=== PATIENT | male | born 1950 | race Caucasian/White ===

== ENCOUNTER 2019-08-14 00:38 | Outpatient (CLI) | payer MEDICARE, SELFPAY | END 2019-08-14 00:39 | disposition home or self-care (01) | LOC: ANHCOVIDDT 00:39 | PROVIDERS: PCP Family Medicine; Visit Provider Internal Medicine Gastroenterology | DX: Z01.818 Encounter for other preprocedural examination (principal); Z11.59 Encounter for screening for other viral diseases | CPT/HCPCS: 87635; C9803; U0003 ==

== ENCOUNTER 2019-08-17 01:37 | Day surgery (SDC) | payer MEDICARE, SELFPAY ==
[2019-08-12 10:39] VITALS: BMI 24.4
[2019-08-17 09:10] VITALS: BP 115/74; PULSE 75; RESP 16; TEMP 36.1; O2SAT 98; BMI 23.2
--- NOTE | 2019-08-17 09:21 | WPDANESEPPF ---
Anes - Initial Pre Proc Eval Procedure: Operation Date: 08/17/19 10:30 Proposed Procedures p Screening Colonoscopy - Valente Christian MD Date/Time: 08/17/19 09:21 Surgeon: Valente Christian MD Pre Op Diagnosis: Neoplasm Screening Patient Data Age: 69 Gender: M Height: 6 ft 1 in Weight: 79.8 kg Last Vital Signs Temp 36.1 C L 08/17/19 09:10 Pulse 75 08/17/19 09:10 Resp 16 08/17/19 09:10 BP 115/74 08/17/19 09:10 Pulse Ox 98 08/17/19 09:10 Allergies Allergy/AdvReac Type Severity Reaction Status Date / Time No Known Allergies Allergy Verified 08/17/19 09:09 Home Medications Medication Instructions Recorded Confirmed Type clopidogrel 75 mg tablet 75 mg PO DAILY 02/19/19 08/12/19 History rosuvastatin 20 mg tablet 20 mg PO DAILY 02/19/19 08/12/19 History levothyroxine 50 mcg tablet 50 mcg PO DAILY #90 tablet 05/28/19 08/12/19 Rx fluticasone propionate 50 2 spray INTRANASAL DAILY #16 ml 06/11/19 08/12/19 Rx mcg/actuation nasal spray,suspension albuterol sulfate 90 mcg/actuation See Rx Instructions INHALATION Q4H 06/15/19 08/12/19 Rx aerosol inhaler #6.7 gm aspirin 81 mg chewable tablet 81 mg PO DAILY 07/28/19 08/12/19 History glucos sul [id number]-C-Mn 1 cap PO DAILY 08/12/19 08/12/19 History [Glucosamine Chondroitin] Patient hx anesthesia problems: none Family hx anesthesia problems: none PMFSH Past Medical History Medical History Atherosclerotic heart disease of [place] coronary artery with other forms of angina pectoris Hypothyroidism Ischemic dilated cardiomyopathy (~2009) Nonrheumatic mitral (valve) insufficiency (~2009) Nonrheumatic tricuspid (valve) insufficiency (~2009) Other and unspecified hyperlipidemia Unspecified diastolic (congestive) heart failure (~2009) Surgical History Surgical History History of cholecystectomy (~03/2011) History of PTCA (~02/2010) 12/29/1997 @ 47 y/o LAD stent x1 11/08/2003 @ 53 y/o LAD stent x2 06/25/2007 @ 57 y/o PCI diagonal 05/21/2006 @ 56 years: PCI to LAD 10/23/2004 @ 54 years PTCA to OM 02/2010 :last stent 09/2016: PCI to LAD Dr. 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 Questions were solicited and answers provided to the satisfaction of the patient/family/POA.
[2019-08-17] MEDS: LACTATED RINGERS 1,000 ML 150 ML IV CONT (09:25)
--- NOTE | 2019-08-17 10:57 | WPDHPUPDATE1 ---
History and Physical Update Update Date/Time: 08/17/19 10:57 History and Physical has been reviewed, including an updated exam of the patient. There are NO changes in the patient's condition. Risks, benefits, and alternatives have been discussed and questions answered. Patient agrees to proceed with procedure.
[2019-08-17 11:21] VITALS: BP 102/67; PULSE 64; RESP 20; O2SAT 98
[2019-08-17 11:31] VITALS: BP 117/65; PULSE 62; RESP 16; O2SAT 98
[2019-08-17 11:39] VITALS: BP 112/68; PULSE 56; RESP 16; O2SAT 100
== END 2019-08-17 11:50 | disposition home or self-care (01) ==
PROVIDERS: PCP Family Medicine; Visit Provider Internal Medicine Gastroenterology
PROC: 0DJD8ZZ Inspection of Lower Intestinal Tract, Via Natural or Artificial Opening Endoscopic (ICD-10-PCS; CPT 45378; principal; 2019-08-17 10:30)
DX: Z12.11 Encounter for screening for malignant neoplasm of colon (principal); R19.5 Other fecal abnormalities; D12.2 Benign neoplasm of ascending colon; D12.4 Benign neoplasm of descending colon; K57.30 Diverticulosis of large intestine without perforation or abscess without bleeding; K64.8 Other hemorrhoids; I25.10 Atherosclerotic heart disease of native coronary artery without angina pectoris; E78.5 Hyperlipidemia, unspecified; I50.30 Unspecified diastolic (congestive) heart failure; I34.0 Nonrheumatic mitral (valve) insufficiency; I36.1 Nonrheumatic tricuspid (valve) insufficiency; I25.5 Ischemic cardiomyopathy; Z79.02 Long term (current) use of antithrombotics/antiplatelets; Z79.82 Long term (current) use of aspirin; Z95.5 Presence of coronary angioplasty implant and graft; Z87.891 Personal history of nicotine dependence
CPT/HCPCS: 45385; 88305; J2704; J7120

== ENCOUNTER 2020-05-16 19:31 | Observation (INO) | payer MEDICARE, SELFPAY ==
[2020-05-16] VITALS (9 sets, daily range): BP systolic 136–159; BP diastolic 79–106; PULSE 81–94; RESP 12–20; TEMP 36.4; O2SAT 95–100
--- NOTE | ~2020-05-16 | NM_ITS ---
EXAMINATION: NM kris stress w perfusion DATE: 05/17/2020 14:31 INDICATION: Coronary artery disease. Elevated troponins. TECHNIQUE: Rest images were obtained following intravenous administration of 7 mCi Tc99m tetrofosmin (Myoview). The patient was infused intravenously with Lexiscan (Regadenoson). Then, 21.2 mCi Tc99m te trofosmin (Myoview) was administered intravenously, and stress images were obtained. Data was reconst ructed into short axis and horizontal and vertical long axis SPECT images. Gated SPECT images were al so obtained. COMPARISON: None. FINDINGS: Moderate severity nonreversible perfusion defect consistent with infarct involving the inferior apica l,, lateral apical, mid anterolateral, inferolateral and inferior and basilar anterolateral inferolat eral and inferior segments. Additional mild nonreversible perfusion defect consistent with infarct in the mid anteroseptal and inferoseptal segments. Small region of mild reversible ischemia at the apex . There is normal left ventricular chamber size and wall motion. Mildly decreased left ventricular ej ection fraction which measures 41%. IMPRESSION: 1. Large nonreversible infarct involving the majority of the circumflex coronary artery vascular dist ribution and smaller amount of the right coronary artery vascular distribution as detailed above. 2. Small region of mild reversible ischemia at the apex. 3. Left ventricular ejection fraction measuring 41%. Reviewed, dictated and finalized at location A. ING OPERATOR IMPRESSION: 1. Large nonreversible infarct involving the majority of the circumflex coronar y artery vascular distribution and smaller amount of the right coronary artery vascular distribution as detailed above. 2. Small region of mild reversible ischemia at the apex. 3. Left ventricular ejection fraction measuring 41%.
--- NOTE | ~2020-05-16 | XR_ITS ---
EXAMINATION: XR chest 2V EXAM DATE: 05/16/2020 20:04 INDICATION: Chest pain in shoulders, weakness, shortness of breath. History of myocardial infarction. TECHNIQUE: Frontal and lateral projections of the chest obtained and reviewed. Comparison is made to prior examination from 04/27/2018. FINDINGS: Left anterior descending coronary artery stent. The lungs are clear. There are no pleural effusions. The cardiomediastinal silhouette is within normal limits. There is no pneumothorax susp ected. There are bony degenerative changes. IMPRESSION: No acute cardiopulmonary findings. Reviewed, dictated and finalized at location A. INSERTER
--- NOTE | 2020-05-16 19:34 | ECG_ITS ---
Measurements Intervals [place] Rate: 94 P: 64 HI: 166 QRS: -84 QRSD: 144 T: 28 QT: 365 QTc: 459 Interpretive Statements SINUS RHYTHM VENTRICULAR PREMATURE COMPLEXES RIGHT BUNDLE BRANCH BLOCK LEFT ANTERIOR FASCICULAR BLOCK CONSIDER INFERIOR INFARCT, AGE INDETERMINATE BASELINE ARTIFACT- V1-V2 ABNORMAL ECG Electronically Signed On 05-17-2020 7:03:06 COMPLAINT INSPECTOR by Hollis Reynoso D.O.
[2020-05-16 19:54] LABS: Basophils Absolute Auto 0.1 K/mm3 (0.0-0.1); Basophils Percent Auto 0.5 % (0.2-1.2); Eosinophils Absolute Auto 0.1 K/mm3 (0-0.3); Eosinophils Percent Auto 0.7 % (0-4.4); Hematocrit 43.8 % (42.0-52.0); Hemoglobin 14.9 g/dL (14.0-18.0); Immature Granulocyte Absolute 0.03 K/mm3 (0.00-0.031); Immature Granulocyte Percent A 0.3 % (0-0.5); Lymphocytes Absolute Auto 1.39 K/mm3 (0.9-3.2); Lymphocytes Percent Auto 14.7 % (18.3-44.2); Mean Corpuscular Volume 97.1 fl (80-100); Monocytes Absolute Auto 1.1 K/mm3 (0.1-0.6); Monocytes Percent Auto 11.8 % (2.6-8.5); Neutrophils Absolute Auto 6.8 K/mm3 (1.3-6.7); Platelet Count Result 179 k/mm3 (150-375); Red Blood Count 4.51 M/mm3 (4.6-6.20); Red Cell Distribution Width 13.2 % (11.5-14.5); White Blood Count 9.4 K/mm3 (4.5-10.0)
--- NOTE | 2020-05-16 20:00 | ED.CHESTPAIN ---
HPI - Chest Pain General Chief Complaint: Chest Pain Stated Complaint: tired, SOB, nausea Time Seen by Provider: 05/16/20 19:59 Source: patient and family Mode of arrival: ambulatory Limitations: no limitations History of Present Illness HPI narrative: 70-year-old male History of coronary artery disease and by his count 14 stents Patient has a new riding snowplow which he used this afternoon to clear his and, generously, several of his neighbors driveways This took him about an hour and 1/2 to 2 hours with a break or two included He did not have to do any walking or shoveling, but reports that turning the machine can be somewhat exertional and that of course he was out in the quite cold weather the whole time After finishing he was in the house and basically felt mildly short of breath, some vague mild tightness or discomfort in the chest, and a sense of overwhelming general fatigue Related Data Home Medications Medication Instructions Recorded Confirmed clopidogrel 75 mg tablet 75 mg PO DAILY 02/19/19 08/12/19 rosuvastatin 20 mg tablet 20 mg PO DAILY 02/19/19 08/12/19 aspirin 81 mg chewable tablet 81 mg PO DAILY 07/28/19 08/12/19 glucos sul [id number]-C-Mn 1 cap PO DAILY 08/12/19 08/12/19 [Glucosamine Chondroitin] Allergies Allergy/AdvReac Type Severity Reaction Status Date / Time No Known Allergies Allergy Verified 08/17/19 09:09 Review of Systems Review of Systems: All systems reviewed & are unremarkable except as noted in HPI and below Constitutional: Constitutional: Denies chills, Reports fatigue, Denies fever(s), Denies headache(s) and Reports weakness Eyes: Eyes: Reports no additional eye complaints and Denies change in vision ENT: Denies headache(s), Denies epistaxis, Denies nasal congestion and Denies sore throat Cardiovascular: Cardiovascular: Reports chest pain, Denies leg edema, Denies palpitations and Denies dyspnea Respiratory: Respiratory: Denies cough, Reports dyspnea and Denies wheezing Gastrointestinal: Gastrointestinal: Denies abdominal pain, Denies diarrhea, Denies nausea and Denies vomiting Genitourinary: Genitourinary: Denies hematuria, Denies dysuria and Denies urinary frequency Musculoskeletal: Musculoskeletal: Denies deformity, Denies arthralgias, Denies joint swelling, Denies muscle weakness and Denies numbness Integumentary/Breasts: Skin/Breast: Denies rash and Denies wounds Neurologic: Denies headache(s), Denies focal weakness, Denies numbness and Reports weakness Psychiatric: Psychiatric: Reports no additional psychiatric complaints Endocrine: Endocrine: Reports fatigue and Denies palpitations Hematologic/Lymphatic: Hematologic/Lymphatic: Denies easy bleeding and Denies easy bruising Allergic/Immunologic: Allergic/Immunologic: Denies wheezing PMFSH Past Medical History Medical History (Updated 05/17/20 @ 00:04 by Kan Cantor MD) Atherosclerotic heart disease of [place] coronary artery with other forms of angina pectoris Hypothyroidism Ischemic dilated cardiomyopathy (~2009) Nonrheumatic mitral (valve) insufficiency (~2009) Nonrheumatic tricuspid (valve) insufficiency (~2009) Other and unspecified hyperlipidemia Unspecified diastolic (congestive) heart failure (~2009) Surgical History Surgical History History of cholecystectomy (~03/2011) History of PTCA (~02/2010) 12/29/1997 @ 47 y/o LAD stent x1 11/08/2003 @ 53 y/o LAD stent x2 06/25/2007 @ 57 y/o PCI diagonal 05/21/2006 @ 56 years: PCI to LAD 10/23/2004 @ 54 years PTCA to OM 02/2010 :last stent 09/2016: PCI to LAD Dr. Santana Presence of coronary angioplasty implant and graft (~2009) Family History Family History Father Heart disease Mother Heart disease Sibling Heart disease Other Family history of coronary artery disease Social History Social History (Reviewed 08/16
[2020-05-16 20:04] LABS: Prothrombin Time 13.5 Seconds (11.1-14.7)
[2020-05-16 20:05] LABS: Partial Thromboplastin Time 27.3 SECONDS (22.3-36.8)
[2020-05-16 20:07] LABS: Anion Gap 7 mmol/L (8-16); Blood Urea Nitrogen 10 mg/dL (9-20); Calcium 9.5 mg/dL (8.4-10.2); Carbon Dioxide 30 mmol/L (22-30); Chloride 104 mmol/L (98-107); Estimated CRCL calculation 93 ml/min; Estimated Glomerular Filt Rate > 60; Glucose 98 mg/dL (75-110); Potassium 3.7 mmol/L (3.4-5.0); Sodium 141 mmol/L (137-145)
[2020-05-16 20:19] LABS: Troponin I 0.027 ng/mL (0.000-0.034)
--- NOTE | 2020-05-16 20:21 | PC.NURSE ---
Took patient 324mg of Aspirin. Per pt I took 8 of them before I came in
[2020-05-16 22:49] LABS: Troponin I 0.048 ng/mL (0.000-0.034)
--- NOTE | 2020-05-16 23:00 | PC.NURSE ---
Assumed care of Pt. report from Mayra RN
[2020-05-16] MEDS: ENOXAPARIN 80 MG/0.8 ML SYRINGE SUB-Q (23:19)
[2020-05-17] VITALS (11 sets, daily range): BP systolic 116–149; BP diastolic 73–95; PULSE 65–107; RESP 16–21; TEMP 35.8–36.6; O2SAT 97–98; BMI 25.6
--- NOTE | 2020-05-17 | ECHO_ITS ---
Patient Info Name: Venkat Aranda Age: 70 years : 1950 Gender: Male Ht: 73 in Wt: 194 lbs BSA: 2.14 m2 HR: 73 bpm BP: 135 / 83 mmHg Heart Rhythm: Sinus Rhythm Technical Quality: Good Exam Date: 05/17/2020 2:51 PM Exam Location: [facility] Pulmonary Patient Status: Outpatient Admit Date: 05/17/2020 Staff Ordering Physician: Marcelo Sen MD Open Tenter Operator: José Luis Huff, YUSUF, RT Attending Provider: Mason Vasquez MD Referring Physician: Francy JOSEPH; Exam Type: CA echo doppler color flow Study Info Indications I25.9 - Chronic ischemic heart disease, unspecified Complete two-dimensional, color flow and Doppler transthoracic echocardiogram is performed. Strain analysis performed. Summary 1. Complete two-dimensional, color flow and Doppler transthoracic echocardiogram is performed. 2. Left ventricular chamber dimension is mildly enlarged. 3. Left ventricular systolic function is mildly reduced, estimated at 40-45%. 4. There is mildly increased left ventricular wall thickness. 5. Global longitudinal strain is abnormal at -15 %. 6. The left ventricular diastolic function is grade I diastolic dysfunction. 7. The mid anteroseptal is akinetic. 8. The apex, inferior wall, mid inferoseptal, basal anteroseptal, and mid inferolateral wall are hypokinetic. 9. Strain analysis performed. 10. There is mild mitral valve regurgitation. Left Ventricle Left ventricular chamber dimension is mildly enlarged. Left ventricular systolic function is mildly reduced, estimated at 40-45%. There is mildly increased left ventricular wall thickness. The left ventricular diastolic function is grade I diastolic dysfunction. Global longitudinal strain is abnormal at -15 %. The mid anteroseptal is akinetic. The apex, inferior wall, mid inferoseptal, basal anteroseptal, and mid inferolateral wall are hypokinetic. All other elliott appear normal. Right Ventricle Right ventricular chamber dimension is normal. Right ventricular systolic function is normal. Left Atria Left atrial chamber dimension is normal. Right Atria Right atrial chamber dimension is normal. Atrial Septum Intact interatrial septum visualized by color flow imaging. Aortic Valve The aortic valve is trileaflet. There is mild aortic valve sclerosis. There is no aortic valve stenosis. There is trace aortic valve regurgitation. Pulmonic Valve The pulmonic valve is normal. There is no pulmonic valve stenosis. There is trace pulmonic regurgitation. Mitral Valve The mitral valve has normal leaflets. There is no mitral valve stenosis. There is mild mitral valve regurgitation. Tricuspid Valve The tricuspid valve leaflets are normal. There is no significant tricuspid valve stenosis. There is trace tricuspid valve regurgitation. Pericardium/Pleural The pericardium appears normal. There is no pericardial effusion. Inferior Vena Cava Dilated inferior vena cava with <50% collapse upon inspiration consistent with elevated right atrial pressure, 10 mmHg. Aorta The aortic root size at the sinus of Valsalva is normal. The prox ascending aorta size is normal. Left Ventricular Outflow Tract Name Value Normal LVOT 2D LVOT Diamet
--- NOTE | 2020-05-17 00:41 | PM.IMHP ---
H&P: HPI History of Present Illness Date/Time: 05/17/20 00:41 Chief Complaint: Generalized weakness++ Narrative: This is a 70 year old Caucsian male with known history of ischemic cardiomyopathy and CAD w/ 14 coronary artery stents placed in the past and presented to the hospital [facility] with a complaint of generalized fatigue, nausea and shoulder discomfort. The patient was riding his slowplow outside yesterday and when he was done he was walking back into the house when he started to feel very nauseated, extremely tired, short of breath, with bilateral shoulder discomfort. He believes his shoulders were hurting from steering the snowplow. He went inside and laid down and felt better when he woke up but still felt very weak. He clearly DENIES any CHEST PAIN and states that he only has had mild shoulder discomfort. He also denies any fever, chills, cough, wheezing, diaphoresis, abdominal pain, dysuria, hematuria, diarrhea, rectal bleeding, or LE swelling. The patient believes that he simply overexerted himself today. The patient was evaluated in the ER tonight and found to have a mildly elevated troponin of 0.048. ER provider has consulted Cardiology who has asked that we admit the patient so they can evaluate him. The patient was anticoagulated with Lovenox per Cardiology tonight. No other complaints at this time. The patient normally gets his cardiology care at [facility]. Review of Systems Review of Systems: All systems reviewed & are unremarkable except as noted in HPI and below PMFSH Past Medical History Medical History Atherosclerotic heart disease of [place] coronary artery with other forms of angina pectoris Hypothyroidism Ischemic dilated cardiomyopathy (~2009) Nonrheumatic mitral (valve) insufficiency (~2009) Nonrheumatic tricuspid (valve) insufficiency (~2009) Other and unspecified hyperlipidemia Unspecified diastolic (congestive) heart failure (~2009) Surgical History Surgical History History of cholecystectomy (~03/2011) History of PTCA (~02/2010) 12/29/1997 @ 47 y/o LAD stent x1 11/08/2003 @ 53 y/o LAD stent x2 06/25/2007 @ 57 y/o PCI diagonal 05/21/2006 @ 56 years: PCI to LAD 10/23/2004 @ 54 years PTCA to OM 02/2010 :last stent 09/2016: PCI to LAD Dr. 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 Gender identity (if verbalized by the patient): Male Spiritual care concerns: No Agree to blood products: Yes Meds Home Medications and Allergies Home Medications Medication Instructions Recorded Confirmed Type clopidogrel 75 mg tablet 75 mg PO DAILY 02/19/19 08/12/19 History rosuvastatin 20 mg tablet 20 mg PO DAILY 02/19/19 08/12/19 History fluticasone propionate 50 2 spray INTRANASAL DAILY #16 ml 06/11/19 08/12/19 Rx mcg/actuation nasal spray,suspension albuterol sulfate 90 mcg/actuation See Rx Instructions INHALATION Q4H 06/15/19 08/12/19 Rx aerosol inhaler #6.7 gm aspirin 81 mg chewable tablet 81 mg PO DAILY 07/28/19 08/12/19 History glucos sul [id number]-[id number]-C-Mn 1 cap PO DAILY 08/12/19 08/12/19 History [Glucosamine Chondroitin] levothyroxine 50 mcg tablet 50 mcg PO DAILY #90 tablet 12/27/19 Rx li
--- NOTE | 2020-05-17 00:52 | ADMGEN ---
This patient, Venkat Aranda, was admitted to IMU Room 231-01. Patient/family oriented to hospital policies and general routines including ID bracelet, bed and alarms, visiting hours, pain management, procedures, bathroom and other care routines, personal items, smoking policy, room service/diet, and visiting hours. Information on how to activate the Rapid Response Team has been discussed. Patient/Family are encouraged to report perceived risks to care and to ask questions if they do not understand what they are told or what they should do.
--- NOTE | 2020-05-17 00:59 | ECG_ITS ---
Measurements Intervals [place] Rate: 81 P: 71 SC: 155 QRS: -43 QRSD: 153 T: 50 QT: 414 QTc: 483 Interpretive Statements SINUS RHYTHM VENTRICULAR PREMATURE COMPLEXES LEFT AXIS DEVIATION RIGHT BUNDLE BRANCH BLOCK ABNORMAL ECG Electronically Signed On 05-17-2020 7:07:03 CAN DRYER by Hollis Reynoso D.O.
[2020-05-17 02:36] LABS: Troponin I 0.036 ng/mL (0.000-0.034)
[2020-05-17] MEDS: CLOPIDOGREL BISULFATE 75 MG TABLET PO (09:16)
[2020-05-17] MEDS: LEVOTHYROXINE SODIUM 50 MCG TABLET PO (09:16)
[2020-05-17] MEDS: ROSUVASTATIN 10 MG TABLET 20 MG PO (09:17)
[2020-05-17] MEDS: ASPIRIN 81 MG CHEWABLE TABLET PO (09:17)
--- NOTE | 2020-05-17 11:21 | PM.CNCAR ---
Assessment and Plan Assessment and plan (1) Ischemic dilated cardiomyopathy: Onset Date: ~2009 Code(s): I25.5 - Ischemic cardiomyopathy; I42.0 - Dilated cardiomyopathy Status: Acute Assessment and Plan: Will order 2D echocardiogram Doppler. Previous echocardiogram showed ejection fraction 35-40%. (2) Nonrheumatic tricuspid (valve) insufficiency: Onset Date: ~2009 Code(s): I36.1 - Nonrheumatic tricuspid (valve) insufficiency Status: Acute (3) Atherosclerotic heart disease of [place] coronary artery with other forms of angina pectoris: Code(s): I25.118 - Atherosclerotic heart disease of [place] coronary artery with other forms of angina pectoris Status: Acute Assessment and Plan: Multiple stents in the past. Most recent PCI in 2018 to the LAD and ramus. Continue dapt, statin. Enoxaparin to be given. Will add metoprolol as detailed below. (4) Elevated troponin: Code(s): R77.8 - Other specified abnormalities of plasma proteins Status: Acute Assessment and Plan: Probably related to a small non ST elevation myocardial infarction but uncertain if this is from a true plaque rupture or a type 2 infarction from significant hypertension that he presented with in the emergency department. Lovenox 1 mg per kg subcu x1. Continue aspirin and clopidogrel. Will add metoprolol 25 mg p.o. b.i.d. and continue statin. I did have a conversation with the patient regarding proceeding with a coronary angiogram to define his anatomy verses a symptom limited non exercise stress test in the form of a Lexiscan myocardial perfusion study. If there is a small defect, will likely proceed with medical management let him go home and follow up with his primary line staker Dr. Santana. If however he has a moderate or large ischemic defect, he will be capped and an angiogram performed here. (5) Nonrheumatic mitral (valve) insufficiency: Onset Date: ~2009 Code(s): I34.0 - Nonrheumatic mitral (valve) insufficiency Status: Acute Assessment and Plan: Echocardiogram is ordered (6) Hyperlipidemia: Qualifiers: Hyperlipidemia type: unspecified Qualified Code(s): E78.5 - Hyperlipidemia, unspecified Code(s): E78.5 - Hyperlipidemia, unspecified Status: Chronic Assessment and Plan: Continue statin History of Present Illness History of Present Illness Consult date/time: 05/17/20 11:21 Requesting physician: Kan Cantor MD Consult reason: chest pain Reason For Visit: cad, cp, elevated troponin Narrative: Date of service 05/17/2020 History: Patient 70-year-old male who has history of ischemic cardiomyopathy and coronary disease. He follows with Dr. Santana at [facility]. He reportedly has 14 stents. Details of this are not known however. He presented to hospital yesterday after having some significant weakness. Patient was outside on personal snow plow and was outside for significant period time. Whenever he parked the snow plow in the barn and walk back to the house he started develop some significant shortness of breath, extreme fatigue and tiredness. By the time he went inside and sat down his shortness of breath improved but he started developed bilateral shoulder pain. He states that the soreness in his shoulders could of been using the snow plow but did not have power steering. Regardless though his soreness symptoms in the shoulders lasted about an hour to an hour and a half and then gradually subsided. Because of some lingering symptoms of feeling tired and weak, he came to the hospital for further evaluation. He was in a normal rhythm with a right bundle-branch block and left anterior fascicular block. Otherwise he had been feeling well and denies any chest pain, other shortness of breath, syncope, presyncope, paroxysmal nocturnal dyspnea, orthopnea, edema palpitations. Last echocardiogram showed ejection fraction 35-40% with s
--- NOTE | 2020-05-17 11:45 | PCOTNOTE ---
Patient evaluated by PT this AM. PT reports that patient is functioning independently and safely. She states that OT evaluation is not recommended as the patient is functioning at his baseline and no skilled therapy is needed during this admission. Called Dr. Rico to inform her of this and she is in agreement with discharging the patient from OT. D/C orders have been entered.
--- NOTE | 2020-05-17 11:54 | EST_ITS ---
Patient Info Name: Venkat Aranda Age: 70 years : 1950 Gender: Male Ht: 73 in Wt: 194 lbs BSA: 2.14 m2 Exam Date: 05/17/2020 1:20 PM Exam Location: [facility] Stress Patient Status: Inpatient Admit Date: 05/17/2020 Staff Ordering Physician: Marcelo Sen MD Attending Provider: Mason Vasquez MD Exercise Technologist: José Luis Huff RDCS, RT Exercise Physician: Marcelo Sen MD Exam Type: CA stress kris w NM Study Info A regadenoson stress test was performed. Summary 1. Please correlate with nuclear medicine images, reported separately. 2. No abnormal ST-T wave changes with lexiscan. Protocol: Lexiscan Stress ECG Details Stage: REST Duration (min): 3 min : 24 sec HR (bpm): 76 SBP (mmHg): 135 DBP (mmHg): 83 Stage: REST Duration (min): 7 min : 53 sec HR (bpm): 82 SBP (mmHg): 135 DBP (mmHg): 83 Stage: STAGE 1 Duration (min): 1 min : 0 sec HR (bpm): 95 SBP (mmHg): 139 DBP (mmHg): 83 Stage: RECOVERY Duration (min): 1 min : 0 sec HR (bpm): 102 SBP (mmHg): 139 DBP (mmHg): 83 Stage: RECOVERY Duration (min): 2 min : 0 sec HR (bpm): 98 SBP (mmHg): 139 DBP (mmHg): 83 Stage: RECOVERY Duration (min): 3 min : 0 sec HR (bpm): 96 SBP (mmHg): 136 DBP (mmHg): 76 Stage: RECOVERY Duration (min): 4 min : 0 sec HR (bpm): 88 SBP (mmHg): 136 DBP (mmHg): 76 Stage: RECOVERY Duration (min): 5 min : 0 sec HR (bpm): 97 SBP (mmHg): 135 DBP (mmHg): 80 Stage: RECOVERY Duration (min): 5 min : 4 sec HR (bpm): 94 SBP (mmHg): 135 DBP (mmHg): 80 Rest HR: 82 bpm Peak HR: 105 bpm Rest Sys BP: 135 mmHg Peak Sys BP: 139 mmHg Max Pred HR: 148 bpm % Max Pred HR: 71 % Target HR: 126 bpm Max RPP: 14,595 bpm*mmHg Target HR Summary: Hemodynamic response to exercise was normal BP Response: Normal blood pressure response Termination Reason: Completed protocol Cardiac Symptoms: None Total Time: 1 min : 0 sec Rest Montalvo BP: 83 mmHg Peak Montalvo BP: 83 mmHg Total Dose: 0.4 mg Resting ECG Normal sinus rhythm. Right bundle branch block. LAFB, PVC. Stress ECG No abnormal ST/T wave changes with exercise. Arrhythmias Frequent PVCs. Report Signatures
[2020-05-17] MEDS: METOPROLOL TARTRATE 25 MG TABLET PO (14:19)
--- NOTE | 2020-05-17 16:45 | PM.DS ---
DS: Admitting Diagnosis Admitting Diagnosis Admitting Diagnosis: (1) Generalized weakness: (2) Elevated troponin: (3) CAD (coronary artery disease): (4) Hypothyroidism: (5) Unspecified diastolic (congestive) heart failure: (6) Hyperlipidemia: DS: Summary Hospital Course Hospital Course: This is a 70 year old male with known history of ischemic cardiomyopathy and CAD w/ 14 coronary artery stents placed in the past and presented to the hospital with a complaint of generalized fatigue, nausea and shoulder discomfort. 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 He went inside and laid down and felt better when he woke up but still felt very weak. He denies any chest pain and states that he only has had mild shoulder discomfort. He also denied any fever, chills, cough, wheezing, diaphoresis, abdominal pain, dysuria, hematuria, diarrhea, rectal bleeding, or LE swelling. The patient believes that he overworked himself. The patient was evaluated in the ER and found to have a mildly elevated troponin of 0.048. ER provider consulted Cardiology . The patient was anticoagulated with Lovenox per Cardiology . The patient normally gets his cardiology care at [facility]. Patient was admitted to telemetry unit for close monitoring, further evaluation and treatment. A Cardiology consult was obtained. Patient underwent Lexiscan stress test Above study was low yielding and patient was discharged home and will follow up in the outpatient setting with his usual Hot Roll Laminator No events took place during this admission Going home patient was started on Metoprolol and Nitroglycerin Time Spent with Patient Time attestation: Total time spent providing and/or coordinating discharge services: Exam Const: General: cooperative, comfortable, well developed, alert and awake Nutritional Appearance: average body habitus Orientation/consciousness: patient oriented x3 HENMT: Head: normocephalic Ears: hearing grossly normal bilaterally General nose exam: Normal external nose present Face and sinus: normal facial exam Eyes: Pupils: Equal, round and reactive pupils present EOM: EOMs intact bilaterally Neck: Neck: no lymphadenopathy and no JVD Lymphatic: no lymphadenopathy noted Resp: Effort & Inspection: normal respiratory effort and able to speak in complete sentences Auscultation: clear to auscultation bilaterally Cardio: Jugular venous distension: no JVD Rate: regular rate Rhythm: regular rhythm GI: GI Palp: Yes Soft to palpation and Yes No hepatosplenomegaly present Skin: Rashes: no rashes Neuro: General: patient oriented x3, no focal motor deficits and CN's II-XI intact bilaterally Cranial nerves: Yes CN's II-XII intact bilaterally Cognition (Neuro): normal cognition Motor exam (neuro): 5/5 motor strength present throughout DS: Data Data Completed and Pending Labs on day of discharge: Labs from last 24 hours 05/17/20 05/16/20 05/16/20 01:41 22:16 19:44 WBC RBC Hgb Hct MCV MCH MCHC RDW Plt Count MPV Immature Gran % (Auto) Neut % (Auto) Lymph % (Auto) [place] % (Auto) Eos % (Auto) Baso % (Auto) Lymph # (Auto) [place] # (Auto) Eos # (Auto) Baso # (Auto) Abs Immat Gran (auto) Absolute Neuts (auto) Absolute Nucleated RBC Nucleated RBC % PT INR APTT Sodium 141 Potassium 3.7 Chloride 104 Carbon Dioxide 30 Anion Gap 7 L BUN 10 Creatinine 0.70 Estim Creat Clear Calc 93 Estimated GFR > 60 Glucose 98 Calcium 9.5 Troponin I 0.036 H* D 0.048 H* D 0.027 05/16/20 05/16/20 19:44 19:44 WBC 9.4 RBC 4.51 L Hgb 14.9 Hct
== END 2020-05-17 17:55 | disposition home or self-care (01) ==
LOC: ANHED 05-17 00:04 → ANHIMU 05-17 09:39
PROVIDERS: Emergency Medicine; Admitting Provider Family Medicine; Emergency Provider Emergency Medicine; PCP Family Medicine; Visit Provider Internal Medicine
DX: R53.1 Weakness (principal); R77.8 Other specified abnormalities of plasma proteins; M25.512 Pain in left shoulder; M25.511 Pain in right shoulder; I50.32 Chronic diastolic (congestive) heart failure; I25.10 Atherosclerotic heart disease of native coronary artery without angina pectoris; I25.5 Ischemic cardiomyopathy; I42.0 Dilated cardiomyopathy; I34.0 Nonrheumatic mitral (valve) insufficiency; I36.1 Nonrheumatic tricuspid (valve) insufficiency; E03.9 Hypothyroidism, unspecified; E78.5 Hyperlipidemia, unspecified; R06.02 Shortness of breath; Z87.891 Personal history of nicotine dependence; Z95.5 Presence of coronary angioplasty implant and graft
CPT/HCPCS: 36415; 71046; 78452; 80048; 84484; 85025; 85610; 85730; 93005; 93017; 93306; 96372; 97161; 99285; A9270; A9502; G0378; J1650; J2785

== ENCOUNTER 2020-06-22 11:34 | Outpatient (CLI) | payer MEDICARE, SELFPAY ==
[2020-06-22 12:19] LABS: Anion Gap 3 mmol/L (8-16); Blood Urea Nitrogen 12 mg/dL (9-20); Calcium 9.1 mg/dL (8.4-10.2); Carbon Dioxide 34 mmol/L (22-30); Chloride 103 mmol/L (98-107); Estimated Glomerular Filt Rate > 60; Glucose 104 mg/dL (75-110); Potassium 3.9 mmol/L (3.4-5.0); Sodium 140 mmol/L (137-145)
== END 2020-06-22 11:35 | disposition home or self-care (01) ==
DX: R60.9 Edema, unspecified (principal)
CPT/HCPCS: 36415; 80048

== ENCOUNTER 2020-11-30 08:38 | Outpatient (CLI) | payer MEDICARE, SELFPAY ==
[2020-11-30 08:57] LABS: Basophils Percent Auto 0.5 % (0.2-1.2); Eosinophils Absolute Auto 0.2 K/mm3 (0-0.3); Eosinophils Percent Auto 1.9 % (0-4.4); Hematocrit 42.3 % (42.0-52.0); Hemoglobin 13.9 g/dL (14.0-18.0); Immature Granulocyte Absolute 0.03 K/mm3 (0.00-0.031); Immature Granulocyte Percent A 0.4 % (0-0.5); Lymphocytes Absolute Auto 1.23 K/mm3 (0.9-3.2); Lymphocytes Percent Auto 15.7 % (18.3-44.2); Mean Corpuscular HGB Conc 32.9 g/dl (32-36); Mean Corpuscular Hemoglobin 32.6 pg (26-34); Mean Corpuscular Volume 99.1 fl (80-100); Mean Platelet Volume 9.2 fl (7.4-10.4); Monocytes Absolute Auto 0.9 K/mm3 (0.1-0.6); Monocytes Percent Auto 11.3 % (2.6-8.5); Neutrophils Absolute Auto 5.5 K/mm3 (1.3-6.7); Neutrophils Percent Auto 70.2 % (45.5-73.1); Platelet Count Result 185 k/mm3 (150-375); Red Blood Count 4.27 M/mm3 (4.6-6.20); Red Cell Distribution Width 13.6 % (11.5-14.5); White Blood Count 7.8 K/mm3 (4.5-10.0)
[2020-11-30 09:07] LABS: Alanine Aminotransferase 18 U/L (4-50); Albumin Level 4.2 g/dL (3.5-5.1); Alkaline Phosphatase 76 U/L (38-126); Anion Gap 6 mmol/L (8-16); Aspartate Amino Transferase 28 U/L (17-59); Bilirubin,Total 0.8 mg/dL (0.2-1.3); Blood Urea Nitrogen 10 mg/dL (9-20); Calcium 9.1 mg/dL (8.4-10.2); Carbon Dioxide 29 mmol/L (22-30); Chloride 105 mmol/L (98-107); Cholesterol 98 mg/dL (0-200); Estimated Glomerular Filt Rate > 60; Glucose 107 mg/dL (65-110); HDL Direct 25 mg/dL; Potassium 4.1 mmol/L (3.4-5.0); Sodium 140 mmol/L (137-145); Triglycerides 142 mg/dL (<150)
[2020-11-30 09:18] LABS: LDL Cholesterol Direct 40 mg/dL
[2020-11-30 09:38] LABS: Prostate Specific Antigen 1.1 ng/mL (< OR = 4.0)
[2020-11-30 10:53] LABS: Vitamin D 25 Hydroxy 58.7 ng/mL
[2020-11-30 12:40] LABS: Free T4 Free Thyroxine Reflex 0.91 ng/dL (0.78-2.19)
[2020-11-30 17:29] LABS: Total Triiodothyronine (T3) 1.47 NG/ML (0.97-1.69)
== END 2020-11-30 08:39 | disposition home or self-care (01) ==
PROVIDERS: PCP Family Medicine; Visit Provider Family Medicine
DX: Z12.5 Encounter for screening for malignant neoplasm of prostate (principal); E03.9 Hypothyroidism, unspecified; I10 Essential (primary) hypertension; E55.9 Vitamin D deficiency, unspecified; Z00.00 Encounter for general adult medical examination without abnormal findings
CPT/HCPCS: 36415; 80053; 80061; 82306; 84153; 84439; 84443; 84480; 85025; G0103

== ENCOUNTER 2021-05-03 23:53 | Emergency (ER) | payer MEDICARE, SELFPAY ==
--- NOTE | ~2021-05-03 | XR_ITS ---
EXAMINATION: XR abdomen obstructive series DATE: 05/04/2021 00:41 INDICATION: Nausea. TECHNIQUE: Upright and supine views of the abdomen on 3 radiographs were obtained. COMPARISON: None. FINDINGS: There are no dilated loops of bowel. There is a moderate volume of stool in the colon. No f ree intraperitoneal gas. Surgical clips in the right upper quadrant are likely from cholecystectomy. IMPRESSION: 1. Normal bowel gas pattern. Reviewed, dictated and finalized at location E. ORATE SALES MANAGER
--- NOTE | ~2021-05-03 | XR_ITS ---
EXAMINATION: XR chest 2V DATE: 05/04/2021 00:41 INDICATION: Generalized chest pain. TECHNIQUE: Frontal and lateral views of the chest were obtained. COMPARISON: 2 views 09/13/2020 FINDINGS: The chest demonstrates clear lungs without pneumonia, pleural effusion, or pneumothorax. Th e heart size is normal. IMPRESSION: 1. No acute cardiopulmonary disease. Reviewed, dictated and finalized at location E. ILE FARMER
[2021-05-03 23:56] VITALS: BP 146/87; PULSE 71; RESP 18; TEMP 36.9; O2SAT 99
--- NOTE | 2021-05-04 00:13 | ECG_ITS ---
Measurements Intervals [place] Rate: 54 P: 49 [place]: 159 QRS: -34 QRSD: 173 T: 22 QT: 465 QTc: 444 Interpretive Statements SINUS BRADYCARDIA LEFT AXIS DEVIATION RIGHT BUNDLE BRANCH BLOCK BASELINE ARTIFACT- I, II, III, AVR, AVL, AVF, V1-V6 ABNORMAL ECG Electronically Signed On 05-04-2021 6:49:29 BAG WASHER by Hollis Reynoso D.O.
--- NOTE | 2021-05-04 00:16 | ED.GENADULT ---
HPI - General Adult General Chief complaint: Nausea/Vomiting/Diarrhea Stated complaint: nausea Time Seen by Provider: 05/04/21 00:04 History of Present Illness HPI narrative: 71-year-old male presented emerge department for evaluation of an uneasy feeling in his stomach . Patient states after being out in the cold this morning he had an uneasy feeling in his stomach. Patient does describe it as nausea as well. Patient denied any associated chest pain or shortness of breath. Patient has not had any emesis. Patient denies any change in bowels. Patient does have a significant cardiac history but denies any chest pain with this. Patient states he did have an uneasy feeling in his chest as well . Related Data Home Medications Medication Instructions Recorded Confirmed clopidogrel 75 mg tablet 75 mg PO DAILY 02/19/19 04/19/21 fluticasone propionate 2 spray INTRANASAL DAILY PRN 05/17/20 04/19/21 furosemide 40 mg tablet 40 mg PO QAM 10/17/20 04/19/21 glucosamine sulf dipot 1 cap PO DAILY 10/17/20 04/19/21 chlr,msm,chond 550 mg-C 30 mg-kailee 1 mg capsule nebivolol 5 mg tablet 5 mg PO DAILY 10/17/20 04/19/21 triamcinolone acetonide 0.1 % 1 applic TOPICAL BID PRN 10/17/20 10/17/20 topical cream rosuvastatin 20 mg tablet 20 mg PO QHS tablet 11/27/20 04/19/21 Allergies Allergy/AdvReac Type Severity Reaction Status Date / Time No Known Allergies Allergy Verified 04/19/21 14:04 Review of Systems Review of Systems: CONSTITUTIONAL: Denies fever, chills, or sweats. EYES: Denies visual changes, redness, or discharge. ENT: Denies rhinorrhea, congestion, sore throat, or otalgia. CARDIOVASCULAR: Denies chest pain, palpitations, or edema. RESPIRATORY: Denies cough or dyspnea. GASTROINTESTINAL: Describes nausea and an uneasy feeling in his stomach, states his stomach has been rolling . GENITOURINARY: Has been having hematuria SKIN: Denies rash or itching. MUSCULOSKELETAL: Denies back pain, joint pain, or myalgia. NEUROLOGIC: Denies headache, numbness, or weakness. PSYCHIATRIC: Denies anxiety or depression. [facility] Past Medical History Medical History Environmental allergies Essential (primary) hypertension History of COVID-19 02/2020 Hypothyroidism Ischemic dilated cardiomyopathy (~2009) Nonrheumatic mitral (valve) insufficiency (~2009) Nonrheumatic tricuspid (valve) insufficiency (~2009) Positive colorectal cancer screening using DNA-based stool test Unspecified diastolic (congestive) heart failure (~2009) Surgical History Surgical History History of cholecystectomy (~03/2011) History of PTCA (~02/2010) 12/29/1997 @ 47 y/o LAD stent x1 11/08/2003 @ 53 y/o LAD stent x2 06/25/2007 @ 57 y/o PCI diagonal 05/21/2006 @ 56 years: PCI to LAD 10/23/2004 @ 54 years PTCA to OM 02/2010 :last stent 09/2016: PCI to LAD Dr. 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 HEAD: normocephalic, atraumatic. EYES: PERRLA/EOMI, conjunctivae clear. NOSE: Normal no drainage NECK: Supple. No adenopathy, no masses. RESPIRATORY:
[2021-05-04] MEDS: ONDANSETRON INJ 4 MG/2 ML VIAL IV PUSH (00:29)
[2021-05-04 00:45] LABS: Alanine Aminotransferase 22 U/L (4-50); Alkaline Phosphatase 62 U/L (38-126); Anion Gap 3 mmol/L (8-16); Aspartate Amino Transferase 29 U/L (17-59); Bilirubin,Total 0.4 mg/dL (0.2-1.3); Blood Urea Nitrogen 10 mg/dL (9-20); Calcium 8.8 mg/dL (8.4-10.2); Carbon Dioxide 27 mmol/L (22-30); Chloride 108 mmol/L (98-107); Estimated CRCL calculation 81 ml/min; Estimated Glomerular Filt Rate > 60; Glucose 121 mg/dL (65-110); Lipase 126 U/L (23-300); Potassium 3.7 mmol/L (3.4-5.0); Sodium 138 mmol/L (137-145)
[2021-05-04 00:51] LABS: Basophils Absolute Auto 0.1 K/mm3 (0.0-0.1); Basophils Percent Auto 0.7 % (0.2-1.2); Eosinophils Absolute Auto 0.2 K/mm3 (0-0.3); Eosinophils Percent Auto 2.8 % (0-4.4); Hematocrit 39.7 % (42.0-52.0); Hemoglobin 13.3 g/dL (14.0-18.0); Immature Granulocyte Absolute 0.03 K/mm3 (0.00-0.031); Immature Granulocyte Percent A 0.4 % (0-0.5); Lymphocytes Absolute Auto 1.33 K/mm3 (0.9-3.2); Lymphocytes Percent Auto 19.9 % (18.3-44.2); Mean Corpuscular HGB Conc 33.5 g/dl (32-36); Mean Corpuscular Hemoglobin 33.4 pg (26-34); Mean Corpuscular Volume 99.7 fl (80-100); Monocytes Absolute Auto 0.9 K/mm3 (0.1-0.6); Monocytes Percent Auto 13.7 % (2.6-8.5); Neutrophils Absolute Auto 4.2 K/mm3 (1.3-6.7); Neutrophils Percent Auto 62.5 % (45.5-73.1); Platelet Count Result 177 k/mm3 (150-375); Red Blood Count 3.98 M/mm3 (4.6-6.20); Red Cell Distribution Width 13.5 % (11.5-14.5); White Blood Count 6.7 K/mm3 (4.5-10.0)
[2021-05-04 00:56] LABS: Troponin I < 0.012 ng/mL (0.000-0.034)
[2021-05-04 01:51] VITALS: BP 144/93; PULSE 57; RESP 12; O2SAT 99
[2021-05-04 03:31] VITALS: BP 131/77; PULSE 62; RESP 14; O2SAT 97
[2021-05-04 03:56] LABS: Troponin I < 0.012 ng/mL (0.000-0.034)
[2021-05-04 04:14] VITALS: BP 116/65; PULSE 59; RESP 18; O2SAT 96
== END 2021-05-04 04:17 | disposition home or self-care (01) ==
PROVIDERS: Emergency Medicine; Emergency Provider Emergency Medicine; PCP Family Medicine
DX: R11.0 Nausea (principal); I25.5 Ischemic cardiomyopathy; I34.0 Nonrheumatic mitral (valve) insufficiency; I36.1 Nonrheumatic tricuspid (valve) insufficiency; I50.9 Heart failure, unspecified; I11.0 Hypertensive heart disease with heart failure; E03.9 Hypothyroidism, unspecified; Z86.16 Personal history of COVID-19; Z95.5 Presence of coronary angioplasty implant and graft; F17.210 Nicotine dependence, cigarettes, uncomplicated; R00.1 Bradycardia, unspecified; I45.10 Unspecified right bundle-branch block
CPT/HCPCS: 36415; 71046; 74019; 80053; 83690; 84484; 85025; 93005; 96374; 99284; J2405

== ENCOUNTER 2021-06-10 04:16 | Emergency (ER) | payer MEDICARE, SELFPAY ==
[2021-06-10] VITALS (19 sets, daily range): BP systolic 99–131; BP diastolic 59–86; PULSE 52–71; RESP 10–25; TEMP 36.7; O2SAT 95–100
--- NOTE | ~2021-06-10 | CT_ITS ---
EXAMINATION: CT abdomen pelvis w con DATE: 06/10/2021 07:04 INDICATION: Nausea. TECHNIQUE: Computed tomography (CT) of the abdomen and pelvis was performed with 100 mL Omnipaque 350 intravenous contrast. Automated exposure control and iterative reconstruction technique were employe d. The dose-length product was 619.08 mGy-cm. COMPARISON: CT pelvis 11/17/2015 FINDINGS: The visualized portions of the lung bases demonstrate mild atelectasis. No pleural effusion . There is left ventricular enlargement of the heart with old infarcts. There are coronary artery marty cifications. No pericardial effusion. There are cysts in the liver measuring up to 2.2 cm. There are changes of cholecystectomy. The spleen, pancreas, adrenal glands, and kidneys are normal. The prostat e is mildly enlarged. There is diverticulosis of the colon without evidence of diverticulitis. There are no dilated loops of bowel. The appendix is normal. There are no pathologically enlarged lymph nod es. There is no free intraperitoneal fluid. There is moderate lower lumbar spondylosis. There are hem angiomas in L4 and L5 vertebral bodies. IMPRESSION: 1. No etiology for the patient's symptoms. Reviewed, dictated and finalized at location A.
--- NOTE | 2021-06-10 04:37 | ECG_ITS ---
Measurements Intervals [place] Rate: 57 P: 65 [place]: 168 QRS: -58 QRSD: 150 T: 27 QT: 461 QTc: 452 Interpretive Statements SINUS BRADYCARDIA RIGHT BUNDLE BRANCH BLOCK [120+ ms QRS DURATION, UPRIGHT V1, 40+ ms S IN I/aVL/V4/V5/V6] LEFT ANTERIOR FASCICULAR BLOCK [QRS AXIS <= -45, QR IN I, RS IN II] COMPARED TO ECG 05/04/2021 00:22:51, NO SIGNIFICANT CHANGE Electronically Signed On 06-10-2021 16:44:29 CDT by Kirsty Anderson M.D.
--- NOTE | 2021-06-10 04:39 | ED.GENADULT ---
HPI - General Adult General Chief complaint: Nausea/Vomiting/Diarrhea <DO Ellen Morin Last Filed: 06/10/21 04:47> Stated complaint: High bp, not feeling good <DO Ellen Morin Last Filed: 06/10/21 04:47> Time Seen by Provider: 06/10/21 04:18 <Kwaku Lazo DO - Last Filed: 06/10/21 04:47> Source: RN notes reviewed <DO Ellen Morin Last Filed: 06/10/21 04:47> History of Present Illness HPI narrative: Patient presents to emergency department from home for weakness and nausea. Patient states symptoms been ongoing for approximately 12 hours he states he feels generally weak and has an uneasy feeling in his stomach like nausea he states at home his blood pressures are high as well with a blood pressure in 160/90 in the problem, the emergency department for further evaluation as he has a history of 15 stents and is followed by cardiology at [facility] he denies any fevers or chills, chest pain, shortness of breath, abdominal pain, vomiting diarrhea or any other symptoms <DO Ellen Morin Last Filed: 06/10/21 04:47> Related Data Home medications: Home Medications Medication Instructions Recorded Confirmed clopidogrel 75 mg tablet 75 mg PO DAILY 02/19/19 05/28/21 fluticasone propionate 2 spray INTRANASAL DAILY PRN 05/17/20 05/28/21 furosemide 40 mg tablet 40 mg PO QAM 10/17/20 05/28/21 nebivolol 5 mg tablet 5 mg PO DAILY 10/17/20 05/28/21 triamcinolone acetonide 0.1 % 1 applic TOPICAL BID PRN 10/17/20 05/28/21 topical cream rosuvastatin 20 mg tablet 20 mg PO QHS tablet 11/27/20 05/28/21 glucosamine sulf dipot 2 cap PO DAILY cap 05/28/21 05/28/21 chlr,msm,chond 550 mg-C 30 mg-kailee 1 mg capsule levothyroxine 50 mcg tablet 50 mcg PO DAILY tablet 05/28/21 05/28/21 <DO Ellen Morin Last Filed: 06/10/21 04:47> Allergies/adverse reactions: Allergies Allergy/AdvReac Type Severity Reaction Status Date / Time No Known Allergies Allergy Verified 05/28/21 09:34 <Kwaku Lazo DO - Last Filed: 06/10/21 04:47> Review of Systems Review of Systems: Gen.: Denies fevers or chills ENT: Denies congestion Respiratory: Denies shortness of breath or cough CV: Denies chest pain or palpitations GI: Denies abdominal pain, vomiting or diarrhea. Reports nausea denies burning, urgency, frequency or hematuria Musculoskeletal: Denies back pain or muscle pain Neuro: Reports weakness Skin: Denies rash Except as documented, all other systems reviewed and negative <Kwaku Lazo DO - Last Filed: 06/10/21 04:47> [facility] Past Medical History Medical History: Medical History Environmental allergies Essential (primary) hypertension Fatty liver History of COVID-19 02/2020, 05/2021 Hypothyroidism Ischemic dilated cardiomyopathy (~2009) Nonrheumatic mitral (valve) insufficiency (~2009) Nonrheumatic tricuspid (valve) insufficiency (~2009) Positive colorectal cancer screening using DNA-based stool test Unspecified diastolic (congestive) heart failure (~2009) <Kwaku Lazo DO - Last Filed: 06/10/21 04:47> Surgical History Surgical History: Surgical History History of cholecystectomy (~03/2011) History of PTCA (~02/2010) 12/29/1997 @ 47 y/o LAD stent x1 11/08/2003 @ 53 y/o LAD stent x2 06/25/2007 @ 57 y/o PCI diagonal 05/21/2006 @ 56 years: PCI to LAD 10/23/2004 @ 54 years PTCA to OM 02/2010 :last stent 09/2016: PCI to LAD Dr. Santana 2018 <Kwaku Lazo DO - Last Filed: 06/10/21 04:47> Family History Family History: Family History Father Heart disease Mother Heart disease Sibling Heart disease Other Family history of coronary artery disease <Kwaku Lazo DO - Last Filed: 06/10/21 04:47> Social History Social History: Soci
[2021-06-10] MEDS: SODIUM CHLORIDE 0.9% IV 1,000 ML 999 ML IV CONT (04:46)
[2021-06-10 04:49] LABS: Basophils Percent Auto 0.4 % (0.2-1.2); Eosinophils Absolute Auto 0.2 K/mm3 (0-0.3); Eosinophils Percent Auto 2.8 % (0-4.4); Hematocrit 41.3 % (42.0-52.0); Hemoglobin 13.4 g/dL (14.0-18.0); Immature Granulocyte Absolute 0.02 K/mm3 (0.00-0.031); Immature Granulocyte Percent A 0.3 % (0-0.5); Lymphocytes Percent Auto 18.7 % (18.3-44.2); Mean Corpuscular HGB Conc 32.4 g/dl (32-36); Mean Corpuscular Hemoglobin 32.7 pg (26-34); Mean Corpuscular Volume 100.7 fl (80-100); Monocytes Absolute Auto 0.9 K/mm3 (0.1-0.6); Neutrophils Absolute Auto 4.9 K/mm3 (1.3-6.7); Neutrophils Percent Auto 65.8 % (45.5-73.1); Platelet Count Result 194 k/mm3 (150-375); White Blood Count 7.5 K/mm3 (4.5-10.0)
[2021-06-10] MEDS: ONDANSETRON INJ 4 MG/2 ML VIAL IV PUSH (04:49)
[2021-06-10 05:06] LABS: Alanine Aminotransferase 23 U/L (4-50); Albumin Level 4.1 g/dL (3.5-5.1); Alkaline Phosphatase 60 U/L (38-126); Anion Gap 5 mmol/L (8-16); Aspartate Amino Transferase 36 U/L (17-59); Bilirubin,Total 0.8 mg/dL (0.2-1.3); Blood Urea Nitrogen 13 mg/dL (9-20); Calcium 8.9 mg/dL (8.4-10.2); Carbon Dioxide 27 mmol/L (22-30); Chloride 106 mmol/L (98-107); Estimated CRCL calculation 79 ml/min; Estimated Glomerular Filt Rate > 60; Glucose 121 mg/dL (65-110); Lipase 133 U/L (23-300); Potassium 4.5 mmol/L (3.4-5.0); Sodium 138 mmol/L (137-145)
[2021-06-10 05:11] LABS: Troponin I < 0.012 ng/mL (0.000-0.034)
[2021-06-10 06:08] LABS: Add Urine Microscopic? YES; Appearance Urine Clear (Clear); Bilirubin Urine Negative (Negative); Color Urine Yellow (Yellow); Glucose Urine UA Negative (Negative); Ketones Urine Negative (Negative); Leukocyte Esterase Ur 1+ LEU/UL (Negative); Mucus Urine Rare /lpf; Nitrate Urine Negative (Negative); Protein Urine Negative (Negative); RBC Urine 0-2 /hpf (0-2); Specific Grav Ur 1.021 (1.001-1.035); Urobilinogen Urine Negative mg/dL (<2.0)
[2021-06-10 06:18] LABS: Blood Urine Negative (Negative)
[2021-06-10 08:10] LABS: Troponin I < 0.012 ng/mL (0.000-0.034)
== END 2021-06-10 09:45 | disposition home or self-care (01) ==
PROVIDERS: Emergency Medicine; Emergency Provider Emergency Medicine; PCP Family Medicine
DX: R11.2 Nausea with vomiting, unspecified (principal); R82.998 Other abnormal findings in urine; I25.5 Ischemic cardiomyopathy; I50.30 Unspecified diastolic (congestive) heart failure; I11.0 Hypertensive heart disease with heart failure; I34.0 Nonrheumatic mitral (valve) insufficiency; I36.1 Nonrheumatic tricuspid (valve) insufficiency; E03.9 Hypothyroidism, unspecified; Z86.16 Personal history of COVID-19; Z95.5 Presence of coronary angioplasty implant and graft; F17.210 Nicotine dependence, cigarettes, uncomplicated; R00.1 Bradycardia, unspecified; I45.2 Bifascicular block
CPT/HCPCS: 36415; 74177; 80053; 81001; 83690; 84484; 85025; 87086; 87804; 93005; 96361; 96365; 96375; 99284; J0696; J2405; J7030; Q9967

== ENCOUNTER 2021-07-11 10:15 | Emergency (ER) | payer MEDICARE, SELFPAY ==
--- NOTE | ~2021-07-11 | XR_ITS ---
EXAMINATION: XR chest 2V DATE: 07/11/2021 11:18 INDICATION: Chest pain and shortness of breath TECHNIQUE: Frontal and lateral views of the chest are obtained COMPARISON: 05/04/2021 FINDINGS: The lungs are free of acute opacities. There is no pleural effusion or pneumothorax. The ca rdiomediastinal silhouette is normal. Coronary artery stents are noted. There is mild thoracic spondy losis. There appears to be mild periosteal reaction at the lateral aspect of the left third rib. IMPRESSION: 1. No acute cardiopulmonary abnormality. 2. Possible periosteal reaction at the lateral aspect of the left third rib. Correlate for history of interval trauma. Reviewed, dictated and finalized at location A. IMPRESSION: 1. No acute cardiopulmonary abnormality. 2. Possible periosteal reaction at the lateral aspect of the left third rib. Co rrelate for history of interval trauma.
--- NOTE | ~2021-07-11 | CT_ITS ---
EXAMINATION: CTA chest PE protocol EXAM DATE: 07/11/2021 12:24 INDICATION: Shortness of breath, elevated d dimer. TECHNIQUE: Spiral CTA of the chest (pulmonary arteries) was performed with 100 cc Omnipaque 350 intr avenous contrast injection. Images were acquired during the pulmonary arterial phase. Coronal maxi mum intensity projection 3D-reconstructions were created by the technologist on dedicated workstation . Axial, coronal and sagittal reformatted images were reviewed. The dose-length product (DLP) for t his examination was 389.28 mGy-cm. The exposure was tailored according to patient size (auto mA exp osure control), and iterative reconstruction (ASIR) was used as additional dose reduction technique. Correlation is made to chest x-ray earlier same date. FINDINGS: There are no pulmonary emboli in the 1st through 3rd order (central and interlobar) pulmon tanisha arteries. Some loss of attenuation in the segmental pulmonary arteries due to respiratory motion , but no intraluminal filling defects suspected. No thoracic aortic dissection. Mild dependent jena undglass opacity, subsegmental atelectasis. There are no pleural or pericardial effusions. Tracheo bronchial tree is patent. There is no mediastinal, hilar or axillary lymphadenopathy. There is no pneumothorax. Mild cardiomegaly. There are likely coronary arterial stent or stents. Correlate wi th prior cardiac history. Liver cysts. Cholecystectomy clips. Small duodenal diverticulum. There is mild thoracic spondylosis without osteoblastic or osteolytic lesions identified. Unremarkable left 3r d rib. IMPRESSION: 1. No pulmonary emboli or acute cardiopulmonary findings. 2. Cardiomegaly. Reviewed, dictated and finalized at location B.
--- NOTE | 2021-07-11 10:20 | ECG_ITS ---
Measurements Intervals [place] Rate: 62 P: 12 CT: 162 QRS: -55 QRSD: 159 T: 24 QT: 429 QTc: 437 Interpretive Statements SINUS RHYTHM LEFT ANTERIOR FASCICULAR BLOCK RIGHT BUNDLE BRANCH BLOCK ABNORMAL ECG Electronically Signed On 07-11-2021 15:54:21 CDT by Marcelo Sen M.D.
[2021-07-11 10:30] VITALS: BP 132/88; PULSE 62; RESP 14; TEMP 36.6; O2SAT 97
[2021-07-11 10:33] VITALS: PULSE 62
[2021-07-11 10:42] LABS: Basophils Percent Auto 0.5 % (0.2-1.2); Eosinophils Absolute Auto 0.1 K/mm3 (0-0.3); Hematocrit 41.9 % (42.0-52.0); Hemoglobin 14.2 g/dL (14.0-18.0); Immature Granulocyte Absolute 0.02 K/mm3 (0.00-0.031); Immature Granulocyte Percent A 0.3 % (0-0.5); Lymphocytes Percent Auto 21.1 % (18.3-44.2); Mean Corpuscular HGB Conc 33.9 g/dl (32-36); Mean Corpuscular Hemoglobin 33.1 pg (26-34); Mean Corpuscular Volume 97.7 fl (80-100); Monocytes Absolute Auto 0.6 K/mm3 (0.1-0.6); Monocytes Percent Auto 10.2 % (2.6-8.5); Neutrophils Absolute Auto 4.1 K/mm3 (1.3-6.7); Neutrophils Percent Auto 65.9 % (45.5-73.1); Platelet Count Result 189 k/mm3 (150-375); Red Blood Count 4.29 M/mm3 (4.6-6.20); Red Cell Distribution Width 13.8 % (11.5-14.5); White Blood Count 6.2 K/mm3 (4.5-10.0)
[2021-07-11 10:54] LABS: Alanine Aminotransferase 23 U/L (4-50); Albumin Level 4.1 g/dL (3.5-5.1); Alkaline Phosphatase 66 U/L (38-126); Anion Gap 6 mmol/L (8-16); Aspartate Amino Transferase 33 U/L (17-59); Bilirubin,Total 0.8 mg/dL (0.2-1.3); Blood Urea Nitrogen 10 mg/dL (9-20); Calcium 8.8 mg/dL (8.4-10.2); Carbon Dioxide 26 mmol/L (22-30); Chloride 106 mmol/L (98-107); Estimated CRCL calculation 94 ml/min; Estimated Glomerular Filt Rate > 60; Glucose 139 mg/dL (65-110); INR 1.1; Lipase 116 U/L (23-300); Potassium 3.8 mmol/L (3.4-5.0); Prothrombin Time 13.3 Seconds (11.1-14.7); Sodium 138 mmol/L (137-145)
[2021-07-11 10:55] LABS: Partial Thromboplastin Time 26.1 SECONDS (22.3-36.8)
--- NOTE | 2021-07-11 11:04 | ED.GENADULT ---
HPI - General Adult General Chief complaint: Chest Pain Stated complaint: making sure i didnt have a heart attack Time Seen by Provider: 07/11/21 10:34 Source: patient, RN notes reviewed and old records reviewed Mode of arrival: ambulatory Limitations: no limitations History of Present Illness HPI narrative: This is a 71 year old male with history of SC, CAD with coronary stents x 15 who presents for evaluation of shortness of breath. PAtient states he was taking a walk with his dog yesterday. He states he became diaphoretic , short of breath and weak. He states he has not had any chest pain. He states went to sleep last night and wanted to wait to see how he felt this morning. He states this morning he still felt weak and short of breath with exertion. He denies cough, fever, chills, abdominal pain, nausea or vomiting. Related Data Home Medications Medication Instructions Recorded Confirmed clopidogrel 75 mg tablet 75 mg PO DAILY 02/19/19 05/28/21 fluticasone propionate 2 spray INTRANASAL DAILY PRN 05/17/20 05/28/21 furosemide 40 mg tablet 40 mg PO QAM 10/17/20 05/28/21 nebivolol 5 mg tablet 5 mg PO DAILY 10/17/20 05/28/21 triamcinolone acetonide 0.1 % 1 applic TOPICAL BID PRN 10/17/20 05/28/21 topical cream rosuvastatin 20 mg tablet 20 mg PO QHS tablet 11/27/20 05/28/21 glucosamine sulf dipot 2 cap PO DAILY cap 05/28/21 05/28/21 chlr,msm,chond 550 mg-C 30 mg-kailee 1 mg capsule levothyroxine 50 mcg tablet 50 mcg PO DAILY tablet 05/28/21 05/28/21 Allergies Allergy/AdvReac Type Severity Reaction Status Date / Time No Known Allergies Allergy Verified 07/11/21 10:33 Review of Systems Review of Systems: All systems reviewed & are unremarkable except as noted in HPI and below PMFSH Past Medical History Medical History Environmental allergies Essential (primary) hypertension Fatty liver History of COVID-19 02/2020, 05/2021 Hypothyroidism Ischemic dilated cardiomyopathy (~2009) Nonrheumatic mitral (valve) insufficiency (~2009) Nonrheumatic tricuspid (valve) insufficiency (~2009) Positive colorectal cancer screening using DNA-based stool test Unspecified diastolic (congestive) heart failure (~2009) Surgical History Surgical History History of cholecystectomy (~03/2011) History of PTCA (~02/2010) 12/29/1997 @ 47 y/o LAD stent x1 11/08/2003 @ 53 y/o LAD stent x2 06/25/2007 @ 57 y/o PCI diagonal 05/21/2006 @ 56 years: PCI to LAD 10/23/2004 @ 54 years PTCA to OM 02/2010 :last stent 09/2016: PCI to LAD Dr. 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 Gender identity (if verbalized by the patient): Male Spiritual care concerns: No Agree to blood products: Yes Exam Const: General: no acute distress and alert Orientation/consciousness: patient oriented x3 Eyes: Pupils: Equal, round and reactive pupils present EOM: EOMs intact bilaterally Chest: Chest palpation & inspection: normal inspection of the chest Resp: Effort & Inspection: normal respiratory effort and no retractions Auscultation: clear to auscultation bilaterally Cardio: Rate: regular rate Rhythm: regular rhythm Heart sounds: no murmurs GI: GI Palp: Yes Soft to palpation, No Tenderness to palpation present (GI
[2021-07-11] MEDS: ASPIRIN 81 MG CHEWABLE TABLET 324 MG PO (11:08)
[2021-07-11 11:09] LABS: Troponin I < 0.012 ng/mL (0.000-0.034)
[2021-07-11 11:40] LABS: D Dimer 1.21 ug/mL (<0.48)
[2021-07-11 12:21] VITALS: BP 88/65; PULSE 62; RESP 12; O2SAT 96
[2021-07-11 13:45] LABS: Troponin I < 0.012 ng/mL (0.000-0.034)
[2021-07-11 14:07] VITALS: BP 128/83; PULSE 58; RESP 18; O2SAT 97
[2021-07-11 14:43] VITALS: BP 114/68; PULSE 75; RESP 16; O2SAT 100
== END 2021-07-11 14:44 | disposition home or self-care (01) ==
PROVIDERS: Emergency Provider General Practice; PCP Family Medicine
DX: R06.00 Dyspnea, unspecified (principal); I25.2 Old myocardial infarction; I25.10 Atherosclerotic heart disease of native coronary artery without angina pectoris; I11.0 Hypertensive heart disease with heart failure; I50.30 Unspecified diastolic (congestive) heart failure; Z86.16 Personal history of COVID-19; E03.9 Hypothyroidism, unspecified; I25.5 Ischemic cardiomyopathy; I34.0 Nonrheumatic mitral (valve) insufficiency; I36.1 Nonrheumatic tricuspid (valve) insufficiency; F17.210 Nicotine dependence, cigarettes, uncomplicated; Z95.5 Presence of coronary angioplasty implant and graft; Z79.02 Long term (current) use of antithrombotics/antiplatelets; I44.4 Left anterior fascicular block; I45.10 Unspecified right bundle-branch block
CPT/HCPCS: 36415; 71046; 71275; 80053; 83690; 84484; 85025; 85380; 85610; 85730; 93005; 99284; A9270; Q9967

== ENCOUNTER 2021-09-14 06:52 | Emergency (ER) | payer MEDICARE, SELFPAY ==
--- NOTE | ~2021-09-14 | XR_ITS ---
XR chest 1V portable 09/14/2021 07:33 Indication: Cough and exhaustion. Procedure: AP portable chest Comparison: Comparison to multiple prior studies sequentially, with oldest reviewed study dated 04/27. Findings: Borderline heart size. There is a coronary artery stent. No focal air space disease, pulmon tanisha edema, pleural effusion or suspected pneumothorax. Impression: 1: No acute cardiopulmonary disease. Reviewed, dictated and finalized at location A. Impression: 1: No acute cardiopulmonary disease.
--- NOTE | ~2021-09-14 | CT_ITS ---
EXAMINATION: CT brain wo con DATE: 09/14/2021 07:42 INDICATION: Altered mental status TECHNIQUE: Computed tomography (CT) of the head was performed without intravenous contrast. Sagittal and coronal reconstructions were performed. The mA was adjusted according to patient size. Iterative reconstruction technique was employed. The dose-length product was 605.33 mGy-cm. COMPARISON: None FINDINGS: No acute intracranial hemorrhage, acute infarction or abnormal extra axial fluid collection. Minimal scattered white matter hypoattenuation consistent with chronic small vessel ischemic disease. Ventric les are normal and symmetric. No mass/mass effect. Mild mucosal thickening in the bilateral ethmoid s inuses. The orbits and mastoid air cells are normal. IMPRESSION: 1. Minimal scattered white matter hypoattenuation consistent with chronic small vessel ischemic disea se. No acute intracranial process. Reviewed, dictated and finalized at location A. IMPRESSION: 1. Minimal scattered white matter hypoattenuation consistent with chronic small vessel ischemic disease. No acute intracranial process.
[2021-09-14 07:01] VITALS: BP 125/89; PULSE 57; RESP 16; TEMP 35.8; O2SAT 100
--- NOTE | 2021-09-14 07:18 | ECG_ITS ---
Measurements Intervals [place] Rate: 57 P: 48 [place]: 164 QRS: -65 QRSD: 170 T: 31 QT: 456 QTc: 446 Interpretive Statements SINUS BRADYCARDIA RIGHT BUNDLE BRANCH BLOCK [120+ ms QRS DURATION, UPRIGHT V1, 40+ ms S IN I/aVL/V4/V5/V6] LEFT ANTERIOR FASCICULAR BLOCK [QRS AXIS <= -45, QR IN I, RS IN II] ABNORMAL ECG COMPARED WITH 07/11/2021 NO SIGNIFICANT DIFFERENCE Electronically Signed On 09-14-2021 14:38:32 CDT by Rocky Fierro M.D.
[2021-09-14 07:26] VITALS: TEMP 37.2
--- NOTE | 2021-09-14 07:29 | ED.GENADULT ---
HPI - General Adult General Chief complaint: Unspecified Stated complaint: Exhaustion Time Seen by Provider: 09/14/21 07:04 Source: RN notes reviewed History of Present Illness HPI narrative: Patient presents emergency department from home for weakness. The patient states that starting yesterday afternoon he felt generally fatigued and weak he states that he just felt like laying down and did not feel like doing anything and states he is able to get up and ambulate but just feels extremely tired he states it was associate with some mild feeling of a tingling in his left arm and chest and he has a previous cardiac history and was concerned about heart attack states he has none of the symptoms at this time but still feels tired he denies any fevers or chills shortness of breath abdominal pain vomiting or diarrhea states he did have some mild nausea with the symptoms. He denies any unilateral numbness or weakness Related Data Home Medications Medication Instructions Recorded Confirmed clopidogrel 75 mg tablet (Plavix) 75 mg PO DAILY 02/19/19 05/28/21 fluticasone propionate 50 2 spray intranasal DAILY PRN Nasal 05/17/20 05/28/21 mcg/actuation nasal Congestion spray,suspension furosemide 40 mg tablet 40 mg PO QAM 10/17/20 05/28/21 nebivolol 5 mg tablet (Bystolic) 5 mg PO DAILY 10/17/20 05/28/21 triamcinolone acetonide 0.1 % 1 applic topical BID PRN 10/17/20 05/28/21 topical cream rosuvastatin 20 mg tablet (Crestor) 20 mg PO QHS 11/27/20 05/28/21 glucosamine sulf dipot 2 cap PO DAILY 05/28/21 05/28/21 chlr,msm,chond 550 mg-C 30 mg-kailee 1 mg capsule (Glucosamine Chondroitin) Allergies Allergy/AdvReac Type Severity Reaction Status Date / Time No Known Allergies Allergy Verified 09/14/21 07:05 Review of Systems Review of Systems: Gen.: Denies fevers or chills Eyes: Denies eye pain or visual change ENT: Denies congestion Respiratory: Denies shortness of breath or cough CV: Denies chest pain or palpitations GI: Denies abdominal pain nausea, emesis or diarrhea Musculoskeletal: Denies back pain or muscle pain Neuro: Denies numbness, reports weakness Skin: Denies rash Except as documented, all other systems reviewed and negative PMFSH Past Medical History Medical History Environmental allergies Essential (primary) hypertension Fatty liver History of COVID-19 02/2020, 05/2021 Hypothyroidism Ischemic dilated cardiomyopathy (~2009) Nonrheumatic mitral (valve) insufficiency (~2009) Nonrheumatic tricuspid (valve) insufficiency (~2009) Positive colorectal cancer screening using DNA-based stool test Unspecified diastolic (congestive) heart failure (~2009) Surgical History Surgical History History of cholecystectomy (~03/2011) History of PTCA (~02/2010) 12/29/1997 @ 47 y/o LAD stent x1 11/08/2003 @ 53 y/o LAD stent x2 06/25/2007 @ 57 y/o PCI diagonal 05/21/2006 @ 56 years: PCI to LAD 10/23/2004 @ 54 years PTCA to OM 02/2010 :last stent 09/2016: PCI to LAD Dr. 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
[2021-09-14 08:44] LABS: Basophils Percent Auto 0.6 % (0.2-1.2); Eosinophils Absolute Auto 0.1 K/mm3 (0-0.3); Eosinophils Percent Auto 2.2 % (0-4.4); Hematocrit 41.7 % (42.0-52.0); Hemoglobin 14.3 g/dL (14.0-18.0); Immature Granulocyte Absolute 0.02 K/mm3 (0.00-0.031); Immature Granulocyte Percent A 0.3 % (0-0.5); Lymphocytes Absolute Auto 1.25 K/mm3 (0.9-3.2); Lymphocytes Percent Auto 19.6 % (18.3-44.2); Mean Corpuscular HGB Conc 34.3 g/dl (32-36); Mean Corpuscular Hemoglobin 32.4 pg (26-34); Mean Corpuscular Volume 94.6 fl (80-100); Mean Platelet Volume 9.5 fl (7.4-10.4); Monocytes Absolute Auto 0.7 K/mm3 (0.1-0.6); Neutrophils Absolute Auto 4.2 K/mm3 (1.3-6.7); Neutrophils Percent Auto 66.3 % (45.5-73.1); Platelet Count Result 183 k/mm3 (150-375); Red Blood Count 4.41 M/mm3 (4.6-6.20); Red Cell Distribution Width 13.6 % (11.5-14.5); White Blood Count 6.4 K/mm3 (4.5-10.0)
[2021-09-14 08:45] LABS: Alanine Aminotransferase 20 U/L (6-50); Albumin Level 4.1 g/dL (3.5-5.1); Alkaline Phosphatase 72 U/L (38-126); Anion Gap 4 mmol/L (8-16); Aspartate Amino Transferase 27 U/L (17-59); Bilirubin,Total 0.7 mg/dL (0.2-1.3); Blood Urea Nitrogen 14 mg/dL (9-20); Calcium 9.3 mg/dL (8.4-10.2); Carbon Dioxide 28 mmol/L (22-30); Chloride 106 mmol/L (98-107); Creatine Kinase 118 U/L (55-170); Estimated CRCL calculation 81 ml/min; Estimated Glomerular Filt Rate > 60; Glucose 102 mg/dL (65-110); Lipase 119 U/L (23-300); Potassium 3.9 mmol/L (3.4-5.0); Sodium 138 mmol/L (137-145)
[2021-09-14 08:47] LABS: INR 1.1; Prothrombin Time 13.4 Seconds (11.1-14.7)
[2021-09-14 08:59] LABS: SARS-CoV-2 RNA PCR Negative
[2021-09-14 09:22] LABS: Troponin I < 0.012 ng/mL (0.000-0.034)
[2021-09-14 09:29] LABS: Add Urine Microscopic? YES; Appearance Urine Clear (Clear); Bilirubin Urine Negative (Negative); Blood Urine Negative (Negative); Color Urine Yellow (Yellow); Glucose Urine UA Negative (Negative); Ketones Urine Negative (Negative); Leukocyte Esterase Ur 2+ LEU/UL (Negative); Nitrate Urine Negative (Negative); Protein Urine Negative (Negative); Urobilinogen Urine 0.2 mg/dL (<2.0)
[2021-09-14 09:34] LABS: Mucus Urine Rare /lpf; Squamous Epithelial Cell Urine Rare /hpf (Few)
[2021-09-14 10:51] LABS: Troponin I 0.012 ng/mL (0.000-0.034)
[2021-09-14 12:23] VITALS: BP 135/72; PULSE 78; RESP 18; O2SAT 99
[2021-09-14 13:14] VITALS: BP 118/63; PULSE 70; RESP 18; O2SAT 100
== END 2021-09-14 13:15 | disposition home or self-care (01) ==
PROVIDERS: Emergency Provider Emergency Medicine; PCP Family Medicine
DX: N39.0 Urinary tract infection, site not specified (principal); R53.1 Weakness; Z20.822 Contact with and (suspected) exposure to COVID-19; I25.5 Ischemic cardiomyopathy; I50.30 Unspecified diastolic (congestive) heart failure; I11.0 Hypertensive heart disease with heart failure; E03.9 Hypothyroidism, unspecified; Z86.16 Personal history of COVID-19; I36.1 Nonrheumatic tricuspid (valve) insufficiency; I34.0 Nonrheumatic mitral (valve) insufficiency; Z95.5 Presence of coronary angioplasty implant and graft; F17.210 Nicotine dependence, cigarettes, uncomplicated; R00.1 Bradycardia, unspecified; I45.2 Bifascicular block
CPT/HCPCS: 36415; 70450; 71045; 80053; 81001; 82550; 83690; 83735; 84484; 85025; 85610; 85730; 93005; 96365; 99284; C9803; J0696; U0003; U0005

== ENCOUNTER 2021-10-02 10:25 | Outpatient (CLI) | payer MEDICARE, SELFPAY ==
[2021-10-02 11:42] LABS: Appearance Urine Clear (Clear); Bilirubin Urine Negative (Negative); Blood Urine Negative (Negative); Color Urine Yellow (Yellow); Glucose Urine UA Negative (Negative); Ketones Urine Negative (Negative); Leukocyte Esterase Ur 1+ LEU/UL (Negative); Nitrate Urine Negative (Negative); Protein Urine Negative (Negative); Urobilinogen Urine 0.2 mg/dL (<2.0)
[2021-10-02 11:46] LABS: RBC Urine 0-2 /hpf (0-2); WBC Urine 0-3 /hpf
[2021-10-02 11:52] LABS: Add Urine Microscopic? YES
== END 2021-10-02 10:26 | disposition home or self-care (01) ==
LOC: ANHLAB 10:26
PROVIDERS: PCP Family Medicine; Visit Provider Family Medicine
DX: N39.0 Urinary tract infection, site not specified (principal)
CPT/HCPCS: 81001

== ENCOUNTER 2021-12-14 08:42 | Outpatient (CLI) | payer MEDICARE, SELFPAY ==
[2021-12-14 09:38] LABS: Cholesterol 91 mg/dL (0-200); HDL Direct 26 mg/dL; Triglycerides 161 mg/dL (<150)
[2021-12-14 09:56] LABS: LDL Cholesterol Direct 38 mg/dL
[2021-12-14 10:14] LABS: Prostate Specific Antigen 1.4 ng/mL (< OR = 4.0)
== END 2021-12-14 08:43 | disposition home or self-care (01) ==
PROVIDERS: PCP Family Medicine; Visit Provider Nurse Practitioner Family
DX: E78.5 Hyperlipidemia, unspecified (principal); Z12.5 Encounter for screening for malignant neoplasm of prostate; E03.9 Hypothyroidism, unspecified; I50.32 Chronic diastolic (congestive) heart failure
CPT/HCPCS: 36415; 80061; 84153; 84443; G0103

== ENCOUNTER → 2022-02-27 11:57 | Outpatient (CLI) | payer MEDICARE, SELFPAY ==
--- NOTE | ~2022-02-27 | XR_ITS ---
XR elbow RT min 3V DATE: 02/27/2022 12:10 INDICATION: Right elbow pain. No injury. TECHNIQUE: 4 views COMPARISON: 11/17/2015 right elbow FINDINGS: No fracture or dislocation or joint effusion. No periosteal reaction or bone destruction. J oint spaces are preserved. IMPRESSION: Negative Reviewed, dictated and finalized at location A. ELING 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 IMPRESSION: Negative
== END ==
PROVIDERS: PCP Family Medicine; Visit Provider Family Medicine
DX: M25.521 Pain in right elbow (principal)
CPT/HCPCS: 73080

== ENCOUNTER 2022-08-31 17:53 | Emergency (ER) | payer MEDICARE, SELFPAY ==
--- NOTE | ~2022-08-31 | XR_ITS ---
Left wrist Technique: PA, oblique, lateral, and ulnar deviation views were obtained. Clinical History: Injury Findings: No acute fracture or dislocation is seen. Osseous alignment is anatomic. Joint spaces are p reserved. Soft tissues are unremarkable. Impression: Unremarkable left wrist radiographs. Reviewed, dictated and finalized at location . Impression: Unremarkable left wrist radiographs.
[2022-08-31 17:56] VITALS: BP 154/94; PULSE 79; RESP 19; TEMP 36.8; O2SAT 95
--- NOTE | 2022-08-31 18:24 | ED.UPPEXIN ---
HPI - Extremity Injury (Upper) General Chief Complaint: Extremity Injury, Upper Stated Complaint: L WRIST INJURY Time Seen by Provider: 08/31/22 17:57 Source: patient Mode of arrival: ambulatory Limitations: no limitations History of Present Illness HPI narrative: 72-year-old male presents several flights of left wrist pain after a fall he sustained about 2 hours prior to arrival. Patient states he was in back of his truck trying to load a lawnmower when he is he never having problems. He now running down the ramp to keep from falling off the back of the truck. By the time he got into the ramp he went forward with left arm outstretched and fell. Patient with pain since. Denies using any Tylenol or icing the area of pain. Denies any numbness or tingling. Pain with certain movement and palpation. No obvious deformity noted. MD complaint: injury to: left Other injuries: none Place: home Severity: moderate Related Data Home Medications Medication Instructions Recorded Confirmed clopidogrel 75 mg tablet (Plavix) 75 mg PO DAILY 02/19/19 05/06/22 furosemide 40 mg tablet 40 mg PO QAM 10/17/20 05/06/22 nebivolol 5 mg tablet (Bystolic) 5 mg PO DAILY 10/17/20 05/06/22 rosuvastatin 20 mg tablet (Crestor) 20 mg PO QHS 11/27/20 05/06/22 Allergies Allergy/AdvReac Type Severity Reaction Status Date / Time No Known Allergies Allergy Verified 03/20/22 11:01 Review of Systems Review of Systems: CONSTITUTIONAL: Denies fever, chills, or sweats. CARDIOVASCULAR: Denies chest pain, palpitations, or edema. RESPIRATORY: Denies cough or dyspnea. SKIN: Denies rash or itching. MUSCULOSKELETAL: Left wrist pain. Denies back pain or myalgia. NEUROLOGIC: Denies headache, numbness, dizziness, or weakness. PSYCHIATRIC: Denies anxiety or depression. [facility] Past Medical History Medical History Bruises easily Environmental allergies Essential (primary) hypertension Fatty liver History of COVID-19 02/2020, 05/2021 History of stress test Hypertension Hypothyroidism Ischemic dilated cardiomyopathy (~2009) Nonrheumatic mitral (valve) insufficiency (~2009) Nonrheumatic tricuspid (valve) insufficiency (~2009) Positive colorectal cancer screening using DNA-based stool test Unspecified diastolic (congestive) heart failure (~2009) Surgical History Surgical History History of cholecystectomy (~03/2011) History of PTCA (~02/2010) 12/29/1997 @ 47 y/o LAD stent x1 11/08/2003 @ 53 y/o LAD stent x2 06/25/2007 @ 57 y/o PCI diagonal 05/21/2006 @ 56 years: PCI to LAD 10/23/2004 @ 54 years PTCA to OM 02/2010 :last stent 09/2016: PCI to LAD Dr. Santana 2018 Family History Family History Father Heart disease Mother Heart disease Sibling Heart disease Other Family history of coronary artery disease Social History Social History Smoking packs per day: 3 Smoking cigarettes per day: 60.0 Years smoked: 30 Smoking pack-years: 90.00 Smoking status: Former smoker Tobacco type: cigarettes Smoking end date: 08/29/77 Alcohol intake: never Substance use: never Lack of Transportation: No Lack of Food: Never True Current Housing: Decline to Answer Concerned About Future Housing: No Difficulty Paying Gas/Electric Bills: No Difficulty Paying for Meds: No Currently Unemployed: No Education: High School Diploma/GED Difficulty w/ Childcare or Family Care: No Living arrangements: with family Additional living arrangements comments: 2nd marriage: fathered 2 sons from first marriage Occupation/Education: retired 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
[2022-08-31] MEDS: ACETAMINOPHEN 500 MG TABLET 1000 MG PO (18:28)
== END 2022-08-31 18:36 | disposition home or self-care (01) ==
PROVIDERS: Emergency Provider Nurse Practitioner Family; PCP Family Medicine
DX: S63.502A Unspecified sprain of left wrist, initial encounter (principal); W10.2XXA Fall (on)(from) incline, initial encounter; E03.9 Hypothyroidism, unspecified; I42.0 Dilated cardiomyopathy; I25.5 Ischemic cardiomyopathy; I08.3 Combined rheumatic disorders of mitral, aortic and tricuspid valves; I11.0 Hypertensive heart disease with heart failure; I50.30 Unspecified diastolic (congestive) heart failure; K76.0 Fatty (change of) liver, not elsewhere classified; Z87.891 Personal history of nicotine dependence
CPT/HCPCS: 73110; 99283; A9270

== ENCOUNTER 2023-02-14 07:42 | Outpatient (CLI) | payer MEDICARE, SELFPAY ==
[2023-02-14 08:45] LABS: Basophils Percent Auto 0.4 % (0.2-1.2); Eosinophils Absolute Auto 0.1 K/mm3 (0-0.3); Eosinophils Percent Auto 1.4 % (0-4.4); Hemoglobin 13.1 g/dL (14.0-18.0); Immature Granulocyte Absolute 0.02 K/mm3 (0.00-0.031); Immature Granulocyte Percent A 0.3 % (0-0.5); Lymphocytes Absolute Auto 1.22 K/mm3 (0.9-3.2); Lymphocytes Percent Auto 15.9 % (18.3-44.2); Mean Corpuscular Hemoglobin 31.4 pg (26-34); Mean Corpuscular Volume 98.3 fl (80-100); Monocytes Absolute Auto 0.9 K/mm3 (0.1-0.6); Monocytes Percent Auto 11.6 % (2.6-8.5); Neutrophils Absolute Auto 5.4 K/mm3 (1.3-6.7); Neutrophils Percent Auto 70.4 % (45.5-73.1); Platelet Count Result 176 k/mm3 (150-375); Red Blood Count 4.17 M/mm3 (4.6-6.20); Red Cell Distribution Width 14.1 % (11.5-14.5); White Blood Count 7.7 K/mm3 (4.5-10.0)
[2023-02-14 09:05] LABS: Alanine Aminotransferase 22 U/L (6-50); Albumin Level 4.1 g/dL (3.5-5.1); Alkaline Phosphatase 59 U/L (38-126); Anion Gap 7 mmol/L (8-16); Aspartate Amino Transferase 26 U/L (17-59); Bilirubin,Total 0.7 mg/dL (0.2-1.3); Blood Urea Nitrogen 15 mg/dL (9-20); Calcium 9.1 mg/dL (8.4-10.2); Carbon Dioxide 30 mmol/L (22-30); Chloride 104 mmol/L (98-107); Cholesterol 96 mg/dL (0-200); Estimated Glomerular Filt Rate > 60; Glucose 100 mg/dL (65-110); HDL Direct 28 mg/dL; Hemoglobin A1C 5.3 % (<5.7); Potassium 4.1 mmol/L (3.4-5.0); Sodium 141 mmol/L (137-145); Triglycerides 119 mg/dL (<150)
[2023-02-14 09:16] LABS: LDL Cholesterol Direct 48 mg/dL
[2023-02-14 09:25] LABS: Prostate Specific Antigen 1.4 ng/mL (< OR = 4.0)
[2023-02-14 10:07] LABS: Vitamin D 25 Hydroxy 54.8 ng/mL
== END 2023-02-14 07:43 | disposition home or self-care (01) ==
PROVIDERS: PCP Family Medicine; Visit Provider Family Medicine
DX: E03.8 Other specified hypothyroidism (principal); I10 Essential (primary) hypertension; R73.9 Hyperglycemia, unspecified; E78.5 Hyperlipidemia, unspecified; Z12.5 Encounter for screening for malignant neoplasm of prostate; E53.8 Deficiency of other specified B group vitamins; E55.9 Vitamin D deficiency, unspecified
CPT/HCPCS: 36415; 80053; 80061; 82306; 82607; 83036; 84153; 84443; 85025; G0103

== ENCOUNTER 2023-04-30 09:15 | Outpatient (CLI) | payer MEDICARE, SELFPAY ==
--- NOTE | ~2023-04-30 | CT_ITS ---
CT of the Abdomen and Pelvis: Indication: Iliac artery aneurysm Technique: 2.5 mm axial scans were obtained through the abdomen and pelvis following intravenous adm inistration of 100 cc of Omnipaque 350. Dose reduction technique was used on this scan by utilizing a utomated exposure control and iterative reconstruction technique. The dose-length product (DLP) was 8 02.19 mGy-cm. COMPARISON: 06/10/2021 Findings: Scans through the lung bases are unremarkable. Small hepatic cysts are present. Cholecystectomy clips are present. The spleen, pancreas, adrenals an d kidneys are within normal limits. No evidence of aortic aneurysm. No lymphadenopathy. No bowel obstruction or bowel wall thickening. There is sigmoid diverticulosis. Images through the pelvis were performed. Urinary bladder unremarkable. Prostate gland is enlarged. N o ascites. 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 Reviewed, dictated and finalized at location M. 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
[2023-04-30 09:31] LABS: Estimated Glomerular Filt Rate > 60
== END 2023-04-30 09:16 ==
LOC: MICIMG 09:16
PROVIDERS: PCP Family Medicine; Visit Provider Family Medicine
DX: I72.3 Aneurysm of iliac artery (principal)
CPT/HCPCS: 74174; Q9967

== ENCOUNTER 2023-08-29 12:51 | Outpatient (NON) | payer MEDICARE, SELFPAY | END 2023-08-29 12:52 | disposition home or self-care (01) | LOC: ANHGOSHLAB 12:52 | PROVIDERS: PCP Family Medicine; Visit Provider Student in an Organized Health Care Education/Training Program | DX: N39.0 Urinary tract infection, site not specified (principal) | CPT/HCPCS: 87086 ==

== ENCOUNTER 2023-10-26 02:39 | Emergency (ER) | payer MEDICARE, SELFPAY ==
--- NOTE | ~2023-10-26 | XR_ITS ---
EXAMINATION: XR chest 1V portable DATE: 10/26/2023 03:20 INDICATION: Shortness of breath. Weakness. TECHNIQUE: A single frontal view of the chest was obtained on 2 radiographs. COMPARISON: Chest single view 09/14/2021, chest CT 07/11/2021 FINDINGS: There is mild atelectasis in left lower lung zone. No pleural effusion or pneumothorax. Car diomegaly is noted. IMPRESSION: 1. Mild atelectasis in left lower lung zone. 2. Cardiomegaly. Reviewed, dictated and finalized at location E.
[2023-10-26 02:46] VITALS: BP 118/71; PULSE 55; RESP 15; TEMP 36.9; O2SAT 99
--- NOTE | 2023-10-26 02:51 | ECG_ITS ---
Test Date: 2023-10-26 03:13:11 Measurements Intervals [place] Rate: 58 P: 55 DC: 188 QRS: -62 QRSD: 157 T: 21 QT: 427 QTc: 420 Interpretive Statements SINUS BRADYCARDIA LEFT AXIS DEVIATION RIGHT BUNDLE BRANCH BLOCK BASELINE ARTIFACT- I, II, AVR, AVL, AVF ABNORMAL ECG No previous ECG available for comparison Electronically Signed On 10-26-2023 07:56:31 CDT by Hollis Reynoso D.O.
[2023-10-26 04:12] VITALS: BP 120/76; PULSE 61; RESP 15; O2SAT 100
[2023-10-26 04:19] LABS: Basophils Percent Auto 0.5 % (0.2-1.2); Eosinophils Absolute Auto 0.1 K/mm3 (0-0.3); Eosinophils Percent Auto 1.8 % (0-4.4); Hematocrit 35.2 % (42.0-52.0); Immature Granulocyte Absolute 0.02 K/mm3 (0.00-0.031); Immature Granulocyte Percent A 0.3 % (0-0.5); Lymphocytes Absolute Auto 1.13 K/mm3 (0.9-3.2); Lymphocytes Percent Auto 18.7 % (18.3-44.2); Mean Corpuscular HGB Conc 34.1 g/dl (32-36); Mean Corpuscular Hemoglobin 32.9 pg (26-34); Mean Corpuscular Volume 96.4 fl (80-100); Mean Platelet Volume 9.1 fl (7.4-10.4); Monocytes Absolute Auto 0.8 K/mm3 (0.1-0.6); Monocytes Percent Auto 13.7 % (2.6-8.5); Neutrophils Absolute Auto 3.9 K/mm3 (1.3-6.7); Platelet Count Result 155 k/mm3 (150-375); Red Blood Count 3.65 M/mm3 (4.6-6.20); Red Cell Distribution Width 14.3 % (11.5-14.5)
--- NOTE | 2023-10-26 04:26 | ED.WEAKNESS ---
HPI - Weakness General Chief complaint: Weakness Stated complaint: fatigue, sob Time Seen by Provider: 10/26/23 04:24 Source: patient Mode of arrival: ambulatory Limitations: no limitations History of Present Illness HPI Narrative: Patient presents with general weakness and fatigue today. This occurred after he was helping his brother move left furniture. He has had bit of a cough but no fever. Denies any pain. He describes an episode he could barely stand or walk due to the weakness but denies any unilateral nature to it no facial droop or slurred speech. He denies any chest pain although he extensive cardiac history stating he has had 3 prior myocardial infarctions with total of 15 stents. 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 Gaitan through [facility] on [address] in [place]. Patient states perhaps his breathing a little heavier at the time. Although he is feeling bit better now he is concerned his heart given his history. Related Data Home Medications Medication Instructions Recorded Confirmed clopidogrel 75 mg tablet (Plavix) 75 mg PO DAILY 02/19/19 08/29/23 furosemide 40 mg tablet 40 mg PO QAM 10/17/20 08/29/23 rosuvastatin 20 mg tablet (Crestor) 20 mg PO QHS 11/27/20 08/29/23 metoprolol succinate 25 mg 25 mg PO DAILY 02/13/23 08/29/23 tablet,extended release 24 hr sacubitril 49 mg-valsartan 51 mg 0.5 tablet PO BID 02/13/23 08/29/23 tablet (Entresto) nitroglycerin 0.4 mg sublingual mg sublingual 08/29/23 08/29/23 tablet Allergies Allergy/AdvReac Type Severity Reaction Status Date / Time No Known Allergies Allergy Verified 08/29/23 12:23 [facility] Past Medical History Medical History Bruises easily Environmental allergies Essential (primary) hypertension Fatty liver History of COVID-19 02/2020, 05/2021 History of myocardial infarction x3 per patient History of stress test Hypertension Hypothyroidism Ischemic dilated cardiomyopathy (~2009) Nonrheumatic mitral (valve) insufficiency (~2009) Nonrheumatic tricuspid (valve) insufficiency (~2009) Positive colorectal cancer screening using DNA-based stool test Unspecified diastolic (congestive) heart failure (~2009) Surgical History Surgical History History of cholecystectomy (~03/2011) History of PTCA (~02/2010) 12/29/1997 @ 47 y/o LAD stent x1 11/08/2003 @ 53 y/o LAD stent x2 06/25/2007 @ 57 y/o PCI diagonal 05/21/2006 @ 56 years: PCI to LAD 10/23/2004 @ 54 years PTCA to OM 02/2010 :last stent 09/2016: PCI to LAD Dr. Santana 2019 Patient states he has a total of 15 stents (?) Family History Family History Father Heart disease Mother Heart disease Sibling Heart disease Other Family history of coronary artery disease Social History Social History Smoking packs per day: 3 Smoking cigarettes per day: 60.0 Years smoked: 30 Smoking pack-years: 90.00 Smoking status: Former smoker Tobacco type: cigarettes Smoking end date: 03/31/77 Alcohol intake: never Substance use: never Lack of Transportation: No Lack of Food: Never True Current Housing: Decline to Answer Concerned About Future Housing: No Difficulty Paying Gas/Electric Bills: No Difficulty Paying for Meds: No Currently Unemployed: No Education: High School Diploma/GED Difficulty w/ Childcare or Family Care: No Living arrangements: with family Additional living arrangements comments: 2nd marriage: fathered 2 sons from first marriage Occupation/Education: retired 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
[2023-10-26 04:35] LABS: Alanine Aminotransferase 20 U/L (6-50); Albumin Level 3.7 g/dL (3.5-5.1); Alkaline Phosphatase 65 U/L (38-126); Anion Gap 8 mmol/L (4-12); Aspartate Amino Transferase 26 U/L (17-59); Bilirubin,Total 0.7 mg/dL (0.2-1.3); Blood Urea Nitrogen 14 mg/dL (9-20); Carbon Dioxide 27 mmol/L (22-30); Chloride 104 mmol/L (98-107); Estimated CRCL calculation 78 ml/min; Estimated Glomerular Filt Rate > 60; Glucose 100 mg/dL (65-110); Potassium 3.4 mmol/L (3.4-5.0); Sodium 139 mmol/L (137-145)
[2023-10-26 05:35] LABS: Appearance Urine Clear (Clear); Bacteria Urine None Seen /hpf; Bilirubin Urine Negative (Negative); Blood Urine Trace (Negative); Color Urine Yellow (Yellow); Glucose Urine UA Negative (Negative); Ketones Urine Negative (Negative); Leukocyte Esterase Ur 1+ LEU/UL (Negative); Nitrate Urine Negative (Negative); Non Pathogenic Casts 0-2; Protein Urine Negative (Negative); Specific Grav Ur 1.011 (1.001-1.035); Squamous Epithelial Cell Urine None Seen /hpf (Few); Urobilinogen Urine 0.2 mg/dL (<2.0); pH Urine 5.5 (5.0-9.0)
[2023-10-26 05:52] LABS: Add Urine Microscopic? YES
[2023-10-26 06:05] LABS: Influenza A QL RT-PCR Negative (Negative); Influenza B QL RT-PCR Negative (Negative); RSV RNA, RT-PCR Negative (Negative); SARS-CoV-2 RNA PCR Negative (Negative)
[2023-10-26 06:19] LABS: Troponin I < 0.012 ng/mL (0.000-0.034)
== END 2023-10-26 06:55 | disposition home or self-care (01) ==
PROVIDERS: Emergency Provider Student in an Organized Health Care Education/Training Program; PCP Family Medicine
DX: I45.10 Unspecified right bundle-branch block (principal); D64.9 Anemia, unspecified; N39.0 Urinary tract infection, site not specified; R53.1 Weakness; Z20.822 Contact with and (suspected) exposure to COVID-19; E03.9 Hypothyroidism, unspecified; I11.0 Hypertensive heart disease with heart failure; I50.9 Heart failure, unspecified; I25.2 Old myocardial infarction
CPT/HCPCS: 36415; 71045; 80053; 81001; 84484; 85025; 87086; 87637; 93005; 99284

== ENCOUNTER 2023-12-12 14:26 | Outpatient (NON) | payer MEDICARE, SELFPAY | END 2023-12-12 14:27 | disposition home or self-care (01) | LOC: ANHGOSHLAB 14:33 | PROVIDERS: PCP Family Medicine; Visit Provider Nurse Practitioner Family | DX: R39.198 Other difficulties with micturition (principal); R31.9 Hematuria, unspecified | CPT/HCPCS: 87077; 87086; 87088; 87186 ==

== ENCOUNTER 2024-04-06 04:35 | Emergency (ER) | payer MEDICARE, SELFPAY ==
--- NOTE | ~2024-04-06 | XR_ITS ---
Portable chest x-ray Comparison: 10/26/2023 Clinical History: Chest pain Findings: Lungs are clear, without focal consolidation or pleural effusion. Cardiomediastinal silho uette is stable. Bones and soft tissues are unremarkable. Impression: Clear lungs. Reviewed, dictated and finalized at location . [facility] Impression: Clear lungs.
[2024-04-06 04:44] VITALS: BP 124/78; PULSE 58; RESP 15; TEMP 36.6; O2SAT 98
--- NOTE | 2024-04-06 04:55 | ECG_ITS ---
Test Date: 2024-04-06 05:01:18 Measurements Intervals [place] Rate: 56 P: 57 DE: 176 QRS: -61 QRSD: 165 T: -29 QT: 448 QTc: 434 Interpretive Statements SINUS BRADYCARDIA WITH OCCASIONAL VENTRICULAR PREMATURE COMPLEXES RIGHT BUNDLE BRANCH BLOCK [120+ ms QRS DURATION, UPRIGHT V1, 40+ ms S IN I/aVL/V4/V5/V6] LEFT ANTERIOR FASCICULAR BLOCK [QRS AXIS <= -45, QR IN I, RS IN II] Compared to ECG 10/26/2023 03:13:11 Ventricular premature complex(es) now present Electronically Signed On 04-07-2024 17:29:49 HOTEL FRONT OFFICE MANAGER by Margaret Trotter M.D.
[2024-04-06 05:10] LABS: Basophils Absolute Auto 0.1 K/mm3 (0.0-0.1); Basophils Percent Auto 0.7 % (0.2-1.2); Eosinophils Absolute Auto 0.4 K/mm3 (0-0.3); Eosinophils Percent Auto 4.6 % (0-4.4); Hematocrit 36.1 % (42.0-52.0); Hemoglobin 12.4 g/dL (14.0-18.0); Immature Granulocyte Absolute 0.03 K/mm3 (0.00-0.031); Immature Granulocyte Percent A 0.4 % (0-0.5); Lymphocytes Absolute Auto 0.85 K/mm3 (0.9-3.2); Lymphocytes Percent Auto 10.2 % (18.3-44.2); Mean Corpuscular HGB Conc 34.3 g/dl (32-36); Mean Corpuscular Hemoglobin 33.4 pg (26-34); Mean Corpuscular Volume 97.3 fl (80-100); Mean Platelet Volume 9.3 fl (7.4-10.4); Monocytes Absolute Auto 0.9 K/mm3 (0.1-0.6); Monocytes Percent Auto 10.9 % (2.6-8.5); Neutrophils Absolute Auto 6.1 K/mm3 (1.3-6.7); Neutrophils Percent Auto 73.2 % (45.5-73.1); Platelet Count Result 181 k/mm3 (150-375); Red Blood Count 3.71 M/mm3 (4.6-6.20); Red Cell Distribution Width 14.6 % (11.5-14.5); White Blood Count 8.3 K/mm3 (4.5-10.0)
--- NOTE | 2024-04-06 05:22 | ED_ITS ---
HPI - General Adult General Chief complaint: Shortness of Breath/Dyspnea <Josse Connell MD - Last Filed: 04/06/24 05:23> Stated complaint: sob <Josse Connell MD - Last Filed: 04/06/24 05:23> Time Seen by Provider: 04/06/24 04:44 <Josse Connell MD - Last Filed: 04/06/24 05:23> History of Present Illness HPI narrative: Patient 74-year-old gentleman who presents emergency department with chief complaint of shortness of breath. The patient reports that he has prior history of cardiac disease reports that he noticed over the last tear to that he is just not getting a good deep breath the patient states that he was concerned as he had shortness of breath but did also have chest pain whenever he required a stent placement in the past the patient states that he has been doing reasonably well with his cardiac disease and reports that he is scheduled to have a urological procedure at another facility in the coming week. The patient denies fever denies productive cough <Josse Connell MD - Last Filed: 04/06/24 05:23> Related Data Home medications: Home Medications ?Medication ?Instructions ?Recorded ?Confirmed ?Last Taken ?Type clopidogrel 75 mg tablet (Plavix) 75 mg PO DAILY 02/19/19 02/27/24 05/16/20 History furosemide 40 mg tablet 40 mg PO QAM 10/17/20 02/27/24 Unknown History rosuvastatin 20 mg tablet (Crestor) 20 mg PO QHS 11/27/20 02/27/24 Unknown History metoprolol succinate 25 mg 25 mg PO DAILY 02/13/23 02/27/24 Unknown History tablet,extended release 24 hr sacubitril 49 mg-valsartan 51 mg 0.5 tablet PO BID 02/13/23 02/27/24 Unknown History tablet (Entresto) nitroglycerin 0.4 mg sublingual 0.4 mg sublingual Q5M PRN 02/27/24 02/27/24 Unknown History tablet tamsulosin 0.4 mg capsule 0.4 mg PO DAILY 02/27/24 02/27/24 Unknown History <Josse Connell MD - Last Filed: 04/06/24 05:23> Allergies/adverse reactions: Allergies Allergy/AdvReac Type Severity Reaction Status Date / Time No Known Allergies Allergy Verified 04/06/24 04:47 <Josse Connell MD - Last Filed: 04/06/24 05:23> Review of Systems 2 Review of Systems: A 10 system review of systems was completed on the patient and is negative except for what is stated in the HPI. Nursing and ancillary documentation was reviewed. 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) History of colon polyps History of myocardial infarction x3 per patient Bruises easily History of stress test Hypertension Fatty liver Environmental allergies Essential (primary) hypertension History of COVID-19 02/2020, 05/2021 Positive colorectal cancer screening using DNA-based stool test (~06/2019) Nonrheumatic mitral (valve) insufficiency (~2009) Nonrheumatic tricuspid (valve) insufficiency (~2009) Unspecified diastolic (congestive) heart failure (~2009) Ischemic dilated cardiomyopathy (~2009) Hypothyroidism <Josse Connell MD - Last Filed: 04/06/24 05:23> Surgical History Surgical History: Surgical History H/O transurethral resection of bladder tumor (TURBT) (~11/2023) History of PTCA (~02/2010) 12/29/1997 @ 47 y/o LAD stent x1 11/08/2003 @ 53 y/o LAD stent x2 06/25/2007 @ 57 y/o PCI diagonal 05/21/2006 @ 56 years: PCI to LAD 10/23/2004 @ 54 years PTCA to OM 02/2010 :last stent 09/2016: PCI to LAD Dr. Santana 2019 Patient states he has a total of 15 stents (?) History of cholecystectomy (~03/2011) <Josse Connell MD - Last Filed: 04/06/24 05:23> Family History Family History: Family History Father Heart disease Mother Heart disease Sibling Heart disease Other Family history of coronary artery disease <Josse Connell MD - Last Filed: 04/06/24 05:23> Social History Social History: Social History Smoking packs per day: 3 Smoking cigarettes per day: 60.0 Years smoked: 30 Smoking pack-years: 90.00 Smoking status: Former smoker Tobacco type: cigarettes Smoking end date: 03/31/77 Alcohol intake: never Substance use: never Lack of Transportation: No Lack of Food: Never True Current Housing: Decline to Answer Concerned About Future Housing: No Difficulty Paying Gas/Electric Bills: No Difficulty Paying for Meds: No Currently Unemployed: No Education: High School Diploma/GED Difficulty w/ Childcare or Family Care: No Living arrangements: with family Additional living arrangements comments: 2nd marriage: fathered 2 sons from first marriage Occupation/Education: retired 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 HEAD: Normocephalic, atraumatic. EYES: PERRLA and EOMI. ENT: Nares clear, no rhinorrhea or epistaxis. Mucous membranes moist. NECK: Supple. CHEST: Clear to auscultation. No respiratory distress. HEART: Regular rate and rhythm. No murmur heard. Normal peripheral pulses. ABDOMEN: Soft, nontender, nondistended, normal active bowel sounds. EXTREMITIES: Normal range of motion. No edema. SKIN: Warm, dry, no rash. NEURO: No focal deficits. Alert and oriented x3. PSYCH: Normal mood and affect. <Josse Connell MD - Last Filed: 04/06/24 05:23> Course Course Emergency Course: Patient signed out to me. I am told he has a history of multiple stents and received care through [facility]. He has an upcoming bladder procedure in [place] and wanted to be assessed prior to this procedure given he was having some shortness of breath. He had denied CP. He was signed out pending 2nd troponin which is normal and the EKG looks similar to the initial. BNP only slightly elevated, x-ray normal, viral swab negative. Patient will be discharged home in stable condition. <Jaci Mcclellan MD - Last Filed: 04/07/24 06:05> Vital Signs Vital signs: Vital Signs Temperature 97.9 F 04/06/24 04:44 Pulse Rate 58 L 04/06/24 04:44 Respiratory Rate 15 04/06/24 04:44 Blood Pressure 124/78 04/06/24 04:44 Pulse Oximetry 98 04/06/24 04:44 Oxygen Delivery Autopap 04/06/24 04:44 Temperature 97.9 F 04/06/24 04:44 Pulse Rate 63 04/06/24 09:30 Respiratory Rate 16 04/06/24 09:30 Blood Pressure 110/63 04/06/24 09:30 Pulse Oximetry 99 04/06/24 09:30 Oxygen Delivery Autopap 04/06/24 04:44 <Josse Connell MD - Last Filed: 04/06/24 05:23> Vital Signs Temperature 97.9 F 04/06/24 04:44 Pulse Rate 58 L 04/06/24 04:44 Respiratory Rate 15 04/06/24 04:44 Blood Pressure 124/78 04/06/24 04:44 Pulse Oximetry 98 04/06/24 04:44 Oxygen Delivery Autopap 04/06/24 04:44 Temperature 97.9 F 04/06/24 04:44 Pulse Rate 63 04/06/24 09:30 Respiratory Rate 16 04/06/24 09:30 Blood Pressure 110/63 04/06/24 09:30 Pulse Oximetry 99 04/06/24 09:30 Oxygen Delivery Autopap 04/06/24 04:44 <Jaci Mcclellan MD - Last Filed: 04/07/24 06:05> Medical Decision Making Vital Signs Vital Signs: Vital Signs Temperature 97.9 F 04/06/24 04:44 Pulse Rate 58 L 04/06/24 04:44 Respiratory Rate 15 04/06/24 04:44 Blood Pressure 124/78 04/06/24 04:44 Pulse Oximetry 98 04/06/24 04:44 Oxygen Delivery Autopap 04/06/24 04:44 Temperature 97.9 F 04/06/24 04:44 Pulse Rate 63 04/06/24 09:30 Respiratory Rate 16 04/06/24 09:30 Blood Pressure 110/63 04/06/24 09:30 Pulse Oximetry 99 04/06/24 09:30 Oxygen Delivery Autopap 04/06/24 04:44 <Josse Connell MD - Last Filed: 04/06/24 05:23> Vital Signs Temperature 97.9 F 04/06/24 04:44 Pulse Rate 58 L 04/06/24 04:44 Respiratory Rate 15 04/06/24 04:44 Blood Pressure 124/78 04/06/24 04:44 Pulse Oximetry 98 04/06/24 04:44 Oxygen Delivery Autopap 04/06/24 04:44 Temperature 97.9 F 04/06/24 04:44 Pulse Rate 63 04/06/24 09:30 Respiratory Rate 16 04/06/24 09:30 Blood Pressure 110/63 04/06/24 09:30 Pulse Oximetry 99 04/06/24 09:30 Oxygen Delivery Autopap 04/06/24 04:44 <Jaci Mcclellan MD - Last Filed: 04/07/24 06:05> Lab Data Result diagrams: 04/06/24 05:01 04/06/24 05:01 <Josse Connell MD - Last Filed: 04/06/24 05:23> Labs: Lab Results 04/06/24 04/06/24 Range/Units 05:01 08:07 WBC 8.3 (4.5-10.0) K/mm3 RBC 3.71 L (4.6-6.20) M/mm3 Hgb 12.4 L (14.0-18.0) g/dL Hct 36.1 L (42.0-52.0) % MCV 97.3 (80-100) fl MCH 33.4 (26-34) pg MCHC 34.3 (32-36) g/dl RDW 14.6 H (11.5-14.5) % Plt Count 181 (150-375) k/mm3 MPV 9.3 (7.4-10.4) fl Immature Gran % (Auto) 0.4 (0-0.5) % Neut % (Auto) 73.2 H (45.5-73.1) % Lymph % (Auto) 10.2 L (18.3-44.2) % [place] % (Auto) 10.9 H (2.6-8.5) % Eos % (Auto) 4.6 H (0-4.4) % Baso % (Auto) 0.7 (0.2-1.2) % Lymph # (Auto) 0.85 L (0.9-3.2) K/mm3 [place] # (Auto) 0.9 H (0.1-0.6) K/mm3 Eos # (Auto) 0.4 H (0-0.3) K/mm3 Baso # (Auto) 0.1 (0.0-0.1) K/mm3 Abs Immat Gran (auto) 0.03 (0.00-0.031) K/mm3 Absolute Neuts (auto) 6.1 (1.3-6.7) K/mm3 Absolute Nucleated RBC 0.000 (0.0-0.012) K/mm3 Nucleated RBC % 0.0 (0.0-0.2) % PT 14.4 (11.1-14.7) Seconds INR 1.1 APTT 27.3 (22.3-36.8) Seconds Sodium 137 (137-145) mmol/L Potassium 3.7 (3.4-5.0) mmol/L Chloride 103 (98-107) mmol/L Carbon Dioxide 30 (22-30) mmol/L Anion Gap 4 (4-12) mmol/L BUN 19 (9-20) mg/dL Creatinine 0.90 (0.7-1.3) mg/dL Estim Creat Clear Calc 69 ml/min Estimated GFR > 60 (59 - ) Glucose 110 (65-110) mg/dL Calcium 8.8 (8.4-10.2) mg/dL Total Bilirubin 0.6 (0.2-1.3) mg/dL AST 19 (17-59) U/L ALT 17 (6-50) U/L Alkaline Phosphatase 70 (38-126) U/L Troponin I < 0.012 < 0.012 (0.000-0.034) ng/mL NT-Pro-B Natriuret Pep 206 H (19.9-100) pg/mL Total Protein 7.0 (6.3-8.2) g/dL Albumin 3.7 (3.5-5.1) g/dL Lipase 97 (23-300) U/L Influenza A (RT-PCR) Negative (Negative) Influenza B (RT-PCR) Negative (Negative) RSV (RT-PCR) Negative (Negative) SARS-CoV-2 RNA (RT-PCR) Negative (Negative) <Josse Connell MD - Last Filed: 04/06/24 05:23> Lab Results 04/06/24 04/06/24 Range/Units 05:01 08:07 WBC 8.3 (4.5-10.0) K/mm3 RBC 3.71 L (4.6-6.20) M/mm3 Hgb 12.4 L (14.0-18.0) g/dL Hct 36.1 L (42.0-52.0) % MCV 97.3 (80-100) fl MCH 33.4 (26-34) pg MCHC 34.3 (32-36) g/dl RDW 14.6 H (11.5-14.5) % Plt Count 181 (150-375) k/mm3 MPV 9.3 (7.4-10.4) fl Immature Gran % (Auto) 0.4 (0-0.5) % Neut % (Auto) 73.2 H (45.5-73.1) % Lymph % (Auto) 10.2 L (18.3-44.2) % [place] % (Auto) 10.9 H (2.6-8.5) % Eos % (Auto) 4.6 H (0-4.4) % Baso % (Auto) 0.7 (0.2-1.2) % Lymph # (Auto) 0.85 L (0.9-3.2) K/mm3 [place] # (Auto) 0.9 H (0.1-0.6) K/mm3 Eos # (Auto) 0.4 H (0-0.3) K/mm3 Baso # (Auto) 0.1 (0.0-0.1) K/mm3 Abs Immat Gran (auto) 0.03 (0.00-0.031) K/mm3 Absolute Neuts (auto) 6.1 (1.3-6.7) K/mm3 Absolute Nucleated RBC 0.000 (0.0-0.012) K/mm3 Nucleated RBC % 0.0 (0.0-0.2) % PT 14.4 (11.1-14.7) Seconds INR 1.1 APTT 27.3 (22.3-36.8) Seconds Sodium 137 (137-145) mmol/L Potassium 3.7 (3.4-5.0) mmol/L Chloride 103 (98-107) mmol/L Carbon Dioxide 30 (22-30) mmol/L Anion Gap 4 (4-12) mmol/L BUN 19 (9-20) mg/dL Creatinine 0.90 (0.7-1.3) mg/dL Estim Creat Clear Calc 69 ml/min Estimated GFR > 60 (59 - ) Glucose 110 (65-110) mg/dL Calcium 8.8 (8.4-10.2) mg/dL Total Bilirubin 0.6 (0.2-1.3) mg/dL AST 19 (17-59) U/L ALT 17 (6-50) U/L Alkaline Phosphatase 70 (38-126) U/L Troponin I < 0.012 < 0.012 (0.000-0.034) ng/mL NT-Pro-B Natriuret Pep 206 H (19.9-100) pg/mL Total Protein 7.0 (6.3-8.2) g/dL Albumin 3.7 (3.5-5.1) g/dL Lipase 97 (23-300) U/L Influenza A (RT-PCR) Negative (Negative) Influenza B (RT-PCR) Negative (Negative) RSV (RT-PCR) Negative (Negative) SARS-CoV-2 RNA (RT-PCR) Negative (Negative) <Jaci Mcclellan MD - Last Filed: 04/07/24 06:05> Discharge Plan Discharge Clinical Impression: Shortness of breath <Josse Connell MD - Last Filed: 04/06/24 05:23> Patient Disposition: Home, Self-Care <Josse Connell MD - Last Filed: 04/06/24 05:23> Condition: Stable <Josse Connell MD - Last Filed: 04/06/24 05:23> Instructions: Antibiotic Form, Shortness of Breath (ED) <Josse Connell MD - Last Filed: 04/06/24 05:23> Additional Instructions: No clearly identifiable cause of your shortness of breath no given your risk factors of stent(s), we did include a cardiac workup that included 2 EKGs and 2 troponins. Follow-up with your primary care physician as well as the rest of your care team. Should be able to proceed with your bladder procedure. Return to the emergency department with any new or worsening symptoms <Josse Connell MD - Last Filed: 04/06/24 05:23> Patient Language: Korean <Josse Connell MD - Last Filed: 04/06/24 05:23> Prescriptions: No Action clopidogrel [Plavix] 75 mg tablet 75 mg PO DAILY rosuvastatin [Crestor] 20 mg tablet 20 mg PO QHS metoprolol succinate 25 mg tablet extended release 24 hr 25 mg PO DAILY Entresto 49-51 mg tablet 0.5 tablet PO BID tamsulosin 0.4 mg capsule 0.4 mg PO DAILY nitroglycerin 0.4 mg tablet, sublingual 0.4 mg sublingual Q5M PRN furosemide 40 mg tablet 40 mg PO QAM levothyroxine 50 mcg tablet 50 mcg PO DAILY Qty: 90 0RF <Josse Connell MD - Last Filed: 04/06/24 05:23> Follow-up/Referrals: Maria Reyes MD [Primary Care Provider] - <Josse Connell MD - Last Filed: 04/06/24 05:23> Stand Alone Forms: Work/School Release IP <Josse Connell MD - Last Filed: 04/06/24 05:23> Time of Disposition: 08:49 <Josse Connell MD - Last Filed: 04/06/24 05:23> 08:49 <Jaci Mcclellan MD - Last Filed: 04/07/24 06:05>
[2024-04-06 05:29] LABS: INR 1.1; Prothrombin Time 14.4 Seconds (11.1-14.7)
[2024-04-06 05:30] LABS: Partial Thromboplastin Time 27.3 Seconds (22.3-36.8)
[2024-04-06 05:45] LABS: Alanine Aminotransferase 17 U/L (6-50); Albumin Level 3.7 g/dL (3.5-5.1); Alkaline Phosphatase 70 U/L (38-126); Anion Gap 4 mmol/L (4-12); Aspartate Amino Transferase 19 U/L (17-59); Bilirubin,Total 0.6 mg/dL (0.2-1.3); Blood Urea Nitrogen 19 mg/dL (9-20); Calcium 8.8 mg/dL (8.4-10.2); Carbon Dioxide 30 mmol/L (22-30); Chloride 103 mmol/L (98-107); Estimated CRCL calculation 69 ml/min; Estimated Glomerular Filt Rate > 60; Glucose 110 mg/dL (65-110); Lipase 97 U/L (23-300); Potassium 3.7 mmol/L (3.4-5.0); Sodium 137 mmol/L (137-145)
[2024-04-06 05:46] LABS: Influenza A QL RT-PCR Negative (Negative); Influenza B QL RT-PCR Negative (Negative); RSV RNA, RT-PCR Negative (Negative); SARS-CoV-2 RNA PCR Negative (Negative)
[2024-04-06 05:50] LABS: NT Pro B Type Natriuretic Pept 206 pg/mL (19.9-100); Troponin I < 0.012 ng/mL (0.000-0.034)
[2024-04-06 06:23] VITALS: BP 114/70; PULSE 56; RESP 15; O2SAT 99
[2024-04-06 07:22] VITALS: BP 105/66; PULSE 56; RESP 13; O2SAT 97
--- NOTE | 2024-04-06 08:16 | ECG_ITS ---
Test Date: 2024-04-06 08:22:34 Measurements Intervals [place] Rate: 56 P: 148 PA: 171 QRS: -30 QRSD: 173 T: 24 QT: 467 QTc: 451 Interpretive Statements SINUS BRADYCARDIA RIGHT BUNDLE BRANCH BLOCK [120+ ms QRS DURATION, UPRIGHT V1, 40+ ms S IN I/aVL/V4/V5/V6] Compared to ECG 04/06/2024 05:01:18 NO SIGNIFICANT CHANGES Electronically Signed On 04-07-2024 17:31:23 [employer] by Margaret Trotter M.D.
[2024-04-06 08:34] LABS: Troponin I < 0.012 ng/mL (0.000-0.034)
[2024-04-06 09:30] VITALS: BP 110/63; PULSE 63; RESP 16; O2SAT 99
--- OUTSIDE RECORDS SUMMARY | 2024-04-12 11:23 | XMS_ITS | Encounter Summary ---
Author Name [facility] [facility] [place] Address [address] [place] [id number] Care Team Providers Care Bottom Painter Name Role Phone ELZA GRIER Primary Care Provider [facility] Insurance Providers: All historical and current Section Date Range: From patient's date of to the date document was created. This section includes the names of all active insurance providers for the patient. Insurance Provider Type of Coverage Plan Name Start of Policy Coverage End of Policy Coverage Group Number Member ID Insurance Provider's Telephone Number Policy Arceo's Name Patient's Relationship to Policy Arceo [place] SUPPLEMEN [place] MEDIC ARE SUPPL EMEMT Jun 29, 2020 [id number] [phone] Lionel RORDIGUEZ PATIENT ANTHE[place] SUPPLEMEN [place] MEDIC ARE SUPPL EM[place]T Jun 29, 2020 [id number] [phone] Lionel RODRIGUEZ PATIENT AN[place] SUPPLEMEN [place] MEDIC ARE SUPPL EMENT Jun 29, 2020 [id number] [phone] Lionel RODRIGUEZ PATIENT AN[place] PREFERRED PROVIDER ORGANIZAT ION (PPO) TEAMS TER + EMPLO YERS Jul 10, 2005 [id number] [phone] Lionel RODRIGUEZ PATIENT [place] SUPPLEMEN [place] MED[employer] ARE SUPPL [place] Jun 29, 2020 [id number] [phone] MICHAEL,J [place] PATIENT [place] PREFERRED PROVIDER ORGANIZAT ION (PPO) TEAMS TER + EMPLO [facility] Sep 28, 2002 [id number] [phone] MICHAEL,J [place] PATIENT MEDICARE (WNR) MEDICARE (M) PART A Jan 29, 2013 PART A [id number] MICHAEL,J [place] PATIENT MEDICARE (WNR) MEDICARE (M) PART B Jan 29, 2013 PART B [id number] [phone] MICHAEL,J [place] PATIENT Selected Encounter This section includes the information on record at [facility] for the Encounter. Date/Time Encounter Type Encounter Description Reason Provider Source Nov 19, 2023 03:01 PM OFFICE O/P EST LOW 20 MIN PRIMARY CARE/MEDICINE ICD-10-CM I25.10 [place] heart disease [place] coronary artery w/o ang pctrs [facility] Encounter Template Text not used by [place] Assessments - Encounter Diagnoses This section includes the primary and secondary diagnoses documented for the Encounter. Date/Time Primary/Secondary Diagnosis Diagnosis Name Provider Source Nov 19, 2023 03:39 PM PRIMARY [place]scl heart disease [place] coronary artery w/o ang pctrs [facility] Nov 19, 2023 03:39 PM SECONDARY Chronic diastolic [facility]congestive) heart [facility] Nov 19, 2023 03:39 PM SECONDARY Essential (primary) hypertension [facility] Nov 19, 2023 03:39 PM SECONDARY Hyperlipidemia, unspecified [facility] Nov 19, 2023 03:39 PM SECONDARY Hypothyroidism, unspecified [facility] Nov 19, 2023 03:39 PM SECONDARY Neoplasm of unspecified behavior of bladder [facility] Lab Results: +/- 30 days of the encounter This section includes the Chemistry and Hematology Lab Results on record with [facility] for the patient. Radiology Reports and Pathology Reports are provided separately, in subsequent sections. Lab Results This section contains the Chemistry/Hematology Results that were resulted 30 days before or 30 daysafter the date of the Encounter. Date/Time Source Result Type Result - Unit Interpretation Reference Range Comment Nov 21, 2023 11:10 AM [facility] LIPID PANEL (STL) Specimen Type: PLASMA Comment: No hemolysis noted. Ordering Provider: ELZA GRIER Report Released Date/Time: Oct 04, 2023 05:25 PM Reporting Lab: [facility] [address] [facility] [phone] Performing Lab: [facility] [address] [facility] [phone] CHOLESTEROL 69 mg/dL 0-200 TRIGLYCERIDE 92 mg/dL 0-150 CALCULATED LDL 26 mg/dL HDL(New) 25 mg/dL L >40 Nov 21, 2023 11:10 AM [facility] COMPREHENSIVE METABOLIC PANEL Specimen Type: PLASMA Comment: No hemolysis noted. Ordering Provider: ELZA GRIER Report Released Date/Time: Oct 04, 2023 05:25 PM Reporting Lab: [facility] [address] [facility] [address] Performing Lab: [facility] [address] [facility] [phone] CREATININE 0.98 mg/dL 0.7-1.3 UREA NITROGEN 13.6 mg/dL 9.0-25.0 GLUCOSE 109 mg/dL H 72-99 SODIUM 140 meq/L 136-145 POTASSIUM 4.0 meq/L 3.5-5 CHLORIDE 107 meq/L 98-107 CARBON DIOXIDE 24 meq/L 22-31 CALCIUM 9.2 mg/dL 8.4-10.4 PROTEIN 7.2 g/dL 6-8.6 ALBUMIN 3.8 g/dL 3.4-5 TOTAL BILIRUBIN 0.9 mg/dL 0.2-1.2 ALKALINE PHOSPHATASE 71 U/L 40-150 AST/SGOT 16 U/L 5-34 ALT/SGPT 12 U/L 8-40 EGFR (CKD-EPI 2020) 80.4 >60 Nov 21, 2023 11:10 AM [facility] HGA1C Specimen Type: BLOOD No comment entered. Ordering Provider: ELZA GRIER Report Released Date/Time: Oct 04, 2023 05:25 PM Reporting Lab: [facility] [address] [place] [phone] Performing Lab: [address] [address] HGA1C 5.6 4.0-6.0 Nov 21, 2023 11:10 AM [facility] VITAMIN D, 25-HYDROXY Specimen Type: SERUM Comment: The listed sex of this patient may not be a typical indication for this test. Therefore, reference ranges or interpretive criteria listed may not be valid. Clinical correlation suggested. Ordering Provider: ELZA GRIER Report Released Date/Time: Oct 04, 2023 05:25 PM Reporting Lab: [address] [phone] Performing Lab: [address] [phone] VITAMIN D, 25-HYDROXY 35.3 ng/mL 30-96 Nov 21, 2023 11:10 AM [facility] CBC Specimen Type: BLOOD No comment entered. Ordering Provider: ELZA GRIER Report Released Date/Time: Oct 04, 2023 05:25 PM Reporting Lab: [address] [phone] Performing Lab: [address] [phone] WBC 7.9 10*3/uL 3.6-11.2 RBC 3.64 10*6/uL L 4.10-5.70 HGB 11.9 g/dL L 13.1-16.8 HCT 35.0 L 38.2-48.4 MCV 96.2 fL 80.0-100.0 MCH 32.7 pg 27.0-34.0 MCHC 34.0 g/dL 33.0-36.0 PLT 189 10*3/uL 150-400 MPV 9.6 fL 7.5-11.2 RDW 14.6 11.8-15.1 LYMPHOCYTES, AUTO % 17 MONOCYTES, AUTO % 11 NEUTROPHILS, AUTO % 69 EOSINOPHILS, AUTO % 2 BASOPHILS, AUTO % 0 LYMPHOCYTES, ABSOLUTE 1.33 10*3/uL 0.77-4.50 MONOCYTES, ABSOLUTE 0.90 10*3/uL H 0.19-0.80 NEUTROPHILS, ABSOLUTE 5.47 10*3/uL 2.10-8.00 EOSINOPHILS, ABSOLUTE 0.12 10*3/uL 0.00-0.60 BASOPHILS, ABSOLUTE 0.03 10*3/uL 0.00-0.20 Nov 21, 2023 11:10 AM [facility] TSH W/ REFLEX FT4 (STL) Specimen Type: PLASMA No comment entered. Ordering Provider: ELZA GRIER Report Released Date/Time: Oct 04, 2023 05:25 PM Reporting Lab: [facility] [address] [place] [phone] Performing Lab: [address] [address] TSH 4.294 u[IU]/mL 0.47-5 Nov 21, 2023 11:10 AM [facility] FREE T4 (STL) Specimen Type: PLASMA No comment entered. Ordering Provider: ELZA GRIER Report Released Date/Time: Oct 04, 2023 05:25 PM Reporting Lab: [facility] [address] [place] [phone] Performing Lab: [address] [address] FREE T4 (STL) 0.90 ng/mL 0.7-1.48 Nov 21, 2023 11:10 AM [facility] PROST. SPECIFIC AG.(PB-STL) Specimen Type: SERUM Comment: The listed sex of this patient may not be a typical indication for this test. Therefore, reference ranges or interpretive criteria listed may not be valid. Clinical correlation suggested. Ordering Provider: ELZA GRIER Report Released Date/Time: Oct 04, 2023 05:25 PM Reporting Lab: [facility] [address] [facility] [phone] Performing Lab: [address] [phone] PROST. SPECIFIC AG.(PB-STL) 4.592 ng/mL HH 0-4 Vital Signs: All taken on the encounter date This section contains inpatient and outpatient Vital Signs collected on the date of the Encounter. Date/Time Temperature Pulse Blood Pressure Respiratory Rate SP02 Pain Height Weight Body Mass Index Source Nov 19, 2023 02:57 PM 98.1 64 128/81 18 96 0 197 26 [facility] Social History: Smoking Status (Most current) and Tobacco Use (All prior to encounter date) This section includes the most current, and the historical, smoking and tobacco- related health factors from the [facility] facility where the Encounter took place. Current Smoking Status This section includes the most current smoking, or tobacco-related health factor, from the [facility] facility where the Encounter took place. Date/Time Current Smoking Status Comment Facil ity Nov 19, 2023 03:00 PM VA-TOBACCO NEVER USED [facility] Encounter Notes: All associated encounter notes This section contains the clinical notes associated to the Encounter. Date/Time Encounter Note(s) Provider Source Nov 19, 2023 03:09 PM PRIMARY CARE NOTE: LOCAL TITLE: PRIMARY CARE PROVIDER ESTABLISHED VISIT [facility] STANDARD TITLE: PRIMARY CARE NOTE DATE OF NOTE: NOV 19, 2023@15:09 ENTRY DATE: NOV 19, 2023@15:10:15 AUTHOR: MARGUERITE PAEZ COSIGNER: URGENCY: STATUS: COMPLETED Visit conducted by synchronous video telehealth; patient verbal consent obtained. Location and emergency point of contact and/or number confirmed [place]'s identity was confirmed with two (2) forms of identification: Full Name, full SSN, or Date of . This visit was conducted today by: _x_ CVT (audio/visual) Connection 's telephone number: Names of other individuals present during this visit: none Patient is a 73 MALE. Chief Complaint: annual f/u HPI: No ER visits or hospitalizations since last visit. presents today to discuss chronic medical problems. Labs not done prior to visit. Reports that he was having some intermittent hematuria- follows with civilian urologist Dr. Martin with [facility], [place]. Needing refills on meds- almost out of levothyroxine. Follows with civilian PCP who does his colonoscopy- not interested in having at [facility] at this time. PAST MEDICAL HISTORY: PROBLEM LIST 1) Coronary atherosclerosis (SNOMED CT 620816715) 2) Hyperlipidemia (SNOMED CT 01690107) 3) Congestive heart failure 4) Benign essential hypertension 5) Prediabetes 6) Hypothyroidism SOCIAL HISTORY: Reviewed and no changes identified. FAMILY HISTORY: Reviewed and no changes identified. Surgical History: Reviewed and no changes identified. OUTSIDE Providers: Allergies: Patient has answered NKA MEDICATIONS: Active Outpatient Medications (including Supplies): Active Outpatient Medications Status 1) ASPIRIN 81MG EC TAB TAKE ONE TABLET BY MOUTH ONCE A ACTIVE DAY FOR CARDIOVASCULAR DISEASE TAKE WITH FOOD 2) CLOPIDOGREL BISULFATE 75MG TAB TAKE ONE TABLET BY ACTIVE MOUTH ONCE A DAY FOR ACUTE CORONARY SYNDROME 3) FUROSEMIDE 40MG TAB TAKE ONE TABLET BY MOUTH EVERY ACTIVE MORNING FOR FLUID RETENTION (EDEMA) 4) LEVOTHYROXINE NA (SYNTHROID) 50MCG TAB TAKE ONE ACTIVE TABLET BY MOUTH EVERY MORNING BEFORE A MEAL FOR HYPOTHYROIDISM TAKE 30 MINUTES BEFORE FOOD. TAKE SEPARATELY FROM ALL OTHER MEDICATIONS. 5) METOPROLOL SUCCINATE 50MG SA TAB TAKE ONE-HALF TABLET ACTIVE BY MOUTH ONCE A DAY FOR HIGH BLOOD PRESSURE SWALLOW WHOLE, DO NOT CRUSH OR CHEW (TABLETS MAY BE CUT IN HALF). 6) ROSUVASTATIN CA 40MG TAB TAKE ONE TABLET BY MOUTH ACTIVE EVERY EVENING FOR HIGH CHOLESTEROL 7) SACUBITRIL 49MG/VALSARTAN 51MG TAB TAKE ONE-HALF ACTIVE TABLET BY MOUTH TWICE A DAY FOR HEART FAILURE Medication reconciliation done. Current medications reviewed and counseled patient regarding each medication, name, dose, route, frequency, and indication. Compared newly ordered medications and medication changes to active medications and non-VA medications, and then reviewed medications with patient and/or caregiver. All discrepancies noted and reconciled. REVIEW OF SYSTEMS: General: No weight change, No fever, No chills, No night sweats, No fatigue. ENT/Mouth: No hearing changes, No ear pain, No nasal congestion, No sinus pain, No hoarseness, No sore throat, No swallowing difficulty. EYES: No eye pain, No swelling, No redness, No vision changes, No discharge. Cardiovascular: No chest pain, No SOB, NO orthopnea, No palpitations, No edema, No claudication. Respiratory: No cough, No sputum, No wheezing, No dyspnea GI: No Nausea, No vomiting, NO diarrhea, NO constipation, No pain, NO heartburn, No jaundice, No hematochezia, No melena. : No dysuria, No urinary frequency, No hematuria, No urgency, No flank pain Musculoskeletal: No arthralgias, No myalgias, NO joint swelling, No joint stiffness, No back pain, No neck pain. Skin: No rash, NO hair changes, NO skin lesions or nodules. Neuro: No weakness, No numbness or paresthesias, NO syncope, NO dizziness, No headache, No seizures. Psych: No anxiety, No depression, No insomnia, No SI/HI. Heme/lymph: No bruising, No bleeding, No lymphadenopathy. Endocrine: No polyuria, No polydipsia, No temperature difference PHYSICAL EXAM: PHYSICAL EXAMINATION: This exam was conducted via Video Connection with the aid of the camera and PACT nurse assistance. Pleasant, cooperative, well-developed, well-nourished, appropriately dressed and groomed ; in no acute distress. EYES: Conjunctiva clear without erythema, sclera anteric. Neck: Appears symmetric with no obvious masses. Respiratory: no audible wheezing, visualized accessory muscle use, hyperventilation or hypoventilation. Abdomen/gastrointestinal: no visualized distension. Musculoskeletal: good muscle tone, adequate ROM. No visualized joint edema or erythema. Extremities: No LE/pedal edema. Psychiatric: Appropriate affect, intact judgement and insight, memory appears intact. Neurologic: nonfocal, alert, oriented, and cooperative with exam. Skin: good color ASSESSMENT & PLAN: 1) Coronary atherosclerosis: appears to be stable with current treatment. 2) Hyperlipidemia: labs ordered to be done today. On statin. 3) Congestive heart failure: appears to be stable with current treatment, no s/s edema/dyspnea. 4) Benign essential hypertension: appears to be stable with current treatment. 5) Hypothyroidism: on levothyroxie- labs today- he is almost out of med- will proceed with refill. 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 Declines colonoscopy- has it done outside [facility] per his civilian PCP. Shared medical decision making occurred during this visit with the . Questions answered and is agreeable with treatment plan. Advised to keep all scheduled medical and follow-up appointments. [place] was advised to seek medical treatment if symptoms do not improve and or worsens. Length of visit: 30 minutes RTC: 1 year or prn Screen for Abd Aortic Aneurysm: The patient declines to undergo ultrasound to screen for possible abdominal aortic aneurysm. Comment: reprots he has this done by his civilian PCP- declines to have done at [facility] Avg Risk Colorectal Cancer Screen: AVERAGE RISK colorectal cancer screening is due based on information available to this clinical reminder Patient has arranged or is choosing to arrange this care independent of and without assistance from this [facility]. Comment: reports he follows with civilian PCP Patient declined screening/surveillance. Comment: follws with civilian PCP /fredy/ [facility] Signed: 11/19/2023 15:41 Receipt Acknowledged By: 12/01/2023 22:33 /fredy/ Elza Grier MD Staff Physician MARGUERITE PAEZ [facility]
--- OUTSIDE RECORDS SUMMARY | 2024-04-12 11:23 | XMS_ITS | Encounter Summary ---
Author Name [facility] [facility] [place] [facility] [place] Address [address] [place] [address] Care Team Providers Care Gunner'S Mate Name Role Phone ELZA GRIER Primary Care Provider Monie hackett Insurance Providers: All historical and current Section [...] MEDIC ARE SUPPL EMEMT Jun 29, 2020 [id number] [phone] Lionel RODRIGUEZ [place] PATIENT ANTHEM BCBS [place] MEDICARE SUPPLEMEN [place] MEDIC ARE SUPPL EMEMT Jun 29, 2020 [id number] [phone] Lionel RODRIGUEZ [place] PATIENT [place] SUPP[place] MEDIC ARE SUPPL EMENT Jun 29, 2020 [id number] [phone] Lionel RODRIGUEZ [place] PATIENT [place] PREFERRED PROVIDER ORGANIZAT ION (PPO) TEAMS TER + EMPLO YERS Jul 10, 2005 [id number] [phone] Lionel RODRIGUEZ [place] PATIENT [place] MEDICARE SUPPLEMEN [place] MEDIC ARE SUPPL EMEMT Jun 29, 2020 [id number] [phone] MICHAEL,J [place] PATIENT [place] PREFERRED PROVIDER ORGANIZAT ION (PPO) TEAMS TER + EMPLO [facility] Sep 28, 2002 [id number] [phone] MICHAEL,J [place] PATIENT MEDICARE (WNR) MEDICARE (M) PART A Jan 29, 2013 PART A [id number] [phone] MICHAEL,J [place] PATIENT MEDICARE (WNR) MEDICARE (M) PART B Jan 29, 2013 PART B [id number] MICHAEL,J [place] PATIENT Selected Encounter This section includes the information on record at [place] for the Encounter. Date/Time Encounter Type Encounter Description Reason Provider Source Nov 21, 2023 08:07 AM Outpatient Encounter EYE TELE SCREENING ICD-10-CM Z13.5 Encounter for screening for eye and ear disorders JUDY GARCAI [facility] Encounter Template Text not used by [facility] Assessments - Encounter Diagnoses This section includes the primary and secondary diagnoses documented for the Encounter. Date/Time Primary/Secondary Diagnosis Diagnosis Name Provider Source Nov 21, 2023 08:07 AM PRIMARY Encounter for screening for eye and ear disorders JUDY GARCIA [facility] Nov 21, 2023 08:07 AM SECONDARY Drusen (degenerative) of macula, right eye JUDY GARCIA [facility] Nov 21, 2023 08:07 AM SECONDARY Other age-related incipient cataract, left eye JUDY GARCIA [facility] Nov 21, 2023 08:07 AM SECONDARY Other age-related incipient cataract, right eye JUDY GARCIA [facility] Nov 21, 2023 08:07 AM SECONDARY Retinal hemorrhage, left eye JUDY GARCIA [facility] Lab Results: +/- 30 days of the [...] Range Comment Nov 21, 2023 11:10 AM [facility] LIPID PANEL (STL) Specimen Type: PLASMA Comment: No hemolysis noted. Ordering Provider: ELZA GRIER Report Released Date/Time: Oct 04, 2023 05:25 PM Reporting Lab: [facility] [address] [place] [phone] Performing Lab: [address] [address] CHOLESTEROL 69 mg/dL 0-200 TRIGLYCERIDE 92 mg/dL 0-150 CALCULATED LDL 26 mg/dL HDL(New) 25 mg/dL L >40 Nov 21, 2023 11:10 AM [facility] COMPREHENSIVE METABOLIC PANEL Specimen Type: PLASMA Comment: No hemolysis noted. Ordering Provider: ELZA GRIER Report Released Date/Time: Oct 04, 2023 05:25 PM Reporting Lab: [address] [address] Performing Lab: [address] [address] CREATININE 0.98 mg/dL 0.7-1.3 UREA NITROGEN 13.6 [...] 80.4 >60 Nov 21, 2023 11:10 AM [facility] HGA1C Specimen Type: BLOOD No comment entered. Ordering Provider: ELZA GRIER Report Released Date/Time: Oct 04, 2023 05:25 PM Reporting Lab: [address] [address] Performing Lab: [facility] [address] [facility] [address] HGA1C 5.6 4.0-6.0 Nov 21, 2023 11:10 AM [facility] VITAMIN D, 25-HYDROXY Specimen Type: SERUM Comment: The listed sex of this patient may not be a typical indication for this test. Therefore, reference ranges or interpretive criteria listed may not be valid. Clinical correlation suggested. Ordering Provider: ELZA GRIER Report Released Date/Time: Oct 04, 2023 05:25 PM Reporting Lab: [facility] [address] [facility] [address] Performing Lab: [facility] [address] [place] [phone] VITAMIN D, 25-HYDROXY 35.3 ng/mL 30-96 Nov 21, 2023 11:10 AM [facility] CBC Specimen Type: BLOOD No comment entered. Ordering Provider: ELZA GRIER Report Released Date/Time: Oct 04, 2023 05:25 PM Reporting Lab: [facility] [address] [facility] [address] Performing Lab: [facility] [address] [place] [phone] WBC 7.9 10*3/uL 3.6-11.2 RBC 3.64 10*6/uL [...] 10*3/uL 0.00-0.20 Nov 21, 2023 11:10 AM [facility] TSH W/ REFLEX FT4 (STL) Specimen Type: PLASMA No comment entered. Ordering Provider: ELZA GRIER Report Released Date/Time: Oct 04, 2023 05:25 PM Reporting Lab: [facility] [address] [place] [phone] Performing Lab: [address] [address] TSH 4.294 u[IU]/mL 0.47-5 Nov 21, 2023 11:10 AM [facility] PROST. SPECIFIC AG.(PB-STL) Specimen Type: SERUM Comment: The listed sex of this patient may not be a typical indication for this test. Therefore, reference ranges or interpretive criteria listed may not be valid. Clinical correlation suggested. Ordering Provider: ELZA GRIER Report Released Date/Time: Oct 04, 2023 05:25 PM Reporting Lab: [facility] [address] [place] [phone] Performing Lab: [address] [address] PROST. SPECIFIC AG.(PB-STL) 4.592 ng/mL HH 0-4 Nov 21, 2023 11:10 AM [facility] FREE T4 (STL) Specimen Type: PLASMA No comment entered. Ordering Provider: ELZA GRIER Report Released Date/Time: Oct 04, 2023 05:25 PM Reporting Lab: [facility] [address] [place] [phone] Performing Lab: [address] [address] FREE T4 (STL) 0.90 ng/mL 0.7-1.48 Social History: Smoking Status (Most current) and [...] took place. Date/Time Current Smoking Status Comment Natalee santy Nov 19, 2023 03:00 PM VA-TOBACCO NEVER USED [facility] Encounter Notes: All associated encounter notes This section contains the clinical notes associated to the Encounter. Date/Time Encounter Note(s) Provider Source Nov 21, 2023 09:28 AM LETTERS: LOCAL TITLE: TELE-EYE RESULTS LETTER STANDARD TITLE: LETTERS DATE OF NOTE: NOV 21, 2023@09:28 ENTRY DATE: NOV 21, 2023@09:28:14 AUTHOR: DAMIÁN JOSHUA COSIGNER: URGENCY: STATUS: COMPLETED NOV 21, 2023 MITCHELL RODRIGUEZ [address] [place] [id number] Dear Mitchell Rodriguez: You are receiving this letter in regard to your recent [facility] EYE SCREENING. The purpose of the screening is to detect specific vision-threatening conditions such as diabetic retinopathy (if you are diabetic), macular degeneration, and glaucoma. Early detection of eye disease can be important to reduce the risk of permanent vision loss. Your information and testing was reviewed by a licensed [facility] eye care provider. The date of review and findings are noted below: Screening Exam Findings 11/21/2023 No macular degeneration apparent No glaucoma apparent *FURTHER ASSESSMENT/MONITORING NEEDED FOR OTHER FINDINGS* Recommendations: 11/21/2023 Return to [facility] in 6 MONTHS *Please note that incidental findings outside the primary focus of this screening may be noted within the detailed report of the visit. This report can be accessed online through [employer] (www.[email or web address].gov) or requested through your VA Medical Records/Release of Information office. If you have been seen by a non-VA eye care provider, please bring your records to your next VA appointment to be scanned into your medical record. If you are a tobacco user, VA provides tobacco cessation services which can reduce the risk of eye disease as well as risks to your overall health. Please discuss with your VA Primary Care team for more information. Thank you for allowing us to serve you. [facility] Healthcare Team Digital retinal imaging has been shown to be an effective method of screening for specific eye conditions, but cannot substitute for a comprehensive eye exam. Comprehensive eye exams are recommended every 1-2 years, or more frequently as determined by the presence of risk factors, early signs or symptoms, or known history of eye disease. DAMIÁN JOSHUA [facility] Nov 21, 2023 08:07 AM OPTOMETRY CONSULT: LOCAL TITLE: DIABETIC TELERETINAL IMAGING CONSULT STANDARD TITLE: OPTOMETRY CONSULT DATE OF NOTE: NOV 21, 2023@08:07 ENTRY DATE: NOV 21, 2023@08:07:59 AUTHOR: JUDY GARCIA COSIGNER: URGENCY: STATUS: COMPLETED TELE-EYE SCREENING READER NOTE: IMAGE QUALITY ASSESSMENT: Image quality adequate TELE-EYE SCREENING ASSESSMENT: Non-Diabetic Patient: Risk Factors: At-Risk for Macular Degeneration RIGHT RETINAL IMAGES: Macula Assessment: Drusen Optic Nerve Head Assessment: No apparent abnormalities Other Assessment: Age-Appropriate Lenticular Changes LEFT RETINAL IMAGES: Macula Assessment: No apparent abnormalities Optic Nerve Head Assessment: No apparent abnormalities Other Assessment: Age-Appropriate Lenticular Changes Intraretinal Hemorrhage(s) 1-[address] EYE SCREENING RESULTS: Macular Degeneration: Normal - No macular degeneration apparent Glaucoma: Normal - No glaucomatous nerve damage apparent Other Findings: ABNORMAL - FURTHER ASSESSMENT/MONITORING NEEDED RECOMMENDATIONS: Refer for [id number]-[id number] [facility] eye exam Refer to: [facility] 6 months: May Referral/appointment reason: Comprehensive eye exam recommended for next eye care visit Other findings Possible trace retinal hemorrhages OS, follow-up with dilated eye exam [place] verifies that a review of past eye clinic records has been completed (if available) and a review for future eye appointments has been completed to help reduce duplication of care. Yes Cumulative time of review and management: 5 minutes or more * Digital retinal imaging has been shown to be an effective method * * of screening for conditions such as diabetic retinopathy, but it * * cannot substitute for a comprehensive sygr-co-lknv eye exam. * * * * Comprehensive eye exams are recommended every 1-2 years, or more * * frequently as determined by the presence of risk factors, early * * signs or symptoms, or known history of ocular disease. * * * * [facility] is a self refer/direct-scheduling service that allows * * you to call to schedule an appointment without a referral being * * required. We recommend calling to schedule your appointment at * * least 90 days in advance of the desired appointment date. * Appendix (abbreviations): AC (Anterior Chamber); AREDS (Age Related Eye Disease Study); ARX (Auto Refraction); BID (Two Times Daily); C:D (Cup-to-Disc); CIC (Care In The Community); AREA PLANT MANAGER (Cyclophotocoagulation); CSME (Clinically Significant Macular Edema); DFE (Dilated Fundus Exam); Dorz/Timol (Dorzolamide/Timolol); DSEK (Descemet's Stripping Endothelial Keratoplasty); FAF (Fundus Autofluorescence); F/U (Follow up); GCC (Ganglion Cell Complex); Gonio (Gonioscopy); H/O (History Of); HTN (Hypertension); HVF (Chan Visual Field); IOL (Intraocular Lens); IOP (Intraocular Pressure); K (Keratometry); LASIK (Laser-Assisted In Situ Keratomileusis); MD (Mean Deviation when used with visual field); dB (decibels); MRx (Manifest Refraction); NeoPolyDex/Erythro (Neomycin Polymyxin B Dexamethasone/Erythromycin ); NFL (Nerve Fiber Layer); NPDR (Nonproliferative Diabetic Retinopathy); OCT (Optical Coherence Tomography); OD (Right Eye); OS (Left Eye); OU (Both Eyes); PDR (Proliferative Diabetic Retinopathy); PFATs (Preservative Free Artificial Tears); RK (Radial Keratotomy); RNFL (Retinal Nerve Fiber Layer); RTC (Return To Clinic); scVA (Visual Acuity Without Correction/Glasses); JOSE ALEJANDRO (Korean Interactive Threshold Algorithm); TID (Three Times Daily); UV (Ultraviolet); VA (Visual Acuity); WRx (Prescription glasses currently worn); WRx VA (Visual Acuity With Prescription Glasses); YAG (Yttrium Aluminum [place]) /fredy/ Judy Garcia, LY Staff Physician, Optometry Signed: 11/21/2023 08:12 Receipt Acknowledged By: 11/21/2023 09:27 /fredy/ DAMIÁN JOSHUA Telehealth Clinical Rod Straightener JUDY GARCIA [facility]
--- OUTSIDE RECORDS SUMMARY | 2024-04-12 11:23 | XMS_ITS ---
Author Name [facility] [place] [facility] [place] Address [address] [place] [id number] Care Team Providers Care Manager Unit Name Role Phone ELZA GRIER Primary Care Provider [facility] Insurance Providers: All historical and current [...] MEDIC ARE SUPPL EMEMT Jun 29, 2020 [id number] [phone] Lionel RODRIGUEZN PATIENT ANTHEM BCBS [place] MED[place] SUPPLEMEN [place] MEDIC ARE SUPPL EMEMT Jun 29, 2020 [id number] [phone] Lionel RODRIGUEZN PATIENT [place] MEDIC ARE SUPPL EMENT Jun 29, 2020 [id number] [phone] iLonel RODRIGUEZ PATIENT [place] PREFERRED PROVIDER ORGANIZAT ION (PPO) TEAMS TER + EMPLO YERS Jul 10, 2005 [id number] [phone] Lionel RODRIGUEZN PATIENT [place] MED[place] SUPPLEMEN [place] MEDIC ARE SUPPL EMEMT Jun 29, 2020 [id number] [phone] MICHAEL,J [place] PAT[place] PREFERRED PROVIDER ORGANIZAT ION (PPO) TEAMS TER + EMPLO YERS Sep 28, 2002 [id number] [phone] MICHAEL,J [place] PATIENT MEDICARE (WNR) MEDICARE (M) PART A Jan 29, 2013 PART A [id number] MICHAEL,J [place] PATIENT MEDICARE (WNR) MEDICARE (M) PART B Jan 29, 2013 PART B [id number] MICHAEL,J OH[place] PATIENT Selected Encounter This section includes the information on record at [place] for the Encounter. Date/Time Encounter Type Encounter Description Reason Provider Source Dec 01, 2023 10:15 PM Outpatient Encounter ADMIN PAT ACTIVTIES (MASNONCT) ELZA GRIER IH Encounter Template Text not used by [place] Lab Results: +/- 30 days of the encounter This section includes the Chemistry and Hematology Lab Results on record with [place] for the patient. Radiology Reports and Pathology Reports are provided separately, in subsequent sections. Lab Results This section contains the Chemistry/Hematology Results that were resulted 30 days before or 30 daysafter the date of the Encounter. Date/Time Source Result Type Result - Unit Interpretation Reference Range Comment Nov 21, 2023 11:10 AM [facility] LIPID PANEL (STL) Specimen Type: PLASMA Comment: No hemolysis noted. Ordering Provider: ELZA GRIER Report Released Date/Time: Oct 04, 2023 05:25 PM Reporting Lab: [facility] [address] [facility] [address] Performing Lab: [facility] [address] [facility] [address] CHOLESTEROL 69 mg/dL 0-200 TRIGLYCERIDE 92 mg/dL 0-150 CALCULATED LDL 26 mg/dL HDL(New) 25 mg/dL L >40 Nov 21, 2023 11:10 AM [facility] COMPREHENSIVE METABOLIC PANEL Specimen Type: PLASMA Comment: No hemolysis noted. Ordering Provider: ELZA GRIER Report Released Date/Time: Oct 04, 2023 05:25 PM Reporting Lab: [facility] [address] [facility] [address] Performing Lab: [address] [address] CREATININE 0.98 mg/dL 0.7-1.3 UREA NITROGEN 13.6 [...] 80.4 >60 Nov 21, 2023 11:10 AM [facility] HGA1C Specimen Type: BLOOD No comment entered. Ordering Provider: ELZA GRIER Report Released Date/Time: Oct 04, 2023 05:25 PM Reporting Lab: [address] [address] Performing Lab: [address] [address] HGA1C 5.6 4.0-6.0 Nov 21, 2023 11:10 AM [facility] VITAMIN D, 25-HYDROXY Specimen Type: SERUM Comment: The listed sex of this patient may not be a typical indication for this test. Therefore, reference ranges or interpretive criteria listed may not be valid. Clinical correlation suggested. Ordering Provider: ELZA GRIER Report Released Date/Time: Oct 04, 2023 05:25 PM Reporting Lab: [facility] [address] [place] [phone] Performing Lab: [address] [address] VITAMIN D, 25-HYDROXY 35.3 ng/mL 30-96 Nov 21, 2023 11:[address] [facility] CBC Specimen Type: BLOOD No comment entered. Ordering Provider: ELZA GRIER Report Released Date/Time: Oct 04, 2023 05:25 PM Reporting Lab: [facility] [address] [facility] [address] Performing Lab: [facility] [address] [facility] [address] WBC 7.9 10*3/uL 3.6-11.2 RBC 3.64 10*6/uL [...] 10*3/uL 0.00-0.20 Nov 21, 2023 11:10 AM [facility] TSH W/ REFLEX FT4 (STL) Specimen Type: PLASMA No comment entered. Ordering Provider: ELZA GRIER Report Released Date/Time: Oct 04, 2023 05:25 PM Reporting Lab: [facility] [address] [facility] [address] Performing Lab: [facility] [address] [place] [phone] TSH 4.294 u[IU]/mL 0.47-5 Nov 21, 2023 11:10 AM [facility] FREE T4 (STL) Specimen Type: PLASMA No comment entered. Ordering Provider: ELZA GRIER Report Released Date/Time: Oct 04, 2023 05:25 PM Reporting Lab: [address] [address] Performing Lab: [place] [address] [facility] [address] FREE T4 (STL) 0.90 ng/mL 0.7-1.48 Nov 21, 2023 11:10 AM [facility] PROST. SPECIFIC AG.(PB-STL) Specimen Type: SERUM Comment: The listed sex of this patient may not be a typical indication for this test. Therefore, reference ranges or interpretive criteria listed may not be valid. Clinical correlation suggested. Ordering Provider: ELZA GRIER Report Released Date/Time: Oct 04, 2023 05:25 PM Reporting Lab: [address] [address] Performing Lab: [address] [address] PROST. SPECIFIC AG.(PB-STL) 4.592 ng/mL HH 0-4 Social History: Smoking Status (Most current) and Tobacco Use (All prior to encounter date) This section includes the most current, and the historical, smoking and tobacco- related health factors from the [place] facility where the Encounter took place. Current Smoking Status This section includes the most current smoking, or tobacco-related health factor, from the [place] facility where the Encounter took place. Date/Time Current Smoking Status Comment Natalee madera Nov 19, 2023 03:00 PM VA-TOBACCO NEVER USED [facility] Encounter Notes: All associated encounter notes This section contains the clinical notes associated to the Encounter. Date/Time Encounter Note(s) Provider Source Dec 01, 2023 10:15 PM PHYSICIAN LETTERS: LOCAL TITLE: TEST RESULT GENERAL LETTER STL STANDARD TITLE: PHYSICIAN LETTERS DATE OF NOTE: DEC 01, 2023@22:15 ENTRY DATE: DEC 01, 2023@22:15:28 AUTHOR: ELZA GRIER EXP COSIGNER: URGENCY: STATUS: COMPLETED [place] [address] [place] [address] DEC 01, 2023 MITCHELL RODRIGUEZ [address] [place], [place] [address] Dear Mitchell Rodriguez, I would like to update you on your recent test results. LIPID PROFILE - High cholesterol and triglycerides (lipids) are risk factors for heart disease. Your cholesterol should fall between 140 and 200, and your triglycerides levels should be less than or equal to 150. HDL is the good cholesterol and should ideally be greater than 40. LDL is the bad cholesterol and optimal levels should be less than 100 (near optimal is between 100 and 129). TRIGLYCERIDE 92 mg/dL 11/21/2023 11:10 CHOLESTEROL 69 mg/dL 11/21/2023 11:10 HDL(New) 25 L mg/dL 11/21/2023 11:10 CALCULATED LDL 26 mg/dL 11/21/2023 11:10 These readings are within normal limits. HEMOGLOBIN A1C - Gives us information about your diabetes (sugar or glucose) control over the past 3 months. Your target is to keep your A1C below 6.5 %. HGA1C 5.6 % 11/21/2023 11:10 These readings are within normal limits. CBC - A complete blood count (CBC) gives important information about the kinds and numbers of cells in the blood, especially red blood cells, white blood cells, and platelets. HGB 11.9 L g/dL 11/21/2023 11:10 HEMATOCRIT 35.0 % L (11/21/23 11:10) PLT 189 10*3/uL 11/21/2023 11:10 WHITE BLOOD COUNT 7.9 10*3/uL (11/21/23 11:10) These results are abnormal. Shows you are anemic as compared to previous CBC results please discuss with your PMD Dr Espinal at [facility] May need colonoscopy and further evaluation CHEM 7 - This is important information about the current status of your kidneys, liver, and electrolyte and acid/base balance as well as of your blood sugar and blood proteins. SODIUM 140 mEq/L 11/21/2023 11:10 POTASSIUM 4.0 mEq/L 11/21/2023 11:10 CHLORIDE 107 mEq/L 11/21/2023 11:10 UREA NITROGEN 13.6 mg/dL 11/21/2023 11:10 CREATININE 0.98 mg/dL 11/21/2023 11:10 CALCIUM 9.2 mg/dL 11/21/2023 11:10 CARBON DIOXIDE 24 mEq/L 11/21/2023 11:10 GLUCOSE 109 H mg/dL 11/21/2023 11:10 EGFR (CKD-EPI 2020) 80.4 11/21/2023 11:10 These readings are within normal limits. LIVER FUNCTION PANEL - These are tests for liver function: PROTEIN 7.2 g/dL 11/21/2023 11:10 ALBUMIN 3.8 g/dL 11/21/2023 11:10 TOTAL BILIRUBIN 0.9 mg/dL 11/21/2023 11:10 ALKALINE PHOSPHATASE 71 U/L 11/21/2023 11:10 AST/SGOT 16 U/L 11/21/2023 11:10 ALT/SGPT 12 U/L 11/21/2023 11:10 These readings are within normal limits. PSA - Prostate-specific antigen is a protein produced by cells of the prostate gland. The PSA test measures the level of PSA in the blood. PSA PROST. SPECIFIC AG.(PB-STL) 4.592 H* ng/mL 11/21/2023 11:10 These results are abnormal. Need repeat PSA and further evaluation and referred to to urology as discussed with PMD Dr Espinal at [facility] We can repeat this PSA here at [place] please let me know TSH - Thyroid-stimulating hormone (also known as TSH or thyrotropin) is a peptide hormone synthesized and secreted by thyrotrope cells in the anterior pituitary gland, which regulates the endocrine function of the thyroid gland. TSH 4.294 uIU/mL 11/21/2023 11:10 These readings are within normal limits. VITAMIN D - Helps promote the proper utilization of calcium and phosphorus, thereby producing proper bone maintenance. VITAMIN D, 25-HYDROXY 35.3 ng/mL 11/21/2023 11:10 These readings are within normal limits. PLAN Please continue your treatment as we discussed during your visit. If you have any questions please call your case consultant. I look forward to seeing you at your next clinic appointment. Thank you for choosing the [facility] for your healthcare. FUTURE APPOINTMENTS: 09/28/2024 11:30 -[facility] PACT B5 PCP Sincerely, Elza Grier MD Staff Physician MITCHELL RODRIGUEZ,ELZA Mark [facility]
--- OUTSIDE RECORDS SUMMARY | 2024-04-12 11:23 | XMS_ITS ---
Author Name [facility] [place] [facility] [place] [facility] [place] Address [address] [place] [id number] Care Team Providers Care Motorcyles Final Inspector Name Role Phone ELZA GRIER Primary Care Provider [facility] e Insurance Providers: All historical and current [...] MEDIC ARE SUPPL EMEMT Jun 29, 2020 [id number] [phone] Lionel RODRIGUEZN PATIENT ANTHE[place] MEDIC[place] SUPPLEMEN [place] MEDIC ARE SUPPL EMEMT Jun 29, 2020 [id number] [phone] Lionel RODRIGUEZN PATIENT [place] SUPPLEMEN [place] MEDIC ARE SUPPL EMENT Jun 29, 2020 [id number] [phone] Lionel RODRIGUEZ PATIENT [place] PREFERRED PROVIDER ORGANIZAT ION (PPO) TEAMS TER + EMPLO YERS Jul 10, 2005 [id number] [phone] Lionel RODRIGUEZN PATIENT [place] MEDIC[place] SUPPLEMEN [place] MEDIC ARE SUPPL EMEMT Jun 29, 2020 [id number] [phone] MICHAEL,J [place] PATIENT [place] PREFERRED PROVIDER ORGANIZAT ION (PPO) TEAMS TER + EMPLO YERS Sep 28, 2002 [id number] [phone] MICHAEL,J [place] PATIENT MEDICARE (WNR) MEDICARE (M) PART A Jan 29, 2013 PART A [id number] [phone] MICHAEL,J [place] PATIENT MEDICARE (WNR) MEDICARE (M) PART B Jan 29, 2013 PART B [id number] MICHAEL,J [place] PATIENT Selected Encounter This section includes the information on record at [place] for the Encounter. Date/Time Encounter Type Encounter Description Reason Pro vider Source Nov 19, 2023 03:00 PM Outpatient Encounter ADMIN PAT ACTIVTIES (MASNONCT) IHE Encounter Template [facility] not used by [facility] Lab Results: +/- 30 days of the encounter This section includes the Chemistry and Hematology Lab Results on record with CT for the patient. Radiology Reports and Pathology Reports are provided separately, in subsequent sections. Lab Results This section contains the Chemistry/Hematology Results that were resulted 30 days before or 30 daysafter the date of the Encounter. Date/Time Source Result Type Result - Unit Interpretation Reference Range Comment Nov 21, 2023 11:10 AM [facility] LIPID PANEL (STL) Specimen Type: PLASMA Comment: No hemolysis noted. Ordering Provider: ELZA GRIER Report Released Date/Time: Oct 04, 2023 05:25 PM Reporting Lab: [facility] [address] [facility] [address] Performing Lab: [facility] [address] [facility] [address] CHOLESTEROL 69 mg/dL 0-200 TRIGLYCERIDE 92 mg/dL 0-150 CALCULATED LDL 26 mg/dL HDL(New) 25 mg/dL L >40 Nov 21, 2023 11:10 AM [facility] COMPREHENSIVE METABOLIC PANEL Specimen Type: PLASMA Comment: No hemolysis noted. Ordering Provider: ELZA GRIER Report Released Date/Time: Oct 04, 2023 05:25 PM Reporting Lab: [facility] [address] [facility] [address] Performing Lab: [facility] [address] [facility] [address] CREATININE 0.98 mg/dL 0.7-1.3 UREA NITROGEN 13.6 [...] 80.4 >60 Nov 21, 2023 11:10 AM [facility] HGA1C Specimen Type: BLOOD No comment entered. Ordering Provider: ELZA GRIER Report Released Date/Time: Oct 04, 2023 05:25 PM Reporting Lab: [facility] [address] [facility] [address] Performing Lab: [facility] [address] [place] [address] HGA1C 5.6 4.0-6.0 Nov 21, 2023 11:10 AM [facility] VITAMIN D, 25-HYDROXY Specimen Type: SERUM Comment: The listed sex of this patient may not be a typical indication for this test. Therefore, reference ranges or interpretive criteria listed may not be valid. Clinical correlation suggested. Ordering Provider: ELZA GRIER Report Released Date/Time: Oct 04, 2023 05:25 PM Reporting Lab: [facility] [address] [facility] [address] Performing Lab: [facility] [address] [place] [phone] VITAMIN D, 25-HYDROXY 35.3 ng/mL 30-96 Nov 21, 2023 11:10 AM [facility] CBC Specimen Type: BLOOD No comment entered. Ordering Provider: ELZA GRIER Report Released Date/Time: Oct 04, 2023 05:25 PM Reporting Lab: [facility] [address] [facility] [address] Performing Lab: [facility] [address] [facility] [address] WBC 7.9 10*3/uL 3.6-11.2 RBC 3.64 10*6/uL [...] 10*3/uL 0.00-0.20 Nov 21, 2023 11:10 AM [facility] TSH W/ REFLEX FT4 (STL) Specimen Type: PLASMA No comment entered. Ordering Provider: ELZA GRIER Report Released Date/Time: Oct 04, 2023 05:25 PM Reporting Lab: [facility] [address] [facility] [address] Performing Lab: [facility] [address] TSH 4.294 u[IU]/mL 0.47-5 Nov 21, 2023 11:10 AM [facility] FREE T4 (STL) Specimen Type: PLASMA No comment entered. Ordering Provider: ELZA GRIER Report Released Date/Time: Oct 04, 2023 05:25 PM Reporting Lab: [facility] [address] [facility] [address] Performing Lab: [facility] [address] [facility] [address] FREE T4 (STL) 0.90 ng/mL 0.7-1.48 Nov 21, 2023 11:10 AM [facility] PROST. SPECIFIC AG.(PB-STL) Specimen Type: SERUM Comment: The listed sex of this patient may not be a typical indication for this test. Therefore, reference ranges or interpretive criteria listed may not be valid. Clinical correlation suggested. Ordering Provider: ELZA GRIER Report Released Date/Time: Oct 04, 2023 05:25 PM Reporting Lab: [facility] [address] [facility] [address] Performing Lab: [facility] [address] [facility] [address] PROST. SPECIFIC AG.(PB-STL) 4.592 ng/mL HH 0-4 Vital Signs: All taken on the encounter date This section contains inpatient and outpatient Vital Signs collected on the date of the Encounter. Date/Time Temperature Pulse Blood Pressure Respiratory Rate SP02 Pain Height Weight Body Mass Index Source Nov 19, 2023 02:57 PM 98.1 64 128/81 18 96 0 197 26 [facility] Social History: Smoking Status (Most current) and Tobacco Use (All prior to encounter date) This section includes the most current, and the historical, smoking and tobacco- related health factors from the [place] facility where the Encounter took place. Current Smoking Status This section includes the most current smoking, or tobacco-related health factor, from the [place] facility where the Encounter took place. Date/Time Current Smoking Status Comment Natalee madera Nov 19, 2023 03:00 PM VA-TOBACCO NEVER USED [facility] Encounter Notes: All associated encounter notes This section contains the clinical notes associated to the Encounter. Date/Time Encounter Note(s) Provider Source Nov 19, 2023 03:01 PM ADMINISTRATIVE NOT E: LOCAL TITLE: SCHEDULING NOTE STL STANDARD TITLE: ADMINISTRATIVE NOTE DATE OF NOTE: NOV 19, 2023@15:01 ENTRY DATE: NOV 19, 2023@15:01:03 AUTHOR: DAMIÁN JOSHUA EXP COSIGNER: URGENCY: STATUS: COMPLETED Additional comments: Spoke with face to face at [facility] schedule tele-retinal imaging today 11/19/23 at 3:30pm per patient request ADDITIONAL RESULTS FROM SCHEDULING ATTEMPTS: Spoke with /Caregiver /fredy/ DAMIÁN JOSHUA Telehealth Clinical Manager Support Signed: 11/19/2023 15:02 DAMIÁN JOSHUA [facility]
--- OUTSIDE RECORDS SUMMARY | 2024-04-12 11:23 | XMS_ITS ---
Author Name [facility] [place] [facility] [place] [facility] [place] Address [address] [place] [address] Care Team Providers Care Rubber Thread Spooler Name Role Phone ELZA GRIER Primary Care Provider [facility] e Insurance Providers: All historical and current [...] MEDIC ARE SUPPL EMEMT Jun 29, 2020 [id number] [phone] Lionel RODRIGUEZ [place] PATIENT ANTHE[place] MED[place] SUPPLEMEN [place] MEDIC ARE SUPPL EMEMT Jun 29, 2020 [id number] [phone] Lionel RODRIGUEZ [place] PATIENT [place] MEDIC ARE SUPPL EMENT Jun 29, 2020 [id number] [phone] Lionel RODRIGUEZN PATIENT [place] PREFERRED PROVIDER ORGANIZAT ION (PPO) TEAMS TER + EMPLO YERS Jul 10, 2005 [id number] [phone] Lionel RODRIGUEZ [place] PATIENT [place] MED[place] SUPPLEMEN [place] MEDIC ARE SUPPL EMEMT Jun 29, 2020 [id number] [phone] MICHAEL,J [place] PATIENT [place] PREFERRED PROVIDER ORGANIZAT ION (PPO) TEAMS TER + EMPLO [facility] Sep 28, 2002 [id number] [phone] MICHAEL,J [place] PATIENT MEDICARE (WNR) MEDICARE (M) PART A Jan 29, 2013 PART A [id number] MICHAEL,J [place] PATIENT MEDICARE (WNR) MEDICARE (M) PART B Jan 29, 2013 PART B [id number] [phone] MICHAEL,J [place] PATIENT Selected Encounter This section includes the [place] for the Encounter. Date/Time Encounter Type Encounter Description Reason Pro vider Source Nov 19, 2023 12:00 AM Outpatient Encounter EVENT (HISTORICAL) IHE Encounter Template Text not used by [place] Lab Results: +/- 30 days of the encounter This section includes the Chemistry and Hematology Lab Results on record with [place] for the patient. Radiology Reports and Pathology Reports are provided separately, in subsequent sections. Lab Results This section contains the Chemistry/Hematology Results that were resulted 30 days before or 30 daysafter the date of the Encounter. Date/Time Source Result Type Result - Unit Interpretation Reference Range Comment Nov 21, 2023 11:10 AM [facility] LIPID PANEL (STL) Specimen Type: PLASMA Comment: No hemolysis noted. Ordering Provider: ELZA GRIER Report Released Date/Time: Oct 04, 2023 05:25 PM Reporting Lab: [facility] [address] [facility] [address] Performing Lab: [facility] [address] [facility] [address] CHOLESTEROL 69 mg/dL 0-200 TRIGLYCERIDE 92 mg/dL 0-150 CALCULATED LDL 26 mg/dL HDL(New) 25 mg/dL L >40 Nov 21, 2023 11:10 AM [facility] COMPREHENSIVE METABOLIC PANEL Specimen Type: PLASMA Comment: No hemolysis noted. Ordering Provider: ELZA GRIER Report Released Date/Time: Oct 04, 2023 05:25 PM Reporting Lab: [facility] [address] [facility] [address] Performing Lab: [facility] [address] [facility] [address] CREATININE 0.98 mg/dL 0.7-1.3 UREA NITROGEN 13.6 [...] 80.4 >60 Nov 21, 2023 11:10 AM [facility] HGA1C Specimen Type: BLOOD No comment entered. Ordering Provider: ELZA GRIER Report Released Date/Time: Oct 04, 2023 05:25 PM Reporting Lab: [facility] [address] [facility] [address] Performing Lab: [facility] [address] [place] [address] HGA1C 5.6 4.0-6.0 Nov 21, 2023 11:10 AM [facility] VITAMIN D, 25-HYDROXY Specimen Type: SERUM Comment: The listed sex of this patient may not be a typical indication for this test. Therefore, reference ranges or interpretive criteria listed may not be valid. Clinical correlation suggested. Ordering Provider: ELZA GRIER Report Released Date/Time: Oct 04, 2023 05:25 PM Reporting Lab: [facility] [address] [facility] [address] Performing Lab: [facility] [address] [place] [phone] VITAMIN D, 25-HYDROXY 35.3 ng/mL 30-96 Nov 21, 2023 11:10 AM [facility] CBC Specimen Type: BLOOD No comment entered. Ordering Provider: ELZA GRIER Report Released Date/Time: Oct 04, 2023 05:25 PM Reporting Lab: [facility] [address] [facility] [address] Performing Lab: [facility] [place] [facility] [address] WBC 7.9 10*3/uL 3.6-11.2 RBC 3.64 10*6/uL [...] 10*3/uL 0.00-0.20 Nov 21, 2023 11:10 AM [facility] TSH W/ REFLEX FT4 (STL) Specimen Type: PLASMA No comment entered. Ordering Provider: ELZA GRIER Report Released Date/Time: Oct 04, 2023 05:25 PM Reporting Lab: [facility] [address] [facility] [address] Performing Lab: [facility] [address] [place] [phone] TSH 4.294 u[IU]/mL 0.47-5 Nov 21, 2023 11:10 AM [facility] PROST. SPECIFIC AG.(PB-STL) Specimen Type: SERUM Comment: The listed sex of this patient may not be a typical indication for this test. Therefore, reference ranges or interpretive criteria listed may not be valid. Clinical correlation suggested. Ordering Provider: ELZA GRIER Report Released Date/Time: Oct 04, 2023 05:25 PM Reporting Lab: [facility] [address] [facility] [address] Performing Lab: [facility] [address] [facility] [address] PROST. SPECIFIC AG.(PB-STL) 4.592 ng/mL HH 0-4 Nov 21, 2023 11:10 AM [facility] FREE T4 (STL) Specimen Type: PLASMA No comment entered. Ordering Provider: ELZA GRIER Report Released Date/Time: Oct 04, 2023 05:25 PM Reporting Lab: [facility] [address] [facility] [address] Performing Lab: [place] [address] [facility] [address] FREE T4 (STL) 0.90 ng/mL 0.7-1.48 Vital Signs: All taken on the encounter date This section contains inpatient and outpatient Vital Signs collected on the date of the Encounter. Date/Time Temperature Pulse Blood Pressure Respiratory Rate SP02 Pain Height Weight Body Mass Index Source Nov 19, 2023 02:57 PM 98.1 64 128/81 18 96 0 197 26 [facility] Social History: Smoking Status (Most current) and Tobacco Use (All prior to encounter date) This section includes the most current, and the historical, smoking and tobacco- related health factors from the [place] facility where the Encounter took place. Current Smoking Status This section includes the most current smoking, or tobacco-related health factor, from the [place] facility where the Encounter took place. Date/Time Current Smoking Status Comment Facil santy Nov 19, 2023 03:00 PM VA-TOBACCO NEVER USED [facility]
--- OUTSIDE RECORDS SUMMARY | 2024-04-12 11:23 | XMS_ITS | Encounter Summary ---
Author Name [facility] [place] [facility] [place] Address [address] [place] [address] Care Team Providers Care Allergy And Immunology Chief Name Role Phone ELZA GRIER Primary Care Provider [facility] e Insurance Providers: All historical and [...] MEDIC ARE SUPPL EMEMT Jun 29, 2020 [id number] [phone] Lionel RODRIGUEZN PATIENT ANTHEM BCBS [place] MEDICARE SUPPLEMEN [place] MEDIC ARE SUPPL EMEMT Jun 29, 2020 [id number] [phone] Lionel RODRIGUEZ OH[place] PATIENT [place] SUPPLEMEN [place] MEDIC ARE SUPPL EMENT Jun 29, 2020 [id number] [phone] Lionel RODRIGUEZ PATIENT [place] PREFERRED PROVIDER ORGANIZAT ION (PPO) TEAMS TER + EMPLO YERS Jul 10, 2005 [id number] [phone] Lionel RODRIGUEZ [place] PATIENT BC[place] MEDICARE SUPPLEMEN [place] MEDIC ARE SUPPL EMEMT Jun 29, 2020 [id number] [phone] MICHAEL,J [place] PATIENT [place] PREFERRED PROVIDER ORGANIZAT ION (PPO) TEAMS TER + EMPLO [facility] Sep 28, 2002 [id number] [phone] MICHAEL,J [place] PATIENT MEDICARE (WNR) MEDICARE (M) PART A Jan 29, 2013 PART A [id number] [phone] MICHAEL,J [place] PATIENT MEDICARE (WNR) MEDICARE (M) PART B Jan 29, 2013 PART B [id number] MICHAEL,J OHN PATIENT Selected Encounter This section includes the information on record at [place] for the Encounter. 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 Date/Time Primary/Secondary Diagnosis Diagnosis Name Provider Source Nov 20, 2023 08:55 AM PRIMARY [place] heart disease of [place] coronary artery w/o ang pctrs [facility] Nov 20, 2023 08:55 AM SECONDARY Chronic diastolic (congestive) heart failure [facility] Nov 20, 2023 08:55 AM SECONDARY Essential (primary) hypertension [facility] Nov 20, 2023 08:55 AM SECONDARY Hyperlipidemia, unspecified [facility] Nov 20, 2023 08:55 AM SECONDARY Hypothyroidism, unspecified [facility] Lab Results: +/- 30 days of the encounter This section includes the Chemistry and Hematology Lab Results on record with [place] for the patient. Radiology Reports and Pathology Reports are provided separately, in subsequent sections. Lab Results This section contains the Chemistry/Hematology Results that were resulted 30 days before or 30 daysafter the date of the Encounter. Date/Time Source Result Type Result - Unit Interpretation Reference Range Comment Nov 21, 2023 11:10 AM [facility] LIPID PANEL (STL) Specimen Type: PLASMA Comment: No hemolysis noted. Ordering Provider: ELZA GRIER Report Released Date/Time: Oct 04, 2023 05:25 PM Reporting Lab: [facility] [address] [facility] [address] Performing Lab: [facility] [address] [place] [phone] CHOLESTEROL 69 mg/dL 0-200 TRIGLYCERIDE 92 mg/dL 0-150 CALCULATED LDL 26 mg/dL HDL(New) 25 mg/dL L >40 Nov 21, 2023 11:10 AM [facility] COMPREHENSIVE METABOLIC PANEL Specimen Type: PLASMA Comment: No hemolysis noted. Ordering Provider: ELZA GRIER Report Released Date/Time: Oct 04, 2023 05:25 PM Reporting Lab: [facility] [address] [place] [phone] Performing Lab: [facility] [address] [place] [phone] CREATININE 0.98 mg/dL 0.7-1.3 UREA NITROGEN 13.6 [...] 80.4 >60 Nov 21, 2023 11:10 AM [facility] HGA1C Specimen Type: BLOOD No comment entered. Ordering Provider: ELZA GRIER Report Released Date/Time: Oct 04, 2023 05:25 PM Reporting Lab: [facility] [address] [place] [phone] Performing Lab: [facility] [address] [facility] [address] HGA1C 5.6 4.0-6.0 Nov 21, 2023 11:10 AM [facility] CBC Specimen Type: BLOOD No comment entered. Ordering Provider: ELZA GRIER Report Released Date/Time: Oct 04, 2023 05:25 PM Reporting Lab: [address] [address] Performing Lab: [address] [address] WBC 7.9 10*3/uL 3.6-11.2 RBC 3.64 10*6/uL [...] 10*3/uL 0.00-0.20 Nov 21, 2023 11:10 AM [facility] VITAMIN D, 25-HYDROXY Specimen Type: SERUM Comment: The listed sex of this patient may not be a typical indication for this test. Therefore, reference ranges or interpretive criteria listed may not be valid. Clinical correlation suggested. Ordering Provider: ELZA GRIER Report Released Date/Time: Oct 04, 2023 05:25 PM Reporting Lab: [address] [address] Performing Lab: [place] [address] [facility] [address] VITAMIN D, 25-HYDROXY 35.3 ng/mL 30-96 Nov 21, 2023 11:10 AM [facility] TSH W/ REFLEX FT4 (STL) Specimen Type: PLASMA No comment entered. Ordering Provider: ELZA GRIER Report Released Date/Time: Oct 04, 2023 05:25 PM Reporting Lab: [address] [address] Performing Lab: [address] [address] TSH 4.294 u[IU]/mL 0.47-5 Nov 21, 2023 11:10 AM [facility] FREE T4 (STL) Specimen Type: PLASMA No comment entered. Ordering Provider: ELZA GRIER Report Released Date/Time: Oct 04, 2023 05:25 PM Reporting Lab: [address] [address] Performing Lab: [address] [address] FREE T4 (STL) 0.90 ng/mL 0.7-1.48 Nov 21, 2023 11:10 AM [facility] PROST. SPECIFIC AG.(PB-STL) Specimen Type: SERUM Comment: The listed sex of this patient may not be a typical indication for this test. Therefore, reference ranges or interpretive criteria listed may not be valid. Clinical correlation suggested. Ordering Provider: ELZA GRIER Report Released Date/Time: Oct 04, 2023 05:25 PM Reporting Lab: [address] [address] Performing Lab: [address] [address] PROST. SPECIFIC AG.(PB-STL) 4.592 ng/mL HH 0-4 Vital Signs: All taken on the encounter date This section contains inpatient and outpatient Vital Signs collected on the date of the Encounter. Date/Time Temperature Pulse Blood Pressure Respiratory Rate SP02 Pain Height Weight Body Mass Index Source Nov 19, 2023 02:57 PM 98.1 64 128/81 18 96 0 197 26 [facility] Social History: Smoking Status (Most current) and Tobacco Use (All prior to encounter date) This section includes the most current, and the historical, smoking and tobacco- related health factors from the [place] facility where the Encounter took place. Current Smoking Status This section includes the most current smoking, or tobacco-related health factor, from the [place] facility where the Encounter took place. Date/Time Current Smoking Status Comment Facil santy Nov 19, 2023 03:00 PM [place]-TOBACCO NEVER USED [facility] Encounter Notes: All associated encounter notes This section contains the clinical notes associated to the Encounter. Date/Time Encounter Note(s) Provider Source Nov 19, 2023 03:09 PM NURSING NOTE: LOCAL TITLE: V15 PACT FACE TO FACE NOTE ST STANDARD TITLE: NURSING NOTE DATE OF NOTE: NOV 19, 2023@15:09 ENTRY DATE: NOV 19, 2023@15:09:49 AUTHOR: LAMONT MENDIOLA COSIGNER: URGENCY: STATUS: COMPLETED Provider Visit: Patient Identifiers : Full Name Date of Reason for visit: Established Follow-Up Mode of Arrival: Ambulatory Allergy Review: Patient has answered NKA Allergy list reviewed and remains current. Recent Vital Signs: Temperature: 98.1 F [36.7 C] (11/19/2023 14:57) Pulse: 64 (11/19/2023 14:57) Respiration: 18 (11/19/2023 14:57) B/P: 128/81 (11/19/2023 14:57) Pain: 0 (11/19/2023 14:57) Wt: 197 lb [89.36 kg] (11/19/2023 14:57) Ht: 73 in [185.4 cm] (06/20/2006 11:18) BMI: 26.0 POX: 96% (11/19/2023 14:57) Blood sugar glucometer reading: n/a PERSONAL HEALTH INVENTORY Notes: No data available for PHI note titles PERSONAL HEALTH INVENTORY - MAP: No data available for PHI MAP What matters most to you in your life right now? --- 's Response: my shar, my lord and savior Would you like to discuss any personal problem, family problem, alcohol use, drug use, or a mental or emotional illness? No Contact provided Primary Care phone number and encouraged to call if any questions or concerns. Review that after hours nurse line [phone] and emergency room are available 21/10 for patient use. Contact verbalized good understanding. Suicide Screen: C-SSRS Screening Harvey-Suicide Severity Rating Scale (C-SSRS Screener) 1. Over the past month, have you wished you were or wished you could go to sleep and not wake up? No 2. Over the past month, have you had any actual thoughts of killing yourself? No 3. Over the past month, have you been thinking about how you might do this? Response not required due to responses to other questions. 4. Over the past month, have you had these thoughts and had some intention of acting on them? Response not required due to responses to other questions. 5. Over the past month, have you started to work out or worked out the details of how to kill yourself? Response not required due to responses to other questions. 6. If yes, at any time in the past month did you intend to carry out this plan? Response not required due to responses to other questions. 7. In your lifetime, have you ever done anything, started to do anything, or prepared to do anything to end your life (for example, collected pills, obtained a gun, gave away valuables, went to the roof but didn't jump)? No 8. If YES, was this within the past 3 months? Response not required due to responses to other questions. Alcohol Use Screen (AUDIT-C): Alcohol Screen: SCREEN FOR ALCOHOL (AUDIT-C) An alcohol screening test (AUDIT-C) was negative (score=0). 1. How often did you have a drink containing alcohol in the past year? Consider a drink to be a 12 ounce can or bottle of regular beer, 8 ounces of malt liquor, a 5 ounce glass of table wine, or a 1.5 ounce shot of liquor (like scotch, gin, or vodka). Never 2. How many drinks containing alcohol did you have on a typical day when you were drinking in the past year? Response not required due to responses to other questions. 3. How often did you have six or more drinks on one occasion in the past year? Response not required due to responses to other questions. Depression Screening: Perform PHQ-2 A PHQ-2 screen was performed. The score was 0 which is a negative screen for depression. Over the past two weeks, how often have you been bothered by the following problems? 1. Little interest or pleasure in doing things Not at all 2. Feeling down, depressed, or hopeless Not at all Tobacco Use Screening: The patient has never used tobacco. /fredy/ LAOMNT MENDIOLA LPN LICENSED PRACTICAL NURSE Signed: 11/19/2023 15:15 LAMONT MENDIOLA [facility]
--- OUTSIDE RECORDS SUMMARY | 2024-04-12 11:23 | XMS_ITS | Encounter Summary ---
Author Name [facility] [place] [facility] [place] Address [address] [place] [address] Care Team Providers Care Blue Line Trimmer Name Role Phone ELZA GRIER Primary Care [...] MEDIC ARE SUPPL EMEMT Jun 29, 2020 [id number] [phone] Lionel RODRIGUEZN PATIENT ANTHEM BC[place] MEDICARE SUPPLEMEN [place] MEDIC ARE SUPPL EMEMT Jun 29, 2020 [id number] [phone] Lionel RODRIGUEZN PATIENT [place] SUPP[place] MEDIC ARE SUPPL EMENT Jun 29, 2020 [id number] [phone] Lionel RODRIGUEZ PATIENT [place] PREFERRED PROVIDER ORGANIZAT ION (PPO) TEAMS TER + EMPLO YERS Jul 10, 2005 [id number] [phone] Lionel RODRIGUEZN PATIENT BC[place] MEDICARE SUPPLEMEN [place] MEDIC ARE SUPPL EMEMT Jun 29, 2020 [id number] [phone] MICHAEL,J [place] PATIENT [place] PREFERRED PROVIDER ORGANIZAT ION (PPO) TEAMS TER + EMPLO [facility] Sep 28, 2002 [id number] [phone] MICHAEL,J [place] PATIENT MEDICARE (WNR) MEDICARE (M) PART A Jan 29, 2013 PART A [id number] MICHAEL,J [place] PATIENT MEDICARE (WNR) MEDICARE (M) PART B Jan 29, 2013 PART B [id number] [phone] MICHAEL,J OHN PATIENT Selected Encounter This section includes the information on record at [place] for the Encounter. Date/Time Encounter Type Encounter Description Reason Provider Source Nov 19, 2023 03:30 PM IMG RTA DETCJ/MNTR DS STAFF EYE TELE SCREENING ICD-10-CM Z13.5 Encounter for screening for eye and ear disorders DAMIÁN JOSHUA [facility] Encounter Template Text not used by [facility] Assessments - Encounter Diagnoses This section includes the primary and secondary diagnoses documented for the Encounter. Date/Time Primary/Secondary Diagnosis Diagnosis Name Provider Source Nov 19, 2023 03:30 PM PRIMARY Encounter for screening for eye and ear disorders DAMIÁN JOSHUA [facility] Lab Results: +/- 30 days of the encounter This section includes the Chemistry and Hematology Lab Results on record with [place] for the patient. Radiology Reports and Pathology Reports are provided separately, in subsequent sections. Lab Results This section contains the Chemistry/Hematology Results that were resulted 30 days before or 30 daysafter the date of the Encounter. Date/Time Source Result Type Result - Unit Interpretation Reference Range Comment Nov 21, 2023 11:10 AM [facility] LIPID PANEL (STL) Specimen Type: PLASMA Comment: No hemolysis noted. Ordering Provider: ELZA GRIER Report Released Date/Time: Oct 04, 2023 05:25 PM Reporting Lab: [facility] [address] [facility] [address] Performing Lab: [facility] [address] [facility] [address] CHOLESTEROL 69 mg/dL 0-200 TRIGLYCERIDE 92 mg/dL 0-150 CALCULATED LDL 26 mg/dL HDL(New) 25 mg/dL L >40 Nov 21, 2023 11:10 AM [facility] COMPREHENSIVE METABOLIC PANEL Specimen Type: PLASMA Comment: No hemolysis noted. Ordering Provider: ELZA GRIER Report Released Date/Time: Oct 04, 2023 05:25 PM Reporting Lab: [facility] [address] [place] [phone] Performing Lab: [facility] [address] [place] [phone] CREATININE 0.98 mg/dL 0.7-1.3 UREA NITROGEN 13.6 [...] 80.4 >60 Nov 21, 2023 11:10 AM [facility] HGA1C Specimen Type: BLOOD No comment entered. Ordering Provider: ELZA GRIER Report Released Date/Time: Oct 04, 2023 05:25 PM Reporting Lab: [facility] [address] [place] [phone] Performing Lab: [facility] [address] [place] [phone] HGA1C 5.6 4.0-6.0 Nov 21, 2023 11:10 AM [facility] VITAMIN D, 25-HYDROXY Specimen Type: SERUM Comment: The listed sex of this patient may not be a typical indication for this test. Therefore, reference ranges or interpretive criteria listed may not be valid. Clinical correlation suggested. Ordering Provider: ELZA GRIER Report Released Date/Time: Oct 04, 2023 05:25 PM Reporting Lab: [facility] [address] [facility] [address] Performing Lab: [facility] [address] [facility] [address] VITAMIN D, 25-HYDROXY 35.3 ng/mL 30-96 Nov 21, 2023 11:10 AM [facility] CBC Specimen Type: BLOOD No comment entered. Ordering Provider: ELZA GRIER Report Released Date/Time: Oct 04, 2023 05:25 PM Reporting Lab: [place] [address] [facility] [address] Performing Lab: [place] [address] [facility] [address] WBC 7.9 10*3/uL 3.6-11.2 RBC 3.64 10*6/uL [...] 10*3/uL 0.00-0.20 Nov 21, 2023 11:10 AM [facility] TSH W/ REFLEX FT4 (STL) Specimen Type: PLASMA No comment entered. Ordering Provider: ELZA GRIER Report Released Date/Time: Oct 04, 2023 05:25 PM Reporting Lab: [place] [address] [facility] [address] Performing Lab: [place] [address] [facility] [address] TSH 4.294 u[IU]/mL 0.47-5 Nov 21, 2023 11:10 AM [facility] FREE T4 (STL) Specimen Type: PLASMA No comment entered. Ordering Provider: ELZA GRIER Report Released Date/Time: Oct 04, 2023 05:25 PM Reporting Lab: [facility] [address] [place] [phone] Performing Lab: [facility] [address] [facility] [address] FREE T4 (STL) 0.90 ng/mL 0.7-1.48 Nov 21, 2023 11:10 AM [facility] PROST. SPECIFIC AG.(PB-STL) Specimen Type: SERUM Comment: The listed sex of this patient may not be a typical indication for this test. Therefore, reference ranges or interpretive criteria listed may not be valid. Clinical correlation suggested. Ordering Provider: ELZA GRIER Report Released Date/Time: Oct 04, 2023 05:25 PM Reporting Lab: [facility] [address] [facility] [address] Performing Lab: [address] [address] PROST. SPECIFIC AG.(PB-STL) 4.592 ng/mL HH 0-4 Social History: Smoking Status (Most current) and Tobacco Use (All prior to encounter date) This section includes the most current, and the historical, smoking and tobacco- related health factors from the [place] facility where the Encounter took place. Current Smoking Status This section includes the most current smoking, or tobacco-related health factor, from the [place] facility where the Encounter took place. Date/Time Current Smoking Status Comment Natalee ity August 02, 2022 09:00 AM [place]-TO[place]AC[place] FORMER USER [facility] Tobacco Use History This section includes a history of the smoking, or tobacco-related health factors, that were collected on or before the date of the Encounter. The data comes from the [place] facility where the Encounter took place. Date/Time Smoking Status/Tobacco Use Comment F acility August 02, 2022 09:00 AM [place]-TO[place] QUIT 15 YRS OR MORE [facility] Encounter Notes: All associated encounter notes This section contains the clinical notes associated to the Encounter. Date/Time Encounter Note(s) Provider Source Nov 19, 2023 03:42 PM OPTOMETRY CONSULT: LOCAL TITLE: TELE-EYE SCREENING CONSULT STANDARD TITLE: OPTOMETRY CONSULT DATE OF NOTE: NOV 19, 2023@15:42 ENTRY DATE: NOV 19, 2023@15:42:49 AUTHOR: DAMIÁN JOSHUA EXP COSIGNER: URGENCY: STATUS: COMPLETED INITIAL Note PATIENT DEMOGRAPHICS: Sex: MALE Date of : Jan Patient race: WHITE Patient ethnicity: NOT OR REASON FOR REQUEST: Tele-Eye Screening for patient at-risk for the following eye condition(s): Patient states that there is no family Hx of Macular Degeneration or Glaucoma. Patient states that there has been no significant eye trauma. Patient states that he is seeing flashes slightly. Patient states he has not had any eye surgeries. 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 Narr. - Coronary atherosclerosis ([facility] [id number]) Smoking Status: Former Patient identity was verified with 2 separate identifiers prior to the beginning of visit: Yes Patient was informed that their information and images will be uploaded securely to the [place] computer system and sent to be remotely interpreted by a licensed [place] eye care provider. Findings/recommendations will be conveyed to the primary care provider who will (either directly or by designee) ensure results are communicated timely and follow up care is coordinated as necessary. Patient verbalized understanding of process and consents to proceed: Yes Last Retinal Evaluation: OPTOMETRY CLINIC LOCATION LIST [place] Date: May Method of retinal evaluation: Chief Warden Exam Comment: [facility] [place], [place] Information obtained by: Patient report Date of Next Eye Appointment: FUTURE EYE APPT No future appointment scheduled: desires eye care through the [facility] LABS[facility]VITALS: [facility] - Lab Tests Selected Collection DT Specimen Test Name Result Units Ref Range 11/28/2022 06:31 BLOOD HGA1C 5.6 % 4.0 - 6.0 08/02/2022 09:50 BLOOD HGA1C 5.7 % 4.0 - 6.0 HgbA1c range: 4-6 Blood Pressure: 128/81 (11/19/2023 14:57) INTRAOCULAR PRESSURE (IOP) SCREENING: IOP measured by office rn during eye screening Date/Time: Oct@03:45 Device Used: Rebound tonometer (iCare) Right Eye: IOP= 15 Left Eye: IOP= 13 PUPIL DILATION: Pupils NOT dilated by office rn for eye screening EDUCATION: Patient received patient education on routine eye care and the following: Diabetic Eye Disease, Glaucoma, Macular Degeneration Patient was informed on how and when results should be received. Patient was instructed on how to contact the appropriate clinical area if results are not received within expected timeframe. Yes /es/ DAMIÁN JOSHUA Telehealth Clinical Junior Net Developer Signed: 11/19/2023 15:52 DAMIÁN JOSHUA [facility]
--- OUTSIDE RECORDS SUMMARY | 2024-04-12 11:23 | XMS_ITS | Continuity of Care Document ---
Author Name [facility] Organization [facility] Care Team Providers Care Grant Specialist Name Role Phone [facility] Unavailable Unavailable Problems Combined list of problems from Department of [facility] and [facility] Affairs facilities. It does not include entries that were removed or entered in error. Problem Status Onset Date Problem Type Date of Resolution Comments Source Benign essential hypertension Active Condition [facility] Congestive heart failure Active Condition [facility] Coronary atherosclerosis (SNOMED CT 648157009) Active Condition Apr 06, 2004 Entered By: DONNY HARRISON Comment: myocardial infarction [facility] Hyperlipidemia (SNOMED CT 53061351) Active Condition [facility] Hypothyroidism Active Condition [facility] Prediabetes Active Condition [facility] Diagnosis: ICD-10-CM Z13.5 Encounter for screening for eye and ear disorders Active Diagnosis [facility] Diagnosis: ICD-10-CM I25.10 Athscl heart disease of [place] coronary artery w/o ang pctrs Active Diagnosis [facility] Diagnosis: ICD-10-CM E03.9 Hypothyroidism, unspecified Active Diagnosis [facility] Medications Combined list of outpatient medications from Department of [facility] and [facility] facilities.Medications provided include 1) outpatient medications from the last 15 months, and 2) patient-reported medications. Medication Details Route Status Patient Instructions Prescription Expires Prescription Number Last Dispense Date Ordering Provider Order Date Order Qty Source ASPIRIN 81MG TAB,EC TAKE ONE TABLET BY MOUTH ONCE A DAY FOR CARDIOVA SCULAR DISEASE TAKE WITH FOOD ORAL ACTIVE 11/19/2024 [id number] 4 ICEMARGUERITE E 2023 120 [facility] ASPIRIN 81MG TAB,EC TAKE ONE TABLET BY MOUTH ONCE A DAY FOR CARDIOVA SCULAR DISEASE TAKE WITH FOOD ORAL DISCONT INUED 02/28/2024 [id number] 4 MARVEL,JOEL YUAN T 2022 120 [facility] CLOPIDOGREL BISULFATE 75MG TAB TAKE ONE TABLET BY MOUTH ONCE A DAY FOR ACUTE CORONARY SYNDROME ORAL ACTIVE 11/19/2024 [id number] 4 MARGUERITE PAEZ 2023 90 [facility] CLOPIDOGREL BISULFATE 75MG TAB TAKE ONE TABLET BY MOUTH ONCE A DAY FOR ACUTE CORONARY SYNDROME ORAL DISCONT INUED 02/28/2024 [id number] 4 MARVEL,JOEL YUAN T 2022 90 [facility] FUROSEMIDE 40MG TAB TAKE ONE TABLET BY MOUTH EVERY MORNING FOR FLUID RETENTIO N (EDEMA) ORAL ACTIVE 11/19/2024 [id number] 4 MARGUERITE PAEZ Julisa 2023 90 [facility] FUROSEMIDE 40MG TAB TAKE ONE TABLET BY MOUTH EVERY MORNING FOR FLUID RETENTIO N (EDEMA) ORAL DISCONT INUED 02/28/2024 [id number] 4 MARVELJOEL YUAN T 2022 90 [facility] LEVOTHYROXI NE NA 50MCG TAB (SYNTHROID) TAKE ONE TABLET BY MOUTH EVERY MORNING BEFORE A MEAL FOR HYPOTHYR OIDISM TAKE 30 MINUTES BEFORE FOOD. TAKE SEPARATE LY FROM ALL OTHER MEDICATI ONS. ORAL ACTIVE 11/19/2024 [id number] 4 MARGUERITE PAEZ Julisa 2023 90 [facility] LEVOTHYROXI NE NA 50MCG TAB (SYNTHROID) TAKE ONE TABLET BY MOUTH EVERY MORNING BEFORE A MEAL FOR HYPOTHYR OIDISM TAKE 30 MINUTES BEFORE FOOD. TAKE SEPARATE LY FROM ALL OTHER MEDICATI ONS. ORAL DISCONT INUED 02/28/2024 [id number] 4 MARVEL,JOEL YUAN T 2022 90 [facility] METOPROLOL SUCCINATE 50MG TAB,SA TAKE ONE-HALF TABLET BY MOUTH ONCE A DAY FOR HIGH BLOOD PRESSURE MALLORYO W WHOLE, DO NOT CRUSH OR CHEW (TABLETS MAY BE CUT IN HALF). ORAL ACTIVE 11/19/2024 [id number] 4 MARGUERITE PAEZ 2023 45 [facility] METOPROLOL SUCCINATE 50MG TAB,SA TAKE ONE-HALF TABLET BY MOUTH ONCE A DAY FOR HIGH BLOOD PRESSURE SWALLO W WHOLE, DO NOT CRUSH OR CHEW (TABLETS MAY BE CUT IN HALF). ORAL DISCONT INUED 02/28/2024 [id number] 4 MARVEL,JOEL YUAN T 2022 45 [facility] ROSUVASTATI N CA 40MG TAB TAKE ONE TABLET BY MOUTH EVERY EVENING FOR HIGH CHOLESTE ROL ORAL ACTIVE 11/19/2024 [id number] 4 MARGUERITE PAEZ 2023 90 [facility] ROSUVASTATI N CA 40MG TAB TAKE ONE TABLET BY MOUTH EVERY EVENING FOR HIGH CHOLESTE ROL ORAL DISCONT INUED 02/28/2024 [id number] 4 MARVEL,JOEL YUAN T 2022 90 [facility] SACUBITRIL 49MG/VALSAR ABBOTT 51MG TAB TAKE ONE-HALF TABLET BY MOUTH TWICE A DAY FOR HEART FAILURE ORAL ACTIVE 11/19/2024 [id number] 4 MARGUERITE APEZ 2023 90 [facility] SACUBITRIL 49MG/VALSAR ABBOTT 51MG TAB TAKE ONE-HALF TABLET BY MOUTH TWICE A DAY FOR HEART FAILURE ORAL DISCONT INUED 02/28/2024 [id number] 4 MARVELJOEL T [address] [place] [address] Immunizations Combined list of available immunizations from the Department of Defense and Veterans Affairs facilities. Immunization Series Date Given Administered By Site Reaction Lot Number CVX Code Drug Typesetter Apprentice Status Comments Source OUTSIDE FLU SHOT (HISTORICAL) 2004 88 complet ed [facility] INFLUENZA (HISTORICAL) [address] [facility] Results Combined list of recent chemistry, hematology and other laboratory results from Department of Defense and Veterans Affairs, ranging from 15 months to all on record, depending upon the facility. Order Name Results Value Reference Range Date Interpretation Specimen Comments Source LIPID PANEL (STL) CHOLESTEROL [MASS/VOLUM E] IN SERUM OR PLASMA 69 mg/dL 0 - 200 11/20 Specimen Type: PLASMA Comment: No hemolysis noted. Ordering Provider: WISAM GRIER Report Released Date/Time: Oct 04, 2023 05:25 PM Reporting Lab: [facility] 5 [facility] [address] Performing Lab: [address] [phone] [facility] LIPID PANEL (STL) TRIGLYCERID E [MASS/VOLUM E] IN SERUM OR PLASMA 92 mg/dL 0 - 150 11/20 Specimen Type: PLASMA Comment: No hemolysis noted. Ordering Provider: WISAM GRIER Report Released Date/Time: Oct 04, 2023 05:25 PM Reporting Lab: [facility] [address] [place] [phone] Performing Lab: [facility] [address] [place] [phone] [facility] LIPID PANEL (STL) CHOLESTEROL IN LDL [MASS/VOLUM E] IN SERUM OR PLASMA BY CALCULATION 26 mg/dL 11/20 Specimen Type: PLASMA Comment: No hemolysis noted. Ordering Provider: WISAM GRIER Report Released Date/Time: Oct 04, 2023 05:25 PM Reporting Lab: [facility] [address] [place] [phone] Performing Lab: [facility] [address] [place] [phone] [facility] LIPID PANEL (STL) CHOLESTEROL IN HDL [MASS/VOLUM E] IN SERUM OR PLASMA 25 mg/dL 40 11/20 L Specimen Type: PLASMA Comment: No hemolysis noted. Ordering Provider: WISAM GRIER Report Released Date/Time: Oct 04, 2023 05:25 PM Reporting Lab: [facility] [address] [facility] [address] Performing Lab: [facility] [address] [facility] [address] [facility] COMPREHEN SIVE METABOLIC PANEL CREATININE [MASS/VOLUM E] IN SERUM OR PLASMA 0.98 mg/dL 0.7 - 1.3 11/20 Specimen Type: PLASMA Comment: No hemolysis noted. Ordering Provider: WISAM GRIER Report Released Date/Time: Oct 04, 2023 05:25 PM Reporting Lab: [facility] [address] [facility] [address] Performing Lab: [facility] [address] [place] [phone] [place] [address] COMPREHEN SIVE METABOLIC PANEL UREA NITROGEN [MASS/VOLUM E] IN SERUM OR PLASMA 13.6 mg/dL 9.0 - 25.0 11/20 Specimen Type: PLASMA Comment: No hemolysis noted. Ordering Provider: WISAM GRIER Report Released Date/Time: Oct 04, 2023 05:25 PM Reporting Lab: [facility] [address] [place] [phone] Performing Lab: [facility] [address] [facility] [address] [facility] COMPREHEN SIVE METABOLIC PANEL GLUCOSE [MASS/VOLUM E] IN SERUM OR PLASMA 109 mg/dL 72 - 99 11/20 H Specimen Type: PLASMA Comment: No hemolysis noted. Ordering Provider: WISAM GRIER Report Released Date/Time: Oct 04, 2023 05:25 PM Reporting Lab: [facility] [address] [place] [phone] Performing Lab: [facility] [address] [place] [phone] [facility] COMPREHEN SIVE METABOLIC PANEL SODIUM [MOLES/VOLU ME] IN SERUM OR PLASMA 140 meq/L 136 - 145 11/20 Specimen Type: PLASMA Comment: No hemolysis noted. Ordering Provider: WISAM GRIER Report Released Date/Time: Oct 04, 2023 05:25 PM Reporting Lab: [facility] [address] [facility] [address] Performing Lab: [facility] [address] [place] [phone] [facility] COMPREHEN SIVE METABOLIC PANEL POTASSIUM [MOLES/VOLU ME] IN SERUM OR PLASMA 4.0 meq/L 3.5 - 5 11/20 Specimen Type: PLASMA Comment: No hemolysis noted. Ordering Provider: WISAM GRIER Report Released Date/Time: Oct 04, 2023 05:25 PM Reporting Lab: [facility] [address] [place] [phone] Performing Lab: [facility] [address] [place] [phone] [place] [address] COMPREHEN SIVE METABOLIC PANEL CHLORIDE [MOLES/VOLU ME] IN SERUM OR PLASMA 107 meq/L 98 - 107 11/20 Specimen Type: PLASMA Comment: No hemolysis noted. Ordering Provider: WISAM GRIER Report Released Date/Time: Oct 04, 2023 05:25 PM Reporting Lab: [facility] [address] [place] [phone] Performing Lab: [facility] [address] [place] [phone] [facility] COMPREHEN SIVE METABOLIC PANEL CARBON DIOXIDE, TOTAL [MOLES/VOLU ME] IN SERUM OR PLASMA 24 meq/L 22 - 31 11/20 Specimen Type: PLASMA Comment: No hemolysis noted. Ordering Provider: WISAM GRIER Report Released Date/Time: Oct 04, 2023 05:25 PM Reporting Lab: [facility] [address] [place] [phone] Performing Lab: [facility] [address] [place] [phone] [facility] COMPREHEN SIVE METABOLIC PANEL CALCIUM [MASS/VOLUM E] IN SERUM OR PLASMA 9.2 mg/dL 8.4 - 10.4 11/20 Specimen Type: PLASMA Comment: No hemolysis noted. Ordering Provider: WISAM GRIER Report Released Date/Time: Oct 04, 2023 05:25 PM Reporting Lab: [facility] [address] [place] [phone] Performing Lab: [facility] [address] [place] [phone] [facility] COMPREHEN SIVE METABOLIC PANEL PROTEIN [MASS/VOLUM E] IN SERUM OR PLASMA 7.2 g/dL 6 - 8.6 11/20 Specimen Type: PLASMA Comment: No hemolysis noted. Ordering Provider: WISAM GRIER Report Released Date/Time: Oct 04, 2023 05:25 PM Reporting Lab: [facility] [address] [place] [phone] Performing Lab: [facility] [address] [place] [phone] [facility] COMPREHEN SIVE METABOLIC PANEL ALBUMIN [MASS/VOLUM E] IN SERUM OR PLASMA 3.8 g/dL 3.4 - 5 11/20 Specimen Type: PLASMA Comment: No hemolysis noted. Ordering Provider: WISAM GRIER Report Released Date/Time: Oct 04, 2023 05:25 PM Reporting Lab: [facility] [address] [place] [phone] Performing Lab: [facility] [address] [place] [phone] [facility] COMPREHEN SIVE METABOLIC PANEL BILIRUBIN.T OTAL [MASS/VOLUM E] IN SERUM OR PLASMA 0.9 mg/dL 0.2 - 1.2 11/20 Specimen Type: PLASMA Comment: No hemolysis noted. Ordering Provider: WISAM GRIER Report Released Date/Time: Oct 04, 2023 05:25 PM Reporting Lab: [facility] [address] [place] [phone] Performing Lab: [facility] [address] [place] [phone] [facility] COMPREHEN SIVE METABOLIC PANEL ALKALINE PHOSPHATASE [ENZYMATIC ACTIVITY/VO LUME] IN SERUM OR PLASMA 71 U/L 40 - 150 11/20 Specimen Type: PLASMA Comment: No hemolysis noted. Ordering Provider: WISAM GRIER Report Released Date/Time: Oct 04, 2023 05:25 PM Reporting Lab: [facility] [address] [place] [phone] Performing Lab: [place] [id number] [place] [address] COMPREHEN SIVE METABOLIC PANEL ASPARTATE AMINOTRANSF ERASE [ENZYMATIC ACTIVITY/VO LUME] IN SERUM OR PLASMA 16 U/L 5 - 34 11/20 Specimen Type: PLASMA Comment: No hemolysis noted. Ordering Provider: WISAM GRIER Report Released Date/Time: Oct 04, 2023 05:25 PM Reporting Lab: [address] [phone] Performing Lab: [address] [phone] [place] [address] COMPREHEN SIVE METABOLIC PANEL ALANINE AMINOTRANSF ERASE [ENZYMATIC ACTIVITY/VO LUME] IN SERUM OR PLASMA 12 U/L 8 - 40 11/20 Specimen Type: PLASMA Comment: No hemolysis noted. Ordering Provider: WISAM GRIER Report Released Date/Time: Oct 04, 2023 05:25 PM Reporting Lab: [address] [phone] Performing Lab: [address] [phone] [place] [address] COMPREHEN SIVE METABOLIC PANEL GLOMERULAR FILTRATION RATE/1.73 SQ M.PREDICTED [VOLUME RATE/AREA] IN SERUM, PLASMA OR BLOOD BY CREATININE- BASED FORMULA (CKD-EPI 2020) 80.4 60 11/20 Specimen Type: PLASMA Comment: No hemolysis noted. Ordering Provider: WISAM GRIER Report Released Date/Time: Oct 04, 2023 05:25 PM Reporting Lab: [address] [phone] Performing Lab: [facility] [address] [place] [phone] [place] [address] HGA1C HEMOGLOBIN A1C/HEMOGLO BIN.TOTAL IN BLOOD 5.6 4.0 - 6.0 11/20 Specimen Type: BLOOD No comment entered. Ordering Provider: WISAM GRIER Report Released Date/Time: Oct 04, 2023 05:25 PM Reporting Lab: [facility] [address] [place], [place] [phone] Performing Lab: [address] VITAMIN D, 25-HYDROX Y 25-HYDROXYV ITAMIN D3 [MASS/VOLUM E] IN SERUM OR PLASMA 35.3 ng/mL 30 - 96 11/20 Specimen Type: SERUM Comment: The listed sex of this patient may not be a typical indication for this test. Therefore, reference ranges or interpretiv e criteria listed may not be valid. Clinical correlation suggested. Ordering Provider: WISAM GRIER Report Released Date/Time: Oct 04, 2023 05:25 PM Reporting Lab: [facility] [address] [place], [place] [phone] Performing Lab: [place] [phone] CBC LEUKOCYTES [#/VOLUME] IN BLOOD BY AUTOMATED COUNT 7.9 10*3/u L 3.6 - 11.2 11/20 Specimen Type: BLOOD No comment entered. Ordering Provider: WISAM GRIER Report Released Date/Time: Oct 04, 2023 05:25 PM Reporting Lab: [facility] [address] [place], [place] [phone] Performing Lab: [place] [phone] CBC ERYTHROCYTE S [#/VOLUME] IN BLOOD BY AUTOMATED COUNT 3.64 10*6/u L 4.10 - 5.70 11/20 L Specimen Type: BLOOD No comment entered. Ordering Provider: WISAM GRIER Report Released Date/Time: Oct 04, 2023 05:25 PM Reporting Lab: [facility] [address] [place] [address] Performing Lab: [facility] [address] [place] [phone] [address] CBC HEMOGLOBIN [MASS/VOLUM E] IN BLOOD 11.9 g/dL 13.1 - 16.8 11/20 L Specimen Type: BLOOD No comment entered. Ordering Provider: WISAM GRIER Report Released Date/Time: Oct 04, 2023 05:25 PM Reporting Lab: [facility] [address] [place] [address] Performing Lab: [address] CBC HEMATOCRIT [VOLUME FRACTION] OF BLOOD 35.0 38.2 - 48.4 11/20 L Specimen Type: BLOOD No comment entered. Ordering Provider: WISAM GRIER Report Released Date/Time: Oct 04, 2023 05:25 PM Reporting Lab: [facility] [address] [place] [address] Performing Lab: [facility] [address] [place], [place] [phone] [address] CBC MCV [ENTITIC VOLUME] BY AUTOMATED COUNT 96.2 fL 80.0 - 100.0 11/20 Specimen Type: BLOOD No comment entered. Ordering Provider: WISAM GRIER Report Released Date/Time: Oct 04, 2023 05:25 PM Reporting Lab: [facility] [address] [place] [address] Performing Lab: [facility] [address] [place] [address] CBC MCH [ENTITIC MASS] BY AUTOMATED COUNT 32.7 pg 27.0 - 34.0 11/20 Specimen Type: BLOOD No comment entered. Ordering Provider: WISAM GRIER Report Released Date/Time: Oct 04, 2023 05:25 PM Reporting Lab: [facility] [address] [place] [phone] Performing Lab: [facility] [address] [place] [phone] [facility] CBC MCHC [MASS/VOLUM E] BY AUTOMATED COUNT 34.0 g/dL 33.0 - 36.0 11/20 Specimen Type: BLOOD No comment entered. Ordering Provider: WISAM GRIER Report Released Date/Time: Oct 04, 2023 05:25 PM Reporting Lab: [facility] [address] [place] [phone] Performing Lab: [facility] [address] [place] [address] [phone] CBC PLATELETS [#/VOLUME] IN BLOOD BY AUTOMATED COUNT 189 10*3/u L 150 - 400 11/20 Specimen Type: BLOOD No comment entered. Ordering Provider: WISAM GRIER Report Released Date/Time: Oct 04, 2023 05:25 PM Reporting Lab: [facility] [address] [place] [phone] Performing Lab: [facility] [address] [place] [phone] [place] [address] CBC PLATELET MEAN VOLUME [ENTITIC VOLUME] IN BLOOD BY AUTOMATED COUNT 9.6 fL 7.5 - 11.2 11/20 Specimen Type: BLOOD No comment entered. Ordering Provider: WISAM GRIER Report Released Date/Time: Oct 04, 2023 05:25 PM Reporting Lab: [facility] [address] [place] [phone] Performing Lab: [facility] [address] [place] [phone] [place] [address] CBC ERYTHROCYTE DISTRIBUTIO N WIDTH [RATIO] BY AUTOMATED COUNT 14.6 11.8 - 15.1 11/20 Specimen Type: BLOOD No comment entered. Ordering Provider: WISAM GRIER Report Released Date/Time: Oct 04, 2023 05:25 PM Reporting Lab: [facility] [address] [facility] [phone] Performing Lab: [facility] [address] [facility] [phone] [facility] CBC LYMPHOCYTES /100 LEUKOCYTES IN BLOOD BY AUTOMATED COUNT 17 11/20 Specimen Type: BLOOD No comment entered. Ordering Provider: WISAM GRIER Report Released Date/Time: Oct 04, 2023 05:25 PM Reporting Lab: [facility] [address] [facility] [phone] Performing Lab: [facility] [address] [place] [phone] [facility] CBC MONOCYTES/1 00 LEUKOCYTES IN BLOOD BY AUTOMATED COUNT 11 11/20 Specimen Type: BLOOD No comment entered. Ordering Provider: WISAM GRIER Report Released Date/Time: Oct 04, 2023 05:25 PM Reporting Lab: [facility] [address] [facility] [phone] Performing Lab: [facility] [address] [facility] [phone] [facility] CBC NEUTROPHILS /100 LEUKOCYTES IN BLOOD BY AUTOMATED COUNT 69 11/20 Specimen Type: BLOOD No comment entered. Ordering Provider: WISAM GRIER Report Released Date/Time: Oct 04, 2023 05:25 PM Reporting Lab: [facility] [address] [facility] [address] Performing Lab: [facility] [address] [facility] [phone] [facility] CBC EOSINOPHILS /100 LEUKOCYTES IN BLOOD BY AUTOMATED COUNT 2 11/20 Specimen Type: BLOOD No comment entered. Ordering Provider: WISAM GRIER Report Released Date/Time: Oct 04, 2023 05:25 PM Reporting Lab: [facility] [address] [facility] [phone] Performing Lab: [facility] [address] [facility] [phone] [facility] CBC BASOPHILS/1 00 LEUKOCYTES IN BLOOD BY AUTOMATED COUNT 0 11/20 Specimen Type: BLOOD No comment entered. Ordering Provider: WISAM GRIER Report Released Date/Time: Oct 04, 2023 05:25 PM Reporting Lab: [facility] [address] [place] [phone] Performing Lab: [address] [phone] [facility] CBC LYMPHOCYTES [#/VOLUME] IN BLOOD BY AUTOMATED COUNT 1.33 10*3/u L 0.77 - 4.50 11/20 Specimen Type: BLOOD No comment entered. Ordering Provider: WISAM GRIER Report Released Date/Time: Oct 04, 2023 05:25 PM Reporting Lab: [address] [phone] Performing Lab: [address] [phone] [facility] CBC MONOCYTES [#/VOLUME] IN BLOOD BY AUTOMATED COUNT 0.90 10*3/u L 0.19 - 0.80 11/20 H Specimen Type: BLOOD No comment entered. Ordering Provider: WISAM GRIER Report Released Date/Time: Oct 04, 2023 05:25 PM Reporting Lab: [address] [phone] Performing Lab: [address] [phone] [facility] CBC NEUTROPHILS [#/VOLUME] IN BLOOD BY AUTOMATED COUNT 5.47 10*3/u L 2.10 - 8.00 11/20 Specimen Type: BLOOD No comment entered. Ordering Provider: WISAM GRIER Report Released Date/Time: Oct 04, 2023 05:25 PM Reporting Lab: [address] [phone] Performing Lab: [address] [phone] [place] [address] CBC EOSINOPHILS [#/VOLUME] IN BLOOD BY AUTOMATED COUNT 0.12 10*3/u L 0.00 - 0.60 11/20 Specimen Type: BLOOD No comment entered. Ordering Provider: WISAM GRIER Report Released Date/Time: Oct 04, 2023 05:25 PM Reporting Lab: [place] [phone] Performing Lab: [place] [id number] [place] [address] CBC BASOPHILS [#/VOLUME] IN BLOOD BY AUTOMATED COUNT 0.03 10*3/u L 0.00 - 0.20 11/20 Specimen Type: BLOOD No comment entered. Ordering Provider: WISAM GRIER Report Released Date/Time: Oct 04, 2023 05:25 PM Reporting Lab: [place] [id number] Performing Lab: [place] [id number] [place] [address] TSH W/ REFLEX FT4 (STL) THYROTROPIN [UNITS/VOLU ME] IN SERUM OR PLASMA 4.294 u[IU]/ mL 0.47 - 5 11/20 Specimen Type: PLASMA No comment entered. Ordering Provider: WISAM GRIER Report Released Date/Time: Oct 04, 2023 05:25 PM Reporting Lab: [address] [id number] Performing Lab: [address] [id number] [place] [address] FREE T4 (STL) THYROXINE (T4) FREE [MASS/VOLUM E] IN SERUM OR PLASMA 0.90 ng/mL 0.7 - 1.48 11/20 Specimen Type: PLASMA No comment entered. Ordering Provider: WISAM GRIER Report Released Date/Time: Oct 04, 2023 05:25 PM Reporting Lab: [address] [id number] Performing Lab: [facility] [address] [place] [id number] [facility] PROST. SPECIFIC AG.(PB-ST L) PROSTATE SPECIFIC AG [MASS/VOLUM E] IN SERUM OR PLASMA 4.592 ng/mL 0 - 4 11/20 Specimen Type: SERUM Comment: The listed sex of this patient may not be a typical indication for this test. Therefore, reference ranges or interpretiv e criteria listed may not be valid. Clinical correlation suggested. Ordering Provider: WISAM GRIER Report Released Date/Time: Oct 04, 2023 05:25 PM Reporting Lab: [address] [address] Performing Lab: [place] [id number] [place] [address] FREE T4 THYROXINE (T4) FREE [MASS/VOLUM E] IN SERUM OR PLASMA 1.34 ng/mL 0.7 - 1.48 11/28 Specimen Type: SERUM No comment entered. Ordering Provider: WISAM GRIER Report Released Date/Time: Nov 19, 2022 04:37 PM Reporting Lab: [address] [address] Performing Lab: [address] [id number] [place] [address] HGA1C HEMOGLOBIN A1C/HEMOGLO BIN.TOTAL IN BLOOD 5.6 4.0 - 6.0 11/28 Specimen Type: BLOOD No comment entered. Ordering Provider: WISAM GRIER Report Released Date/Time: Nov 19, 2022 04:37 PM Reporting Lab: [address] [address] Performing Lab: [address] [address] [facility] Vital Signs Combined list of inpatient and outpatient Vital Signs from Department of Defense and Veterans Affairs, ranging from 12 months to all on record, depending upon the facility. Vital Sign Value Date Comments Source SYSTOLIC BLOOD PRESSURE 128 11/19/2023 14:57:21 [facility] DIASTOLIC BLOOD PRESSURE 81 11/19/2023 14:57:21 [facility] PULSE OXIMETRY 96 11/19/2023 14:57:21 [facility] WEIGHT 197 11/19/2023 14:57:21 [facility] BMI 26kg/m2 11/19/2023 14:57:21 [facility] PAIN 0 11/19/2023 14:57:21 [facility] TEMPERATURE 98.1 11/19/2023 14:57:21 [facility] PULSE 64 11/19/2023 14:57:21 [facility] RESPIRATION 18 11/19/2023 14:57:21 [facility] Encounters Combined list of: 1) Encounters from Department of [facility] Affairs facilities going back up to thelast 18 months. 2) Encounters from the Department of [facility] facilities going back up to 280 months. Location Location Details Encounter Type Encounter Number Reason For Visit Attending Provider ADM Date DC Date Status Disposition Source [facility] Outpatient Encounter [id number] 10/29 [facility] EMERGENCY DEPT VISIT MOD MDM [id number] Diagnos is: ICD-10- CM E03.9 Hypothy roidism , unspeci fied
GENDI,WAHI ED 10/29 [facility] QNHP OL DIG ASSMT&MGMT 11- [id number] Diagnos is: ICD-10- CM E03.9 Hypothy roidism , unspeci fied
LUPIS HWANG LLBowen E 11/18 [facility] Outpatient Encounter [id number] Diagnos is: ICD-10- CM E03.9 Hypothy roidism , unspeci fied
BASIM GRIERD T 11/19 [facility] Outpatient Encounter [id number] 01/23 [facility] Outpatient Encounter [id number] 02/27 [facility] Outpatient Encounter [id number] 09/30 [facility] Outpatient Encounter [id number] 11/18 [facility] TELEHEALTH FACILITY FEE [id number] Diagnos is: ICD-10- CM I25.10 Athscl heart disease of [place] coronar y artery w/o ang pctrs<b r/> ICE,MARGUERITE E 11/18 [facility] Outpatient Encounter [id number] 11/18 [facility] OFFICE O/P EST LOW 20 MIN [id number] Diagnos is: ICD-10- CM I25.10 Athscl heart disease of [place] coronar y artery w/o ang pctrs<b r/> ICE,MARGUERITE E 11/18 [facility] IMG RTA DETCJ/MNTR DS STAFF [id number] Diagnos is: ICD-10- CM Z13.5 Encount er for screeni ng for eye and ear disorde rs
TAHIR JOSHUA 11/18 [facility] Outpatient Encounter [id number] Diagnos is: ICD-10- CM Z13.5 Encount er for screeni ng for eye and ear disorde rs
RAFATCHEYENNECharly VIDAL R 11/20 [facility] Outpatient Encounter [id number] MARVELBASIM JACKSOND T 11/30 [facility] Social History Combined list of available smoking, tobacco, and other social history from Department of Defense and Veterans Affairs facilities. Social History Type Response Date Comment [facility] Tobacco smoking status NHIS NV-TOBACCO NEVER USED 11/19/2023 [facility] History of tobacco use NV-TOBACCO FORMER USER 08/02/2022 [facility] History of tobacco use QUIT TOBACCO >7 YEARS AGO 06/20/2006 [facility] History of tobacco use CURRENT NON-TOBACCO USER-HX OF USE 08/16/2005 [facility] History of tobacco use CURRENT NON-TOBACCO USER-HX OF USE 04/06/2004 [facility] Plan of Care List of future care activities from Department of [facility] facilities. Additional future care activities may be listed in the Assessment and Plan section. Date/Time Care Activity Care Activity Detail Facili ty 09/28/2024 AMBULATORY - MEDICINE AMBULATORY - MEDICI NE [facility] 02/25/2024 Laboratory - Cooker Operator ry Order OCCULT BLOOD FIT X1 SCREEN STOOL FECES SP [facility]
--- OUTSIDE RECORDS SUMMARY | 2024-04-12 11:23 | XMS_ITS | Encounter Summary ---
Author Name [facility] [facility] [place] Address [address] [place] [address] Care Team Providers Care Supervisor [employer] Name Role Phone ELZA GRIER Primary Care Provider [facility] e Insurance Providers: All historical and current [...] MEDIC ARE SUPPL EMEMT Jun 29, 2020 [id number] [phone] Lionel RODRIGUEZN PATIENT ANTHEM [place] MEDICARE SUPPLEMEN [place] MEDIC ARE SUPPL EMEMT Jun 29, 2020 [id number] [phone] Lionel RODRIGUEZ [place] PATIENT AN[place] MED[place] SUPPLEMEN [place] MEDIC ARE SUPPL EMENT Jun 29, 2020 [id number] [phone] Lionel RODRIGUEZ PATIENT [place] PREFERRED PROVIDER ORGANIZAT ION (PPO) TEAMS TER + EMPLO YERS Jul 10, 2005 [id number] [phone] Lionel RODRIGUEZ [place] PATIENT [place] MED[place] SUPPLEMEN [place] MEDIC ARE SUPPL EMEMT Jun 29, 2020 [id number] [phone] MICHAEL,J [place] PATIENT [place] PREFERRED PROVIDER ORGANIZAT ION (PPO) TEAMS TER + EMPLO [facility] Sep 28, 2002 [id number] [phone] MICHAEL,J [place] PATIENT MEDICARE (WNR) MEDICARE (M) PART A Jan 29, 2013 PART A [id number] MICHAEL,J [place] PATIENT MEDICARE (WNR) MEDICARE (M) PART B Jan 29, 2013 PART B [id number] IMCHAEL,J [place] PATIENT Selected Encounter This section includes the information on record at [place] for the Encounter. Date/Time Encounter Type Encounter Description Reason Pro vider Source Oct 01, 2023 02:35 PM Outpatient Encounter PRIMARY CARE/MEDICINE IHE Encounter Template Text not used by [place] Plan of Treatment: Future Appointments (+ 6 months) and Future Tests (+/- 45 days) The Plan of Treatment section includes future care activities for the patient from all [place] treatmentfacilities. This section includes future appointments and future orders which are active, pending or scheduled. Future Appointments This section includes appointments that were scheduled to occur 6 months from the date of the Encounter, up to a maximum of 20 appointments. The data comes from all [place] treatment facilities. Appointment Date/Time Appointment Type Appointme nt Facility Name Nov 19, 2023 03:00 PM AMBULATORY - NONE [facility] Nov 19, 2023 03:01 PM AMBULATORY - NONE . [facility] Nov 19, 2023 03:30 PM [facility]ORY - NONE [facility] Encounter Notes: All associated encounter notes This section contains the clinical notes associated to the Encounter. Date/Time Encounter Note(s) Provider Source Oct 04, 2023 05:15 PM ADDENDUM: LOCAL TITLE: Addendum STANDARD TITLE: ADDENDUM DATE OF NOTE: OCT 04, 2023@17:15:23 ENTRY DATE: OCT 04, 2023@17:15:23 AUTHOR: ELZA GRIER EXP COSIGNER: URGENCY: STATUS: COMPLETED Please have him do 12 hrs fasting blood test done 2 to 3 days prior to his appointment on November 19, 2023 Blood test ordered on the CPRS /fredy/ Elza Grier MD Staff Physician Signed: 10/04/2023 17:24 Receipt Acknowledged By: 10/15/2023 09:05 /fredy/ VICTOR M ARNDT BSN RN REGISTERED NURSE === --- Original Document --- 10/01/23 SCHEDULING NOTE STL: Additional comments: Vet is set up for PCP appt 11/19/23 @ 15:00, would like to double check mailing status for medications. ADDITIONAL RESULTS FROM SCHEDULING ATTEMPTS: Spoke with /Caregiver /fredy/ KAY ALCALA Advance Bait Maker Signed: 10/01/2023 14:38 Receipt Acknowledged By: 10/04/2023 17:24 /sharri Grier MD Staff Physician ELZA GRIER [facility] Oct 01, 2023 02:35 PM ADMINISTRATIVE NOTE: LOCAL TITLE: SCHEDULING NOTE STL STANDARD TITLE: ADMINISTRATIVE NOTE DATE OF NOTE: OCT 01, 2023@14:35 ENTRY DATE: OCT 01, 2023@14:36:30 AUTHOR: KAY ALCALA EXP COSIGNER: URGENCY: STATUS: COMPLETED SCHEDULING NOTE STL Has ADDENDA Additional comments: Vet is set up for PCP appt 11/19/23 @ 15:00, would like to double check mailing status for medications. ADDITIONAL RESULTS FROM SCHEDULING ATTEMPTS: Spoke with /Caregiver /sharri ALCALA Advance Bait Maker Signed: 10/01/2023 14:38 Receipt Acknowledged By: 10/04/2023 17:24 /fredy/ Elza Grier MD Staff Physician 10/04/2023 ADDENDUM STATUS: COMPLETED Please have him do 12 hrs fasting blood test done 2 to 3 days prior to his appointment on November 19, 2023 Blood test ordered on the CPRS /sharri Grier MD Staff Physician Signed: 10/04/2023 17:24 Receipt Acknowledged By: * AWAITING SIGNATURE * VICTOR M ARNDT MARIE LEOLA G [facility]
--- OUTSIDE RECORDS SUMMARY | 2024-04-12 11:24 | XMS_ITS | Continuity of Care Document ---
Author Organization [facility] Address [address] [place] [phone] Care Team Providers Care Semiconductor Packages Tester Name Role Phone Nikky Reyes Primary Care Physician Encounter [facility] Financial Number [id number] Date(s): 04/18/21 - 04/18/[address] [phone] Discharge Disposition: Home or Self Care Attending Physician: Kan Nicholas MD Referring Physician: Kan Nicholas MD Allergies, Adverse Reactions, Alerts No Known Allergies Assessment and Plan Future Appointments Appointment Date:05/04/2021 02:00:00 PM Scheduled Provider: Location:[facility] Cardiology Appointment Type:Echocardiogram Complete Study Appointment Date:07/18/2021 01:40:00 PM Scheduled Provider:Kan Nicholas MD [facility] Type:[facility] EP Established Patient Medications aspirin 81 mg oral enteric coated tablet 81 mg, 1 tablet(s), Oral, daily, Tab EC, 0 Start Date: 10/23/16 Status: Ordered Bystolic 5 mg oral tablet 5 mg, 1 tablet(s), Oral, qhs, 30 tablet(s), Tablet(s), 5, 5, Route to Pharmacy Electronically, [facility]/pharmacy #[id number], [id number], 185.4, cm, 04/18/2021 1151, Height, 88.7, kg, 04/18/2021 1151, Weight Start Date: 04/18/21 Status: Ordered cholecalciferol 2000 IU, Oral, daily, 0 Start Date: 12/28/20 Status: Ordered Chondroitin-Glucosamine 2 capsule(s), Oral, qhs, 0 Start Date: 11/06/18 Status: Ordered clopidogrel 75 mg oral tablet 75 mg, 1 tablet(s), Oral, daily, 30 tablet(s), Tablet(s), 0 Start Date: 05/23/20 Status: Ordered furosemide 40 mg oral tablet 40 mg, 1 tablet(s), Oral, daily, PRN, Tablet(s), 0, swelling Start Date: 05/23/20 Status: Ordered ivermectin 18 mg, Oral, weekly, 0 Start Date: 12/28/20 Status: Ordered levothyroxine 50 mcg (0.05 mg) oral tablet 50 mcg, 1 tablet(s), Oral, daily before breakfast, 30 tablet(s), Tablet(s), 0 Start Date: 05/23/20 Status: Ordered melatonin 5 mg, Oral, qhs, 0 Start Date: 12/28/20 Status: Ordered Multivitamin oral tablet 1 tablet(s), Oral, daily, 30 tablet(s), Tablet(s), 0 Start Date: 12/28/20 Status: Ordered nitroglycerin 0.4 mg sublingual tablet 0.4 mg, 1 tablet(s), Sublingual, as needed, PRN, 1 bottle, 0, chest pain, not to exceed 3 doses/15 min--if pain persists, seek medical attention Start Date: 05/23/20 Status: Ordered Quercetin Quercetin, 550 mg, Oral, daily Start Date: 12/28/20 Status: Ordered rosuvastatin 20 mg oral tablet 20 mg, 1 tablet(s), Oral, qhs, 30 tablet(s), Tablet(s), 0 Start Date: 05/23/20 Status: Ordered Tylenol 325 mg oral tablet 650 mg, 2 tablet(s), Oral, g5atbno, PRN, Tablet(s), 0, pain, mild Start Date: 05/23/20 Status: Ordered Vitamin C 500 mg oral tablet 500 mg, 1 tablet(s), Oral, daily, 30 tablet(s), Tablet(s), 0 Start Date: 12/28/20 Status: Ordered Zinc 30 mg, Oral, daily, 0 Start Date: 12/28/20 Status: Ordered Problem List Condition Effective Dates Status Health Status Inform ant Hematuria(Confirmed) Active Cardiomyopathy, ischemic(Confirmed) 1 Active Chronic systolic heart failure(Confirmed) Active Congestive heart failure (CHF)(Confirmed) Active Coronary artery disease(Confirmed) Active Hypertension(Confirmed) Active Heart attack(Confirmed) Active 1ejection fraction 25% Diagnosis Diagnosis Type Effective Dates Health Status Clinical Service Informant Hypertension 04/18/21 Non-Specified Coronary artery disease 04/18/21 Non-Specified Chronic systolic heart failure 04/18/21 Non-Specified Hematuria 04/18/21 Non-Specified Procedures Procedure Date Related Diagnosis Body Site Status Cardiac catheterization 1 06/25/07 Completed Cardiac catheterization 05/21/06 C ompleted Cardiac catheterization 2 10/23/04 Completed Cardiac catheterization 3 11/08/03 Completed Cardiac catheterization procedure 4 12/29/97 Completed cardiac stints x14 5 Comp leted cholecystectomy 03/2011 Co mpleted 1PCI diagonal, PCI LAD 2PTCA to OM 3PTCA with 2 stents to LAD 4100% LAD, stented 5last stint 03/09 Results Laboratory List Name Date CBC with Differential 04/18/21 Comprehensive Metabolic Profile (CMP) Differential, Automated 04/18/21 Lipid Panel 04/18/21 NT-proBNP (NT-pro BNP) 04/18/21 Most recent to oldest [Reference Range]: 1 Albumin [3.5-5.0 g/dL] 4.2 g/dL (04/18/21 1:15 PM) Alk Phos [38-126 U/L] 57 U/L (04/18/21 1:15 PM) BUN [9-20 mg/dL] 12 mg/dL (04/18/21 1:15 PM) Calcium [8.4-10.2 mg/dL] 9.3 mg/dL (04/18/21 1:15 PM) Chloride [98-107 mmol/L] 104 mmol/L (04/18/21 1:15 PM) Cholesterol [<=199 mg/dL] 93 mg/dL (04/18/21 1:15 PM) CO2 [22-30 mmol/L] 34 mmol/L *H* (04/18/21 1:15 PM) Glucose [74-106 mg/dL] 95 mg/dL (04/18/21 1:15 PM) Direct HDL [>=41 mg/dL] 20 mg/dL *L* (04/18/21 1:15 PM) Potassium [3.5-4.9 mmol/L] 4.4 mmol/L (04/18/21 1:15 PM) Sodium [137-145 mmol/L] 141 mmol/L (04/18/21 1:15 PM) Protein, Total [6.5-8.6 g/dL] 7.3 g/dL (04/18/21 1:15 PM) Triglyceride [<=149 mg/dL] 193 mg/dL *H* (04/18/21 1:15 PM) Baso # [0.0-0.2 K/uL] 0.0 K/uL (04/18/21 1:15 PM) Eos # [0.0-0.7 K/uL] 0.2 K/uL (04/18/21 1:15 PM) Hematocrit [40.0-48.0 %] 41.0 % (04/18/21 1:15 PM) Lymph % 23 % (04/18/21 1:15 PM) Lymph # [0.7-4.5 K/uL] 1.5 K/uL (04/18/21 1:15 PM) MCHC [31.5-35.5 g/dL] 32.9 g/dL (04/18/21 1:15 PM) MCH [27.2-32.6 pg] 32.5 pg (04/18/21 1:15 PM) MCV [82.0-99.0 fL] 98.8 fL (04/18/21 1:15 PM) [place] # [0.1-1.3 K/uL] 0.8 K/uL (04/18/21 1:15 PM) MPV [9.3-12.4 fL] 9.4 fL (04/18/21 1:15 PM) Neutro # [1.9-7.0 K/uL] 4.1 K/uL (04/18/21 1:15 PM) Platelet [140-350 K/uL] 199 K/uL (04/18/21 1:15 PM) RBC [4.50-5.40 M/uL] 4.15 M/uL *L* (04/18/21 1:15 PM) RDW [11.5-14.5 %] 13.4 % (04/18/21 1:15 PM) WBC [4.3-10.0 K/uL] 6.6 K/uL (04/18/21 1:15 PM) Neutro % 62 % (04/18/21 1:15 PM) [place] % 12 % (04/18/21 1:15 PM) Eos % 2 % (04/18/21 1:15 PM) Baso % 1 % (04/18/21 1:15 PM) Nucleated RBCs [0-0 %] 0 % (04/18/21 1:15 PM) AST [17-59 U/L] 28 U/L (04/18/21 1:15 PM) Bilirubin, Total [0.2-1.3 mg/dL] 0.8 mg/ dL (04/18/21 1:15 PM) LDL (Calc) [<=99 mg/dL] 34 mg/dL (04/18/21 1:15 PM) Creatinine [0.7-1.3 mg/dL] 0.8 mg/dL (04/18/21 1:15 PM) Patient Fasting? No (04/18/21 1:15 PM) Hemoglobin [13.6-16.5 g/dL] 13.5 g/dL *L* (04/18/21 1:15 PM) eGFR(4vMDRD) [>=60 mL/min/1.73m2] >60 mL /min/1.73m2 (04/18/21 1:15 PM) eCrCl(C-Gault) 1.1 mL/min/kg (04/18/21 1:15 PM) Immature Gran % [0.0-0.5 %] 0.5 % (04/18/21 1:15 PM) NT-proBNP 156 pg/mL (04/18/21 1:15 PM) Differential Type Automated (04/18/21 1:15 PM) Anion Gap [7-16 mmol/L] 3 mmol/L *L* (04/18/21 1:15 PM) ALT [<=50 U/L] 22 U/L (04/18/21 1:15 PM) Social History Social History Type Response Alcohol Former alcohol user, 28 years old Substance Abuse Never drug user Smoking Status Former smoker;Never; Tobacco Cessation Counseling Requested N/A; Started at age: 13.0; Stopped at age: 28; entered on: 12/28/20 Sex Goals Follows Action Plan Appropri ately, Worse or Warning Symptoms Start Date:05/24/20 End Date: Status:Met Progression:Not Met Prevent Readmission Through Ongoing Care Managem ent Start Date:05/24/20 End Date: Status:Met Progression:Not Met
--- OUTSIDE RECORDS SUMMARY | 2024-04-12 11:24 | XMS_ITS | Continuity of Care Document ---
Author Organization [facility] Address [address] [place] [phone] Care Team Providers Care Handicapped Teacher Name Role Phone Nikky Reyes Primary Care Physician Kan Nicholas [facility] Encounter [facility] Financial Number [id number] Date(s): 10/18/21 - 10/18/[address] [phone] Discharge Disposition: Home or Self Care Attending Physician: Kan Nicholas MD Admitting Physician: Kan Nicholas MD Referring Physician: Kan Nicholas MD Allergies, Adverse Reactions, Alerts No Known Allergies Assessment and Plan Future Appointments Appointment Date:03/05/2022 02:20:00 PM Scheduled Provider:Kan Nicholas MD Location:[facility] Appointment Type:[facility] Established Patient Medications aspirin 81 mg oral enteric coated tablet 81 mg, 1 tablet(s), Oral, daily, Tab EC, 0 Start Date: 10/23/16 Status: Ordered Bystolic 5 mg oral tablet 5 mg, 1 tablet(s), Oral, qhs, 30 tablet(s), Tablet(s), 5, 5, Route to Pharmacy Electronically, [facility]/pharmacy #[id number], [id number], 185.4, cm, 04/18/2021 1151, Height, 88.7, kg, [...] Status: Ordered rosuvastatin 20 mg oral tablet See Instructions, 90 tablet(s), 3, TAKE 1 TABLET BY MOUTH AT BEDTIME, Route to Pharmacy Electronically, [id number], [id number], Instructions Replace Required Details, 185.4, cm, 04/18/2021 1151, Height, 88.7, kg, ... Start Date: 05/17/21 Status: Ordered Tylenol 325 mg oral tablet 650 mg, 2 tablet(s), Oral, [id number], PRN, Tablet(s), 0, pain, mild Start Date: [...] Active Heart attack(Confirmed) Active 1ejection fraction 25% Procedures Procedure Date Related Diagnosis Body Site Status Cardiac catheterization 1 06/25/07 Completed Cardiac catheterization 05/21/06 C ompleted Cardiac catheterization 2 10/23/04 Completed Cardiac catheterization 3 11/08/03 Completed Cardiac catheterization procedure 4 12/29/97 Completed cardiac stints x14 5 Comp leted cholecystectomy 03/2011 Co mpleted 1PCI diagonal, PCI LAD 2PTCA to OM 3PTCA with 2 stents to LAD 4100% LAD, stented 5last stint 03/09 Social History Social History Type Response Alcohol [...] Start Date:05/24/20 End Date: Status:Met Progression:Not Met Care Team Personnel Name: Nikky Reyes M.D. Address: Address: [address] [place] [phone] [place] Name: Kan Nicholas MD Address: Address: [facility] [place] [address] [place]
--- OUTSIDE RECORDS SUMMARY | 2024-04-12 11:24 | XMS_ITS | Continuity of Care Document ---
Author Organization [facility] Address [address] [place] [id number] Care Team Providers Care Insulation Worker Apprentice Name Role Phone Nikky Reyes Primary Care Physician ( [phone] Kan Nicholas [facility] Encounter [facility] Financial Number [id number] Date(s): 04/18/22 - 04/18/[address] [phone] Discharge Disposition: Home or Self Care Attending Physician: Kan Nicholas MD Referring Physician: Kan Nicholas MD Allergies, Adverse Reactions, Alerts No Known Allergies Assessment and Plan Future Appointments Appointment Date:05/30/2022 02:00:00 PM Scheduled Provider:Kan Nicholas MD Location:[facility] Appointment Type:[facility] Established Patient Medications aspirin 81 mg oral enteric coated tablet 81 mg, 1 tablet(s), Oral, daily, Tab EC, 0 Start Date: 10/23/16 Status: Ordered cholecalciferol 2000 IU, Oral, daily, 0 Start Date: 12/28/20 Status: Ordered Chondroitin-Glucosamine 2 capsule(s), Oral, qhs, 0 Start Date: 11/06/18 Status: Ordered clopidogrel 75 mg oral tablet 75 mg, 1 tablet(s), Oral, daily, 90 tablet(s), Tablet(s), 3, 3, Route to Pharmacy Electronically, [facility]/pharmacy #[id number], [id number], 185.4, cm, 08/29/2021 1528, Height, 88.45, kg, 08/29/2021 1528, Weight Start Date: 03/07/22 Stop Date: 12/3/23 Status: Ordered furosemide 40 mg oral tablet 40 mg, 1 tablet(s), Oral, daily, PRN, 90 tablet(s), Tablet(s), 3, 3, swelling, Route to Pharmacy Electronically, [facility]/pharmacy #[id number], [id number], 185.4, cm, 08/29/2021 1528, Height, 88.45, kg, 08/29/2021 1528, Weight Start Date: 03/07/22 Stop Date: 03/02/23 Status: Ordered levothyroxine 50 mcg (0.05 mg) oral tablet 50 mcg, 1 tablet(s), Oral, daily before breakfast, 30 tablet(s), Tablet(s), 0 Start Date: 05/23/20 Status: Ordered Multivitamin oral tablet 1 tablet(s), Oral, daily, 30 tablet(s), Tablet(s), 0 Start Date: 12/28/20 Status: Ordered Nebivolol 5 mg oral tablet See Instructions, 90 tablet(s), 3, 3, TAKE 1 TABLET BY MOUTH ONCE DAILY AT BEDTIME, Route to Pharmacy Electronically, [id number], Instructions Replace RequiredDetails, 185.4, cm, 08/29/2021 1528, Height, 88.45, k... Start Date: 03/07/22 Status: Ordered nitroglycerin 0.4 mg sublingual tablet 0.4 mg, 1 tablet(s), Sublingual, as needed, PRN, 1 bottle, 0, chest pain, not to exceed 3 doses/15 min--if pain persists, seek medical attention Start Date: 05/23/20 Status: Ordered rosuvastatin 20 mg oral tablet See Instructions, 90 tablet(s), 3, 3, TAKE 1 TABLET BY MOUTH AT BEDTIME, Route to Pharmacy Electronically, [facility]/pharmacy #[id number], [id number], Instructions Replace Required Details, 185.4, cm, 08/29/2021 1528, Height, 88.45, kg, 6/... Start Date: 03/07/22 Status: Ordered Vitamin C 500 mg oral tablet 500 mg, 1 tablet(s), Oral, daily, 30 tablet(s), Tablet(s), 0 Start Date: 12/28/20 Status: Ordered Zinc 30 mg, Oral, daily, 0 Start Date: 12/28/20 Status: Ordered Problem List Condition Confirmation Course Effective Dates Status Health St atus Informant Hematuria Confirmed Active Cardiomyopathy, ischemic 1 Confirmed Active Chronic systolic heart failure Confirmed Active Congestive heart failure (CHF) Confirmed Active Coronary artery disease Confirmed Active Hypertension Confirmed Active Heart attack Confirmed Active 1ejection fraction 25% Diagnosis Diagnosis Type Effective Dates Health Status Cl inical Service Informant CHF (congestive heart failure) 04/18/22 Non-Specified CAD (coronary artery disease) 04/18/22 Non-Specified CHF (congestive heart failure) 04/18/22 Non-Specified CAD (coronary artery disease) 04/18/22 Non-Specified Procedures Procedure Date Related Diagnosis Body [...] stint 03/09 Results Laboratory List Name Date Basic Metabolic Profile (BMP) 04/18/22 NT-proBNP 04/18/22 Most recent to oldest [Reference Range]: 1 BUN [9-20 mg/dL] 13 mg/dL (04/18/22 2:02 PM) Calcium [8.4-10.2 mg/dL] 9.5 mg/dL (04/18/22 2:02 PM) Chloride [98-107 mmol/L] 104 mmol/L (04/18/22 2:02 PM) CO2 [22-30 mmol/L] 29 mmol/L (04/18/22 2:02 PM) Glucose [74-106 mg/dL] 119 mg/dL *H* (04/18/22 2:02 PM) Potassium [3.5-4.9 mmol/L] 4.3 mmol/L (04/18/22 2:02 PM) Sodium [137-145 mmol/L] 141 mmol/L (04/18/22 2:02 PM) Creatinine [0.7-1.3 mg/dL] 0.9 mg/dL (04/18/22 2:02 PM) eGFR(4vMDRD) [>=60 mL/min/1.73m2] >60 mL /min/1.73m2 (04/18/22 2:02 PM) eCrCl(C-Gault) 1.0 mL/min/kg (04/18/22 2:02 PM) NT-proBNP 117 pg/mL (04/18/22 2:02 PM) Anion Gap [7-16 mmol/L] 8 mmol/L (04/18/22 2:02 PM) Social History Social History Type Response Alcohol Former alcohol user, 28 years old Substance Abuse Never drug user Smoking Status Former smoker;Never; Tobacco Cessation Counseling Requested N/A; Started at age: 13.0; Stopped at age: 28; entered on: 04/18/22 Sex Goals Follows Action Plan Appropri ately, Worse or Warning Symptoms Start Date:05/24/20 End Date: Status:Met Progression:Not Met Prevent Readmission Through Ongoing Care Managem ent Start Date:05/24/20 End Date: Status:Met Progression:Not Met Note * Carlota Cain Patient Doctor'S Assistant: PERFORM Event Display: Authorization to Treat Authored Date: [id number] * Carlota Cain Patient Doctor'S Assistant: PERFORM Event Display: Authorization to Treat Authored Date: [id number] * Event Display: Patient Provided Clipboard Authored Date: [id number] Ambulatory Comprehensive Intake Ambulatory Comprehensive IntakeOriginating Source: PATIENTOriginating Author: MITCHELL CurtisboardSubmission Date: December 22, 2020 1:51:50 PM -05:00 MITCHELL RODRIGUZE : 1950 Sex: Male MRN(s): [id number], [id number] Ambulatory Comprehensive Intake Question Response Advance Directive Advance Directive Date Location of Advance Directive Type of Advance Directive Patient has Court Appointed Guardian No Location of Court Appointed Guardian Documentation Legal Guardian Medical Power of Learning Manager Name Patient Requests Counseling Regarding Advance Directives History of Falling in Last 3 Months, Including Since Admission No Impaired Judgment/Lack of Safety Awareness No Agitation No Impaired Gait, Shuffle, Wide Base, Unsteady Walk No Ever Experience Dizziness or Vertigo No Ever Wet or Soil Yourself on Way to Bathroom No Medical Devices None Estimator Project Manager Card Other Estimator Project Manager Details Radiology Testing Barriers/Precautions Coronary artery stent or Vascular stent Menstrual Status N/A Previous LMP Date Last Menstrual Period Description Menarche Onset Menarche Frequency Menarche Length Menstrual Comments PAP result HPV Coping Effective Stressors Emotional Support Available Do You Receive Comfort From Spiritual Practices Congregational Preference Zoroastrian Spiritual Practice Comments Weight Change >10lbs Fever Fatigue Yes Difficulty Sleeping No Blood Transfusion No Blood in semen/sperm (men) No Inability to have an erection No Inability to reach climax No Infertility No Painful intercourse Decreased sexual desire No Sexually Transmitted Diseases No ROS Visual Changes (Not Glasses) No Dizziness No Double vision No Sinus problems Frequent persistent nosebleeds No Ear pain No Trouble hearing Yes Ringing in Ears Hoarseness Persistent sore throat Mouth sores No Swollen glands (Frequent) No Breast pain/lumps Pelvic Pain Vaginal discharge Vaginal dryness Frequent sweats/hot flashes Menstrual problems Menopause Problems Baby weighing 9lbs or more Stop breathing during sleep No Shortness of Breath No Coughing up blood No Wheezing No Cough Yes Sore Throat No Gout No Back Pain (Major) No Neck Pain (Major) No Weakness of arm or leg No Joints Swelling/Stiffness No Deformities of Back/Extremities No Chest pain/tightness No Irregular rapid heart beat No Smothering feeling at night No Ankle swelling Yes Numbness or tingling No Severe frequent headaches No Abnormal coordination No Trouble with speech No Forgetfulness/confusion No Black/Bloody stools No Nausea/Vomiting (Frequent) No Frequent heart burn/acid (GERD) No Abdominal pain No Diarrhea (Frequent) No Constipation No Difficulty swallowing No Vomiting blood No Changes in hair/hair loss No Major skin problems No Wounds that will not heal No Persistent rash No Changes in moles No UTI No Urinary Incontinence No Urinary Hesitancy Yes Urinary Urgency Yes Frequent Urination Yes Nocturia Yes Dysuria Hematuria Urinary Retention Feeling blue/discouraged No High anxiety/stress No Loss of friends No Feeling life has no purpose No Feeling others are talking about you No Feeling fear No Hearing voices No Marital or relationship problems No clipping marker awakenings Yes Chief Complaint Pain Present No actual or suspected pain Numeric Rating Pain Scale Primary Pain Location Primary Pain Comments * Event Display: ROI_Correspondence * Event Display: ROI_Correspondence * Event Display: ROI_Correspondence * Event Display: ROI_Correspondence * HPF, Image_Migration: VERIFY, PERFORM Event Display: ROI_Correspondence Authored Date: * HPF, Image_Migration: VERIFY, PERFORM Event Display: ROI_Correspondence Authored Date: Patient Care team information Care Team Personnel Name: Candida Ventura Outpt Care Mgmt Manager Green Position: OP Entrepreneurship Program Director Manager Green Member Role: Entrepreneurship Program Director Name: Kan Nicholas MD Position: Physician - Cardiology Member Role: Specialist Physician Address: Address: [facility] [address] [place] [address] [place] Name: Nikky Reyes M.D. Position: ZZ FAX ONLY - MD NOT ON STAFF Member Role: Primary Care Physician Address: Address: [address] [place] [address] [place] Name: Rosanne Santana M.D. Position[place] [facility] [place] Physician Member Role: Senior Counsel Commercial Address: Address: [address] [place] [address] [place] Name: Arun Obrien Entrepreneurship Program Director Position: OP Entrepreneurship Program Director Manager Green Member Role: Entrepreneurship Program Director Care Team Related Persons Name: GLADIS RODRIGUEZ Address: [address] [phone]
--- OUTSIDE RECORDS SUMMARY | 2024-04-12 11:24 | XMS_ITS | Continuity of Care Document ---
Author Organization [facility] Address [address] [place] [phone] Care Team Providers Care City Manager Name Role Phone AmyDedealexbreann Primary Care Physician Kan Nicholas [facility] Encounter [facility] Financial Number [id number] Date(s): 07/15/22 - 07/15/22 [facility] [address] [phone] Encounter Diagnosis Chronic systolic heart failure(Discharge Diagnosis) - 07/15/22 Coronary artery disease(Discharge Diagnosis) - 07/15/22 Hypertension(Discharge Diagnosis) - 07/15/22 Hyperlipidemia(Discharge Diagnosis) - 07/15/22 Discharge Disposition: Home or Self Care Attending Physician: Kan Nicholas MD Allergies, Adverse Reactions, Alerts No Known Allergies Assessment and Plan Future Appointments Appointment Date:12/03/2022 02:00:00 PM Scheduled Provider:Kan Nicholas MD Location:[facility] App[facility] Type:[facility] EP Established Patient Medications aspirin 81 mg oral enteric coated tablet 81 mg, 1 tablet(s), Oral, as needed, Tab EC, 0 Start Date: 10/23/16 Status: Ordered cholecalciferol 2000 IU, Oral, daily, 0 Start Date: 12/28/20 Status: Ordered Chondroitin-Glucosamine 2 capsule(s), Oral, qhs, 0 Start Date: 11/06/18 Status: Ordered clopidogrel 75 mg oral tablet 75 mg, 1 tablet(s), Oral, daily, 30 tablet(s), Tablet(s), 0 Start Date: 07/01/22 Status: Ordered Entresto 24 mg-26 mg oral tablet 1 tablet(s), Oral, bid, 60 tablet(s), Tablet(s), 5, 5, Route to Pharmacy Electronically, [facility]/pharmacy #[id number], [id number], 185.42, cm, 07/15/2022 1558, Height, 91.17, kg, 07/15/2022 1558, Weight Start Date: 07/15/22 Status: Ordered Lasix 40 mg oral tablet 40 mg, 1 tablet(s), Oral, daily, Tablet(s), 0 Start Date: 07/01/22 Status: Ordered levothyroxine 50 mcg (0.05 mg) oral tablet 50 mcg, 1 tablet(s), Oral, daily before breakfast, 30 tablet(s), Tablet(s), 0 Start Date: 05/23/20 Status: Ordered Metoprolol Succinate ER 25 mg oral tablet, extended release 25 mg, 1 tablet(s), Oral, daily, 30 tablet(s), Tablet CR, 5, 5, [id number] [id number], 185.42, cm, 07/15/2022 1558, Height, 91.17, kg, 07/15/2022 1558, Weight Start Date: 07/15/22 Status: Ordered Multivitamin oral tablet 1 tablet(s), Oral, daily, 30 tablet(s), Tablet(s), 0 Start Date: 12/28/20 Status: Ordered nitroglycerin 0.4 mg sublingual tablet 0.4 mg, 1 tablet(s), Sublingual, as needed, PRN, 1 bottle, 0, chest pain, not to exceed 3 doses/15 min--if pain persists, seek medical attention Start Date: 05/23/20 Status: Ordered rosuvastatin 20 mg oral capsule 20 mg, 1 capsule(s), Oral, qhs, 30 capsule(s), Capsule(s), 0 Start Date: 07/01/22 Status: Ordered Vitamin C 500 mg oral tablet 500 mg, 1 tablet(s), Oral, daily, 30 tablet(s), Tablet(s), 0 Start Date: 12/28/20 Status: Ordered Zinc 30 mg, Oral, daily, 0 Start Date: 12/28/20 Status: Ordered Problem List Condition Confirmation Course Effective Dates Status H ealth Status Informant Hematuria Confirmed Active Cardiomyopathy, ischemic 1 Confirmed Active Chronic systolic heart failure Confirmed Active Congestive heart failure (CHF) Confirmed Active Coronary artery disease Confirmed Active Hyperlipidemia Confirmed Active Hypertension Confirmed Active Heart attack Confirmed Active 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% 21/06/2022 Respiratory Isolation + RHino/Enterovirus Procedures Procedure Date Related Diagnosis Body Site Status Cardiac catheterization 1 06/25/07 Completed Cardiac catheterization 05/21/06 C ompleted Cardiac catheterization 2 10/23/04 Completed Cardiac catheterization 3 11/08/03 Completed Cardiac catheterization procedure 4 12/29/97 Completed cardiac stints x14 5 Comp leted cholecystectomy 03/2011 Co mpleted 1PCI diagonal, PCI LAD 2PTCA to OM 3PTCA with 2 stents to LAD 4100% LAD, stented 5last stint 03/09 Vital Signs Most recent to oldest [Reference Range]: 1 Peripheral Pulse Rate [60-100 bpm] 60 bp m (07/15/22 3:58 PM) Blood Pressure [89-139/60-90 mm Hg] 111/ 69mm Hg (07/15/22 3:58 PM) Height 185.42 cm (07/15/22 3:58 PM) Weight 91.17 kg (07/15/22 3:58 PM) Social History Social History Type Response Alcohol Former alcohol user, 28 years old Substance Abuse Never drug user Smoking Status Former smoker;Never; Tobacco Cessation Counseling Requested N/A; Started at age: 13.0; Stopped at age: 28; entered on: 04/18/22 Sex Hospital Discharge Instructions Patient Education 07/15/2022 15:57:15 CR Heart Healthy Diet (CUSTOM) Heart Healthy Diet Improving diet and lifestyle is an important part of treating heart disease. If you have abnormal blood lipids and /or have had a stroke or heart disease, watching your diet can help keep you healthy. Your dietitian or doctor may provide more specific guidelines for you to follow. Caloric Intake and Physical Activity Balance caloric intake and physical activity to achieve or maintain a healthy body weight. These suggestions can help: ??? Prepare and eat small portions of food. ??? Read labels to understand how many calories you eat each day. ??? Keep a food diary, most people underestimate how much they consume. ??? Exercise 30-60 minutes per day, if possible. ??? Drink water and skip the soda and high calorie fruit juices. Benefit: The proper balance of caloric intake and physical activity may help keep you from becomingoverweight or help you to lose weight. Being overweight is a risk factor for heart disease. Fruits and Vegetables Consume a diet rich in fruits and vegetables. Follow these tips: ??? Enjoy brightly colored fresh fruits and vegetables for the most nutrients (for example: spinach, carrots, peaches and berries tend to be higher in vitamins and minerals then potatoes and corn.) ??? Choose a variety of fruits and vegetables each day. ??? When fresh fruits foods are not available choose frozen or canned vegetables and fruits in water without added sugars, saturated fats or salt. ??? Don???t buy lots of fruit juice. It doesn???t provide the fiber that whole fruit does and can be high in calories. ??? Some cholesterol lowering medications may interact with grapefruit, grapefruit juice, pomegranate and pomegranate juice. Whole-Grain, High Fiber Foods Choose whole-grain, high fiber foods, such as those containing whole wheat, oats, oatmeal, whole rye, whole- grain corn and buckwheat. Choose breads and other foods that list whole- grains as the first item in the ingredient list. Limit the amount of bakery products you purchase, including doughnuts, pies, cakes and cookies. Look instead for fat-free or low-fat and low-sodium varieties of crackers, snack chips, cookies and cakes. Remember, that most store-baked goods are made with egg yolks, saturated fats or trans fats. Read the nutrition facts label! Buy store-baked goods that are made with polyunsaturated or monounsaturated oils, skim or reduced-fat milk, and egg whites, or make your own. Enjoy whole-grain, high fiber foods, such as: ??? Whole-wheat breads ??? Bran cereals ??? Oatmeal ??? [place] ??? Barley ??? [place] ??? Brown rice ??? Wild rice ??? Buckwheat ??? Triticale ??? Bulgar ??? Millet ??? Quinoa ??? Sorghum Benefit: Whole-grains are loaded with nutrients, more filling and help to decrease your risk of heart disease. Meat, Poultry, Fish & Nuts Buy and consume more fish. You should eat one serving of grilled or baked fish (not fried) at leasttwice a week. Select oily fish when possible, such as: ??? [place] ??? Tuna ??? Mackerel ??? Sardines ??? [place] Choose lemon or belkofski juices and spices to prepare fish. Don???t add cream sauces. Choose cuts of red meat and pork labeled ???loin?? and ???round,?? they usually have the least fat. Buy ???Choice?? or ???Select?? grades of beef rather than ???Prime,?? and be sure to trim off the fat before cooking. When buying or eating poultry, choose the leaner, light meat (breasts) rather than fatty dark meat (legs and thighs). Remove the skin before cooking. Select more meat substitutes such as dried beans, peas, lentils or tofu and use them as entrees or in salads or soups. One cup of cooked beans, peas, lentils or tofu can replace a two-ounce serving of meat, poultry or fish. Nuts and seeds can be a good source of protein and polyunsaturated fats but they tend to be high incalories, so eat them in moderation. Oils, Dressings and Shortenings ??? Use fats and oils in limited amounts. ??? When you must use oils, choose the ones lowest in saturated fats, trans fats and cholesterol???including olive oil, canola oil, corn oil, safflower oil, sesame oil soybean oil and sunflower oil. ??? Avoid palm oil, coconut oil and cocoa butter. ??? Buy a nonstick alston and use nonstick vegetable oil spray when cooking ??? Choose reduced-fat, low-fat, light or fat-free salad dressings to use with salads, for dips or as marinades. Milk, Cheese, Butter and Eggs ??? Select fat-free (Skim) or low-fat (1%) milk ??? Avoid milk that has added flavorings, such as chocolate, strawberry or vanilla. They usually have added sugars and calories. ??? Choose fat-free, low-fat or reduced fat cheeses ??? Use egg whites or egg substitutes instead of eggs. (Substitute two egg whites for each egg yolkin recipes that call for eggs) ??? Don???t buy a lot of butter, cream and ice cream. Save those for special occasions and even then, limit how much you eat. These foods have more saturated fat than whole milk. Salt and Sodium Increased amounts of Salt and Sodium in the diet are related to high blood pressure and can have anadverse affect on congestive heart failure. ??? Table salt is 40% Sodium and 1 teaspoon of salt is 2300mg of Sodium ??? Keep the salt shaker off of the table at home ??? Avoid seasoned salt, garlic salt and table salt (may use garlic powder, onion powder, low sodium lemon pepper seasoning) ??? Use reduced sodium versions of food ??? Limit high sodium condiments (soy sauce, ketchup) ??? Avoid bouillon, canned soups, pickles, olives, canned vegetables (use low sodium varieties) Alcohol If you consume alcohol, do so in moderation. Follow this advice if alcohol intake is allowed with you medications and diagnosis: ??? Choose one drink/day for women and two drinks/day for men or less ??? Do not drink if you cannot limit your alcohol intake or if it interacts with a medicine that you are taking. (Check with your physician or pharmacist). CR: Heart Healthy Diet [id number] Rev: 11/10 Goals Follows Action Plan Appropri ately, Worse or Warning Symptoms Start Date:05/24/20 End Date: Status:Met Progression:Not Met Prevent Readmission Through Ongoing Care Managem ent Start Date:05/24/20 End Date: Status:Met Progression:Not Met Note * Naye Barboza Hydraulic Plumber Helper: PERFORM Event Display: Patient Documentation AMB Authored Date: [id number] * Event Display: Patient Provided Clipboard Authored Date: [id number] Ambulatory Comprehensive Intake Ambulatory Comprehensive IntakeOriginating Source: PATIENTOriginating Author: MITCHELL CurtisboardSubmission Date: December 22, 2020 1:51:50 PM -05:00 MITCHELL RODRIGUEZ : 1950 Sex: Male MRN(s): [id number], [id number] Ambulatory Comprehensive Intake Question Response Advance Directive Advance Directive Date Location of Advance Directive Type of Advance Directive Patient has Court Appointed Guardian No Location of Court Appointed Guardian Documentation Legal Guardian Medical Power of Observatory Director Name Patient Requests Counseling Regarding Advance Directives History of Falling in Last 3 Months, Including Since Admission No Impaired Judgment/Lack of Safety Awareness No Agitation No Impaired Gait, Shuffle, Wide Base, Unsteady Walk No Ever Experience Dizziness or Vertigo No Ever Wet or Soil Yourself on Way to Bathroom No Medical Devices None Virtual Reality Specialist Card Other Virtual Reality Specialist Details Radiology Testing Barriers/Precautions Coronary artery stent or Vascular stent Menstrual Status N/A Previous LMP Date Last Menstrual Period Description Menarche Onset Menarche Frequency Menarche Length Menstrual Comments PAP result HPV Coping Effective Stressors Emotional Support Available Do You Receive Comfort From Spiritual Practices Sabianist Preference Judaism Spiritual Practice Comments Weight Change >10lbs Fever [...] voices No Marital or relationship problems No 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 Position: ZZ FAX ONLY - MD NOT ON STAFF Member Role: Primary Care Physician Address: Address: [address] [place] [address] [address] [place] [address]- Name: Rosanne Santana M.D. Position: CPOE PowerNote Physician Member Role: Methods Time Analyst Address: Address: [address] [place] [address] [place] [address] [place] Name: Arun Obrien Healthcare Market Consultant Position: OP Healthcare Market Consultant Roll Builder Member Role: Healthcare Market Consultant Name: Karen Parra FRAUD EXAMINER Position: AMB WELLNESS DIRECTOR/PA Member Role: Nurse Practitioner Address: Address: [address] [place] [address] [address] [place] [address] [place] Name: Kan Nicholas MD Position: Physician - Cardiology Med Service: Chief Operator Reformer City Manager Role: Attending Physician Address: Address: [facility] [address] Care Team Related Persons Name: GLADIS RODRIGUEZ Address: [address] [phone]
--- OUTSIDE RECORDS SUMMARY | 2024-04-12 11:24 | XMS_ITS | Continuity of Care Document ---
Author Organization [facility] Address [address] [place] [phone] Care Team Providers Care Public Information Relations Manager Name Role Phone AmyDedealexbreann Primary Care Physician Kan Nicholas [facility] Encounter [facility] Financial Number [id number] Date(s): 07/01/22 - 07/02/[address] [id number] Encounter Diagnosis Dyspnea(Discharge Diagnosis) - 07/01/22 Fatigue(Discharge Diagnosis) - 07/01/22 History of coronary artery disease(Discharge Diagnosis) - 07/01/22 Discharge Disposition: Home with Physician Follow-up Attending Physician: Mahogany Roman MD Admitting Physician: Kathy Duran Allergies, Adverse Reactions, Alerts No Known Allergies Assessment and Plan Future Appointments Appointment Date:12/03/2022 02:00:00 PM Scheduled Provider:Kan Nicholas MD Location:[facility] Appointment Type:[facility] Established Patient Functional Status 07/02/22 Activity Assistance Independent 07/01/22 Living Situation Home with family car e Medications aspirin 81 mg oral enteric coated [...] Tablet(s), 0 Start Date: 07/01/22 Status: Ordered Lasix 40 mg oral tablet [...] Status: Ordered Nebivolol 5 mg oral tablet 5 mg, 1 tablet(s), Oral, qhs, 100 tablet(s), Tablet(s), 0 Start Date: 07/01/22 Status: Ordered nitroglycerin 0.4 mg sublingual tablet [...] daily, 0 Start Date: 12/28/20 Status: Ordered Mental Status 07/02/22 Orientation_ND Oriented x4 07/02/22 Orientation Oriented x 4 07/02/22 Hearing Impairment None Vision Impairment None Problem List Condition Confirmation Course Effective Dates Status H ealth Status Informant Hematuria Confirmed Active Cardiomyopathy, ischemic 1 Confirmed Active Chronic systolic heart failure Confirmed Active Congestive heart failure (CHF) Confirmed Active Coronary artery disease Confirmed Active Hyperlipidemia Confirmed Active Hypertension Confirmed Active Heart attack Confirmed Active 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% 21/06/2022 Respiratory Isolation + RHino/Enterovirus Diagnosis Diagnosis Type Effective Dates Health Status Clinical Service Informant Encounter for other specified special examinations 07/01/22 Non-Specified Procedures Procedure Date Related Diagnosis Body [...] List Name Date Basic Metabolic Profile (BMP) 07/02/22 CBC with Differential 07/02/22 Differential, Automated 07/02/22 Procalcitonin 07/01/22 Troponin-I 07/01/22 POC Troponin-I (i-STAT) 07/01/22 C-Reactive Protein (CRP) 07/01/22 CBC with Differential 07/01/22 Comprehensive Metabolic Profile (CMP) 07/01/22 Differential, Automated 07/01/22 Hemoglobin A1c 07/01/22 Magnesium Level 07/01/22 NT-proBNP 07/01/22 PT/INR (Protime/INR) 07/01/22 Sedimentation Rate (ESR) 07/01/22 TSH with Reflex 07/01/22 Most recent to oldest [Reference Range]: 1 2 Albumin [3.5-5.0 g/dL] 4.1 g/dL (07/01/22 5:19 AM) Alk Phos [38-126 U/L] 63 U/L (07/01/22 5:19 AM) BUN [9-20 mg/dL] 18 mg/dL (07/02/22 5:23 AM) 13 mg/dL (07/01/22 5:19 AM) Calcium [8.4-10.2 mg/dL] 8.5 mg/dL (07/02/22 5:23 AM) 8.7 mg/dL (07/01/22 5:19 AM) Chloride [98-107 mmol/L] 104 mmol/L (07/02/22 5:23 AM) 104 mmol/L (07/01/22 5:19 AM) CO2 [22-30 mmol/L] 27 mmol/L (07/02/22 5:23 AM) 29 mmol/L (07/01/22 5:19 AM) Glucose [74-106 mg/dL] 121 mg/dL *H* (07/02/22 5:23 AM) 109 mg/dL *H* (07/01/22 5:19 AM) Magnesium [1.6-2.6 mg/dL] 2.1 mg/dL (07/01/22:19 AM) Potassium [3.5-4.9 mmol/L] 3.8 mmol/L (07/02/2223 AM) 3.9 mmol/L (07/01/22:19 AM) Sodium [137-145 mmol/L] 138 mmol/L (07/02/22 AM) 139 mmol/L (07/01/22: AM) Protein, Total [6.5-8.6 g/dL] 7.5 g/dL (07/01/22: AM) Troponin I <0.01 ng/mL (07/01/22 1:48 PM) TSH, Highly Sensitive [0.47-4.68 uIU/mL] 3.70 uIU/mL (07/01/22: AM) CRP (Non-Cardiac) [0.0-0.9 mg/dL] 0.5 mg /dL (07/01/22:19 AM) Baso # [0.0-0.2 K/uL] 0.0 K/uL (07/02/22:23 AM) 0.0 K/uL (07/01/22:19 AM) Eos # [0.0-0.7 K/uL] 0.1 K/uL (07/02/22:23 AM) 0.1 K/uL (07/01/22:19 AM) Hematocrit [40.0-48.0 %] 38.2 % *L* (07/02/22:23 AM) 40.1 % (07/01/22:19 AM) Lymph % 11 % (07/02/22:23 AM) 16 % (07/01/22:19 AM) Lymph # [0.7-4.5 K/uL] 1.0 K/uL (07/02/22:23 AM) 1.3 K/uL (07/01/22:19 AM) MCHC [31.5-35.5 g/dL] 34.0 g/dL (07/02/22: AM) 33.9 g/dL (07/01/22: AM) MCH [27.2-32.6 pg] 32.3 pg (07/02/22 AM) 32.9 pg *H* (07/01/22 AM) MCV [82.0-99.0 fL] 95.0 fL (07/02/22 AM) 96.9 fL (07/01/22 AM) [place] # [0.1-1.3 K/uL] 1.1 K/uL (07/02/22 AM) 0.9 K/uL (07/01/22: AM) MPV [9.3-12.4 fL] 9.1 fL *L* (07/02/22 AM) 8.9 fL *L* (07/01/22 AM) Neutro # [1.9-7.0 K/uL] 6.7 K/uL (07/02/22 AM) 5.9 K/uL (07/01/22: AM) Platelet [140-350 K/uL] 156 K/uL (07/02/22 AM) 178 K/uL (07/01/22: AM) RBC [4.50-5.40 M/uL] 4.02 M/uL *L* (07/02/22 AM) 4.14 M/uL *L* (07/01/22: AM) RDW [11.5-14.5 %] 13.8 % (07/02/22 AM) 14.1 % (07/01/22 AM) Sed Rate [0-20 mm/hr] 28 mm/hr *H* (07/01/22 AM) WBC [4.3-10.0 K/uL] 9.0 K/uL (07/02/22 AM) 8.3 K/uL (07/01/22: AM) INR [0.9-1.1] 1.1 (07/01/22: AM) Protime (PT) [11.9-14.9 sec] 14.4 sec (07/01/22: AM) Neutro % 74 % (07/02/22:23 AM) 71 % (07/01/22:19 AM) [place] % 12 % (07/02/22: AM) 11 % (07/01/22: AM) Eos % 1 % (07/02/22:23 AM) 2 % (07/01/22: AM) Baso % 1 % (07/02/22 AM) 0 % (07/01/22: AM) Nucleated RBCs [0-0 %] 0 % (07/02/22:23 AM) 0 % (07/01/22: AM) AST [14-54 U/L] 32 U/L (07/01/22: AM) Bilirubin, Total [0.2-1.3 mg/dL] 0.8 mg/ dL (07/01/22: AM) Creatinine [0.7-1.3 mg/dL] 0.8 mg/dL (07/02/22: AM) 0.8 mg/dL (07/01/22: AM) Hemoglobin [13.6-16.5 g/dL] 13.0 g/dL *L* (07/02/22 AM) 13.6 g/dL (07/01/22: AM) eGFR(4vMDRD) [>=60 mL/min/1.73m2] >60 mL /min/1.73m2 (07/02/22:23 AM) >60 mL/min/1.73m2 (07/01/22: AM) eCrCl(C-Gault) 1.2 mL/min/kg (07/02/22:23 AM) 1.2 mL/min/kg (07/01/22:19 AM) Immature Gran % [0.0-0.5 %] 0.8 % *H* (07/02/2223 AM) 0.5 % (07/01/22:19 AM) NT-proBNP 265 pg/mL (07/01/22:19 AM) Hemoglobin A1c [4.0-6.0 %] 5.4 % (07/01/22 5:19 AM) Differential Type Automated (07/02/22 5:23 AM) Automated (07/01/22 5:19 AM) Troponin-I (POC-iSTAT) [<=0.08 ng/mL] 0. 00 ng/mL (07/01/22 5:22 AM) Anion Gap [7-16 mmol/L] 7 mmol/L (07/02/22 5:23 AM) 6 mmol/L *L* (07/01/22 5:19 AM) Procalcitonin <0.08 ng/mL (07/01/22 1:48 PM) ALT [<=50 U/L] 26 U/L (07/01/22 5:19 AM) Radiology Reports * Exam Date Time Procedure Performing Provider Status 07/01/22 6:13 AM CHEST SINGLE VIEW Ankush Mae Rad T ech; Auth (Verified) Notes: (CHEST SINGLE VIEW) Reason For Exam: Chest Pain CHEST SINGLE VIEW EXAM: CHEST SINGLE VIEW HISTORY: Chest Pain FINDINGS: Single view chest. Comparison June 09, 2020 Decreased lung volumes with bibasilar atelectasis. No large pleural effusion or pneumothorax. Cardiac size is enlarged but stable. IMPRESSION: Decreased lung volumes with bibasilar atelectasis. . Dictating Physician: Pk Sher M.D. Releasing Physician: Pk Sher M.D. Signature Electronically Authorized Authorized Date/Time: 01-JUL-2022 12:57 pm Vital Signs Most recent to oldest [Reference Range]: 1 2 3 Temperature Temporal Artery [35.8-38 DegC] 36.3 DegC (07/02/22 4:42 PM) 36.5 DegC (07/02/22 3:18 PM) 36.3 DegC (07/02/22 1:50 PM) Peripheral Pulse Rate [60-100 bpm] 67 bpm (07/02/22 4:42 PM) 63 bpm (07/02/22 3:18 PM) 74 bpm (07/02/22 1:50 PM) Respiratory Rate [14-22 br/min] 18 br/min (07/02/22 4:42 PM) 18 br/min (07/02/22 3:18 PM) 18 br/min (07/02/22 1:50 PM) Blood Pressure [89-139/60-90 mm Hg] 118/84mm Hg (07/02/22 4:42 PM) 110/64mm Hg (07/02/22 3:18 PM) 112/68mm Hg (07/02/22 1:50 PM) Oxygen Therapy Room air (07/02/22 4:42 PM) Room air (07/02/22 3:18 PM) Room air (07/02/22 1:50 PM) Oxygen Flow Rate 0 L/min (07/02/22 4:42 PM) 0 L/min (07/02/22 8:15 AM) Height 185 cm (07/01/22 12:30 PM) 185 cm (07/01/22 9:18 AM) 185 cm (07/01/22 2:13 AM) Weight 90.6 kg (07/01/22 9:18 AM) 91.5 kg (07/01/22 2:13 AM) Social History Social History Type Response Alcohol Former alcohol user, 28 years old Substance Abuse Never drug user Smoking Status Former smoker;Never; Tobacco Cessation Counseling Requested N/A; Started at age: 15.0; Stopped at age: 28; entered on: 04/18/22 Sex Hospital Discharge Instructions Patient Education 07/02/2022 16:42:01 Cardiac Cath Radial HCC(CUSTOM) Cardiac Cath (Radial Access) Patient Instructions The medication used to sedate you will remain in your system for the next 24 hours; during this time you may feel drowsy. During the next 24 hours: ??? Have a responsible adult drive you home and supervise you ??? Do not drive a car or operate machinery ??? Do not consume alcohol or sedating substances (unless prescribed by your physician) ??? Do not make important decisions or sign legal documents INSTRUCTIONS ??? Do NOT take Metformin-base medication until: ??? Restart Coumadin on: ??? Do not engage in sports, sexual intercourse, or heavy lifting (more than 10 lbs) with affected arm for 3 days. ??? No lifting, pulling, or repetitive use with affected arm for 3 days ??? Do not use affected arm to push up from a sitting or lying position. ??? Do not allow blood pressure checks on (or blood sample draws from) affected arm for 24 hours. ??? You may return to work : WOUND CARE: You may take a shower the morning following the procedure. Do not immerse affected arm in water for 48 hours, or until the puncture is sealed. Gently clean the site using soap and water. Do not apply any powder or lotion to the site. Keep bandage clean and dry. Change bandage daily until incision is healed. Replace the bandage if it becomes wet. DIET: Unless your physician instructed you otherwise, you may resume your normal diet when you arrive home. A small knot may develop at the site of the insertion of the catheter. If the knot becomes larger, or is painful, contact your physician. If bleeding occurs, apply pressure (with your fingers) above the site for 10 minutes. If you are unable to stop bleeding, call 911. Continue to apply pressure until EMS arrives. Have EMS transport you to the nearest emergency room. CALL YOUR PHYSICIAN IF YOU EXPERIENCE: ??? excessive bleeding (that does not stop following direct pressure) ??? unusual pain or discoloration of arm or fingers ??? increased swelling of arm ??? Decreased sensation in the arm and/or hand ??? Signs of infection: redness; warm to touch; incision is not healing; prolonged drainage from incision; and fever or chills Return to your marketing underwriter in . Cardiac Cath Radial [facility] [id number] Rev. 01/2020 Goals Follows Action Plan Appropri ately, Worse or Warning Symptoms Start Date:05/24/20 End Date: Status:Met Progression:Not Met Prevent Readmission Through Ongoing Care Managem ent Start Date:05/24/20 End Date: Status:Met Progression:Not Met Nurse Progress note * Bonny Soto RN: PERFORM Event Display: Progress Note-Nurse Authored Date: [id number] VSS, no complaints of pain. IV out and tele monitor off. D/c instructions reviewed with pt and pt verbalized understanding of d/c instructions. Pt belongings with him and pt wheeled down via wheelchair to be picked up by . Hospital Summary note * Bonny Soto RN: PERFORM Event Display: Inpatient Patient Summary Authored Date: [id number] [facility] for your health care. Routine checkups and screenings are an important part of staying healthy. [facility] entire network of care is open, safe and ready to provide you with the very best patient-focused care. MITCHELL RODRIGUEZ :1950 Visit Date:07/01/2022 Inpatient Discharge Instructions [facility] would like to thank you for allowing us to assist you with the healthcare needs. The following information includes patient education materials and information regarding your injury/illness. Our entire staff strives to provide a very good experience for our patients and their families. You may receive, by mail, a survey about your experience with us at [facility].PLEASE ENSURE YOU FOLLOW-UP PER THE INSTRUCTIONS BELOW. Location Information ?Psychiatric hospital?[address] ?? Your Care Team Admitting Physician - Kathy Duran Attending Physician - Mahogany Roman MD Consulting Physician - Marylin Schneider MD, Mark A MD Primary Care Physician - Nikky Reyes M.D. Reason for Your Visit Encounter for other specified special examinations, General medical, Weakness or fatigue Your Diagnosis Encounter for other specified special examinations Dyspnea Fatigue General medical History of coronary artery disease Weakness or fatigue Discharge Orders Discharge Instructions ?Activity level post Discharge?Activity Level post Discharge?Advance to a full activity level as tolerated ?Discharge Patient to?Discharge Disposition?Home w/Physician Follow-up ?Follow-up instructions post Discharge?Follow-up Instuctions post Discharge??Follow up with Primary Care Physician in 1 week ?Follow-up instructions post Discharge?Follow-up Instuctions post Discharge??Follow up with Dr. Nicholas in 1-2 weeks ?Follow-up instructions post Discharge?Provider Search?Cristopher, Kan Iniguez ??MD ?Follow-up instructions post Discharge?Special Instructions?callctor's office for appointment ?Special Discharge Instructions?Special Instructions?Have a responsible democrat stay with you for the first 24 hours following your procedure to assist you as needed ?Special Discharge Instructions?Stop Date/Time?07/02/20221251 ?Diet:?Diet post Discharge?No Added Salt ?Diet:?Diet post Discharge?Heart Healthy ?? Instructions From Your Doctor Nursing Discharge Instructions Inpatient/Observation Instructions: After you leave the hospital, you may call the Nursing Unit within 24 hours of your discharge if you have any questions about these instructions. ??If any medical problems occur or your symptoms get worse, call your doctor immediately. Nursing Unit Patient Home Medications Returned: No home medications Activity After Discharge: No strenuous activity Avoid Heavy Lifting: No more than 5 lbs, No more than 10 lbs, No more than a gallon of milk Diet After Discharge: Low Sodium (No Added Salt or 2 gram sodium), Low Fat/Low Cholesterol or HeartHealthy Respiratory Therapy After Discharge: Not applicable Incision/Wound Care After Discharge: Call if temperature is above 101 degrees F or if change inwound/incision/drainage is noted Discharge Medication Planning: Discharge Medication Information provided, Medication Side Effects Information explained and provided, Ability to obtain prescribed medication confirmed No qualifying data available. Tests Pending Procedures History ???Cardiac catheterization (06/25/2007)???Cardiac catheterization (05/21/2006)???Cardiac catheterization (10/23/2004)???Cardiac catheterization (11/08/2003)???Cardiac catheterization procedure (12/29/1997)???cardiac stints x14???cholecystectomy 03/2011 Discharge Vitals Temperature Temporal Artery: 36.3 DegC (07/02/22 16:42:00) Peripheral Pulse Rate: 67 bpm (07/02/22 16:42:00) Heart Rate Monitored: 67 bpm (07/02/22 16:42:00) Respiratory Rate: 18 br/min (07/02/22 16:42:00) Systolic Blood Pressure: 118 mm Hg (07/02/22 16:42:00) Diastolic Blood Pressure: 84 mm Hg (07/02/22 16:42:00) Oxygen Saturation: 100 % (07/02/22 16:42:00) Oxygen Flow Rate: 0 L/min (07/02/22 16:42:00) What to do next Scheduled Follow-Up Appointments Friday 2:00 PM CDT ?? With: Kan Nicholas MD Where: [facility] [address] [place] [address] [place] [address] [phone] You Need to Schedule the Following Appointments Follow Up with??Follow up with Primary Care Provider When??In 1 week 07/09/2022 CDT Why: Call for follow up appointment Follow Up with??Kan Nicholas When??Within 1 to 2 weeks Why: Call for follow up appointment Where: [facility] [address] [place], [place] [id number]- Business (1) ?? [facility] [address] [facility] [address] [facility] [address] [place] [phone] Business (1) The Following Equipment/Services/Treatments Have Been Arranged For You Discharge Referrals?? No qualifying data available. Medications [facility] provided you with a completed list of medications post discharge, share the list of your current medications with your primary care physician; update the information when medications are discontinued, doses are changed, or new medications (including over the counter products) are added; and carry medication information at all times in the event of emergency situations. What How Much When Instructions Side Effects Next Dose Unchanged ascorbic acid (Vitamin C 500 mg oral tablet) 1 tablet(s) By mouth Daily Unchanged aspirin (aspirin 81 mg oral enteric coated tablet) 1 tablet(s) By mouth Daily Unchanged cholecalciferol 2000 IU By mouth Daily Unchanged chondroitin-glucosamine (Chondroitin-Glucosamine) 2 capsule(s) By mouth Every evening at bedtime Unchanged clopidogrel (clopidogrel 75 mg oral tablet) 1 tablet(s) By mouth Daily Unchanged furosemide (Lasix 40 mg oral tablet) 1 tablet(s) By mouth Daily Unchanged levothyroxine (levothyroxine 50 mcg (0.05 mg) oral tablet) 1 tablet(s) By mouth Daily before breakfast Unchanged multivitamin (Multivitamin oral tablet) 1 tablet(s) By mouth Daily Unchanged nebivolol (Nebivolol 5 mg oral tablet) 1 tablet(s) By mouth Every evening at bedtime Unchanged nitroglycerin (nitroglycerin 0.4 mg sublingual tablet) 1 tablet(s) Sublingual As needed as needed for chest pain not to exceed 3 doses/ 15 min--if pain persists, seek medical attention ?? Unchanged rosuvastatin (rosuvastatin 20 mg oral capsule) 1 capsule(s) By mouth Every evening at bedtime Unchanged zinc sulfate (Zinc) 30 Milligram By mouth Daily Immunizations This Visit Allergies NKA Problems Ongoing Cardiomyopathy, ischemic Chest Pain/Angina Chronic systolic heart failure Congestive heart failure (CHF) Coronary artery disease Coronary Artery Disease Dizziness Heart attack Hematuria Hyperlipidemia Hypertension RHINO/ENTEROVIRUS Shortness of Breath PatientStated Hypothyroidism Historical heart attack High Cholesterol Hypertension Pneumonia Stent Insertion Medication Information ?? Education Materials Cardiac Cath (Radial Access) Patient Instructions ? The medication used to sedate you will remain in your system for the next 24 hours; during this time you may feel drowsy. ? During the next 24 hours: ? Have a responsible adult drive you home and supervise you ? Do not drive a car or operate machinery ? Do not consume alcohol or sedating substances (unless prescribed by your physician) ? Do not make important decisions or sign legal documents ? INSTRUCTIONS ? Do NOT take Metformin-base medication until: ? Restart Coumadin on: ? Do not engage in sports, sexual intercourse, or heavy lifting (more than 10 lbs) with affected arm for 3 days. ? No lifting, pulling, or repetitive use with affected arm for 3 days ? Do not use affected arm to push up from a sitting or lying position. ? Do not allow blood pressure checks on (or blood sample draws from) affected arm for 24 hours. ? You may return to work : ? WOUND CARE: You may take a shower the morning following the procedure. Do not immerse affected arm in water for 48 hours, or until the puncture is sealed. Gently clean the site using soap and water. Do not apply any powder or lotion to the site. Keep bandage clean and dry. Change bandage daily until incision is healed. Replace the bandage if it becomes wet. ? DIET: Unless your physician instructed you otherwise, you may resume your normal diet when you arrive home. ? A small knot may develop at the site of the insertion of the catheter. If the knot becomes larger, or is painful, contact your physician. If bleeding occurs, apply pressure (with your fingers) above the site for 10 minutes. If you are unable to stop bleeding, call 911. Continue to apply pressure until EMS arrives. Have EMS transport you to the nearest emergency room. ? CALL YOUR PHYSICIAN IF YOU EXPERIENCE: ? excessive bleeding (that does not stop following direct pressure) ? unusual pain or discoloration of arm or fingers ? increased swelling of arm ? Decreased sensation in the arm and/or hand ? Signs of infection: redness; warm to touch; incision is not healing; prolonged drainage from incision; and fever or chills ? Return to your marketing underwriter in . ? Cardiac Cath Radial [facility] [id number] Rev. 01/2020 Patient Portal Information monica is a secure online tool where you can access your personal health records, test results, visit summaries or request follow up appointments. The portal can be accessed on the hospital website [email or web address]lo[facility] hospital[facility] where you can self-enroll if you did not do so on registration. If you need assistance logging in, please call . For questions regarding medications or other healthconcerns after discharge, please contact your physician???s office. Location:[facility] Registration Date and Time:07/01/2022 02:11 CDT Primary Care Physician: Nikky Reyes M.D., Attending Physician: Mahogany Roman MD, Designated Caregiver: I have received the above patient education materials/instructions and have verbalized understanding. Patient/System Specialist Signature: Date/Time: Designated Caregiver Signature: Date/Time: Unable to contact Designated Caregiver upon discharge. Provider Signature: Date/Time: Final Medication List We have provided this final list of active medications as a courtesy so that you can easily update your home records and provide to your physician(s). These are the only medications that you should be taking. Please review carefully and contact your doctor prior to taking any medications NOT on this list. Unchanged ascorbic acid (Vitamin C 500 mg oral tablet)1 tablet(s) By mouth daily. aspirin (aspirin 81 mg oral enteric coated tablet)1 tablet(s) By mouth daily. [id number] IU By mouth daily. chondroitin-glucosamine (Chondroitin-Glucosamine)2 capsule(s) By mouth every evening at bedtime. clopidogrel (clopidogrel 75 mg oral tablet)1 tablet(s) By mouth daily. furosemide (Lasix 40 mg oral tablet)1 tablet(s) By mouth daily. levothyroxine (levothyroxine 50 mcg (0.05 mg) oral tablet)1 tablet(s) By mouth daily before breakfast. multivitamin (Multivitamin oral tablet)1 tablet(s) By mouth daily. nebivolol (Nebivolol 5 mg oral tablet)1 tablet(s) By mouth every evening at bedtime. nitroglycerin (nitroglycerin 0.4 mg sublingual tablet)1 tablet(s) Sublingual as needed as needed chest pain. not to exceed 3 doses/15 min--if pain persists, seek medical attention. rosuvastatin (rosuvastatin 20 mg oral capsule)1 capsule(s) By mouth every evening at bedtime. zinc sulfate (Zinc)30 Milligram By mouth daily. Note * Bonny Soto RN: PERFORM Event Display: Vital Signs at Discharge - Text Authored Date: [id number] Vital Signs at Discharge Entered On: 07/02/2022 16:43 CDT Performed On: 07/02/2022 16:42 CDT by Bonny Soto RN Vital Signs Temperature Temporal Artery : 36.3 DegC(Converted to: 97.3 DegF) Peripheral Pulse Rate : 67 bpm Heart Rate Monitored : 67 bpm Respiratory Rate : 18 br/min Systolic Blood Pressure : 118 mm Hg Diastolic Blood Pressure : 84 mm Hg Oxygen Therapy : Room air Oxygen Saturation : 100 % Oxygen Flow Rate : 0 L/min Present Pain Score : 0 Bonny Soto RN - 07/02/2022 16:42 CDT * Bonny Soto RN: PERFORM Event Display: Nursing Discharge Instructions - Text Authored Date: [id number] Nursing Discharge Instructions Entered On: 07/02/2022 16:41 CDT Performed On: 07/02/2022 16:39 CDT by Bonny Soto RN Patient Discharge Location Discharge Location IP : Home Discharge Location IP Home : Yes Bonny Soto RN - 07/02/2022 16:39 CDT Home Discharge Instructions Inpatient/Observation Instructions : After you leave the hospital, you may call the Nursing Unit within 24 hours of your discharge if you have any questions about these instructions. If any medical problems occur or your symptoms get worse, call your doctor immediately. Inpatient/Observation Instructions Freetext : After you leave the hospital, you may call the Nursing Unit within 24 hours of your discharge if you have any questions about these instructions. In any medical problems occur or your systems get worse, or you have questions, call your doctor immediately Patient Home Medications Returned : No home medications Nursing Unit Wound Measured at Discharge : N/A Activity After Discharge : No strenuous activity Avoid Heavy Lifting : No more than 5 lbs, No more than 10 lbs, No more than a gallon of milk Diet After Discharge : Low Sodium (No Added Salt or 2 gram sodium), Low Fat/Low Cholesterol or Heart Healthy Respiratory Therapy After Discharge : Not applicable Incision/Wound Care After Discharge : Call if temperature is above 101 degrees F or if change in wound/incision/drainage is noted Discharge Medication Planning : Discharge Medication Information provided, Medication Side Effects Information explained and provided, Ability to obtain prescribed medication confirmed Bonny Soto RN - 07/02/2022 16:39 CDT * Event Display: Cardiac Cath Order * Event Display: Cardiac Cath Order Authored Date: [id number] [facility] CARDIOLOGY SERVICES [address] [place] [address] Cardiac Catheterization Report Patient Name: MITCHELL RODRIGUEZ J : 1950 (72y 5m) Study Date: 07/02/2022 9:39:26 AM Gender: M Tech: Location: [address] [place] [address] Ref.Provider: AZIZA BLANCAS Height(Cm): 185 BSA: 2.16 Weight(Kg): 90.6 Order Provider: AZIZA BLANCAS INDICATIONS: Ischemic Cardiomyopathy I25.5. CLINICAL PRESENTATION: Mr. Rodriguez is a 72-year-old man with a prior history of coronary artery disease status post multiple stents in the past, history of ischemic cardiomyopathy with ejection fraction of approximately 40% and hypertension who presented to the emergency room with fatigue and shortness of breath. Due to this, he was referred for repeat left heart catheterization for further assessment. PROCEDURES: Left Heart Cardiac Cath: Left Heart Catheterization with Coronary Angiography. Access Site: Access Site: right femoral artery. Ancillary Services: Moderate Sedation Supervision Services [id number]. FINDINGS: Dominance: Right dominant coronary artery circulation. Left Main Coronary Artery: The left main coronary artery has an eccentric, 40% distal narrowing which is unchanged from his prior coronary angiogram. Left Anterior Descending Artery: The left anterior descending coronary artery is a large vessel that has multiple stents from the proximal to distal vessel. There is evidence of mild in-stent restenosis within the midportion of the stents. There is mild diffuse disease in the distal vessel. There is a somewhat small, first diagonal vessel that bifurcates. There is evidence of moderate in-stent restenosis within this vessel. This is also unchanged from his prior coronary angiogram. Circumflex Artery: The left circumflex coronary artery is a large vessel that has evidence of a mild, 20-30% ostial narrowing. There is a widely patent stent in the midportion that extends into the first obtuse marginal vessel that bifurcates. There is mild luminal irregularities in the distal obtuse marginal vessel. Right Coronary Artery: There are multiple stents in the right coronary artery. There is a widely patent stent in the proximal portion with evidence of a 40% narrowing in the midportion. There is no additional stent in the midportion of the vessel has mild in-stent restenosis. There are mild luminal irregularities in the distal coronary artery extending into the PLV branch. Left Ventricle: LV Systolic: 110.0 mmHg. LV Diastolic: 6.0 mmHg. LV EDP: 11.0 mmHg. - CONCLUSIONS: 1. Eccentric, 40% distal narrowing of the left main coronary artery which is unchanged from his prior coronary angiogram. 2. Evidence of mild in-stent restenosis of the multiple stents in the LAD. 3. Widely patent stent in the left circumflex coronary artery extending into the first obtuse marginal vessel. 4. 40% stenosis in the midportion of the right coronary artery with widely patent stents. 5. Normal LVEDP. RECOMMENDATIONS: 1. Compared to his prior coronary angiogram performed 2 years ago, his coronary artery disease is essentially unchanged. Due to this, I would like to continue aggressive medical therapy for the treatment and prevention of coronary artery disease. I would like to bring him back as an outpatient in 2 weeks to further adjust his guideline directed medical therapy for congestive heart failure. PROCEDURE STATUS: Urgent. PROCEDURE DETAILS: The patient was informed of the risks, benefits, and complications of the procedure, including but not limited to cardiovascular , cerebrovascular accident, myocardial infarction, contrast induced nephropathy, arterial bleeding, and cardiac arrhythmias. The patient understood and agreed to the procedure. The patient was brought to the Cardiac Catheterization Laboratory in a fasting state. The right groin area was prepped and draped in sterile fashion. Prep The right and left groin areas were prepped and draped in the usual sterile fashion. Local anesthesia was achieved with 1% lidocaine. The right femoral artery was entered by the percutaneous technique and a 6 Faroese sheath was introduced. A 6 Fr JL 4 was advanced over a wire. The guide wire was removed and the catheter was used to selectively inject the left coronary in multiple views. After satisfactory views were obtained the catheter was removed. A 6 Fr JR 4 was advanced over a wire. The guide wire was removed and the catheter was used to selectively inject the right coronary in multiple views. After satisfactory views were obtained the catheter was removed. A 6 Fr JR 4 was inserted over a wire and pressure measurements were acquired. Left ventriculogram was not completed. The sheath was removed and hemostasis was subsequently obtained with a 6 Faroese Angio-Seal device. Patient was transferred to the recovery room in good condition. MODERATE SEDATION ATTESTATION: I supervised the moderate sedation throughout the entire procedure. The patient was independently monitored by an RN, using an automated blood pressure cuff, ECG, pulse oximetry, and capnography please see detailed nursing notes for documentation of vital signs during the procedure. Medications administered are detailed below in the medication section. The total procedure time is also detailed below in the total procedure time section. Sedation start time: 9:49. Sedation end time: 10:17. MEDICATIONS: Medication(1): Oxygen: NC 2 L/min. Medication(2): {Narcotics/Sedation} Fentanyl 25 mcg IV. Medication(3): {Narcotics/Sedation} Versed 2 mg IV. Medication(4): . Medication(5): . Medication(6): . Medication(7): . Medication(8): . Medication(9): . Medication(10): At corresponding time listed below V.O. from Dr. Wright with verification by. Medication(11): Thiokol Operator: Date/Time: . Medication(12): Physician: Date/Time: . FLUORO TIME: Fluoro Time: 1.8 min. CONTRAST USED: Contrast total: 40 cc. SYSTEMIC HEMODYNAMICS: AO Systolic: 111 mmHg. AO Diastolic: 63 mmHg. AO Mean: 85 mmHg. COMPLICATIONS: none. BLOOD LOSS: Blood Loss: 10 mL. Electronically Signed By: Kan Nicholas MD 2022-07-02 17:36:57 CDT CC: CC: * Tess Miller RN, Interlocking And Signal Mechanic: PERFORM Event Display: Isolation Precautions - Text Authored Date: [id number] Isolation Precautions Entered On: 07/02/2022 09:13 CDT Performed On: 07/02/2022 09:12 CDT by Tess Miller RN, Interlocking And Signal Mechanic Isolation Precautions Isolation Precautions Order Detail : Contact, Droplet Is Isolation Related to COVID-19? : No Tess Miller RN, Interlocking And Signal Mechanic - 07/02/2022 09:12 CDT Problem List (As Of: 07/02/2022 09:14 CDT) Problems(Active) Cardiomyopathy, ischemic (ICD-9-CM :414.8 ) Name of Problem: Cardiomyopathy, ischemic ; Recorder: Kwaku Magaña RN; Confirmation: Confirmed ; Classification: Medical ; Code: 414.8 ; Contributor System: PowerChart ; Last Updated: 09/30/2011 05:35 CDT ; Life Cycle Date: 09/30/2011 ; Life Cycle Status: Active ; Vocabulary: ICD-9-CM ; Comments: 09/30/2011 05:35 - Kwaku Magaña RN ejection fraction 25% Chronic systolic heart failure (SNOMED CT :2122084992 ) Name of Problem: Chronic systolic heart failure ; Recorder: Kan Nicholas MD; Confirmation: Confirmed ; Classification: Medical ; Code: 1599040411 ; Contributor System: PowerChart ; Last Updated: 12/28/2020 14:18 CDT ; Life Cycle Date: 12/28/2020 ; Life Cycle Status: Active ; Responsible Provider: Kan Nicholas MD; Vocabulary: SNOMED CT Congestive heart failure (CHF) (SNOMED CT :973339932 ) Name of Problem: Congestive heart failure (CHF) ; Recorder: Cherry Lima RN; Confirmation: Confirmed ; Classification: Medical ; Code: 601688350 ; Contributor System: PowerChart ; Last Updated: 10/23/2016 08:14 CDT ; Life Cycle Date: 09/30/2011 ; Life Cycle Status: Active ; Vocabulary: SNOMED CT Coronary artery disease (SNOMED CT :22411496 ) Name of Problem: Coronary artery disease ; Recorder: Kan Nicholas MD; Confirmation: Confirmed ; Classification: Medical ; Code: 10612690 ; Contributor System: PowerChart ; Last Updated: 114:18 CDT ; Life Cycle Date: 12/28/2020 ; Life Cycle Status: Active ; Responsible Provider: Kan Nicholas MD; Vocabulary: SNOMED CT Heart attack (SNOMED CT :42662414 ) Name of Problem: Heart attack ; Recorder: Kwaku Magaña RN; Confirmation: Confirmed ; Classification: Medical ; Code: 26840636 ; Contributor System: PowerChart ; Last Updated: 11/06/2018 01:42 CDT ;Life Cycle Date: 11/06/2018 ; Life Cycle Status: Active ; Vocabulary: SNOMED CT Hematuria (SNOMED CT :830174646 ) Name of Problem: Hematuria ; Recorder: Kan Nicholas MD; Confirmation: Confirmed ; Classification: Medical ; Code: 576111436 ; Contributor System: PowerChart ; Last Updated: 04/18/2021 12:12 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 ; Life Cycle Date: 04/18/2021 ; Life Cycle Status: Active ; Responsible Provider: Kan Nicholas MD; Voc abulary: SNOMED CT Hyperlipidemia (SNOMED CT :51193200 ) Name of Problem: Hyperlipidemia ; Recorder: Kan Nicholas MD; Confirmation: Confirmed ; Classification: Medical ; Code: 88471327 ; Contributor System: PowerChart ; Last Updated: 06/09/2022 15:44 CDT; Life Cycle Date: 06/09/2022 ; Life Cycle Status: Active ; Responsible Provider: Kan Nicholas MD; Vocabulary: SNOMED CT Hypertension (SNOMED CT :4099347132 ) Name of Problem: Hypertension ; Recorder: Kan Nicholas MD; Confirmation: Confirmed ; Classification: Medical ; Code: 0943046364 ; Contributor System: PowerChart ; Last Updated: 12/28/2020 14:18 CDT; Life Cycle Date: 12/28/2020 ; Life Cycle Status: Active ; Responsible Provider: Kan Nicholas MD; Vocabulary: SNOMED CT Hypothyroidism (SNOMED CT :01815144 ) Name of Problem: Hypothyroidism ; Recorder: Fern Sullivan RN; Confirmation: Confirmed ; Classification: Patient Stated ; Code: 65945414 ; Contributor System: PowerChart ; Last Updated: 12/22/2019 09:16 CDT ; Life Cycle Date: 12/22/2019 ; Life Cycle Status: Active ; Vocabulary: SNOMED CT RHINO/ENTEROVIRUS (SNOMED CT :058014090 ) Name of Problem: RHINO/ENTEROVIRUS ; Recorder: Tess Miller RN, Interlocking And Signal Mechanic;Confirmation: Confirmed ; Classification: Medical ; Code: 207449522 ; Contributor System: PowerChart ; Last Updated: 07/02/2022 09:13 CDT ; Life Cycle Date: 07/02/2022 ; Life Cycle Status: Active ; Vocabulary: SNOMED CT ; Comments: 07/02/2022 09:Tess Moody RN, Interlocking And Signal Mechanic 07/01/2022 Respiratory Isolation + RHino/Enterovirus Diagnoses(Active) Dyspnea Date: 07/01/2022 ; Diagnosis Type: Discharge ; Confirmation: Confirmed ; Clinical Dx: Dyspnea ; Classification: Medical ; Clinical Service: Non-Specified ; Code: ICD-10-CM ; Probability: 0 ; Diagnosis Code: R06.00 Encounter for other specified special examinations Date: 07/01/2022 ; Confirmation: Confirmed ; Clinical Dx: Encounter for other specified special examinations ; Classification: Medical ; Clinical Service: Non-Specified ; Code: ICD-10-CM ; Probability:0 ; Diagnosis Code: Z01.89 Fatigue Date: 07/01/2022 ; Diagnosis Type: Discharge ; Confirmation: Confirmed ; Clinical Dx: Fatigue ; Classification: Medical ; Clinical Service: Non-Specified ; Code: ICD-10-CM ; Probability: 0 ; Diagnosis Code: R53.83 General medical Date: 07/01/2022 ; Diagnosis Type: Reason For Visit ; Confirmation: Confirmed ; Clinical Dx: General medical ; Classification: Medical ; Clinical Service: Emergency medicine ; Code: PNED ; Probability:0 ; Diagnosis Code: [id number] History of coronary artery disease Date: 07/01/2022 ; Diagnosis Type: Discharge ; Confirmation: Confirmed ; Clinical Dx: History of coronary artery disease ; Classification: Medical ; Clinical Service: Non-Specified ; Code: ICD-10-CM ; Probability: 0 ; Diagnosis Code: Z86.79 Weakness or fatigue Date: 07/01/2022 ; Diagnosis Type: Reason For Visit ; Confirmation: Confirmed ; Clinical Dx: Weaknessor fatigue ; Classification: Medical ; Clinical Service: Emergency medicine ; Code: PNED ; Probability: 0 ; Diagnosis Code: [id number] * Kan Nicholas MD: PERFORM, SIGN, VERIFY Event Display: Pre-Procedure H&P Update Authored Date: [id number] Patient: MITCHELL RODRIGUEZ Age: 72 years Sex: Male : 1950 Associated Diagnoses: None Author: Kan Nicholas MD H&P done within 1-30 days of admission The History and Physical was reviewed and the patient was examined No change has occured in the patient's condition since the History and Physical was completed Indication(s)for Procedure: New Onset Angina Chest Pain Symptom Assessment: 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 Heart Failure Acuity Previously Diagnosed [place] Heart Classification CLASS I Stress or Imaging Studies Not Performed Result of Stress Test Not Performed Risk Factors and Co Morbidities Hypertension Dyslipidemia Prior Percutaneous Coronary Intervention ASA Classification ASA class 2 Physical Exam Heart Regular Rate & Rhythm Lungs Clear Airway Patent, No problems anticipated Plan for Sedation/Analgesia Medications Fentanyl IV Versed IV [Electronically Signed on 07/02/2022 10:10 AM CDT] Kna Nicholas MD * Jessica Francisco Photographic Platemaker: PERFORM Event Display: CM Medicare Notices - Text Authored Date: [id number] CM Medicare Notices Entered On: 07/01/2022 16:36 CDT Performed On: 07/01/2022 16:36 CDT by Jessica Francisco Photographic Platemaker YUE RAO TURNER Reviewer : Jessica Francisco Photographic Platemaker JALEN TURNER Delivered : Yes CM TURNER Date/Time : 07/01/2022 15:40 CDT CM TURNER Delivered To : Patient CM YUE Comments : I delivered the TURNER letter to pt's room. Patient understands Observation statusand signed the notification. Copy of the notice given to pt and original filed in pt's chart. Jessica Francisco Photographic Platemaker - 07/01/2022 16:36 CDT * Raven Lynn RN: PERFORM Event Display: Transition Planning Ongoing - Text Authored Date: [id number] Transition Planning Ongoing Assessment Entered On: 07/01/2022 15:36 CDT Performed On: 07/01/2022 15:30 CDT by Raven Lynn RN Discharge Planning Daily Note Discharge Arrangements : Patient Post-Acute Information Patient Name: MITCHELL RODRIGUEZ Gender: Male : [birth year] Age: 72 Years No Post-Acute Placement(s) Listed No Post-Acute Service(s) Listed Anticipated Discharge Needs RTF : DISCHARGE PLAN/NEEDS:No discharge data available. EQUIPMENT/TREATMENT NEEDS:No discharge data available. Raven Lynn RN - 07/01/2022 15:30 CDT CM Ongoing Narrative Note Ongoing Discharge Planning Note : 07/01/22 1530 Raven Lynn RN CM Observation 07/01/22 DX: Fatigue, Dyspnea, Hx: Cardiomyopathy, ischemic, Chronic systolic heart failure, Congestive heart failure (CHF), Coronary artery disease with stenting,Heart attack, Hematuria, Hyperlipidemia, Hypertension and Hypothyroidism Contact: Jazlyn (spouse) [phone] ODILON CM at bedside to introduce self and role. Pt has spouse on facetime. Pt reports he lives in a one-story home with his spouse. States he is independent in his ADLS and manages his own medications. 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 Pt reports he also has plenty of neighbors and friends that can help. Jazlyn reports she is frustrated that pt drove himself to the hospital in the middle of the night without waking her up first. Pt blushed and reports Jazlyn will drive him home when he is discharged. States in the future he will not leave in the middle of the night without telling his spouse first. Hospital Plan: -Pt positive for rhinovirus today -Bibasilar infiltrates on today's chest xray -Sed rate 28 today -Dr Nicholas consulted -Echo today Discharge Plan: -Jazlyn to drive pt home -Independent, no needs -RN CM to support if needs arise Raven Lynn RN - 07/01/2022 15:45 CDT * Cheryl Ambriz RN: PERFORM Event Display: Mandatory Admission Screens - Text Authored Date: [id number] Mandatory Admission Screens Entered On: 07/01/2022 12:31 CDT Performed On: 07/01/2022 12:30 CDT by Cheryl Ambriz RN Measurements/Notification/Integumary Screen Height : 185 cm(Converted to: 6 ft 1 inch(es), 72.83 inch(es)) Physician to be Notified of Admission : No Person to be Notified of Admission : No Cheryl Ambriz RN - 07/01/2022 12:30 CDT Belongings Patient has Belongings : Yes Cheryl Ambriz RN - 07/01/2022 12:30 CDT Nutrition Screen Home Diet : Regular Have you lost weight recently without trying? : No Eating poorly due to decreased appetite? : No MST Score : 0 Nausea/Vomiting/Diarrhea Prior to admission : No Cheryl Ambriz RN - 07/01/2022 12:30 CDT Diabetes Screen Insulin Pump Present : No Ever diagnosed with Diabetes, any type? : No Ever been told you have Pre Diabetes? : No Do you check Blood Glucose at home? : No Cheryl Ambriz RN - 07/01/2022 12:30 CDT * Ivanna Dolan Global Account Manager: PERFORM Event Display: Physician/DIRECTOR OF REGIONAL SALES Communication - Text Authored Date: [id number] Physician/DIRECTOR OF REGIONAL SALES Communication Entered On: 07/01/2022 10:22 CDT Performed On: 07/01/2022 10:22 CDT by Ivanna Dolanr MD/DIRECTOR OF REGIONAL SALES Communication Physician/DIRECTOR OF REGIONAL SALES Search : Kan Nicholas MD Date/Time Physician/DIRECTOR OF REGIONAL SALES Communication : 07/01/2022 10:22 CDT Physician/DIRECTOR OF REGIONAL SALES Communication Type : Called Physician/DIRECTOR OF REGIONAL SALES Communication Details : is aware of the pt Ivanna Dolan Global Account Manager - 07/01/2022 10:22 CDT * Ivanna Dolan Global Account Manager: PERFORM Event Display: Physician/DIRECTOR OF REGIONAL SALES Communication - Text Authored Date: [id number] Physician/DIRECTOR OF REGIONAL SALES Communication Entered On: 07/01/2022 10:07 CDT Performed On: 07/01/2022 10:06 CDT by Ivanna Dolan Global Account Manager MD/DIRECTOR OF REGIONAL SALES Communication Physician/DIRECTOR OF REGIONAL SALES Search : Marylin Schneider MD Date/Time Physician/DIRECTOR OF REGIONAL SALES Communication : 07/01/2022 10:06 CDT Physician/DIRECTOR OF REGIONAL SALES Communication Type : Called Physician/DIRECTOR OF REGIONAL SALES Communication Details : is aware of the pt Ivanna Dolan Global Account Manager - 07/01/2022 10:06 CDT * Cheryl Ambriz RN: PERFORM Event Display: Patient History Adult - Text Authored Date: [id number] Patient History Entered On: 07/01/2022 09:26 CDT Performed On: 07/01/2022 09:21 CDT by Cheryl Ambriz RN Preferred Language Preferred Language of Patient/Caregiver : Kazakh Preferred Mode of Communication : Verbal Cheryl Ambriz RN - 07/01/2022 09:21 CDT General Information Information Given By : Patient Cheryl Ambriz RN - 07/01/2022 09:21 CDT Problem List Adult Past Medical History Reviewed : Yes Cheryl Ambriz RN - 07/01/2022 09:21 CDT (As Of: 07/01/2022 09:26 CDT) Problems(Active) Cardiomyopathy, ischemic (ICD-9-CM :414.8 ) Name of Problem: Cardiomyopathy, ischemic ; Recorder: Kwaku Magaña RN; Confirmation: Confirmed ; Classification: Medical ; Code: 414.8 ; Contributor System: PowerChart ; Last Updated: 09/30/2011 05:35 CDT ; Life Cycle Date: 09/30/2011 ; Life Cycle Status: Active ; Vocabulary: ICD-9-CM ; Comments: 09/30/2011 05:35 - Kwaku Magaña RN ejection fraction 25% Chronic systolic heart failure (SNOMED CT :2041336882 ) Name of Problem: Chronic systolic heart failure ; Recorder: Kan Nicholas MD; Confirmation: Confirmed ; Classification: Medical ; Code: 5331345535 ; Contributor System: PowerChart ; Last Updated: 12/28/2020 14:18 CDT ; Life Cycle Date: 12/28/2020 ; Life Cycle Status: Active ; Responsible Provider:Kan Nicholas MD; Vocabulary: SNOMED CT Congestive heart failure (CHF) (SNOMED CT :897168874 ) Name of Problem: Congestive heart failure (CHF) ; Recorder: Cherry Lima RN; Confirmation: Confirmed ; Classification: Medical ; Code: 148874940 ; Contributor System: PowerChart ; Last Updated: 10/23/2016 08:14 CDT ; Life Cycle Date: 09/30/2011 ; Life Cycle Status: Active ; Vocabulary: SNOMED CT Coronary artery disease (SNOMED CT :52555917 ) Name of Problem: Coronary artery disease ; Recorder: Kan Nicholas MD; Confirmation: Confirmed ; Classification: Medical ; Code: 85894997 ; Contributor System: PowerChart ; Last Updated: 12/28/2020 14:18 CDT ; Life Cycle Date: 12/28/2020 ; Life Cycle Status: Active ; Responsible Provider: Kan Nicholas MD; Vocabulary: SNOMED CT Heart attack (SNOMED CT :26989460 ) Name of Problem: Heart attack ; Recorder: Kwaku Magaña RN; Confirmation: Confirmed ; Classification: Medical ; Code: 82758942 ; Contributor System: PowerChart ; Last Updated: 11/06/2018 01:42 CDT ;Life Cycle Date: 11/06/2018 ; Life Cycle Status: Active ; Vocabulary: SNOMED CT Hematuria (SNOMED CT :860904481 ) Name of Problem: Hematuria ; Recorder: Kan Nicholas MD; Confirmation: Confirmed ; Classification: Medical ; Code: 028219147 ; Contributor System: PowerChart ; Last Updated: 04/18/2021 12:12 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 ; Life Cycle Date: 04/18/2021 ; Life Cycle Status: Active ; Responsible Provider: Kan Nicholas MD; Voc abulary: SNOMED CT Hyperlipidemia (SNOMED CT :26176325 ) Name of Problem: Hyperlipidemia ; Recorder: Kan Nicholas MD; Confirmation: Confirmed ; Classification: Medical ; Code: 04593609 ; Contributor System: PowerChart ; Last Updated: 06/09/2022 15:44 CDT; Life Cycle Date: 06/09/2022 ; Life Cycle Status: Active ; Responsible Provider: Kan Nicholas MD; Vocabulary: SNOMED CT Hypertension (SNOMED CT :7212760517 ) Name of Problem: Hypertension ; Recorder: Kan Nicholas MD; Confirmation: Confirmed ; Classification: Medical ; Code: 1185639586 ; Contributor System: PowerChart ; Last Updated: 12/28/2020 14:18 CDT; Life Cycle Date: 12/28/2020 ; Life Cycle Status: Active ; Responsible Provider: Kan Nicholas MD; Vocabulary: SNOMED CT Hypothyroidism (SNOMED CT :88905749 ) Name of Problem: Hypothyroidism ; Recorder: Fern Sullivan RN; Confirmation: Confirmed ; Classification: Patient Stated ; Code: 27143273 ; Contributor System: PowerChart ; Last Updated: 12/22/2019 09:16 CDT ; Life Cycle Date: 12/22/2019 ; Life Cycle Status: Active ; Vocabulary: SNOMED CT Diagnoses(Active) Dyspnea Date: 07/01/2022 ; Diagnosis Type: Discharge ; Confirmation: Confirmed ; Clinical Dx: Dyspnea ; Classification: Medical ; Clinical Service: Non-Specified ; Code: ICD-10-CM ; Probability: 0 ; Diagnosis Code: R06.00 Fatigue Date: 07/01/2022 ; Diagnosis Type: Discharge ; Confirmation: Confirmed ; Clinical Dx: Fatigue ; Classification: Medical ; Clinical Service: Non-Specified ; Code: ICD-10-CM ; Probability: 0 ; Diagnosis Code: R53.83 General medical Date: 07/01/2022 ; Diagnosis Type: Reason For Visit ; Confirmation: Confirmed ; Clinical Dx: General medical ; Classification: Medical ; Clinical Service: Emergency medicine ; Code: PNED ; Probability:0 ; Diagnosis Code: [id number] History of coronary artery disease Date: 07/01/2022 ; Diagnosis Type: Discharge ; Confirmation: Confirmed ; Clinical Dx: History of coronary artery disease ; Classification: Medical ; Clinical Service: Non-Specified ; Code: ICD-10-CM ; Probability: 0 ; Diagnosis Code: Z86.79 Weakness or fatigue Date: 07/01/2022 ; Diagnosis Type: Reason For Visit ; Confirmation: Confirmed ; Clinical Dx: Weaknessor fatigue ; Classification: Medical ; Clinical Service: Emergency medicine ; Code: PNED ; Probability: 0 ; Diagnosis Code: [id number] Family Health History Family History Reviewed : Yes Cheryl Ambriz RN - 07/01/2022 09:21 CDT Family History (As Of: 07/01/2022 09:26 CDT) Mother: Relation: Mother ; Gender: Female ; Nomenclature: Heart Disease ; Value: Positive Father: Relation: Father ; Gender: Male ; Nomenclature: Heart Disease ; Value: Positive Sister: Relation: Sister ; Gender: Female ; Nomenclature: Heart Disease ; Value: Positive Brother: Relation: Brother ; Gender: Male ; Nomenclature: Heart Disease ; Value: Positive Procedure History Procedure History Reviewed : Yes Cheryl Ambriz RN - 07/01/2022 09:21 CDT - Procedure History (As Of: 07/01/2022 09:26 CDT) Procedure Dt/Tm: 06/25/2007 ; Anesthesia Minutes: 0 ; Procedure Name: Cardiac catheterization ; Procedure Minutes: 0 ; Comments: 07/04/2009 12:34 Dvei Arita RN PCI diagonal, PCI LAD Procedure Dt/Tm: 11/08/2003 ; Anesthesia Minutes: 0 ; Procedure Name: Cardiac catheterization ; Procedure Minutes: 0 ; Comments: 07/04/2009 12:31 Devi Arita RN PTCA with 2 stents to LAD Procedure Dt/Tm: 12/29/1997 ; Anesthesia Minutes: 0 ; Procedure Name: Cardiac catheterization procedure ; Procedure Minutes: 0 ; Comments: 07/04/2009 12:30 Devi Arita RN 100% LAD, stented Procedure Dt/Tm: 10/23/2004 ; Anesthesia Minutes: 0 ; Procedure Name: Cardiac catheterization ; Procedure Minutes: 0 ; Comments: 07/04/2009 12:32 Devi Arita RN PTCA to OM Procedure Dt/Tm: 05/21/2006 ; Anesthesia Minutes: 0 ; Procedure Name: Cardiac catheterization ; Procedure Minutes: 0 Anesthesia Minutes: 0 ; Procedure Name: cholecystectomy 03/2011 ; Procedure Minutes: 0 Anesthesia Minutes: 0 ; Procedure Name: cardiac stints x14 ; Procedure Minutes: 0 ; Comments: 09/30/2011 05:31 CDT - Kwaku Magaña RN last stint 03/09 Allergies Allergies Verified? : Yes Cheryl Ambriz RN - 07/01/2022 09:21 CDT (As Of: 07/01/2022 09:26 CDT) Allergies (Active) NKA Estimated Onset Date: Unspecified ; Created By: Maureen Cullen RN; Reaction Status: Active ; Category: Drug ; Substance: NKA ; Type: Allergy ; Updated By: Maureen Cullen RN; Reviewed Date: 07/01/2022 04:39 CDT Medication List Medications Verified? : No Cheryl Ambriz RN - 07/01/2022 09:21 CDT Medication List (As Of: 07/01/2022 09:26 CDT) Prescription/Discharge Order nebivolol : nebivolol ; Status: Prescribed ; Ordered As Mnemonic: Nebivolol 5 mg oral tablet ; Simple DisplayLine: See Instructions, TAKE 1 TABLET BY MOUTH ONCE DAILY AT BEDTIME, 90 tablet(s), 3 Refill(s) ; Ordering Provider: Kan Nicholas MD; Catalog Code: nebivolol ; Order Dt/Tm: 03/07/2022 13:38 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 rosuvastatin : rosuvastatin ; Status: Prescribed ; Ordered As Mnemonic: rosuvastatin 20 mg oral tablet ; Simple Display Line: See Instructions, TAKE 1 TABLET BY MOUTH AT BEDTIME, 90 tablet(s), 3 Refill(s) ; Ordering Provider: Kan Nicholas MD; Catalog Code: rosuvastatin ; Order Dt/Tm: 03/07/2022 13:40 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 clopidogrel : clopidogrel ; Status: Prescribed ; Ordered As Mnemonic: clopidogrel 75 mg oral tablet ; Simple Display Line: 75 mg, 1 tablet(s), Oral, daily, for 90 day(s), 90 tablet(s), 3 Refill(s) ; Ordering Provider: Kan Nicholas MD; Catalog Code: clopidogrel ; Order Dt/Tm: 03/07/2022 13:39 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 furosemide : furosemide ; Status: Prescribed ; Ordered As Mnemonic: furosemide 40 mg oral tablet ; Simple Display Line: 40 mg, 1 tablet(s), Oral, daily, for 90 day(s), PRN: swelling, 90 tablet(s), 3 Refill(s) ;Ordering Provider: Kan Nicholas MD; Catalog Code: furosemide ; Order Dt/Tm: 03/07/2022 13:39 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 Home Meds aspirin : aspirin ; Status: Documented ; Ordered As Mnemonic: aspirin 81 mg oral enteric coated tablet ; Simple Display Line: 81 mg, 1 tablet(s), Oral, daily, 0 Refill(s) ; Catalog Code: aspirin ; Order Dt/Tm: 10/23/2016 05:56 CDT ascorbic acid : ascorbic acid ; Status: Documented ; Ordered As Mnemonic: Vitamin C 500 mg oral tablet ; Simple Display Line: 500 mg, 1 tablet(s), Oral, daily, 30 tablet(s), 0 Refill(s) ; Catalog Code: ascorbic acid ; Order Dt/Tm: 12/28/2020 14:09 CDT levothyroxine : levothyroxine ; Status: Documented ; Ordered As Mnemonic: levothyroxine 50 mcg (0.05 mg) oral tablet ; Simple Display Line: 50 mcg, 1 tablet(s), Oral, daily before breakfast, 30 tablet(s), 0 Refill(s) ; Catalog Code: levothyroxine ; Order Dt/Tm: 05/23/2020 10:08 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 zinc sulfate : zinc sulfate ; Status: Documented ; Ordered As Mnemonic: Zinc ; Simple Display Line: 30 mg, Oral,daily, 0 Refill(s) ; Catalog Code: zinc sulfate ; Order Dt/Tm: 12/28/2020 14:09 CDT cholecalciferol : cholecalciferol ; Status: Documented ; Ordered As Mnemonic: cholecalciferol ; Simple Display Line: 2000 IU, Oral, daily, 0 Refill(s) ; Catalog Code: cholecalciferol ; Order Dt/Tm: 12/28/2020 14:09 CDT chondroitin-glucosamine : chondroitin-glucosamine ; Status: Documented ; Ordered As Mnemonic: Chondroitin-Glucosamine ; Simple Display Line: 2 capsule(s), Oral, qhs, 0 Refill(s) ; Catalog Code: chondroitin-glucosamine ; Order Dt/Tm: 11/06/2018 02:11 CDT multivitamin : multivitamin ; Status: Documented ; Ordered As Mnemonic: Multivitamin oral tablet ; Simple Display Line: 1 tablet(s), Oral, daily, 30 tablet(s), 0 Refill(s) ; Catalog Code: multivitamin ; Order Dt/Tm: 12/28/2020 14:09 CDT nitroglycerin : nitroglycerin ; Status: Documented ; Ordered As Mnemonic: nitroglycerin 0.4 mg sublingual tablet ; Simple Display Line: 0.4 mg, 1 tablet(s), Sublingual, as needed, not to exceed 3 doses/15 min--if pain persists, seek medical attention, PRN: chest pain, 1 bottle, 0 Refill(s) ; Catalog Code: nitroglycerin ; Order Dt/Tm: 05/23/2020 10:08 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 Anesthesia/Transfusion Anesthesia/Transfusions : No prior transfusion, Prior anesthesia Cheryl Ambriz RN - 07/01/2022 09:21 CDT Functional Dance Studio Manager Card : Unable to obtain Medical Devices : Coronary artery stent or Vascular stent Radiology Testing Barriers/Precautions : None Medical Devices/Radiology Barriers Verified : Yes Living Situation : Home with family care Anticipated Discharge Needs : Home with family care Cheryl Ambriz RN - 07/01/2022 09:21 CDT Social Habits Social History Reviewed : Yes Cheryl Ambriz RN - 07/01/2022 09:21 CDT Social History (As Of: 07/01/2022 09:26 CDT) Tobacco: Former smoker, Smokeless Tobacco use: Never. N/A Cessation Counseling. Started age 15.0 Years. Stopped age 28 Years. (Last Updated: 04/18/2022 13:26 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 by Saima Anne LAPPER) Alcohol: Former alcohol user, 28 years old (Last Updated: 04/18/2022 13:26 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 by Saima Anne LAPPER) Substance Abuse: Never drug user (Last Updated: 04/18/2022 13:26 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 by Saima Anne LAPPER) Cultural/Spiritual Pastoral Care to Visit : No Cheryl Ambriz RN - 07/01/2022 09:21 CDT Psychosocial Domestic Violence Screening : Patient does not have domestic violence concerns Current Danger to Self or Others : No Current treatment for Cancer on 7700 : No Little interest/pleasure in doing things? : No Feeling down, depressed, or hopeless? : No Have you wished you were ? : No Had thoughts of killing yourself? : No Ever attempted to kill yourself? : No Cheryl Ambriz RN - 07/01/2022 09:21 CDT Elopement Risk Assessment Is pt ambulatory or self-mobile in w/c? : Yes Is pt new admit questioning being here? : No Cheryl Ambriz RN - 07/01/2022 09:21 CDT Advance Directive Advanced Directives : Yes Advance Directive Type : Living will Advance Directive Location : Family to bring in copy from home Cheryl Ambriz RN - 07/01/2022 09:21 CDT TB Screen Previous Pneumococcal Vaccine? : Yes Flu Vaccine This Season? : Yes Novel Coronavirus Received Vaccine : No Cheryl Ambriz RN - 07/01/2022 09:21 CDT Novel Coronavirus Assessment Novel Coronavirus Current Fever : No Novel Coronavirus Exposed COVID 14 days : No Cheryl Ambriz RN - 07/01/2022 09:21 CDT * Mai Troy RN: PERFORM Event Display: Health History/Procedures - Text Authored Date: [id number] ED Health History/Procedures Entered On: 07/01/2022 05:28 CDT Performed On: 07/01/2022 05:28 CDT by Mai Troy RN Problem List Adult Past Medical History Reviewed : Yes Mai Troy RN - 07/01/2022 05:28 CDT (As Of: 07/01/2022 05:28 CDT) Problems(Active) Cardiomyopathy, ischemic (ICD-9-CM :414.8 ) Name of Problem: Cardiomyopathy, ischemic ; Recorder: Kwaku Magaña RN; Confirmation: Confirmed ; Classification: Medical ; Code: 414.8 ; Contributor System: PowerChart ; Last Updated: 09/30/2011 05:35 CDT ; Life Cycle Date: 09/30/2011 ; Life Cycle Status: Active ; Vocabulary: ICD-9-CM ; Comments: 09/30/2011 05:35 - Kwaku Magaña RN ejection fraction 25% Chronic systolic heart failure (SNOMED CT :9045687874 ) Name of Problem: Chronic systolic heart failure ; Recorder: Kan Nicholas MD; Confirmation: Confirmed ; Classification: Medical ; Code: [id number] ; Contributor System: PowerChart ; Last Updated: 12/28/2020 14:18 CDT ; Life Cycle Date: 12/28/2020 ; Life Cycle Status: Active ; Responsible Provider: Kan Nicholas MD; Vocabulary: SNOMED CT Congestive heart failure (CHF) (SNOMED CT :283109030 ) Name of Problem: Congestive heart failure (CHF) ; Recorder: Cherry Lima RN; Confirmation: Confirmed ; Classification: Medical ; Code: [id number] ; Contributor System: PowerChart ; Last Updated: 10/23/2016 08:14 CDT ; Life Cycle Date: 09/30/2011 ; Life Cycle Status: Active ; Vocabulary: SNOMED CT Coronary artery disease (SNOMED CT :54374065 ) Name of Problem: Coronary artery disease ; Recorder: Kan Nicholas MD; Confirmation: Confirmed ; Classification: Medical ; Code: 79968592 ; Contributor System: PowerChart ; Last Updated: 12/28/2020 14:18 CDT ; Life Cycle Date: 12/28/2020 ; Life Cycle Status: Active ; Responsible Provider: Kan Nicholas MD; Vocabulary: SNOMED CT Heart attack (SNOMED CT :84008704 ) Name of Problem: Heart attack ; Recorder: Kwaku Magaña RN; Confirmation: Confirmed ; Classification: Medical ; Code: 65139472 ; Contributor System: PowerChart ; Last Updated: 11/06/2018 01:42 CDT ;Life Cycle Date: 11/06/2018 ; Life Cycle Status: Active ; Vocabulary: SNOMED CT Hematuria (SNOMED CT :534775378 ) Name of Problem: Hematuria ; Recorder: Kan Nicholas MD; Confirmation: Confirmed ; Classification: Medical ; Code: 292362539 ; Contributor System: PowerChart ; Last Updated: 04/18/2021 12:12 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 ; Life Cycle Date: 04/18/2021 ; Life Cycle Status: Active ; Responsible Provider: Kan Nicholas MD; Vo cabulary: SNOMED CT Hyperlipidemia (SNOMED CT :25985242 ) Name of Problem: Hyperlipidemia ; Recorder: Kan Nicholas MD; Confirmation: Confirmed ; Classification: Medical ; Code: 33682008 ; Contributor System: PowerChart ; Last Updated: 06/09/2022 15:44 CDT; Life Cycle Date: 06/09/2022 ; Life Cycle Status: Active ; Responsible Provider: Kan Nicholas MD; Vocabulary: SNOMED CT Hypertension (SNOMED CT :2008608101 ) Name of Problem: Hypertension ; Recorder: Kan Nicholas MD; Confirmation: Confirmed ; Classification: Medical ; Code: [id number] ; Contributor System: PowerChart ; Last Updated: 12/28/2020 14:18 CDT ; Life Cycle Date: 12/28/2020 ; Life Cycle Status: Active ; Responsible Provider: Kan Nicholas MD; Vocabulary: SNOMED CT Hypothyroidism (SNOMED CT :92819865 ) Name of Problem: Hypothyroidism ; Recorder: Fern Sullivan RN; Confirmation: Confirmed ; Classification: Patient Stated ; Code: 29572711 ; Contributor System: PowerChart ; Last Updated: 12/22/2019 09:16 CDT ; Life Cycle Date: 12/22/2019 ; Life Cycle Status: Active ; Vocabulary: SNOMED CT Diagnoses(Active) General medical Date: 07/01/2022 ; Diagnosis Type: Reason For Visit ; Confirmation: Confirmed ; Clinical Dx: General medical ; Classification: Medical ; Clinical Service: Emergency medicine ; Code: PNED ; Probability:0 ; Diagnosis Code: [id number] Weakness or fatigue Date: 07/01/2022 ; Diagnosis Type: Reason For Visit ; Confirmation: Confirmed ; Clinical Dx: Weaknessor fatigue ; Classification: Medical ; Clinical Service: Emergency medicine ; Code: PNED ; Probability: 0 ; Diagnosis Code: [id number] Family Health History Family History Reviewed : Yes Mai Troy RN - 07/01/2022 05:28 CDT Family History (As Of: 07/01/2022 05:28 CDT) Mother: Relation: Mother ; Gender: Female ; Nomenclature: Heart Disease ; Value: Positive Father: Relation: Father ; Gender: Male ; Nomenclature: Heart Disease ; Value: Positive Sister: Relation: Sister ; Gender: Female ; Nomenclature: Heart Disease ; Value: Positive Brother: Relation: Brother ; Gender: Male ; Nomenclature: Heart Disease ; Value: Positive Procedure History Procedure History Reviewed : Yes Mai Troy RN - 07/01/2022 05:28 CDT - Procedure History (As Of: 07/01/2022 05:28 CDT) Procedure Dt/Tm: 06/25/2007 ; Anesthesia Minutes: 0 ; Procedure Name: Cardiac catheterization ; Procedure Minutes: 0 ; Comments: 07/04/2009 12:34 Devi Arita RN PCI diagonal, PCI LAD ; Last Reviewed Dt/Tm: 07/01/2022 05:28 CDT Procedure Dt/Tm: 11/08/2003 ; Anesthesia Minutes: 0 ; Procedure Name: Cardiac catheterization ; Procedure Minutes: 0 ; Comments: 07/04/2009 12:31 Devi Arita RN PTCA with 2 stents to LAD ; Last Reviewed Dt/Tm: 07/01/2022 05:28 CDT Procedure Dt/Tm: 12/29/1997 ; Anesthesia Minutes: 0 ; Procedure Name: Cardiac catheterization procedure ; Procedure Minutes: 0 ; Comments: 07/04/2009 12:30 Devi Arita RN 100% LAD, stented ; Last Reviewed Dt/Tm: 07/01/2022 05:28 CDT Procedure Dt/Tm: 10/23/2004 ; Anesthesia Minutes: 0 ; Procedure Name: Cardiac catheterization ; Procedure Minutes: 0 ; Comments: 07/04/2009 12:32 CDT - Devi Mercado RN PTCA to OM ; Last Reviewed Dt/Tm:07/01/2022 05:28 CDT Procedure Dt/Tm: 05/21/2006 ; Anesthesia Minutes: 0 ; Procedure Name: Cardiac catheterization ; Procedure Minutes: 0 ; Last Reviewed Dt/Tm: 07/01/2022 05:28 CDT Anesthesia Minutes: 0 ; Procedure Name: cholecystectomy 03/2011 ; Procedure Minutes: 0 ; Last Reviewed Dt/Tm: 07/01/2022 05:28 CDT Anesthesia Minutes: 0 ; Procedure Name: cardiac stints x14 ; Procedure Minutes: 0 ; Comments: 09/30/2011 05:31 CDT - Kwaku Magaña RN last stint 03/09 ; Last Reviewed Dt/Tm: 07/01/2022 05:28 CDT Social Habits Flu Vaccine This Season? : Unsure Novel Coronavirus Current Fever : No Novel Coronavirus Exposed COVID 14 days : No Novel Coronavirus Received Vaccine : Unsure Mai Troy RN - 07/01/2022 05:28 CDT Social History (As Of: 07/01/2022 05:28 CDT) Tobacco: Former smoker, Smokeless Tobacco use: Never. N/A Cessation Counseling. Started age 15.0 Years. Stopped age 28 Years. (Last Updated: 04/18/2022 13:26 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 by Saima Anne LAPPER) Alcohol: Former alcohol user, 28 years old (Last Updated: 04/18/2022 13:26 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 by Saima Anne LAPPER) Substance Abuse: Never drug user (Last Updated: 04/18/2022 13:26 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 by Saima Anne LAPPER) Exercise: Exercise frequency: Daily. Exercise type: Walking. (Last Updated: 12/28/2020 14:14 CDT by Saima Anne LAPPER) Employment/School: Retired (Last Updated: 12/28/2020 14:14 CDT by Saima Anne LAPPER) Other: Comments: 12/28/2020 14:14 - Saima Anne LAPPER: Patient is and has 2 children. (Last Updated: 12/28/2020 14:14 CDT by Saima Anne LAPPER) Medical Devices Medical Devices : Coronary artery stent or Vascular stent Dance Studio Manager Card : Unable to obtain Radiology Testing Barriers/Precautions : None Mai Troy RN - 07/01/2022 05:28 CDT * Event Display: Authorization to Treat Authored Date: * Event Display: Authorization to Treat Authored Date: * Event Display: Designated Caregiver Text Authored Date: [id number] * Event Display: Patient Provided Clipboard Authored Date: Ambulatory Comprehensive Intake Ambulatory Comprehensive IntakeOriginating Source: PATIENTOriginating Author: MITCHELL CurtisboardSubmission Date: December 22, 2020 1:51:50 PM -05:00 MITCHELL RODRIGUEZ : 1950 Sex: Male MRN(s): [id number], [id number] Ambulatory Comprehensive Intake Question Response Advance Directive Advance Directive Date Location of Advance Directive Type of Advance Directive Patient has Court Appointed Guardian No Location of Court Appointed Guardian Documentation Legal Guardian Medical Power of Computer System Specialist Name Patient Requests Counseling Regarding Advance Directives History of Falling in Last 3 Months, Including Since Admission No Impaired Judgment/Lack of Safety Awareness No Agitation No Impaired Gait, Shuffle, Wide Base, Unsteady Walk No Ever Experience Dizziness or Vertigo No Ever Wet or Soil Yourself on Way to Bathroom No Medical Devices None Dance Studio Manager Card Other Dance Studio Manager Details Radiology Testing Barriers/Precautions Coronary artery stent or Vascular stent Menstrual Status N/A Previous LMP Date Last Menstrual Period Description Menarche Onset Menarche Frequency Menarche Length Menstrual Comments PAP result HPV Coping Effective Stressors Emotional Support Available Do You Receive Comfort From Spiritual Practices Scientology Preference [facility] Comments Weight Change >10lbs Fever [...] voices No Marital or relationship problems No media/instructional designer awakenings Yes Chief Complaint Pain Present No actual or suspected pain Numeric Rating Pain Scale Primary Pain Location Primary Pain Comments * Event Display: ROI_Correspondence * Event Display: ROI_Correspondence * Event Display: ROI_Correspondence * Event Display: ROI_Correspondence * HPF, Image_Migration: VERIFY, PERFORM Event Display: ROI_Correspondence Authored Date: * HPF, Image_Migration: VERIFY, PERFORM Event Display: ROI_Correspondence Authored Date: Progress note * Kan Nicholas MD: PERFORM Event Display: Progress Note-Physician Authored Date: Patient Information Name:MITCHELL RODRIGUEZ Address: [address] [place] [id number] Sex:Male Date of :1950 Location:[facility] Registration Date and Time:07/01/2022 02:11 CDT Primary Care Physician: Nikky Reyes M.D., Attending Physician: Mahogany Roman MD, Subjective No significant events overnight. ??The patient underwent an echocardiogram yesterday which showed an ejection fraction of approximately 40%.?? Plan for left heart catheterization this morning. Objective Vitals & Measurements T:??36.1?C (Temporal Artery)?? TMIN:??35.8?C (Temporal Artery)?? TMAX:??36.1?C (Temporal Artery)?? HR:??65(Monitored)?? RR:??18?? BP:??119/64?? WT:??90.6??kg?? Physical Exam Vital signs reviewed.?? General:??Well nourished and in no acute distress.?? HEENT:??Normocephalic. Sclera anicteric. Moist mucous membranes.?? Neck:??No lymphadenopathy noted. Respiratory:?Lungs are clear to auscultation bilaterally. No rales or wheezes. Cardiac:??Regular rhythm. Normal S1 and S2. No murmurs, rubs or gallops appreciated. No JVD. No LE edema.?? Abdomen:??Soft, nondistended, nontender to palpation. Extremities:??Warm and well perfused Neurologic:??Awake, alert and oriented x4. No focal deficits. Psychiatric:??Appropriate mood and affect. Skin: No new rashes or lesions. ?? Lipid Panel Latest Results Cholesterol: 93 mg/dL (04/18/21) Triglyceride:??193 mg/dL??High (04/18/21) LDL (Calc): 34 mg/dL (04/18/21) Direct HDL:??20 mg/dL??Low (04/18/21) ?? CBC Latest Results WBC: 9 K/uL (07/02/22) Hemoglobin:??13 g/dL??Low (07/02/22) Hematocrit:??38.2 %??Low (07/02/22) MCV: 95 fL (07/02/22) Platelet: 156 K/uL (07/02/22) ?? Basic Metabolic Panel Latest Results Sodium: 138 mmol/L [137 mmol/L - 145 mmol/L] (07/02/22) Potassium: 3.8 mmol/L [3.5 mmol/L - 4.9 mmol/L] (07/02/22) Chloride: 104 mmol/L [98 mmol/L - 107 mmol/L] (07/02/22) CO2: 27 mmol/L [22 mmol/L - 30 mmol/L] (07/02/22) BUN: 18 mg/dL [9 mg/dL - 20 mg/dL] (07/02/22) Creatinine: 0.8 mg/dL [0.7 mg/dL - 1.3 mg/dL] (07/02/22) ?? CMP Latest Results BUN: 18 mg/dL (07/02/22) Chloride: 104 mmol/L (07/02/22) CO2: 27 mmol/L (07/02/22) Creatinine: 0.8 mg/dL (07/02/22) Potassium: 3.8 mmol/L (07/02/22) Sodium: 138 mmol/L (07/02/22) Glucose:??121 mg/dL??High (07/02/22) Protein, Total: 7.5 g/dL (07/01/22) Albumin: 4.1 g/dL (07/01/22) Alk Phos: 63 U/L (07/01/22) AST: 32 U/L (07/01/22) ALT: 26 U/L (07/01/22) Bilirubin, Total: 0.8 mg/dL (07/01/22) ?? Troponin Results Troponin I: <0.01 (07/01/22 13:48:00) ?? PT/INR Latest Results INR: 1.1 (07/01/22 05:19:00) Protime (PT): 14.4 sec (07/01/22 05:19:00) ?? NT ProBNP NT-proBNP: 265 pg/mL (07/01/22) ?? TSH/T4/T3 TSH, Highly Sensitive: 3.7 uIU/mL (07/01/22) ?? I personally reviewed the laboratory data which shows a sodium of 138, potassium 3.8, creatinine 0.8, hemoglobin 13.0, white blood cell count 9.0. Assessment/Plan #Coronary artery disease #Fatigue #Shortness of breath with exertion -The patient has a history of multiple stents and multiple coronary arteries??and his last cardiac cath was performed in May 2020??which showed mild to moderate disease of the left main coronaryartery??as well as mild in- stent restenosis in multiple arteries -He now has??had shortness of breath with exertion as well as fatigue; he denies any chest pain; this all occurred after he picked up a heavy bag and moved it across the room -He has a history of at least 14 stents??and he does note that he has had similar symptoms prior toneeding stents before in the past??and thus, I am planning to proceed with left heart catheterization this morning ?? #Chronic systolic heart failure -His last echocardiogram showed an ejection fraction of approximately 46%; he is currently on Bystolic as well as Lasix -He appears euvolemic on exam today and??his NT proBNP was noted to be normal -He did undergo a repeat echocardiogram which showed an ejection fraction of approximately 40%; I am going to discuss with him about transitioning him to??more guideline directed medical therapy for heart failure??after his cardiac catheterization ?? #HTN -His blood pressure is well controlled today on his current dose of Bystolic and Lasix ?? #HLD -On Crestor 20 mg daily Voice to Text Technology Disclaimer This note may contain text inserted via [employer]on or other voice to text assistive technology and mineral economist, variances may occur. [Electronically Signed on 07/02/2022 07:39 AM CDT] Kan Nicholas MD EKG study * Event Display: EKG Report * Event Display: EKG Regular * Event Display: EKG Regular Authored Date: Vent Rate: 64 bpm RR Interval: 931 msec TN Interval: 172 msec QRS Duration: 135 msec QT Interval: 412 msec QTC Interval: 421 msec P-R-T [place]: 63 - -60 - -5 degrees SINUS RHYTHM RIGHT BUNDLE BRANCH BLOCK [120+ ms QRS DURATION, UPRIGHT V1, 40+ ms S IN I/aVL/V4/V5/V6] INFERIOR MYOCARDIAL INFARCTION , PROBABLY OLD [40+ ms Q WAVE AND/OR ST/T ABNORMALITY IN II/aVF] ABNORMAL ECG Compared to prior on 01-Jul-2022 05:02:50 AM: No Significant Changes Electronically Signed By: Gallo Saleh MD [facility] * Event Display: EKG Report * Event Display: EKG-ED * Event Display: EKG-ED Authored Date: Vent Rate: 56 bpm RR Interval: 1055 msec TN Interval: 165 msec QRS Duration: 157 msec QT Interval: 453 msec QTC Interval: 446 msec P-R-T [place]: 66 - -57 - 0 degrees SINUS BRADYCARDIA WITH OCCASIONAL VENTRICULAR PREMATURE COMPLEXES RIGHT BUNDLE BRANCH BLOCK LEFT ANTERIOR FASCICULAR BLOCK ABNORMAL ECG Compared to prior on 09-Jun-2020 08:53:07 PM: No Significant Changes Electronically Signed By: Gallo Saleh MD [facility] Heart * Event Display: Echocardiogram Report * Event Display: Echocardiogram Complete Study * Event Display: Echocardiogram Complete Study Authored Date: [facility] [address] [place] [id number] Transthoracic Echocardiogram Patient Name: MITCHELL RODRIGUEZ J : 1950 Study Date: 07/01/2022 2:39:35 PM Gender: M Tank Hoop Bender: MZLocation: [id number] Ref.Provider: DORITA CARUSO Height(Cm): 185 BSA: 2.16 Weight(Kg): 91 BP: 101/65Quality: Good Order Provider: DORITA CARUSO PROCEDURES: Echocardiographic Report: Transthoracic echocardiogram with complete 2D, M-Mode, color and Doppler examination. INDICATIONS: Dyspnea R06.0. Measurements: 2D/M Mode Doppler Measurement Value Normal Range Measurement Value Normal Range LVIDd 2D 4.8 [ 3.9 - 5.7 ] cm LVOT Peak Bryn 92.6 [ 80.0 - 150.0 ] cm/s LVIDs 2D 4.4 [ 2.0 - 3.8 ] cm LVOT VTI 17.2 [ 20.0 - 30.0 ] cm IVSd Mid 2D 1.0 [ 0.6 - 1.0 ] cm LVOT Diam 2D 2.4 [ 1.4 - 2.6 ] cm LVPWd 2D 0.9 [ 0.6 - 1.0 ] cm LVOT SVI 36.25 [ 35.00 - 70.00 ] mL/m2 LV Mass 159 g AV Peak Bryn 132.6 cm/s LV Mass Index 74 [ 49 - 115 ] g/m2 AV Peak PG 7.0 mmHg RWT 0.38 AV DV Index (Velocity) 0.70 [ >= 0.50 ] EF Mod BP 40 [ 50 - 74 ] % MV E Peak Bryn 58.4 [ 70.0 - 120.0 ] cm/s FS 2D 8 [ 25 - 47 ] % MV A Peak Bryn 69.2 cm/s LA Volume Index 2D 25 [ 20 - 34 ] cc/m2 MV E/A 0.8 RVDd 2D 3.6 cm MV Decel Time 170.1 [ 180.0 - 240.0 ] msec TAPSE 2.0 [ 1.6 - 2.3 ] cm PV Peak Bryn 104.1 [ 80.0 - 150.0 ] cm/s RA Area 2D 18 [ 8 - 20 ] cm2 PV Peak PG 4.3 mmHg IVC Diameter 2D 1.3 [ 1.1 - 2.1 ] cm Tricuspid S` 11.7 [ 10.0 - 25.0 ] cm/s LVOT Diam 2D 2.4 [ 1.4 - 2.6 ] cm Lateral E` 7 cm/s Sinus V 2D 3.7 cm Medial E` 5 cm/s Asc AoR 2D 3.7 [ 2.0 - 3.7 ] cm Average E` 6.00 cm/s E/E` 9.73 [ <= 14.00 ] Measurement Value Normal Range Measurement Value Normal Range 2D/M Mode Doppler - FINDINGS: Left Ventricle: Normal left ventricular cavity size. Moderately depressed left ventricular systolic function. Left ventricular dysfunction is global, worse in the anteroseptal, inferior and inferolateral segments. The left ventricular ejection fraction is measured by Breen's biplane method at 40 %. Normal left ventricular mass index. Global Longitudinal Strain (GLS) was abnormal at -13.6%. Regional LV bull's-eye suggests strain is worse in almost all basal segments, and particular the mid to basal anterior elliott. Right Ventricle: Normal right ventricular size. Normal right ventricular systolic function. Left Atrium: The left atrium is normal in size. Right Atrium: The right atrium is normal in size. Atrial Septum: Normal atrial septum. Mitral Valve: Normal appearance of the mitral valve leaflets. Mild mitral regurgitation. No mitral stenosis. Aortic Valve: Trileaflet aortic valve. No hemodynamically significant aortic stenosis by Doppler. Trace aortic regurgitation. Tricuspid Valve: Normal appearance of the tricuspid valve. There is trace tricuspid regurgitation. Tricuspid regurgitant jet velocity envelope is inadequate for determination of RVSP. Pulmonic Valve: Normal appearance of the pulmonic valve leaflets on limited views. No pulmonic stenosis. No evidence of pulmonic regurgitation. Pericardium: No significant pericardial effusion. Aorta: Normal ascending aorta size for habitus. Aortic root size is normal for habitus. IVC: Normal inferior vena cava appearance and respiratory collapse. Pulmonary Artery: Pulmonary artery is not well visualized. Rhythm: The rhythm during the study was sinus bradycardia. Prior Comparison: Compared with prior study of 10/18/2021, no major change. CONCLUSIONS: 1. Left ventricular dysfunction is global, worse in the anteroseptal, inferior and inferolateral segments. The left ventricular ejection fraction is measured by Breen's biplane method at 40 %. Global Longitudinal Strain (GLS) was abnormal at -13.6%. Regional LV bull's-eye suggests strain is worse in almost all basal segments, and particular the mid to basal anterior elliott. 2. Normal right ventricular systolic function. 3. No significant valvular abnormalities. Electronically Signed By: Isaias Tinajero III, MD, [facility] 2022-07-01 17:22:01 CDT CC: CC: Consult note * Kan Nicholas MD: PERFORM, MODIFY Event Display: Consultation Authored Date: Patient Information Name:MITCHELL RODRIGUEZ Address: [address] [place], [place] [id number] Sex:Male Date of :1950 Location:[facility] Registration Date and Time:07/01/2022 02:11 CDT Primary Care Physician: Nikky Reyes M.D., Attending Physician: Mahogany Roman MD, Chief Complaint Fatigue Reason for Consultation Fatigue/shortness of breath in the setting of coronary artery disease History of Present Illness Mr. Rodriguez is a 72-year-old male with a history of coronary artery disease status post multiple stents??to the LAD, circumflex, and right coronary artery, also history of ischemic cardiomyopathy previous ejection fraction of 36% now up to 46%,??and hypertension??who recently presented to the emergency room with??fatigue and shortness of breath with exertion. ??The patient notes that he was feeling well and I last saw him at the beginning of May??and at that time, he had no significant complaints.?? He notes that on Friday, he picked up a??50 pound bag and moved to??a short distance.?? Since that time,??the patient has significant fatigue??as well as shortness of breath with exertion.??He notes that before previous stents, he has had??fatigue in the past as well.?? He denies any significant chest pain. Review of Systems A 12 point??review of systems was obtained and negative except as stated in the HPI. Vitals and Measurements Vital Signs Height: 185 cm Height: 185 cm Weight: 90.6 kg Weight: 91.5 kg Weight Source: Actual Body Mass Index: 26.47 kg/m2 Body Mass Index: 26.73 kg/m2 Temperature Temporal Artery:??35.8 DegC??Low Temperature Temporal Artery: 36 DegC Systolic Blood Pressure: 130 mm Hg Systolic Blood Pressure: 111 mm Hg Systolic Blood Pressure: 133 mm Hg Diastolic Blood Pressure: 81 mm Hg Diastolic Blood Pressure: 71 mm Hg Diastolic Blood Pressure:??91 mm Hg??High Peripheral Pulse Rate: 66 bpm Peripheral Pulse Rate: 63 bpm Heart Rate Monitored: 60 bpm Heart Rate Monitored: 67 bpm Heart Rate Monitored:??56 bpm??Low Respiratory Rate: 16 br/min Respiratory Rate: 15 br/min Respiratory Rate: 19 br/min Oxygen Saturation: 98 % Oxygen Saturation: 96 % Oxygen Saturation: 95 % Physical Exam Vital signs reviewed.?? General:??Well nourished and in no acute distress.?? HEENT:??Normocephalic. Sclera anicteric. Moist mucous membranes.?? Neck:??No lymphadenopathy noted. Respiratory:?Lungs are clear to auscultation bilaterally. No rales or wheezes. Cardiac:??Regular rhythm. Normal S1 and S2. No murmurs, rubs or gallops appreciated. No JVD. No LE edema.?? Abdomen:??Soft, nondistended, nontender to palpation. Extremities:??Warm and well perfused Neurologic:??Awake, alert and oriented x4. No focal deficits. Psychiatric:??Appropriate mood and affect. Skin: No new rashes or lesions. ?? Lipid Panel Latest Results Cholesterol: 93 mg/dL (04/18/21) Triglyceride:??193 mg/dL??High (04/18/21) LDL (Calc): 34 mg/dL (04/18/21) Direct HDL:??20 mg/dL??Low (04/18/21) ?? CBC Latest Results WBC: 8.3 K/uL (07/01/22) Hemoglobin: 13.6 g/dL (07/01/22) Hematocrit: 40.1 % (07/01/22) MCV: 96.9 fL (07/01/22) Platelet: 178 K/uL (07/01/22) ?? Basic Metabolic Panel Latest Results Sodium: 139 mmol/L [137 mmol/L - 145 mmol/L] (07/01/22) Potassium: 3.9 mmol/L [3.5 mmol/L - 4.9 mmol/L] (07/01/22) Chloride: 104 mmol/L [98 mmol/L - 107 mmol/L] (07/01/22) CO2: 29 mmol/L [22 mmol/L - 30 mmol/L] (07/01/22) BUN: 13 mg/dL [9 mg/dL - 20 mg/dL] (07/01/22) Creatinine: 0.8 mg/dL [0.7 mg/dL - 1.3 mg/dL] (07/01/22) ?? CMP Latest Results BUN: 13 mg/dL (07/01/22) Chloride: 104 mmol/L (07/01/22) CO2: 29 mmol/L (07/01/22) Creatinine: 0.8 mg/dL (07/01/22) Potassium: 3.9 mmol/L (07/01/22) Sodium: 139 mmol/L (07/01/22) Glucose:??109 mg/dL??High (07/01/22) Protein, Total: 7.5 g/dL (07/01/22) Albumin: 4.1 g/dL (07/01/22) Alk Phos: 63 U/L (07/01/22) AST: 32 U/L (07/01/22) ALT: 26 U/L (07/01/22) Bilirubin, Total: 0.8 mg/dL (07/01/22) ?? PT/INR Latest Results INR: 1.1 (07/01/22 05:19:00) Protime (PT): 14.4 sec (07/01/22 05:19:00) ?? NT ProBNP NT-proBNP: 265 pg/mL (07/01/22) ?? TSH/T4/T3 TSH, Highly Sensitive: 3.7 uIU/mL (07/01/22) ?? I personally reviewed the laboratory data which shows a sodium of 139, potassium 3.9, creatinine0.8, hemoglobin 13.6, white blood cell count 8.3. Assessment/Plan #Coronary artery disease #Fatigue #Shortness of breath with exertion -The patient has a history of multiple stents and multiple coronary arteries??and his last cardiac cath was performed in May 2020??which showed mild to moderate disease of the left main coronaryartery??as well as mild in- stent restenosis in multiple arteries -He now has??had shortness of breath with exertion as well as fatigue; he denies any chest pain; this all occurred after he picked up a heavy bag and moved it across the room -He has a history of at least 14 stents??and he does note that he has had similar symptoms prior toneeding stents before in the past??and thus, I would like to proceed with left heart catheterization??which will be performed tomorrow ?? #Chronic systolic heart failure -His last echocardiogram showed an ejection fraction of approximately 46%; he is currently on Bystolic as well as Lasix -He appears euvolemic on exam today and??his NT proBNP was noted to be normal ?? #HTN -His blood pressure is well controlled today on his current dose of Bystolic and Lasix ?? #HLD -On Crestor 20 mg daily Problem List/Past Medical History Ongoing Cardiomyopathy, ischemic Chest Pain/Angina Chronic systolic heart failure Congestive heart failure (CHF) Coronary artery disease Coronary Artery Disease Dizziness Heart attack Hematuria Hyperlipidemia Hypertension Shortness of Breath PatientStated Hypothyroidism Historical heart attack High Cholesterol Hypertension Pneumonia Stent Insertion Procedure/Surgical History ???Cardiac catheterization (06/25/2007)???Cardiac catheterization (05/21/2006)???Cardiac catheterization (10/23/2004)???Cardiac catheterization (11/08/2003)???Cardiac catheterization procedure (12/29/1997)???cardiac stints x14???cholecystectomy 03/2011 Medications Inpatient aspirin, 81 mg= 1 tablet(s), Oral, daily clopidogrel, 75 mg= 1 tablet(s), Oral, daily Heparin (SubQ Dosing), 5000 unit(s)= 1 mL, SubQ, [id number] Lasix, 40 mg= 1 tablet(s), Oral, daily levothyroxine, 50 mcg= 1 tablet(s), Oral, daily before breakfast melatonin, 3 mg= 1 tablet(s), Oral, qhs, PRN MiraLax oral powder for reconstitution, 1 packet(s), Oral, daily, PRN morphine, 2 mg= 1 mL, IV SLOW Push, [id number], PRN Narcan, 0.2 mg= 0.5 mL, IV SLOW Push, q2min, PRN nebivolol, 5 mg= 1 tablet(s), Oral, qhs nitroglycerin, 0.4 mg= 1 tablet(s), Sublingual, as needed, PRN ondansetron, 4 mg= 2 mL, IV SLOW Push, [id number], PRN Pepcid, 20 mg= 1 tablet(s), Oral, [id number] rosuvastatin, 20 mg= 1 tablet(s), Oral, qhs Tylenol, 650 mg= 2 tablet(s), Oral, [id number], PRN Home aspirin 81 mg oral enteric coated tablet, 81 mg= 1 tablet(s), Oral, daily cholecalciferol, 2000 IU, Oral, daily Chondroitin-Glucosamine, 2 capsule(s), Oral, qhs clopidogrel 75 mg oral tablet, 75 mg= 1 tablet(s), Oral, daily Lasix 40 mg oral tablet, 40 mg= 1 tablet(s), Oral, daily levothyroxine 50 mcg (0.05 mg) oral tablet, 50 mcg= 1 tablet(s), Oral, daily before breakfast Multivitamin oral tablet, 1 tablet(s), Oral, daily Nebivolol 5 mg oral tablet, 5 mg= 1 tablet(s), Oral, qhs nitroglycerin 0.4 mg sublingual tablet, 0.4 mg= 1 tablet(s), Sublingual, as needed, PRN rosuvastatin 20 mg oral capsule, 20 mg= 1 capsule(s), Oral, qhs Vitamin C 500 mg oral tablet, 500 mg= 1 tablet(s), Oral, daily Zinc, 30 mg, Oral, daily Allergies NKA Social History Smoking Status - 10/23/2016 Former smoker Alcohol Former alcohol user, 28 years old, 04/18/2022 Employment/School Retired, 12/28/2020 Exercise Exercise frequency: Daily. Exercise type: Walking., 12/28/2020 Other Substance Abuse Never drug user, 04/18/2022 Tobacco Former smoker, Smokeless Tobacco use: Never. N/A Cessation Counseling. Started age 13.0 Years. Stopped age 28 Years., 04/18/2022 Family History ?Mother ?Positive ?Heart Disease ?Father ?Positive ?Heart Disease ?Sister ?Positive ?Heart Disease ?Brother ?Positive ?Heart Disease ? Medication list reviewed and reconciled with patient Voice to Text Technology Disclaimer This note may contain text inserted via Dragon or other voice to text assistive technology and mineral economist, variances may occur. [Electronically Signed on 07/01/2022 11:54 AM CDT] Kan MD Cristopher History and physical note * Mahogany Roman MD: SIGN, MODIFY Dorita Caruso MD Resident: PERFORM, MODIFY Dorita Caruso MD Resident: MODIFY, SIGN Dorita Caruso MD Resident: SIGN, VERIFY Dorita Caruso MD Resident: VERIFY Event Display: History and Physical Authored Date: [id number] Patient: MITCHELL RODRIGUEZ Age: 72 years Sex: Male : 1950 Associated Diagnoses: None Author: Dorita Caruso MD Resident Basic Information Admit information: Acute care admission on 07/01/2022, Admission Day 1 . Admitting Physician: Mahogany Roman MD. Source of history: Self, Medical record. Present at bedside: Medical personnel. Referral source: Self. History limitation: None. 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 He walks 30 minutesa day. 2 days ago he was picking up her dog food bag weighing 50 pounds and had sudden onset of shortness of breath that lasted 30 minutes. Since then he has been feeling extremely exhausted which isnew for him. He reports that he has to sit down after walking from the garage to the building whichis new for him. He denied any chest pain, palpitations, lightheadedness. He has some mild abdominaldiscomfort versus nausea but no vomiting. He also has a brief nasal discharge and upper respiratorysymptoms on the day when he lifted the bed. No fevers or chills, sick contacts. No recent history of COVID infection. No history of blood clots in the past. He follows for cardiology. On presenting to the ED he is afebrile 36, pulse TN, RR 15, blood pressure 131/76 mmHg with O2 sat 98% on room air. White count 8.3, hemoglobin 13.6, rate 178, electrolytes within range, BUN 13, creatinine 0.8, blood sugar 109. LFTs within range. NT proBNP 265, troponin negative. 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 He was admitted for further management and cardiology was consulted.. Review of Systems Constitutional: Weakness, Fatigue, No fever, No chills, No sweats, No loss of appetite. Eye: No recent visual problem, No visual disturbances. Ear/Nose/Mouth/Throat: Nasal congestion, No decreased hearing, No sore throat. Respiratory: Shortness of breath, No cough. Cardiovascular: No chest pain, No palpitations, No syncope. Gastrointestinal: No nausea, No vomiting, No diarrhea, No constipation, No abdominal pain. Genitourinary: No dysuria. Hematology/Lymphatics: No bruising tendency, No bleeding tendency. Endocrine: No excessive thirst, No polyuria. Immunologic: Negative. Musculoskeletal: No back pain, No joint pain, No decreased range of motion, No trauma. Integumentary: No rash. Neurologic: Alert and oriented X4, No confusion, No headache. Psychiatric: Negative. ROS reviewed as documented in chart Health Status Allergies: Allergies (1) Active Reaction NKA None Documented Current medications: Home Medications: ascorbic acid: 500 mg = 1 tablet(s), Oral, daily aspirin: 81 mg = 1 tablet(s), Oral, daily cholecalciferol: 2000 IU, Oral, daily chondroitin-glucosamine: 2 capsule(s), Oral, qhs clopidogrel: 75 mg = 1 tablet(s), Oral, daily furosemide: 40 mg = 1 tablet(s), Oral, daily levothyroxine: 50 mcg = 1 tablet(s), Oral, daily before breakfast multivitamin: 1 tablet(s), Oral, daily nebivolol: 5 mg = 1 tablet(s), Oral, qhs nitroglycerin: 0.4 mg = 1 tablet(s), Sublingual, as needed, PRN (chest pain), not to exceed 3 doses/15 min--if pain persists, seek medical attention rosuvastatin: 20 mg = 1 capsule(s), Oral, qhs zinc sulfate: 30 mg, Oral, daily Problem list: Active Problems (9) Cardiomyopathy, ischemic Chronic systolic heart failure Congestive heart failure (CHF) Coronary artery disease Heart attack Hematuria Hyperlipidemia Hypertension Hypothyroidism Histories Past Medical History: Resolved Stent Insertion: Onset in 2007 at 58 years. Resolved. Hypertension: Onset in 1998 at 48 years. Resolved. High Cholesterol: Onset in 1998 at 48 years. Resolved. heart attack: Onset in 1997 at 48 years. Resolved. Pneumonia: Onset in 1959 at 10 years. Resolved. Family History: Heart Disease Mother Father Sister Brother Procedure history: Cardiac catheterization ([id number]) on 06/25/2007 at 57 Years. Comments: 07/04/2009 12:34 Devi Arita RN PCI diagonal, PCI LAD Cardiac catheterization ([id number]) on 05/21/2006 at 56 Years. Cardiac catheterization ([id number]) on 10/23/2004 at 54 Years. Comments: 07/04/2009 12:32 Devi Arita RN PTCA to OM Cardiac catheterization ([id number]) on 11/08/2003 at 53 Years. Comments: 07/04/2009 12:31 Devi Arita RN PTCA with 2 stents to LAD Cardiac catheterization procedure ([id number]) on 12/29/1997 at 47 Years. Comments: 07/04/2009 12:30 Devi Arita RN 100% LAD, stented cardiac stints x14. Comments: 09/30/2011 05:31 CDT - Archana Kwaku Flowers RN last stint 03/09 cholecystectomy 03/2011. Social History Social & Psychosocial Habits Alcohol 04/18/2022 Use: Former alcohol user Last Use 28 years old Employment/School 12/28/2020 Status: Retired Exercise 12/28/2020 Times per week: Daily Exercise type: Walking Other Comment: Patient is and has 2 children. - 12/28/2020 14:14 - Saima Anne LAPPER Substance Abuse 04/18/2022 Use: Never drug user Tobacco 04/18/2022 Smoking Tobacco Use: Former smoker Smokeless Tobacco use: Never Tobacco Cessation Counseling Requested N/A Started at age: 15.0 Years Stopped at age: 28 Years . Physical Examination Vitals Temp BP Pulse RR SpO2 FIO2 Date Wt(kg) Wt(lb) 07/01 09:16 35.8 130/81 66 16 98 RA 07/01 90.6 199 07/01 08:00 ---- 111/71 --- 15 96 RA 07/01 91.5 201 07/01 07:45 ---- 133/91 --- 19 95 RA 07/01 07:30 ---- 142/91 --- 14 94 RA 04 07:15 ---- 137/90 --- 14 95 RA 24 Hr Tmax: 36.0 at 07/01 02:13 36 Hr Tmax: 36.0 at 07/01 02:13 Vital Signs are the last 5 in the past 48 hours. Weights display the last 5 within 7 days. Initial Wt: 07/01 91.5 kg 201 lb Measurements from flowsheet : Measurements 07/01/2022 09:18 CDT Height 185 cm Weight 90.6 kg Body Mass Index 26.47 kg/m2 07/01/2022 02:13 CDT Height 185 cm Weight 91.5 kg Weight Source Actual Body Mass Index 26.73 kg/m2 General: Alert and oriented, No acute distress. HENT: Normocephalic, Oral mucosa is moist. Eye: Extraocular movements are intact, Normal conjunctiva. Neck: Supple, No jugular venous distention. Respiratory: Lungs are clear to auscultation, Respirations are non-labored, Breath sounds are equal, Symmetrical chest wall expansion. Cardiovascular: Normal rate, Regular rhythm, No murmur, No edema. Gastrointestinal: Soft, Non-tender, Non-distended, Normal bowel sounds. Integumentary: Warm, Dry, Intact. Neurologic: Alert, Oriented. Cognition and Speech: Oriented, Speech clear and coherent. Psychiatric: Cooperative, Appropriate mood & affect. Review / Management Results review: Labs (Last four charted values) WBC 8.3 (JUL 01) Hgb 13.6 (JUL 01) Hct 40.1 (JUL 01) Plt 178 (JUL 01) Na 139 (JUL 01) K 3.9 (JUL 01) CO2 29 (JUL 01) Cl 104 (JUL 01) Cr 0.8 (JUL 01) BUN 13 (JUL 01) Glucose Random H 109 (JUL 01) Mg 2.1 (JUL 01) Ca 8.7 (JUL 01) INR 1.1 (JUL 01) . Chest x-ray results Include last 36 hours of Radiology interpretations COMPLETED RADIOLOGY IMAGING STUDIES: No Imaging Results in the last 36 hours Radiology results: Include last 36 hours of Radiology interpretations COMPLETED RADIOLOGY IMAGING STUDIES: No Imaging Results in the last 36 hours. Impression and Plan Diagnosis Human metapneumovirus infection Generalized fatigue History of CAD s/p multiple PCI's History of HFrEF No new EKG changes, troponins negative Echocardiogram result pending Supportive therapy for pneumonia metapneumovirus We will check Pro-Sanchez for underlying bacterial pneumonia As patient had similar symptoms during previous stents, cardiology planning a cath in the a.m. On aspirin and Plavix We will continue home dose of Lasix and nebivolol Hypertension On nebivolol Hypothyroidism We will continue levothyroxine Hyperlipidemia Continue rosuvastatin Miscellaneous Diet -Heart healthy,Preoperative midnight in anticipation of cardiac cath Activity -ambulate as tolerated DVT prophylaxis -subcu heparin GI prophylaxis -Pepcid CODE STATUS - LEVEL I Plan of care discussed with supervising attending physician. SeoPult software used for dictation, mineral economist variances may occur.. [Electronically Signed on 07/01/2022 04:46 PM CDT] Dorita Caruso MD Resident * Mahogany Roman MD: PERFORM Event Display: History and Physical Authored Date: Patient was seen and examined independently, discussed management and plan with the resident and agrees with above assessment and plan. Lab as well as chart reviewed. Consultation note reviewed. During my time of examination, patient was laying at bed, looks comfortable without any acute distress. Patient told me that the main reason he came to the hospital is significant fatigue which was not improving. And mostly with exertion. Denied any chest pain or shortness of breath. Patient was tested positive for rhinovirus. Patient was evaluated by cardiology. Significant heart history with more than 10 stent placement. Patient has previously similar symptoms ended up needing a stent. Plan to do cardiac cath next day. Date of service 07/01/2022 [Electronically Signed on 07/02/2022 06:21 AM CDT] Mahogany Roman MD Nurse Emergency department Note * Mai Troy RN: PERFORM Event Display: ED Note-Nursing Authored Date: [id number] ED Patient Rounds Entered On: 07/01/2022 05:44 CDT Performed On: 07/01/2022 05:44 CDT by Mai Troy RN Visual Check Visual Check Performed : Yes Interventions Offered : Patient sleeping Mai Troy RN - 07/01/2022 05:44 CDT * Mai Troy RN: PERFORM Event Display: ED Note-Nursing Authored Date: [id number] ED Document Historical Medications Entered On: 07/01/2022 05:28 CDT Performed On: 07/01/2022 05:28 CDT by Mai Troy RN ED Medication List Medication List (As Of: 07/01/2022 05:28 CDT) Prescription/Discharge Order rosuvastatin : rosuvastatin ; Status: Prescribed ; Ordered As Mnemonic: rosuvastatin 20 mg oral tablet ; Simple Display Line: See Instructions, TAKE 1 TABLET BY MOUTH AT BEDTIME, 90 tablet(s), 3 Refill(s) ; Ordering Provider: Kan Nicholas MD; Catalog Code: rosuvastatin ; Order Dt/Tm: 03/07/2022 13:40 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 clopidogrel : clopidogrel ; Status: Prescribed ; Ordered As Mnemonic: clopidogrel 75 mg oral tablet ; Simple Display Line: 75 mg, 1 tablet(s), Oral, daily, for 90 day(s), 90 tablet(s), 3 Refill(s) ; Ordering Provider: Kan Nicholas MD; Catalog Code: clopidogrel ; Order Dt/Tm: 03/07/2022 13:39 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 furosemide : furosemide ; Status: Prescribed ; Ordered As Mnemonic: furosemide 40 mg oral tablet ; Simple Display Line: 40 mg, 1 tablet(s), Oral, daily, for 90 day(s), PRN: swelling, 90 tablet(s), 3 Refill(s) ;Ordering Provider: Kan Nicholas MD; Catalog Code: furosemide ; Order Dt/Tm: 03/07/2022 13:39 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 nebivolol : nebivolol ; Status: Prescribed ; Ordered As Mnemonic: Nebivolol 5 mg oral tablet ; Simple DisplayLine: See Instructions, TAKE 1 TABLET BY MOUTH ONCE DAILY AT BEDTIME, 90 tablet(s), 3 Refill(s) ; Ordering Provider: Kan Nicholas MD; Catalog Code: nebivolol ; Order Dt/Tm: 03/07/2022 13:38 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 Home Meds ascorbic acid : ascorbic acid ; Status: Documented ; Ordered As Mnemonic: Vitamin C 500 mg oral tablet ; Simple Display Line: 500 mg, 1 tablet(s), Oral, daily, 30 tablet(s), 0 Refill(s) ; Catalog Code: ascorbic acid ; Order Dt/Tm: 12/28/2020 14:09 CDT cholecalciferol : cholecalciferol ; Status: Documented ; Ordered As Mnemonic: cholecalciferol ; Simple Display Line: 2000 IU, Oral, daily, 0 Refill(s) ; Catalog Code: cholecalciferol ; Order Dt/Tm: 12/28/2020 14:09 CDT multivitamin : multivitamin ; Status: Documented ; Ordered As Mnemonic: Multivitamin oral tablet ; Simple Display Line: 1 tablet(s), Oral, daily, 30 tablet(s), 0 Refill(s) ; Catalog Code: multivitamin ; Order Dt/Tm: 12/28/2020 14:09 CDT zinc sulfate : zinc sulfate ; Status: Documented ; Ordered As Mnemonic: Zinc ; Simple Display Line: 30 mg, Oral,daily, 0 Refill(s) ; Catalog Code: zinc sulfate ; Order Dt/Tm: 12/28/2020 14:09 CDT levothyroxine : levothyroxine ; Status: Documented ; Ordered As Mnemonic: levothyroxine 50 mcg (0.05 mg) oral tablet ; Simple Display Line: 50 mcg, 1 tablet(s), Oral, daily before breakfast, 30 tablet(s), 0 Refill(s) ; Catalog Code: levothyroxine ; Order Dt/Tm: 05/23/2020 10:08 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 nitroglycerin : nitroglycerin ; Status: Documented ; Ordered As Mnemonic: nitroglycerin 0.4 mg sublingual tablet ; Simple Display Line: 0.4 mg, 1 tablet(s), Sublingual, as needed, not to exceed 3 doses/15 min--if pain persists, seek medical attention, PRN: chest pain, 1 bottle, 0 Refill(s) ; Catalog Code: nitroglycerin ; Order Dt/Tm: 05/23/2020 10:08 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 chondroitin-glucosamine : chondroitin-glucosamine ; Status: Documented ; Ordered As Mnemonic: Chondroitin-Glucosamine ; Simple Display Line: 2 capsule(s), Oral, qhs, 0 Refill(s) ; Catalog Code: chondroitin-glucosamine ; Order Dt/Tm: 11/06/2018 02:11 CDT aspirin : aspirin ; Status: Documented ; Ordered As Mnemonic: aspirin 81 mg oral enteric coated tablet ; Simple Display Line: 81 mg, 1 tablet(s), Oral, daily, 0 Refill(s) ; Catalog Code: aspirin ; Order Dt/Tm: 10/23/2016 05:56 CDT * Mitchell Alcantara RN: PERFORM Event Display: ED Note-Nursing Authored Date: [id number] ED Triage Entered On: 07/01/2022 02:16 CDT Performed On: 07/01/2022 02:13 CDT by Mitchell Alcantara RN Reason For Visit Chief Complaint Description : present with intermitent agina since friday , r shoulder pain , genralized fatigue , the fatigue is the most concernint opatient his pain is low Reg STK Was Last Known Well Date and Time Witnessed : N/A ED Allergies/Home Meds : Document assessment Workman's Comp : No Temperature Temporal Artery : 36.0 DegC(Converted to: 96.8 DegF) Respiratory Rate : 15 br/min Peripheral Pulse Rate : 63 bpm Systolic Blood Pressure : 131 mm Hg Diastolic Blood Pressure : 76 mm Hg Oxygen Saturation : 98 % Height : 185 cm(Converted to: 6 ft 1 inch(es)) Weight Source : Actual Weight : 91.5 kg(Converted to: 201.723 pound(s)) ED Oxygen Therapy Mode of Arrival : Room air Body Mass Index : 26.73 kg/m2 Mitchell Alcantara RN - 07/01/2022 02:13 CDT DCP GENERIC CODE Tracking Acuity : 3 - Urgent Tracking Group : Emergency Department Mitchell Alcantara RN - 07/01/2022 02:13 CDT ANUJ Calculator : ANUJ Calculator Primary Pain Intensity : 2 Mitchell Alcantara RN - 07/01/2022 02:13 CDT (As Of: 07/01/2022 02:16 CDT) Problems(Active) Cardiomyopathy, ischemic (ICD-9-CM :414.8 ) Name of Problem: Cardiomyopathy, ischemic ; Recorder: Kwaku Magaña RN; Confirmation: Confirmed ; Classification: Medical ; Code: 414.8 ; Contributor System: PowerChart ; Last Updated: 09/30/2011 05:35 CDT ; Life Cycle Date: 09/30/2011 ; Life Cycle Status: Active ; Vocabulary: ICD-9-CM ; Comments: 09/30/2011 05:35 - Kwaku Magaña RN ejection fraction 25% Chronic systolic heart failure (SNOMED CT :6171946474 ) Name of Problem: Chronic systolic heart failure ; Recorder: Kan Nicholas MD; Confirmation: Confirmed ; Classification: Medical ; Code: 2068735186 ; Contributor System: PowerChart ; Last Updated: 12/28/2020 14:18 CDT ; Life Cycle Date: 12/28/2020 ; Life Cycle Status: Active ; Responsible Provider: Kan Nicholas MD; Vocabulary: SNOMED CT Congestive heart failure (CHF) (SNOMED CT :582661410 ) Name of Problem: Congestive heart failure (CHF) ; Recorder: Cherry Lima RN; Confirmation: Confirmed ; Classification: Medical ; Code: 669085971 ; Contributor System: PowerChart ; Last Updated: 10/23/2016 08:14 CDT ; Life Cycle Date: 09/30/2011 ; Life Cycle Status: Active ; Vocabulary: SNOMED CT Coronary artery disease (SNOMED CT :64223994 ) Name of Problem: Coronary artery disease ; Recorder: Kan Nicholas MD; Confirmation: Confirmed ; Classification: Medical ; Code: 28369009 ; Contributor System: PowerChart ; Last Updated: 114:18 CDT ; Life Cycle Date: 12/28/2020 ; Life Cycle Status: Active ; Responsible Provider: Kan Nicholas MD; Vocabulary: SNOMED CT Heart attack (SNOMED CT :31004336 ) Name of Problem: Heart attack ; Recorder: Kwaku Magaña RN; Confirmation: Confirmed ; Classification: Medical ; Code: 72529268 ; Contributor System: PowerChart ; Last Updated: 11/06/2018 01:42 CDT ;Life Cycle Date: 11/06/2018 ; Life Cycle Status: Active ; Vocabulary: SNOMED CT Hematuria (SNOMED CT :043178435 ) Name of Problem: Hematuria ; Recorder: Kan Nicholas MD; Confirmation: Confirmed ; Classification: Medical ; Code: 638444928 ; Contributor System: PowerChart ; Last Updated: 04/18/2021 12:12 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 ; Life Cycle Date: 04/18/2021 ; Life Cycle Status: Active ; Responsible Provider: Kan Nicholas MD; Voc abulary: SNOMED CT Hyperlipidemia (SNOMED CT :77151955 ) Name of Problem: Hyperlipidemia ; Recorder: Kan Nicholas MD; Confirmation: Confirmed ; Classification: Medical ; Code: 68893039 ; Contributor System: PowerChart ; Last Updated: 06/09/2022 15:44 CDT; Life Cycle Date: 06/09/2022 ; Life Cycle Status: Active ; Responsible Provider: Kan Nicholas MD; Vocabulary: SNOMED CT Hypertension (SNOMED CT :7598067298 ) Name of Problem: Hypertension ; Recorder: Kan Nicholas MD; Confirmation: Confirmed ; Classification: Medical ; Code: 4379158601 ; Contributor System: PowerChart ; Last Updated: 12/28/2020 14:18 CDT; Life Cycle Date: 12/28/2020 ; Life Cycle Status: Active ; Responsible Provider: Kan Nicholas MD; Vocabulary: SNOMED CT Hypothyroidism (SNOMED CT :79705129 ) Name of Problem: Hypothyroidism ; Recorder: Fern Sullivan RN; Confirmation: Confirmed ; Classification: Patient Stated ; Code: 99553125 ; Contributor System: Kira [employer] ; Last Updated: 12/22/2019 09:16 CDT ; Life Cycle Date: 12/22/2019 ; Life Cycle Status: Active ; Vocabulary: SNOMED CT Diagnoses(Active) Weakness or fatigue Date: 07/01/2022 ; Diagnosis Type: Reason For Visit ; Confirmation: Confirmed ; Clinical Dx: Weakness or fatigue ; Classification: Medical ; Clinical Service: Emergency medicine ; Code: PNED ; Probability: 0 ; Diagnosis Code: [id number] Allergies (As Of: 07/01/2022 02:16 CDT) Allergies (Active) NKA Estimated Onset Date: Unspecified ; Created By: Maureen Cullen RN; Reaction Status: Active ; Category: Drug ; Substance: NKA ; Type: Allergy ; Updated By: Maureen Cullen RN; Reviewed Date: 07/01/2022 02:13 CDT Medication List (As Of: 07/01/2022 02:16 CDT) Prescription/Discharge Order clopidogrel : clopidogrel ; Status: Prescribed ; Ordered As Mnemonic: clopidogrel 75 mg oral tablet ; Simple Display Line: 75 mg, 1 tablet(s), Oral, daily, for 90 day(s), 90 tablet(s), 3 Refill(s) ; Ordering Provider: Kan Nicholas MD; Catalog Code: clopidogrel ; Order Dt/Tm: 03/07/2022 13:39 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 furosemide : furosemide ; Status: Prescribed ; Ordered As Mnemonic: furosemide 40 mg oral tablet ; Simple Display Line: 40 mg, 1 tablet(s), Oral, daily, for 90 day(s), PRN: swelling, 90 tablet(s), 3 Refill(s) ;Ordering Provider: Kan Nicholas MD; Catalog Code: furosemide ; Order Dt/Tm: 03/07/2022 13:39 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 nebivolol : nebivolol ; Status: Prescribed ; Ordered As Mnemonic: Nebivolol 5 mg oral tablet ; Simple Display Line: See Instructions, TAKE 1 TABLET BY MOUTH ONCE DAILY AT BEDTIME, 90 tablet(s), 3 Refill(s) ; Ordering Provider: Kan Nicholas MD; Catalog Code: nebivolol ; Order Dt/Tm: 03/07/2022 13:38 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 rosuvastatin : rosuvastatin ; Status: Prescribed ; Ordered As Mnemonic: rosuvastatin 20 mg oral tablet ; Simple Display Line: See Instructions, TAKE 1 TABLET BY MOUTH AT BEDTIME, 90 tablet(s), 3 Refill(s) ; Ordering Provider: Kan Nicholas MD; Catalog Code: rosuvastatin ; Order Dt/Tm: 03/07/2022 13:40 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 Home Meds ascorbic acid : ascorbic acid ; Status: Documented ; Ordered As Mnemonic: Vitamin C 500 mg oral tablet ; Simple Display Line: 500 mg, 1 tablet(s), Oral, daily, 30 tablet(s), 0 Refill(s) ; Catalog Code: ascorbic acid ; Order Dt/Tm: 12/28/2020 14:09 CDT aspirin : aspirin ; Status: Documented ; Ordered As Mnemonic: aspirin 81 mg oral enteric coated tablet ; Simple Display Line: 81 mg, 1 tablet(s), Oral, daily, 0 Refill(s) ; Catalog Code: aspirin ; Order Dt/Tm: 10/23/2016 05:56 CDT cholecalciferol : cholecalciferol ; Status: Documented ; Ordered As Mnemonic: cholecalciferol ; Simple Display Line: 2000 IU, Oral, daily, 0 Refill(s) ; Catalog Code: cholecalciferol ; Order Dt/Tm: 12/28/2020 14:09 CDT chondroitin-glucosamine : chondroitin-glucosamine ; Status: Documented ; Ordered As Mnemonic: Chondroitin-Glucosamine ; Simple Display Line: 2 capsule(s), Oral, qhs, 0 Refill(s) ; Catalog Code: chondroitin-glucosamine ; Order Dt/Tm: 11/06/2018 02:11 CDT levothyroxine : levothyroxine ; Status: Documented ; Ordered As Mnemonic: levothyroxine 50 mcg (0.05 mg) oral tablet ; Simple Display Line: 50 mcg, 1 tablet(s), Oral, daily before breakfast, 30 tablet(s), 0 Refill(s) ; Catalog Code: levothyroxine ; Order Dt/Tm: 05/23/2020 10:08 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 multivitamin : multivitamin ; Status: Documented ; Ordered As Mnemonic: Multivitamin oral tablet ; Simple Display Line: 1 tablet(s), Oral, daily, 30 tablet(s), 0 Refill(s) ; Catalog Code: multivitamin ; Order Dt/Tm: 12/28/2020 14:09 CDT nitroglycerin : nitroglycerin ; Status: Documented ; Ordered As Mnemonic: nitroglycerin 0.4 mg sublingual tablet ; Simple Display Line: 0.4 mg, 1 tablet(s), Sublingual, as needed, not to exceed 3 doses/15 min--if pain persists, seek medical attention, PRN: chest pain, 1 bottle, 0 Refill(s) ; Catalog Code: nitroglycerin ; Order Dt/Tm: 05/23/2020 10:08 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 zinc sulfate : zinc sulfate ; Status: Documented ; Ordered As Mnemonic: Zinc ; Simple Display Line: 30 mg, Oral,daily, 0 Refill(s) ; Catalog Code: zinc sulfate ; Order Dt/Tm: 12/28/2020 14:09 CDT General Status : N/A Child/Parent Domestic Concerns : None Chemotherapy Med. Currently Taking : No Little interest/pleasure in doing things? : No Feeling down, depressed, or hopeless? : No Mitchell Alcantara RN - 07/01/2022 02:13 CDT Elopement Risk Assessment Is pt ambulatory or self-mobile in w/c? : Yes Is pt new admit questioning being here? : No Mitchell Alcantara RN - 07/01/2022 02:13 CDT ANUJ ANUJ Level 1 : No ANUJ Level 2 : No ANUJ Level 3 : Many Mitchell Alcantara RN - 07/01/2022 02:13 CDT Severe Sepsis Triage Screening Tool Does the Patient Have Any Three of the Following : None Is the Pt's SBP < 90 or MAP < 65 mmHg? : No Mitchell Alcantara RN - 07/01/2022 02:13 CDT Physician Emergency department Note * Kathy Duran: MODIFY, MODIFY, MODIFY, MODIFY, MODIFY, MODIFY, MODIFY, SIGN, VERIFY, PERFORM, MODIFY, MODIFY, MODIFY, MODIFY, MODIFY Event Display: ED Note-Physician Authored Date: [id number] Patient: MITCHELL RODRIGUEZ Age: 72 years Sex: Male : 1950 Associated Diagnoses: None Author: Kathy Duran Basic Information Vital signs: Vital Signs 07/01/2022 02:13 CDT Temperature Temporal Artery 36.0 DegC Peripheral Pulse Rate 63 bpm Respiratory Rate 15 br/min Systolic Blood Pressure 131 mm Hg Diastolic Blood Pressure 76 mm Hg , Primary Pain Intensity : Primary Pain Intensity 07/01/2022 02:13 CDT Primary Pain Intensity 2 , Measurements 07/01/2022 02:13 CDT Height 185 cm Weight 91.5 kg Weight Source Actual Body Mass Index 26.73 kg/m2 , Oxygen saturation: Basic Oxygen Information 07/01/2022 02:13 CDT Oxygen Saturation 98 % . Time seen: Date & time 07/01/2022 04:39:00. History source: Patient. Additional information:: Chief Complaint from Nursing Triage Note : Chief Complaint Description 07/01/2022 02:13 CDT Chief Complaint Description present with intermitent agina since friday , r shoulder pain , genralized fatigue , the fatigue is the most concernint opatient his pain is low . History of Present Illness The onset was on 06/29/2022. He is a 72-year-old male who picked up a dog food bag weighing about 50 pounds or so and carried into the truck. He started having shortness of breath that lasted about 30 minutes or so and it resolved. He did not have any chest pain but had some right shoulder pain. Since then he has been feeling exhausted, no energy and feels fatigued. The symptom has persisted. He did have some left wrist pain, that lasted about 8-10 hours. He did not have any chest pain, tightness, heaviness or any chest symptoms other than shortness of breath. He was nauseated. No vomiting. Denies any palpitation, lightheadedness, syncope or near syncope. Denies any cold and clammy feeling orsweating. Denies any fever. He did have some cough with scant white phlegm. Denies any headache. Notingling, numbness or weakness involving the face, arms or legs. No hemianesthesia or hemiparesis. No diplopia, dysphagia or dysarthria. He has history of coronary artery disease and has had coronarystents in the past. He does have cardiomyopathy with ejection fraction of 40% in 2020, as noted below. Admitted 05/21/2020. Discharged 05/23/2020. PMH of coronary artery disease with a total of 14 stents placed (last stent was 2 years ago), PAD, HTN, CHF with diastolic disfunction. He went to [facility] where he was found to have a small non-ST elevation myocardial infarction. Thallium stress test was done and was reported to be abnormal, Cardiac cath done on 05/22 and showed Moderately decreased LV contractility, LVEF 40%, LVEDP 16 mmHg, Mid RCA 30%, Distal LM 40%, Patent stents in LAD & LCX, Plaque in RCA, LCX & LAD and IFR across LM: 0.94, not hemodynamically significant. The patient was discharged to be followed up by his marketing underwriter as outpatient and possibly undergo Cardiac Cath. The patient comes in to the hospital due to development of nausea that was similar to the one he presented with his inferior AK. In the ER he was found to be hemodynamically stable with negative troponins and EKG nonsuggestive of any acute ischemia. 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 The decision was to discharge to continue on medical management and FU by his marketing underwriter. Review of Systems Constitutional symptoms: Weakness, fatigue no fever, no sweats. Respiratory symptoms: Shortness of breath, cough, no hemoptysis. Cardiovascular symptoms: no chest pain Gastrointestinal symptoms: Nausea no vomiting, no diarrhea. Neurologic symptoms: no headache no altered level of consciousness, no numbness, no tingling, no weakness. Health Status Allergies: Allergic Reactions (Selected) NKA. Past Medical/ Family/ Social History Medical history Problem List from Nurse's Notes All Problems (Selected) Heart attack / SNOMED CT 01440949 / Confirmed Hypothyroidism / SNOMED CT 82578705 / Confirmed Hypertension / SNOMED CT 6496534697 / Confirmed Hyperlipidemia / SNOMED CT 89394600 / Confirmed Coronary artery disease / SNOMED CT 75502325 / Confirmed Congestive heart failure (CHF) / SNOMED CT 812462466 / Confirmed Chronic systolic heart failure / SNOMED CT 9369879933 / Confirmed Cardiomyopathy, ischemic / ICD-9-CM 414.8 / Confirmed Hematuria / SNOMED CT 301791003 / Confirmed. Surgical history: Procedure History from Nurses Notes Cardiac catheterization ([id number]) on 06/25/2007 at 57 Years. Comments: 07/04/2009 12:34 Devi Arita RN PCI diagonal, PCI LAD Cardiac catheterization ([id number]) on 05/21/2006 at 56 Years. Cardiac catheterization ([id number]) on 10/23/2004 at 54 Years. Comments: 07/04/2009 12:32 Devi Arita RN PTCA to OM Cardiac catheterization ([id number]) on 11/08/2003 at 53 Years. Comments: 07/04/2009 12:31 Devi Arita RN PTCA with 2 stents to LAD Cardiac catheterization procedure ([id number]) on 12/29/1997 at 47 Years. Comments: 07/04/2009 12:30 Devi Arita RN 100% LAD, stented cardiac stints x14. Comments: 09/30/2011 05:31 Kwaku Davis RN last stint 03/09.. Family history: Family History from Nurse's Notes Heart Disease Mother Father Sister Brother . Social history: Social History from Nurses Notes Alcohol Details: Former alcohol user, 28 years old Employment/School Details: Retired Exercise Details: Exercise frequency: Daily. Exercise type: Walking. Other Comment(s): Patient is and has 2 children. Substance Abuse Details: Never drug user Tobacco Details: Former smoker, Smokeless Tobacco use: Never. N/A Cessation Counseling. Started age 15.0 Years. Stopped age 28 Years. . Physical Examination Vital signs: Vital Signs 07/01/2022 02:13 CDT Temperature Temporal Artery 36.0 DegC Peripheral Pulse Rate 63 bpm Respiratory Rate 15 br/min Systolic Blood Pressure 131 mm Hg Diastolic Blood Pressure 76 mm Hg , Oxygen saturation Basic Oxygen Information 07/01/2022 02:13 CDT Oxygen Saturation 98 % . General: Alert. no acute distress. Skin: Warm. dry. Eye: Pupils are equal, round and reactive to light. extraocular movements are intact. Ears, nose, mouth and throat: Oral mucosa moist Neck: Supple. no JVD. Cardiovascular: Regular rate and rhythm. No murmur. Normal peripheral perfusion. Respiratory: Lungs are clear to auscultation. respirations are non-labored. Gastrointestinal: Soft. Nontender. Neurological: Alert and oriented to person, place, time, and situation. No focal neurological deficit observed. Psychiatric: Cooperative Medical Decision Making Rationale Patient presents with developing shortness of breath when he carried heavy bag of dog food on 06/29/2022. The shortness of breath lasted about 30 minutes or so and resolved. No chest pain with that. However, he has been fatigued since then. This has been getting worse and he is concerned about his heart. He has history of coronary artery disease and has required stent placement.I will get an EKG, I will check a chest x-ray. He has history of COVID-19 infection in the past, this will be rechecked. Chest x-ray will be done to rule out pneumonia. Clinically, patient does not look anemic. It is unlikely that he has electrolyte problems as a cause of his symptoms. Electrocardiogram: Time 07/01/2022 05:02:00, rate 56, normal sinus rhythm, Right bundle branch block. Left anterior hemiblock. Premature ventricular contractions. No acute ST-T changes, Preliminary interpretation by me. Results review: Lab results : Lab View 07/01/2022 05:22 CDT Troponin-I (POC-iSTAT) 0.00 ng/mL 07/01/2022 05:19 CDT WBC 8.3 K/uL Hemoglobin 13.6 g/dL Hematocrit 40.1 % Platelet 178 K/uL Immature Gran % 0.5 % Neutro % 71 % INR 1.1 Sodium 139 mmol/L Potassium 3.9 mmol/L Chloride 104 mmol/L CO2 29 mmol/L Anion Gap 6 mmol/L L BUN 13 mg/dL Creatinine 0.8 mg/dL Glucose 109 mg/dL H Calcium 8.7 mg/dL Protein, Total 7.5 g/dL Albumin 4.1 g/dL Alk Phos 63 U/L Bilirubin, Total 0.8 mg/dL AST 32 U/L ALT 26 U/L eGFR(4vMDRD) >60 mL/min/1.73m2 eCrCl(C-Gault) 1.2 mL/min/kg Magnesium 2.1 mg/dL NT-proBNP 265 pg/mL SARS-CoV-2 (COVID-19) RNA Negative . Chest X-Ray: Bilateral basilar infiltrate/bronchovascular crowding, poor inspiration, Preliminary interpretation by me; x-ray will be reviewed by radiologist. Reexamination/ Reevaluation Re-examination/Re-evaluation: Course No chest pain. Essentially unchanged. No shortness of breath. He is laboratory findings were discussed with the patient. Negative troponin. Procedure Critical care services delivered? No Impression and Plan Diagnosis History of coronary artery disease : [id number]-GS Z86.79, Discharge, Medical Fatigue : UVB19-UA R53.83, Discharge, Medical Dyspnea : BIU19-IO R06.00, Discharge, Medical Calls-Consults - 07/01/2022 06:00:00 , Marylin Schneider MD, industrial renderer, hospitalist, Message sent through [employer]. Discharge plan Condition: Stable. Admit: To Observation Telemetry Unit, Holding orders written, Consultation from Dr. Nicholas requested. Notes: I dictate using [employer] software. Fish Culturist variances may occur.. [Electronically Signed on 07/01/2022 06:51 AM CDT] Edwar Duran M.D. XR Chest Single view * Pk Sher M.D.: VERIFY, VERIFY, PERFORM Event Display: Interpretation: Authored Date: [id number] EXAM: CHEST SINGLE VIEW HISTORY: Chest Pain FINDINGS: Single view chest. Comparison June 09, 2020 Decreased lung volumes with bibasilar atelectasis. No large pleural effusion or pneumothorax. Cardiac size is enlarged but stable. IMPRESSION: Decreased lung volumes with bibasilar atelectasis. . Dictating Physician: Pk Sher M.D. Releasing Physician: Pk Sher M.D. Signature Electronically Authorized Authorized Date/Time: 01-JUL-2022 12:57 pm Patient Care team information Care Team Personnel Name: Candida Ventura Julisa Gan [address] Scientist Position: OP Seafood Harvester Rd Scientist Member Role: Seafood Harvester Name: Kan Nicholas MD Position: Physician - Cardiology Member Role: Specialist Physician Address: Address: [facility] [address] [place] [address] Name: Nikky Reyes M.D. Position: KARY FAX ONLY - MD NOT ON STAFF Member Role: Primary Care Physician Address: Address: [address] [place] [id number] [place] Name: Rosanne Santana M.D. Position: CPOE PowerNote Physician Member Role: Carbon Paste Mixer Operator Address: Address: [address] [place] [address] Drive [address] [place] [address] [place] Name: Arun Obrien Seafood Harvester Position: OP Seafood Harvester [address] Scientist Member Role: Seafood Harvester Name: Karen Parra MERCURY PURIFIER Position: AMB DIRECTOR OF REGIONAL SALES/PA Member Role: Nurse Practitioner Address: Address: [address] [place] [address] Dr [address] [place] [address] [place] Name: Smith Moran RN Position: P4 ED Nurse Member Role: ED Nurse Name: Kathy Duran Position: CPOE ED Physician Member Role: Ordering Physician Address: Address: [address] Emergency Room [place], [place] [address]- Care Team Related Persons Name: GLADIS RODRIGUEZ Address: [address], [id number]
--- OUTSIDE RECORDS SUMMARY | 2024-04-12 11:24 | XMS_ITS | Continuity of Care Document ---
Author Organization [facility] Address [address] [place] [id number] Care Team Providers Care Imaging Technician Name Role Phone Amy Kimniki Primary Care Physician Encounter [facility] Financial Number [id number] Date(s): 01/14/24 - 01/14/24 [facility] [address] [id number] Encounter Diagnosis Chronic systolic heart failure(Discharge Diagnosis) - 01/14/24 Coronary artery disease(Discharge Diagnosis) - 01/14/24 Hyperlipidemia(Discharge Diagnosis) - 01/14/24 Hypertension(Discharge Diagnosis) - 01/14/24 Discharge Disposition: Home or Self Care Attending Physician: Kan Nicholas MD Allergies, Adverse Reactions, Alerts No Known Allergies Assessment and Plan Future Appointments Appointment Date:07/22/2024 01:30:00 PM Scheduled Provider:Kan Nicholas MD Location:[facility] App[facility] Type:[facility] EP Established Patient Medications aspirin 81 [...] Oral, daily, 90 tablet(s), Tablet(s), 3, 3, Print Requisition Start Date: 07/23/22 Stop Date: 07/18/23 Status: Ordered Entresto 24 mg-26 mg oral tablet 1 tablet(s), Oral, bid, 180 tablet(s), Tablet(s), 3, 3, Print Requisition Start Date: 07/23/22 Stop Date: 07/18/23 Status: Ordered Lasix 40 mg oral tablet 40 mg, 1 tablet(s), Oral, daily, 90 tablet(s), Tablet(s), 3, 3, Print Requisition Start Date: 07/23/22 Stop Date: 07/18/23 Status: Ordered levothyroxine 50 mcg (0.05 mg) oral tablet 50 mcg, 1 tablet(s), Oral, daily before breakfast, 30 tablet(s), Tablet(s), 0 Start Date: 05/23/20 Status: Ordered Metoprolol Succinate ER 25 mg oral tablet, extended release 12.5 mg, 0.5 tablet(s), Oral, daily, 45 tablet(s), Tablet CR, 3, 3, Route to Pharmacy Electronically, [facility]/pharmacy #[id number], [id number], 185.42, cm, 01/14/24 13:48:00 CDT, Height, 89.81, kg, 01/14/24 13:48:00 CDT, Weight Start Date: 01/14/24 Status: Ordered Multivitamin oral tablet 1 tablet(s), Oral, daily, 30 tablet(s), Tablet(s), 0 Start Date: 12/28/20 Status: Ordered nitroglycerin 0.4 mg sublingual tablet 0.4 mg, 1 tablet(s), Sublingual, as needed, PRN, 25 tablet(s), 0, 0, chest pain, Route to Pharmacy Electronically, [facility]/pharmacy #[id number], [id number], 185.42, cm, 01/14/24 13:48:00 CDT, Height, 89.81, kg, 01/14/24 13:48:00 CDT, Weight Start Date: 01/14/24 Status: Ordered rosuvastatin 20 mg oral capsule 20 mg, 1 capsule(s), Oral, qhs, 90 capsule(s), Capsule(s), 3, 3, Print Requisition Start Date: 07/23/22 Stop Date: 07/18/23 Status: Ordered rosuvastatin 20 mg oral tablet See Instructions, 90 tablet(s), 1, TAKE 1 TABLET BY MOUTH AT BEDTIME, Route to Pharmacy Electronically, [id number], [id number], Instructions Replace Required Details, 185.42, cm, 07/08/23 15:24:00 CDT, Height, 92.99, kg, 07/08/23 15:24:00 CDT, Weight Start Date: 11/20/23 Status: Ordered Vitamin C 500 mg oral [...] Pulse Rate [60-100 bpm] 60 bp m (01/14/24 1:48 PM) Blood Pressure [89-139/60-90 mm Hg] 105/ 66mm Hg (01/14/24 1:48 PM) Height 185.42 cm (01/14/24 1:48 PM) Weight 89.81 kg (01/14/24 1:48 PM) Social History Social History Type Response Alcohol Former alcohol user, 28 years old Employment/School Retired Exercise Exercise frequency: Daily. Exercise type: Walking. Other 1 Substance Abuse Never drug user Smoking Status Former smoker;Never; Tobacco Cessation Counseling Requested N/A; Started at age: 13.0; Stopped at age: 28; entered on: 04/18/22 Sex 1Patient is and has 2 children. Hospital Discharge Instructions Patient Education 01/14/2024 13:48:24 CR Heart Healthy Diet (CUSTOM) Heart Healthy [...] breads ??? Bran cereals ??? Oatmeal ??? [place] ??? Barley ??? [place] ??? Brown rice ??? Wild rice ??? [...] oily fish when possible, such as: ??? [place] ??? Tuna ??? Mackerel ??? Sardines ??? [place] Choose lemon or port graham juices and spices to prepare fish. Don???t [...] End Date: Status:Met Progression:Not Met Note * Sumi Fischer LINE CONTROLLER: PERFORM Event Display: Patient Documentation AMB Authored Date: [id number] * Event Display: Patient Provided Clipboard Authored Date: [id number] Ambulatory Comprehensive Intake Ambulatory Comprehensive IntakeOriginating Source: PATIENTOriginating Author: MITCHELL BROWNlipboardSubmission Date: December 22, 2020 1:51:50 PM -05:00 MITCHELL RODRIGUEZ : 1950 Sex: Male MRN(s): [id number], [id number] Ambulatory Comprehensive Intake Question Response Advance Directive Advance Directive Date Location of Advance Directive Type of Advance Directive Patient has Court Appointed Guardian No Location of Court Appointed Guardian Documentation Legal Guardian Medical Power of Configuration Management Administrator Name Patient Requests Counseling Regarding Advance Directives History of Falling in Last 3 Months, Including Since Admission No Impaired Judgment/Lack of Safety Awareness No Agitation No Impaired Gait, Shuffle, Wide Base, Unsteady Walk No Ever Experience Dizziness or Vertigo No Ever Wet or Soil Yourself on Way to Bathroom No Medical Devices None Military Analyst Card Other Military Analyst Details Radiology Testing Barriers/Precautions Coronary artery stent or Vascular stent Menstrual Status N/A Previous LMP Date Last Menstrual Period Description Menarche Onset Menarche Frequency Menarche Length Menstrual Comments PAP result HPV Coping Effective Stressors Emotional Support Available Do You Receive Comfort From Spiritual Practices Episcopal Preference Alevism Spiritual Practice Comments Weight Change >10lbs Fever [...] voices No Marital or relationship problems No 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 Yes Chief Complaint Pain Present No actual or suspected pain Numeric Rating Pain Scale Primary Pain Location Primary Pain Comments * Event Display: ROI_Correspondence * Event Display: ROI_Correspondence * Event Display: ROI_Correspondence Cardiology Outpatient Note * Kan Nicholas MD: PERFORM, MODIFY Event Display: Cardiology Office/Clinic Note Authored Date: Patient Information Name:MITCHELL RODRIGUEZ Address: [address] [place] [id number] Sex:Male Date of :1950 Location:[facility] Registration Date and Time:01/14/2024 13:36 CDT Primary Care Physician: Nikky Reyes M.D., Attending Physician: Kan Nicholas MD, Chief Complaint Follow-up for CAD History of Present Illness Mr. Rodriguez is a pleasant??73-year-old male with a history of coronary artery disease status post multiple stents??to the LAD, circumflex, and right coronary artery, also history of ischemic cardiomyopathy previous ejection fraction of 36% now up to 46%,??and hypertension??who is presenting for follow-up today. ??I saw him in the hospital in June 2022.?During that time, he had??noticed some increase in fatigue as well as shortness of breath with exertion. Due to this, I repeated his left heart catheterization??which showed??a distal, 40% left main narrowing as well as mild in-stent restenosis but no severe??obstructive coronary artery disease.?? He also underwent a repeat echocardiogramwhich showed ejection fraction of approximately 40%. ??Due to his low ejection fraction, I did switch his medications around and switched him to metoprolol XL as well as started him on Entresto.?Ryley saw him in June 2023.? He is presenting for follow-up today. 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 He underwent??procedure??to remove the tumor and is planning to start chemotherapy soon. He has since??restarted his Plavix.??His blood pressures have??been well controlled??on12.5 mg metoprolol. He has had labs done??with??his primary care physician.?? Review of Systems A 12 point??review of systems was obtained and negative except as stated in the HPI.? Vitals and Measurements Vital Signs Height: 185.42 cm Height Inches Conversion: 73 Weight: 89.81 kg Weight in Pounds (kg conversion): 197.6 Body Surface Area: 2.1507 m2 Body Mass Index: 26.12 kg/m2 Systolic Blood Pressure: 105 mm Hg Diastolic Blood Pressure: 66 mm Hg Peripheral Pulse Rate: 60 bpm Oxygen Saturation: 98 % Physical Exam Vital signs reviewed.?? General:??Well [...] and affect. Skin: No new rashes or lesions.? CBC Latest Results WBC: 7.6 K/uL (02/26/23) Hemoglobin: 13.9 g/dL (02/26/23) Hematocrit: 41 % (02/26/23) MCV: 94.9 fL (02/26/23) Platelet: 190 K/uL (02/26/23) ?? Basic Metabolic Panel Latest Results BUN: 14 mg/dL [9 mg/dL - 20 mg/dL] (02/26/23) Calcium: 8.9 mg/dL [8.4 mg/dL - 10.2 mg/dL] (02/26/23) Chloride:??94 mmol/L??Low [98 mmol/L - 107 mmol/L] (02/26/23) CO2: 28 mmol/L [22 mmol/L - 30 mmol/L] (02/26/23) Creatinine: 0.89 mg/dL [0.7 mg/dL - 1.3 mg/dL] (02/26/23) Glucose: 96 mg/dL [74 mg/dL - 106 mg/dL] (02/26/23) Potassium: 4.1 mmol/L [3.5 mmol/L - 4.9 mmol/L] (02/26/23) Sodium: 139 mmol/L [137 mmol/L - 145 mmol/L] (02/26/23) ?? CMP Latest Results BUN: 14 mg/dL (02/26/23) Calcium: 8.9 mg/dL (02/26/23) Chloride:??94 mmol/L??Low (02/26/23) CO2: 28 mmol/L (02/26/23) Creatinine: 0.89 mg/dL (02/26/23) Potassium: 4.1 mmol/L (02/26/23) Sodium: 139 mmol/L (02/26/23) Glucose: 96 mg/dL (02/26/23) Protein, Total: 7.7 g/dL (02/26/23) Albumin: 4.1 g/dL (02/26/23) Alk Phos: 67 U/L (02/26/23) AST: 31 U/L (02/26/23) ALT: 25 U/L (02/26/23) Bilirubin, Total: 0.7 mg/dL (02/26/23) ?? Troponin Results Troponin I: <0.01 (02/26/23 17:46:00) ?? NT ProBNP NT-proBNP: 132 pg/mL (12/03/22) ?? TSH/T4/T3 TSH, Highly Sensitive:??6.67 uIU/mL??High (10/07/22) Free T4: 1 ng/dL (10/07/22) ?? Assessment/Plan 1.??Chronic systolic heart failure ??- The patient was hospitalized in??June of 2022??and underwent a repeat echocardiogram which showed an ejection fraction of approximately 40% -Due to this, I did??change his medications around and I started him on low-dose Entresto as well as metoprolol XL -His??symptoms are improved??and he underwent a repeat echocardiogram in February 2023 which shows an ejection fraction of 50% -Continue current medication regimen [1] 2.??Coronary artery disease - He has multiple stents??in multiple coronary arteries; his last left heart catheterization in 2020 showed mild to moderate disease of the left main coronary artery, IFR negative at 0.94 - He had mild in-stent restenosis of multiple stents - Repeat left heart catheterization??in June of??2022??unchanged from his prior one - Continue aspirin, Plavix, and Crestor [2]? [2] 3.??Hyperlipidemia - Continue Crestor 20 mg daily; he will have repeat labs done with his PCP?? 4.??Hypertension -??His blood pressure is well-controlled on Entresto,??metoprolol, and Lasix? Problem List/Past Medical History Ongoing Cardiomyopathy, ischemic Chest Pain/Angina Chronic systolic heart failure Congestive heart failure (CHF) Coronary artery disease Coronary Artery Disease Dizziness Heart attack Hematuria Hyperlipidemia Hypertension RHINO/ENTEROVIRUS Shortness of Breath Historical heart attack High Cholesterol Hypertension Pneumonia Stent Insertion Procedure/Surgical History ???Cardiac catheterization (06/25/2007)???Cardiac catheterization (05/21/2006)???Cardiac catheterization (10/23/2004)???Cardiac catheterization (11/08/2003)???Cardiac catheterization procedure (12/29/1997)???cardiac stints x14???cholecystectomy 03/2011 Medications aspirin 81 mg oral enteric coated tablet, 81 mg= 1 tablet(s), Oral, as needed cholecalciferol, 2000 IU, Oral, daily Chondroitin-Glucosamine, 2 capsule(s), Oral, qhs clopidogrel 75 mg oral tablet, 75 mg= 1 tablet(s), Oral, daily, 3 refills Entresto 24 mg-26 mg oral tablet, 1 tablet(s), Oral, bid, 3 refills Lasix 40 mg oral tablet, 40 mg= 1 tablet(s), Oral, daily, 3 refills levothyroxine 50 mcg (0.05 mg) oral tablet, 50 mcg= 1 tablet(s), Oral, daily before breakfast Metoprolol Succinate ER 25 mg oral tablet, extended release, 12.5 mg= 0.5 tablet(s), Oral, daily, 3refills Multivitamin oral tablet, 1 tablet(s), Oral, daily nitroglycerin 0.4 mg sublingual tablet, 0.4 mg= 1 tablet(s), Sublingual, as needed, PRN rosuvastatin 20 mg oral capsule, 20 mg= 1 capsule(s), Oral, qhs, 3 refills rosuvastatin 20 mg oral tablet, See Instructions Vitamin C 500 mg oral tablet, 500 [...] ?Heart Disease ?Brother ?Positive ?Heart Disease ? Voice to Text Technology Disclaimer This note may contain text inserted via Dragon or other voice to text assistive technology and softball winder, variances may occur. [1]??Cardiology Office Note; Kan Nicholas MD 07/08/2023 20:52 CDT [2]??Cardiology Office Note; Kan Nicholas MD 07/08/2023 20:52 CDT Patient Care team information Care Team Personnel Name: Candida Ventura Care Mgmt Outside Installer Apprentice Position: OP Cmo & President Outside Installer Apprentice Member Role: Cmo & President Name: Kan Nicholas MD Position: Physician - Cardiology Member Role: Specialist Physician Address: Address: [facility] [address] [place] [address] [place] Name: Nikky Reyes M.D. Position: ZZ FAX ONLY - MD NOT ON STAFF Member Role: Primary Care Physician Address: Address: [address] [place] [address] [address] [place] [address]- Name: Rosanne Santana M.D. Position: LOURDES PowerNote Physician Member Role: Draughtsman Address: Address: [address] [place] [address] [address] Name: Karen Parra CNP Position: AMB CONTRACT ASSOCIATE MANAGER/PA Member Role: Nurse Practitioner Address: Address: [address] [place] [address] [address] [place] [address] [place] Name: Kan Nicholas MD Position: Physician - Cardiology Med Service: Heel Compressor Imaging Technician Role: Attending Physician Address: Address: [facility] [address] Care Team Related Persons Name: GLADIS RODRIGUEZ Address: home [address] [place] [address], [phone]
--- OUTSIDE RECORDS SUMMARY | 2024-04-12 11:31 | XMS_ITS | Encounter Summary ---
Author Organization [facility] Address [address] [place] [address]. [place], [place] [id number] [place] [id number] Care Team Providers Care Customs Compliance Manager Name Role Phone Nikky Reyes MD Primary Care Provider Encounter Details Date Type Department Care Team (Late st Contact Info) Description 04/02/2024 2:45 PM NUCLEAR MEDICINE SUPERVISOR - 04/02/2024 11:59 PM [facility] Hospital Encounter [facility] [place] [address] Adelso Quiñones MD [address] [facility] [address] [place] [address] Discharge Disposition: Home or Self Care (Routine Discharge) Social History Tobacco Use Types Packs/Day Years Used Date Smoking Tobacco: Former Cigarettes 2 15 S tarted: 1967 Smokeless Tobacco: Never Alcohol Use Standard Drinks/Week Comments Not Currently 0 (1 standard drink = 0.6 oz pur e alcohol) sober 43 years Sex and Gender Information Value Date Recorded Sex Assigned at Not on file Legal Sex Male 1:18 PM NUCLEAR MEDICINE SUPERVISOR Gender Identity Not on file Sexual Orientation Not on file documented as of this encounter Medications at Time of Discharge aspirin 81 MG chewable tablet Chew 1 tablet (81 mg total) by mouth daily. clopidogrel (PLAVIX) 75 MG tablet Take 1 tablet (75 mg total) by mouth daily. furosemide (LASIX) 40 MG tablet Take 1 tablet (40 mg total) by mouth daily. Glucosamine 500 MG Cap Take by mouth daily. HYDROcodone-aceta minophen (NORCO) 5-325 MG tabletIndications :Acute Pain < 3 Day Supply Take 1 tablet by mouth every 6 (six) hours as needed. Indications: Acute Pain < 3 Day Supply 12 tablet 12/05/2023 hyoscyamine (LEVSIN/SL) 0.[address] 1 tablet (0.125 mg total) under the tongue every 4 (four) hours as needed for Cramping (ureteral stent discomfort). 30 tablet 1 12/05/2023 levothyroxine (SYNTHROID) 50 MCG tablet Take 1 tablet (50 mcg total) by mouth every morning. metoprolol succinate ER (TOPROL-XL) 25 MG 24 hr tablet Take 1 tablet (25 mg total) by mouth nightly. Multiple Vitamins-Minerals (MULTIVITAMIN ADULTS 50+ OR) Take by mouth daily. rosuvastatin (CRESTOR) 20 MG tablet Take 1 tablet (20 mg total) by mouth nightly at bedtime. sacubitril-valsar lozada (ENTRESTO) 49-51 MG tablet Take 0.5 tablets by mouth 2 (two) times daily. tamsulosin (FLOMAX) 0.4 MG Cap Take 1 capsule (0.4 mg total) by mouth nightly at bedtime. 30 capsule 1 12/05/2023 vitamin C (ASCORBIC ACID) 1000 MG tablet Take 1 tablet (1,000 mg total) by mouth daily. VITAMIN D, ERGOCALCIFEROL, OR Take by mouth daily. documented as of this encounter Plan of Treatment Not on file documented as of this encounter Procedures Procedure Name Priority Date/Time Associated Diagnosis Comments URINE BACTERIA CULTURE Routine 04/02/2024 2:46 PM NUCLEAR MEDICINE SUPERVISOR Bladder cancer ([facility]) Hydronephrosis with ureteral stricture documented in this encounter Results * (ABNORMAL) URINE BACTERIA CULTURE (04/02/2024 2:46 PM NUCLEAR MEDICINE SUPERVISOR) SPEC DESCRIPTION URINE CLEAN CATCH 04/02/2024 2:47 PM NUCLEAR MEDICINE SUPERVISOR [facility] SPECIAL REQUESTS NO SPECIAL REQUEST 04/02/2024 2:47 PM NUCLEAR MEDICINE SUPERVISOR [facility] CULTURE RESULT >100,000 COL/ML STAPH. SPECIES NOT STAPH. AUREUS (A) 04/04/2024 8:02 AM NUCLEAR MEDICINE SUPERVISOR [facility] URINE SPECIMEN OBTAINED BY CLEAN CATCH PROCEDURE / Unknown 04/02/2024 2:46 PM NUCLEAR MEDICINE SUPERVISOR 04/02/2024 3:46 PM NUCLEAR MEDICINE SUPERVISOR Narrative Organism Antibiotic Method Susceptibility Staph. species not staph. aureus NITROFURANTOIN NIRMALA (V ITEK) <=16: Sensitive Staph. species not staph. aureus LEVOFLOXACIN NIRMALA (VIT EK) 4: Resistant Staph. species not staph. aureus OXACILLIN NIRMALA (VIT EK) >=4: Resistant Staph. species not staph. aureus TRIMETH-SULFAMETH. VT C (VITEK) 20: Sensitive Staph. species not staph. aureus TETRACYCLINE NIRMALA (VIT EK) >=16: Resistant Staph. species not staph. aureus VANCOMYCIN NIRMALA (VIT EK) 2: Sensitive Adelso Quiñones MD MICROBIOLOGY - GENERAL ORDERABL ES Final Result [facility] [address] [place] [address], documented in this encounter Visit Diagnoses Diagnosis Bladder cancer (CMS/HCC HHS/HCC) Malignant neoplasm of bladder, part unspecified Hydronephrosis with ureteral stricture documented in this encounter Care Teams Customs Compliance Manager Relationship Specialty Start Date End Date Nikky Reyes MD [address] [place] [address] PCP - General FAMILY PRACTICE 05/04/21 documented as of this encounter
--- OUTSIDE RECORDS SUMMARY | 2024-04-12 11:31 | XMS_ITS | Encounter Summary ---
Author Organization [facility] Address [address] [place] [address]. [place], [place] [id number] [place] [id number] Care Team Providers Care Senior Solutions Engineer Name Role Phone Nikky Reyes MD Primary Care Provider Encounter Details Date Type Department Care Team (Latest Contact Info) Description 12/05/2023 Travel Social History Tobacco Use Types Packs/Day Years Used Date Smoking Tobacco: Former Cigarettes 2 15 S tarted: 1967 Smokeless Tobacco: Never Alcohol Use Standard Drinks/Week Comments Not Currently 0 (1 standard drink = 0.6 oz pur e alcohol) sober 43 years Sex and Gender Information Value Date Recorded Sex Assigned at Not on file Legal Sex Male 1:18 PM ARC C[employer]TER [employer] Gender Identity Not on file Sexual Orientation Not on file documented as of this encounter Plan of Treatment Not on file documented as of this encounter Visit Diagnoses Not on filedocumented in this encounter Care Teams Senior Solutions Engineer Relationship Specialty Start Date End Date Nikky Reyes MD [address] [place] [address] PCP - General FAMILY PRACTICE 05/04/21 documented as of this encounter
--- OUTSIDE RECORDS SUMMARY | 2024-04-12 11:31 | XMS_ITS | Encounter Summary ---
Author Organization [facility] Address [address] [place] [address]. [place], [place] [address] [place] [address] Care Team Providers Care Corporate Development Officer Name Role Phone Nikky Reyes MD Primary Care Provider Reason for Referral * Imaging (Routine) - Closed Specialty Diagnoses / Procedures Referred By Contac t Referred To Contact RADIOLOGY Diagnoses Gross hematuria Procedures CT ABD+PEL WWO CON Mian Rasmussen MD [address] [place] [address] Phone: tel: fax: Referral ID Status Reason Start Date Expiration Date Visits Re quested Visits Authorized [id number] Closed 04/24/2021 05/25/2022 1 1 TESTER Reason for Visit * Imaging (Routine) - Closed Specialty Diagnoses / Procedures Referred By Contac t Referred To Contact RADIOLOGY Diagnoses Gross hematuria Procedures CT ABD+PEL WWO CON Mian Rasmussen MD [address] [place] [address] Phone: tel: fax: Referral ID Status Reason Start Date Expiration Date Visits Re quested Visits Authorized [id number] Closed 04/24/2021 05/25/2022 1 1 Encounter Details Date Type Department Care Team (Latest Contact Info) Description 05/04/2021 9:55 AM CAR TESTER - 05/04/2021 11:59 PM CAR TESTER Hospital [place] [address] [place] [address] Mian Rasmussen MD [address] [place] [address] Discharge Disposition: Home or Self Care (Routine Discharge) Social History Tobacco Use Types Packs/Day Years Used Date Smoking Tobacco: Never Assessed Sex and Gender Information Value Date Recorded Sex Assigned at Not on file Legal Sex Male 1:18 PM CAR TESTER Gender Identity Not on file Sexual Orientation Not on file COVID-19 Exposure Response Date Recorded In the last 10 days, have yo u been in contact with someone who was confirmed or suspected to have Coronavirus/COVID-19? No / Unsure 05/04/2021 9:48 AM CAR TESTER documented as of this encounter Plan of Treatment Not on file documented as of this encounter Procedures Procedure Name Priority Date/Time Associated Diagnosis Comments CT ABD+PEL WWO CON Routine 05/04/2021 10 :42 AM CAR TESTER Gross hematuria CREATININE WHOLE BLOOD Routine 05/04/2021 10:15 AM CAR TESTER Gross hematuria documented in this encounter Results * CT ABD+PEL WWO CON (05/04/2021 10:42 AM CAR TESTER) Anatomical Region Laterality Modality Abdomen Computed Tomogra phy 05/04/2021 1:07 PM CAR TESTER Impressions 05/04/2021 1:31 PM CAR TESTER IMPRESSION: 1. ??Exam is positive for low volume urinary bladder with mild diffuse mucosal thickening with minor adjacent fatty infiltration. May be due to inflammatory cystitis. Interstitial cystitis is another consideration..No distinct intraluminal lesion. Follow-up with cystoscopy may be of benefit. 2. ??No renal calculi or urinary bladder calculi. No hydronephrosis. No renal mass. Renal cortical volume is within normal limits. No perinephric fatty infiltration. 3. ??Cholecystectomy. Normal appendix. Mildly enlarged prostate gland with calcifications. 4. 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 Narrowing of the lumen of 50% due to posterior plaque. Small dissection along the distal aspect of this aneurysm. On image [id number] of 172.. Vascular surgery consultation may BE of benefit.. 5. ??Fatty liver with right lobe liver cysts. Probable 1 cm benign hemangioma within the right lobe on image 47. And probable partial fill-in of hemangioma within the inferior right lobe on image 65 measuring 1.1 cm. Borderline spleen size without mass. Other visceral structures are within normal limits.. . 6. ??Atherosclerotic normal-sized aorta. No pathologic lymphadenopathy. No free fluid or free air. Numerous sigmoid diverticuli without diverticulitis. Mild to moderate stool in colon without obstruction. 7. ??Lung bases with minimal scar. No infiltrate. Advanced coronary artery calcifications versus stents.. Mild degenerative change in lumbar spine. Ordered By: MIAN RASMUSSEN Interpreted By: Dakotah Carranza, 05/04/2021 1:07 PM Narrative 05/04/2021 1:31 PM CAR TESTER IMAGING STUDIES: CT ABD+PEL WWO CON ?DATE: 05/04/2021 9:56 AM CLINICAL HISTORY: Intermittent hematuria for [address] ROUT[address] OF THE ABDOMEN AND PELVIS WITH AND WITHOUT CONTRAST. IV ADMINISTRATION OF 80 CC OF ISOVUE 370. COMPARISON: None. Radiation dose reduction technique was utilized. Procedure Note Blayne Carranza MD - 05/04/2021 IMAGING STUDIES: CT ABD+PEL WWO CONDATE: 05/04/2021 9:56 AM CLINICAL HISTORY: Intermittent hematuria for 3 months[address] ROUT[address] OF THE ABDOMEN AND PELVIS WITH AND WITHOUT CONTRAST. IVADMINISTRATION OF 80 CC OF ISOVUE 370. COMPARISON: None. Radiation dosereduction technique was utilized. IMPRESSION: 1. Exam is positive for low volume urinary bladder with mild diffusemucosal thickening with minor adjacent fatty infiltration. May be due toinflammatory cystitis. Interstitial cystitis is another consideration..Nodistinct intraluminal lesion. Follow-up with cystoscopy may be ofbenefit. 2. No renal calculi or urinary bladder calculi. No hydronephrosis. Norenal mass. Renal cortical volume is within normal limits. No perinephricfatty infiltration. 3. Cholecystectomy. Normal appendix. Mildly enlarged prostate gland withcalcifications. 4. There is a right common iliac artery aneurysm measuring 2 x 2centimeters. Narrowing of the lumen of 50% due to posterior plaque. Smalldissection along the distal aspect of this aneurysm. On image [id number] of172.. Vascular surgery consultation may BE of benefit.. 5. Fatty liver with right lobe liver cysts. Probable 1 cm benignhemangioma within the right lobe on image 47. And probable partial fill-inof hemangioma within the inferior right lobe on image 65 measuring 1.1 cm.Borderline spleen size without mass. Other visceral structures are withinnormal limits.. . 6. Atherosclerotic normal-sized aorta. No pathologic lymphadenopathy. Nofree fluid or free air. Numerous sigmoid diverticuli withoutdiverticulitis. Mild to moderate stool in colon without obstruction. 7. Lung bases with minimal scar. No infiltrate. Advanced coronary arterycalcifications versus stents.. Mild degenerative change in lumbar spine. Ordered By: MIAN RASMUSSEN Interpreted By: Dakotah Carranza, 05/04/2021 1:07 PM Mian Rasmussen MD CT Final Result * CREATININE WHOLE BLOOD (Radiology only) (05/04/2021 10:15 AM CAR TESTER) CREATININE WHOLE BLOOD 0.9 0.6 - 1.2 MG/DL 05/04/2021 3:41 PM CAR TESTER [facility] 05/04/2021 10:1 5 AM CAR TESTER us Mian Rasmussen MD LABORATORY Final Result [facility] [address] [place] [address], [place] [phone] documented in this encounter Visit Diagnoses Diagnosis Gross hematuria documented in this encounter Administered Medications Inactive Administered Medications - up to 3 most recent administrations Medication Order MAR Action Action Date Dose Rate Site iopamidol (ISOVUE-370) 76 % injection 80 mL 80 mL, Intravenous, IMG once as needed, Contrast, 1 dose, Starting on Fri05/04/21 at 1042, Until Fri05/04/21 at 1017 Given 05/04/2021 10:17 AM CAR TESTER 80 mLs Righ t Arm documented in this encounter Care Teams Corporate Development Officer Relationship Specialty Start Date End Date Nikky Reyes MD [address] [place] [address] PCP - General FAMILY PRACTICE 05/04/21 documented as of this encounter
--- OUTSIDE RECORDS SUMMARY | 2024-04-12 11:31 | XMS_ITS | Encounter Summary ---
Author Organization [facility] Address [address] [place] [address]. [place], [place] [id number] [place] [address] Care Team Providers Care Spiral Winder Name Role Phone Nikky Reyes MD Primary Care Provider Encounter Details Date Type Department Care Team (Latest Contact Info) Description 04/02/2024 Travel Social History Tobacco Use Types Packs/Day Years Used Date Smoking Tobacco: Former Cigarettes 2 15 S tarted: 1965 Smokeless Tobacco: Never Alcohol Use Standard Drinks/Week Comments Not Currently 0 (1 standard drink = 0.6 oz pur e alcohol) sober 45 years Sex and Gender Information Value Date Recorded Sex Assigned at Not on file Legal Sex Male 1:18 PM ENVIRONMENTAL ANALYST Gender Identity Not on file Sexual Orientation Not on file documented as of this encounter Plan of Treatment Not on file documented as of this encounter Visit Diagnoses Not on filedocumented in this encounter Care Teams Spiral Winder Relationship Specialty Start Date End Date Nikky Reyes MD [address] [place] [address] PCP - General FAMILY PRACTICE 05/04/21 documented as of this encounter
--- OUTSIDE RECORDS SUMMARY | 2024-04-12 11:31 | XMS_ITS | Encounter Summary ---
Author Organization [facility] Address [address] [place] [address]. [place] [address] [place] [address] Care Team Providers Care Architect Intern Name Role Phone Nikky Reyes MD Primary Care Provider Reason for Visit * Auth/Cert (Routine) Specialty Diagnoses / Procedures Referred By Contac t Referred To Contact Diagnoses GROSS HEMATURIA, 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, D49.4 Procedures CYSTOSCOPY, TRANSURETHRAL RESECTION BLADDER TUMOR, BILATERAL RETROGRADE PYELOGRAM, LEBRON CATHETER PLACEMENT, INTRAVESICAL INSTILLATION OF GEMCITABINE POSSIBLE URETEROSCOPY, POSSIBLE URETERAL STENT PLACEMENT Kwaku Martin MD [address] [facility] [address] [facility] [place] [address] Phone: tel: fax: Referral ID Status Reason Start Date Expiration Date Visits Re quested Visits Authorized [id number] 1 1 Encounter Details Date Type Department Care Team (Late st Contact Info) Description 12/05/2023 9:13 AM CDT Anesthesia Event [place] [address] Moises Ewing MD [address] [place] [address] Wandy Pinon FNP [address] [place] [address] Anesthesia Record Procedure Summary Procedure Name Responsible Anesthesiologist Anesthesia Start Time Anesthesia Stop Time CYSTOSCOPY, TRANSURETHRAL RESECTION BLADDER TUMOR, RIGHT RETROGRADE PYELOGRAM, RIGHT URETERAL STENT PLACEMENT, LEBRON CATHETER PLACEMENT, INTRAVESICAL INSTILLATION OF GEMCITABINE (Right: Bladder) Moises Ewing MD 12/05/23 0913 12/05/23 1045 Events Date Time Event Comment 12/05/2023 0823 0823 AN Anesthesia Prepped 0855 AN REFRIGERATOR ASSEMBLER Prepped 0913 An Start Patient ID and consent checked and patient reassessed. JONATHON Vázquez introduced to the patient and the patient verbally consents for the SRNA to participate in all appropriate aspects of perioperative care under the direct supervision of the REFRIGERATOR ASSEMBLER. REFRIGERATOR ASSEMBLER remains present for continuous supervision of the SRNA and maintains responsibility for documentation. 0914 An Start Data 0916 Preoxygenation 0918 An Induction The patient was reevaluated immediately before moderate or deep sedation use and before anesthesia induction. 0923 An Intubation 0924 Anesthesia Ready 1042 An Extubation 1043 an stop data 1045 Post Anesthetic Care Handoff I completed my handoff to the receiving nurse during which we: 1. Identified the patient 2. Identified the responsible provider 3. Reviewed the pertinent medical history 4. Discussed the surgical course 5. Reviewed intra-op anesthesia management and issues during anesthesia 6. Set expectations for post-procedure period 7. Allowed opportunity for questions and acknowledgement of understanding. 1045 An Stop Meds Name Total lidocaine (PF) (XYLOCAINE) 2% injection 100 mg propofol (DIPRIVAN) 200 mg/20 mL injecti on 180 mg rocuronium (ZEMURON) 50 mg/5 mL injectio n 50 mg fentaNYL (SUBLIMAZE) 100 mcg/2 mL inject ion 75 mcg ceFAZolin (ANCEF) 2 g in NS 100 mL IVPB 2 g dexamethasone (DECADRON) 4 mg/mL injecti on 4 mg glycopyrrolate (ROBINUL) 0.2 mg/mL injec tion 0.2 mg phenylephrine (JEFF-SYNEPHRINE) injection 50 mcg ondansetron (ZOFRAN) injection 4 mg sugammadex (BRIDION) 200 mg/2 mL injecti on 200 mg lactated ringers infusion 600 mL * Agents Name O2 N2O Air Inspired Sevoflurane Sevoflurane * Blood No blood administrations on file. Lines, Drains, and Airways Type Details Placement Removal Peripheral IV Placement Date: 09/21; Placement Time: 0750; Placed Outside of This Facility?: No; Size: 20 G; Orientation: Right; Location: Forearm; Site Prep: Chlorhexidine; Local Anesthetic: None; Inserted By: Kierra DONALD; Insertion attempts: 1; Ultrasound-guided Placement?: No; Patient Tolerance: Tolerated well; Removal Date: 12/05/23; Removal Time: 1215; Removal Reason: Patient Discharged 12/05/23 0750 by Uzma Jensen RN 12/05/23 1215 by Shirley Aly RN ETT Placement Date: 09/21; Placement Time: 922; Placed Outside of This Facility?:No; Mask Ventilate: Prior to intubation, Easy; Size (mm) : 8; Endotracheal: Oral, Stylet used; Blade Type: MAC 4; Placement Method: Direct Laryngoscopy (blade type in comment); View Grade: 1; Viewable Anatomy: Epiglottis, Arytenoid, Vocal cords; Insertion Attempts: 1; Placement Verified By: Capnography, Auscultation, Chest Rise; Placed By: JONATHON; Extubation Assessment: Tolerated well, Patient spontaneously breathing, Atraumatic; Removal Date: 12/05/23; Removal Time: 1042; Removal Person: Other (Comment) (JONATHON); Removal Reason: End of Case 12/05/23922 by Byron Mathews CRNA 12/05/23 1042 by Byron Mathews CRNA Lebron Catheter 12/05/23; 1012; No; Urologic Surgical intervention - Bladder, Prostate, SERVER ASSISTANT procedures; 1; Lebron care post catheter insertion, Hand hygiene performed, Site cleansed with sterile antiseptic, Anchoring device applied, Drainage bag secured below level of bladder, Sterile gloves, drape and lubricant used, Catheter inserted using aseptic technique, Closed system maintained; Stat lock; Latex, Coude; 20 Fr.; Per Order 12/05/23 1012 by Shirley Angeles RN 12/05/23 1145 by Shirley Aly RN documented in this encounter Social History Tobacco Use Types Packs/Day Years Used Date Smoking Tobacco: Former Cigarettes 2 15 S tarted: 1965 Smokeless Tobacco: Never Alcohol Use Standard Drinks/Week Comments Not Currently 0 (1 standard drink = 0.6 oz pur e alcohol) sober 45 years Sex and Gender Information Value Date Recorded Sex Assigned at Not on file Legal Sex Male 1:18 PM MATHEMATICIAN RESEARCH Gender Identity Not on file Sexual Orientation Not on file documented as of this encounter Progress Notes * Moises Ewing MD - 12/05/2023 11:26 AM CDT Addendum created 12/05/23 1126 by Moises Ewing MD Attestation recorded in Intraprocedure, Intraprocedure Attestations filed documented in this encounter OR Notes * Anesthesia Postprocedure Evaluation - Moises Ewing MD - 12/05/2023 11:22 AM CDT Anesthesia Post-op Note Venkat Aranda Procedure(s): CYSTOSCOPY, TRANSURETHRAL RESECTION BLADDER TUMOR, RIGHT RETROGRADE PYELOGRAM, RIGHT URETERAL STENT PLACEMENT, LEBRON CATHETER PLACEMENT, INTRAVESICAL INSTILLATION OF GEMCITABINE (Right: Bladder) Anesthesia type: general Vitals: 12/05/23 1115 BP: 114/74 Vitals: 12/05/23 1115 Pulse: (!) 56 Vitals: 12/05/23 1115 Resp: 18 Vitals: 12/05/23 1115 Temp: 36.2 ??C Vitals: 12/05/23 1115 SpO2: 94% Patient Location: PACU Level of Consciousness: awake Pain Management: adequate analgesia Airway Patency: patent Respiratory Status: acceptable Cardiovascular Status: acceptable Post-Op Nausea: none Postoperative Hydration: euvolemic No notable events documented. * Anesthesia Preprocedure Evaluation - Moises Ewing MD - 12/05/2023 8:22 AM CDT Anesthesia ROS/MED History Reviewed: Patient summary , ECG, Family history anesthesia, Anesthesia history , Medications , Labs Pre-Anesthetic State: alert, awake and responds appropriately no history of anesthetic complications Pulmonary (-) COPD, sleep apnea, asthma Cardiovascular (+) hypertension, past KS, CAD, (Stent), hyperlipidemia Neuro/Psych (-) no seizures, no CVA Substance Use (-) smoker, vaping user GI/Hepatic/Renal (-) GERD, PUD, liver disease, renal disease Endo/Other (+) blood dyscrasia, (Anticoagulation) (-) diabetes, normal weight range GENERAL COMMENTS Review of patient's allergies indicates: Patient has no known allergies. Last Fluid Intake Date: 12/05/23 Last Fluid Intake Time: 745 Last Solid Intake Date: 12/04/23 Last Solid Intake Time: 1999 Past Medical History: No date: Bladder tumor No date: Cancer ([facility]) No date: CHF (congestive heart failure) ([facility]) Comment: high 40s EF per pt No date: Coronary artery disease No date: Depression Comment: in past No date: Heart attack ([facility]) Comment: x3- last around 2020 per pt- 2 were widowmakers No date: Hypercholesteremia No date: Hypertension No date: Hypothyroidism, unspecified Past Surgical History: No date: LAPAROSCOPIC CHOLECYSTECTOMY No date: SCREENING COLONOSCOPY No date: TRANSCATH STENT INIT VESSEL,PERCUT Comment: total of 15- last stents 2021 per pt NPO Status: Last Fluid Intake Date: 12/05/23 Last Fluid Intake Time: 745 Last Solid Intake Date: 12/04/23 Last Solid Intake Time: 1999 Physical Evaluation Airway Mallampati: II Dental (missing), (crowns) Pulmonary Breath sounds clear to auscultation Cardiovascular Rhythm: regular Rate: normal (-) murmur STOP-Bang Assessment: Do you snore loudly?: 0 Do you often feel tired or fatigued after your sleep?: 0 Has anyone ever observed you stop breathing in your sleep?: 0 Do you have or are you being treated for high blood pressure?: 1 Recent BMI (Calculated): 25.5 Is BMI greater than 35 kg/m2?: 0=No Age older than 50 years old?: 1=Yes Is your neck circumference greater than 17 inches (Male) or 16 inches (Female)?: 0 Gender - Male: 1=Yes STOP-Bang Total Score: 3 Anesthesia Plan ASA 3 Intravenous Induction Anesthesia type: general Plan for Airway: ETT Plan for Post-op Pain Plan: as per surgeon and oral pain medication GETA Informed Consent Anesthetic plan and risks discussed with patient of whom consent was obtained. . documented in this encounter Plan of Treatment Not on file documented as of this encounter Visit Diagnoses Not on filedocumented in this encounter Administered Medications Inactive Administered Medications - up to 3 most recent administrations Medication Order MAR Action Action Date Dose Rate Site ceFAZolin (ANCEF) 2 g in NS 100 mL IVPB 2 g, Intravenous, at 400 mL/hr, inbound call center representative to O.R., 1 dose, First dose on Fri12/05/23 at 0730, Pre-OpIndications:Gross hematuria,Bladder tumor Given 12/05/2023 9:25 AM CDT 2 g dexamethasone (DECADRON) injection Intravenous, PRN, Starting on Fri12/05/23 at 0933, Until Fri12/05/23 at 1050, Anesthesia Intra-Op Given 12/05/2023 9:33 AM CDT 4 mg fentaNYL (SUBLIMAZE) injection Intravenous, PRN, Starting on Fri12/05/23 at 0918, Until Fri12/05/23 at 1050, Anesthesia Intra-Op Given 12/05/2023 10:17 AM CDT 25 mcg Given 12/05/2023 9:18 AM CDT 50 mcg glycopyrrolate (ROBINUL) injection Intravenous, PRN, Starting on Fri12/05/23 at 0934, Until Fri12/05/23 at 1050, Anesthesia Intra-Op Given 12/05/2023 9:34 AM CDT 0.2 mg lactated ringers infusion at 10 mL/hr, Intravenous, Continuous, Starting on Fri12/05/23 at 0730, Until Fri12/05/23 at 1446, Infuse at TKO rate, Pre-Op Rate/Dose Change 12/05/2023 10:47 AM CDT 100 mL/hr Rate/Dose Change 12/05/2023 10:33 AM CDT 500 mL /hr New Bag 12/05/2023 7:50 AM CDT 50 mL/hr lidocaine (PF) (XYLOCAINE) 2 % injection Intravenous, PRN, Starting on Fri12/05/23 at 0918, Until Fri12/05/23 at 1050, Anesthesia Intra-Op Given 12/05/2023 9:18 AM CDT 100 mg ondansetron (ZOFRAN) injection Intravenous, PRN, Starting on Fri12/05/23 at 1029, Until Fri12/05/23 at 1050, Anesthesia Intra-Op Given 12/05/2023 10:29 AM CDT 4 mg phenylephrine (JEFF-SYNEPHRINE) injection Intravenous, PRN, Starting on Fri12/05/23 at 1009, Until Fri12/05/23 at 1050, Anesthesia Intra-Op Given 12/05/2023 10:09 AM CDT 50 mcg propofol (DIPRIVAN) IV bolus Intravenous, PRN, Starting on Fri12/05/23 at 0918, Until Fri12/05/23 at 1050, Anesthesia Intra-Op Given 12/05/2023 10:16 AM CDT 30 mg Given 12/05/2023 9:18 AM CDT 150 mg rocuronium (ZEMURON) injection Intravenous, PRN, Starting on Fri12/05/23 at 0918, Until Fri12/05/23 at 1050, Anesthesia Intra-Op Given 12/05/2023 9:18 AM CDT 50 mg sugammadex (BRIDION) injection Intravenous, PRN, Starting on Fri12/05/23 at 1034, Until Fri12/05/23 at 1050, Anesthesia Intra-Op Given 12/05/2023 10:34 AM CDT 200 mg documented in this encounter Care Teams Architect Intern Relationship Specialty Start Date End Date Nikky Reyes MD [address] [place] [address] PCP - General FAMILY PRACTICE 05/04/21 documented as of this encounter
--- OUTSIDE RECORDS SUMMARY | 2024-04-12 11:31 | XMS_ITS | Clinical Summary ---
Author Organization [facility] Address [address] [place] [address]. [place], [place] [id number] [place] [phone] Care Team Providers Care Carpenter Supervisor Name Role Phone Nikky Reyes MD Primary Care Provider Allergies No known active allergies Medications levothyroxine (SYNTHROID) 50 MCG tablet Take 1 tablet (50 mcg total) by mouth every morning. Active Glucosamine 500 MG Cap Take by mouth daily. Active furosemide (LASIX) 40 MG tablet Take 1 tablet (40 mg total) by mouth daily. Active clopidogrel (PLAVIX) 75 MG tablet Take 1 tablet (75 mg total) by mouth daily. Active metoprolol succinate ER (TOPROL-XL) 25 MG 24 hr tablet Take 1 tablet (25 mg total) by mouth nightly. Active rosuvastatin (CRESTOR) 20 MG tablet Take 1 tablet (20 mg total) by mouth nightly at bedtime. Active sacubitril-vals kumar (ENTRESTO) 49-51 MG tablet Take 0.5 tablets by mouth 2 (two) times daily. Active aspirin 81 MG chewable tablet Chew 1 tablet (81 mg total) by mouth daily. Active Multiple Vitamins-Minera ls (MULTIVITAMIN ADULTS 50+ OR) Take by mouth daily. Active vitamin C (ASCORBIC ACID) 1000 MG tablet Take 1 tablet (1,000 mg total) by mouth daily. Active VITAMIN D, ERGOCALCIFEROL, OR Take by mouth daily. Active tamsulosin (FLOMAX) 0.4 MG Cap Take 1 capsule (0.4 mg total) by mouth nightly at bedtime. 30 capsule 1 12/05/2023 Active hyoscyamine (LEVSIN/SL) 0.[address] 1 tablet (0.125 mg total) under the tongue every 4 (four) hours as needed for Cramping (ureteral stent discomfort). 30 tablet 1 12/05/2023 Active HYDROcodone-rusty taminophen (NORCO) 5-325 MG tabletIndicatio ns:Acute Pain < 3 Day Supply Take 1 tablet by mouth every 6 (six) hours as needed. Indications: Acute Pain < 3 Day Supply 12 tablet 12/05/2023 Active Active Problems Problem Noted Date Diagnosed Date Aneurysm of right common iliac artery 02/11/2023 Atherosclerosis of coronary artery 02/11/2023 Gross hematuria 02/11/2023 Essential (primary) hypertension 02/11/2023 Hyperlipidemia 02/11/2023 Hypothyroidism 02/11/2023 Ischemic dilated cardiomyopathy ([facility] ) 02/11/2023 Nausea 02/11/2023 Nonrheumatic mitral (valve) insufficiency 2022 Nonrheumatic tricuspid (valve) insufficiency Unspecified diastolic (conge stive) heart failure ([facility]) 02/11/2023 Encounters Date Type Department Care Team Description 04/10/2024 1:02 PM AIRPORT RAMP SUPERVISOR - 04/10/2024 2:36 PM [facility] Emergency [facility] [place] [address] Yoko Arzola NP Fever Discharge Disposition: Home or Self Care (Routine Discharge) 04/10/2024 Travel 04/08/2024 11:17 AM [facility] Anesthesia Event [facility] [place] [address] Vickie Clarke MD Jackson, Samantha Rae, FNP 04/08/2024 11:16 AM AIRPORT RAMP SUPERVISOR - 04/08/2024 12:44 PM [facility] Surgery [facility] [place] [address] Adelso Mansfield MD CYSTOSCOPY 04/08/2024 8:59 AM AIRPORT RAMP SUPERVISOR - 04/08/2024 1:50 PM AIRPORT RAMP SUPERVISOR Hospital Encounter [facility] [address] Adelso Mansfield MD Discharge Disposition: Home or Self Care (Routine Discharge) 04/08/2024 Travel 04/02/2024 2:45 PM AIRPORT RAMP SUPERVISOR - 04/02/2024 11:59 PM AIRPORT RAMP SUPERVISOR Hospital Encounter [facility] [address] Adelso Mansfield MD Discharge Disposition: Home or Self Care (Routine Discharge) 04/02/2024 Travel 04/01/2024 [facility] [place] [address] Adelso Mansfield MD from Last 3 Months Immunizations Name Administration Dates Next Due Influenza (Generic) 01/15/2013,02/03/2012 Influenza Adult (Generic) 03/09/2019,02/03/2018, 01/28/2017,02/28/2015 Tdap (Generic) 11/23/2015 Family History Medical History Relation Comments Cancer Other Heart Disease Other Cancer Sister Relation Status Comments Other Sister Social History Tobacco Use Types Packs/Day Years Used Date Smoking Tobacco: Former Cigarettes 2 15 S tarted: 1965 Smokeless Tobacco: Never Alcohol Use Standard Drinks/Week Comments Not Currently 0 (1 standard drink = 0.6 oz pur e alcohol) sober 43 years Sex and Gender Information Value Date Recorded Sex Assigned at Not on file Legal Sex Male 1:18 PM AIRPORT RAMP SUPERVISOR Gender Identity Not on file Sexual Orientation Not on file Last Filed Vital Signs Vital Sign Reading Time Taken Comments Blood Pressure 103/70 04/10/2024 12:28 PM AIRPORT RAMP SUPERVISOR Pulse 90 04/10/2024 12:28 PM AIRPORT RAMP SUPERVISOR Temperature 37.5 ??C (99.5 ??F) 04/10/2024 12:[address] Respiratory Rate 16 04/10/2024 12:28 PM AIRPORT RAMP SUPERVISOR Oxygen Saturation 100% 04/10/2024 12:28 PM AIRPORT RAMP SUPERVISOR Inhaled Oxygen Concentration - - Weight 87.1 kg (192 lb) 04/10/2024 12:28 PM AIRPORT RAMP SUPERVISOR Height 185.4 cm (6' 1 ) 04/10/2024 12:28 PM AIRPORT RAMP SUPERVISOR Body Mass Index 25.33 04/10/2024 12:28 PM AIRPORT RAMP SUPERVISOR Plan of Treatment Health Maintenance Due Date Last Done Comments ASCVD LDL 1950 Pneumococcal Vaccine: 65+ Years (1 of 2 - PCV) 02/01/1954 Hepatitis C 02/01/1966 Zoster Vaccines (1 of 2) 02/01/1998 Annual Medicare Wellness Visit 02/01/2013 RSV Immunization or 60+ Years (1 - 1-dose 75+ series) 02/01/2023 COVID-19 Vaccine (1 - season) 2023 Influenza Adult (#1) 2023 03/09/2019, 02/03/2018, 01/28/2017, Additional history exists DTaP, Tdap and Td Vaccines (2 - Td or Tdap) 11/22/2025 11/23/2015 Meningococcal Vaccine Aged Out No galileo yudi eligible based on patient's age to complete this topic RSV Immunizations Under 20 Months Aged Out No longer eligible based on patient's age to complete this topic Medical Devices Explanted Type Area [employer] Commerce Developer Device Identifier Shelf Expiration Date Model / Serial / Lot Stent Ureteral [place] Sci Contour Vl 6fr X 22-30cm - [id number] Implanted:Qty: 1 on 12/05/2023 by Kwaku Martin MD at [facility] Explanted:Qty: 1 on 04/08/2024 by Adelso Mansfield MD at [facility] Stent Right: Ureter [employer] RAJ 07/17/2026 [id number] / / [id number] Procedures Procedure Name Priority Date/Time Associated Diagnosis Comments ECG 12-LEAD STAT 04/10/2024 1:17 PM AIRPORT RAMP SUPERVISOR INFLUENZA A & B STAT 04/10/2024 1:13 PM AIRPORT RAMP SUPERVISOR CORONAVIRUS (COVID 19) STAT 04/10/2024 1:13 PM AIRPORT RAMP SUPERVISOR PROCALCITONIN (PCT) STAT 04/10/2024 1 :09 PM AIRPORT RAMP SUPERVISOR TROPONIN, QUANT STAT 04/10/2024 1:09 PM AIRPORT RAMP SUPERVISOR COMPREHENSIVE METABOLIC PANEL STAT 04/10/2024 1:09 PM AIRPORT RAMP SUPERVISOR CBC W/DIFF AUTOMATED STAT 04/10/2024 1:09 PM AIRPORT RAMP SUPERVISOR XR CHEST PA+LAT STAT 04/10/2024 12:57 PM AIRPORT RAMP SUPERVISOR SURG XR RETROGRD UROGRAPHY Routine 04/08/2024 12:02 PM AIRPORT RAMP SUPERVISOR CYSTOSCOPY STENT INSERTION/REMOVAL/CH LENORA 04/08/2024 11:16 AM AIRPORT RAMP SUPERVISOR BLADDER CANCER, HYDRONEPHROSIS WITH URETERAL STRICTURE N99.89, C67.9, N13.1 Case Notes SCHED BY FAX 03/19/2024 [facility] PHONE ASSESS CYSTOURETHROSCOPY,BI OPSY 04/08/2024 11:16 AM AIRPORT RAMP SUPERVISOR BLADDER CANCER, HYDRONEPHROSIS WITH URETERAL STRICTURE N99.89, C67.9, N13.1 Case Notes SCHED BY FAX 03/19/2024 [facility]CS PHONE ASSESS URINE BACTERIA CULTURE Routine 04/02/2024 2:46 PM AIRPORT RAMP SUPERVISOR Bladder cancer (CMS/HCC HHS/HCC) Hydronephrosis with ureteral stricture from Last 3 Months Results * ECG 12 lead (04/10/2024 1:17 PM AIRPORT RAMP SUPERVISOR) 04/10/2024 1:17 PM AIRPORT RAMP SUPERVISOR Narrative [facility] ([facility]) RAD - 04/10/2024 5:58 PM AIRPORT RAMP SUPERVISOR ?[facility] ? [address] [place] ? Test Date: ?2024-04-10 Pat Name: ? MITCHELL RODRIGUEZ ? Department: ?? 41 ? Room: ? EXAM24 Gender: ? Male ? Compound Filler: ?? : ?1950 ? Requested By: ATTILA DODSON Order Number: [id number] ? Reading MD: ?? Alysa Doreen ? Measurements Intervals ?[place] ? Rate: ? 82 ? P: ?51 SD: ? 145 ?QRS: ?-70 QRSD: ? 149 ?T: ?28 QT: ? 400 ? QTc: ?469 ? Interpretive Statements SINUS RHYTHM WITH OCCASIONAL ECTOPIC PREMATURE COMPLEXES RIGHT BUNDLE BRANCH BLOCK ??[120+ ms QRS DURATION, UPRIGHT V1, 40+ ms S IN I/aVL/V4/V5/V6] LEFT ANTERIOR FASCICULAR BLOCK ??[QRS AXIS <= -45, QR IN I, RS IN II] Compared to ECG 12/06/2023 01:00:38 No significant change ORT RAMP SUPERVISOR Procedure Note Alysa Logan MD - 04/10/[address] Test Date: 2024-04-10 Pat Name: MITCHELL RODRIGUEZ Department: 41 Room: [facility] Gender: Male Compound Filler: : 1950 Requested By: ATTILA DODSON Order Number: [id number] Reading MD: Alysa Logan Measurements Intervals [place] Rate: 82 P: 51 SD: 145 QRS: -70 QRSD: 149 T: 28 QT: 400 QTc: 469 Interpretive Statements SINUS RHYTHM WITH OCCASIONAL ECTOPIC PREMATURE COMPLEXES RIGHT BUNDLE BRANCH BLOCK [120+ ms QRS DURATION, UPRIGHT V1, 40+ ms SIN I/aVL/V4/V5/V6] LEFT ANTERIOR FASCICULAR BLOCK [QRS AXIS <= -45, QR IN I, RS IN II] Compared to ECG 12/06/2023 01:00:38 No significant change ORT RAMP SUPERVISOR us Attila NEWBY ECG ORDERABLES Final Resu lt [facility] ([facility] RAD * CORONAVIRUS (COVID 19) (04/10/2024 1:13 PM AIRPORT RAMP SUPERVISOR) CORONAVIRUS SARS COV 2 RNA NEGATIVE NEGATIVE 04/10/2024 1:35 PM AIRPORT RAMP SUPERVISOR [facility] Comment: NEGATIVE RESULTS DO NOT RULE OUT COVID 19 AND SHOULD NOT BE USED THE SOLE BASIS FOR TREATMENT OR PATIENT MANAGEMENT DECISIONS, INCLUDING INFECTION CONTROL DECISIONS. NEGATIVE RESULTS SHOULD BE CONSIDERED IN THE CONTEXT OF A PATIENT'S RECENT EXPOSURES, HISTORY AND THE PRESENCE OF CLINICAL SIGNS AND SYMPTOMS CONSISTENT WITH COVID 19. THE ID NOW COVID-19 2.0 TEST HAS BEEN AUTHORIZED BY THE FDA UNDER EAU FOR USE BY AUTHORIZED LABORATORIES. PERFORMED BY NUCLEIC ACID AMPLIFICATION FOR MOLECULAR QUALITATIVE DETECTION OF SARS-COV-2. SPECIMEN TYPE NASAL 04/10/2024 1:14 PM AIRPORT RAMP SUPERVISOR [facility] NASAL STRUCTURE / Unknown 04/10/2024 1:13 PM AIRPORT RAMP SUPERVISOR Attila NEWBY MICROBIOLOGY - GENERAL ORD ERABLES Final Result Performing Organization Address [facility] Co de Phone Number [facility] [address] [place] [phone], * (ABNORMAL) INFLUENZA A & B, RAPID (04/10/2024 1:13 PM AIRPORT RAMP SUPERVISOR) SPECIMEN TYPE NASAL 04/10/2024 1:15 PM AIRPORT RAMP SUPERVISOR [facility] INFLUENZA A POSITIVE(A) NEGATIVE 04/10/2024 1:35 PM AIRPORT RAMP SUPERVISOR [facility] INFLUENZA B NEGATIVE NEGATIVE 04/10/2024 1:35 PM AIRPORT RAMP SUPERVISOR [facility] Comment: Interpretation: Positive for Influenza Type A. This test can not distinguish influenza A virus subtypes. For example, this test cannot distinguish influenza infections caused by novel influenza A viruses versus seasonal influenza A viruses. NASAL STRUCTURE / Unknown 04/10/2024 1:13 PM AIRPORT RAMP SUPERVISOR Attila NEWBY MICROBIOLOGY - GENERAL ORD ERABLES Final Result Performing Organization Address [facility] Co de Phone Number [facility] [address] [place] [phone], * PROCALCITONIN (PCT) (04/10/2024 1:09 PM AIRPORT RAMP SUPERVISOR) Procalcitonin 0.07 0.00 - 0.49 NG/ML 04/10/2024 2:10 PM AIRPORT RAMP SUPERVISOR [facility] 04/10/2024 1:09 PM AIRPORT RAMP SUPERVISOR us Attila NEWBY LABORATORY Final Resu lt [facility] [address] [place] [address], * (ABNORMAL) COMPREHENSIVE METABOLIC PANEL (04/10/2024 1:09 PM AIRPORT RAMP SUPERVISOR) Pathologist [facility] GLUCOSE 103(H) 70 - 99 MG/DL 04/10/2024 1:43 PM AIRPORT RAMP SUPERVISOR [facility] BUN 15 7 - 18 MG/DL 04/10/2024 1:43 PM [facility] CREATININE S/P/B 1.31(H) 0.7 - 1.3 MG/DL 04/10/2024 1:43 PM AIRPORT RAMP SUPERVISOR [facility] SODIUM S/P/B 134(L) 136 - 145 MMOL/L 04/10/2024 1:43 PM AIRPORT RAMP SUPERVISOR [facility] POTASSIUM S/P/B 3.8 3.5 - 5.1 MMOL/L 04/10/2024 1:43 PM [facility] CHLORIDE S/P/B 103 97 - 115 MMOL/L 04/10/2024 1:43 PM AIRPORT RAMP SUPERVISOR [facility] CO2 24.7 21 - 32 MMOL/L 04/10/2024 1:43 PM [facility] CALCIUM S/P/B 8.5 8.5 - 10.1 MG/DL 04/10/2024 1:43 PM AIRPORT RAMP SUPERVISOR [facility] BILIRUBIN TOTAL S/P/B 0.5 0.2 - 1.2 MG/DL 04/10/2024 1:43 PM [facility] Comment: THIS ASSAY IS NOT RECOMMENDED FOR PATIENTS UNDERGOING TREATMENT WITH ELTROMBOPAG DUE TO THE POTENTIAL FOR FALSELY ELEVATED RESULTS. TOTAL PROTEIN S/P/B 7.3 6.4 - 8.2 G/DL 04/10/2024 1:43 PM [facility] ALBUMIN S/P/B 3.5 3.4 - 5.0 G/DL 04/10/2024 1:43 PM [facility] AST 18 15 - 37 U/L 04/10/2024 1:43 PM [facility] ALT 23 16 - 60 U/L 04/10/2024 1:43 PM [facility] ALKALINE PHOSPHATASE S/P/B 75 50 - 136 U/L 04/10/2024 1:43 PM [facility] ANION GAP 6.3 2 - 10 MMOL/L 04/10/2024 1:43 PM [facility] BUN CREATININE RATIO 11.5 6 - 26 04/10/2024 1:43 PM [facility] A/G RATIO 0.9(L) 1.0 - 2.0 RATIO 04/10/2024 1:43 PM [facility] GFR ESTIMATE 56(L) >90 ML/MIN/1.7 3 M2 04/10/2024 1:43 PM [facility] Comment: NOTE: eGFR is not calculated for patients <18 years of age or gender unknown. This is an estimated GFR calculation using the new CKD EPI creatinine equation without race and so does not require a correction factor for race. This estimated GFR should not be used for calculating drug doses. 04/10/2024 1:09 PM AIRPORT RAMP SUPERVISOR us Attila NWEBY LABORATORY Final Resu lt [facility] [address] [place] [address], * (ABNORMAL) CBC W/DIFF AUTOMATED (04/10/2024 1:09 PM AIRPORT RAMP SUPERVISOR) [facility] Signature WBC 6.10 4.5 - 11.0 x10'3/uL 04/10/2024 1:23 PM AIRPORT RAMP SUPERVISOR [facility] RBC 3.68(L) 4.70 - 6.10 x10'6/uL 04/10/2024 1:23 PM [facility] HGB 12.1(L) 14.0 - 18.0 G/DL 04/10/2024 1:23 PM [facility] HCT 36.4(L) 43.0 - 54.0 % 04/10/2024 1:23 PM [facility] MCV 98.9(H) 80.0 - 94.0 FL 04/10/2024 1:23 PM [facility] MCH 32.9(H) 27.0 - 31.0 PG 04/10/2024 1:23 PM [facility] MCHC 33.2 32.0 - 36.0 G/DL 04/10/2024 1:23 PM [facility] RDW 15.3(H) 11.5 - 14.5 % 04/10/2024 1:23 PM [facility] PLT 145 130 - 400 x10'3/uL 04/10/2024 1:23 PM [facility] MPV 8.8(L) 9.3 - 12.2 FL 04/10/2024 1:23 PM [facility] DIFFERENTIAL TYPE MANUAL DIFFERENTIAL 04/10/2024 2:12 PM AIRPORT RAMP SUPERVISOR [facility] SEG NEUTROPHILS 74 % 2:12 PM AIRPORT RAMP SUPERVISOR [facility] LYMPHOCYTES 9 % 04/10/2024 2:12 PM AIRPORT RAMP SUPERVISOR [facility] MONOCYTES 15 % 04/10/2024 2:12 PM AIRPORT RAMP SUPERVISOR [facility] BASOPHILS 2 % 04/10/2024 2:12 PM AIRPORT RAMP SUPERVISOR [facility] ABS. NEUTROPHILS 4.51 1.80 - 7.70 x10'3/uL 04/10/2024 2:12 PM AIRPORT RAMP SUPERVISOR [facility] ABS. LYMPHOCYTES 0.55(L) 1.00 - 4.80 x10'3/uL 04/10/2024 2:12 PM AIRPORT RAMP SUPERVISOR [facility] ABS. MONOCYTES 0.92(H) 0.30 - 0.82 x10'3/uL 04/10/2024 2:12 PM AIRPORT RAMP SUPERVISOR [facility] ABS. BASOPHILS 0.12(H) 0.01 - 0.08 x10'3/uL 04/10/2024 2:12 PM AIRPORT RAMP SUPERVISOR [facility] RBC MORPHOLOGY RBC MORPHOLOGY APPEARS NORMAL. SLIDE REVIEWED. 04/10/2024 2:12 PM AIRPORT RAMP SUPERVISOR [facility] PLT EST. ADEQUATE 04/10/2024 2:12 PM [facility] 04/10/2024 1:09 PM AIRPORT RAMP SUPERVISOR us Attila NEWBY LABORATORY Final Resu lt [facility] [address] [place] [address], [place] [phone] * TROPONIN, QUANT (04/10/2024 1:09 PM AIRPORT RAMP SUPERVISOR) TROPONIN I HIGH SENSITIVITY 17 <79 ng/L 04/10/2024 1:43 PM AIRPORT RAMP SUPERVISOR [facility] Comment: HIGH DOSES OF BIOTIN, TROPONIN-SPECIFIC AUTOANTIBODIES, AND ANTIBODY THERAPY CONTAINING HAMA MAY INTERFERE WITH THIS TEST RESULT. CORRELATION TO CLINICAL HISTORY AND PRESENTATION RECOMMENDED. 04/10/2024 1:09 PM AIRPORT RAMP SUPERVISOR us Attila Dodson PA LABORATORY Final Resu lt [facility] [address] [place] [address], [place] [phone] * XR CHEST PA+LAT (04/10/2024 12:57 PM AIRPORT RAMP SUPERVISOR) Anatomical Region Laterality Modality Chest Radiographic Clarissa ging 04/10/2024 12:5 8 PM AIRPORT RAMP SUPERVISOR Impressions 04/10/2024 12:59 PM AIRPORT RAMP SUPERVISOR IMPRESSION: No acute pulmonary findings. Referred By: ?? Interpreted By: Nader Farmer MD, 04/10/2024 12:58 PM Narrative 04/10/2024 12:59 PM AIRPORT RAMP SUPERVISOR [address] [address] Examination: XR CHEST PA+LAT Exam time: 04/10/2024 12:49 PM Indication: Cough and weakness Comparison: Chest 11/28/2023 Findings: Upright PA and lateral views of the chest were obtained. ??The heart size is upper limits of normal/mildly enlarged. ??No vascular congestion. ??No airspace consolidation, pleural effusion, or pneumothorax. Procedure Note Nader Farmer MD - 04/10/[address] [address] Examination: XR CHEST PA+LAT Exam time: 04/10/2024 12:49 PM Indication: Cough and weakness Comparison: Chest 11/28/2023 Findings: Upright PA and lateral views of the chest were obtained. Theheart size is upper limits of normal/mildly enlarged. No vascularcongestion. No airspace consolidation, pleural effusion, orpneumothorax. IMPRESSION: No acute pulmonary findings. Referred By: Interpreted By: Nader Farmer MD, 04/10/2024 12:58 PM us Attila NEWBY [facility] Final Resu lt * SURG XR RETROGRD UROGRAPHY (04/08/2024 12:02 PM AIRPORT RAMP SUPERVISOR) Anatomical Region Laterality Modality Abdomen Radiographic Clarissa ging 04/08/2024 2:41 PM AIRPORT RAMP SUPERVISOR Impressions 04/08/2024 2:41 PM AIRPORT RAMP SUPERVISOR Impression: No radiologic interpretation will be issued. ??The report and documentation of this exam will reside in the patient's permanent medical record and in the attending physician's procedure note. Ordered By: ADELSO MANSFIELD Interpreted By: Marco A Baez MD, 04/08/2024 2:41 PM Narrative 04/08/2024 2:41 PM AIRPORT RAMP SUPERVISOR [place] [address] FLUOROSCOPY CONTROL ONLY Procedure Note Marco A Baez MD - 04/08/2024 [place] [address] FLUOROSCOPY CONTROL ONLY Impression: No radiologic interpretation will be issued. The report and documentationof this exam will reside in the patient's permanent medical record and inthe attending physician's procedure note. Ordered By: ADELSO MANSFIELD Interpreted By: Marco A Baez MD, 04/08/2024 2:41 PM Adelso Mansfield MD IMAGES ONLY Final Result * (ABNORMAL) URINE BACTERIA CULTURE (04/02/2024 2:46 PM AIRPORT RAMP SUPERVISOR) SPEC DESCRIPTION URINE CLEAN CATCH 04/02/2024 2:47 PM AIRPORT RAMP SUPERVISOR [facility] SPECIAL REQUESTS NO SPECIAL REQUEST 04/02/2024 2:47 PM AIRPORT RAMP SUPERVISOR [facility] CULTURE RESULT >100,000 COL/ML STAPH. SPECIES NOT STAPH. AUREUS (A) 04/04/2024 8:02 AM AIRPORT RAMP SUPERVISOR [facility] URINE SPECIMEN OBTAINED BY CLEAN CATCH PROCEDURE / Unknown 04/02/2024 2:46 PM AIRPORT RAMP SUPERVISOR 04/02/2024 3:46 PM AIRPORT RAMP SUPERVISOR Narrative Organism Antibiotic Method Susceptibility Staph. species not staph. aureus NITROFURANTOIN NIRMALA (V ITEK) <=16: Sensitive Staph. species not staph. aureus LEVOFLOXACIN NIRMALA (VIT EK) 4: Resistant Staph. species not staph. aureus OXACILLIN NIRMALA (VIT EK) >=4: Resistant Staph. species not staph. aureus TRIMETH-SULFAMETH. CA C (VITEK) 20: Sensitive Staph. species not staph. aureus TETRACYCLINE NIRMALA (VIT EK) >=16: Resistant Staph. species not staph. aureus VANCOMYCIN NIRMALA (VIT EK) 2: Sensitive Adelso Mansfield MD MICROBIOLOGY - GENERAL ORDERABL ES Final Result [facility] [address] [place] [address], from Last 3 Months Additional Health Concerns Infection Onset Date Last Indicated Influenza - Seasonal 04/10/2024 04/10/2024 Insurance MEDICARE [facility] Care Teams Carpenter Supervisor Relationship Specialty Start Date End Date Nikky Reyes MD [address] [place] [address] PCP - General FAMILY PRACTICE 05/04/21
--- OUTSIDE RECORDS SUMMARY | 2024-04-12 11:31 | XMS_ITS | Encounter Summary ---
Author Organization [facility] Address [address] [place] [address]. 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 HYDROcodone-acet aminophen (NORCO) 5-325 MG tabletIndication s:Acute Pain < 3 Day Supply Take 1 [...] (25 mg total) by mouth nightly. Multiple Vitamins-Mineral s (MULTIVITAMIN ADULTS 50+ OR) Take by mouth daily. rosuvastatin (CRESTOR) 20 MG tablet Take 1 tablet (20 mg total) by mouth nightly at bedtime. sacubitril-valsa rtan (ENTRESTO) 49-51 MG tablet Take 0.5 tablets by mouth 2 (two) times daily. tamsulosin (FLOMAX) 0.4 MG Cap Take 1 capsule (0.4 mg total) by mouth nightly at bedtime. 30 capsule 1 12/05/2023 vitamin C (ASCORBIC ACID) 1000 MG tablet Take 1 tablet (1,000 mg total) by mouth daily. VITAMIN D, ERGOCALCIFEROL, OR Take by mouth daily. polyethylene glycol (GLYCOLAX) packet Take 240 mLs (17 g total) by mouth daily for 7 days. Dissolve powder in 240 mL water 7 each 12/05/2023 12/12/2023 sulfamethoxazole -trimethoprim (BACTRIM DS) 800-160 MG tablet Take 1 tablet by mouth 2 (two) times daily. For uti 11/28/2023 12/05/2023 documented as of this encounter Plan of Treatment Not on file documented as of this encounter Procedures Procedure Name Priority Date/Time Associated Diagnosis Comments HC URINALYSIS AUTO W/O MICRO Routine 11/28/2023 8:45 AM CDT Gross hematuria Bladder tumor URINE BACTERIA CULTURE Routine 11/28/2023 8:45 AM CDT Gross hematuria Bladder tumor BASIC METABOLIC PANEL Routine 11/28/2023 8:43 AM CDT Gross hematuria Bladder tumor CBC W/DIFF AUTOMATED Routine 11/28/2023 8:43 AM CDT Gross hematuria Bladder tumor documented in this encounter Results * (ABNORMAL) URINE BACTERIA CULTURE (11/28/2023 8:45 AM CDT) SPEC DESCRIPTION URINE CLEAN CATCH 11/28/2023 8:53 AM CDT [facility] SPECIAL REQUESTS NO SPECIAL REQUEST 11/28/2023 8:53 AM CDT [facility] CULTURE RESULT >100,000 COL/ML STAPH. SPECIES NOT STAPH. AUREUS (A) 11/30/2023 9:35 AM CDT [facility] URINE SPECIMEN OBTAINED BY CLEAN CATCH PROCEDURE / Unknown 11/28/2023 8:45 AM CDT 11/28/2023 8:56 AM CDT Narrative Organism Antibiotic Method Susceptibility Staph. species not staph. aureus NITROFURANTOIN NIRMALA (V ITEK) <=16: Sensitive Staph. species not staph. aureus LEVOFLOXACIN NIRMALA (VIT EK) 4: Resistant Staph. species not staph. aureus OXACILLIN NIRMALA (VIT EK) >=4: Resistant Staph. species not staph. aureus TRIMETH-SULFAMETH. [place] C (VITEK) 20: Sensitive Staph. species not staph. aureus TETRACYCLINE NIRMALA (VIT EK) >=16: Resistant Staph. species not staph. aureus VANCOMYCIN NIRMALA (VIT EK) 2: Sensitive us Kwaku Martin MD MICROBIOLOGY - GENERAL ORDERABLES Final Result [facility] [address] [place] [address], * (ABNORMAL) URINALYSIS (11/28/2023 8:45 AM CDT) SPECIMEN TYPE URINE CLEAN CATCH 11/28/2023 8:53 AM CDT [facility] COLOR (U) YELLOW 11/28/2023 9:11 AM T [facility] TRANSPARENCY TURBID 11/28/2023 9:11 AM T [facility] SPECIFIC GRAVITY (U) 1.014 1.001 - 1.030 11/28/2023 9:11 AM T [facility] U PH 5.5 5.0 - 9.0 11/28/2023 9:11 AM T [facility] LEUKOCYTES (U) 500(A) NEGATIVE 11/28/2023 9:11 AM T [facility] NITRITES 1+(A) NEGATIVE 11/28/2023 9:11 AM T [facility] PROTEIN RANDOM (U) 70(H) <30 MG/DL 11/28/2023 9:11 AM T [facility] GLUCOSE (U) NORMAL NORMAL MG/DL 11/28/2023 9:11 AM T [facility] KETONES MG/DL (U) NEGATIVE NEGATIVE MG/DL 11/28/2023 9:11 AM T [facility] UROBILINOGEN NORMAL NORMAL MG/DL 11/28/2023 9:11 AM T [facility] BILIRUBIN (U) NEGATIVE NEGATIVE MG/DL 11/28/2023 9:11 AM T [facility] BLOOD (U) 3+(A) NEGATIVE 11/28/2023 9:11 AM T [facility] MUCUS RARE /LPF 11/28/2023 9:11 AM T [facility] WBC/HPF >100(H) <6 /HPF 11/28/2023 9:11 AM T [facility] WBC CLUMPS PRESENT 11/28/2023 9:11 AM CDT [facility] RBC/HPF 21(H) <6 /HPF 11/28/2023 9:11 AM CDT [facility] BACTERIA (U) MODERATE(A) NONE /HPF 11/28/2023 9:11 AM CDT [facility] URINE SPECIMEN OBTAINED BY CLEAN CATCH PROCEDURE / Unknown 11/28/2023 8:45 AM CDT us Kwaku Martin MD URINE ORDERABLES Final Result [facility] [address] [place] [address], * (ABNORMAL) BASIC METABOLIC PANEL (11/28/2023 8:43 AM CDT) GLUCOSE 110(H) 70 - 99 MG/DL 11/28/2023 10:22 AM CDT [facility] BUN 12 7 - 18 MG/DL 11/28/2023 10:22 AM CDT [facility] CREATININE S/P/B 1.19 0.7 - 1.3 MG/DL 11/28/2023 10:22 AM CDT [facility] SODIUM S/P/B 138 136 - 145 MMOL/L 11/28/2023 10:22 AM CDT [facility] POTASSIUM S/P/B 3.5 3.5 - 5.1 MMOL/L 11/28/2023 10:22 AM CDT [facility] CHLORIDE S/P/B 106 97 - 115 MMOL/L 11/28/2023 10:22 AM CDT [facility] CO2 27.4 21 - 32 MMOL/L 11/28/2023 10:22 AM CDT [facility] CALCIUM S/P/B 9.2 8.5 - 10.1 MG/DL 11/28/2023 10:22 AM CDT [facility] ANION GAP 4.6 2 - 10 MMOL/L 11/28/2023 10:22 AM CDT [facility] BUN CREATININE RATIO 10.1 6 - 26 11/28/2023 10:22 AM CDT [facility] GFR ESTIMATE 64(L) >90 ML/MIN/1.7 3 M2 11/28/2023 10:22 AM CDT [facility] Comment: NOTE: eGFR is not calculated for patients <18 years of age or gender unknown. This is an estimated GFR calculation using the new CKD EPI creatinine equation without race and so does not require a correction factor for race. This estimated GFR should not be used for calculating drug doses. 11/28/2023 8:43 AM CDT Kwaku Martin MD LABORATORY Final R esult [facility] [address] [place] [address], * (ABNORMAL) CBC W/DIFF AUTOMATED (11/28/2023 8:43 AM CDT) WBC 7.86 4.5 - 11.0 x10'3/uL 11/28/2023 9:12 AM CDT [facility] RBC 4.08(L) 4.70 - 6.10 x10'6/uL 11/28/2023 9:12 AM CDT [facility] HGB 13.1(L) 14.0 - 18.0 G/DL 11/28/2023 9:12 AM CDT [facility] HCT 39.3(L) 43.0 - 54.0 % 11/28/2023 9:12 AM CDT [facility] MCV 96.3(H) 80.0 - 94.0 FL 11/28/2023 9:12 AM CDT [facility] MCH 32.1(H) 27.0 - 31.0 PG 11/28/2023 9:12 AM CDT [facility] MCHC 33.3 32.0 - 36.0 G/DL 11/28/2023 9:12 AM CDT [facility] RDW 14.4 11.5 - 14.5 % 11/28/2023 9:12 AM CDT [facility] PLT 236 130 - 400 x10'3/uL 11/28/2023 9:12 AM CDT [facility] MPV 9.3 9.3 - 12.2 FL 11/28/2023 9:12 AM CDT [facility] DIFFERENTIAL TYPE AUTOMATED DIFFERENTIAL 11/28/2023 9:12 AM CDT [facility] NEUTROPHILS % 67.3 % 11/28/2023 9:12 AM CDT [facility] LYMPHOCYTES % 17.9 % 11/28/2023 9:12 AM CDT [facility] MONOCYTES % 11.6 % 11/28/2023 9:12 AM CDT [facility] EOSINOPHILS 2.2 % 11/28/2023 9:12 AM CDT [facility] BASOPHILS 0.6 % 11/28/2023 9:12 AM CDT [facility] IMMATURE GRANS % 0.4 % 11/28/19 9:12 AM CDT [facility] ABS. NEUTROPHILS 5.29 1.80 - 7.70 x10'3/uL 11/28/2023 9:12 AM CDT [facility] ABS. LYMPHOCYTES 1.41 1.00 - 4.80 x10'3/uL 11/28/2023 9:12 AM CDT [facility] ABS. MONOCYTES 0.91(H) 0.30 - 0.82 x10'3/uL 11/28/2023 9:12 AM CDT [facility] ABS. EOSINOPHILS 0.17 0.04 - 0.54 x10'3/uL 11/28/2023 9:12 AM CDT [facility] ABS. BASOPHILS 0.05 0.01 - 0.08 x10'3/uL 11/28/2023 9:12 AM CDT [facility] ABS. IMMATURE GRANULOCYTES 0.03 0.00 - 0.49 x10'3/uL 11/28/2023 9:12 AM CDT [facility] 11/28/2023 8:43 AM CDT us Kwaku Martin MD LABORATORY Final R esult [facility] [address] [place] [address], documented in this encounter Visit Diagnoses Diagnosis Gross hematuria Bladder tumor Neoplasm of unspecified nature of bladder documented in this encounter Care Teams Law Researcher Relationship Specialty Start Date End Date Nikky Reyes MD [address] [place] [address] PCP - General FAMILY PRACTICE 05/04/21 documented as of this encounter
--- OUTSIDE RECORDS SUMMARY | 2024-04-12 11:31 | XMS_ITS | Encounter Summary ---
Author Organization [facility] Address [address] [place] [address]. 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 ??There is no acute cardiopulmonary process. Referred By: ?? Interpreted By: Richard Chaparro MD, 11/28/2023 9:57 AM Narrative 11/28/2023 9:58 AM CDT [address] [address] PROCEDURE: ??XR CHEST PA+LAT. ??11/28/2023 8:53 AM. TECHNIQUE: ??2 views (PA and Lateral) of the chest were performed. HISTORY: ??Preop evaluation. COMPARISON: ??None. FINDINGS: ?? Support Devices: ??None. Cardiac Silhouette/Mediastinum/Shirley: ??The cardiac, mediastinal, and hilar contours are within normal limits for age. ??A coronary artery stent is present Lungs/Pleural Spaces: ??The lungs and pleural spaces are clear. Chest Wall/Diaphragm/Upper Abdomen: Multilevel degenerative changes of the thoracic spine ??The remaining thoracic musculoskeletal structures and the upper abdomen are within normal limits for age. Procedure Note Richard Chaparro MD - 11/28/[address] [address] PROCEDURE: XR CHEST PA+LAT. 11/28/2023 8:53 AM. TECHNIQUE: 2 views (PA and Lateral) of the chest were performed. HISTORY: Preop evaluation. COMPARISON: None. FINDINGS: Support Devices: None. Cardiac Silhouette/Mediastinum/Shirley: The cardiac, mediastinal, and hilarcontours are within normal limits for age. A coronary artery stent ispresent Lungs/Pleural Spaces: The lungs and pleural spaces are clear. Chest Wall/Diaphragm/Upper Abdomen: Multilevel degenerative changes of thethoracic spine The remaining thoracic musculoskeletal structures and theupper abdomen are within normal limits for age. IMPRESSION: 1. There is no acute cardiopulmonary process. Referred By: Interpreted By: Richard Chaparro MD, 11/28/2023 9:57 AM us Kwaku Martin MD GENERAL IMAGING Final R esult documented in this encounter Visit Diagnoses Diagnosis Preop examination Preoperative examination, unspecified Bladder tumor Neoplasm of unspecified nature of bladder Gross hematuria documented in this encounter Care Teams Ese Teacher Relationship Specialty Start Date End Date Nikky Reyes MD [address] [place] [address] PCP - General FAMILY PRACTICE 05/04/21 documented as of this encounter
--- OUTSIDE RECORDS SUMMARY | 2024-04-12 11:31 | XMS_ITS | Encounter Summary ---
Author Organization [facility] Address [address] [place] [address]. 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
--- OUTSIDE RECORDS SUMMARY | 2024-04-12 11:31 | XMS_ITS | Encounter Summary ---
Author Organization [facility] Address [address] [place] [address]. [place], [place] [address] [place] [address] Care Team Providers Care Press Clippings Cutter And Paster Name Role Phone Nikky Reyes MD Primary Care Provider Encounter Details Date Type Department Care Team (Late st Contact Info) Description 11/27/2023 Prep for Procedure [facility] [address] [facility] [place], [place] [id number] Kwaku Martin MD 3 [facility] [address] [place], [place] [id number] Social History Tobacco Use Types Packs/Day Years Used Date Smoking Tobacco: Former Cigarettes 2 15 S tarted: 1967 Smokeless Tobacco: Never Alcohol Use Standard Drinks/Week Comments Not Currently 0 (1 standard drink = 0.6 oz pur e alcohol) sober 43 years Sex and Gender Information Value Date Recorded Sex Assigned at Not on file 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 ??There is no acute cardiopulmonary process. Referred By: ?? Interpreted By: Richard Chaparro MD, 11/28/2023 9:57 AM Narrative 11/28/2023 9:58 AM CDT [address] [address] PROCEDURE: ??XR CHEST PA+LAT. ??11/28/2023 8:53 AM. [...] Procedure Note Richard Chaparro MD - 11/28/[address] [address] PROCEDURE: XR CHEST PA+LAT. 11/28/2023 8:53 AM. 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
--- OUTSIDE RECORDS SUMMARY | 2024-04-12 11:31 | XMS_ITS | Encounter Summary ---
Author Organization [facility] Address [address] [place] [address]. 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
--- OUTSIDE RECORDS SUMMARY | 2024-04-12 11:31 | XMS_ITS | Encounter Summary ---
Author Organization [facility] Address [address] [place] [address]. 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
--- OUTSIDE RECORDS SUMMARY | 2024-04-12 11:31 | XMS_ITS | Encounter Summary ---
Author Organization [facility] Address [address] [place] [address]. [place], [place] [id number] [place] [id number] Care Team Providers Care Security Auditor Name Role Phone Nikky Reyes MD Primary Care Provider Reason for Referral * Imaging (Emergency) - New Request Specialty Diagnoses / Procedures Referred By Leatha mejia Referred To Contact RADIOLOGY Procedures CT ABD+PEL WO CON Richard Osborne MD,PHD [address] [place] [address] Phone: tel: fax: Referral ID Status Reason Start Date Expiration Date V isits Requested Visits Authorized [id number] New Request 12/06/2023 12/05/2024 1 1 Reason for Visit * Reason Comments Urinary Retention * Auth/Cert (Routine) Specialty Diagnoses / Procedures Referred By Leatha mejia Referred To Contact Diagnoses GROSS HEMATURIA, 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, 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 Procedures CYSTOSCOPY, TRANSURETHRAL RESECTION BLADDER TUMOR, BILATERAL RETROGRADE PYELOGRAM, LEBRON CATHETER PLACEMENT, INTRAVESICAL INSTILLATION OF GEMCITABINE POSSIBLE URETEROSCOPY, POSSIBLE URETERAL STENT PLACEMENT Kwaku Martin MD 3 [facility] [address] [place] [address] Phone: tel: fax: Referral ID Status Reason Start Date Expiration Date Visits Re quested Visits Authorized [id number] 1 1 Encounter Details Date Type Department Care Team (Late st Contact Info) Description 12/06/2023 12:02 AM CDT - 12/06/2023 3:06 AM CDT Emergency [facility] [place] [address] Richard Osborne MD,PHD [address] [place] [address] [phone] Urinary Retention Discharge Disposition: Home or Self Care (Routine [...] on file 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 Gender Identity Not on file Sexual Orientation Not on file documented as of this encounter Last Filed Vital Signs Vital Sign Reading Time Taken Comments Blood Pressure 104/60 12/06/2023 12:35 AM CDT Pulse 80 12/06/2023 12:35 AM CDT Temperature 36.9 ??C (98.4 ??F) 12/05/2023 11:55 PM C DT Respiratory Rate 16 12/06/2023 12:35 AM CDT Oxygen Saturation 96% 12/06/2023 12:35 AM CDT Inhaled Oxygen Concentration - - Weight 88.5 kg (195 lb) 12/05/2023 11:55 PM CDT Height 185.4 cm (6' 1 ) 12/05/2023 11:55 PM CDT Body Mass Index 25.73 12/05/2023 11:55 PM CDT documented in this encounter Discharge Instructions * Attachments The following attachments cannot be sent through Care Everywhere. * Lebron Catheter, Male (Swedish) documented in this encounter Medications at Time of Discharge [...] 240 mL water 7 each 12/05/2023 12/12/2023 documented as of this encounter ED Notes * Richard Osborne MD,PHD - 12/06/2023 1:06 AM CDT EMERGENCY DEPARTMENT ENCOUNTER Chief Complaint Chief Complaint Patient presents with Urinary Retention History of Present Illness 73-year-old male presenting to the emergency department with a chief complaint of urinary retention. The patient recently had surgery on his bladder and kidnies today. He reports since having the procedure he has been having difficulty urinating. The last time the patient urinated was after surgerywhen his catheter was taken out, but states he has drank seven bottles of water and has been unableto pass anything, and when he attempts his pain worsens. Physical Exam Filed Vitals: 12/05/23 2355 12/06/23 0035 BP: 117/74 104/60 Pulse: 85 80 Resp: 18 16 Temp: 98.4 ??F (36.9 ??C) TempSrc: Temporal SpO2: 96% 96% Weight: 88.5 kg (195 lb) Height: 1.854 m (6' 1 ) CONSTITUTIONAL: Patient is awake, alert, mild distress CARDIOVASCULAR: Regular rate and rhythm RESPIRATORY: No respiratory distress or tachypnea, no wheezing or crackles ABDOMEN: Soft, localizes to the left flank there is no particular tender NEUROLOGIC: GCS 15, CN2-12 grossly intact, moves all extremities EXTREMITIES: Warm, no edema Diagnostic Studies / Procedures ELECTROCARDIOGRAMS: EKG, TIME 0100 Rate 73, normal sinus rhythm, PVC x 1, left axis deviation, intraventricular conduction delay, no ST elevations Interpretation by me: non-specific repolarization abnormality Rhythm strip interpreted by me: Rate 73, normal sinus rhythm, no ectopy LABORATORY STUDIES: Results for orders placed or performed during the hospital encounter of 12/06/23 CBC W/DIFF AUTOMATED Result Value Ref Range WBC 15.44 (H) 4.5 - 11.0 x10'3/uL RBC 4.05 (L) 4.70 - 6.10 x10'6/uL HGB 13.0 (L) 14.0 - 18.0 G/DL HCT 38.8 (L) 43.0 - 54.0 % MCV 95.8 (H) 80.0 - 94.0 FL MCH 32.1 (H) 27.0 - 31.0 PG MCHC 33.5 32.0 - 36.0 G/DL RDW 14.4 11.5 - 14.5 % PLT 232 130 - 400 x10'3/uL MPV 9.5 9.3 - 12.2 FL DIFFERENTIAL TYPE AUTOMATED DIFFERENTIAL NEUTROPHILS % 84.1 % LYMPHOCYTES % 7.6 % MONOCYTES % 7.1 % EOSINOPHILS 0.1 % BASOPHILS 0.3 % IMMATURE GRANS % 0.8 % ABS. NEUTROPHILS 12.98 (H) 1.80 - 7.70 x10'3/uL ABS. LYMPHOCYTES 1.18 1.00 - 4.80 x10'3/uL ABS. MONOCYTES 1.10 (H) 0.30 - 0.82 x10'3/uL ABS. EOSINOPHILS 0.01 (L) 0.04 - 0.54 x10'3/uL ABS. BASOPHILS 0.04 0.01 - 0.08 x10'3/uL ABS. IMMATURE GRANULOCYTES 0.13 0.00 - 0.49 x10'3/uL COMPREHENSIVE METABOLIC PANEL Result Value Ref Range GLUCOSE 152 (H) 70 - 99 MG/DL BUN 21 (H) 7 - 18 MG/DL CREATININE S/P/B 1.64 (H) 0.7 - 1.3 MG/DL SODIUM S/P/B 136 136 - 145 MMOL/L POTASSIUM S/P/B 4.2 3.5 - 5.1 MMOL/L CHLORIDE S/P/B 106 97 - 115 MMOL/L CO2 23.1 21 - 32 MMOL/L CALCIUM S/P/B 9.1 8.5 - 10.1 MG/DL BILIRUBIN TOTAL S/P/B 0.9 0.2 - 1.2 MG/DL TOTAL PROTEIN S/P/B 7.8 6.4 - 8.2 G/DL ALBUMIN S/P/B 3.6 3.4 - 5.0 G/DL AST 15 15 - 37 U/L ALT 19 16 - 60 U/L ALKALINE PHOSPHATASE S/P/B 76 50 - 136 U/L ANION GAP 6.9 2 - 10 MMOL/L BUN CREATININE RATIO 12.8 6 - 26 A/G RATIO 0.9 (L) 1.0 - 2.0 RATIO GFR ESTIMATE 43 (L) >90 ML/MIN/1.73 M2 TROPONIN, QUANT Result Value Ref Range TROPONIN I HIGH SENSITIVITY 11 <79 ng/L URINALYSIS Result Value Ref Range Specimen Type URINE CLEAN CATCH COLOR (U) LIGHT ORANGE TRANSPARENCY EXTREMELY TURBID SPECIFIC GRAVITY (U) 1.012 1.001 - 1.030 U PH 6.0 5.0 - 9.0 LEUKOCYTES (U) 500 (A) NEGATIVE NITRITES NEGATIVE NEGATIVE PROTEIN RANDOM (U) 200 (H) <30 MG/DL GLUCOSE (U) NORMAL NORMAL MG/DL KETONES MG/DL (U) NEGATIVE NEGATIVE MG/DL UROBILINOGEN NORMAL NORMAL MG/DL BILIRUBIN (U) NEGATIVE NEGATIVE MG/DL BLOOD (U) 3+ (A) NEGATIVE MUCUS MANY /LPF WBC/HPF >100 (H) <6 /HPF RBC/HPF >100 (H) <6 /HPF IMAGING STUDIES CT ABD+PEL WO CON Final Result by User, [id number] (12/05 012) [facility] [address] [place], [place] [address] EXAMINATION: CT Abdomen and Pelvis without intravenous contrast, axial images with 2D coronal and sagittal reconstruction. INDICATION: Right flank pain, ureteral stent placed today, unable to urinate. Difficulty urination after tumor removal in the bladder. COMPARISON: CT abdomen and pelvis with and without contrast 05/04/2021. FINDINGS: Mild atelectasis posteriorly in the lung bases. No pleural or pericardial effusions. Heart size is normal. Coronary artery calcifications with questionable left coronary artery stent. Spleen is upper normal in size with the spleen measuring 13 cm in length. Decrease in size of simple cyst in the lateral subcapsular upper right lobe of liver, currently 1.9 x 1.5 cm and previously 2.4 x 2.2 cm and minimal enlargement of a 1.1 cm cyst in the anterior mid right lobe of liver cyst to 07/18/2021; no follow-up imaging is recommended. Few other tiny cysts seen in the right lobe of liver on previous postcontrast exam are not well seen on today's noncontrast study. No suspicious liver lesion. Liver is normal in size. Postcholecystectomy clips with no significant biliary dilatation. Pancreas and bilateral adrenal glands are unremarkable. Left kidney remains unremarkable. Interval placement of double pigtail right ureteral stent since prior exam with proximal limb in the upper pole infundibulum of the right kidney and distal limb in the bladder with no hydronephrosis. Bladder is decompressed by Lebron catheter, significantly limiting evaluation. Foci of gas in the bladder may be iatrogenic from Lebron catheter or from recent tumor will. Limited evaluation for wall thickening of the bladder due to nondistention. Dystrophic calcifications and normal sized prostate. Stranding in the mesenteric fat adjacent to the bladder may be related to postsurgical changes, with cystitis or other inflammatory process is less likely. Trace fluid in the pelvis may be related to postoperative change are maybe inflammatory. Tiny hiatal hernia. Appendix is normal. Colonic diverticulosis without diverticulitis. No significant bowel wall thickening or bowel obstruction. No ascites or adenopathy. Ectasia/borderline or mild aneurysm of the upper abdominal aorta measuring approximately 2.6 x 3 cm with distal tapering. 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 Slight ectasia left common iliac artery measuring 1.4 cm. No acute osseous abnormality. Incidental hemangioma in the L5 vertebral body. Tiny lucencies in L4 vertebral body are too small to definitely characterize but also most likely represent tiny hemangiomas. No acute osseous abnormality. IMPRESSION: 1. There is a right ureteral stent in place without significant right hydronephrosis or significant abnormality involving the right kidney. 2. Bladder is decompressed by Lebron catheter with air in the bladder likely iatrogenic from the Lebron catheter or from recent surgery. Limited evaluation of the bladder wall thickening or other abnormalities given the nondistention and decompression by the catheter. 2. Mesenteric stranding surrounding the bladder with trace fluid in the pelvis may be related to postsurgical edema/inflammation/reactive change, cystitis or other inflammatory processes not excluded. Please correlate clinically. 4. Few waxing and waning cysts in the liver, better seen on prior postcontrast CT exam of 05/04/2021; no follow-up imaging is recommended. 5. Spleen is upper normal in size. 6. Tiny hiatal hernia. Colonic diverticulosis without diverticulitis. 7. 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 Recommend follow-up every 3 years. 8. Coronary artery calcifications with questionable stent in the left anterior descending coronary artery. This CT exam was performed using one or more of the following dose reduction techniques: automated exposure control, adjustment of the mA and/or kV according to patient size, and/or use of iterative reconstruction technique. Referred By: Interpreted By: Judith Mcdaniel MD, 12/06/2023 12:44 AM ED Course / Medical Decision Making Patient presenting with a chief complaint of urinary retention. The patient has multiple chronic illnesses impacting their care and general health, including bladder tumor, cancer, congestive heart failure, coronary heart disease, depression, heart attack, hypercholesteremia, hypertension and hyperthyroidism. I reviewed the patient's labs, which are significant for an JENNIFER with a BUN and creatinine of 21 and1.64, respectively. His CBC is notable for leukocytosis and borderline microcytic anemia. High-sensitivity troponin is not elevated. I reviewed the radiologist's interpretation of the patient's radiologic diagnostics which is significant for pyuria and hematuria I independently reviewed the patient's EKG, my interpretation is above. I additionally interpreted the patient's rhythm strip, as above I reviewed old medical records, including details of the patient's outpatient surgical history within the last 24 hours, which includes a bladder tumor excision and placement of a right ureteral stent I interpreted the patient's pulse oximeter at rest, which is 96% on room air, which is normal and determined that this patient is not hypoxic Medication management: Ondansetron was administered for symptomatic relief of nausea and vomiting The patient's pain significantly improves following Lebron catheterization. There is no blood or clots within the voided urine. I discussed the patient with Dr. Casillas (urology paper production engineer) in consultation. I discussed the results of the patient's CT, labs (including JENNIFER, hematuria, pyuria, leukocytosis). It was assessed by Dr. Casillas that the patient was stable for discharge home in the absence of hematuria. Clinical Impression Urinary retention (Primary) Disposition: Discharge home Patient provided with printed and verbal discharge care instructions and was instructed to return to the emergency department immediately with worsening symptoms or new worrisome symptoms. Patient was instructed to follow-up with his urologist within 1 week for further evaluation and treatment. Diagnoses & treatment discussed with patient Patient expressed understanding and agreed. Richard Osborne MD,PHD 12/06/23 [id number] * Emily Simpson RN - 12/05/2023 11:53 PM CDT Pt ambulated to triage with cc n/v and difficulty urination after tumor removed in bladder renal stents and is unable to urinate. Pt stated his pain worsens when he attempted to urination. documented in this encounter Plan of Treatment Not on file documented as of this encounter Procedures Procedure Name Priority Date/Time Associated Diagnosis Comments ECG 12-LEAD Routine 12/06/2023 1:[address] ABD+PEL WO CON STAT 12/06/2023 12: 44 AM CDT COMPREHENSIVE METABOLIC PANEL STAT 12/06/2023 12:15 AM CDT CBC W/DIFF AUTOMATED STAT 12/06/2023 12:15 AM CDT TROPONIN, QUANT STAT 12/06/2023 12:15 AM CDT HC URINALYSIS AUTO W/O MICRO STAT 12/06/2023 12:00 AM CDT documented in this encounter Results * ECG 12 lead (12/06/2023 1:00 AM CDT) 12/06/2023 1:00 AM CDT Narrative [facility] ([facility] RAD - 12/06/2023 6:09 PM CDT ?[facility] ? [address] [place] ? Test Date: ?2023-12-06 Pat Name: ? MITCHELL RODRIGUEZ ? Department: ?? 41 ? Room: ? Gender: ? Male ? 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 Requested By: OUMAR ERNST Order Number: [id number] ? Reading MD: ?? Marino Arenas ? Measurements Intervals ?Rifle ? Rate: ? 73 ? P: ?39 NV: ? 154 ?QRS: ?-74 QRSD: ? 162 ?T: ?58 QT: ? 420 ? QTc: ?464 ? Interpretive Statements SINUS RHYTHM WITH OCCASIONAL VENTRICULAR PREMATURE COMPLEXES LEFT AXIS DEVIATION ??[QRS AXIS < -30] RIGHT BUNDLE BRANCH BLOCK ??[120+ ms QRS DURATION, UPRIGHT V1, 40+ ms S IN I/aVL/V4/V5/V6] Left Anterior Fascicular Block Compared to ECG 12/05/2023 07:41:17 Ventricular premature complex(es) now present Left-axis deviation now present Sinus bradycardia no longer present Procedure Note Marino Arenas MD - 12/06/[address]23 [facility] [address] Test Date: 2023-12-06 Pat Name: MITCHELL RODRIGUEZ Department: 41 Room: Gender: Male Farm Technician: [id number] : 1950 Requested By: OUMAR ERNST Order Number: [id number] Reading MD: Marino Arenas Measurements Intervals Rifle Rate: 73 P: 39 NV: 154 QRS: -74 QRSD: 162 T: 58 QT: 420 QTc: 464 Interpretive Statements SINUS RHYTHM WITH OCCASIONAL VENTRICULAR PREMATURE COMPLEXES LEFT AXIS DEVIATION [QRS AXIS < -30] RIGHT BUNDLE BRANCH BLOCK [120+ ms QRS DURATION, UPRIGHT V1, 40+ ms SIN I/aVL/V4/V5/V6] Left Anterior Fascicular Block Compared to ECG 12/05/2023 07:41:17 Ventricular premature complex(es) now present Left-axis deviation now present Sinus bradycardia no longer present us Oumar [facility] ECG ORDERABLES Final Resul t [facility] * CT ABD+PEL WO CON (12/06/2023 12:44 AM CDT) Anatomical Region Laterality Modality Abdomen Computed Tomogra phy 12/06/2023 12:4 4 AM CDT Impressions 12/06/2023 1:22 AM CDT IMPRESSION: 1. ??There is a right ureteral stent in place without significant right hydronephrosis or significant abnormality involving the right kidney. 2. ??Bladder is decompressed by Lebron catheter with air in the bladder likely iatrogenic from the Lebron catheter or from recent surgery. ??Limited evaluation of the bladder wall thickening or other abnormalities given the nondistention and decompression by the catheter. 2. ??Mesenteric stranding surrounding the bladder with trace fluid in the pelvis may be related to postsurgical edema/inflammation/reactive change, cystitis or other inflammatory processes not excluded. ??Please correlate clinically. 4. ??Few waxing and waning cysts in the liver, better seen on prior postcontrast CT exam of 05/04/2021; no follow-up imaging is recommended. 5. ??Spleen is upper normal in size. 6. ??Tiny hiatal hernia. ??Colonic diverticulosis without diverticulitis. 7. 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 ??Recommend follow-up every 3 years. 8. ??Coronary artery calcifications with questionable stent in the left anterior descending coronary artery. This CT exam was performed using one or more of the following dose reduction techniques: ??automated exposure control, adjustment of the mA and/or kV according to patient size, and/or use of iterative reconstruction technique. Referred By: ?? Interpreted By: Judith Mcdaniel MD, 12/06/2023 12:44 AM Narrative 12/06/2023 1:22 AM CDT [place] [address] EXAMINATION: CT Abdomen and Pelvis without intravenous contrast, axial images with 2D coronal and sagittal reconstruction. INDICATION: Right flank pain, ureteral stent placed today, unable to urinate. ??Difficulty urination after tumor removal in the bladder. COMPARISON: CT abdomen and pelvis with and without contrast 05/04/2021. FINDINGS: Mild atelectasis posteriorly in the lung bases. ??No pleural or pericardial effusions. Heart size is normal. ??Coronary artery calcifications with questionable left coronary artery stent. ??Spleen is upper normal in size with the spleen measuring 13 cm in length. ??Decrease in size of simple cyst in the lateral subcapsular upper right lobe of liver, currently 1.9 x 1.5 cm and previously 2.4 x 2.2 cm and minimal enlargement of a 1.1 cm cyst in the anterior mid right lobe of liver cyst to 07/18/2021; no follow-up imaging is recommended. ??Few other tiny cysts seen in the right lobe of liver on previous postcontrast exam are not well seen on today's noncontrast study. ??No suspicious liver lesion. ??Liver is normal in size. Postcholecystectomy clips with no significant biliary dilatation. ??Pancreas and bilateral adrenal glands are unremarkable. ??Left kidney remains unremarkable. ??Interval placement of double pigtail right ureteral stent since prior exam with proximal limb in the upper pole infundibulum of the right kidney and distal limb in the bladder with no hydronephrosis. ??Bladder is decompressed by Lebron catheter, significantly limiting evaluation. ??Foci of gas in the bladder may be iatrogenic from Lebron catheter or from recent tumor will. ??Limited evaluation for wall thickening of the bladder due to nondistention. ??Dystrophic calcifications and normal sized prostate. ??Stranding in the mesenteric fat adjacent to the bladder may be related to postsurgical changes, with cystitis or other inflammatory process is less likely. ??Trace fluid in the pelvis may be related to postoperative change are maybe inflammatory. Tiny hiatal hernia. ??Appendix is normal. ??Colonic diverticulosis without diverticulitis. ??No significant bowel wall thickening or bowel obstruction. ??No ascites or adenopathy. 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 ??Slight ectasia left common iliac artery measuring 1.4 cm. ??No acute osseous abnormality. ??Incidental hemangioma in the L5 vertebral body. ??Tiny lucencies in L4 vertebral body are too small to definitely characterize but also most likely represent tiny hemangiomas. ??No acute osseous abnormality. Procedure Note Judith Mcdaniel MD - 12/06/[address] [address] EXAMINATION: CT Abdomen and Pelvis without intravenous contrast, axialimages with 2D coronal and sagittal reconstruction. INDICATION: Right flank pain, ureteral stent placed today, unable tourinate. Difficulty urination after tumor removal in the bladder. COMPARISON: CT abdomen and pelvis with and without contrast 05/04/2021. FINDINGS: Mild atelectasis posteriorly in the lung bases. No pleural orpericardial effusions. Heart size is normal. Coronary arterycalcifications with questionable left coronary artery stent. Spleen isupper normal in size with the spleen measuring 13 cm in length. Decreasein size of simple cyst in the lateral subcapsular upper right lobe ofliver, currently 1.9 x 1.5 cm and previously 2.4 x 2.2 cm and minimalenlargement of a 1.1 cm cyst in the anterior mid right lobe of liver cystto 07/18/2021; no follow-up imaging is recommended. Few other tiny cystsseen in the right lobe of liver on previous postcontrast exam are not wellseen on today's noncontrast study. No suspicious liver lesion. Liver isnormal in size. Postcholecystectomy clips with no significant biliary dilatation.Pancreas and bilateral adrenal glands are unremarkable. Left kidneyremains unremarkable. Interval placement of double pigtail right ureteralstent since prior exam with proximal limb in the upper pole infundibulumof the right kidney and distal limb in the bladder with no hydronephrosis.Bladder is decompressed by Lebron catheter, significantly limitingevaluation. Foci of gas in the bladder may be iatrogenic from Foleycatheter or from recent tumor will. Limited evaluation for wallthickening of the bladder due to nondistention. Dystrophic calcificationsand normal sized prostate. Stranding in the mesenteric fat adjacent tothe bladder may be related to postsurgical changes, with cystitis or otherinflammatory process is less likely. Trace fluid in the pelvis may berelated to postoperative change are maybe inflammatory. Tiny hiatal hernia. Appendix is normal. Colonic diverticulosis withoutdiverticulitis. No significant bowel wall thickening or bowelobstruction. No ascites or adenopathy. Ectasia/borderline or mildaneurysm of the upper abdominal aorta measuring approximately 2.6 x 3 cmwith distal tapering. Mild scattered calcifications in the abdominalaorta and iliac arteries with ectasia/mild aneurysm of right common iliacartery measuring 1.5 cm. Slight ectasia left common iliac arterymeasuring 1.4 cm. No acute osseous abnormality. Incidental hemangioma inthe L5 vertebral body. Tiny lucencies in L4 vertebral body are too smallto definitely characterize but also most likely represent tinyhemangiomas. No acute osseous abnormality. IMPRESSION: 1. There is a right ureteral stent in place without significant righthydronephrosis or significant abnormality involving the right kidney. 2. Bladder is decompressed by Lebron catheter with air in the bladderlikely iatrogenic from the Lebron catheter or from recent surgery. Limitedevaluation of the bladder wall thickening or other abnormalities given thenondistention and decompression by the catheter. 2. Mesenteric stranding surrounding the bladder with trace fluid in thepelvis may be related to postsurgical edema/inflammation/reactive change,cystitis or other inflammatory processes not excluded. Please correlateclinically. 4. Few waxing and waning cysts in the liver, better seen on priorpostcontrast CT exam of 05/04/2021; no follow-up imaging is recommended. 5. Spleen is upper normal in size. 6. Tiny hiatal hernia. Colonic diverticulosis without diverticulitis. 7. 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 Recommend follow-up every 3 years. 8. Coronary artery calcifications with questionable stent in the leftanterior descending coronary artery. This CT exam was performed using one or more of the following dosereduction techniques: automated exposure control, adjustment of the mAand/or kV according to patient size, and/or use of iterativereconstruction technique. Referred By: Interpreted By: Judith Mcdaniel MD, 12/06/2023 12:44 AM us Richard Osborne MD,PHD CT Final Resu lt * TROPONIN, QUANT (12/06/2023 12:15 AM CDT) TROPONIN I HIGH SENSITIVITY 11 <79 ng/L 12/06/2023 12:53 AM CDT [facility] Comment: HIGH DOSES OF BIOTIN, TROPONIN-SPECIFIC AUTOANTIBODIES, AND ANTIBODY THERAPY CONTAINING HAMA MAY INTERFERE WITH THIS TEST RESULT. CORRELATION TO CLINICAL HISTORY AND PRESENTATION RECOMMENDED. 12/06/2023 12:1 5 AM CDT [facility] Final Resul t [facility] [address] [place] [address], * (ABNORMAL) COMPREHENSIVE METABOLIC PANEL (12/06/2023 12:15 AM CDT) Pathologist [facility] [place] GLUCOSE 152(H) 70 - 99 MG/DL 12/06/2023 12:53 AM CDT [facility] BUN 21(H) 7 - 18 MG/DL 12/06/2023 12:53 AM CDT [facility] CREATININE S/P/B 1.64(H) 0.7 - 1.3 MG/DL 12/06/2023 12:53 AM CDT [facility] SODIUM S/P/B 136 136 - 145 MMOL/L 12/06/2023 12:53 AM CDT [facility] POTASSIUM S/P/B 4.2 3.5 - 5.1 MMOL/L 12/06/2023 12:53 AM CDT [facility] CHLORIDE S/P/B 106 97 - 115 MMOL/L 12/06/2023 12:53 AM CDT [facility] CO2 23.1 21 - 32 MMOL/L 12/06/2023 12:53 AM CDT [facility] CALCIUM S/P/B 9.1 8.5 - 10.1 MG/DL 12/06/2023 12:53 AM CDT [facility] BILIRUBIN TOTAL S/P/B 0.9 0.2 - 1.2 MG/DL 12/06/2023 12:53 AM CDT [facility] Comment: THIS ASSAY IS NOT RECOMMENDED FOR PATIENTS UNDERGOING TREATMENT WITH ELTROMBOPAG DUE TO THE POTENTIAL FOR FALSELY ELEVATED RESULTS. TOTAL PROTEIN S/P/B 7.8 6.4 - 8.2 G/DL 12/06/2023 12:53 AM CDT [facility] ALBUMIN S/P/B 3.6 3.4 - 5.0 G/DL 12/06/2023 12:53 AM CDT [facility] AST 15 15 - 37 U/L 12/06/2023 12:53 AM CDT [facility] ALT 19 16 - 60 U/L 12/06/2023 12:53 AM CDT [facility] ALKALINE PHOSPHATASE S/P/B 76 50 - 136 U/L 12/06/2023 12:53 AM CDT [facility] ANION GAP 6.9 2 - 10 MMOL/L 12/06/2023 12:53 AM CDT [facility] BUN CREATININE RATIO 12.8 6 - 26 12/06/2023 12:53 AM T [facility] A/G RATIO 0.9(L) 1.0 - 2.0 RATIO 12/06/2023 12:53 AM T [facility] GFR ESTIMATE 43(L) >90 ML/MIN/1.7 3 M2 12/06/2023 12:53 AM T [facility] Comment: NOTE: eGFR is not calculated for patients <18 years of age or gender unknown. This is an estimated GFR calculation using the new CKD EPI creatinine equation without race and so does not require a correction factor for race. This estimated GFR should not be used for calculating drug doses. 12/06/2023 12:1 5 AM CDT [facility] Final Resul t [facility] [address] [place] [address], [place] [phone] * (ABNORMAL) CBC W/DIFF AUTOMATED (12/06/2023 12:15 AM CDT) [facility] WBC 15.44(H) 4.5 - 11.0 x10'3/uL 12/06/2023 12:54 AM CDT [facility] RBC 4.05(L) 4.70 - 6.10 x10'6/uL 12/06/2023 12:54 AM CDT [facility] HGB 13.0(L) 14.0 - 18.0 G/DL 12/06/2023 12:54 AM CDT [facility] HCT 38.8(L) 43.0 - 54.0 % 12/06/2023 12:54 AM CDT [facility] MCV 95.8(H) 80.0 - 94.0 FL 12/06/2023 12:54 AM CDT [facility] MCH 32.1(H) 27.0 - 31.0 PG 12/06/2023 12:54 AM CDT [facility] MCHC 33.5 32.0 - 36.0 G/DL 12/06/2023 12:54 AM CDT [facility] RDW 14.4 11.5 - 14.5 % 12/06/2023 12:54 AM CDT [facility] PLT 232 130 - 400 x10'3/uL 12/06/2023 12:54 AM CDT [facility] MPV 9.5 9.3 - 12.2 FL 12/06/2023 12:54 AM CDT [facility] DIFFERENTIAL TYPE AUTOMATED DIFFERENTIAL 12/06/2023 12:54 AM CDT [facility] NEUTROPHILS % 84.1 % 12/06/2023 12:54 AM CDT [facility] LYMPHOCYTES % 7.6 % 12/06/2023 12:54 AM CDT [facility] MONOCYTES % 7.1 % 12/06/2023 12:54 AM CDT [facility] EOSINOPHILS 0.1 % 12/06/2023 12:54 AM CDT [facility] BASOPHILS 0.3 % 12/06/2023 12:54 AM CDT [facility] IMMATURE GRANS % 0.8 % 12/06/19 12:54 AM CDT [facility] ABS. NEUTROPHILS 12.98(H) 1.80 - 7.70 x10'3/uL 12/06/2023 12:54 AM CDT [facility] ABS. LYMPHOCYTES 1.18 1.00 - 4.80 x10'3/uL 12/06/2023 12:54 AM CDT [facility] ABS. MONOCYTES 1.10(H) 0.30 - 0.82 x10'3/uL 12/06/2023 12:54 AM CDT [facility] ABS. EOSINOPHILS 0.01(L) 0.04 - 0.54 x10'3/uL 12/06/2023 12:54 AM CDT [facility] ABS. BASOPHILS 0.04 0.01 - 0.08 x10'3/uL 12/06/2023 12:54 AM CDT [facility] ABS. IMMATURE GRANULOCYTES 0.13 0.00 - 0.49 x10'3/uL 12/06/2023 12:54 AM CDT [facility] 12/06/2023 12:1 5 AM CDT [facility] Final Resul t [facility] [address] [place] [address], * (ABNORMAL) URINALYSIS (12/06/2023 12:00 AM CDT) SPECIMEN TYPE URINE CLEAN CATCH 12/06/2023 12:00 AM T [facility] COLOR (U) LIGHT ORANGE 12/06/2023 12:16 AM T [facility] TRANSPARENCY EXTREMELY TURBID 12/06/2023 12:16 AM T [facility] SPECIFIC GRAVITY (U) 1.012 1.001 - 1.030 12/06/2023 12:16 AM T [facility] U PH 6.0 5.0 - 9.0 12/06/2023 12:16 AM T [facility] LEUKOCYTES (U) 500(A) NEGATIVE 12/06/2023 12:16 AM T [facility] NITRITES NEGATIVE NEGATIVE 12/06/2023 12:16 AM T [facility] PROTEIN RANDOM (U) 200(H) <30 MG/DL 12/06/2023 12:16 AM T [facility] GLUCOSE (U) NORMAL NORMAL MG/DL 12/06/2023 12:16 AM T [facility] KETONES MG/DL (U) NEGATIVE NEGATIVE MG/DL 12/06/2023 12:16 AM T [facility] UROBILINOGEN NORMAL NORMAL MG/DL 12/06/2023 12:16 AM T [facility] BILIRUBIN (U) NEGATIVE NEGATIVE MG/DL 12/06/2023 12:16 AM T [facility] BLOOD (U) 3+(A) NEGATIVE 12/06/2023 12:16 AM T [facility] MUCUS MANY /LPF 12/06/2023 12:16 AM T [facility] WBC/HPF >100(H) <6 /HPF 12/06/2023 12:16 AM CDT [facility] RBC/HPF >100(H) <6 /HPF 12/06/2023 12:16 AM CDT [facility] URINE SPECIMEN OBTAINED BY CLEAN CATCH PROCEDURE / Unknown 12/06/2023 us [facility] ORDERABLES Final Resu lt [facility] [address] [place] [address], [place] [phone] documented in this encounter Visit Diagnoses Diagnosis Urinary retention- Primary Retention of urine, unspecified documented in this encounter Administered Medications Inactive Administered Medications - up to 3 most recent administrations Medication Order MAR Action Action Date Dose Rate Site ondansetron (ZOFRAN) injection 4 mg 4 mg, Intravenous, Once, 1 dose, On 12/06/23 at 0015, IV push over 2-5 minutes. Given 12/06/2023 12:33 AM CDT 4 mg documented in this encounter Active and Recently Administered Medications Times are shown in CDT. Scheduled Medication Order 12/04/2023 12/05/2023 12/06/2023 ondansetron (ZOFRAN) injection 4 mg (COMPLETED) 4 mg, Intravenous, Once, 1 dose, On 12/06/23 at 0015, IV push over 2-5 minutes. 0033 (Given - Provid er: Pop Ye RN) documented in this encounter Care Teams Security Auditor Relationship Specialty Start Date End Date Nikky Reyes MD [id number] [place] [address] PCP - General FAMILY PRACTICE 05/04/21 documented as of this encounter
--- OUTSIDE RECORDS SUMMARY | 2024-04-12 11:31 | XMS_ITS | Encounter Summary ---
Author Organization [facility] Address [address] [place] [address]. [place], [place] [id number] [place] [id number] Care Team Providers Care Statement Distribution Clerk Name Role Phone Nikky Reyes MD Primary Care Provider Reason for Visit * Auth/Cert (Routine) Specialty Diagnoses / Procedures Referred By Leatha t Referred To Contact Diagnoses GROSS HEMATURIA, 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, D49.4 Procedures CYSTOSCOPY, TRANSURETHRAL RESECTION BLADDER TUMOR, BILATERAL RETROGRADE PYELOGRAM, LEBRON CATHETER PLACEMENT, INTRAVESICAL INSTILLATION OF GEMCITABINE POSSIBLE URETEROSCOPY, POSSIBLE URETERAL STENT PLACEMENT Pato Cancino MD [address] [facility] [address] [place] [address] Phone: tel: fax: Referral ID Status Reason Start Date Expiration Date Visits Re quested Visits Authorized [id number] 1 1 Encounter Details Date Type Department Care Team (Late st Contact Info) Description 12/05/2023 6:55 AM CDT - 12/05/2023 12:40 PM T Hospital Encounter [facility] [place], [place] [id number] Pato Cancino MD [address] [facility] [address] [place] [address] [id number] Discharge Disposition: Home or Self Care (Routine [...] on file Legal Sex Male 1:18 PM [employer] Gender Identity Not on file Sexual Orientation Not on file documented as of this encounter Last Filed Vital Signs Vital Sign Reading Time Taken Comments Blood Pressure 109/84 12/05/2023 12:25 PM CDT Pulse 65 12/05/2023 12:25 PM CDT Temperature 36.1 ??C (97 ??F) 12/05/2023 12:25 PM CDT Respiratory Rate 16 12/05/2023 12:25 PM CDT Oxygen Saturation 98% 12/05/2023 12:25 PM CDT Inhaled Oxygen Concentration - - Weight 88.5 kg (195 lb 1.7 oz) 12/05/2023 7:30 A M CDT Height 186.7 cm (6' 1.5 ) 12/05/2023 7:30 AM CDT Body Mass Index 25.39 12/05/2023 7:30 AM CDT documented in this encounter Discharge Instructions * Discharge Instructions* Shirley Aly RN - 12/05/2023 11:01 AM CDT UROLOGY DISCHARGE INSTRUCTIONS: Regarding your blood thinner: You may resume your Plavix (Clopidogrel) blood thinner on 12/07/2023 Instructions for your ureteral stent: It is normal to have blood in the urine, urinary frequency and/or urgency, and abdominal/back cramping with a ureteral stent. Take the medications we have have provided you to control these symptoms. Medications: - Tamsulosin - take this medication once a day at bedtime which will help to minimize discomfort from your ureteral stent - Levsin (AKA Hyoscyamine) - take this medication every 4 hours as needed to minimize ureteral stent discomfort - Hydrocodone-Acetaminophen (AKA [place]) - this is a narcotic pain medication which you should take for pain not controlled with Tylenol (AKA Acetaminophen), Ibuprofen (AKA Advil), or the other medications listed above. Do not exceed 4,000 mg of Tylenol in 24 hours from all sources. - MiraLAX - take this medication once daily to prevent constipation, which narcotic medications cancause Activity: Advance as tolerated. No driving, operating heavy machinery, or making important life decisions if taking narcotics. Diet: No restrictions. Work: OK to return to work as you see fit. Pain: Try [id number] Tylenol or Ibuprofen first, if this doesn't help then take the prescriptions we may have provided you. Please note: It is normal to have some blood in your urine. This is expected given the urologic procedure you underwent and will clear up in the upcoming days. Notify us if: Fevers greater than 100.4 Fahrenheit, pain uncontrolled with medications, persistent vomiting, inability to urinate or if you are passing large blood clots in your urine, or if you haveany questions. Follow up: Call the urology clinic at to make/confirm your follow-up in about 2 weeks to review your pathology report and discuss next steps in management. Because you had anesthesia, we suggest these things: -Avoid greasy, fried or spicy foods for today -Take medication with food -Take an over the counter stool softener if needed for constipation while taking pain medication -Have a responsible adult stay with you the rest of today and overnight -No alcohol, driving, making major decision or operating machinery for 24 hours or while taking pain medication If you have chest pain, shortness of breath, calf pain, excessive bleeding or drainage, if you cannot hold down anything to eat or drink, or if you cannot urinate, please call 911 or go to the nearest emergency room. If you have fever, pain not controlled by your medication, signs of infection such as redness or discharge or swelling at the site, or any other questions or concerns, please call your surgeon. * Attachments The following attachments cannot be sent through Care Everywhere. * Transurethral Resection of Bladder Tumor Discharge Instructions (Haitian) * Ureteral Stent Discharge Instructions (Haitian) * General Anesthesia Discharge Instructions (Haitian) documented in this encounter Medications at Time [...] 11/28/2023 12/05/2023 documented as of this encounter H&P Notes * Pato Cancino MD - 12/05/2023 8:21 AM CDT Images from the original note were not included. Attending Provider: Pato Cancino MD PCP: NIKKY REYES MD CC: Bladder tumor Reason for Admission: * No active hospital problems. * HPI: Mitchell Rodriguez is an 73-year-old male with PMHx of CAD/KS on ASA/Plavix, CHF, HTN, HLD, hypothyroidism who was found on recent office cystoscopy to have bladder tumor. He underwent cardiac clearance and was indicated that he should remain on aspirin perioperatively. He was also recently diagnosed with a staph UTI and has been on culture-directed antibiotics. He presents today for endoscopic management of his bladder tumor. Review of Systems: ROS Constitutional: No fevers or chills Eyes: No changes in vision HENT: No hearing loss Cardiovascular: No chest pain or palpitations Respiratory: No shortness of breath, cough, wheezing GI: No abdominal pain, nausea, or vomiting : No dysuria Heme: No easy bruising or bleeding Skin: No rash or itching MSK: No myalgias or joint pain Psych: No hallucinations Neuro: No lateralized numbness or tingling Allergies: No Known Allergies Pertinent Med Hx: Past Medical History: Diagnosis Date Bladder tumor Cancer ([facility]) CHF (congestive heart failure) ([facility]) high 40s EF per pt Coronary artery disease Depression in past Heart attack ([facility]) x3- last around 2020 per pt- 2 were widowmakers Hypercholesteremia Hypertension Hypothyroidism, unspecified Pelvic/ Abd Surg Hx: Past Surgical History: Procedure Laterality Date LAPAROSCOPIC CHOLECYSTECTOMY SCREENING COLONOSCOPY TRANSCATH STENT INIT VESSEL,PERCUT total of 15- last stents 2021 per pt Family Hx: Family History Problem Relation Name Age of Onset Cancer Sister Cancer Other Heart Disease Other Pertinent Social Hx: Social History Tobacco Use Smoking status: Former Average packs/day: 2.0 packs/day for 15.0 years (30.0 ttl pk-yrs) Types: Cigarettes Start date: 1966 Smokeless tobacco: Never Substance Use Topics Alcohol use: Not 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 Current Outpatient Medications on File Prior to Encounter Medication Sig aspirin 81 MG chewable tablet Chew 1 tablet (81 mg total) by mouth daily. clopidogrel (PLAVIX) 75 MG tablet Take 1 tablet (75 mg total) by mouth daily. furosemide (LASIX) 40 MG tablet Take 1 tablet (40 mg total) by mouth daily. Glucosamine 500 MG Cap Take by mouth daily. levothyroxine (SYNTHROID) 50 MCG tablet Take 1 tablet (50 mcg total) by mouth every morning. metoprolol succinate ER (TOPROL-XL) 25 MG 24 hr tablet Take 1 tablet (25 mg total) by mouth nightly. Multiple Vitamins-Minerals (MULTIVITAMIN ADULTS 50+ OR) Take by mouth daily. rosuvastatin (CRESTOR) 20 MG tablet Take 1 tablet (20 mg total) by mouth nightly at bedtime. sacubitril-valsartan (ENTRESTO) 49-51 MG tablet Take 0.5 tablets by mouth 2 (two) times daily. sulfamethoxazole-trimethoprim (BACTRIM DS) 800-160 MG tablet Take 1 tablet by mouth 2 (two) times daily. For uti vitamin C (ASCORBIC ACID) 1000 MG tablet Take 1 tablet (1,000 mg total) by mouth daily. VITAMIN D, ERGOCALCIFEROL, OR Take by mouth daily. Vitals: 12/05/23 0730 BP: 103/56 Pulse: (!) 56 Resp: 18 Temp: 97.3 ??F (36.3 ??C) SpO2: 94% No intake/output data recorded. Physical Exam: Gen: no acute distress, alert and oriented x 3 Head: atraumatic, normocephalic Eyes: extraocular movements intact Neck: no JVD, trachea midline Resp: nonlabored breathing on room air CV: good peripheral perfusion Abdomen: soft, nontender, nondistended Skin: warm/dry Ext: normal ROM, no peripheral edema Psych: appropriate mood/affect Recent Labs Lab 11/28/23 0843 NA 138 K 3.5 CL 106 CO2 27.4 AGAP 4.6 BUN 12 CR 1.19 BUNCREATININ 10.1 GLU 110* CA 9.2 Recent Labs Lab 11/28/23 0843 WBC 7.86 RBC 4.08* HGB 13.1* HCT 39.3* MCV 96.3* MCH 32.1* MCHC 33.3 PLT 236 Assessment: Mitchell Rodriguez is an 73-year-old male with bladder tumor - To OR for cystoscopy, transurethral resection of bladder tumor, bilateral retrograde pyelogram, possible ureteroscopy, possible ureteral stent placement, lebron catheter placement, intravesical instillation of chemotherapy (gemcitabine) - 2 grams IV Ancef adoption services manager to OR - Risks, benefits, alternatives discussed with patient. The patient expressed understanding and agreement to proceed - Plan for discharge home thereafter pending how patient does in recovery PATO CANCINO MD 12/05/2023 ---- Pato Cancino MD [facility] Office and after-hours exchange phone number: [phone] documented in this encounter Nursing Notes * Shirley Aly RN - 12/05/2023 12:40 PM CDT Chemo agent was drained at 1135. Lebron was pulled. Pt was able to urinate on his own. * Shirley Angeles RN - 12/05/2023 9:33 AM CDT Patient's updated on procedure progress at 0933 and 1029. documented in this encounter OR Notes * Op Note - Pato Cancino MD - 12/05/2023 11:09 AM CDT CYSTOSCOPY, TRANSURETHRAL RESECTION BLADDER TUMOR, RIGHT RETROGRADE PYELOGRAM, RIGHT URETERAL STENTPLACEMENT, LEBRON CATHETER PLACEMENT, INTRAVESICAL INSTILLATION OF GEMCITABINE Procedure Note Mitchell Rodriguez 12/05/2023 Surgeon(s): Pato Cancino MD Outdoor Education Teacher: None Pre-Op Diagnosis: GROSS HEMATURIA, 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, D49.4 Post-Op Diagnosis: Bladder tumor (large, >5 cm), right hydronephrosis Procedure(s): Right - CYSTOSCOPY, TRANSURETHRAL RESECTION BLADDER TUMOR, RIGHT RETROGRADE PYELOGRAM, RIGHT URETERAL STENT PLACEMENT, LEBRON CATHETER PLACEMENT, INTRAVESICAL INSTILLATION OF GEMCITABINE - Wound Class: Clean Contaminated Anesthesia: General Findings: Cystourethroscopy revealed lateral lobe hyperplasia of the prostate with an elevated bladder neck. There were diffuse grade 1-2 bladder trabeculations. Patient had a large greater than 5 cm lobulatedbladder tumor involving the majority of the right side of his bladder. The tumor did not have classic papillary appearance. The tumor had high-grade appearance and grossly appeared to be invading into the bladder wall this bladder tumor was overlying the right ureteral orifice and I was unable to visualize the right ureteral orifice because of the mass. His left ureteral orifice was in the orthotopic position and was not involved with tumor. Patient also had a small approximately 1 cm erythematous sessile lesion on the left posterior wall of the bladder. Successful transurethral resection of bladder tumor with both superficial and deep resections of the main tumor sent in separate cassettes. There was detrusor muscle seen following the deep resectionas evidence of obtaining muscle in the. There was a third cassette sent for the smaller erythematous sessile lesion on the left bladder wall. All specimens were sent in formalin for permanent analysis. Right ureteral orifice was able to be identified after deep resection of the right sided large bladder tumor. I was able to cannulate the right ureteral orifice with a sensor wire and a ureteral catheter and a right-sided retrograde pyelogram was performed using a total of 20 mL of a 50-50 mixture of contrast and saline which showed moderate hydroureteronephrosis down to the level of the bladder without filling defect or extravasation. Successful placement of right ureteral stent without strings attached Excellent hemostasis at the conclusion of the case Successful instillation of intravesical gemcitabine at the conclusion of the case Complications: None Estimated Blood Loss: 50 mL Specimens: ID Type Source Tests Collected by Time A : BLADDER TUMOR ON SUPERFICIAL RESECTION TISSUE BLADDER PATHOLOGY Pato Cancino MD 12/05/2023 1013 B : BLADDER TUMOR ON THE DEEPER RESECTION TISSUE BLADDER PATHOLOGY Pato Cancino MD 12/05/2023 1021 C : LEFT POSTERIOR WALL SESSILE LESION TISSUE BLADDER PATHOLOGY Pato Cancino MD 12/05/2023 1023 Implants: Implant Name Type Inv. Item Serial No. Platen Grinder Lot No. LRB No. Used Action STENT URETERAL BOSTON SCI CONTOUR VL 6FR X 22-30CM - [id number] Stent STENT URETERAL [employer]OST[employer] SCI CONTOUR VL 6FR X 22-30CM in3Depth [id number] Right 1 Implanted Procedure Description: After informed consent was obtained, the patient was brought back to the operating theatre and placed in the supine position on the operating table. Pre- operative antibiotics were confirmed to have been administered. Anesthesia was induced. The patient was moved into the dorsal lithotomy position and prepped and draped in the standard sterile fashion for an endoscopic case. All pressure points were padded. Bilateral sequential compression devices were on and noted to be functioning. A formal timeout was performed with Dr. Cancino in attendance to confirm the correct patient, site/laterality, and procedure and all were in agreement to proceed. To begin with, I sequentially dilated the patient's distalmost urethra with Hyman sounds from [address] [place] [address] [place] [address] [place]ian increments. This was performed in order to save accommodate the resectoscope later on in the case. Afterwards, I atraumatically advanced a 22 [address] [place]ian rigid cystoscope tra nsurethrally to the patient's bladder with findings as noted above. Notably, he had a large greaterthan 5 cm lobulated bladder mass involving the majority of the right side of his bladder. I was unable to visualize the right ureteral orifice as the mass was directly overlying this region. His leftureteral orifice was not was uninvolved with tumor. Patient also had a small approximately 1 cm sessile erythematous lesion on the left posterior bladder wall. Otherwise there was no bladder tumor orsuspicious areas noted. I then removed the cystoscope and inserted the resectoscope using the visual obturator. The visual obturator was then removed and the working element was advanced through the resectoscope sheath. I then proceeded with transurethral resection of bladder tumor, taking great care to not perforate the bladder and to take superficial swipes of the tumor down to the tumor base. After this point the bladder tumor fragments were collected and sent off in a cassette labeled bladder tumor, superficial resection. I carefully examined to see if I could identify the right ureteral orifice and there was an area along the trigone that appeared to be a candidate for the orifice. Icarefully and gently advanced the sensor wire through this region and it advanced without difficulty. Under fluoroscopy, I was able to see that the wire coiled in the region of the right kidney. Overtop of the wire then passed a 5 [address] Lucian open-ended catheter up to the level of the right distal ureter and then removed the sensor wire. A retrograde pyelogram was performed with findings as noted above. Notably, he was noted to have moderate right-sided hydroureteronephrosis down to the level of the bladder. I then replaced a sensor wire through the open-ended catheter and using a Seldinger maneuver I remove the open-ended catheter while leaving the sensor wire in place. Over top of the sensor wire I passed a 6 [address] Lucian variable length double-J ureteral stent without strings attached and use a pusher to deployed in place, confirming a good proximal curl in the right kidney under fluoroscopy and a good distal curl in the bladder under direct cystoscopic vision. Next, I performed deep resections to include detrusor muscle to evaluate for muscle invasive disease and this was sent as a separate cassette labeled bladder tumor, deep resection. Afterwards, I resected the sessile erythematous lesion on the left posterior bladder wall and this was sent in a third cassette. I then turned my attention to obtaining hemostasis. Along the edges of the bladder tumor resection as well as overlying the bladder tumor resection bed I used the cautery setting to obtain hemostasis. The bladder was then cycled multiple times in order to ensure hemostasis, which was verified to be excellent. I then left the patient's bladder partially full and remove the resectoscope. I then advanced a 20 [address] Lucian coud?? to a Lebron catheter transurethrally patient's bladder inflated 10 L sterile water in the balloon. Through the catheter I instilled a total of 2 grams of gemcitabine in 100 mL of sterile fluid through the catheter and then placed a catheter plug on the end of the catheter. The time was noted to be 10:33 AM at this time and we will plan to leave the gemcitabine in place for 1 hour to be drainedat 11:33 AM. This essentially concluded the case. At the conclusion of the case all sponge, instrument, and sharp counts were correct times. The patient was then awoken from anesthesia and taken to the recovery room in stable condition. The patient tolerated the procedure well and there were no immediate complications noted. Disposition: Patient will be monitored in the PACU and his catheter will be drained at 11:33 AM. Afterwards, we will ensure patient is able to void spontaneously. The patient may then be discharged home after clearing PACU protocol. He was instructed to resume his Plavix on 12/07/2023. He will follow-up in the urology clinic in about 2 weeks for a post-operative visit and to review of his pathology report and discuss next steps management accordingly. PATO CANCINO MD Date: 12/05/2023 Time: 11:09 AM * OR PreOp - NANI Lima - 11/27/2023 12:04 PM CDT Chart reviewed. Per phone interview, patient denies extreme SOB/CP with 2 FOS but states he would be tired. Denies recent changes in activity tolerance in past 6 months. 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 Cardiac records already requested by RN, will review once received. Patient on Entresto for h/o HTN and CHF. Patient states he's unsure of what BP is. No recent BP readings available in chart to review or recent testing to assess EF. Per Anesthesia recommendations, please have patient hold for surgery and to bring medication with him on DOS. Addendum 12/02- Cardiac records now received and available in Media, results copied Cardiac clearance per Dr. Gordillo. May stop Clopidogrel for 5 days prior to surgery and restart 3 days after the surgery. I would recommend that the patient remain on Aspirin. 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 Mildly depressed LV systolic function. LV dysfunction is global. LVEF 50%. Impaired LV relaxation with normal LA pressure. No hemodynamically significant valvular abnormalities seen on Doppler exam Compared with prior study 07/01/22, LV systolic function has improved Cardiac Cath 07/02/22 Eccentric, 40% distal narrowing of the left main coronary artery which is unchanged from his prior coronary angiogram Evidence of mild in-stent restenosis of the multiple stents in the LAD Widely patent stent in the left Cx coronary artery extending into the first obtuse marginal vessel 40% stenosis in the midportion of the RCA with widely patent stents Normal LVEDP Echo 07/01/22 LV dysfunction is global, worse in the anteroseptal, inferior, and inferolateral segments. LVEF 40%. Normal RV systolic function No significant valvular abnormalities * OR PreOp - Karen Ray RN - 11/27/2023 11:36 AM CDT Can you climb 2 flights of stairs without CP or extreme SOB?yes but I would be tired at the top andhave to slow down the second flight Are you physically able to do the same things today that you could 6 months ago? yes Any recent heart testing? (EKG, stress test, Echo?) echo and EKG this year Do you see a wool batting worker? Who is it? Dr Stafford at [facility]- see clearance- I did request recent testing and last office note- I sent a message to surgeon- cardiology wants hiim to keep taking asa-Dr Cancino ok with that- pt will hold plavix 5 days prior to surgery He will come for labs and chest xray today Instructed to hold entresto dos and to bring it with him- unsure of BP- EF was high 40s per patient Patient didn't know he was getting a lebron cath- I message Dr Cancino- he said it should come out in PACU- patient informed I messaged Dr cancino - informed of ua results 12/02/23- I spoke to patient - Dr Cancino started him on bactrim for uti- aware he should keep taking it as rx documented in this encounter Plan of Treatment Not on file documented as of this encounter Procedures Procedure Name Priority Date/Time Associated Diagnosis Comments SURG XR RETROGRD UROGRAPHY Routine 12/05/2023 11:10 AM CDT PATHOLOGY Routine 12/05/2023 10:13 AM CDT CYSTOSCOPY TRANSURETHRAL RESECTION BLADDER TUMOR 12/05/2023 9:13 AM CDT GROSS HEMATURIA, 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, D49.4 Case Notes SCHED BY FAX 11/27/[address] REQUESTED 90 MINUTES ECG 12-LEAD Routine 12/05/2023 7:41 AM CDT Gross hematuria Bladder tumor documented in this encounter Results * SURG XR RETROGRD UROGRAPHY (12/05/2023 11:10 AM CDT) Anatomical Region Laterality Modality Abdomen Radiographic Clarissa ging 12/05/2023 1:15 PM CDT Impressions 12/05/2023 1:15 PM CDT Impression: No radiologic interpretation will be issued. ??The report and documentation of this exam will reside in the patient's permanent medical record and in the attending physician's procedure note. Ordered By: PATO CANCINO Interpreted By: Marco A Baez MD, 12/05/2023 1:15 PM Narrative 12/05/2023 1:[address] PM [address] [address] FLUOROSCOPY CONTROL ONLY Procedure Note Marco A Baez MD - 12/05/2023 [address] [place] [address] FLUOROSCOPY CONTROL ONLY Impression: No radiologic interpretation will be issued. The report and documentationof this exam will reside in the patient's permanent medical record and inthe attending physician's procedure note. Ordered By: PATO CANCINO Interpreted By: Marco A Baez MD, 12/05/2023 1:15 PM us Pato aCncino MD IMAGES ONLY Final R esult * Pathology (12/05/2023 10:13 AM CDT) PATHOLOGY [facility] ? Department of Laboratory Medicine ?[address] [facility] ?[place] [address] ? , extension [phone] ? Pathology Report ? Surgical Pathology Report Name: MITCHELL RODRIGUEZ ? Specimen #: [id number] Age: 11 1950 (Age: 73) ?Location: [facility] Sex: M ?Procedure Date: 12/05/2023 [facility] #: [id number] ?Date Received: 12/05/2023 Date Reported: 12/08/2023 Provider: PATO CANCINO MD Source: A: Bladder, superficial tumor B: Bladder, deep tumor C: Bladder, left posterior wall sessile tumor Clinical History: Gross hematuria and bladder tumor Gross Description: A. ??Received in formalin labeled with a patient's label and bladder tumor on superficial resection , is a 3.9 x 2.1 x 0.9 cm aggregate of pink-lozada soft tissue fragments. ??Specimen is entirely submitted in cassettes A1-A4. B. ??Received in formalin, labeled with a patient label and as bladder tumor on the deeper resection , is a 1.2 x 0.9 x 0.3 cm aggregate of pink-lozada soft tissue fragments. ??The specimen is entirely submitted in cassette B1. C. ??Received in formalin and labeled the patient's label and left posterior wall sessile lesion , are 4 fragments of pink-lozada soft tissue ranging from 0.2 to 0.5 cm in greatest dimension. ??Specimen is entirely submitted in cassette C1. Gross examination (when applicable), interpretation, and sign out were performed at [facility], [address] [place] [address]. FINAL DIAGNOSIS: A. ??Bladder, superficial tumor, resection: ? -Invasive papillary urothelial carcinoma, see comments. ? -Muscularis propria is present and involved by carcinoma. B. ??Bladder, deep tumor, resection: ? -Invasive papillary urothelial carcinoma, see comments. ? -Muscularis propria is present and involved by carcinoma. C. ??Bladder, left posterior wall sessile tumor, resection: ? -Fragments of granulation tissue and severely cauterized tissue suspicious for invasive urothelial carcinoma, see comments. Diagnosis Comment: Part C morphologic evaluation is limited by cautery artifact but is suspicious for invasive urothelial carcinoma. The case is reviewed by Dr. Salvador Panda with concurrence. Electronically Signed Out ? LUC BURDEN MD [facility] TISSUE URINARY BLADDER STRUCTURE / Unknown 12/05/2023 10:13 AM CDT Pato Cancino MD PATHOLOGY/CYTOLOGY CRISTINA PHAN Final Result [facility] [address] [place] [address], [id number] * ECG 12 lead (12/05/2023 7:41 AM CDT) 12/05/2023 7:41 AM CDT Narrative [facility] [place] ([facility]) RAD - 12/05/2023 4:24 PM CDT ?[facility] ? [address] [place] ? Test Date: ?2023-12-05 Pat Name: ? MITCHELL RODRIGUEZ ? Department: ?? 40 ? Room: ? ODS Gender: ? Male ? Senior Manager Quality Assurance: ?? : ?1950 ? Requested By: PATO CANCINO Order Number: [id number] ? Reading MD: ?? Yazan Montoya ? Measurements Intervals ?[place] ? Rate: ? 52 ? P: ?65 NE: ? 183 ?QRS: ?-51 QRSD: ? 165 ?T: ?1 QT: ? 465 ? QTc: ?433 ? Interpretive Statements SINUS BRADYCARDIA RIGHT BUNDLE BRANCH BLOCK ??[120+ ms QRS DURATION, UPRIGHT V1, 40+ ms S IN I/aVL/V4/V5/V6] LEFT ANTERIOR FASCICULAR BLOCK ??[QRS AXIS <= -45, QR IN I, RS IN II] No previous ECG available for comparison Procedure Note Yazan Montoya MD - 12/05/[address] Test Date: 2023-12-05 Pat Name: MITCHELL RODRIGUEZ Department: 40 Room: ODS Gender: Male Senior Manager Quality Assurance: : 1950 Requested By: PATO CANCINO Order Number: [id number] Reading MD: Yazan Montoya Measurements Intervals [place] Rate: 52 P: 65 NE: 183 QRS: -51 QRSD: 165 T: 1 QT: 465 QTc: 433 Interpretive Statements SINUS BRADYCARDIA RIGHT BUNDLE BRANCH BLOCK [120+ ms QRS DURATION, UPRIGHT V1, 40+ ms SIN I/aVL/V4/V5/V6] LEFT ANTERIOR FASCICULAR BLOCK [QRS AXIS <= -45, QR IN I, RS IN II] No previous ECG available for comparison us Pato Cancino MD ECG ORDERABLES Final R esult [facility] documented in this encounter Visit Diagnoses Diagnosis Gross hematuria- Primary Bladder tumor Neoplasm of unspecified nature of bladder Post-op pain Other acute postoperative pain documented in this encounter Administered Medications Inactive Administered Medications - up to 3 most recent administrations Medication Order MAR Action Action Date Dose Rate Site famotidine (PEPCID) tablet 20 mg 20 mg, Oral, Once, 1 dose, On Fri12/05/23 at 0730, On admission, Pre-Op Given 12/05/2023 7:46 AM CDT 20 mg gemcitabine (GEMZAR) 2 g in sodium chloride 0.9 % 100 mL bladder instillation 2 g (rounded from 2,000 mg), Bladder Instillation, Once, 1 dose, On Fri12/05/23 at 0900, Administer each 1 gram = 50 mL dose per syringe. 2g total BLADDER IRRIGATION USE ONLY Administration by approved chemotherapy RN only. ANTINEOPLASTIC AGENT: wear double chemotherapy approved gloves, protective gown, and eye/face protection if liquid could splash. Initiate hazardous drug (HD) precautions for 48 hours. Administration by approved chemotherapy RN only. Given 12/05/2023 10:33 AM CDT 2 g lactated ringers infusion at 10 mL/hr, Intravenous, Continuous, Starting on Fri12/05/23 at 0730, Until Fri12/05/23 at 1446, Infuse at TKO rate, Pre-Op Rate/Dose Change 12/05/2023 10:47 AM CDT 100 mL/hr Rate/Dose Change 12/05/2023 10:33 AM CDT 500 mL /hr New Bag 12/05/2023 7:50 AM CDT 50 mL/hr documented in this encounter Active and Recently Administered Medications Times are shown in CDT. Scheduled Medication Order 12/03/2023 12/04/2023 12/05/2023 ceFAZolin (ANCEF) 2 g in NS 100 mL IVPB (COMPLETED) 2 g, Intravenous, at 400 mL/hr, lamina searcher to O.R., 1 dose, First dose on Fri12/05/23 at 0730, Pre-Op 0925 (Given - Provid er: Byron Mathews CRNA)0930 (Infusion Stop Time - Provider: Byron Mathews CRNA) famotidine (PEPCID) tablet 20 mg (COMPLETED) 20 mg, Oral, Once, 1 dose, On Fri12/05/23 at 0730, On admission, Pre-Op 0746 (Given - Provid er: Uzma Jensen RN) gemcitabine (GEMZAR) 2 g in sodium chloride 0.9 % 100 mL bladder instillation (COMPLETED) 2 g (rounded from 2,000 mg), Bladder Instillation, Once, 1 dose, On Fri12/05/23 at 0900, Administer each 1 gram = 50 mL dose per syringe. 2g total BLADDER IRRIGATION USE ONLY Administration by approved chemotherapy RN only. ANTINEOPLASTIC AGENT: wear double chemotherapy approved gloves, protective gown, and eye/face protection if liquid could splash. Initiate hazardous drug (HD) precautions for 48 hours. Administration by approved chemotherapy RN only. 0913 (MAR Hold - Pro vider: User Epic - Reason: Unreviewed Transfer Orders)1033 (Given - Provider: Shirley Angeles RN - Comment: Inserted at 1033 at end of surgical procedure.)1038 (MAR Unhold - Provider: Shirley Angeles RN) Continuous Medication Order 12/03/2023 12/04/2023 12/05/2023 lactated ringers infusion at 10 mL/hr, Intravenous, Continuous, Starting on Fri12/05/23 at 0730, Until Fri12/05/23 at 1446, Infuse at TKO rate, Pre-Op 0750 (New Bag - Prov ider: Byron Mathews CRNA)1033 (Rate/Dose Change - Provider: Byron Mathews CRNA)1047 (Rate/Dose Change - Provider: Byron Mathews CRNA)1050 (Anesthesia Volume Adjustment - Provider: Byron Mathews CRNA) PRN Medication Order 12/03/2023 12/04/2023 12/05/2023 iopamidol (ISOVUE-M 300) 61 % 10 mL in sodium chloride 0.9 % 10 mL contrast solution (CANCELED) As needed, Starting on Fri12/05/23 at 1035, Until Fri12/05/23 at 1044, Intra-Op 1035 (Given - Provid er: Pato Cancino MD) documented in this encounter Care Teams Statement Distribution Clerk Relationship Specialty Start Date End Date Nikky Reyes MD [address] [place] [address] PCP - General FAMILY PRACTICE 05/04/21 documented as of this encounter
--- OUTSIDE RECORDS SUMMARY | 2024-04-12 11:31 | XMS_ITS | Encounter Summary ---
Author Organization [facility] Address [address] [place] [address]. [place], [place] [id number] [place] [address] Care Team Providers Care Tractor Trailer Technician Name Role Phone Nikky Reyes MD Primary Care Provider Reason for Visit * Reason Onset Date Comments Appointment Request 02/11/2023 Encounter Details Date Type Department Care Team (Late st Contact Info) Description 02/11/2023 Telephone [facility] [address] [place], [place] [address] Gatito Lopez MD [facility]. 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 Lopez from Dr. Reyes for iliac artery aneurysm. The office only faxed overthe referral and the insurance cards. I did fax the office back requesting the last office note andall vascular testing. I did try to call the office and was unable to reach anyone. SYSTEMS ADMINISTRATOR documented in this encounter Plan of Treatment Not on file documented as of this encounter Visit Diagnoses Not on filedocumented in this encounter Care Teams Tractor Trailer Technician Relationship Specialty Start Date End Date Nikky Reyes MD [address] [place] [address] PCP - General FAMILY PRACTICE 05/04/21 documented as of this encounter
--- OUTSIDE RECORDS SUMMARY | 2024-04-12 11:31 | XMS_ITS | Encounter Summary ---
Author Organization [facility] Address [address] [place] [address]. [place] [address] [place] [address] Care Team Providers Care Continuous Churn Buttermaker Name Role Phone Nikky Reyes MD Primary Care Provider Reason for Visit * Auth/Cert (Routine) Specialty Diagnoses / Procedures Referred By Leatha mejia Referred To Contact Diagnoses GROSS HEMATURIA, 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, D49.4 Procedures CYSTOSCOPY, TRANSURETHRAL RESECTION BLADDER TUMOR, BILATERAL RETROGRADE PYELOGRAM, LEBRON CATHETER PLACEMENT, INTRAVESICAL INSTILLATION OF GEMCITABINE POSSIBLE URETEROSCOPY, POSSIBLE URETERAL STENT PLACEMENT Pato Cancino MD [address] [facility] [address] [place] [address] Phone: tel: fax: Referral ID Status Reason Start Date Expiration Date Visits Re quested Visits Authorized [id number] 1 1 Encounter Details Date Type Department Care Team (Late st Contact Info) Description 12/05/2023 8:57 AM CDT - 12/05/2023 10:57 AM CDT Surgery [facility] [place] [address] Pato Cancino MD [address] [facility] [address] [place] [phone] CYSTOSCOPY, TRANSURETHRAL RESECTION BLADDER TUMOR, RIGHT RETROGRADE PYELOGRAM, RIGHT URETERAL STENT PLACEMENT, LEBRON CATHETER PLACEMENT, INTRAVESICAL INSTILLATION OF GEMCITABINE Surgery Details Date/Time Status Location OR Service Patient Class Case Class Case Type Trauma Case? 12/05/2023 8:57 AM Posted [facility] OR OR 1 Urology Short Stay/Outpati ent Surgery E - Elective No Panel 1 Procedure LRB Anes Op Region Wound Class Comments CYSTOSCOPY, TRANSURETHRAL RESECTION BLADDER TUMOR, RIGHT RETROGRADE PYELOGRAM, RIGHT URETERAL STENT PLACEMENT, LEBRON CATHETER PLACEMENT, INTRAVESICAL INSTILLATION OF GEMCITABINE Right General Bladder Clean Contami nated Surgeon Surgeon Role Service Panel Pato Cancino MD Primary Urology 1 Case Notes SCHED BY FAX 11/27/[address] REQUESTED 90 MINUTES documented in this encounter Social History Tobacco Use Types Packs/Day Years Used Date Smoking Tobacco: Former Cigarettes 2 15 S tarted: 1967 Smokeless Tobacco: Never Alcohol Use Standard Drinks/Week Comments Not Currently 0 (1 standard drink = 0.6 oz pur e alcohol) sober 45 years Sex and Gender Information Value Date Recorded Sex Assigned at Not on file Legal 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 Pain: Try sgzf-pir-dczoada Tylenol or Ibuprofen first, if this doesn't [...] Transurethral Resection of Bladder Tumor Discharge Instructions (Maldivian) * Ureteral Stent Discharge Instructions (Maldivian) * General Anesthesia Discharge Instructions (Maldivian) documented in this encounter Medications at Time [...] is an 73-year-old male with PMHx of CAD/MT on ASA/Plavix, CHF, HTN, HLD, hypothyroidism who [...] Medical History: Diagnosis Date Bladder tumor Cancer (CMS/HCC HHS/HCC) CHF (congestive heart failure) (CMS/HCC HHS/HCC) high 40s EF per pt Coronary artery disease Depression in past Heart attack (CMS/HCC HHS/HCC) x3- last around 2020 per pt- 2 [...] chemotherapy (gemcitabine) - 2 grams IV Ancef hospital personnel director to OR - Risks, benefits, alternatives discussed with patient. The patient expressed understanding and agreement to proceed - Plan for discharge home thereafter pending how patient does in recovery PATO CANCINO MD 12/05/2023 ---- Pato Cancino MD [facility] Office and after-hours exchange phone number: [phone] documented in this encounter Nursing Notes * [...] Mitchell Rodriguez 12/05/2023 Surgeon(s): Pato Cancino MD Psychological Assistant: None Pre-Op Diagnosis: GROSS HEMATURIA, BLADDER TUMOR [...] Implant Name Type Inv. Item Serial No. Dye Tub Operator Lot No. LRB No. Used Action STENT URETERAL BOSTON SCI CONTOUR VL 6FR X 22-30CM - [id number] Stent STENT URETERAL BOSTON SCI CONTOUR VL 6FR X 22-30CM [id number] [id number] Right 1 Implanted Procedure Description: After informed [...] distalmost urethra with Hyman sounds from 20 English to 30 English in 2 English increments. This was performed in order to save accommodate the resectoscope later on in the case. Afterwards, I atraumatically advanced a 22 English rigid cystoscope tra nsurethrally to the patient's [...] of the wire then passed a 5 English open-ended catheter up to the level of [...] the sensor wire I passed a 6 English variable length double-J ureteral stent without strings [...] the resectoscope. I then advanced a 20 English coud?? to a Lebron catheter transurethrally patient's [...] Time: 11:09 AM * OR PreOp - [facility] - 11/27/2023 12:04 PM CDT Chart reviewed. Per phone interview, patient denies extreme SOB/CP with 2 FOS but states he would be tired. Denies recent changes in activity tolerance in past 6 months. Patient sees rig supervisor and states he had testing this year, [...] EKG this year Do you see a rig supervisor? Who is it? Dr Stafford at [facility]- see clearance- I did request recent testing [...] SCHED BY FAX 11/27/2023 [facility]CS PHONE ASSESS REQUESTED 90 MINUTES ECG 12-LEAD Routine 12/05/2023 [...] 1:15 PM Narrative 12/05/2023 1:15 PM CDT [place] [id number] FLUOROSCOPY CONTROL ONLY Procedure Note Marco A Baez MD - 12/05/2023 [place] [address] FLUOROSCOPY CONTROL ONLY Impression: No radiologic interpretation will be issued. The report and documentationof this exam will reside in the patient's permanent medical record and inthe attending physician's procedure note. Ordered By: PATO CANCINO Interpreted By: Marco A Baez MD, 12/05/2023 1:15 PM us Pato Cancino MD IMAGES ONLY Final R esult * Pathology (12/05/2023 10:13 AM CDT) PATHOLOGY [facility] ? Department of Laboratory Medicine ?[address] [facility] ?[place] [address] ? , extension [phone] ? Pathology Report ? Surgical Pathology Report Name: MITCHELL RODRIGUEZ ? Specimen #: [id number] Age: 11 1950 (Age: 73) ?Location: [facility] Sex: M ?Procedure Date: 12/05/2023 Hospital #: [id number] ?Date Received: 12/05/2023 Date Reported: 12/08/2023 Provider: [...] interpretation, and sign out were performed at [facility], [address] [facility], [place] [address]. FINAL DIAGNOSIS: A. ??Bladder, superficial tumor, resection: [...] Electronically Signed Out ? LUC BURDEN MD [facility] TISSUE URINARY BLADDER STRUCTURE / Unknown 12/05/2023 10:13 AM CDT us Pato Cancino MD PATHOLOGY/CYTOLOGY CRISTINA PHAN Final Result [facility] [address] [place] [address], [id number] * ECG 12 lead (12/05/2023 7:41 AM CDT) 12/05/2023 7:41 AM CDT Narrative [facility] [place] ([facility] RAD - 12/05/2023 4:24 PM CDT ?[facility] ? [address] [place] ? Test Date: ?2023-12-05 Pat Name: ? MITCHELL RODRIGUEZ ? Department: ?? 40 ? Room: ? ODS Gender: ? Male ? Sports Nutritionist: ?? : ?1950 ? Requested By: PATO BETEXNARINDER Order Number: [id number] ? Reading MD: ?? Yazan Montoya ? Measurements Intervals ?[place] ? Rate: ? 52 ? P: ?65 AL: ? 183 ?QRS: ?-51 QRSD: ? 165 ?T: ?1 QT: ? 465 ? QTc: ?433 ? Interpretive Statements SINUS BRADYCARDIA RIGHT BUNDLE BRANCH BLOCK ??[120+ ms QRS DURATION, UPRIGHT V1, 40+ ms S IN I/aVL/V4/V5/V6] LEFT ANTERIOR FASCICULAR BLOCK ??[QRS AXIS <= -45, QR IN I, RS IN II] No previous ECG available for comparison Procedure Note Yazan Montoya MD - 12/05/[address] Test Date: 2023-12-05 Pat Name: MITCHELL RODRIGUEZ Department: 40 Room: [facility] Gender: Male Sports Nutritionist: : 1950 Requested By: PATO CANCINO Order Number: [id number] Reading MD: Yazan Montoya Measurements Intervals [place] Rate: 52 P: 65 AL: 183 QRS: -51 QRSD: 165 T: 1 QT: 465 QTc: 433 Interpretive Statements SINUS BRADYCARDIA RIGHT BUNDLE BRANCH BLOCK [120+ ms QRS DURATION, UPRIGHT V1, 40+ ms SIN I/aVL/V4/V5/V6] LEFT ANTERIOR FASCICULAR BLOCK [QRS AXIS <= -45, QR IN I, RS IN II] No previous ECG available for comparison us Pato Cancino MD ECG ORDERABLES Final R esult [facility] documented in this encounter Visit Diagnoses Not on filedocumented [...] Given 12/05/2023 10:33 AM CDT 2 g iopamidol (ISOVUE-M 300) 61 % 10 mL in sodium chloride 0.9 % 10 mL contrast solution As needed, Starting on Fri12/05/23 at 1035, Until Fri12/05/23 at 1044, Intra-Op Given 12/05/2023 10:35 AM CDT 15 mLs Operative Site lactated ringers infusion at 10 mL/hr, Intravenous, [...] (COMPLETED) 2 g, Intravenous, at 400 mL/hr, call center associate to O.R., 1 dose, First dose on Fri12/05/23 at 0730, Pre-Op 0925 (Given - Provid er: Byron Mathews CRNA)0930 (Infusion Stop Time - Provider: Byron Mathews CRNA) famotidine (PEPCID) tablet 20 mg (COMPLETED) 20 mg, Oral, Once, 1 dose, On Fri12/05/23 at 0730, On admission, Pre-Op 0746 (Given - Provid er: Uzma Jensen ODILON) gemcitabine (GEMZAR) 2 g in sodium chloride [...] hours. Administration by approved chemotherapy RN only. 09 (MAY Hold - Pro vider: User Epic - Reason: Unreviewed Transfer Orders)1033 (Given - Provider: Shirley Angeles RN - Comment: Inserted at 1033 at end of surgical procedure.)1038 (MAY Unhold - Provider: Shirley Angeles RN) Continuous [...] MD) documented in this encounter Care Teams Continuous Churn Buttermaker Relationship Specialty Start Date End Date Nikky Reyes MD [address] [place] [address] PCP - General FAMILY PRACTICE 05/04/21 documented as of this encounter
--- OUTSIDE RECORDS SUMMARY | 2024-04-12 11:31 | XMS_ITS | Encounter Summary ---
Author Organization [facility] Address [address] [place] [address]. [place], [place] [address] [place] [address] Care Team Providers Care Primary Care Coordinator Name Role Phone Nikky Reyes MD Primary Care Provider Encounter Details Date Type Department Care Team (Latest Contact Info) Description 05/04/2021 Travel Social History Tobacco Use Types Packs/Day Years Used Date Smoking Tobacco: Never Assessed Sex and Gender Information Value Date Recorded Sex Assigned at Not on file Legal Sex Male 1:18 PM FLAT LOCKER Gender Identity Not on file Sexual Orientation Not on file COVID-19 Exposure Response Date Recorded In the last 10 days, have yo u been in contact with someone who was confirmed or suspected to have Coronavirus/COVID-19? No / Unsure 05/04/2021 9:48 AM FLAT LOCKER documented as of this encounter Plan of Treatment Not on file documented as of this encounter Visit Diagnoses Not on filedocumented in this encounter Care Teams Primary Care Coordinator Relationship Specialty Start Date End Date Nikky Reyes MD [address] [place] [address] PCP - General FAMILY PRACTICE 05/04/21 documented as of this encounter
--- OUTSIDE RECORDS SUMMARY | 2024-04-12 11:31 | XMS_ITS | Encounter Summary ---
Author Organization [facility] Address [address] [place] [address]. [place], [place] [id number] [place] [address] Care Team Providers Care Delivery Representative Name Role Phone Nikky Reyes MD Primary Care Provider Encounter Details Date Type Department Care Team (Late st Contact Info) Description 11/27/2023 Prep for Procedure [facility] [place], [place] [address] Kwaku Martin MD [address] [facility] [address] [place], [place] [address] Social History Tobacco Use Types Packs/Day Years Used Date Smoking Tobacco: Former Cigarettes 2 15 S tarted: 1967 Smokeless Tobacco: Never Alcohol Use Standard Drinks/Week Comments Not Currently 0 (1 standard drink = 0.6 oz pur e alcohol) sober 43 years Sex and Gender Information Value Date Recorded Sex Assigned at Not on file Legal Sex Male 1:18 PM ENROUTE CONTROLLER Gender Identity Not on file Sexual Orientation Not on file documented as of this encounter Plan of Treatment Not on file documented as of this encounter Results * (ABNORMAL) URINE BACTERIA CULTURE (11/28/2023 8:45 AM CDT) SPEC DESCRIPTION URINE CLEAN CATCH 11/28/2023 8:53 AM CDT [facility] SPECIAL REQUESTS NO SPECIAL REQUEST 11/28/2023 8:53 AM CDT [facility] CULTURE RESULT >100,000 COL/ML STAPH. SPECIES NOT STAPH. AUREUS (A) 11/30/2023 9:35 AM CDT [facility] URINE SPECIMEN OBTAINED BY CLEAN CATCH PROCEDURE / Unknown 11/28/2023 8:45 AM CDT 11/28/2023 8:56 AM CDT Narrative Organism Antibiotic Method Susceptibility Staph. species not staph. aureus NITROFURANTOIN NIRMALA (V ITEK) <=16: Sensitive Staph. species not staph. aureus LEVOFLOXACIN NIRMALA (VIT EK) 4: Resistant Staph. species not staph. aureus OXACILLIN NIRMALA (VIT EK) >=4: Resistant Staph. species not staph. aureus TRIMETH-SULFAMETH. ND C (VITEK) 20: Sensitive Staph. species not staph. aureus TETRACYCLINE NIRMALA (VIT EK) >=16: Resistant Staph. species not staph. aureus VANCOMYCIN NIRMALA (VIT EK) 2: Sensitive Kwaku Martin MD MICROBIOLOGY - GENERAL ORDERABLES Final Result [facility] [address] [place] [address], * (ABNORMAL) URINALYSIS (11/28/2023 8:45 AM CDT) SPECIMEN TYPE URINE CLEAN CATCH 11/28/2023 8:53 AM CDT [facility] COLOR (U) YELLOW 11/28/2023 9:11 AM CDT [facility] TRANSPARENCY TURBID 11/28/2023 9:11 AM CDT [facility] SPECIFIC GRAVITY (U) 1.014 1.001 - 1.030 11/28/2023 9:11 AM CDT [facility] U PH 5.5 5.0 - 9.0 11/28/2023 9:11 AM CDT [facility] LEUKOCYTES (U) 500(A) NEGATIVE 11/28/2023 9:11 AM CDT [facility] NITRITES 1+(A) NEGATIVE 11/28/2023 9:11 AM CDT [facility] PROTEIN RANDOM (U) 70(H) <30 MG/DL 11/28/2023 9:11 AM CDT [facility] GLUCOSE (U) NORMAL NORMAL MG/DL 11/28/2023 9:11 AM CDT [facility] KETONES MG/DL (U) NEGATIVE NEGATIVE MG/DL 11/28/2023 9:11 AM CDT [facility] UROBILINOGEN NORMAL NORMAL MG/DL 11/28/2023 9:11 AM CDT [facility] BILIRUBIN (U) NEGATIVE NEGATIVE MG/DL 11/28/2023 9:11 AM CDT [facility] BLOOD (U) 3+(A) NEGATIVE 11/28/2023 9:11 AM CDT [facility] MUCUS RARE /LPF 11/28/2023 9:11 AM CDT [facility] WBC/HPF >100(H) <6 /HPF 11/28/2023 9:11 AM CDT [facility] WBC CLUMPS PRESENT 11/28/2023 9:11 AM CDT [facility] RBC/HPF 21(H) <6 /HPF 11/28/2023 9:11 AM CDT [facility] BACTERIA (U) MODERATE(A) NONE /HPF 11/28/2023 9:11 AM CDT [facility] URINE SPECIMEN OBTAINED BY CLEAN CATCH PROCEDURE / Unknown 11/28/2023 8:45 AM CDT us Kwaku Martin MD URINE ORDERABLES Final Result [facility] [address] [place] [address], [place] [phone] * (ABNORMAL) BASIC METABOLIC PANEL (11/28/2023 8:43 AM CDT) [facility] GLUCOSE 110(H) 70 - 99 MG/DL 11/28/2023 10:22 AM CDT [facility] BUN 12 7 - 18 MG/DL 11/28/2023 10:22 AM CDT [facility] CREATININE S/P/B 1.19 0.7 - 1.3 MG/DL 11/28/2023 10:22 AM CDT [facility] SODIUM S/P/B 138 136 - 145 MMOL/L 11/28/2023 10:22 AM CDT [facility] POTASSIUM S/P/B 3.5 3.5 - 5.1 MMOL/L 11/28/2023 10:22 AM CDT [facility] CHLORIDE S/P/B 106 97 - 115 MMOL/L 11/28/2023 10:22 AM CDT [facility] CO2 27.4 21 - 32 MMOL/L 11/28/2023 10:22 AM CDT [facility] CALCIUM S/P/B 9.2 8.5 - 10.1 MG/DL 11/28/2023 10:22 AM CDT [facility] ANION GAP 4.6 2 - 10 MMOL/L 11/28/2023 10:22 AM CDT [facility] BUN CREATININE RATIO 10.1 6 - 26 11/28/2023 10:22 AM CDT [facility] GFR ESTIMATE 64(L) >90 ML/MIN/1.7 3 M2 11/28/2023 10:22 AM CDT [facility] Comment: NOTE: eGFR is not calculated for patients <18 years of age or gender unknown. This is an estimated GFR calculation using the new CKD EPI creatinine equation without race and so does not require a correction factor for race. This estimated GFR should not be used for calculating drug doses. 11/28/2023 8:43 AM CDT us Kwaku Martin MD LABORATORY Final R esult [facility] [address] [place] [address], * (ABNORMAL) CBC W/DIFF AUTOMATED (11/28/2023 8:43 AM CDT) WBC 7.86 4.5 - 11.0 x10'3/uL 11/28/2023 9:12 AM CDT [facility] RBC 4.08(L) 4.70 - 6.10 x10'6/uL 11/28/2023 9:12 AM CDT [facility] HGB 13.1(L) 14.0 - 18.0 G/DL 11/28/2023 9:12 AM CDT [facility] HCT 39.3(L) 43.0 - 54.0 % 11/28/2023 9:12 AM CDT [facility] MCV 96.3(H) 80.0 - 94.0 FL 11/28/2023 9:12 AM CDT [facility] MCH 32.1(H) 27.0 - 31.0 PG 11/28/2023 9:12 AM CDT [facility] MCHC 33.3 32.0 - 36.0 G/DL 11/28/2023 9:12 AM CDT [facility] RDW 14.4 11.5 - 14.5 % 11/28/2023 9:12 AM CDT [facility] PLT 236 130 - 400 x10'3/uL 11/28/2023 9:12 AM CDT [facility] MPV 9.3 9.3 - 12.2 FL 11/28/2023 9:12 AM CDT [facility] DIFFERENTIAL TYPE AUTOMATED DIFFERENTIAL 11/28/2023 9:12 AM CDT [facility] NEUTROPHILS % 67.3 % 11/28/2023 9:12 AM CDT [facility] LYMPHOCYTES % 17.9 % 11/28/2023 9:12 AM CDT [facility] MONOCYTES % 11.6 % 11/28/2023 9:12 AM CDT [facility] EOSINOPHILS 2.2 % 11/28/2023 9:12 AM CDT [facility] BASOPHILS 0.6 % 11/28/2023 9:12 AM CDT [facility] IMMATURE GRANS % 0.4 % 11/28/19 9:12 AM CDT [facility] ABS. NEUTROPHILS 5.29 1.80 - 7.70 x10'3/uL 11/28/2023 9:12 AM CDT [facility] ABS. LYMPHOCYTES 1.41 1.00 - 4.80 x10'3/uL 11/28/2023 9:12 AM CDT [facility] ABS. MONOCYTES 0.91(H) 0.30 - 0.82 x10'3/uL 11/28/2023 9:12 AM CDT [facility] ABS. EOSINOPHILS 0.17 0.04 - 0.54 x10'3/uL 11/28/2023 9:12 AM CDT [facility] ABS. BASOPHILS 0.05 0.01 - 0.08 x10'3/uL 11/28/2023 9:12 AM CDT [facility] ABS. IMMATURE GRANULOCYTES 0.03 0.00 - 0.49 x10'3/uL 11/28/2023 9:12 AM CDT [facility] 11/28/2023 8:43 AM CDT Kwaku Martin MD LABORATORY Final R esult [facility] [address] [place] [address], documented in this encounter Visit Diagnoses Diagnosis Gross hematuria- Primary Bladder tumor Neoplasm of unspecified nature of bladder documented in this encounter Additional Health Concerns Infection Onset Date Last Indicated Resolved Time COVID-19 Rule Out 04/10/2024 04/10/2024 04/10/2024 1:35 PM ENROUTE CONTROLLER Influenza - Seasonal 04/10/2024 04/10/2024 documented as of this encounter Care Teams Delivery Representative Relationship Specialty Start Date End Date Nikky Reyes MD [address] [place] [address] PCP - General FAMILY PRACTICE 05/04/21 documented as of this encounter
--- OUTSIDE RECORDS SUMMARY | 2024-04-12 11:31 | XMS_ITS | Encounter Summary ---
Author Organization [facility] Address [address] [place] [address]. [place], [place] [address] [place] [address] Care Team Providers Care Fixture Relamper Name Role Phone Nikky Reyes MD Primary Care Provider Encounter Details Date Type Department Care Team (Late st Contact Info) Description 04/01/2024 Prep for Procedure [facility] [place], [place] [address] Adelso Quiñones MD [address] [facility] [address] [place] [address] Social History Tobacco Use Types Packs/Day Years Used Date Smoking Tobacco: Former Cigarettes 2 15 S tarted: 1967 Smokeless Tobacco: Never Alcohol Use Standard Drinks/Week Comments Not Currently 0 (1 standard drink = 0.6 oz pur e alcohol) sober 43 years Sex and Gender Information Value Date Recorded Sex Assigned at Not on file Legal Sex Male 1:18 PM CODING TECHNICIAN Gender Identity Not on file Sexual Orientation Not on file documented as of this encounter Plan of Treatment Not on file documented as of this encounter Results * (ABNORMAL) URINE BACTERIA CULTURE (04/02/2024 2:46 PM CODING TECHNICIAN) SPEC DESCRIPTION URINE CLEAN CATCH 04/02/2024 2:47 PM CODING TECHNICIAN [facility] SPECIAL REQUESTS NO SPECIAL REQUEST 04/02/2024 2:47 PM CODING TECHNICIAN [facility] CULTURE RESULT >100,000 COL/ML STAPH. SPECIES NOT STAPH. AUREUS (A) 04/04/2024 8:02 AM CODING TECHNICIAN [facility] URINE SPECIMEN OBTAINED BY CLEAN CATCH PROCEDURE / Unknown 04/02/2024 2:46 PM CODING TECHNICIAN 04/02/2024 3:46 PM CODING TECHNICIAN Narrative Organism Antibiotic Method Susceptibility Staph. species not staph. aureus NITROFURANTOIN NIRMALA (V ITEK) <=16: Sensitive Staph. species not staph. aureus LEVOFLOXACIN NIRMALA (VIT EK) 4: Resistant Staph. species not staph. aureus OXACILLIN NIRMALA (VIT EK) >=4: Resistant Staph. species not staph. aureus TRIMETH-SULFAMETH. OR C (VITEK) 20: Sensitive Staph. species not staph. aureus TETRACYCLINE NIRMALA (VIT EK) >=16: Resistant Staph. species not staph. aureus VANCOMYCIN NIRMALA (VIT EK) 2: Sensitive Adelso Quiñones MD MICROBIOLOGY - GENERAL ORDERABL ES Final Result [facility] [address] [place] [address], documented in this encounter Visit Diagnoses Diagnosis Bladder cancer (CMS/HCC HHS/HCC)- Primary Malignant neoplasm of bladder, part unspecified Hydronephrosis with ureteral stricture documented in this encounter Additional Health Concerns Infection Onset Date Last Indicated Resolved Time COVID-19 Rule Out 04/10/2024 04/10/2024 04/10/2024 1:35 PM CODING TECHNICIAN Influenza - Seasonal 04/10/2024 04/10/2024 documented as of this encounter Care Teams Fixture Relamper Relationship Specialty Start Date End Date Nikky Reyes MD [address] [place] [address] PCP - General FAMILY PRACTICE 05/04/21 documented as of this encounter
--- OUTSIDE RECORDS SUMMARY | 2024-04-12 11:34 | XMS_ITS | Encounter Summary ---
Author Organization [facility] Address [address] [place] [address] Care Team Providers Care Manager Architectural Name Role Phone Nikky Reyes MD Primary Care Provider Venkat Vivar DO Unavailable [phone] Kwaku Martin MD Unavailable [phone] Richard Hargrove MD Unavailable [phone] Adelso Quiñones MD Unavailable [phone] Encounter Details Date Type Department Care Team (Late st Contact Info) Description 03/01/2024 10:00 AM BULL WHEEL WORKER Lab [facility] at [address] [address] Malignant neoplasm of urinary bladder, unspecified site (HCC) Social History Tobacco Use Types Packs/Day Years Used Date Smoking Tobacco: Never Smokeless Tobacco: Never AUDIT-C Answer Date Recorded Q1: How often do you have a drink containing alcohol? Never 01/06/2024 Q2: How many drinks containi ng alcohol do you have on a typical day when you are drinking? Patient does not drink Q3: How often do you have si x or more drinks on one occasion? Never 01/06/2024 Personal Safety Answer Date Recorded Have you ever been in or are you currently in a harmful physical or emotional relationship or is someone making you feel afraid or unsafe? Denies 02/25/2024 Sex and Gender Information Value Date Recorded Sex Assigned at Not on file Legal Sex Male 2:03 AM BULL WHEEL WORKER Gender Identity Not on file Sexual Orientation Not on file Occupation Industry Job Start Date Job End Date Retired Not on file Not on file Not on file documented as of this encounter Plan of Treatment Not on file documented as of this encounter Procedures Procedure Name Priority Date/Time Associated Diagnosis Comments EGFR Routine 03/01/2024 10:46 AM BULL WHEEL WORKER Malignant neoplasm of urinary bladder, unspecified site (HCC) DIFFERENTIAL AUTO Routine 03/01/2024 10: 46 AM BULL WHEEL WORKER Malignant neoplasm of urinary bladder, unspecified site (HCC) CBC WITH AUTO DIFFERENTIAL Routine 03/01/2024 10:46 AM BULL WHEEL WORKER Malignant neoplasm of urinary bladder, unspecified site (HCC) COMPREHENSIVE METABOLIC PANEL Routine 03/01/2024 10:46 AM BULL WHEEL WORKER Malignant neoplasm of urinary bladder, unspecified site (HCC) documented in this encounter Results * eGFR (03/01/2024 10:46 AM BULL WHEEL WORKER) eGFR >90 >=60 mL/min/1. 73 m2 Comment: Interpretive Data Reference Interval Normal ?>/= 90 mL/min/1.73m2 Mildly decreased* ? 60 - 89 mL/min/1.73m2 Mildly to moderately decreased ?45 - 59 mL/min/1.73m2 Moderately to severely decreased ??30 - 44 mL/min/1.73m2 Severely decreased ?15 - 29 mL/min/1.73m2 Kidney Failure ?< 15 ??mL/min/1.73m2 *Relative to young adult level Estimated glomerular filtration rate is determined by the 2020 CKD-EPI equation recommended by the National Kidney Foundation (A Unifying Approach to GFR Estimation: Recommendations of the NKF-ASK Task Force on Reassessing the Inclusion of Race in Diagnosing Kidney Disease, JASN 2020). The CKD-EPI equation should not be used for patients with unstable renal function and has not been validated in children and those over 70. Current interpretive data was last reviewed 2021. Testing performed by: [address] [address] Blood 03/01/2024 10:4 6 AM BULL WHEEL WORKER 03/01/2024 10:50 AM BULL WHEEL WORKER Venkat Vivar DO LAB BLOOD ORDERABLES Final R esult [facility] [address] [facility] Department of Laboratories [place], [place] [id number] * (ABNORMAL) Differential, auto (03/01/2024 10:46 AM BULL WHEEL WORKER) Neutrophil abs 5.6 1.5 - 6.5 K/cumm Comment:Testing performed by : [address] [address] Imm gran abs 0.1 0.0 - 0.1 K/cumm JAIME Comment:Testing performed by : [address] [address] Lymphocyte abs 0.6(L) 0.8 - 3.3 K/cumm JAIME Comment:Testing performed by : [address] [address] Monocyte abs 1.2(H) 0.2 - 0.8 K/cumm JAIME Comment:Testing performed by : [address] [address] Eosinophil abs 0.1 0.0 - 0.5 K/cumm JAIME Comment:Testing performed by : [address] [address] Basophil abs 0.0 0.0 - 0.1 K/cumm JAIME Comment:Testing performed by : [address] [address] Neutrophil pct 73.8 % JAIME Comment: Interpretive Data Percent cell count reference ranges are not reported, since discordance with absolute values may lead to misinterpretation of CBC data. Current Interpretive Data was last revised on 2017. Testing performed by: [address] [address] Imm gran pct 1.1 % [facility] Comment: Interpretive Data Percent cell count reference ranges are not reported, since discordance with absolute values may lead to misinterpretation of CBC data. Current Interpretive Data was last revised on 2017. Testing performed by: [address] [address] Lymphocyte pct 7.5 % [facility] Comment: Interpretive Data Percent cell count reference ranges are not reported, since discordance with absolute values may lead to misinterpretation of CBC data. Current Interpretive Data was last revised on 2017. Testing performed by: [address] [address] Monocyte pct 16.1 % [facility] Comment: Interpretive Data Percent cell count reference ranges are not reported, since discordance with absolute values may lead to misinterpretation of CBC data. Current Interpretive Data was last revised on 2017. Testing performed by: [address] [address] Eosinophil pct 1.2 % [facility] Comment: Interpretive Data Percent cell count reference ranges are not reported, since discordance with absolute values may lead to misinterpretation of CBC data. Current Interpretive Data was last revised on 2017. Testing performed by: [address] [address] Basophil pct 0.3 % [facility] Comment: Interpretive Data Percent cell count reference ranges are not reported, since discordance with absolute values may lead to misinterpretation of CBC data. Current Interpretive Data was last revised on 2017. Testing performed by: [address] [address] Blood 03/01/2024 10:4 6 AM BULL WHEEL WORKER 03/01/2024 10:50 AM BULL WHEEL WORKER us Venkat Vivar DO LAB BLOOD ORDERABLES Final R esult [facility] [address] [facility] [place] [address] * (ABNORMAL) CBC with auto differential (03/01/2024 10:46 AM BULL WHEEL WORKER) [facility] WBC 7.6 3.8 - 9.9 K/cumm Comment:Testing performed by : [address] [address] Hgb 10.8(L) 13.0 - 17.5 g/dL JAIME Comment:Testing performed by : [address] [address] Hct 31.6(L) 38.9 - 50.3 % JAIME Comment:Testing performed by : [address] [address] Plt 267 150 - 400 K/cumm JAIME Comment:Testing performed by : [address] [address] MPV 8.6(L) 9.1 - 12.3 fL JAIME Comment:Testing performed by : [address] [address] RBC 3.23(L) 4.30 - 5.80 M/cumm JAIME Comment:Testing performed by : [address] [address] MCV 97.8(H) 81.3 - 96.4 fL JAIME Comment:Testing performed by : [address] [address] MCH 33.4(H) 27.1 - 33.3 pg JAIME Comment:Testing performed by : [address] [address] MCHC 34.2 32.3 - 35.7 g/dL JAIME Comment:Testing performed by : [address] [address] RDW CV 16.7(H) 11.1 - 14.9 % JAIME Comment:Testing performed by : [address], [address] RDW SD 54.2(H) 35.7 - 48.1 fL JAIME Comment:Testing performed by : [address] [address] NRBC abs 0.00 0.00 - 0.01 K/cumm JAIME PINEDA Comment:Testing performed by : [address] [address] Blood 03/01/2024 10:4 6 AM BULL WHEEL WORKER 03/01/2024 10:50 AM BULL WHEEL WORKER Venkat Vivar DO LAB BLOOD ORDERABLES Final R esult [facility] [address] [facility] Department [place] [address] * Comprehensive metabolic panel (03/01/2024 10:46 AM BULL WHEEL WORKER) Sodium 138 135 - 145 mmol/L Comment:Testing performed by : [address] [address] Potassium, pl 3.8 3.3 - 4.9 mmol/L JAIME Comment:Testing performed by : [address] [address] Chloride 102 97 - 110 mmol/L JAIME Comment:Testing performed by : [address] [address] CO2 26 22 - 32 mmol/L JAIME Comment:Testing performed by : [address] [address] Anion gap 10 2 - 15 mmol/L JAIME Comment:Testing performed by : [address] [address] BUN 17 6 - 25 mg/dL JAIME Comment:Testing performed by : [address] [address] Creatinine 0.80 0.80 - 1.30 mg/dL JAIME Comment:Testing performed by : [address] [address] Glucose 119 70 - 199 mg/dL JAIME Comment: Interpretive Data Fasting glucose >/= 126 mg/dl is diagnostic for diabetes. ?? Fasting is defined as no caloric intake for at least 8 hours. Fasting glucose between 100 mg/dl to 125 mg/dl is diagnostic of prediabetes. In a patient with classic symptoms of hyperglycemia or hyperglycemic crisis, a random glucose >/= 200 mg/dl is diagnostic for diabetes. In the absence of unequivocal hyperglycemia, results should be confirmed by repeat testing. The classification and Diagnosis of Diabetes Diabetes Care 2021; 46: S19-S40. Current interpretive data was last revised 2022. Testing performed by: [address] [address] Calcium 9.1 8.5 - 10.3 mg/dL JAIME Comment:Testing performed by : [address] [address] Bilirubin, total 0.7 0.1 - 1.2 mg/dL JAIME Comment:Testing performed by : [address] [address] Protein, pl 7.3 6.5 - 8.5 g/dL JAIME Comment:Testing performed by : [address] [address] Albumin 3.9 3.5 - 5.0 g/dL JAIME Comment:Testing performed by : [address] [address] Alk phos 76 40 - 130 Units/L JAIME Comment:Testing performed by : [address] [address] ALT 24 7 - 55 Units/L JAIME Comment:Testing performed by : [address] [address] AST 17 10 - 50 Units/L JAIME Comment:Testing performed by : [address] [address] Blood 03/01/2024 10:4 6 AM BULL WHEEL WORKER 03/01/2024 10:50 AM BULL WHEEL WORKER us Venkat Vivar DO LAB BLOOD ORDERABLES Final R esult [facility] [address] [facility] Department [place] [address] documented in this encounter Visit Diagnoses Diagnosis Malignant neoplasm of urinary bladder, unspecified site (HCC) documented in this encounter Orders Appointment Requests Count Last Ordered Date Fi rst Ordered Date ONCBCN LAB APPOINTMENT 1 03/01/2024 documented in this encounter Care Teams Manager Architectural Relationship Specialty Start Date End Date Nikky Reyes MD [address] [facility] [place] [address] [place], [place] [id number] PCP - General Family Practice 12/15/23 Venkat Vivar DO [address] [facility] [address] [place] [address] Medical Oncologist/Chucking Machine Set Up Operator Tool Hematology and Oncology 12/15/23 Kwaku Martin MD [address] [place] [address] Consulting Physician Urology 12/15/23 Richard Hargrove MD [address] [place] [address] [address] [place], [place] [address] Radiation Oncologist Radiation Oncology 01/08/24 Adelso Qu[place] [address] [address] [place] [address] Surgeon Urology 01/22/24 documented as of this encounter
--- OUTSIDE RECORDS SUMMARY | 2024-04-12 11:34 | XMS_ITS ---
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 Low-Dose Gemcitabine with Concurrent Radiation - Bladder* Plan Start Date: 01/05/2024 Plan Provider:Venkat Vivar DO Linked Problems [facility], unspecified site (HCC) Treatment Medications gemcitabine (GEMZAR)gemcitab ine (GEMZAR) IVPB in 50 mL (using 38 mg/ml gemCITabine) (J9201)gemcitabine IVPB in 50 mL (using 100 mg/ml gemcitabine) (J9196) Past Plans No past plan information found. Radiation Treatments * Plan Last Treated On Elapsed Days Fractions Treated Prescribed Fraction Dose Prescribed Total Dose BLADDER 03/01/2024 28 20 275 cGy 5,500 cGy Reference Point Last Treated On Elapsed Days Session Dose Total Dose BLADDER 03/01/2024 28 0 cGy 5,500 cGy
--- OUTSIDE RECORDS SUMMARY | 2024-04-12 11:34 | XMS_ITS | Clinical Summary ---
Author Organization [facility] [address] Address [address] [place] [address] Care Team Providers Care Unit Nurse Name Role Phone Nikky Reyes MD Primary Care Provider Venkat Vivar DO Unavailable Kwaku Maritn MD Unavailable [phone] Richard Hargrove MD Unavailable [phone] Adelso Quiñones MD Unavailable [phone] Allergies No known active allergies Medications tamsulosin (FLOMAX) 0.4 mg extended release capsule Take 1 capsule (0.4 mg total) by mouth daily 4 Active sacubitriL-louis sartan (ENTRESTO) 49-51 mg tablet Take by mouth 4 Active rosuvastatin (CRESTOR) 20 mg tablet Take 1 tablet (20 mg total) by mouth daily Active levothyroxine (Synthroid) 50 mcg tablet Take 1 tablet (50 mcg total) by mouth 4 Active furosemide (LASIX) 40 mg tablet Take 1 tablet (40 mg total) by mouth 4 Active aspirin 81 mg enteric coated tablet Take 1 tablet (81 mg total) by mouth 4 Active ascorbic acid (VITAMIN C) 1,000 mg tablet Take 1 tablet (1,000 mg total) by mouth daily Active clopidogreL (PLAVIX) 75 mg tablet Take 1 tablet (75 mg total) by mouth daily Active nitroglycerin (NITROSTAT) 0.4 mg SL tablet 1 tablet (0.4 mg total) as needed for chest pain 4 Active metoprolol XL (TOPROL-XL) 25 mg extended release tablet TAKE 1/2 OF A TABLET BY MOUTH EVERY DAY 4 Active metoclopramide (REGLAN) 10 mg tablet TAKE 1 TABLET BY MOUTH THREE TIMES A DAY 90 tablet 5 Active metoclopramide (REGLAN) 10 mg tablet Take 1 tablet (10 mg total) by mouth 3 (three) times a day 90 tablet 4 04/05/19 25 Discontinued Active Problems Problem Noted Date Diagnosed Date Personal history of radiation therapy 04/08/2024 Chronic diastolic congestive heart failure (CMS/ HCC) 01/06/2024 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) 01/06/2024 Malignant neoplasm of urinary bladder 01/05/2024 Cancer Staging:Clinical stage from 12/05/2023:Stage II(cT2, cN0, cM0) - Signed by Chayo Card MD on 01/22/2024 Encounter for person encountering health service s 01/05/2024 Encounters Date Type Department Care Team Description 03/08/2024 Telephone [facility] [address] [place] [phone] Laura Arias RN 03/01/2024 10:45 AM NATIONAL ACCOUNT DIRECTOR Office Visit [facility] [address] [place] [phone] Venkat Vivar DO 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); Malignant neoplasm of urinary bladder, unspecified site (HCC); Anemia due to chemotherapy 03/01/2024 10:00 AM NATIONAL ACCOUNT DIRECTOR Lab [facility] at [address] [phone] Malignant neoplasm of urinary bladder, unspecified site (HCC) 03/01/2024 9:30 AM NATIONAL ACCOUNT DIRECTOR Treatment [facility] Medical Office Building 2 Radiation Oncology [address] [place] [phone] Richard Hargrove MD 03/01/2024 Completion of Therapy [facility] Medical Office Building 2 Radiation Oncology [address] [place] [address] Richard Hargrove MD 03/01/2024 Orders Only RAD ONC TREATMENTS Miscellaneous, Not In File 03/01/2024 OTV [facility] Office Building 2 Radiation Oncology [address] [place] [address] Richard Hargrove MD 03/01/2024 Orders Only RAD ONC TREATMENTS Miscellaneous, Not In File 02/25/2024 9:30 AM NATIONAL ACCOUNT DIRECTOR Treatment [facility] Office Building 2 Radiation Oncology [address] [place] [address] 02/25/2024 12:39 AM NATIONAL ACCOUNT DIRECTOR - 02/25/2024 4:06 AM NATIONAL ACCOUNT DIRECTOR Emergency [facility] Emergency Department [facility] [place] [address] Kwaku Roland Jr., MD Abdominal pain (Primary Dx); Constipation, unspecified constipation type; Colitis Discharge Disposition: Discharge to home or self care 02/25/2024 Orders Only RAD ONC TREATMENTS Miscellaneous, Not In File 02/24/2024 9:30 AM NATIONAL ACCOUNT DIRECTOR Treatment [facility] Medical Office Building 2 Radiation Oncology [address] [place] [address] 02/24/2024 Telephone [facility] Medical Office [facility] 2 Radiation Oncology [address] [place] [address] Ibeth Jo, ODILON 02/24/2024 Orders Only RAD ONC TREATMENTS Miscellaneous, Not In File 02/23/2024 11:00 AM NATIONAL ACCOUNT DIRECTOR Infusion [facility] at [address] [phone] Malignant neoplasm of urinary bladder, unspecified site (HCC) (Primary Dx); Encounter for person encountering health services 02/23/2024 10:15 AM NATIONAL ACCOUNT DIRECTOR Lab [facility] at [address] [address] Encounter for person encountering health services; Malignant neoplasm of urinary bladder, unspecified site (HCC) 02/23/2024 9:30 AM NATIONAL ACCOUNT DIRECTOR Treatment [facility] Medical Office Building 2 Radiation Oncology [address] [place] [address] 02/23/2024 OTV [facility] Office Building 2 Radiation Oncology [address] [place] [address] Richard Hargrove MD 02/23/2024 Orders Only RAD ONC TREATMENTS Miscellaneous, Not In File 02/22/2024 9:30 AM NATIONAL ACCOUNT DIRECTOR Treatment [facility] Office Building 2 Radiation Oncology [address] [place] [address] 02/22/2024 Orders Only [facility] [address] [place] [phone] Venkat Vivar DO 02/22/2024 Orders Only RAD ONC TREATMENTS Miscellaneous, Not In File 02/20/2024 9:30 AM NATIONAL ACCOUNT DIRECTOR Treatment [facility] Medical Office Building 2 Radiation Oncology [address] [place] [address] 02/20/2024 Documentation [facility] Office [facility] 2 Radiation Oncology [address] [place] [address] Ibeth Jo RN 02/20/2024 Orders Only RAD ONC TREATMENTS Miscellaneous, Not In File 02/19/2024 11:45 AM NATIONAL ACCOUNT DIRECTOR Infusion [facility] at [address] [phone] Malignant neoplasm of urinary bladder, unspecified site (HCC) (Primary Dx); Encounter for person encountering health services 02/19/2024 11:00 AM NATIONAL ACCOUNT DIRECTOR [facility] at [address] [address] Encounter for person encountering health services; Malignant neoplasm of urinary bladder, unspecified site (HCC) 02/19/2024 9:45 AM NATIONAL ACCOUNT DIRECTOR Clinical Support [facility] Medical Office Building 2 Radiation Oncology [address] [place] [address] Malignant neoplasm of urinary bladder, unspecified site (HCC) (Primary Dx) 02/19/2024 9:30 AM NATIONAL ACCOUNT DIRECTOR Treatment [facility] Medical Office Building 2 Radiation Oncology [address] [place] [address] 02/19/2024 Orders Only RAD ONC TREATMENTS Miscellaneous, Not In File 02/18/2024 9:30 AM NATIONAL ACCOUNT DIRECTOR Treatment [facility] Medical Office Building 2 Radiation Oncology [address] [place] [address] 02/18/2024 Orders Only [facility] [address] [place] [phone] Venkat Vivar DO 02/18/2024 Orders Only RAD ONC TREATMENTS Miscellaneous, Not In File 02/17/2024 9:30 AM NATIONAL ACCOUNT DIRECTOR Treatment [facility] Office Building 2 Radiation Oncology [address] [place] [address] 02/17/2024 Orders Only RAD ONC TREATMENTS Miscellaneous, Not In File 02/16/2024 11:30 AM NATIONAL ACCOUNT DIRECTOR Treatment [facility] Office [facility] 2 Radiation Oncology [address] [place] [address] 02/16/2024 8:30 AM NATIONAL ACCOUNT DIRECTOR [address] [phone] Malignant neoplasm of urinary bladder, unspecified site (HCC) (Primary Dx); Encounter for person encountering health services 02/16/2024 8:00 AM NATIONAL ACCOUNT DIRECTOR Office Visit [facility] [address] [place] [phone] Venkat Vivar DO Malignant neoplasm of urinary bladder, unspecified site (HCC) (Primary Dx); Encounter for person encountering health services 02/16/2024 7:30 AM NATIONAL ACCOUNT DIRECTOR [address] [address] Encounter for person encountering health services; Malignant neoplasm of urinary bladder, unspecified site (HCC) 02/16/2024 Orders Only RAD ONC TREATMENTS Miscellaneous, Not In File 02/15/2024 Orders Only [facility] [address] [place] [phone] Venkat Vivar, DO 02/13/2024 8:30 AM NATIONAL ACCOUNT DIRECTOR Treatment [facility] Office Building 2 Radiation Oncology [address] [place] [phone] 02/13/2024 OTV [facility] Office Building 2 Radiation Oncology [address] [place] [address] Richard Hargrove MD 02/13/2024 Orders Only RAD ONC TREATMENTS Miscellaneous, Not In File 02/12/2024 2:15 PM NATIONAL ACCOUNT DIRECTOR Infusion [facility] at [address] [phone] Malignant neoplasm of urinary bladder, unspecified site (HCC) (Primary Dx); Encounter for person encountering health services 02/12/2024 1:15 PM NATIONAL ACCOUNT DIRECTOR Lab [facility] at [address] [address] Encounter for person encountering health services; Malignant neoplasm of urinary bladder, unspecified site (HCC) 02/12/2024 12:45 PM NATIONAL ACCOUNT DIRECTOR Treatment [facility] Office [facility] 2 Radiation Oncology [address] [place] [address] 02/12/2024 Orders Only RAD ONC TREATMENTS Miscellaneous, Not In File 02/12/2024 Orders Only [facility] [address] [place] [phone] Venkat Vivar, DO 02/11/2024 8:30 AM NATIONAL ACCOUNT DIRECTOR Treatment [facility] Building 2 Radiation Oncology [address] [place] [address] 02/11/2024 Orders Only RAD ONC TREATMENTS Miscellaneous, Not In File 02/10/2024 8:30 AM NATIONAL ACCOUNT DIRECTOR Treatment [facility] Office Building 2 Radiation Oncology [address] [place] [address] 02/10/2024 Orders Only RAD ONC TREATMENTS Miscellaneous, Not In File 02/09/2024 2:30 PM NATIONAL ACCOUNT DIRECTOR Infusion [facility] at [address] [place] [phone] Malignant neoplasm of urinary bladder, unspecified site (HCC) (Primary Dx); Encounter for person encountering health services 02/09/2024 1:15 PM NATIONAL ACCOUNT DIRECTOR Lab [facility] at [address] [address] Encounter for person encountering health services; Malignant neoplasm of urinary bladder, unspecified site (HCC) 02/09/2024 1:00 PM NATIONAL ACCOUNT DIRECTOR Treatment [facility] Office Building 2 Radiation Oncology [address] [place] [address] 02/09/2024 Orders Only RAD ONC TREATMENTS Miscellaneous, Not In File 02/08/2024 Orders Only [facility] [address] [place] [address] [place] [phone] Venkat Vivar DO 02/06/2024 9:30 AM NATIONAL ACCOUNT DIRECTOR Treatment [facility] Office Building 2 Radiation Oncology [address] [place] [address] 02/06/2024 OTV [facility] Office Building 2 Radiation Oncology [address] [place] [address] Richard Hargrove MD 02/06/2024 Orders Only RAD ONC TREATMENTS Miscellaneous, Not In File 02/05/2024 2:00 PM NATIONAL ACCOUNT DIRECTOR Infusion [facility] at [address] [phone] Malignant neoplasm of urinary bladder, unspecified site (HCC) (Primary Dx); Encounter for person encountering health services 02/05/2024 1:15 PM NATIONAL ACCOUNT DIRECTOR Lab [facility] at [address] [address] Encounter for person encountering health services; Malignant neoplasm of urinary bladder, unspecified site (HCC) 02/05/2024 12:45 PM NATIONAL ACCOUNT DIRECTOR Treatment [facility] Office Building 2 Radiation Oncology [address] [place] [address] 02/05/2024 Orders Only RAD ONC TREATMENTS Miscellaneous, Not In File 02/04/2024 1:45 PM NATIONAL ACCOUNT DIRECTOR Treatment [facility] Office Building 2 Radiation Oncology [address] [place] [address] 02/04/2024 Orders Only [facility] [address] [place] [phone] Venkat Vivar DO Encounter for person encountering health services (Primary Dx); Malignant neoplasm of urinary bladder, unspecified site (HCC) 02/04/2024 Orders Only RAD ONC TREATMENTS Miscellaneous, Not In File 02/03/2024 8:15 AM NATIONAL ACCOUNT DIRECTOR Treatment [facility] 2 Radiation Oncology [address] [place] [address] 02/03/2024 Orders Only RAD ONC TREATMENTS Miscellaneous, Not In File 2024 1:00 PM NATIONAL ACCOUNT DIRECTOR [facility] at [address] [phone] Malignant neoplasm of urinary bladder, unspecified site (HCC) (Primary Dx); Encounter for person encountering health services 2024 12:15 PM NATIONAL ACCOUNT DIRECTOR [facility] at [address] [address] Encounter for person encountering health services; Malignant neoplasm of urinary bladder, unspecified site (HCC) 2024 11:20 AM NATIONAL ACCOUNT DIRECTOR [facility] 2 Radiation Oncology [address] [place] [address] Richard Hargrove MD 2024 11:15 AM NATIONAL ACCOUNT DIRECTOR [facility] 2 Radiation Oncology [address] [place] [address] Richard Hargrove MD 2024 Orders Only RAD ONC TREATMENTS Miscellaneous, Not In File 2024 Orders Only [facility] [address] [place] [address] [address] [place] [phone] Venkat Vivar DO 01/30/2024 7:55 PM CDT Treatment [facility] Office Building 2 Radiation Oncology [address] [place] [address] 01/23/2024 Orders Only [facility] [address] [place] [phone] Venkat Vivar DO Encounter for person encountering health services (Primary Dx); Malignant neoplasm of urinary bladder, unspecified site (HCC) 01/22/2024 1:30 PM CDT Treatment [facility] Office Building 2 Radiation Oncology [address] [place] [address] Richard Hargrove MD 01/22/2024 1:00 PM CDT Consult [facility] Medical Office Building 2 Radiation Oncology [address] [place] [address] Richard Hargrove MD Malignant neoplasm of urinary bladder, unspecified site (HCC) from Last 3 Months Surgical History Surgery Date Site/Laterality Comments CHOLECYSTECTOMY CARDIAC SURGERY CYSTOSCOPY W/ URETERAL STENT PLACEMENT Medical History Medical History Date Comments Cardiomyopathy (HCC) Coronary artery disease Hyperlipidemia Hypothyroidism BPH (benign prostatic hyperplasia) Bladder cancer (HCC) Family History Medical History Relation Name Comments Cancer Brother Heart disease Brother Heart disease Father No Known Problems Maternal Grandfather No Known Problems Maternal Grandmother Heart disease Mother No Known Problems Paternal Grandfather No Known Problems Paternal Grandmother Cancer Sister Heart disease Sister Relation Name Status Comments Brother Father Maternal Grandfather Maternal Grandmother Mother Paternal Grandfather Paternal Grandmother Sister Alive Social History Tobacco Use Types Packs/Day Years Used Date Smoking Tobacco: Never Smokeless Tobacco: Never Tobacco Cessation:Counseling Given: Not Answered AUDIT-C Answer Date Recorded Q1: How often [...] on file Legal Sex Male 2:03 AM NATIONAL ACCOUNT DIRECTOR Gender Identity Not on file Sexual Orientation Not on file Occupation Industry Job Start Date Job End Date Retired Not on file Not on file Not on file Obstetrics History Last Filed Vital Signs Vital Sign Reading Time Taken Comments Blood Pressure 118/75 03/01/2024 11:02 AM NATIONAL ACCOUNT DIRECTOR Pulse 60 03/01/2024 11:02 AM NATIONAL ACCOUNT DIRECTOR Temperature 36.8 ??C (98.2 ??F) 03/01/2024 11:[address] Respiratory Rate 18 03/01/2024 11:02 AM NATIONAL ACCOUNT DIRECTOR Oxygen Saturation 97% 03/01/2024 11:02 AM NATIONAL ACCOUNT DIRECTOR Inhaled Oxygen Concentration - - Weight 87.3 kg (192 lb 6.4 oz) 03/01/2024 11:02 AM NATIONAL ACCOUNT DIRECTOR no shoes Height 185.4 cm (6' 1 ) 02/25/2024 12:13 AM NATIONAL ACCOUNT DIRECTOR Body Mass Index 25.38 02/25/2024 12:13 AM NATIONAL ACCOUNT DIRECTOR Plan of Treatment Health Maintenance Due Date Last Done Comments Depression Screening 1950 Hepatitis C Screening 1950 Hepatitis B Screening 02/01/1966 Zoster Vaccine (1 of 2) 02/01/1967 Well Visit 65+ 02/01/2013 Influenza Vaccine (#1) 2023 0, 03/09/2019, 02/03/2018, Additional history exists Fall Risk Assessment 01/21/2025 01/22/2024 DTaP/Tdap/Td Vaccine (2 - Td or Tdap) 11/22/2025 11/23/2015 Pneumococcal vaccine 65+ Completed 02/13/2023 Procedures Procedure Name Priority Date/Time Associated Diagnosis Comments RAD ONC ARIA COURSE SUMMARY 03/01/2024 4:28 PM NATIONAL ACCOUNT DIRECTOR EGFR Routine 03/01/2024 10:46 AM NATIONAL ACCOUNT DIRECTOR Malignant neoplasm of urinary bladder, unspecified site (HCC) DIFFERENTIAL AUTO Routine 03/01/2024 10: 46 AM NATIONAL ACCOUNT DIRECTOR Malignant neoplasm of urinary bladder, unspecified site (HCC) CBC WITH AUTO DIFFERENTIAL Routine 03/01/2024 10:46 AM NATIONAL ACCOUNT DIRECTOR Malignant neoplasm of urinary bladder, unspecified site (HCC) COMPREHENSIVE METABOLIC PANEL Routine 03/01/2024 10:46 AM NATIONAL ACCOUNT DIRECTOR Malignant neoplasm of urinary bladder, unspecified site (HCC) RAD ONC ARIA SESSION SUMMARY 03/01/2024 9:55 AM NATIONAL ACCOUNT DIRECTOR RAD ONC ARIA SESSION SUMMARY 02/25/2024 9:45 AM NATIONAL ACCOUNT DIRECTOR CT ABDOMEN PELVIS W CONTRAST ED 02/25/2024 1:24 AM NATIONAL ACCOUNT DIRECTOR EGFR STAT 02/25/2024 12:21 AM NATIONAL ACCOUNT DIRECTOR DIFFERENTIAL AUTO STAT 02/25/2024 12: 21 AM NATIONAL ACCOUNT DIRECTOR LIPASE STAT 02/25/2024 12:21 AM NATIONAL ACCOUNT DIRECTOR COMPREHENSIVE METABOLIC PANEL STAT 02/25/2024 12:21 AM NATIONAL ACCOUNT DIRECTOR CBC WITH AUTO DIFFERENTIAL STAT 02/25/2024 12:21 AM NATIONAL ACCOUNT DIRECTOR RAD ONC ARIA SESSION SUMMARY 02/24/2024 9:44 AM NATIONAL ACCOUNT DIRECTOR EGFR Routine 02/23/2024 11:02 AM NATIONAL ACCOUNT DIRECTOR Encounter for person encountering health services Malignant neoplasm of urinary bladder, unspecified site (HCC) DIFFERENTIAL AUTO Routine 02/23/2024 11: 02 AM NATIONAL ACCOUNT DIRECTOR Encounter for person encountering health services Malignant neoplasm of urinary bladder, unspecified site (HCC) COMPREHENSIVE METABOLIC PANEL Routine 02/23/2024 11:02 AM NATIONAL ACCOUNT DIRECTOR Encounter for person encountering health services Malignant neoplasm of urinary bladder, unspecified site (HCC) CBC WITH AUTO DIFFERENTIAL Routine 02/23/2024 11:02 AM NATIONAL ACCOUNT DIRECTOR Encounter for person encountering health services Malignant neoplasm of urinary bladder, unspecified site (HCC) RAD ONC ARIA SESSION SUMMARY 02/23/2024 9:45 AM NATIONAL ACCOUNT DIRECTOR RAD ONC ARIA SESSION SUMMARY 02/22/2024 9:35 AM NATIONAL ACCOUNT DIRECTOR RAD ONC ARIA SESSION SUMMARY 02/20/2024 9:41 AM NATIONAL ACCOUNT DIRECTOR EGFR Routine 02/19/2024 11:23 AM NATIONAL ACCOUNT DIRECTOR Encounter for person encountering health services Malignant neoplasm of urinary bladder, unspecified site (HCC) DIFFERENTIAL AUTO Routine 02/19/2024 11: 23 AM NATIONAL ACCOUNT DIRECTOR Encounter for person encountering health services Malignant neoplasm of urinary bladder, unspecified site (HCC) COMPREHENSIVE METABOLIC PANEL Routine 02/19/2024 11:23 AM NATIONAL ACCOUNT DIRECTOR Encounter for person encountering health services Malignant neoplasm of urinary bladder, unspecified site (HCC) CBC WITH AUTO DIFFERENTIAL Routine 02/19/2024 11:23 AM NATIONAL ACCOUNT DIRECTOR Encounter for person encountering health services Malignant neoplasm of urinary bladder, unspecified site (HCC) RAD ONC ARIA SESSION SUMMARY 02/19/2024 9:52 AM NATIONAL ACCOUNT DIRECTOR RAD ONC ARIA SESSION SUMMARY 02/18/2024 9:43 AM NATIONAL ACCOUNT DIRECTOR RAD ONC ARIA SESSION SUMMARY 02/17/2024 9:40 AM NATIONAL ACCOUNT DIRECTOR RAD ONC ARIA SESSION SUMMARY 02/16/2024 11:16 AM NATIONAL ACCOUNT DIRECTOR EGFR Routine 02/16/2024 7:36 AM NATIONAL ACCOUNT DIRECTOR Encounter for person encountering health services Malignant neoplasm of urinary bladder, unspecified site (HCC) DIFFERENTIAL AUTO Routine 02/16/2024 7:3 6 AM NATIONAL ACCOUNT DIRECTOR Encounter for person encountering health services Malignant neoplasm of urinary bladder, unspecified site (HCC) COMPREHENSIVE METABOLIC PANEL Routine 02/16/2024 7:36 AM NATIONAL ACCOUNT DIRECTOR Encounter for person encountering health services Malignant neoplasm of urinary bladder, unspecified site (HCC) CBC WITH AUTO DIFFERENTIAL Routine 02/16/2024 7:36 AM NATIONAL ACCOUNT DIRECTOR Encounter for person encountering health services Malignant neoplasm of urinary bladder, unspecified site (HCC) RAD ONC ARIA SESSION SUMMARY 02/13/2024 8:43 AM NATIONAL ACCOUNT DIRECTOR EGFR Routine 02/12/2024 1:17 PM NATIONAL ACCOUNT DIRECTOR Encounter for person encountering health services Malignant neoplasm of urinary bladder, unspecified site (HCC) DIFFERENTIAL AUTO Routine 02/12/2024 1:1 7 PM NATIONAL ACCOUNT DIRECTOR Encounter for person encountering health services Malignant neoplasm of urinary bladder, unspecified site (HCC) COMPREHENSIVE METABOLIC PANEL Routine 02/12/2024 1:17 PM NATIONAL ACCOUNT DIRECTOR Encounter for person encountering health services Malignant neoplasm of urinary bladder, unspecified site (HCC) CBC WITH AUTO DIFFERENTIAL Routine 02/12/2024 1:17 PM NATIONAL ACCOUNT DIRECTOR Encounter for person encountering health services Malignant neoplasm of urinary bladder, unspecified site (HCC) RAD ONC ARIA SESSION SUMMARY 02/12/2024 1:05 PM NATIONAL ACCOUNT DIRECTOR RAD ONC ARIA SESSION SUMMARY 02/11/2024 8:47 AM NATIONAL ACCOUNT DIRECTOR RAD ONC ARIA SESSION SUMMARY 02/10/2024 8:44 AM NATIONAL ACCOUNT DIRECTOR EGFR Routine 02/09/2024 1:26 PM NATIONAL ACCOUNT DIRECTOR Encounter for person encountering health services Malignant neoplasm of urinary bladder, unspecified site (HCC) DIFFERENTIAL AUTO Routine 02/09/2024 1:2 6 PM NATIONAL ACCOUNT DIRECTOR Encounter for person encountering health services Malignant neoplasm of urinary bladder, unspecified site (HCC) COMPREHENSIVE METABOLIC PANEL Routine 02/09/2024 1:26 PM NATIONAL ACCOUNT DIRECTOR Encounter for person encountering health services Malignant neoplasm of urinary bladder, unspecified site (HCC) CBC WITH AUTO DIFFERENTIAL Routine 02/09/2024 1:26 PM NATIONAL ACCOUNT DIRECTOR Encounter for person encountering health services Malignant neoplasm of urinary bladder, unspecified site (HCC) RAD ONC ARIA SESSION SUMMARY 02/09/2024 1:16 PM NATIONAL ACCOUNT DIRECTOR RAD ONC ARIA SESSION SUMMARY 02/06/2024 9:41 AM NATIONAL ACCOUNT DIRECTOR EGFR Routine 02/05/2024 1:18 PM NATIONAL ACCOUNT DIRECTOR Encounter for person encountering health services Malignant neoplasm of urinary bladder, unspecified site (HCC) DIFFERENTIAL AUTO Routine 02/05/2024 1:1 8 PM NATIONAL ACCOUNT DIRECTOR Encounter for person encountering health services Malignant neoplasm of urinary bladder, unspecified site (HCC) COMPREHENSIVE METABOLIC PANEL Routine 02/05/2024 1:18 PM NATIONAL ACCOUNT DIRECTOR Encounter for person encountering health services Malignant neoplasm of urinary bladder, unspecified site (HCC) CBC WITH AUTO DIFFERENTIAL Routine 02/05/2024 1:18 PM NATIONAL ACCOUNT DIRECTOR Encounter for person encountering health services Malignant neoplasm of urinary bladder, unspecified site (HCC) RAD ONC ARIA SESSION SUMMARY 02/05/2024 12:55 PM NATIONAL ACCOUNT DIRECTOR RAD ONC ARIA SESSION SUMMARY 02/04/2024 1:54 PM NATIONAL ACCOUNT DIRECTOR RAD ONC ARIA SESSION SUMMARY 02/03/2024 8:21 AM NATIONAL ACCOUNT DIRECTOR EGFR Routine 2024 12:47 PM NATIONAL ACCOUNT DIRECTOR Encounter for person encountering health services Malignant neoplasm of urinary bladder, unspecified site (HCC) DIFFERENTIAL AUTO Routine 2024 12: 47 PM NATIONAL ACCOUNT DIRECTOR Encounter for person encountering health services Malignant neoplasm of urinary bladder, unspecified site (HCC) COMPREHENSIVE METABOLIC PANEL Routine 2024 12:47 PM NATIONAL ACCOUNT DIRECTOR Encounter for person encountering health services Malignant neoplasm of urinary bladder, unspecified site (HCC) CBC WITH AUTO DIFFERENTIAL Routine 2024 12:47 PM NATIONAL ACCOUNT DIRECTOR Encounter for person encountering health services Malignant neoplasm of urinary bladder, unspecified site (HCC) RAD ONC ARIA SESSION SUMMARY 2024 11:28 AM NATIONAL ACCOUNT DIRECTOR from Last 3 Months Results * RAD ONC ARIA COURSE SUMMARY (03/01/2024 4:28 PM NATIONAL ACCOUNT DIRECTOR) Course Name C1_BLADDER_ 2023 ARIA Course Plan Date 01/22/2024 3:44 PM ARIA Elapsed Days 28 ARIA Treatment Start Date 2024 ARIA Treatment Site BLADDER ARIA Dose Given To Date (cGy) 5,500 ARIA Session Dosage Given (cGy) 0 ARIA Plan ID BLADDER ARIA Fractions Treated 20 ARIA Prescribed Dose Per Fraction (cGy) 275 ARIA Prescribed Total Dose (cGy) 5,500 ARIA 03/01/2024 4:28 PM NATIONAL ACCOUNT DIRECTOR us Not In File Miscellaneous RADIATION ONCOLOGY ORD ERABLES Final Result ARIA * eGFR (03/01/2024 10:46 AM NATIONAL ACCOUNT DIRECTOR) eGFR >90 >=60 mL/min/1. 73 m2 Comment: [...] of Race in Diagnosing Kidney Disease, JASN 202). The CKD-EPI equation should not be used for patients with unstable renal function and has not been validated in children and those over 70. Current interpretive data was last reviewed 2021. Testing performed by: [address] [address] Blood 03/01/2024 10:4 6 AM NATIONAL ACCOUNT DIRECTOR 03/01/2024 10:50 AM NATIONAL ACCOUNT DIRECTOR us Venkat Vivar DO LAB BLOOD ORDERABLES Final R esult JAIME [address] [facility] Department [place] [address] * (ABNORMAL) Differential, auto (03/01/2024 10:46 AM NATIONAL ACCOUNT DIRECTOR) Neutrophil abs 5.6 1.5 - 6.5 K/cumm Comment:Testing performed by : [address] [address] Imm gran abs 0.1 0.0 - 0.1 K/cumm JAIME PINEDA Comment:Testing performed by : [address] [address] Lymphocyte abs 0.6(L) 0.8 - 3.3 K/cumm JAIME PINEDA Comment:Testing performed by : [address] [address] Monocyte abs 1.2(H) 0.2 - 0.8 K/cumm JAIME Comment:Testing performed by : [address] [address] Eosinophil abs 0.1 0.0 - 0.5 K/cumm JAIME Comment:Testing performed by : [address] [address] Basophil abs 0.0 0.0 - 0.1 K/cumm [facility] Comment:Testing performed by : [address] [address] Neutrophil pct 73.8 % [facility] Comment: Interpretive Data Percent cell count reference ranges are not reported, since discordance with absolute values may lead to misinterpretation of CBC data. Current Interpretive Data was last revised on 2017. Testing performed by: [address] [address] Imm gran pct 1.1 % [facility] Comment: Interpretive Data Percent cell count reference ranges are not reported, since discordance with absolute values may lead to misinterpretation of CBC data. Current Interpretive Data was last revised on 2017. Testing performed by: [address] [address] Lymphocyte pct 7.5 % [facility] Comment: Interpretive Data Percent cell count reference ranges are not reported, since discordance with absolute values may lead to misinterpretation of CBC data. Current Interpretive Data was last revised on 2017. Testing performed by: [address] [address] Monocyte pct 16.1 % [facility] Comment: Interpretive Data Percent cell count reference ranges are not reported, since discordance with absolute values may lead to misinterpretation of CBC data. Current Interpretive Data was last revised on 2017. Testing performed by: [address] [address] Eosinophil pct 1.2 % [facility] Comment: Interpretive Data Percent cell count reference ranges are not reported, since discordance with absolute values may lead to misinterpretation of CBC data. Current Interpretive Data was last revised on 2017. Testing performed by: [address] [address] Basophil pct 0.3 % [facility] Comment: Interpretive Data Percent cell count reference ranges are not reported, since discordance with absolute values may lead to misinterpretation of CBC data. Current Interpretive Data was last revised on 2017. Testing performed by: [address] [address] Blood 03/01/2024 10:4 6 AM NATIONAL ACCOUNT DIRECTOR 03/01/2024 10:50 AM NATIONAL ACCOUNT DIRECTOR Venkat Vivar DO LAB BLOOD ORDERABLES Final R esult [facility] [facility] Department [place] [address] * (ABNORMAL) CBC with auto differential (03/01/2024 10:46 AM NATIONAL ACCOUNT DIRECTOR) WBC 7.6 3.8 - 9.9 K/cumm Comment:Testing performed by : [address] [address] Hgb 10.8(L) 13.0 - 17.5 g/dL JAIME Comment:Testing performed by : [address] [address] Hct 31.6(L) 38.9 - 50.3 % JAIME Comment:Testing performed by : [address] [address] Plt 267 150 - 400 K/cumm JAIME Comment:Testing performed by : [address] [address] MPV 8.6(L) 9.1 - 12.3 fL JAIME Comment:Testing performed by : [address] [address] RBC 3.23(L) 4.30 - 5.80 M/cumm JAIME Comment:Testing performed by : [address] [address] MCV 97.8(H) 81.3 - 96.4 fL JAIME Comment:Testing performed by : [address] [address] MCH 33.4(H) 27.1 - 33.3 pg JAIME PINEDA Comment:Testing performed by : [address] [address] MCHC 34.2 32.3 - 35.7 g/dL JIAME PINEDA Comment:Testing performed by : [address] [address] RDW CV 16.7(H) 11.1 - 14.9 % JAIME PINEDA Comment:Testing performed by : [address] [address] RDW SD 54.2(H) 35.7 - 48.1 fL JAIME PINEDA Comment:Testing performed by : [address] [address] NRBC abs 0.00 0.00 - 0.01 K/cumm JAIME PINEDA Comment:Testing performed by : [address] [address] Blood 03/01/2024 10:4 6 AM NATIONAL ACCOUNT DIRECTOR 03/01/2024 10:50 AM NATIONAL ACCOUNT DIRECTOR us Venkat Vivar DO LAB BLOOD ORDERABLES Final R esult JAIME [address] [facility] Department of Laboratories [place], [place] [id number] * Comprehensive metabolic panel (03/01/2024 10:46 AM NATIONAL ACCOUNT DIRECTOR) Sodium 138 135 - 145 mmol/L Comment:Testing performed by : [address] [address] Potassium, pl 3.8 3.3 - 4.9 mmol/L JAIME PINEDA Comment:Testing performed by : [address] [address] Chloride 102 97 - 110 mmol/L JAIME PINEDA Comment:Testing performed by : [address] [address] CO2 26 22 - 32 mmol/L JAIME PINEDA Comment:Testing performed by : [address] [address] Anion gap 10 2 - 15 mmol/L JAIME Comment:Testing performed by : [address] [address] BUN 17 6 - 25 mg/dL JAIME Comment:Testing performed by : [address] [address] Creatinine 0.80 0.80 - 1.30 mg/dL JAIME Comment:Testing performed by : [address] [address] Glucose 119 70 - 199 mg/dL [facility] Comment: Interpretive Data Fasting glucose >/= 126 [...] classification and Diagnosis of Diabetes Diabetes Care 202; 46: S19-S40. Current interpretive data was last revised 2022. Testing performed by: [address] [address] Calcium 9.1 8.5 - 10.3 mg/dL [facility] Comment:Testing performed by : [address] [address] Bilirubin, total 0.7 0.1 - 1.2 mg/dL [facility] Comment:Testing performed by : [address] [address] Protein, pl 7.3 6.5 - 8.5 g/dL [facility] Comment:Testing performed by : [address] [address] Albumin 3.9 3.5 - 5.0 g/dL JAIME Comment:Testing performed by : [address] [address] Alk phos 76 40 - 130 Units/L JAIME Comment:Testing performed by : [address] [address] ALT 24 7 - 55 Units/L JAIME Comment:Testing performed by : [facility], [address] [place] [address]., [address] AST 17 10 - 50 Units/L JAIME Comment:Testing performed by : [facility], [address] [place] [address]., [address] Blood 03/01/2024 10:4 6 AM NATIONAL ACCOUNT DIRECTOR 03/01/2024 10:50 AM NATIONAL ACCOUNT DIRECTOR us Venkat Vivar DO LAB BLOOD ORDERABLES Final R esult JAIME [address] [facility] Department [place] [address] * RAD ONC ARIA SESSION SUMMARY (03/01/2024 9:55 AM NATIONAL ACCOUNT DIRECTOR) Course Name C1_BLADDER_ 2023 ARIA Course Plan Date 01/22/2024 3:44 PM ARIA Elapsed Days 28 ARIA Treatment Start Date 2024 ARIA Treatment Site BLADDER ARIA Dose Given To Date (cGy) 5,500 ARIA Session Dosage Given (cGy) 275 ARIA Plan ID BLADDER ARIA Fractions Treated 20 ARIA Prescribed Dose Per Fraction (cGy) 275 ARIA Prescribed Total Dose (cGy) 5,500 ARIA 03/01/2024 9:55 AM NATIONAL ACCOUNT DIRECTOR us Not In File Miscellaneous RADIATION ONCOLOGY ORD ERABLES Final Result ARIGeetha * RAD ONC ARIA SESSION SUMMARY (02/25/2024 9:45 AM NATIONAL ACCOUNT DIRECTOR) Course Name C1_BLADDER_ 2023 ARIA Course Plan Date 01/22/2024 3:44 PM ARIA Elapsed Days 23 ARIA Treatment Start Date 2024 ARIA Treatment Site BLADDER ARIA Dose Given To Date (cGy) 5,225 ARIA Session Dosage Given (cGy) 275 ARIA Plan ID BLADDER ARIA Fractions Treated 19 ARIA Prescribed Dose Per Fraction (cGy) 275 ARIA Prescribed Total Dose (cGy) 5,500 ARIA 02/25/2024 9:45 AM NATIONAL ACCOUNT DIRECTOR us Not In File Miscellaneous RADIATION ONCOLOGY ORD ERABLES Final Result ARIA * CT Abdomen Pelvis W Contrast (02/25/2024 1:24 AM NATIONAL ACCOUNT DIRECTOR) Anatomical Region Laterality Modality Body N/A Computed Tomogra phy 02/25/2024 1:32 AM NATIONAL ACCOUNT DIRECTOR Narrative 02/25/2024 1:44 AM NATIONAL ACCOUNT DIRECTOR EXAM DESCRIPTION: ?? CT ABDOMEN PELVIS W CONTRAST REASON FOR STUDY: ?? Bowel obstruction suspected ?? Pt arrives with c/o constipation x 1 week with worsening abdominal pain and vomiting tonight. Pt reports that his doctor prescribed laxatives and stool softeners without relief. Chemo and radiation for bladder cancer. ? TECHNIQUE: CT scan of the abdomen and pelvis performed with intravenous and ?? without ??oral contrast using helical scanning technique with dynamic intravenous contrast injection. Reconstructed coronal and sagittal MPR images reviewed. All images stored on PACS. Automated exposure control was used as a dose optimization technique for this examination. CONTRAST TYPE/DOSE: ?? 100mL of IOVERSOL 350 MG IODINE/ML INTRAVENOUS SYRINGE ?? injected via ?? intravenous COMPARISON: ?? Right upper quadrant ultrasound of April 08, [address] of the chest and abdomen of April 07, 2010. FINDINGS: LOWER CHEST: ??There is bibasilar atelectasis. ? LIVER: ??There are multiple hypodense lesions which statistically likely represent cysts or hemangiomas, unchanged. ??There is a low-density cyst in the periphery of the right lobe of the liver measuring 1.7 cm, increased in size from previous study. GALLBLADDER: ??Surgically absent. BILE DUCTS: ??No intrahepatic or extrahepatic ductal dilatation. PANCREAS: ??Normal. SPLEEN: ??Normal size. ??No focal lesions. ADRENALS: ??Normal. KIDNEYS/URINARY TRACT: ??The left kidney is normal. ??A right ureteral stent is seen in place. ??The right kidney is otherwise normal. ?The bladder is partially collapsed but mildly thick walled measuring up to 9 mm in its area of greatest thickness. ??There is subtle stranding surrounding the bladder. VASCULATURE: ??There is moderate atherosclerosis of the aorta and its pelvic branches. GI: ??The stomach appears normal. ?? There is a small duodenal diverticulum seen of the 2nd portion of the duodenum. ?? There is no significant small bowel dilation or visible thickening. ?? There is extensive diverticulosis, wall thickening and mild mucosal enhancement seen through out the sigmoid colon. ?? There is prominence of the surrounding vasculature, consistent with hyperemia and minimal adjacent stranding. ??The colon wall measures up to 9 mm in thickness in this region. ??The remainder of the colon is unremarkable. ?The appendix is normal. PERITONEUM/MESENTERY: ??No ascites or free air. ?? There is a tiny fat containing periumbilical hernia. LYMPH NODES: ??There are no enlarged lymph nodes seen by CT size criteria. REPRODUCTIVE: ??The prostate is enlarged, measuring 4.4 x 4.3 cm. ??The seminal vesicles are unremarkable. MUSCULOSKELETAL: ??Mild multilevel degenerative changes are present in the spine. No acute bony abnormalities are seen. OTHER: ??No other abnormality. IMPRESSION: Extensive diverticulosis, wall thickening and mucosal enhancement of the sigmoid colon with surrounding hyperemia and minimal adjacent stranding. This may represent acute diverticulitis or other causes of colitis. ??Recommend follow-up colonoscopy after resolution of acute symptoms to exclude underlying malignancy. Right ureteral stent in place. Mild bladder wall thickening and subtle stranding surrounding the bladder. This may be related to cystitis. ??Recommend correlation with urinalysis. Enlarged prostate. Moderate atherosclerosis. Tiny fat containing periumbilical hernia. Status post cholecystectomy. Small duodenal diverticulum. THIS IS AN ELECTRONICALLY VERIFIED FINAL REPORT 02/25/2024 1:44 AM - Electronically signed by ??Camilla Aguirre M.D. SN: D: ??02/25/2024 1:44 AM T: ??02/25/2024 1:44 AM Report ID: [id number] Reading Location: ??[id number] Procedure Note Camilla Aguirre MD - 02/25/2024 EXAM DESCRIPTION: CT ABDOMEN PELVIS W CONTRAST REASON FOR STUDY: Bowel obstruction suspected Pt arrives with c/o constipation x 1 week with worsening abdominal painand vomiting tonight. Pt reports that his doctor prescribed laxatives andstool softeners without relief. Chemo and radiation for bladder cancer. TECHNIQUE: CT scan of the abdomen and pelvis performed with intravenousand without oral contrast using helical scanning technique with dynamic intravenous contrast injection. Reconstructed coronal and sagittal MPRimages reviewed. All images stored on PACS. Automated exposure control was usedas a dose optimization technique for this examination. CONTRAST TYPE/DOSE: 100mL of IOVERSOL 350 MG IODINE/ML INTRAVENOUSSYRINGE injected via intravenous COMPARISON: Right upper quadrant ultrasound of April 08, [address] ofthe chest and abdomen of April 07, 2010. FINDINGS: LOWER CHEST: There is bibasilar atelectasis. LIVER: There are multiple hypodense lesions which statistically likely represent cysts or hemangiomas, unchanged. There is a low-density cyst inthe periphery of the right lobe of the liver measuring 1.7 cm, increased insize from previous study. GALLBLADDER: Surgically absent. BILE DUCTS: No intrahepatic or extrahepatic ductal dilatation. PANCREAS: Normal. SPLEEN: Normal size. No focal lesions. ADRENALS: Normal. KIDNEYS/URINARY TRACT: The left kidney is normal. A right ureteral stentis seen in place. The right kidney is otherwise normal. The bladder is partially collapsed but mildly thick walled measuring up to 9 mm in itsarea of greatest thickness. There is subtle stranding surrounding the bladder. VASCULATURE: There is moderate atherosclerosis of the aorta and itspelvic branches. GI: The stomach appears normal. There is a small duodenal diverticulumseen of the 2nd portion of the duodenum. There is no significant small bowel dilation or visible thickening. There is extensive diverticulosis, wall thickening and mild mucosal enhancement seen through out the sigmoidcolon. There is prominence of the surrounding vasculature, consistent withhyperemia and minimal adjacent stranding. The colon wall measures up to 9 mm in thickness in this region. The remainder of the colon is unremarkable.The appendix is normal. PERITONEUM/MESENTERY: No ascites or free air. There is a tiny fat containing periumbilical hernia. LYMPH NODES: There are no enlarged lymph nodes seen by CT size criteria. REPRODUCTIVE: The prostate is enlarged, measuring 4.4 x 4.3 cm. Theseminal vesicles are unremarkable. MUSCULOSKELETAL: Mild multilevel degenerative changes are present in the spine. No acute bony abnormalities are seen. OTHER: No other abnormality. IMPRESSION: Extensive diverticulosis, wall thickening and mucosal enhancement of the sigmoid colon with surrounding hyperemia and minimal adjacent stranding.This may represent acute diverticulitis or other causes of colitis. Recommend follow-up colonoscopy after resolution of acute symptoms to excludeunderlying malignancy. Right ureteral stent in place. Mild bladder wall thickening and subtle stranding surrounding thebladder. This may be related to cystitis. Recommend correlation with urinalysis. Enlarged prostate. Moderate atherosclerosis. Tiny fat containing periumbilical hernia. Status post cholecystectomy. Small duodenal diverticulum. THIS IS AN ELECTRONICALLY VERIFIED FINAL REPORT 02/25/2024 1:44 AM - Electronically signed by Camilla Aguirre M.D. SN: Report ID: [id number] Reading Location: [place] [address] Kwaku Roland Jr., MD IMG CT PROCEDURES Final Result * eGFR (02/25/2024 12:21 AM NATIONAL ACCOUNT DIRECTOR) eGFR >90 >=60 mL/min/1. 73 m2 Comment: [...] was last reviewed 2021. Testing performed by: [address] [address] Blood 02/25/2024 12:2 1 AM NATIONAL ACCOUNT DIRECTOR 02/25/2024 12:31 AM NATIONAL ACCOUNT DIRECTOR us Kwaku Roland Jr., MD LAB BLOOD ORDERABLES Fi nal Result [facility] [address] [facility] Department of Laboratories [place], [place] [id number] * (ABNORMAL) Differential, auto (02/25/2024 12:21 AM NATIONAL ACCOUNT DIRECTOR) Neutrophil abs 4.5 1.5 - 6.5 K/cumm Comment:Testing performed by : [address] [address] Imm gran abs 0.0 0.0 - 0.1 K/cumm JAIME Comment:Testing performed by : [address] [address] Lymphocyte abs 0.5(L) 0.8 - 3.3 K/cumm JAIME Comment:Testing performed by : [address] [address] Monocyte abs 0.5 0.2 - 0.8 K/cumm JAIME Comment:Testing performed by : [address] [address] Eosinophil abs 0.1 0.0 - 0.5 K/cumm JAIME Comment:Testing performed by : [address] [address] Basophil abs 0.0 0.0 - 0.1 K/cumm JAIME Comment:Testing performed by : [address] [address] Neutrophil pct 80.8 % JAIME Comment: Interpretive Data Percent cell count reference ranges are not reported, since discordance with absolute values may lead to misinterpretation of CBC data. Current Interpretive Data was last revised on 2017. Testing performed by: [address] [address] Imm gran pct 0.7 % [facility] Comment: Interpretive Data Percent cell count reference ranges are not reported, since discordance with absolute values may lead to misinterpretation of CBC data. Current Interpretive Data was last revised on 2017. Testing performed by: [address] [address] Lymphocyte pct 8.5 % [facility] Comment: Interpretive Data Percent cell count reference ranges are not reported, since discordance with absolute values may lead to misinterpretation of CBC data. Current Interpretive Data was last revised on 2017. Testing performed by: [address] [address] Monocyte pct 8.3 % [facility] Comment: Interpretive Data Percent cell count reference ranges are not reported, since discordance with absolute values may lead to misinterpretation of CBC data. Current Interpretive Data was last revised on 2017. Testing performed by: [address] [address] Eosinophil pct 1.3 % [facility] Comment: Interpretive Data Percent cell count reference ranges are not reported, since discordance with absolute values may lead to misinterpretation of CBC data. Current Interpretive Data was last revised on 2017. Testing performed by: [address] [address] Basophil pct 0.4 % [facility] Comment: Interpretive Data Percent cell count reference ranges are not reported, since discordance with absolute values may lead to misinterpretation of CBC data. Current Interpretive Data was last revised on 2017. Testing performed by: [address] [address] Blood 02/25/2024 12:2 1 AM NATIONAL ACCOUNT DIRECTOR 02/25/2024 12:31 AM NATIONAL ACCOUNT DIRECTOR us Kwaku Roland Jr., MD LAB BLOOD ORDERABLES Fi nal Result JAIME [address] [facility] Department [place] [address] * (ABNORMAL) CBC with auto differential (02/25/2024 12:21 AM NATIONAL ACCOUNT DIRECTOR) [facility] WBC 5.5 3.8 - 9.9 K/cumm Comment:Testing performed by : [address] [address] Hgb 10.8(L) 13.0 - 17.5 g/dL JAIME Comment:Testing performed by : [address], [address] Hct 30.5(L) 38.9 - 50.3 % JAIME Comment:Testing performed by : [address] [address] Plt 164 150 - 400 K/cumm JAIME Comment:Testing performed by : [address] [address] MPV 8.8(L) 9.1 - 12.3 fL JAIME Comment:Testing performed by : [address], [address] RBC 3.15(L) 4.30 - 5.80 M/cumm JAIME Comment:Testing performed by : [address] [address] MCV 96.8(H) 81.3 - 96.4 fL [facility]F Comment:Testing performed by : [address] [address] MCH 34.3(H) 27.1 - 33.3 pg CERYUSUF Comment:Testing performed by : [address], [address] MCHC 35.4 32.3 - 35.7 g/dL CERYUSUF Comment:Testing performed by : [address], [address] RDW CV 15.7(H) 11.1 - 14.9 % JAIME Comment:Testing performed by : [address], [address] RDW SD 50.6(H) 35.7 - 48.1 fL CERYUSUF PINEDA Comment:Testing performed by : [address] [address] NRBC abs 0.00 0.00 - 0.01 K/cumm JAIME PINEDA Comment:Testing performed by : [address] [address] Blood (Blood, Venous) 02/25/2024 12:21 AM NATIONAL ACCOUNT DIRECTOR 02/25/2024 12:31 AM NATIONAL ACCOUNT DIRECTOR Kwaku Roland Jr., MD LAB BLOOD ORDERABLES Fi nal Result Performing Organization Address [facility] Co de Phone Number [address] [address] * Lipase (02/25/2024 12:21 AM NATIONAL ACCOUNT DIRECTOR) [facility] Lipase 27 10 - 99 Units/L Comment:Testing performed by : [address] [address] Blood (Blood, Venous) 02/25/2024 12:21 AM NATIONAL ACCOUNT DIRECTOR 02/25/2024 12:31 AM NATIONAL ACCOUNT DIRECTOR Kwaku Roland Jr., MD LAB BLOOD ORDERABLES Fi nal Result Performing Organization Address [facility] de Phone Number [address] [address] * (ABNORMAL) Comprehensive metabolic panel (02/25/2024 12:21 AM NATIONAL ACCOUNT DIRECTOR) [facility] Sodium 138 135 - 145 mmol/L Comment:Testing performed by : [address] [address] Potassium, pl 3.6 3.3 - 4.9 mmol/L JAIME PINEDA Comment:Testing performed by : [address] [address] Chloride 103 97 - 110 mmol/L JAIME PINEDA Comment:Testing performed by : [address] [address] CO2 23 22 - 32 mmol/L JAIME PINEDA Comment:Testing performed by : [address] [address] Anion gap 12 2 - 15 mmol/L JAIME Comment:Testing performed by : [address] [address] BUN 12 6 - 25 mg/dL JAIME Comment:Testing performed by : [address], [place]., [address] Creatinine 0.70(L) 0.80 - 1.30 mg/dL JAIME Comment:Testing performed by : [address] [address] Glucose 130 70 - 199 mg/dL JAIME Comment: Interpretive [...] classification and Diagnosis of Diabetes Diabetes Care 202; 46: S19-S40. Current interpretive data was last revised 2022. Testing performed by: [address] [address] Calcium 9.2 8.5 - 10.3 mg/dL JAIME Comment:Testing performed by : [address] [address] Bilirubin, total 0.6 0.1 - 1.2 mg/dL JAIME Comment:Testing performed by : [address] [address] Protein, pl 7.3 6.5 - 8.5 g/dL JAIME Comment:Testing performed by : [address] [address] Albumin 3.8 3.5 - 5.0 g/dL JAIME Comment:Testing performed by : [address] [address] Alk phos 77 40 - 130 Units/L JAIME Comment:Testing performed by : [address] [address] ALT 21 7 - 55 Units/L JAIME Comment:Testing performed by : [facility], [address] [place] [address], [address] AST 17 10 - 50 Units/L JAIME Comment:Testing performed by : [facility] [facility], [address] [place] [address]., [address] Blood 02/25/2024 12:2 1 AM NATIONAL ACCOUNT DIRECTOR 02/25/2024 12:31 AM NATIONAL ACCOUNT DIRECTOR Kwaku Roland Jr., MD LAB BLOOD ORDERABLES Fi nal Result [facility] [address] [facility] Department [place] [address] * RAD ONC ARIA SESSION SUMMARY (02/24/2024 9:44 AM NATIONAL ACCOUNT DIRECTOR) Course Name C1_BLADDER_ 2023 ARIA Course Plan Date 01/22/2024 3:44 PM ARIA Elapsed Days 22 ARIA Treatment Start Date 2024 ARIA Treatment Site BLADDER ARIA Dose Given To Date (cGy) 4,950 ARIA Session Dosage Given (cGy) 275 ARIA Plan ID BLADDER ARIA Fractions Treated 18 ARIA Prescribed Dose Per Fraction (cGy) 275 ARIA Prescribed Total Dose (cGy) 5,500 ARIA 02/24/2024 9:44 AM NATIONAL ACCOUNT DIRECTOR Not In File Miscellaneous RADIATION ONCOLOGY ORD ERABLES Final Result ARIA * eGFR (02/23/2024 11:02 AM NATIONAL ACCOUNT DIRECTOR) eGFR 89 >=60 mL/min/1. 73 m2 Comment: Interpretive Data [...] was last reviewed 2021. Testing performed by: [address] [address] Blood 02/23/2024 11:0 2 AM NATIONAL ACCOUNT DIRECTOR 02/23/2024 11:04 AM NATIONAL ACCOUNT DIRECTOR us Venkat Vivar DO LAB BLOOD ORDERABLES Final R esult JAIME [address] [facility] Department [place] [address] * (ABNORMAL) Differential, auto (02/23/2024 11:02 AM NATIONAL ACCOUNT DIRECTOR) Neutrophil abs 3.9 1.5 - 6.5 K/cumm Comment:Testing performed by : [address] [address] Imm gran abs 0.0 0.0 - 0.1 K/cumm JAIME PINEDA Comment:Testing performed by : [address] [address] Lymphocyte abs 0.5(L) 0.8 - 3.3 K/cumm JAIME PINEDA Comment:Testing performed by : [address] [address] Monocyte abs 0.4 0.2 - 0.8 K/cumm JAIME Comment:Testing performed by : [address] 21368 Eosinophil abs 0.1 0.0 - 0.5 K/cumm JAIME Comment:Testing performed by : [address] 89169 Basophil abs 0.0 0.0 - 0.1 K/cumm JAIME Comment:Testing performed by : [address] [address] Neutrophil pct 78.5 % [facility] Comment: Interpretive Data Percent cell count reference ranges are not reported, since discordance with absolute values may lead to misinterpretation of CBC data. Current Interpretive Data was last revised on 2017. Testing performed by: [address] [address] Imm gran pct 0.6 % [facility] Comment: Interpretive Data Percent cell count reference ranges are not reported, since discordance with absolute values may lead to misinterpretation of CBC data. Current Interpretive Data was last revised on 2017. Testing performed by: [address] [address] Lymphocyte pct 10.4 % [facility] Comment: Interpretive Data Percent cell count reference ranges are not reported, since discordance with absolute values may lead to misinterpretation of CBC data. Current Interpretive Data was last revised on 2017. Testing performed by: [address] [address] Monocyte pct 7.5 % [facility] Comment: Interpretive Data Percent cell count reference ranges are not reported, since discordance with absolute values may lead to misinterpretation of CBC data. Current Interpretive Data was last revised on 2017. Testing performed by: [address] [address] Eosinophil pct 2.6 % [facility] Comment: Interpretive Data Percent cell count reference ranges are not reported, since discordance with absolute values may lead to misinterpretation of CBC data. Current Interpretive Data was last revised on 2017. Testing performed by: [address] [address] Basophil pct 0.4 % CERNER Comment: Interpretive Data Percent cell count reference ranges are not reported, since discordance with absolute values may lead to misinterpretation of CBC data. Current Interpretive Data was last revised on 2017. Testing performed by: [address] [address] Blood 02/23/2024 11:0 2 AM NATIONAL ACCOUNT DIRECTOR 02/23/2024 11:04 AM NATIONAL ACCOUNT DIRECTOR Venkat Vivar DO LAB BLOOD ORDERABLES Final R esult [facility] [address] [facility] Department [place] [address] * (ABNORMAL) CBC with auto differential (02/23/2024 11:02 AM NATIONAL ACCOUNT DIRECTOR) WBC 4.9 3.8 - 9.9 K/cumm Comment:Testing performed by : [address] [address] Hgb 10.6(L) 13.0 - 17.5 g/dL JAIME Comment:Testing performed by : [address] [address] Hct 30.6(L) 38.9 - 50.3 % JAIME Comment:Testing performed by : [address] [address]25 Plt 146(L) 150 - 400 K/cumm JAIME Comment:Testing performed by : [address] [address] MPV 8.6(L) 9.1 - 12.3 fL JAIME Comment:Testing performed by : [address] [address]270 RBC 3.18(L) 4.30 - 5.80 M/cumm JAIME Comment:Testing performed by : [address] 24078 MCV 96.2 81.3 - 96.4 fL JAIME Comment:Testing performed by : [address] 837[address] MCH 33.3 27.1 - 33.3 pg JAIME PINEDA Comment:Testing performed by : [address] [address]285 MCHC 34.6 32.3 - 35.7 g/dL JAIME PINEDA Comment:Testing performed by : [address] 16087 RDW CV 15.0(H) 11.1 - 14.9 % JAIME PINEDA Comment:Testing performed by : [address] [address]843 RDW SD 49.3(H) 35.7 - 48.1 fL JAIME PINEDA Comment:Testing performed by : [address] 97185 NRBC abs 0.00 0.00 - 0.01 K/cumm JAIME PINEDA Comment:Testing performed by : [address] [address] Blood 02/23/2024 11:0 2 AM NATIONAL ACCOUNT DIRECTOR 02/23/2024 11:04 AM NATIONAL ACCOUNT DIRECTOR us Venkat Vivar DO LAB BLOOD ORDERABLES Final R esult JAIME PINEDA [facility]8 [facility] Department of Laboratories [place], [place] [id number] * Comprehensive metabolic panel (02/23/2024 11:02 AM NATIONAL ACCOUNT DIRECTOR) Sodium 141 135 - 145 mmol/L Comment:Testing performed by : [address] [address] Potassium, pl 4.1 3.3 - 4.9 mmol/L JAIME PINEDA Comment:Testing performed by : [address] [address] Chloride 104 97 - 110 mmol/L JAIME PINEDA Comment:Testing performed by : [address] [address]228 CO2 27 22 - 32 mmol/L JAIME PINEDA Comment:Testing performed by : [address] [address]16[address] Anion gap 10 2 - 15 mmol/L JAIME Comment:Testing performed by : [address] [address]993 BUN 17 6 - 25 mg/dL JAIME Comment:Testing performed by : [address] [address] Creatinine 0.90 0.80 - 1.30 mg/dL JAIME Comment:Testing performed by : [address] [address] Glucose 115 70 - 199 mg/dL [facility] Comment: Interpretive Data Fasting glucose >/= 126 [...] was last revised 2022. Testing performed by: [address] [address] Calcium 9.0 8.5 - 10.3 mg/dL [facility] Comment:Testing performed by : [address] [address] Bilirubin, total 0.5 0.1 - 1.2 mg/dL [facility] Comment:Testing performed by : [address] [address] Protein, pl 7.1 6.5 - 8.5 g/dL [facility] Comment:Testing performed by : [address] [address] Albumin 3.8 3.5 - 5.0 g/dL [facility] Comment:Testing performed by : [address] [address] Alk phos 75 40 - 130 Units/L JAIME Comment:Testing performed by : [address] [address] ALT 19 7 - 55 Units/L JAIME Comment:Testing performed by : [facility], [address] [place] [address]., [address] AST 17 10 - 50 Units/L JAIME Comment:Testing performed by : [facility], [address] [place] [address]., [address] Blood 02/23/2024 11:0 2 AM NATIONAL ACCOUNT DIRECTOR 02/23/2024 11:04 AM NATIONAL ACCOUNT DIRECTOR us Venkat Vivar DO LAB BLOOD ORDERABLES Final R esult JAIME [address] [facility] Department [place] [address] * RAD ONC ARIA SESSION SUMMARY (02/23/2024 9:45 AM NATIONAL ACCOUNT DIRECTOR) Course Name C1_BLADDER_ 2023 ARIA Course Plan Date 01/22/2024 3:44 PM ARIA Elapsed Days 21 ARIA Treatment Start Date 2024 ARIA Treatment Site BLADDER ARIA Dose Given To Date (cGy) 4,675 ARIA Session Dosage Given (cGy) 275 ARIA Plan ID BLADDER ARIA Fractions Treated 17 ARIA Prescribed Dose Per Fraction (cGy) 275 ARIA Prescribed Total Dose (cGy) 5,500 ARIA 02/23/2024 9:45 AM NATIONAL ACCOUNT DIRECTOR Not In File Miscellaneous RADIATION ONCOLOGY ORD ERABLES Final Result ARIA * RAD ONC ARIA SESSION SUMMARY (02/22/2024 9:35 AM NATIONAL ACCOUNT DIRECTOR) Course Name C1_BLADDER_ 2023 ARIA Course Plan Date 01/22/2024 3:44 PM ARIA Elapsed Days 20 ARIA Treatment Start Date 2024 ARIA Treatment Site BLADDER ARIA Dose Given To Date (cGy) 4,400 ARIA Session Dosage Given (cGy) 275 ARIA Plan ID BLADDER ARIA Fractions Treated 16 ARIA Prescribed Dose Per Fraction (cGy) 275 ARIA Prescribed Total Dose (cGy) 5,500 ARIA 02/22/2024 9:35 AM NATIONAL ACCOUNT DIRECTOR us Not In File Miscellaneous RADIATION ONCOLOGY ORD ERABLES Final Result Performing Organization Address [facility] de Phone Number LADONNA * RAD ONC ARIA SESSION SUMMARY (02/20/2024 9:41 AM NATIONAL ACCOUNT DIRECTOR) Course Name C1_BLADDER_ 2023 ARIA Course Plan Date 01/22/2024 3:44 PM ARIA Elapsed Days 18 ARIA Treatment Start Date 2024 ARIA Treatment Site BLADDER ARIA Dose Given To Date (cGy) 4,125 ARIA Session Dosage Given (cGy) 275 ARIA Plan ID BLADDER ARIA Fractions Treated 15 ARIA Prescribed Dose Per Fraction (cGy) 275 ARIA Prescribed Total Dose (cGy) 5,500 ARIA 02/20/2024 9:41 AM NATIONAL ACCOUNT DIRECTOR us Not In File Miscellaneous RADIATION ONCOLOGY ORD ERABLES Final Result Performing Organization Address [facility] de Phone Number ARIGeetha * eGFR (02/19/2024 11:23 AM NATIONAL ACCOUNT DIRECTOR) eGFR 89 >=60 mL/min/1. 73 m2 Comment: Interpretive Data [...] of Race in Diagnosing Kidney Disease, JASN 202). The CKD-EPI equation should not be used for patients with unstable renal function and has not been validated in children and those over 70. Current interpretive data was last reviewed 2021. Testing performed by: [address] [address] Blood 02/19/2024 11:2 3 AM NATIONAL ACCOUNT DIRECTOR 02/19/2024 11:26 AM NATIONAL ACCOUNT DIRECTOR us Venkat Vivar DO LAB BLOOD ORDERABLES Final R esult JAIME PINEDA [facility] Department [place] [address] * (ABNORMAL) Differential, auto (02/19/2024 11:23 AM NATIONAL ACCOUNT DIRECTOR) Neutrophil abs 3.9 1.5 - 6.5 K/cumm Comment:Testing performed by : [address] [address] Imm gran abs 0.0 0.0 - 0.1 K/cumm JAIME Comment:Testing performed by : [address] [address] Lymphocyte abs 0.6(L) 0.8 - 3.3 K/cumm JAIME Comment:Testing performed by : [address] [address]34 Monocyte abs 0.3 0.2 - 0.8 K/cumm JAIME Comment:Testing performed by : [address] [address] Eosinophil abs 0.2 0.0 - 0.5 K/cumm JAIME Comment:Testing performed by : [address] [address]164 Basophil abs 0.0 0.0 - 0.1 K/cumm JAIME Comment:Testing performed by : [address] [address] Neutrophil pct 78.4 % [facility] Comment: Interpretive Data Percent cell count reference ranges are not reported, since discordance with absolute values may lead to misinterpretation of CBC data. Current Interpretive Data was last revised on 2017. Testing performed by: [address] [address] Imm gran pct 0.4 % [facility] Comment: Interpretive Data Percent cell count reference ranges are not reported, since discordance with absolute values may lead to misinterpretation of CBC data. Current Interpretive Data was last revised on 2017. Testing performed by: [address] [address] Lymphocyte pct 11.4 % [facility] Comment: Interpretive Data Percent cell count reference ranges are not reported, since discordance with absolute values may lead to misinterpretation of CBC data. Current Interpretive Data was last revised on 2017. Testing performed by: [address] [address]213 Monocyte pct 6.2 % [facility] Comment: Interpretive Data Percent cell count reference ranges are not reported, since discordance with absolute values may lead to misinterpretation of CBC data. Current Interpretive Data was last revised on 2017. Testing performed by: [address] [address] Eosinophil pct 3.2 % [facility] Comment: Interpretive Data Percent cell count reference ranges are not reported, since discordance with absolute values may lead to misinterpretation of CBC data. Current Interpretive Data was last revised on 2017. Testing performed by: [address] [address] Basophil pct 0.4 % [facility] Comment: Interpretive Data Percent cell count reference ranges are not reported, since discordance with absolute values may lead to misinterpretation of CBC data. Current Interpretive Data was last revised on 2017. Testing performed by: [address] [address] Blood 02/19/2024 11:2 3 AM NATIONAL ACCOUNT DIRECTOR 02/19/2024 11:26 AM NATIONAL ACCOUNT DIRECTOR Venkat Vivar DO LAB BLOOD ORDERABLES Final R esult [facility] [address] [facility] Department [place] [address] * (ABNORMAL) CBC with auto differential (02/19/2024 11:23 AM NATIONAL ACCOUNT DIRECTOR) [facility] WBC 5.0 3.8 - 9.9 K/cumm Comment:Testing performed by : [address] [address] Hgb 10.8(L) 13.0 - 17.5 g/dL JAIME Comment:Testing performed by : [address] [address]99 Hct 31.2(L) 38.9 - 50.3 % JAIME Comment:Testing performed by : [address] [address]362 Plt 88(L) 150 - 400 K/cumm JAIME Comment:Testing performed by : [address] [address]395 MPV 9.0(L) 9.1 - 12.3 fL JAIME Comment:Testing performed by : [address] [address]955 RBC 3.25(L) 4.30 - 5.80 M/cumm JAIME Comment:Testing performed by : [address] 16375 MCV 96.0 81.3 - 96.4 fL JAIME Comment:Testing performed by : [address] [address]246 MCH 33.2 27.1 - 33.3 pg JAIME Comment:Testing performed by : [address] 25587 MCHC 34.6 32.3 - 35.7 g/dL JAIME Comment:Testing performed by : [address] [address]27[address] RDW CV 14.6 11.1 - 14.9 % JAIME Comment:Testing performed by : [address] [address]191 RDW SD 49.1(H) 35.7 - 48.1 fL JAIME Comment:Testing performed by : [address] 27065 NRBC abs 0.00 0.00 - 0.01 K/cumm JAIME PINEDA Comment:Testing performed by : [address] [address] Blood 02/19/2024 11:2 3 AM NATIONAL ACCOUNT DIRECTOR 02/19/2024 11:26 AM NATIONAL ACCOUNT DIRECTOR us Venkat Vivar DO LAB BLOOD ORDERABLES Final R esult JAIME [address] [facility] Department [place] [address] * Comprehensive metabolic panel (02/19/2024 11:23 AM NATIONAL ACCOUNT DIRECTOR) Sodium 141 135 - 145 mmol/L Comment:Testing performed by : [address] [address] Potassium, pl 3.9 3.3 - 4.9 mmol/L JAIME Comment:Testing performed by : [address] [address]25 Chloride 103 97 - 110 mmol/L JAIME Comment:Testing performed by : [address] [address]114 CO2 28 22 - 32 mmol/L JAIME Comment:Testing performed by : [address] [address] Anion gap 10 2 - 15 mmol/L JAIME Comment:Testing performed by : [address] 10008 BUN 12 6 - 25 mg/dL JAIME Comment:Testing performed by : [address] [address]874 Creatinine 0.90 0.80 - 1.30 mg/dL JAIME Comment:Testing performed by : [address] [address] Glucose 148 70 - 199 mg/dL JAIME Comment: Interpretive [...] classification and Diagnosis of Diabetes Diabetes Care 202; 46: S19-S40. Current interpretive data was last revised 2022. Testing performed by: [address] [address] Calcium 8.8 8.5 - 10.3 mg/dL JAIME Comment:Testing performed by : [address] [address] Bilirubin, total 0.6 0.1 - 1.2 mg/dL JAIME Comment:Testing performed by : [address] [address] Protein, pl 6.9 6.5 - 8.5 g/dL JAIME Comment:Testing performed by : [address] [address]483 Albumin 3.9 3.5 - 5.0 g/dL JAIME Comment:Testing performed by : [address] [address]298 Alk phos 74 40 - 130 Units/L JAIME Comment:Testing performed by : [address] [address]1336 ALT 15 7 - 55 Units/L JAIME Comment:Testing performed by : [address] [address]00 AST 15 10 - 50 Units/L JAIME Comment:Testing performed by : [address] [address] Blood 02/19/2024 11:2 3 AM NATIONAL ACCOUNT DIRECTOR 02/19/2024 11:26 AM NATIONAL ACCOUNT DIRECTOR Venkat Vivar DO LAB BLOOD ORDERABLES Final R esult JAIME [address] [facility] Department [place] [address] * RAD ONC ARIA SESSION SUMMARY (02/19/2024 9:52 AM NATIONAL ACCOUNT DIRECTOR) Course Name C1_BLADDER_ 2023 ARIA Course Plan Date 01/22/2024 3:44 PM ARIA Elapsed Days 17 ARIA Treatment Start Date 2024 ARIA Treatment Site BLADDER ARIA Dose Given To Date (cGy) 3,850 ARIA Session Dosage Given (cGy) 275 ARIA Plan ID BLADDER ARIA Fractions Treated 14 ARIA Prescribed Dose Per Fraction (cGy) 275 ARIA Prescribed Total Dose (cGy) 5,500 ARIA 02/19/2024 9:52 AM NATIONAL ACCOUNT DIRECTOR us Not In File Miscellaneous RADIATION ONCOLOGY ORD ERABLES Final Result Performing Organization Address [facility] Co de Phone Number ARIGeetha * RAD ONC ARIA SESSION SUMMARY (02/18/2024 9:43 AM NATIONAL ACCOUNT DIRECTOR) Course Name C1_BLADDER_ 2023 ARIA Course Plan Date 01/22/2024 3:44 PM ARIA Elapsed Days 16 ARIA Treatment Start Date 2024 ARIA Treatment Site BLADDER ARIA Dose Given To Date (cGy) 3,575 ARIA Session Dosage Given (cGy) 275 ARIA Plan ID BLADDER ARIA Fractions Treated 13 ARIA Prescribed Dose Per Fraction (cGy) 275 ARIA Prescribed Total Dose (cGy) 5,500 ARIA 02/18/2024 9:43 AM NATIONAL ACCOUNT DIRECTOR us Not In File Miscellaneous RADIATION ONCOLOGY ORD ERABLES Final Result ARIA * RAD ONC ARIA SESSION SUMMARY (02/17/2024 9:40 AM NATIONAL ACCOUNT DIRECTOR) Course Name C1_BLADDER_ 2023 ARIA Course Plan Date 01/22/2024 3:44 PM ARIA Elapsed Days 15 ARIA Treatment Start Date 2024 ARIA Treatment Site BLADDER ARIA Dose Given To Date (cGy) 3,300 ARIA Session Dosage Given (cGy) 275 ARIA Plan ID BLADDER ARIA Fractions Treated 12 ARIA Prescribed Dose Per Fraction (cGy) 275 ARIA Prescribed Total Dose (cGy) 5,500 ARIA 02/17/2024 9:40 AM NATIONAL ACCOUNT DIRECTOR us Not In File Miscellaneous RADIATION ONCOLOGY ORD ERABLES Final Result Performing Organization Address [facility] de Phone Number LADONNA * RAD ONC ARIA SESSION SUMMARY (02/16/2024 11:16 AM NATIONAL ACCOUNT DIRECTOR) Course Name C1_BLADDER_ 2023 ARIA Course Plan Date 01/22/2024 3:44 PM ARIA Elapsed Days 14 ARIA Treatment Start Date 2024 ARIA Treatment Site BLADDER ARIA Dose Given To Date (cGy) 3,025 ARIA Session Dosage Given (cGy) 275 ARIA Plan ID BLADDER ARIA Fractions Treated 11 ARIA Prescribed Dose Per Fraction (cGy) 275 ARIA Prescribed Total Dose (cGy) 5,500 ARIA 02/16/2024 11:1 6 AM NATIONAL ACCOUNT DIRECTOR us Not In File Miscellaneous RADIATION ONCOLOGY ORD ERABLES Final Result Performing Organization Address [facility] de Phone Number ARIGeetha * eGFR (02/16/2024 7:36 AM NATIONAL ACCOUNT DIRECTOR) eGFR 78 >=60 mL/min/1. 73 m2 Comment: Interpretive Data [...] was last reviewed 2021. Testing performed by: [address] [address] Blood 02/16/2024 7:36 AM NATIONAL ACCOUNT DIRECTOR 02/16/2024 7:42 AM NATIONAL ACCOUNT DIRECTOR Venkat Vivar DO LAB BLOOD ORDERABLES Final R esult [facility] [address] [facility] Department [place] [address] * Differential, auto (02/16/2024 7:36 AM NATIONAL ACCOUNT DIRECTOR) Neutrophil abs 4.2 1.5 - 6.5 K/cumm Comment:Testing performed by : [address] [address] Imm gran abs 0.0 0.0 - 0.1 K/cumm JAIME Comment:Testing performed by : [address] [address]64 Lymphocyte abs 0.9 0.8 - 3.3 K/cumm JAIME Comment:Testing performed by : [address] 24588 Monocyte abs 0.3 0.2 - 0.8 K/cumm JAIME Comment:Testing performed by : [address] 63583 Eosinophil abs 0.2 0.0 - 0.5 K/cumm JAIME Comment:Testing performed by : [address] [address]1418 Basophil abs 0.0 0.0 - 0.1 K/cumm JAIME Comment:Testing performed by : [address] 89960 Neutrophil pct 75.3 % [facility] Comment: Interpretive Data Percent cell count reference ranges are not reported, since discordance with absolute values may lead to misinterpretation of CBC data. Current Interpretive Data was last revised on 2017. Testing performed by: [address] [address] Imm gran pct 0.4 % [facility] Comment: Interpretive Data Percent cell count reference ranges are not reported, since discordance with absolute values may lead to misinterpretation of CBC data. Current Interpretive Data was last revised on 2017. Testing performed by: [address] [address] Lymphocyte pct 16.0 % [facility] Comment: Interpretive Data Percent cell count reference ranges are not reported, since discordance with absolute values may lead to misinterpretation of CBC data. Current Interpretive Data was last revised on 2017. Testing performed by: [address] [address] Monocyte pct 5.2 % [facility] Comment: Interpretive Data Percent cell count reference ranges are not reported, since discordance with absolute values may lead to misinterpretation of CBC data. Current Interpretive Data was last revised on 2017. Testing performed by: [address] [address] Eosinophil pct 2.7 % [facility] Comment: Interpretive Data Percent cell count reference ranges are not reported, since discordance with absolute values may lead to misinterpretation of CBC data. Current Interpretive Data was last revised on 2017. Testing performed by: [address] [address] Basophil pct 0.4 % [facility] Comment: Interpretive Data Percent cell count reference ranges are not reported, since discordance with absolute values may lead to misinterpretation of CBC data. Current Interpretive Data was last revised on 2017. Testing performed by: [address] [address] Blood 02/16/2024 7:36 AM NATIONAL ACCOUNT DIRECTOR 02/16/2024 7:42 AM NATIONAL ACCOUNT DIRECTOR Venkat Vivar DO LAB BLOOD ORDERABLES Final R esult [facility] [address] [facility] Department [place] [address] * (ABNORMAL) CBC with auto differential (02/16/2024 7:36 AM NATIONAL ACCOUNT DIRECTOR) WBC 5.6 3.8 - 9.9 K/cumm Comment:Testing performed by : [address] [address] Hgb 11.5(L) 13.0 - 17.5 g/dL JAIME Comment:Testing performed by : [address] [address] Hct 33.3(L) 38.9 - 50.3 % JAIME Comment:Testing performed by : [address] [address] Plt 97(L) 150 - 400 K/cumm JAIME Comment:Testing performed by : [address] [address]394 MPV 9.1 9.1 - 12.3 fL JAIME Comment:Testing performed by : [address] [address]79 RBC 3.48(L) 4.30 - 5.80 M/cumm JAIME Comment:Testing performed by : [address] 91503 MCV 95.7 81.3 - 96.4 fL JAIME Comment:Testing performed by : [address] [address]88 MCH 33.0 27.1 - 33.3 pg JAIME Comment:Testing performed by : [address] 89316 MCHC 34.5 32.3 - 35.7 g/dL JAIME Comment:Testing performed by : [address] [address]506 RDW CV 14.3 11.1 - 14.9 % JAIME PINEDA Comment:Testing performed by : [address] [address]25 RDW SD 47.7 35.7 - 48.1 fL JAIME PINEDA Comment:Testing performed by : [address] [address]36 NRBC abs 0.00 0.00 - 0.01 K/cumm JAIME PINEDA Comment:Testing performed by : [address] [address] Blood 02/16/2024 7:36 AM NATIONAL ACCOUNT DIRECTOR 02/16/2024 7:42 AM NATIONAL ACCOUNT DIRECTOR us Venkat Vivar DO LAB BLOOD ORDERABLES Final R esult Performing Organization Address City/State/[facility] Co de Phone Number JAIME [facility] Department [place] [address] * Comprehensive metabolic panel (02/16/2024 7:36 AM NATIONAL ACCOUNT DIRECTOR) Sodium 142 135 - 145 mmol/L Comment:Testing performed by : [address] [address] Potassium, pl 4.2 3.3 - 4.9 mmol/L JAIME PINEDA Comment:Testing performed by : [address] [address] Chloride 105 97 - 110 mmol/L JAIME Comment:Testing performed by : [address] [address] CO2 28 22 - 32 mmol/L JAIME Comment:Testing performed by : [address] [address] Anion gap 9 2 - 15 mmol/L JAIME Comment:Testing performed by : [address] [address] BUN 15 6 - 25 mg/dL JAIME PINEDA Comment:Testing performed by : [address] [address] Creatinine 1.00 0.80 - 1.30 mg/dL JAIME Comment:Testing performed by : [address] [address] Glucose 111 70 - 199 mg/dL JAIME Comment: Interpretive [...] classification and Diagnosis of Diabetes Diabetes Care 202; 46: S19-S40. Current interpretive data was last revised 2022. Testing performed by: [address] [address] Calcium 8.9 8.5 - 10.3 mg/dL JAIME Comment:Testing performed by : [address] [address] Bilirubin, total 0.7 0.1 - 1.2 mg/dL [facility] Comment:Testing performed by : [address] [address] Protein, pl 7.2 6.5 - 8.5 g/dL [facility] Comment:Testing performed by : [address] [address] Albumin 3.9 3.5 - 5.0 g/dL [facility] Comment:Testing performed by : [address] [address] Alk phos 73 40 - 130 Units/L JAIME Comment:Testing performed by : [address] [address] ALT 16 7 - 55 Units/L JAIME Comment:Testing performed by : [address] [address] AST 16 10 - 50 Units/L JAIME Comment:Testing performed by : [address] [address] Blood 02/16/2024 7:36 AM NATIONAL ACCOUNT DIRECTOR 02/16/2024 7:42 AM NATIONAL ACCOUNT DIRECTOR us Venkat Vivar DO LAB BLOOD ORDERABLES Final R esult JAIME 4500 [facility] Department [place] [address] * RAD ONC ARIA SESSION SUMMARY (02/13/2024 8:43 AM NATIONAL ACCOUNT DIRECTOR) Pathologist [facility] [place] Course Name C1_BLADDER_ 2023 ARIA Course Plan Date 01/22/2024 3:44 PM ARIA Elapsed Days 11 ARIA Treatment Start Date 2024 ARIA Treatment Site BLADDER ARIA Dose Given To Date (cGy) 2,750 ARIA Session Dosage Given (cGy) 275 ARIA Plan ID BLADDER ARIA Fractions Treated 10 ARIA Prescribed Dose Per Fraction (cGy) 275 ARIA Prescribed Total Dose (cGy) 5,500 ARIA 02/13/2024 8:43 AM NATIONAL ACCOUNT DIRECTOR us Not In File Miscellaneous RADIATION ONCOLOGY ORD ERABLES Final Result Performing Organization Address [facility] de Phone Number ARIA * eGFR (02/12/2024 1:17 PM NATIONAL ACCOUNT DIRECTOR) Pathologist [facility] [place] eGFR >90 >=60 mL/min/1. 73 m2 Comment: [...] was last reviewed 2021. Testing performed by: [address] [address] Blood 02/12/2024 1:17 PM NATIONAL ACCOUNT DIRECTOR 02/12/2024 1:24 PM NATIONAL ACCOUNT DIRECTOR Venkat Vivar DO LAB BLOOD ORDERABLES Final R esult [place] [id number] [facility] Department [place] [address] * Differential, auto (02/12/2024 1:17 PM NATIONAL ACCOUNT DIRECTOR) Neutrophil abs 3.9 1.5 - 6.5 K/cumm Comment:Testing performed by : [address] [address] Imm gran abs 0.0 0.0 - 0.1 K/cumm JAIME Comment:Testing performed by : [address] [address] Lymphocyte abs 1.1 0.8 - 3.3 K/cumm JAIME Comment:Testing performed by : [address] [address] Monocyte abs 0.3 0.2 - 0.8 K/cumm JAIME Comment:Testing performed by : [address] [address] Eosinophil abs 0.2 0.0 - 0.5 K/cumm JAIME Comment:Testing performed by : [address] [address] Basophil abs 0.0 0.0 - 0.1 K/cumm JAIME Comment:Testing performed by : [address] [address] Neutrophil pct 69.9 % [facility] Comment: Interpretive Data Percent cell count reference ranges are not reported, since discordance with absolute values may lead to misinterpretation of CBC data. Current Interpretive Data was last revised on 2017. Testing performed by: [address] [address] Imm gran pct 0.7 % [facility] Comment: Interpretive Data Percent cell count reference ranges are not reported, since discordance with absolute values may lead to misinterpretation of CBC data. Current Interpretive Data was last revised on 2017. Testing performed by: [address] [address] Lymphocyte pct 20.5 % [facility] Comment: Interpretive Data Percent cell count reference ranges are not reported, since discordance with absolute values may lead to misinterpretation of CBC data. Current Interpretive Data was last revised on 2017. Testing performed by: [address] [address] Monocyte pct 5.8 % [facility] Comment: Interpretive Data Percent cell count reference ranges are not reported, since discordance with absolute values may lead to misinterpretation of CBC data. Current Interpretive Data was last revised on 2017. Testing performed by: [address] [address] Eosinophil pct 2.7 % [facility] Comment: Interpretive Data Percent cell count reference ranges are not reported, since discordance with absolute values may lead to misinterpretation of CBC data. Current Interpretive Data was last revised on 2017. Testing performed by: [address] [address] Basophil pct 0.4 % [facility] Comment: Interpretive Data Percent cell count reference ranges are not reported, since discordance with absolute values may lead to misinterpretation of CBC data. Current Interpretive Data was last revised on 2017. Testing performed by: [address] [address] Blood 02/12/2024 1:17 PM NATIONAL ACCOUNT DIRECTOR 02/12/2024 1:24 PM NATIONAL ACCOUNT DIRECTOR Venkat Vivar DO LAB BLOOD ORDERABLES Final R esult JAIME 1575 [facility] Department [place] [address] * (ABNORMAL) CBC with auto differential (02/12/2024 1:17 PM NATIONAL ACCOUNT DIRECTOR) WBC 5.6 3.8 - 9.9 K/cumm Comment:Testing performed by : [address] [address] Hgb 11.8(L) 13.0 - 17.5 g/dL JAIME Comment:Testing performed by : [address] [address] Hct 34.3(L) 38.9 - 50.3 % JAIME Comment:Testing performed by : [address] [address] Plt 122(L) 150 - 400 K/cumm JAIME Comment:Testing performed by : [address] [address] MPV 8.9(L) 9.1 - 12.3 fL JAIME Comment:Testing performed by : [address] [address] RBC 3.60(L) 4.30 - 5.80 M/cumm JAIME Comment:Testing performed by : [address] [address] MCV 95.3 81.3 - 96.4 fL JAIME Comment:Testing performed by : [address] [address] MCH 32.8 27.1 - 33.3 pg JAIME PINEDA Comment:Testing performed by : [address] [address] MCHC 34.4 32.3 - 35.7 g/dL JAIME Comment:Testing performed by : [address] [address] RDW CV 14.1 11.1 - 14.9 % JAIME PINEDA Comment:Testing performed by : [address] [address] RDW SD 48.1 35.7 - 48.1 fL JAIME PINEDA Comment:Testing performed by : [address] [address] NRBC abs 0.00 0.00 - 0.01 K/cumm JAIME PINEDA Comment:Testing performed by : [address] [address] Blood 02/12/2024 1:17 PM NATIONAL ACCOUNT DIRECTOR 02/12/2024 1:24 PM NATIONAL ACCOUNT DIRECTOR Venkat Vivar DO LAB BLOOD ORDERABLES Final R esult JAIME PINEDA 9515 [facility] Department [place] [address] * Comprehensive metabolic panel (02/12/2024 1:17 PM NATIONAL ACCOUNT DIRECTOR) Sodium 138 135 - 145 mmol/L Comment:Testing performed by : [address] [address] Potassium, pl 4.6 3.3 - 4.9 mmol/L JAIME PINEDA Comment:Testing performed by : [address] [address] Chloride 103 97 - 110 mmol/L JAIME PINEDA Comment:Testing performed by : [address] [address] CO2 28 22 - 32 mmol/L JAIME PINEDA Comment:Testing performed by : [address] [address] Anion gap 7 2 - 15 mmol/L JAIME PINEDA Comment:Testing performed by : [address] [address] BUN 17 6 - 25 mg/dL JAIME PINEDA Comment:Testing performed by : [address] [address] Creatinine 0.80 0.80 - 1.30 mg/dL JAIME PINEDA Comment:Testing performed by : [address] [address] Glucose 98 70 - 199 mg/dL JAIME Comment: Interpretive [...] was last revised 2022. Testing performed by: [address] [address] Calcium 8.9 8.5 - 10.3 mg/dL JAIME Comment:Testing performed by : [address] [address] Bilirubin, total 0.5 0.1 - 1.2 mg/dL [facility] Comment:Testing performed by : [address] [address] Protein, pl 7.0 6.5 - 8.5 g/dL [facility] Comment:Testing performed by : [address] [address] Albumin 3.9 3.5 - 5.0 g/dL [facility] Comment:Testing performed by : [address] [address] Alk phos 69 40 - 130 Units/L [facility] Comment:Testing performed by : [address] [address] ALT 14 7 - 55 Units/L [facility] Comment:Testing performed by : [address] [address] AST 14 10 - 50 Units/L JAIME Comment:Testing performed by : [address] [address] Blood 02/12/2024 1:17 PM NATIONAL ACCOUNT DIRECTOR 02/12/2024 1:24 PM NATIONAL ACCOUNT DIRECTOR us Venkat L. Cb DO LAB BLOOD ORDERABLES Final R esult JAIME 2826 [facility] Department [place] [address] * RAD ONC ARIA SESSION SUMMARY (02/12/2024 1:05 PM NATIONAL ACCOUNT DIRECTOR) Course Name C1_BLADDER_ 2023 ARIA Course Plan Date 01/22/2024 3:44 PM ARIA Elapsed Days 10 ARIA Treatment Start Date 2024 ARIA Treatment Site BLADDER ARIA Dose Given To Date (cGy) 2,475 ARIA Session Dosage Given (cGy) 275 ARIA Plan ID BLADDER ARIA Fractions Treated 9 ARIA Prescribed Dose Per Fraction (cGy) 275 ARIA Prescribed Total Dose (cGy) 5,500 ARIA 02/12/2024 1:05 PM NATIONAL ACCOUNT DIRECTOR us Not In File Miscellaneous RADIATION ONCOLOGY ORD ERABLES Final Result Performing Organization Address City/[facility]/ZIP Co de Phone Number ARIA * RAD ONC ARIA SESSION SUMMARY (02/11/2024 8:47 AM NATIONAL ACCOUNT DIRECTOR) Course Name [id number] ARIA Course Plan Date 01/22/2024 3:44 PM ARIA Elapsed Days 9 ARIA Treatment Start Date 2024 ARIA Treatment Site BLADDER ARIA Dose Given To Date (cGy) 2,200 ARIA Session Dosage Given (cGy) 275 ARIA Plan ID BLADDER ARIA Fractions Treated 8 ARIA Prescribed Dose Per Fraction (cGy) 275 ARIA Prescribed Total Dose (cGy) 5,500 ARIA 02/11/2024 8:47 AM NATIONAL ACCOUNT DIRECTOR us Not In File Miscellaneous RADIATION ONCOLOGY ORD ERABLES Final Result ARIA * RAD ONC ARIA SESSION SUMMARY (02/10/2024 8:44 AM NATIONAL ACCOUNT DIRECTOR) Course Name [id number] ARIA Course Plan Date 01/22/2024 3:44 PM ARIA Elapsed Days 8 ARIA Treatment Start Date 2024 ARIA Treatment Site BLADDER ARIA Dose Given To Date (cGy) 1,925 ARIA Session Dosage Given (cGy) 275 ARIA Plan ID BLADDER ARIA Fractions Treated 7 ARIA Prescribed Dose Per Fraction (cGy) 275 ARIA Prescribed Total Dose (cGy) 5,500 ARIA 02/10/2024 8:44 AM NATIONAL ACCOUNT DIRECTOR us Not In File Miscellaneous RADIATION ONCOLOGY ORD ERABLES Final Result ARIA * eGFR (02/09/2024 1:26 PM NATIONAL ACCOUNT DIRECTOR) eGFR >90 >=60 mL/min/1. 73 m2 Comment: [...] was last reviewed 2021. Testing performed by: [facility], [address] [place] [address], [place]., [address] Blood 02/09/2024 1:26 PM NATIONAL ACCOUNT DIRECTOR 02/09/2024 1:33 PM NATIONAL ACCOUNT DIRECTOR us Venkat Vivar DO LAB BLOOD ORDERABLES Final R esult JAIME PINEDA 9278 [facility] Department [place] [address] * Differential, auto (02/09/2024 1:26 PM NATIONAL ACCOUNT DIRECTOR) Neutrophil abs 3.2 1.5 - 6.5 K/cumm Comment:Testing performed by : [address] [address] Imm gran abs 0.0 0.0 - 0.1 K/cumm JAIME Comment:Testing performed by : [address] [address] Lymphocyte abs 1.1 0.8 - 3.3 K/cumm JAIME Comment:Testing performed by : [address] [address] Monocyte abs 0.3 0.2 - 0.8 K/cumm JAIME Comment:Testing performed by : [address] [address] Eosinophil abs 0.1 0.0 - 0.5 K/cumm JAIME Comment:Testing performed by : [address] [address] Basophil abs 0.0 0.0 - 0.1 K/cumm JAIME Comment:Testing performed by : [address] [address] Neutrophil pct 65.9 % JAIME Comment: Interpretive Data Percent cell count reference ranges are not reported, since discordance with absolute values may lead to misinterpretation of CBC data. Current Interpretive Data was last revised on 2017. Testing performed by: [address] [address] Imm gran pct 0.6 % JAIME Comment: Interpretive Data Percent cell count reference ranges are not reported, since discordance with absolute values may lead to misinterpretation of CBC data. Current Interpretive Data was last revised on 2017. Testing performed by: [address] [address] Lymphocyte pct 23.4 % [facility] Comment: Interpretive Data Percent cell count reference ranges are not reported, since discordance with absolute values may lead to misinterpretation of CBC data. Current Interpretive Data was last revised on 2017. Testing performed by: [address] [address] Monocyte pct 7.0 % [facility] Comment: Interpretive Data Percent cell count reference ranges are not reported, since discordance with absolute values may lead to misinterpretation of CBC data. Current Interpretive Data was last revised on 2017. Testing performed by: [address] [address] Eosinophil pct 2.7 % [facility] Comment: Interpretive Data Percent cell count reference ranges are not reported, since discordance with absolute values may lead to misinterpretation of CBC data. Current Interpretive Data was last revised on 2017. Testing performed by: [address] [address] Basophil pct 0.4 % [facility] Comment: Interpretive Data Percent cell count reference ranges are not reported, since discordance with absolute values may lead to misinterpretation of CBC data. Current Interpretive Data was last revised on 2017. Testing performed by: [address] [address] Blood 02/09/2024 1:2 6 PM NATIONAL ACCOUNT DIRECTOR 02/09/2024 1:33 PM NATIONAL ACCOUNT DIRECTOR us Venkat Vivar DO LAB BLOOD ORDERABLES Final R esult JAIME 7252 [facility] Department [place] [address] * (ABNORMAL) CBC with auto differential (02/09/2024 1:26 PM NATIONAL ACCOUNT DIRECTOR) WBC 4.9 3.8 - 9.9 K/cumm Comment:Testing performed by : [address] [address] Hgb 12.0(L) 13.0 - 17.5 g/dL JAIME Comment:Testing performed by : [address] [address] Hct 34.5(L) 38.9 - 50.3 % JAIME Comment:Testing performed by : [address] [address] Plt 166 150 - 400 K/cumm JAIME Comment:Testing performed by : [address] [address] MPV 8.9(L) 9.1 - 12.3 fL JAIME Comment:Testing performed by : [address] [address] RBC 3.67(L) 4.30 - 5.80 M/cumm JAIME Comment:Testing performed by : [address] [address] MCV 94.0 81.3 - 96.4 fL JAIME Comment:Testing performed by : [address] [address] MCH 32.7 27.1 - 33.3 pg JAIME Comment:Testing performed by : [address] [address] MCHC 34.8 32.3 - 35.7 g/dL JAIME Comment:Testing performed by : [address] [address] RDW CV 13.9 11.1 - 14.9 % JAIME Comment:Testing performed by : [address] [address] RDW SD 47.8 35.7 - 48.[address] [address] Comment:Testing performed by : [address] [address] NRBC abs 0.00 0.00 - 0.01 K/cumm JAIME Comment:Testing performed by : [address] [address] Blood 02/09/2024 1:26 PM NATIONAL ACCOUNT DIRECTOR 02/09/2024 1:33 PM NATIONAL ACCOUNT DIRECTOR us Venkat Vivar DO LAB BLOOD ORDERABLES Final R esult JAIME 1449 [facility] Department [place] [address] * Comprehensive metabolic panel (02/09/2024 1:26 PM NATIONAL ACCOUNT DIRECTOR) Sodium 139 135 - 145 mmol/L Comment:Testing performed by : [address] [address] Potassium, pl 3.8 3.3 - 4.9 mmol/L JAIME Comment:Testing performed by : [address] [address] Chloride 103 97 - 110 mmol/L JAIME Comment:Testing performed by : [address] [address] CO2 28 22 - 32 mmol/L JAIME Comment:Testing performed by : [address] [address] Anion gap 8 2 - 15 mmol/L JAIME Comment:Testing performed by : [address] [address] BUN 14 6 - 25 mg/dL JAIME Comment:Testing performed by : [address] [address] Creatinine 0.80 0.80 - 1.30 mg/dL JAIME Comment:Testing performed by : [address] [address] Glucose 102 70 - 199 mg/dL JAIME Comment: Interpretive [...] classification and Diagnosis of Diabetes Diabetes Care 202; 46: S19-S40. Current interpretive data was last revised 2022. Testing performed by: [address] [address] Calcium 8.9 8.5 - 10.3 mg/dL JAIME Comment:Testing performed by : [address] [address] Bilirubin, total 0.5 0.1 - 1.2 mg/dL JAIME Comment:Testing performed by : [address] [address] Protein, pl 7.2 6.5 - 8.5 g/dL JAIME Comment:Testing performed by : [address] [address] Albumin 4.1 3.5 - 5.0 g/dL JAIME Comment:Testing performed by : [address] [address] Alk phos 70 40 - 130 Units/L JAIME Comment:Testing performed by : [address] [address] ALT 15 7 - 55 Units/L JAIME Comment:Testing performed by : [address] [address] AST 16 10 - 50 Units/L JAIME Comment:Testing performed by : [address] [address] Blood 02/09/2024 1:26 PM NATIONAL ACCOUNT DIRECTOR 02/09/2024 1:33 PM NATIONAL ACCOUNT DIRECTOR Venkat Vivar DO LAB BLOOD ORDERABLES Final R esult JAIME 7699 [facility] Department of Laboratories [place], [place] [id number] * RAD ONC ARIA SESSION SUMMARY (02/09/2024 1:16 PM NATIONAL ACCOUNT DIRECTOR) Course Name C1_BLADDER_ 2023 ARIA Course Plan Date 01/22/2024 3:44 PM ARIA Elapsed Days 7 ARIA Treatment Start Date 2024 ARIA Treatment Site BLADDER ARIA Dose Given To Date (cGy) 1,650 ARIA Session Dosage Given (cGy) 275 ARIA Plan ID BLADDER ARIA Fractions Treated 6 ARIA Prescribed Dose Per Fraction (cGy) 275 ARIA Prescribed Total Dose (cGy) 5,500 ARIA 02/09/2024 1:16 PM NATIONAL ACCOUNT DIRECTOR us Not In File Miscellaneous RADIATION ONCOLOGY ORD ERABLES Final Result Performing Organization Address [facility] de Phone Number LADONNA * RAD ONC ARIA SESSION SUMMARY (02/06/2024 9:41 AM NATIONAL ACCOUNT DIRECTOR) Course Name C1_BLADDER_ 2023 ARIA Course Plan Date 01/22/2024 3:44 PM ARIA Elapsed Days 4 ARIA Treatment Start Date 2024 ARIA Treatment Site BLADDER ARIA Dose Given To Date (cGy) 1,375 ARIA Session Dosage Given (cGy) 275 ARIA Plan ID BLADDER ARIA Fractions Treated 5 ARIA Prescribed Dose Per Fraction (cGy) 275 ARIA Prescribed Total Dose (cGy) 5,500 ARIA 02/06/2024 9:41 AM NATIONAL ACCOUNT DIRECTOR us Not In File Miscellaneous RADIATION ONCOLOGY ORD ERABLES Final Result Performing Organization Address [facility] de Phone Number LADONNA * eGFR (02/05/2024 1:18 PM NATIONAL ACCOUNT DIRECTOR) eGFR >90 >=60 mL/min/1. 73 m2 Comment: [...] was last reviewed 2021. Testing performed by: [address] [address] Blood 02/05/2024 1:18 PM NATIONAL ACCOUNT DIRECTOR 02/05/2024 1:19 PM NATIONAL ACCOUNT DIRECTOR us Venkat Vivar DO LAB BLOOD ORDERABLES Final R esult JAIME 3503 [facility] Department of Laboratories [place], [place] [id number] * Differential, auto (02/05/2024 1:18 PM NATIONAL ACCOUNT DIRECTOR) Neutrophil abs 4.0 1.5 - 6.5 K/cumm Comment:Testing performed by : [address] [address] Imm gran abs 0.0 0.0 - 0.1 K/cumm JAIME Comment:Testing performed by : [address] [address] Lymphocyte abs 1.3 0.8 - 3.3 K/cumm JAIME Comment:Testing performed by : [address] [address] Monocyte abs 0.4 0.2 - 0.8 K/cumm JAIME Comment:Testing performed by : [address] [address] Eosinophil abs 0.2 0.0 - 0.5 K/cumm JAIME Comment:Testing performed by : [address] [address] Basophil abs 0.0 0.0 - 0.1 K/cumm JAIME Comment:Testing performed by : [address] [address] Neutrophil pct 67.1 % JAIME Comment: Interpretive Data Percent cell count reference ranges are not reported, since discordance with absolute values may lead to misinterpretation of CBC data. Current Interpretive Data was last revised on 2017. Testing performed by: [address] [address] Imm gran pct 0.3 % JAIME Comment: Interpretive Data Percent cell count reference ranges are not reported, since discordance with absolute values may lead to misinterpretation of CBC data. Current Interpretive Data was last revised on 2017. Testing performed by: [address] [address] Lymphocyte pct 21.0 % [facility] Comment: Interpretive Data Percent cell count reference ranges are not reported, since discordance with absolute values may lead to misinterpretation of CBC data. Current Interpretive Data was last revised on 2017. Testing performed by: [address] [address] Monocyte pct 6.9 % [facility] Comment: Interpretive Data Percent cell count reference ranges are not reported, since discordance with absolute values may lead to misinterpretation of CBC data. Current Interpretive Data was last revised on 2017. Testing performed by: [address] [address] Eosinophil pct 4.0 % [facility] Comment: Interpretive Data Percent cell count reference ranges are not reported, since discordance with absolute values may lead to misinterpretation of CBC data. Current Interpretive Data was last revised on 2017. Testing performed by: [address] [address] Basophil pct 0.7 % [facility] Comment: Interpretive Data Percent cell count reference ranges are not reported, since discordance with absolute values may lead to misinterpretation of CBC data. Current Interpretive Data was last revised on 2017. Testing performed by: [address] [address] Blood 02/05/2024 1:18 PM NATIONAL ACCOUNT DIRECTOR 02/05/2024 1:19 PM NATIONAL ACCOUNT DIRECTOR us Venkat Vivar DO LAB BLOOD ORDERABLES Final R esult JAIME 3998 [facility] Department [place] [address] * (ABNORMAL) CBC with auto differential (02/05/2024 1:18 PM NATIONAL ACCOUNT DIRECTOR) [facility] WBC 6.0 3.8 - 9.9 K/cumm Comment:Testing performed by : [address] [address] Hgb 11.5(L) 13.0 - 17.5 g/dL JAIME Comment:Testing performed by : [address] [address] Hct 33.3(L) 38.9 - 50.3 % JAIME Comment:Testing performed by : [address] [address] Plt 173 150 - 400 K/cumm JAIME Comment:Testing performed by : [address] [address] MPV 8.9(L) 9.1 - 12.3 fL JAIME Comment:Testing performed by : [address] [address] RBC 3.52(L) 4.30 - 5.80 M/cumm JAIME Comment:Testing performed by : [address] [address] MCV 94.6 81.3 - 96.4 fL JAIME Comment:Testing performed by : [address] [address] MCH 32.7 27.1 - 33.3 pg JAIME PINEDA Comment:Testing performed by : [address] [address] MCHC 34.5 32.3 - 35.7 g/dL JAIME Comment:Testing performed by : [address] [address] RDW CV 14.2 11.1 - 14.9 % JAIME Comment:Testing performed by : [address] [address] RDW SD 48.6(H) 35.7 - 48.1 fL JAIME PINEDA Comment:Testing performed by : [address] [address] NRBC abs 0.00 0.00 - 0.01 K/cumm JAIME Comment:Testing performed by : [address] [address] Blood 02/05/2024 1:18 PM NATIONAL ACCOUNT DIRECTOR 02/05/2024 1:19 PM NATIONAL ACCOUNT DIRECTOR Venkat Vivar DO LAB BLOOD ORDERABLES Final R esult JAIME [facility] Department [place] [address] * Comprehensive metabolic panel (02/05/2024 1:18 PM NATIONAL ACCOUNT DIRECTOR) Sodium 140 135 - 145 mmol/L Comment:Testing performed by : [address] [address] Potassium, pl 4.2 3.3 - 4.9 mmol/L JAIME Comment:Testing performed by : [address] [address] Chloride 105 97 - 110 mmol/L JAIME Comment:Testing performed by : [address] [address] CO2 27 22 - 32 mmol/L JAIME Comment:Testing performed by : [address] [address] Anion gap 8 2 - 15 mmol/L JAIME Comment:Testing performed by : [address] [address] BUN 15 6 - 25 mg/dL JAIME PINEDA Comment:Testing performed by : [address] [address] Creatinine 0.80 0.80 - 1.30 mg/dL JAIME Comment:Testing performed by : [address] [address] Glucose 100 70 - 199 mg/dL JAIME Comment: Interpretive [...] was last revised 2022. Testing performed by: [address] [address] Calcium 8.8 8.5 - 10.3 mg/dL JAIME Comment:Testing performed by : [address] [address] Bilirubin, total 0.4 0.1 - 1.2 mg/dL JAIME Comment:Testing performed by : [address] [address] Protein, pl 6.8 6.5 - 8.5 g/dL JAIME Comment:Testing performed by : [address] [address] Albumin 3.9 3.5 - 5.0 g/dL JAIME Comment:Testing performed by : [address] [address] Alk phos 68 40 - 130 Units/L JAIME Comment:Testing performed by : [address] [address] ALT 15 7 - 55 Units/L JAIME Comment:Testing performed by : [address] [address] AST 15 10 - 50 Units/L JAIME Comment:Testing performed by : [address] [address] Blood 02/05/2024 1:18 PM NATIONAL ACCOUNT DIRECTOR 02/05/2024 1:19 PM NATIONAL ACCOUNT DIRECTOR us Venkat Vivar DO LAB BLOOD ORDERABLES Final R esult JAIME 0109 [facility] Department [place] [address] * RAD ONC ARIA SESSION SUMMARY (02/05/2024 12:55 PM NATIONAL ACCOUNT DIRECTOR) Course Name C1_BLADDER_ 2023 ARIA Course Plan Date 01/22/2024 3:44 PM ARIA Elapsed Days 3 ARIA Treatment Start Date 2024 ARIA Treatment Site BLADDER ARIA Dose Given To Date (cGy) 1,100 ARIA Session Dosage Given (cGy) 275 ARIA Plan ID BLADDER ARIA Fractions Treated 4 ARIA Prescribed Dose Per Fraction (cGy) 275 ARIA Prescribed Total Dose (cGy) 5,500 ARIA 02/05/2024 12:5 5 PM NATIONAL ACCOUNT DIRECTOR us Not In File Miscellaneous RADIATION ONCOLOGY ORD ERABLES Final Result ARIA * RAD ONC ARIA SESSION SUMMARY (02/04/2024 1:54 PM NATIONAL ACCOUNT DIRECTOR) Course Name [id number] ARIA Course Plan Date 01/22/2024 3:44 PM ARIA Elapsed Days 2 ARIA Treatment Start Date 2024 ARIA Treatment Site BLADDER ARIA Dose Given To Date (cGy) 825 ARIA Session Dosage Given (cGy) 275 ARIA Plan ID BLADDER ARIA Fractions Treated 3 ARIA Prescribed Dose Per Fraction (cGy) 275 ARIA Prescribed Total Dose (cGy) 5,500 ARIA 02/04/2024 1:54 PM NATIONAL ACCOUNT DIRECTOR us Not In File Miscellaneous RADIATION ONCOLOGY ORD ERABLES Final Result ARIA * RAD ONC ARIA SESSION SUMMARY (02/03/2024 8:21 AM NATIONAL ACCOUNT DIRECTOR) Course Name [id number] ARIA Course Plan Date 01/22/2024 3:44 PM ARIA Elapsed Days 1 ARIA Treatment Start Date 2024 ARIA Treatment Site BLADDER ARIA Dose Given To Date (cGy) 550 ARIA Session Dosage Given (cGy) 275 ARIA Plan ID BLADDER ARIA Fractions Treated 2 ARIA Prescribed Dose Per Fraction (cGy) 275 ARIA Prescribed Total Dose (cGy) 5,500 ARIA 02/03/2024 8:21 AM NATIONAL ACCOUNT DIRECTOR us Not In File Miscellaneous RADIATION ONCOLOGY ORD ERABLES Final Result ARIGeetha * eGFR (2024 12:47 PM NATIONAL ACCOUNT DIRECTOR) eGFR >90 >=60 mL/min/1. 73 m2 Comment: [...] was last reviewed 2021. Testing performed by: [facility], [address] [place] [address], [place]., [address] Blood 2024 12:4 7 PM NATIONAL ACCOUNT DIRECTOR 2024 12:49 PM NATIONAL ACCOUNT DIRECTOR Venkat Vivar DO LAB BLOOD ORDERABLES Final R esult JAIME 9990 [facility] Department [place] [address] * Differential, auto (2024 12:47 PM NATIONAL ACCOUNT DIRECTOR) Neutrophil abs 4.2 1.5 - 6.5 K/cumm Comment:Testing performed by : [address] [address] Imm gran abs 0.0 0.0 - 0.1 K/cumm JAIME Comment:Testing performed by : [address] [address] Lymphocyte abs 1.5 0.8 - 3.3 K/cumm JAIME Comment:Testing performed by : [address] [address] Monocyte abs 0.8 0.2 - 0.8 K/cumm JAIME Comment:Testing performed by : [address] [address] Eosinophil abs 0.2 0.0 - 0.5 K/cumm JAIME Comment:Testing performed by : [address] [address] Basophil abs 0.0 0.0 - 0.1 K/cumm JAIME Comment:Testing performed by : [address] [address] Neutrophil pct 61.5 % [facility] Comment: Interpretive Data Percent cell count reference ranges are not reported, since discordance with absolute values may lead to misinterpretation of CBC data. Current Interpretive Data was last revised on 2017. Testing performed by: [address] [address] Imm gran pct 0.4 % JAIME Comment: Interpretive Data Percent cell count reference ranges are not reported, since discordance with absolute values may lead to misinterpretation of CBC data. Current Interpretive Data was last revised on 2017. Testing performed by: [address] [address] Lymphocyte pct 22.4 % [facility] Comment: Interpretive Data Percent cell count reference ranges are not reported, since discordance with absolute values may lead to misinterpretation of CBC data. Current Interpretive Data was last revised on 2017. Testing performed by: [address] [address] Monocyte pct 11.9 % [facility] Comment: Interpretive Data Percent cell count reference ranges are not reported, since discordance with absolute values may lead to misinterpretation of CBC data. Current Interpretive Data was last revised on 2017. Testing performed by: [address] [address] Eosinophil pct 3.2 % [facility] Comment: Interpretive Data Percent cell count reference ranges are not reported, since discordance with absolute values may lead to misinterpretation of CBC data. Current Interpretive Data was last revised on 2017. Testing performed by: [address] [address] Basophil pct 0.6 % [facility] Comment: Interpretive Data Percent cell count reference ranges are not reported, since discordance with absolute values may lead to misinterpretation of CBC data. Current Interpretive Data was last revised on 2017. Testing performed by: [address] [address] Blood 2024 12:4 7 PM NATIONAL ACCOUNT DIRECTOR 2024 12:49 PM NATIONAL ACCOUNT DIRECTOR us Venkat Vivar DO LAB BLOOD ORDERABLES Final R esult JAIME PINEDA 0059 [facility] Department [place] [address] * (ABNORMAL) CBC with auto differential (2024 12:47 PM NATIONAL ACCOUNT DIRECTOR) WBC 6.8 3.8 - 9.9 K/cumm Comment:Testing performed by : [address] [address] Hgb 12.6(L) 13.0 - 17.5 g/dL JAIME Comment:Testing performed by : [address] [address] Hct 37.0(L) 38.9 - 50.3 % JAIME Comment:Testing performed by : [address] [address] Plt 185 150 - 400 K/cumm JAIME Comment:Testing performed by : [address] [address] MPV 8.9(L) 9.1 - 12.3 fL JAIME Comment:Testing performed by : [address], [address] RBC 3.89(L) 4.30 - 5.80 M/cumm JAIME Comment:Testing performed by : [address], [address] MCV 95.1 81.3 - 96.4 fL JAIME Comment:Testing performed by : [address] [address] MCH 32.4 27.1 - 33.3 pg JAIME Comment:Testing performed by : [address] [address] MCHC 34.1 32.3 - 35.7 g/dL JAIME Comment:Testing performed by : [address], [address] RDW CV 14.3 11.1 - 14.9 % JAIME Comment:Testing performed by : [address], [address] RDW SD 50.1(H) 35.7 - 48.1 fL JAIME Comment:Testing performed by : [address] [address] NRBC abs 0.00 0.00 - 0.01 K/cumm JAIME Comment:Testing performed by : [address], [address] Blood 2024 12:4 7 PM NATIONAL ACCOUNT DIRECTOR 2024 12:49 PM NATIONAL ACCOUNT DIRECTOR Venkat Vivar DO LAB BLOOD ORDERABLES Final R esult JAIME PINEDA 7663 [facility] Department [place] [address] * Comprehensive metabolic panel (2024 12:47 PM NATIONAL ACCOUNT DIRECTOR) Pathologist [facility] Sodium 142 135 - 145 mmol/L Comment:Testing performed by : [address] [address] Potassium, pl 4.4 3.3 - 4.9 mmol/L JAIME Comment:Testing performed by : [address] [address] Chloride 107 97 - 110 mmol/L JAIME Comment:Testing performed by : [address] [address] CO2 27 22 - 32 mmol/L JAIME Comment:Testing performed by : [address] [address] Anion gap 8 2 - 15 mmol/L JAIME Comment:Testing performed by : [address] [address] BUN 15 6 - 25 mg/dL JAIME Comment:Testing performed by : [address] [address] Creatinine 0.80 0.80 - 1.30 mg/dL JAIME Comment:Testing performed by : [address] [address] Glucose 108 70 - 199 mg/dL JAIME Comment: Interpretive [...] classification and Diagnosis of Diabetes Diabetes Care 202; 46: S19-S40. Current interpretive data was last revised 2022. Testing performed by: [address] [address] Calcium 9.0 8.5 - 10.3 mg/dL JAIME Comment:Testing performed by : [address] [address] Bilirubin, total 0.4 0.1 - 1.2 mg/dL JAIME Comment:Testing performed by : [address] [address] Protein, pl 7.2 6.5 - 8.5 g/dL JAIME Comment:Testing performed by : [address] [address] Albumin 4.1 3.5 - 5.0 g/dL JAIME Comment:Testing performed by : [address] [address] Alk phos 71 40 - 130 Units/L JAIME Comment:Testing performed by : [address] [address] ALT 15 7 - 55 Units/L JAIME Comment:Testing performed by : [address] [address] AST 16 10 - 50 Units/L JAIME Comment:Testing performed by : [address] [address] Blood 2024 12:4 7 PM NATIONAL ACCOUNT DIRECTOR 2024 12:49 PM NATIONAL ACCOUNT DIRECTOR Venkat Vivar DO LAB BLOOD ORDERABLES Final R esult JAIME 3805 [facility] Department [place] [address] * RAD ONC ARIA SESSION SUMMARY (2024 11:28 AM NATIONAL ACCOUNT DIRECTOR) Course Name C1_BLADDER_ 2023 ARIA Course Plan Date 01/22/2024 3:44 PM ARIA Elapsed Days 0 ARIA Treatment Start Date 2024 ARIA Treatment Site BLADDER ARIA Dose Given To Date (cGy) 275 ARIA Session Dosage Given (cGy) 275 ARIA Plan ID BLADDER ARIA Fractions Treated 1 ARIA Prescribed Dose Per Fraction (cGy) 275 ARIA Prescribed Total Dose (cGy) 5,500 ARIA 2024 11:2 8 AM NATIONAL ACCOUNT DIRECTOR us Not In File Miscellaneous RADIATION ONCOLOGY ORD ERABLES Final Result ARIA from Last 3 Months Insurance MEDICARE [facility] MEDICARE [facility] MEDICARE SUPPLEMENT MEDICARE [facility] MEDICARE SUPPLEMENT Care Teams Unit Nurse Relationship Specialty Start Date End Date Nikky Reyes MD [facility] [address] [place] [address] PCP - General Family Practice 12/15/23 Venkat Vivar DO 1418 [facility] MEDICAL ONCOLOGY, [facility] [address] [place] [address] Medical Oncologist/Director Patient Financial Services Hematology and Oncology 12/15/23 Kwaku Maritn MD [address] [place] [address] Consulting Physician Urology 12/15/23 Richard Hargrove MD [address] [address] Radiation Oncologist Radiation Oncology 01/08/24 Adelso Quiñones [place] [address] [address] Surgeon Urology 01/22/24
--- OUTSIDE RECORDS SUMMARY | 2024-04-12 11:34 | XMS_ITS | Encounter Summary ---
Author Organization [facility] Address [address] [place] [address] Phone Care Team Providers Care Zoo Director Name Role Phone Nikky Reyes MD Primary Care Provider Venkat Vivar DO Unavailable [phone] Kwaku Martin MD Unavailable [phone] Richard Hargrove MD Unavailable [phone] Adelso Quiñones MD Unavailable [phone] Encounter Details Date Type Department Care Team (Late st Contact Info) Description 03/08/2024 Telephone [facility] Oncology [facility] [address] [place] [address] Laura Arias, RN Social History Tobacco Use Types Packs/Day Years [...] on file Legal Sex Male 2:03 AM WINDSMITH Gender Identity Not on file Sexual Orientation Not on file Occupation Industry Job Start Date Job End Date Retired Not on file Not on file Not on file documented as of this encounter Ordered Prescriptions Prescription Sig Dispense Quantity Refills Last Filled Start Date End Date metoclopramide (REGLAN) 10 mg tablet Take 1 tablet (10 mg total) by mouth 3 (three) times a day 90 tablet 03/08/2024 04/05/2024 documented in this encounter Miscellaneous Notes * Telephone Encounter - Laura Arias RN - 03/08/2024 11:22 AM WINDSMITH Patient called to report he is still having vomiting when trying to have a BM in the morning. Denies blood in stool or abdominal pain outside of when he is trying to have a BM. No nausea or vomiting at any other time. Is taking the Miralax and Metamucil, has decreased it though. Dr. Vivar notified and order for Reglan 10 mg tid. Spoke with patient and advised of prescription for Reglan and to call if is not having relief in the next few days. Patient vu. SMITH documented in this encounter Plan of Treatment Not on file documented as of this encounter Visit Diagnoses Not on filedocumented in this encounter Care Teams Zoo Director Relationship Specialty Start Date End Date Nikky Reyes MD [facility]7 [facility] [address] [place] [address] PCP - General Family Practice 12/15/23 [place] [address] [place] [address] MEDICAL ONCOLOGY, [address] [address] Medical Oncologist/Ammunition Assembly Ii Laborer Hematology and Oncology 12/15/23 Kwaku Martin MD 1 [place] [address] Consulting Physician Urology 12/15/23 Richard Hargrove MD [facility] [address] Radiation Oncologist Radiation Oncology 01/08/24 Adelso Quiñones [place] [address] [address] Surgeon Urology 01/22/24 documented as of this encounter
--- OUTSIDE RECORDS SUMMARY | 2024-04-12 11:34 | XMS_ITS | Encounter Summary ---
Author Organization [facility] Healthcare Address [address] [place] [address] Care Team Providers Care Mop Handle Assembler Name Role Phone Nikky Reyes MD Primary Care Provider Venkat Vivar DO Unavailable [phone] Kwaku Martin MD Unavailable [phone] Richard Hargrove MD Unavailable [phone] Adelso Quiñones MD Unavailable [phone] Encounter Details Date Type Department Care Team (Late st Contact Info) Description 03/01/2024 Orders Only RAD ONC TREATMENTS Miscellaneous, Not In File Social History Tobacco Use Types Packs/Day Years [...] on file Legal Sex Male 2:03 AM PEANUT VENDOR Gender Identity Not on file Sexual Orientation Not on file Occupation Industry Job Start Date Job End Date Retired Not on file Not on file Not on file documented as of this encounter Plan of Treatment Not on file documented as of this encounter Procedures Procedure Name Priority Date/Time Associated Diagnosis Comments RAD ONC ARIA COURSE SUMMARY 03/01/2024 4:28 PM PEANUT VENDOR documented in this encounter Results * RAD ONC ARIA COURSE SUMMARY (03/01/2024 4:28 PM PEANUT VENDOR) Course Name C1_BLADDER_ 2023 ARIA Course Plan Date 01/22/2024 3:44 PM ARIA Elapsed Days 28 ARIA Treatment Start Date 2024 ARIA Treatment Site BLADDER ARIA Dose Given To Date (cGy) 5,500 ARIA Session Dosage Given (cGy) 0 ARIA Plan ID BLADDER ARIA Fractions Treated 20 ARIA Prescribed Dose Per Fraction (cGy) 275 ARIA Prescribed Total Dose (cGy) 5,500 ARIA 03/01/2024 4:28 PM PEANUT VENDOR us Not In File Miscellaneous RADIATION ONCOLOGY ORD ERABLES Final Result ARIA documented in this encounter Visit Diagnoses Not on filedocumented in this encounter Care Teams Mop Handle Assembler Relationship Specialty Start Date End Date Nikky Reyes MD [address] [place] [address] 2 [place] [address] PCP - General Family Practice 12/15/23 [place] [address] [place] [address] MEDICAL ONCOLOGY, [facility] [address] [place], [place] [id number] Medical Oncologist/Field Services Manager Hematology and Oncology 12/15/23 Kwaku Martin MD 1 [place] [address] Consulting Physician Urology 12/15/23 Richard Hargrove MD [address] [address] Radiation Oncologist Radiation Oncology 01/08/24 Adelso Quiñones [place] [address] [place] [address] Surgeon Urology 01/22/24 documented as of this encounter
--- OUTSIDE RECORDS SUMMARY | 2024-04-12 11:34 | XMS_ITS | Encounter Summary ---
Author Organization [facility] Healthcare Address [address] [place] [address] Care Team Providers Care Summons Server Name Role Phone Nikky Reyes MD Primary Care Provider Venkat Vivar DO Unavailable [phone] Kwaku Martin MD Unavailable [phone] Richard Hargrove MD Unavailable [phone] Adelos Quiñones MD Unavailable [phone] Encounter Details Date Type Department Care Team (Late st Contact Info) Description 03/01/2024 Completion of Therapy [facility] Medical Office Building 2 Radiation Oncology [address] [place], [place] [address] Richard Hargrove MD [address] [place] [address] Social History Tobacco Use Types Packs/Day Years [...] on file Legal Sex Male 2:03 AM EXERCISE PHYSIOLOGY PROFESSOR Gender Identity Not on file Sexual Orientation Not on file Occupation Industry Job Start Date Job End Date Retired Not on file Not on file Not on file documented as of this encounter Progress Notes * Jade Fall PA - 03/01/2024 11:59 PM CST Radiation Oncologist: Richard Hargrove MD Primary Care Physician: Nikky Reyes MD Medical Oncologist: Venkat Vivar DO Surgeon: Adelso Quiñones MD Referring Provider: No ref. provider found Date of Service: 03/01/2024 RADIATION ONCOLOGY COMPLETION OF THERAPY (COT) Identifying Data: Cancer Staging Malignant neoplasm of urinary bladder (HCC) Staging form: Urinary Bladder, AJCC 8th Edition - Clinical stage from 12/05/2023: Stage II (cT2, cN0, cM0) - Signed by Chayo Card MD on 01/22/2024 Treatment Delivered: Start Date: 2024 End Date: 03/01/2024 Radiation Treatments No active radiation treatments to show. Radiation Treatments Historical Plans BLADDER Most recent treatment: Dose planned: 275 cGy (fraction 20 on 03/01/2024) Total: Dose planned: 5,500 cGy Elapsed Days: 28 Reference Points BLADDER Most recent treatment: Dose given: 0 cGy (on 03/01/2024) Total: Dose given: 5,500 cGy Elapsed Days: 28 Concurrent Therapy: Systemic Therapy, medication:Gemcitabine Pain Plan: RAD ONC PAIN PLAN: The patient is not currently having any pain that requires changes in pain management. Tolerance to Treatment: Mr. Aranda tolerated the treatment well. Disposition: Follow up in clinic in 6 weeks. Post treatment skin care instructions given. Patient was instructed to call with any concerns prior to scheduled follow up visit. Richard Hargrove MD supervised the patient???s radiation treatment as summarized. Cosigned by Richard Hargrove MD at 03/03/2024 10:09 AM EXERCISE PHYSIOLOGY PROFESSOR CISE PHYSIOLOGY PROFESSOR CISE PHYSIOLOGY PROFESSOR documented in this encounter Plan of Treatment Not on file documented as of this encounter Visit Diagnoses Not on filedocumented in this encounter Care Teams Summons Server Relationship Specialty Start Date End Date Nikky Reyes MD [facility]7 [facility] [address] [place] [address] PCP - General Family Practice 12/15/23 Venkat Vivar DO 1418 [facility] MEDICAL ONCOLOGY, [facility] [address] [place] [address] Medical Oncologist/Knitter Mechanic Hematology and Oncology 12/15/23 Kwaku Martin MD 1 [place] [address] Consulting Physician Urology 12/15/23 Richard Hargrove MD 1418 [facility] [address] [place] [address] Radiation Oncologist Radiation Oncology 01/08/24 Adelso Quiñones [place] [address] [address] [place] [address] Surgeon Urology 01/22/24 documented as of this encounter
--- OUTSIDE RECORDS SUMMARY | 2024-04-12 11:34 | XMS_ITS | Encounter Summary ---
Author Organization [facility] Healthcare Address [address] [place] [address] Care Team Providers Care Maintenance Service Dispatcher Name Role Phone Nikky Reyes MD Primary Care Provider Venkat Vivar DO Unavailable [phone] Kwaku Martin MD Unavailable [phone] Richard Hargrove MD Unavailable [phone] Adelso Quiñones MD Unavailable [phone] Encounter Details Date Type Department Care [...] on file Legal Sex Male 2:03 AM MARKETING UNDERWRITER Gender Identity Not on file Sexual Orientation Not on file Occupation Industry Job Start Date Job End Date Retired Not on file Not on file Not on file documented as of this encounter Plan of Treatment Not on file documented as of this encounter Procedures Procedure Name Priority Date/Time Associated Diagnosis Comments RAD ONC ARIA SESSION SUMMARY 03/01/2024 9:55 AM MARKETING UNDERWRITER documented in this encounter Results * RAD ONC ARIA SESSION SUMMARY (03/01/2024 9:55 AM MARKETING UNDERWRITER) Course Name C1_BLADDER_ 2023 ARIA Course Plan Date 01/22/2024 3:44 PM ARIA Elapsed Days 28 ARIA Treatment Start Date 2024 ARIA Treatment Site BLADDER ARIA Dose Given To Date (cGy) 5,500 ARIA Session Dosage Given (cGy) 275 ARIA Plan ID BLADDER ARIA Fractions Treated 20 ARIA Prescribed Dose Per Fraction (cGy) 275 ARIA Prescribed Total Dose (cGy) 5,500 ARIA 03/01/2024 9:55 AM MARKETING UNDERWRITER us Not In File Miscellaneous RADIATION ONCOLOGY ORD ERABLES Final Result ARIA documented in this encounter Visit Diagnoses Not on filedocumented in this encounter Care Teams Maintenance Service Dispatcher Relationship Specialty Start Date End Date Nikky Reyes MD [address] [place] [address] 2 [place] [address] PCP - General Family Practice 12/15/23 [place] [address] [place] [address] MEDICAL ONCOLOGY, [facility] [address] [place], [place] [id number] Medical Oncologist/Dust Puller Hematology and Oncology 12/15/23 Kwaku Martin MD 1 [place] [address] Consulting Physician Urology 12/15/23 Richard Hargrove MD [address] [address] Radiation Oncologist Radiation Oncology 01/08/24 Adelso Quiñones [place] [address] [place] [address] Surgeon Urology 01/22/24 documented as of this encounter
--- OUTSIDE RECORDS SUMMARY | 2024-04-12 11:34 | XMS_ITS | Encounter Summary ---
Author Organization [facility] Healthcare Address [address] [place] [address] Care Team Providers Care Ground Crewman Aircraft Support Name Role Phone Nikky Reyes MD Primary Care Provider Venkat Vivar DO Unavailable [phone] Kwaku Martin MD Unavailable [phone] Richard Hargrove MD Unavailable [phone] Adelso Quiñones MD Unavailable [phone] Reason for Visit * Reason Comments OTV Encounter Details Date Type Department Care Team ([facility] Contact Info) Description 03/01/[address] [facility] Medical Office Building 2 Radiation Oncology [address] [place], [place] [id number] Richard Hargrove MD [address] [place], [place] [address] Social History Tobacco Use Types Packs/Day Years [...] on file Legal Sex Male 2:03 AM REPAIR ARMATURE WINDER HELPER Gender Identity Not on file Sexual Orientation Not on file Occupation Industry Job Start Date Job End Date Retired Not on file Not on file Not on file documented as of this encounter Last Filed Vital Signs Vital Sign Reading Time Taken Comments Blood Pressure 116/75 03/01/2024 10:37 AM REPAIR ARMATURE WINDER HELPER Pulse 88 03/01/2024 10:37 AM REPAIR ARMATURE WINDER HELPER Temperature - - Respiratory Rate - - Oxygen Saturation 98% 03/01/2024 10:37 AM REPAIR ARMATURE WINDER HELPER Inhaled Oxygen Concentration - - Weight 88.5 kg (195 lb) 03/01/2024 10:37 AM REPAIR ARMATURE WINDER HELPER Height - - Body Mass Index 25.73 02/25/2024 12:13 AM REPAIR ARMATURE WINDER HELPER documented in this encounter Progress Notes * Richard Hargrove MD - 03/01/2024 10:36 AM CST PATIENT NAME: Venkat Aranda DATE OF : 1950 TREATING PHYSICIAN:Richard Hargrove MD DATE OF SERVICE: 03/01/2024 RADIATION ONCOLOGY ON TREATMENT VISIT NOTE DIAGNOSIS:: Cancer Staging Malignant neoplasm of urinary bladder (HCC) Staging form: Urinary Bladder, AJCC 8th Edition - Clinical stage from 12/05/2023: Stage II (cT2, cN0, cM0) - Signed by Chayo Card MD on 01/22/2024 TREATMENT: Radiation Treatments Active Plans BLADDER Most recent treatment: Dose planned: 275 cGy (fraction 20 on 03/01/2024) Total: Dose planned: 5,500 cGy Elapsed Days: 28 Reference Points BLADDER Most recent treatment: Dose given: 275 cGy (on 03/01/2024) Total: Dose given: 5,500 cGy Elapsed Days: 28 Radiation Treatments No historical radiation treatments to show. SUBJECTIVE: The patient states that he is doing well. Today he reports that he is starting to move his bowels again. More urinary frequency and urgency, not bothersome. Had one episode of blood tinged urine, painless. EXAM: BP 116/75 Pulse 88 Wt 88.5 kg (195 lb) SpO2 98% BMI 25.73 kg/m?? Pain Score and Location 03/01/24 1037 PainSc: 0-No pain No acute distress. No skin changes. Urinary tract effects: 0 - None Gastrointestinal effects: 0 - None Consitutional effects: 0 - None ASSESSMENT: Experiencing anticipated side effects and Treatment completed PLAN: Return for follow-up 6 weeks Will continue to monitor hematuria. RAD ONC PAIN PLAN: The patient is not currently having any pain that requires changes in pain management. IR ARMATURE WINDER HELPER IR ARMATURE WINDER HELPER documented in this encounter Plan of Treatment Not on file documented as of this encounter Visit Diagnoses Not on filedocumented in this encounter Care Teams Ground Crewman Aircraft Support Relationship Specialty Start Date End Date Nikky Reyes MD [address] [facility] [address] [place], [place] [id number] PCP - General Family Practice 12/15/23 Venkat Vivar DO [address] [facility], [facility] [address] [place] [address] Medical Oncologist/Buffing Wheel Former [employer] Hematology and Oncology 12/15/23 Kwaku Martin MD [address] [place] [address] Consulting Physician Urology 12/15/23 Richard Hargrove MD [address] [facility] [address] [place], [place] [address] Radiation Oncologist Radiation Oncology 01/08/24 Adelso Quiñones [place] [address] [place] [address] Surgeon Urology 01/22/24 documented as of this encounter
--- OUTSIDE RECORDS SUMMARY | 2024-04-12 11:34 | XMS_ITS | Referral Summary ---
Author Organization [facility] [place] [facility] [address] Address [address] [place] [address] Care Team Providers Care Judicial Law Clerk Name Role Phone Nikky Reyes MD Primary Care Provider Venkat Vivar DO Unavailable [phone] Kwaku Martin MD Unavailable Richard Hargrove MD Unavailable [phone] Adelso Quiñones MD Unavailable [phone] Encounters Date Type Department Care Team Description 03/08/2024 Telephone [facility] Oncology [address] [place] [address] [address] [place] [phone] Laura Arias, ODILON 03/01/2024 Completion of Therapy [facility] Medical Office Building 2 Radiation Oncology [address] [place] [address] Richard Hargrove MD 03/01/2024 Orders Only RAD ONC TREATMENTS Miscellaneous, Not In File 03/01/2024 OTV [facility] Medical Office Building 2 Radiation Oncology [address] [place] [address] Richard Hargrove MD 03/01/2024 Orders Only RAD ONC TREATMENTS Miscellaneous, Not In File 03/01/2024 10:00 AM CORE STACKER Lab [facility] at [address] [phone] Malignant neoplasm of urinary bladder, unspecified site (HCC) 03/01/2024 10:45 AM CORE STACKER Office Visit [facility] Oncology [address] [place] [phone] Venkat Vivar DO 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); Malignant neoplasm of urinary bladder, unspecified site (HCC); Anemia due to chemotherapy 03/01/2024 9:30 AM CORE STACKER Treatment [facility] Medical Office Building 2 Radiation Oncology [address] [place] [address] Richard Hargrove MD 02/25/2024 Orders Only RAD ONC TREATMENTS Miscellaneous, Not In File 02/25/2024 12:39 AM CORE STACKER - 02/25/2024 4:06 AM [facility] Emergency [facility] Emergency Department [employer] [place] [address] Kwaku Roland Jr., MD Abdominal pain (Primary Dx); Constipation, unspecified constipation type; Colitis Discharge Disposition: Discharge to home or self care 02/25/2024 9:30 AM CORE STACKER [facility] Medical Office Building 2 Radiation Oncology [address] [place] [phone] 02/24/2024 Telephone [facility] Medical Office Building 2 Radiation Oncology [address] [place] [address] Ibeth Jo RN 02/24/2024 Orders Only RAD ONC TREATMENTS Miscellaneous, Not In File 02/24/2024 9:30 AM CORE STACKER [facility] Medical Office Building 2 Radiation Oncology [address] [place] [address] 02/23/2024 OTV [facility] Medical Office Building 2 Radiation Oncology [address] [place] [address] Richard Hargrove MD 02/23/2024 Orders Only RAD ONC TREATMENTS Miscellaneous, Not In File 02/23/2024 11:00 AM CORE STACKER [facility] at [address] [place] [phone] Malignant neoplasm of urinary bladder, unspecified site (HCC) (Primary Dx); Encounter for person encountering health services 02/23/2024 10:15 AM CORE STACKER Lab [facility] at [address] [address] Encounter for person encountering health services; Malignant neoplasm of urinary bladder, unspecified site (HCC) 02/23/2024 9:30 AM CORE STACKER Treatment [facility] Medical Office Building 2 Radiation Oncology [address] [place] [address] 02/22/2024 Orders Only [facility] Oncology [address] [place] [phone] Venkat Vivar DO 02/22/2024 Orders Only RAD ONC TREATMENTS Miscellaneous, Not In File 02/22/2024 9:30 AM CORE STACKER Treatment [facility] Medical Office Building 2 Radiation Oncology [address] [place] [address] 02/20/[address] [facility] Office Building 2 Radiation Oncology [address] [place] [address] Ibeth Jo, ODILON 02/20/2024 Orders Only RAD ONC TREATMENTS Miscellaneous, Not In File 02/20/2024 9:30 AM CORE STACKER Treatment [facility] Office Building 2 Radiation Oncology [address] [place] [address] 02/19/2024 Orders Only RAD ONC TREATMENTS Miscellaneous, Not In File 02/19/2024 11:45 AM CORE STACKER Infusion [facility] [place] at [address] [phone] Malignant neoplasm of urinary bladder, unspecified site (HCC) (Primary Dx); Encounter for person encountering health services 02/19/2024 11:00 AM CORE STACKER Lab [facility] at [address] [address] Encounter for person encountering health services; Malignant neoplasm of urinary bladder, unspecified site (HCC) 02/19/2024 9:45 AM CORE STACKER Clinical Support [facility] Medical Office Building 2 Radiation Oncology [address] [place] [address] Malignant neoplasm of urinary bladder, unspecified site (HCC) (Primary Dx) 02/19/2024 9:30 AM CORE STACKER Treatment [facility] Medical Office Building 2 Radiation Oncology [address] [place] [address] 02/18/2024 Orders Only [facility] Oncology [address] [place] [phone] Venkat Vivar DO 02/18/2024 Orders Only RAD ONC TREATMENTS Miscellaneous, Not In File 02/18/2024 9:30 AM CORE STACKER Treatment [facility] Medical Office Building 2 Radiation Oncology [address] [place] [address] 02/17/2024 Orders Only RAD ONC TREATMENTS Miscellaneous, Not In File 02/17/2024 9:30 AM CORE STACKER Treatment [facility] Medical Office Building 2 Radiation Oncology [address] [place] [address] 02/16/2024 Orders Only RAD ONC TREATMENTS Miscellaneous, Not In File 02/16/2024 7:30 AM CORE STACKER Lab [facility] at [address] [address] Encounter for person encountering health services; Malignant neoplasm of urinary bladder, unspecified site (HCC) 02/16/2024 8:30 AM CORE STACKER Infusion [facility] at [address] [phone] Malignant neoplasm of urinary bladder, unspecified site (HCC) (Primary Dx); Encounter for person encountering health services 02/16/2024 8:00 AM CORE STACKER Office Visit [facility] Oncology [address] [place] [phone] Venkat Vivar DO Malignant neoplasm of urinary bladder, unspecified site (HCC) (Primary Dx); Encounter for person encountering health services 02/16/2024 11:30 AM CORE STACKER Treatment [facility] Medical Office Building 2 Radiation Oncology [address] [place] [address] 02/15/2024 Orders Only [facility] On[facility] [address] [place] [address] [address] [place] [phone] Venkat Vivar, DO 02/13/[address] [facility] Office Building 2 Radiation Oncology [address] [place] [address] Richard Hargrove MD 02/13/2024 Orders Only RAD ONC TREATMENTS Miscellaneous, Not In File 02/13/2024 8:[address] [facility] Office [facility] 2 Radiation Oncology [address] [place] [address] 02/12/2024 Orders Only RAD ONC TREATMENTS Miscellaneous, Not In File 02/12/2024 Orders Only [facility] On[facility] [address] [place] [phone] Venkat Vivar, DO 02/12/2024 2:15 PM CORE STACKER [facility] at [address] [phone] Malignant neoplasm of urinary bladder, unspecified site (HCC) (Primary Dx); Encounter for person encountering health services 02/12/2024 1:15 PM CORE STACKER [facility] at [address] [address] Encounter for person encountering health services; Malignant neoplasm of urinary bladder, unspecified site (HCC) 02/12/2024 12:[address] [facility] Office [facility] 2 Radiation Oncology [address] [place] [address] 02/11/2024 Orders Only RAD ONC TREATMENTS Miscellaneous, Not In File 02/11/2024 8:30 AM CORE STACKER Treatment [facility] Office [facility] 2 Radiation Oncology [address] [place] [address] 02/10/2024 Orders Only RAD ONC TREATMENTS Miscellaneous, Not In File 02/10/2024 8:30 AM CORE STACKER Treatment [facility] Medical Office Building 2 Radiation Oncology [address] [place] [address] 02/09/2024 Orders Only RAD ONC TREATMENTS Miscellaneous, Not In File 02/09/2024 1:00 PM CORE STACKER Treatment [facility] Office Building 2 Radiation Oncology [address] [place] [address] 02/09/2024 2:30 PM CORE STACKER Infusion [facility] at [address] [phone] Malignant neoplasm of urinary bladder, unspecified site (HCC) (Primary Dx); Encounter for person encountering health services 02/09/2024 1:15 PM CORE STACKER Lab [facility] at [address] [address] Encounter for person encountering health services; Malignant neoplasm of urinary bladder, unspecified site (HCC) 02/08/2024 Orders Only [facility] Oncology [address] [place] [address] [place] [phone] Venkat Vivar DO 02/06/2024 OTV [facility] Office Building 2 Radiation Oncology [address] [place] [address] Richard Hargrove MD 02/06/2024 Orders Only RAD ONC TREATMENTS Miscellaneous, Not In File 02/06/2024 9:30 AM CORE STACKER Treatment [facility] Office Building 2 Radiation Oncology [address] [place] [address] 02/05/2024 Orders Only RAD ONC TREATMENTS Miscellaneous, Not In File 02/05/2024 12:45 PM CORE STACKER Treatment [facility] Office Building 2 Radiation Oncology [address] [place] [address] 02/05/2024 2:00 PM CORE STACKER Infusion [facility] at [address] [place] [phone] Malignant neoplasm of urinary bladder, unspecified site (HCC) (Primary Dx); Encounter for person encountering health services 02/05/2024 1:15 PM CORE STACKER [facility] at [address] [address] Encounter for person encountering health services; Malignant neoplasm of urinary bladder, unspecified site (HCC) 02/04/2024 Orders Only [facility] On[facility] [address] [place] [phone] Venkat Vivar DO Encounter for person encountering health services (Primary Dx); Malignant neoplasm of urinary bladder, unspecified site (HCC) 02/04/2024 Orders Only RAD ONC TREATMENTS Miscellaneous, Not In File 02/04/2024 1:45 PM CORE STACKER Treatment [facility] Office Building 2 Radiation Oncology [address] [place] [address] 02/03/2024 Orders Only RAD ONC TREATMENTS Miscellaneous, Not In File 02/03/2024 8:15 AM CORE STACKER Treatment [facility] Office Building 2 Radiation Oncology [address] [place] [address] 2024 Orders Only RAD ONC TREATMENTS Miscellaneous, Not In File 2024 Orders Only [facility] Oncology [address] [place] [phone] Venkat Vivar DO 2024 11:15 AM CORE STACKER Treatment [facility] Office Building 2 Radiation Oncology [address] [place] [address] Richard Hargrove MD 2024 11:20 AM CORE STACKER Treatment [facility] Office Building 2 Radiation Oncology [address] [place] [address] Richard Hargrove MD 2024 1:00 PM CORE STACKER Infusion [facility] at [address] [phone] Malignant neoplasm of urinary bladder, unspecified site (HCC) (Primary Dx); Encounter for person encountering health services 2024 12:15 PM CORE STACKER Lab [facility] at [address] [address] Encounter for person encountering health services; Malignant neoplasm of urinary bladder, unspecified site (HCC) 01/30/2024 7:55 PM CDT Treatment [facility] Medical Office Building 2 Radiation Oncology [address] [place] [address] 01/23/2024 Orders Only [facility] Oncology [address] [place] [address] [address] [place] [phone] Venkat Vivar DO Encounter for person encountering health services (Primary Dx); Malignant neoplasm of urinary bladder, unspecified site (HCC) 01/22/2024 1:30 PM CDT Treatment [facility] Medical Office Building 2 Radiation Oncology [address] [place] [phone] Richard Hargrove MD 01/22/2024 1:00 PM CDT Consult [facility] Medical Office Building 2 Radiation Oncology [address] [place] [address] Richard Hargrove MD Malignant neoplasm of urinary bladder, unspecified site (HCC) from Last 3 Months Allergies No known active allergies Medications tamsulosin [...] for person encountering health service s 01/05/2024 Social History Tobacco Use Types Packs/Day Years [...] on file Legal Sex Male 2:03 AM CORE STACKER Gender Identity Not on file Sexual Orientation Not on file Occupation Industry Job Start Date Job End Date Retired Not on file Not on file Not on file Last Filed Vital Signs Vital Sign Reading Time Taken Comments Blood Pressure 118/75 03/01/2024 11:02 AM CORE STACKER Pulse 60 03/01/2024 11:02 AM CORE STACKER Temperature 36.8 ??C (98.2 ??F) 03/01/2024 11:[address] Respiratory Rate 18 03/01/2024 11:02 AM CORE STACKER Oxygen Saturation 97% 03/01/2024 11:02 AM CORE STACKER Inhaled Oxygen Concentration - - Weight 87.3 kg (192 lb 6.4 oz) 03/01/2024 11:02 AM CORE STACKER no shoes Height 185.4 cm (6' 1 ) 02/25/2024 12:13 AM CORE STACKER Body Mass Index 25.38 02/25/2024 12:13 AM CORE STACKER Plan of Treatment Not on file Procedures Procedure Name Priority Date/Time Associated Diagnosis Comments RAD ONC ARIA COURSE SUMMARY 03/01/2024 4:28 PM CORE STACKER EGFR Routine 03/01/2024 10:46 AM CORE STACKER Malignant neoplasm of urinary bladder, unspecified site (HCC) DIFFERENTIAL AUTO Routine 03/01/2024 10: 46 AM CORE STACKER Malignant neoplasm of urinary bladder, unspecified site (HCC) CBC WITH AUTO DIFFERENTIAL Routine 03/01/2024 10:46 AM CORE STACKER Malignant neoplasm of urinary bladder, unspecified site (HCC) COMPREHENSIVE METABOLIC PANEL Routine 03/01/2024 10:46 AM CORE STACKER Malignant neoplasm of urinary bladder, unspecified site (HCC) RAD ONC ARIA SESSION SUMMARY 03/01/2024 9:55 AM CORE STACKER RAD ONC ARIA SESSION SUMMARY 02/25/2024 9:[address] ABDOMEN PELVIS W CONTRAST ED 02/25/2024 1:24 AM CORE STACKER EGFR STAT 02/25/2024 12:21 AM CORE STACKER DIFFERENTIAL AUTO STAT 02/25/2024 12: 21 AM CORE STACKER LIPASE STAT 02/25/2024 12:21 AM CORE STACKER COMPREHENSIVE METABOLIC PANEL STAT 02/25/2024 12:21 AM CORE STACKER CBC WITH AUTO DIFFERENTIAL STAT 02/25/2024 12:21 AM CORE STACKER RAD ONC ARIA SESSION SUMMARY 02/24/2024 9:44 AM CORE STACKER EGFR Routine 02/23/2024 11:02 AM CORE STACKER Encounter for person encountering health services Malignant neoplasm of urinary bladder, unspecified site (HCC) DIFFERENTIAL AUTO Routine 02/23/2024 11: 02 AM CORE STACKER Encounter for person encountering health services Malignant neoplasm of urinary bladder, unspecified site (HCC) COMPREHENSIVE METABOLIC PANEL Routine 02/23/2024 11:02 AM CORE STACKER Encounter for person encountering health services Malignant neoplasm of urinary bladder, unspecified site (HCC) CBC WITH AUTO DIFFERENTIAL Routine 02/23/2024 11:02 AM CORE STACKER Encounter for person encountering health services Malignant neoplasm of urinary bladder, unspecified site (HCC) RAD ONC ARIA SESSION SUMMARY 02/23/2024 9:45 AM CORE STACKER RAD ONC ARIA SESSION SUMMARY 02/22/2024 9:35 AM CORE STACKER RAD ONC ARIA SESSION SUMMARY 02/20/2024 9:41 AM CORE STACKER EGFR Routine 02/19/2024 11:23 AM CORE STACKER Encounter for person encountering health services Malignant neoplasm of urinary bladder, unspecified site (HCC) DIFFERENTIAL AUTO Routine 02/19/2024 11: 23 AM CORE STACKER Encounter for person encountering health services Malignant neoplasm of urinary bladder, unspecified site (HCC) COMPREHENSIVE METABOLIC PANEL Routine 02/19/2024 11:23 AM CORE STACKER Encounter for person encountering health services Malignant neoplasm of urinary bladder, unspecified site (HCC) CBC WITH AUTO DIFFERENTIAL Routine 02/19/2024 11:23 AM CORE STACKER Encounter for person encountering health services Malignant neoplasm of urinary bladder, unspecified site (HCC) RAD ONC ARIA SESSION SUMMARY 02/19/2024 9:52 AM CORE STACKER RAD ONC ARIA SESSION SUMMARY 02/18/2024 9:43 AM CORE STACKER RAD ONC ARIA SESSION SUMMARY 02/17/2024 9:40 AM CORE STACKER RAD ONC ARIA SESSION SUMMARY 02/16/2024 11:16 AM CORE STACKER EGFR Routine 02/16/2024 7:36 AM CORE STACKER Encounter for person encountering health services Malignant neoplasm of urinary bladder, unspecified site (HCC) DIFFERENTIAL AUTO Routine 02/16/2024 7:3 6 AM CORE STACKER Encounter for person encountering health services Malignant neoplasm of urinary bladder, unspecified site (HCC) COMPREHENSIVE METABOLIC PANEL Routine 02/16/2024 7:36 AM CORE STACKER Encounter for person encountering health services Malignant neoplasm of urinary bladder, unspecified site (HCC) CBC WITH AUTO DIFFERENTIAL Routine 02/16/2024 7:36 AM CORE STACKER Encounter for person encountering health services Malignant neoplasm of urinary bladder, unspecified site (HCC) RAD ONC ARIA SESSION SUMMARY 02/13/2024 8:43 AM CORE STACKER EGFR Routine 02/12/2024 1:17 PM CORE STACKER Encounter for person encountering health services Malignant neoplasm of urinary bladder, unspecified site (HCC) DIFFERENTIAL AUTO Routine 02/12/2024 1:1 7 PM CORE STACKER Encounter for person encountering health services Malignant neoplasm of urinary bladder, unspecified site (HCC) COMPREHENSIVE METABOLIC PANEL Routine 02/12/2024 1:17 PM CORE STACKER Encounter for person encountering health services Malignant neoplasm of urinary bladder, unspecified site (HCC) CBC WITH AUTO DIFFERENTIAL Routine 02/12/2024 1:17 PM CORE STACKER Encounter for person encountering health services Malignant neoplasm of urinary bladder, unspecified site (HCC) RAD ONC ARIA SESSION SUMMARY 02/12/2024 1:05 PM CORE STACKER RAD ONC ARIA SESSION SUMMARY 02/11/2024 8:47 AM CORE STACKER RAD ONC ARIA SESSION SUMMARY 02/10/2024 8:44 AM CORE STACKER EGFR Routine 02/09/2024 1:26 PM CORE STACKER Encounter for person encountering health services Malignant neoplasm of urinary bladder, unspecified site (HCC) DIFFERENTIAL AUTO Routine 02/09/2024 1:2 6 PM CORE STACKER Encounter for person encountering health services Malignant neoplasm of urinary bladder, unspecified site (HCC) COMPREHENSIVE METABOLIC PANEL Routine 02/09/2024 1:26 PM CORE STACKER Encounter for person encountering health services Malignant neoplasm of urinary bladder, unspecified site (HCC) CBC WITH AUTO DIFFERENTIAL Routine 02/09/2024 1:26 PM CORE STACKER Encounter for person encountering health services Malignant neoplasm of urinary bladder, unspecified site (HCC) RAD ONC ARIA SESSION SUMMARY 02/09/2024 1:16 PM CORE STACKER RAD ONC ARIA SESSION SUMMARY 02/06/2024 9:41 AM CORE STACKER EGFR Routine 02/05/2024 1:18 PM CORE STACKER Encounter for person encountering health services Malignant neoplasm of urinary bladder, unspecified site (HCC) DIFFERENTIAL AUTO Routine 02/05/2024 1:1 8 PM CORE STACKER Encounter for person encountering health services Malignant neoplasm of urinary bladder, unspecified site (HCC) COMPREHENSIVE METABOLIC PANEL Routine 02/05/2024 1:18 PM CORE STACKER Encounter for person encountering health services Malignant neoplasm of urinary bladder, unspecified site (HCC) CBC WITH AUTO DIFFERENTIAL Routine 02/05/2024 1:18 PM CORE STACKER Encounter for person encountering health services Malignant neoplasm of urinary bladder, unspecified site (HCC) RAD ONC ARIA SESSION SUMMARY 02/05/2024 12:55 PM CORE STACKER RAD ONC ARIA SESSION SUMMARY 02/04/2024 1:54 PM CORE STACKER RAD ONC ARIA SESSION SUMMARY 02/03/2024 8:21 AM CORE STACKER EGFR Routine 2024 12:47 PM CORE STACKER Encounter for person encountering health services Malignant neoplasm of urinary bladder, unspecified site (HCC) DIFFERENTIAL AUTO Routine 2024 12: 47 PM CORE STACKER Encounter for person encountering health services Malignant neoplasm of urinary bladder, unspecified site (HCC) COMPREHENSIVE METABOLIC PANEL Routine 2024 12:47 PM CORE STACKER Encounter for person encountering health services Malignant neoplasm of urinary bladder, unspecified site (HCC) CBC WITH AUTO DIFFERENTIAL Routine 2024 12:47 PM CORE STACKER Encounter for person encountering health services Malignant neoplasm of urinary bladder, unspecified site (HCC) RAD ONC ARIA SESSION SUMMARY 2024 11:28 AM CORE STACKER from Last 3 Months Results * RAD ONC ARIA COURSE SUMMARY (03/01/2024 4:28 PM CORE STACKER) Course Name [email or web address]_ 2023 ARIA Course Plan Date 01/22/2024 3:44 PM ARIA Elapsed Days 28 ARIA Treatment Start Date 2024 ARIA Treatment Site BLADDER ARIA Dose Given To Date (cGy) 5,500 ARIA Session Dosage Given (cGy) 0 ARIA Plan ID BLADDER ARIA Fractions Treated 20 ARIA Prescribed Dose Per Fraction (cGy) 275 ARIA Prescribed Total Dose (cGy) 5,500 ARIA 03/01/2024 4:28 PM CORE STACKER us Not In File Miscellaneous RADIATION ONCOLOGY ORD ERABLES Final Result ARIGeetha * eGFR (03/01/2024 10:46 AM CORE STACKER) eGFR >90 >=60 mL/min/1. 73 m2 Comment: [...] was last reviewed 2021. Testing performed by: [facility], [address] [place] [address], [place]., [address] Blood 03/01/2024 10:4 6 AM CORE STACKER 03/01/2024 10:50 AM CORE STACKER us Venkat Vivar DO LAB BLOOD ORDERABLES Final R esult JAIME [address] [facility] Department of Laboratories [place], [place] [id number] * (ABNORMAL) Differential, auto (03/01/2024 10:46 AM CORE STACKER) Neutrophil abs 5.6 1.5 - 6.5 K/cumm Comment:Testing performed by : [address] [address] Imm gran abs 0.1 0.0 - 0.1 K/cumm JAIME Comment:Testing performed by : [address] [address] Lymphocyte abs 0.6(L) 0.8 - 3.3 K/cumm JAIME Comment:Testing performed by : [address] [address] Monocyte abs 1.2(H) 0.2 - 0.8 K/cumm JAIME Comment:Testing performed by : [address] [address] Eosinophil abs 0.1 0.0 - 0.5 K/cumm JAIME Comment:Testing performed by : [address] [address] Basophil abs 0.0 0.0 - 0.1 K/cumm JAIME Comment:Testing performed by : [address] [address] Neutrophil pct 73.8 % JAIME Comment: Interpretive Data Percent cell count reference ranges are not reported, since discordance with absolute values may lead to misinterpretation of CBC data. Current Interpretive Data was last revised on 2017. Testing performed by: [address] [address] Imm gran pct 1.1 % JAIME Comment: Interpretive Data Percent cell count reference ranges are not reported, since discordance with absolute values may lead to misinterpretation of CBC data. Current Interpretive Data was last revised on 2017. Testing performed by: [address] [address] Lymphocyte pct 7.5 % JAIME Comment: Interpretive Data Percent cell count reference ranges are not reported, since discordance with absolute values may lead to misinterpretation of CBC data. Current Interpretive Data was last revised on 2017. Testing performed by: [address] [address] Monocyte pct 16.1 % JAIME Comment: Interpretive Data Percent cell count reference ranges are not reported, since discordance with absolute values may lead to misinterpretation of CBC data. Current Interpretive Data was last revised on 2017. Testing performed by: [address] [address] Eosinophil pct 1.2 % JAIME Comment: Interpretive Data Percent cell count reference ranges are not reported, since discordance with absolute values may lead to misinterpretation of CBC data. Current Interpretive Data was last revised on 2017. Testing performed by: [address] [address] Basophil pct 0.3 % JAIME Comment: Interpretive Data Percent cell count reference ranges are not reported, since discordance with absolute values may lead to misinterpretation of CBC data. Current Interpretive Data was last revised on 2017. Testing performed by: [address] [address] Blood 03/01/2024 10:4 6 AM CORE STACKER 03/01/2024 10:50 AM CORE STACKER Venkat Vivar DO LAB BLOOD ORDERABLES Final R esult JAIME [address] [facility] [place] [address] * (ABNORMAL) CBC with auto differential (03/01/2024 10:46 AM CORE STACKER) Pathologist [facility] WBC 7.6 3.8 - 9.9 K/cumm Comment:Testing performed by : [address] [address] Hgb 10.8(L) 13.0 - 17.5 g/dL JAIME Comment:Testing performed by : [address] [address] Hct 31.6(L) 38.9 - 50.3 % JAIME Comment:Testing performed by : [address] [address] Plt 267 150 - 400 K/cumm JAIME Comment:Testing performed by : [address] [address] MPV 8.6(L) 9.1 - 12.3 fL JAIME Comment:Testing performed by : [address], [address] RBC 3.23(L) 4.30 - 5.80 M/cumm JAIME Comment:Testing performed by : [address] [address] MCV 97.8(H) 81.3 - 96.4 fL JAIME Comment:Testing performed by : [address] [address] MCH 33.4(H) 27.1 - 33.3 pg JAIME Comment:Testing performed by : [address] [address] MCHC 34.2 32.3 - 35.7 g/dL JAIME Comment:Testing performed by : [address] [address] RDW CV 16.7(H) 11.1 - 14.9 % JAIME Comment:Testing performed by : [address], [address] RDW SD 54.2(H) 35.7 - 48.1 fL JAIME Comment:Testing performed by : [address], [address] NRBC abs 0.00 0.00 - 0.01 K/cumm JAIME Comment:Testing performed by : [address] [address] Blood 03/01/2024 10:4 6 AM CORE STACKER 03/01/2024 10:50 AM CORE STACKER us Venkat Vivar DO LAB BLOOD ORDERABLES Final R esult JAIME [address] [facility] [place] [address] * Comprehensive metabolic panel (03/01/2024 10:46 AM CORE STACKER) Sodium 138 135 - 145 mmol/L Comment:Testing performed by : [address] [address] Potassium, pl 3.8 3.3 - 4.9 mmol/L JAIME Comment:Testing performed by : [address] [address] Chloride 102 97 - 110 mmol/L JAIME Comment:Testing performed by : [address] [address] CO2 26 22 - 32 mmol/L JAIME Comment:Testing performed by : [address] [address] Anion gap 10 2 - 15 mmol/L JAIME Comment:Testing performed by : [address] [address] BUN 17 6 - 25 mg/dL JAIME Comment:Testing performed by : [address] [address] Creatinine 0.80 0.80 - 1.30 mg/dL JAIME Comment:Testing performed by : [address] [address] Glucose 119 70 - 199 mg/dL JAIME [...] was last revised 2022. Testing performed by: [address] [place] [address] Calcium 9.1 8.5 - 10.3 mg/dL JAIME Comment:Testing performed by : [address] [address] Bilirubin, total 0.7 0.1 - 1.2 mg/dL JAIME Comment:Testing performed by : [address] [address] Protein, pl 7.3 6.5 - 8.5 g/dL JAIME Comment:Testing performed by : [address] [address] Albumin 3.9 3.5 - 5.0 g/dL JAIME Comment:Testing performed by : [address] [address] Alk phos 76 40 - 130 Units/L JAIME Comment:Testing performed by : [address], [address] ALT 24 7 - 55 Units/L JAIME Comment:Testing performed by : [address] [address] AST 17 10 - 50 Units/L JAIME Comment:Testing performed by : [address] [address] Blood 03/01/2024 10:4 6 AM CORE STACKER 03/01/2024 10:50 AM CORE STACKER Venkat Vivar DO LAB BLOOD ORDERABLES Final R esult JAIME [address] [facility] [place] [address] * RAD ONC ARIA SESSION SUMMARY (03/01/2024 9:55 AM CORE STACKER) Course Name C1_BLADDER_ 2023 ARIA Course Plan Date 01/22/2024 3:44 PM ARIA Elapsed Days 28 ARIA Treatment Start Date 2024 ARIA Treatment Site BLADDER ARIA Dose Given To Date (cGy) 5,500 ARIA Session Dosage Given (cGy) 275 ARIA Plan ID BLADDER ARIA Fractions Treated 20 ARIA Prescribed Dose Per Fraction (cGy) 275 ARIA Prescribed Total Dose (cGy) 5,500 ARIA 03/01/2024 9:55 AM CORE STACKER us Not In File Miscellaneous RADIATION ONCOLOGY ORD ERABLES Final Result Performing Organization Address [facility] Co de Phone Number LADONNA * RAD ONC ARIA SESSION SUMMARY (02/25/2024 9:45 AM CORE STACKER) Course Name C1_BLADDER_ 2023 ARIA Course Plan Date 01/22/2024 3:44 PM ARIA Elapsed Days 23 ARIA Treatment Start Date 2024 ARIA Treatment Site BLADDER ARIA Dose Given To Date (cGy) 5,225 ARIA Session Dosage Given (cGy) 275 ARIA Plan ID BLADDER ARIA Fractions Treated 19 ARIA Prescribed Dose Per Fraction (cGy) 275 ARIA Prescribed Total Dose (cGy) 5,500 ARIA 02/25/2024 9:45 AM CORE STACKER us Not In File Miscellaneous RADIATION ONCOLOGY ORD ERABLES Final Result Performing Organization Address [facility] de Phone Number LADONNA * CT Abdomen Pelvis W Contrast (02/25/2024 1:24 AM CORE STACKER) Anatomical Region Laterality Modality Body N/A Computed Tomogra phy 02/25/2024 1:32 AM CORE STACKER Narrative 02/25/2024 1:44 AM CORE STACKER EXAM DESCRIPTION: ?? CT ABDOMEN PELVIS W [...] AM T: ??02/25/2024 1:44 AM Report ID: [id number] Reading Location: ??[id number] Procedure Note Camilla Aguirre MD - 02/25/2024 [...] by Camilla Aguirre M.D. SN: Report ID: [id number] Reading Location: [place] [address] us Kwaku Roland Jr., MD IM CT PROCEDURES Final Result * eGFR (02/25/2024 12:21 AM CORE STACKER) eGFR >90 >=60 mL/min/1. 73 m2 Comment: [...] was last reviewed 2021. Testing performed by: [address] [address] Blood 02/25/2024 12:2 1 AM CORE STACKER 02/25/2024 12:31 AM CORE STACKER us Kwaku Roland Jr., MD LAB BLOOD ORDERABLES nal Result Performing Organization Address City/State/[facility] Co de Phone Number [facility] [address] [facility] Department [place] [address] * (ABNORMAL) Differential, auto (02/25/2024 12:21 AM CORE STACKER) Neutrophil abs 4.5 1.5 - 6.5 K/cumm Comment:Testing performed by : [address] [address] Imm gran abs 0.0 0.0 - 0.1 K/cumm JAIME PINEDA Comment:Testing performed by : [address] [address] Lymphocyte abs 0.5(L) 0.8 - 3.3 K/cumm CERYUSUF Comment:Testing performed by : [address] [address] Monocyte abs 0.5 0.2 - 0.8 K/cumm CERYUSUF Comment:Testing performed by : [address] [address] Eosinophil abs 0.1 0.0 - 0.5 K/cumm [facility] Comment:Testing performed by : [address], [place]., [address] Basophil abs 0.0 0.0 - 0.1 K/cumm JAIME Comment:Testing performed by : [address] [address] Neutrophil pct 80.8 % [facility] Comment: Interpretive Data Percent cell count reference ranges are not reported, since discordance with absolute values may lead to misinterpretation of CBC data. Current Interpretive Data was last revised on 2017. Testing performed by: [address] [address] Imm gran pct 0.7 % [facility] Comment: Interpretive Data Percent cell count reference ranges are not reported, since discordance with absolute values may lead to misinterpretation of CBC data. Current Interpretive Data was last revised on 2017. Testing performed by: [address] [address] Lymphocyte pct 8.5 % [facility] Comment: Interpretive Data Percent cell count reference ranges are not reported, since discordance with absolute values may lead to misinterpretation of CBC data. Current Interpretive Data was last revised on 2017. Testing performed by: [address] [address] Monocyte pct 8.3 % CERNER Comment: Interpretive Data Percent cell count reference ranges are not reported, since discordance with absolute values may lead to misinterpretation of CBC data. Current Interpretive Data was last revised on 2017. Testing performed by: [address] [address] Eosinophil pct 1.3 % CERYUSUF Comment: Interpretive Data Percent cell count reference ranges are not reported, since discordance with absolute values may lead to misinterpretation of CBC data. Current Interpretive Data was last revised on 2017. Testing performed by: [address] [address] Basophil pct 0.4 % JAIME PINEDA Comment: Interpretive Data Percent cell count reference ranges are not reported, since discordance with absolute values may lead to misinterpretation of CBC data. Current Interpretive Data was last revised on 2017. Testing performed by: [address] [address] Blood 02/25/2024 12:2 1 AM CORE STACKER 02/25/2024 12:31 AM CORE STACKER us Kwaku Roland Jr., MD LAB BLOOD ORDERABLES Fi nal Result JAIME [facility] Department [place] [address] * (ABNORMAL) CBC with auto differential (02/25/2024 12:21 AM CORE STACKER) WBC 5.5 3.8 - 9.9 K/cumm Comment:Testing performed by : [address] [address] Hgb 10.8(L) 13.0 - 17.5 g/dL JAIME PINEDA Comment:Testing performed by : [address] [address] Hct 30.5(L) 38.9 - 50.3 % JAIME PINEDA Comment:Testing performed by : [address] [address] Plt 164 150 - 400 K/cumm JAIME PINEDA Comment:Testing performed by : [address] [address] MPV 8.8(L) 9.1 - 12.3 fL JAIME PINEDA Comment:Testing performed by : [address] [address] RBC 3.15(L) 4.30 - 5.80 M/cumm JAIME PINEDA Comment:Testing performed by : [facility], [address] [place] [address]., [address] MCV 96.8(H) 81.3 - 96.4 fL JAIME PINEDA Comment:Testing performed by : [address] [address] MCH 34.3(H) 27.1 - 33.3 pg JAIME PINEDA Comment:Testing performed by : [address] [address] MCHC 35.4 32.3 - 35.7 g/dL JAIME Comment:Testing performed by : [address] [address] RDW CV 15.7(H) 11.1 - 14.9 % JAIME Comment:Testing performed by : [address] [address] RDW SD 50.6(H) 35.7 - 48.1 fL JAIME Comment:Testing performed by : [address] [address] NRBC abs 0.00 0.00 - 0.01 K/cumm JAIME Comment:Testing performed by : [address] [address] Blood (Blood, Venous) 02/25/2024 12:21 AM CORE STACKER 02/25/2024 12:31 AM CORE STACKER Kwaku Roland Jr., MD LAB BLOOD ORDERABLES Fi nal Result JAIME [address] [facility] Department of Laboratories [place], [place] [id number] * Lipase (02/25/2024 12:21 AM CORE STACKER) Lipase 27 10 - 99 Units/L Comment:Testing performed by : [address] [address] Blood (Blood, Venous) 02/25/2024 12:21 AM CORE STACKER 02/25/2024 12:31 AM CORE STACKER us Kwaku Roland Jr., MD LAB BLOOD ORDERABLES Fi nal Result JAIME [address] [facility] Department [place] [address] * (ABNORMAL) Comprehensive metabolic panel (02/25/2024 12:21 AM CORE STACKER) Sodium 138 135 - 145 mmol/L Comment:Testing performed by : [address] [address] Potassium, pl 3.6 3.3 - 4.9 mmol/L JAIME Comment:Testing performed by : [address] [address] Chloride 103 97 - 110 mmol/L JAIME Comment:Testing performed by : [address] [address] CO2 23 22 - 32 mmol/L JAIME Comment:Testing performed by : [address] [address] Anion gap 12 2 - 15 mmol/L JAIME Comment:Testing performed by : [address] [address] BUN 12 6 - 25 mg/dL JAIME Comment:Testing performed by : [address] [address] Creatinine 0.70(L) 0.80 - 1.30 mg/dL JAIME Comment:Testing performed by : [address] [address] Glucose 130 70 - 199 mg/dL JAIME [...] was last revised 2022. Testing performed by: [facility], [address] [place] [address], [address] Calcium 9.2 8.5 - 10.3 mg/dL JAIME Comment:Testing performed by : [address] [address] Bilirubin, total 0.6 0.1 - 1.2 mg/dL JAIME Comment:Testing performed by : [address], [address] Protein, pl 7.3 6.5 - 8.5 g/dL JAIME Comment:Testing performed by : [address] [address] Albumin 3.8 3.5 - 5.0 g/dL JAIME Comment:Testing performed by : [address], [address] Alk phos 77 40 - 130 Units/L JAIME Comment:Testing performed by : [address], [address] ALT 21 7 - 55 Units/L JAIME Comment:Testing performed by : [address] [address] AST 17 10 - 50 Units/L JAIME Comment:Testing performed by : [address] [address] Blood 02/25/2024 12:2 1 AM CORE STACKER 02/25/2024 12:31 AM CORE STACKER us Kwaku Roland Jr., MD LAB BLOOD ORDERABLES nal Result JAIME [address] [facility] Department [place] [address] * RAD ONC ARIA SESSION SUMMARY (02/24/2024 9:44 AM CORE STACKER) Course Name C1_BLADDER_ 2023 ARIA Course Plan Date 01/22/2024 3:44 PM ARIA Elapsed Days 22 ARIA Treatment Start Date 2024 ARIA Treatment Site BLADDER ARIA Dose Given To Date (cGy) 4,950 ARIA Session Dosage Given (cGy) 275 ARIA Plan ID BLADDER ARIA Fractions Treated 18 ARIA Prescribed Dose Per Fraction (cGy) 275 ARIA Prescribed Total Dose (cGy) 5,500 ARIA 02/24/2024 9:44 AM CORE STACKER us Not In File Miscellaneous RADIATION ONCOLOGY ORD ERABLES Final Result ARIGeetha * eGFR (02/23/2024 11:02 AM CORE STACKER) eGFR 89 >=60 mL/min/1. 73 m2 Comment: [...] was last reviewed 2021. Testing performed by: [facility], [address] [place] [address], [place]., [address] Blood 02/23/2024 11:0 2 AM CORE STACKER 02/23/2024 11:04 AM CORE STACKER us Venkat Vivar DO LAB BLOOD ORDERABLES Final R esult JAIME [address] [facility] Department of Laboratories [place], [place] [id number] * (ABNORMAL) Differential, auto (02/23/2024 11:02 AM CORE STACKER) Neutrophil abs 3.9 1.5 - 6.5 K/cumm Comment:Testing performed by : [address] [address] Imm gran abs 0.0 0.0 - 0.1 K/cumm JAIME Comment:Testing performed by : [address] [address] Lymphocyte abs 0.5(L) 0.8 - 3.3 K/cumm JAIME Comment:Testing performed by : [address] [address] Monocyte abs 0.4 0.2 - 0.8 K/cumm JAIME Comment:Testing performed by : [address] [address] Eosinophil abs 0.1 0.0 - 0.5 K/cumm JAIME Comment:Testing performed by : [address] [address] Basophil abs 0.0 0.0 - 0.1 K/cumm JAIME Comment:Testing performed by : [address] [address] Neutrophil pct 78.5 % JAIME Comment: Interpretive Data Percent cell count reference ranges are not reported, since discordance with absolute values may lead to misinterpretation of CBC data. Current Interpretive Data was last revised on 2017. Testing performed by: [address] [address] Imm gran pct 0.6 % JAIME Comment: Interpretive Data Percent cell count reference ranges are not reported, since discordance with absolute values may lead to misinterpretation of CBC data. Current Interpretive Data was last revised on 2017. Testing performed by: [address] [address] Lymphocyte pct 10.4 % JAIME Comment: Interpretive Data Percent cell count reference ranges are not reported, since discordance with absolute values may lead to misinterpretation of CBC data. Current Interpretive Data was last revised on 2017. Testing performed by: [address] [address] Monocyte pct 7.5 % JAIME Comment: Interpretive Data Percent cell count reference ranges are not reported, since discordance with absolute values may lead to misinterpretation of CBC data. Current Interpretive Data was last revised on 2017. Testing performed by: [address] [address] Eosinophil pct 2.6 % JAIME Comment: Interpretive Data Percent cell count reference ranges are not reported, since discordance with absolute values may lead to misinterpretation of CBC data. Current Interpretive Data was last revised on 2017. Testing performed by: [address] [address] Basophil pct 0.4 % JAIME Comment: Interpretive Data Percent cell count reference ranges are not reported, since discordance with absolute values may lead to misinterpretation of CBC data. Current Interpretive Data was last revised on 2017. Testing performed by: [address] [address] Blood 02/23/2024 11:0 2 AM CORE STACKER 02/23/2024 11:04 AM CORE STACKER Venkat Vivar DO LAB BLOOD ORDERABLES Final R esult JAIME [address] [facility] [place] [address] * (ABNORMAL) CBC with auto differential (02/23/2024 11:02 AM CORE STACKER) WBC 4.9 3.8 - 9.9 K/cumm Comment:Testing performed by : [address] [address] Hgb 10.6(L) 13.0 - 17.5 g/dL JAIME Comment:Testing performed by : [address] [address] Hct 30.6(L) 38.9 - 50.3 % JAIME Comment:Testing performed by : [address] [address] Plt 146(L) 150 - 400 K/cumm JAIME Comment:Testing performed by : [address] [address] MPV 8.6(L) 9.1 - 12.3 fL JAIME Comment:Testing performed by : [address], [address] RBC 3.18(L) 4.30 - 5.80 M/cumm JAIME Comment:Testing performed by : [address], [address] MCV 96.2 81.3 - 96.4 fL JAIME Comment:Testing performed by : [address] [address] MCH 33.3 27.1 - 33.3 pg JAIME Comment:Testing performed by : [address] [address] MCHC 34.6 32.3 - 35.7 g/dL JAIME Comment:Testing performed by : [address] [address] RDW CV 15.0(H) 11.1 - 14.9 % JAIME Comment:Testing performed by : [address], [address] RDW SD 49.3(H) 35.7 - 48.1 fL JAIME Comment:Testing performed by : [address] [address] NRBC abs 0.00 0.00 - 0.01 K/cumm JAIME Comment:Testing performed by : [address] [address] Blood 02/23/2024 11:0 2 AM CORE STACKER 02/23/2024 11:04 AM CORE STACKER Venkat Vivar DO LAB BLOOD ORDERABLES Final R esult JAIME [address] [facility] Department [place] [address] * Comprehensive metabolic panel (02/23/2024 11:02 AM CORE STACKER) Sodium 141 135 - 145 mmol/L Comment:Testing performed by : [address] [address] Potassium, pl 4.1 3.3 - 4.9 mmol/L JAIME Comment:Testing performed by : [address] [address] Chloride 104 97 - 110 mmol/L JAIME Comment:Testing performed by : [address] [address] CO2 27 22 - 32 mmol/L JAIME Comment:Testing performed by : [address] [address] Anion gap 10 2 - 15 mmol/L JAIME Comment:Testing performed by : [address] [address] BUN 17 6 - 25 mg/dL JAIME Comment:Testing performed by : [address] [address] Creatinine 0.90 0.80 - 1.30 mg/dL JAIME Comment:Testing performed by : [address] [address] Glucose 115 70 - 199 mg/dL JAIME Comment: Interpretive [...] was last revised 2022. Testing performed by: [address] [address] Calcium 9.0 8.5 - 10.3 mg/dL JAIME Comment:Testing performed by : [address] [address] Bilirubin, total 0.5 0.1 - 1.2 mg/dL JAIME Comment:Testing performed by : [address] [address] Protein, pl 7.1 6.5 - 8.5 g/dL JAIME Comment:Testing performed by : [address], [place]., [address] Albumin 3.8 3.5 - 5.0 g/dL JAIME Comment:Testing performed by : [address] [address] Alk phos 75 40 - 130 Units/L JAIME Comment:Testing performed by : [address] [address] ALT 19 7 - 55 Units/L JAIME Comment:Testing performed by : [address] [address] AST 17 10 - 50 Units/L JAIME Comment:Testing performed by : [address] [address] Blood 02/23/2024 11:0 2 AM CORE STACKER 02/23/2024 11:04 AM CORE STACKER Venkat Vivar DO LAB BLOOD ORDERABLES Final R esult JAIME [address] [facility] [place] [address] * RAD ONC ARIA SESSION SUMMARY (02/23/2024 9:45 AM CORE STACKER) Course Name C1_BLADDER_ 2023 ARIA Course Plan Date 01/22/2024 3:44 PM ARIA Elapsed Days 21 ARIA Treatment Start Date 2024 ARIA Treatment Site BLADDER ARIA Dose Given To Date (cGy) 4,675 ARIA Session Dosage Given (cGy) 275 ARIA Plan ID BLADDER ARIA Fractions Treated 17 ARIA Prescribed Dose Per Fraction (cGy) 275 ARIA Prescribed Total Dose (cGy) 5,500 ARIA 02/23/2024 9:45 AM CORE STACKER us Not In File Miscellaneous RADIATION ONCOLOGY ORD ERABLES Final Result ARIA * RAD ONC ARIA SESSION SUMMARY (02/22/2024 9:35 AM CORE STACKER) Course Name C1_BLADDER_ 2023 ARIA Course Plan Date 01/22/2024 3:44 PM ARIA Elapsed Days 20 ARIA Treatment Start Date 2024 ARIA Treatment Site BLADDER ARIA Dose Given To Date (cGy) 4,400 ARIA Session Dosage Given (cGy) 275 ARIA Plan ID BLADDER ARIA Fractions Treated 16 ARIA Prescribed Dose Per Fraction (cGy) 275 ARIA Prescribed Total Dose (cGy) 5,500 ARIA 02/22/2024 9:35 AM CORE STACKER us Not In File Miscellaneous RADIATION ONCOLOGY ORD ERABLES Final Result Performing Organization Address [facility] Co de Phone Number ARIA * RAD ONC ARIA SESSION SUMMARY (02/20/2024 9:41 AM CORE STACKER) Course Name C1_BLADDER_ 2023 ARIA Course Plan Date 01/22/2024 3:44 PM ARIA Elapsed Days 18 ARIA Treatment Start Date 2024 ARIA Treatment Site BLADDER ARIA Dose Given To Date (cGy) 4,125 ARIA Session Dosage Given (cGy) 275 ARIA Plan ID BLADDER ARIA Fractions Treated 15 ARIA Prescribed Dose Per Fraction (cGy) 275 ARIA Prescribed Total Dose (cGy) 5,500 ARIA 02/20/2024 9:41 AM CORE STACKER us Not In File Miscellaneous RADIATION ONCOLOGY ORD ERABLES Final Result ARIA * eGFR (02/19/2024 11:23 AM CORE STACKER) eGFR 89 >=60 mL/min/1. 73 m2 Comment: [...] was last reviewed 2021. Testing performed by: [facility], [address] [place] [address]., [address] Blood 02/19/2024 11:2 3 AM CORE STACKER 02/19/2024 11:26 AM CORE STACKER us Venkat Vivar DO LAB BLOOD ORDERABLES Final R esult JAIME [address] [facility] Department [place] [address] * (ABNORMAL) Differential, auto (02/19/2024 11:23 AM CORE STACKER) Neutrophil abs 3.9 1.5 - 6.5 K/cumm Comment:Testing performed by : [address] [address] Imm gran abs 0.0 0.0 - 0.1 K/cumm [facility] Comment:Testing performed by : [address] [address] Lymphocyte abs 0.6(L) 0.8 - 3.3 K/cumm BANNERNER Comment:Testing performed by : [address] [address] Monocyte abs 0.3 0.2 - 0.8 K/cumm [facility] Comment:Testing performed by : [address], [place]., [address] Eosinophil abs 0.2 0.0 - 0.5 K/cumm [facility] Comment:Testing performed by : [address] [address] Basophil abs 0.0 0.0 - 0.1 K/cumm [facility] Comment:Testing performed by : [address] [address] Neutrophil pct 78.4 % [facility] Comment: Interpretive Data Percent cell count reference ranges are not reported, since discordance with absolute values may lead to misinterpretation of CBC data. Current Interpretive Data was last revised on 2017. Testing performed by: [address] [address] Imm gran pct 0.4 % [facility] Comment: Interpretive Data Percent cell count reference ranges are not reported, since discordance with absolute values may lead to misinterpretation of CBC data. Current Interpretive Data was last revised on 2017. Testing performed by: [address] [address] Lymphocyte pct 11.4 % CERNER Comment: Interpretive Data Percent cell count reference ranges are not reported, since discordance with absolute values may lead to misinterpretation of CBC data. Current Interpretive Data was last revised on 2017. Testing performed by: [address] [address] Monocyte pct 6.2 % CERNER Comment: Interpretive Data Percent cell count reference ranges are not reported, since discordance with absolute values may lead to misinterpretation of CBC data. Current Interpretive Data was last revised on 2017. Testing performed by: [address] [address] Eosinophil pct 3.2 % JAIME Comment: Interpretive Data Percent cell count reference ranges are not reported, since discordance with absolute values may lead to misinterpretation of CBC data. Current Interpretive Data was last revised on 2017. Testing performed by: [address] [address] Basophil pct 0.4 % JAIME Comment: Interpretive Data Percent cell count reference ranges are not reported, since discordance with absolute values may lead to misinterpretation of CBC data. Current Interpretive Data was last revised on 2017. Testing performed by: [address] [address] Blood 02/19/2024 11:2 3 AM CORE STACKER 02/19/2024 11:26 AM CORE STACKER Venkat Vivar DO LAB BLOOD ORDERABLES Final R esult JAIME [facility] Department of Laboratories [place], [place] [id number] * (ABNORMAL) CBC with auto differential (02/19/2024 11:23 AM CORE STACKER) Pathologist [facility] WBC 5.0 3.8 - 9.9 K/cumm Comment:Testing performed by : [address] [address] Hgb 10.8(L) 13.0 - 17.5 g/dL JAIME PINEDA Comment:Testing performed by : [address] [address] Hct 31.2(L) 38.9 - 50.3 % JAIME PINEDA Comment:Testing performed by : [address] [address] Plt 88(L) 150 - 400 K/cumm JAIME PINEDA Comment:Testing performed by : [address] [address] MPV 9.0(L) 9.1 - 12.3 fL JAIME PINEDA Comment:Testing performed by : [address] [address] RBC 3.25(L) 4.30 - 5.80 M/cumm JAIME PINEDA Comment:Testing performed by : [address] [address] MCV 96.0 81.3 - 96.4 fL JAIME Comment:Testing performed by : [address] [address] MCH 33.2 27.1 - 33.3 pg JAIME Comment:Testing performed by : [address] [address] MCHC 34.6 32.3 - 35.7 g/dL JAIME Comment:Testing performed by : [address] [address] RDW CV 14.6 11.1 - 14.9 % JAIME Comment:Testing performed by : [address], [address] RDW SD 49.1(H) 35.7 - 48.1 fL JAIME Comment:Testing performed by : [address] [address] NRBC abs 0.00 0.00 - 0.01 K/cumm JAIME Comment:Testing performed by : [address] [address] Blood 02/19/2024 11:2 3 AM CORE STACKER 02/19/2024 11:26 AM CORE STACKER us Venkat Vivar DO LAB BLOOD ORDERABLES Final R esult JAIME [address] [facility] [place] [address] * Comprehensive metabolic panel (02/19/2024 11:23 AM CORE STACKER) Pathologist [facility] Sodium 141 135 - 145 mmol/L Comment:Testing performed by : [address] [address] Potassium, pl 3.9 3.3 - 4.9 mmol/L JAIME Comment:Testing performed by : [address], [place]., [address] Chloride 103 97 - 110 mmol/L JAIME Comment:Testing performed by : [address], [place]., [address] CO2 28 22 - 32 mmol/L JAIME Comment:Testing performed by : [address], [place]., [address] Anion gap 10 2 - 15 mmol/L JAIME Comment:Testing performed by : [address], [place]., [address] BUN 12 6 - 25 mg/dL JAIEM Comment:Testing performed by : [address], [place]., [address] Creatinine 0.90 0.80 - 1.30 mg/dL JAIME Comment:Testing performed by : [address], [place]., [address] Glucose 148 70 - 199 mg/dL JAIME [...] was last revised 2022. Testing performed by: [address] [address] Calcium 8.8 8.5 - 10.3 mg/dL JAIME Comment:Testing performed by : [address] [address] Bilirubin, total 0.6 0.1 - 1.2 mg/dL JAIME Comment:Testing performed by : [address], [place]., [address] Protein, pl 6.9 6.5 - 8.5 g/dL JAIME Comment:Testing performed by : [address], [facility], [place]., [address] Albumin 3.9 3.5 - 5.0 g/dL JAIME Comment:Testing performed by : [address] [address] Alk phos 74 40 - 130 Units/L JAIME Comment:Testing performed by : [address] [address] ALT 15 7 - 55 Units/L JAIME Comment:Testing performed by : [address] [address] AST 15 10 - 50 Units/L JAIME Comment:Testing performed by : [address], [address] Blood 02/19/2024 11:2 3 AM CORE STACKER 02/19/2024 11:26 AM CORE STACKER us Venkat Vivar DO LAB BLOOD ORDERABLES Final R esult JAIME [facility] Department of Laboratories [place], [place] [id number] * RAD ONC ARIA SESSION SUMMARY (02/19/2024 9:52 AM CORE STACKER) Course Name [id number] ARIA Course Plan Date 01/22/2024 3:44 PM ARIA Elapsed Days 17 ARIA Treatment Start Date 2024 ARIA Treatment Site BLADDER ARIA Dose Given To Date (cGy) 3,850 ARIA Session Dosage Given (cGy) 275 ARIA Plan ID BLADDER ARIA Fractions Treated 14 ARIA Prescribed Dose Per Fraction (cGy) 275 ARIA Prescribed Total Dose (cGy) 5,500 ARIA 02/19/2024 9:52 AM CORE STACKER us Not In File Miscellaneous RADIATION ONCOLOGY ORD ERABLES Final Result ARIA * RAD ONC ARIA SESSION SUMMARY (02/18/2024 9:43 AM CORE STACKER) Course Name C1_BLADDER_ 2023 ARIA Course Plan Date 01/22/2024 3:44 PM ARIA Elapsed Days 16 ARIA Treatment Start Date 2024 ARIA Treatment Site BLADDER ARIA Dose Given To Date (cGy) 3,575 ARIA Session Dosage Given (cGy) 275 ARIA Plan ID BLADDER ARIA Fractions Treated 13 ARIA Prescribed Dose Per Fraction (cGy) 275 ARIA Prescribed Total Dose (cGy) 5,500 ARIA 02/18/2024 9:43 AM CORE STACKER us Not In File Miscellaneous RADIATION ONCOLOGY ORD ERABLES Final Result ARIA * RAD ONC ARIA SESSION SUMMARY (02/17/2024 9:40 AM CORE STACKER) Course Name C1_BLADDER_ 2023 ARIA Course Plan Date 01/22/2024 3:44 PM ARIA Elapsed Days 15 ARIA Treatment Start Date 2024 ARIA Treatment Site BLADDER ARIA Dose Given To Date (cGy) 3,300 ARIA Session Dosage Given (cGy) 275 ARIA Plan ID BLADDER ARIA Fractions Treated 12 ARIA Prescribed Dose Per Fraction (cGy) 275 ARIA Prescribed Total Dose (cGy) 5,500 ARIA 02/17/2024 9:40 AM CORE STACKER us Not In File Miscellaneous RADIATION ONCOLOGY ORD ERABLES Final Result ARIA * RAD ONC ARIA SESSION SUMMARY (02/16/2024 11:16 AM CORE STACKER) Course Name C1_BLADDER_ 2023 ARIA Course Plan Date 01/22/2024 3:44 PM ARIA Elapsed Days 14 ARIA Treatment Start Date 2024 ARIA Treatment Site BLADDER ARIA Dose Given To Date (cGy) 3,025 ARIA Session Dosage Given (cGy) 275 ARIA Plan ID BLADDER ARIA Fractions Treated 11 ARIA Prescribed Dose Per Fraction (cGy) 275 ARIA Prescribed Total Dose (cGy) 5,500 ARIA 02/16/2024 11:1 6 AM CORE STACKER us Not In File Miscellaneous RADIATION ONCOLOGY ORD ERABLES Final Result [place] * eGFR (02/16/2024 7:36 AM CORE STACKER) eGFR 78 >=60 mL/min/1. 73 m2 Comment: [...] was last reviewed 2021. Testing performed by: [facility], [address] [place] [address], [place]., [address] Blood 02/16/2024 7:36 AM CORE STACKER 02/16/2024 7:42 AM CORE STACKER us Venkat Vivar DO LAB BLOOD ORDERABLES Final R esult JAIME [address] [facility] Department [place] [address] * Differential, auto (02/16/2024 7:36 AM CORE STACKER) Neutrophil abs 4.2 1.5 - 6.5 K/cumm Comment:Testing performed by : [address] [address] Imm gran abs 0.0 0.0 - 0.1 K/cumm [facility] Comment:Testing performed by : [address] [address] Lymphocyte abs 0.9 0.8 - 3.3 K/cumm [facility] Comment:Testing performed by : [address] [address] Monocyte abs 0.3 0.2 - 0.8 K/cumm [facility] Comment:Testing performed by : [address] [address] Eosinophil abs 0.2 0.0 - 0.5 K/cumm [facility] Comment:Testing performed by : [address] [address] Basophil abs 0.0 0.0 - 0.1 K/cumm [facility] Comment:Testing performed by : [address] [address] Neutrophil pct 75.3 % [facility] Comment: Interpretive Data Percent cell count reference ranges are not reported, since discordance with absolute values may lead to misinterpretation of CBC data. Current Interpretive Data was last revised on 2017. Testing performed by: [address] [address] Imm gran pct 0.4 % [facility] Comment: Interpretive Data Percent cell count reference ranges are not reported, since discordance with absolute values may lead to misinterpretation of CBC data. Current Interpretive Data was last revised on 2017. Testing performed by: [address] [address] Lymphocyte pct 16.0 % CERNER Comment: Interpretive Data Percent cell count reference ranges are not reported, since discordance with absolute values may lead to misinterpretation of CBC data. Current Interpretive Data was last revised on 2017. Testing performed by: [address] [address] Monocyte pct 5.2 % JAIME PINEDA Comment: Interpretive Data Percent cell count reference ranges are not reported, since discordance with absolute values may lead to misinterpretation of CBC data. Current Interpretive Data was last revised on 2017. Testing performed by: [address] [address] Eosinophil pct 2.7 % JAIME PINEDA Comment: Interpretive Data Percent cell count reference ranges are not reported, since discordance with absolute values may lead to misinterpretation of CBC data. Current Interpretive Data was last revised on 2017. Testing performed by: [address] [address] Basophil pct 0.4 % JAIME PINEDA Comment: Interpretive Data Percent cell count reference ranges are not reported, since discordance with absolute values may lead to misinterpretation of CBC data. Current Interpretive Data was last revised on 2017. Testing performed by: [address] [address] Blood 02/16/2024 7:36 AM CORE STACKER 02/16/2024 7:42 AM CORE STACKER Venkat Vivar DO LAB BLOOD ORDERABLES Final R esult JAIME [facility] Department [place] [address] * (ABNORMAL) CBC with auto differential (02/16/2024 7:36 AM CORE STACKER) WBC 5.6 3.8 - 9.9 K/cumm Comment:Testing performed by : [address] [address] Hgb 11.5(L) 13.0 - 17.5 g/dL JAIME PINEDA Comment:Testing performed by : [address] [address] Hct 33.3(L) 38.9 - 50.3 % JAIME PINEDA Comment:Testing performed by : [address] [address] Plt 97(L) 150 - 400 K/cumm JAIME Comment:Testing performed by : [address] [address] MPV 9.1 9.1 - 12.3 fL JAIME Comment:Testing performed by : [address] [address] RBC 3.48(L) 4.30 - 5.80 M/cumm JAIME Comment:Testing performed by : [address] [address] MCV 95.7 81.3 - 96.4 fL JAIME Comment:Testing performed by : [address] [address] MCH 33.0 27.1 - 33.3 pg JAIME Comment:Testing performed by : [address] [address] MCHC 34.5 32.3 - 35.7 g/dL JAIME Comment:Testing performed by : [address], [address] RDW CV 14.3 11.1 - 14.9 % JAIME Comment:Testing performed by : [address], [address] RDW SD 47.7 35.7 - 48.1 fL JAIME Comment:Testing performed by : [address] [address] NRBC abs 0.00 0.00 - 0.01 K/cumm JAIME Comment:Testing performed by : [address] [address] Blood 02/16/2024 7:36 AM CORE STACKER 02/16/2024 7:42 AM CORE STACKER Venkat Vivar DO LAB BLOOD ORDERABLES Final R esult GAGANYUSUF [address] [facility] Department of Laboratories [place], [place] [id number] * Comprehensive metabolic panel (02/16/2024 7:36 AM CORE STACKER) Sodium 142 135 - 145 mmol/L Comment:Testing performed by : [facility], [address] [place] [address], [place]., [address] Potassium, pl 4.2 3.3 - 4.9 mmol/L JAIME Comment:Testing performed by : [address], [place]., [address] Chloride 105 97 - 110 mmol/L JAIME Comment:Testing performed by : [address], [place]., [address] CO2 28 22 - 32 mmol/L JAIME Comment:Testing performed by : [address], [place]., [address] Anion gap 9 2 - 15 mmol/L JAIME Comment:Testing performed by : [address], [place]., [address] BUN 15 6 - 25 mg/dL JAIME Comment:Testing performed by : [address], [place]., [address] Creatinine 1.00 0.80 - 1.30 mg/dL JAIME Comment:Testing performed by : [address], [place]., [address] Glucose 111 70 - 199 mg/dL JAIME [...] was last revised 2022. Testing performed by: [address], [place]., [address] Calcium 8.9 8.5 - 10.3 mg/dL JAIME Comment:Testing performed by : [address], [place]., [address] Bilirubin, total 0.7 0.1 - 1.2 mg/dL JAIME Comment:Testing performed by : [address] [address] Protein, pl 7.2 6.5 - 8.5 g/dL JAIME Comment:Testing performed by : [address] [address] Albumin 3.9 3.5 - 5.0 g/dL JAIME Comment:Testing performed by : [address] [address] Alk phos 73 40 - 130 Units/L JAIME Comment:Testing performed by : [address] [address] ALT 16 7 - 55 Units/L AJIME Comment:Testing performed by : [address] [address] AST 16 10 - 50 Units/L JAIME Comment:Testing performed by : [address] [address] Blood 02/16/2024 7:36 AM CORE STACKER 02/16/2024 7:42 AM CORE STACKER us Venkat Vivar DO LAB BLOOD ORDERABLES Final R esult Performing Organization Address City/State/[facility] Co de Phone Number JAIME [address] [facility] [place] [address] * RAD ONC ARIA SESSION SUMMARY (02/13/2024 8:43 AM CORE STACKER) Course Name C1_BLADDER_ 2023 ARIA Course Plan Date 01/22/2024 3:44 PM ARIA Elapsed Days 11 ARIA Treatment Start Date 2024 ARIA Treatment Site BLADDER ARIA Dose Given To Date (cGy) 2,750 ARIA Session Dosage Given (cGy) 275 ARIA Plan ID BLADDER ARIA Fractions Treated 10 ARIA Prescribed Dose Per Fraction (cGy) 275 ARIA Prescribed Total Dose (cGy) 5,500 ARIA 02/13/2024 8:43 AM CORE STACKER us Not In File Miscellaneous RADIATION ONCOLOGY ORD ERABLES Final Result ARIA * eGFR (02/12/2024 1:17 PM CORE STACKER) Pathologist [facility] eGFR >90 >=60 mL/min/1. 73 m2 Comment: [...] was last reviewed 2021. Testing performed by: [facility], [address] [place] [address]., [address] Blood 02/12/2024 1:17 PM CORE STACKER 02/12/2024 1:24 PM CORE STACKER us Venkat Vivar DO LAB BLOOD ORDERABLES Final R esult JAIME [address] [facility] Department [place] [address] * Differential, auto (02/12/2024 1:17 PM CORE STACKER) Pathologist [facility] Neutrophil abs 3.9 1.5 - 6.5 K/cumm Comment:Testing performed by : [facility], [address] [place] [address], [place]., [address] Imm gran abs 0.0 0.0 - 0.1 K/cumm [facility] Comment:Testing performed by : [facility], [address] [place] [address], [place]., [address] Lymphocyte abs 1.1 0.8 - 3.3 K/cumm CERNER Comment:Testing performed by : [address], [place]., [address] Monocyte abs 0.3 0.2 - 0.8 K/cumm [facility] Comment:Testing performed by : [address], [place]., [address] Eosinophil abs 0.2 0.0 - 0.5 K/cumm [facility] Comment:Testing performed by : [address] [address] Basophil abs 0.0 0.0 - 0.1 K/cumm [facility] Comment:Testing performed by : [address] [address] Neutrophil pct 69.9 % [facility] Comment: Interpretive Data Percent cell count reference ranges are not reported, since discordance with absolute values may lead to misinterpretation of CBC data. Current Interpretive Data was last revised on 2017. Testing performed by: [address] [address] Imm gran pct 0.7 % [facility] Comment: Interpretive Data Percent cell count reference ranges are not reported, since discordance with absolute values may lead to misinterpretation of CBC data. Current Interpretive Data was last revised on 2017. Testing performed by: [address] [address] Lymphocyte pct 20.5 % CERNER Comment: Interpretive Data Percent cell count reference ranges are not reported, since discordance with absolute values may lead to misinterpretation of CBC data. Current Interpretive Data was last revised on 2017. Testing performed by: [address] [address] Monocyte pct 5.8 % CERNER Comment: Interpretive Data Percent cell count reference ranges are not reported, since discordance with absolute values may lead to misinterpretation of CBC data. Current Interpretive Data was last revised on 2017. Testing performed by: [address] [address] Eosinophil pct 2.7 % JAIME Comment: Interpretive Data Percent cell count reference ranges are not reported, since discordance with absolute values may lead to misinterpretation of CBC data. Current Interpretive Data was last revised on 2017. Testing performed by: [address] [address] Basophil pct 0.4 % JAIME Comment: Interpretive Data Percent cell count reference ranges are not reported, since discordance with absolute values may lead to misinterpretation of CBC data. Current Interpretive Data was last revised on 2017. Testing performed by: [address] [address] Blood 02/12/2024 1:17 PM CORE STACKER 02/12/2024 1:24 PM CORE STACKER us Venkat Vivar DO LAB BLOOD ORDERABLES Final R esult BANNERYUSUF [address] [facility] Department [place] [address] * (ABNORMAL) CBC with auto differential (02/12/2024 1:17 PM CORE STACKER) WBC 5.6 3.8 - 9.9 K/cumm Comment:Testing performed by : [address] [address] Hgb 11.8(L) 13.0 - 17.5 g/dL JAIME Comment:Testing performed by : [address] [address] Hct 34.3(L) 38.9 - 50.3 % JAIME Comment:Testing performed by : [address] [address] Plt 122(L) 150 - 400 K/cumm JAIME Comment:Testing performed by : [address] [address] MPV 8.9(L) 9.1 - 12.3 fL JAIME Comment:Testing performed by : [address] [address] RBC 3.60(L) 4.30 - 5.80 M/cumm JAIME PINEDA Comment:Testing performed by : [address] [address] MCV 95.3 81.3 - 96.4 fL JAIME Comment:Testing performed by : [address] [address] MCH 32.8 27.1 - 33.3 pg JAIME Comment:Testing performed by : [address] [address] MCHC 34.4 32.3 - 35.7 g/dL JAIME Comment:Testing performed by : [address] [address] RDW CV 14.1 11.1 - 14.9 % JAIME Comment:Testing performed by : [address] [address] RDW SD 48.1 35.7 - 48.1 fL JAIME Comment:Testing performed by : [address] [address] NRBC abs 0.00 0.00 - 0.01 K/cumm JAIME Comment:Testing performed by : [address] [address] Blood 02/12/2024 1:17 PM CORE STACKER 02/12/2024 1:24 PM CORE STACKER us Venkat Vivar DO LAB BLOOD ORDERABLES Final R esult JAIME [address] [facility] Department [place] [address] * Comprehensive metabolic panel (02/12/2024 1:17 PM CORE STACKER) [facility] Signature Sodium 138 135 - 145 mmol/L Comment:Testing performed by : [address] [address] Potassium, pl 4.6 3.3 - 4.9 mmol/L [facility] Comment:Testing performed by : [address], [place]., [address] Chloride 103 97 - 110 mmol/L JAIME Comment:Testing performed by : [address], [place]., [address] CO2 28 22 - 32 mmol/L JAIME Comment:Testing performed by : [address], [place]., [address] Anion gap 7 2 - 15 mmol/L [facility] Comment:Testing performed by : [address], [place]., [address] BUN 17 6 - 25 mg/dL [facility] Comment:Testing performed by : [address], [place]., [address] Creatinine 0.80 0.80 - 1.30 mg/dL [facility] Comment:Testing performed by : [address] [address] Glucose 98 70 - 199 mg/dL [facility] Comment: Interpretive Data Fasting glucose >/= 126 [...] was last revised 2022. Testing performed by: [address] [address] Calcium 8.9 8.5 - 10.3 mg/dL JAIME Comment:Testing performed by : [address] [address] Bilirubin, total 0.5 0.1 - 1.2 mg/dL JAIME Comment:Testing performed by : [address], [place]., [address] Protein, pl 7.0 6.5 - 8.5 g/dL JAIME Comment:Testing performed by : [facility], [address] [place] [address]., [address] Albumin 3.9 3.5 - 5.0 g/dL JAIME Comment:Testing performed by : [address], [address] Alk phos 69 40 - 130 Units/L JAIME Comment:Testing performed by : [address] [address] ALT 14 7 - 55 Units/L JAIME Comment:Testing performed by : [address] [address] AST 14 10 - 50 Units/L JAIME Comment:Testing performed by : [address], [address] Blood 02/12/2024 1:17 PM CORE STACKER 02/12/2024 1:24 PM CORE STACKER us Venkat Vivar DO LAB BLOOD ORDERABLES Final R esult [facility] [address] [facility] [place] [address] * RAD ONC ARIA SESSION SUMMARY (02/12/2024 1:05 PM CORE STACKER) Course Name C1_BLADDER_ 2023 ARIA Course Plan Date 01/22/2024 3:44 PM ARIA Elapsed Days 10 ARIA Treatment Start Date 2024 ARIA Treatment Site BLADDER ARIA Dose Given To Date (cGy) 2,475 ARIA Session Dosage Given (cGy) 275 ARIA Plan ID BLADDER ARIA Fractions Treated 9 ARIA Prescribed Dose Per Fraction (cGy) 275 ARIA Prescribed Total Dose (cGy) 5,500 ARIA 02/12/2024 1:05 PM CORE STACKER us Not In File Miscellaneous RADIATION ONCOLOGY ORD ERABLES Final Result ARIA * RAD ONC ARIA SESSION SUMMARY (02/11/2024 8:47 AM CORE STACKER) Course Name C1_BLADDER_ 2023 ARIA Course Plan Date 01/22/2024 3:44 PM ARIA Elapsed Days 9 ARIA Treatment Start Date 2024 ARIA Treatment Site BLADDER ARIA Dose Given To Date (cGy) 2,200 ARIA Session Dosage Given (cGy) 275 ARIA Plan ID BLADDER ARIA Fractions Treated 8 ARIA Prescribed Dose Per Fraction (cGy) 275 ARIA Prescribed Total Dose (cGy) 5,500 ARIA 02/11/2024 8:47 AM CORE STACKER us Not In File Miscellaneous RADIATION ONCOLOGY ORD ERABLES Final Result Performing Organization Address [facility] de Phone Number LADONNA * RAD ONC ARIA SESSION SUMMARY (02/10/2024 8:44 AM CORE STACKER) Course Name C1_BLADDER_ 2023 ARIA Course Plan Date 01/22/2024 3:44 PM ARIA Elapsed Days 8 ARIA Treatment Start Date 2024 ARIA Treatment Site BLADDER ARIA Dose Given To Date (cGy) 1,925 ARIA Session Dosage Given (cGy) 275 ARIA Plan ID BLADDER ARIA Fractions Treated 7 ARIA Prescribed Dose Per Fraction (cGy) 275 ARIA Prescribed Total Dose (cGy) 5,500 ARIA 02/10/2024 8:44 AM CORE STACKER us Not In File Miscellaneous RADIATION ONCOLOGY ORD ERABLES Final Result Performing Organization Address [facility] de Phone Number ARIA * eGFR (02/09/2024 1:26 PM CORE STACKER) eGFR >90 >=60 mL/min/1. 73 m2 Comment: [...] was last reviewed 2021. Testing performed by: [address] [address] Blood 02/09/2024 1:26 PM CORE STACKER 02/09/2024 1:33 PM CORE STACKER us Venkat Vivar DO LAB BLOOD ORDERABLES Final R esult JAIME PINEDA [address] [facility] [place] [address] * Differential, auto (02/09/2024 1:26 PM CORE STACKER) Neutrophil abs 3.2 1.5 - 6.5 K/cumm Comment:Testing performed by : [address] [address] Imm gran abs 0.0 0.0 - 0.1 K/cumm JAIME Comment:Testing performed by : [address] [address] Lymphocyte abs 1.1 0.8 - 3.3 K/cumm JAIME Comment:Testing performed by : [address] [address] Monocyte abs 0.3 0.2 - 0.8 K/cumm JAIME Comment:Testing performed by : [address] [address] Eosinophil abs 0.1 0.0 - 0.5 K/cumm JAIME Comment:Testing performed by : [address] [address] Basophil abs 0.0 0.0 - 0.1 K/cumm JAIME Comment:Testing performed by : [address] [address] Neutrophil pct 65.9 % BANNERYUSUF Comment: Interpretive Data Percent cell count reference ranges are not reported, since discordance with absolute values may lead to misinterpretation of CBC data. Current Interpretive Data was last revised on 2017. Testing performed by: [address] [address] Imm gran pct 0.6 % BANNERYUSUF Comment: Interpretive Data Percent cell count reference ranges are not reported, since discordance with absolute values may lead to misinterpretation of CBC data. Current Interpretive Data was last revised on 2017. Testing performed by: [address] [address] Lymphocyte pct 23.4 % BANNERYUSUF Comment: Interpretive Data Percent cell count reference ranges are not reported, since discordance with absolute values may lead to misinterpretation of CBC data. Current Interpretive Data was last revised on 2017. Testing performed by: [address] [address] Monocyte pct 7.0 % BANNERYUSUF Comment: Interpretive Data Percent cell count reference ranges are not reported, since discordance with absolute values may lead to misinterpretation of CBC data. Current Interpretive Data was last revised on 2017. Testing performed by: [address] [address] Eosinophil pct 2.7 % JAIME Comment: Interpretive Data Percent cell count reference ranges are not reported, since discordance with absolute values may lead to misinterpretation of CBC data. Current Interpretive Data was last revised on 2017. Testing performed by: [address] [address] Basophil pct 0.4 % JAIME Comment: Interpretive Data Percent cell count reference ranges are not reported, since discordance with absolute values may lead to misinterpretation of CBC data. Current Interpretive Data was last revised on 2017. Testing performed by: [address] [address] Blood 02/09/2024 1:26 PM CORE STACKER 02/09/2024 1:33 PM CORE STACKER Venkat Vivar DO LAB BLOOD ORDERABLES Final R esult BANNERYUSUF [address] [facility] [place] [address] * (ABNORMAL) CBC with auto differential (02/09/2024 1:26 PM CORE STACKER) WBC 4.9 3.8 - 9.9 K/cumm Comment:Testing performed by : [address] [address] Hgb 12.0(L) 13.0 - 17.5 g/dL JAIME Comment:Testing performed by : [address] [address] Hct 34.5(L) 38.9 - 50.3 % JAIME Comment:Testing performed by : [address] [address] Plt 166 150 - 400 K/cumm JAIME Comment:Testing performed by : [address] [address] MPV 8.9(L) 9.1 - 12.3 fL JAIME Comment:Testing performed by : [address] [address] RBC 3.67(L) 4.30 - 5.80 M/cumm JAIME Comment:Testing performed by : [address] [address] MCV 94.0 81.3 - 96.4 fL JAIME Comment:Testing performed by : [address] [address] MCH 32.7 27.1 - 33.3 pg JAIME PINEDA Comment:Testing performed by : [facility] [address] [place] [address]., [address] MCHC 34.8 32.3 - 35.7 g/dL JAIME PINEDA Comment:Testing performed by : [address] [address] RDW CV 13.9 11.1 - 14.9 % JAIME PINEDA Comment:Testing performed by : [address] [address] RDW SD 47.8 35.7 - 48.1 fL JAIME PINEDA Comment:Testing performed by : [address], [place]., [address] NRBC abs 0.00 0.00 - 0.01 K/cumm JAIME PINEDA Comment:Testing performed by : [address] [address] Blood 02/09/2024 1:26 PM CORE STACKER 02/09/2024 1:33 PM CORE STACKER Venkat Vivar DO LAB BLOOD ORDERABLES Final R esult JAIME PINEDA [facility] [place] [address] * Comprehensive metabolic panel (02/09/2024 1:26 PM CORE STACKER) Sodium 139 135 - 145 mmol/L Comment:Testing performed by : [address] [address] Potassium, pl 3.8 3.3 - 4.9 mmol/L JAIME PINEDA Comment:Testing performed by : [address] [address] Chloride 103 97 - 110 mmol/L JAIME PINEDA Comment:Testing performed by : [address] [address] CO2 28 22 - 32 mmol/L JAIME PINEDA Comment:Testing performed by : [address] [address] Anion gap 8 2 - 15 mmol/L JAIME PINEDA Comment:Testing performed by : [address] [address] BUN 14 6 - 25 mg/dL JAIME Comment:Testing performed by : [address] [address] Creatinine 0.80 0.80 - 1.30 mg/dL JAIME Comment:Testing performed by : [address] [address] Glucose 102 70 - 199 mg/dL JAIME [...] was last revised 2022. Testing performed by: [address] [address] Calcium 8.9 8.5 - 10.3 mg/dL JAIME Comment:Testing performed by : [address] [address] Bilirubin, total 0.5 0.1 - 1.2 mg/dL JAIME Comment:Testing performed by : [address] [address] Protein, pl 7.2 6.5 - 8.5 g/dL JAIME Comment:Testing performed by : [address] [address] Albumin 4.1 3.5 - 5.0 g/dL BANNERYUSUF Comment:Testing performed by : [address] [address] Alk phos 70 40 - 130 Units/L JAIME Comment:Testing performed by : [address] [address] ALT 15 7 - 55 Units/L JAIME Comment:Testing performed by : [address] [address] AST 16 10 - 50 Units/L JAIME PINEDA Comment:Testing performed by : [facility], [address] [place] [address], [place]., [address] Blood 02/09/2024 1:26 PM CORE STACKER 02/09/2024 1:33 PM CORE STACKER us Venkat Vivar DO LAB BLOOD ORDERABLES Final R esult JAIME [address] [facility] [place] [address] * RAD ONC ARIA SESSION SUMMARY (02/09/2024 1:16 PM CORE STACKER) Course Name C1_BLADDER_ 2023 ARIA Course Plan Date 01/22/2024 3:44 PM ARIA Elapsed Days 7 ARIA Treatment Start Date 2024 ARIA Treatment Site BLADDER ARIA Dose Given To Date (cGy) 1,650 ARIA Session Dosage Given (cGy) 275 ARIA Plan ID BLADDER ARIA Fractions Treated 6 ARIA Prescribed Dose Per Fraction (cGy) 275 ARIA Prescribed Total Dose (cGy) 5,500 ARIA 02/09/2024 1:16 PM CORE STACKER us Not In File Miscellaneous RADIATION ONCOLOGY ORD ERABLES Final Result Performing Organization Address City/[facility]/ZIP Co de Phone Number ARIA * RAD ONC ARIA SESSION SUMMARY (02/06/2024 9:41 AM CORE STACKER) Course Name C1_BLADDER_ 2023 ARIA Course Plan Date 01/22/2024 3:44 PM ARIA Elapsed Days 4 ARIA Treatment Start Date 2024 ARIA Treatment Site BLADDER ARIA Dose Given To Date (cGy) 1,375 ARIA Session Dosage Given (cGy) 275 ARIA Plan ID BLADDER ARIA Fractions Treated 5 ARIA Prescribed Dose Per Fraction (cGy) 275 ARIA Prescribed Total Dose (cGy) 5,500 ARIA 02/06/2024 9:41 AM CORE STACKER us Not In File Miscellaneous RADIATION ONCOLOGY ORD ERABLES Final Result ARIA * eGFR (02/05/2024 1:18 PM CORE STACKER) [facility] eGFR >90 >=60 mL/min/1. 73 m2 Comment: [...] was last reviewed 2021. Testing performed by: [facility], [address] [place] [address]., [address] Blood 02/05/2024 1:18 PM CORE STACKER 02/05/2024 1:19 PM CORE STACKER us Venkat Vivar DO LAB BLOOD ORDERABLES Final R esult JAIME [address] [facility] Department [place] [address] * Differential, auto (02/05/2024 1:18 PM CORE STACKER) [facility] Neutrophil abs 4.0 1.5 - 6.5 K/cumm Comment:Testing performed by : [address], [place]., [address] Imm gran abs 0.0 0.0 - 0.1 K/cumm [facility] Comment:Testing performed by : [address], [place]., [address] Lymphocyte abs 1.3 0.8 - 3.3 K/cumm [facility] Comment:Testing performed by : [address], [place]., [address] Monocyte abs 0.4 0.2 - 0.8 K/cumm [facility] Comment:Testing performed by : [address] [address] Eosinophil abs 0.2 0.0 - 0.5 K/cumm [facility] Comment:Testing performed by : [address] [address] Basophil abs 0.0 0.0 - 0.1 K/cumm [facility] Comment:Testing performed by : [address] [address] Neutrophil pct 67.1 % [facility] Comment: Interpretive Data Percent cell count reference ranges are not reported, since discordance with absolute values may lead to misinterpretation of CBC data. Current Interpretive Data was last revised on 2017. Testing performed by: [address] [address] Imm gran pct 0.3 % [facility] Comment: Interpretive Data Percent cell count reference ranges are not reported, since discordance with absolute values may lead to misinterpretation of CBC data. Current Interpretive Data was last revised on 2017. Testing performed by: [address] [address] Lymphocyte pct 21.0 % [facility] Comment: Interpretive Data Percent cell count reference ranges are not reported, since discordance with absolute values may lead to misinterpretation of CBC data. Current Interpretive Data was last revised on 2017. Testing performed by: [address] [address] Monocyte pct 6.9 % [facility] Comment: Interpretive Data Percent cell count reference ranges are not reported, since discordance with absolute values may lead to misinterpretation of CBC data. Current Interpretive Data was last revised on 2017. Testing performed by: [address] [address] Eosinophil pct 4.0 % JAIME PINEDA Comment: Interpretive Data Percent cell count reference ranges are not reported, since discordance with absolute values may lead to misinterpretation of CBC data. Current Interpretive Data was last revised on 2017. Testing performed by: [address] [address] Basophil pct 0.7 % JAIME PINEDA Comment: Interpretive Data Percent cell count reference ranges are not reported, since discordance with absolute values may lead to misinterpretation of CBC data. Current Interpretive Data was last revised on 2017. Testing performed by: [address] [address] Blood 02/05/2024 1:18 PM CORE STACKER 02/05/2024 1:19 PM CORE STACKER us Venkat Vivar DO LAB BLOOD ORDERABLES Final R esult JAIME [address] [facility] [place] [address] * (ABNORMAL) CBC with auto differential (02/05/2024 1:18 PM CORE STACKER) WBC 6.0 3.8 - 9.9 K/cumm Comment:Testing performed by : [address] [address] Hgb 11.5(L) 13.0 - 17.5 g/dL JAIME PINEDA Comment:Testing performed by : [address] [address] Hct 33.3(L) 38.9 - 50.3 % JAIME PINEDA Comment:Testing performed by : [address] [address] Plt 173 150 - 400 K/cumm JAIME PINEDA Comment:Testing performed by : [address] [address] MPV 8.9(L) 9.1 - 12.3 fL JAIME Comment:Testing performed by : [address] [address] RBC 3.52(L) 4.30 - 5.80 M/cumm JAIME PINEDA Comment:Testing performed by : [address] [address] MCV 94.6 81.3 - 96.4 fL JAIME Comment:Testing performed by : [address] [address] MCH 32.7 27.1 - 33.3 pg JAIME Comment:Testing performed by : [address] [address] MCHC 34.5 32.3 - 35.7 g/dL JAIME Comment:Testing performed by : [address], [address] RDW CV 14.2 11.1 - 14.9 % JAIME Comment:Testing performed by : [address] [address] RDW SD 48.6(H) 35.7 - 48.1 fL JAIME Comment:Testing performed by : [address] [address] NRBC abs 0.00 0.00 - 0.01 K/cumm JAIME Comment:Testing performed by : [address] [address] Blood 02/05/2024 1:18 PM CORE STACKER 02/05/2024 1:19 PM CORE STACKER us Venkat Vivar DO LAB BLOOD ORDERABLES Final R esult JAIME [address] [facility] Department [place] [address] * Comprehensive metabolic panel (02/05/2024 1:18 PM CORE STACKER) [facility] Signature Sodium 140 135 - 145 mmol/L Comment:Testing performed by : [address], [place]., [address] Potassium, pl 4.2 3.3 - 4.9 mmol/L [facility] Comment:Testing performed by : [address], [place]., [address] Chloride 105 97 - 110 mmol/L [facility] Comment:Testing performed by : [address], [place]., [address] CO2 27 22 - 32 mmol/L [facility] Comment:Testing performed by : [address], [place]., [address] Anion gap 8 2 - 15 mmol/L [facility] Comment:Testing performed by : [address], [place]., [address] BUN 15 6 - 25 mg/dL [facility] Comment:Testing performed by : [address], [place]., [address] Creatinine 0.80 0.80 - 1.30 mg/dL [facility] Comment:Testing performed by : [address], [place]., [address] Glucose 100 70 - 199 mg/dL [facility] Comment: Interpretive Data Fasting glucose >/= 126 [...] was last revised 2022. Testing performed by: [address] [address] Calcium 8.8 8.5 - 10.3 mg/dL JAIME Comment:Testing performed by : [address], [place]., [address] Bilirubin, total 0.4 0.1 - 1.2 mg/dL [facility] Comment:Testing performed by : [address], [place]., [address] Protein, pl 6.8 6.5 - 8.5 g/dL JAIME Comment:Testing performed by : [address] [address] Albumin 3.9 3.5 - 5.0 g/dL JAIME Comment:Testing performed by : [address], [address] Alk phos 68 40 - 130 Units/L JAIME Comment:Testing performed by : [address] [address] ALT 15 7 - 55 Units/L JAIME Comment:Testing performed by : [address], [address] AST 15 10 - 50 Units/L JAIME Comment:Testing performed by : [address] [address] Blood 02/05/2024 1:18 PM CORE STACKER 02/05/2024 1:19 PM CORE STACKER us Venkat Vivar DO LAB BLOOD ORDERABLES Final R esult [place] [address] [facility] Department [place] [address] * RAD ONC ARIA SESSION SUMMARY (02/05/2024 12:55 PM CORE STACKER) Course Name C1_BLADDER_ 2023 ARIA Course Plan Date 01/22/2024 3:44 PM ARIA Elapsed Days 3 ARIA Treatment Start Date 2024 ARIA Treatment Site BLADDER ARIA Dose Given To Date (cGy) 1,100 ARIA Session Dosage Given (cGy) 275 ARIA Plan ID BLADDER ARIA Fractions Treated 4 ARIA Prescribed Dose Per Fraction (cGy) 275 ARIA Prescribed Total Dose (cGy) 5,500 ARIA 02/05/2024 12:5 5 PM CORE STACKER us Not In File Miscellaneous RADIATION ONCOLOGY ORD ERABLES Final Result LADONNA * RAD ONC ARIA SESSION SUMMARY (02/04/2024 1:54 PM CORE STACKER) Course Name C1_BLADDER_ 2023 ARIA Course Plan Date 01/22/2024 3:44 PM ARIA Elapsed Days 2 ARIA Treatment Start Date 2024 ARIA Treatment Site BLADDER ARIA Dose Given To Date (cGy) 825 ARIA Session Dosage Given (cGy) 275 ARIA Plan ID BLADDER ARIA Fractions Treated 3 ARIA Prescribed Dose Per Fraction (cGy) 275 ARIA Prescribed Total Dose (cGy) 5,500 ARIA 02/04/2024 1:54 PM CORE STACKER us Not In File Miscellaneous RADIATION ONCOLOGY ORD ERABLES Final Result Performing Organization Address [facility] de Phone Number ARIA * RAD ONC ARIA SESSION SUMMARY (02/03/2024 8:21 AM CORE STACKER) Course Name C1_BLADDER_ 2023 ARIA Course Plan Date 01/22/2024 3:44 PM ARIA Elapsed Days 1 ARIA Treatment Start Date 2024 ARIA Treatment Site BLADDER ARIA Dose Given To Date (cGy) 550 ARIA Session Dosage Given (cGy) 275 ARIA Plan ID BLADDER ARIA Fractions Treated 2 ARIA Prescribed Dose Per Fraction (cGy) 275 ARIA Prescribed Total Dose (cGy) 5,500 ARIA 02/03/2024 8:21 AM CORE STACKER us Not In File Miscellaneous RADIATION ONCOLOGY ORD ERABLES Final Result Performing Organization Address [facility] Co de Phone Number ARIA * eGFR (2024 12:47 PM CORE STACKER) eGFR >90 >=60 mL/min/1. 73 m2 Comment: [...] was last reviewed 2021. Testing performed by: [address] [address] Blood 2024 12:4 7 PM CORE STACKER 2024 12:49 PM CORE STACKER us Venkat Vivar DO LAB BLOOD ORDERABLES Final R esult JAIME [address] [facility] Department [place] [address] * Differential, auto (2024 12:47 PM CORE STACKER) Neutrophil abs 4.2 1.5 - 6.5 K/cumm Comment:Testing performed by : [address] [address] Imm gran abs 0.0 0.0 - 0.1 K/cumm JAIME Comment:Testing performed by : [address] [address] Lymphocyte abs 1.5 0.8 - 3.3 K/cumm JAIME Comment:Testing performed by : [address] [address] Monocyte abs 0.8 0.2 - 0.8 K/cumm JAIME Comment:Testing performed by : [address] [address] Eosinophil abs 0.2 0.0 - 0.5 K/cumm JAIME Comment:Testing performed by : [address] [address] Basophil abs 0.0 0.0 - 0.1 K/cumm [facility] Comment:Testing performed by : [address] [address] Neutrophil pct 61.5 % [facility] Comment: Interpretive Data Percent cell count reference ranges are not reported, since discordance with absolute values may lead to misinterpretation of CBC data. Current Interpretive Data was last revised on 2017. Testing performed by: [address] [address] Imm gran pct 0.4 % [facility] Comment: Interpretive Data Percent cell count reference ranges are not reported, since discordance with absolute values may lead to misinterpretation of CBC data. Current Interpretive Data was last revised on 2017. Testing performed by: [address] [address] Lymphocyte pct 22.4 % [facility] Comment: Interpretive Data Percent cell count reference ranges are not reported, since discordance with absolute values may lead to misinterpretation of CBC data. Current Interpretive Data was last revised on 2017. Testing performed by: [address] [address] Monocyte pct 11.9 % [facility] Comment: Interpretive Data Percent cell count reference ranges are not reported, since discordance with absolute values may lead to misinterpretation of CBC data. Current Interpretive Data was last revised on 2017. Testing performed by: [address] [address] Eosinophil pct 3.2 % [facility] Comment: Interpretive Data Percent cell count reference ranges are not reported, since discordance with absolute values may lead to misinterpretation of CBC data. Current Interpretive Data was last revised on 2017. Testing performed by: [address] [address] Basophil pct 0.6 % JAIME Comment: Interpretive Data Percent cell count reference ranges are not reported, since discordance with absolute values may lead to misinterpretation of CBC data. Current Interpretive Data was last revised on 2017. Testing performed by: [address] [address] Blood 2024 12:4 7 PM CORE STACKER 2024 12:49 PM CORE STACKER Venkat Vivar DO LAB BLOOD ORDERABLES Final R esult JAIME [address] [facility] [place] [address] * (ABNORMAL) CBC with auto differential (2024 12:47 PM CORE STACKER) WBC 6.8 3.8 - 9.9 K/cumm Comment:Testing performed by : [address] [address] Hgb 12.6(L) 13.0 - 17.5 g/dL JAIME Comment:Testing performed by : [address] [address] Hct 37.0(L) 38.9 - 50.3 % JAIME Comment:Testing performed by : [address] [address] Plt 185 150 - 400 K/cumm JAIME Comment:Testing performed by : [address] [address] MPV 8.9(L) 9.1 - 12.3 fL JAIME Comment:Testing performed by : [address] [address] RBC 3.89(L) 4.30 - 5.80 M/cumm JAIME Comment:Testing performed by : [address] [address] MCV 95.1 81.3 - 96.4 fL JAIME Comment:Testing performed by : [address] [address] MCH 32.4 27.1 - 33.3 pg JAIME PINEDA Comment:Testing performed by : [address] [address] MCHC 34.1 32.3 - 35.7 g/dL JAIME PINEDA Comment:Testing performed by : [address] [address] RDW CV 14.3 11.1 - 14.9 % JAIME PINEDA Comment:Testing performed by : [address] [address] RDW SD 50.1(H) 35.7 - 48.1 fL JAIME PINEDA Comment:Testing performed by : [address] [address] NRBC abs 0.00 0.00 - 0.01 K/cumm JAIME PINEDA Comment:Testing performed by : [address] [address] Blood 2024 12:4 7 PM CORE STACKER 2024 12:49 PM CORE STACKER us Venkat Vivar DO LAB BLOOD ORDERABLES Final R esult JAIME PINEDA [address] [facility] Department of Laboratories [place] [id number] * Comprehensive metabolic panel (2024 12:47 PM CORE STACKER) Sodium 142 135 - 145 mmol/L Comment:Testing performed by : [address] [address] Potassium, pl 4.4 3.3 - 4.9 mmol/L JAIME PINEDA Comment:Testing performed by : [address] [address] Chloride 107 97 - 110 mmol/L JAIME PINEDA Comment:Testing performed by : [address] [address] CO2 27 22 - 32 mmol/L JAIME PINEDA Comment:Testing performed by : [address] [address] Anion gap 8 2 - 15 mmol/L JAIME Comment:Testing performed by : [address] [address] BUN 15 6 - 25 mg/dL JAIME Comment:Testing performed by : [address] [address] Creatinine 0.80 0.80 - 1.30 mg/dL JAIME Comment:Testing performed by : [address] [address] Glucose 108 70 - 199 mg/dL JAIME [...] was last revised 2022. Testing performed by: [address] [address] Calcium 9.0 8.5 - 10.3 mg/dL JAIME Comment:Testing performed by : [address] [address] Bilirubin, total 0.4 0.1 - 1.2 mg/dL JAIME Comment:Testing performed by : [address] [address] Protein, pl 7.2 6.5 - 8.5 g/dL JAIME Comment:Testing performed by : [address] [address] Albumin 4.1 3.5 - 5.0 g/dL JAIME Comment:Testing performed by : [address] [address] Alk phos 71 40 - 130 Units/L JAIME Comment:Testing performed by : [address] [address] ALT 15 7 - 55 Units/L JAIME Comment:Testing performed by : [facility], [address] [place] [address]., [address] AST 16 10 - 50 Units/L JAIME Comment:Testing performed by : [facility], [address] [place] [address]., [address] Blood 2024 12:4 7 PM CORE STACKER 2024 12:49 PM CORE STACKER Venkat Vivar DO LAB BLOOD ORDERABLES Final R esult JAIME [address] [facility] [place] [address] * RAD ONC ARIA SESSION SUMMARY (2024 11:28 AM CORE STACKER) Course Name C1_BLADDER_ 2023 ARIA Course Plan Date 01/22/2024 3:44 PM ARIA Elapsed Days 0 ARIA Treatment Start Date 2024 ARIA Treatment Site BLADDER ARIA Dose Given To Date (cGy) 275 ARIA Session Dosage Given (cGy) 275 ARIA Plan ID BLADDER ARIA Fractions Treated 1 ARIA Prescribed Dose Per Fraction (cGy) 275 ARIA Prescribed Total Dose (cGy) 5,500 ARIA 2024 11:2 8 AM CORE STACKER us Not In File Miscellaneous RADIATION ONCOLOGY ORD ERABLES Final Result Performing Organization Address City/[facility]/ZIP Co de Phone Number ARIGeetha from Last 3 Months Insurance MEDICARE [employer] SENIOR SUPPLEMENT MEDICARE [facility] MEDICARE SUPPLEMENT MEDICARE [facility] MEDICARE SUPPLEMENT Member Subscriber Plan / Payer (Ef fective 2020-Present) Name:Venkat Aranda Relation to Subscriber:Self Name:Venkat Aranda Payer ID:[id number] Group ID:[id number] Type:COMMERCIAL Address: [address] [place] [id number] Care Teams Judicial Law Clerk Relationship Specialty Start Date End Date Nikky Reyes MD [address] [facility] ID [address] [place] [address] PCP - General Family Practice 12/15/23 Venkat Vivar DO [address] [place] [address] MEDICAL ONCOLOGY, [facility] [address] [place] [address] Medical Oncologist/Bus Driver/Monitor Hematology and Oncology 12/15/23 Kwaku Martin MD [address] [place] [address] Consulting Physician Urology 12/15/23 Richard Hargrove MD [address] [place] [address] [address] [place] [address] Radiation Oncologist Radiation Oncology 01/08/24 Adelso Quiñ[place] [address] [address] [facility] [address] [place] [address] Surgeon Urology 01/22/24
--- OUTSIDE RECORDS SUMMARY | 2024-04-12 11:35 | XMS_ITS | Encounter Summary ---
Author Organization [facility] Healthcare Address [address] [place] [address] Care Team Providers Care Second Cook And Baker Name Role Phone Nikky Reyes MD Primary Care Provider Venkat Vivar DO Unavailable [phone] Kwaku Martin MD Unavailable [phone] Richard Hargrove MD Unavailable [phone] Adelso Quiñones MD Unavailable [phone] Encounter Details Date Type Department Care Team (Late st Contact Info) Description 02/19/2024 Orders Only RAD ONC TREATMENTS Miscellaneous, [...] more drinks on one occasion? Never 01/06/2024 Sex and Gender Information Value Date Recorded Sex Assigned at Not on file Legal Sex Male 2:03 AM OUTREACH REPRESENTATIVE Gender Identity Not on file Sexual Orientation Not on file Occupation Industry Job Start Date Job End Date Retired Not on file Not on file Not on file documented as of this encounter Plan of Treatment Not on file documented as of this encounter Procedures Procedure Name Priority Date/Time Associated Diagnosis Comments RAD ONC ARIA SESSION SUMMARY 02/19/2024 9:52 AM OUTREACH REPRESENTATIVE documented in this encounter Results * RAD ONC ARIA SESSION SUMMARY (02/19/2024 9:52 AM OUTREACH REPRESENTATIVE) Course Name C1_BLADDER_ 2023 ARIA Course Plan Date 01/22/2024 3:44 PM ARIA Elapsed Days 17 ARIA Treatment Start Date 2024 ARIA Treatment Site BLADDER ARIA Dose Given To Date (cGy) 3,850 ARIA Session Dosage Given (cGy) 275 ARIA Plan ID BLADDER ARIA Fractions Treated 14 ARIA Prescribed Dose Per Fraction (cGy) 275 ARIA Prescribed Total Dose (cGy) 5,500 ARIA 02/19/2024 9:52 AM OUTREACH REPRESENTATIVE us Not In File Miscellaneous RADIATION ONCOLOGY ORD ERABLES Final Result ARIA documented in this encounter Visit Diagnoses Not on filedocumented in this encounter Care Teams Second Cook And Baker Relationship Specialty Start Date End Date Nikky Reyes MD [facility]7 [facility] [address] [place] [address] PCP - General Family Practice 12/15/23 Venkat Vivar DO [address] [facility] MEDICAL ONCOLOGY, [facility] [address] [place], [place] [id number] Medical Oncologist/Sterile Instrument Technician Hematology and Oncology 12/15/23 Kwaku Martin MD [address] [place] [address] Consulting Physician Urology 12/15/23 Richard Hargrove MD [address] [facility] [address] [place], [place] [id number] Radiation Oncologist Radiation Oncology 01/08/24 Adelso Quiñones [place] [address] [place] [address] Surgeon Urology 01/22/24 documented as of this encounter
--- OUTSIDE RECORDS SUMMARY | 2024-04-12 11:35 | XMS_ITS | Encounter Summary ---
Author Organization [facility] Healthcare Address [address] [place] [address] Care Team Providers Care Coating Supervisor Name Role Phone Nikky eRyes MD Primary Care Provider Venkat Vivar DO Unavailable [phone] Kwaku Martin MD Unavailable [phone] Richard Hargrove MD Unavailable [phone] Adelso Quiñones MD Unavailable [phone] Encounter Details Date Type Department Care Team (Late st Contact Info) Description 02/24/2024 [facility] Medical Office Building 2 Radiation Oncology [address] [place] [address] Ibeth Jo RN Social History Tobacco Use Types Packs/Day [...] on file Legal Sex Male 2:03 AM CHAIR TRIMMER Gender Identity Not on file Sexual Orientation Not on file Occupation Industry Job Start Date Job End Date Retired Not on file Not on file Not on file documented as of this encounter Miscellaneous Notes * Telephone Encounter - Ibeth Jo RN - 02/24/2024 10:58 AM CHAIR TRIMMER Patient complains of constipation x 1 week with no results after using flax seed, prune juice, & Miralax. Dr. Hargrove is out of the office today--recommendations obtained from Dr. Vivar's staff. Spoke with Venkat's regarding Dr. Vivar's recommendations for constipation: -2 Dulcolax tablets, 1 Dulcolax suppository, prunes, and ample amounts of water today + 1 bottle ofmagnesium citrate. He may space out the tablets/suppository and the mag citrate. -If no results by tomorrow, he should proceed to ER. She verbalized understanding to all discussed and said she would let him know. ODILON Becker with Dr. Vivar aware that I spoke with patient's as well. R TRIMMER documented in this encounter Plan of Treatment Not on file documented as of this encounter Visit Diagnoses Not on filedocumented in this encounter Care Teams Coating Supervisor Relationship Specialty Start Date End Date Nikky Reyes MD [facility] [place] [address] [place] [address] PCP - General Family Practice 12/15/23 Venkat Vivar DO [address] [place] [address] MEDICAL ONCOLOGY, [address] [address] Medical Oncologist/Fur Remodeler Hematology and Oncology 12/15/23 Kwaku Martin MD 1 [place] [address] Consulting Physician Urology 12/15/23 Richard Hargrove MD [address] [address] Radiation Oncologist Radiation Oncology 01/08/24 Adelso Quiñ[place] [address] [place] [address] Surgeon Urology 01/22/24 documented as of this encounter
--- OUTSIDE RECORDS SUMMARY | 2024-04-12 11:35 | XMS_ITS | Encounter Summary ---
Author Organization [facility] Healthcare Address [address] [place] [address] Care Team Providers Care Informal Waiter/Waitress Name Role Phone Nikky Reyes MD Primary Care Provider Venkat Vivar DO Unavailable [phone] Kwaku Martin MD Unavailable [phone] Richard Hargrove MD Unavailable [phone] Adelso Quiñones MD Unavailable [phone] Encounter Details Date Type Department Care Team (Late st Contact Info) Description 02/17/2024 9:30 AM KITCHEN RUNNER Treatment [facility] Medical Office Building 2 Radiation Oncology [address] [place] [address] Social History Tobacco Use Types Packs/Day Years [...] on file Legal Sex Male 2:03 AM KITCHEN RUNNER Gender Identity Not on file Sexual Orientation Not on file Occupation Industry Job Start Date Job End Date Retired Not on file Not on file Not on file documented as of this encounter Plan of Treatment Not on file documented as of this encounter Visit Diagnoses Not on filedocumented in this encounter Care Teams Informal Waiter/Waitress Relationship Specialty Start Date End Date Nikky Reyes MD [address] [facility] [address] [place] [address] PCP - General Family Practice 12/15/23 [place] [address] [place] [address] MEDICAL ONCOLOGY, [facility] 180 [place] [address] Medical Oncologist/Greens Picker Hematology and Oncology 12/15/23 Kwaku Martin MD [address] [place] [address] Consulting Physician Urology 12/15/23 [place] [address] [place] [address] 160 [place] [address] Radiation Oncologist Radiation Oncology 01/08/24 Adelso Quiñones [place] [address] [place] [address] Surgeon Urology 01/22/24 documented as of this encounter
--- OUTSIDE RECORDS SUMMARY | 2024-04-12 11:35 | XMS_ITS | Encounter Summary ---
Author Organization [facility] Healthcare Address [address] [place] [address] Care Team Providers Care Occupational Therapy Co Director Name Role Phone Nikky Reyes MD Primary Care Provider Venkat Vivar DO Unavailable [phone] Kwaku Martin MD Unavailable [phone] Richard Hargrove MD Unavailable [phone] Adelso Quiñones MD Unavailable [phone] Encounter Details Date Type Department Care Team (Late st Contact Info) Description 02/20/2024 Documentation [facility] Medical Office Building 2 Radiation Oncology [address] [place] [address] Ibeth Jo RN Social History Tobacco Use [...] on file Legal Sex Male 2:03 AM WASTE DISPOSAL ATTENDANT Gender Identity Not on file Sexual Orientation Not on file Occupation Industry Job Start Date Job End Date Retired Not on file Not on file Not on file documented as of this encounter Nursing Notes * Ibeth Jo RN - 02/20/2024 10:59 AM CST Patient was not in the waiting room when I went to get him for OTV. Left before able to be seen. Dr. Hargrove aware. E DISPOSAL ATTENDANT documented in this encounter Plan of Treatment Not on file documented as of this encounter Visit Diagnoses Not on filedocumented in this encounter Care Teams Occupational Therapy Co Director Relationship Specialty Start Date End Date Nikky Reyes MD [facility] [address] [place] [address] PCP - General Family Practice 12/15/23 Venkat Vivar DO 1418 [facility] MEDICAL ONCOLOGY, [facility] 180 [place] [address] Medical Oncologist/Trust Manager Hematology and Oncology 12/15/23 Kwaku Martin MD 1 [place] [address] Consulting Physician Urology 12/15/23 Richard Hargrove MD [address] [place] [address] [address] [place], [place] [address] Radiation Oncologist Radiation Oncology 01/08/24 Adelso Qu[place]ñones [place] [address] [place] [address] Surgeon Urology 01/22/24 documented as of this encounter
--- OUTSIDE RECORDS SUMMARY | 2024-04-12 11:35 | XMS_ITS | Encounter Summary ---
Author Organization [facility] Healthcare Address [address] [place] [address] Care Team Providers Care Health Records Technology Teacher Name Role Phone Nikky Reyes MD Primary Care Provider Venkat Vivar DO Unavailable [phone] Kwaku Martin MD Unavailable [phone] Richard Hargrove MD Unavailable [phone] Adelso Quiñones MD Unavailable [phone] Encounter Details Date Type Department Care Team (Late st Contact Info) Description 02/23/2024 Orders Only RAD ONC TREATMENTS Miscellaneous, [...] on file Legal Sex Male 2:03 AM RENDERING EQUIPMENT TENDER Gender Identity Not on file Sexual Orientation Not on file Occupation Industry Job Start Date Job End Date Retired Not on file Not on file Not on file documented as of this encounter Plan of Treatment Not on file documented as of this encounter Procedures Procedure Name Priority Date/Time Associated Diagnosis Comments RAD ONC ARIA SESSION SUMMARY 02/23/2024 9:45 AM RENDERING EQUIPMENT TENDER documented in this encounter Results * RAD ONC ARIA SESSION SUMMARY (02/23/2024 9:45 AM RENDERING EQUIPMENT TENDER) Course Name [email or web address]_ 2023 ARIA Course Plan Date 01/22/2024 3:44 PM ARIA Elapsed Days 21 ARIA Treatment Start Date 2024 ARIA Treatment Site BLADDER ARIA Dose Given To Date (cGy) 4,675 ARIA Session Dosage Given (cGy) 275 ARIA Plan ID BLADDER ARIA Fractions Treated 17 ARIA Prescribed Dose Per Fraction (cGy) 275 ARIA Prescribed Total Dose (cGy) 5,500 ARIA 02/23/2024 9:45 AM RENDERING EQUIPMENT TENDER us Not In File Miscellaneous RADIATION ONCOLOGY ORD ERABLES Final Result ARIA documented in this encounter Visit Diagnoses Not on filedocumented in this encounter Care Teams Health Records Technology Teacher Relationship Specialty Start Date End Date Nikky Reyes MD [address] [facility] 2 [place] [address] PCP - General Family Practice 12/15/23 Venkat Vivar DO 1418 [facility] MEDICAL ONCOLOGY, [facility] 180 [place], [place] [address] Medical Oncologist/Mathematics Teacher Hematology and Oncology 12/15/23 Kwaku Martin MD [address] [place] [address] Consulting Physician Urology 12/15/23 Richard Hargrove MD 1418 [facility] 160 [place], [place] [address] Radiation Oncologist Radiation Oncology 01/08/24 Adelso Quiñones [place] [address] [place] [address] Surgeon Urology 01/22/24 documented as of this encounter
--- OUTSIDE RECORDS SUMMARY | 2024-04-12 11:35 | XMS_ITS | Encounter Summary ---
Author Organization [facility] Healthcare Address [address] [place] [address] Care Team Providers Care Studio Control Operator Name Role Phone Nikky Reyes MD Primary Care Provider Venkat Vivar DO Unavailable [phone] Kwaku Martin MD Unavailable [phone] Richard Hargrove MD Unavailable [phone] Adelso Quiñones MD Unavailable [phone] Encounter Details Date Type Department Care Team (Late st Contact Info) Description 02/20/2024 9:30 AM AIRCRAFT ORDNANCE SYSTEMS MECHANIC Treatment [facility] Medical Office Building 2 Radiation Oncology [address] [place] [address] Social History Tobacco Use Types Packs/Day Years [...] on file Legal Sex Male 2:03 AM AIRCRAFT ORDNANCE SYSTEMS MECHANIC Gender Identity Not on file Sexual Orientation Not on file Occupation Industry Job Start Date Job End Date Retired Not on file Not on file Not on file documented as of this encounter Plan of Treatment Not on file documented as of this encounter Visit Diagnoses Not on filedocumented in this encounter Care Teams Studio Control Operator Relationship Specialty Start Date End Date Nikky Reyes MD [address] [facility] [address] [place] [address] PCP - General Family Practice 12/15/23 [place] [address] [place] [address] MEDICAL ONCOLOGY, [facility] 180 [place] [address] Medical Oncologist/Paleontology Teacher Hematology and Oncology 12/15/23 Kwaku Martin MD [address] [place] [address] Consulting Physician Urology 12/15/23 [place] [address] [place] [address] 160 [place] [address] Radiation Oncologist Radiation Oncology 01/08/24 Adelso Quiñones [place] [address] [place] [address] Surgeon Urology 01/22/24 documented as of this encounter
--- OUTSIDE RECORDS SUMMARY | 2024-04-12 11:35 | XMS_ITS | Encounter Summary ---
Author Organization [facility] Healthcare Address [address] [place] [address] Care Team Providers Care Steel Die Printer Name Role Phone Nikky Reyes MD Primary Care Provider Venkat Vivar DO Unavailable [phone] Kwaku Martin MD Unavailable [phone] Richard Hargrove MD Unavailable [phone] Adelso Quiñones MD Unavailable [phone] Encounter Details Date Type Department Care Team (Late st Contact Info) Description 02/17/2024 Orders Only RAD ONC TREATMENTS Miscellaneous, [...] on file Legal Sex Male 2:03 AM DIRECTOR STAFFING Gender Identity Not on file Sexual Orientation Not on file Occupation Industry Job Start Date Job End Date Retired Not on file Not on file Not on file documented as of this encounter Plan of Treatment Not on file documented as of this encounter Procedures Procedure Name Priority Date/Time Associated Diagnosis Comments RAD ONC ARIA SESSION SUMMARY 02/17/2024 9:40 AM DIRECTOR STAFFING documented in this encounter Results * RAD ONC ARIA SESSION SUMMARY (02/17/2024 9:40 AM DIRECTOR STAFFING) Course Name [email or web address]_[email or web address]_ 2023 ARIA Course Plan Date 01/22/2024 3:44 PM ARIA Elapsed Days 15 ARIA Treatment Start Date 2024 ARIA Treatment Site BLADDER ARIA Dose Given To Date (cGy) 3,300 ARIA Session Dosage Given (cGy) 275 ARIA Plan ID BLADDER ARIA Fractions Treated 12 ARIA Prescribed Dose Per Fraction (cGy) 275 ARIA Prescribed Total Dose (cGy) 5,500 ARIA 02/17/2024 9:40 AM DIRECTOR STAFFING us Not In File Miscellaneous RADIATION ONCOLOGY ORD ERABLES Final Result ARIA documented in this encounter Visit Diagnoses Not on filedocumented in this encounter Care Teams Steel Die Printer Relationship Specialty Start Date End Date Nikky Reyes MD [facility]7 [facility] 2 [place] [address] PCP - General Family Practice 12/15/23 Venkat Vivar DO [address] [facility] MEDICAL ONCOLOGY, [facility] 180 [place], [place] [address] Medical Oncologist/Jumpbasting Facing Baster Hematology and Oncology 12/15/23 Kwaku Martin MD [address] [place] [address] Consulting Physician Urology 12/15/23 Richard Hargrove MD 1418 [facility] 160 [place], [place] [address] Radiation Oncologist Radiation Oncology 01/08/24 Adelso Quiñones [place] [address] [place] [address] Surgeon Urology 01/22/24 documented as of this encounter
--- OUTSIDE RECORDS SUMMARY | 2024-04-12 11:35 | XMS_ITS | Encounter Summary ---
Author Organization [facility] Healthcare Address [address] [place] [address] Care Team Providers Care Phlebotomy Manager Name Role Phone Nikky Reyes MD Primary Care Provider Venkat Vivar DO Unavailable [phone] Kwaku Martin MD Unavailable [phone] Richard Hargrove MD Unavailable [phone] Adelso Quiñones MD Unavailable [phone] Encounter Details Date Type Department Care Team (Late st Contact Info) Description 02/25/2024 9:30 AM MACHINE I ENGRAVER Treatment [facility] Medical Office Building 2 Radiation Oncology [address] [place] [address] Social History Tobacco Use Types Packs/Day Years [...] on file Legal Sex Male 2:03 AM MACHINE I ENGRAVER Gender Identity Not on file Sexual Orientation Not on file Occupation Industry Job Start Date Job End Date Retired Not on file Not on file Not on file documented as of this encounter Plan of Treatment Not on file documented as of this encounter Visit Diagnoses Not on filedocumented in this encounter Care Teams Phlebotomy Manager Relationship Specialty Start Date End Date Nikyk Reyes MD 3417 [facility] 2 [place], [place] [phone] PCP - General Family Practice 12/15/23 Venkat Vivar DO 1418 [facility] MEDICAL ONCOLOGY, [facility] 180 [place] [address] Medical Oncologist/Bottling Attendant Hematology and Oncology 12/15/23 Kwaku Martin MD 1 [place] [address] Consulting Physician Urology 12/15/23 Richard Hargrove MD 1418 [facility] 160 [place], [place] [address] Radiation Oncologist Radiation Oncology 01/08/24 Adelso Quiñones [place] [address] [place] [address] Surgeon Urology 01/22/24 documented as of this encounter
--- OUTSIDE RECORDS SUMMARY | 2024-04-12 11:35 | XMS_ITS | Encounter Summary ---
Author Organization [facility] Healthcare Address [address] [place] [address] Care Team Providers Care Chemical Applicator Name Role Phone Nikky Reyes MD Primary Care Provider Venkat Vivar DO Unavailable [phone] Kwaku Martin MD Unavailable [phone] Richard Hargrove MD Unavailable [phone] Adelso Quiñones MD Unavailable [phone] Reason for Visit * Reason Comments OTV Encounter Details Date Type Department Care Team ([facility] Contact Info) Description 02/23/2024 OTV [facility] Medical Office Building 2 Radiation Oncology [address] [place] [address] Richard Hargrove MD [address] [place], [place] [id number] Social History Tobacco Use Types Packs/Day Years [...] on file Legal Sex Male 2:03 AM POWER GENERATION PLANT OPERATOR Gender Identity Not on file Sexual Orientation Not on file Occupation Industry Job Start Date Job End Date Retired Not on file Not on file Not on file documented as of this encounter Last Filed Vital Signs Vital Sign Reading Time Taken Comments Blood Pressure 119/73 02/23/2024 9:51 AM POWER GENERATION PLANT OPERATOR Pulse 90 02/23/2024 9:51 AM POWER GENERATION PLANT OPERATOR Temperature - - Respiratory Rate - - Oxygen Saturation 100% 02/23/2024 9:51 AM POWER GENERATION PLANT OPERATOR Inhaled Oxygen Concentration - - Weight 88.9 kg (196 lb) 02/23/2024 9:51 AM POWER GENERATION PLANT OPERATOR Height - - Body Mass Index 26.26 2024 12:58 PM POWER GENERATION PLANT OPERATOR documented in this encounter Progress Notes * Richard Hargrove MD - 02/23/2024 9:51 AM CST PATIENT NAME: Venkat Aranda DATE OF : 1950 TREATING PHYSICIAN:Richard Hargrove MD DATE OF SERVICE: 02/23/2024 RADIATION ONCOLOGY ON TREATMENT VISIT NOTE DIAGNOSIS:: Cancer Staging Malignant neoplasm of urinary bladder (HCC) Staging form: Urinary Bladder, AJCC 8th Edition - Clinical stage from 12/05/2023: Stage II (cT2, cN0, cM0) - Signed by Chayo Card MD on 01/22/2024 TREATMENT: Radiation Treatments Active Plans BLADDER Most recent treatment: Dose planned: 275 cGy (fraction 17 on 02/23/2024) Total: Dose planned: 5,500 cGy Elapsed Days: 21 Reference Points BLADDER Most recent treatment: Dose given: 275 cGy (on 02/23/2024) Total: Dose given: 4,675 cGy Elapsed Days: 21 Radiation Treatments No historical radiation treatments to show. SUBJECTIVE: The patient states that he is doing well. Today he reports 1 week duration of constipation. Has been using miralax sparingly. EXAM: BP 119/73 Pulse 90 Wt 88.9 kg (196 lb) SpO2 100% BMI 26.26 kg/m?? Pain Score and Location 02/23/24 0951 PainSc: 0-No pain No acute distress. No skin changes. Urinary tract effects: 0 - None Gastrointestinal effects: 0 - None Consitutional effects: 0 - None ASSESSMENT: No side effects PLAN: Continue with treatment Recommended proceeding with miralax daily. RAD ONC PAIN PLAN: The patient is not currently having any pain that requires changes in pain management. R GENERATION PLANT OPERATOR documented in this encounter Plan of Treatment Not on file documented as of this encounter Visit Diagnoses Not on filedocumented in this encounter Care Teams Chemical Applicator Relationship Specialty Start Date End Date Nikky Reyes MD 3417 [facility] ID 2 [place] [address] PCP - General Family Practice 12/15/23 [place] [address] [place] [address] [facility] 180 [place] [address] Medical Oncologist/Bread Molder Hematology and Oncology 12/15/23 Kwaku Martin MD [address] [place] [address] Consulting Physician Urology 12/15/23 Richard Hargrove MD [address] [place] [address] 160 [place] [address] Radiation Oncologist Radiation Oncology 01/08/24 Adelso Qu[place] [address] [address] [facility] 375 [place] [address] Surgeon Urology 01/22/24 documented as of this encounter
--- OUTSIDE RECORDS SUMMARY | 2024-04-12 11:35 | XMS_ITS | Encounter Summary ---
Author Organization [facility] Healthcare Address [address] [place] [address] Care Team Providers Care Oracle Application Consultant Name Role Phone Nikky Reyes MD Primary Care Provider Venkat Vivar DO Unavailable [phone] Kwaku Martin MD Unavailable [phone] Richard Hargrove MD Unavailable [phone] Adelso Quiñones MD Unavailable [phone] Reason for Visit * Episode Based Medications (Routine) - Closed Specialty Diagnoses / Procedures Referred By Leatha t Referred To Contact Diagnoses Encounter for person encountering health services Malignant neoplasm of urinary bladder, unspecified site (HCC) Venkat Vivar, [address] [place] [address] Phone: tel: fax: [address] [address] Phone: tel: fax: Referral ID Status Reason Start Date Expiration Date Visits Re quested Visits Authorized [id number] Closed 01/05/2024 03/09/2024 1 70 Encounter Details Date Type Department Care Team ([facility] st Contact Info) Description 02/23/2024 10:15 AM MAILROOM CLERK Lab [facility] at [address] [address] Encounter for person encountering health services; Malignant [...] on file Legal Sex Male 2:03 AM MAILROOM CLERK Gender Identity Not on file Sexual Orientation Not on file Occupation Industry Job Start Date Job End Date Retired Not on file Not on file Not on file documented as of this encounter Plan of Treatment Not on file documented as of this encounter Procedures Procedure Name Priority Date/Time Associated Diagnosis Comments EGFR Routine 02/23/2024 11:02 AM MAILROOM CLERK Encounter for person encountering health services Malignant neoplasm of urinary bladder, unspecified site (HCC) DIFFERENTIAL AUTO Routine 02/23/2024 11: 02 AM MAILROOM CLERK Encounter for person encountering health services Malignant neoplasm of urinary bladder, unspecified site (HCC) CBC WITH AUTO DIFFERENTIAL Routine 02/23/2024 11:02 AM MAILROOM CLERK Encounter for person encountering health services Malignant neoplasm of urinary bladder, unspecified site (HCC) COMPREHENSIVE METABOLIC PANEL Routine 02/23/2024 11:02 AM MAILROOM CLERK Encounter for person encountering health services Malignant neoplasm of urinary bladder, unspecified site (HCC) documented in this encounter Results * eGFR (02/23/2024 11:02 AM MAILROOM CLERK) eGFR 89 >=60 mL/min/1. 73 m2 Comment: [...] last reviewed 2021. Testing performed by: [address] [id number] Blood 02/23/2024 11:0 2 AM MAILROOM CLERK 02/23/2024 11:04 AM MAILROOM CLERK us Venkat Vivar DO LAB BLOOD ORDERABLES Final R esult JAIME [address] [facility] Department [place] [address] * (ABNORMAL) Differential, auto (02/23/2024 11:02 AM MAILROOM CLERK) Neutrophil abs 3.9 1.5 - 6.5 K/cumm Comment:Testing performed by : [address] [address] Imm gran abs 0.0 0.0 - 0.1 K/cumm JAIME PINEDA Comment:Testing performed by : [address] [address] Lymphocyte abs 0.5(L) 0.8 - 3.3 K/cumm CERNER Comment:Testing performed by : [address] [address] Monocyte abs 0.4 0.2 - 0.8 K/cumm CERNER Comment:Testing performed by : [address] [address] Eosinophil abs 0.1 0.0 - 0.5 K/cumm [facility] Comment:Testing performed by : [address], [place]., [address] Basophil abs 0.0 0.0 - 0.1 K/cumm [facility] Comment:Testing performed by : [address] [address] Neutrophil pct 78.5 % [facility] Comment: Interpretive Data Percent cell count reference ranges are not reported, since discordance with absolute values may lead to misinterpretation of CBC data. Current Interpretive Data was last revised on 2017. Testing performed by: [address] [address] Imm gran pct 0.6 % [facility] Comment: Interpretive Data Percent cell count reference ranges are not reported, since discordance with absolute values may lead to misinterpretation of CBC data. Current Interpretive Data was last revised on 2017. Testing performed by: [address] [address] Lymphocyte pct 10.4 % CERNER Comment: Interpretive Data Percent cell count reference ranges are not reported, since discordance with absolute values may lead to misinterpretation of CBC data. Current Interpretive Data was last revised on 2017. Testing performed by: [address] [address] Monocyte pct 7.5 % CERNER Comment: Interpretive Data Percent cell count reference ranges are not reported, since discordance with absolute values may lead to misinterpretation of CBC data. Current Interpretive Data was last revised on 2017. Testing performed by: [address] [address] Eosinophil pct 2.6 % CERNER Comment: Interpretive Data Percent cell count reference ranges are not reported, since discordance with absolute values may lead to misinterpretation of CBC data. Current Interpretive Data was last revised on 2017. Testing performed by: [address] [address] Basophil pct 0.4 % JAIME Comment: Interpretive Data Percent cell count reference ranges are not reported, since discordance with absolute values may lead to misinterpretation of CBC data. Current Interpretive Data was last revised on 2017. Testing performed by: [address] [address] Blood 02/23/2024 11:0 2 AM MAILROOM CLERK 02/23/2024 11:04 AM MAILROOM CLERK Venkat Vivar DO LAB BLOOD ORDERABLES Final R esult JAIME [facility] Department [place] [address] * Comprehensive metabolic panel (02/23/2024 11:02 AM MAILROOM CLERK) Sodium 141 135 - 145 mmol/L Comment:Testing performed by : [address] [address] Potassium, pl 4.1 3.3 - 4.9 mmol/L JAIME Comment:Testing performed by : [address] [address] Chloride 104 97 - 110 mmol/L JAIME Comment:Testing performed by : [address] [address] CO2 27 22 - 32 mmol/L JAIME Comment:Testing performed by : [address] [address] Anion gap 10 2 - 15 mmol/L JAIME Comment:Testing performed by : [address] [address] BUN 17 6 - 25 mg/dL JAIME Comment:Testing performed by : [address] [address] Creatinine 0.90 0.80 - 1.30 mg/dL JAIME Comment:Testing performed by : [address] [address] Glucose 115 70 - 199 mg/dL JAIME [...] last revised 2022. Testing performed by: [address] [address] Calcium 9.0 8.5 - 10.3 mg/dL JAIME Comment:Testing performed by : [address] [address] Bilirubin, total 0.5 0.1 - 1.2 mg/dL JAIME Comment:Testing performed by : [address] [address] Protein, pl 7.1 6.5 - 8.5 g/dL JAIME Comment:Testing performed by : [address] [address] Albumin 3.8 3.5 - 5.0 g/dL JAIME Comment:Testing performed by : [address] [address] Alk phos 75 40 - 130 Units/L JAIME Comment:Testing performed by : [address] [address] ALT 19 7 - 55 Units/L JAIME Comment:Testing performed by : [address] [address] AST 17 10 - 50 Units/L JAIME Comment:Testing performed by : [address] [address] Blood 02/23/2024 11:0 2 AM MAILROOM CLERK 02/23/2024 11:04 AM MAILROOM CLERK us Venkat Vivar DO LAB BLOOD ORDERABLES Final R esult JAIME [address] [facility] Department [place] [address] * (ABNORMAL) CBC with auto differential (02/23/2024 11:02 AM MAILROOM CLERK) WBC 4.9 3.8 - 9.9 K/cumm Comment:Testing performed by : [address] [address] Hgb 10.6(L) 13.0 - 17.5 g/dL JAIME Comment:Testing performed by : [address] [address] Hct 30.6(L) 38.9 - 50.3 % JAIME Comment:Testing performed by : [address] [address] Plt 146(L) 150 - 400 K/cumm JAIME Comment:Testing performed by : [address] [address] MPV 8.6(L) 9.1 - 12.3 fL JAIME Comment:Testing performed by : [address] [address] RBC 3.18(L) 4.30 - 5.80 M/cumm JAIME Comment:Testing performed by : [address] [address] MCV 96.2 81.3 - 96.4 fL JAIME Comment:Testing performed by : [address] [address] MCH 33.3 27.1 - 33.3 pg JAIME PINEDA Comment:Testing performed by : [address] [address] MCHC 34.6 32.3 - 35.7 g/dL JAIME Comment:Testing performed by : [address] [address] RDW CV 15.0(H) 11.1 - 14.9 % JAIME PINEDA Comment:Testing performed by : [facility], [address] [place] [address]., [address] RDW SD 49.3(H) 35.7 - 48.1 fL JAIME PINEDA Comment:Testing performed by : [facility], [address] [place] [address]., [address] NRBC abs 0.00 0.00 - 0.01 K/cumm JAIME PINEDA Comment:Testing performed by : [facility], [address] [place] [address]., [address] Blood 02/23/2024 11:0 2 AM MAILROOM CLERK 02/23/2024 11:04 AM MAILROOM CLERK Venkat Vivar DO LAB BLOOD ORDERABLES Final R esult JAIME [address] [facility] Department [place] [address] documented in this encounter Visit Diagnoses Diagnosis Encounter for person encountering health services Malignant neoplasm of urinary bladder, unspecified site (HCC) documented in this encounter Orders Appointment Requests Count Last Ordered Date Fi rst Ordered Date ONCBCN LAB APPOINTMENT 1 02/23/2024 documented in this encounter Care Teams Oracle Application Consultant Relationship Specialty Start Date End Date Nkiky Reyes MD [facility] [address] [place] [address] PCP - General Family Practice 12/15/23 Venkat Vivar DO [address] [place] [address] MEDICAL ONCOLOGY, [facility] [address] [place] [address] Medical Oncologist/Chief Business Officer Hematology and Oncology 12/15/23 Kwaku Martin MD [address] [place] [address] Consulting Physician Urology 12/15/23 Richard Hargrove MD [address] [address] Radiation Oncologist Radiation Oncology 01/08/24 Adelso Qu[place] [address] [place] [address] Surgeon Urology 01/22/24 documented as of this encounter
--- OUTSIDE RECORDS SUMMARY | 2024-04-12 11:35 | XMS_ITS | Encounter Summary ---
Author Organization [facility] Address [address] [place] [address] Phone Care Team Providers Care Museum Or Zoo Director Name Role Phone Nikky Reyes MD Primary Care Provider Mitchell Martinez DO Unavailable [phone] Kwaku Martin MD Unavailable [phone] Richard Hargrove MD Unavailable [phone] Adelso Quiñones MD Unavailable [phone] Reason for Visit * Reason Comments Follow-up Encounter Details Date Type Department Care Team ([facility] st Contact Info) Description 03/01/2024 10:45 AM GUEST SERVICES AMBASSADOR Office Visit [facility] Oncology [address] [place] [phone] Mitchell Martinez DO [address] [place] [address] 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 Never 01/06/2024 Q2: How many drinks containi ng alcohol do you have on a typical day when you are drinking? Patient does not drink 4 Q3: How often do you have si [...] on file Legal Sex Male 2:03 AM GUEST SERVICES AMBASSADOR Gender Identity Not on file Sexual Orientation Not on file Occupation Industry Job Start Date Job End Date Retired Not on file Not on file Not on file documented as of this encounter Last Filed Vital Signs Vital Sign Reading Time Taken Comments Blood Pressure 118/75 03/01/2024 11:02 AM GUEST SERVICES AMBASSADOR Pulse 60 03/01/2024 11:02 AM GUEST SERVICES AMBASSADOR Temperature 36.8 ??C (98.2 ??F) 03/01/2024 11:[address] Respiratory Rate 18 03/01/2024 11:02 AM GUEST SERVICES AMBASSADOR Oxygen Saturation 97% 03/01/2024 11:02 AM GUEST SERVICES AMBASSADOR Inhaled Oxygen Concentration - - Weight 87.3 kg (192 lb 6.4 oz) 03/01/2024 11:02 AM GUEST SERVICES AMBASSADOR no shoes Height - - Body Mass Index 25.38 02/25/2024 12:13 AM GUEST SERVICES AMBASSADOR documented in this encounter Ordered Prescriptions Prescription Sig Dispense Quantity Refills Last Filled Start Date End Date ciprofloxacin (CIPRO) 500 mg tablet Take 1 tablet (500 mg total) by mouth 2 (two) times a day for 7 days For colitis 14 tablet 03/01/2024 4 documented in this encounter Progress Notes * Mitchell Martinez, DO - 03/01/2024 10:45 AM CST Patient ID: Mitchell Aranda is a 74 y.o. male. 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 At this point in time, he has completed all planned courses of definitive chemoradiation. He is now on active surveillance. 2. I will give him Cipro 500 mg b.i.d. for 7 days for the diverticulitis in hopes that this will also improve his bowel function. In addition, he will continue with the MiraLax, Metamucil b.i.d. and the dietary fiber. 3. I will see him back here in 8 weeks with repeat blood work. 4. He will follow-up with Dr. Quiñones for repeat surveillance cystoscopy/TURBT and right ureteral stent exchange or removal. 5. Patient will continue with his current supportive measures. My total encounter time on 03/01/2024 was 20 minutes which was spent in the activities documented inthe note. This includes time spent prior to the visit and after the visit in direct care of the patient. This time does not include time spent in any separately reportable services. 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) Cancer Staging Information: Cancer Staging Malignant neoplasm of urinary bladder (HCC) Staging form: Urinary Bladder, AJCC 8th Edition - Clinical stage from 12/05/2023: Stage II (cT2, cN0, cM0) - Signed by Chayo Card MD on 01/22/2024 Diagnoses and all orders for this visit: Malignant neoplasm of ureteric orifice (HCC) (Primary) - Clinic Appointment Request Follow up; MITCHELL MARTINEZ; Clinic Appointment Location: [facility] [place] [address]; Future Malignant neoplasm of urinary bladder, unspecified site (HCC) - Clinic Appointment Request Follow up; MITCHELL MARTINEZ MD; Clinic Appointment Location: [facility] [place] [address] Anemia due to chemotherapy - Clinic Appointment Request Follow up; MITCHELL MARTINEZ; Clinic Appointment Location: [facility] [place] [facility]; Future - Lab Draw Appt Request Arm Draw or Central Line Draw? Arm; Ordering location: IM Onc/Hem/BMT; Treatment location: [facility]; Future - CBC with auto differential; Future - Comprehensive metabolic panel; Future Other orders - ciprofloxacin (CIPRO) 500 mg tablet; Take 1 tablet (500 mg total) by mouth 2 (two) times a day for 7 days For colitis Subjective Interval History: Oncology History Malignant neoplasm of urinary bladder (HCC) 12/05/2023 - Cancer Staged Staging form: Urinary Bladder, AJCC 8th Edition - Clinical stage from 12/05/2023: Stage II (cT2, cN0, cM0) 01/05/2024 Initial Diagnosis Malignant neoplasm of urinary bladder (HCC) Stage II muscle invasive bladder cancer 1. T2 N0 M0 2. 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 Patient presented to his urologist this past summer with gross hematuria. In October, he underwent office based cystoscopy which showed a malignant appearing tumor in the posterior right bladder. He has been having intermittent gross hematuria since spring of this year. He was treated with several rounds of antibiotics prior to the cystoscopy procedure but the antibiotics did not alleviate his symptoms. 2. He also complains of other lower urinary tract symptoms such as urgency, frequency, dysuria and nocturia. He has chronic back pain. Does have some activity intolerance due to his underlying cardiomyopathy. 3. Patient then was referred to Dr. Martin for urology oncology evaluation. On December 04, he performed a Transurethral resection of bladder tumor. This revealed a greater than 5 cm lobulated bladder tumor involving the right side of the bladder with blocking of the right ureteral orifice. There was also an erythematous sessile lesion measuring 1 cm on the left posterior wall. Dr. Martinperformed resection both of these tumors. After that, he did place a ureteral stent of the right ureter. 4. Surgical pathology report showed high-grade papillary carcinoma involving the right posterior bladder wall along with a benign left sessile lesion. Dr. Martin instilled intravesical gemcitabine chemotherapy at the conclusion of the case. Did have excellent hemostasis. 5. Patient has been referred to Medical Oncology I believe at the [facility]. He is seeking a 2nd opinion with us. Does complain of chronic paresthesia with shooting pains intermittentlyof the plantar surfaces of both feet. He was ejection fraction earlier this year was about 40%. It has improved with oral based therapy by his inspector elevators up to 50% based on patient's information. 6. January 04: Initial consultation with myself. I recommended combination of chemoradiation for his bladder cancer. 7. February 01 - March 01, 2024: Combined modality with radiation to the bladder neoplasm in combination with twice weekly gemcitabine 27 mg per m2 IV 8. February 24: ED presentation with abdominal pain with constipation. Patient was instructed to take MiraLax and Metamucil b.i.d. with prunes. This has slowly improved his bowel habits and function. CT scan of the abdomen pelvis with contrast shows no evidence of metastatic disease. Does not show ileus or bowel obstruction. He did have BPH along with diverticulitis and possibly colitis. Right ureteral stent is noted. Interval Notes: I have reviewed: allergies, current medications, past family history, past medical history, past social history, past surgical history, and problem list HPI Review of Systems Constitutional: Positive for fatigue. Negative for appetite change and chills. HENT: Positive for tinnitus. Eyes: Negative. Respiratory: Positive for shortness of breath. Cardiovascular: Negative. Positive for shortness of breath and peripheral swelling. Gastrointestinal: Positive for constipation. Endocrine: Negative. Genitourinary: Positive for dysuria, frequency, hematuria, nocturia and sexual dysfunction. Musculoskeletal: Positive for back pain. Skin: Negative. Neurological: Positive for dizziness. Hematological: Bruises/bleeds easily. Psychiatric/Behavioral: Negative. Pain: Positive for: chronic pain. Objective Physical Exam: Vital Signs for this encounter: BSA: 2.12 meters squared BP 118/75 (BP Location: Left arm) Pulse 60 Temp 36.8 ??C (98.2 ??F) (Oral) Resp 18 Wt 87.3 kg (192 lb 6.4 oz) Comment: no shoes SpO2 97% BMI 25.38 kg/m?? Physical Exam Vitals and nursing note reviewed. Constitutional: General: He is not in acute distress. Appearance: He is well-developed. HENT: Head: Normocephalic and atraumatic. Right Ear: External ear normal. Left Ear: External ear normal. Nose: Nose normal. Mouth/Throat: Pharynx: No oropharyngeal exudate. Eyes: General: No scleral icterus. Conjunctiva/sclera: Conjunctivae normal. Pupils: Pupils are equal, round, and reactive to light. Cardiovascular: Rate and Rhythm: Normal rate and regular rhythm. Heart sounds: Normal heart sounds. No murmur heard. Pulmonary: Effort: Pulmonary effort is normal. No respiratory distress. Breath sounds: Normal breath sounds. Abdominal: General: Bowel sounds are normal. Palpations: Abdomen is soft. Tenderness: There is no abdominal tenderness. Musculoskeletal: General: Normal range of motion. Cervical back: Normal range of motion and neck supple. Skin: General: Skin is warm and dry. Neurological: Mental Status: He is alert and oriented to person, place, and time. Psychiatric: Behavior: Behavior normal. Thought Content: Thought content normal. Judgment: Judgment normal. Performance Status: ECOG 0 Results: Lab Results Component Value Date WBC 7.6 03/01/2024 HGB 10.8 (L) 03/01/2024 HCT 31.6 (L) 03/01/2024 LABPLAT 267 03/01/2024 MCV 97.8 (H) 03/01/2024 NEUTROABS 5.6 03/01/2024 SODIUM 138 03/01/2024 POTASSIUM 3.8 03/01/2024 CHLORIDE 102 03/01/2024 BUNSER 17 03/01/2024 CREATININE 0.80 03/01/2024 GLUCOSE 119 03/01/2024 CALCIUM 9.1 03/01/2024 BILITOT 0.7 03/01/2024 PROT 7.3 03/01/2024 ALBUMIN 3.9 03/01/2024 ALKPHOS 76 03/01/2024 ALT 24 03/01/2024 AST 17 03/01/2024 T SERVICES AMBASSADOR documented in this encounter Plan of Treatment Scheduled Orders Name Type Priority Associated Diagnoses Orde r Schedule CBC with auto differential Lab Routine Anemia due to chemotherapy Expected: 04/19/2024, Expires: 03/01/2025 Comprehensive metabolic panel Lab Routine Anemia due to chemotherapy Expected: 04/19/2024, Expires: 03/01/2025 documented as of this encounter Visit Diagnoses Diagnosis Malignant neoplasm of ureteric orifice (HCC)- Primary Malignant neoplasm of ureteric orifice Malignant neoplasm of urinary bladder, unspecified site (HCC) 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 documented in this encounter Orders Appointment Requests Count Last Ordered Date Fi rst Ordered Date ONCBCN CLINIC APPOINTMENT REQUEST 2 024 ONCBCN LAB APPOINTMENT 1 03/01/2024 documented in this encounter Care Teams Museum Or Zoo Director Relationship Specialty Start Date End Date Nikky Reyes MD [address] [facility] [address] [place] [address] PCP - General Family Practice 12/15/23 Mitchell Martinez DO [address] [facility] [address] [place] [address] Medical Oncologist/Space Control Agent Hematology and Oncology 12/15/23 Kwaku Martin MD [address] [place] [address] Consulting Physician Urology 12/15/23 Richard Hargrove MD 14[address] [facility] [address] [place] [address] Radiation Oncologist Radiation Oncology 01/08/24 Adelso Quiñones [place] [address] [place] [address] Surgeon Urology 01/22/24 documented as of this encounter
--- OUTSIDE RECORDS SUMMARY | 2024-04-12 11:35 | XMS_ITS | Encounter Summary ---
Author Organization [facility] Healthcare Address [address] [place] [address] Care Team Providers Care Acid Cutter Name Role Phone Nikky Reyes MD Primary Care Provider Venkat Vivar DO Unavailable [phone] Kwaku Martin MD Unavailable [phone] Richard Hargrove MD Unavailable [phone] Adelso Quiñones MD Unavailable [phone] Reason for Visit * Reason Comments Chemotherapy * Episode Based Medications (Routine) - Closed Specialty Diagnoses / Procedures Referred By Leatha mejia Referred To Contact Diagnoses Encounter for person encountering health services Malignant neoplasm of urinary bladder, unspecified site (HCC) Venkat Vivar DO [facility] [address] Phone: tel: fax: [address] [address] Phone: tel: fax: Referral ID Status Reason Start Date Expiration Date Visits Re quested Visits Authorized [id number] Closed 01/05/2024 03/09/2024 1 70 Encounter Details Date Type Department Care Team ([facility] st Contact Info) Description 02/19/2024 11:45 AM NEIGHBORHOOD AIDE Infusion [facility] at [address] [place] [address] Malignant neoplasm of urinary bladder, unspecified site (HCC) (Primary Dx); Encounter for person encountering health services Social History Tobacco Use Types Packs/Day Years [...] on file Legal Sex Male 2:03 AM NEIGHBORHOOD AIDE Gender Identity Not on file Sexual Orientation Not on file Occupation Industry Job Start Date Job End Date Retired Not on file Not on file Not on file documented as of this encounter Last Filed Vital Signs Vital Sign Reading Time Taken Comments Blood Pressure 113/68 02/19/2024 11:27 AM NEIGHBORHOOD AIDE Pulse 42 02/19/2024 11:27 AM NEIGHBORHOOD AIDE Temperature 36.6 ??C (97.9 ??F) 02/19/2024 1 1:27 AM NEIGHBORHOOD AIDE Respiratory Rate 16 02/19/2024 11:2 5 AM NEIGHBORHOOD AIDE Oxygen Saturation 98% 02/19/2024 11: 27 AM NEIGHBORHOOD AIDE Inhaled Oxygen Concentration - - Weight 90.2 kg (198 lb 12.8 oz) 024 11:27 AM NEIGHBORHOOD AIDE with shoes Height - - Body Mass Index 26.63 2024 12:58 PM NEIGHBORHOOD AIDE documented in this encounter Nursing Notes * Beulah Chavez, RN - 02/19/2024 11:45 AM CST Oncology Nursing Note [facility] Venkat Aranda is a 74 y.o. male who presents for treatment Day 18 of Low-Dose Gemcitabine Induction. Pre-treatment Nursing Assessment Nursing Assessment LOC: Alert, Awake Constitutional: Fatigue (unchanged) Fatigue: Occassional Any falls since your last visit?: No Orientation: Oriented x4 Behavior: Calm Speech: Clear Language: No aphasia Peripheral Neuropathy: Yes (unchanged) Oral Mucosa Grade: Normal (0) Pt states has potential to be ?: N/A Shortness of Breath?: No Appetite: Good Nausea/Vomiting: Yes (meds help) Abdomen: Nausea Diarrhea: No Constipation: No Last BM Date: 02/19/24 Skin Condition/Temp: Warm, Dry Swelling: No Encounter Vitals BP: 113/68 (02/19/2024 11:27 AM) Pulse: (!) 42 (02/19/2024 11:27 AM) Resp: 16 (02/19/2024 11:25 AM) Temp: 36.6 ??C (97.9 ??F) (02/19/2024 11:27 AM) Temp src: Oral (02/19/2024 11:27 AM) SpO2: 98 % (02/19/2024 11:27 AM) Weight: 90.2 kg (198 lb 12.8 oz) (with shoes) (02/19/2024 11:27 AM) Pain Score: 0 - No pain Treatment Patient: met treatment parameters Pre blood return: Charlene Venkat Aranda tolerated treatment well. Patient was frequently observed and monitored throughout the administration of their treatment. Post blood return: Brisk IV access post infusion: NS; IV discontinued per protocol. Patient Education Treatment Education: Information/teaching given to patient including fall prevention, pain, signs and symptoms of infection, bleeding, adverse reaction, symptom management, process and procedure related to today's visit, when to notify MD, and other: Advised to call with any questions or concerns. Response: Verbalizes understanding Discharge Plan Discharge instructions given to patient. Future appointments given and reviewed with treatment plan. Discharge Mode: Ambulatory Accompanied by: Self Discharged To: Home HBORHOOD AIDE documented in this encounter Plan of Treatment Not on file documented as of this encounter Visit Diagnoses Diagnosis Malignant neoplasm of urinary bladder, unspecified site (HCC)- Primary Encounter for person encountering health services documented in this encounter Administered Medications Inactive Administered Medications - up to 3 most recent administrations Medication Order MAR Action Action Date Dose Rate Site gemcitabine (GEMZAR - J9201) 57 mg in sodium chloride 0.9% 50 mL IVPB 57 mg (rounded from 57.51 mg = 27 mg/m2 ? 2.13 m2 Treatment Plan BSA from Recorded weight), intravenous, at 119 mL/hr, Administer over 30 Minutes, Once, On Suzanne 02/19/24 at 1300, For 1 doseIndications:Encounter for person encountering health services,Malignant neoplasm of urinary bladder, unspecified site (HCC) New Bag 02/19/2024 12:56 PM NEIGHBORHOOD AIDE 57 mg 119 mL/hr granisetron (KYTRIL) injection 1 mg 1 mg, intravenous, Once, On Suzanne 02/19/24 at 1230, For 1 dose, IV administration over 30 secondsIndications:Encounter for person encountering health services,Malignant neoplasm of urinary bladder, unspecified site (HCC) Given 02/19/2024 12:03 PM NEIGHBORHOOD AIDE 1 mg documented in this encounter Orders Nursing Count Last Ordered Date First Orde red Date ONCBCN TREATMENT PARAMETERS 1 1 02/19/2024 Appointment Requests Count Last Ordered Date Fi rst Ordered Date ONCBCN RETURN CHEMO 1.5HRS 1 02/19/2024 documented in this encounter Care Teams Acid Cutter Relationship Specialty Start Date End Date Nikky Reyes MD [address] [place] [address] [address] [place] [address] PCP - General Family Practice 12/15/23 Venkat Vivar DO [address] [place] [address] [facility] [address] [place] [address] Medical Oncologist/Sailor Hematology and Oncology 12/15/23 Kwaku Martin MD [address] [place] [address] Consulting Physician Urology 12/15/23 Richard Hargrove MD [address] [place] [address] [address] [place], [place] [id number] Radiation Oncologist Radiation Oncology 01/08/24 Adelso Quiñ[place] [address] [address] Surgeon Urology 01/22/24 documented as of this encounter
--- OUTSIDE RECORDS SUMMARY | 2024-04-12 11:35 | XMS_ITS | Encounter Summary ---
Author Organization [facility] Healthcare Address [address] [place] [address] Care Team Providers Care Marine Service Operator Name Role Phone Nikky Reyes MD Primary Care Provider Venkat Vivar DO Unavailable [phone] Kwaku Martin MD Unavailable [phone] Richard Hargrove MD Unavailable [phone] Adelso Quiñones MD Unavailable [phone] Reason for Visit * Episode Based Medications (Routine) - Closed Specialty Diagnoses / Procedures Referred By Leatha t Referred To Contact Diagnoses Encounter for person encountering health services Malignant neoplasm of urinary bladder, unspecified site (HCC) Venkat Vivar, [address] [place] [address] Phone: tel: fax: [address] [address] Phone: tel: fax: Referral ID Status Reason Start Date Expiration Date Visits Re quested Visits Authorized [id number] Closed 01/05/2024 03/09/2024 1 70 Encounter Details Date Type Department Care Team ([facility] st Contact Info) Description 02/19/2024 11:00 AM WAGON DRILL OPERATOR Lab [facility] at [address] [address] Encounter for person encountering health services; Malignant [...] on file Legal Sex Male 2:03 AM WAGON DRILL OPERATOR Gender Identity Not on file Sexual Orientation Not on file Occupation Industry Job Start Date Job End Date Retired Not on file Not on file Not on file documented as of this encounter Plan of Treatment Not on file documented as of this encounter Procedures Procedure Name Priority Date/Time Associated Diagnosis Comments EGFR Routine 02/19/2024 11:23 AM WAGON DRILL OPERATOR Encounter for person encountering health services Malignant neoplasm of urinary bladder, unspecified site (HCC) DIFFERENTIAL AUTO Routine 02/19/2024 11: 23 AM WAGON DRILL OPERATOR Encounter for person encountering health services Malignant neoplasm of urinary bladder, unspecified site (HCC) CBC WITH AUTO DIFFERENTIAL Routine 02/19/2024 11:23 AM WAGON DRILL OPERATOR Encounter for person encountering health services Malignant neoplasm of urinary bladder, unspecified site (HCC) COMPREHENSIVE METABOLIC PANEL Routine 02/19/2024 11:23 AM WAGON DRILL OPERATOR Encounter for person encountering health services Malignant neoplasm of urinary bladder, unspecified site (HCC) documented in this encounter Results * eGFR (02/19/2024 11:23 AM WAGON DRILL OPERATOR) eGFR 89 >=60 mL/min/1. 73 m2 Comment: [...] was last reviewed 2021. Testing performed by: [address] [address] Blood 02/19/2024 11:2 3 AM WAGON DRILL OPERATOR 02/19/2024 11:26 AM WAGON DRILL OPERATOR Venkat Vivar DO LAB BLOOD ORDERABLES Final R esult JAIME [address] [facility] Department [place] [address] * (ABNORMAL) Differential, auto (02/19/2024 11:23 AM WAGON DRILL OPERATOR) Neutrophil abs 3.9 1.5 - 6.5 K/cumm Comment:Testing performed by : [address] [address] Imm gran abs 0.0 0.0 - 0.1 K/cumm [facility]IME [facility] Comment:Testing performed by : [address] [address] Lymphocyte abs 0.6(L) 0.8 - 3.3 K/cumm JAIME [facility]EDA Comment:Testing performed by : [address] [place]., [address] Monocyte abs 0.3 0.2 - 0.8 K/cumm [facility] Comment:Testing performed by : [address] [address] Eosinophil abs 0.2 0.0 - 0.5 K/cumm [facility] Comment:Testing performed by : [address] [address] Basophil abs 0.0 0.0 - 0.1 K/cumm [facility] Comment:Testing performed by : [address] [address] Neutrophil pct 78.4 % [facility] Comment: Interpretive Data Percent cell count reference ranges are not reported, since discordance with absolute values may lead to misinterpretation of CBC data. Current Interpretive Data was last revised on 2017. Testing performed by: [address] [address] Imm gran pct 0.4 % [facility] Comment: Interpretive Data Percent cell count reference ranges are not reported, since discordance with absolute values may lead to misinterpretation of CBC data. Current Interpretive Data was last revised on 2017. Testing performed by: [address] [address] Lymphocyte pct 11.4 % [facility] Comment: Interpretive Data Percent cell count reference ranges are not reported, since discordance with absolute values may lead to misinterpretation of CBC data. Current Interpretive Data was last revised on 2017. Testing performed by: [address] [address] Monocyte pct 6.2 % [facility] Comment: Interpretive Data Percent cell count reference ranges are not reported, since discordance with absolute values may lead to misinterpretation of CBC data. Current Interpretive Data was last revised on 2017. Testing performed by: [address] [address] Eosinophil pct 3.2 % [facility] Comment: Interpretive Data Percent cell count reference ranges are not reported, since discordance with absolute values may lead to misinterpretation of CBC data. Current Interpretive Data was last revised on 2017. Testing performed by: [address] [address] Basophil pct 0.4 % [facility] Comment: Interpretive Data Percent cell count reference ranges are not reported, since discordance with absolute values may lead to misinterpretation of CBC data. Current Interpretive Data was last revised on 2017. Testing performed by: [address] [address] Blood 02/19/2024 11:2 3 AM WAGON DRILL OPERATOR 02/19/2024 11:26 AM WAGON DRILL OPERATOR us Venkat Vivar DO LAB BLOOD ORDERABLES Final R esult JAIME [facility] Department [place] [address] * Comprehensive metabolic panel (02/19/2024 11:23 AM WAGON DRILL OPERATOR) Sodium 141 135 - 145 mmol/L Comment:Testing performed by : [address] [address] Potassium, pl 3.9 3.3 - 4.9 mmol/L JAIME Comment:Testing performed by : [address] [address] Chloride 103 97 - 110 mmol/L JAIME Comment:Testing performed by : [address] [address] CO2 28 22 - 32 mmol/L JAIME Comment:Testing performed by : [address] [address] Anion gap 10 2 - 15 mmol/L JAIME Comment:Testing performed by : [address] [address] BUN 12 6 - 25 mg/dL JAIME Comment:Testing performed by : [address] [address] Creatinine 0.90 0.80 - 1.30 mg/dL JAIME Comment:Testing performed by : [address] [address] Glucose 148 70 - 199 mg/dL JAIME [...] was last revised 2022. Testing performed by: [address] [address] Calcium 8.8 8.5 - 10.3 mg/dL JAIME Comment:Testing performed by : [address] [address] Bilirubin, total 0.6 0.1 - 1.2 mg/dL JAIME Comment:Testing performed by : [address] [address] Protein, pl 6.9 6.5 - 8.5 g/dL JAIME Comment:Testing performed by : [address] [address] Albumin 3.9 3.5 - 5.0 g/dL JAIME Comment:Testing performed by : [address] [address] Alk phos 74 40 - 130 Units/L JAIME Comment:Testing performed by : [address] [address] ALT 15 7 - 55 Units/L JAIME Comment:Testing performed by : [address] [address] AST 15 10 - 50 Units/L JAIME Comment:Testing performed by : [address] [address] Blood 02/19/2024 11:2 3 AM WAGON DRILL OPERATOR 02/19/2024 11:26 AM WAGON DRILL OPERATOR Venkat Vivar DO LAB BLOOD ORDERABLES Final R esult [facility] [address] [facility] Department [place] [address] * (ABNORMAL) CBC with auto differential (02/19/2024 11:23 AM WAGON DRILL OPERATOR) [facility] Signature WBC 5.0 3.8 - 9.9 K/cumm Comment:Testing performed by : [address] [address] Hgb 10.8(L) 13.0 - 17.5 g/dL JAIME Comment:Testing performed by : [address] [address] Hct 31.2(L) 38.9 - 50.3 % JAIME Comment:Testing performed by : [address] [address] Plt 88(L) 150 - 400 K/cumm JAIME Comment:Testing performed by : [address] [address] MPV 9.0(L) 9.1 - 12.3 fL JAIME Comment:Testing performed by : [address] [address] RBC 3.25(L) 4.30 - 5.80 M/cumm JAIME Comment:Testing performed by : [address] [address] MCV 96.0 81.3 - 96.4 fL JAIME Comment:Testing performed by : [address] [address] MCH 33.2 27.1 - 33.3 pg JAIME Comment:Testing performed by : [address] [address] MCHC 34.6 32.3 - 35.7 g/dL JAIME Comment:Testing performed by : [address] [address] RDW CV 14.6 11.1 - 14.9 % JAIME Comment:Testing performed by : [address], [address] RDW SD 49.1(H) 35.7 - 48.1 fL [facility] Comment:Testing performed by : [facility], [address] [place] [address]., [address] NRBC abs 0.00 0.00 - 0.01 K/cumm JAMIE [facility]A Comment:Testing performed by : [facility], [address] [place] [address]., [address] Blood 02/19/2024 11:2 3 AM WAGON DRILL OPERATOR 02/19/2024 11:26 AM WAGON DRILL OPERATOR us Venkat Vivar DO LAB BLOOD ORDERABLES Final R esult JAIME [facility] [address] [facility] Department [place] [address] documented in this encounter Visit Diagnoses Diagnosis Encounter for person encountering health services Malignant neoplasm of urinary bladder, unspecified site (HCC) documented in this encounter Orders Appointment Requests Count Last Ordered Date Fi rst Ordered Date ONCBCN LAB APPOINTMENT 1 02/19/2024 documented in this encounter Care Teams Marine Service Operator Relationship Specialty Start Date End Date Nikky Reyes MD [facility] [address] [place], [place] [id number] PCP - General Family Practice 12/15/23 Venkat Vivar DO [address] [place] [address] MEDICAL ONCOLOGY, [facility] [address] [place], [place] [address] Medical Oncologist/Environmental Science Program Director Hematology and Oncology 12/15/23 Kwaku Martin MD [address] [place] [address] Consulting Physician Urology 12/15/23 Richard Hargrove MD [address] [place] [address] [address] [place], [place] [id number] Radiation Oncologist Radiation Oncology 01/08/24 Adelso Quiñones [place] [address] [place] [address] Surgeon Urology 01/22/24 documented as of this encounter
--- OUTSIDE RECORDS SUMMARY | 2024-04-12 11:35 | XMS_ITS | Encounter Summary ---
Author Organization [facility] Healthcare Address [address] [place] [address] Care Team Providers Care Foundation Drill Operator Name Role Phone Nikky Reyes MD Primary Care Provider Venkat Vivar DO Unavailable [phone] Kwaku Martin MD Unavailable [phone] Richard Hargrove MD Unavailable [phone] Adelso Quiñones MD Unavailable [phone] Encounter Details Date Type Department Care Team (Late st Contact Info) Description 02/19/2024 9:30 AM FIELD PRODUCER Treatment [facility] Medical Office Building 2 Radiation Oncology [address] [place] [address] Social History Tobacco Use Types Packs/Day Years [...] on file Legal Sex Male 2:03 AM FIELD PRODUCER Gender Identity Not on file Sexual Orientation Not on file Occupation Industry Job Start Date Job End Date Retired Not on file Not on file Not on file documented as of this encounter Plan of Treatment Not on file documented as of this encounter Visit Diagnoses Not on filedocumented in this encounter Care Teams Foundation Drill Operator Relationship Specialty Start Date End Date Nikky Reyes MD [address] [facility] [address] [place] [address] PCP - General Family Practice 12/15/23 [place] [address] [place] [address] MEDICAL ONCOLOGY, [facility] [address] [place] [address] Medical Oncologist/Skiver [employer] Hematology and Oncology 12/15/23 Kwaku Martin MD [address] [place] [address] Consulting Physician Urology 12/15/23 [place] [address] [place] [address] [address] [place] [address] Radiation Oncologist Radiation Oncology 01/08/24 Adelso Quiñones [place] [address] [place] [address] Surgeon Urology 01/22/24 documented as of this encounter
--- OUTSIDE RECORDS SUMMARY | 2024-04-12 11:35 | XMS_ITS | Encounter Summary ---
Author Organization [facility] Healthcare Address [address] [place] [address] Care Team Providers Care Body Make Up Artist Name Role Phone Nikky Reyes MD Primary Care Provider Venkat Vivar DO Unavailable [phone] Kwaku Martin MD Unavailable [phone] Richard Hargrove MD Unavailable [phone] Adelso Quiñones MD Unavailable [phone] Encounter Details Date Type Department Care Team (Late st Contact Info) Description 03/01/2024 9:30 AM CAR GREASER Treatment [facility] Medical Office Building 2 Radiation Oncology [address] [place], [place] [id number] Richard Hargrove MD [address] [place] [address] Social History Tobacco Use Types Packs/Day Years [...] on file Legal Sex Male 2:03 AM CAR GREASER Gender Identity Not on file Sexual Orientation Not on file Occupation Industry Job Start Date Job End Date Retired Not on file Not on file Not on file documented as of this encounter Plan of Treatment Not on file documented as of this encounter Visit Diagnoses Not on filedocumented in this encounter Care Teams Body Make Up Artist Relationship Specialty Start Date End Date Nikky Reyes MD [address] [facility] [address] [place] [address] PCP - General Family Practice 12/15/23 Venkat Vivar DO [address] [facility] MEDICAL ONCOLOGY, [facility] [address] [place] [address] Medical Oncologist/Director Of Hotel Operations Hematology and Oncology 12/15/23 Kwaku Martin MD [address] [place] [address] Consulting Physician Urology 12/15/23 [place] [address] [place] [address] 160 [place] [address] Radiation Oncologist Radiation Oncology 01/08/24 Adelso Quiñones [place] [address] [address] [place] [address] Surgeon Urology 01/22/24 documented as of this encounter
--- OUTSIDE RECORDS SUMMARY | 2024-04-12 11:35 | XMS_ITS | Encounter Summary ---
Author Organization [facility] Healthcare Address [address] [place] [address] Care Team Providers Care Data Analysis Assistant Name Role Phone Nikky Reyes MD Primary Care Provider Venkat Vivar DO Unavailable [phone] Kwaku Martin MD Unavailable [phone] Richard Hargrove MD Unavailable [phone] Adelso Quiñones MD Unavailable [phone] Reason for Visit * Episode Based Medications (Routine) - Closed Specialty Diagnoses / Procedures Referred By Leatha t Referred To Contact Diagnoses Encounter for person encountering health services Malignant neoplasm of urinary bladder, unspecified site (HCC) Venkat Vivar, [address] [place] [address] Phone: tel: fax: [address] [address] Phone: tel: fax: Referral ID Status Reason Start Date Expiration Date Visits Re quested Visits Authorized [id number] Closed 01/05/2024 03/09/2024 1 70 Encounter Details Date Type Department Care Team ([facility] st Contact Info) Description 02/16/2024 7:30 AM VICE PRESIDENT MEDIA RELATIONS Lab [facility] at [address] [address] Encounter for person encountering health services; Malignant [...] on file Legal Sex Male 2:03 AM VICE PRESIDENT MEDIA RELATIONS Gender Identity Not on file Sexual Orientation Not on file Occupation Industry Job Start Date Job End Date Retired Not on file Not on file Not on file documented as of this encounter Plan of Treatment Not on file documented as of this encounter Procedures Procedure Name Priority Date/Time Associated Diagnosis Comments EGFR Routine 02/16/2024 7:36 AM VICE PRESIDENT MEDIA RELATIONS Encounter for person encountering health services Malignant neoplasm of urinary bladder, unspecified site (HCC) DIFFERENTIAL AUTO Routine 02/16/2024 7:3 6 AM VICE PRESIDENT MEDIA RELATIONS Encounter for person encountering health services Malignant neoplasm of urinary bladder, unspecified site (HCC) CBC WITH AUTO DIFFERENTIAL Routine 02/16/2024 7:36 AM VICE PRESIDENT MEDIA RELATIONS Encounter for person encountering health services Malignant neoplasm of urinary bladder, unspecified site (HCC) COMPREHENSIVE METABOLIC PANEL Routine 02/16/2024 7:36 AM VICE PRESIDENT MEDIA RELATIONS Encounter for person encountering health services Malignant neoplasm of urinary bladder, unspecified site (HCC) documented in this encounter Results * eGFR (02/16/2024 7:36 AM VICE PRESIDENT MEDIA RELATIONS) eGFR 78 >=60 mL/min/1. 73 m2 Comment: [...] was last reviewed 2021. Testing performed by: [address] [address] Blood 02/16/2024 7:36 AM VICE PRESIDENT MEDIA RELATIONS 02/16/2024 7:42 AM VICE PRESIDENT MEDIA RELATIONS us Venkat Vivar DO LAB BLOOD ORDERABLES Final R esult [facility] [address] [facility] [place] [address] * Differential, auto (02/16/2024 7:36 AM VICE PRESIDENT MEDIA RELATIONS) Neutrophil abs 4.2 1.5 - 6.5 K/cumm Comment:Testing performed by : [address] [address] Imm gran abs 0.0 0.0 - 0.1 K/cumm JAIME PINEDA Comment:Testing performed by : [address] [address] Lymphocyte abs 0.9 0.8 - 3.3 K/cumm JAIME Comment:Testing performed by : [address] [address] Monocyte abs 0.3 0.2 - 0.8 K/cumm [facility] Comment:Testing performed by : [address] [address] Eosinophil abs 0.2 0.0 - 0.5 K/cumm [facility] Comment:Testing performed by : [address] [address] Basophil abs 0.0 0.0 - 0.1 K/cumm [facility] Comment:Testing performed by : [address] [address] Neutrophil pct 75.3 % [facility] Comment: Interpretive Data Percent cell count reference ranges are not reported, since discordance with absolute values may lead to misinterpretation of CBC data. Current Interpretive Data was last revised on 2017. Testing performed by: [address] [address] Imm gran pct 0.4 % [facility] Comment: Interpretive Data Percent cell count reference ranges are not reported, since discordance with absolute values may lead to misinterpretation of CBC data. Current Interpretive Data was last revised on 2017. Testing performed by: [address] [address] Lymphocyte pct 16.0 % [facility] Comment: Interpretive Data Percent cell count reference ranges are not reported, since discordance with absolute values may lead to misinterpretation of CBC data. Current Interpretive Data was last revised on 2017. Testing performed by: [address] [address] Monocyte pct 5.2 % [facility] Comment: Interpretive Data Percent cell count reference ranges are not reported, since discordance with absolute values may lead to misinterpretation of CBC data. Current Interpretive Data was last revised on 2017. Testing performed by: [address] [address] Eosinophil pct 2.7 % [facility] Comment: Interpretive Data Percent cell count reference ranges are not reported, since discordance with absolute values may lead to misinterpretation of CBC data. Current Interpretive Data was last revised on 2017. Testing performed by: [address] [address] Basophil pct 0.4 % JAIME Comment: Interpretive Data Percent cell count reference ranges are not reported, since discordance with absolute values may lead to misinterpretation of CBC data. Current Interpretive Data was last revised on 2017. Testing performed by: [address] [address] Blood 02/16/2024 7:36 AM VICE PRESIDENT MEDIA RELATIONS 02/16/2024 7:42 AM VICE PRESIDENT MEDIA RELATIONS us Venkat Vivar DO LAB BLOOD ORDERABLES Final R esult JAIME [address] [facility] Department [place] [address] * Comprehensive metabolic panel (02/16/2024 7:36 AM VICE PRESIDENT MEDIA RELATIONS) Sodium 142 135 - 145 mmol/L Comment:Testing performed by : [address] [address] Potassium, pl 4.2 3.3 - 4.9 mmol/L JAIME Comment:Testing performed by : [address] [address] Chloride 105 97 - 110 mmol/L JAIME Comment:Testing performed by : [address] [address] CO2 28 22 - 32 mmol/L JAIME Comment:Testing performed by : [address] [address] Anion gap 9 2 - 15 mmol/L JAIME Comment:Testing performed by : [address] [address] BUN 15 6 - 25 mg/dL JAIME Comment:Testing performed by : [address] [address] Creatinine 1.00 0.80 - 1.30 mg/dL JAIME Comment:Testing performed by : [address] [address] Glucose 111 70 - 199 mg/dL JAIME [...] was last revised 2022. Testing performed by: [address] [address] Calcium 8.9 8.5 - 10.3 mg/dL JAIME Comment:Testing performed by : [address] [address] Bilirubin, total 0.7 0.1 - 1.2 mg/dL JAIME Comment:Testing performed by : [address] [address] Protein, pl 7.2 6.5 - 8.5 g/dL JAIME Comment:Testing performed by : [address] [address] Albumin 3.9 3.5 - 5.0 g/dL JAIME Comment:Testing performed by : [address] [address] Alk phos 73 40 - 130 Units/L JAIME Comment:Testing performed by : [address] [address] ALT 16 7 - 55 Units/L JAIME Comment:Testing performed by : [address] [address] AST 16 10 - 50 Units/L JAIME Comment:Testing performed by : [address] [address] Blood 02/16/2024 7:36 AM VICE PRESIDENT MEDIA RELATIONS 02/16/2024 7:42 AM VICE PRESIDENT MEDIA RELATIONS us Venkat Vivar DO LAB BLOOD ORDERABLES Final R esult JAIME [address] [facility] Department [place] [address] * (ABNORMAL) CBC with auto differential (02/16/2024 7:36 AM VICE PRESIDENT MEDIA RELATIONS) [facility] Signature WBC 5.6 3.8 - 9.9 K/cumm Comment:Testing performed by : [address] [address] Hgb 11.5(L) 13.0 - 17.5 g/dL JAIME Comment:Testing performed by : [address] [address] Hct 33.3(L) 38.9 - 50.3 % JAIME Comment:Testing performed by : [address] [address] Plt 97(L) 150 - 400 K/cumm JAIME Comment:Testing performed by : [address] [address] MPV 9.1 9.1 - 12.3 fL JAIME Comment:Testing performed by : [address] [address] RBC 3.48(L) 4.30 - 5.80 M/cumm JAIME Comment:Testing performed by : [address] [address] MCV 95.7 81.3 - 96.4 fL JAIME Comment:Testing performed by : [address] [address] MCH 33.0 27.1 - 33.3 pg JAIME Comment:Testing performed by : [address] [address] MCHC 34.5 32.3 - 35.7 g/dL JAIME Comment:Testing performed by : [address], [address] RDW CV 14.3 11.1 - 14.9 % JAIME Comment:Testing performed by : [address] [address] RDW SD 47.7 35.7 - 48.1 fL JAIME Comment:Testing performed by : [facility], [address] [place] [address]., [address] NRBC abs 0.00 0.00 - 0.01 K/cumm JAIME Comment:Testing performed by : [facility], [address] [place] [address]., [address] Blood 02/16/2024 7:36 AM VICE PRESIDENT MEDIA RELATIONS 02/16/2024 7:42 AM VICE PRESIDENT MEDIA RELATIONS Venkat Vivar DO LAB BLOOD ORDERABLES Final R esult JAIME [address] [facility] [place] [address] documented in this encounter Visit Diagnoses Diagnosis Encounter for person encountering health services Malignant neoplasm of urinary bladder, unspecified site (HCC) documented in this encounter Orders Appointment Requests Count Last Ordered Date Fi rst Ordered Date ONCBCN LAB APPOINTMENT 1 02/16/2024 documented in this encounter Care Teams Data Analysis Assistant Relationship Specialty Start Date End Date Nikky Reyes MD [address] [facility] 2 [place] [address] PCP - General Family Practice 12/15/23 Venkat Vivar DO [address] [place] [address] MEDICAL ONCOLOGY, [facility] [address] [place], [place] [address] Medical Oncologist/Florist Designer Hematology and Oncology 12/15/23 Kwaku Martin MD [address] [place] [address] Consulting Physician Urology 12/15/23 Richard Hargrove MD [address] [place] [address] [address] [place], [place] [address] Radiation Oncologist Radiation Oncology 01/08/24 Adelso Quiñones [place] [address] [place] [address] Surgeon Urology 01/22/24 documented as of this encounter
--- OUTSIDE RECORDS SUMMARY | 2024-04-12 11:35 | XMS_ITS | Encounter Summary ---
Author Organization [facility] Address [address] [place] [address] Phone Care Team Providers Care Crown Pouncer Name Role Phone Nikky Reyes MD Primary Care Provider Venkat Vivar DO Unavailable Kwaku Martin MD Unavailable [phone] Richard Hargrove MD Unavailable [phone] Adelso Quiñones MD Unavailable [phone] Encounter Details Date Type Department Care Team (Late st Contact Info) Description 02/22/2024 Orders Only [facility] Oncology [address] [facility] [address] [place] [address] Venkat Vivar DO 14[address] [facility] [address] [place] [address] Social History Tobacco Use Types Packs/Day Years [...] on file Legal Sex Male 2:03 AM MANAGER TRADING Gender Identity Not on file Sexual Orientation Not on file Occupation Industry Job Start Date Job End Date Retired Not on file Not on file Not on file documented as of this encounter Plan of Treatment Not on file documented as of this encounter Visit Diagnoses Not on filedocumented in this encounter Care Teams Crown Pouncer Relationship Specialty Start Date End Date Nikky Reyes MD 3417 [facility] [place] 2 [place], [place] [id number] PCP - General Family Practice 12/15/23 Venkat Vivar DO 1418 [facility] MEDICAL ONCOLOGY, [facility] 180 [place] [address] Medical Oncologist/Customer Service Specialist Hematology and Oncology 12/15/23 Kwaku Martin MD 1 [place] [address] Consulting Physician Urology 12/15/23 Richard Hargrove MD 1418 [facility] 160 [place] [address] Radiation Oncologist Radiation Oncology 01/08/24 Adelso Quiñones [place] [address] [facility] [address] [place] [address] Surgeon Urology 01/22/24 documented as of this encounter
--- OUTSIDE RECORDS SUMMARY | 2024-04-12 11:35 | XMS_ITS | Encounter Summary ---
Author Organization [facility] Healthcare Address [address] [place] [address] Care Team Providers Care Real Estate Administrator Name Role Phone Nikky Reyes MD Primary Care Provider Venkat Vivar DO Unavailable [phone] Kwaku Martin MD Unavailable [phone] Richard Hargrove MD Unavailable [phone] Adelso Quiñones MD Unavailable [phone] Encounter Details Date Type Department Care Team (Late st Contact Info) Description 02/22/2024 9:30 AM FOREST ENGINEER Treatment [facility] Medical Office Building 2 Radiation Oncology [address] [place] [address] Social History Tobacco Use Types Packs/Day Years [...] on file Legal Sex Male 2:03 AM FOREST ENGINEER Gender Identity Not on file Sexual Orientation Not on file Occupation Industry Job Start Date Job End Date Retired Not on file Not on file Not on file documented as of this encounter Plan of Treatment Not on file documented as of this encounter Visit Diagnoses Not on filedocumented in this encounter Care Teams Real Estate Administrator Relationship Specialty Start Date End Date Nikky Reyes MD [address] [facility] [place] [address] [place], [place] [phone] PCP - General Family Practice 12/15/23 Venkat Vivar DO 1418 [facility] MEDICAL ONCOLOGY, [facility] 180 [place] [address] Medical Oncologist/Storage Battery Inspector And Tester Hematology and Oncology 12/15/23 Kwaku Martin MD 1 [place] [address] Consulting Physician Urology 12/15/23 Richard Hargrove MD 1418 [facility] 160 [place], [place] [address] Radiation Oncologist Radiation Oncology 01/08/24 Adelso Quiñones [place] [address] [place] [address] Surgeon Urology 01/22/24 documented as of this encounter
--- OUTSIDE RECORDS SUMMARY | 2024-04-12 11:35 | XMS_ITS | Encounter Summary ---
Author Organization [facility] Healthcare Address [address] [place] [address] Care Team Providers Care Lumpia Wrapper Maker Name Role Phone Nikky Reyes MD Primary Care Provider Venkat Vivar DO Unavailable [phone] Kwaku Martin MD Unavailable [phone] Richard Hargrove MD Unavailable [phone] Adelso Quiñones MD Unavailable [phone] Reason for Visit * Episode Based Medications (Routine) - Closed Specialty Diagnoses / Procedures Referred By Leatha t Referred To Contact Diagnoses Encounter for person encountering health services Malignant neoplasm of urinary bladder, unspecified site (HCC) Venkat Vivar, [address] [place] [address] Phone: tel: fax: [address] [address] Phone: tel: fax: Referral ID Status Reason Start Date Expiration Date Visits Re quested Visits Authorized [id number] Closed 01/05/2024 03/09/2024 1 70 Encounter Details Date Type Department Care Team ([facility] st Contact Info) Description 02/23/2024 11:00 AM ASSESSMENT CLINICIAN Infusion [facility] at [address] [address] Malignant neoplasm of urinary bladder, unspecified [...] on file Legal Sex Male 2:03 AM ASSESSMENT CLINICIAN Gender Identity Not on file Sexual Orientation Not on file Occupation Industry Job Start Date Job End Date Retired Not on file Not on file Not on file documented as of this encounter Last Filed Vital Signs Vital Sign Reading Time Taken Comments Blood Pressure 120/64 02/23/2024 11:11 AM ASSESSMENT CLINICIAN Pulse 78 02/23/2024 11:11 AM ASSESSMENT CLINICIAN Temperature 36.3 ??C (97.3 ??F) 02/23/2024 1 1:11 AM ASSESSMENT CLINICIAN Respiratory Rate 16 02/23/2024 11:1 1 AM ASSESSMENT CLINICIAN Oxygen Saturation 97% 02/23/2024 11: 11 AM ASSESSMENT CLINICIAN Inhaled Oxygen Concentration - - Weight 87.9 kg (193 lb 12.8 oz) 024 11:11 AM ASSESSMENT CLINICIAN Height - - Body Mass Index 25.96 2024 12:58 PM ASSESSMENT CLINICIAN documented in this encounter Nursing Notes * Haley Gayle RN - 02/23/2024 11:00 AM CST Oncology Nursing Note [facility] Venkat Aranda is a 74 y.o. male who presents for treatment cycle 1, day 22 of Gemzar. Pre-treatment Nursing Assessment Nursing Assessment LOC: Alert, Awake Constitutional: Fatigue Fatigue: Occassional Any falls since your last visit?: No Orientation: Oriented x4 Behavior: Calm Language: No aphasia Vision: At baseline Peripheral Neuropathy: Yes (slight) Pt states has potential to be ?: N/A Shortness of Breath?: No Appetite: Good Diarrhea: No Constipation: Yes (taking stool softeners, encouraged miralax use as needed) Last BM Date: 02/22/24 Skin Condition/Temp: Dry, Warm Swelling: No Additional Notes: Encounter Vitals BP: 120/64 (02/23/2024 11:11 AM) Pulse: 78 (02/23/2024 11:11 AM) Resp: 16 (02/23/2024 11:11 AM) Temp: 36.3 ??C (97.3 ??F) (02/23/2024 11:11 AM) Temp src: Oral (02/23/2024 11:11 AM) SpO2: 97 % (02/23/2024 11:11 AM) Weight: 87.9 kg (193 lb 12.8 oz) (02/23/2024 11:11 AM) Pain Score: Zero (02/23/2024 9:51 AM) Treatment Patient: met treatment parameters Pre blood return: Charlene Aranda tolerated treatment well. Patient was frequently observed and monitored throughout the administration of their treatment. Additional Notes: Post blood return: Brisk IV access post infusion: NS Patient Education Treatment Education: Information/teaching given to patient including fall prevention, pain, signs and symptoms of infection, adverse reaction, symptom management, and process and procedure related totoday's visit Response: Verbalizes understanding Discharge Plan Discharge instructions given to patient. Future appointments given and reviewed with treatment plan. Discharge Mode: Ambulatory Accompanied by: Self Discharged To: Home SSMENT CLINICIAN documented in this encounter Plan of Treatment [...] mL/hr, Administer over 30 Minutes, Once, On 02/23/24 at 1230, For 1 doseIndications:Encounter for person encountering health services,Malignant neoplasm of urinary bladder, unspecified site (HCC) New Bag 02/23/2024 11:36 AM ASSESSMENT CLINICIAN 57 mg 119 mL/hr granisetron (KYTRIL) injection 1 mg 1 mg, intravenous, Once, On 02/23/24 at 1200, For 1 dose, IV administration over 30 secondsIndications:Encounter for person encountering health services,Malignant neoplasm of urinary bladder, unspecified site (HCC) Given 02/23/2024 11:25 AM ASSESSMENT CLINICIAN 1 mg documented in this encounter Orders Nursing Count Last Ordered Date First Orde red Date ONCBCN TREATMENT PARAMETERS 1 1 02/23/2024 Appointment Requests Count Last Ordered Date Fi rst Ordered Date ONCBCN RETURN CHEMO 1.5HRS 1 02/23/2024 documented in this encounter Care Teams Lumpia Wrapper Maker Relationship Specialty Start Date End Date Nikky Reyes MD [facility] [address] [place], [place] [id number] PCP - General Family Practice 12/15/23 Venkat Vivar DO 1418 [facility] MEDICAL ONCOLOGY, [facility] 180 [place] [address] Medical Oncologist/Metal Hanging Supervisor Hematology and Oncology 12/15/23 Kwaku Martin MD 1 [place] [address] Consulting Physician Urology 12/15/23 Richard Hargrove MD [address] [facility] 160 [place], [place] [address] Radiation Oncologist Radiation Oncology 01/08/24 Adelso Quiñones [place] [address] [place] [address] Surgeon Urology 01/22/24 documented as of this encounter
--- OUTSIDE RECORDS SUMMARY | 2024-04-12 11:35 | XMS_ITS | Encounter Summary ---
Author Organization [facility] Healthcare Address [address] [place] [address] Care Team Providers Care Grain Unloader Machine Name Role Phone Nikky Reyes MD Primary Care Provider Venkat Vivar DO Unavailable [phone] Kwaku Matrin MD Unavailable [phone] Richard Hargrove MD Unavailable [phone] Adelso Quiñones MD Unavailable [phone] Encounter Details Date Type Department Care Team (Late st Contact Info) Description 02/24/2024 9:30 AM MEDICAL IMAGING DIRECTOR Treatment [facility] Medical Office Building 2 Radiation Oncology [address] [place] [address] Social History Tobacco Use Types Packs/Day Years [...] on file Legal Sex Male 2:03 AM MEDICAL IMAGING DIRECTOR Gender Identity Not on file Sexual Orientation Not on file Occupation Industry Job Start Date Job End Date Retired Not on file Not on file Not on file documented as of this encounter Plan of Treatment Not on file documented as of this encounter Visit Diagnoses Not on filedocumented in this encounter Care Teams Grain Unloader Machine Relationship Specialty Start Date End Date Nikky Reyes MD [address] [facility] [place] [place] [address] [place], [place] [address] PCP - General Family Practice 12/15/23 Venkat Vivar DO 1418 [facility] MEDICAL ONCOLOGY, [facility] 180 [place] [address] Medical Oncologist/Lpn Medical Assistant Hematology and Oncology 12/15/23 Kwaku Martin MD 1 [place] [address] Consulting Physician Urology 12/15/23 Richard Hargrove MD 1418 [facility] 160 [place], [place] [address] Radiation Oncologist Radiation Oncology 01/08/24 Adelso Quiñones [place] [address] [place] [address] Surgeon Urology 01/22/24 documented as of this encounter
--- OUTSIDE RECORDS SUMMARY | 2024-04-12 11:35 | XMS_ITS | Encounter Summary ---
Author Organization [facility] Address [address] [place] [address] Phone Care Team Providers Care Facilities Painter Name Role Phone Nikky Reyes MD Primary Care Provider Venkat Vivar DO Unavailable Kwaku Martin MD Unavailable [phone] Richard Hargrove MD Unavailable [phone] Adelso Quiñones MD Unavailable [phone] Encounter Details Date Type Department Care Team (Late st Contact Info) Description 02/18/2024 Orders Only [facility] Oncology [address] [facility] [address] [place] [phone] Venkat Vivar DO [address] [facility] [address] [place] [address] Social History Tobacco Use Types [...] on file Legal Sex Male 2:03 AM WIRELESS FIELD TECHNICIAN Gender Identity Not on file Sexual Orientation Not on file Occupation Industry Job Start Date Job End Date Retired Not on file Not on file Not on file documented as of this encounter Plan of Treatment Not on file documented as of this encounter Visit Diagnoses Not on filedocumented in this encounter Care Teams Facilities Painter Relationship Specialty Start Date End Date Nikky Reyes MD [address] [facility] [address] [place] [address] PCP - General Family Practice 12/15/23 Venkat Vivar DO [address] [place] [address] [facility] 180 [place] [address] Medical Oncologist/Fermenter Operator Hematology and Oncology 12/15/23 Kwaku Martin MD [address] [place] [address] Consulting Physician Urology 12/15/23 Richard Hargrove MD [address] [place] [address] 160 [place] [address] Radiation Oncologist Radiation Oncology 01/08/24 Adelso Quiñones [place] [address] [address] [place] [address] Surgeon Urology 01/22/24 documented as of this encounter
--- OUTSIDE RECORDS SUMMARY | 2024-04-12 11:35 | XMS_ITS | Encounter Summary ---
Author Organization [facility] Healthcare Address [address] [place] [address] Care Team Providers Care Automobile Mechanic Motor Name Role Phone Nikky Reyes MD Primary Care Provider Venkat Vivar DO Unavailable [phone] Kwaku Martin MD Unavailable [phone] Richard Hargrove MD Unavailable [phone] Adelso Quiñones MD Unavailable [phone] Encounter Details Date Type Department Care Team (Late st Contact Info) Description 02/16/2024 Orders Only RAD ONC TREATMENTS Miscellaneous, [...] on file Legal Sex Male 2:03 AM BEVERAGE HOST Gender Identity Not on file Sexual Orientation Not on file Occupation Industry Job Start Date Job End Date Retired Not on file Not on file Not on file documented as of this encounter Plan of Treatment Not on file documented as of this encounter Procedures Procedure Name Priority Date/Time Associated Diagnosis Comments RAD ONC ARIA SESSION SUMMARY 02/16/2024 11:16 AM BEVERAGE HOST documented in this encounter Results * RAD ONC ARIA SESSION SUMMARY (02/16/2024 11:16 AM BEVERAGE HOST) Course Name [email or web address]_ 2023 ARIA Course Plan Date 01/22/2024 3:44 PM ARIA Elapsed Days 14 ARIA Treatment Start Date 2024 ARIA Treatment Site BLADDER ARIA Dose Given To Date (cGy) 3,025 ARIA Session Dosage Given (cGy) 275 ARIA Plan ID BLADDER ARIA Fractions Treated 11 ARIA Prescribed Dose Per Fraction (cGy) 275 ARIA Prescribed Total Dose (cGy) 5,500 ARIA 02/16/2024 11:1 6 AM BEVERAGE HOST us Not In File Miscellaneous RADIATION ONCOLOGY ORD ERABLES Final Result ARIA documented in this encounter Visit Diagnoses Not on filedocumented in this encounter Care Teams Automobile Mechanic Motor Relationship Specialty Start Date End Date Nikky Reyes MD [address] [facility] 2 [place] [address] PCP - General Family Practice 12/15/23 Venkat Vivar DO 1418 [facility] MEDICAL ONCOLOGY, [facility] 180 [place], [place] [id number] Medical Oncologist/Geothermal Powerplant Mechanic Hematology and Oncology 12/15/23 Kwaku Martin MD [address] [place] [address] Consulting Physician Urology 12/15/23 Richard Hargrove MD 1418 [facility] 160 [place], [place] [phone] Radiation Oncologist Radiation Oncology 01/08/24 Adelso Quiñones [place] [address] [place] [address] Surgeon Urology 01/22/24 documented as of this encounter
--- OUTSIDE RECORDS SUMMARY | 2024-04-12 11:35 | XMS_ITS | Encounter Summary ---
Author Organization [facility] Healthcare Address [address] [place] [address] Care Team Providers Care Radioisotope Technician Name Role Phone Nikky Reyes MD Primary Care Provider Venkat Vivar DO Unavailable [phone] Kwaku Martin MD Unavailable [phone] Richard Hargrove MD Unavailable [phone] Adelso Quiñones MD Unavailable [phone] Encounter Details Date Type Department Care Team (Late st Contact Info) Description 02/25/2024 Orders Only RAD ONC TREATMENTS Miscellaneous, [...] on file Legal Sex Male 2:03 AM TRANSMISSION SYSTEMS OPERATOR Gender Identity Not on file Sexual Orientation Not on file Occupation Industry Job Start Date Job End Date Retired Not on file Not on file Not on file documented as of this encounter Plan of Treatment Not on file documented as of this encounter Procedures Procedure Name Priority Date/Time Associated Diagnosis Comments RAD ONC ARIA SESSION SUMMARY 02/25/2024 9:45 AM TRANSMISSION SYSTEMS OPERATOR documented in this encounter Results * RAD ONC ARIA SESSION SUMMARY (02/25/2024 9:45 AM TRANSMISSION SYSTEMS OPERATOR) Course Name [email or web address]_BLADDER_ 2023 ARIA Course Plan Date 01/22/2024 3:44 PM ARIA Elapsed Days 23 ARIA Treatment Start Date 2024 ARIA Treatment Site BLADDER ARIA Dose Given To Date (cGy) 5,225 ARIA Session Dosage Given (cGy) 275 ARIA Plan ID BLADDER ARIA Fractions Treated 19 ARIA Prescribed Dose Per Fraction (cGy) 275 ARIA Prescribed Total Dose (cGy) 5,500 ARIA 02/25/2024 9:45 AM TRANSMISSION SYSTEMS OPERATOR us Not In File Miscellaneous RADIATION ONCOLOGY ORD ERABLES Final Result ARIA documented in this encounter Visit Diagnoses Not on filedocumented in this encounter Care Teams Radioisotope Technician Relationship Specialty Start Date End Date Nikky Reyes MD [address] [place] [address] 2 [place] [address] PCP - General Family Practice 12/15/23 [place] [address] [place] [address] MEDICAL ONCOLOGY, [facility] 180 [place], [place] [id number] Medical Oncologist/Early Morning Hematology and Oncology 12/15/23 Kwaku Martin MD 1 [place] [address] Consulting Physician Urology 12/15/23 Richard Hargrove MD [address] [address] Radiation Oncologist Radiation Oncology 01/08/24 Adelso Quiñones [place] [address] [place] [address] Surgeon Urology 01/22/24 documented as of this encounter
--- OUTSIDE RECORDS SUMMARY | 2024-04-12 11:35 | XMS_ITS | Encounter Summary ---
Author Organization [facility] Healthcare Address [address] [place] [address] Care Team Providers Care Ramp Flight Attendant Name Role Phone Nikky Reyes MD Primary Care Provider Venkat Vivar DO Unavailable [phone] Kwaku Martin MD Unavailable [phone] Richard Hargrove MD Unavailable [phone] Adelso Quiñones MD Unavailable [phone] Reason for Visit * Reason Comments Chemotherapy * Episode Based Medications (Routine) - Closed Specialty Diagnoses / Procedures Referred By Leatha mejia Referred To Contact Diagnoses Encounter for person encountering health services Malignant neoplasm of urinary bladder, unspecified site (HCC) Venkat Vivar DO [address] [place] [address] Phone: tel: fax: [address] [address] Phone: tel: fax: Referral ID Status Reason Start Date Expiration Date Visits Re quested Visits Authorized [id number] Closed 01/05/2024 03/09/2024 1 70 Encounter Details Date Type Department Care Team ([facility] st Contact Info) Description 02/16/2024 8:30 AM PHARMACY RETAIL SUPPORT SPECIALIST Infusion [facility] at [address] [place] [address] Malignant neoplasm of urinary [...] on file Legal Sex Male 2:03 AM PHARMACY RETAIL SUPPORT SPECIALIST Gender Identity Not on file Sexual Orientation Not on file Occupation Industry Job Start Date Job End Date Retired Not on file Not on file Not on file documented as of this encounter Nursing Notes * Antoinette Ramos RN - 02/16/2024 8:30 AM CST Oncology Nursing Note [facility] Venkat Aranda is a 74 y.o. male who presents for treatment cycle 1, day 15 of Gemcitabine with concurrent radiation. Pre-treatment Nursing Assessment Nursing Assessment LOC: Alert Constitutional: Dizziness, Fatigue (patient reports being dizzy this morning-BP 93/56-per Sandra Nurse coordinator, encourage patient to drink more fluids orally- Patient voiced understanding) Fatigue: Occassional Any falls since your last visit?: No Orientation: Oriented x4 Behavior: Calm Speech: Clear Language: No aphasia Vision: At baseline Peripheral Neuropathy: Yes (feet-unchanged) Oral Mucosa Grade: Normal (0) Shortness of Breath?: No Appetite: Good Nausea/Vomiting: Yes (occasional-oral anti nausea meds at home help control) Diarrhea: No Constipation: No Skin Condition/Temp: Warm, Dry Swelling: No Encounter Vitals BP: 93/56 (RN notified was dizzy this morning) (02/16/2024 8:00 AM) Pulse: 77 (02/16/2024 8:00 AM) Resp: 18 (02/16/2024 8:00 AM) Temp: 36.6 ??C (97.9 ??F) (02/16/2024 8:00 AM) Temp src: Oral (02/16/2024 8:00 AM) SpO2: 97 % (02/16/2024 8:00 AM) Weight: 88.9 kg (196 lb) (no shoes) (02/16/2024 8:00 AM) Pain Score: 0 - No pain Treatment Patient: met treatment parameters Pre blood return: Charlene Venkat Aranda tolerated treatment well. Patient was frequently observed and monitored throughout the administration of their treatment. Post blood return: Brisk IV access post infusion: NS Patient Education Treatment Education: Information/teaching given to patient including increasing fluids at home to help with hydration and prevent dizziness. Instructed patient to monitor dizziness and fatigue and let team know if this worsened. Response: Verbalizes understanding Discharge Plan Discharge instructions given to patient. Future appointments given and reviewed with treatment plan. Discharge Mode: Ambulatory Accompanied by: Self Discharged To: Home MACY RETAIL SUPPORT SPECIALIST documented in this encounter Plan of Treatment [...] mL/hr, Administer over 30 Minutes, Once, On Fri02/16/24 at 1015, For 1 doseIndications:Encounter for person encountering health services,Malignant neoplasm of urinary bladder, unspecified site (HCC) New Bag 02/16/2024 9:56 AM PHARMACY RETAIL SUPPORT SPECIALIST 57 mg 119 mL/hr granisetron (KYTRIL) injection 1 mg 1 mg, intravenous, Once, On Fri02/16/24 at 0945, For 1 dose, IV administration over 30 secondsIndications:Encounter for person encountering health services,Malignant neoplasm of urinary bladder, unspecified site (HCC) Given 02/16/2024 9:12 AM PHARMACY RETAIL SUPPORT SPECIALIST 1 mg documented in this encounter Orders Nursing Count Last Ordered Date First Orde red Date ONCBCN TREATMENT PARAMETERS 1 1 02/16/2024 Appointment Requests Count Last Ordered Date Fi rst Ordered Date ONCBCN RETURN CHEMO 1.5HRS 1 02/16/2024 documented in this encounter Care Teams Ramp Flight Attendant Relationship Specialty Start Date End Date Nikky Reyes MD [facility]7 [facility] [address] [place], [place] [phone] PCP - General Family Practice 12/15/23 Venkat Vivar DO 1418 [facility] MEDICAL ONCOLOGY, [facility] 180 [place] [address] Medical Oncologist/Switch Operators Supervisor Hematology and Oncology 12/15/23 Kwaku Martin MD 1 [place] [address] Consulting Physician Urology 12/15/23 Richard Hargrove MD [facility]8 [facility] 160 [place] [address] Radiation Oncologist Radiation Oncology 01/08/24 Adelso Quiñones [place] [address] [place] [address] Surgeon Urology 01/22/24 documented as of this encounter
--- OUTSIDE RECORDS SUMMARY | 2024-04-12 11:35 | XMS_ITS | Encounter Summary ---
Author Organization [facility] Healthcare Address [address] [place] [address] Care Team Providers Care Human Resources Project Manager Name Role Phone Nikky Reyes MD Primary Care Provider Venkat Vivar DO Unavailable [phone] Kwaku Martin MD Unavailable [phone] Richard Hargrove MD Unavailable [phone] Adelso Quiñones MD Unavailable [phone] Encounter Details Date Type Department Care Team (Late st Contact Info) Description 02/18/2024 Orders Only RAD ONC TREATMENTS Miscellaneous, [...] on file Legal Sex Male 2:03 AM LUMBER SALES SUPERVISOR Gender Identity Not on file Sexual Orientation Not on file Occupation Industry Job Start Date Job End Date Retired Not on file Not on file Not on file documented as of this encounter Plan of Treatment Not on file documented as of this encounter Procedures Procedure Name Priority Date/Time Associated Diagnosis Comments RAD ONC ARIA SESSION SUMMARY 02/18/2024 9:43 AM LUMBER SALES SUPERVISOR documented in this encounter Results * RAD ONC ARIA SESSION SUMMARY (02/18/2024 9:43 AM LUMBER SALES SUPERVISOR) Course Name C1_BLADDER_ 2023 ARIA Course Plan Date 01/22/2024 3:44 PM ARIA Elapsed Days 16 ARIA Treatment Start Date 2024 ARIA Treatment Site BLADDER ARIA Dose Given To Date (cGy) 3,575 ARIA Session Dosage Given (cGy) 275 ARIA Plan ID BLADDER ARIA Fractions Treated 13 ARIA Prescribed Dose Per Fraction (cGy) 275 ARIA Prescribed Total Dose (cGy) 5,500 ARIA 02/18/2024 9:43 AM LUMBER SALES SUPERVISOR us Not In File Miscellaneous RADIATION ONCOLOGY ORD ERABLES Final Result ARIA documented in this encounter Visit Diagnoses Not on filedocumented in this encounter Care Teams Human Resources Project Manager Relationship Specialty Start Date End Date Nikky Reyes MD 3417 [facility] 2 [place] [address] PCP - General Family Practice 12/15/23 Venkat Vivar DO 1418 [facility] MEDICAL ONCOLOGY, [facility] 180 [place], [place] [phone] Medical Oncologist/Shipping Clerk Hematology and Oncology 12/15/23 Kwaku Martin MD [address] [place] [address] Consulting Physician Urology 12/15/23 Richard Hargrove MD 1418 [facility] 160 [place], [place] [id number] Radiation Oncologist Radiation Oncology 01/08/24 Adelso Quiñones [place] [address] [place] [address] Surgeon Urology 01/22/24 documented as of this encounter
--- OUTSIDE RECORDS SUMMARY | 2024-04-12 11:35 | XMS_ITS | Encounter Summary ---
Author Organization [facility] Healthcare Address [address] [place] [address] Care Team Providers Care Supply Specialist Name Role Phone Nikky Reyes MD Primary Care Provider Venkat Vivar DO Unavailable [phone] Kwaku Martin MD Unavailable [phone] Richard Hargrove MD Unavailable [phone] Adelso Quiñones MD Unavailable [phone] Encounter Details Date Type Department Care Team (Late st Contact Info) Description 02/24/2024 Orders Only RAD ONC TREATMENTS Miscellaneous, [...] on file Legal Sex Male 2:03 AM HAND PLATE STACKER Gender Identity Not on file Sexual Orientation Not on file Occupation Industry Job Start Date Job End Date Retired Not on file Not on file Not on file documented as of this encounter Plan of Treatment Not on file documented as of this encounter Procedures Procedure Name Priority Date/Time Associated Diagnosis Comments RAD ONC ARIA SESSION SUMMARY 02/24/2024 9:44 AM HAND PLATE STACKER documented in this encounter Results * RAD ONC ARIA SESSION SUMMARY (02/24/2024 9:44 AM HAND PLATE STACKER) Course Name C1_BLADDER_ 2023 ARIA Course Plan Date 01/22/2024 3:44 PM ARIA Elapsed Days 22 ARIA Treatment Start Date 2024 ARIA Treatment Site BLADDER ARIA Dose Given To Date (cGy) 4,950 ARIA Session Dosage Given (cGy) 275 ARIA Plan ID BLADDER ARIA Fractions Treated 18 ARIA Prescribed Dose Per Fraction (cGy) 275 ARIA Prescribed Total Dose (cGy) 5,500 ARIA 02/24/2024 9:44 AM HAND PLATE STACKER us Not In File Miscellaneous RADIATION ONCOLOGY ORD ERABLES Final Result ARIA documented in this encounter Visit Diagnoses Not on filedocumented in this encounter Care Teams Supply Specialist Relationship Specialty Start Date End Date Nikky Reyes MD [address] [place] [address] 2 [place] [address] PCP - General Family Practice 12/15/23 [place] [address] [place] [address] MEDICAL ONCOLOGY, [facility] 180 [place], [place] [phone] Medical Oncologist/Home Housekeeper Hematology and Oncology 12/15/23 Kwaku Martin MD 1 [place] [address] Consulting Physician Urology 12/15/23 Richard Hargrove MD [address] [address] Radiation Oncologist Radiation Oncology 01/08/24 Adelso Quiñones [place] [address] [place] [address] Surgeon Urology 01/22/24 documented as of this encounter
--- OUTSIDE RECORDS SUMMARY | 2024-04-12 11:35 | XMS_ITS | Encounter Summary ---
Author Organization [facility] Healthcare Address [address] [place] [address] Care Team Providers Care Personal Injury Litigation Paralegal Name Role Phone Nikky Reyes MD Primary Care Provider Venkat Vivar DO Unavailable [phone] Kwaku Martin MD Unavailable [phone] Richard Hargrove MD Unavailable [phone] Adelso Quiñones MD Unavailable [phone] Reason for Visit * Reason Comments Nutrition Counseling Encounter Details Date Type Department Care Team (Latest Contact Info) Description 02/19/2024 9:45 AM SURVEY DATA TECHNICIAN Clinical Support [facility] Medical Office Building 2 Radiation Oncology [address] [place] [address] Malignant neoplasm of urinary bladder, unspecified site (HCC) (Primary Dx) Social History Tobacco Use Types Packs/Day Years [...] on file Legal Sex Male 2:03 AM SURVEY DATA TECHNICIAN Gender Identity Not on file Sexual Orientation Not on file Occupation Industry Job Start Date Job End Date Retired Not on file Not on file Not on file documented as of this encounter Progress Notes * FelipeAdenike, RD - 02/19/2024 9:45 AM CST Oncology Nutrition Initial Assessment 74 y.o. male with (C67.9) Malignant neoplasm of urinary bladder, unspecified site (HCC) (primary encounter diagnosis) Weight: Wt Readings from Last 10 Encounters: 02/19/24 90.2 kg (198 lb 12.8 oz) 02/16/24 88.9 kg (196 lb) 02/13/24 89.8 kg (198 lb) 02/12/24 90.3 kg (199 lb) 02/09/24 89.6 kg (197 lb 9.6 oz) 02/06/24 90.7 kg (200 lb) 02/05/24 90 kg (198 lb 6.4 oz) 02/02/24 88.9 kg (196 lb) 01/22/24 87.5 kg (193 lb) 01/05/24 87.2 kg (192 lb 3.2 oz) Current BMI: 26.63 kg/m?? [place] body weight: 78.6 kg (173 lb 5 oz) Adjusted ideal body weight: 83.2 kg (183 lb 8.1 oz) Estimated daily nutritional needs: Calories: 2255- 2700 (25-30 kcal/kg IBW) Protein: 108-135g (1.2-1.5gm /kg IBW) Fluid: 75-91 Oz Current Outpatient Medications Medication Instructions ascorbic acid (VITAMIN C) 1,000 mg, Daily aspirin 81 mg clopidogreL (PLAVIX) 75 mg, Daily furosemide (LASIX) 40 mg levothyroxine (SYNTHROID) 50 mcg metoprolol XL (TOPROL-XL) 25 mg extended release tablet TAKE 1/2 OF A TABLET BY MOUTH EVERY DAY nitroglycerin (NITROSTAT) 0.4 mg, As needed rosuvastatin (CRESTOR) 20 mg, Daily sacubitriL-valsartan (ENTRESTO) 49-51 mg tablet Take by mouth tamsulosin (FLOMAX) 0.4 mg, Daily Impression: Nutrition Status: The patient is at risk for malnutrition, but does not meet the ASPEN criteria formalnutrition. The patient is under the care of Dr. Vivar and Dr. Hargrove and he will receive Low-Dose Gemcitabine with Concurrent Radiation for management of his Malignant neoplasm of urinary bladder. The patient'scurrent weight is 198#, which is up 5# over the past month. Met with the patient today for an initial nutrition consultation. He reports a good Appetite. Has occasional-Nausea/Vomiting but takes oral anti nausea meds at home to help control. No Diarrhea, but recent Constipation takes dulcolax and had BM today. Encouraged aim to keep weight stable during the course of treatment or lose no more than 2# per week. Intervention: We discussed and the patient was given a copy of the Basic Guide to Good Eating During Cancer Treatment. Encouraged the patient to consume high protein-calorie foods and fluids in small, but frequentmeals daily during the course of treatment. Food suggestions provided in written form. He was givenhis estimated daily nutritional needs in written form. Discouraged supplemental vitamin C intake during cancer treatment. Suggestions for dealing with nausea were provided verbally and in written form. Suggested the use of lorene tea, and lorene pb for nausea in addition to taking antiemetics used preventively and as directed. For constipation suggested and provided the following in written form: Slowly and progressively add high fiber foods into your diet. Work your way up to 25-35 grams of fiber per day as tolerated. Include: Raw fruits and vegetables, Whole grains, Bran cereals, Flaxseed, Oatmeal, Beans and peas, Nuts, and seeds. Drink plenty of liquids. Avoid caffeinated beverages. Prune juice or Aloe juice may be helpful. Tryhot tea or hot water with 2 teaspoons of honey. Take this a half an hour before your usual time forbowel movement on an empty stomach. Increase physical activity. If possible, try to be active 3-5 days a week for at least 30 minutes. Avoid eating large amounts of foods that may cause constipation such as cheese, eggs, and chocolate. If no bowel movement for 3 days, speak with doctor or nurse about using other medications for constipation The patient was informed about and requested a prescription for Ensure Plus. A prescription for 1 case of Ensure Plus per month for three months from the [employer] Program was written and logged and entered into [employer] today and the patient and family were told where to pick this up. The patient was encouraged to contact me during the course of treatment with any nutritional questions or concerns. Adenike Wang, MS, RDN, LINE SERVICE ATTENDANT, LD Oncology Regional Business Manager and Registered Dietitian [facility] in [place], [place] [phone] [email or web address] DATA TECHNICIAN documented in this encounter Plan of Treatment Not on file documented as of this encounter Visit Diagnoses Diagnosis Malignant neoplasm of urinary bladder, unspecified site (HCC)- Primary documented in this encounter Care Teams Personal Injury Litigation Paralegal Relationship Specialty Start Date End Date Nikky Reyes MD 3417 [facility] 2 [place], [place] [phone] PCP - General Family Practice 12/15/23 Venkat Vivar DO 1418 [facility] MEDICAL ONCOLOGY, [facility] 180 [place] [address] Medical Oncologist/Eligibility And Occupancy Interviewer Hematology and Oncology 12/15/23 Kwaku Martin MD 1 [place] [address] Consulting Physician Urology 12/15/23 Richard Hargrove MD 1418 [facility] [address] [place] [address] Radiation Oncologist Radiation Oncology 01/08/24 Adelso Qu[place] [address] [facility] [address] [place] [address] Surgeon Urology 01/22/24 documented as of this encounter
--- OUTSIDE RECORDS SUMMARY | 2024-04-12 11:35 | XMS_ITS | Encounter Summary ---
Author Organization [facility] Healthcare Address [address] [place] [address] Care Team Providers Care Quality Internship Name Role Phone Nikky Reyes MD Primary Care Provider Venkat Vivar DO Unavailable [phone] Kwaku Martin MD Unavailable [phone] Richard Hargrove MD Unavailable [phone] Adelso Quiñones MD Unavailable [phone] Encounter Details Date Type Department Care Team (Late st Contact Info) Description 02/22/2024 Orders Only RAD ONC TREATMENTS Miscellaneous, [...] on file Legal Sex Male 2:03 AM SENIOR QUALITATIVE RESEARCHER Gender Identity Not on file Sexual Orientation Not on file Occupation Industry Job Start Date Job End Date Retired Not on file Not on file Not on file documented as of this encounter Plan of Treatment Not on file documented as of this encounter Procedures Procedure Name Priority Date/Time Associated Diagnosis Comments RAD ONC ARIA SESSION SUMMARY 02/22/2024 9:35 AM SENIOR QUALITATIVE RESEARCHER documented in this encounter Results * RAD ONC ARIA SESSION SUMMARY (02/22/2024 9:35 AM SENIOR QUALITATIVE RESEARCHER) Course Name [email or web address]_ 2023 ARIA Course Plan Date 01/22/2024 3:44 PM ARIA Elapsed Days 20 ARIA Treatment Start Date 2024 ARIA Treatment Site BLADDER ARIA Dose Given To Date (cGy) 4,400 ARIA Session Dosage Given (cGy) 275 ARIA Plan ID BLADDER ARIA Fractions Treated 16 ARIA Prescribed Dose Per Fraction (cGy) 275 ARIA Prescribed Total Dose (cGy) 5,500 ARIA 02/22/2024 9:35 AM SENIOR QUALITATIVE RESEARCHER us Not In File Miscellaneous RADIATION ONCOLOGY ORD ERABLES Final Result ARIA documented in this encounter Visit Diagnoses Not on filedocumented in this encounter Care Teams Quality Internship Relationship Specialty Start Date End Date Nikky Reyes MD [facility] [address] [place] [address] PCP - General Family Practice 12/15/23 Venkat Vivar DO [address] [facility] MEDICAL ONCOLOGY, [facility] [address] [place], [place] [id number] Medical Oncologist/Jewelry Setter Hematology and Oncology 12/15/23 Kwaku Martin MD [address] [place] [address] Consulting Physician Urology 12/15/23 Richard Hargrove MD 1418 [facility] [address] [place], [place] [id number] Radiation Oncologist Radiation Oncology 01/08/24 Adelso Quiñones [place] [address] [place] [id number] Surgeon Urology 01/22/24 documented as of this encounter
--- OUTSIDE RECORDS SUMMARY | 2024-04-12 11:35 | XMS_ITS | Encounter Summary ---
Author Organization [facility] Healthcare Address [address] [place] [address] Care Team Providers Care Turret Lathe Tender Name Role Phone Nikky Reyes MD Primary Care Provider Venkat Vivar DO Unavailable [phone] Kwaku Martin MD Unavailable [phone] Richard Hargrove MD Unavailable [phone] Adelso Quiñones MD Unavailable [phone] Encounter Details Date Type Department Care Team (Late st Contact Info) Description 02/23/2024 9:30 AM SOLID PLASTERER Treatment [facility] Medical Office Building 2 Radiation Oncology [address] [place] [id number] Social History Tobacco Use Types Packs/Day Years [...] on file Legal Sex Male 2:03 AM SOLID PLASTERER Gender Identity Not on file Sexual Orientation Not on file Occupation Industry Job Start Date Job End Date Retired Not on file Not on file Not on file documented as of this encounter Progress Notes * Azalia Valentine - 02/23/2024 9:30 AM CST This lead relay tester provided spiritually supportive care to pt during treatment this day. Pt expressed appreciation. D PLASTERER documented in this encounter Plan of Treatment Not on file documented as of this encounter Visit Diagnoses Not on filedocumented in this encounter Care Teams Turret Lathe Tender Relationship Specialty Start Date End Date Nikky Reyes MD [address] [facility] 2 [place] [address] PCP - General Family Practice 12/15/23 [place] [address] [place] [address] MEDICAL ONCOLOGY, [facility] [address] [place] [address] Medical Oncologist/Rn Er Hematology and Oncology 12/15/23 Kwaku Martin MD [address] [place] [address] Consulting Physician Urology 12/15/23 Richard Hargrove MD [address] [place] [address] [address] [place] [address] Radiation Oncologist Radiation Oncology 01/08/24 Adelso Quiñones [place] [address] [address] Surgeon Urology 01/22/24 documented as of this encounter
--- OUTSIDE RECORDS SUMMARY | 2024-04-12 11:35 | XMS_ITS | Encounter Summary ---
Author Organization [facility] Healthcare Address [address] [place] [address] Care Team Providers Care Rehab Care Assistant Name Role Phone Nikky Reyes MD Primary Care Provider Venkat Vivar DO Unavailable [phone] Kwaku Martin MD Unavailable [phone] Richard Hargrove MD Unavailable [phone] Adelso Quiñones MD Unavailable [phone] Reason for Visit * Reason Comments Constipation Vomiting Encounter Details Date Type Department Care Team ([facility] Contact Info) Description 02/25/2024 12:39 AM [facility] - 02/25/2024 4:06 AM [facility] Emergency Department [address] [place] [address] Kwaku Roland Jr., MD [address]) [place] [address] Abdominal pain (Primary Dx); Constipation, unspecified constipation type; Colitis Discharge Disposition: Discharge to home or self care Social History Tobacco Use Types Packs/Day Years [...] on file Legal Sex Male 2:03 AM RESCUE INSTRUCTOR Gender Identity Not on file Sexual Orientation Not on file Occupation Industry Job Start Date Job End Date Retired Not on file Not on file Not on file documented as of this encounter Last Filed Vital Signs Vital Sign Reading Time Taken Comments Blood Pressure 103/61 02/25/2024 3:40 AM RESCUE INSTRUCTOR Pulse 80 02/25/2024 3:40 AM RESCUE INSTRUCTOR Temperature 36.9 ??C (98.4 ??F) 02/25/2024 3:40 AM CS T Respiratory Rate 16 02/25/2024 3:40 AM RESCUE INSTRUCTOR Oxygen Saturation 96% 02/25/2024 3:40 AM RESCUE INSTRUCTOR Inhaled Oxygen Concentration - - Weight 90.7 kg (199 lb 15.3 oz) 024 12:13 AM RESCUE INSTRUCTOR Height 185.4 cm (6' 1 ) 02/25/2024 12:1 3 AM RESCUE INSTRUCTOR Body Mass Index 26.38 02/25/2024 12:13 AM RESCUE INSTRUCTOR documented in this encounter Discharge Instructions * Discharge Instructions* Kwaku Roland Jr., MD - 02/25/2024 3:56 AM RESCUE INSTRUCTOR Metamucil to heaping tbsp in a glass of water twice a day MiraLax twice daily Magnesium citrate 4-8 oz every 4 hours as needed if constipation develops Return to the emergency department if worsens, develops fever, bleeding, vomiting, or other concerns UE INSTRUCTOR * Attachments The following attachments cannot be sent through Care Everywhere. * External Beam Radiation Therapy (General Information) (Citizen Of [place]) * Constipation (General Information) (Citizen Of [place]) * Bladder Cancer (General Information) (Citizen Of [place]) * Colitis (AfterCare(R) Instructions(ER/ED)) (Citizen Of [place]) documented in this encounter Medications at Time of Discharge ascorbic acid (VITAMIN C) 1,000 mg tablet Take 1 tablet (1,000 mg total) by mouth daily aspirin 81 mg enteric coated tablet Take 1 tablet (81 mg total) by mouth 11/19/2023 clopidogreL (PLAVIX) 75 mg tablet Take 1 tablet (75 mg total) by mouth daily furosemide (LASIX) 40 mg tablet Take 1 tablet (40 mg total) by mouth 11/19/2023 levothyroxine (Synthroid) 50 mcg tablet Take 1 tablet (50 mcg total) by mouth 11/19/2023 metoprolol XL (TOPROL-XL) 25 mg extended release tablet TAKE 1/2 OF A TABLET BY MOUTH EVERY DAY 01/14/2024 nitroglycerin (NITROSTAT) 0.4 mg SL tablet 1 tablet (0.4 mg total) as needed for chest pain 01/14/2024 rosuvastatin (CRESTOR) 20 mg tablet Take 1 tablet (20 mg total) by mouth daily sacubitriL-valsar lozada (ENTRESTO) 49-51 mg tablet Take by mouth 11/19/2023 tamsulosin (FLOMAX) 0.4 mg extended release capsule Take 1 capsule (0.4 mg total) by mouth daily 12/05/2023 documented as of this encounter Discharge Disposition Disposition Code Departure Means Destination Comment s Discharge to home or self care documented in this encounter Progress Notes * Jose Miguel Chavira MD - 02/25/2024 4:06 AM CST Was originally paged to discuss possible admission for patient. However when this physician presented to emergency room to further discuss, he was notified that e.d. plan to discharge patient after further discussion with the patient regarding CT results. Patient was not evaluated by hospitalist team, but patient chart was accessed for reasons above. - Jose Miguel Chavira MD UE INSTRUCTOR documented in this encounter ED Notes * Kwaku Roland Jr., MD - 02/25/2024 12:43 AM CST HPI Chief Complaint Patient presents with Constipation Vomiting 74 yo m w hx as below presents w abd pain, n/v tonight w constipation leading up to it. Last bm was1 week ago.he is undergoing bladder radiation and chemo for blaer ca. No f/c. No dysuria, urgency or frequency. Triage note Pt arrives with c/o constipation x 1 week with worsening abdominal pain and vomiting tonight. Pt reports that his doctor prescribed laxatives and stool softeners without relief. Chemo and radiation for bladder cancer. Patient History: Patient Active Problem List Diagnosis Date Noted Chronic diastolic congestive heart failure (CMS/HCC) (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) 01/06/2024 Malignant neoplasm of urinary bladder ([facility]) 01/05/2024 Encounter for person encountering health services 01/05/2024 Past Medical History: Diagnosis Date Bladder cancer (HCC) BPH (benign prostatic hyperplasia) Cardiomyopathy (HCC) Coronary artery disease Hyperlipidemia Hypothyroidism Past Surgical History: Procedure Laterality Date CARDIAC SURGERY CHOLECYSTECTOMY CYSTOSCOPY W/ URETERAL STENT PLACEMENT Family History Problem Relation Age of Onset Heart disease Mother Heart disease Father Cancer Sister Heart disease Sister Cancer Brother Heart disease Brother No Known Problems Maternal Grandmother No Known Problems Maternal Grandfather No Known Problems Paternal Grandmother No Known Problems Paternal Grandfather Social History Tobacco Use Smoking status: Never Smokeless tobacco: Never Vaping Use Vaping status: Never Used Substance and Sexual Activity Alcohol use: Not on file Drug use: Not Currently Sexual activity: Not Currently Partners: Female Social History Social History Narrative Not on file Review of Systems Review of Systems All other systems reviewed and are negative. Physical Exam ED Triage Vitals Temp Pulse Resp BP SpO2 02/25/243 02/25/243 02/25/243 02/25/243 02/25/2412 36.6 ??C (97.9 ??F) 84 18 152/88 97 % Temp src Heart Rate Source Patient Position BP Location FiO2 (%) 02/25/24 0013 02/25/24 0100 02/25/24 0100 02/25/24 0100 -- Oral Monitor HOB 30 degrees Right arm Height Height Method Weight Weight Method 02/25/243 02/25/24 0013 02/25/243 02/25/2412 1.854 m (6' 1 ) Stated 90.7 kg (199 lb 15.3 oz) Standing scale Physical Exam Vitals and nursing note reviewed. Constitutional: Appearance: Normal appearance. He is well-developed. Comments: Pleasant, well O, good historian HENT: Head: Normocephalic and atraumatic. Nose: Nose normal. Mouth/Throat: Mouth: Mucous membranes are moist. Pharynx: No oropharyngeal exudate. Eyes: General: No scleral icterus. Extraocular Movements: Extraocular movements intact. Conjunctiva/sclera: Conjunctivae normal. Pupils: Pupils are equal, round, and reactive to light. Neck: Vascular: No JVD. Trachea: No tracheal deviation. Cardiovascular: Rate and Rhythm: Normal rate and regular rhythm. Heart sounds: Murmur heard. No gallop. Pulmonary: Effort: Pulmonary effort is normal. Breath sounds: Normal breath sounds. No stridor. No wheezing, rhonchi or rales. Chest: Chest wall: No tenderness. Abdominal: Palpations: Abdomen is soft. There is no mass. Tenderness: There is no abdominal tenderness. There is no guarding or rebound. Musculoskeletal: General: No tenderness. Normal range of motion. Cervical back: Normal range of motion and neck supple. Right lower leg: No edema. Left lower leg: No edema. Skin: General: Skin is warm and dry. Capillary Refill: Capillary refill takes less than 2 seconds. Neurological: General: No focal deficit present. Mental Status: He is alert and oriented to person, place, and time. Cranial Nerves: No cranial nerve deficit. Psychiatric: Mood and Affect: Mood normal. Behavior: Behavior normal. Thought Content: Thought content normal. Differential diagnosis includes but is not limited to gastritis, gastroenteritis, enteritis, colitis, diverticulitis, constipation, obstruction, obstipation, UTI, kidney stone, gallbladder disease. Labs Reviewed CBC WITH AUTO DIFFERENTIAL - Abnormal Result Value WBC 5.5 Hgb 10.8 (*) Hct 30.5 (*) Plt 164 MPV 8.8 (*) RBC 3.15 (*) MCV 96.8 (*) MCH 34.3 (*) MCHC 35.4 RDW CV 15.7 (*) RDW SD 50.6 (*) NRBC abs 0.00 COMPREHENSIVE METABOLIC PANEL - Abnormal Sodium 138 Potassium, pl 3.6 Chloride 103 CO2 23 Anion gap 12 BUN 12 Creatinine 0.70 (*) Glucose 130 Calcium 9.2 Bilirubin, total 0.6 Protein, pl 7.3 Albumin 3.8 Alk phos 77 ALT 21 AST 17 DIFFERENTIAL AUTO - Abnormal Neutrophil abs 4.5 Imm gran abs 0.0 Lymphocyte abs 0.5 (*) Monocyte abs 0.5 Eosinophil abs 0.1 Basophil abs 0.0 Neutrophil pct 80.8 Imm gran pct 0.7 Lymphocyte pct 8.5 Monocyte pct 8.3 Eosinophil pct 1.3 Basophil pct 0.4 LIPASE Lipase 27 EGFR eGFR >90 CT Abdomen Pelvis W Contrast Final Result FINDINGS: LOWER CHEST: There is bibasilar atelectasis. LIVER: There are multiple hypodense lesions which statistically likely represent cysts or hemangiomas, unchanged. There is a low-density cyst in the periphery of the right lobe of the liver measuring 1.7 cm, increased in size from previous study. GALLBLADDER: Surgically absent. BILE DUCTS: No intrahepatic or extrahepatic ductal dilatation. PANCREAS: Normal. SPLEEN: Normal size. No focal lesions. ADRENALS: Normal. KIDNEYS/URINARY TRACT: The left kidney is normal. A right ureteral stent is seen in place. The right kidney is otherwise normal. The bladder is partially collapsed but mildly thick walled measuring up to 9 mm in its area of greatest thickness. There is subtle stranding surrounding the bladder. VASCULATURE: There is moderate atherosclerosis of the aorta and its pelvic branches. GI: The stomach appears normal. There is a small duodenal diverticulum seen of the 2nd portion of the duodenum. There is no significant small bowel dilation or visible thickening. There is extensive diverticulosis, wall thickening and mild mucosal enhancement seen through out the sigmoid colon. There is prominence of the surrounding vasculature, consistent with hyperemia and minimal adjacent stranding. The colon wall measures up to 9 mm in thickness in this region. The remainder of the colon is unremarkable. The appendix is normal. PERITONEUM/MESENTERY: No ascites or free air. There is a tiny fat containing periumbilical hernia. LYMPH NODES: There are no enlarged lymph nodes seen by CT size criteria. REPRODUCTIVE: The prostate is enlarged, measuring 4.4 x 4.3 cm. The seminal vesicles are unremarkable. MUSCULOSKELETAL: Mild multilevel degenerative [...] bladder. This may be related to cystitis. Recommend correlation with urinalysis. Enlarged prostate. Moderate atherosclerosis. Tiny fat containing periumbilical hernia. Status post cholecystectomy. Small duodenal diverticulum. THIS IS AN ELECTRONICALLY VERIFIED FINAL REPORT 02/25/2024 1:44 AM - Electronically signed by Camilla Aguirre M.D. Patient's CMP is unremarkable, but he is mildly anemic with a hemoglobin of 10.8 and hematocrit of 30.5. His white count is 5500, lipase is normal, UA is pending Differential diagnosis, workup, interpretation of labs, images, radiology reports, telemetry monitoring, EKG, initial treatment, diagnosis, development of treatment plan and disposition complexity and risk was high. I discussed the workup, results, and plan with the patient and their family if available and they are in agreement. MDM Medical Decision Making Amount and/or Complexity of Data Reviewed Labs: ordered. Decision-making details documented in ED Course. Radiology: ordered. Decision-making details documented in ED Course. Risk Prescription drug management. 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 Pt reports that his doctor prescribed laxatives and stool softeners without relief. Chemo and radiation for bladder cancer. UE INSTRUCTOR documented in this encounter Plan of Treatment Not on file documented as of this encounter Procedures Procedure Name Priority Date/Time Associated Diagnosis Comments CT ABDOMEN PELVIS W CONTRAST ED 02/25/2024 1:24 AM RESCUE INSTRUCTOR EGFR STAT 02/25/2024 12:21 AM RESCUE INSTRUCTOR DIFFERENTIAL AUTO STAT 02/25/2024 12: 21 AM RESCUE INSTRUCTOR CBC WITH AUTO DIFFERENTIAL STAT 02/25/2024 12:21 AM RESCUE INSTRUCTOR LIPASE STAT 02/25/2024 12:21 AM RESCUE INSTRUCTOR COMPREHENSIVE METABOLIC PANEL STAT 02/25/2024 12:21 AM RESCUE INSTRUCTOR documented in this encounter Results * CT Abdomen Pelvis W Contrast (02/25/2024 1:24 AM RESCUE INSTRUCTOR) Anatomical Region Laterality Modality Body N/A Computed Tomogra phy 02/25/2024 1:32 AM RESCUE INSTRUCTOR Narrative 02/25/2024 1:44 AM RESCUE INSTRUCTOR EXAM DESCRIPTION: ?? CT ABDOMEN PELVIS W [...] AM T: ??02/25/2024 1:44 AM Report ID: [id number] Reading Location: ??[id number] Procedure Note Camilla Aguirre MD - 02/25/2024 [...] by Camilla Aguirre M.D. SN: Report ID: [id number] Reading Location: [place] [address] Kwaku Roland Jr., MD IMG CT PROCEDURES Final Result * eGFR (02/25/2024 12:21 AM RESCUE INSTRUCTOR) eGFR >90 >=60 mL/min/1. 73 m2 Comment: [...] reviewed 2021. Testing performed by: [facility], [address] [place] [address]., [id number] Blood 02/25/2024 12:2 1 AM RESCUE INSTRUCTOR 02/25/2024 12:31 AM RESCUE INSTRUCTOR us Kwaku Roland Jr., MD LAB BLOOD ORDERABLES Fi nal Result JAIME [address] [place] [address] * (ABNORMAL) Differential, auto (02/25/2024 12:21 AM RESCUE INSTRUCTOR) Neutrophil abs 4.5 1.5 - 6.5 K/cumm Comment:Testing performed by : [address] [address] Imm gran abs 0.0 0.0 - 0.1 K/cumm JAIME Comment:Testing performed by : [address] [address] Lymphocyte abs 0.5(L) 0.8 - 3.3 K/cumm JAIME Comment:Testing performed by : [address] [address] Monocyte abs 0.5 0.2 - 0.8 K/cumm JAIME Comment:Testing performed by : [address] [address] Eosinophil abs 0.1 0.0 - 0.5 K/cumm JAIME Comment:Testing performed by : [address] [address] Basophil abs 0.0 0.0 - 0.1 K/cumm JAIME Comment:Testing performed by : [address] [address] Neutrophil pct 80.8 % JAIME Comment: Interpretive Data Percent cell count reference ranges are not reported, since discordance with absolute values may lead to misinterpretation of CBC data. Current Interpretive Data was last revised on 2017. Testing performed by: [address] [address] Imm gran pct 0.7 % [facility] Comment: Interpretive Data Percent cell count reference ranges are not reported, since discordance with absolute values may lead to misinterpretation of CBC data. Current Interpretive Data was last revised on 2017. Testing performed by: [address] [address] Lymphocyte pct 8.5 % [facility] Comment: Interpretive Data Percent cell count reference ranges are not reported, since discordance with absolute values may lead to misinterpretation of CBC data. Current Interpretive Data was last revised on 2017. Testing performed by: [address] [address] Monocyte pct 8.3 % [facility] Comment: Interpretive Data Percent cell count reference ranges are not reported, since discordance with absolute values may lead to misinterpretation of CBC data. Current Interpretive Data was last revised on 2017. Testing performed by: [address] [address] Eosinophil pct 1.3 % [facility] Comment: Interpretive Data Percent cell count reference ranges are not reported, since discordance with absolute values may lead to misinterpretation of CBC data. Current Interpretive Data was last revised on 2017. Testing performed by: [address] [address] Basophil pct 0.4 % [facility] Comment: Interpretive Data Percent cell count reference ranges are not reported, since discordance with absolute values may lead to misinterpretation of CBC data. Current Interpretive Data was last revised on 2017. Testing performed by: [address] [address] Blood 02/25/2024 12:2 1 AM RESCUE INSTRUCTOR 02/25/2024 12:31 AM RESCUE INSTRUCTOR us Kwaku Roland Jr., MD LAB BLOOD ORDERABLES Fi nal Result Performing Organization Address City/[facility] Co de Phone Number [address] [address] * Lipase (02/25/2024 12:21 AM RESCUE INSTRUCTOR) [facility] Lipase 27 10 - 99 Units/L Comment:Testing performed by : [address] [address] Blood (Blood, Venous) 02/25/2024 12:21 AM RESCUE INSTRUCTOR 02/25/2024 12:31 AM RESCUE INSTRUCTOR Kwaku Roland Jr., MD LAB BLOOD ORDERABLES Fi nal Result Performing Organization Address [facility] Co de Phone Number [address] [address] * (ABNORMAL) Comprehensive metabolic panel (02/25/2024 12:21 AM RESCUE INSTRUCTOR) [facility] Sodium 138 135 - 145 mmol/L Comment:Testing performed by : [address] [address] Potassium, pl 3.6 3.3 - 4.9 mmol/L JAIME Comment:Testing performed by : [address] [address] Chloride 103 97 - 110 mmol/L JAIME Comment:Testing performed by : [address] [address] CO2 23 22 - 32 mmol/L JAIME Comment:Testing performed by : [address] [address] Anion gap 12 2 - 15 mmol/L JAIME Comment:Testing performed by : [address] [address] BUN 12 6 - 25 mg/dL JAIME Comment:Testing performed by : [address] [address] Creatinine 0.70(L) 0.80 - 1.30 mg/dL JAIME Comment:Testing performed by : [address] [address] Glucose 130 70 - 199 mg/dL JAIME [...] was last revised 2022. Testing performed by: [address] [address] Calcium 9.2 8.5 - 10.3 mg/dL JAIME Comment:Testing performed by : [address] [address] Bilirubin, total 0.6 0.1 - 1.2 mg/dL JAIME Comment:Testing performed by : [address] [address] Protein, pl 7.3 6.5 - 8.5 g/dL JAIME Comment:Testing performed by : [address] [address] Albumin 3.8 3.5 - 5.0 g/dL JAIME Comment:Testing performed by : [address] [address] Alk phos 77 40 - 130 Units/L JAIME Comment:Testing performed by : [address] [address] ALT 21 7 - 55 Units/L JAIME Comment:Testing performed by : [address] [address] AST 17 10 - 50 Units/L JAIME Comment:Testing performed by : [address] [address] Blood 02/25/2024 12:2 1 AM RESCUE INSTRUCTOR 02/25/2024 12:31 AM RESCUE INSTRUCTOR Kwaku Roland Jr., MD LAB BLOOD ORDERABLES Fi nal Result [facility] [address] [facility] Department [place] [address] * (ABNORMAL) CBC with auto differential (02/25/2024 12:21 AM RESCUE INSTRUCTOR) WBC 5.5 3.8 - 9.9 K/cumm Comment:Testing performed by : [address] [address] Hgb 10.8(L) 13.0 - 17.5 g/dL JAIME Comment:Testing performed by : [address] [address] Hct 30.5(L) 38.9 - 50.3 % JAIME Comment:Testing performed by : [address] [address] Plt 164 150 - 400 K/cumm JAIME Comment:Testing performed by : [address] [address] MPV 8.8(L) 9.1 - 12.3 fL JAIME Comment:Testing performed by : [address] [address] RBC 3.15(L) 4.30 - 5.80 M/cumm JAIME Comment:Testing performed by : [address] [address] MCV 96.8(H) 81.3 - 96.4 fL JAIME Comment:Testing performed by : [address] [address] MCH 34.3(H) 27.1 - 33.3 pg JAIME Comment:Testing performed by : [address] [address] MCHC 35.4 32.3 - 35.7 g/dL JAIME Comment:Testing performed by : [address] [address] RDW CV 15.7(H) 11.1 - 14.9 % JAIME Comment:Testing performed by : [address] [address] RDW SD 50.6(H) 35.7 - 48.1 fL JAIME [place] Comment:Testing performed by : [address] [address] NRBC abs 0.00 0.00 - 0.01 K/cumm JAIME [place] Comment:Testing performed by : [address] [address] Blood (Blood, Venous) 02/25/2024 12:21 AM RESCUE INSTRUCTOR 02/25/2024 12:31 AM RESCUE INSTRUCTOR us Kwaku Roland Jr., MD LAB BLOOD ORDERABLES Fi nal Result JAIME [facility] [address] [facility] Department [place] [address] documented in this encounter Visit Diagnoses Diagnosis Abdominal pain- Primary Abdominal pain, unspecified site Constipation, unspecified constipation type Colitis Other and unspecified noninfectious gastroenteritis and colitis documented in this encounter Administered Medications Inactive Administered Medications - up to 3 most recent administrations Medication Order MAR Action Action Date Dose Rate Site cefTRIAXone (ROCEPHIN) 2,000 mg/20 mL in sterile water (premix) 2,000 mg 2,000 mg, intravenous, at 240 mL/hr, Administer over 5 Minutes, Once, On Fri02/25/24 at 0238, For 1 dose, Indications: Abdominal/Pelvic InfectionIndications:A bdominal/Pelvic Infection Given 02/25/2024 2:47 AM RESCUE INSTRUCTOR 2,000 mg 240 mL/hr ioversoL (OPTIRAY 350) syringe 100 mL 100 mL, intravenous, Once in imaging, contrast, Starting on Fri02/25/24 at 0121, For 1 dose Contrast Given 02/25/2024 1:21 AM RESCUE INSTRUCTOR 100 mL Left Forearm metroNIDAZOLE (FLAGYL) 500 mg/100 mL in sodium chloride (premix) 500 mg 500 mg, intravenous, at 200 mL/hr, Administer over 30 Minutes, Once, On Fri02/25/24 at 0238, For 1 dose, Room temperature only, Indications: Abdominal/Pelvic InfectionIndications:A bdominal/Pelvic Infection New Bag 02/25/2024 2:53 AM RESCUE INSTRUCTOR 500 mg 200 mL/hr documented in this encounter Active and Recently Administered Medications Times are shown in RESCUE INSTRUCTOR. Scheduled Medication Order 02/23/2024 02/24/2024 02/25/2024 cefTRIAXone (ROCEPHIN) 2,000 mg/20 mL in sterile water (premix) 2,000 mg (COMPLETED) 2,000 mg, intravenous, at 240 mL/hr, Administer over 5 Minutes, Once, On Fri02/25/24 at 0238, For 1 dose, Indications: Abdominal/Pelvic Infection 0247 (Given - Provid er: Ayo Robles, ODILON) metroNIDAZOLE (FLAGYL) 500 mg/100 mL in sodium chloride (premix) 500 mg (COMPLETED) 500 mg, intravenous, at 200 mL/hr, Administer over 30 Minutes, Once, On Fri02/25/24 at 0238, For 1 dose, Room temperature only, Indications: Abdominal/Pelvic Infection 0253 (New Bag - Prov ider: Ayo Robles RN - Comment: per pump)[id number] (Stopped - Provider: Ayo Robles RN) PRN Medication Order 02/23/2024 02/24/2024 02/25/2024 ioversoL (OPTIRAY 350) syringe 100 mL (COMPLETED) 100 mL, intravenous, Once in imaging, contrast, Starting on Fri02/25/24 at 0121, For 1 dose 0121 (Contrast Given - Provider: Amadeo Funk, RT) documented in this encounter Orders Medications Ordered That Lalit ht Not Have Been Administered Count Last Ordered Date First Ordered Date mineral oil (FLEET MINERAL O [place]) enema 133 mL 1 02/25/2024 Nursing Count Last Ordered Date First Orde red Date MISCELLANEOUS NURSING CARE ORDER (SPECIFY) 1 02/25/2024 IV Count Last Ordered Date First Orde red Date SALINE LOCK IV 1 02/25/2024 documented in this encounter Care Teams Rehab Care Assistant Relationship Specialty Start Date End Date Nikky Reyes MD [address] [place] [address] PCP - General Family Practice 12/15/23 Venkat Vivar DO [address] [facility], [address] [place] [address] Medical Oncologist/Soldering Machine Tender Hematology and Oncology 12/15/23 Kwaku Martin MD [address] [place] [address] Consulting Physician Urology 12/15/23 Richard Hargrove MD [address] [address] Radiation Oncologist Radiation Oncology 01/08/24 Adelso Quiñ[place] [address] [address] Surgeon Urology 01/22/24 documented as of this encounter
--- OUTSIDE RECORDS SUMMARY | 2024-04-12 11:35 | XMS_ITS | Encounter Summary ---
Author Organization [facility] Healthcare Address [address] [place] [address] Care Team Providers Care Lan Analyst Name Role Phone Nikky Reyes MD Primary Care Provider Venkat Vivar DO Unavailable [phone] Kwaku Martin MD Unavailable [phone] Richard Hargrove MD Unavailable [phone] Adelso Quiñones MD Unavailable [phone] Encounter Details Date Type Department Care Team (Late st Contact Info) Description 02/20/2024 Orders Only RAD ONC TREATMENTS Miscellaneous, [...] file Legal Sex Male 2:03 AM CAR TESTER Gender Identity Not on file Sexual Orientation Not on file Occupation Industry Job Start Date Job End Date Retired Not on file Not on file Not on file documented as of this encounter Plan of Treatment Not on file documented as of this encounter Procedures Procedure Name Priority Date/Time Associated Diagnosis Comments RAD ONC ARIA SESSION SUMMARY 02/20/2024 9:41 AM CAR TESTER documented in this encounter Results * RAD ONC ARIA SESSION SUMMARY (02/20/2024 9:41 AM CAR TESTER) Course Name [email or web address]_[email or web address]_ 2023 ARIA Course Plan Date 01/22/2024 3:44 PM ARIA Elapsed Days 18 ARIA Treatment Start Date 2024 ARIA Treatment Site BLADDER ARIA Dose Given To Date (cGy) 4,125 ARIA Session Dosage Given (cGy) 275 ARIA Plan ID BLADDER ARIA Fractions Treated 15 ARIA Prescribed Dose Per Fraction (cGy) 275 ARIA Prescribed Total Dose (cGy) 5,500 ARIA 02/20/2024 9:41 AM CAR TESTER us Not In File Miscellaneous RADIATION ONCOLOGY ORD ERABLES Final Result ARIA documented in this encounter Visit Diagnoses Not on filedocumented in this encounter Care Teams Lan Analyst Relationship Specialty Start Date End Date Nikky Reyes MD [facility]7 [facility] 2 [place] [address] PCP - General Family Practice 12/15/23 [place] [address] [place] [address] MEDICAL ONCOLOGY, [facility] 180 [place], [place] [phone] Medical Oncologist/Bolt Header Hematology and Oncology 12/15/23 Kwaku Martin MD [address] [place] [address] Consulting Physician Urology 12/15/23 Richard Hargrove MD 1418 [facility] 160 [place], [place] [address] Radiation Oncologist Radiation Oncology 01/08/24 Adelso Quiñones [place] [address] [place] [address] Surgeon Urology 01/22/24 documented as of this encounter
--- OUTSIDE RECORDS SUMMARY | 2024-04-12 11:35 | XMS_ITS | Encounter Summary ---
Author Organization [facility] Healthcare Address [address] [place] [address] Care Team Providers Care Compressor House Operator Name Role Phone Nikky Reyes MD Primary Care Provider Venkat Vivar DO Unavailable [phone] Kwaku Martin MD Unavailable [phone] Richard Hargrove MD Unavailable [phone] Adelso Quiñones MD Unavailable [phone] Encounter Details Date Type Department Care Team (Late st Contact Info) Description 02/18/2024 9:30 AM WORKER'S COMPENSATION CLAIMS EXAMINER Treatment [facility] Medical Office Building 2 Radiation Oncology [address] [place] [address] Social History Tobacco Use Types Packs/Day Years [...] on file Legal Sex Male 2:03 AM WORKER'S COMPENSATION CLAIMS EXAMINER Gender Identity Not on file Sexual Orientation Not on file Occupation Industry Job Start Date Job End Date Retired Not on file Not on file Not on file documented as of this encounter Plan of Treatment Not on file documented as of this encounter Visit Diagnoses Not on filedocumented in this encounter Care Teams Compressor House Operator Relationship Specialty Start Date End Date Nikky Reyes MD [address] [facility] [address] [place] [address] PCP - General Family Practice 12/15/23 [place] [address] [place] [address] MEDICAL ONCOLOGY, [facility] 180 [place] [address] Medical Oncologist/Interviewing Clerk Hematology and Oncology 12/15/23 Kwaku Martin MD [address] [place] [address] Consulting Physician Urology 12/15/23 [place] [address] [place] [address] 160 [place] [address] Radiation Oncologist Radiation Oncology 01/08/24 Adelso Quiñones [place] [address] [address] Surgeon Urology 01/22/24 documented as of this encounter
--- OUTSIDE RECORDS SUMMARY | 2024-04-12 11:36 | XMS_ITS | Encounter Summary ---
Author Organization [facility] Healthcare Address [address] [place] [address] Care Team Providers Care Java Grails Developer Name Role Phone Nikky Reyes MD Primary Care Provider Venkat Vivar DO Unavailable [phone] Kwaku Martin MD Unavailable [phone] Richard Hargrove MD Unavailable [phone] Adelso Quiñones MD Unavailable [phone] Encounter Details Date Type Department Care Team (Late st Contact Info) Description 02/05/2024 Orders Only RAD ONC TREATMENTS Miscellaneous, [...] on file Legal Sex Male 2:03 AM DOLLY OPERATOR Gender Identity Not on file Sexual Orientation Not on file Occupation Industry Job Start Date Job End Date Retired Not on file Not on file Not on file documented as of this encounter Plan of Treatment Not on file documented as of this encounter Procedures Procedure Name Priority Date/Time Associated Diagnosis Comments RAD ONC ARIA SESSION SUMMARY 02/05/2024 12:55 PM DOLLY OPERATOR documented in this encounter Results * RAD ONC ARIA SESSION SUMMARY (02/05/2024 12:55 PM DOLLY OPERATOR) Course Name C1_BLADDER_ 2023 ARIA Course [...] (cGy) 5,500 ARIA 02/05/2024 12:5 5 PM DOLLY OPERATOR us Not In File Miscellaneous RADIATION ONCOLOGY ORD ERABLES Final Result ARIA documented in this encounter Visit Diagnoses Not on filedocumented in this encounter Care Teams Java Grails Developer Relationship Specialty Start Date End Date Nikky Reyes MD 3417 [facility] 2 [place] [address] PCP - General Family Practice 12/15/23 [place] [address] [place] [address] MEDICAL ONCOLOGY, [facility] 180 [place], [place] [phone] Medical Oncologist/Disability Specialist Hematology and Oncology 12/15/23 Kwaku Martin MD [address] [place] [address] Consulting Physician Urology 12/15/23 Richard Hargrove MD 1418 [facility] 160 [place], [place] [phone] Radiation Oncologist Radiation Oncology 01/08/24 Adelso Quiñones [place] [address] [place] [address] Surgeon Urology 01/22/24 documented as of this encounter
--- OUTSIDE RECORDS SUMMARY | 2024-04-12 11:36 | XMS_ITS | Encounter Summary ---
Author Organization [facility] Healthcare Address [address] [place] [address] Care Team Providers Care Curriculum Advisory Teacher Name Role Phone Nikky Reyes MD Primary Care Provider Venkat Vivar DO Unavailable [phone] Kwaku Martin MD Unavailable [phone] Richard Hargrove MD Unavailable [phone] Adelso Quiñones MD Unavailable [phone] Reason for Visit * Reason Comments OTV Encounter Details Date Type Department Care Team ([facility] Contact Info) Description 02/13/2024 OTV [facility] Medical Office Building 2 Radiation Oncology [address] [place] [address] Richard Hargrove MD [address] [place], [place] [address] Social History Tobacco Use Types Packs/Day Years [...] on file Legal Sex Male 2:03 AM HIV PREVENTION SPECIALIST Gender Identity Not on file Sexual Orientation Not on file Occupation Industry Job Start Date Job End Date Retired Not on file Not on file Not on file documented as of this encounter Last Filed Vital Signs Vital Sign Reading Time Taken Comments Blood Pressure 114/77 02/13/2024 8:54 AM HIV PREVENTION SPECIALIST Pulse 70 02/13/2024 8:54 AM HIV PREVENTION SPECIALIST Temperature - - Respiratory Rate - - Oxygen Saturation 99% 02/13/2024 8:54 AM HIV PREVENTION SPECIALIST Inhaled Oxygen Concentration - - Weight 89.8 kg (198 lb) 02/13/2024 8:54 AM HIV PREVENTION SPECIALIST Height - - Body Mass Index 26.53 2024 12:58 PM HIV PREVENTION SPECIALIST documented in this encounter Progress Notes * Richard Hargrove MD - 02/13/2024 8:54 AM CST PATIENT NAME: Venkat Aranda DATE OF : 1950 TREATING PHYSICIAN:Richard Hargrove MD DATE OF SERVICE: 02/13/2024 RADIATION ONCOLOGY ON TREATMENT VISIT NOTE DIAGNOSIS:: Cancer Staging Malignant neoplasm of urinary bladder (HCC) Staging form: Urinary Bladder, AJCC 8th Edition - Clinical stage from 12/05/2023: Stage II (cT2, cN0, cM0) - Signed by Chayo Card MD on 01/22/2024 TREATMENT: Radiation Treatments Active Plans BLADDER Most recent treatment: Dose planned: 275 cGy (fraction 10 on 02/13/2024) Total: Dose planned: 5,500 cGy Elapsed Days: 11 Reference Points BLADDER Most recent treatment: Dose given: 275 cGy (on 02/13/2024) Total: Dose given: 2,750 cGy Elapsed Days: 11 Radiation Treatments No historical radiation treatments to show. SUBJECTIVE: The patient states that he is doing well. Today he has no complaints. EXAM: BP 114/77 Pulse 70 Wt 89.8 kg (198 lb) SpO2 99% BMI 26.53 kg/m?? Pain Score and Location 02/13/24 0854 PainSc: 0-No pain No acute distress. No skin changes. Urinary tract effects: 0 - None Gastrointestinal effects: 0 - None Consitutional effects: 0 - None ASSESSMENT: No side effects PLAN: Continue with treatment RAD ONC PAIN PLAN: The patient is not currently having any pain that requires changes in pain management. PREVENTION SPECIALIST documented in this encounter Plan of Treatment Not on file documented as of this encounter Visit Diagnoses Not on filedocumented in this encounter Care Teams Curriculum Advisory Teacher Relationship Specialty Start Date End Date Nikky Reyes MD 3417 [facility] 2 [place] [address] PCP - General Family Practice 12/15/23 [place] [address] [place] [address] MEDICAL ONCOLOGY, [facility] 180 [place] [address] Medical Oncologist/Geoscience Technician Hematology and Oncology 12/15/23 Kwaku Martin MD [address] [place] [address] Consulting Physician Urology 12/15/23 Richard Hargrove MD [address] [place] [address] 160 [place], [place] [id number] Radiation Oncologist Radiation Oncology 01/08/24 Adelso Qu[place] [address] [address] Surgeon Urology 01/22/24 documented as of this encounter
--- OUTSIDE RECORDS SUMMARY | 2024-04-12 11:36 | XMS_ITS | Encounter Summary ---
Author Organization [facility] Healthcare Address [address] [place] [address] Care Team Providers Care Top Cleaner Name Role Phone Nikky Reyes MD Primary Care Provider Venkat Vivar DO Unavailable [phone] Kwaku Martin MD Unavailable [phone] Richard Hargrove MD Unavailable [phone] Adelso Quiñones MD Unavailable [phone] Encounter Details Date Type Department Care Team (Late st Contact Info) Description 02/11/2024 Orders Only RAD ONC TREATMENTS Miscellaneous, [...] on file Legal Sex Male 2:03 AM POT FIREMAN Gender Identity Not on file Sexual Orientation Not on file Occupation Industry Job Start Date Job End Date Retired Not on file Not on file Not on file documented as of this encounter Plan of Treatment Not on file documented as of this encounter Procedures Procedure Name Priority Date/Time Associated Diagnosis Comments RAD ONC ARIA SESSION SUMMARY 02/11/2024 8:47 AM POT FIREMAN documented in this encounter Results * RAD ONC ARIA SESSION SUMMARY (02/11/2024 8:47 AM POT FIREMAN) Course Name C1_BLADDER_ 2023 ARIA Course Plan Date 01/22/2024 3:44 PM ARIA Elapsed Days 9 ARIA Treatment Start Date 2024 ARIA Treatment Site BLADDER ARIA Dose Given To Date (cGy) 2,200 ARIA Session Dosage Given (cGy) 275 ARIA Plan ID BLADDER ARIA Fractions Treated 8 ARIA Prescribed Dose Per Fraction (cGy) 275 ARIA Prescribed Total Dose (cGy) 5,500 ARIA 02/11/2024 8:47 AM POT FIREMAN us Not In File Miscellaneous RADIATION ONCOLOGY ORD ERABLES Final Result ARIA documented in this encounter Visit Diagnoses Not on filedocumented in this encounter Care Teams Top Cleaner Relationship Specialty Start Date End Date Nikky Reyes MD [facility]7 [facility] 2 [place] [address] PCP - General Family Practice 12/15/23 [place] [address] [place] [address] MEDICAL ONCOLOGY, [facility] 180 [place], [place] [phone] Medical Oncologist/Meteorologist In Charge Hematology and Oncology 12/15/23 Kwaku Martin MD [address] [place] [address] Consulting Physician Urology 12/15/23 Richard Hargrove MD 1418 [facility] 160 [place], [place] [address] Radiation Oncologist Radiation Oncology 01/08/24 Adelso Quiñones [place] [address] [place] [address] Surgeon Urology 01/22/24 documented as of this encounter
--- OUTSIDE RECORDS SUMMARY | 2024-04-12 11:36 | XMS_ITS | Encounter Summary ---
Author Organization [facility] Healthcare Address [address] [place] [address] Care Team Providers Care Home Aid Name Role Phone Nikky Reyes MD Primary Care Provider Venkat Vivar DO Unavailable [phone] Kwaku Martin MD Unavailable [phone] Richard Hargrove MD Unavailable [phone] Adelso Quiñones MD Unavailable [phone] Encounter Details Date Type Department Care Team (Late st Contact Info) Description 2024 11:15 AM MANAGER CONFIGURATION Treatment [facility] Medical Office Building 2 Radiation Oncology [address] [place], [place] [phone] Richard Hargrove MD [address] [place] [address] Social History Tobacco Use Types Packs/Day Years [...] file Legal Sex Male 2:03 AM MANAGER CONFIGURATION Gender Identity Not on file Sexual Orientation Not on file Occupation Industry Job Start Date Job End Date Retired Not on file Not on file Not on file documented as of this encounter Plan of Treatment Not on file documented as of this encounter Visit Diagnoses Not on filedocumented in this encounter Care Teams Home Aid Relationship Specialty Start Date End Date Nikky Reyes MD [facility] [facility] [address] [place], [place] [phone] PCP - General Family Practice 12/15/23 Venkat Vivar DO 1418 [facility] MEDICAL ONCOLOGY, [facility] 180 [place] [address] Medical Oncologist/Claim Processor Hematology and Oncology 12/15/23 Kwaku Martin MD 1 [place] [address] Consulting Physician Urology 12/15/23 Richard Hargrove MD 1418 [facility] 160 [place], [place] [address] Radiation Oncologist Radiation Oncology 01/08/24 Adelso Quiñones [place] [address] [place] [address] Surgeon Urology 01/22/24 documented as of this encounter
--- OUTSIDE RECORDS SUMMARY | 2024-04-12 11:36 | XMS_ITS | Encounter Summary ---
Author Organization [facility] Healthcare Address [address] [place] [address] Care Team Providers Care Dry Box Tender Name Role Phone Nikky Reyes MD Primary Care Provider Venkat Vivar DO Unavailable [phone] Kwaku Martin MD Unavailable [phone] Richard Hargrove MD Unavailable [phone] Adelso Quiñones MD Unavailable [phone] Encounter Details Date Type Department Care Team (Late st Contact Info) Description 02/04/2024 Orders Only RAD ONC TREATMENTS Miscellaneous, [...] file Legal Sex Male 2:03 AM SOLID WASTE LANDFILL TECHNICIAN Gender Identity Not on file Sexual Orientation Not on file Occupation Industry Job Start Date Job End Date Retired Not on file Not on file Not on file documented as of this encounter Plan of Treatment Not on file documented as of this encounter Procedures Procedure Name Priority Date/Time Associated Diagnosis Comments RAD ONC ARIA SESSION SUMMARY 02/04/2024 1:54 PM SOLID WASTE LANDFILL TECHNICIAN documented in this encounter Results * RAD ONC ARIA SESSION SUMMARY (02/04/2024 1:54 PM SOLID WASTE LANDFILL TECHNICIAN) Course Name C1_BLADDER_ 2023 ARIA Course Plan Date 01/22/2024 3:44 PM ARIA Elapsed Days 2 ARIA Treatment Start Date 2024 ARIA Treatment Site BLADDER ARIA Dose Given To Date (cGy) 825 ARIA Session Dosage Given (cGy) 275 ARIA Plan ID BLADDER ARIA Fractions Treated 3 ARIA Prescribed Dose Per Fraction (cGy) 275 ARIA Prescribed Total Dose (cGy) 5,500 ARIA 02/04/2024 1:54 PM SOLID WASTE LANDFILL TECHNICIAN us Not In File Miscellaneous RADIATION ONCOLOGY ORD ERABLES Final Result ARIA documented in this encounter Visit Diagnoses Not on filedocumented in this encounter Care Teams Dry Box Tender Relationship Specialty Start Date End Date Nikky Reyes MD [facility]7 [facility] 2 [place] [address] PCP - General Family Practice 12/15/23 Venkat Vivar DO [address] [place] [address] MEDICAL ONCOLOGY, [facility] 180 [place], [place] [phone] Medical Oncologist/Quality Reviewer Hematology and Oncology 12/15/23 Kwaku Martin MD [address] [place] [address] Consulting Physician Urology 12/15/23 Richard Hargrove MD 1418 [facility] 160 [place], [place] [phone] Radiation Oncologist Radiation Oncology 01/08/24 Adelso Quiñones [place] [address] [place] [address] Surgeon Urology 01/22/24 documented as of this encounter
--- OUTSIDE RECORDS SUMMARY | 2024-04-12 11:36 | XMS_ITS | Encounter Summary ---
Author Organization [facility] Healthcare Address [address] [place] [address] Care Team Providers Care Hand Candy Cutter Name Role Phone Nikky Reyes MD Primary Care Provider Venkat Vivar DO Unavailable [phone] Kwaku Martin MD Unavailable [phone] Richard Hargrove MD Unavailable [phone] Adelso Quiñones MD Unavailable [phone] Encounter Details Date Type Department Care Team (Late st Contact Info) Description 02/10/2024 8:30 AM SALESFORCE SPECIALIST Treatment [facility] Medical Office Building 2 Radiation Oncology [address] [place] [address] Social History Tobacco Use Types Packs/Day Years [...] on file Legal Sex Male 2:03 AM SALESFORCE SPECIALIST Gender Identity Not on file Sexual Orientation Not on file Occupation Industry Job Start Date Job End Date Retired Not on file Not on file Not on file documented as of this encounter Plan of Treatment Not on file documented as of this encounter Visit Diagnoses Not on filedocumented in this encounter Care Teams Hand Candy Cutter Relationship Specialty Start Date End Date Nikky Reyes MD 34[address] [facility] [address] 2 [place] [address] PCP - General Family Practice 12/15/23 [place] [address] [place] [address] MEDICAL ONCOLOGY, [facility] 180 [place] [address] Medical Oncologist/Principal Bioinformatics Specialist Hematology and Oncology 12/15/23 Kwaku Martin MD [address] [place] [address] Consulting Physician Urology 12/15/23 [place] [address] [place] [address] 160 [place] [address] Radiation Oncologist Radiation Oncology 01/08/24 Adelso Quiñones [place] [address] [place] [address] Surgeon Urology 01/22/24 documented as of this encounter
--- OUTSIDE RECORDS SUMMARY | 2024-04-12 11:36 | XMS_ITS | Encounter Summary ---
Author Organization [facility] Healthcare Address [address] [place] [address] Care Team Providers Care Counter Intelligence Technician Name Role Phone Nikky Reyes MD Primary Care Provider Venkat Vivar DO Unavailable [phone] Kwaku Martin MD Unavailable [phone] Richard Hargrove MD Unavailable [phone] Adelso Quiñones MD Unavailable [phone] Encounter Details Date Type Department Care Team (Late st Contact Info) Description 02/09/2024 1:00 PM TELEPHONE ORDER DISPATCHER Treatment [facility] Medical Office Building 2 Radiation Oncology [address] [place] [address] Social History Tobacco Use Types Packs/Day Years [...] on file Legal Sex Male 2:03 AM TELEPHONE ORDER DISPATCHER Gender Identity Not on file Sexual Orientation Not on file Occupation Industry Job Start Date Job End Date Retired Not on file Not on file Not on file documented as of this encounter Plan of Treatment Not on file documented as of this encounter Visit Diagnoses Not on filedocumented in this encounter Care Teams Counter Intelligence Technician Relationship Specialty Start Date End Date Nikky Reyes MD 3417 [facility] [address] [place] [address] PCP - General Family Practice 12/15/23 [place] [address] [place] [address] MEDICAL ONCOLOGY, [facility] [address] [place] [address] Medical Oncologist/Undercollar Baster Hematology and Oncology 12/15/23 Kwaku Martin MD [address] [place] [address] Consulting Physician Urology 12/15/23 [place] [address] [place] [address] 160 [place] [address] Radiation Oncologist Radiation Oncology 01/08/24 Adelso Quiñones [place] [address] [place] [address] Surgeon Urology 01/22/24 documented as of this encounter
--- OUTSIDE RECORDS SUMMARY | 2024-04-12 11:36 | XMS_ITS | Encounter Summary ---
Author Organization [facility] Address [address] [place] [address] Phone Care Team Providers Care Computator Name Role Phone Nikky Reyes MD Primary Care Provider Venkat Vivar DO Unavailable Kwaku Martin MD Unavailable [phone] Richard Hargrove MD Unavailable [phone] Adelso Quiñones MD Unavailable [phone] Encounter Details Date Type Department Care Team (Late st Contact Info) Description 02/12/2024 Orders Only [facility] Oncology 1418 [facility] [address] [place] [phone] Venkat Vivar DO 1418 [facility] [address] [place] [address] Social History Tobacco Use Types [...] on file Legal Sex Male 2:03 AM PERSONNEL ASSOCIATE Gender Identity Not on file Sexual Orientation Not on file Occupation Industry Job Start Date Job End Date Retired Not on file Not on file Not on file documented as of this encounter Plan of Treatment Not on file documented as of this encounter Visit Diagnoses Not on filedocumented in this encounter Care Teams Computator Relationship Specialty Start Date End Date Nikky Reyes MD 3417 [facility] [address] [place] [address] PCP - General Family Practice 12/15/23 Venkat Vivar DO [address] [place] [address] [facility] 180 [place] [address] Medical Oncologist/Manager Hotel Hematology and Oncology 12/15/23 Kwaku Martin MD [address] [place] [address] Consulting Physician Urology 12/15/23 Richard Hargrove MD [address] [place] [address] 160 [place] [address] Radiation Oncologist Radiation Oncology 01/08/24 Adelso Qu[place] [address] [place] [address] Surgeon Urology 01/22/24 documented as of this encounter
--- OUTSIDE RECORDS SUMMARY | 2024-04-12 11:36 | XMS_ITS | Encounter Summary ---
Author Organization [facility] Healthcare Address [address] [place] [address] Care Team Providers Care Pneumatic System Conveyor Operator Name Role Phone Nikky Reyes MD Primary Care Provider Venkat Vivar DO Unavailable [phone] Kwaku Martin MD Unavailable [phone] Richard Hargrove MD Unavailable [phone] Adelso Quiñones MD Unavailable [phone] Encounter Details Date Type Department Care Team (Late st Contact Info) Description 2024 11:20 AM ENCAPSULATOR Treatment [facility] Medical Office Building 2 Radiation Oncology [address] [place], [place] [id number] Richard Hargrove MD [address] [place] [address]609 Social History Tobacco Use Types Packs/Day Years [...] on file Legal Sex Male 2:03 AM ENCAPSULATOR Gender Identity Not on file Sexual Orientation Not on file Occupation Industry Job Start Date Job End Date Retired Not on file Not on file Not on file documented as of this encounter Plan of Treatment Not on file documented as of this encounter Visit Diagnoses Not on filedocumented in this encounter Care Teams Pneumatic System Conveyor Operator Relationship Specialty Start Date End Date Nikky Reyes MD [facility] [address] [place], [place] [id number] PCP - General Family Practice 12/15/23 Venkat Vivar DO 1418 [facility] MEDICAL ONCOLOGY, [facility] 180 [place] [address] Medical Oncologist/[place] Refinisher Hematology and Oncology 12/15/23 Kwaku Martin MD 1 [place] [address] Consulting Physician Urology 12/15/23 Richard Hargrove MD 1418 [facility] 160 [place], [place] [address] Radiation Oncologist Radiation Oncology 01/08/24 Adelso Quiñones [place] [address] [place] [address] Surgeon Urology 01/22/24 documented as of this encounter
--- OUTSIDE RECORDS SUMMARY | 2024-04-12 11:36 | XMS_ITS | Encounter Summary ---
Author Organization [facility] Healthcare Address [address] [place] [address] Care Team Providers Care Cut Out Machine Operator Name Role Phone Nikky Reyes MD Primary Care Provider Venkat Vivar DO Unavailable [phone] Kwaku Martin MD Unavailable [phone] Richard Hargrove MD Unavailable [phone] Adelso Quiñones MD Unavailable [phone] Encounter Details Date Type Department Care Team (Late st Contact Info) Description 02/06/2024 9:30 AM WELT SOLE LAYER Treatment [facility] Medical Office Building 2 Radiation Oncology [address] [place] [address] Social History Tobacco Use Types Packs/Day Years [...] on file Legal Sex Male 2:03 AM WELT SOLE LAYER Gender Identity Not on file Sexual Orientation Not on file Occupation Industry Job Start Date Job End Date Retired Not on file Not on file Not on file documented as of this encounter Plan of Treatment Not on file documented as of this encounter Visit Diagnoses Not on filedocumented in this encounter Care Teams Cut Out Machine Operator Relationship Specialty Start Date End Date Nikky Reyes MD 3417 [facility] [address] [place] [address] PCP - General Family Practice 12/15/23 [place] [address] [place] [address] MEDICAL ONCOLOGY, [facility] 180 [place] [address] Medical Oncologist/Truck Body Builder Hematology and Oncology 12/15/23 Kwaku Martin MD [address] [place] [address] Consulting Physician Urology 12/15/23 [place] [address] [place] [address] 160 [place] [address] Radiation Oncologist Radiation Oncology 01/08/24 Adelso Quiñones [place] [address] [place] [address] Surgeon Urology 01/22/24 documented as of this encounter
--- OUTSIDE RECORDS SUMMARY | 2024-04-12 11:36 | XMS_ITS | Encounter Summary ---
Author Organization [facility] Healthcare Address [address] [place] [address] Care Team Providers Care Ac/Dc Rewinder Name Role Phone Nikky Reyes MD Primary Care Provider Venkat Vivar DO Unavailable [phone] Kwaku Martin MD Unavailable [phone] Richard Hargrove MD Unavailable [phone] Adelso Quiñones MD Unavailable [phone] Encounter Details Date Type Department Care Team (Late st Contact Info) Description 02/12/2024 Orders Only RAD ONC TREATMENTS Miscellaneous, [...] on file Legal Sex Male 2:03 AM ADVERTISING SALES CONSULTANT Gender Identity Not on file Sexual Orientation Not on file Occupation Industry Job Start Date Job End Date Retired Not on file Not on file Not on file documented as of this encounter Plan of Treatment Not on file documented as of this encounter Procedures Procedure Name Priority Date/Time Associated Diagnosis Comments RAD ONC ARIA SESSION SUMMARY 02/12/2024 1:05 PM ADVERTISING SALES CONSULTANT documented in this encounter Results * RAD ONC ARIA SESSION SUMMARY (02/12/2024 1:05 PM ADVERTISING SALES CONSULTANT) Course Name [email or web address]_ 2023 ARIA Course Plan Date 01/22/2024 3:44 PM ARIA Elapsed Days 10 ARIA Treatment Start Date 2024 ARIA Treatment Site BLADDER ARIA Dose Given To Date (cGy) 2,475 ARIA Session Dosage Given (cGy) 275 ARIA Plan ID BLADDER ARIA Fractions Treated 9 ARIA Prescribed Dose Per Fraction (cGy) 275 ARIA Prescribed Total Dose (cGy) 5,500 ARIA 02/12/2024 1:05 PM ADVERTISING SALES CONSULTANT us Not In File Miscellaneous RADIATION ONCOLOGY ORD ERABLES Final Result ARIA documented in this encounter Visit Diagnoses Not on filedocumented in this encounter Care Teams Ac/Dc Rewinder Relationship Specialty Start Date End Date Nikky Reyes MD [facility]7 [facility] 2 [place] [address] PCP - General Family Practice 12/15/23 [place] [address] [place] [address] MEDICAL ONCOLOGY, [facility] 180 [place], [place] [phone] Medical Oncologist/Grocery Sacker Hematology and Oncology 12/15/23 Kwaku Martin MD [address] [place] [address] Consulting Physician Urology 12/15/23 Richard Hargrove MD 1418 [facility] 160 [place], [place] [id number] Radiation Oncologist Radiation Oncology 01/08/24 Adelso Quiñones [place] [address] [place] [address] Surgeon Urology 01/22/24 documented as of this encounter
--- OUTSIDE RECORDS SUMMARY | 2024-04-12 11:36 | XMS_ITS | Encounter Summary ---
Author Organization [facility] Healthcare Address [address] [place] [address] Care Team Providers Care Plug Saw Operator Name Role Phone Nikky Reyes MD Primary Care Provider Venkat Vivar DO Unavailable [phone] Kwaku Martin MD Unavailable [phone] Richard Hargrove MD Unavailable [phone] Adelso Quiñones MD Unavailable [phone] Reason for Visit * Episode Based Medications (Routine) - Closed Specialty Diagnoses / Procedures Referred By Leatha t Referred To Contact Diagnoses Encounter for person encountering health services Malignant neoplasm of urinary bladder, unspecified site (HCC) Venkat Vivar, [address] [place] [address] Phone: tel: fax: [address] [address] Phone: tel: fax: Referral ID Status Reason Start Date Expiration Date Visits Re quested Visits Authorized [id number] Closed 01/05/2024 03/09/2024 1 70 Encounter Details Date Type Department Care Team ([facility] st Contact Info) Description 02/05/2024 1:15 PM ENGRAVER RUBBER Lab [facility] at [address] [address] Encounter for person encountering health services; Malignant [...] on file Legal Sex Male 2:03 AM ENGRAVER RUBBER Gender Identity Not on file Sexual Orientation Not on file Occupation Industry Job Start Date Job End Date Retired Not on file Not on file Not on file documented as of this encounter Plan of Treatment Not on file documented as of this encounter Procedures Procedure Name Priority Date/Time Associated Diagnosis Comments EGFR Routine 02/05/2024 1:18 PM ENGRAVER RUBBER Encounter for person encountering health services Malignant neoplasm of urinary bladder, unspecified site (HCC) DIFFERENTIAL AUTO Routine 02/05/2024 1:1 8 PM ENGRAVER RUBBER Encounter for person encountering health services Malignant neoplasm of urinary bladder, unspecified site (HCC) CBC WITH AUTO DIFFERENTIAL Routine 02/05/2024 1:18 PM ENGRAVER RUBBER Encounter for person encountering health services Malignant neoplasm of urinary bladder, unspecified site (HCC) COMPREHENSIVE METABOLIC PANEL Routine 02/05/2024 1:18 PM ENGRAVER RUBBER Encounter for person encountering health services Malignant neoplasm of urinary bladder, unspecified site (HCC) documented in this encounter Results * eGFR (02/05/2024 1:18 PM ENGRAVER RUBBER) eGFR >90 >=60 mL/min/1. 73 m2 Comment: [...] was last reviewed 2021. Testing performed by: [address] [address] Blood 02/05/2024 1:18 PM ENGRAVER RUBBER 02/05/2024 1:19 PM ENGRAVER RUBBER us Venakt Vivar DO LAB BLOOD ORDERABLES Final R esult [facility] [address] [facility] Department [place] [address] * Differential, auto (02/05/2024 1:18 PM ENGRAVER RUBBER) Neutrophil abs 4.0 1.5 - 6.5 K/cumm Comment:Testing performed by : [address] [address] Imm gran abs 0.0 0.0 - 0.1 K/cumm JAIME PINEDA Comment:Testing performed by : [address] [address] Lymphocyte abs 1.3 0.8 - 3.3 K/cumm JAIME Comment:Testing performed by : [address] [address] Monocyte abs 0.4 0.2 - 0.8 K/cumm [facility] Comment:Testing performed by : [address] [address] Eosinophil abs 0.2 0.0 - 0.5 K/cumm [facility] Comment:Testing performed by : [address] [address] Basophil abs 0.0 0.0 - 0.1 K/cumm [facility] Comment:Testing performed by : [address] [address] Neutrophil pct 67.1 % [facility] Comment: Interpretive Data Percent cell count reference ranges are not reported, since discordance with absolute values may lead to misinterpretation of CBC data. Current Interpretive Data was last revised on 2017. Testing performed by: [address] [address] Imm gran pct 0.3 % [facility] Comment: Interpretive Data Percent cell count reference ranges are not reported, since discordance with absolute values may lead to misinterpretation of CBC data. Current Interpretive Data was last revised on 2017. Testing performed by: [address] [address] Lymphocyte pct 21.0 % [facility] Comment: Interpretive Data Percent cell count reference ranges are not reported, since discordance with absolute values may lead to misinterpretation of CBC data. Current Interpretive Data was last revised on 2017. Testing performed by: [address] [address] Monocyte pct 6.9 % [facility] Comment: Interpretive Data Percent cell count reference ranges are not reported, since discordance with absolute values may lead to misinterpretation of CBC data. Current Interpretive Data was last revised on 2017. Testing performed by: [address] [address] Eosinophil pct 4.0 % [facility] Comment: Interpretive Data Percent cell count reference ranges are not reported, since discordance with absolute values may lead to misinterpretation of CBC data. Current Interpretive Data was last revised on 2017. Testing performed by: [address] [address] Basophil pct 0.7 % JAIME Comment: Interpretive Data Percent cell count reference ranges are not reported, since discordance with absolute values may lead to misinterpretation of CBC data. Current Interpretive Data was last revised on 2017. Testing performed by: [address] [address] Blood 02/05/2024 1:18 PM ENGRAVER RUBBER 02/05/2024 1:19 PM ENGRAVER RUBBER us Venkat Vivar DO LAB BLOOD ORDERABLES Final R esult JAIME [address] [facility] Department [place] [address] * Comprehensive metabolic panel (02/05/2024 1:18 PM ENGRAVER RUBBER) Sodium 140 135 - 145 mmol/L Comment:Testing performed by : [address] [address] Potassium, pl 4.2 3.3 - 4.9 mmol/L JAIME Comment:Testing performed by : [address] [address] Chloride 105 97 - 110 mmol/L JAIME Comment:Testing performed by : [address] [address] CO2 27 22 - 32 mmol/L JAIME Comment:Testing performed by : [address] [address] Anion gap 8 2 - 15 mmol/L JAIME Comment:Testing performed by : [address] [address] BUN 15 6 - 25 mg/dL JAIME Comment:Testing performed by : [address] [address] Creatinine 0.80 0.80 - 1.30 mg/dL JAIME Comment:Testing performed by : [address] [address] Glucose 100 70 - 199 mg/dL JAIME [...] last revised 2022. Testing performed by: [address] [address] Calcium 8.8 8.5 - 10.3 mg/dL JAIME Comment:Testing performed by : [address] [address] Bilirubin, total 0.4 0.1 - 1.2 mg/dL JAIME Comment:Testing performed by : [address] [address] Protein, pl 6.8 6.5 - 8.5 g/dL JAIME Comment:Testing performed by : [address] [address] Albumin 3.9 3.5 - 5.0 g/dL JAIME Comment:Testing performed by : [address] [address] Alk phos 68 40 - 130 Units/L JAIME Comment:Testing performed by : [address] [address] ALT 15 7 - 55 Units/L JAIME Comment:Testing performed by : [address] [address] AST 15 10 - 50 Units/L JAIME Comment:Testing performed by : [address] [address] Blood 02/05/2024 1:18 PM ENGRAVER RUBBER 02/05/2024 1:19 PM ENGRAVER RUBBER us Venkat Vivar DO LAB BLOOD ORDERABLES Final R esult JAIME [address] [facility] Department [place] [address] * (ABNORMAL) CBC with auto differential (02/05/2024 1:18 PM ENGRAVER RUBBER) WBC 6.0 3.8 - 9.9 K/cumm Comment:Testing performed by : [address] [address] Hgb 11.5(L) 13.0 - 17.5 g/dL JAIME Comment:Testing performed by : [address] [address] Hct 33.3(L) 38.9 - 50.3 % JAIME Comment:Testing performed by : [address] [address] Plt 173 150 - 400 K/cumm JAIME Comment:Testing performed by : [address] [address] MPV 8.9(L) 9.1 - 12.3 fL JAIME Comment:Testing performed by : [address] [address] RBC 3.52(L) 4.30 - 5.80 M/cumm JAIME Comment:Testing performed by : [address] [address] MCV 94.6 81.3 - 96.4 fL JAIME Comment:Testing performed by : [address] [address] MCH 32.7 27.1 - 33.3 pg JAIME Comment:Testing performed by : [address] [address] MCHC 34.5 32.3 - 35.7 g/dL JAIME Comment:Testing performed by : [address] [address] RDW CV 14.2 11.1 - 14.9 % JAIME Comment:Testing performed by : [address] [address] RDW SD 48.6(H) 35.7 - 48.1 fL JAIME Comment:Testing performed by : [facility], [address] [place] [address]., [address] NRBC abs 0.00 0.00 - 0.01 K/cumm JAIME Comment:Testing performed by : [facility], [address] [place] [address]., [address] Blood 02/05/2024 1:18 PM ENGRAVER RUBBER 02/05/2024 1:19 PM ENGRAVER RUBBER Venkat Vivar DO LAB BLOOD ORDERABLES Final R esult [facility] [address] [facility] Department [place] [address] documented in this encounter Visit Diagnoses Diagnosis Encounter for person encountering health services Malignant neoplasm of urinary bladder, unspecified site (HCC) documented in this encounter Orders Appointment Requests Count Last Ordered Date Fi rst Ordered Date ONCBCN LAB APPOINTMENT 1 02/05/2024 documented in this encounter Care Teams Plug Saw Operator Relationship Specialty Start Date End Date Nikky Reyes MD 3417 [facility] 2 [place] [address] PCP - General Family Practice 12/15/23 Venkat Vivar DO [address] [place] [address] MEDICAL ONCOLOGY, [facility] 180 [place], [place] [id number] Medical Oncologist/Clinique Counter Manager Hematology and Oncology 12/15/23 Kwaku Martin MD [address] [place] [address] Consulting Physician Urology 12/15/23 Richard Hargrove MD [address] [place] [address] 160 [place], [place] [address] Radiation Oncologist Radiation Oncology 01/08/24 Adelso Quiñones [place] [address] [place] [address] Surgeon Urology 01/22/24 documented as of this encounter
--- OUTSIDE RECORDS SUMMARY | 2024-04-12 11:36 | XMS_ITS | Encounter Summary ---
Author Organization [facility] Healthcare Address [address] [place] [address] Care Team Providers Care Roofer Helper Name Role Phone Nikky Reyes MD Primary Care Provider Venkat Vivar DO Unavailable [phone] Kwaku Martin MD Unavailable [phone] Richard Hargrove MD Unavailable [phone] Adelso Quiñones MD Unavailable [phone] Encounter Details Date Type Department Care Team (Late st Contact Info) Description 02/10/2024 Orders Only RAD ONC TREATMENTS Miscellaneous, [...] on file Legal Sex Male 2:03 AM HANDKERCHIEF FOLDER Gender Identity Not on file Sexual Orientation Not on file Occupation Industry Job Start Date Job End Date Retired Not on file Not on file Not on file documented as of this encounter Plan of Treatment Not on file documented as of this encounter Procedures Procedure Name Priority Date/Time Associated Diagnosis Comments RAD ONC ARIA SESSION SUMMARY 02/10/2024 8:44 AM HANDKERCHIEF FOLDER documented in this encounter Results * RAD ONC ARIA SESSION SUMMARY (02/10/2024 8:44 AM HANDKERCHIEF FOLDER) Course Name [email or web address]_BLADDER_ 2023 ARIA Course Plan Date 01/22/2024 3:44 PM ARIA Elapsed Days 8 ARIA Treatment Start Date 2024 ARIA Treatment Site BLADDER ARIA Dose Given To Date (cGy) 1,925 ARIA Session Dosage Given (cGy) 275 ARIA Plan ID BLADDER ARIA Fractions Treated 7 ARIA Prescribed Dose Per Fraction (cGy) 275 ARIA Prescribed Total Dose (cGy) 5,500 ARIA 02/10/2024 8:44 AM HANDKERCHIEF FOLDER us Not In File Miscellaneous RADIATION ONCOLOGY ORD ERABLES Final Result ARIA documented in this encounter Visit Diagnoses Not on filedocumented in this encounter Care Teams Roofer Helper Relationship Specialty Start Date End Date Nikky Reyes MD 3417 [facility] 2 [place] [address] PCP - General Family Practice 12/15/23 [place] [address] [place] [address] MEDICAL ONCOLOGY, [facility] 180 [place], [place] [address] Medical Oncologist/Global Sales Director Hematology and Oncology 12/15/23 Kwaku Martin MD [address] [place] [address] Consulting Physician Urology 12/15/23 [place] [address] [place] [address] 160 [place], [place] [address] Radiation Oncologist Radiation Oncology 01/08/24 Adelso Quiñones [place] [address] [place] [address] Surgeon Urology 01/22/24 documented as of this encounter
--- OUTSIDE RECORDS SUMMARY | 2024-04-12 11:36 | XMS_ITS | Encounter Summary ---
Author Organization [facility] Address [address] [place] [address] Phone Care Team Providers Care Database Security Expert Name Role Phone Nikky Reyes MD Primary Care Provider Venkat Vivar DO Unavailable Kwaku Martin MD Unavailable [phone] Richard Hargrove MD Unavailable [phone] Adelso Quiñones MD Unavailable [phone] Encounter Details Date Type Department Care Team (Late st Contact Info) Description 02/04/[address] [facility] Oncology 14[address] [facility] [address] [place] [address] Venkat Vivar DO 1418 [facility] [place] 180 [place], [place] [id number] Encounter for person encountering health services (Primary [...] on file Legal Sex Male 2:03 AM GLUE MILL OPERATOR Gender Identity Not on file Sexual Orientation Not on file Occupation Industry Job Start Date Job End Date Retired Not on file Not on file Not on file documented as of this encounter Plan of Treatment Not on file documented as of this encounter Visit Diagnoses Diagnosis Encounter for person encountering health services- Primary Malignant neoplasm of urinary bladder, unspecified site (HCC) documented in this encounter Care Teams Database Security Expert Relationship Specialty Start Date End Date Nikky Reyes MD 3417 [facility] [place] 2 [place], [place] [address] PCP - General Family Practice 12/15/23 Venkat Vivar DO 1418 [facility] MEDICAL ONCOLOGY, [facility] 180 [place] [address] Medical Oncologist/Rn Acute Care Hematology and Oncology 12/15/23 Kwaku Martin MD 1 [place] [address] Consulting Physician Urology 12/15/23 Richard Hargrove MD [address] [facility] 160 [place] [address] Radiation Oncologist Radiation Oncology 01/08/24 Adelso Qu[place] [address] [address] [facility] 375 [place] [address] Surgeon Urology 01/22/24 documented as of this encounter
--- OUTSIDE RECORDS SUMMARY | 2024-04-12 11:36 | XMS_ITS | Encounter Summary ---
Author Organization [facility] Address [address] [place] [address] Phone Care Team Providers Care Drafter Assistant Name Role Phone Nikky Reyes MD Primary Care Provider Venkat Vivar DO Unavailable [phone] Kwaku Martin MD Unavailable [phone] Richard Hargrove MD Unavailable [phone] Adelso Quiñones MD Unavailable [phone] Encounter Details Date Type Department Care Team (Late st Contact Info) Description 02/08/2024 Orders Only [facility] Physicians [facility] Oncology [facility] [address] [place] [address] Venkat Vivar DO [address] [address] Social History Tobacco Use Types Packs/Day [...] on file Legal Sex Male 2:03 AM CONSTRUCTION PLUMBER Gender Identity Not on file Sexual Orientation Not on file Occupation Industry Job Start Date Job End Date Retired Not on file Not on file Not on file documented as of this encounter Plan of Treatment Not on file documented as of this encounter Visit Diagnoses Not on filedocumented in this encounter Care Teams Drafter Assistant Relationship Specialty Start Date End Date Nikky Reyes MD 3417 [facility] [address] [place] [address] PCP - General Family Practice 12/15/23 [place] [address] [place] [address] [facility] 180 [place] [address] Medical Oncologist/It Field Technician Hematology and Oncology 12/15/23 Kwaku Martin MD [address] [place] [address] Consulting Physician Urology 12/15/23 Richard Hargrove MD [address] [place] [address] 160 [place] [address] Radiation Oncologist Radiation Oncology 01/08/24 Adelso Quiñones [place] [address] [address] [place] [address] Surgeon Urology 01/22/24 documented as of this encounter
--- OUTSIDE RECORDS SUMMARY | 2024-04-12 11:36 | XMS_ITS | Encounter Summary ---
Author Organization [facility] Healthcare Address [address] [place] [address] Care Team Providers Care Patternmaker Name Role Phone Nikky Reyes MD Primary Care Provider Venkat Vivar DO Unavailable [phone] Kwaku Martin MD Unavailable [phone] Richard Hargrove MD Unavailable [phone] Adelso Quiñones MD Unavailable [phone] Encounter Details Date Type Department Care Team (Late st Contact Info) Description 02/05/2024 12:45 PM FRUIT PRESERVER Treatment [facility] Medical Office Building 2 Radiation Oncology [address] [place] [address] Social History Tobacco Use Types Packs/Day Years [...] on file Legal Sex Male 2:03 AM FRUIT PRESERVER Gender Identity Not on file Sexual Orientation Not on file Occupation Industry Job Start Date Job End Date Retired Not on file Not on file Not on file documented as of this encounter Plan of Treatment Not on file documented as of this encounter Visit Diagnoses Not on filedocumented in this encounter Care Teams Patternmaker Relationship Specialty Start Date End Date Nikky Reyes MD [address] [facility] [address] [place] [address] PCP - General Family Practice 12/15/23 [place] [address] [place] [address] MEDICAL ONCOLOGY, [facility] [address] [place] [address] Medical Oncologist/Supervisor Cutting Department Hematology and Oncology 12/15/23 Kwaku Martin MD [address] [place] [address] Consulting Physician Urology 12/15/23 [place] [address] [place] [address] 160 [place] [address] Radiation Oncologist Radiation Oncology 01/08/24 Adelso Quiñ[place] [address] [place] [address] Surgeon Urology 01/22/24 documented as of this encounter
--- OUTSIDE RECORDS SUMMARY | 2024-04-12 11:36 | XMS_ITS | Encounter Summary ---
Author Organization [facility] Healthcare Address [address] [place] [address] Care Team Providers Care Finished Goods Planner Name Role Phone Nikky Reyes MD Primary Care Provider Venkat Vivar DO Unavailable [phone] Kwaku Martin MD Unavailable [phone] Richard Hargrove MD Unavailable [phone] Adelso Quiñones MD Unavailable [phone] Encounter Details Date Type Department Care Team (Late st Contact Info) Description 02/06/2024 Orders Only RAD ONC TREATMENTS Miscellaneous, [...] on file Legal Sex Male 2:03 AM BACTERIOLOGY TECHNICIAN Gender Identity Not on file Sexual Orientation Not on file Occupation Industry Job Start Date Job End Date Retired Not on file Not on file Not on file documented as of this encounter Plan of Treatment Not on file documented as of this encounter Procedures Procedure Name Priority Date/Time Associated Diagnosis Comments RAD ONC ARIA SESSION SUMMARY 02/06/2024 9:41 AM BACTERIOLOGY TECHNICIAN documented in this encounter Results * RAD ONC ARIA SESSION SUMMARY (02/06/2024 9:41 AM BACTERIOLOGY TECHNICIAN) Course Name [email or web address]_ 2023 ARIA Course Plan Date 01/22/2024 3:44 PM ARIA Elapsed Days 4 ARIA Treatment Start Date 2024 ARIA Treatment Site BLADDER ARIA Dose Given To Date (cGy) 1,375 ARIA Session Dosage Given (cGy) 275 ARIA Plan ID BLADDER ARIA Fractions Treated 5 ARIA Prescribed Dose Per Fraction (cGy) 275 ARIA Prescribed Total Dose (cGy) 5,500 ARIA 02/06/2024 9:41 AM BACTERIOLOGY TECHNICIAN us Not In File Miscellaneous RADIATION ONCOLOGY ORD ERABLES Final Result ARIA documented in this encounter Visit Diagnoses Not on filedocumented in this encounter Care Teams Finished Goods Planner Relationship Specialty Start Date End Date Nikky Reyes MD [facility]7 [facility] 2 [place] [address] PCP - General Family Practice 12/15/23 [place] [address] [place] [address] MEDICAL ONCOLOGY, [facility] 180 [place], [place] [id number] Medical Oncologist/Logistics Solution Manager Hematology and Oncology 12/15/23 Kwaku Martin MD [address] [place] [address] Consulting Physician Urology 12/15/23 Richard Hargrove MD [address] [facility] 160 [place], [place] [address] Radiation Oncologist Radiation Oncology 01/08/24 Adelso Quiñones [place] [address] [place] [address] Surgeon Urology 01/22/24 documented as of this encounter
--- OUTSIDE RECORDS SUMMARY | 2024-04-12 11:36 | XMS_ITS | Encounter Summary ---
Author Organization [facility] Address [address] [place] [address] Phone Care Team Providers Care Retail Sales Merchandiser Name Role Phone Nikky Reyes MD Primary Care Provider Venkat Vivar DO Unavailable Kwaku Martin MD Unavailable [phone] Richard Hargrove MD Unavailable [phone] Adelso Quiñones MD Unavailable [phone] Encounter Details Date Type Department Care Team (Late st Contact Info) Description 02/15/2024 Orders Only [facility] Oncology [address] [facility] [address] [place] [phone] Venkat Vivar DO [address] [facility] [address] [place] [address] Social History Tobacco Use Types [...] file Legal Sex Male 2:03 AM MEDICAL MANAGER Gender Identity Not on file Sexual Orientation Not on file Occupation Industry Job Start Date Job End Date Retired Not on file Not on file Not on file documented as of this encounter Plan of Treatment Not on file documented as of this encounter Visit Diagnoses Not on filedocumented in this encounter Care Teams Retail Sales Merchandiser Relationship Specialty Start Date End Date Nikky Reyes MD [address] [facility] [address] [place] [address] PCP - General Family Practice 12/15/23 Venkat Vivar DO [address] [place] [address] [facility] 180 [place] [address] Medical Oncologist/Registry Np Hematology and Oncology 12/15/23 Kwaku Martin MD [address] [place] [address] Consulting Physician Urology 12/15/23 Richard Hargrove MD [address] [place] [address] 160 [place] [address] Radiation Oncologist Radiation Oncology 01/08/24 Adelso Quiñones [place] [address] [place] [address] Surgeon Urology 01/22/24 documented as of this encounter
--- OUTSIDE RECORDS SUMMARY | 2024-04-12 11:36 | XMS_ITS | Encounter Summary ---
Author Organization [facility] Healthcare Address [address] [place] [address] Care Team Providers Care Sewer Cleaner Name Role Phone Nikky Reyes MD Primary Care Provider Venkat Vivar DO Unavailable [phone] Kwaku Martin MD Unavailable [phone] Richard Hargrove MD Unavailable [phone] Adelso Quiñones MD Unavailable [phone] Encounter Details Date Type Department Care Team (Late st Contact Info) Description 2024 Orders Only RAD ONC TREATMENTS Miscellaneous, [...] on file Legal Sex Male 2:03 AM PATENT SOLICITOR Gender Identity Not on file Sexual Orientation Not on file Occupation Industry Job Start Date Job End Date Retired Not on file Not on file Not on file documented as of this encounter Plan of Treatment Not on file documented as of this encounter Procedures Procedure Name Priority Date/Time Associated Diagnosis Comments RAD ONC ARIA SESSION SUMMARY 2024 11:28 AM PATENT SOLICITOR documented in this encounter Results * RAD ONC ARIA SESSION SUMMARY (2024 11:28 AM PATENT SOLICITOR) Course Name C1_BLADDER_ 2023 ARIA Course Plan Date 01/22/2024 3:44 PM ARIA Elapsed Days 0 ARIA Treatment Start Date 2024 ARIA Treatment Site BLADDER ARIA Dose Given To Date (cGy) 275 ARIA Session Dosage Given (cGy) 275 ARIA Plan ID BLADDER ARIA Fractions Treated 1 ARIA Prescribed Dose Per Fraction (cGy) 275 ARIA Prescribed Total Dose (cGy) 5,500 ARIA 2024 11:2 8 AM PATENT SOLICITOR us Not In File Miscellaneous RADIATION ONCOLOGY ORD ERABLES Final Result ARIA documented in this encounter Visit Diagnoses Not on filedocumented in this encounter Care Teams Sewer Cleaner Relationship Specialty Start Date End Date Nikky Reyes MD [facility] 2 [place] [address] PCP - General Family Practice 12/15/23 [place] [address] [place] [address] MEDICAL ONCOLOGY, [facility] 180 [place], [place] [id number] Medical Oncologist/Professional Poker Player Hematology and Oncology 12/15/23 Kwaku Martin MD [address] [place] [address] Consulting Physician Urology 12/15/23 Richard Hargrove MD 1418 [facility] 160 [place], [place] [phone] Radiation Oncologist Radiation Oncology 01/08/24 Adelso Quiñones [place] [address] [place] [address] Surgeon Urology 01/22/24 documented as of this encounter
--- OUTSIDE RECORDS SUMMARY | 2024-04-12 11:36 | XMS_ITS | Encounter Summary ---
Author Organization [facility] Healthcare Address [address] [place] [address] Care Team Providers Care Blueprint Assembler Name Role Phone Nikky Reyes MD Primary Care Provider Venkat Vivar DO Unavailable [phone] Kwaku Martin MD Unavailable [phone] Richard Hargrove MD Unavailable [phone] Adelso Quiñones MD Unavailable [phone] Encounter Details Date Type Department Care Team (Late st Contact Info) Description 02/04/2024 1:45 PM MANAGING COGNITIVE ENGINEER Treatment [facility] Medical Office Building 2 Radiation Oncology [address] [place] [address] Social History Tobacco Use Types Packs/Day Years [...] on file Legal Sex Male 2:03 AM MANAGING COGNITIVE ENGINEER Gender Identity Not on file Sexual Orientation Not on file Occupation Industry Job Start Date Job End Date Retired Not on file Not on file Not on file documented as of this encounter Plan of Treatment Not on file documented as of this encounter Visit Diagnoses Not on filedocumented in this encounter Care Teams Blueprint Assembler Relationship Specialty Start Date End Date Nikky Reyes MD [address] [facility] [address] [place] [address] PCP - General Family Practice 12/15/23 [place] [address] [place] [address] MEDICAL ONCOLOGY, [facility] 180 [place] [address] Medical Oncologist/Kennel Supervisor Hematology and Oncology 12/15/23 Kwaku Martin MD [address] [place] [address] Consulting Physician Urology 12/15/23 [place] [address] [place] [address] 160 [place] [address] Radiation Oncologist Radiation Oncology 01/08/24 Adelso Quiñones [place] [address] [place] [address] Surgeon Urology 01/22/24 documented as of this encounter
--- OUTSIDE RECORDS SUMMARY | 2024-04-12 11:36 | XMS_ITS | Encounter Summary ---
Author Organization [facility] Healthcare Address [address] [place] [address] Care Team Providers Care Cellular Equipment Installer Name Role Phone Nikky Reyes MD Primary Care Provider Venkat Vivar DO Unavailable [phone] Kwaku Martin MD Unavailable [phone] Richard Hargrove MD Unavailable [phone] Adelso Quiñones MD Unavailable [phone] Encounter Details Date Type Department Care Team (Late st Contact Info) Description 02/12/2024 12:45 PM INSTRUCTOR TECHNICAL TRAINING Treatment [facility] Medical Office Building 2 Radiation Oncology [address] [place] [address] Social History Tobacco Use Types Packs/Day Years [...] on file Legal Sex Male 2:03 AM INSTRUCTOR TECHNICAL TRAINING Gender Identity Not on file Sexual Orientation Not on file Occupation Industry Job Start Date Job End Date Retired Not on file Not on file Not on file documented as of this encounter Plan of Treatment Not on file documented as of this encounter Visit Diagnoses Not on filedocumented in this encounter Care Teams Cellular Equipment Installer Relationship Specialty Start Date End Date Nikky Reyes MD [address] [facility] [address] [place] [address] PCP - General Family Practice 12/15/23 [place] [address] [place] [address] MEDICAL ONCOLOGY, [facility] 180 [place] [address] Medical Oncologist/Bioprocess Engineer Hematology and Oncology 12/15/23 Kwaku Martin MD [address] [place] [address] Consulting Physician Urology 12/15/23 [place] [address] [place] [address] 160 [place] [address] Radiation Oncologist Radiation Oncology 01/08/24 Adelso Quiñones [place] [address] [place] [address] Surgeon Urology 01/22/24 documented as of this encounter
--- OUTSIDE RECORDS SUMMARY | 2024-04-12 11:36 | XMS_ITS | Encounter Summary ---
Author Organization [facility] Healthcare Address [address] [place] [address] Care Team Providers Care Lathe Spotter Name Role Phone Nikky Reyes MD Primary Care Provider Venkat Vivar DO Unavailable [phone] Kwaku Martin MD Unavailable [phone] Richard Hargrove MD Unavailable [phone] Adelso Quiñones MD Unavailable [phone] Encounter Details Date Type Department Care Team (Late st Contact Info) Description 02/09/2024 Orders Only RAD ONC TREATMENTS Miscellaneous, [...] on file Legal Sex Male 2:03 AM LOOM BLOWER Gender Identity Not on file Sexual Orientation Not on file Occupation Industry Job Start Date Job End Date Retired Not on file Not on file Not on file documented as of this encounter Plan of Treatment Not on file documented as of this encounter Procedures Procedure Name Priority Date/Time Associated Diagnosis Comments RAD ONC ARIA SESSION SUMMARY 02/09/2024 1:16 PM LOOM BLOWER documented in this encounter Results * RAD ONC ARIA SESSION SUMMARY (02/09/2024 1:16 PM LOOM BLOWER) Course Name C1_BLADDER_ 2023 ARIA Course Plan Date 01/22/2024 3:44 PM ARIA Elapsed Days 7 ARIA Treatment Start Date 2024 ARIA Treatment Site BLADDER ARIA Dose Given To Date (cGy) 1,650 ARIA Session Dosage Given (cGy) 275 ARIA Plan ID BLADDER ARIA Fractions Treated 6 ARIA Prescribed Dose Per Fraction (cGy) 275 ARIA Prescribed Total Dose (cGy) 5,500 ARIA 02/09/2024 1:16 PM LOOM BLOWER us Not In File Miscellaneous RADIATION ONCOLOGY ORD ERABLES Final Result ARIA documented in this encounter Visit Diagnoses Not on filedocumented in this encounter Care Teams Lathe Spotter Relationship Specialty Start Date End Date Nikky Reyes MD [facility]7 [facility] 2 [place] [address] PCP - General Family Practice 12/15/23 [place] [address] [place] [address] MEDICAL ONCOLOGY, [facility] 180 [place], [place] [address] Medical Oncologist/Silk Spooler Hematology and Oncology 12/15/23 Kwaku Martin MD [address] [place] [address] Consulting Physician Urology 12/15/23 Richard Hargrove MD 1418 [facility] 160 [place], [place] [address] Radiation Oncologist Radiation Oncology 01/08/24 Adelso Quiñones [place] [address] [place] [address] Surgeon Urology 01/22/24 documented as of this encounter
--- OUTSIDE RECORDS SUMMARY | 2024-04-12 11:36 | XMS_ITS | Encounter Summary ---
Author Organization [facility] Healthcare Address [address] [place] [address] Care Team Providers Care Mortgage Assistant Name Role Phone Nikky Reyes MD Primary Care Provider Venkat Vivar DO Unavailable [phone] Kwaku Martin MD Unavailable [phone] Richard Hargrove MD Unavailable [phone] Adelso Quiñones MD Unavailable [phone] Encounter Details Date Type Department Care Team (Late st Contact Info) Description 02/03/2024 8:15 AM TRANSPORTATION REFRIGERATION TECHNICIAN Treatment [facility] Medical Office Building 2 Radiation Oncology [address] [place] [address] Social History Tobacco Use Types Packs/Day Years [...] on file Legal Sex Male 2:03 AM TRANSPORTATION REFRIGERATION TECHNICIAN Gender Identity Not on file Sexual Orientation Not on file Occupation Industry Job Start Date Job End Date Retired Not on file Not on file Not on file documented as of this encounter Plan of Treatment Not on file documented as of this encounter Visit Diagnoses Not on filedocumented in this encounter Care Teams Mortgage Assistant Relationship Specialty Start Date End Date Nikyk Reyes MD [address] [facility] [address] [place] [address] PCP - General Family Practice 12/15/23 [place] [address] [place] [address] MEDICAL ONCOLOGY, [facility] 180 [place] [address] Medical Oncologist/Meat Sales And Storage Manager Hematology and Oncology 12/15/23 Kwaku Martin MD [address] [place] [address] Consulting Physician Urology 12/15/23 [place] [address] [place] [address] 160 [place] [address] Radiation Oncologist Radiation Oncology 01/08/24 Adelso Quiñones [place] [address] [place] [address] Surgeon Urology 01/22/24 documented as of this encounter
--- OUTSIDE RECORDS SUMMARY | 2024-04-12 11:36 | XMS_ITS | Encounter Summary ---
Author Organization [facility] Healthcare Address [address] [place] [address] Care Team Providers Care Senior Care Specialist Name Role Phone Nikky Reyes MD Primary Care Provider Venkat Vivar DO Unavailable [phone] Kwaku Martin MD Unavailable [phone] Richard Hargrove MD Unavailable [phone] Adelso Quiñones MD Unavailable [phone] Reason for Visit * Reason Comments Chemotherapy * Episode Based Medications (Routine) - Closed Specialty Diagnoses / Procedures Referred By Leatha mejia Referred To Contact Diagnoses Encounter for person encountering health services Malignant neoplasm of urinary bladder, unspecified site (HCC) Venkat Vivar DO [facility] [address] Phone: tel: fax: [address] [address] Phone: tel: fax: Referral ID Status Reason Start Date Expiration Date Visits Re quested Visits Authorized [id number] Closed 01/05/2024 03/09/2024 1 70 Encounter Details Date Type Department Care Team ([facility] st Contact Info) Description 02/05/2024 2:00 PM AUTOMOBILE OR TRUCK RENTAL DISPATCHER Infusion [facility] at [address] [place] [address] Malignant neoplasm of urinary [...] on file Legal Sex Male 2:03 AM AUTOMOBILE OR TRUCK RENTAL DISPATCHER Gender Identity Not on file Sexual Orientation Not on file Occupation Industry Job Start Date Job End Date Retired Not on file Not on file Not on file documented as of this encounter Last Filed Vital Signs Vital Sign Reading Time Taken Comments Blood Pressure 108/67 02/05/2024 1:30 PM AUTOMOBILE OR TRUCK RENTAL DISPATCHER Pulse 67 02/05/2024 1:30 PM AUTOMOBILE OR TRUCK RENTAL DISPATCHER Temperature 36.4 ??C (97.5 ??F) 02/05/2024 1:30 PM CS T Respiratory Rate 16 02/05/2024 1:30 PM AUTOMOBILE OR TRUCK RENTAL DISPATCHER Oxygen Saturation 96% 02/05/2024 1:30 PM AUTOMOBILE OR TRUCK RENTAL DISPATCHER Inhaled Oxygen Concentration - - Weight 90 kg (198 lb 6.4 oz) 02/05/2024 1:30 PM AUTOMOBILE OR TRUCK RENTAL DISPATCHER with shoes Height - - Body Mass Index 26.58 2024 12:58 PM AUTOMOBILE OR TRUCK RENTAL DISPATCHER documented in this encounter Nursing Notes * Haley Gayle, ODILON - 02/05/2024 2:00 PM CST Oncology Nursing Note [facility] Venkat Aranda is a 74 y.o. male who presents for treatment cycle 1, day 4 of Gemzar. Pre-treatment Nursing Assessment Nursing Assessment LOC: Alert, Awake Fatigue: Occassional Any falls since your last visit?: No Orientation: Oriented x4 Behavior: Calm Speech: Clear Language: No aphasia Vision: At baseline Peripheral Neuropathy: No Oral Mucosa Grade: Normal (0) Pt states has potential to be ?: N/A Shortness of Breath?: Yes Respiratory Effort Characteristics: Dyspnea exertion Appetite: Good Nausea/Vomiting: Yes (sometimes nausea off and on) Diarrhea: No Constipation: No Skin Condition/Temp: Warm, Dry Swelling: No Additional Notes: Encounter Vitals BP: 108/67 (02/05/2024 1:30 PM) Pulse: 67 (02/05/2024 1:30 PM) Resp: 16 (02/05/2024 1:30 PM) Temp: 36.4 ??C (97.5 ??F) (02/05/2024 1:30 PM) Temp src: Oral (02/05/2024 1:30 PM) SpO2: 96 % (02/05/2024 1:30 PM) Weight: 90 kg (198 lb 6.4 oz) (with shoes) (02/05/2024 1:30 PM) Treatment Patient: met treatment parameters Pre blood return: Charlene Justinmins tolerated treatment well. Patient was frequently observed [...] Ambulatory Accompanied by: Self Discharged To: Home MOBILE OR TRUCK RENTAL DISPATCHER documented in this encounter Plan of Treatment Not on file documented as of this encounter Visit Diagnoses Diagnosis Malignant neoplasm of urinary bladder, unspecified site (HCC)- Primary Encounter for person encountering health services documented in this encounter Administered Medications Inactive Administered Medications - up to 3 most recent administrations Medication Order MAR Action Action Date Dose Rate Site gemcitabine (GEMZAR) 58 mg in sodium chloride 0.9% 50 mL IVPB 58 mg (rounded from 57.51 mg = 27 mg/m2 ? 2.13 m2 Treatment Plan BSA from Recorded weight), intravenous, at 117 mL/hr, Administer over 30 Minutes, Once, On Suzanne 02/05/24 at 1445, For 1 doseIndications:Encounter for person encountering health services,Malignant neoplasm of urinary bladder, unspecified site (HCC) New Bag 02/05/2024 2:04 PM AUTOMOBILE OR TRUCK RENTAL DISPATCHER 58 mg 117 mL/hr granisetron (KYTRIL) injection 1 mg 1 mg, intravenous, Once, On Suzanne 02/05/24 at 1415, For 1 dose, IV administration over 30 secondsIndications:Encounter for person encountering health services,Malignant neoplasm of urinary bladder, unspecified site (HCC) Given 02/05/2024 1:44 PM AUTOMOBILE OR TRUCK RENTAL DISPATCHER 1 mg documented in this encounter Orders Nursing Count Last Ordered Date First Orde red Date ONCBCN TREATMENT PARAMETERS 1 1 02/05/2024 Appointment Requests Count Last Ordered Date Fi rst Ordered Date ONCBCN RETURN CHEMO 1.5HRS 1 02/05/2024 documented in this encounter Care Teams Senior Care Specialist Relationship Specialty Start Date End Date Nikky Reyes MD [facility] 2 [place] [address] PCP - General Family Practice 12/15/23 Venkat Vivar DO 1418 [facility] MEDICAL ONCOLOGY, [facility] 180 [place] [address] Medical Oncologist/Insurance Investigator Hematology and Oncology 12/15/23 Kwaku Martin MD 1 [place] [address] Consulting Physician Urology 12/15/23 Richard Hargrove MD [facility]8 [facility] 160 [place] [address] Radiation Oncologist Radiation Oncology 01/08/24 [place]so Qu[place] [address] [facility] 375 [place] [address] Surgeon Urology 01/22/24 documented as of this encounter
--- OUTSIDE RECORDS SUMMARY | 2024-04-12 11:36 | XMS_ITS | Encounter Summary ---
Author Organization [facility] Healthcare Address [address] [place] [address] Care Team Providers Care Digital Content Producer Name Role Phone Nikky Reyes MD Primary Care Provider Venkat Vivar DO Unavailable [phone] Kwaku Martin MD Unavailable [phone] Richard Hargrove MD Unavailable [phone] Adelso Quiñones MD Unavailable [phone] Reason for Visit * Episode Based Medications (Routine) - Closed Specialty Diagnoses / Procedures Referred By Leatha t Referred To Contact Diagnoses Encounter for person encountering health services Malignant neoplasm of urinary bladder, unspecified site (HCC) Venkat Vivar, [address] [place] [address] Phone: tel: fax: [address] [address] Phone: tel: fax: Referral ID Status Reason Start Date Expiration Date Visits Re quested Visits Authorized [id number] Closed 01/05/2024 03/09/2024 1 70 Encounter Details Date Type Department Care Team ([facility] st Contact Info) Description 02/12/2024 1:15 PM OIL EXTRACTOR Lab [facility] at [address] [address] Encounter for person encountering health services; Malignant [...] on file Legal Sex Male 2:03 AM OIL EXTRACTOR Gender Identity Not on file Sexual Orientation Not on file Occupation Industry Job Start Date Job End Date Retired Not on file Not on file Not on file documented as of this encounter Plan of Treatment Not on file documented as of this encounter Procedures Procedure Name Priority Date/Time Associated Diagnosis Comments EGFR Routine 02/12/2024 1:17 PM OIL EXTRACTOR Encounter for person encountering health services Malignant neoplasm of urinary bladder, unspecified site (HCC) DIFFERENTIAL AUTO Routine 02/12/2024 1:1 7 PM OIL EXTRACTOR Encounter for person encountering health services Malignant neoplasm of urinary bladder, unspecified site (HCC) CBC WITH AUTO DIFFERENTIAL Routine 02/12/2024 1:17 PM OIL EXTRACTOR Encounter for person encountering health services Malignant neoplasm of urinary bladder, unspecified site (HCC) COMPREHENSIVE METABOLIC PANEL Routine 02/12/2024 1:17 PM OIL EXTRACTOR Encounter for person encountering health services Malignant neoplasm of urinary bladder, unspecified site (HCC) documented in this encounter Results * eGFR (02/12/2024 1:17 PM OIL EXTRACTOR) eGFR >90 >=60 mL/min/1. 73 m2 Comment: [...] was last reviewed 2021. Testing performed by: [address] [address] Blood 02/12/2024 1:17 PM OIL EXTRACTOR 02/12/2024 1:24 PM OIL EXTRACTOR us Venkat Vivar DO LAB BLOOD ORDERABLES Final R esult [facility] [address] [facility] [place] [address] * Differential, auto (02/12/2024 1:17 PM OIL EXTRACTOR) Neutrophil abs 3.9 1.5 - 6.5 K/cumm Comment:Testing performed by : [address] [address] Imm gran abs 0.0 0.0 - 0.1 K/cumm JAIME PINEDA Comment:Testing performed by : [address] [address] Lymphocyte abs 1.1 0.8 - 3.3 K/cumm JAIME Comment:Testing performed by : [address] [address] Monocyte abs 0.3 0.2 - 0.8 K/cumm [facility] Comment:Testing performed by : [address] [address] Eosinophil abs 0.2 0.0 - 0.5 K/cumm [facility] Comment:Testing performed by : [address] [address] Basophil abs 0.0 0.0 - 0.1 K/cumm [facility] Comment:Testing performed by : [address] [address] Neutrophil pct 69.9 % [facility] Comment: Interpretive Data Percent cell count reference ranges are not reported, since discordance with absolute values may lead to misinterpretation of CBC data. Current Interpretive Data was last revised on 2017. Testing performed by: [address] [address] Imm gran pct 0.7 % [facility] Comment: Interpretive Data Percent cell count reference ranges are not reported, since discordance with absolute values may lead to misinterpretation of CBC data. Current Interpretive Data was last revised on 2017. Testing performed by: [address] [address] Lymphocyte pct 20.5 % [facility] Comment: Interpretive Data Percent cell count reference ranges are not reported, since discordance with absolute values may lead to misinterpretation of CBC data. Current Interpretive Data was last revised on 2017. Testing performed by: [address] [address] Monocyte pct 5.8 % [facility] Comment: Interpretive Data Percent cell count reference ranges are not reported, since discordance with absolute values may lead to misinterpretation of CBC data. Current Interpretive Data was last revised on 2017. Testing performed by: [address] [address] Eosinophil pct 2.7 % [facility] Comment: Interpretive Data Percent cell count reference ranges are not reported, since discordance with absolute values may lead to misinterpretation of CBC data. Current Interpretive Data was last revised on 2017. Testing performed by: [address] [address] Basophil pct 0.4 % JAIME Comment: Interpretive Data Percent cell count reference ranges are not reported, since discordance with absolute values may lead to misinterpretation of CBC data. Current Interpretive Data was last revised on 2017. Testing performed by: [address] [address] Blood 02/12/2024 1:17 PM OIL EXTRACTOR 02/12/2024 1:24 PM OIL EXTRACTOR us Venkat Vivar DO LAB BLOOD ORDERABLES Final R esult JAIME [address] [facility] Department [place] [address] * Comprehensive metabolic panel (02/12/2024 1:17 PM OIL EXTRACTOR) Sodium 138 135 - 145 mmol/L Comment:Testing performed by : [address] [address] Potassium, pl 4.6 3.3 - 4.9 mmol/L JAIME Comment:Testing performed by : [address] [address] Chloride 103 97 - 110 mmol/L JAIME Comment:Testing performed by : [address] [address] CO2 28 22 - 32 mmol/L JAIME Comment:Testing performed by : [address] [address] Anion gap 7 2 - 15 mmol/L JAIME Comment:Testing performed by : [address] [address] BUN 17 6 - 25 mg/dL JAIME Comment:Testing performed by : [address] [address] Creatinine 0.80 0.80 - 1.30 mg/dL JAIME Comment:Testing performed by : [address] [address] Glucose 98 70 - 199 mg/dL JAIME [...] was last revised 2022. Testing performed by: [address] [address] Calcium 8.9 8.5 - 10.3 mg/dL JAIME Comment:Testing performed by : [address] [address] Bilirubin, total 0.5 0.1 - 1.2 mg/dL JAIME Comment:Testing performed by : [address] [address] Protein, pl 7.0 6.5 - 8.5 g/dL JAIME Comment:Testing performed by : [address] [address] Albumin 3.9 3.5 - 5.0 g/dL JAIME Comment:Testing performed by : [address] [address] Alk phos 69 40 - 130 Units/L JAIME Comment:Testing performed by : [address] [address] ALT 14 7 - 55 Units/L JAIME Comment:Testing performed by : [address] [address] AST 14 10 - 50 Units/L JAIME Comment:Testing performed by : [address] [address] Blood 02/12/2024 1:17 PM OIL EXTRACTOR 02/12/2024 1:24 PM OIL EXTRACTOR us Venkat Vivar DO LAB BLOOD ORDERABLES Final R esult JAIME [address] [facility] Department [place] [address] * (ABNORMAL) CBC with auto differential (02/12/2024 1:17 PM OIL EXTRACTOR) WBC 5.6 3.8 - 9.9 K/cumm Comment:Testing performed by : [address] [address] Hgb 11.8(L) 13.0 - 17.5 g/dL JAIME Comment:Testing performed by : [address] [address] Hct 34.3(L) 38.9 - 50.3 % JAIME Comment:Testing performed by : [address] [address] Plt 122(L) 150 - 400 K/cumm JAIME Comment:Testing performed by : [address] [address] MPV 8.9(L) 9.1 - 12.3 fL JAIME Comment:Testing performed by : [address] [address] RBC 3.60(L) 4.30 - 5.80 M/cumm JAIME Comment:Testing performed by : [address] [address] MCV 95.3 81.3 - 96.4 fL JAIME Comment:Testing performed by : [address] [address] MCH 32.8 27.1 - 33.3 pg JAIME Comment:Testing performed by : [address] [address] MCHC 34.4 32.3 - 35.7 g/dL JAIME Comment:Testing performed by : [address] [address] RDW CV 14.1 11.1 - 14.9 % JAIME Comment:Testing performed by : [address] [address] RDW SD 48.1 35.7 - 48.1 fL JAIME Comment:Testing performed by : [facility], [address] [place] [address]., [address] NRBC abs 0.00 0.00 - 0.01 K/cumm JAIME Comment:Testing performed by : [facility], [address] [place] [address]., [address] Blood 02/12/2024 1:17 PM OIL EXTRACTOR 02/12/2024 1:24 PM OIL EXTRACTOR Venkat Vivar DO LAB BLOOD ORDERABLES Final R esult [facility] [address] [facility] [place] [address] documented in this encounter Visit Diagnoses Diagnosis Encounter for person encountering health services Malignant neoplasm of urinary bladder, unspecified site (HCC) documented in this encounter Orders Appointment Requests Count Last Ordered Date Fi rst Ordered Date ONCBCN LAB APPOINTMENT 1 02/12/2024 documented in this encounter Care Teams Digital Content Producer Relationship Specialty Start Date End Date Nikky Reyes MD [address] [facility] 2 [place] [address] PCP - General Family Practice 12/15/23 Venkat Vivar DO [address] [place] [address] MEDICAL ONCOLOGY, [facility] [address] [place], [place] [id number] Medical Oncologist/Director Of Workforce Development Hematology and Oncology 12/15/23 Kwaku Martin MD [address] [place] [address] Consulting Physician Urology 12/15/23 Richard Hargrove MD [address] [place] [address] [address] [place], [place] [address] Radiation Oncologist Radiation Oncology 01/08/24 Adelso Quiñones [place] [address] [place] [address] Surgeon Urology 01/22/24 documented as of this encounter
--- OUTSIDE RECORDS SUMMARY | 2024-04-12 11:36 | XMS_ITS | Encounter Summary ---
Author Organization [facility] Healthcare Address [address] [place] [address] Care Team Providers Care Truck Cleaner Name Role Phone Nikky Reyes MD Primary Care Provider Venkat Vivar DO Unavailable [phone] Kwaku Martin MD Unavailable [phone] Richard Hargrove MD Unavailable [phone] Adelso Quiñones MD Unavailable [phone] Encounter Details Date Type Department Care Team (Late st Contact Info) Description 02/11/2024 8:30 AM PLASTICS HEAT WELDER Treatment [facility] Medical Office Building 2 Radiation Oncology [address] [place] [address] Social History Tobacco Use Types Packs/Day Years [...] on file Legal Sex Male 2:03 AM PLASTICS HEAT WELDER Gender Identity Not on file Sexual Orientation Not on file Occupation Industry Job Start Date Job End Date Retired Not on file Not on file Not on file documented as of this encounter Plan of Treatment Not on file documented as of this encounter Visit Diagnoses Not on filedocumented in this encounter Care Teams Truck Cleaner Relationship Specialty Start Date End Date Nikky Reyes MD [address] [facility] [address] [place] [address] [place] [address] PCP - General Family Practice 12/15/23 [place] [address] [place] [address] MEDICAL ONCOLOGY, [facility] [address] [place] [address] Medical Oncologist/Yard Supervisor Hematology and Oncology 12/15/23 Kwaku Martin MD [address] [place] [address] Consulting Physician Urology 12/15/23 [place] [address] [place] [address] [address] [place] [address] Radiation Oncologist Radiation Oncology 01/08/24 Adelso Quiñones [place] [address] [place] [address] Surgeon Urology 01/22/24 documented as of this encounter
--- OUTSIDE RECORDS SUMMARY | 2024-04-12 11:36 | XMS_ITS | Encounter Summary ---
Author Organization [facility] Healthcare Address [address] [place] [address] Care Team Providers Care Liquor Grinding Mill Operator Name Role Phone Nikky Reyes MD Primary Care Provider Venkat Vivar DO Unavailable [phone] Kwaku Martin MD Unavailable [phone] Richard Hargrove MD Unavailable [phone] Adelso Quiñones MD Unavailable [phone] Reason for Visit * Episode Based Medications (Routine) - Closed Specialty Diagnoses / Procedures Referred By Leatha t Referred To Contact Diagnoses Encounter for person encountering health services Malignant neoplasm of urinary bladder, unspecified site (HCC) Venkat Vivar, [address] [place] [address] Phone: tel: fax: [address] [address] Phone: tel: fax: Referral ID Status Reason Start Date Expiration Date Visits Re quested Visits Authorized [id number] Closed 01/05/2024 03/09/2024 1 70 Encounter Details Date Type Department Care Team ([facility] st Contact Info) Description 02/12/2024 2:15 PM CINDER PIT WORKER Infusion [facility] at [address] [address] Malignant neoplasm of urinary bladder, [...] on file Legal Sex Male 2:03 AM CINDER PIT WORKER Gender Identity Not on file Sexual Orientation Not on file Occupation Industry Job Start Date Job End Date Retired Not on file Not on file Not on file documented as of this encounter Last Filed Vital Signs Vital Sign Reading Time Taken Comments Blood Pressure 115/73 02/12/2024 1:52 PM CINDER PIT WORKER Pulse 66 02/12/2024 1:52 PM CINDER PIT WORKER Temperature 36.6 ??C (97.9 ??F) 02/12/2024 1:52 PM CS T Respiratory Rate 16 02/12/2024 1:52 PM CINDER PIT WORKER Oxygen Saturation 97% 02/12/2024 1:52 PM CINDER PIT WORKER Inhaled Oxygen Concentration - - Weight 90.3 kg (199 lb) 02/12/2024 1:52 PM CINDER PIT WORKER w ith shoes Height - - Body Mass Index 26.66 2024 12:58 PM CINDER PIT WORKER documented in this encounter Nursing Notes * Lee Ann Julio, ODILON - 02/12/2024 2:15 PM CST Oncology Nursing Note [facility] Venkat Aranda is a 74 y.o. male who presents for day 11 of gemcitabine. Pre-treatment Nursing Assessment Nursing Assessment LOC: Alert, Awake Constitutional: Fatigue Fatigue: Constant Any falls since your last visit?: No Orientation: Oriented x4 Behavior: Calm Speech: Clear Language: No aphasia Vision: At baseline Peripheral Neuropathy: Yes (left foot tingling) Oral Mucosa Grade: Normal (0) Pt states has potential to be ?: N/A Shortness of Breath?: No Appetite: Good Nausea/Vomiting: No Diarrhea: No Constipation: No Last BM Date: 02/12/24 Skin Condition/Temp: Dry, Warm Swelling: No Additional Notes: Encounter Vitals BP: 115/73 (02/12/2024 1:52 PM) Pulse: 66 (02/12/2024 1:52 PM) Resp: 16 (02/12/2024 1:52 PM) Temp: 36.6 ??C (97.9 ??F) (02/12/2024 1:52 PM) Temp src: Oral (02/12/2024 1:52 PM) SpO2: 97 % (02/12/2024 1:52 PM) Weight: 90.3 kg (199 lb) (with shoes) (02/12/2024 1:52 PM) Pain Score: 0 - No pain Treatment Patient: met treatment parameters Pre blood return: Charlene Flowers Manoj tolerated treatment well. Patient was frequently observed and monitored throughout the administration of their treatment. Additional Notes: Post blood return: Brisk IV access post infusion: NS Patient Education Treatment Education: Information/teaching given to patient including signs and symptoms of infection, bleeding, adverse reaction, and when to notify MD Response: Verbalizes understanding Discharge Plan Discharge instructions given to patient. Future appointments given and reviewed with treatment plan. Discharge Mode: Ambulatory Accompanied by: Self Discharged To: Home ER PIT WORKER documented in this encounter Plan of Treatment [...] Administer over 30 Minutes, Once, On Suzanne 02/12/24 at 1515, For 1 doseIndications:Encounter for person encountering health services,Malignant neoplasm of urinary bladder, unspecified site (HCC) New Bag 02/12/2024 2:31 PM CINDER PIT WORKER 57 mg 119 mL/hr granisetron (KYTRIL) injection 1 mg 1 mg, intravenous, Once, On Suzanne 02/12/24 at 1445, For 1 dose, IV administration over 30 secondsIndications:Encounter for person encountering health services,Malignant neoplasm of urinary bladder, unspecified site (HCC) Given 02/12/2024 2:21 PM CINDER PIT WORKER 1 mg documented in this encounter Orders Nursing Count Last Ordered Date First Orde red Date ONCBCN TREATMENT PARAMETERS 1 1 02/12/2024 Appointment Requests Count Last Ordered Date Fi rst Ordered Date ONCBCN RETURN CHEMO 1.5HRS 1 02/12/2024 documented in this encounter Care Teams Liquor Grinding Mill Operator Relationship Specialty Start Date End Date Nikky Reyes MD [address] [facility] [place] 2 [place] [address] PCP - General Family Practice 12/15/23 Venkat Vivar DO [address] [facility] MEDICAL ONCOLOGY, [facility] [address] [place] [address] Medical Oncologist/Yarn Skeins Examiner Hematology and Oncology 12/15/23 Kwaku Martin MD [address] [place] [address] Consulting Physician Urology 12/15/23 Richard Hargrove MD [address] [place] [address] [address] [place] [address] Radiation Oncologist Radiation Oncology 01/08/24 Adelso Quiñones [place] [address] [facility] [address] [place] [address] Surgeon Urology 01/22/24 documented as of this encounter
--- OUTSIDE RECORDS SUMMARY | 2024-04-12 11:36 | XMS_ITS | Encounter Summary ---
Author Organization [facility] Healthcare Address [address] [place] [address] Care Team Providers Care Director Energy Name Role Phone Nikky Reyes MD Primary Care Provider Venkat Vivar DO Unavailable [phone] Kwaku Martin MD Unavailable [phone] Richard Hargrove MD Unavailable [phone] Adelso Quiñones MD Unavailable [phone] Reason for Visit * Episode Based Medications (Routine) - Closed Specialty Diagnoses / Procedures Referred By Leatha t Referred To Contact Diagnoses Encounter for person encountering health services Malignant neoplasm of urinary bladder, unspecified site (HCC) Venkat Vivar, [address] [place] [address] Phone: tel: fax: [address] [address] Phone: tel: fax: Referral ID Status Reason Start Date Expiration Date Visits Re quested Visits Authorized [id number] Closed 01/05/2024 03/09/2024 1 70 Encounter Details Date Type Department Care Team ([facility] st Contact Info) Description 02/09/2024 1:15 PM SYSTEMS COORDINATOR Lab [facility] at [address] [address] Encounter for person encountering health services; Malignant [...] on file Legal Sex Male 2:03 AM SYSTEMS COORDINATOR Gender Identity Not on file Sexual Orientation Not on file Occupation Industry Job Start Date Job End Date Retired Not on file Not on file Not on file documented as of this encounter Plan of Treatment Not on file documented as of this encounter Procedures Procedure Name Priority Date/Time Associated Diagnosis Comments EGFR Routine 02/09/2024 1:26 PM SYSTEMS COORDINATOR Encounter for person encountering health services Malignant neoplasm of urinary bladder, unspecified site (HCC) DIFFERENTIAL AUTO Routine 02/09/2024 1:2 6 PM SYSTEMS COORDINATOR Encounter for person encountering health services Malignant neoplasm of urinary bladder, unspecified site (HCC) CBC WITH AUTO DIFFERENTIAL Routine 02/09/2024 1:26 PM SYSTEMS COORDINATOR Encounter for person encountering health services Malignant neoplasm of urinary bladder, unspecified site (HCC) COMPREHENSIVE METABOLIC PANEL Routine 02/09/2024 1:26 PM SYSTEMS COORDINATOR Encounter for person encountering health services Malignant neoplasm of urinary bladder, unspecified site (HCC) documented in this encounter Results * eGFR (02/09/2024 1:26 PM SYSTEMS COORDINATOR) eGFR >90 >=60 mL/min/1. 73 m2 Comment: [...] was last reviewed 2021. Testing performed by: [address] [address] Blood 02/09/2024 1:26 PM SYSTEMS COORDINATOR 02/09/2024 1:33 PM SYSTEMS COORDINATOR us Venkat Vivar DO LAB BLOOD ORDERABLES Final R esult [facility] [address] [facility] [place] [address] * Differential, auto (02/09/2024 1:26 PM SYSTEMS COORDINATOR) Neutrophil abs 3.2 1.5 - 6.5 K/cumm Comment:Testing performed by : [address] [address] Imm gran abs 0.0 0.0 - 0.1 K/cumm JAIME PINEDA Comment:Testing performed by : [address] [address] Lymphocyte abs 1.1 0.8 - 3.3 K/cumm JAIME Comment:Testing performed by : [address] [address] Monocyte abs 0.3 0.2 - 0.8 K/cumm [facility] Comment:Testing performed by : [address] [address] Eosinophil abs 0.1 0.0 - 0.5 K/cumm [facility] Comment:Testing performed by : [address] [address] Basophil abs 0.0 0.0 - 0.1 K/cumm [facility] Comment:Testing performed by : [address] [address] Neutrophil pct 65.9 % [facility] Comment: Interpretive Data Percent cell count reference ranges are not reported, since discordance with absolute values may lead to misinterpretation of CBC data. Current Interpretive Data was last revised on 2017. Testing performed by: [address] [address] Imm gran pct 0.6 % [facility] Comment: Interpretive Data Percent cell count reference ranges are not reported, since discordance with absolute values may lead to misinterpretation of CBC data. Current Interpretive Data was last revised on 2017. Testing performed by: [address] [address] Lymphocyte pct 23.4 % [facility] Comment: Interpretive Data Percent cell count reference ranges are not reported, since discordance with absolute values may lead to misinterpretation of CBC data. Current Interpretive Data was last revised on 2017. Testing performed by: [address] [address] Monocyte pct 7.0 % [facility] [place] Comment: Interpretive Data Percent cell count reference ranges are not reported, since discordance with absolute values may lead to misinterpretation of CBC data. Current Interpretive Data was last revised on 2017. Testing performed by: [address] [address] Eosinophil pct 2.7 % [facility] [place] Comment: Interpretive Data Percent cell count reference ranges are not reported, since discordance with absolute values may lead to misinterpretation of CBC data. Current Interpretive Data was last revised on 2017. Testing performed by: [address] [address] Basophil pct 0.4 % JAIME Comment: Interpretive Data Percent cell count reference ranges are not reported, since discordance with absolute values may lead to misinterpretation of CBC data. Current Interpretive Data was last revised on 2017. Testing performed by: [address] [address] Blood 02/09/2024 1:26 PM SYSTEMS COORDINATOR 02/09/2024 1:33 PM SYSTEMS COORDINATOR us Venkat Vivar DO LAB BLOOD ORDERABLES Final R esult JAIME [address] [facility] Department [place] [address] * Comprehensive metabolic panel (02/09/2024 1:26 PM SYSTEMS COORDINATOR) Sodium 139 135 - 145 mmol/L Comment:Testing performed by : [address] [address] Potassium, pl 3.8 3.3 - 4.9 mmol/L JAIME Comment:Testing performed by : [address] [address] Chloride 103 97 - 110 mmol/L JAIME Comment:Testing performed by : [address] [address] CO2 28 22 - 32 mmol/L JAIME Comment:Testing performed by : [address] [address] Anion gap 8 2 - 15 mmol/L JAIME Comment:Testing performed by : [address] [address] BUN 14 6 - 25 mg/dL JAIME Comment:Testing performed by : [address] [address] Creatinine 0.80 0.80 - 1.30 mg/dL JAIME Comment:Testing performed by : [address] [address] Glucose 102 70 - 199 mg/dL JAIME [...] was last revised 2022. Testing performed by: [address] [address] Calcium 8.9 8.5 - 10.3 mg/dL JAIME Comment:Testing performed by : [address] [address] Bilirubin, total 0.5 0.1 - 1.2 mg/dL JAIME Comment:Testing performed by : [address] [address] Protein, pl 7.2 6.5 - 8.5 g/dL JAIME Comment:Testing performed by : [address] [address] Albumin 4.1 3.5 - 5.0 g/dL JAIME Comment:Testing performed by : [address] [address] Alk phos 70 40 - 130 Units/L JAIME Comment:Testing performed by : [address] [address] ALT 15 7 - 55 Units/L JAIME Comment:Testing performed by : [address] [address] AST 16 10 - 50 Units/L JAIME Comment:Testing performed by : [address] [address] Blood 02/09/2024 1:26 PM SYSTEMS COORDINATOR 02/09/2024 1:33 PM SYSTEMS COORDINATOR us Venkat Vivar DO LAB BLOOD ORDERABLES Final R esult JAIME [address] [facility] [place] [address] * (ABNORMAL) CBC with auto differential (02/09/2024 1:26 PM SYSTEMS COORDINATOR) WBC 4.9 3.8 - 9.9 K/cumm Comment:Testing performed by : [address] [address] Hgb 12.0(L) 13.0 - 17.5 g/dL JAIME Comment:Testing performed by : [address] [address] Hct 34.5(L) 38.9 - 50.3 % JAIME Comment:Testing performed by : [address] [address] Plt 166 150 - 400 K/cumm JAIME Comment:Testing performed by : [address] [address] MPV 8.9(L) 9.1 - 12.3 fL JAIME Comment:Testing performed by : [address] [address] RBC 3.67(L) 4.30 - 5.80 M/cumm JAIME Comment:Testing performed by : [address] [address] MCV 94.0 81.3 - 96.4 fL JAIME Comment:Testing performed by : [address] [address] MCH 32.7 27.1 - 33.3 pg JAIME Comment:Testing performed by : [address] [address] MCHC 34.8 32.3 - 35.7 g/dL JAIME Comment:Testing performed by : [address] [address] RDW CV 13.9 11.1 - 14.9 % JAIME Comment:Testing performed by : [address] [address] RDW SD 47.8 35.7 - 48.1 fL JAIME Comment:Testing performed by : [facility], [address] [place] [address]., [address] NRBC abs 0.00 0.00 - 0.01 K/cumm JAIME Comment:Testing performed by : [facility], [address] [place] [address]., [address] Blood 02/09/2024 1:26 PM SYSTEMS COORDINATOR 02/09/2024 1:33 PM SYSTEMS COORDINATOR Venkat Vivar DO LAB BLOOD ORDERABLES Final R esult JAIME [address] [facility] [place] [address] documented in this encounter Visit Diagnoses Diagnosis Encounter for person encountering health services Malignant neoplasm of urinary bladder, unspecified site (HCC) documented in this encounter Orders Appointment Requests Count Last Ordered Date Fi rst Ordered Date ONCBCN LAB APPOINTMENT 1 02/09/2024 documented in this encounter Care Teams Director Energy Relationship Specialty Start Date End Date Nikky Reyes MD 34[address] [facility] 2 [place] [address] PCP - General Family Practice 12/15/23 Venkat Vivar DO [address] [place] [address] MEDICAL ONCOLOGY, [facility] [address] [place], [place] [address] Medical Oncologist/Iron Worker Hematology and Oncology 12/15/23 Kwaku Martin MD [address] [place] [address] Consulting Physician Urology 12/15/23 Richard Hargrove MD [address] [place] [address] [address] [place], [place] [address] Radiation Oncologist Radiation Oncology 01/08/24 Adelso Quiñones [place] [address] [place] [address] Surgeon Urology 01/22/24 documented as of this encounter
--- OUTSIDE RECORDS SUMMARY | 2024-04-12 11:36 | XMS_ITS | Encounter Summary ---
Author Organization [facility] Address [address] [place] [address] Phone Care Team Providers Care Junior Paralegal Name Role Phone Nikky Reyes MD Primary Care Provider Venkat Vivar DO Unavailable Kwaku Martin MD Unavailable [phone] Richard Hargrove MD Unavailable [phone] Adelso Quiñones MD Unavailable [phone] Encounter Details Date Type Department Care Team (Late st Contact Info) Description 2024 Orders Only [facility] Oncology [address] [facility] [address] [place] [address] Venkat Vivar DO 14[address] [facility] [place] [address] [place] [address] Social History Tobacco Use Types [...] on file Legal Sex Male 2:03 AM WRITER PRODUCER Gender Identity Not on file Sexual Orientation Not on file Occupation Industry Job Start Date Job End Date Retired Not on file Not on file Not on file documented as of this encounter Plan of Treatment Not on file documented as of this encounter Visit Diagnoses Not on filedocumented in this encounter Care Teams Junior Paralegal Relationship Specialty Start Date End Date Nikky Reyes MD [address] [facility] [address] [place] [address] PCP - General Family Practice 12/15/23 Venkat Vivar DO [address] [place] [address] [facility] 180 [place] [address] Medical Oncologist/Creative Engagement Director Hematology and Oncology 12/15/23 Kwaku Martin MD [address] [place] [address] Consulting Physician Urology 12/15/23 Richard Hargrove MD [address] [place] [address] 160 [place] [address] Radiation Oncologist Radiation Oncology 01/08/24 Adelso Quiñones [place] [address] [address] [place] [address] Surgeon Urology 01/22/24 documented as of this encounter
--- OUTSIDE RECORDS SUMMARY | 2024-04-12 11:36 | XMS_ITS | Encounter Summary ---
Author Organization [facility] Healthcare Address [address] [place] [address] Care Team Providers Care Composite Bond Technician Name Role Phone Nikky Reyes MD Primary Care Provider Venkat Vivar DO Unavailable [phone] Kwaku Martin MD Unavailable [phone] Richard Hargrove MD Unavailable [phone] Adelso Quiñones MD Unavailable [phone] Encounter Details Date Type Department Care Team (Late st Contact Info) Description 02/03/2024 Orders Only RAD ONC TREATMENTS Miscellaneous, [...] on file Legal Sex Male 2:03 AM LEGAL SECRETARY RECEPTIONIST Gender Identity Not on file Sexual Orientation Not on file Occupation Industry Job Start Date Job End Date Retired Not on file Not on file Not on file documented as of this encounter Plan of Treatment Not on file documented as of this encounter Procedures Procedure Name Priority Date/Time Associated Diagnosis Comments RAD ONC ARIA SESSION SUMMARY 02/03/2024 8:21 AM LEGAL SECRETARY RECEPTIONIST documented in this encounter Results * RAD ONC ARIA SESSION SUMMARY (02/03/2024 8:21 AM LEGAL SECRETARY RECEPTIONIST) Course Name [email or web address]_ 2023 ARIA Course Plan Date 01/22/2024 3:44 PM ARIA Elapsed Days 1 ARIA Treatment Start Date 2024 ARIA Treatment Site BLADDER ARIA Dose Given To Date (cGy) 550 ARIA Session Dosage Given (cGy) 275 ARIA Plan ID BLADDER ARIA Fractions Treated 2 ARIA Prescribed Dose Per Fraction (cGy) 275 ARIA Prescribed Total Dose (cGy) 5,500 ARIA 02/03/2024 8:21 AM LEGAL SECRETARY RECEPTIONIST us Not In File Miscellaneous RADIATION ONCOLOGY ORD ERABLES Final Result ARIA documented in this encounter Visit Diagnoses Not on filedocumented in this encounter Care Teams Composite Bond Technician Relationship Specialty Start Date End Date Nikky Reyes MD [facility] 2 [place] [address] PCP - General Family Practice 12/15/23 [place] [address] [place] [address] MEDICAL ONCOLOGY, [facility] 180 [place], [place] [id number] Medical Oncologist/Mechanical Applications Engineer Hematology and Oncology 12/15/23 Kwaku Martin MD [address] [place] [address] Consulting Physician Urology 12/15/23 Richard Hargrove MD 1418 [facility] 160 [place], [place] [address] Radiation Oncologist Radiation Oncology 01/08/24 Adelso Quiñones [place] [address] [place] [address] Surgeon Urology 01/22/24 documented as of this encounter
--- OUTSIDE RECORDS SUMMARY | 2024-04-12 11:36 | XMS_ITS | Encounter Summary ---
Author Organization [facility] Healthcare Address [address] [place] [address] Care Team Providers Care Manager Inventory Name Role Phone Nikky Reyes MD Primary Care Provider Venkat Vivar DO Unavailable [phone] Kwaku Martin MD Unavailable [phone] Richard Hargrove MD Unavailable [phone] Adelso Quiñones MD Unavailable [phone] Encounter Details Date Type Department Care Team (Late st Contact Info) Description 02/16/2024 11:30 AM PMO BUSINESS ANALYST Treatment [facility] Medical Office Building 2 Radiation Oncology [address] [place] [address] Social History Tobacco Use Types Packs/Day Years [...] on file Legal Sex Male 2:03 AM PMO BUSINESS ANALYST Gender Identity Not on file Sexual Orientation Not on file Occupation Industry Job Start Date Job End Date Retired Not on file Not on file Not on file documented as of this encounter Plan of Treatment Not on file documented as of this encounter Visit Diagnoses Not on filedocumented in this encounter Care Teams Manager Inventory Relationship Specialty Start Date End Date Nikky Reyes MD [address] [facility] [address] [place] [address] PCP - General Family Practice 12/15/23 [place] [address] [place] [address] MEDICAL ONCOLOGY, [facility] 180 [place] [address] Medical Oncologist/Direct Marketing Manager Hematology and Oncology 12/15/23 Kwaku Martin MD [address] [place] [address] Consulting Physician Urology 12/15/23 [place] [address] [place] [address] 160 [place] [address] Radiation Oncologist Radiation Oncology 01/08/24 Adelso Quiñones [place] [address] [place] [address] Surgeon Urology 01/22/24 documented as of this encounter
--- OUTSIDE RECORDS SUMMARY | 2024-04-12 11:36 | XMS_ITS | Encounter Summary ---
Author Organization [facility] Healthcare Address [address] [place] [address] Care Team Providers Care Calculus Teacher Name Role Phone Nikky Reyes MD Primary Care Provider Venkat Vivar DO Unavailable [phone] Kwaku Martin MD Unavailable [phone] Richard Hargrove MD Unavailable [phone] Adelso Quiñones MD Unavailable [phone] Reason for Visit * Reason Comments OTV Encounter Details Date Type Department Care Team ([facility] st Contact Info) Description 02/06/2024 OTV [facility] Medical Office Building 2 Radiation Oncology [address] [place] [address] Richard Hargrove MD [address] [place], [place] [address] Social History Tobacco Use Types Packs/Day Years [...] on file Legal Sex Male 2:03 AM IN PROCESSING INSTRUCTOR Gender Identity Not on file Sexual Orientation Not on file Occupation Industry Job Start Date Job End Date Retired Not on file Not on file Not on file documented as of this encounter Last Filed Vital Signs Vital Sign Reading Time Taken Comments Blood Pressure 101/67 02/06/2024 9:51 AM IN PROCESSING INSTRUCTOR Pulse 66 02/06/2024 9:51 AM IN PROCESSING INSTRUCTOR Temperature - - Respiratory Rate - - Oxygen Saturation 98% 02/06/2024 9:51 AM IN PROCESSING INSTRUCTOR Inhaled Oxygen Concentration - - Weight 90.7 kg (200 lb) 02/06/2024 9:51 AM IN PROCESSING INSTRUCTOR Height - - Body Mass Index 26.8 2024 12:58 PM IN PROCESSING INSTRUCTOR documented in this encounter Progress Notes * Richard Hargrove MD - 02/06/2024 9:51 AM CST PATIENT NAME: Venkat Aranda DATE OF : 1950 TREATING PHYSICIAN:Richard Hargrove MD DATE OF SERVICE: 02/06/2024 RADIATION ONCOLOGY ON TREATMENT VISIT NOTE DIAGNOSIS:: Cancer Staging Malignant neoplasm of urinary bladder (HCC) Staging form: Urinary Bladder, AJCC 8th Edition - Clinical stage from 12/05/2023: Stage II (cT2, cN0, cM0) - Signed by Chayo Card MD on 01/22/2024 TREATMENT: Radiation Treatments Active Plans BLADDER Most recent treatment: Dose planned: 275 cGy (fraction 5 on 02/06/2024) Total: Dose planned: 5,500 cGy Elapsed Days: 4 Reference Points BLADDER Most recent treatment: Dose given: 275 cGy (on 02/06/2024) Total: Dose given: 1,375 cGy Elapsed Days: 4 Radiation Treatments No historical radiation treatments to show. SUBJECTIVE: The patient states that he is doing well. Today he has no complaints. EXAM: BP 101/67 Pulse 66 Wt 90.7 kg (200 lb) SpO2 98% BMI 26.80 kg/m?? Pain Score and Location 02/06/24 0951 PainSc: 0-No pain No acute distress. No skin changes. Urinary tract effects: 0 - None Gastrointestinal effects: 0 - None Consitutional effects: 0 - None ASSESSMENT: No side effects PLAN: Continue with treatment RAD ONC PAIN PLAN: The patient is not currently having any pain that requires changes in pain management. PROCESSING INSTRUCTOR documented in this encounter Plan of Treatment Not on file documented as of this encounter Visit Diagnoses Not on filedocumented in this encounter Care Teams Calculus Teacher Relationship Specialty Start Date End Date Nikky Reyes MD 3417 [facility] 2 [place] [address] PCP - General Family Practice 12/15/23 Venkat Vivar DO 1418 [facility] MEDICAL ONCOLOGY, [facility] 180 [place] [address] Medical Oncologist/Certified Endoscopy Technician Hematology and Oncology 12/15/23 Kwaku Martin MD 1 [place] [address] Consulting Physician Urology 12/15/23 Richard Hargrove MD [address] [place] [address] [address] [place], [place] [id number] Radiation Oncologist Radiation Oncology 01/08/24 Adelso Quiñones [place] [address] [address] Surgeon Urology 01/22/24 documented as of this encounter
--- OUTSIDE RECORDS SUMMARY | 2024-04-12 11:36 | XMS_ITS | Encounter Summary ---
Author Organization [facility] Healthcare Address [address] [place] [address] Care Team Providers Care Main Line Station Engineer Name Role Phone Nikky Reyes MD Primary Care Provider Venkat Vivar DO Unavailable [phone] Kwaku Martin MD Unavailable [phone] Richard Hargrove MD Unavailable [phone] Adelso Quiñones MD Unavailable [phone] Encounter Details Date Type Department Care Team (Late st Contact Info) Description 02/13/2024 Orders Only RAD ONC TREATMENTS Miscellaneous, [...] on file Legal Sex Male 2:03 AM OYSTER GRADER Gender Identity Not on file Sexual Orientation Not on file Occupation Industry Job Start Date Job End Date Retired Not on file Not on file Not on file documented as of this encounter Plan of Treatment Not on file documented as of this encounter Procedures Procedure Name Priority Date/Time Associated Diagnosis Comments RAD ONC ARIA SESSION SUMMARY 02/13/2024 8:43 AM OYSTER GRADER documented in this encounter Results * RAD ONC ARIA SESSION SUMMARY (02/13/2024 8:43 AM OYSTER GRADER) Course Name C1_BLADDER_ 2023 ARIA Course Plan Date 01/22/2024 3:44 PM ARIA Elapsed Days 11 ARIA Treatment Start Date 2024 ARIA Treatment Site BLADDER ARIA Dose Given To Date (cGy) 2,750 ARIA Session Dosage Given (cGy) 275 ARIA Plan ID BLADDER ARIA Fractions Treated 10 ARIA Prescribed Dose Per Fraction (cGy) 275 ARIA Prescribed Total Dose (cGy) 5,500 ARIA 02/13/2024 8:43 AM OYSTER GRADER us Not In File Miscellaneous RADIATION ONCOLOGY ORD ERABLES Final Result ARIA documented in this encounter Visit Diagnoses Not on filedocumented in this encounter Care Teams Main Line Station Engineer Relationship Specialty Start Date End Date Nikky Reyes MD [facility] 2 [place] [address] PCP - General Family Practice 12/15/23 [place] [address] [place] [address] MEDICAL ONCOLOGY, [facility] 180 [place], [place] [id number] Medical Oncologist/Texture Artist Hematology and Oncology 12/15/23 Kwaku Martin MD [address] [place] [address] Consulting Physician Urology 12/15/23 Richard Hargrove MD 1418 [facility] 160 [place], [place] [address] Radiation Oncologist Radiation Oncology 01/08/24 Adelso Quiñones [place] [address] [place] [address] Surgeon Urology 01/22/24 documented as of this encounter
--- OUTSIDE RECORDS SUMMARY | 2024-04-12 11:36 | XMS_ITS | Encounter Summary ---
Author Organization [facility] Healthcare Address [address] [place] [address] Care Team Providers Care Fisher Crab Name Role Phone Nikky Reyes MD Primary Care Provider Venkat Vivar DO Unavailable [phone] Kwaku Martin MD Unavailable [phone] Richard Hargrove MD Unavailable [phone] Adelso Quiñones MD Unavailable [phone] Reason for Visit * Episode Based Medications (Routine) - Closed Specialty Diagnoses / Procedures Referred By Leatha t Referred To Contact Diagnoses Encounter for person encountering health services Malignant neoplasm of urinary bladder, unspecified site (HCC) Venkat Vivar, [address] [place] [address] Phone: tel: fax: [address] [address] Phone: tel: fax: Referral ID Status Reason Start Date Expiration Date Visits Re quested Visits Authorized [id number] Closed 01/05/2024 03/09/2024 1 70 Encounter Details Date Type Department Care Team ([facility] st Contact Info) Description 02/09/2024 2:30 PM MEETING COORDINATOR Infusion [facility] at [address] [address] Malignant neoplasm of urinary bladder, [...] on file Legal Sex Male 2:03 AM MEETING COORDINATOR Gender Identity Not on file Sexual Orientation Not on file Occupation Industry Job Start Date Job End Date Retired Not on file Not on file Not on file documented as of this encounter Last Filed Vital Signs Vital Sign Reading Time Taken Comments Blood Pressure 104/65 02/09/2024 1:45 PM MEETING COORDINATOR Pulse 72 02/09/2024 1:45 PM MEETING COORDINATOR Temperature 36.6 ??C (97.8 ??F) 02/09/2024 1 :45 PM MEETING COORDINATOR Respiratory Rate 16 02/09/2024 1:45 PM MEETING COORDINATOR Oxygen Saturation 97% 02/09/2024 1:4 5 PM MEETING COORDINATOR Inhaled Oxygen Concentration - - Weight 89.6 kg (197 lb 9.6 oz) 02/09/20 24 1:45 PM MEETING COORDINATOR with shoes Height - - Body Mass Index 26.47 2024 12:58 PM MEETING COORDINATOR documented in this encounter Nursing Notes * Lee Ann Julio, ODILON - 02/09/2024 2:30 PM CST Oncology Nursing Note [facility] Venkat Aranda is a 74 y.o. male who presents for treatment cycle , day 8 of gemcitabine. Pre-treatment Nursing Assessment Nursing Assessment LOC: Alert, Awake Constitutional: Fatigue Fatigue: Occassional Any falls since your last visit?: No Orientation: Oriented x4 Behavior: Calm Speech: Clear Language: No aphasia Vision: At baseline Peripheral Neuropathy: No Oral Mucosa Grade: Normal (0) Pt states has potential to be ?: N/A Shortness of Breath?: No Appetite: Good Nausea/Vomiting: Yes Diarrhea: No Constipation: No Last BM Date: 02/09/24 Skin Condition/Temp: Dry, Warm Swelling: No Additional Notes: Encounter Vitals BP: 104/65 (02/09/2024 1:45 PM) Pulse: 72 (02/09/2024 1:45 PM) Resp: 16 (02/09/2024 1:45 PM) Temp: 36.6 ??C (97.8 ??F) (02/09/2024 1:45 PM) Temp src: Oral (02/09/2024 1:45 PM) SpO2: 97 % (02/09/2024 1:45 PM) Weight: 89.6 kg (197 lb 9.6 oz) (with shoes) (02/09/2024 1:45 PM) Pain Score: 0 - No pain [...] Ambulatory Accompanied by: Self Discharged To: Home ING COORDINATOR documented in this encounter Plan of Treatment [...] mL/hr, Administer over 30 Minutes, Once, On 02/09/24 at 1500, For 1 doseIndications:Encounter for person encountering health services,Malignant neoplasm of urinary bladder, unspecified site (HCC) New Bag 02/09/2024 2:27 PM MEETING COORDINATOR 58 mg 117 mL/hr granisetron (KYTRIL) injection 1 mg 1 mg, intravenous, Once, On 02/09/24 at 1430, For 1 dose, IV administration over 30 secondsIndications:Encounter for person encountering health services,Malignant neoplasm of urinary bladder, unspecified site (HCC) Given 02/09/2024 2:03 PM MEETING COORDINATOR 1 mg documented in this encounter Orders Nursing Count Last Ordered Date First Orde red Date ONCBCN TREATMENT PARAMETERS 1 1 02/09/2024 Appointment Requests Count Last Ordered Date Fi rst Ordered Date ONCBCN RETURN CHEMO 1.5HRS 1 02/09/2024 documented in this encounter Care Teams Fisher Crab Relationship Specialty Start Date End Date Nikky Reyes MD [address] [facility] 2 [place] [address] PCP - General Family Practice 12/15/23 [place] [address] [place] [address] MEDICAL ONCOLOGY, [facility] [address] [place] [address] Medical Oncologist/Pulmonology Technician Hematology and Oncology 12/15/23 Kwaku Martin MD 1 [place] [address] Consulting Physician Urology 12/15/23 Richard Hargrove MD [address] [place] [address] [address] [place] [address] Radiation Oncologist Radiation Oncology 01/08/24 Adelso Quiñones [place] [address] [address] [facility] [address] [place] [address] Surgeon Urology 01/22/24 documented as of this encounter
--- OUTSIDE RECORDS SUMMARY | 2024-04-12 11:36 | XMS_ITS | Encounter Summary ---
Author Organization [facility] Address [address] [place] [address] Phone Care Team Providers Care Heat Treat Supervisor Name Role Phone Nikky Reyes MD Primary Care Provider Venkat Vivar DO Unavailable Kwaku Martin MD Unavailable [phone] Richard Hargrove MD Unavailable [phone] Adelso Quiñones MD Unavailable [phone] Reason for Visit * Reason Comments Follow-up Encounter Details Date Type Department Care Team ([facility] st Contact Info) Description 02/16/2024 8:00 AM GLASS INSTALLER Office Visit [facility] Oncology [address] [place] [phone] Venkat Vivar DO [address] [place] [address] [place] [address] Malignant neoplasm of urinary bladder, unspecified site [...] on file Legal Sex Male 2:03 AM GLASS INSTALLER Gender Identity Not on file Sexual Orientation Not on file Occupation Industry Job Start Date Job End Date Retired Not on file Not on file Not on file documented as of this encounter Last Filed Vital Signs Vital Sign Reading Time Taken Comments Blood Pressure 93/56 02/16/2024 8:00 AM GLASS INSTALLER RN notified was dizzy this morning Pulse 77 02/16/2024 8:00 AM GLASS INSTALLER Temperature 36.6 ??C (97.9 ??F) 02/16/2024 8 :00 AM GLASS INSTALLER Respiratory Rate 18 02/16/2024 8:00 AM GLASS INSTALLER Oxygen Saturation 97% 02/16/2024 8:0 0 AM GLASS INSTALLER Inhaled Oxygen Concentration - - Weight 88.9 kg (196 lb) 02/16/2024 8:00 AM GLASS INSTALLER no shoes Height - - Body Mass Index 26.26 2024 12:58 PM GLASS INSTALLER documented in this encounter Plan of Treatment Not on file documented as of this encounter Results * Comprehensive metabolic panel (03/01/2024 10:46 AM GLASS INSTALLER) Sodium 138 135 - 145 mmol/L Comment:Testing performed by : [address] [address] Potassium, pl 3.8 3.3 - 4.9 mmol/L JAIME Comment:Testing performed by : [address] [address] Chloride 102 97 - 110 mmol/L [facility]IME Comment:Testing performed by : [address] [address] CO2 26 22 - 32 mmol/L [facility] Comment:Testing performed by : [address] [address] Anion gap 10 2 - 15 mmol/L [facility] Comment:Testing performed by : [address] [address] BUN 17 6 - 25 mg/dL [facility] Comment:Testing performed by : [address] [place]., [address] Creatinine 0.80 0.80 - 1.30 mg/dL [facility] Comment:Testing performed by : [address] [address] Glucose 119 70 - 199 mg/dL [facility] Comment: Interpretive Data Fasting glucose >/= 126 [...] was last revised 2022. Testing performed by: [address] [address] Calcium 9.1 8.5 - 10.3 mg/dL [facility] Comment:Testing performed by : [address] [address] Bilirubin, total 0.7 0.1 - 1.2 mg/dL [facility] Comment:Testing performed by : [address] [address] Protein, pl 7.3 6.5 - 8.5 g/dL [facility] Comment:Testing performed by : [address] [address] Albumin 3.9 3.5 - 5.0 g/dL [facility] Comment:Testing performed by : [address] [address] Alk phos 76 40 - 130 Units/L [facility] Comment:Testing performed by : [address] [address] ALT 24 7 - 55 Units/L [facility] Comment:Testing performed by : [address] [address] AST 17 10 - 50 Units/L [facility] Comment:Testing performed by : [address] [address] Blood 03/01/2024 10:4 6 AM GLASS INSTALLER 03/01/2024 10:50 AM GLASS INSTALLER Venkat Vivar DO LAB BLOOD ORDERABLES Final R esult JAIME [address] [facility] Department [place] [address] * (ABNORMAL) CBC with auto differential (03/01/2024 10:46 AM GLASS INSTALLER) WBC 7.6 3.8 - 9.9 K/cumm Comment:Testing performed by : [address] [address] Hgb 10.8(L) 13.0 - 17.5 g/dL [facility] Comment:Testing performed by : [address] [address] Hct 31.6(L) 38.9 - 50.3 % [facility] Comment:Testing performed by : [address] [address] Plt 267 150 - 400 K/cumm [facility] Comment:Testing performed by : [address] [address] MPV 8.6(L) 9.1 - 12.3 fL [facility] Comment:Testing performed by : [address] [address] RBC 3.23(L) 4.30 - 5.80 M/cumm [facility] Comment:Testing performed by : [address] [address] MCV 97.8(H) 81.3 - 96.4 fL [facility] Comment:Testing performed by : [address] [address] MCH 33.4(H) 27.1 - 33.3 pg [facility] Comment:Testing performed by : [address] [address] MCHC 34.2 32.3 - 35.7 g/dL [facility] Comment:Testing performed by : [address] [address] RDW CV 16.7(H) 11.1 - 14.9 % [facility] Comment:Testing performed by : [address] [address] RDW SD 54.2(H) 35.7 - 48.1 fL [facility] Comment:Testing performed by : [address] [address] NRBC abs 0.00 0.00 - 0.01 K/cumm [facility] Comment:Testing performed by : [address] [address] Blood 03/01/2024 10:4 6 AM GLASS INSTALLER 03/01/2024 10:50 AM GLASS INSTALLER Venkat Vivar DO LAB BLOOD ORDERABLES Final R esult Performing Organization Address City/State/[facility] Co de Phone Number JAIME [address] [facility] Department of Laboratories [place], [place] [id number] * (ABNORMAL) CBC with auto differential (02/23/2024 11:02 AM GLASS INSTALLER) Pathologist [facility] WBC 4.9 3.8 - 9.9 K/cumm Comment:Testing performed by : [address] [address] Hgb 10.6(L) 13.0 - 17.5 g/dL [facility] Comment:Testing performed by : [address] [address] Hct 30.6(L) 38.9 - 50.3 % [facility] Comment:Testing performed by : [address] [address] Plt 146(L) 150 - 400 K/cumm [facility] Comment:Testing performed by : [address] [address] MPV 8.6(L) 9.1 - 12.3 fL [facility] Comment:Testing performed by : [address] [address] RBC 3.18(L) 4.30 - 5.80 M/cumm [facility] Comment:Testing performed by : [address] [address] MCV 96.2 81.3 - 96.4 fL [facility] Comment:Testing performed by : [address] [address] MCH 33.3 27.1 - 33.3 pg [facility] Comment:Testing performed by : [address] [address] MCHC 34.6 32.3 - 35.7 g/dL [facility] Comment:Testing performed by : [address] [address] RDW CV 15.0(H) 11.1 - 14.9 % [facility]IME Comment:Testing performed by : [address] [address] RDW SD 49.3(H) 35.7 - 48.1 fL [facility] Comment:Testing performed by : [address] [address] NRBC abs 0.00 0.00 - 0.01 K/cumm [facility] Comment:Testing performed by : [address] [address] Blood 02/23/2024 11:0 2 AM GLASS INSTALLER 02/23/2024 11:04 AM GLASS INSTALLER Venkat Vivar DO LAB BLOOD ORDERABLES Final R esult JAIME [address] [facility] Department of Laboratories [place], [place] [id number] * Comprehensive metabolic panel (02/23/2024 11:02 AM GLASS INSTALLER) Sodium 141 135 - 145 mmol/L Comment:Testing performed by : [address] [address] Potassium, pl 4.1 3.3 - 4.9 mmol/L [facility] Comment:Testing performed by : [address] [address] Chloride 104 97 - 110 mmol/L [facility] Comment:Testing performed by : [address] [address] CO2 27 22 - 32 mmol/L [facility] Comment:Testing performed by : [address] [address] Anion gap 10 2 - 15 mmol/L [facility] Comment:Testing performed by : [address], [place]., [address] BUN 17 6 - 25 mg/dL [facility] Comment:Testing performed by : [address], [place]., [address] Creatinine 0.90 0.80 - 1.30 mg/dL [facility] Comment:Testing performed by : [address] [address] Glucose 115 70 - 199 mg/dL JAIME [...] was last revised 2022. Testing performed by: [address] [address] Calcium 9.0 8.5 - 10.3 mg/dL [facility] Comment:Testing performed by : [address] [address] Bilirubin, total 0.5 0.1 - 1.2 mg/dL [facility] Comment:Testing performed by : [address] [address] Protein, pl 7.1 6.5 - 8.5 g/dL [facility] Comment:Testing performed by : [address] [address] Albumin 3.8 3.5 - 5.0 g/dL [facility] Comment:Testing performed by : [address] [address] Alk phos 75 40 - 130 Units/L [facility] Comment:Testing performed by : [address] [address] ALT 19 7 - 55 Units/L [facility] Comment:Testing performed by : [address] [address] AST 17 10 - 50 Units/L [facility] Comment:Testing performed by : [address] [address] Blood 02/23/2024 11:0 2 AM GLASS INSTALLER 02/23/2024 11:04 AM GLASS INSTALLER us Venkat Vivar DO LAB BLOOD ORDERABLES Final R esult JAIME [facility] Department [place] [address] * (ABNORMAL) CBC with auto differential (02/19/2024 11:23 AM GLASS INSTALLER) WBC 5.0 3.8 - 9.9 K/cumm Comment:Testing performed by : [address] [address] Hgb 10.8(L) 13.0 - 17.5 g/dL [facility] Comment:Testing performed by : [address] [address] Hct 31.2(L) 38.9 - 50.3 % [facility] Comment:Testing performed by : [address] [address] Plt 88(L) 150 - 400 K/cumm JAIME [facility] Comment:Testing performed by : [address] [address] MPV 9.0(L) 9.1 - 12.3 fL [facility] Comment:Testing performed by : [address] [address] RBC 3.25(L) 4.30 - 5.80 M/cumm JA[facility] Comment:Testing performed by : [facility], [address] [place] [address]., [address] MCV 96.0 81.3 - 96.4 fL JAIME [facility] Comment:Testing performed by : [address] [address] MCH 33.2 27.1 - 33.3 pg JAIME [facility] Comment:Testing performed by : [address] [address] MCHC 34.6 32.3 - 35.7 g/dL JAIME Comment:Testing performed by : [address] [address] RDW CV 14.6 11.1 - 14.9 % JAIME Comment:Testing performed by : [address] [address] RDW SD 49.1(H) 35.7 - 48.1 fL JAIME Comment:Testing performed by : [address] [address] NRBC abs 0.00 0.00 - 0.01 K/cumm JAIME Comment:Testing performed by : [address] [address] Blood 02/19/2024 11:2 3 AM GLASS INSTALLER 02/19/2024 11:26 AM GLASS INSTALLER Venkat Vivar DO LAB BLOOD ORDERABLES Final R esult JAIME [address] [facility] Department of Laboratories [place], [place] [id number] * Comprehensive metabolic panel (02/19/2024 11:23 AM GLASS INSTALLER) Sodium 141 135 - 145 mmol/L Comment:Testing performed by : [address] [address] Potassium, pl 3.9 3.3 - 4.9 mmol/L [facility] Comment:Testing performed by : [address], [address] Chloride 103 97 - 110 mmol/L [facility] Comment:Testing performed by : [address] [address] CO2 28 22 - 32 mmol/L [facility] Comment:Testing performed by : [address] [address] Anion gap 10 2 - 15 mmol/L [facility] Comment:Testing performed by : [address] [address] BUN 12 6 - 25 mg/dL [facility] Comment:Testing performed by : [address], [place]., [address] Creatinine 0.90 0.80 - 1.30 mg/dL [facility] Comment:Testing performed by : [address] [address] Glucose 148 70 - 199 mg/dL JAIME [...] was last revised 2022. Testing performed by: [address] [address] Calcium 8.8 8.5 - 10.3 mg/dL [facility] Comment:Testing performed by : [address] [address] Bilirubin, total 0.6 0.1 - 1.2 mg/dL [facility] Comment:Testing performed by : [address] [address] Protein, pl 6.9 6.5 - 8.5 g/dL [facility] Comment:Testing performed by : [address] [address] Albumin 3.9 3.5 - 5.0 g/dL [facility] Comment:Testing performed by : [address] [address] Alk phos 74 40 - 130 Units/L [facility] Comment:Testing performed by : [address] [address] ALT 15 7 - 55 Units/L [facility] Comment:Testing performed by : [address] [address] AST 15 10 - 50 Units/L [facility] Comment:Testing performed by : [address] [address] Blood 02/19/2024 11:2 3 AM GLASS INSTALLER 02/19/2024 11:26 AM GLASS INSTALLER Venkat Vivar DO LAB BLOOD ORDERABLES Final R esult JAIME [address] [facility] Department of Laboratories [place], [place] [id number] documented in this encounter Visit Diagnoses Diagnosis Malignant neoplasm of urinary bladder, unspecified site (HCC)- Primary Encounter for person encountering health services documented in this encounter Discontinued Medications Medication Sig Discontinue Reason Start Date End Da te metoprolol XL (TOPROL-XL) 50 mg extended release tablet Take 0.5 tablets (25 mg total) by mouth Alternate therapy 11/19/2023 02/16/2024 documented as of this encounter Historical Medications * This list may reflect changes made after this encounter. metoprolol XL (TOPROL-XL) 25 mg extended release tablet TAKE 1/2 OF A TABLET BY MOUTH EVERY DAY 01/14/2024 nitroglycerin (NITROSTAT) 0.4 mg SL tablet 1 tablet (0.4 mg total) as needed for chest pain 01/14/2024 added in this encounter Orders Appointment Requests Count Last Ordered Date Fi rst Ordered Date ONCBCN CLINIC APPOINTMENT REQUEST 2 024 02/16/2024 ONCBCN LAB APPOINTMENT 3 03/01/202402/18 ONCBCN RETURN CHEMO 1.5HRS 2 02/23/2024 1 04/20/2023 documented in this encounter Care Teams Heat Treat Supervisor Relationship Specialty Start Date End Date Nikky Reyes MD [address] [facility] [place] [address] [place], [place] [id number] PCP - General Family Practice 12/15/23 Venkat Vivar DO [address] [facility] MEDICAL ONCOLOGY, [facility] [address] [place] [address] Medical Oncologist/Mandrel Cleaner Hematology and Oncology 12/15/23 Kwaku Martin MD 1 [place] [address] Consulting Physician Urology 12/15/23 Rihcard Hargrove MD [address] [place] [address] [address] [place] [address] Radiation Oncologist Radiation Oncology 01/08/24 Adelso Quiñones [place] [address] [facility] [address] [place] [address] Surgeon Urology 01/22/24 documented as of this encounter
--- OUTSIDE RECORDS SUMMARY | 2024-04-12 11:36 | XMS_ITS | Encounter Summary ---
Author Organization [facility] Healthcare Address [address] [place] [address] Care Team Providers Care Pediatric Oncology Nurse Name Role Phone Nikky Reyes MD Primary Care Provider Venkat Vivar DO Unavailable [phone] Kwaku Martin MD Unavailable [phone] Richard Hargrove MD Unavailable [phone] Adelso Quiñones MD Unavailable [phone] Encounter Details Date Type Department Care Team (Late st Contact Info) Description 02/13/2024 8:30 AM ADVERTISING DISPATCH CLERKS SUPERVISOR Treatment [facility] Medical Office Building 2 Radiation Oncology [address] [place] [address] Social History Tobacco Use Types Packs/Day Years [...] file Legal Sex Male 2:03 AM ADVERTISING DISPATCH CLERKS SUPERVISOR Gender Identity Not on file Sexual Orientation Not on file Occupation Industry Job Start Date Job End Date Retired Not on file Not on file Not on file documented as of this encounter Plan of Treatment Not on file documented as of this encounter Visit Diagnoses Not on filedocumented in this encounter Care Teams Pediatric Oncology Nurse Relationship Specialty Start Date End Date Nikky Reyes MD [address] [facility] [address] [place] [address] [place] [address] PCP - General Family Practice 12/15/23 [place] [address] [place] [address] MEDICAL ONCOLOGY, [facility] [address] [place] [address] Medical Oncologist/Student Advisor Hematology and Oncology 12/15/23 Kwaku Martin MD [address] [place] [address] Consulting Physician Urology 12/15/23 [place] [address] [place] [address] [address] [place] [address] Radiation Oncologist Radiation Oncology 01/08/24 Adelso Quiñones [place] [address] [place] [address] Surgeon Urology 01/22/24 documented as of this encounter
--- OUTSIDE RECORDS SUMMARY | 2024-04-12 11:37 | XMS_ITS | Encounter Summary ---
Author Organization [facility] Healthcare Address [address] [place] [address] Care Team Providers Care Business Area Director Name Role Phone Nikky Reyes MD Primary Care Provider Venkat Vivar DO Unavailable [phone] Kwaku Martin MD Unavailable [phone] Richard Hargrove MD Unavailable [phone] Adelso Quiñones MD Unavailable [phone] Reason for Visit * Episode Based Medications (Routine) - Closed Specialty Diagnoses / Procedures Referred By Leatha t Referred To Contact Diagnoses Encounter for person encountering health services Malignant neoplasm of urinary bladder, unspecified site (HCC) Venkat Vivar, [address] [place] [id number] Phone: tel: fax: [address] [address] Phone: tel: fax: Referral ID Status Reason Start Date Expiration Date Visits Re quested Visits Authorized [id number] Closed 01/05/2024 03/09/2024 1 70 Encounter Details Date Type Department Care Team ([facility] st Contact Info) Description 2024 1:00 PM CHENILLE 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 Infusion [facility] at [address] [address] Malignant neoplasm of urinary bladder, [...] on file Legal Sex Male 2:03 AM 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 Gender Identity Not on file Sexual Orientation Not on file Occupation Industry Job Start Date Job End Date Retired Not on file Not on file Not on file documented as of this encounter Last Filed Vital Signs Vital Sign Reading Time Taken Comments Blood Pressure 103/68 2024 12:58 PM CHENILLE 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 Pulse 62 2024 12:58 PM CHENILLE 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 Temperature 36.6 ??C (97.9 ??F) 2024 12:[address] Respiratory Rate - - Oxygen Saturation 96% 2024 12:58 PM CHENILLE 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 Inhaled Oxygen Concentration - - Weight 88.9 kg (196 lb) 2024 12:58 PM CHENILLE 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 Height 184 cm (6' 0.44 ) 2024 12:58 PM CHENILLE 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 Body Mass Index 26.26 2024 12:58 PM CHENILLE 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 documented in this encounter Nursing Notes * Beulah Chavez, RN - 2024 1:00 PM CST Oncology Nursing Note [facility] Venkat Aranda is a 74 y.o. male who presents for Day 1 Induction of Gemcitabine. Pre-treatment Nursing Assessment Nursing Assessment LOC: Alert, Awake Constitutional: Fatigue Fatigue: Occassional Any falls since your last visit?: No Orientation: Oriented x4 Behavior: Calm Speech: Clear Language: No aphasia Vision: At baseline Peripheral Neuropathy: No Oral Mucosa Grade: Normal (0) Pt states has potential to be ?: N/A Shortness of Breath?: Yes Respiratory Effort Characteristics: Dyspnea exertion Appetite: Good What diet do you follow at home?: low sodium Nausea/Vomiting: No Diarrhea: No Constipation: No Skin Condition/Temp: Warm, Dry Swelling: No Encounter Vitals BP: 103/68 (2024 12:58 PM) Pulse: 62 (2024 12:58 PM) Temp: 36.6 ??C (97.9 ??F) (2024 12:58 PM) Temp src: Oral (2024 12:58 PM) SpO2: 96 % (2024 12:58 PM) Weight: 88.9 kg (196 lb) (2024 12:58 PM) Height: 184 cm (6' 0.44 ) (2024 12:58 PM) Pain Score: 0 - No pain Treatment Patient: met treatment parameters Pre blood return: Brisk Venkat Aranda tolerated treatment well. Patient was [...] Ambulatory Accompanied by: Self Discharged To: Home ILLE 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 * Beulah Chavez RN - 2024 1:00 PM CST Oncology Education Regimen: Gemcitabine Educated: Who educated?: Patient Barriers to learning: No barriers identified Welcome binder given: Yes Topics addressed: Alopecia, Appointments, Body fluid precautions, Constipation, Contact info/When to call, Diarrhea, Fatigue, Hypersensitivity Reaction, Infection, Low blood counts, Medication management, Monitoring and observation requirements, Mouth care, Nausea and Vomiting, Neuropathy, Oncologytreatment information, Pain management, Support services and resources, and Other Advised to call with any questions or concerns. Learning Methods: Explanation, Handout, Demonstration, and Video Response to Learning: Verbalized understanding Handouts given to patient. ILLE 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 documented in this encounter Plan of [...] mL/hr, Administer over 30 Minutes, Once, On Fri02/02/24 at 1445, For 1 doseIndications:Encounter for person encountering health services,Malignant neoplasm of urinary bladder, unspecified site (HCC) New Bag 2024 1:55 PM CHENILLE 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 58 mg 117 mL/hr granisetron (KYTRIL) injection 1 mg 1 mg, intravenous, Once, On Fri02/02/24 at 1415, For 1 dose, IV administration over 30 secondsIndications:Encounter for person encountering health services,Malignant neoplasm of urinary bladder, unspecified site (HCC) Given 2024 1:40 PM CHENILLE 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 1 mg documented in this encounter Orders Nursing Count Last Ordered Date First Orde red Date ONCBCN TREATMENT PARAMETERS 1 1 2024 Appointment Requests Count Last Ordered Date Fi rst Ordered Date ONCBCN RETURN CHEMO 1.5HRS 1 2024 documented in this encounter Care Teams Business Area Director Relationship Specialty Start Date End Date Nikky Reyes MD [address] [place] [address] PCP - General Family Practice 12/15/23 Venkat Vivar DO [address] [place] [address] MEDICAL ONCOLOGY, [address] [address] Medical Oncologist/Stage Rigger Hematology and Oncology 12/15/23 Kwaku Martin MD [address] [place] [address] Consulting Physician Urology 12/15/23 Richard Hargrove MD [address] [address] Radiation Oncologist Radiation Oncology 01/08/24 Adelso Qu[place] [address] [place] [address] Surgeon Urology 01/22/24 documented as of this encounter
--- OUTSIDE RECORDS SUMMARY | 2024-04-12 11:37 | XMS_ITS | Encounter Summary ---
Author Organization [facility] Address 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 Gender Identity Not on file Sexual Orientation Not on file documented as of this encounter Plan of Treatment Not on file documented as of this encounter Procedures Procedure Name Priority Date/Time Associated Diagnosis Comments CARDIOLOGY DOCUMENT SCAN Routine 05/17/2020 documented in this encounter Results * SCAN - CARDIOLOGY (05/17/2020) Anatomical Region Laterality Modality Other Marcelo Sen MD [facility] Final Result documented in this encounter Visit Diagnoses Not on filedocumented in this encounter Care Teams Microsoft Access Developer Relationship Specialty Start Date End Date No, Physician PCP - General 05/16/20 12/14/23 documented as of this encounter
--- OUTSIDE RECORDS SUMMARY | 2024-04-12 11:37 | XMS_ITS | Encounter Summary ---
Author Organization [facility] Address [address] [place] [address] Care Team Providers Care Regulatory Intern Name Role Phone No, Physician Primary Care Provider Encounter Details Date Type Department Care Team (Late st Contact Info) Description 05/17/2020 Orders Only [facility] Cardiology [address] [place] [address] Marcelo Sen MD [address] [phone] Social History Tobacco Use Types Packs/Day Years Used Date Smoking Tobacco: Never Assessed Sex and Gender Information Value Date Recorded Sex Assigned at Not on file 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
--- OUTSIDE RECORDS SUMMARY | 2024-04-12 11:37 | XMS_ITS | Encounter Summary ---
Author Organization [facility] Healthcare Address [address] [place] [address] Care Team Providers Care Asw/Asuw Tactical Air Controller Name Role Phone Nikky Reyes MD Primary Care Provider Venkat Vivar DO Unavailable [phone] Kwaku Martin MD Unavailable [phone] Richard Hargrove MD Unavailable [phone] Adelso Quiñones MD Unavailable [phone] Encounter Details Date Type Department Care Team (Late st Contact Info) Description 01/30/2024 7:55 PM CDT Treatment [facility] Medical Office Building 2 Radiation Oncology [address] [place] [address] Social History Tobacco Use Types Packs/Day Years [...] on file Legal Sex Male 2:03 AM REIMBURSEMENT REP Gender Identity Not on file Sexual Orientation Not on file Occupation Industry Job Start Date Job End Date Retired Not on file Not on file Not on file documented as of this encounter Plan of Treatment Not on file documented as of this encounter Visit Diagnoses Not on filedocumented in this encounter Care Teams Asw/Asuw Tactical Air Controller Relationship Specialty Start Date End Date Nikky Reyes MD [address] [place] [address] PCP - General Family Practice 12/15/23 [place] [address] [place] [address] MEDICAL ONCOLOGY, [facility] [address] [place] [address] Medical Oncologist/Medical Technologist Hematology Hematology and Oncology 12/15/23 Kwaku Martin MD [address] [place] [address] Consulting Physician Urology 12/15/23 Richard Hargrove MD [address] [place] [address] [address] [place] [address] Radiation Oncologist Radiation Oncology 01/08/24 Adelso Quiñones [place] [address] [place] [address] Surgeon Urology 01/22/24 documented as of this encounter
--- OUTSIDE RECORDS SUMMARY | 2024-04-12 11:37 | XMS_ITS | Encounter Summary ---
Author Organization [facility] Address [address] [place] [address] Phone Care Team Providers Care Bottom Painter Name Role Phone Nikky Reyes MD Primary Care Provider Venkat Vivar DO Unavailable [phone] Kwaku Martin MD Unavailable Encounter Details Date Type Department Care Team (Late st Contact Info) Description 01/05/2024 Orders Only [facility] Oncology [address] Advanced Medicine 7th [place] [address] [place] [address] Venkat Vivar, DO [address] [address] Social History Tobacco Use Types [...] on file Legal 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 Gender Identity Not on file Sexual Orientation Not on file documented as of this encounter Plan of Treatment Not on file documented as of this encounter Visit Diagnoses Not on filedocumented in this encounter Care Teams Bottom Painter Relationship Specialty Start Date End Date Nikky Reyes MD [address] [facility] [address] [place] [address] PCP - General Family Practice 12/15/23 Venkat Vivar DO [address] [place] [address] MEDICAL ONCOLOGY, [facility] [address] [place] [address] Medical Oncologist/Manager Cafe Hematology and Oncology 12/15/23 Kwaku Martin MD [address] [place] [address] Consulting Physician Urology 12/15/23 documented as of this encounter
--- OUTSIDE RECORDS SUMMARY | 2024-04-12 11:37 | XMS_ITS | Encounter Summary ---
Author Organization [facility] Address [address] [place] [address] Care Team Providers Care Fitness And Wellness Manager Name Role Phone No, Physician Primary Care Provider Encounter Details Date Type Department Care Team (Late st Contact Info) Description 05/17/2020 Orders Only [facility] Cardiology [address] [place] [address] Marcelo Sen MD [address] [phone] Social History Tobacco Use Types Packs/Day Years Used Date Smoking Tobacco: Never Assessed Sex and Gender Information Value Date Recorded Sex Assigned at Not on file 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
--- OUTSIDE RECORDS SUMMARY | 2024-04-12 11:37 | XMS_ITS | Encounter Summary ---
Author Organization [facility] Address [address] [place] [address] Phone Care Team Providers Care Management Department Chair Name Role Phone Nikky Reyes MD Primary Care Provider Mitchell Martinez DO Unavailable [phone] Kwaku Martin MD Unavailable [phone] Reason for Referral * Consultation (Routine) - Closed Specialty Diagnoses / Procedures Referred By Conthiral t Referred To Contact Radiation Oncology Diagnoses Malignant neoplasm of urinary bladder, unspecified site (HCC) Mitchell Martinez DO [facility] [place] [address] Phone: tel: fax: Richard Hargrove MD [address] [place] [address] Phone: tel: fax: Referral ID Status Reason Start Date Expiration Date V isits Requested Visits Authorized [id number] Closed Specialty Services Required 01/05/2024 02/05/2024 1 1 Question Answer Is this referral for Breast Health Multi-Disciplinary Clinic? No Does the patient have a diagnosis of a Head and Neck cancer? No Please select the performing region: [facility] [[id number]] Please select the performing department: [facility] 2 RAD ONC [[id number]] To provider: RICHARD HARGROVE [[id number]] # of visits: 1 Comments Refer for chemo/rads for Bladder cancer Reason for Visit * Reason Comments Consult * Consultation (Routine) - Closed Specialty Diagnoses / Procedures Referred By Contac t Referred To Contact Oncology Diagnoses Malignant neoplasm of urinary bladder, unspecified site (HCC) Referral, Self [facility] Oncology [address] [facility] 7th [place] [address] [place] [address] Phone: tel: fax: Referral ID Status Reason Start Date Expiration Date V isits Requested Visits Authorized [id number] Closed Specialty Services Required 12/15/2023 01/13/2025 1 1 Encounter Details Date Type Department Care Team (Late st Contact Info) Description 01/05/2024 3:30 PM CDT Office Visit [facility] Oncology [facility] [address] [id number] Mitchell Martinez DO [address] [facility] [address] [place] [id number] Malignant neoplasm of urinary bladder, unspecified site (HCC) (Primary Dx); Encounter for person encountering health services; Chronic diastolic congestive heart failure (CMS/HCC) (HCC); 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) (HCC) Social History Tobacco Use Types Packs/Day [...] on file Legal Sex 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 Gender Identity Not on file Sexual Orientation Not on file Occupation Industry Job Start Date Job End Date Retired Not on file Not on file Not on file documented as of this encounter Last Filed Vital Signs Vital Sign Reading Time Taken Comments Blood Pressure 100/65 01/05/2024 3:51 PM CDT Pulse 71 01/05/2024 3:51 PM CDT Temperature 36.7 ??C (98.1 ??F) 01/05/2024 3:51 PM CD T Respiratory Rate 18 01/05/2024 3:51 PM CDT Oxygen Saturation 98% 01/05/2024 3:51 PM CDT Inhaled Oxygen Concentration - - Weight 87.2 kg (192 lb 3.2 oz) 01/05/2024 3:51 P M CDT no shoes Height 152.5 cm (5' 0.05 ) 01/05/2024 3:51 PM CD T Body Mass Index 37.47 01/05/2024 3:51 PM CDT documented in this encounter Progress Notes * Mitchell Martinez, DO - 01/05/2024 3:30 PM CDT Patient ID: Mitchell Aranda is a 73 y.o. male. Primary Care Provider: Nikky Reyes MD Assessment/Plan Newly diagnosed muscle invasive bladder cancer 1. T2 N0 MX 2. 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 Due to his ischemic cardiomyopathy condition, he is not a surgical candidate for radical cystectomy. He would have high-risk complications from general anesthesia with regards to his left ventricular systolic function. 2. Therefore, I recommend definitive chemoradiation based on the NRG/RTOG 0712 randomized phase 2 trial. In that trial, patient was T2-T4 muscle invasive bladder cancer were randomly assigned to 5 FU, cisplatin and twice daily radiation versus twice week low-dose gemcitabine plus radiation. This was followed by adjuvant gemcitabine and cisplatin chemotherapy. Three year distant metastases freedom was 78% with the 5 FU cisplatin radiation arm compared to the84% benefit with the gemcitabine radiation arm followed by adjuvant chemotherapy. Post induction complete response rates for high between 78 and 88%. Treatment related toxicity were all noncardiac. There were fewer toxicities with the gemcitabine radiation arm. Therefore, recommend gemcitabine at 27 mg per m2 delivered twice a week during the radiation portion of the therapy. After that has been completed and the patient has recovered, then I would proceed with gemcitabine 1000 mg per m2 on days 1 and 8 and cisplatin 70 mg per m2 on day 8 every 21 days for 2-4 cycles. At that point I can substitute paclitaxel if I feel cisplatin is not going to be tolerated. 3. I would also like to proceed with a PET-CT scan to confirm that he has potentially curable cancer and it was still localized. This will be scheduled in the next week or so. 4. I would refer the patient to Radiation Oncology with Dr. Hargrove or Dr. Yu for the radiation portion of the above treatment. 5. I would tentatively set a date of January 25 to begin both modalities. He has been educated with the treatment side effects by my nurse and myself. 6. Patient is seeking another opinion through Medical Oncology this week at [facility]. I will wait for him to make final decisions about where he will receive his oncology care. 7. Tentatively, I would see him back in early January for toxicity assessment. 8. I would monitor for worsening neuropathy and provide him with nutritional based supplements to minimize and prevent worsening neuropathy. He had also undergo supportive measures including IV and oral antiemetics. None of the above therapies would adversely affect his left ventricular systolic function. I answered all his questions and the 's questions to their satisfaction. They voiced understanding. My total encounter time on 01/05/2024 was 50 minutes which was spent in the activities documented inthe note. This includes time spent prior to the visit and after the visit in direct care of the patient. This time does not include time spent in any separately reportable services. Patient Active Problem List Diagnosis Malignant neoplasm of urinary bladder (HCC) Encounter for person encountering health services Diagnoses and all orders for this visit: Malignant neoplasm of urinary bladder, unspecified site (HCC) (Primary) - Lab Draw Appt Request Arm Draw or Central Line Draw? Arm; Ordering location: IM Onc/Hem/BMT; Treatment location: [facility]; Future - Return Chemo Appt Request - 90 Min First treatment? Yes; Ordering location: IM Onc/Hem/BMT; Treatment location: [facility]; Future - Comprehensive metabolic panel; Future - CBC with auto differential; Future - Lab Draw Appt Request Arm Draw or Central Line Draw? Arm; Ordering location: IM Onc/Hem/BMT; Treatment location: [facility]; Future - Return Chemo Appt Request - 90 Min First treatment? No; Ordering location: IM Onc/Hem/BMT; Treatment location: [facility]; Future - Comprehensive metabolic panel; Future - CBC with auto differential; Future - Lab Draw Appt Request Arm Draw or Central Line Draw? Arm; Ordering location: [facility] IM [facility]c/Hem/BMT; Treatment location: [facility]; Future - Return Chemo Appt Request - 90 Min First treatment? No; Ordering location: IM Onc/Hem/BMT; Treatment location: [facility]; Future - Comprehensive metabolic panel; Future - CBC with auto differential; Future - Lab Draw Appt Request Arm Draw or Central Line Draw? Arm; Ordering location: IM Onc/Hem/BMT; Treatment location: [facility]; Future - Return Chemo Appt Request - 90 Min First treatment? No; Ordering location: IM Onc/Hem/BMT; Treatment location: [facility]; Future - Comprehensive metabolic panel; Future - CBC with auto differential; Future - Lab Draw Appt Request Arm Draw or Central Line Draw? Arm; Ordering location: IM Onc/Hem/BMT; Treatment location: [facility]; Future - Clinic Appointment Request Chemo follow up; MITCHELL MARTINEZ MD; Clinic Appointment Location: [facility] IM ONC [facility]; Future - Return Chemo Appt Request - 90 Min First treatment? No; Ordering location: IM Onc/Hem/BMT; Treatment location: [facility]; Future - Comprehensive metabolic panel; Future - CBC with auto differential; Future - Ambulatory referral to Radiation Oncology; Future Encounter for person encountering health services - Lab Draw Appt Request Arm Draw or Central Line Draw? Arm; Ordering location: IM Onc/Hem/BMT; Treatment location: [facility]; Future - Return Chemo Appt Request - 90 Min First treatment? Yes; Ordering location: IM Onc/Hem/BMT; Treatment location: [facility]; Future - Comprehensive metabolic panel; Future - CBC with auto differential; Future - Lab Draw Appt Request Arm Draw or Central Line Draw? Arm; Ordering location: IM Onc/Hem/BMT; Treatment location: [facility]; Future - Return Chemo Appt Request - 90 Min First treatment? No; Ordering location: [facility] IM Onc/Hem/BMT; Treatment location: [facility]; Future - Comprehensive metabolic panel; Future - CBC with auto differential; Future - Lab Draw Appt Request Arm Draw or Central Line Draw? Arm; Ordering location: IM Onc/Hem/BMT; Treatment location: [facility]; Future - Return Chemo Appt Request - 90 Min First treatment? No; Ordering location: IM Onc/Hem/BMT; Treatment location: [facility]; Future - Comprehensive metabolic panel; Future - CBC with auto differential; Future - Lab Draw Appt Request Arm Draw or Central Line Draw? Arm; Ordering location: IM Onc/Hem/BMT; Treatment location: [facility]; Future - Return Chemo Appt Request - 90 Min First treatment? No; Ordering location: IM Onc/Hem/BMT; Treatment location: [facility]; Future - Comprehensive metabolic panel; Future - CBC with auto differential; Future - Lab Draw Appt Request Arm Draw or Central Line Draw? Arm; Ordering location: IM Onc/Hem/BMT; Treatment location: [facility]; Future - Clinic Appointment Request Chemo follow up; MITCHELL MARTINEZ MD; Clinic Appointment Location: [facility] IM ONC [facility]; Future - Return Chemo Appt Request - 90 Min First treatment? No; Ordering location: IM Onc/Hem/BMT; Treatment location: [facility]; Future - Comprehensive metabolic panel; Future - CBC with auto differential; Future Other orders - Carrier Fluids for Secondary Infusion - 0.9% Sodium Chloride - sodium chloride 0.9% infusion - dextrose 5% infusion - sodium chloride 0.9% flush 10 mL - sodium chloride 0.9% flush 10 mL - heparin 100 unit/mL injection 500 Units - sodium chloride 0.9% flush 10 mL - heparin lock flush (porcine) 10 unit/mL injection 30 Units - heparin 100 unit/mL injection 500 Units Subjective History of Present Illness: Mr. Aranda, 73-year-old male with history of ischemic cardiomyopathy, coronary artery disease and BPH, presents to my office for 2nd opinion regarding his newly diagnosed muscle invasive bladder cancer. Patient presented to his urologist this past summer with gross hematuria. In October, he underwent office based cystoscopy which showed a malignant appearing tumor in the posterior right bladder. He has been having intermittent gross hematuria since spring of this year. He was treated with several rounds of antibiotics prior to the cystoscopy procedure but the antibiotics did not alleviate his symptoms. He also complains of other lower urinary tract symptoms such as urgency, frequency, dysuria and nocturia. He has chronic back pain. Does have some activity intolerance due to his underlying cardiomyopathy. Patient then was referred to Dr. Martin for urology oncology evaluation. On December 04, he performed a Transurethral resection of bladder tumor. This revealed a greater than 5 cm lobulated bladder tumor involving the right side of the bladder with blocking of the right ureteral orifice. There was also an erythematous sessile lesion measuring 1 cm on the left posterior wall. Dr. Martin performed resection both of these tumors. After that, he did place a ureteral stent of the right ureter. Surgical pathology report showed high-grade papillary carcinoma involving the right posterior bladder wall along with a benign left sessile lesion. Dr. Martin instilled intravesical gemcitabine chemotherapy at the conclusion of the case. Did have excellent hemostasis. Patient has been referred to Medical Oncology I believe at the [facility]. He is seeking a 2nd opinion with us. Does complain of chronic paresthesia with shooting pains intermittently ofthe plantar surfaces of both feet. He was ejection fraction earlier this year was about 40%. It hasimproved with oral based therapy by his bin operator up to 50% based on patient's information. Past Medical History: Diagnosis Date BPH (benign prostatic hyperplasia) Cardiomyopathy (HCC) Coronary artery disease Hyperlipidemia Hypothyroidism Past Surgical History: Procedure Laterality Date CARDIAC SURGERY CHOLECYSTECTOMY Family History Problem Relation Age of Onset Heart disease Mother Heart disease Father Heart disease Sister Heart disease Brother No Known Problems Maternal Grandmother No Known Problems Maternal Grandfather No Known Problems Paternal Grandmother No Known Problems Paternal Grandfather Family Status Relation Name Status Mother Father Sister Alive Brother MGM MGF PGM PGF No partnership data on file Social History Tobacco Use Smoking status: Never Smokeless tobacco: Never Substance and Sexual Activity Drug use: Not Currently Sexual activity: Not Currently Partners: Female Alcohol Use: Not At Risk (01/06/2024) AUDIT-C Frequency of Alcohol Consumption: Never Average Number of Drinks: Patient does not drink Frequency of Binge Drinking: Never No Known Allergies Current Outpatient Medications Medication Sig Dispense Refill ascorbic acid (VITAMIN C) 1,000 mg tablet Take 1 tablet (1,000 mg total) by mouth daily aspirin 81 mg enteric coated tablet Take 1 tablet (81 mg total) by mouth clopidogreL (PLAVIX) 75 mg tablet Take 1 tablet (75 mg total) by mouth daily furosemide (LASIX) 40 mg tablet Take 1 tablet (40 mg total) by mouth levothyroxine (Synthroid) 50 mcg tablet Take 1 tablet (50 mcg total) by mouth metoprolol XL (TOPROL-XL) 50 mg extended release tablet Take 0.5 tablets (25 mg total) by mouth rosuvastatin (CRESTOR) 20 mg tablet Take 1 tablet (20 mg total) by mouth daily sacubitriL-valsartan (ENTRESTO) 49-51 mg tablet Take by mouth tamsulosin (FLOMAX) 0.4 mg extended release capsule Take 1 capsule (0.4 mg total) by mouth daily No current facility-administered medications for this visit. I have reviewed: allergies, current medications, past family history, past medical history, past social history, past surgical history, and problem list HPI Review of Systems Constitutional: Positive for fatigue. Negative for appetite change and chills. HENT: Positive for tinnitus. Eyes: Negative. Respiratory: Positive for shortness of breath. Cardiovascular: Negative. Positive for shortness of breath and peripheral swelling. Gastrointestinal: Negative. Endocrine: Negative. Genitourinary: Positive for dysuria, frequency, hematuria, nocturia and sexual dysfunction. Musculoskeletal: Positive for back pain. Skin: Negative. Neurological: Positive for dizziness. Hematological: Bruises/bleeds easily. Psychiatric/Behavioral: Negative. Pain: Positive for: chronic pain. Objective Physical Exam: Vital Signs for this encounter: BSA: 1.92 meters squared BP 100/65 (BP Location: Left arm) Pulse 71 Temp 36.7 ??C (98.1 ??F) (Oral) Resp 18 Ht 152.5cm (5' 0.05 ) Wt 87.2 kg (192 lb 3.2 oz) Comment: no shoes SpO2 98% BMI 37.47 kg/m?? Physical Exam Vitals and nursing note [...] normal. Judgment: Judgment normal. Performance Status: ECOG 1 Results: No results found for: WBC , ADJUSTEDWBC , HGB , HCT , LABPLAT , LDH , CREATININE , AST , CA125 , CEA , AFPTM , CA199 , HCGTM documented in this encounter Nursing Notes * Sandra Malcolm RN - 01/05/2024 3:30 PM CDT [facility] Educated: Who educated?: Patient and Family Barriers to learning: No barriers identified Welcome binder given: Yes Topics addressed: Appointments, Body fluid precautions, Constipation, Contact info/When to call, Diarrhea, Fatigue, Hypersensitivity Reaction, Infection, Low blood counts, Medication management, Monitoring and observation requirements, Mouth care, Nausea and Vomiting, Oncology treatment information, and Support services and resources Learning Methods: Explanation and Handout Response to Learning: Verbalized understanding and Demonstrated understanding * Sandra Malcolm RN - 01/05/2024 3:30 PM CDT SUJIT ONC- [facility] Referral Patient: Mitchell Aranda : 1950 Patient aware of referral? Yes Contact: patient Phone number for contact: Cell Referral Type: Nutrition education for start of chemotherapy Patient needs referral to generator rebuilder: No Case of ensure provided: No documented in this encounter Plan of Treatment Scheduled Referrals Name Type Priority Associated Diagnoses Orde r Schedule Ambulatory referral to Radiation Oncology Outpatient Referral Routine Malignant neoplasm of urinary bladder, unspecified site (HCC) Expected: 01/12/2024 (Approximate), Expires: 01/04/2025 documented as of this encounter Results * (ABNORMAL) CBC with auto differential (02/16/2024 7:36 AM [employer] HE[employer] THERAPIST) WBC 5.6 3.8 - 9.9 K/cumm Comment:Testing performed by : [address] [address] Hgb 11.5(L) 13.0 - 17.5 g/dL JAIME Comment:Testing performed by : [address], [address] Hct 33.3(L) 38.9 - 50.3 % JAIME Comment:Testing performed by : [address] [address] Plt 97(L) 150 - 400 K/cumm JAIME Comment:Testing performed by : [address] [address] MPV 9.1 9.1 - 12.3 fL JAIME Comment:Testing performed by : [address] [address] RBC 3.48(L) 4.30 - 5.80 M/cumm JAIME Comment:Testing performed by : [address] [address] MCV 95.7 81.3 - 96.4 fL JAIME Comment:Testing performed by : [address] [address] MCH 33.0 27.1 - 33.3 pg JAIME Comment:Testing performed by : [address] [address] MCHC 34.5 32.3 - 35.7 g/dL JAIME Comment:Testing performed by : [address] [address] RDW CV 14.3 11.1 - 14.9 % JAIME Comment:Testing performed by : [address] [address] RDW SD 47.7 35.7 - 48.1 fL JAIME PINEDA Comment:Testing performed by : [address] [address] NRBC abs 0.00 0.00 - 0.01 K/cumm JAIME PINEDA Comment:Testing performed by : [address] [address] Blood 02/16/2024 7:36 AM [employer]AL HEALTH THERAPIST 02/16/2024 7:42 AM ORAL HEALTH THERAPIST us Mitchell Martinez DO LAB BLOOD ORDERABLES Final R esult JAIME PINEDA [facility] Department [place] [address] * Comprehensive metabolic panel (02/16/2024 7:36 AM ORAL HEALTH THERAPIST) Sodium 142 135 - 145 mmol/L Comment:Testing performed by : [address] [address] Potassium, pl 4.2 3.3 - 4.9 mmol/L JAIME PINEDA Comment:Testing performed by : [address] [address] Chloride 105 97 - 110 mmol/L JAIME Comment:Testing performed by : [address] [address] CO2 28 22 - 32 mmol/L JAIME Comment:Testing performed by : [address] [address] Anion gap 9 2 - 15 mmol/L JAIME Comment:Testing performed by : [address] [address] BUN 15 6 - 25 mg/dL JAIME Comment:Testing performed by : [address] [address] Creatinine 1.00 0.80 - 1.30 mg/dL JAIME PINEDA Comment:Testing performed by : [address], [address] Glucose 111 70 - 199 mg/dL JAIME PIENDA Comment: Interpretive Data Fasting glucose >/= 126 [...] was last revised 2022. Testing performed by: [address] [address] Calcium 8.9 8.5 - 10.3 mg/dL JAIME Comment:Testing performed by : [address] [address] Bilirubin, total 0.7 0.1 - 1.2 mg/dL JAIME Comment:Testing performed by : [address] [address] Protein, pl 7.2 6.5 - 8.5 g/dL JAIME Comment:Testing performed by : [address] [address] Albumin 3.9 3.5 - 5.0 g/dL JAIME Comment:Testing performed by : [address] [address] Alk phos 73 40 - 130 Units/L JAIME Comment:Testing performed by : [address] [address] ALT 16 7 - 55 Units/L JAIME Comment:Testing performed by : [address] [address] AST 16 10 - 50 Units/L [facility] PHOENIXYUSUF Comment:Testing performed by : [address] [address] Blood 02/16/2024 7:36 AM ORAL HEALTH THERAPIST 02/16/2024 7:42 AM ORAL HEALTH THERAPIST Mitchell Martinez DO LAB BLOOD ORDERABLES Final R esult JAIME [address] [facility] Department [place] [address] * (ABNORMAL) CBC with auto differential (02/12/2024 1:17 PM ORAL HEALTH THERAPIST) [facility] Signature WBC 5.6 3.8 - 9.9 K/cumm Comment:Testing performed by : [address] [address] Hgb 11.8(L) 13.0 - 17.5 g/dL JAIME Comment:Testing performed by : [address] [address] Hct 34.3(L) 38.9 - 50.3 % JAIME Comment:Testing performed by : [address] [address] Plt 122(L) 150 - 400 K/cumm JAIME Comment:Testing performed by : [address] [address] MPV 8.9(L) 9.1 - 12.3 fL JAIME Comment:Testing performed by : [address] [address] RBC 3.60(L) 4.30 - 5.80 M/cumm JAIME Comment:Testing performed by : [address] [address] MCV 95.3 81.3 - 96.4 fL JAIME Comment:Testing performed by : [address] [address] MCH 32.8 27.1 - 33.3 pg JAIME Comment:Testing performed by : [address] [address] MCHC 34.4 32.3 - 35.7 g/dL JAIME Comment:Testing performed by : [address] [address] RDW CV 14.1 11.1 - 14.9 % JAIME Comment:Testing performed by : [address] [address] RDW SD 48.1 35.7 - 48.1 fL JAIME PINEDA Comment:Testing performed by : [address] [address] NRBC abs 0.00 0.00 - 0.01 K/cumm JAIME PINEDA Comment:Testing performed by : [address] [address] Blood 02/12/2024 1:17 PM ORAL HEALTH THERAPIST 02/12/2024 1:24 PM ORAL HEALTH THERAPIST us Mitchell Martinez DO LAB BLOOD ORDERABLES Final R esult JAIME [address] [facility] Department of Laboratories [place], [place] [id number] * Comprehensive metabolic panel (02/12/2024 1:17 PM ORAL HEALTH THERAPIST) Sodium 138 135 - 145 mmol/L Comment:Testing performed by : [address] [address] Potassium, pl 4.6 3.3 - 4.9 mmol/L JAIME Comment:Testing performed by : [address] [address] Chloride 103 97 - 110 mmol/L JAIME Comment:Testing performed by : [address] [address] CO2 28 22 - 32 mmol/L JAIME Comment:Testing performed by : [address] [address] Anion gap 7 2 - 15 mmol/L JAIME Comment:Testing performed by : [address] [address] BUN 17 6 - 25 mg/dL JAIME Comment:Testing performed by : [address] [address] Creatinine 0.80 0.80 - 1.30 mg/dL JAIME Comment:Testing performed by : [address] [address] Glucose 98 70 - 199 mg/dL JAIME [...] was last revised 2022. Testing performed by: [address] [address] Calcium 8.9 8.5 - 10.3 mg/dL JAIME Comment:Testing performed by : [address] [address] Bilirubin, total 0.5 0.1 - 1.2 mg/dL JAIME Comment:Testing performed by : [address] [address] Protein, pl 7.0 6.5 - 8.5 g/dL JAIME Comment:Testing performed by : [address] [address] Albumin 3.9 3.5 - 5.0 g/dL JAIME Comment:Testing performed by : [address] [address] Alk phos 69 40 - 130 Units/L JAIME Comment:Testing performed by : [address] [address] ALT 14 7 - 55 Units/L JAIME Comment:Testing performed by : [address] [address] AST 14 10 - 50 Units/L JAIME Comment:Testing performed by : [address] [address] Blood 02/12/2024 1:17 PM ORAL HEALTH THERAPIST 02/12/2024 1:24 PM ORAL HEALTH THERAPIST us Mitchell Martinez DO LAB BLOOD ORDERABLES Final R esult JAIME [address] [place] [address] * (ABNORMAL) CBC with auto differential (02/09/2024 1:26 PM ORAL HEALTH THERAPIST) [facility] WBC 4.9 3.8 - 9.9 K/cumm Comment:Testing performed by : [address] [address] Hgb 12.0(L) 13.0 - 17.5 g/dL JAIME Comment:Testing performed by : [address] [address] Hct 34.5(L) 38.9 - 50.3 % JAIME Comment:Testing performed by : [address] [address] Plt 166 150 - 400 K/cumm JAIME Comment:Testing performed by : [address] [address] MPV 8.9(L) 9.1 - 12.3 fL JAIME Comment:Testing performed by : [address] [address] RBC 3.67(L) 4.30 - 5.80 M/cumm JAIME Comment:Testing performed by : [address] [address] MCV 94.0 81.3 - 96.4 fL JAIME Comment:Testing performed by : [address] [address] MCH 32.7 27.1 - 33.3 pg JAIME Comment:Testing performed by : [address] [address] MCHC 34.8 32.3 - 35.7 g/dL JAIME Comment:Testing performed by : [address] [address] RDW CV 13.9 11.1 - 14.9 % JAIME Comment:Testing performed by : [address] [address] RDW SD 47.8 35.7 - 48.1 fL JAIME Comment:Testing performed by : [address] [place]., [address] NRBC abs 0.00 0.00 - 0.01 K/cumm JAIME Comment:Testing performed by : [address] [address] Blood 02/09/2024 1:26 PM ORAL HEALTH THERAPIST 02/09/2024 1:33 PM ORAL HEALTH THERAPIST Mitchell Martinez DO LAB BLOOD ORDERABLES Final R esult JAIME [address] [facility] Department [place] [address] * Comprehensive metabolic panel (02/09/2024 1:26 PM ORAL HEALTH THERAPIST) Sodium 139 135 - 145 mmol/L Comment:Testing performed by : [address] [address] Potassium, pl 3.8 3.3 - 4.9 mmol/L JAIME Comment:Testing performed by : [address] [address] Chloride 103 97 - 110 mmol/L JAIME Comment:Testing performed by : [address] [address] CO2 28 22 - 32 mmol/L JAIME Comment:Testing performed by : [address] [address] Anion gap 8 2 - 15 mmol/L JAIME Comment:Testing performed by : [address] [address] BUN 14 6 - 25 mg/dL JAIME Comment:Testing performed by : [address] [address] Creatinine 0.80 0.80 - 1.30 mg/dL JAIME Comment:Testing performed by : [address] [address] Glucose 102 70 - 199 mg/dL JAIME [...] was last revised 2022. Testing performed by: [address] [address] Calcium 8.9 8.5 - 10.3 mg/dL JAIME Comment:Testing performed by : [address] [address] Bilirubin, total 0.5 0.1 - 1.2 mg/dL JAIME Comment:Testing performed by : [address] [address] Protein, pl 7.2 6.5 - 8.5 g/dL JAIME Comment:Testing performed by : [address] [address] Albumin 4.1 3.5 - 5.0 g/dL JAIME Comment:Testing performed by : [address] [address] Alk phos 70 40 - 130 Units/L JAIME Comment:Testing performed by : [address] [address] ALT 15 7 - 55 Units/L JAIME Comment:Testing performed by : [address] [address] AST 16 10 - 50 Units/L JAIME Comment:Testing performed by : [address] [address] Blood 02/09/2024 1:26 PM ORAL HEALTH THERAPIST 02/09/2024 1:33 PM ORAL HEALTH THERAPIST us Mitchell Martinez DO LAB BLOOD ORDERABLES Final R esult JAIME [address] [facility] Department of Laboratories [place], [place] [id number] * (ABNORMAL) CBC with auto differential (02/05/2024 1:18 PM ORAL HEALTH THERAPIST) [facility] WBC 6.0 3.8 - 9.9 K/cumm Comment:Testing performed by : [address] [address] Hgb 11.5(L) 13.0 - 17.5 g/dL JAIME Comment:Testing performed by : [address], [address] Hct 33.3(L) 38.9 - 50.3 % JAIME Comment:Testing performed by : [address], [address] Plt 173 150 - 400 K/cumm JAIME Comment:Testing performed by : [address], [address] MPV 8.9(L) 9.1 - 12.3 fL JAIME Comment:Testing performed by : [address], [address] RBC 3.52(L) 4.30 - 5.80 M/cumm JAIME Comment:Testing performed by : [address], [address] MCV 94.6 81.3 - 96.4 fL JAIME Comment:Testing performed by : [address], [address] MCH 32.7 27.1 - 33.3 pg JAIME Comment:Testing performed by : [address], [address] MCHC 34.5 32.3 - 35.7 g/dL JAIME Comment:Testing performed by : [address], [address] RDW CV 14.2 11.1 - 14.9 % JAIME Comment:Testing performed by : [address], [address] RDW SD 48.6(H) 35.7 - 48.1 fL JAIME Comment:Testing performed by : [address], [address] NRBC abs 0.00 0.00 - 0.01 K/cumm JAIME Comment:Testing performed by : [address] [address] Blood 02/05/2024 1:18 PM ORAL HEALTH THERAPIST 02/05/2024 1:19 PM ORAL HEALTH THERAPIST Mitchell Martinez DO LAB BLOOD ORDERABLES Final R esult JAIME [address] [facility] Department [place] [address] * Comprehensive metabolic panel (02/05/2024 1:18 PM ORAL HEALTH THERAPIST) Sodium 140 135 - 145 mmol/L Comment:Testing performed by : [address] [address] Potassium, pl 4.2 3.3 - 4.9 mmol/L JAIME Comment:Testing performed by : [address] [address] Chloride 105 97 - 110 mmol/L JAIME Comment:Testing performed by : [address] [address] CO2 27 22 - 32 mmol/L JAIME Comment:Testing performed by : [address] [address] Anion gap 8 2 - 15 mmol/L JAIME Comment:Testing performed by : [address] [address] BUN 15 6 - 25 mg/dL JAIME Comment:Testing performed by : [address] [address] Creatinine 0.80 0.80 - 1.30 mg/dL JAIME Comment:Testing performed by : [address] [address] Glucose 100 70 - 199 mg/dL JAIME [...] revised 2022. Testing performed by: [facility], [address] [place] [address]., [address] Calcium 8.8 8.5 - 10.3 mg/dL JAIME Comment:Testing performed by : [address] [address] Bilirubin, total 0.4 0.1 - 1.2 mg/dL JAIME Comment:Testing performed by : [address] [address] Protein, pl 6.8 6.5 - 8.5 g/dL JAIME Comment:Testing performed by : [address] [address] Albumin 3.9 3.5 - 5.0 g/dL JAIME Comment:Testing performed by : [address] [address] Alk phos 68 40 - 130 Units/L JAMIE Comment:Testing performed by : [address] [address] ALT 15 7 - 55 Units/L JAIME Comment:Testing performed by : [address] [address] AST 15 10 - 50 Units/L JAIME Comment:Testing performed by : [address] [address] Blood 02/05/2024 1:18 PM ORAL HEALTH THERAPIST 02/05/2024 1:19 PM ORAL HEALTH THERAPIST Mitchell Martinez DO LAB BLOOD ORDERABLES Final R esult JAIME PINEDA [address] [facility] Department [place] [address] documented in this encounter Visit Diagnoses Diagnosis Malignant neoplasm of urinary bladder, unspecified site (HCC)- Primary Encounter for person encountering health services Chronic diastolic congestive heart failure (CMS/HCC) (HCC) 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 clopidogreL (PLAVIX) 75 mg tablet Take 1 tablet (75 mg total) by mouth daily ascorbic acid (VITAMIN C) 1,000 mg tablet Take 1 tablet (1,000 mg total) by mouth daily aspirin 81 mg enteric coated tablet Take 1 tablet (81 mg total) by mouth 11/19/2023 furosemide (LASIX) 40 mg tablet Take 1 tablet (40 mg total) by mouth 11/19/2023 levothyroxine (Synthroid) 50 mcg tablet Take 1 tablet (50 mcg total) by mouth 11/19/2023 rosuvastatin (CRESTOR) 20 mg tablet Take 1 tablet (20 mg total) by mouth daily sacubitriL-valsar lozada (ENTRESTO) 49-51 mg tablet Take by mouth 11/19/2023 tamsulosin (FLOMAX) 0.4 mg extended release capsule Take 1 capsule (0.4 mg total) by mouth daily 12/05/2023 metoprolol XL (TOPROL-XL) 50 mg extended release tablet Take 0.5 tablets (25 mg total) by mouth 11/19/2023 02/16/2024 added in this encounter Orders Appointment Requests Count Last Ordered Date Fi rst Ordered Date ONCBCN CLINIC APPOINTMENT REQUEST 1 024 ONCBCN LAB APPOINTMENT 4 02/16/202402/04 ONCBCN RETURN CHEMO 1.5HRS 4 02/16/2024 1 04/06/2023 documented in this encounter Care Teams Management Department Chair Relationship Specialty Start Date End Date Nikky Reyes MD [address] [address] [address] [place] [address] PCP - General Family Practice 12/15/23 Mitchell Martinez DO [address] [place] [address] MEDICAL ONCOLOGY, [facility] [address] [place] [address] Medical Oncologist/Light Bulb Tester Hematology and Oncology 12/15/23 Kwaku Martin MD [address] [place] [address] Consulting Physician Urology 12/15/23 documented as of this encounter
--- OUTSIDE RECORDS SUMMARY | 2024-04-12 11:37 | XMS_ITS | Encounter Summary ---
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 Mcr/bc/bs In Network / Out of Network? In Network Yes/No Physician Additional Notes Do you have a primary care physician? Yes Have you been seen by a cancer physician? Yes Have you seen a radiation doctor? No Have you seen a surgeon for your cancer? Yes Are there any other specialists in your care? Yes Yes/No Date(s) Location(s) Biopsy performed? Yes Did you have a CT scan? Yes Did you have a PET scan? No Did you have a (MRI) scan? No Did you receive chemotherapy? No Did you receive radiation? No Since your cancer diagnosis, have you been in the hosptial or had surgery? Yes documented in this encounter Plan of Treatment Not on file documented as of this encounter Visit Diagnoses Not on filedocumented in this encounter Care Teams Lumber Checker Relationship Specialty Start Date End Date Nikky Reyes MD [address] [facility] 2 [place] [address] PCP - General Family Practice 12/15/23 Venkat Vivar DO [address] [place] [address] MEDICAL ONCOLOGY, [address] [address] Medical Oncologist/Manager Epic Hematology and Oncology 12/15/23 Kwaku Martin MD [address] [place] [address] Consulting Physician Urology 12/15/23 documented as of this encounter
--- OUTSIDE RECORDS SUMMARY | 2024-04-12 11:37 | XMS_ITS | Encounter Summary ---
Author Organization [facility] Address [address] [place] [address] Phone Care Team Providers Care Waxer Tender Name Role Phone Nikky Reyes MD Primary Care Provider Mitchell Vivar DO Unavailable Kwaku Martin MD Unavailable [phone] Richard Hargrove MD Unavailable [phone] Encounter Details Date Type Department Care Team (Late st Contact Info) Description 01/09/2024 Orders Only [facility] [address] [place] [address] Mitchell Vivar, DO [address] [facility] [address] [place] [address] Malignant neoplasm of urinary bladder, unspecified [...] on file 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 Gender Identity Not on file Sexual Orientation Not on file Occupation Industry Job Start Date Job End Date Retired Not on file Not on file Not on file documented as of this encounter Plan of Treatment Not on file documented as of this encounter Procedures Procedure Name Priority Date/Time Associated Diagnosis Comments SURGICAL PATHOLOGY Routine 01/09/2024 10 :04 AM CDT Malignant neoplasm of urinary bladder, unspecified site (HCC) documented in this encounter Results * Surgical pathology (01/09/2024 10:04 AM CDT) Tissue (Miscellaneous) 01/09/2024 10:04 AM CDT 01/09/2024 10:04 AM CDT Narrative [facility] - 01/23/2024 2:15 PM CDT EPIC results best viewed via link to PDF [facility] Pathology Consult Service [address], [place] [address] Note to Patients: This report may contain a detailed description of human tissue sent by a health care provider to the laboratory for pathologic evaluation. The content of this report is essential for diagnosis and may provide important critical findings. This information may be unfamiliar to patients to review without a medical professional present. It is advised that the patient review this report in the presence of a health care provider who can answer questions and explain the details. SURGICAL PATHOLOGY REPORT * Consult Report * [facility] is providing an additional review of previously collected tissue. FINAL Patient Name: ??MITCHELL RODRIGUEZ Address: ??[address] [place] [address], ?[place], [place] ??[address] Gender: ??M : ??1950 (Age: 73) Hospital #: ??[id number] Patient Type: ??[facility] Location: ??UNKNOWN Taken: ??01/09/2024 Received: ??01/09/2024 Accessioned: ??01/09/2024 Reported: ??01/23/2024 Physician(s): Dr. Mitchell Vivar, D.O. [facility] Department of Pathology [address] [place] [address] ??[id number] P: [phone] ext [phone] F: [phone] Diagnosis: Consult material received from [place], [place] ([id number]; 12/05/2023) A. ??Bladder, superficial tumor, resection ? - Neuroendocrine carcinoma (see comment) ? - Muscularis propria present and involved by carcinoma B. ??Bladder, deep tumor, resection ? - Neuroendocrine carcinoma (see comment) ? - Muscularis propria present and involved by carcinoma C. ??Bladder, left posterior wall sessile tumor, resection ? - High grade urothelial carcinoma, invasive into lamina propria ? - Muscularis propria absent jxs/01/11/2024 16:53 By this signature, I attest that the above diagnosis is based upon my personal examination of the slides(and/or other material indicated in the diagnosis). Steve Subramanian DO Report Electronically Reviewed and Signed Out By Steve Subramanian DO 01/23/2024 14:15:35 Diagnosis Comment The tumor in parts A and B show a combination of neuroendocrine morphologies, with both small cell and large cell components. A conventional urothelial carcinoma component is not identified, nor is urothelial carcinoma in-situ. Mitotic figures are numerous. Necrosis and apoptotic cells are extensive. The tumor shows predominantly solid to organoid growth patterns with scattered areas of papillary formation. 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 The large cell neuroendocrine component is characterized by cells with moderate to abundant cytoplasm, some of which show small but distinct nucleoli. The proportion of small cell to large cell is difficult to accurately determine as neuroendocrine carcinomas tend to show a continuum of morphologies with considerable overlap. Most of the tumor appears to have features compatible with large cell morphology, roughly two-thirds, with one-third showing features compatible with small cell morphology. Immunostains were performed on received unstained slides from block A3 (controls appropriate). These show diffuse positivity for CAM5.2, synaptophysin, and chromogranin. GATA3 is limited to the overlying urothelium and is negative in the tumor. This immunoprofile supports the diagnosis. Sections from the tumor in part C show a conventional urothelial carcinoma seen as variably sized nests of round cells with eosinophilic cytoplasm invading into the lamina propria. A neuroendocrine component is not identified, however the extent of cautery artifact in some fragments limits full characterization. ?? This case was show in the subspecialty consensus conference with agreement on the final diagnosis. Dr. Mitchell Vivar was provided a report via [employer] on 01/23/24 at 2 pm. Microscopic Description and Comment: Unless gross-only is specified, the final diagnosis for each specimen is based on a microscopic examination of each tissue sample. Richard Mendez M.D. History: The patient is a 73-year-old man with bladder tumors. Materials Received: Received for review are ten slides labeled [id number], accompanied by a corresponding pathology report. The material originates from [place], [place]. Additionally received ten unstained slides labeled [id number] (A3) for additional materials on 01/21/2024. The material originates from [place], [place]. Selected slide(s) may be digitally scanned for our files, and all materials are returned to the referring institution, along with a copy of our final report. Any testing required for diagnostic purposes was performed in the Department of Pathology and Immunology at [facility], [address] [place] [address] CLIA # [id number] The performance characteristics of the testing cited in this report (if any) were determined by the ??[facility] Department of Pathology and Immunology [facility], as part of an ongoing software quality assurance engineer program and in compliance with federally mandated regulations drawn from the Clinical Laboratory Improvement Act of 1988 (CLIA '88). ??Some of these tests rely on the use of analyte specific reagents (ASR) and are subject to specific labeling requirements by the US Food and Drug Administration. ??Such diagnostic tests may only be performed in a facility that is certified by the Department of Health and Human Services as a high complexity laboratory under CLIA '88. ??The FDA has determined that such clearance or approval is not necessary. ??ASRs should not be regarded as investigational or for research. ??ASRs were developed and the performance characteristics determined by the [facility], [facility] Department of Pathology and Immunology. ??It has not been cleared or approved by the U.S. Food and Drug Administration. ??Any test designated as LDT was developed and its performance characteristics determined by [facility]. It has not been cleared or approved by the FDA. This test is used for clinical purposes and should not be regarded as investigational or for research. Report images and/or scanned reports, if included, only viewable in PDF version of report. Mitchell Vivar DO LAB PATHOLOGY ORDERABLES Fin al Result [facility] [address] [place] [address] documented in this encounter Visit Diagnoses Diagnosis Malignant neoplasm of urinary bladder, unspecified site (HCC) documented in this encounter Care Teams Waxer Tender Relationship Specialty Start Date End Date Nikky Reyes MD [address] [facility] [place] [address] [place], [place] [id number] PCP - General Family Practice 12/15/23 Mitchell Vivar DO [address] [facility] MEDICAL ONCOLOGY, [facility] [address] [place], [place] [id number] Medical Oncologist/Product Safety Consultant Hematology and Oncology 12/15/23 Kwaku Martin MD 1 [place] [address] Consulting Physician Urology 12/15/23 Richard Hargrove MD [address] [facility] [address] [place] [address] Radiation Oncologist Radiation Oncology 01/08/24 documented as of this encounter
--- OUTSIDE RECORDS SUMMARY | 2024-04-12 11:37 | XMS_ITS | Encounter Summary ---
Author Organization [facility] Healthcare Address [address] [place] [address] Care Team Providers Care Leaf Conditioner Name Role Phone Nikky Reyes MD Primary Care Provider Venkat Vivar DO Unavailable [phone] Kwaku Martin MD Unavailable [phone] Richard Hargrove MD Unavailable [phone] Adelso Quiñones MD Unavailable [phone] Reason for Visit * Episode Based Medications (Routine) - Closed Specialty Diagnoses / Procedures Referred By Leatha t Referred To Contact Diagnoses Encounter for person encountering health services Malignant neoplasm of urinary bladder, unspecified site (HCC) Venkat Vivar, [address] [place] [address] Phone: tel: fax: [address] [address] Phone: tel: fax: Referral ID Status Reason Start Date Expiration Date Visits Re quested Visits Authorized [id number] Closed 01/05/2024 03/09/2024 1 70 Encounter Details Date Type Department Care Team ([facility] st Contact Info) Description 2024 12:15 PM AUTO CUSTOMIZE PAINTER Lab 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 Gender Identity Not on file Sexual Orientation Not on file Occupation Industry Job Start Date Job End Date Retired Not on file Not on file Not on file documented as of this encounter Plan of Treatment Not on file documented as of this encounter Procedures Procedure Name Priority Date/Time Associated Diagnosis Comments EGFR Routine 2024 12:47 PM AUTO CUSTOMIZE PAINTER Encounter for person encountering health services Malignant neoplasm of urinary bladder, unspecified site (HCC) DIFFERENTIAL AUTO Routine 2024 12: 47 PM AUTO CUSTOMIZE PAINTER Encounter for person encountering health services Malignant neoplasm of urinary bladder, unspecified site (HCC) CBC WITH AUTO DIFFERENTIAL Routine 2024 12:47 PM AUTO CUSTOMIZE PAINTER Encounter for person encountering health services Malignant neoplasm of urinary bladder, unspecified site (HCC) COMPREHENSIVE METABOLIC PANEL Routine 2024 12:47 PM AUTO CUSTOMIZE PAINTER Encounter for person encountering health services Malignant neoplasm of urinary bladder, unspecified site (HCC) documented in this encounter Results * eGFR (2024 12:47 PM AUTO CUSTOMIZE PAINTER) eGFR >90 >=60 mL/min/1. 73 m2 Comment: [...] last reviewed 2021. Testing performed by: [address] [address] Blood 2024 12:4 7 PM AUTO CUSTOMIZE PAINTER 2024 12:49 PM AUTO CUSTOMIZE PAINTER us Venkat Vivar DO LAB BLOOD ORDERABLES Final R esult [facility] [address] [facility] Department [place] [address] * Differential, auto (2024 12:47 PM AUTO CUSTOMIZE PAINTER) Neutrophil abs 4.2 1.5 - 6.5 K/cumm Comment:Testing performed by : [address] [address] Imm gran abs 0.0 0.0 - 0.1 K/cumm JAIME PINEDA Comment:Testing performed by : [address] [address] Lymphocyte abs 1.5 0.8 - 3.3 K/cumm JAIME Comment:Testing performed by : [address] [address] Monocyte abs 0.8 0.2 - 0.8 K/cumm [facility] Comment:Testing performed by : [address] [address] Eosinophil abs 0.2 0.0 - 0.5 K/cumm [facility] Comment:Testing performed by : [address] [address] Basophil abs 0.0 0.0 - 0.1 K/cumm [facility] Comment:Testing performed by : [address] [address] Neutrophil pct 61.5 % [facility] Comment: Interpretive Data Percent cell count reference ranges are not reported, since discordance with absolute values may lead to misinterpretation of CBC data. Current Interpretive Data was last revised on 2017. Testing performed by: [address] [address] Imm gran pct 0.4 % [facility] Comment: Interpretive Data Percent cell count reference ranges are not reported, since discordance with absolute values may lead to misinterpretation of CBC data. Current Interpretive Data was last revised on 2017. Testing performed by: [address] [address] Lymphocyte pct 22.4 % [facility] Comment: Interpretive Data Percent cell count reference ranges are not reported, since discordance with absolute values may lead to misinterpretation of CBC data. Current Interpretive Data was last revised on 2017. Testing performed by: [address] [address] Monocyte pct 11.9 % [facility] Comment: Interpretive Data Percent cell count reference ranges are not reported, since discordance with absolute values may lead to misinterpretation of CBC data. Current Interpretive Data was last revised on 2017. Testing performed by: [address] [address] Eosinophil pct 3.2 % [facility] Comment: Interpretive Data Percent cell count reference ranges are not reported, since discordance with absolute values may lead to misinterpretation of CBC data. Current Interpretive Data was last revised on 2017. Testing performed by: [address] [address] Basophil pct 0.6 % JAIME Comment: Interpretive Data Percent cell count reference ranges are not reported, since discordance with absolute values may lead to misinterpretation of CBC data. Current Interpretive Data was last revised on 2017. Testing performed by: [address] [address] Blood 2024 12:4 7 PM AUTO CUSTOMIZE PAINTER 2024 12:49 PM AUTO CUSTOMIZE PAINTER us Venkat Vivar DO LAB BLOOD ORDERABLES Final R esult JAIME [address] [facility] Department [place] [address] * Comprehensive metabolic panel (2024 12:47 PM AUTO CUSTOMIZE PAINTER) Sodium 142 135 - 145 mmol/L Comment:Testing performed by : [address] [address] Potassium, pl 4.4 3.3 - 4.9 mmol/L JAIME Comment:Testing performed by : [address] [address] Chloride 107 97 - 110 mmol/L JAIME Comment:Testing performed by : [address] [address] CO2 27 22 - 32 mmol/L JAIME Comment:Testing performed by : [address] [address] Anion gap 8 2 - 15 mmol/L JAIME Comment:Testing performed by : [address] [address] BUN 15 6 - 25 mg/dL JAIME Comment:Testing performed by : [address] [address] Creatinine 0.80 0.80 - 1.30 mg/dL JAIME Comment:Testing performed by : [address] [address] Glucose 108 70 - 199 mg/dL JAIME [...] last revised 2022. Testing performed by: [address] [address] Calcium 9.0 8.5 - 10.3 mg/dL JAIME Comment:Testing performed by : [address] [address] Bilirubin, total 0.4 0.1 - 1.2 mg/dL [facility] Comment:Testing performed by : [address] [address] Protein, pl 7.2 6.5 - 8.5 g/dL [facility] Comment:Testing performed by : [address] [address] Albumin 4.1 3.5 - 5.0 g/dL [facility] Comment:Testing performed by : [address] [address] Alk phos 71 40 - 130 Units/L [facility] Comment:Testing performed by : [address] [address] ALT 15 7 - 55 Units/L [facility] Comment:Testing performed by : [address] [address] AST 16 10 - 50 Units/L [facility] Comment:Testing performed by : [address] [address] Blood 2024 12:4 7 PM AUTO CUSTOMIZE PAINTER 2024 12:49 PM AUTO CUSTOMIZE PAINTER us Venkat Vivar DO LAB BLOOD ORDERABLES Final R esult JAIME [address] [facility] Department [place] [address] * (ABNORMAL) CBC with auto differential (2024 12:47 PM AUTO CUSTOMIZE PAINTER) WBC 6.8 3.8 - 9.9 K/cumm Comment:Testing performed by : [address] [address] Hgb 12.6(L) 13.0 - 17.5 g/dL JAIME Comment:Testing performed by : [address] [address] Hct 37.0(L) 38.9 - 50.3 % JAIME Comment:Testing performed by : [address] [address] Plt 185 150 - 400 K/cumm JAIME Comment:Testing performed by : [address] [address] MPV 8.9(L) 9.1 - 12.3 fL JAIME Comment:Testing performed by : [address] [address] RBC 3.89(L) 4.30 - 5.80 M/cumm JAIME Comment:Testing performed by : [address] [address] MCV 95.1 81.3 - 96.4 fL JAIME Comment:Testing performed by : [address] [address] MCH 32.4 27.1 - 33.3 pg JAIME Comment:Testing performed by : [address] [address] MCHC 34.1 32.3 - 35.7 g/dL JAIME Comment:Testing performed by : [address] [address] RDW CV 14.3 11.1 - 14.9 % JAIME Comment:Testing performed by : [address] [address] RDW SD 50.1(H) 35.7 - 48.1 fL JAIME Comment:Testing performed by : [facility], [address] [place] [address]., [address] NRBC abs 0.00 0.00 - 0.01 K/cumm JAIME Comment:Testing performed by : [facility], [address] [place] [address]., [address] Blood 2024 12:4 7 PM AUTO CUSTOMIZE PAINTER 2024 12:49 PM AUTO CUSTOMIZE PAINTER Venkat Vivar DO LAB BLOOD ORDERABLES Final R esult JAIME [address] [facility] Department [place] [address] documented in this encounter Visit Diagnoses Diagnosis Encounter for person encountering health services Malignant neoplasm of urinary bladder, unspecified site (HCC) documented in this encounter Orders Appointment Requests Count Last Ordered Date Fi rst Ordered Date ONCBCN LAB APPOINTMENT 1 2024 documented in this encounter Care Teams Leaf Conditioner Relationship Specialty Start Date End Date Nikky Reyes MD [facility] [address] [place] [address] PCP - General Family Practice 12/15/23 Venkat Vivar DO [address] [place] [address] MEDICAL ONCOLOGY, [facility] [address] [place], [place] [id number] Medical Oncologist/Manager [employer] Hematology and Oncology 12/15/23 Kwaku Martin MD [address] [place] [address] Consulting Physician Urology 12/15/23 Richard Hargrove MD [address] [place] [address] [address] [place], [place] [address] Radiation Oncologist Radiation Oncology 01/08/24 Adelso Quiñones [place] [address] [place] [address] Surgeon Urology 01/22/24 documented as of this encounter
--- OUTSIDE RECORDS SUMMARY | 2024-04-12 11:37 | XMS_ITS | Encounter Summary ---
Author Organization [facility] Address [address] [place] [address] Phone Care Team Providers Care Hat Brusher Machine Name Role Phone Nikky Reyes MD Primary Care Provider Venkat Vivar DO Unavailable [phone] Kwaku Martin MD Unavailable [phone] Richard Hargrove MD Unavailable [phone] Reason for Referral * MRI/CAT/PET Scan (Routine) - Closed Specialty Diagnoses / Procedures Referred By Leatha t Referred To Contact Radiology Procedures CT Abdomen Pelvis W Contrast Leeann Fleming MD [address] [place], [place] [id number] Phone: tel: Referral ID Status Reason Start Date Expiration Date Visits Re quested Visits Authorized [id number] Closed 01/06/2024 02/04/2025 1 1 * Diagnostic Imaging (Routine) - Closed Specialty Diagnoses / Procedures Referred By Leatha t Referred To Contact Radiology Procedures CHEST COMPUTED TOMOGRAPHY (CT) WITH CONTRAST Leeann Fleming MD [address] [place], [place] [id number] Phone: tel: Referral ID Status Reason Start Date Expiration Date Visits Re quested Visits Authorized [id number] Closed 01/06/2024 02/04/2025 1 1 Encounter Details Date Type Department Care Team (Late st Contact Info) Description 01/06/2024 Orders Only [facility] Physicians [facility] Oncology [address] [facility] [address] [place] [address] ProviderLeeann MD [address] [place], [place] [address] Social History Tobacco Use Types Packs/Day Years [...] on file 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 Gender Identity Not on file Sexual Orientation Not on file Occupation Industry Job Start Date Job End Date Retired Not on file Not on file Not on file documented as of this encounter Plan of Treatment Not on file documented as of this encounter Procedures Procedure Name Priority Date/Time Associated Diagnosis Comments CT ABDOMEN PELVIS W CONTRAST Schedule Routine, Read Routine (OP Routine) 12/31/2023 10:32 AM CDT CHEST COMPUTED TOMOGRAPHY (CT) WITH CONTRAST Schedule Routine, Read Routine (OP Routine) 12/31/2023 10:28 AM CDT documented in this encounter Results * CT Abdomen Pelvis W Contrast (12/31/2023 10:32 AM CDT) Anatomical Region Laterality Modality Body N/A Computed Tomogra phy Historical Provider MD DIEHL CT PROCEDURES Final R esult * CHEST COMPUTED TOMOGRAPHY (CT) WITH CONTRAST (12/31/2023 10:28 AM CDT) Anatomical Region Laterality Modality N/A Computed Tomogra phy Historical Provider MD DIEHL CT PROCEDURES Final R esult documented in this encounter Visit Diagnoses Not on filedocumented in this encounter Care Teams Hat Brusher Machine Relationship Specialty Start Date End Date Nikky Reyes MD [address] [facility] [address] [place] [address] PCP - General Family Practice 12/15/23 Venkat Vivar DO [address] [place] [address] MEDICAL ONCOLOGY, [facility] [address] [place] [address] Medical Oncologist/Cutter Wet Machine Hematology and Oncology 12/15/23 Kwaku Martin MD [address] [place] [address] Consulting Physician Urology 12/15/23 Richard Hargrove MD [address] [address] Radiation Oncologist Radiation Oncology 01/08/24 documented as of this encounter
--- OUTSIDE RECORDS SUMMARY | 2024-04-12 11:37 | XMS_ITS | Encounter Summary ---
Author Organization [facility] Healthcare Address [address] [place] [address] Care Team Providers Care Educational Sign Language Interpreter Name Role Phone Nikky Reyes MD Primary Care Provider Venkat Vivar DO Unavailable [phone] Kwaku Martin MD Unavailable [phone] Richard Hargrove MD Unavailable [phone] Encounter Details Date Type Department Care Team (Late st Contact Info) Description 01/09/2024 Telephone [facility] Medical Office Building 2 Radiation Oncology [address] [place] [address] Tana Denny Social History Tobacco Use Types Packs/Day Years [...] on file 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 MY NUMBER WAS GIVEN documented in this encounter Plan of Treatment Not on file documented as of this encounter Visit Diagnoses Not on filedocumented in this encounter Care Teams Educational Sign Language Interpreter Relationship Specialty Start Date End Date Nikky Reyes MD [address] [facility] 2 [place] [address] PCP - General Family Practice 12/15/23 Venkat Vivar DO [address] [facility] MEDICAL ONCOLOGY, [facility] [address] [place] [address] Medical Oncologist/Forensic Photographer Hematology and Oncology 12/15/23 Kwaku Martin MD [address] [place] [address] Consulting Physician Urology 12/15/23 Richard Hargrove MD [address] [place] [address] [address] [place] [address] Radiation Oncologist Radiation Oncology 01/08/24 documented as of this encounter
--- OUTSIDE RECORDS SUMMARY | 2024-04-12 11:37 | XMS_ITS | Encounter Summary ---
Author Organization [facility] Healthcare Address [address] [place] [address] Care Team Providers Care Food Manager Name Role Phone Nikky Reyes MD Primary Care Provider Venkat Vivar DO Unavailable [phone] Kwaku Martin MD Unavailable [phone] Richard Hargrove MD Unavailable [phone] Adelso Quiñones MD Unavailable [phone] Reason for Visit * Radiation Therapy (Routine) - Closed Specialty Diagnoses / Procedures Referred By Conthiral t Referred To Contact Radiation Oncology Diagnoses Malignant neoplasm of urinary bladder, unspecified site (HCC) Richard Hargrove MD [address] [place] [address] Phone: tel: fax: [facility] Medical Office Building 2 Radiation Oncology [address] [place] [address] Phone: tel: fax: Referral ID Status Reason Start Date Expiration Date Visits Re quested Visits Authorized [id number] Closed 01/22/2024 04/23/2024 99 99 Encounter Details Date Type Department Care Team ([facility] st Contact Info) Description 01/22/2024 1:30 PM CDT Treatment [facility] Medical Office Building 2 Radiation Oncology [address] [place] [address] 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 Gender Identity Not on file Sexual Orientation Not on file Occupation Industry Job Start Date Job End Date Retired Not on file Not on file Not on file documented as of this encounter Plan of Treatment Not on file documented as of this encounter Visit Diagnoses Not on filedocumented in this encounter Care Teams Food Manager Relationship Specialty Start Date End Date Nikky Reyes MD [address] [facility] 2 [place] [address] PCP - General Family Practice 12/15/23 Venkat Vivar DO [address] [place] [address] MEDICAL ONCOLOGY, [facility] [address] [place], [place] [address] Medical Oncologist/Coke Burner Hematology and Oncology 12/15/23 Kwaku Martin MD [address] [place] [address] Consulting Physician Urology 12/15/23 Richard Hargrove MD [address] [place] [address] [address] [place] [address] Radiation Oncologist Radiation Oncology 01/08/24 Adelso Quiñones [place] [address] [place] [address] Surgeon Urology 01/22/24 documented as of this encounter
--- OUTSIDE RECORDS SUMMARY | 2024-04-12 11:37 | XMS_ITS | Encounter Summary ---
Author Organization [facility] Address [address] [place] [address] Phone Care Team Providers Care Community Theater Actor Name Role Phone Nikky Reyes MD Primary Care Provider Venkat Vivar DO Unavailable [phone] Kwaku Martin MD Unavailable [phone] Richard Hargrove MD Unavailable [phone] Encounter Details Date Type Department Care Team (Late st Contact Info) Description 01/08/2024 Telephone [facility] Oncology [address] [place] [address] [place] [address] Dora Wheat, ELBERT Social History Tobacco Use Types Packs/Day Years [...] on file 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 * Telephone Encounter - Laura Arias RN - 01/08/2024 4:07 PM CDT Advise patients that chemotherapy will be done twice weekly while he is getting radiation treatments. He will not start the chemotherapy until he starts radiation. His scheduled appointments aretentative and will change if the radiation start date changes. * Telephone Encounter - Dora Wheat CMA - 01/08/2024 3:57 PM CDT Pt called and would like a call back to discuss chemo and radiation. Pt has questions about the scheduling of chemo starting sooner than previously discussed and more frequent. Pt requesting callback at [phone]. documented in this encounter Plan of Treatment Not on file documented as of this encounter Visit Diagnoses Not on filedocumented in this encounter Care Teams Community Theater Actor Relationship Specialty Start Date End Date Nikky Reyes MD [address] [place] [address] [place] 2 [place] [address] PCP - General Family Practice 12/15/23 Venkat Vivar DO [address] [facility] MEDICAL ONCOLOGY, [address] [address] Medical Oncologist/Senior Physical Therapist Hematology and Oncology 12/15/23 Kwaku Martin MD [address] [place] [address] Consulting Physician Urology 12/15/23 Richard Hargrove MD [address] [place] [address] [place] [address] Radiation Oncologist Radiation Oncology 01/08/24 documented as of this encounter
--- OUTSIDE RECORDS SUMMARY | 2024-04-12 11:37 | XMS_ITS | Encounter Summary ---
Author Organization [facility] Address [address] [place] [address] Phone Care Team Providers Care Visual Education Director Name Role Phone Nikky Reyes MD Primary Care Provider Mitchell Vivar DO Unavailable [phone] Kwaku Martin MD Unavailable [phone] Encounter Details Date Type Department Care Team (Late st Contact Info) Description 01/05/2024 Orders Only [facility] Oncology [address] [facility] [address] [place] [address] Mitchell Vivar DO 1418 [facility] [address] [place] [address] Malignant neoplasm of urinary bladder, [...] on file 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 Gender Identity Not on file Sexual Orientation Not on file documented as of this encounter Plan of Treatment Not on file documented as of this encounter Results * Surgical pathology (01/09/2024 10:04 AM CDT) Tissue (Miscellaneous) 01/09/2024 10:04 AM CDT 01/09/2024 10:04 AM CDT Narrative [facility] - 01/23/2024 2:15 PM CDT EPIC results best viewed via link to PDF [facility] Pathology Consult Service [address], [place] [address] Note to Patients: This report [...] PATHOLOGY REPORT * Consult Report * [facility] is providing an additional review of previously collected tissue. FINAL Patient Name: ??MITCHELL RODRIGUEZ Address: ??[address] [facility], ?[place], [place] ??[address] Gender: ??M : ??1950 (Age: 73) Hospital #: ??[id number] Patient Type: ??[facility] Location: ??UNKNOWN Taken: ??01/09/2024 Received: ??01/09/2024 Accessioned: ??01/09/2024 Reported: ??01/23/2024 Physician(s): Benjamin SaldivarO. [facility] Department of Pathology [address] [place] [id number] P: [phone] ext [phone] F: [phone] Diagnosis: Consult material received from [place], [place] ([id number]; 12/05/2023) A. ??Bladder, superficial tumor, resection ? [...] Mitchell Vivar was provided a report via [employer] on 01/23/24 at 2 pm. Microscopic Description and Comment: Unless gross-only is specified, the final diagnosis for each specimen is based on a microscopic examination of each tissue sample. Richard Mendez M.D. History: The patient is a 73-year-old man with bladder tumors. Materials Received: Received for review are ten slides labeled [id number], accompanied by a corresponding pathology report. The material originates from [facility] ? [place], [place]. Additionally received ten unstained slides labeled [id number] ([id number]) for additional materials on 01/21/2024. The material originates from [place], [place]. Selected slide(s) may be digitally scanned for our files, and all materials are returned to the referring institution, along with a copy of our final report. Any testing required for diagnostic purposes was performed in the Department of Pathology and Immunology at [facility], [address] [place] [id number] CLIA # [id number] The performance characteristics of the testing cited in this report (if any) were determined by the ??[facility] Department of Pathology and Immunology [facility], as part of an ongoing quality assurance coordinator program and in compliance with federally mandated [...] determined by the [facility], [facility] Department of Pathology and Immunology. ??It has not been cleared or approved by the U.S. Food and Drug Administration. ??Any test designated as LDT was developed and its performance characteristics determined by [facility]. It has not been cleared or approved by the FDA. This test is used for clinical purposes and should not be regarded as investigational or for research. Report images and/or scanned reports, if included, only viewable in PDF version of report. Mitchell Vivar DO LAB PATHOLOGY ORDERABLES Fin al Result [facility] [address] [place] [address] documented in this encounter Visit Diagnoses Diagnosis Malignant neoplasm of urinary bladder, unspecified site (HCC)- Primary Malignant neoplasm of urinary bladder, unspecified site (HCC) documented in this encounter Care Teams Visual Education Director Relationship Specialty Start Date End Date Nikky Reyes MD [address] [facility] [address] [place] [address] PCP - General Family Practice 12/15/23 Mitchell Vivar DO 1418 [facility] MEDICAL ONCOLOGY, [address] [address] Medical Oncologist/Spinning Lathe Operator Hematology and Oncology 12/15/23 Kwaku Martin MD 1 [place] [address] Consulting Physician Urology 12/15/23 documented as of this encounter
--- OUTSIDE RECORDS SUMMARY | 2024-04-12 11:37 | XMS_ITS | Encounter Summary ---
Author Organization [facility] Address [address] [place] [address] Care Team Providers Care Bender Helper Name Role Phone Nikky Reyes MD Primary Care Provider Venkat Vivar DO Unavailable [phone] Kwaku Martin MD Unavailable [phone] Richard Hargrove MD Unavailable [phone] Adelso Quiñones MD Unavailable [phone] Reason for Visit * Reason Comments Consult * Consultation (Routine) - Closed Specialty Diagnoses / Procedures Referred By Leatha t Referred To Contact Radiation Oncology Diagnoses Malignant neoplasm of urinary bladder, unspecified site (HCC) Venkat Vivar DO [facility] [address] Phone: tel: fax: Richard Hargrove MD [facility] [address] Phone: tel: fax: Referral ID Status Reason Start Date Expiration Date V isits Requested Visits Authorized [id number] Closed Specialty Services Required 01/05/2024 02/05/2024 1 1 Encounter Details Date Type Department Care Team (Late st Contact Info) Description 01/22/2024 1:[address] 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 Gender Identity Not on file Sexual Orientation Not on file Occupation Industry Job Start Date Job End Date Retired Not on file Not on file Not on file documented as of this encounter Last Filed Vital Signs Vital Sign Reading Time Taken Comments Blood Pressure 100/63 01/22/2024 1:13 PM CDT Pulse 60 01/22/2024 1:13 PM CDT Temperature - - Respiratory Rate - - Oxygen Saturation 99% 01/22/2024 1:13 PM CDT Inhaled Oxygen Concentration - - Weight 87.5 kg (193 lb) 01/22/2024 1:13 PM CDT Height - - Body Mass Index 37.63 01/05/2024 3:51 PM CDT documented in this encounter Consult Notes * Richard Hargrove MD - 01/22/2024 1:00 PM CDT Radiation Oncologist: Richard Hargrove MD Primary Care Physician: Nikky Reyes MD Medical Oncologist: Venkat Vivar DO Surgeon: Adelso Quiñones MD Referring Provider: Venkat Vivar DO Date of Service: 01/22/2024 RADIATION ONCOLOGY CONSULT NOTE IDENTIFYING DATA: Cancer Staging Malignant neoplasm of urinary bladder (HCC) Staging form: Urinary Bladder, AJCC 8th Edition - Clinical stage from 12/05/2023: Stage II (cT2, cN0, cM0) - Signed by Chayo Card MD on 01/22/2024 Venkat Aranda presents today for consultative evaluation and definitive treatment recommendations in regard to his diagnosis of bladder cancer HISTORY OF PRESENT ILLNESS: Venkat Aranda is a pleasant 73 y.o. male seen at the request of Venkat Vivar DO for his recently diagnosed bladder cancer. Of note, Mr. Aranda has a history of ischemic cardiomyopathy, tricuspid and mitral valve insufficiency, and CHF. In summer 2023, he presented with hematuria. He underwent 12/05/23 cystoscopy. A lobulated mas measuring greater than 5cm was seen involving the majority of the right bladder, overlying the right ureteral orifice. TURBT was performed. 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 12/31/23 CT chest was negative for metastatic disease. 12/31/23 CT A/P showed no evidence of romi ordistant disease. Mr. Aranda reports mild discomfort with urination, but not overt pain or dysuria. Reports mild urinary hesitation and weaker flow, not bothersome. No recent hematuria. No difficulties with bowel movements. No changes in weight or appetite. No fevers, chills. PAST MEDICAL, SURGICAL, FAMILY, AND SOCIAL HISTORY History Last Reviewed by Salena Jo RN on 01/22/2024 at 1:13 PM Sections Reviewed Tobacco ALLERGIES: Allergies as of 01/22/2024 Reviewed by Salena Jo RN on 01/22/2024 No Known Allergies MEDICATIONS: Review Info User Date and Time SALENA JO RN [[id number]] 01/22/2024 1:13 PM REVIEW OF SYSTEM Except for the symptoms described above, the remainder of the review of systems is negative. Specifically, except as noted, when asked the patient expressed no complaints relative to constitutional (fever, weight loss), eyes, ears, nose, mouth, throat, neurologic, cardiovascular, pulmonary, breast,GI, , skin, musculoskeletal, endocrine, hematologic/lymphatic, or immunologic systems. RADIATION SCREENING QUESTIONS Prior radiation therapy: No Pacemaker: No Other implantable devices: No Connective tissue disease: No PHYSICAL EXAMINATION: BP 100/63 Pulse 60 Wt 87.5 kg (193 lb) SpO2 99% BMI 37.63 kg/m?? Pain Score and Location 01/22/24 1313 PainSc: 0-No pain General: No acute distress. HEENT: Normocephalic, atraumatic. Oropharynx without thrush. Neck: Supple. Lymph: No cervical, supraclavicular adenopathy. Chest: Clear to auscultation. CV: Regular rate and rhythm. Abdomen: Soft, nontender. Extremities: No clubbing cyanosis or edema. MSK: Full range of motion. Neuro: No focal deficits. Skin: No concerning lesions. ECOG 1 DIAGNOSTIC REPORTS REVIEWED: Imaging: I personally reviewed the imaging and agree with reported findings as detailed in the HPI Laboratory/Pathology: I personally reviewed the laboratory and pathology values below: 12/05/23 pathology report Imaging per [facility] ASSESSMENT/PLAN: 73 y.o.male with MIBC is being seen for definitive radiation therapy Mr. Aranda was not deemed a surgical candidate due to cardiac comorbidities, and in any event is not interested in pursuing an invasive approach to treatment of his MIBC. He is a candidate for chemoradiation therapy. We discussed chemoradiation therapy as an alternative option for definitive treatment. Benefits, risks, and side effects of radiation therapy were discussed, including but not limited to skin irritation, fatigue, urinary hesitancy, urgency, frequency, radiation cystitis, proctitis, and erectile dysfunction. We also discussed the risk that even if his cancer were controlled, there could be a risk that his bladder could become nonfunctional. All of his questions and concerns were addressed. He would like to proceed. CT simulation shortly. Treatment to start soon thereafter in coordinationwith Dr. Vivar. RAD ONC PAIN PLAN: The patient is not currently having any pain that requires changes in pain management. My total encounter time on 01/22/2024 was 60 minutes which was spent in the activities documented in the note. This includes time spent prior to the visit and after the visit in direct care of the patient. This time does not include time spent in any separately reportable services. Richard Hargrove MD documented in this encounter Plan of Treatment Not on file documented as of this encounter Visit Diagnoses Diagnosis Malignant neoplasm of urinary bladder, unspecified site (HCC) documented in this encounter Orders Outpatient Referral Count Last Ordered Date Fir st Ordered Date AMB REFERRAL TO RADIATION ONCOLOGY 1 2023 documented in this encounter Care Teams Bender Helper Relationship Specialty Start Date End Date Nikky Reyes MD 34[address] [facility] 2 [place] [address] PCP - General Family Practice 12/15/23 Venkat Vivar DO 1418 [facility] MEDICAL ONCOLOGY, [facility] [address] [place] [address] Medical Oncologist/Laborer/Key Man Hematology and Oncology 12/15/23 Kwaku Martin MD [address] [place] [address] Consulting Physician Urology 12/15/23 Richard Hargrove MD [facility]8 [facility] [address] [place] [address] Radiation Oncologist Radiation Oncology 01/08/24 Adelso Quiñ[place] [address] [place] [address] Surgeon Urology 01/22/24 documented as of this encounter
--- OUTSIDE RECORDS SUMMARY | 2024-04-12 11:37 | XMS_ITS | Encounter Summary ---
Author Organization [facility] Address [address] [place] [address] Phone Care Team Providers Care Diver Pumper Name Role Phone Nikky Reyes MD Primary Care Provider Venkat Vivar DO Unavailable [phone] Kwaku Martin MD Unavailable [phone] Richard Hargrove MD Unavailable [phone] Encounter Details Date Type Department Care Team (Late st Contact Info) Description 01/07/2024 Telephone [facility] Oncology [address] [place] [address] [place] [address] Barbi Dial [facility] Social History Tobacco Use Types Packs/Day Years [...] on file 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 * Telephone Encounter - Laura Arias RN - 01/08/2024 1:15 PM CDT Advise patients that if patient would be seen by RT sooner then 01/21 and going to start RT sooner then 01/25 to call us and we can move up his start of chemotherapy. Patient is to get chemo andradiation concurrently. * Telephone Encounter - Barbi Dial CMA - 01/07/2024 4:33 PM CDT Patient spouse called to inform Dr Vivar of the name of patient urologist which patient saw today, Dr Adelso Quiñones; she states they could not remember the name of the urologist when here for consult on 01/05/2024 She was also questioning when patient would begin chemotherapy treatments, she states was told whenthey were in the office he would start on 01/26/2024, informed her I see that there are orders in chart to be scheduled She states RT was going to discuss starting radiation sooner than scheduled with Dr Vivar Advised her that it is late in the day; will most probably not receive a return call until tomorrow. documented in this encounter Plan of Treatment Not on file documented as of this encounter Visit Diagnoses Not on filedocumented in this encounter Care Teams Diver Pumper Relationship Specialty Start Date End Date Nikky Reyes MD 3417 [facility] 2 [place], [place] [id number] PCP - General Family Practice 12/15/23 Venkat Vivar DO 1418 [facility] MEDICAL ONCOLOGY, [facility] 180 [place] [address] Medical Oncologist/Transmissions Systems Operator Hematology and Oncology 12/15/23 Kwaku Martin MD [address] [place] [address] Consulting Physician Urology 12/15/23 Richard Hargrove MD [address] [address] Radiation Oncologist Radiation Oncology 01/08/24 documented as of this encounter
--- OUTSIDE RECORDS SUMMARY | 2024-04-12 11:37 | XMS_ITS | Encounter Summary ---
Author Organization [facility] Address [address] [place] [address] Phone Care Team Providers Care Warehouseman Name Role Phone Nikky Reyes MD Primary Care Provider Venkat Vivar DO Unavailable [phone] Kwaku Martin MD Unavailable [phone] Richard Hargrove MD Unavailable [phone] Adelso Quiñones MD Unavailable [phone] Encounter Details Date Type Department Care Team (Late st Contact Info) Description 01/23/2024 Orders Only [facility] Oncology 14[address] [facility] [address] [place] [address] Venkat Vivar DO 1418 [facility] [address] [place], [place] [id number] Encounter for person encountering health services (Primary [...] on file 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 Gender Identity Not on file Sexual Orientation Not on file Occupation Industry Job Start Date Job End Date Retired Not on file Not on file Not on file documented as of this encounter Plan of Treatment Not on file documented as of this encounter Results * (ABNORMAL) CBC with auto differential (2024 12:47 PM CLIENT SERVICE SUPERVISOR) WBC 6.8 3.8 - 9.9 K/cumm Comment:Testing performed by : [address] [address] Hgb 12.6(L) 13.0 - 17.5 g/dL JAIME Comment:Testing performed by : [address] [address] Hct 37.0(L) 38.9 - 50.3 % JAIME Comment:Testing performed by : [address] [address] Plt 185 150 - 400 K/cumm JAIME Comment:Testing performed by : [address] [address] MPV 8.9(L) 9.1 - 12.3 fL JAIME Comment:Testing performed by : [address] [address] RBC 3.89(L) 4.30 - 5.80 M/cumm JAIME Comment:Testing performed by : [address] [address] MCV 95.1 81.3 - 96.4 fL JAIME Comment:Testing performed by : [address] [address] MCH 32.4 27.1 - 33.3 pg JAIME Comment:Testing performed by : [address] [address] MCHC 34.1 32.3 - 35.7 g/dL JAIME Comment:Testing performed by : [address] [address] RDW CV 14.3 11.1 - 14.9 % JAIME Comment:Testing performed by : [address] [address] RDW SD 50.1(H) 35.7 - 48.1 fL JAIME PINEDA Comment:Testing performed by : [address] [address] NRBC abs 0.00 0.00 - 0.01 K/cumm JAIME Comment:Testing performed by : [address] [address] Blood 2024 12:4 7 PM CLIENT SERVICE SUPERVISOR 2024 12:49 PM CLIENT SERVICE SUPERVISOR Venkat Vivar DO LAB BLOOD ORDERABLES Final R esult Performing Organization Address City/State/[facility] Co de Phone Number JAIME [facility] Department [place] [address] * Comprehensive metabolic panel (2024 12:47 PM CLIENT SERVICE SUPERVISOR) Sodium 142 135 - 145 mmol/L Comment:Testing performed by : [address] [address] Potassium, pl 4.4 3.3 - 4.9 mmol/L JAIME Comment:Testing performed by : [address] [address] Chloride 107 97 - 110 mmol/L JAIME Comment:Testing performed by : [address] [address] CO2 27 22 - 32 mmol/L JAIME Comment:Testing performed by : [address] [address] Anion gap 8 2 - 15 mmol/L JAIME Comment:Testing performed by : [address] [address] BUN 15 6 - 25 mg/dL JAIME Comment:Testing performed by : [address] [address] Creatinine 0.80 0.80 - 1.30 mg/dL JAIME PINEDA Comment:Testing performed by : [address] [address] Glucose 108 70 - 199 mg/dL JAIME [...] was last revised 2022. Testing performed by: [address] [address] Calcium 9.0 8.5 - 10.3 mg/dL JAIME Comment:Testing performed by : [address] [address] Bilirubin, total 0.4 0.1 - 1.2 mg/dL JAIME Comment:Testing performed by : [address] [address] Protein, pl 7.2 6.5 - 8.5 g/dL JAIME Comment:Testing performed by : [address] [address] Albumin 4.1 3.5 - 5.0 g/dL JAIME Comment:Testing performed by : [address] [address] Alk phos 71 40 - 130 Units/L JAIME Comment:Testing performed by : [address] [address] ALT 15 7 - 55 Units/L JAIME Comment:Testing performed by : [address] [address] AST 16 10 - 50 Units/L JAIME Comment:Testing performed by : [address] [address] Blood 2024 12:4 7 PM CLIENT SERVICE SUPERVISOR 2024 12:49 PM CLIENT SERVICE SUPERVISOR Venkat Vivar DO LAB BLOOD ORDERABLES Final R esult JAIME 11[address] [facility] Department [place] [address] documented in this encounter Visit Diagnoses Diagnosis Encounter for person encountering health services- Primary Malignant neoplasm of urinary bladder, unspecified site (HCC) documented in this encounter Orders Appointment Requests Count Last Ordered Date Fi rst Ordered Date ONCBCN LAB APPOINTMENT 1 2024 ONCBCN RETURN CHEMO 1.5HRS 1 2024 documented in this encounter Care Teams Warehouseman Relationship Specialty Start Date End Date Nikky Reyes MD 3417 [facility] [place] 2 [place] [address] PCP - General Family Practice 12/15/23 [place] [address] [place] [address] MEDICAL ONCOLOGY, [facility] 180 [place] [address] Medical Oncologist/Ediscovery Project Manager Hematology and Oncology 12/15/23 Kwaku Martin MD 1 [place] [address] Consulting Physician Urology 12/15/23 Richard Hargrove MD [address] [place] [address] 160 [place] [address] Radiation Oncologist Radiation Oncology 01/08/24 Adelso Quiñones [place] [address] [facility] [address] [place] [address] Surgeon Urology 01/22/24 documented as of this encounter
--- OUTSIDE RECORDS SUMMARY | 2024-04-12 11:40 | XMS_ITS | Encounter Summary ---
Author Organization [facility] Address [address] [place] [address] Care Team Providers Care Machine Tool Mechanic Name Role Phone Rosanne Santana MD Primary Care Provider [phone] Encounter Details Date Type Department Care Team (Late st Contact Info) Description 11/06/[address] [facility] [address] [place] [address] Hudson Lindsay MD NO ADDRESS ON FILE Social History Tobacco Use Types Packs/Day Years Used Date Smoking Tobacco: Never Assessed Sex and Gender Information Value Date Recorded Sex Assigned at Not on file Gender Identity Not on file Sexual Orientation Not on file documented as of this encounter Plan of Treatment Not on file documented as of this encounter Visit Diagnoses Not on filedocumented in this encounter Care Teams Machine Tool Mechanic Relationship Specialty Start Date End Date Rosanne Santana MD [address] [place] [address] [place] [address] PCP - General 10/24/03 documented as of this encounter
--- OUTSIDE RECORDS SUMMARY | 2024-04-12 11:40 | XMS_ITS | Encounter Summary ---
Author Organization [facility] Address 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 Jono Richards MD [address] [place] [address] Coronary Atherosclerosis of [place] Coronary Artery (Primary Dx) Social History Tobacco Use Types Packs/Day Years Used Date Smoking Tobacco: Never Assessed Sex and Gender Information Value Date Recorded Sex Assigned at Not on file Gender Identity Not on file Sexual Orientation Not on file documented as of this encounter Plan of Treatment Not on file documented as of this encounter Visit Diagnoses Diagnosis Coronary atherosclerosis of [place] coronary artery- Primary documented in this encounter Care Teams Synthetic Cloth Binding Cutter Relationship Specialty Start Date End Date Rosanne Santana MD [address] [facility] [place] [address] PCP - General 10/24/03 documented as of this encounter
--- OUTSIDE RECORDS SUMMARY | 2024-04-12 11:40 | XMS_ITS | Encounter Summary ---
Author Organization [employer] Address [address] [place] [address] Care Team Providers Care Associate Engineer Name Role Phone Rosanne Santana MD Primary Care Provider [phone] Encounter Details Date Type Department Care Team (Late st Contact Info) Description 05/16/[address] [facility] ([facility]) [address] [place] [id number] Spencer Nicholas MD NO ADDRESS ON FILE Social History [...] on filedocumented in this encounter Care Teams Associate Engineer Relationship Specialty Start Date End Date Rosanne Santana MD [address] [place] [address] PCP - General 10/24/03 documented as of this encounter
--- OUTSIDE RECORDS SUMMARY | 2024-04-12 11:40 | XMS_ITS | Encounter Summary ---
Author Organization [employer] Address [address] [place] [address] Care Team Providers Care Plant Engineering Supervisor Name Role Phone Rosanne Santana MD Primary Care Provider [phone] Encounter Details Date Type Department Care Team (Latest Contact Info) Description 11/06/2004 Outpatient Historical [facility] Rosanne Santana MD [address] [facility] [place] [address] PALPITATIONS (Primary Dx) Social History Tobacco Use Types Packs/Day Years Used Date Smoking Tobacco: Never Assessed Sex and Gender Information Value Date Recorded Sex Assigned at Not on file Gender Identity Not on file Sexual Orientation Not on file documented as of this encounter Plan of Treatment Not on file documented as of this encounter Visit Diagnoses Diagnosis Palpitations- Primary documented in this encounter Care Teams Plant Engineering Supervisor Relationship Specialty Start Date End Date Rosanne Santana MD [address] [place] [address] [place] [address] PCP - General 10/24/03 documented as of this encounter
--- OUTSIDE RECORDS SUMMARY | 2024-04-12 11:40 | XMS_ITS | Encounter Summary ---
Author Organization [employer] Address [address] [place] [address] Care Team Providers Care Acetylene Burner Name Role Phone Rosanne Santana MD Primary Care Provider [phone] Encounter Details Date Type Department Care Team (Late st Contact Info) Description 02/13/2006 Outpatient Historical [facility] Support Serv. ([facility]) [address] [place] [address] Venkat Tripp MD [address] [facility] [address] [place] [address] Social History Tobacco Use Types Packs/Day Years Used Date Smoking Tobacco: Never Assessed Sex and Gender Information Value Date Recorded Sex Assigned at Not on file Gender Identity Not on file Sexual Orientation Not on file documented as of this encounter Plan of Treatment Not on file documented as of this encounter Visit Diagnoses Not on filedocumented in this encounter Care Teams Acetylene Burner Relationship Specialty Start Date End Date Rosanne Santana MD [address] [place] [address] [place] [id number] PCP - General 10/24/03 documented as of this encounter
--- OUTSIDE RECORDS SUMMARY | 2024-04-12 11:40 | XMS_ITS | Clinical Summary ---
Author Organization [facility] Address [address] [facility] [place] [address] Phone Care Team Providers Care Professional Bass Fisher Name Role Phone Rosanne Santana MD Primary Care Provider [phone] Social History Tobacco Use Types Packs/Day Years Used Date Smoking Tobacco: Never Assessed Sex and Gender Information Value Date Recorded Sex Assigned at Not on file Gender Identity Not on file Sexual Orientation Not on file Plan of Treatment Health Maintenance Due Date Last Done Comments DTAP/TDAP/TD VACCINES (1 - Tdap) 02/01/1967 ZOSTER VACCINE (1 of 2) 02/01/1998 PNEUMOCOCCAL VACCINE 65+ YEARS (1 of 1 - PCV) 02/02/20 13 RSV VACCINE (60+ or ) (1 - 1-dose 75+ series) 02/01/2023 INFLUENZA VACCINE (#1) 2023 Care Teams Professional Bass Fisher Relationship Specialty Start Date End Date Rosanne Santana MD [address] [place] [address] [place] [address] PCP - General 10/24/03
--- OUTSIDE RECORDS SUMMARY | 2024-04-12 11:40 | XMS_ITS | Encounter Summary ---
Author Organization [employer] Address [address] [place] [address] Care Team Providers Care Medical Records Supervisor Name Role Phone Rosanne Santana MD Primary Care Provider [phone] Encounter Details Date Type Department Care Team (Latest Contact Info) Description 05/16/2006 Outpatient Historical [facility] Rosanne Santana MD [address] [facility] [address] [facility] [place] [place] [address] AMI Inferolateral Wall (Primary Dx) Social History Tobacco Use Types Packs/Day Years Used Date Smoking Tobacco: Never Assessed Sex and Gender Information Value Date Recorded Sex Assigned at Not on file Gender Identity Not on file Sexual Orientation Not on file documented as of this encounter Plan of Treatment Not on file documented as of this encounter Visit Diagnoses Diagnosis Acute myocardial infarction of inferolateral wall, episode of care unspecified- Primary documented in this encounter Care Teams Medical Records Supervisor Relationship Specialty Start Date End Date Rosanne Santana MD [address] [address] [place] [address] PCP - General 10/24/03 documented as of this encounter
--- OUTSIDE RECORDS SUMMARY | 2024-04-12 11:40 | XMS_ITS | Encounter Summary ---
Author Organization [facility] Address [address] [place] [address] Care Team Providers Care Third Rigger Name Role Phone Rosanne Santana MD Primary Care Provider [phone] Encounter Details Date Type Department Care Team (Latest Contact Info) Description 05/21/2006 Outpatient Historical [facility] Rosanne Sanchez MD [address] [place] [address] Coronary Atherosclerosis of [place] Coronary Artery (Primary Dx) Social History Tobacco [...] Procedure Name Priority Date/Time Associated Diagnosis Comments CBC WITH DIFFERENTIAL Routine 05/21/2006 7:05 AM MANAGER OF HUMAN RESOURCES CBC WITH DIFFERENTIAL Routine 05/21/2006 7:05 AM MANAGER OF HUMAN RESOURCES PTT Routine 05/21/2006 7:05 AM MANAGER OF HUMAN RESOURCES PROTIME-INR Routine 05/21/2006 7:05 AM MANAGER OF HUMAN RESOURCES BASIC METABOLIC PANEL Routine 05/21/2006 7:05 AM MANAGER OF HUMAN RESOURCES documented in this encounter Results * CBC WITH DIFFERENTIAL (05/21/2006 7:05 AM MANAGER OF HUMAN RESOURCES) NEUTROPHILS 61 45 - 70 % INTERFAC E SYSTEM LYMPHOCYTES 23 16 - 45 % INTERFAC E SYSTEM MONOCYTES 13 3 - 13 % INTERFACE SYSTEM EOSINOPHILS 3 0 - 7 % INTERFAC E SYSTEM BASOPHILS 0 0 - 2 % INTERFACE SYSTEM NEUTROPHIL ABSOLUTE 3.58 1.90 - 7.00 K/uL INTERFACE SYSTEM LYMPHOCYTE ABSOLUTE 1.35 0.70 - 4.50 K/uL INTERFACE SYSTEM MONOCYTE ABSOLUTE 0.75 0.10 - 1.30 K/uL INTERFACE SYSTEM EOSINOPHIL ABSOLUTE 0.18 0.00 - 0.70 K/uL INTERFACE SYSTEM BASOPHILS ABSOLUTE 0.02 0.00 - 0.20 K/uL INTERFACE SYSTEM 05/21/2006 7:05 AM MANAGER OF HUMAN RESOURCES Rosanne Santana MD HEMATOLOGY ORDERABLE S INTERFACE SYSTEM Refer to clinic/hospital department * CBC WITH DIFFERENTIAL (05/21/2006 7:05 AM MANAGER OF HUMAN RESOURCES) WBC 5.9 4.0 - 9.8 K/uL INTERFACE SYSTEM RBC 4.58 4.50 - 5.40 M/uL INTERFACE SYSTEM HEMOGLOBIN 14.5 13.6 - 16.5 g/dL INTERFACE SYSTEM HEMATOCRIT 42.7 40.0 - 48.0 % INTERFACE SYSTEM MCV 93.2 82.0 - 99.0 fL INTERFACE SYSTEM MCH 31.7 27.2 - 32.6 pg INTERFACE SYSTEM MCHC 34.0 31.5 - 35.5 % INTERFACE SYSTEM RDW 13.2 11.5 - 14.5 % INTERFACE SYSTEM RDW-STDEV 45.6 37.1 - 48.7 fL INTERFACE SYSTEM PLATELETS 175 140 - 350 K/uL INTERFACE SYSTEM MPV 9.8 9.3 - 12.4 fL INTERFACE SYSTEM 05/21/2006 7:05 AM MANAGER OF HUMAN RESOURCES Rosanne Santana MD HEMATOLOGY ORDERABLE S INTERFACE SYSTEM Refer to clinic/hospital department * PTT (05/21/2006 7:05 AM MANAGER OF HUMAN RESOURCES) PTT 28.0 24.4 - 36.4 Seconds INTERFACE SYSTEM Comment: PTT Therapeutic Range: Heparin Level ? PTT (seconds) <0.10 units/mL ? <53 0.10 - 0.30 units/mL ? 53 - 67 0.30 - 0.70 units/mL* ?67 - 95* 0.70 - 1.00 units/mL ?95 - 116 *corresponds to therapeutic range for unfractionated heparin 05/21/2006 7:05 AM MANAGER OF HUMAN RESOURCES Rosanne Santana MD HEMATOLOGY ORDERABLE S Performing Organization Address City/State/[facility] Co de Phone Number INTERFACE SYSTEM Refer to clinic/hospital department * PROTIME-INR (05/21/2006 7:05 AM MANAGER OF HUMAN RESOURCES) PROTIME 14.1 12.7 - 15.1 Seconds INTERFACE SYSTEM INR 1.1 0.9 - 1.1 INTERFACE SYSTEM Comment: INR Therapeutic Range: Adult: 2.0 - 3.0 for pulmonary embolism or prophylaxis against venous thrombosis or systemic embolization. 2.0 - 3.0 for patients with tissue heart valves. 2.5 - 3.5 for patients with mechanical heart valves or post SD. Pediatric ??(12 years and under): 1.5 - 3.0 Although the target range in children is not well established , INR values of 1.5 - 3.0 are recommended for most patients. Higher values have been used in children with prosthetic cardiac valves and hereditary clotting disorders. (<3 days) therapeutic ranges have not been established. 05/21/2006 7:05 AM MANAGER OF HUMAN RESOURCES Rosanne Santana MD HEMATOLOGY ORDERABLE S Performing Organization Address City/State/[facility] Co de Phone Number INTERFACE SYSTEM Refer to clinic/hospital department * (ABNORMAL) BASIC METABOLIC PANEL (05/21/2006 7:05 AM MANAGER OF HUMAN RESOURCES) GLUCOSE 104(H) 65 - 99 mg/dL INTERFACE SYSTEM CREATININE 0.87 0.67 - 1.17 mg/dL INTERFACE SYSTEM CALCIUM 8.9 8.4 - 10.2 mg/dL INTERFACE SYSTEM BUN 16 6 - 20 mg/dL INTERFACE SYSTEM SODIUM 142 135 - 145 mmol/L INTERFACE SYSTEM POTASSIUM 4.3 3.5 - 4.9 mmol/L INTERFACE SYSTEM CHLORIDE 106 96 - 108 mmol/L INTERFACE SYSTEM CO2 32(H) 22 - 30 mmol/L INTERFACE SYSTEM GFR, >60 >=60 mL/min/1. 7 sq meter INTERFACE SYSTEM GFR >60 >=60 mL/min/1. 7 sq meter INTERFACE SYSTEM Comment: Estimated GFR rate interpretative information for both Americans and non- Americans is available on the [facility] Intranet at: [email or web address] Select: Lab Policies and Procedures Select: Reference Ranges - GFR 05/21/2006 7:05 AM MANAGER OF HUMAN RESOURCES Rosanne Santana MD CHEMISTRY ORDERABLES INTERFACE SYSTEM Refer to clinic/hospital department documented in this encounter Visit Diagnoses Diagnosis Coronary atherosclerosis of [place] coronary artery- Primary documented in this encounter Care Teams Third Rigger Relationship Specialty Start Date End Date Rosanne Santana MD [address] [place] [address] PCP - General 10/24/03 documented as of this encounter
--- OUTSIDE RECORDS SUMMARY | 2024-04-12 11:40 | XMS_ITS | Encounter Summary ---
Author Organization [employer] [facility] Address [address] [place] [address] Care Team Providers Care Marketing Communications Assistant Name Role Phone Rosanne Santana MD Primary Care Provider [phone] Encounter Details Date Type Department Care Team (Late st Contact Info) Description 06/25/2007 Inpatient Historical [place] [address] [facility] [address] [place] [address] Jono Scherer MD [address] [facility] [address] [place] [address] Unspecified Chest Pain Social History Tobacco Use Types Packs/Day Years Used Date Smoking Tobacco: Never Assessed Sex and Gender Information Value Date Recorded Sex Assigned at Not on file Gender Identity Not on file Sexual Orientation Not on file documented as of this encounter Plan of Treatment Not on file documented as of this encounter Procedures Procedure Name Priority Date/Time Associated Diagnosis Comments CL CORONARY ANGIOGRAM Routine 07/01/2007 9:15 AM CDT CKMB W/REFLEX CK Timed Study 06/26/2007 4:50 AM CDT TROPONIN (W/REFLEX CKMB/CK) Timed Study 06/26/2007 4:50 AM CDT CBC WITH DIFFERENTIAL Routine 06/26/2007 4:50 AM CDT PHOSPHORUS Routine 06/26/2007 4:50 AM CDT MAGNESIUM LEVEL Routine 06/26/2007 4:50 AM CDT BASIC METABOLIC PANEL Routine 06/26/2007 4:50 AM CDT CKMB W/REFLEX CK Timed Study 06/25/2007 8:18 PM CDT TROPONIN (W/REFLEX CKMB/CK) Timed Study 06/25/2007 8:18 PM CDT BASIC METABOLIC PANEL Stat 06/25/2007 1:44 PM CDT XR CHEST PA OR AP 1 VW Routine 06/25/2007 12:20 PM CDT TROPONIN (W/REFLEX CKMB/CK) Timed Study 06/25/2007 12:00 PM CDT CBC WITH DIFFERENTIAL Timed Study 06/25/2007 12:00 PM CDT PTT Timed Study 06/25/2007 12:00 PM CDT PROTIME-INR Timed Study 06/25/2007 12:00 PM CDT POC ACTIVATED CLOTTING TIME Routine 06/25/2007 10:51 AM CDT documented in this encounter Results * CL CORONARY ANGIOGRAM (07/01/2007 9:15 AM CDT) Narrative INTERFACE SYSTEM - 07/01/2007 9:15 AM CDT [address] [address] [place] [address] [email or web address] Cardiac Catheterization Comprehensive Report Patient: ?Mitchell Rodriguez Study ID: ? [id number] Gender: ? M : ?1950 Age: ?57 years Race: ? 1 Room: Bed: Height: ? 73 in ( 185.4 cm ) Study Date: ? June 25, 2007 Patient status: Inpatient Weight: ? 183.9 lb ( 83.6 kg ) Access. #: ?[id number] POC: Attending MD: ?? Romel Lozada MD: ??Romel Indications and History: INDICATIONS: Unstable angina. Procedure(s) Performed: DIAGNOSTIC PROCEDURES: Left heart catheterization. Left ventriculography. Selective coronary angiography. SUPPORT INTERVENTIONS: Angioplasty. Stent. Stent. Stent Placement. Stent Placement. Study Conclusions: SUMMARY - ??Global left ventricular function was borderline normal. EF estimated by contrast ventriculography was 50 %. - ??Mid LAD: There was a 70 % stenosis : 1st diagonal: There was a 80 % stenosis : Mid circumflex: There was a 50 % stenosis : - ??A successful balloon angioplasty with drug eluting stent was performed on the 80 % lesion in the 1st diagonal. Following intervention there was a 0 % residual stenosis. - ??A successful drug eluting stent was performed on the 70 % lesion in the mid LAD. Following intervention there was an excellent angiographic appearance with a 0 % residual stenosis. COMPLICATIONS: There were no complications. Description of Procedure: BACKGROUND INFORMATION: Contrast ( Optiray, 280 ml ) was administered during the procedure. The patient was given 13.000 mL Angiomax Bolus(IVP) 5mg/ml. The patient was given 1.800 mg/kg/hr Angiomax Drip 250mg/50ml. The patient was given 75.000 mcg FENTANYL (IVP). The patient was given 100.000 mL (IV) IV Solutions. The patient was given 200.000 mcg NTG (IC). The patient was given 3.000 l/min OXYGEN. The patient was given 300.000 mg PLAVIX. The patient was given 5.000 mg VERSED (IVP). NARRATIVE: Hemodynamics: IMPRESSIONS: Hemodynamic assessment demonstrated normal LVEDP. Cardiac structures: VENTRICULOGRAPHY: Global left ventricular function was borderline normal. EF estimated by contrast ventriculography was 50 %. Coronary and graft angiography: The coronary circulation is right dominant. LEFT ANTERIOR DESCENDING AND BRANCHES: Mid LAD: There was a 70 % stenosis : 1st diagonal: There was a 80 % stenosis : LEFT CIRCUMFLEX AND BRANCHES: Mid circumflex: There was a 50 % stenosis : RIGHT CORONARY AND BRANCHES: Mid RCA: Angiography showed minor luminal irregularities. Coronary Interventions: FIRST LESION: First lesion Summary: A successful balloon angioplasty with drug eluting stent was performed on the 80 % lesion in the 1st diagonal. Following intervention there was a 0 % residual stenosis. First lesion intervention detail: Procedures: A 2.5 x 13mm Cypher RX stent. There were no site complications. Second lesion summary: A successful drug eluting stent was performed on the 70 % lesion in the mid LAD. Following intervention there was an excellent angiographic appearance with a 0 % residual stenosis. Second lesion intervention detail: Procedures: A 3.5 x 23mm Cypher RX stent. There were no site complications. Condition1: --- ??Pressure mmHg ? Rate ?dPdt AO ?? 106-S/ 60-D, 79-M ?? 60 BPM LV ?? 102-S/ 2-BD, 13-ED ??80 BPM ??4840 AOp ??106-S/ 58-D, 81-M ?? 64 BPM LVp ??100-S/ 4-BD, 13-ED ??97 BPM ??3720 PBa ??105-S/ 44-D, 76-M ?? 60 BPM UD2 ??104-S/ 60-D, 81-M ?? 65 BPM PBv ??96-S/ -3-BD, 12-ED ??59 BPM ??5100 Prepared and Electronically Authenticated Jono Scherer MD Confirmed July 01, 2007 09:06:43 Procedure Note Provider, Historical - 07/01/2007 [address] [address] [place] [address] [email or web address] Cardiac Catheterization Comprehensive Report Patient: Mitchell Rodriguez Study ID: [id number] Gender: M : 1950 Age: 57 years Race: 1 Room: Bed: Height: 73 in ( 185.4 cm ) Study Date: June 25, 2007 Patient status: Inpatient Weight: 183.9 lb ( 83.6 kg ) Access. #: [id number] POC: Attending MD: Romel Lozada MD: Romel Indications and History: INDICATIONS: Unstable angina. Procedure(s) Performed: DIAGNOSTIC PROCEDURES: Left heart catheterization. Left ventriculography. Selective coronary angiography. SUPPORT INTERVENTIONS: Angioplasty. Stent. Stent. Stent Placement. Stent Placement. Study Conclusions: SUMMARY - Global left ventricular function was borderline normal. EF estimatedby contrast ventriculography was 50 %. - Mid LAD: There was a 70 % stenosis : 1st diagonal: There was a 80 % stenosis : Mid circumflex: There was a 50 % stenosis : - A successful balloon angioplasty with drug eluting stent wasperformed on the 80 % lesion in the 1st diagonal. Following intervention there was a 0 % residual stenosis. - A successful drug eluting stent was performed on the 70 % lesion inthe mid LAD. Following intervention there was an excellent angiographic appearance with a 0 % residual stenosis. COMPLICATIONS: There were no complications. Description of Procedure: BACKGROUND INFORMATION: Contrast ( Optiray, 280 ml ) was administered during the procedure. The patient was given 13.000 mL Angiomax Bolus(IVP) 5mg/ml. The patient was given 1.800 mg/kg/hr Angiomax Drip 250mg/50ml. The patient was given75.000 mcg FENTANYL (IVP). The patient was given 100.000 mL (IV) IV Solutions.The patient was given 200.000 mcg NTG (IC). The patient was given 3.000l/min OXYGEN. The patient was given 300.000 mg PLAVIX. The patient was given 5.000 mg VERSED (IVP). NARRATIVE: Hemodynamics: IMPRESSIONS: Hemodynamic assessment demonstrated normal LVEDP. Cardiac structures: VENTRICULOGRAPHY: Global left ventricular function was borderline normal. EF estimated by contrast ventriculography was 50 %. Coronary and graft angiography: The coronary circulation is right dominant. LEFT ANTERIOR DESCENDING AND BRANCHES: Mid LAD: There was a 70 % stenosis : 1st diagonal: There was a 80 % stenosis : LEFT CIRCUMFLEX AND BRANCHES: Mid circumflex: There was a 50 % stenosis : RIGHT CORONARY AND BRANCHES: Mid RCA: Angiography showed minor luminal irregularities. Coronary Interventions: FIRST LESION: First lesion Summary: A successful balloon angioplasty with drug eluting stent was performed on the 80 % lesion in the 1st diagonal. Following intervention there was a 0 % residual stenosis. First lesion intervention detail: Procedures: A 2.5 x 13mm Cypher RX stent. There were no site complications. Second lesion summary: A successful drug eluting stent was performed onthe 70 % lesion in the mid LAD. Following intervention there was anexcellent angiographic appearance with a 0 % residual stenosis. Second lesion intervention detail: Procedures: A 3.5 x 23mm Cypher RX stent. There were no site complications. Condition1: --- Pressure mmHg Rate dPdt AO 106-S/ 60-D, 79-M 60 BPM LV 102-S/ 2-BD, 13-ED 80 BPM 4840 AOp 106-S/ 58-D, 81-M 64 BPM LVp 100-S/ 4-BD, 13-ED 97 BPM 3720 PBa 105-S/ 44-D, 76-M 60 BPM UD2 104-S/ 60-D, 81-M 65 BPM PBv 96-S/ -3-BD, 12-ED 59 BPM 5100 Prepared and Electronically Authenticated Jono Scherer MD Confirmed July 01, 2007 09:06:43 Jono Scherer MD FLUOROSCOPY ORDERABL ES INTERFACE SYSTEM Refer to clinic/hospital department * CKMB W/REFLEX CK (06/26/2007 4:50 AM CDT) CKMB 3.0 <=6.7 ng/mL [facility] CKMB INTERP Negative [facility] Blood specimen (specimen) 06/26/2007 4:50 AM CDT 06/26/2007 4:59 AM CDT Jono Scherer MD CHEMISTRY ORDERABLES [facility] [address] [place] [address] * (ABNORMAL) CBC WITH DIFFERENTIAL (06/26/2007 4:50 AM CDT) WBC 6.5 4.0 - 9.8 K/uL [facility] MCH 31.8 27.2 - 32.6 pg [facility] MPV 9.9 9.3 - 12.4 fL [facility] HEMATOCRIT 40.2 40.0 - 48.0 % [facility] RDW-STDEV 44.4 37.1 - 48.7 fL [facility] RBC 4.31(L) 4.50 - 5.40 M/uL [facility] MCHC 34.1 31.5 - 35.5 % [facility] MCV 93.3 82.0 - 99.0 fL [facility] PLATELETS 146 140 - 350 K/uL [facility] HEMOGLOBIN 13.7 13.6 - 16.5 g/dL [facility] RDW 13.1 11.5 - 14.5 % [facility] BASOPHILS 0 0 - 2 % [facility] BASOPHILS ABSOLUTE 0.02 0.00 - 0.20 K/uL [facility] MONOCYTES 13 3 - 13 % [facility] MONOCYTE ABSOLUTE 0.83 0.10 - 1.30 K/uL [facility] NEUTROPHILS 66 45 - 70 % [facility] NEUTROPHIL ABSOLUTE 4.29 1.90 - 7.00 K/uL [facility] EOSINOPHILS 3 0 - 7 % [facility] EOSINOPHIL ABSOLUTE 0.16 0.00 - 0.70 K/uL [facility] LYMPHOCYTES 18 16 - 45 % [facility] LYMPHOCYTE ABSOLUTE 1.19 0.70 - 4.50 K/uL [facility] Blood specimen (specimen) 06/26/2007 4:50 AM CDT 06/26/2007 4:59 AM CDT Jono Scherer MD HEMATOLOGY ORDERABLE S Performing Organization Address City/[facility] Co de Phone Number INTERFACE SYSTEM Refer to clinic/hospital department [facility] [address] [place] [address] * (ABNORMAL) PHOSPHORUS (06/26/2007 4:50 AM CDT) PHOSPHORUS 2.2(L) 2.5 - 4.5 mg/dL [facility] Blood specimen (specimen) 06/26/2007 4:50 AM CDT 06/26/2007 4:59 AM CDT Jono Scherer MD CHEMISTRY ORDERABLES Performing Organization Address [facility] Co de Phone Number [facility] [address] [place] [address] * MAGNESIUM LEVEL (06/26/2007 4:50 AM CDT) MAGNESIUM 2.2 1.5 - 2.5 mg/dL [facility] Blood specimen (specimen) 06/26/2007 4:50 AM CDT 06/26/2007 4:59 AM CDT Jono Scherer MD CHEMISTRY ORDERABLES Performing Organization Address [facility] Co de Phone Number [facility] [address] [place] [address] * (ABNORMAL) BASIC METABOLIC PANEL (06/26/2007 4:50 AM CDT) BUN 15 6 - 20 mg/dL [facility] CHLORIDE 103 96 - 108 mmol/L [facility] GLUCOSE 97 65 - 99 mg/dL [facility] SODIUM 135 135 - 145 mmol/L [facility] CALCIUM 8.3(L) 8.4 - 10.2 mg/dL [facility] CO2 26 22 - 30 mmol/L [facility] CREATININE 0.78 0.67 - 1.17 mg/dL [facility] POTASSIUM 3.7 3.5 - 4.9 mmol/L [facility] GFR, >60 >=60 mL/min/1. 7 sq meter [facility] GFR >60 >=60 mL/min/1. 7 sq meter [facility] Comment: Estimated GFR rate interpretative information for both Americans and non- Americans is available on the [facility] Intranet at: [email or web address] Select: Lab Policies and Procedures Select: Reference Ranges - GFR Blood specimen (specimen) 06/26/2007 4:50 AM CDT 06/26/2007 4:59 AM CDT Jono Scherer MD CHEMISTRY ORDERABLES [facility] [address] [place] [address] * (ABNORMAL) TROPONIN (W/REFLEX CKMB/CK) (06/26/2007 4:50 AM CDT) TROPONIN T 0.06(AA) <=0.03 ng/mL [facility] Comment: Persistent abnormal result TROPONIN T INTERP See Below [facility] Comment: Elevated Troponin-T,Consistent with Myocardial Injury Blood specimen (specimen) 06/26/2007 4:50 AM CDT 06/26/2007 4:59 AM CDT Jono Scherer MD CHEMISTRY ORDERABLES Performing Organization Address City/[facility]/ZIP Co de Phone Number [facility] [address] [place] [address] * CKMB W/REFLEX CK (06/25/2007 8:18 PM CDT) CKMB 5.8 <=6.7 ng/mL [facility] CKMB INTERP Negative [facility] Blood specimen (specimen) 06/25/2007 8:18 PM CDT 06/25/2007 8:23 PM CDT Jono Scherer MD CHEMISTRY ORDERABLES Performing Organization Address [facility] Co de Phone Number [facility] [address] [place] [address] * (ABNORMAL) TROPONIN (W/REFLEX CKMB/CK) (06/25/2007 8:18 PM CDT) TROPONIN T 0.05(AA) <=0.03 ng/mL [facility] Comment: Results called to Lynne at 06/25/07 9:43 PM and read back verified. TROPONIN T INTERP See Below [facility] Comment: Elevated Troponin-T,Consistent with Myocardial Injury Blood specimen (specimen) 06/25/2007 8:18 PM CDT 06/25/2007 8:23 PM CDT Jono Scherer MD CHEMISTRY ORDERABLES Performing Organization Address City/[facility]/ZIP Co de Phone Number [facility] [address] [place] [address] * (ABNORMAL) BASIC METABOLIC PANEL (06/25/2007 1:44 PM CDT) GLUCOSE 94 65 - 99 mg/dL [facility] SODIUM 138 135 - 145 mmol/L [facility] CALCIUM 8.1(L) 8.4 - 10.2 mg/dL [facility] CO2 24 22 - 30 mmol/L [facility] CREATININE 0.76 0.67 - 1.17 mg/dL [facility] POTASSIUM 3.8 3.5 - 4.9 mmol/L [facility] BUN 11 6 - 20 mg/dL [facility] CHLORIDE 105 96 - 108 mmol/L [facility] GFR, >60 >=60 mL/min/1. 7 sq meter [facility] GFR >60 >=60 mL/min/1. 7 sq meter [facility] Comment: Estimated GFR rate interpretative information for both Americans and non- Americans is available on the [facility] Intranet at: [email or web address] Select: Lab Policies and Procedures Select: Reference Ranges - GFR Blood specimen (specimen) 06/25/2007 1:44 PM CDT 06/25/2007 1:55 PM CDT Alena Guardado MD CHEMISTRY ORDERABLES [facility] [address] [place] [place], [place] [address] * XR CHEST PA OR AP (06/25/2007 12:20 PM CDT) Anatomical Region Laterality Modality Chest Other 06/25/2007 12:2 0 PM CDT Narrative 06/25/2007 12:50 PM CDT ? [facility] ? [address] ?[place], [place] ??[address] ?Admit Date: 06/25/2007 ?MITCHELL RODRIGUEZ ?Sex: M ?Admit Prov: PAU ZAVALA ? Date: 1950 ?Primary Care Prov: ? CMRN: [id number] ?Room: 32A 3087 1 ? SSN: [id number] ? IMAGING SERVICES ?Ordering Prov: N/A ? Accession Number: [id number] ?Interpretation ? Chest single view ??06/25/2007 ? History: Chest pain ? Findings: The right costophrenic angle is cut off the film. No infiltrate, ? pneumothorax or pleural effusion is seen. The cardiac silhouette appears ? prominent. ? . ? Dictated by: ??NIYAH HULL ?06/25/2007 12:49 ? Electronically signed by: ??NIYAH HULL ?06/25/2007 12:50 Procedure Note Niyah Hull - 06/25/2007 [facility] [address] [place], [place] [address] Admit Date: 06/25/2007 MITCHELL RODRIGUEZ Sex: M Admit Prov: PAU ZAVALA J Date: 1950 Primary Care Prov: CMRN: [id number] Room: [address] [place] [address] SSN: [id number] IMAGING SERVICES Ordering Prov: N/A Interpretation Chest single view 06/25/2007 History: Chest pain Findings: The right costophrenic angle is cut off the film. Noinfiltrate, pneumothorax or pleural effusion is seen. The cardiac silhouetteappears prominent. . Dictated by: NIYAH HULL 06/25/2007 12:49 Electronically signed by: NIYAH HULL 06/25/2007 12:50 Jono Scherer MD DIAGNOSTIC IMAGING O RDERABLES * TROPONIN (W/REFLEX CKMB/CK) (06/25/2007 12:00 PM CDT) TROPONIN T <0.01 <=0.03 ng/mL [facility] TROPONIN T INTERP Negative [facility] Blood specimen (specimen) 06/25/2007 12:00 PM CDT 06/25/2007 12:12 PM CDT Jono Scherer MD CHEMISTRY ORDERABLES Performing Organization Address City/[facility] Co de Phone Number [facility] [address] [place] [address] * (ABNORMAL) PTT (06/25/2007 12:00 PM CDT) PTT 79.1(H) 24.4 - 36.4 Seconds [facility] Comment: PTT Therapeutic Range: Heparin Level ? PTT (seconds) <0.10 units/mL ? <53 0.10 - 0.30 units/mL ? 53 - 67 0.30 - 0.70 units/mL* ?67 - 95* 0.70 - 1.00 units/mL ? 95 - 116 *corresponds to therapeutic range for unfractionated heparin Blood specimen (specimen) 06/25/2007 12:00 PM CDT 06/25/2007 12:12 PM CDT Jono Scherer MD HEMATOLOGY ORDERABLE S Performing Organization Address [facility] Co de Phone Number [facility] [address] [place] [address] * (ABNORMAL) PROTIME-INR (06/25/2007 12:00 PM CDT) PROTIME 22.6(H) 12.7 - 15.1 Seconds [facility] INR 2.0(H) 0.9 - 1.1 [facility] Comment: INR Therapeutic Range: Adult: ?? 2.0 - 3.0 for pulmonary embolism or prophylaxis against venous ?thrombosis or systemic embolization. 2.0 - 3.0 for patients with tissue heart valves. 2.5 - 3.5 for patients with mechanical heart valves or post DE. Pediatric ??(12 years and under): 1.5 - 3.0 Although the target range in children is not well established, ?INR values of 1.5 - 3.0 are recommended for most patients. ?Higher values have been used in children with prosthetic ?cardiac valves and hereditary clotting disorders. (<3 days) therapeutic ranges have not been established. Blood specimen (specimen) 06/25/2007 12:00 PM CDT 06/25/2007 12:12 PM CDT Jono Scherer MD HEMATOLOGY ORDERABLE S [facility] [address] [place] [address] * (ABNORMAL) CBC WITH DIFFERENTIAL (06/25/2007 12:00 PM CDT) MCV 93.4 82.0 - 99.0 fL [facility] PLATELETS 156 140 - 350 K/uL [facility] HEMOGLOBIN 14.0 13.6 - 16.5 g/dL [facility] RDW 13.2 11.5 - 14.5 % [facility] WBC 6.3 4.0 - 9.8 K/uL [facility] MCH 32.0 27.2 - 32.6 pg [facility] MPV 10.0 9.3 - 12.4 fL [facility] HEMATOCRIT 40.8 40.0 - 48.0 % [facility] RDW-STDEV 44.9 37.1 - 48.7 fL [facility] RBC 4.37(L) 4.50 - 5.40 M/uL [facility] MCHC 34.3 31.5 - 35.5 % [facility] BASOPHILS 0 0 - 2 % [facility] BASOPHILS ABSOLUTE 0.01 0.00 - 0.20 K/uL [facility] MONOCYTES 10 3 - 13 % [facility] MONOCYTE ABSOLUTE 0.64 0.10 - 1.30 K/uL [facility] NEUTROPHILS 69 45 - 70 % [facility] NEUTROPHIL ABSOLUTE 4.33 1.90 - 7.00 K/uL [facility] EOSINOPHILS 2 0 - 7 % [facility] EOSINOPHIL ABSOLUTE 0.10 0.00 - 0.70 K/uL [facility] LYMPHOCYTES 19 16 - 45 % [facility] LYMPHOCYTE ABSOLUTE 1.17 0.70 - 4.50 K/uL [facility] Blood specimen (specimen) 06/25/2007 12:00 PM CDT 06/25/2007 12:12 PM CDT Jono Scherer MD HEMATOLOGY ORDERABLE S INTERFACE SYSTEM Refer to clinic/hospital department [facility] [address] [place] [address] * POC ACTIVATED CLOTTING TIME (06/25/2007 10:51 AM CDT) ACT POC 328 Seconds [facility] Comment: Note sheath pull range change effective 09/20/2005. ACT value for sheath pull at [facility] has been established to be < or = to 140. ??(See also Nursing Procedures for sheath pull in related nursing areas) Blood specimen (specimen) 06/25/2007 10:51 AM CDT 06/25/2007 10:51 AM CDT Pau Zavala MD POINT OF CARE TESTIN G Performing Organization Address City/[facility] Co de Phone Number [facility] [address] [place] [address] documented in this encounter Visit Diagnoses Diagnosis Chest pain, unspecified documented in this encounter Care Teams Marketing Communications Assistant Relationship Specialty Start Date End Date Rosanne Santana MD [address] [facility] [place] [address] [address] PCP - General 10/24/03 documented as of this encounter
--- OUTSIDE RECORDS SUMMARY | 2024-04-12 11:40 | XMS_ITS | Encounter Summary ---
Author Organization [facility] Address [address] [place] [address] Care Team Providers Care Clam Picker Name Role Phone Rosanne Santana MD Primary Care Provider [phone] Encounter Details Date Type Department Care Team (Late st Contact Info) Description 02/28/2014 Abstract [facility] - [address] [place] [address] Rosanne Santana MD [address] [place] [address] [address] [place] [address] Social History Tobacco Use Types Packs/Day Years Used Date Smoking Tobacco: Never Assessed Sex and Gender Information Value Date Recorded Sex Assigned at Not on file Gender Identity Not on file Sexual Orientation Not on file documented as of this encounter Plan of Treatment Not on file documented as of this encounter Visit Diagnoses Not on filedocumented in this encounter Care Teams Clam Picker Relationship Specialty Start Date End Date Rosanne Santana MD [address] [place] [address] [address] [place] [address] PCP - General 10/24/03 documented as of this encounter
--- OUTSIDE RECORDS SUMMARY | 2024-04-12 11:40 | XMS_ITS | Encounter Summary ---
Author Organization [facility] Address [address] [place] [address] Care Team Providers Care Road Hogger Operator Name Role Phone Rosanne Santana MD Primary Care Provider [phone] Encounter Details Date Type Department Care Team (Latest Contact Info) Description 09/24/2007 Outpatient Historical [facility] Rosanne Santana MD [address] [facility] [address] [place] [address] Coronary Atherosclerosis of [place] Coronary Artery Social History Tobacco Use Types Packs/Day Years Used Date Smoking Tobacco: Never Assessed Sex and Gender Information Value Date Recorded Sex Assigned at Not on file Gender Identity Not on file Sexual Orientation Not on file documented as of this encounter Plan of Treatment Not on file documented as of this encounter Procedures Procedure Name Priority Date/Time Associated Diagnosis Comments NM MYOCARD PERF IMAG SPECT MULT Timed Study 09/24/2007 7:21 AM CDT documented in this encounter Results * NM MYOCARD PERF IMAG SPECT MULT (09/24/2007 7:21 AM CDT) 09/24/2007 7:21 AM CDT Narrative INTERFACE SYSTEM - 09/24/2007 6:25 PM CDT ? [facility] ? [address] ?[place] ??[address] ?Admit Date: 09/24/2007 ?MICHAEL, VALORIE ?Sex: M ?Admit Prov: ROSANNE SANTANA ? Date: 1950 ?Primary Care Prov: ? CMRN: [id number] ?Room: [facility] ? SSN: [id number] ? IMAGING SERVICES ?Ordering Prov: N/A ? Accession Number: [id number] ?Interpretation ? Date of Procedure: 09/24/2007 ? Procedure Type: 1 Day Exercise Stress Myocardial Perfusion Study ? Clinical Indication: 57-year-old male with coronary artery disease, status ? post PCI of the LAD in 2003 and obtuse marginal in 2004. He now reports ? dyspnea exertion. ? Medications: Plavix simvastatin metoprolol aspirin ? Exercise Stress Procedure: ? The patient exercised for 12 minutes and 5 seconds on a Shadi protocol, ? achieving an estimated workload of 13 METS. The resting heart rate was 64 ? bpm, and increased to 142 bpm at peak exercise, which was 88 % of the ? predicted maximum heart rate. The resting blood pressure was 109 / 88 and ? 131 / 71 at peak exercise, demonstrating a normal response to exercise. ? Exercise was terminated due to shortness of breath. ? ECG: ? NSR. Normal tracing. No ischemic ST segment changes developed during ? treadmill exercise. There were no arrhythmias. ? Nuclear Imaging Protocol: ? Myocardial perfusion imaging was performed at rest approximately 60 minutes ? following the intravenous injection of 10 mCi TC99m tetrofosmin. At peak ? exercise, the patient was injected intravenously with 41 mCi TC99m ? tetrofosmin and exercise was continued for 2 minutes. Gated post-stress ? tomographic imaging was performed approximately 30 minutes later in same ? manner. SPECT reconstruction was performed in the short, vertical long and ? horizontal long axis views in both rest and stress image sets. ? Findings: ? There is a moderate size, moderate intensity perfusion defect in the ? lateral segments on stress imaging. This defect is unchanged on rest ? imaging. Gated SPECT examination reveals a dilated left ventricle. There is ? lateral hypokinesis. LVEF 49 %. ? Impression: ? 1. Abnormal myocardial perfusion study. Moderate size, moderate intensity, ? fixed perfusion defect in the lateral segments suggesting a region of ? myocardial infarction. There is no ischemia. ? 2. Abnormal gated SPECT examination. Dilated left ventricle. Lateral ? hypokinesis. LVEF 49 %. ? 3. No ischemic ST segment changes developed during treadmill exercise. ? 4. Good exercise capacity. ? 5. The technical quality of the study is good. ? 6. Prior study in 2007 reported a partially reversible inferolateral ? defect, LVEF 48 %. ? Recommendations: ? Clinical correlation ? . ? Dictated by: ??MITCHELL WRIGHT ?09/24/2007 18:16 ? Electronically signed by: ??MITCHELL WRIGHT ?09/24/2007 18:25 Procedure Note Mitchell Wright MD - 09/30/2007 [facility] [place] [address] [place], [place] [address] Admit Date: 09/24/2007 MICHAELMITCHELL J Sex: M Admit Prov: ROSANNE SANTANA Date: 1950 Primary Care Prov: CMRN: [id number] Room: [facility] SSN: [address] [place] [address] IMAGING SERVICES Ordering Prov: N/A Interpretation Date of Procedure: 09/24/2007 Procedure Type: 1 Day Exercise Stress Myocardial Perfusion Study Clinical Indication: 57-year-old male with coronary artery disease,status post PCI of the LAD in 2003 and obtuse marginal in 2004. He nowreports dyspnea exertion. Medications: Plavix simvastatin metoprolol aspirin Exercise Stress Procedure: The patient exercised for 12 minutes and 5 seconds on a Bruceprotocol, achieving an estimated workload of 13 METS. The resting heart ratewas 64 bpm, and increased to 142 bpm at peak exercise, which was 88 % ofthe predicted maximum heart rate. The resting blood pressure was 109 / 88and 131 / 71 at peak exercise, demonstrating a normal response toexercise. Exercise was terminated due to shortness of breath. ECG: NSR. Normal tracing. No ischemic ST segment changes developedduring treadmill exercise. There were no arrhythmias. Nuclear Imaging Protocol: Myocardial perfusion imaging was performed at rest approximately 60minutes following the intravenous injection of 10 mCi TC99m tetrofosmin. Atpeak exercise, the patient was injected intravenously with 41 mCi TC99m tetrofosmin and exercise was continued for 2 minutes. Gatedpost-stress tomographic imaging was performed approximately 30 minutes later insame manner. SPECT reconstruction was performed in the short, verticallong and horizontal long axis views in both rest and stress image sets. Findings: There is a moderate size, moderate intensity perfusion defect inthe lateral segments on stress imaging. This defect is unchanged onrest imaging. Gated SPECT examination reveals a dilated left ventricle.There is lateral hypokinesis. LVEF 49 %. Impression: 1. Abnormal myocardial perfusion study. Moderate size, moderateintensity, fixed perfusion defect in the lateral segments suggesting a regionof myocardial infarction. There is no ischemia. 2. Abnormal gated SPECT examination. Dilated left ventricle.Lateral hypokinesis. LVEF 49 %. 3. No ischemic ST segment changes developed during treadmillexercise. 4. Good exercise capacity. 5. The technical quality of the study is good. 6. Prior study in 2006 reported a partially reversibleinferolateral defect, LVEF 48 %. Recommendations: Clinical correlation . Dictated by: MITCHELL WRIGHT 09/24/2007 18:16 Electronically signed by: MITCHELL WRIGHT 09/24/2007 18:25 Rosanne Santana MD ND ORDERABLES INTERFACE SYSTEM Refer to clinic/hospital department documented in this encounter Visit Diagnoses Diagnosis Coronary atherosclerosis of [place] coronary artery documented in this encounter Care Teams Road Hogger Operator Relationship Specialty Start Date End Date Rosanne Santana MD [address] [place] [address] PCP - General 10/24/03 documented as of this encounter
--- OUTSIDE RECORDS SUMMARY | 2024-04-12 11:40 | XMS_ITS | Encounter Summary ---
Author Organization [employer] Address [address] [place] [address] Care Team Providers Care Wine Bottle Inspector Name Role Phone Rosanne Santana MD Primary Care Provider [phone] Encounter Details Date Type Department Care Team (Late st Contact Info) Description 10/23/[address] [facility] [address] [place] [address] Hudson Lindsay MD NO ADDRESS ON FILE [...] on filedocumented in this encounter Care Teams Wine Bottle Inspector Relationship Specialty Start Date End Date Rosanne Santana MD [address] [place] [address] [place] [address] PCP - General 10/24/03 documented as of this encounter
--- OUTSIDE RECORDS SUMMARY | 2024-04-12 11:40 | XMS_ITS | Encounter Summary ---
Author Organization [employer] Address [address] [place] [address] Care Team Providers Care Chief Of Internal Medicine Name Role Phone Rosanne Santana MD Primary Care Provider [phone] Encounter Details Date Type Department Care Team (Late st Contact Info) Description 10/23/[address] [facility] [address] [place] [address] Kingsley Reyna MD [address] [address] [address] [place] [id number] Social History Tobacco Use Types Packs/Day Years Used Date Smoking Tobacco: Never Assessed Sex and Gender Information Value Date Recorded Sex Assigned at Not on file Gender Identity Not on file Sexual Orientation Not on file documented as of this encounter Plan of Treatment Not on file documented as of this encounter Visit Diagnoses Not on filedocumented in this encounter Care Teams Chief Of Internal Medicine Relationship Specialty Start Date End Date Rosanne Santana MD [address] [place] [address] [address] [place] [address] PCP - General 10/24/03 documented as of this encounter
--- OUTSIDE RECORDS SUMMARY | 2024-04-12 11:40 | XMS_ITS | Encounter Summary ---
Author Organization [facility] Address [address] [place] [address] Care Team Providers Care Financial Engineer Name Role Phone Rosanne Santana MD Primary Care Provider [phone] Encounter Details Date Type Department Care Team (Latest Contact Info) Description 06/25/2007 Orders Only HIS CONVERSION Conversion, History Social History Tobacco Use Types Packs/Day Years Used Date Smoking Tobacco: Never Assessed Sex and Gender Information Value Date Recorded Sex Assigned at Not on file Gender Identity Not on file Sexual Orientation Not on file documented as of this encounter Progress Notes * Conversion, History - 09/02/2008 3:[address] [place] [address] cc: MD Rosanne Jacobo MD INDICATIONS Chest pain. HISTORY OF PRESENT ILLNESS Mr. Aranda is a very pleasant 57-year-old man who has a history of coronary artery disease. Dr. Santana has been following him for several years. I have stented his left anterior descending and his circumflex obtuse marginal in the past. He has been followed without any issues for a while now. He carries a history of coronary artery disease, and apparently his last catheterization was last year, approximately in May, when he was found to have widely patent stents. Since then he has been doing well, and then got back to work a couple of weeks ago. However, he states that over the last 3 months he has been feeling very fatigued. He states that yesterday he was doing some work and developed severe shortness of breath and some angina. He states that the chest pain is an anterior chest pressure sensation. He then went to sleep last night, and awoke at 12 o'clock at night with severe chest discomfort, nausea, vomiting, and diaphoresis. He states that he went to the emergency room at [facility], was given sublingual nitroglycerin, and had significant improvement in his symptoms. Currently he is still having some chest discomfort. He does not call it a pain. PAST MEDICAL HISTORY As above including stents in his left anterior descending and his obtuse marginal coronary artery. HOME MEDICATIONS 1. Aspirin 81 mg a day. 2. Plavix 75 mg a day. 3. Lopressor 50 mg b.i.d. 4. Simvastatin 40 mg a day. ALLERGIES NO KNOWN ALLERGIES. SOCIAL HISTORY He denies any alcohol or tobacco abuse. FAMILY HISTORY Noncontributory to the present illness. REVIEW OF SYSTEMS Review of systems is negative for any fevers, chills, cough, hemoptysis, hematemesis, hematochezia, hematuria, dysuria, lower extremity edema, arthralgias, heat or cold intolerance, or unilateral weakness. PHYSICAL EXAMINATION GENERAL: He is a well-developed man in no acute distress. VITAL SIGNS: Blood pressure is 110/70, heart rate is 62. He is afebrile. Satting at 98% on room air. HEENT: Within normal limits from a cardiovascular perspective. NECK: Neck is supple without jugular venous distention. No adenopathy. Carotids 2+, no bruits. LUNGS: The lungs are clear to auscultation and percussion bilateral. HEART: Normal rate, regular rhythm. No murmurs, gallops, or rubs are heard. ABDOMEN: Abdomen is soft, bowel sounds are present. : Grossly normal. EXTREMITIES: Full ROM, nontender. INTEGUMENTARY: No clubbing, cyanosis, or edema. NEUROLOGIC: Alert and oriented x3. PSYCHIATRIC: Appropriate. LABORATORIES His CBC and his BMP are unremarkable. His troponins are negative according to the outside hospital. His EKG shows sinus rhythm. No ST or T-wave abnormalities are seen. ASSESSMENT 1. Chest pain. 2. Coronary artery disease. RECOMMENDATIONS The patient's chest discomfort is very concerning, especially since he had it at rest with diaphoresis, and it woke him from sleep. While he does not have any glaring abnormality on the EKG, we know that he does have significant coronary artery disease. In addition, this pain actually got better with nitroglycerin, so I am even more concerned. I would like to take him directly for heart catheterization this morning. He did receive Lovenox at some point last night, and I believe it was at 2 in the morning, so I think that he will need anticoagulants if he does need a stent placed. Thanks for allowing me to participate in his care. MRR:ISRAEL Dictated by: Jono Scherer MD Jono Scherer MD Result Type: HISTORY AND PHYSICAL Result Date: June 25, 2007 12:05 PM Result Status: UNREVIEWED documented in this encounter Plan of Treatment Not on file documented as of this encounter Visit Diagnoses Not on filedocumented in this encounter Care Teams Financial Engineer Relationship Specialty Start Date End Date Rosanne Santana MD [address] [facility] [place] [address] PCP - General 10/24/03 documented as of this encounter
--- OUTSIDE RECORDS SUMMARY | 2024-04-12 11:40 | XMS_ITS | Encounter Summary ---
Author Organization [employer] Address [address] [place] [address] Care Team Providers Care Metal Fabricator Welder Name Role Phone Rosanne Santana MD Primary Care Provider [phone] Encounter Details Date Type Department Care Team (Latest Contact Info) Description 02/13/2006 Outpatient Historical [facility] Rosanne Santana MD [address] [facility] [address] [place] [address] Cor Athrscl-Uns Vessel (Primary Dx) Social History Tobacco Use Types Packs/Day Years Used Date Smoking Tobacco: Never Assessed Sex and Gender Information Value Date Recorded Sex Assigned at Not on file Gender Identity Not on file Sexual Orientation Not on file documented as of this encounter Plan of Treatment Not on file documented as of this encounter Visit Diagnoses Diagnosis Coronary atherosclerosis of unspecified type of vessel, [place] or graft- Primary documented in this encounter Care Teams Metal Fabricator Welder Relationship Specialty Start Date End Date Rosanne Santana MD [address] [place] [address] PCP - General 10/24/03 documented as of this encounter
--- OUTSIDE RECORDS SUMMARY | 2024-04-12 11:41 | XMS_ITS | Encounter Summary ---
Author Organization [employer] Address [address] [place] [address] Care Team Providers Care Heat And Vent Aircraft Mechanic Name Role Phone Rosanne Santana MD Primary Care Provider [phone] Encounter Details Date Type Department Care Team (Late st Contact Info) Description 01/10/2000 Outpatient Historical [facility] STAlicia Peter MD NO ADDRESS ON FILE Er, Authorized P NO ADDRESS ON FILE Backache, unspecified (Primary Dx) Social History Tobacco Use Types Packs/Day Years Used Date Smoking Tobacco: Never Assessed Sex and Gender Information Value Date Recorded Sex Assigned at Not on file Gender Identity Not on file Sexual Orientation Not on file documented as of this encounter Plan of Treatment Not on file documented as of this encounter Visit Diagnoses Diagnosis Backache, unspecified- Primary documented in this encounter Care Teams Heat And Vent Aircraft Mechanic Relationship Specialty Start Date End Date Rosanne Santana MD [address] [place] [address] [place] [phone] PCP - General 10/24/03 documented as of this encounter
--- OUTSIDE RECORDS SUMMARY | 2024-04-12 11:41 | XMS_ITS | Encounter Summary ---
Author Organization [employer] Address [address] [place] [address] Care Team Providers Care Flying Instructor Name Role Phone Rosanne Santana MD Primary Care Provider [phone] Encounter Details Date Type Department Care Team (Late st Contact Info) Description 12/02/2001 [facility] [address] [place] [phone] Rosanne Santana MD [address] [place] [address] [place] [address] Social History Tobacco Use Types [...] on filedocumented in this encounter Care Teams Flying Instructor Relationship Specialty Start Date End Date Rosanne Santana MD [address] [place] [address] [place] [address] PCP - General 10/24/03 documented as of this encounter
--- OUTSIDE RECORDS SUMMARY | 2024-04-12 11:41 | XMS_ITS | Encounter Summary ---
Author Organization [employer] Address [address] [place] [address] Care Team Providers Care Laboratory Administrative Director Name Role Phone Rosanne Santana MD Primary Care Provider [phone] Encounter Details Date Type Department Care Team (Latest Contact Info) Description 01/17/2003 Outpatient [facility] for [employer] [facility] [address] [place] [address] & [place] [address] Rosanne Santana MD [address] [place] [address] PURE HYPERCHOLESTEROLEM (Primary Dx) Social History Tobacco Use Types Packs/Day Years Used Date Smoking Tobacco: Never Assessed Sex and Gender Information Value Date Recorded Sex Assigned at Not on file Gender Identity Not on file Sexual Orientation Not on file documented as of this encounter Plan of Treatment Not on file documented as of this encounter Visit Diagnoses Diagnosis Pure hypercholesterolemia- Primary documented in this encounter Care Teams Laboratory Administrative Director Relationship Specialty Start Date End Date Rosanne Santana MD [address] [place] [address] PCP - General 10/24/03 documented as of this encounter
--- OUTSIDE RECORDS SUMMARY | 2024-04-12 11:41 | XMS_ITS | Encounter Summary ---
Author Organization [employer] Address [address] [place] [address] Care Team Providers Care Blending Operator Name Role Phone Rosanne Santana MD Primary Care Provider [phone] Encounter Details Date Type Department Care Team (Late st Contact Info) Description 05/03/1998 Outpatient Historical [facility] Eliezer Goddard, [address] [facility] [address] [place] [address] Er, Authorized P NO ADDRESS ON FILE Other specified sites of sprains and strains (Primary Dx) Social History Tobacco Use Types Packs/Day Years Used Date Smoking Tobacco: Never Assessed Sex and Gender Information Value Date Recorded Sex Assigned at Not on file Gender Identity Not on file Sexual Orientation Not on file documented as of this encounter Plan of Treatment Not on file documented as of this encounter Visit Diagnoses Diagnosis Other specified sites of sprains and strains- Primary documented in this encounter Care Teams Blending Operator Relationship Specialty Start Date End Date Rosanne Santana MD [address] [place] [address] [address] [place] [address] PCP - General 10/24/03 documented as of this encounter
--- OUTSIDE RECORDS SUMMARY | 2024-04-12 11:41 | XMS_ITS | Encounter Summary ---
Author Organization [employer] Address [address] [place] [address] Care Team Providers Care Test Consultant Name Role Phone Rosanne Santana MD Primary Care Provider [phone] Encounter Details Date Type Department Care Team (Late st Contact Info) Description 12/02/2001 [facility] [address] [place] [phone] Rosanne Santana MD [address] [place] [address] [place] [address] Social History Tobacco Use Types [...] on filedocumented in this encounter Care Teams Test Consultant Relationship Specialty Start Date End Date Rosanne Santana MD [address] [place] [address] [place] [address] PCP - General 10/24/03 documented as of this encounter
--- OUTSIDE RECORDS SUMMARY | 2024-04-12 11:41 | XMS_ITS | Encounter Summary ---
Author Organization [facility] Address [address] [place] [address] Care Team Providers Care Gauge Machine Operator Name Role Phone Rosanne Santana MD Primary Care Provider [phone] Encounter Details Date Type Department Care Team (Late st Contact Info) Description 01/17/2003 Outpatient [facility] [address] [place] [address] & [place] [address] Social History Tobacco Use Types Packs/Day Years Used Date Smoking Tobacco: Never Assessed Sex and Gender Information Value Date Recorded Sex Assigned at Not on file Gender Identity Not on file Sexual Orientation Not on file documented as of this encounter Plan of Treatment Not on file documented as of this encounter Visit Diagnoses Not on filedocumented in this encounter Care Teams Gauge Machine Operator Relationship Specialty Start Date End Date Rosanne Santana MD [address] [place] [address] [place] [address] PCP - General 10/24/03 documented as of this encounter
--- OUTSIDE RECORDS SUMMARY | 2024-04-12 11:41 | XMS_ITS | Encounter Summary ---
Author Organization [employer] Address [address] [place] [address] Care Team Providers Care Regional Owner Operator Truck Driver Name Role Phone Rosanne Santana MD Primary Care Provider [phone] Encounter Details Date Type Department Care Team (Late st Contact Info) Description 12/02/2001 [facility] [address] [place] [address] Rosanne Santana MD [address] [place] [address] [place] [address] Social History Tobacco Use Types [...] on filedocumented in this encounter Care Teams Regional Owner Operator Truck Driver Relationship Specialty Start Date End Date Rosanne Santana MD [address] [place] [address] [place] [address] PCP - General 10/24/03 documented as of this encounter
--- OUTSIDE RECORDS SUMMARY | 2024-04-12 11:41 | XMS_ITS | Encounter Summary ---
Author Organization [facility] Address [address] [place] [address] Care Team Providers Care Detective Supervisor Name Role Phone Rosanne Santana MD Primary Care Provider [phone] Encounter Details Date Type Department Care Team (Latest Contact Info) Description 12/03/2001 Outpatient Historical [facility] Rosanne Sanchez MD [address] [facility] [address] [place] [address] CORON ATHEROSCL [place] CORON VESSEL (Primary Dx) Social History Tobacco Use Types Packs/Day Years Used Date Smoking Tobacco: Never Assessed Sex and Gender Information Value Date Recorded Sex Assigned at Not on file Gender Identity Not on file Sexual Orientation Not on file documented as of this encounter Plan of Treatment Not on file documented as of this encounter Visit Diagnoses Diagnosis Coronary atherosclerosis of [place] coronary artery- Primary documented in this encounter Care Teams Detective Supervisor Relationship Specialty Start Date End Date Rosanne Santana MD [address] [facility] [address] [place] [address] PCP - General 10/24/03 documented as of this encounter
--- OUTSIDE RECORDS SUMMARY | 2024-04-12 11:41 | XMS_ITS | Encounter Summary ---
Author Organization [employer] (Former[facility] [employer] Address [address] [place] [address] Care Team Providers Care Food Production Associate Name Role Phone Rosanne Santana MD Primary Care Provider [phone] Encounter Details Date Type Department Care Team (Latest Contact Info) Description 11/08/2003 Inpatient Historical HIS CARD OPTOMETRIC ASSISTANT Rosanne Santana MD [address] [place] [address] CORON ATHEROSCL AKHIOK CORON VESSEL (Primary Dx) Social History Tobacco Use Types Packs/Day Years Used Date Smoking Tobacco: Never Assessed Sex and Gender Information Value Date Recorded Sex Assigned at Not on file Gender Identity Not on file Sexual Orientation Not on file documented as of this encounter Plan of Treatment Not on file documented as of this encounter Visit Diagnoses Diagnosis Coronary atherosclerosis of curyung coronary artery- Primary documented in this encounter Care Teams Food Production Associate Relationship Specialty Start Date End Date Rosanne Santana MD [address] [place] [address] PCP - General 10/24/03 documented as of this encounter
--- OUTSIDE RECORDS SUMMARY | 2024-04-12 11:41 | XMS_ITS | Encounter Summary ---
Author Organization [facility] Address [address] [place] [address] Care Team Providers Care Die Baker Name Role Phone Rosanne Santana MD Primary Care Provider [phone] Encounter Details Date Type Department Care Team (Latest Contact Info) Description 01/17/2004 Outpatient [facility] [address] [place] [address] & [place] [address] Rosanne Santana MD [address] [place] [address] PURE HYPERCHOLESTEROLEM (Primary Dx) Social [...] Primary documented in this encounter Care Teams Die Baker Relationship Specialty Start Date End Date Rosanne Santana MD [address] [place] [address] PCP - General 10/24/03 documented as of this encounter
--- OUTSIDE RECORDS SUMMARY | 2024-04-12 11:41 | XMS_ITS | Encounter Summary ---
Author Organization [employer] Address [address] [place] [address] Care Team Providers Care Hand Shaper Name Role Phone Rosanne Santana MD Primary Care Provider [phone] Encounter Details Date Type Department Care Team (Latest Contact Info) Description 12/02/2001 Outpatient Historical HIS CARDIOPULMONARY Rosanne Santana MD [address] [facility] [place] [address] OTHER MALAISE AND FATIGUE (Primary Dx) Social History Tobacco Use Types Packs/Day Years Used Date Smoking Tobacco: Never Assessed Sex and Gender Information Value Date Recorded Sex Assigned at Not on file Gender Identity Not on file Sexual Orientation Not on file documented as of this encounter Plan of Treatment Not on file documented as of this encounter Visit Diagnoses Diagnosis Other malaise and fatigue- Primary documented in this encounter Care Teams Hand Shaper Relationship Specialty Start Date End Date Rosanne Santana MD [address] [facility] [place] [address] PCP - General 10/24/03 documented as of this encounter
--- OUTSIDE RECORDS SUMMARY | 2024-04-12 11:41 | XMS_ITS | Encounter Summary ---
Author Organization [facility] Address [address] [place] [address] Care Team Providers Care Mold Yard Supervisor Name Role Phone Rosanne Santana MD Primary Care Provider [phone] Encounter Details Date Type Department Care Team (Latest Contact Info) Description 10/22/2004 Inpatient Historical HIS PATIENT IN A BED Jono Scherer MD [address] [place] [address] POST WALL FIRST EPISODE CARE (Primary Dx) Social History Tobacco Use Types [...] Associated Diagnosis Comments CBC WITH DIFFERENTIAL Routine 10/25/2004 6:44 AM CDT CBC WITH DIFFERENTIAL Routine 10/25/2004 6:44 AM CDT MAGNESIUM LEVEL Routine 10/25/2004 6:44 AM CDT BASIC METABOLIC PANEL Routine 10/25/2004 6:44 AM CDT CK TOTAL, RELATIVE INDEX Routine 10/24/2004 7:01 AM CDT CKMB W/REFLEX CK Routine 10/24/2004 7:01 AM CDT CBC WITH DIFFERENTIAL Routine 10/24/2004 4:42 AM CDT CBC WITH DIFFERENTIAL Routine 10/24/2004 4:42 AM CDT MAGNESIUM LEVEL Routine 10/24/2004 4:42 AM CDT BASIC METABOLIC PANEL Routine 10/24/2004 4:42 AM CDT CK TOTAL, RELATIVE INDEX Routine 10/23/2004 1:45 PM CDT CKMB W/REFLEX CK Routine 10/23/2004 1:45 PM CDT TROPONIN (W/REFLEX CKMB/CK) Routine 10/23/2004 1:45 PM CDT CBC WITH DIFFERENTIAL Routine 10/23/2004 1:45 PM CDT CBC WITH DIFFERENTIAL Routine 10/23/2004 1:45 PM CDT MAGNESIUM LEVEL Routine 10/23/2004 1:45 PM CDT BASIC METABOLIC PANEL Routine 10/23/2004 1:45 PM CDT CK TOTAL, RELATIVE INDEX Routine 10/23/2004 11:27 AM CDT CKMB W/REFLEX CK Routine 10/23/2004 11:2 7 AM CDT TROPONIN (W/REFLEX CKMB/CK) Routine 10/23/2004 11:27 AM CDT CBC WITH DIFFERENTIAL Routine 10/23/2004 11:27 AM CDT CBC WITH DIFFERENTIAL Routine 10/23/2004 11:27 AM CDT BASIC METABOLIC PANEL Routine 10/23/2004 11:27 AM CDT CK TOTAL, RELATIVE INDEX Routine 10/23/2004 2:44 AM CDT CKMB W/REFLEX CK Routine 10/23/2004 2:44 AM CDT TROPONIN (W/REFLEX CKMB/CK) Routine 10/23/2004 2:44 AM CDT CBC WITH DIFFERENTIAL Routine 10/23/2004 2:44 AM CDT CBC WITH DIFFERENTIAL Routine 10/23/2004 2:44 AM CDT MAGNESIUM LEVEL Routine 10/23/2004 2:44 AM CDT LIPID PANEL Routine 10/23/2004 2:44 AM CDT COMPREHENSIVE METABOLIC PANEL Routine 10/23/2004 2:44 AM CDT documented in this encounter Results * (ABNORMAL) CBC WITH DIFFERENTIAL (10/25/2004 6:44 AM CDT) NEUTROPHILS 60 45 - 70 % INTERFAC E SYSTEM LYMPHOCYTES 22 16 - 45 % INTERFAC E SYSTEM MONOCYTES 15(H) 3 - 13 % INTERFACE SYSTEM EOSINOPHILS 3 0 - 7 % INTERFAC E SYSTEM BASOPHILS 0 0 - 2 % INTERFACE SYSTEM NEUTROPHIL ABSOLUTE 4.60 1.90 - 7.00 K/uL INTERFACE SYSTEM LYMPHOCYTE ABSOLUTE 1.69 0.70 - 4.50 K/uL INTERFACE SYSTEM MONOCYTE ABSOLUTE 1.18 0.10 - 1.30 K/uL INTERFACE SYSTEM EOSINOPHIL ABSOLUTE 0.23 0.00 - 0.70 K/uL INTERFACE SYSTEM BASOPHILS ABSOLUTE 0.02 0.00 - 0.20 K/uL INTERFACE SYSTEM 10/25/2004 6:44 AM CDT Rosanne Santana MD HEMATOLOGY ORDERABLE S INTERFACE SYSTEM Refer to clinic/hospital department * (ABNORMAL) CBC WITH DIFFERENTIAL (10/25/2004 6:44 AM CDT) WBC 7.7 4.0 - 9.8 K/uL INTERFACE SYSTEM RBC 4.29(L) 4.50 - 5.40 M/uL INTERFACE SYSTEM HEMOGLOBIN 13.1(L) 13.6 - 16.5 g/dL INTERFACE SYSTEM HEMATOCRIT 39.6(L) 40.0 - 48.0 % INTERFACE SYSTEM MCV 92.3 82.0 - 99.0 fL INTERFACE SYSTEM MCH 30.5 27.2 - 32.6 pg INTERFACE SYSTEM MCHC 33.1 31.5 - 35.5 % INTERFACE SYSTEM RDW 13.5 11.5 - 14.5 % INTERFACE SYSTEM RDW-STDEV 45.3 37.1 - 48.7 fL INTERFACE SYSTEM PLATELETS 154 140 - 350 K/uL INTERFACE SYSTEM MPV 9.2(L) 9.3 - 12.4 fL INTERFACE SYSTEM 10/25/2004 6:44 AM CDT Rosanne Santana MD HEMATOLOGY ORDERABLE S Performing Organization Address [facility] Phone Number INTERFACE SYSTEM Refer to clinic/hospital department * MAGNESIUM LEVEL (10/25/2004 6:44 AM CDT) MAGNESIUM 1.9 1.5 - 2.5 mg/dL INTERFACE SYSTEM 10/25/2004 6:44 AM CDT Rosanne Santana MD CHEMISTRY ORDERABLES Performing Organization Address [facility] Phone Number INTERFACE SYSTEM Refer to clinic/hospital department * (ABNORMAL) BASIC METABOLIC PANEL (10/25/2004 6:44 AM CDT) GLUCOSE 109 65 - 109 mg/dL INTERFACE SYSTEM CREATININE 0.9 0.5 - 1.3 mg/dL INTERFACE SYSTEM CALCIUM 8.6 8.6 - 10.2 mg/dL INTERFACE SYSTEM BUN 12 6 - 20 mg/dL INTERFACE SYSTEM SODIUM 140 135 - 145 mmol/L INTERFACE SYSTEM POTASSIUM 3.9 3.5 - 4.9 mmol/L INTERFACE SYSTEM CHLORIDE 104 96 - 108 mmol/L INTERFACE SYSTEM CO2 31(H) 22 - 30 mmol/L INTERFACE SYSTEM 10/25/2004 6:44 AM CDT Rosanne Santana MD CHEMISTRY ORDERABLES Performing Organization Address [facility] Phone Number INTERFACE SYSTEM Refer to clinic/hospital department * (ABNORMAL) CK TOTAL, RELATIVE INDEX (10/24/2004 7:01 AM CDT) CARDIAC RELATIVE INDEX 4.1(H) <=4.0 INTERFACE SYSTEM CK 796(H) 10 - 170 U/L INTERFACE SYSTEM 10/24/2004 7:01 AM CDT Kan Atkinson MD CHEMISTRY ORDERABLES Performing Organization Address [facility] Phone Number INTERFACE SYSTEM Refer to clinic/hospital department * (ABNORMAL) CKMB W/REFLEX CK (10/24/2004 7:01 AM CDT) CKMB 33.0(AA) <=6.7 ng/mL INTERFACE SYSTEM Comment:Persistent abnormal result CKMB INTERP See Below INTERFAC E SYSTEM Comment:Elevated CKMB,Consis tent with Myocardial Injury 10/24/2004 7:01 AM CDT Kan Atkinson MD CHEMISTRY ORDERABLES Performing Organization Address [facility] Phone Number INTERFACE SYSTEM Refer to clinic/hospital department * (ABNORMAL) CBC WITH DIFFERENTIAL (10/24/2004 4:42 AM CDT) NEUTROPHILS 71(H) 45 - 70 % INTERFAC E SYSTEM LYMPHOCYTES 14(L) 16 - 45 % INTERFAC E SYSTEM MONOCYTES 13 3 - 13 % INTERFACE SYSTEM EOSINOPHILS 2 0 - 7 % INTERFAC E SYSTEM BASOPHILS 0 0 - 2 % INTERFACE SYSTEM NEUTROPHIL ABSOLUTE 6.16 1.90 - 7.00 K/uL INTERFACE SYSTEM LYMPHOCYTE ABSOLUTE 1.19 0.70 - 4.50 K/uL INTERFACE SYSTEM MONOCYTE ABSOLUTE 1.14 0.10 - 1.30 K/uL INTERFACE SYSTEM EOSINOPHIL ABSOLUTE 0.16 0.00 - 0.70 K/uL INTERFACE SYSTEM BASOPHILS ABSOLUTE 0.01 0.00 - 0.20 K/uL INTERFACE SYSTEM 10/24/2004 4:42 AM CDT Alba Huff HEMATOLOGY ORDERABLE S Performing Organization Address [facility] de Phone Number INTERFACE SYSTEM Refer to clinic/hospital department * (ABNORMAL) CBC WITH DIFFERENTIAL (10/24/2004 4:42 AM CDT) WBC 8.7 4.0 - 9.8 K/uL INTERFACE SYSTEM RBC 4.15(L) 4.50 - 5.40 M/uL INTERFACE SYSTEM HEMOGLOBIN 13.1(L) 13.6 - 16.5 g/dL INTERFACE SYSTEM HEMATOCRIT 37.9(L) 40.0 - 48.0 % INTERFACE SYSTEM MCV 91.3 82.0 - 99.0 fL INTERFACE SYSTEM MCH 31.6 27.2 - 32.6 pg INTERFACE SYSTEM MCHC 34.6 31.5 - 35.5 % INTERFACE SYSTEM RDW 13.8 11.5 - 14.5 % INTERFACE SYSTEM RDW-STDEV 45.7 37.1 - 48.7 fL INTERFACE SYSTEM PLATELETS 136(L) 140 - 350 K/uL INTERFACE SYSTEM MPV 9.4 9.3 - 12.4 fL INTERFACE SYSTEM 10/24/2004 4:42 AM CDT Alba Huff HEMATOLOGY ORDERABLE S Performing Organization Address [facility] Co de Phone Number INTERFACE SYSTEM Refer to clinic/hospital department * MAGNESIUM LEVEL (10/24/2004 4:42 AM CDT) MAGNESIUM 1.9 1.5 - 2.5 mg/dL INTERFACE SYSTEM 10/24/2004 4:42 AM CDT Alba Huff CHEMISTRY ORDERABLES Performing Organization Address [facility] Co de Phone Number INTERFACE SYSTEM Refer to clinic/hospital department * (ABNORMAL) BASIC METABOLIC PANEL (10/24/2004 4:42 AM CDT) GLUCOSE 103 65 - 109 mg/dL INTERFACE SYSTEM CREATININE 0.8 0.5 - 1.3 mg/dL INTERFACE SYSTEM CALCIUM 8.4(L) 8.6 - 10.2 mg/dL INTERFACE SYSTEM BUN 11 6 - 20 mg/dL INTERFACE SYSTEM SODIUM 140 135 - 145 mmol/L INTERFACE SYSTEM POTASSIUM 4.1 3.5 - 4.9 mmol/L INTERFACE SYSTEM CHLORIDE 108 96 - 108 mmol/L INTERFACE SYSTEM CO2 26 22 - 30 mmol/L INTERFACE SYSTEM 10/24/2004 4:42 AM CDT Alba Huff CHEMISTRY ORDERABLES Performing Organization Address [facility] Phone Number INTERFACE SYSTEM Refer to clinic/hospital department * (ABNORMAL) CK TOTAL, RELATIVE INDEX (10/23/2004 1:45 PM CDT) CARDIAC RELATIVE INDEX 8.0(H) <=4.0 INTERFACE SYSTEM CK 1,462(H) 10 - 170 U/L INTERFACE SYSTEM 10/23/2004 1:45 PM CDT [employer] CHEMISTRY ORDERABLES Performing Organization Address [facility] Phone Number INTERFACE SYSTEM Refer to clinic/hospital department * (ABNORMAL) CKMB W/REFLEX CK (10/23/2004 1:45 PM CDT) CKMB 117.0(AA) <=6.7 ng/mL INTERFACE SYSTEM Comment:Persistent abnormal result CKMB INTERP See Below INTERFAC E SYSTEM Comment:Elevated CKMB,Consis tent with Myocardial Injury 10/23/2004 1:45 PM CDT [employer] CHEMISTRY ORDERABLES Performing Organization Address [facility] Phone Number INTERFACE SYSTEM Refer to clinic/hospital department * (ABNORMAL) CBC WITH DIFFERENTIAL (10/23/2004 1:45 PM CDT) NEUTROPHILS 77(H) 45 - 70 % INTERFAC E SYSTEM LYMPHOCYTES 12(L) 16 - 45 % INTERFAC E SYSTEM MONOCYTES 10 3 - 13 % INTERFACE SYSTEM EOSINOPHILS 1 0 - 7 % INTERFAC E SYSTEM BASOPHILS 0 0 - 2 % INTERFACE SYSTEM NEUTROPHIL ABSOLUTE 9.52(H) 1.90 - 7.00 K/uL INTERFACE SYSTEM LYMPHOCYTE ABSOLUTE 1.48 0.70 - 4.50 K/uL INTERFACE SYSTEM MONOCYTE ABSOLUTE 1.20 0.10 - 1.30 K/uL INTERFACE SYSTEM EOSINOPHIL ABSOLUTE 0.08 0.00 - 0.70 K/uL INTERFACE SYSTEM BASOPHILS ABSOLUTE 0.01 0.00 - 0.20 K/uL INTERFACE SYSTEM 10/23/2004 1:45 PM CDT Alba Huff HEMATOLOGY ORDERABLE S Performing Organization Address [facility] Co de Phone Number INTERFACE SYSTEM Refer to clinic/hospital department * (ABNORMAL) CBC WITH DIFFERENTIAL (10/23/2004 1:45 PM CDT) WBC 12.3(H) 4.0 - 9.8 K/uL INTERFACE SYSTEM RBC 4.08(L) 4.50 - 5.40 M/uL INTERFACE SYSTEM HEMOGLOBIN 12.5(L) 13.6 - 16.5 g/dL INTERFACE SYSTEM HEMATOCRIT 37.2(L) 40.0 - 48.0 % INTERFACE SYSTEM MCV 91.2 82.0 - 99.0 fL INTERFACE SYSTEM MCH 30.6 27.2 - 32.6 pg INTERFACE SYSTEM MCHC 33.6 31.5 - 35.5 % INTERFACE SYSTEM RDW 13.7 11.5 - 14.5 % INTERFACE SYSTEM RDW-STDEV 45.1 37.1 - 48.7 fL INTERFACE SYSTEM PLATELETS 167 140 - 350 K/uL INTERFACE SYSTEM MPV 9.2(L) 9.3 - 12.4 fL INTERFACE SYSTEM 10/23/2004 1:45 PM CDT Alba Huff HEMATOLOGY ORDERABLE S Performing Organization Address [facility] Phone Number INTERFACE SYSTEM Refer to clinic/hospital department * (ABNORMAL) BASIC METABOLIC PANEL (10/23/2004 1:45 PM CDT) GLUCOSE 116(H) 65 - 109 mg/dL INTERFACE SYSTEM CREATININE 1.0 0.5 - 1.3 mg/dL INTERFACE SYSTEM CALCIUM 8.2(L) 8.6 - 10.2 mg/dL INTERFACE SYSTEM BUN 12 6 - 20 mg/dL INTERFACE SYSTEM SODIUM 140 135 - 145 mmol/L INTERFACE SYSTEM POTASSIUM 4.2 3.5 - 4.9 mmol/L INTERFACE SYSTEM CHLORIDE 107 96 - 108 mmol/L INTERFACE SYSTEM CO2 28 22 - 30 mmol/L INTERFACE SYSTEM 10/23/2004 1:45 PM CDT Alba Huff CHEMISTRY ORDERABLES Performing Organization Address [facility] Phone Number INTERFACE SYSTEM Refer to clinic/hospital department * MAGNESIUM LEVEL (10/23/2004 1:45 PM CDT) Pathologist [facility] MAGNESIUM 2.2 1.5 - 2.5 mg/dL INTERFACE SYSTEM 10/23/2004 1:45 PM CDT Alba Huff CHEMISTRY ORDERABLES Performing Organization Address [facility] Phone Number INTERFACE SYSTEM Refer to clinic/hospital department * (ABNORMAL) TROPONIN (W/REFLEX CKMB/CK) (10/23/2004 1:45 PM CDT) [facility] TROPONIN T 5.78(AA) <=0.03 ng/mL INTERFACE SYSTEM Comment:Persistent abnormal result TROPONIN T INTERP See Below INTERFACE SYSTEM Comment:Elevated Troponin-T, Consistent with Myocardial Injury 10/23/2004 1:45 PM CDT Alba Huff CHEMISTRY ORDERABLES Performing Organization Address [facility] Phone Number INTERFACE SYSTEM Refer to clinic/hospital department * (ABNORMAL) CBC WITH DIFFERENTIAL (10/23/2004 11:27 AM CDT) [facility] NEUTROPHILS 77(H) 45 - 70 % INTERFAC E SYSTEM LYMPHOCYTES 11(L) 16 - 45 % INTERFAC E SYSTEM MONOCYTES 11 3 - 13 % INTERFACE SYSTEM EOSINOPHILS 1 0 - 7 % INTERFAC E SYSTEM BASOPHILS 0 0 - 2 % INTERFACE SYSTEM NEUTROPHIL ABSOLUTE 6.44 1.90 - 7.00 K/uL INTERFACE SYSTEM LYMPHOCYTE ABSOLUTE 0.92 0.70 - 4.50 K/uL INTERFACE SYSTEM MONOCYTE ABSOLUTE 0.95 0.10 - 1.30 K/uL INTERFACE SYSTEM EOSINOPHIL ABSOLUTE 0.05 0.00 - 0.70 K/uL INTERFACE SYSTEM BASOPHILS ABSOLUTE 0.00 0.00 - 0.20 K/uL INTERFACE SYSTEM 10/23/2004 11:2 7 AM CDT Jono Scherer MD HEMATOLOGY ORDERABLE S Performing Organization Address [facility]/ZIP Co de Phone Number INTERFACE SYSTEM Refer to clinic/hospital department * (ABNORMAL) CBC WITH DIFFERENTIAL (10/23/2004 11:27 AM CDT) WBC 8.4 4.0 - 9.8 K/uL INTERFACE SYSTEM RBC 2.79(L) 4.50 - 5.40 M/uL INTERFACE SYSTEM HEMOGLOBIN 8.7(L) 13.6 - 16.5 g/dL INTERFACE SYSTEM HEMATOCRIT 25.5(L) 40.0 - 48.0 % INTERFACE SYSTEM MCV 91.4 82.0 - 99.0 fL INTERFACE SYSTEM MCH 31.2 27.2 - 32.6 pg INTERFACE SYSTEM MCHC 34.1 31.5 - 35.5 % INTERFACE SYSTEM RDW 13.6 11.5 - 14.5 % INTERFACE SYSTEM RDW-STDEV 45.1 37.1 - 48.7 fL INTERFACE SYSTEM PLATELETS 111(L) 140 - 350 K/uL INTERFACE SYSTEM MPV 8.9(L) 9.3 - 12.4 fL INTERFACE SYSTEM 10/23/2004 11:2 7 AM CDT Jono Scherer MD HEMATOLOGY ORDERABLE S Performing Organization Address [facility] Co de Phone Number INTERFACE SYSTEM Refer to clinic/hospital department * (ABNORMAL) BASIC METABOLIC PANEL (10/23/2004 11:27 AM CDT) GLUCOSE 90 65 - 109 mg/dL INTERFACE SYSTEM CREATININE 0.5 0.5 - 1.3 mg/dL INTERFACE SYSTEM CALCIUM 5.6(AA) 8.6 - 10.2 mg/dL INTERFACE SYSTEM Comment: Results confirmed by 2nd methodology. Results called to Jose Miguel at 10/23/2004 12:43 PM and read back verified. BUN 10 6 - 20 mg/dL INTERFACE SYSTEM SODIUM 142 135 - 145 mmol/L INTERFACE SYSTEM Comment:Electrolytes checked . POTASSIUM 2.9(L) 3.5 - 4.9 mmol/L INTERFACE SYSTEM CHLORIDE 117(H) 96 - 108 mmol/L INTERFACE SYSTEM CO2 20(L) 22 - 30 mmol/L INTERFACE SYSTEM 10/23/2004 11:2 7 AM CDT Jono Scherer MD CHEMISTRY ORDERABLES Performing Organization Address [facility] Phone Number INTERFACE SYSTEM Refer to clinic/hospital department * (ABNORMAL) CK TOTAL, RELATIVE INDEX (10/23/2004 11:27 AM CDT) CARDIAC RELATIVE INDEX 8.5(H) <=4.0 INTERFACE SYSTEM CK 1,062(H) 10 - 170 U/L INTERFACE SYSTEM 10/23/2004 11:2 7 AM CDT Jono Scherer MD CHEMISTRY ORDERABLES Performing Organization Address [facility] Phone Number INTERFACE SYSTEM Refer to clinic/hospital department * (ABNORMAL) CKMB W/REFLEX CK (10/23/2004 11:27 AM CDT) CKMB 90.5(AA) <=6.7 ng/mL INTERFACE SYSTEM Comment:Persistent abnormal result CKMB INTERP See Below INTERFAC E SYSTEM Comment:Elevated CKMB,Consis tent with Myocardial Injury 10/23/2004 11:2 7 AM CDT Jono Scherer MD CHEMISTRY ORDERABLES Performing Organization Address [facility] Phone Number INTERFACE SYSTEM Refer to clinic/hospital department * (ABNORMAL) TROPONIN (W/REFLEX CKMB/CK) (10/23/2004 11:27 AM CDT) TROPONIN T 3.92(AA) <=0.03 ng/mL INTERFACE SYSTEM Comment:Persistent abnormal result TROPONIN T INTERP See Below INTERFACE SYSTEM Comment:Elevated Troponin-T, Consistent with Myocardial Injury 10/23/2004 11:2 7 AM CDT Jono Scherer MD CHEMISTRY ORDERABLES Performing Organization Address [facility] Phone Number INTERFACE SYSTEM Refer to clinic/hospital department * MAGNESIUM LEVEL (10/23/2004 2:44 AM CDT) MAGNESIUM 1.8 1.5 - 2.5 mg/dL INTERFACE SYSTEM 10/23/2004 2:44 AM CDT Jono Scherer MD CHEMISTRY ORDERABLES Performing Organization Address [facility] de Phone Number INTERFACE SYSTEM Refer to clinic/hospital department * (ABNORMAL) CK TOTAL, RELATIVE INDEX (10/23/2004 2:44 AM CDT) Pathologist [facility] CARDIAC RELATIVE INDEX 9.4(H) <=4.0 INTERFACE SYSTEM CK 1,648(H) 10 - 170 U/L INTERFACE SYSTEM 10/23/2004 2:44 AM CDT Jono Scherer MD CHEMISTRY ORDERABLES Performing Organization Address [facility] de Phone Number INTERFACE SYSTEM Refer to clinic/hospital department * (ABNORMAL) CKMB W/REFLEX CK (10/23/2004 2:44 AM CDT) Pathologist [facility] CKMB 155.5(AA) <=6.7 ng/mL INTERFACE SYSTEM Comment:Results called to elina israel at _10/23/2004 3:37 AM and read back verified. CKMB INTERP See Below INTERFAC E SYSTEM Comment:Elevated CKMB,Consis tent with Myocardial Injury. 10/23/2004 2:44 AM CDT Jono Scherer MD CHEMISTRY ORDERABLES Performing Organization Address [facility] de Phone Number INTERFACE SYSTEM Refer to clinic/hospital department * (ABNORMAL) CBC WITH DIFFERENTIAL (10/23/2004 2:44 AM CDT) Pathologist [facility] NEUTROPHILS 87(H) 45 - 70 % INTERFAC E SYSTEM LYMPHOCYTES 7(L) 16 - 45 % INTERFAC E SYSTEM MONOCYTES 6 3 - 13 % INTERFACE SYSTEM EOSINOPHILS 0 0 - 7 % INTERFAC E SYSTEM BASOPHILS 0 0 - 2 % INTERFACE SYSTEM NEUTROPHIL ABSOLUTE 12.09(H) 1.90 - 7.00 K/uL INTERFACE SYSTEM LYMPHOCYTE ABSOLUTE 0.98 0.70 - 4.50 K/uL INTERFACE SYSTEM MONOCYTE ABSOLUTE 0.77 0.10 - 1.30 K/uL INTERFACE SYSTEM EOSINOPHIL ABSOLUTE 0.02 0.00 - 0.70 K/uL INTERFACE SYSTEM BASOPHILS ABSOLUTE 0.01 0.00 - 0.20 K/uL INTERFACE SYSTEM 10/23/2004 2:44 AM CDT Jono Scherer MD HEMATOLOGY ORDERABLE S Performing Organization Address [facility] Phone Number INTERFACE SYSTEM Refer to clinic/hospital department * (ABNORMAL) CBC WITH DIFFERENTIAL (10/23/2004 2:44 AM CDT) WBC 13.9(H) 4.0 - 9.8 K/uL INTERFACE SYSTEM RBC 4.28(L) 4.50 - 5.40 M/uL INTERFACE SYSTEM HEMOGLOBIN 13.7 13.6 - 16.5 g/dL INTERFACE SYSTEM HEMATOCRIT 38.1(L) 40.0 - 48.0 % INTERFACE SYSTEM MCV 89.0 82.0 - 99.0 fL INTERFACE SYSTEM MCH 32.0 27.2 - 32.6 pg INTERFACE SYSTEM MCHC 36.0(H) 31.5 - 35.5 % INTERFACE SYSTEM RDW 13.2 11.5 - 14.5 % INTERFACE SYSTEM RDW-STDEV 42.2 37.1 - 48.7 fL INTERFACE SYSTEM PLATELETS 166 140 - 350 K/uL INTERFACE SYSTEM MPV 9.3 9.3 - 12.4 fL INTERFACE SYSTEM 10/23/2004 2:44 AM CDT Jono Scherer MD HEMATOLOGY ORDERABLE S Performing Organization Address [facility] Phone Number INTERFACE SYSTEM Refer to clinic/hospital department * (ABNORMAL) TROPONIN (W/REFLEX CKMB/CK) (10/23/2004 2:44 AM CDT) TROPONIN T 3.78(AA) <=0.03 ng/mL INTERFACE SYSTEM Comment[facility]23/2004 3:12 AM and read back verified. TROPONIN T INTERP See Below INTERFACE SYSTEM Comment:Elevated Troponin-T, Consistent with Myocardial Injury 10/23/2004 2:44 AM CDT Jono Scherer MD CHEMISTRY ORDERABLES Performing Organization Address [facility] Phone Number INTERFACE SYSTEM Refer to clinic/hospital department * (ABNORMAL) LIPID PANEL (10/23/2004 2:44 AM CDT) CHOLESTEROL 109 100 - 199 mg/dL INTERFACE SYSTEM TRIGLYCERIDE 103 10 - 149 mg/dL INTERFACE SYSTEM HDL 33(L) 40 - 59 mg/dL INTERFACE SYSTEM LDL CALCULATED 55 <=99 mg/dL INTERFACE SYSTEM CHOL/HDL RATIO 3.3 2.0 - 5.0 INTER FACE SYSTEM Comment:See interpretive alejandra a section for risk classifications. LIPID PANEL COMMENT See below INTERFACE SYSTEM Comment: Adult ATP III Classifications: Cholesterol (mg/dL) ? Triglyceride (mg/dL) Desirable ? <200 ? Normal ? <150 ?? Borderline ? 200 - 239 ?? Borderline High ? 150 - 199 High ? >=240 ? High ?200 - 499 ? Very High ? >=500 ?? HDL Cholesterol (mg/dL) ? LDL (mg/dL) Low ??(increased risk) <40 ?Optimal ? <100 ?? High (reduced risk) ??>=60 ?Near or above optimal ??100 - 129 ? Borderline ? 130 - 159 ? High ? 160 - 189 ? Very High ?>=190 LDL calculation is not accurate if Triglycerides are greater than 400 mg /dL Pediatric NCEP Classifications: Cholesterol(<20 years),(mg/dL) ?Triglyceride Desirable ?<170 ?Pediatric classification Borderline ?170 - 199 ?not defined. High >=200 ? HDL (<5 years) ? LDL (mg/dL) No Reference Range Established ?Desirable ?<110 ?Borderline ?110 - 129 ?High ?>=130 10/23/2004 2:44 AM CDT Jono Scherer MD CHEMISTRY ORDERABLES INTERFACE SYSTEM Refer to clinic/hospital department * (ABNORMAL) COMPREHENSIVE METABOLIC PANEL (10/23/2004 2:44 AM CDT) GLUCOSE 122(H) 65 - 109 mg/dL INTERFACE SYSTEM CREATININE 1.1 0.5 - 1.3 mg/dL INTERFACE SYSTEM AST 162(H) 12 - 38 U/L INTERFACE SYSTEM ALKALINE PHOSPHATASE 69 40 - 129 U/L INTERFACE SYSTEM BUN 14 6 - 20 mg/dL INTERFACE SYSTEM BILIRUBIN TOTAL 0.4 0.2 - 1.0 mg/dL INTERFACE SYSTEM ALBUMIN 3.8 3.4 - 4.8 g/dL INTERFACE SYSTEM TOTAL PROTEIN 6.8 6.3 - 8.6 g/dL INTERFACE SYSTEM ALT 48(H) 0 - 41 U/L INTERFACE SYSTEM SODIUM 137 135 - 145 mmol/L INTERFACE SYSTEM POTASSIUM 3.8 3.5 - 4.9 mmol/L INTERFACE SYSTEM CHLORIDE 104 96 - 108 mmol/L INTERFACE SYSTEM CO2 25 22 - 30 mmol/L INTERFACE SYSTEM CALCIUM 8.4(L) 8.6 - 10.2 mg/dL INTERFACE SYSTEM 10/23/2004 2:4 4 AM CDT Jono Scherer MD CHEMISTRY ORDERABLES INTERFACE SYSTEM Refer to clinic/hospital department documented in this encounter Visit Diagnoses Diagnosis Acute myocardial infarction, true posterior wall infarction, initial episode of care- Primary documented in this encounter Care Teams Mold Yard Supervisor Relationship Specialty Start Date End Date Rosanne Santana MD [address] [facility] [place] [id number] PCP - General 10/24/03 documented as of this encounter
--- OUTSIDE RECORDS SUMMARY | 2024-04-12 11:41 | XMS_ITS | Encounter Summary ---
Author Organization [email or web address] Address [address] [place] [address] Care Team Providers Care Grocery Supervisor Name Role Phone Rosanne Santana MD Primary Care Provider [phone] Encounter Details Date Type Department Care Team (Late st Contact Info) Description 03/04/2001 Outpatient Historical [facility] Venkat Uribe MD [address] [place] [address] Er, Authorized P NO ADDRESS ON FILE CHEST PAIN NOS (Primary Dx) Social History Tobacco Use Types Packs/Day Years Used Date Smoking Tobacco: Never Assessed Sex and Gender Information Value Date Recorded Sex Assigned at Not on file Gender Identity Not on file Sexual Orientation Not on file documented as of this encounter Plan of Treatment Not on file documented as of this encounter Visit Diagnoses Diagnosis Chest pain, unspecified- Primary documented in this encounter Care Teams Grocery Supervisor Relationship Specialty Start Date End Date Rosanne Santana MD [address] [place] [address] PCP - General 10/24/03 documented as of this encounter
--- OUTSIDE RECORDS SUMMARY | 2024-04-12 11:41 | XMS_ITS | Encounter Summary ---
Author Organization [employer] Address [address] [place] [address] Care Team Providers Care Business Consultant Name Role Phone Rosanne Santana MD Primary Care Provider [phone] Encounter Details Date Type Department Care Team (Latest Contact Info) Description 10/24/2003 Outpatient [facility] Options [address] [place] [address] & [place] [address] Rosanne Santana MD [address] [place] [address] PURE HYPERCHOLESTEROLEM (Primary Dx) Social [...] Primary documented in this encounter Care Teams Business Consultant Relationship Specialty Start Date End Date Rosanne Santana MD [address] [place] [address] PCP - General 10/24/03 documented as of this encounter
--- OUTSIDE RECORDS SUMMARY | 2024-04-12 11:41 | XMS_ITS | Encounter Summary ---
Author Organization [employer] Address [address] [place] [address] Care Team Providers Care Classifying Machine Operator Name Role Phone Rosanne Santana MD Primary Care Provider [phone] Encounter Details Date Type Department Care Team (Late st Contact Info) Description 11/08/[address] [facility] [address] [place] [phone] Adelso Weathers MD NO ADDRESS ON FILE Social History [...] on filedocumented in this encounter Care Teams Classifying Machine Operator Relationship Specialty Start Date End Date Rosanne Santana MD [address] [place] [address] [place] [address] PCP - General 10/24/03 documented as of this encounter
--- OUTSIDE RECORDS SUMMARY | 2024-04-12 16:58 | XMS_ITS | Continuity of Care Document ---
Author Name [facility] Organization [facility] Care Team Providers Care Property Field Adjuster Name Role Phone [facility] Unavailable Unavailable Problems Combined list of problems from Department of [facility] and [facility] facilities. It does not include entries that were removed or entered in error. Problem Status Onset Date Problem Type Date of Resolution Comments Source Benign essential hypertension Active Condition [facility] Congestive heart failure Active Condition [facility] Coronary atherosclerosis (SNOMED CT 726072111) Active Condition Apr 06, 2004 Entered By: DONNY HARRISON Comment: myocardial infarction [facility] Hyperlipidemia (SNOMED CT 88286604) Active Condition [facility] Hypothyroidism Active Condition [facility] Prediabetes Active Condition [facility] Diagnosis: ICD-10-CM Z13.5 Encounter for screening for eye and ear disorders Active Diagnosis [facility] Diagnosis: ICD-10-CM I25.10 Athscl heart disease of [place] coronary artery w/o ang pctrs Active Diagnosis [facility] Diagnosis: ICD-10-CM E03.9 Hypothyroidism, unspecified Active Diagnosis [facility] Medications Combined list of outpatient medications from [facility] of [facility] and [facility] facilities.Medications provided include 1) outpatient medications from the last 15 months, and 2) patient-reported medications. Medication Details Route Status Patient Instructions Prescription Expires Prescription Number Last Dispense Date Ordering Provider Order Date Order Qty Source ASPIRIN 81MG TAB,EC TAKE ONE TABLET BY MOUTH ONCE A DAY FOR CARDIOVA SCULAR DISEASE TAKE WITH FOOD ORAL ACTIVE 11/19/2024 [id number] 4 ICEMARGUERITE E 2023 120 [facility] ASPIRIN 81MG TAB,EC TAKE ONE TABLET BY MOUTH ONCE A DAY FOR CARDIOVA SCULAR DISEASE TAKE WITH FOOD ORAL DISCONT INUED 02/28/2024 [id number] 4 MARVEL,JOEL YUAN T 2022 120 [facility] CLOPIDOGREL BISULFATE 75MG TAB TAKE ONE TABLET BY MOUTH ONCE A DAY FOR ACUTE CORONARY SYNDROME ORAL ACTIVE 11/19/2024 [id number] 4 MARGUERITE PAEZ 2023 90 [facility] CLOPIDOGREL BISULFATE 75MG TAB TAKE ONE TABLET BY MOUTH ONCE A DAY FOR ACUTE CORONARY SYNDROME ORAL DISCONT INUED 02/28/2024 [id number] 4 MARVEL,JOEL YUAN T 2022 90 [facility] FUROSEMIDE 40MG TAB TAKE ONE TABLET BY MOUTH EVERY MORNING FOR FLUID RETENTIO N (EDEMA) ORAL ACTIVE 11/19/2024 [id number] 4 MARGUERITE PAEZ Julisa 2023 90 [facility] FUROSEMIDE 40MG TAB TAKE ONE TABLET BY MOUTH EVERY MORNING FOR FLUID RETENTIO N (EDEMA) ORAL DISCONT INUED 02/28/2024 [id number] 4 MARVELJOEL YUAN T 2022 90 [facility] LEVOTHYROXI NE NA 50MCG TAB (SYNTHROID) TAKE ONE TABLET BY MOUTH EVERY MORNING BEFORE A MEAL FOR HYPOTHYR OIDISM TAKE 30 MINUTES BEFORE FOOD. TAKE SEPARATE LY FROM ALL OTHER MEDICATI ONS. ORAL ACTIVE 11/19/2024 [id number] 4 MARGUERITE PAEZ Julisa 2023 90 [facility] LEVOTHYROXI NE NA 50MCG TAB (SYNTHROID) TAKE ONE TABLET BY MOUTH EVERY MORNING BEFORE A MEAL FOR HYPOTHYR OIDISM TAKE 30 MINUTES BEFORE FOOD. TAKE SEPARATE LY FROM ALL OTHER MEDICATI ONS. ORAL DISCONT INUED 02/28/2024 [id number] 4 MARVEL,JOEL YUAN T 2022 90 [facility] METOPROLOL SUCCINATE 50MG TAB,SA TAKE ONE-HALF TABLET BY MOUTH ONCE A DAY FOR HIGH BLOOD PRESSURE MALLORYO W WHOLE, DO NOT CRUSH OR CHEW (TABLETS MAY BE CUT IN HALF). ORAL ACTIVE 11/19/2024 [id number] 4 MARGUERITE PAEZ 2023 45 [facility] METOPROLOL SUCCINATE 50MG TAB,SA TAKE ONE-HALF TABLET BY MOUTH ONCE A DAY FOR HIGH BLOOD PRESSURE SWALLO W WHOLE, DO NOT CRUSH OR CHEW (TABLETS MAY BE CUT IN HALF). ORAL DISCONT INUED 02/28/2024 [id number] 4 MARVEL,JOEL YUAN T 2022 45 [facility] ROSUVASTATI N CA 40MG TAB TAKE ONE TABLET BY MOUTH EVERY EVENING FOR HIGH CHOLESTE ROL ORAL ACTIVE 11/19/2024 [id number] 4 MARGUERITE PAEZ 2023 90 [facility] ROSUVASTATI N CA 40MG TAB TAKE ONE TABLET BY MOUTH EVERY EVENING FOR HIGH CHOLESTE ROL ORAL DISCONT INUED 02/28/2024 [id number] 4 MARVEL,JOEL YUAN T 2022 90 [facility] SACUBITRIL 49MG/VALSAR ABBOTT 51MG TAB TAKE ONE-HALF TABLET BY MOUTH TWICE A DAY FOR HEART FAILURE ORAL ACTIVE 11/19/2024 [id number] 4 MARGUERITE PAEZ 2023 90 [facility] SACUBITRIL 49MG/VALSAR ABBOTT 51MG TAB TAKE ONE-HALF TABLET BY MOUTH TWICE A DAY FOR HEART FAILURE ORAL DISCONT INUED 02/28/2024 [id number] 4 MARVELJOEL T [address] [place] [address] Immunizations Combined list of available immunizations from the Department of Defense and Veterans Affairs facilities. 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 Order Name Results Value Reference Range Date Interpretation Specimen Comments Source CBC LEUKOCYTES [#/VOLUME] IN BLOOD BY AUTOMATED COUNT 7.9 10*3/u L 3.6 - 11.2 11/20 Specimen Type: BLOOD No comment entered. Ordering Provider: WISAM GRIER Report Released Date/Time: Oct 04, 2023 05:25 PM Reporting Lab: [facility] [address] [place] [phone] Performing Lab: [address] CBC ERYTHROCYTE S [#/VOLUME] IN BLOOD BY AUTOMATED COUNT 3.64 10*6/u L 4.10 - 5.70 11/20 L Specimen Type: BLOOD No comment entered. Ordering Provider: WISAM GRIER Report Released Date/Time: Oct 04, 2023 05:25 PM Reporting Lab: [facility] [address] [place] [phone] Performing Lab: [facility] [address] [place] [phone] [place] [address] CBC HEMOGLOBIN [MASS/VOLUM E] IN BLOOD 11.9 g/dL 13.1 - 16.8 11/20 L Specimen Type: BLOOD No comment entered. Ordering Provider: WISAM GRIER Report Released Date/Time: Oct 04, 2023 05:25 PM Reporting Lab: [facility] [address] [place] [phone] Performing Lab: [facility] [address] [place] [phone] [place] [address] CBC HEMATOCRIT [VOLUME FRACTION] OF BLOOD 35.0 38.2 - 48.4 11/20 L Specimen Type: BLOOD No comment entered. Ordering Provider: WISAM GRIER Report Released Date/Time: Oct 04, 2023 05:25 PM Reporting Lab: [facility] [phone] Performing Lab: [address] [phone] [facility] CBC MCV [ENTITIC VOLUME] BY AUTOMATED COUNT 96.2 fL 80.0 - 100.0 11/20 Specimen Type: BLOOD No comment entered. Ordering Provider: WISAM GRIER Report Released Date/Time: Oct 04, 2023 05:25 PM Reporting Lab: [address] [phone] Performing Lab: [address] [phone] [place] [address] CBC MCH [ENTITIC MASS] BY AUTOMATED COUNT 32.7 pg 27.0 - 34.0 11/20 Specimen Type: BLOOD No comment entered. Ordering Provider: WISAM GRIER Report Released Date/Time: Oct 04, 2023 05:25 PM Reporting Lab: [address] [phone] Performing Lab: [address] [phone] [place] [address] CBC MCHC [MASS/VOLUM E] BY AUTOMATED COUNT 34.0 g/dL 33.0 - 36.0 11/20 Specimen Type: BLOOD No comment entered. Ordering Provider: WISAM GRIER Report Released Date/Time: Oct 04, 2023 05:25 PM Reporting Lab: [address] [phone] Performing Lab: [address] [phone] [facility] CBC PLATELETS [#/VOLUME] IN BLOOD BY AUTOMATED COUNT 189 10*3/u L 150 - 400 11/20 Specimen Type: BLOOD No comment entered. Ordering Provider: WISAM GRIER Report Released Date/Time: Oct 04, 2023 05:25 PM Reporting Lab: [address] [phone] Performing Lab: [facility] [address] [facility] [phone] [facility] CBC PLATELET MEAN VOLUME [ENTITIC VOLUME] IN BLOOD BY AUTOMATED COUNT 9.6 fL 7.5 - 11.2 11/20 Specimen Type: BLOOD No comment entered. Ordering Provider: WISAM GRIER Report Released Date/Time: Oct 04, 2023 05:25 PM Reporting Lab: [facility] [address] [place] [phone] Performing Lab: [facility] [address] [place] [phone] [facility] CBC ERYTHROCYTE DISTRIBUTIO N WIDTH [RATIO] BY AUTOMATED COUNT 14.6 11.8 - 15.1 11/20 Specimen Type: BLOOD No comment entered. Ordering Provider: WISAM GRIER Report Released Date/Time: Oct 04, 2023 05:25 PM Reporting Lab: [facility] [address] [place] [phone] Performing Lab: [facility] [address] [place] [phone] [facility] CBC LYMPHOCYTES /100 LEUKOCYTES IN BLOOD BY AUTOMATED COUNT 17 11/20 Specimen Type: BLOOD No comment entered. Ordering Provider: WISAM GRIER Report Released Date/Time: Oct 04, 2023 05:25 PM Reporting Lab: [facility] [address] [place] [phone] Performing Lab: [facility] [address] [place] [phone] [facility] CBC MONOCYTES/1 00 LEUKOCYTES IN BLOOD BY AUTOMATED COUNT 11 11/20 Specimen Type: BLOOD No comment entered. Ordering Provider: WISAM GRIER Report Released Date/Time: Oct 04, 2023 05:25 PM Reporting Lab: [facility] [address] [place] [phone] Performing Lab: [facility] [address] [place] [phone] [facility] CBC NEUTROPHILS /100 LEUKOCYTES IN BLOOD BY AUTOMATED COUNT 69 11/20 Specimen Type: BLOOD No comment entered. Ordering Provider: WISAM GRIER Report Released Date/Time: Oct 04, 2023 05:25 PM Reporting Lab: [facility] [address] [place] [phone] Performing Lab: [facility] [address] [place] [phone] [facility] CBC EOSINOPHILS /100 LEUKOCYTES IN BLOOD BY AUTOMATED COUNT 2 11/20 Specimen Type: BLOOD No comment entered. Ordering Provider: WISAM GRIER Report Released Date/Time: Oct 04, 2023 05:25 PM Reporting Lab: [facility] [address] [place] [phone] Performing Lab: [address] [phone] [facility] CBC BASOPHILS/1 00 LEUKOCYTES IN BLOOD BY AUTOMATED COUNT 0 11/20 Specimen Type: BLOOD No comment entered. Ordering Provider: WISAM GRIER Report Released Date/Time: Oct 04, 2023 05:25 PM Reporting Lab: [facility] [address] [place] [phone] Performing Lab: [facility] [address] [place] [phone] [facility] CBC LYMPHOCYTES [#/VOLUME] IN BLOOD BY AUTOMATED COUNT 1.33 10*3/u L 0.77 - 4.50 11/20 Specimen Type: BLOOD No comment entered. Ordering Provider: WISAM GRIER Report Released Date/Time: Oct 04, 2023 05:25 PM Reporting Lab: [facility] [address] [place] [phone] Performing Lab: [facility] [address] [place] [phone] [facility] CBC MONOCYTES [#/VOLUME] IN BLOOD BY AUTOMATED COUNT 0.90 10*3/u L 0.19 - 0.80 11/20 H Specimen Type: BLOOD No comment entered. Ordering Provider: WISAM GRIER Report Released Date/Time: Oct 04, 2023 05:25 PM Reporting Lab: [facility] [address] [place] [phone] Performing Lab: [facility] [address] [place] [phone] [place] [address] CBC NEUTROPHILS [#/VOLUME] IN BLOOD BY AUTOMATED COUNT 5.47 10*3/u L 2.10 - 8.00 11/20 Specimen Type: BLOOD No comment entered. Ordering Provider: WISAM GRIER Report Released Date/Time: Oct 04, 2023 05:25 PM Reporting Lab: [facility] [address] [place] [phone] Performing Lab: [address] [phone] CBC EOSINOPHILS [#/VOLUME] IN BLOOD BY AUTOMATED COUNT 0.12 10*3/u L 0.00 - 0.60 11/20 Specimen Type: BLOOD No comment entered. Ordering Provider: WISAM GRIER Report Released Date/Time: Oct 04, 2023 05:25 PM Reporting Lab: [facility] [address] [place] [phone] Performing Lab: [address] [phone] [place] [address] CBC BASOPHILS [#/VOLUME] IN BLOOD BY AUTOMATED COUNT 0.03 10*3/u L 0.00 - 0.20 11/20 Specimen Type: BLOOD No comment entered. Ordering Provider: WISAM GRIER Report Released Date/Time: Oct 04, 2023 05:25 PM Reporting Lab: [facility] [address] [place] [phone] Performing Lab: [address] [phone] [place] [address] COMPREHEN SIVE METABOLIC PANEL CREATININE [MASS/VOLUM E] IN SERUM OR PLASMA 0.98 mg/dL 0.7 - 1.3 11/20 Specimen Type: PLASMA Comment: No hemolysis noted. Ordering Provider: WISAM GRIER Report Released Date/Time: Oct 04, 2023 05:25 PM Reporting Lab: [facility] [address] [facility] [phone] Performing Lab: [facility] [address] [place] [phone] [facility] COMPREHEN SIVE METABOLIC PANEL UREA NITROGEN [MASS/VOLUM E] IN SERUM OR PLASMA 13.6 mg/dL 9.0 - 25.0 11/20 Specimen Type: PLASMA Comment: No hemolysis noted. Ordering Provider: WISAM GRIER Report Released Date/Time: Oct 04, 2023 05:25 PM Reporting Lab: [address] [phone] Performing Lab: [address] [phone] [facility] COMPREHEN SIVE METABOLIC PANEL GLUCOSE [MASS/VOLUM E] IN SERUM OR PLASMA 109 mg/dL 72 - 99 11/20 H Specimen Type: PLASMA Comment: No hemolysis noted. Ordering Provider: WISAM GRIER Report Released Date/Time: Oct 04, 2023 05:25 PM Reporting Lab: [facility] [address] [place] [phone] Performing Lab: [facility] [address] [place] [phone] [facility] COMPREHEN SIVE METABOLIC PANEL SODIUM [MOLES/VOLU ME] IN SERUM OR PLASMA 140 meq/L 136 - 145 11/20 Specimen Type: PLASMA Comment: No hemolysis noted. Ordering Provider: WISAM GRIER Report Released Date/Time: Oct 04, 2023 05:25 PM Reporting Lab: [facility] [address] [place] [phone] Performing Lab: [facility] [address] [place] [phone] [facility] COMPREHEN SIVE METABOLIC PANEL POTASSIUM [MOLES/VOLU ME] IN SERUM OR PLASMA 4.0 meq/L 3.5 - 5 11/20 Specimen Type: PLASMA Comment: No hemolysis noted. Ordering Provider: WISAM GRIER Report Released Date/Time: Oct 04, 2023 05:25 PM Reporting Lab: [facility] [address] [place] [phone] Performing Lab: [facility] [address] [place] [phone] [facility] COMPREHEN SIVE METABOLIC PANEL CHLORIDE [MOLES/VOLU ME] IN SERUM OR PLASMA 107 meq/L 98 - 107 11/20 Specimen Type: PLASMA Comment: No hemolysis noted. Ordering Provider: WISAM GRIER Report Released Date/Time: Oct 04, 2023 05:25 PM Reporting Lab: [facility] [address] [place] [phone] Performing Lab: [facility] [address] [facility] [phone] [facility] COMPREHEN SIVE METABOLIC PANEL CARBON DIOXIDE, TOTAL [MOLES/VOLU ME] IN SERUM OR PLASMA 24 meq/L 22 - 31 11/20 Specimen Type: PLASMA Comment: No hemolysis noted. Ordering Provider: WISAM GRIER Report Released Date/Time: Oct 04, 2023 05:25 PM Reporting Lab: [facility] [address] [place] [phone] Performing Lab: [facility] [address] [facility] [phone] [facility] COMPREHEN SIVE METABOLIC PANEL CALCIUM [MASS/VOLUM E] IN SERUM OR PLASMA 9.2 mg/dL 8.4 - 10.4 11/20 Specimen Type: PLASMA Comment: No hemolysis noted. Ordering Provider: WISAM GRIER Report Released Date/Time: Oct 04, 2023 05:25 PM Reporting Lab: [facility] [address] [facility] [address] Performing Lab: [facility] [address] [facility] [phone] [facility] COMPREHEN SIVE METABOLIC PANEL PROTEIN [MASS/VOLUM E] IN SERUM OR PLASMA 7.2 g/dL 6 - 8.6 11/20 Specimen Type: PLASMA Comment: No hemolysis noted. Ordering Provider: WISAM GRIER Report Released Date/Time: Oct 04, 2023 05:25 PM Reporting Lab: [facility] [address] [facility] [phone] Performing Lab: [facility] [address] [place] [phone] COMPREHEN SIVE METABOLIC PANEL ALBUMIN [MASS/VOLUM E] IN SERUM OR PLASMA 3.8 g/dL 3.4 - 5 11/20 Specimen Type: PLASMA Comment: No hemolysis noted. Ordering Provider: WISAM GRIER Report Released Date/Time: Oct 04, 2023 05:25 PM Reporting Lab: [facility] [address] [place], [place] [phone] Performing Lab: [facility] [address] [place] [phone] [facility] COMPREHEN SIVE METABOLIC PANEL BILIRUBIN.T OTAL [MASS/VOLUM E] IN SERUM OR PLASMA 0.9 mg/dL 0.2 - 1.2 11/20 Specimen Type: PLASMA Comment: No hemolysis noted. Ordering Provider: WISAM GRIER Report Released Date/Time: Oct 04, 2023 05:25 PM Reporting Lab: [facility] [address] [facility] [phone] Performing Lab: [facility] [address] [place] [phone] [place] [address] COMPREHEN SIVE METABOLIC PANEL ALKALINE PHOSPHATASE [ENZYMATIC ACTIVITY/VO LUME] IN SERUM OR PLASMA 71 U/L 40 - 150 11/20 Specimen Type: PLASMA Comment: No hemolysis noted. Ordering Provider: WISAM GRIER Report Released Date/Time: Oct 04, 2023 05:25 PM Reporting Lab: [facility] [address] [facility] [phone] Performing Lab: [address] [phone] [facility] COMPREHEN SIVE METABOLIC PANEL ASPARTATE AMINOTRANSF ERASE [ENZYMATIC ACTIVITY/VO LUME] IN SERUM OR PLASMA 16 U/L 5 - 34 11/20 Specimen Type: PLASMA Comment: No hemolysis noted. Ordering Provider: WISAM GRIER Report Released Date/Time: Oct 04, 2023 05:25 PM Reporting Lab: [facility] [address] [place] [phone] Performing Lab: [address] [phone] [place] [address] COMPREHEN SIVE METABOLIC PANEL ALANINE AMINOTRANSF ERASE [ENZYMATIC ACTIVITY/VO LUME] IN SERUM OR PLASMA 12 U/L 8 - 40 11/20 Specimen Type: PLASMA Comment: No hemolysis noted. Ordering Provider: WISAM GRIER Report Released Date/Time: Oct 04, 2023 05:25 PM Reporting Lab: [facility] [address] [place] [phone] Performing Lab: [address] [phone] [facility] COMPREHEN SIVE METABOLIC PANEL GLOMERULAR FILTRATION RATE/1.73 SQ M.PREDICTED [VOLUME RATE/AREA] IN SERUM, PLASMA OR BLOOD BY CREATININE- BASED FORMULA (CKD-EPI 2020) 80.4 60 11/20 Specimen Type: PLASMA Comment: No hemolysis noted. Ordering Provider: WISAM GRIER Report Released Date/Time: Oct 04, 2023 05:25 PM Reporting Lab: [facility] [address] [place] [phone] Performing Lab: [facility] [address] [place] [phone] [facility] FREE T4 (STL) THYROXINE (T4) FREE [MASS/VOLUM E] IN SERUM OR PLASMA 0.90 ng/mL 0.7 - 1.48 11/20 Specimen Type: PLASMA No comment entered. Ordering Provider: WISAM GRIER Report Released Date/Time: Oct 04, 2023 05:25 PM Reporting Lab: [facility] [address] [place] [phone] Performing Lab: [facility] [address] [place] [phone] [facility] HGA1C HEMOGLOBIN A1C/HEMOGLO BIN.TOTAL IN BLOOD 5.6 4.0 - 6.0 11/20 Specimen Type: BLOOD No comment entered. Ordering Provider: WISAM GRIER Report Released Date/Time: Oct 04, 2023 05:25 PM Reporting Lab: [facility] [address] [place] [phone] Performing Lab: [facility] [address] [place] [phone] [facility] LIPID PANEL (STL) CHOLESTEROL [MASS/VOLUM E] IN SERUM OR PLASMA 69 mg/dL 0 - 200 11/20 Specimen Type: PLASMA Comment: No hemolysis noted. Ordering Provider: WISAM GRIER Report Released Date/Time: Oct 04, 2023 05:25 PM Reporting Lab: [facility] [address] [place] [phone] Performing Lab: [facility] [address] [place] [phone] [facility] LIPID PANEL (STL) TRIGLYCERID E [MASS/VOLUM E] IN SERUM OR PLASMA 92 mg/dL 0 - 150 11/20 Specimen Type: PLASMA Comment: No hemolysis noted. Ordering Provider: WISAM GRIER Report Released Date/Time: Oct 04, 2023 05:25 PM Reporting Lab: [facility] [address] [place] [phone] Performing Lab: [facility] [address] [place] [phone] [facility] LIPID PANEL (STL) CHOLESTEROL IN LDL [MASS/VOLUM E] IN SERUM OR PLASMA BY CALCULATION 26 mg/dL 11/20 Specimen Type: PLASMA Comment: No hemolysis noted. Ordering Provider: WISAM GRIER Report Released Date/Time: Oct 04, 2023 05:25 PM Reporting Lab: [address] [phone] Performing Lab: [address] [phone] LIPID PANEL (STL) CHOLESTEROL IN HDL [MASS/VOLUM E] IN SERUM OR PLASMA 25 mg/dL 40 11/20 L Specimen Type: PLASMA Comment: No hemolysis noted. Ordering Provider: WISAM GRIER Report Released Date/Time: Oct 04, 2023 05:25 PM Reporting Lab: [address] [phone] Performing Lab: [place] [phone] PROST. SPECIFIC AG.(PB-ST L) PROSTATE SPECIFIC AG [MASS/VOLUM E] IN SERUM OR PLASMA 4.592 ng/mL 0 - 4 11/20 HH Specimen Type: SERUM Comment: The listed sex of this patient may not be a typical indication for this test. Therefore, reference ranges or interpretiv e criteria listed may not be valid. Clinical correlation suggested. Ordering Provider: WISAM GRIER Report Released Date/Time: Oct 04, 2023 05:25 PM Reporting Lab: [address] [phone] Performing Lab: [address] [phone] [place] [address] TSH W/ REFLEX FT4 (STL) THYROTROPIN [UNITS/VOLU ME] IN SERUM OR PLASMA 4.294 u[IU]/ mL 0.47 - 5 11/20 Specimen Type: PLASMA No comment entered. Ordering Provider: WISAM GRIER Report Released Date/Time: Oct 04, 2023 05:25 PM Reporting Lab: [address] [phone] Performing Lab: [facility] [address] [place] [phone] [facility] VITAMIN D, 25-HYDROX Y 25-HYDROXYV ITAMIN D3 [...] Oct 04, 2023 05:25 PM Reporting Lab: [address] [phone] Performing Lab: [phone] [place] [address] FREE T4 THYROXINE (T4) FREE [MASS/VOLUM E] IN SERUM OR PLASMA 1.34 ng/mL 0.7 - 1.48 11/28 Specimen Type: SERUM No comment entered. Ordering Provider: WISAM GRIER Report Released Date/Time: Nov 19, 2022 04:37 PM Reporting Lab: [facility] [address] [place] [phone] Performing Lab: [address] [phone] [facility] HGA1C HEMOGLOBIN A1C/HEMOGLO BIN.TOTAL IN BLOOD 5.6 4.0 - 6.0 11/28 Specimen Type: BLOOD No comment entered. Ordering Provider: WISAM GRIER Report Released Date/Time: Nov 19, 2022 04:37 PM Reporting Lab: [address] [phone] Performing Lab: [address] [address] [facility] Vital Signs Combined list of inpatient and outpatient Vital Signs from [employer] and [employer] Affairs, ranging from 12 months to all on record, depending upon the facility. Vital Sign Value Date Comments Source SYSTOLIC BLOOD PRESSURE 128 11/19/2023 14:57:21 [facility] DIASTOLIC BLOOD PRESSURE 81 11/19/2023 14:57:21 [facility] [facility] PULSE OXIMETRY 96 11/19/2023 14:57:21 [facility] WEIGHT 197 11/19/2023 14:57:21 [facility] BMI 26kg/m2 11/19/2023 14:57:21 [facility] PAIN 0 11/19/2023 14:57:21 [facility] TEMPERATURE 98.1 11/19/2023 14:57:21 [facility] PULSE 64 11/19/2023 14:57:21 [facility] RESPIRATION 18 11/19/2023 14:57:21 [facility] Encounters Combined list of: 1) Encounters from Department of [facility] facilities going back up to thelast 18 months. 2) Encounters from the Department of [facility] facilities going back up to 280 months. Location Location Details Encounter Type Encounter Number Reason For Visit Attending Provider ADM Date DC Date Status Disposition Source [facility] Outpatient Encounter [id number] 10/29 [facility] EMERGENCY DEPT VISIT MOD MDM [id number] Diagnos is: ICD-10- CM E03.9 Hypothy roidism , unspeci fied
GENDI,WAHI ED 10/29 [facility] QNHP OL DIG ASSMT&MGMT 11- [id number] Diagnos is: ICD-10- CM E03.9 Hypothy roidism , unspeci fied
LUPIS HWANG LLBowen E 11/18 [facility] Outpatient Encounter [id number] Diagnos is: ICD-10- CM E03.9 Hypothy roidism , unspeci fied
BASIM GRIERD T 11/19 [facility] Outpatient Encounter [id number] 01/23 [facility] Outpatient Encounter [id number] 02/27 [facility] Outpatient Encounter [id number] 09/30 [facility] Outpatient Encounter [id number] 11/18 [facility] TELEHEALTH FACILITY FEE [id number] Diagnos is: ICD-10- CM I25.10 Athscl heart disease of [place] coronar y artery w/o ang pctrs<b r/> ICE,MARGUERITE E 11/18 [facility] Outpatient Encounter [id number] 11/18 [facility] OFFICE O/P EST LOW 20 MIN [id number] Diagnos is: ICD-10- CM I25.10 Athscl heart disease of [place] coronar y artery w/o ang pctrs<b r/> ICE,MARGUERITE E 11/18 [facility] IMG RTA DETCJ/MNTR DS STAFF [id number] Diagnos is: ICD-10- CM Z13.5 Encount er for screeni ng for eye and ear disorde rs
TAHIR JOSHUA 11/18 [facility] Outpatient Encounter [id number] Diagnos is: ICD-10- CM Z13.5 Encount er for screeni ng for eye and ear disorde rs
RAFATCHEYENNECharly VIDAL R 11/20 [facility] Outpatient Encounter [id number] MARVELBASIM JACKSOND T 11/30 [facility] Social History Combined list of available smoking, tobacco, and other social history from Department of Defense and Veterans Affairs facilities. Social History Type Response Date Comment [facility] e Tobacco smoking status NHIS ND-TOBACCO NEVER USED 11/19/2023 [facility] History of tobacco use ND-TOBACCO FORMER USER 08/02/2022 [facility] History of tobacco use QUIT TOBACCO >7 YEARS AGO 06/20/2006 [facility] History of tobacco use CURRENT NON-TOBACCO USER-HX OF USE 08/16/2005 [facility] History of tobacco use CURRENT NON-TOBACCO USER-HX OF USE 04/06/2004 [facility] Plan of Care List of future care activities from Department of [facility] facilities. Additional future care activities may be listed in the Assessment and Plan section. 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
--- OUTSIDE RECORDS SUMMARY | 2024-04-12 16:59 | XMS_ITS | Clinical Summary ---
Author Organization [facility] Address [address] [place] [address]. [place], [place] [id number] [place] [id number] Care Team Providers Care Fish Hatchery Manager Name Role Phone Nikky Reyes MD [...] Hyperlipidemia 02/11/2023 Hypothyroidism 02/11/2023 Ischemic dilated cardiomyopathy ([facility] ) 02/11/2023 Nausea 02/11/2023 Nonrheumatic mitral (valve) insufficiency 2022 Nonrheumatic tricuspid (valve) insufficiency Unspecified diastolic (conge stive) heart failure ([facility]) 02/11/2023 Encounters Date Type Department Care Team Description 04/10/2024 1:02 PM BLISTER PACKAGING 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 - 04/10/2024 2:36 PM [facility] Emergency [facility] [place] [address] Yoko Arzola NP Fever Discharge Disposition: Home or Self Care (Routine Discharge) 04/10/2024 Travel 04/08/2024 11:17 AM [facility] Anesthesia Event [facility] [place] [address] Vickie Clarke MD Jackson, Samantha Rae, FNP 04/08/2024 11:16 AM BLISTER PACKAGING 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 - 04/08/2024 12:44 PM [facility] Surgery [facility] [place] [address] Adelso Mansfield MD CYSTOSCOPY 04/08/2024 8:59 AM BLISTER PACKAGING 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 - 04/08/2024 1:50 PM BLISTER PACKAGING 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 Hospital Encounter [facility] [address] Adelso Mansfield MD Discharge Disposition: Home or Self Care (Routine Discharge) 04/08/2024 Travel 04/02/2024 2:45 PM BLISTER PACKAGING 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 - 04/02/2024 11:59 PM BLISTER PACKAGING 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 Hospital Encounter [facility] [address] Adelso Mansfield MD Discharge Disposition: Home or Self Care (Routine Discharge) 04/02/2024 Travel 04/01/2024 [facility] [address] Adelso Mansfield MD from Last 3 Months [...] on file Legal Sex Male 1:18 PM BLISTER PACKAGING 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 Gender Identity Not on file Sexual Orientation Not on file Last Filed Vital Signs Vital Sign Reading Time Taken Comments Blood Pressure 103/70 04/10/2024 12:28 PM BLISTER PACKAGING 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 Pulse 90 04/10/2024 12:28 PM BLISTER PACKAGING 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 Temperature 37.5 ??C (99.5 ??F) 04/10/2024 12:[address] Respiratory Rate 16 04/10/2024 12:28 PM BLISTER PACKAGING 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 Oxygen Saturation 100% 04/10/2024 12:28 PM BLISTER PACKAGING 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 Inhaled Oxygen Concentration - - Weight 87.1 kg (192 lb) 04/10/2024 12:28 PM BLISTER PACKAGING 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 Height 185.4 cm (6' 1 ) 04/10/2024 12:28 PM BLISTER PACKAGING 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 Body Mass Index 25.33 04/10/2024 12:28 PM BLISTER PACKAGING 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 Plan of Treatment Health Maintenance Due Date [...] this topic Medical Devices Explanted Type Area Varnish Maker Helper Device Identifier Shelf Expiration Date Model / Serial / Lot Stent Ureteral Flaxton Sci Contour Vl 6fr X 22-30cm - [id number] Implanted:Qty: 1 on 12/05/2023 by Kwaku Martin MD at [facility] Explanted:Qty: 1 on 04/08/2024 by Adelso Mansfield MD at [facility] Stent Right: Ureter Pharmapod RAJ 07/17/2026 [id number] / / [id number] Procedures Procedure Name Priority Date/Time Associated Diagnosis Comments ECG 12-LEAD STAT 04/10/2024 1:17 PM BLISTER PACKAGING 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 INFLUENZA A & B STAT 04/10/2024 1:13 PM BLISTER PACKAGING 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 CORONAVIRUS (COVID 19) STAT 04/10/2024 1:13 PM BLISTER PACKAGING 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 PROCALCITONIN (PCT) STAT 04/10/2024 1 :09 PM BLISTER PACKAGING 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 TROPONIN, QUANT STAT 04/10/2024 1:09 PM BLISTER PACKAGING 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 COMPREHENSIVE METABOLIC PANEL STAT 04/10/2024 1:09 PM BLISTER PACKAGING 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 CBC W/DIFF AUTOMATED STAT 04/10/2024 1:09 PM BLISTER PACKAGING 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 XR CHEST PA+LAT STAT 04/10/2024 12:57 PM BLISTER PACKAGING 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 SURG XR RETROGRD UROGRAPHY Routine 04/08/2024 12:02 PM BLISTER PACKAGING 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 CYSTOSCOPY STENT INSERTION/REMOVAL/CH LENORA 04/08/2024 11:16 AM BLISTER PACKAGING 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 BLADDER CANCER, HYDRONEPHROSIS WITH URETERAL STRICTURE N99.89, C67.9, N13.1 Case Notes SCHED BY FAX 03/19/2024 [facility] PHONE ASSESS CYSTOURETHROSCOPY,BI OPSY 04/08/2024 11:16 AM BLISTER PACKAGING 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 BLADDER CANCER, HYDRONEPHROSIS WITH URETERAL STRICTURE N99.89, C67.9, N13.1 Case Notes SCHED BY FAX 03/19/2024 [facility] PHONE ASSESS URINE BACTERIA CULTURE Routine 04/02/2024 2:46 PM BLISTER PACKAGING 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 Bladder cancer (CMS/HCC HHS/HCC) Hydronephrosis with ureteral stricture from Last 3 Months Results * ECG 12 lead (04/10/2024 1:17 PM BLISTER PACKAGING 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) 04/10/2024 1:17 PM BLISTER PACKAGING 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 Narrative [facility] [place] (LEN) RAD - 04/10/2024 5:58 PM BLISTER PACKAGING 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 ?[facility] ? [address] [place] ? Test Date: ?2024-04-10 Pat Name: ? MITCHELL RODRIGUEZ ? Department: ?? 41 ? Room: ? EXAM24 Gender: ? Male ? Rural Service Engineer: ?? : ?1950 ? Requested By: ATTILA DODSON Order Number: [id number] ? Reading MD: ?? Alysa Doreen ? Measurements Intervals ?[place] ? Rate: ? 82 ? P: ?51 IN: ? 145 ?QRS: ?-70 QRSD: ? 149 ?T: ?28 QT: ? 400 ? QTc: ?469 ? Interpretive Statements SINUS RHYTHM WITH OCCASIONAL ECTOPIC PREMATURE COMPLEXES RIGHT BUNDLE BRANCH BLOCK ??[120+ ms QRS DURATION, UPRIGHT V1, 40+ ms S IN I/aVL/V4/V5/V6] LEFT ANTERIOR FASCICULAR BLOCK ??[QRS AXIS <= -45, QR IN I, RS IN II] Compared to ECG 12/06/2023 01:00:38 No significant change TER PACKAGING 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 Procedure Note Alysa Logan MD - 04/10/[address] Test Date: 2024-04-10 Pat Name: MITCHELL RODRIGUEZ Department: 41 Room: [facility] Gender: Male Rural Service Engineer: : [id number] Requested By: ATTILA DODSON Order Number: [id number] Reading MD: Alysa Logan Measurements Intervals [place] Rate: 82 P: 51 IN: 145 QRS: -70 QRSD: 149 T: 28 QT: 400 QTc: 469 Interpretive Statements SINUS RHYTHM WITH OCCASIONAL ECTOPIC PREMATURE COMPLEXES RIGHT BUNDLE BRANCH BLOCK [120+ ms QRS DURATION, UPRIGHT V1, 40+ ms SIN I/aVL/V4/V5/V6] LEFT ANTERIOR FASCICULAR BLOCK [QRS AXIS <= -45, QR IN I, RS IN II] Compared to ECG 12/06/2023 01:00:38 No significant change TER PACKAGING 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 us Attila NEWBY ECG ORDERABLES Final Resu lt [facility] RAD * CORONAVIRUS (COVID 19) (04/10/2024 1:13 PM BLISTER PACKAGING 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) CORONAVIRUS SARS COV 2 RNA NEGATIVE NEGATIVE 04/10/2024 1:35 PM BLISTER PACKAGING 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 [facility] Comment: NEGATIVE RESULTS DO NOT [...] SARS-COV-2. SPECIMEN TYPE NASAL 04/10/2024 1:14 PM BLISTER PACKAGING 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 [facility] NASAL STRUCTURE / Unknown 04/10/2024 1:13 PM BLISTER PACKAGING 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 Attila NEWBY MICROBIOLOGY - GENERAL ORD ERABLES Final Result Performing Organization Address [facility] Co de Phone Number [facility] [address] [place] [address], * (ABNORMAL) INFLUENZA A & B, RAPID (04/10/2024 1:13 PM BLISTER PACKAGING 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) SPECIMEN TYPE NASAL 04/10/2024 1:15 PM BLISTER PACKAGING 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 [facility] INFLUENZA A POSITIVE(A) NEGATIVE 04/10/2024 1:35 PM BLISTER PACKAGING 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 [facility] INFLUENZA B NEGATIVE NEGATIVE 04/10/2024 1:35 PM BLISTER PACKAGING 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 [facility] Comment: Interpretation: Positive for Influenza Type A. This test can not distinguish influenza A virus subtypes. For example, this test cannot distinguish influenza infections caused by novel influenza A viruses versus seasonal influenza A viruses. NASAL STRUCTURE / Unknown 04/10/2024 1:13 PM BLISTER PACKAGING 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 Attila NEWBY MICROBIOLOGY - GENERAL ORD ERABLES Final Result Performing Organization Address [facility] Co de Phone Number [facility] [address] [place] [address], * PROCALCITONIN (PCT) (04/10/2024 1:09 PM BLISTER PACKAGING 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) Procalcitonin 0.07 0.00 - 0.49 NG/ML 04/10/2024 2:10 PM BLISTER PACKAGING 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 [facility] 04/10/2024 1:09 PM BLISTER PACKAGING 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 us Attila NEWBY LABORATORY Final Resu lt [facility] [address] [place] [address], * (ABNORMAL) COMPREHENSIVE METABOLIC PANEL (04/10/2024 1:09 PM BLISTER PACKAGING 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) Pathologist [facility] GLUCOSE 103(H) 70 - 99 MG/DL 04/10/2024 1:43 PM BLISTER PACKAGING 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 [facility] BUN 15 7 - 18 MG/DL 04/10/2024 1:43 PM [facility] CREATININE S/P/B 1.31(H) 0.7 - 1.3 MG/DL 04/10/2024 1:43 PM BLISTER PACKAGING 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 [facility] SODIUM S/P/B 134(L) 136 - 145 MMOL/L 04/10/2024 1:43 PM BLISTER PACKAGING 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 [facility] POTASSIUM S/P/B 3.8 3.5 - 5.1 MMOL/L 04/10/2024 1:43 PM [facility] CHLORIDE S/P/B 103 97 - 115 MMOL/L 04/10/2024 1:43 PM BLISTER PACKAGING 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 [facility] CO2 24.7 21 - 32 MMOL/L 04/10/2024 1:43 PM [facility] CALCIUM S/P/B 8.5 8.5 - 10.1 MG/DL 04/10/2024 1:43 PM BLISTER PACKAGING 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 [facility] BILIRUBIN TOTAL S/P/B 0.5 0.2 - 1.2 MG/DL 04/10/2024 1:43 PM [facility] Comment: THIS ASSAY IS NOT RECOMMENDED FOR PATIENTS UNDERGOING TREATMENT WITH ELTROMBOPAG DUE TO THE POTENTIAL FOR FALSELY ELEVATED RESULTS. TOTAL PROTEIN S/P/B 7.3 6.4 - 8.2 G/DL 04/10/2024 1:43 PM [facility] ALBUMIN S/P/B 3.5 3.4 - 5.0 G/DL 04/10/2024 1:43 PM [facility] AST 18 15 - 37 U/L 04/10/2024 1:43 PM [facility] ALT 23 16 - 60 U/L 04/10/2024 1:43 PM [facility] ALKALINE PHOSPHATASE S/P/B 75 50 - 136 U/L 04/10/2024 1:43 PM [facility] ANION GAP 6.3 2 - 10 MMOL/L 04/10/2024 1:43 PM [facility] BUN CREATININE RATIO 11.5 6 - 26 04/10/2024 1:43 PM [facility] A/G RATIO 0.9(L) 1.0 - 2.0 RATIO 04/10/2024 1:43 PM [facility] GFR ESTIMATE 56(L) >90 ML/MIN/1.7 3 M2 04/10/2024 1:43 PM [facility] Comment: NOTE: eGFR is not calculated for patients <18 years of age or gender unknown. This is an estimated GFR calculation using the new CKD EPI creatinine equation without race and so does not require a correction factor for race. This estimated GFR should not be used for calculating drug doses. 04/10/2024 1:09 PM BLISTER PACKAGING 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 us Attila NEWBY LABORATORY Final Resu lt [facility] [address] [place] [address], * (ABNORMAL) CBC W/DIFF AUTOMATED (04/10/2024 1:09 PM BLISTER PACKAGING 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) [facility] Signature WBC 6.10 4.5 - 11.0 x10'3/uL 04/10/2024 1:23 PM BLISTER PACKAGING 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 [facility] RBC 3.68(L) 4.70 - 6.10 x10'6/uL 04/10/2024 1:23 PM [facility] HGB 12.1(L) 14.0 - 18.0 G/DL 04/10/2024 1:23 PM [facility] HCT 36.4(L) 43.0 - 54.0 % 04/10/2024 1:23 PM [facility] MCV 98.9(H) 80.0 - 94.0 FL 04/10/2024 1:23 PM [facility] MCH 32.9(H) 27.0 - 31.0 PG 04/10/2024 1:23 PM [facility] MCHC 33.2 32.0 - 36.0 G/DL 04/10/2024 1:23 PM [facility] RDW 15.3(H) 11.5 - 14.5 % 04/10/2024 1:23 PM [facility] PLT 145 130 - 400 x10'3/uL 04/10/2024 1:23 PM [facility] MPV 8.8(L) 9.3 - 12.2 FL 04/10/2024 1:23 PM [facility] DIFFERENTIAL TYPE MANUAL DIFFERENTIAL 04/10/2024 2:12 PM BLISTER PACKAGING 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 [facility] SEG NEUTROPHILS 74 % 2:12 PM BLISTER PACKAGING 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 [facility] LYMPHOCYTES 9 % 04/10/2024 2:12 PM BLISTER PACKAGING 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 [facility] MONOCYTES 15 % 04/10/2024 2:12 PM BLISTER PACKAGING 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 [facility] BASOPHILS 2 % 04/10/2024 2:12 PM BLISTER PACKAGING 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 [facility] ABS. NEUTROPHILS 4.51 1.80 - 7.70 x10'3/uL 04/10/2024 2:12 PM BLISTER PACKAGING 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 [facility] ABS. LYMPHOCYTES 0.55(L) 1.00 - 4.80 x10'3/uL 04/10/2024 2:12 PM BLISTER PACKAGING 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 [facility] ABS. MONOCYTES 0.92(H) 0.30 - 0.82 x10'3/uL 04/10/2024 2:12 PM BLISTER PACKAGING 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 [facility] ABS. BASOPHILS 0.12(H) 0.01 - 0.08 x10'3/uL 04/10/2024 2:12 PM BLISTER PACKAGING 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 [facility] RBC MORPHOLOGY RBC MORPHOLOGY APPEARS NORMAL. SLIDE REVIEWED. 04/10/2024 2:12 PM BLISTER PACKAGING 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 [facility] PLT EST. ADEQUATE 04/10/2024 2:12 PM [facility] 04/10/2024 1:09 PM BLISTER PACKAGING 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 us Attila NEWBY LABORATORY Final Resu lt [facility] [address] [place] [address], [place] [phone] * TROPONIN, QUANT (04/10/2024 1:09 PM BLISTER PACKAGING 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) TROPONIN I HIGH SENSITIVITY 17 <79 ng/L 04/10/2024 1:43 PM BLISTER PACKAGING 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 [facility] Comment: HIGH DOSES OF BIOTIN, TROPONIN-SPECIFIC AUTOANTIBODIES, AND ANTIBODY THERAPY CONTAINING HAMA MAY INTERFERE WITH THIS TEST RESULT. CORRELATION TO CLINICAL HISTORY AND PRESENTATION RECOMMENDED. 04/10/2024 1:09 PM BLISTER PACKAGING 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 us Attila Dodson PA LABORATORY Final Resu lt [facility] [address] [place] [address], [place] [phone] * XR CHEST PA+LAT (04/10/2024 12:57 PM BLISTER PACKAGING 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) Anatomical Region Laterality Modality Chest Radiographic Clarissa ging 04/10/2024 12:5 8 PM BLISTER PACKAGING 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 Impressions 04/10/2024 12:59 PM BLISTER PACKAGING 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 IMPRESSION: No acute pulmonary findings. Referred By: ?? Interpreted By: Nader Farmer MD, 04/10/2024 12:58 PM Narrative 04/10/2024 12:59 PM BLISTER PACKAGING 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 [address] [address] Examination: XR CHEST PA+LAT Exam time: 04/10/2024 12:49 PM Indication: Cough and weakness Comparison: Chest 11/28/2023 Findings: Upright PA and lateral views of the chest were obtained. ??The heart size is upper limits of normal/mildly enlarged. ??No vascular congestion. ??No airspace consolidation, pleural effusion, or pneumothorax. Procedure Note Nader Farmer MD - 04/10/[address] [address] Examination: XR CHEST PA+LAT Exam time: 04/10/2024 [...] SURG XR RETROGRD UROGRAPHY (04/08/2024 12:02 PM BLISTER PACKAGING 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) Anatomical Region Laterality Modality Abdomen Radiographic Clarissa ging 04/08/2024 2:41 PM BLISTER PACKAGING 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 Impressions 04/08/2024 2:41 PM BLISTER PACKAGING 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 Impression: No radiologic interpretation will be issued. ??The report and documentation of this exam will reside in the patient's permanent medical record and in the attending physician's procedure note. Ordered By: ADELSO MANSFIELD Interpreted By: Marco A Baez MD, 04/08/2024 2:41 PM Narrative 04/08/2024 2:41 PM BLISTER PACKAGING 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 [place] [address] FLUOROSCOPY CONTROL ONLY Procedure Note Marco A Baez MD - 04/08/2024 [place] [address] FLUOROSCOPY CONTROL ONLY Impression: No radiologic interpretation will be issued. The report and documentationof this exam will reside in the patient's permanent medical record and inthe attending physician's procedure note. Ordered By: ADELSO MANSFIELD Interpreted By: Marco A Baez MD, 04/08/2024 2:41 PM Adelso Mansfield MD IMAGES ONLY Final Result * (ABNORMAL) URINE BACTERIA CULTURE (04/02/2024 2:46 PM BLISTER PACKAGING 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) SPEC DESCRIPTION URINE CLEAN CATCH 04/02/2024 2:47 PM BLISTER PACKAGING 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 [facility] SPECIAL REQUESTS NO SPECIAL REQUEST 04/02/2024 2:47 PM BLISTER PACKAGING 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 [facility] CULTURE RESULT >100,000 COL/ML STAPH. SPECIES NOT STAPH. AUREUS (A) 04/04/2024 8:02 AM BLISTER PACKAGING 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 [facility] URINE SPECIMEN OBTAINED BY CLEAN CATCH PROCEDURE / Unknown 04/02/2024 2:46 PM BLISTER PACKAGING 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 04/02/2024 3:46 PM BLISTER PACKAGING 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 Narrative Organism Antibiotic Method Susceptibility Staph. species not staph. aureus NITROFURANTOIN NIRMALA (V ITEK) <=16: Sensitive Staph. species not staph. aureus LEVOFLOXACIN NIRMALA (VIT EK) 4: Resistant Staph. species not staph. aureus OXACILLIN NIRMALA (VIT EK) >=4: Resistant Staph. species not staph. aureus TRIMETH-SULFAMETH. RI C (VITEK) 20: Sensitive Staph. species not staph. aureus TETRACYCLINE NIRMALA (VIT EK) >=16: Resistant Staph. species not staph. aureus VANCOMYCIN NIRMALA (VIT EK) 2: Sensitive Adelso Mansfield MD MICROBIOLOGY - GENERAL ORDERABL ES Final Result [facility] [address] [place] [address], from Last 3 Months Additional Health Concerns Infection Onset Date Last Indicated Influenza - Seasonal 04/10/2024 04/10/2024 Insurance MEDICARE [facility] Care Teams Fish Hatchery Manager Relationship Specialty Start Date End Date Nikky Reyes MD [address] [place] [address] PCP - General FAMILY PRACTICE 05/04/21
--- OUTSIDE RECORDS SUMMARY | 2024-04-12 16:59 | XMS_ITS | Encounter Summary ---
Author Organization [facility] Address [address] [place] [address]. [place], [place] [address] [place] [address] Care Team Providers Care Corporate Travel Expert Name Role Phone Nikky Reyes MD Primary Care Provider Reason for Referral * Imaging (Emergency) - New Request Specialty Diagnoses / Procedures Referred By Leatha mejia Referred To Contact RADIOLOGY Procedures CT ABD+PEL WO CON Richard Osborne MD,PHD [address] [place] [address] Phone: tel: fax: Referral ID Status Reason Start Date Expiration Date V isits Requested Visits Authorized [id number] New Request 12/06/2023 12/05/2024 1 1 Reason for Visit * Reason Comments Urinary Retention * Auth/Cert (Routine) Specialty Diagnoses / Procedures Referred By Leatha mejia Referred To Contact Diagnoses GROSS HEMATURIA, 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, D49.4 Procedures CYSTOSCOPY, TRANSURETHRAL RESECTION BLADDER TUMOR, BILATERAL RETROGRADE PYELOGRAM, LEBRON CATHETER PLACEMENT, INTRAVESICAL INSTILLATION OF GEMCITABINE POSSIBLE URETEROSCOPY, POSSIBLE URETERAL STENT PLACEMENT Kwaku Martin MD 3 [facility] [address] [place] [address] Phone: tel: fax: Referral ID Status Reason Start Date Expiration Date Visits Re quested Visits Authorized [id number] 1 1 Encounter Details Date Type Department Care Team (Late st Contact Info) Description 12/06/2023 12:02 AM CDT - 12/06/2023 3:06 AM CDT Emergency [facility] [place] [address] Richard Osborne MD,PHD [address] [place] [address] [id number] Urinary Retention Discharge Disposition: Home or Self [...] on file Legal Sex Male 1:18 PM TAKE OUT WAITRESS Gender Identity Not on file Sexual Orientation [...] through Care Everywhere. * Lebron Catheter, Male (Yakut) documented in this encounter Medications at Time [...] ABD+PEL WO CON Final Result by User, [id number] (12/05 012) [facility] [address] [place], [place] [address] EXAMINATION: CT Abdomen and Pelvis without intravenous [...] discussed the patient with Dr. Casillas (urology mayonnaise mixer) in consultation. I discussed the results of [...] understanding and agreed. Richard Osborne MD,PHD 12/06/23 1860 * Emily Simpson RN - 12/05/2023 11:53 [...] AM CDT) 12/06/2023 1:[address] [facility] - 12/06/2023 6:09 PM CDT ?[facility] ? [address] [place] ? Test Date: ?2023-12-06 Pat Name: ? MITCHELL RODRIGUEZ ? Department: ?? 41 ? Room: ? Gender: ? Male ? Silver Buffer: ?? [id number] : ?1950 ? Requested By: OUMAR ERNST Order Number: [id number] ? Reading MD: ?? Marino Arenas ? Measurements Intervals ?Dorr ? Rate: ? 73 ? P: ?39 [place]: ? 154 ?QRS: ?-74 QRSD: ? 162 [...] Marino Arenas MD - 12/06/2023 [facility] [address] Test Date: 2023-12-06 Pat Name: MITCHELL RODRIGUEZ Department: 41 Room: Gender: Male Silver Buffer: [id number] : 1950 Requested By: OUMAR ERNTS Order Number: [id number] Reading MD: Marino Arenas Measurements Intervals Dorr Rate: 73 P: 39 [place]: 154 QRS: -74 QRSD: 162 T: 58 [...] ECG ORDERABLES Final Resul t [facility] * CT ABD+PEL WO CON (12/06/2023 [...] 12:44 AM Narrative 12/06/2023 1:22 AM CDT [place] [address] EXAMINATION: CT Abdomen and Pelvis without intravenous [...] Procedure Note Judith Mcdaniel MD - 12/06/[address] [address] EXAMINATION: CT Abdomen and Pelvis without intravenous [...] 11 <79 ng/L 12/06/2023 12:53 AM CDT [facility] Comment: HIGH DOSES OF BIOTIN, TROPONIN-SPECIFIC AUTOANTIBODIES, AND ANTIBODY THERAPY CONTAINING HAMA MAY INTERFERE WITH THIS TEST RESULT. CORRELATION TO CLINICAL HISTORY AND PRESENTATION RECOMMENDED. 12/06/2023 12:1 5 AM CDT us [facility] Final Resul t [facility] [address] [place] [address], * (ABNORMAL) COMPREHENSIVE METABOLIC PANEL (12/06/2023 12:15 AM CDT) Pathologist [facility] GLUCOSE 152(H) 70 - 99 MG/DL 12/06/2023 12:53 AM CDT [facility] BUN 21(H) 7 - 18 MG/DL 12/06/2023 12:53 AM CDT [facility] CREATININE S/P/B 1.64(H) 0.7 - 1.3 MG/DL 12/06/2023 12:53 AM CDT [facility] SODIUM S/P/B 136 136 - 145 MMOL/L 12/06/2023 12:53 AM CDT [facility] POTASSIUM S/P/B 4.2 3.5 - 5.1 MMOL/L 12/06/2023 12:53 AM CDT [facility] CHLORIDE S/P/B 106 97 - 115 MMOL/L 12/06/2023 12:53 AM CDT [facility] CO2 23.1 21 - 32 MMOL/L 12/06/2023 12:53 AM CDT [facility] CALCIUM S/P/B 9.1 8.5 - 10.1 MG/DL 12/06/2023 12:53 AM CDT [facility] BILIRUBIN TOTAL S/P/B 0.9 0.2 - 1.2 MG/DL 12/06/2023 12:53 AM CDT [facility] Comment: THIS ASSAY IS NOT RECOMMENDED FOR PATIENTS UNDERGOING TREATMENT WITH ELTROMBOPAG DUE TO THE POTENTIAL FOR FALSELY ELEVATED RESULTS. TOTAL PROTEIN S/P/B 7.8 6.4 - 8.2 G/DL 12/06/2023 12:53 AM CDT [facility] ALBUMIN S/P/B 3.6 3.4 - 5.0 G/DL 12/06/2023 12:53 AM CDT [facility] AST 15 15 - 37 U/L 12/06/2023 12:53 AM CDT [facility] ALT 19 16 - 60 U/L 12/06/2023 12:53 AM CDT [facility] ALKALINE PHOSPHATASE S/P/B 76 50 - 136 U/L 12/06/2023 12:53 AM CDT [facility] ANION GAP 6.9 2 - 10 MMOL/L 12/06/2023 12:53 AM CDT [facility] BUN CREATININE RATIO 12.8 6 - 26 12/06/2023 12:53 AM T [facility] A/G RATIO 0.9(L) 1.0 - 2.0 RATIO 12/06/2023 12:53 AM T [facility] GFR ESTIMATE 43(L) >90 ML/MIN/1.7 3 M2 12/06/2023 12:53 AM T [facility] Comment: NOTE: eGFR is not [...] [facility] Final Resul t [facility] [address] [place] [address], [place] [phone] * (ABNORMAL) CBC W/DIFF AUTOMATED (12/06/2023 12:15 AM CDT) [facility] WBC 15.44(H) 4.5 - 11.0 x10'3/uL 12/06/2023 12:54 AM CDT [facility] RBC 4.05(L) 4.70 - 6.10 x10'6/uL 12/06/2023 12:54 AM CDT [facility] HGB 13.0(L) 14.0 - 18.0 G/DL 12/06/2023 12:54 AM CDT [facility] HCT 38.8(L) 43.0 - 54.0 % 12/06/2023 12:54 AM CDT [facility] MCV 95.8(H) 80.0 - 94.0 FL 12/06/2023 12:54 AM CDT [facility] MCH 32.1(H) 27.0 - 31.0 PG 12/06/2023 12:54 AM CDT [facility] MCHC 33.5 32.0 - 36.0 G/DL 12/06/2023 12:54 AM CDT [facility] RDW 14.4 11.5 - 14.5 % 12/06/2023 12:54 AM CDT [facility] PLT 232 130 - 400 x10'3/uL 12/06/2023 12:54 AM CDT [facility] MPV 9.5 9.3 - 12.2 FL 12/06/2023 12:54 AM CDT [facility] DIFFERENTIAL TYPE AUTOMATED DIFFERENTIAL 12/06/2023 12:54 AM CDT [facility] NEUTROPHILS % 84.1 % 12/06/2023 12:54 AM CDT [facility] LYMPHOCYTES % 7.6 % 12/06/2023 12:54 AM CDT [facility] MONOCYTES % 7.1 % 12/06/2023 12:54 AM CDT [facility] EOSINOPHILS 0.1 % 12/06/2023 12:54 AM CDT [facility] BASOPHILS 0.3 % 12/06/2023 12:54 AM CDT [facility] IMMATURE GRANS % 0.8 % 12/06/19 12:54 AM CDT [facility] ABS. NEUTROPHILS 12.98(H) 1.80 - 7.70 x10'3/uL 12/06/2023 12:54 AM CDT [facility] ABS. LYMPHOCYTES 1.18 1.00 - 4.80 x10'3/uL 12/06/2023 12:54 AM CDT [facility] ABS. MONOCYTES 1.10(H) 0.30 - 0.82 x10'3/uL 12/06/2023 12:54 AM CDT [facility] ABS. EOSINOPHILS 0.01(L) 0.04 - 0.54 x10'3/uL 12/06/2023 12:54 AM CDT [facility] ABS. BASOPHILS 0.04 0.01 - 0.08 x10'3/uL 12/06/2023 12:54 AM CDT [facility] ABS. IMMATURE GRANULOCYTES 0.13 0.00 - 0.49 x10'3/uL 12/06/2023 12:54 AM CDT [facility] 12/06/2023 12:1 5 AM CDT [facility] Final Resul t [facility] [address] [place] [address], * (ABNORMAL) URINALYSIS (12/06/2023 12:00 AM CDT) SPECIMEN TYPE URINE CLEAN CATCH 12/06/2023 12:00 AM T [facility] COLOR (U) LIGHT ORANGE 12/06/2023 12:16 AM T [facility] TRANSPARENCY EXTREMELY TURBID 12/06/2023 12:16 AM T [facility] SPECIFIC GRAVITY (U) 1.012 1.001 - 1.030 12/06/2023 12:16 AM T [facility] U PH 6.0 5.0 - 9.0 12/06/2023 12:16 AM T [facility] LEUKOCYTES (U) 500(A) NEGATIVE 12/06/2023 12:16 AM T [facility] NITRITES NEGATIVE NEGATIVE 12/06/2023 12:16 AM T [facility] PROTEIN RANDOM (U) 200(H) <30 MG/DL 12/06/2023 12:16 AM T [facility] GLUCOSE (U) NORMAL NORMAL MG/DL 12/06/2023 12:16 AM T [facility] KETONES MG/DL (U) NEGATIVE NEGATIVE MG/DL 12/06/2023 12:16 AM T [facility] UROBILINOGEN NORMAL NORMAL MG/DL 12/06/2023 12:16 AM T [facility] BILIRUBIN (U) NEGATIVE NEGATIVE MG/DL 12/06/2023 12:16 AM T [facility] BLOOD (U) 3+(A) NEGATIVE 12/06/2023 12:16 AM T [facility] MUCUS MANY /LPF 12/06/2023 12:16 AM T [facility] WBC/HPF >100(H) <6 /HPF 12/06/2023 12:16 AM CDT [facility] RBC/HPF >100(H) <6 /HPF 12/06/2023 12:16 AM CDT [facility] URINE SPECIMEN OBTAINED BY CLEAN CATCH PROCEDURE / Unknown 12/06/2023 us [facility] URINE ORDERABLES Final Resu lt [facility] [address] [place] [address], [place] [phone] documented in this encounter Visit Diagnoses Diagnosis [...] RN) documented in this encounter Care Teams Corporate Travel Expert Relationship Specialty Start Date End Date Nikky Reyes MD [address] [place] [address] PCP - General FAMILY PRACTICE 05/04/21 documented as of this encounter
--- OUTSIDE RECORDS SUMMARY | 2024-04-12 16:59 | XMS_ITS | Encounter Summary ---
Author Organization [facility] Address [address] [place] [address]. [place], [place] [phone] [place] [address] Care Team Providers Care X Ray Developing Machine Operator Name Role Phone Nikky Reyes MD Primary Care Provider Encounter Details Date Type Department Care Team (Late st Contact Info) Description 11/28/2023 8:40 AM CDT - 11/28/2023 11:59 PM T Hospital Encounter [facility] Diagnostic [place] [address] Kwaku Martin MD 3 [facility] [address] [place] [address] Discharge Disposition: Home or Self Care (Routine [...] on file Legal Sex Male 1:18 PM CVT RN Gender Identity Not on file Sexual Orientation [...] 9:57 AM Narrative 11/28/2023 9:58 AM CDT [address] [address] PROCEDURE: ??XR CHEST PA+LAT. ??11/28/2023 8:53 AM. [...] Procedure Note Richard Chaparro MD - 11/28/[address] [address] PROCEDURE: XR CHEST PA+LAT. 11/28/2023 8:53 AM. [...] hematuria documented in this encounter Care Teams X Ray Developing Machine Operator Relationship Specialty Start Date End Date Nikky Reyes MD [address] [place] [address] PCP - General FAMILY PRACTICE 05/04/21 documented as of this encounter
--- OUTSIDE RECORDS SUMMARY | 2024-04-12 16:59 | XMS_ITS | Encounter Summary ---
Author Organization [facility] Address [address] [place] [address]. [place], [place] [phone] [place] [address] Care Team Providers Care Application Development Liaison Name Role Phone Nikky Reyes MD Primary Care Provider Encounter Details Date Type Department Care Team (Late st Contact Info) Description 04/01/2024 Prep for Procedure [facility] [place], [place] [id number] Adelso Quiñones MD 3 [facility] [address] [place] [address] Social History Tobacco Use Types Packs/Day Years Used Date Smoking Tobacco: Former Cigarettes 2 15 S tarted: 1965 Smokeless Tobacco: Never Alcohol Use Standard Drinks/Week Comments Not Currently 0 (1 standard drink = 0.6 oz pur e alcohol) sober 45 years Sex and Gender Information Value Date Recorded Sex Assigned at Not on file Legal Sex Male 1:18 PM CONDUIT HELPER Gender Identity Not on file Sexual Orientation Not on file documented as of this encounter Plan of Treatment Not on file documented as of this encounter Results * (ABNORMAL) URINE BACTERIA CULTURE (04/02/2024 2:46 PM CONDUIT HELPER) SPEC DESCRIPTION URINE CLEAN CATCH 04/02/2024 2:47 PM CONDUIT HELPER [facility] SPECIAL REQUESTS NO SPECIAL REQUEST 04/02/2024 2:47 PM CONDUIT HELPER [facility] CULTURE RESULT >100,000 COL/ML STAPH. SPECIES NOT STAPH. AUREUS (A) 04/04/2024 8:02 AM CONDUIT HELPER [facility] URINE SPECIMEN OBTAINED BY CLEAN CATCH PROCEDURE / Unknown 04/02/2024 2:46 PM CONDUIT HELPER 04/02/2024 3:46 PM CONDUIT HELPER Narrative Organism Antibiotic Method Susceptibility Staph. species not staph. aureus NITROFURANTOIN NIRMALA (V ITEK) <=16: Sensitive Staph. species not staph. aureus LEVOFLOXACIN NIRMALA (VIT EK) 4: Resistant Staph. species not staph. aureus OXACILLIN NIRMALA (VIT EK) >=4: Resistant Staph. species not staph. aureus TRIMETH-SULFAMETH. SC C (VITEK) 20: Sensitive Staph. species not staph. aureus TETRACYCLINE NIRMALA (VIT EK) >=16: Resistant Staph. species not staph. aureus VANCOMYCIN NIRMALA (VIT EK) 2: Sensitive Adelso Quiñones MD MICROBIOLOGY - GENERAL ORDERABL ES Final Result [facility] [address] [place] [address], documented in this encounter Visit Diagnoses Diagnosis Bladder cancer (CMS/HCC HHS/HCC)- Primary Malignant neoplasm of bladder, part unspecified Hydronephrosis with ureteral stricture documented in this encounter Additional Health Concerns Infection Onset Date Last Indicated Resolved Time COVID-19 Rule Out 04/10/2024 04/10/2024 04/10/2024 1:35 PM CONDUIT HELPER Influenza - Seasonal 04/10/2024 04/10/2024 documented as of this encounter Care Teams Application Development Liaison Relationship Specialty Start Date End Date Nikky Reyes MD [address] [place] [address] PCP - General FAMILY PRACTICE 05/04/21 documented as of this encounter
--- OUTSIDE RECORDS SUMMARY | 2024-04-12 16:59 | XMS_ITS | Encounter Summary ---
Author Organization [facility] Address [address] [place] [address]. 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
--- OUTSIDE RECORDS SUMMARY | 2024-04-12 16:59 | XMS_ITS | Encounter Summary ---
Author Organization [facility] Address [address] [place] [address]. 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
--- OUTSIDE RECORDS SUMMARY | 2024-04-12 16:59 | XMS_ITS | Encounter Summary ---
Author Organization [facility] Address [address] [place] [address]. 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
--- OUTSIDE RECORDS SUMMARY | 2024-04-12 16:59 | XMS_ITS | Encounter Summary ---
Author Organization [facility] Address [address] [place] [address]. [place] [address] [place] [address] Care Team Providers Care Machining Supervisor Name Role Phone Nikky Reyes MD Primary Care Provider Reason for Visit * Auth/Cert (Routine) Specialty Diagnoses / Procedures Referred By Leatha mejia Referred To Contact Diagnoses GROSS HEMATURIA, 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, D49.4 Procedures CYSTOSCOPY, TRANSURETHRAL RESECTION BLADDER TUMOR, BILATERAL RETROGRADE PYELOGRAM, LEBRON CATHETER PLACEMENT, INTRAVESICAL INSTILLATION OF GEMCITABINE POSSIBLE URETEROSCOPY, POSSIBLE URETERAL STENT PLACEMENT Pato Cancino MD [facility] [address] [place] [address] Phone: tel: fax: Referral ID Status Reason Start Date Expiration Date Visits Re quested Visits Authorized [id number] 1 1 Encounter Details Date Type Department Care Team (Late st Contact Info) Description 12/05/2023 8:57 AM CDT - 12/05/2023 10:57 AM CDT Surgery [facility] [place] [address] Pato Cancino MD [facility] [address] [place] [phone] CYSTOSCOPY, TRANSURETHRAL RESECTION BLADDER TUMOR, RIGHT RETROGRADE [...] on file Legal Sex Male 1:18 PM OVERLOCK SLEEVE SETTER Gender Identity Not on file Sexual [...] minimize ureteral stent discomfort - Hydrocodone-Acetaminophen (AKA [place]) - this is a narcotic pain medication [...] work as you see fit. Pain: Try vdta-bgr-lypnmoj Tylenol or Ibuprofen first, if this doesn't [...] Transurethral Resection of Bladder Tumor Discharge Instructions (Cuban) * Ureteral Stent Discharge Instructions (Cuban) * General Anesthesia Discharge Instructions (Cuban) documented in this encounter Medications at Time [...] is an 73-year-old male with PMHx of CAD/[place] on ASA/Plavix, CHF, HTN, HLD, hypothyroidism who [...] chemotherapy (gemcitabine) - 2 grams IV Ancef senior talent management consultant to OR - Risks, benefits, alternatives discussed with patient. The patient expressed understanding and agreement to proceed - Plan for discharge home thereafter pending how patient does in recovery PATO CANCINO MD 12/05/2023 ---- Pato Cancino MD [facility] [place] [facility] Office and after-hours exchange phone number: [phone] documented in this encounter Nursing Notes * [...] Mitchell Rodriguez 12/05/2023 Surgeon(s): Pato Cancino MD Senior Animal Trainer: None Pre-Op Diagnosis: GROSS HEMATURIA, BLADDER TUMOR [...] Implant Name Type Inv. Item Serial No. Sas Developer Analyst Lot No. LRB No. Used Action STENT URETERAL BOSTON SCI CONTOUR VL 6FR X 22-30CM - [id number] Stent STENT URETERAL BOSTON SCI CONTOUR VL 6FR X 22-30CM Travolver [id number] Right 1 Implanted Procedure Description: After informed [...] A formal timeout was performed with Dr. aCncino in attendance to confirm the correct patient, site/laterality, and procedure and all were in agreement to proceed. To begin with, I sequentially dilated the patient's distalmost urethra with Hyman sounds from 20 Belgian to 30 Belgian in 2 Belgian increments. This was performed in order to save accommodate the resectoscope later on in the case. Afterwards, I atraumatically advanced a 22 Belgian rigid cystoscope tra nsurethrally to the patient's [...] of the wire then passed a 5 Belgian open-ended catheter up to the level of [...] the sensor wire I passed a 6 Belgian variable length double-J ureteral stent without strings [...] the resectoscope. I then advanced a 20 Belgian coud?? to a Lebron catheter transurethrally patient's [...] tolerance in past 6 months. Patient sees waiter/waitress room service and states he had testing this year, [...] EKG this year Do you see a waiter/waitress room service? Who is it? Dr Stafford at [facility]- see clearance- I did request recent [...] 1:15 PM Narrative 12/05/2023 1:15 PM CDT [place] [address] FLUOROSCOPY CONTROL ONLY Procedure Note Marco A Baez MD - 12/05/2023 [place] [address] FLUOROSCOPY CONTROL ONLY Impression: No radiologic interpretation will be issued. The report and documentationof this exam will reside in the patient's permanent medical record and inthe attending physician's procedure note. Ordered By: PATO CANCINO Interpreted By: Marco A Baez MD, 12/05/2023 1:15 PM us Pato Cancino MD IMAGES ONLY Final R esult * Pathology (12/05/2023 10:13 AM CDT) PATHOLOGY [facility] ? Department of Laboratory Medicine ?[address] ?[place] [address] ? , extension [phone] ? Pathology Report ? Surgical Pathology Report Name: MITCHELL RODRIGUEZ ? Specimen #: [id number] Age: 11 1950 (Age: 73) ?Location: [facility] Sex: M ?Procedure Date: 12/05/2023 Hospital #: [id number] ?Date Received: 12/05/2023 Date Reported: 12/08/2023 Provider: [...] interpretation, and sign out were performed at [facility], [address] [facility], [place] [address]. FINAL DIAGNOSIS: A. ??Bladder, superficial tumor, resection: [...] Electronically Signed Out ? LUC BURDEN MD [facility] TISSUE URINARY BLADDER STRUCTURE / Unknown 12/05/2023 10:13 AM CDT us Pato Cancino MD PATHOLOGY/CYTOLOGY CRISTINA PHAN Final Result [facility] [address] [place] [address], [id number] * ECG 12 lead (12/05/2023 7:41 AM CDT) 12/05/2023 7:[address] [facility] ([facility] - 12/05/2023 4:24 PM CDT ?[facility] ? [address] [place] ? Test Date: ?2023-12-05 Pat Name: ? MITCHELL RODRIGUEZ ? Department: ?? 40 ? Room: ? ODS Gender: ? Male ? Toggler: ?? : ?1950 ? Requested By: PATO BETEXNARINDER Order Number: [id number] ? Reading MD: ?? Yazan Montoya ? Measurements Intervals ?[place] ? Rate: ? 52 ? P: ?65 MT: ? 183 ?QRS: ?-51 QRSD: ? 165 ?T: ?1 QT: ? 465 ? QTc: ?433 ? Interpretive Statements SINUS BRADYCARDIA RIGHT BUNDLE BRANCH BLOCK ??[120+ ms QRS DURATION, UPRIGHT V1, 40+ ms S IN I/aVL/V4/V5/V6] LEFT ANTERIOR FASCICULAR BLOCK ??[QRS AXIS <= -45, QR IN I, RS IN II] No previous ECG available for comparison Procedure Note Yazan Montoya MD - 12/05/[address] [place] Test Date: 2023-12-05 Pat Name: MITCHELL RODRIGUEZ Department: 40 Room: [facility] Gender: Male Toggler: : 1950 Requested By: PATO CANCINO Order Number: [id number] Reading MD: Yazan Montoya Measurements Intervals [place] Rate: 52 P: 65 MT: 183 QRS: -51 QRSD: 165 T: 1 QT: 465 QTc: 433 Interpretive Statements SINUS BRADYCARDIA RIGHT BUNDLE BRANCH BLOCK [120+ ms QRS DURATION, UPRIGHT V1, 40+ ms SIN I/aVL/V4/V5/V6] LEFT ANTERIOR FASCICULAR BLOCK [QRS AXIS <= -45, QR IN I, RS IN II] No previous ECG available for comparison us Pato Cancino MD ECG ORDERABLES Final R esult [facility] documented in this encounter Visit Diagnoses [...] (COMPLETED) 2 g, Intravenous, at 400 mL/hr, body recall instructor to O.R., 1 dose, First dose on [...] MD) documented in this encounter Care Teams Machining Supervisor Relationship Specialty Start Date End Date Nikky Reyes MD [address] [place] [address] PCP - General FAMILY PRACTICE 05/04/21 documented as of this encounter
--- OUTSIDE RECORDS SUMMARY | 2024-04-12 16:59 | XMS_ITS | Encounter Summary ---
Author Organization [facility] Address [address] [place] [address]. 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
--- OUTSIDE RECORDS SUMMARY | 2024-04-12 16:59 | XMS_ITS | Encounter Summary ---
Author Organization [facility] Address [address] [place] [address]. [place], [place] [address] [place] [address] Care Team Providers Care Paper Slitter Name Role Phone Nikky Reyes MD Primary Care Provider Encounter Details Date Type Department Care Team (Late st Contact Info) Description 04/02/2024 2:45 PM ASSISTANT DEAN OF STUDENTS - 04/02/2024 11:59 PM [facility] Hospital Encounter [facility] [place] [address] Adelso Quiñones MD [address] [facility] [address] [place] [address] Discharge Disposition: Home or Self Care (Routine [...] on file Legal Sex Male 1:18 PM ASSISTANT DEAN OF STUDENTS Gender Identity Not on file Sexual Orientation [...] URINE BACTERIA CULTURE Routine 04/02/2024 2:46 PM ASSISTANT DEAN OF STUDENTS Bladder cancer ([facility]) Hydronephrosis with ureteral stricture documented in this encounter Results * (ABNORMAL) URINE BACTERIA CULTURE (04/02/2024 2:46 PM ASSISTANT DEAN OF STUDENTS) SPEC DESCRIPTION URINE CLEAN CATCH 04/02/2024 2:47 PM ASSISTANT DEAN OF STUDENTS [facility] SPECIAL REQUESTS NO SPECIAL REQUEST 04/02/2024 2:47 PM ASSISTANT DEAN OF STUDENTS [facility] CULTURE RESULT >100,000 COL/ML STAPH. SPECIES NOT STAPH. AUREUS (A) 04/04/2024 8:02 AM ASSISTANT DEAN OF STUDENTS [facility] URINE SPECIMEN OBTAINED BY CLEAN CATCH PROCEDURE / Unknown 04/02/2024 2:46 PM ASSISTANT DEAN OF STUDENTS 04/02/2024 3:46 PM ASSISTANT DEAN OF STUDENTS Narrative Organism Antibiotic Method Susceptibility Staph. species not staph. aureus NITROFURANTOIN NIRMALA (V ITEK) <=16: Sensitive Staph. species not staph. aureus LEVOFLOXACIN NIRMALA (VIT EK) 4: Resistant Staph. species not staph. aureus OXACILLIN NIRMALA (VIT EK) >=4: Resistant Staph. species not staph. aureus TRIMETH-SULFAMETH. DC C (VITEK) 20: Sensitive Staph. species not staph. aureus TETRACYCLINE NIRMALA (VIT EK) >=16: Resistant Staph. species not staph. aureus VANCOMYCIN NIRMALA (VIT EK) 2: Sensitive Adelso Quiñones MD MICROBIOLOGY - GENERAL ORDERABL ES Final Result [facility] [address] [place] [address], documented in this encounter Visit Diagnoses Diagnosis Bladder cancer (CMS/HCC HHS/HCC) Malignant neoplasm of bladder, part unspecified Hydronephrosis with ureteral stricture documented in this encounter Care Teams Paper Slitter Relationship Specialty Start Date End Date Nikky Reyes MD [address] [place] [address] PCP - General FAMILY PRACTICE 05/04/21 documented as of this encounter
--- OUTSIDE RECORDS SUMMARY | 2024-04-12 16:59 | XMS_ITS | Encounter Summary ---
Author Organization [facility] Address [address] [place] [address]. [place] [address] [place] [address] Care Team Providers Care Film Spooler Name Role Phone Nikky Reyes MD Primary Care Provider Reason for Visit * Auth/Cert (Routine) Specialty Diagnoses / Procedures Referred By Contac t Referred To Contact Diagnoses GROSS HEMATURIA, 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, D49.4 Procedures CYSTOSCOPY, TRANSURETHRAL RESECTION BLADDER TUMOR, BILATERAL RETROGRADE PYELOGRAM, LEBRON CATHETER PLACEMENT, INTRAVESICAL INSTILLATION OF GEMCITABINE POSSIBLE URETEROSCOPY, POSSIBLE URETERAL STENT PLACEMENT Kwaku Martin MD [address] [facility] [address] [facility] [place] [address] Phone: tel: fax: Referral ID Status Reason Start Date Expiration Date Visits Re quested Visits Authorized [id number] 1 1 Encounter Details Date Type Department Care Team (Late st Contact Info) Description 12/05/2023 9:13 AM CDT Anesthesia [place] [address] Moises Ewing MD [address] [place] [address] Wandy Pinon FNP [address] [place] [address] Anesthesia Record Procedure Summary Procedure Name Responsible Anesthesiologist Anesthesia Start Time Anesthesia Stop Time CYSTOSCOPY, TRANSURETHRAL RESECTION BLADDER TUMOR, RIGHT RETROGRADE PYELOGRAM, RIGHT URETERAL STENT PLACEMENT, LEBRON CATHETER PLACEMENT, INTRAVESICAL INSTILLATION OF GEMCITABINE (Right: Bladder) Moises Ewing MD 12/05/23 0913 12/05/23 1045 Events Date Time Event Comment 12/05/2023 0823 0823 AN Anesthesia Prepped 0855 AN HEALTH CLAIMS EXAMINER Prepped 0913 An Start Patient ID and consent checked and patient reassessed. JONATHON Vázquez introduced to the patient and the patient verbally consents for the SRNA to participate in all appropriate aspects of perioperative care under the direct supervision of the HEALTH CLAIMS EXAMINER. HEALTH CLAIMS EXAMINER remains present for continuous supervision of the [...] No; Urologic Surgical intervention - Bladder, Prostate, CONTRACTING SUPPORT SPECIALIST procedures; 1; Lebron care post catheter insertion, [...] on file Legal Sex Male 1:18 PM UAT TESTER Gender Identity Not on file Sexual [...] sleep apnea, asthma Cardiovascular (+) hypertension, past OK, CAD, (Stent), hyperlipidemia Neuro/Psych (-) no seizures, [...] No date: Bladder tumor No date: Cancer ([facility]) No date: CHF (congestive heart failure) ([facility]) Comment: high 40s EF per pt No date: Coronary artery disease No date: Depression Comment: in past No date: Heart attack ([facility]) Comment: x3- last around 2020 per pt- [...] IVPB 2 g, Intravenous, at 400 mL/hr, call out clerk to O.R., 1 dose, First dose on [...] mg documented in this encounter Care Teams Film Spooler Relationship Specialty Start Date End Date Nikky Reyes MD [address] [place] [address] PCP - General FAMILY PRACTICE 05/04/21 documented as of this encounter
--- OUTSIDE RECORDS SUMMARY | 2024-04-12 16:59 | XMS_ITS | Encounter Summary ---
Author Organization [facility] Address [address] [place] [address]. [place], [place] [address] [place] [address] Care Team Providers Care Special Education Teacher Name Role Phone Nikky Reyes MD Primary Care Provider Reason for Visit * Auth/Cert (Routine) Specialty Diagnoses / Procedures Referred By Leatha t Referred To Contact Diagnoses GROSS HEMATURIA, 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, D49.4 Procedures CYSTOSCOPY, TRANSURETHRAL RESECTION BLADDER TUMOR, BILATERAL RETROGRADE PYELOGRAM, LEBRON CATHETER PLACEMENT, INTRAVESICAL INSTILLATION OF GEMCITABINE POSSIBLE URETEROSCOPY, POSSIBLE URETERAL STENT PLACEMENT Pato Cancino MD [address] [facility] [address] [place] [address] Phone: tel: fax: Referral ID Status Reason Start Date Expiration Date Visits Re quested Visits Authorized [id number] 1 1 Encounter Details Date Type Department Care Team (Late st Contact Info) Description 12/05/2023 6:55 AM CDT - 12/05/2023 12:40 PM T Hospital Encounter 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 Pain: Try clnl-pzx-ehburor Tylenol or Ibuprofen first, if this doesn't [...] Transurethral Resection of Bladder Tumor Discharge Instructions (Italian) * Ureteral Stent Discharge Instructions (Italian) * General Anesthesia Discharge Instructions (Italian) documented in this encounter Medications at Time [...] is an 73-year-old male with PMHx of CAD/[place] on ASA/Plavix, CHF, HTN, HLD, hypothyroidism who [...] Medical History: Diagnosis Date Bladder tumor Cancer ([facility]) CHF (congestive heart failure) ([facility]) high 40s EF per pt Coronary artery disease Depression in past Heart attack ([facility]) x3- last around 2020 per pt- 2 [...] chemotherapy (gemcitabine) - 2 grams IV Ancef housing liaison to OR - Risks, benefits, alternatives discussed with patient. The patient expressed understanding and agreement to proceed - Plan for discharge home thereafter pending how patient does in recovery PATO CANCINO MD 12/05/2023 ---- Pato Cancino MD [facility] [place] Office and after-hours exchange phone number: [phone] documented in this encounter Nursing Notes * [...] Procedure Note Mitchell Rodriguez 12/05/2023 Surgeon(s): Pato Cancnio MD Tank Shop Supervisor: None Pre-Op Diagnosis: GROSS HEMATURIA, BLADDER TUMOR [...] Implant Name Type Inv. Item Serial No. Brush Operator Lot No. LRB No. Used Action STENT URETERAL BOSTON SCI CONTOUR VL 6FR X 22-30CM - [id number] Stent STENT URETERAL BOSTON SCI CONTOUR VL 6FR X 22-30CM Stampt [id number] Right 1 Implanted Procedure Description: After informed [...] distalmost urethra with Hyman sounds from 20 Senegalese to 30 Senegalese in 2 Senegalese increments. This was performed in order to save accommodate the resectoscope later on in the case. Afterwards, I atraumatically advanced a 22 Senegalese rigid cystoscope tra nsurethrally to the patient's [...] of the wire then passed a 5 Senegalese open-ended catheter up to the level of [...] the sensor wire I passed a 6 Senegalese variable length double-J ureteral stent without strings [...] the resectoscope. I then advanced a 20 Senegalese coud?? to a Lebron catheter transurethrally patient's [...] tolerance in past 6 months. Patient sees radial router operator and states he had testing this year, [...] EKG this year Do you see a radial router operator? Who is it? Dr Stafford at [facility]- see clearance- I did request recent [...] 1:15 PM Narrative 12/05/2023 1:15 PM CDT [address] [address] FLUOROSCOPY CONTROL ONLY Procedure Note Marco A Baez MD - 12/05/2023 [address] [place] [address] FLUOROSCOPY CONTROL ONLY Impression: No radiologic interpretation will be issued. The report and documentationof this exam will reside in the patient's permanent medical record and inthe attending physician's procedure note. Ordered By: PATO CANCINO Interpreted By: Marco A Baez MD, 12/05/2023 1:15 PM us Pato Cancino MD IMAGES ONLY Final R esult * Pathology (12/05/2023 10:13 AM CDT) PATHOLOGY [facility] ? Department of Laboratory Medicine ?[address] [facility] ?[place] [address] ? , extension [phone] ? Pathology Report ? Surgical Pathology Report Name: MITCHELL RODRIGUEZ ? Specimen #: [id number] Age: 11 1950 (Age: 73) ?Location: [facility] Sex: M ?Procedure Date: 12/05/2023 [facility] #: [id number] ?Date Received: 12/05/2023 Date Reported: 12/08/2023 Provider: [...] interpretation, and sign out were performed at [facility], [address] [place] [address]. FINAL DIAGNOSIS: A. ??Bladder, superficial tumor, resection: [...] Electronically Signed Out ? LUC BURDEN MD [facility] TISSUE URINARY BLADDER STRUCTURE / Unknown 12/05/2023 10:13 AM CDT Pato Cancino MD PATHOLOGY/CYTOLOGY CRISTINA PHAN Final Result [facility] [address] [place] [address], [id number] * ECG 12 lead (12/05/2023 7:41 AM CDT) 12/05/2023 7:41 AM CDT Narrative [facility] - 12/05/2023 4:24 PM CDT ?[facility] ? [address] [place] ? Test Date: ?2023-12-05 Pat Name: ? MITCHELL RODRIGUEZ ? Department: ?? 40 ? Room: ? ODS Gender: ? Male ? Floor Mechanic: ?? : ?1950 ? Requested By: PATO CANCINO Order Number: [id number] ? Reading MD: ?? Yazan Montoya ? Measurements Intervals ?[place] ? Rate: ? 52 ? P: ?65 FL: ? 183 ?QRS: ?-51 QRSD: ? 165 ?T: ?1 QT: ? 465 ? QTc: ?433 ? Interpretive Statements SINUS BRADYCARDIA RIGHT BUNDLE BRANCH BLOCK ??[120+ ms QRS DURATION, UPRIGHT V1, 40+ ms S IN I/aVL/V4/V5/V6] LEFT ANTERIOR FASCICULAR BLOCK ??[QRS AXIS <= -45, QR IN I, RS IN II] No previous ECG available for comparison Procedure Note Yazan Montoya MD - 12/05/[address] Test Date: 2023-12-05 Pat Name: MITCHELL RODRIGUEZ Department: 40 Room: ODS Gender: Male Floor Mechanic: : 1950 Requested By: PATO CANCINO Order Number: [id number] Reading MD: Yazan Montoya Measurements Intervals [place] Rate: 52 P: 65 FL: 183 QRS: -51 QRSD: 165 T: 1 QT: 465 QTc: 433 Interpretive Statements SINUS BRADYCARDIA RIGHT BUNDLE BRANCH BLOCK [120+ ms QRS DURATION, UPRIGHT V1, 40+ ms SIN I/aVL/V4/V5/V6] LEFT ANTERIOR FASCICULAR BLOCK [QRS AXIS <= -45, QR IN I, RS IN II] No previous ECG available for comparison us Pato Cancino MD ECG ORDERABLES Final R esult [facility] documented in this encounter Visit Diagnoses [...] (COMPLETED) 2 g, Intravenous, at 400 mL/hr, locomotive engineer electric to O.R., 1 dose, First dose on [...] MD) documented in this encounter Care Teams Special Education Teacher Relationship Specialty Start Date End Date Nikky Reyes MD [address] [place] [address] PCP - General FAMILY PRACTICE 05/04/21 documented as of this encounter
--- OUTSIDE RECORDS SUMMARY | 2024-04-12 17:00 | XMS_ITS | Encounter Summary ---
Author Organization [facility] Address [address] [place] [address]. [place], [place] [address] [place] [address] Care Team Providers Care Wallpaper Scraper Name Role Phone Nikky Reyes MD Primary Care Provider Encounter Details Date Type Department Care Team (Late st Contact Info) Description 11/27/2023 Prep for Procedure [facility] [address] [facility] [place], [place] [id number] Kwaku Martin MD 3 [facility] [address] [place], [place] [phone] Social History Tobacco Use Types Packs/Day Years Used Date Smoking Tobacco: Former Cigarettes 2 15 S tarted: 1965 Smokeless Tobacco: Never Alcohol Use Standard Drinks/Week Comments Not Currently 0 (1 standard drink = 0.6 oz pur e alcohol) sober 45 years Sex and Gender Information Value Date Recorded Sex Assigned at Not on file Legal Sex Male 1:18 PM RN OR LPN Gender Identity Not on file Sexual Orientation [...] 9:57 AM Narrative 11/28/2023 9:58 AM CDT [address] [address] PROCEDURE: ??XR CHEST PA+LAT. ??11/28/2023 8:53 AM. [...] Procedure Note Richard Chaparro MD - 11/28/[address] [address] PROCEDURE: XR CHEST PA+LAT. 11/28/2023 8:53 AM. [...] Rule Out 04/10/2024 04/10/2024 04/10/2024 1:35 PM RN OR LPN Influenza - Seasonal 04/10/2024 04/10/2024 documented as of this encounter Care Teams Wallpaper Scraper Relationship Specialty Start Date End Date Nikky Reyes MD [address] [place] [address] PCP - General FAMILY PRACTICE 05/04/21 documented as of this encounter
--- OUTSIDE RECORDS SUMMARY | 2024-04-12 17:00 | XMS_ITS | Encounter Summary ---
Author Organization [facility] [place] [facility] Address [address] [place] [address]. [place], [place] [address] [place] [address] Care Team Providers Care Polish Compounder Name Role Phone Nikky Reyes MD Primary Care Provider Encounter Details Date Type Department Care Team (Latest Contact Info) Description 05/04/2021 Travel Social History Tobacco Use Types Packs/Day Years Used Date Smoking Tobacco: Never Assessed Sex and Gender Information Value Date Recorded Sex Assigned at Not on file Legal Sex Male 1:18 PM RAG ROOM SUPERVISOR Gender Identity Not on file Sexual Orientation Not on file COVID-19 Exposure Response Date Recorded In the last 10 days, have yo u been in contact with someone who was confirmed or suspected to have Coronavirus/COVID-19? No / Unsure 05/04/2021 9:48 AM RAG ROOM SUPERVISOR documented as of this encounter Plan of Treatment Not on file documented as of this encounter Visit Diagnoses Not on filedocumented in this encounter Care Teams Polish Compounder Relationship Specialty Start Date End Date Nikky Reyes MD [address] [place] [address] PCP - General FAMILY PRACTICE 05/04/21 documented as of this encounter
--- OUTSIDE RECORDS SUMMARY | 2024-04-12 17:00 | XMS_ITS | Encounter Summary ---
Author Organization [facility] Address [address] [place] [address]. [place], [place] [address] [place] [address] Care Team Providers Care Instrument Man Name Role Phone Unavailable Primary Care Provider Unavailabl e Encounter Details Date Type Department Care Team (Late st Contact Info) Description 05/16/2020 Orders Only [facility] [place] [address] Phu Maddox MD Social History Tobacco Use Types Packs/Day Years Used Date Smoking Tobacco: Never Assessed Sex and Gender Information Value Date Recorded Sex Assigned at Not on file Legal Sex Male 1:18 PM IRRIGATION FOREMAN Gender Identity Not on file Sexual Orientation Not on file documented as of this encounter Plan of Treatment Not on file documented as of this encounter Visit Diagnoses Not on filedocumented in this encounter
--- OUTSIDE RECORDS SUMMARY | 2024-04-12 17:00 | XMS_ITS | Encounter Summary ---
Author Organization [facility] Address [address] [place] [address]. 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 SPECIES NOT STAPH. AUREUS (A) 11/30/2023 9:35 AM CDT [facility] URINE SPECIMEN OBTAINED BY CLEAN CATCH PROCEDURE / Unknown 11/28/2023 8:45 AM CDT 11/28/2023 8:56 AM CDT Narrative Organism Antibiotic Method Susceptibility Staph. species not staph. aureus NITROFURANTOIN NIRMALA (V ITEK) <=16: Sensitive Staph. species not staph. aureus LEVOFLOXACIN NIRMALA (VIT EK) 4: Resistant Staph. species not staph. aureus OXACILLIN NIRMALA (VIT EK) >=4: Resistant Staph. species not staph. aureus TRIMETH-SULFAMETH. TN C (VITEK) 20: Sensitive Staph. species not staph. aureus TETRACYCLINE NIRMALA (VIT EK) >=16: Resistant Staph. species not staph. aureus VANCOMYCIN NIRMALA (VIT EK) 2: Sensitive us Kwaku Martin MD MICROBIOLOGY - GENERAL ORDERABLES Final Result [facility] [address] [place] [address], * (ABNORMAL) URINALYSIS (11/28/2023 8:45 AM CDT) SPECIMEN TYPE URINE CLEAN CATCH 11/28/2023 8:53 AM CDT [facility] COLOR (U) YELLOW 11/28/2023 9:11 AM T [facility] TRANSPARENCY TURBID 11/28/2023 9:11 AM T [facility] SPECIFIC GRAVITY (U) 1.014 1.001 - 1.030 11/28/2023 9:11 AM T [facility] U PH 5.5 5.0 - 9.0 11/28/2023 9:11 AM T [facility] LEUKOCYTES (U) 500(A) NEGATIVE 11/28/2023 9:11 AM T [facility] NITRITES 1+(A) NEGATIVE 11/28/2023 9:11 AM T [facility] PROTEIN RANDOM (U) 70(H) <30 MG/DL 11/28/2023 9:11 AM T [facility] GLUCOSE (U) NORMAL NORMAL MG/DL 11/28/2023 9:11 AM T [facility] KETONES MG/DL (U) NEGATIVE NEGATIVE MG/DL 11/28/2023 9:11 AM T [facility] UROBILINOGEN NORMAL NORMAL MG/DL 11/28/2023 9:11 AM T [facility] BILIRUBIN (U) NEGATIVE NEGATIVE MG/DL 11/28/2023 9:11 AM T [facility] BLOOD (U) 3+(A) NEGATIVE 11/28/2023 9:11 AM T [facility] MUCUS RARE /LPF 11/28/2023 9:11 AM T [facility] WBC/HPF >100(H) <6 /HPF 11/28/2023 9:11 AM T [facility] WBC CLUMPS PRESENT 11/28/2023 9:11 AM CDT [facility] RBC/HPF 21(H) <6 /HPF 11/28/2023 9:11 AM CDT [facility] BACTERIA (U) MODERATE(A) NONE /HPF 11/28/2023 9:11 AM CDT [facility] URINE SPECIMEN OBTAINED BY CLEAN CATCH PROCEDURE / Unknown 11/28/2023 8:45 AM CDT us Kwaku Martin MD URINE ORDERABLES Final Result [facility] [address] [place] [address], * (ABNORMAL) BASIC METABOLIC PANEL (11/28/2023 8:43 AM CDT) GLUCOSE 110(H) 70 - 99 MG/DL 11/28/2023 10:22 AM CDT [facility] BUN 12 7 - 18 MG/DL 11/28/2023 10:22 AM CDT [facility] CREATININE S/P/B 1.19 0.7 - 1.3 MG/DL 11/28/2023 10:22 AM CDT [facility] SODIUM S/P/B 138 136 - 145 MMOL/L 11/28/2023 10:22 AM CDT [facility] POTASSIUM S/P/B 3.5 3.5 - 5.1 MMOL/L 11/28/2023 10:22 AM CDT [facility] CHLORIDE S/P/B 106 97 - 115 MMOL/L 11/28/2023 10:22 AM CDT [facility] CO2 27.4 21 - 32 MMOL/L 11/28/2023 10:22 AM CDT [facility] CALCIUM S/P/B 9.2 8.5 - 10.1 MG/DL 11/28/2023 10:22 AM CDT [facility] ANION GAP 4.6 2 - 10 MMOL/L 11/28/2023 10:22 AM CDT [facility] BUN CREATININE RATIO 10.1 6 - 26 11/28/2023 10:22 AM CDT [facility] GFR ESTIMATE 64(L) >90 ML/MIN/1.7 3 M2 11/28/2023 10:22 AM CDT [facility] Comment: NOTE: eGFR is not [...] Kwaku Martin MD LABORATORY Final R esult [facility] [address] [place] [address], * (ABNORMAL) CBC W/DIFF AUTOMATED (11/28/2023 8:43 AM CDT) WBC 7.86 4.5 - 11.0 x10'3/uL 11/28/2023 9:12 AM CDT [facility] RBC 4.08(L) 4.70 - 6.10 x10'6/uL 11/28/2023 9:12 AM CDT [facility] HGB 13.1(L) 14.0 - 18.0 G/DL 11/28/2023 9:12 AM CDT [facility] HCT 39.3(L) 43.0 - 54.0 % 11/28/2023 9:12 AM CDT [facility] MCV 96.3(H) 80.0 - 94.0 FL 11/28/2023 9:12 AM CDT [facility] MCH 32.1(H) 27.0 - 31.0 PG 11/28/2023 9:12 AM CDT [facility] MCHC 33.3 32.0 - 36.0 G/DL 11/28/2023 9:12 AM CDT [facility] RDW 14.4 11.5 - 14.5 % 11/28/2023 9:12 AM CDT [facility] PLT 236 130 - 400 x10'3/uL 11/28/2023 9:12 AM CDT [facility] MPV 9.3 9.3 - 12.2 FL 11/28/2023 9:12 AM CDT [facility] DIFFERENTIAL TYPE AUTOMATED DIFFERENTIAL 11/28/2023 9:12 AM CDT [facility] NEUTROPHILS % 67.3 % 11/28/2023 9:12 AM CDT [facility] LYMPHOCYTES % 17.9 % 11/28/2023 9:12 AM CDT [facility] MONOCYTES % 11.6 % 11/28/2023 9:12 AM CDT [facility] EOSINOPHILS 2.2 % 11/28/2023 9:12 AM CDT [facility] BASOPHILS 0.6 % 11/28/2023 9:12 AM CDT [facility] IMMATURE GRANS % 0.4 % 11/28/19 9:12 AM CDT [facility] ABS. NEUTROPHILS 5.29 1.80 - 7.70 x10'3/uL 11/28/2023 9:12 AM CDT [facility] ABS. LYMPHOCYTES 1.41 1.00 - 4.80 x10'3/uL 11/28/2023 9:12 AM CDT [facility] ABS. MONOCYTES 0.91(H) 0.30 - 0.82 x10'3/uL 11/28/2023 9:12 AM CDT [facility] ABS. EOSINOPHILS 0.17 0.04 - 0.54 x10'3/uL 11/28/2023 9:12 AM CDT [facility] ABS. BASOPHILS 0.05 0.01 - 0.08 x10'3/uL 11/28/2023 9:12 AM CDT [facility] ABS. IMMATURE GRANULOCYTES 0.03 0.00 - 0.49 x10'3/uL 11/28/2023 9:12 AM CDT [facility] 11/28/2023 8:43 AM CDT us Kwaku Martin MD LABORATORY Final R esult [facility] [address] [place] [address], documented in this encounter Visit Diagnoses Diagnosis Gross hematuria Bladder tumor Neoplasm of unspecified nature of bladder documented in this encounter Care Teams Mix Technician Relationship Specialty Start Date End Date Nikky Reyes MD [address] [place] [address] PCP - General FAMILY PRACTICE 05/04/21 documented as of this encounter
--- OUTSIDE RECORDS SUMMARY | 2024-04-12 17:00 | XMS_ITS | Encounter Summary ---
Author Organization [facility] Address [address] [place] [address]. [place], [place] [address] [place] [address] Care Team Providers Care Customer Success Advocate Name Role Phone Nikky Reyes MD Primary Care Provider Reason for Visit * Reason Onset Date Comments Appointment Request 02/11/2023 Encounter Details Date Type Department Care Team (Late st Contact Info) Description 02/11/2023 Telephone [facility] [address] [facility] [address] [place], [place] [address] Gatito Lopez MD Three [facility]. 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 OARCHAEOLOGIST documented in this encounter Plan of Treatment Not on file documented as of this encounter Visit Diagnoses Not on filedocumented in this encounter Care Teams Customer Success Advocate Relationship Specialty Start Date End Date Nikky Reyes MD [address] [place] [address] PCP - General FAMILY PRACTICE 05/04/21 documented as of this encounter
--- OUTSIDE RECORDS SUMMARY | 2024-04-12 17:00 | XMS_ITS | Encounter Summary ---
Author Organization [facility] Address [address] [place] [address]. [place], [place] [address] [place] [address] Care Team Providers Care Electrician Control Equipment Name Role Phone Nikky Reyes MD Primary Care Provider Encounter Details Date Type Department Care Team (Late st Contact Info) Description 11/27/2023 Prep for Procedure [facility] [address] [place], [place] [address] Kwaku Martin MD 3 [facility] [address] [place], [place] [address] Social History Tobacco Use Types Packs/Day Years Used Date Smoking Tobacco: Former Cigarettes 2 15 S tarted: 1967 Smokeless Tobacco: Never Alcohol Use Standard Drinks/Week Comments Not Currently 0 (1 standard drink = 0.6 oz pur e alcohol) sober 45 years Sex and Gender Information Value Date Recorded Sex Assigned at Not on file Legal Sex Male 1:18 PM SYSTEMS AUDITOR Gender Identity Not on file Sexual Orientation Not on file documented as of this encounter Plan of Treatment Not on file documented as of this encounter Results * (ABNORMAL) URINE BACTERIA CULTURE (11/28/2023 8:45 AM CDT) SPEC DESCRIPTION URINE CLEAN CATCH 11/28/2023 8:53 AM CDT [facility] SPECIAL REQUESTS NO SPECIAL REQUEST 11/28/2023 8:53 AM CDT [facility] CULTURE RESULT >100,000 COL/ML STAPH. SPECIES NOT STAPH. AUREUS (A) 11/30/2023 9:35 AM CDT [facility] URINE SPECIMEN OBTAINED BY CLEAN CATCH PROCEDURE / Unknown 11/28/2023 8:45 AM CDT 11/28/2023 8:56 AM CDT Narrative Organism Antibiotic Method Susceptibility Staph. species not staph. aureus NITROFURANTOIN NIRMALA (V ITEK) <=16: Sensitive Staph. species not staph. aureus LEVOFLOXACIN NIRMALA (VIT EK) 4: Resistant Staph. species not staph. aureus OXACILLIN NIRMALA (VIT EK) >=4: Resistant Staph. species not staph. aureus TRIMETH-SULFAMETH. MD C (VITEK) 20: Sensitive Staph. species not staph. aureus TETRACYCLINE NIRMALA (VIT EK) >=16: Resistant Staph. species not staph. aureus VANCOMYCIN NIRMALA (VIT EK) 2: Sensitive Kwaku Martin MD MICROBIOLOGY - GENERAL ORDERABLES Final Result [facility] [address] [place] [address], * (ABNORMAL) URINALYSIS (11/28/2023 8:45 AM CDT) SPECIMEN TYPE URINE CLEAN CATCH 11/28/2023 8:53 AM CDT [facility] COLOR (U) YELLOW 11/28/2023 9:11 AM CDT [facility] TRANSPARENCY TURBID 11/28/2023 9:11 AM CDT [facility] SPECIFIC GRAVITY (U) 1.014 1.001 - 1.030 11/28/2023 9:11 AM CDT [facility] U PH 5.5 5.0 - 9.0 11/28/2023 9:11 AM CDT [facility] LEUKOCYTES (U) 500(A) NEGATIVE 11/28/2023 9:11 AM CDT [facility] NITRITES 1+(A) NEGATIVE 11/28/2023 9:11 AM CDT [facility] PROTEIN RANDOM (U) 70(H) <30 MG/DL 11/28/2023 9:11 AM CDT [facility] GLUCOSE (U) NORMAL NORMAL MG/DL 11/28/2023 9:11 AM CDT [facility] KETONES MG/DL (U) NEGATIVE NEGATIVE MG/DL 11/28/2023 9:11 AM CDT [facility] UROBILINOGEN NORMAL NORMAL MG/DL 11/28/2023 9:11 AM CDT [facility] BILIRUBIN (U) NEGATIVE NEGATIVE MG/DL 11/28/2023 9:11 AM CDT [facility] BLOOD (U) 3+(A) NEGATIVE 11/28/2023 9:11 AM CDT [facility] MUCUS RARE /LPF 11/28/2023 9:11 AM CDT [facility] WBC/HPF >100(H) <6 /HPF 11/28/2023 9:11 AM CDT [facility] WBC CLUMPS PRESENT 11/28/2023 9:11 AM CDT [facility] RBC/HPF 21(H) <6 /HPF 11/28/2023 9:11 AM CDT [facility] BACTERIA (U) MODERATE(A) NONE /HPF 11/28/2023 9:11 AM CDT [facility] URINE SPECIMEN OBTAINED BY CLEAN CATCH PROCEDURE / Unknown 11/28/2023 8:45 AM CDT us Kwaku Martin MD URINE ORDERABLES Final Result [facility] [address] [place] [address], [place] [phone] * (ABNORMAL) BASIC METABOLIC PANEL (11/28/2023 8:43 AM CDT) [facility] GLUCOSE 110(H) 70 - 99 MG/DL 11/28/2023 10:22 AM CDT [facility] BUN 12 7 - 18 MG/DL 11/28/2023 10:22 AM CDT [facility] CREATININE S/P/B 1.19 0.7 - 1.3 MG/DL 11/28/2023 10:22 AM CDT [facility] SODIUM S/P/B 138 136 - 145 MMOL/L 11/28/2023 10:22 AM CDT [facility] POTASSIUM S/P/B 3.5 3.5 - 5.1 MMOL/L 11/28/2023 10:22 AM CDT [facility] CHLORIDE S/P/B 106 97 - 115 MMOL/L 11/28/2023 10:22 AM CDT [facility] CO2 27.4 21 - 32 MMOL/L 11/28/2023 10:22 AM CDT [facility] CALCIUM S/P/B 9.2 8.5 - 10.1 MG/DL 11/28/2023 10:22 AM CDT [facility] ANION GAP 4.6 2 - 10 MMOL/L 11/28/2023 10:22 AM CDT [facility] BUN CREATININE RATIO 10.1 6 - 26 11/28/2023 10:22 AM CDT [facility] GFR ESTIMATE 64(L) >90 ML/MIN/1.7 3 M2 11/28/2023 10:22 AM CDT [facility] Comment: NOTE: eGFR is not [...] Kwaku Martin MD LABORATORY Final R esult [facility] [address] [place] [address], * (ABNORMAL) CBC W/DIFF AUTOMATED (11/28/2023 8:43 AM CDT) WBC 7.86 4.5 - 11.0 x10'3/uL 11/28/2023 9:12 AM CDT [facility] RBC 4.08(L) 4.70 - 6.10 x10'6/uL 11/28/2023 9:12 AM CDT [facility] HGB 13.1(L) 14.0 - 18.0 G/DL 11/28/2023 9:12 AM CDT [facility] HCT 39.3(L) 43.0 - 54.0 % 11/28/2023 9:12 AM CDT [facility] MCV 96.3(H) 80.0 - 94.0 FL 11/28/2023 9:12 AM CDT [facility] MCH 32.1(H) 27.0 - 31.0 PG 11/28/2023 9:12 AM CDT [facility] MCHC 33.3 32.0 - 36.0 G/DL 11/28/2023 9:12 AM CDT [facility] RDW 14.4 11.5 - 14.5 % 11/28/2023 9:12 AM CDT [facility] PLT 236 130 - 400 x10'3/uL 11/28/2023 9:12 AM CDT [facility] MPV 9.3 9.3 - 12.2 FL 11/28/2023 9:12 AM CDT [facility] DIFFERENTIAL TYPE AUTOMATED DIFFERENTIAL 11/28/2023 9:12 AM CDT [facility] NEUTROPHILS % 67.3 % 11/28/2023 9:12 AM CDT [facility] LYMPHOCYTES % 17.9 % 11/28/2023 9:12 AM CDT [facility] MONOCYTES % 11.6 % 11/28/2023 9:12 AM CDT [facility] EOSINOPHILS 2.2 % 11/28/2023 9:12 AM CDT [facility] BASOPHILS 0.6 % 11/28/2023 9:12 AM CDT [facility] IMMATURE GRANS % 0.4 % 11/28/19 9:12 AM CDT [facility] ABS. NEUTROPHILS 5.29 1.80 - 7.70 x10'3/uL 11/28/2023 9:12 AM CDT [facility] ABS. LYMPHOCYTES 1.41 1.00 - 4.80 x10'3/uL 11/28/2023 9:12 AM CDT [facility] ABS. MONOCYTES 0.91(H) 0.30 - 0.82 x10'3/uL 11/28/2023 9:12 AM CDT [facility] ABS. EOSINOPHILS 0.17 0.04 - 0.54 x10'3/uL 11/28/2023 9:12 AM CDT [facility] ABS. BASOPHILS 0.05 0.01 - 0.08 x10'3/uL 11/28/2023 9:12 AM CDT [facility] ABS. 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
--- OUTSIDE RECORDS SUMMARY | 2024-04-12 17:00 | XMS_ITS | Encounter Summary ---
Author Organization [facility] Address [address] [place] [address]. [place], [place] [address] [place] [address] Care Team Providers Care Oracle Soa Architect Name Role Phone Nikky Reyes MD Primary Care Provider Reason for Referral * Imaging (Routine) - Closed Specialty Diagnoses / Procedures Referred By Contac t Referred To Contact RADIOLOGY Diagnoses Gross hematuria Procedures CT ABD+PEL WWO CON Mian Rasmussen MD [address] [place] [address] Phone: tel: fax: Referral ID Status Reason Start Date Expiration Date Visits Re quested Visits Authorized [id number] Closed 04/24/2021 05/25/2022 1 1 ASSEMBLER Reason for Visit * Imaging (Routine) - Closed Specialty Diagnoses / Procedures Referred By Contac t Referred To Contact RADIOLOGY Diagnoses Gross hematuria Procedures CT ABD+PEL WWO CON Mian Rasmussen MD [address] [place] [address] Phone: tel: fax: Referral ID Status Reason Start Date Expiration Date Visits Re quested Visits Authorized [id number] Closed 04/24/2021 05/25/2022 1 1 Encounter Details Date Type Department Care Team (Latest Contact Info) Description 05/04/2021 9:55 AM PAD ASSEMBLER - 05/04/2021 11:59 PM PAD ASSEMBLER [place] [address] [place] [address] Mian Rasmussen MD [address] [place] [address] Discharge Disposition: Home or Self Care (Routine Discharge) Social History Tobacco Use Types Packs/Day Years Used Date Smoking Tobacco: Never Assessed Sex and Gender Information Value Date Recorded Sex Assigned at Not on file Legal Sex Male 1:18 PM PAD ASSEMBLER Gender Identity Not on file Sexual Orientation Not on file COVID-19 Exposure Response Date Recorded In the last 10 days, have yo u been in contact with someone who was confirmed or suspected to have Coronavirus/COVID-19? No / Unsure 05/04/2021 9:48 AM PAD ASSEMBLER documented as of this encounter Plan of Treatment Not on file documented as of this encounter Procedures Procedure Name Priority Date/Time Associated Diagnosis Comments CT ABD+PEL WWO CON Routine 05/04/2021 10 :42 AM PAD ASSEMBLER Gross hematuria CREATININE WHOLE BLOOD Routine 05/04/2021 10:15 AM PAD ASSEMBLER Gross hematuria documented in this encounter Results * CT ABD+PEL WWO CON (05/04/2021 10:42 AM PAD ASSEMBLER) Anatomical Region Laterality Modality Abdomen Computed Tomogra phy 05/04/2021 1:07 PM PAD ASSEMBLER Impressions 05/04/2021 1:31 PM PAD ASSEMBLER IMPRESSION: 1. ??Exam is positive for low [...] 05/04/2021 1:07 PM Narrative 05/04/2021 1:31 PM PAD ASSEMBLER IMAGING STUDIES: CT ABD+PEL WWO CON ?DATE: [...] WHOLE BLOOD (Radiology only) (05/04/2021 10:15 AM PAD ASSEMBLER) CREATININE WHOLE BLOOD 0.9 0.6 - 1.2 MG/DL 05/04/2021 3:41 PM PAD ASSEMBLER [facility] 05/04/2021 10:1 5 AM PAD ASSEMBLER us Mian Rasmussen MD LABORATORY Final Result [facility] [address] [place] [address], [place] [phone] documented in this encounter Visit Diagnoses Diagnosis [...] Fri05/04/21 at 1017 Given 05/04/2021 10:17 AM PAD ASSEMBLER 80 mLs Righ t Arm documented in this encounter Care Teams Oracle Soa Architect Relationship Specialty Start Date End Date Nikky Reyes MD [address] [place] [address] PCP - General FAMILY PRACTICE 05/04/21 documented as of this encounter
--- OUTSIDE RECORDS SUMMARY | 2024-04-12 17:02 | XMS_ITS | Encounter Summary ---
Author Organization [email or web address] Address [address] [place] [address] Care Team Providers Care Stage Hand Name Role Phone Rosanne Santana MD Primary Care Provider [phone] Encounter Details Date Type Department Care Team (Late st Contact Info) Description 10/23/[address] [facility] [facility] [address] [place] [address] Kingsley Reyna MD [address] [address] [address] [place] [id number] Social History Tobacco Use Types Packs/Day Years Used Date Smoking Tobacco: Never Assessed Sex and Gender Information Value Date Recorded Sex Assigned at Not on file Gender Identity Not on file Sexual Orientation Not on file documented as of this encounter Plan of Treatment Not on file documented as of this encounter Visit Diagnoses Not on filedocumented in this encounter Care Teams Stage Hand Relationship Specialty Start Date End Date Rosanne Santana MD [address] [place] [address] [address] [place] [address] PCP - General 10/24/03 documented as of this encounter
--- OUTSIDE RECORDS SUMMARY | 2024-04-12 17:02 | XMS_ITS | Encounter Summary ---
Author Organization [employer] Address [address] [place] [address] Care Team Providers Care Truck Service Manager Name Role Phone Rosanne Santana MD Primary Care Provider [phone] Encounter Details Date Type Department Care Team (Late st Contact Info) Description 12/02/2001 [facility] [address] [place] [id number] Rosanne Santana MD [address] [place] [address] [place] [address] Social History Tobacco Use Types [...] filedocumented in this encounter Care Teams Truck Service Manager Relationship Specialty Start Date End Date Rosanne Santana MD [address] [place] [address] [place] [address] PCP - General 10/24/03 documented as of this encounter
--- OUTSIDE RECORDS SUMMARY | 2024-04-12 17:02 | XMS_ITS | Encounter Summary ---
Author Organization [facility] Address [address] [place] [address] Care Team Providers Care Oxygen Tank Filler Name Role Phone Rosanne Santana MD Primary Care Provider [phone] Encounter Details Date Type Department Care Team [...] Conversion, History - 09/02/2008 3:[address] [place] [address] cc: MD Rosanne Jacobo MD INDICATIONS Chest [...] he went to the emergency room at [facility], was given sublingual nitroglycerin, and had significant [...] on filedocumented in this encounter Care Teams Oxygen Tank Filler Relationship Specialty Start Date End Date Rosanne Santana MD [address] [facility] [place] [address] PCP - General 10/24/03 documented as of this encounter
--- OUTSIDE RECORDS SUMMARY | 2024-04-12 17:02 | XMS_ITS | Encounter Summary ---
Author Organization [employer] Address [address] [place] [address] Care Team Providers Care Shoe Repair Supervisor Name Role Phone Rosanne Santana MD Primary Care Provider [phone] Encounter Details Date Type Department Care Team (Late st Contact Info) Description 05/03/1998 Outpatient Historical [facility] EMERGENCY ROOM [facility] Eliezer Goddard, [address] [facility] [address] [place] [phone] Er, Authorized P NO ADDRESS ON FILE [...] Primary documented in this encounter Care Teams Shoe Repair Supervisor Relationship Specialty Start Date End Date Rosanne Santana MD [address] [place] [address] [address] [place] [address] PCP - General 10/24/03 documented as of this encounter
--- OUTSIDE RECORDS SUMMARY | 2024-04-12 17:02 | XMS_ITS | Encounter Summary ---
Author Organization Address [address] [place] [address] Care Team Providers Care Mechanical Oxidizer Name Role Phone Rosanne Santana MD Primary Care Provider [phone] Encounter Details Date Type Department Care Team (Latest Contact Info) Description 05/21/2006 Outpatient Historical HIS [facility] Rosanne Sanchez MD [address] [facility] [place] [address] Coronary Atherosclerosis of [place] Coronary Artery (Primary Dx) Social History Tobacco [...] CBC WITH DIFFERENTIAL Routine 05/21/2006 7:05 AM SALES AND MARKETING EXECUTIVE CBC WITH DIFFERENTIAL Routine 05/21/2006 7:05 AM SALES AND MARKETING EXECUTIVE PTT Routine 05/21/2006 7:05 AM SALES AND MARKETING EXECUTIVE PROTIME-INR Routine 05/21/2006 7:05 AM SALES AND MARKETING EXECUTIVE BASIC METABOLIC PANEL Routine 05/21/2006 7:05 AM SALES AND MARKETING EXECUTIVE documented in this encounter Results * CBC WITH DIFFERENTIAL (05/21/2006 7:05 AM SALES AND MARKETING EXECUTIVE) NEUTROPHILS 61 45 - 70 % INTERFAC [...] 0.20 K/uL INTERFACE SYSTEM 05/21/2006 7:05 AM SALES AND MARKETING EXECUTIVE Rosanne Santana MD HEMATOLOGY ORDERABLE S INTERFACE SYSTEM Refer to clinic/hospital department * CBC WITH DIFFERENTIAL (05/21/2006 7:05 AM SALES AND MARKETING EXECUTIVE) WBC 5.9 4.0 - 9.8 K/uL INTERFACE [...] 12.4 fL INTERFACE SYSTEM 05/21/2006 7:05 AM SALES AND MARKETING EXECUTIVE Rosanne Santana MD HEMATOLOGY ORDERABLE S INTERFACE SYSTEM Refer to clinic/hospital department * PTT (05/21/2006 7:05 AM SALES AND MARKETING EXECUTIVE) PTT 28.0 24.4 - 36.4 Seconds INTERFACE SYSTEM Comment: PTT Therapeutic Range: Heparin Level ? PTT (seconds) <0.10 units/mL ? <53 0.10 - 0.30 units/mL ? 53 - 67 0.30 - 0.70 units/mL* ?67 - 95* 0.70 - 1.00 units/mL ?95 - 116 *corresponds to therapeutic range for unfractionated heparin 05/21/2006 7:05 AM SALES AND MARKETING EXECUTIVE Rosanne Santana MD HEMATOLOGY ORDERABLE S Performing Organization Address City/State/[facility] Co de Phone Number INTERFACE SYSTEM Refer to clinic/hospital department * PROTIME-INR (05/21/2006 7:05 AM SALES AND MARKETING EXECUTIVE) PROTIME 14.1 12.7 - 15.1 Seconds INTERFACE SYSTEM INR 1.1 0.9 - 1.1 INTERFACE SYSTEM Comment: INR Therapeutic Range: Adult: 2.0 - 3.0 for pulmonary embolism or prophylaxis against venous thrombosis or systemic embolization. 2.0 - 3.0 for patients with tissue heart valves. 2.5 - 3.5 for patients with mechanical heart valves or post [place]. Pediatric ??(12 years and under): 1.5 - 3.0 Although the target range in children is not well established , INR values of 1.5 - 3.0 are recommended for most patients. Higher values have been used in children with prosthetic cardiac valves and hereditary clotting disorders. (<3 days) therapeutic ranges have not been established. 05/21/2006 7:05 AM SALES AND MARKETING EXECUTIVE Rosanne Santana MD HEMATOLOGY ORDERABLE S Performing Organization Address City/State/[facility] Co de Phone Number INTERFACE SYSTEM Refer to clinic/hospital department * (ABNORMAL) BASIC METABOLIC PANEL (05/21/2006 7:05 AM SALES AND MARKETING EXECUTIVE) GLUCOSE 104(H) 65 - 99 mg/dL INTERFACE [...] and non- Americans is available on the [facility] Intranet at: [email or web address] Select: Lab Policies and Procedures Select: Reference Ranges - GFR 05/21/2006 7:05 AM SALES AND MARKETING EXECUTIVE Rosanne Santana MD CHEMISTRY ORDERABLES INTERFACE SYSTEM Refer to clinic/hospital department documented in this encounter Visit Diagnoses Diagnosis Coronary atherosclerosis of [place] coronary artery- Primary documented in this encounter Care Teams Mechanical Oxidizer Relationship Specialty Start Date End Date Rosanne Santana MD [address] [facility] [place] [address] PCP - General 10/24/03 documented as of this encounter
--- OUTSIDE RECORDS SUMMARY | 2024-04-12 17:02 | XMS_ITS | Encounter Summary ---
Author Organization [employer] Address [address] [place] [address] Care Team Providers Care Crystal Attacher Name Role Phone Rosanne Santana MD Primary Care Provider [phone] Encounter Details Date Type Department Care Team (Latest Contact Info) Description 10/24/2003 Outpatient [facility] [employer] [address] [place] [address] & [place] [address] Rosanne Santana MD [address] [facility] [place] [address] PURE HYPERCHOLESTEROLEM (Primary Dx) Social [...] Primary documented in this encounter Care Teams Crystal Attacher Relationship Specialty Start Date End Date Rosanne Santana MD [address] [facility] [place] [address] PCP - General 10/24/03 documented as of this encounter
--- OUTSIDE RECORDS SUMMARY | 2024-04-12 17:02 | XMS_ITS | Encounter Summary ---
Author Organization [employer] Address [address] [place] [address] Care Team Providers Care Bowling Ball Grader And Marker Name Role Phone Rosanne Santana MD Primary Care Provider [phone] Encounter Details Date Type Department Care Team (Late st Contact Info) Description 10/23/[address] [facility] [address] [place] [phone] Hudson Lindsay MD NO ADDRESS ON FILE [...] on filedocumented in this encounter Care Teams Bowling Ball Grader And Marker Relationship Specialty Start Date End Date Rosanne Santana MD [address] [place] [address] [place] [address] PCP - General 10/24/03 documented as of this encounter
--- OUTSIDE RECORDS SUMMARY | 2024-04-12 17:02 | XMS_ITS | Encounter Summary ---
Author Organization [employer] Address [address] [place] [address] Care Team Providers Care Billing And Accounting Staff Assistant Name Role Phone Rosanne Santana MD Primary Care Provider [phone] Encounter Details Date Type Department Care Team (Late st Contact Info) Description 12/02/2001 [facility] [address] [place] [phone] Rosanne Santana MD [address] [place] [address] [place] [address] Social History Tobacco Use Types [...] on filedocumented in this encounter Care Teams Billing And Accounting Staff Assistant Relationship Specialty Start Date End Date Rosanne Santana MD [address] [place] [address] [place] [address] PCP - General 10/24/03 documented as of this encounter
--- OUTSIDE RECORDS SUMMARY | 2024-04-12 17:02 | XMS_ITS | Encounter Summary ---
Author Organization [facility] Address [address] [place] [address] Care Team Providers Care Whipped Topping Supervisor Name Role Phone Rosanne Santana MD Primary Care Provider [phone] Encounter Details Date Type Department Care Team (Late st Contact Info) Description 06/25/2007 Inpatient Historical [place] [address] [facility] [address] [place] [address] Jono Scherer MD [address] [facility] [address] [place] [address] Unspecified Chest Pain Social History [...] INTERFACE SYSTEM - 07/01/2007 9:15 AM CDT [address] [place] [address] [email or web address] Cardiac Catheterization Comprehensive Report Patient: ?Mitchell Rodriguez Study ID: ? [id number] Gender: ? M : ?1950 Age: ?57 years Race: ? 1 Room: Bed: Height: ? 73 in ( 185.4 cm ) Study Date: ? June 25, 2007 Patient status: Inpatient Weight: ? 183.9 lb ( 83.6 kg ) Access. #: ?[id number] POC: Attending MD: ?? Romel Lozada MD: [...] 09:06:43 Procedure Note Provider, Historical - 07/01/2007 [address] [place] [address] [email or web address] Cardiac Catheterization Comprehensive Report Patient: Mitchell Rodriguez Study ID: [id number] Gender: M : 1950 Age: 57 years Race: 1 Room: Bed: Height: 73 in ( 185.4 cm ) Study Date: June 25, 2007 Patient status: Inpatient Weight: 183.9 lb ( 83.6 kg ) Access. #: [id number] POC: Attending MD: Romel Lozada MD: Romel [...] 4:50 AM CDT) CKMB 3.0 <=6.7 ng/mL [facility] CKMB INTERP Negative [facility] Blood specimen (specimen) 06/26/2007 4:50 AM CDT 06/26/2007 4:59 AM CDT Jono Scherer MD CHEMISTRY ORDERABLES [facility] [address] [place] [address] * (ABNORMAL) CBC WITH DIFFERENTIAL (06/26/2007 4:50 AM CDT) WBC 6.5 4.0 - 9.8 K/uL [facility] MCH 31.8 27.2 - 32.6 pg [facility] MPV 9.9 9.3 - 12.4 fL [facility] HEMATOCRIT 40.2 40.0 - 48.0 % [facility] RDW-STDEV 44.4 37.1 - 48.7 fL [facility] RBC 4.31(L) 4.50 - 5.40 M/uL [facility] MCHC 34.1 31.5 - 35.5 % [facility] MCV 93.3 82.0 - 99.0 fL [facility] PLATELETS 146 140 - 350 K/uL [facility] HEMOGLOBIN 13.7 13.6 - 16.5 g/dL [facility] RDW 13.1 11.5 - 14.5 % [facility] BASOPHILS 0 0 - 2 % [facility] BASOPHILS ABSOLUTE 0.02 0.00 - 0.20 K/uL [facility] MONOCYTES 13 3 - 13 % [facility] MONOCYTE ABSOLUTE 0.83 0.10 - 1.30 K/uL [facility] NEUTROPHILS 66 45 - 70 % [facility] NEUTROPHIL ABSOLUTE 4.29 1.90 - 7.00 K/uL [facility] EOSINOPHILS 3 0 - 7 % [facility] EOSINOPHIL ABSOLUTE 0.16 0.00 - 0.70 K/uL [facility] LYMPHOCYTES 18 16 - 45 % [facility] LYMPHOCYTE ABSOLUTE 1.19 0.70 - 4.50 K/uL [facility] Blood specimen (specimen) 06/26/2007 4:50 AM CDT 06/26/2007 4:59 AM CDT Jono Scherer MD HEMATOLOGY ORDERABLE S Performing Organization Address City/[facility] Co de Phone Number INTERFACE SYSTEM Refer to clinic/hospital department [facility] [address] [place] [address] * (ABNORMAL) PHOSPHORUS (06/26/2007 4:50 AM CDT) PHOSPHORUS 2.2(L) 2.5 - 4.5 mg/dL [facility] Blood specimen (specimen) 06/26/2007 4:50 AM CDT 06/26/2007 4:59 AM CDT Jono Scherer MD CHEMISTRY ORDERABLES Performing Organization Address [facility] Co de Phone Number [facility] [address] [place] [address] * MAGNESIUM LEVEL (06/26/2007 4:50 AM CDT) MAGNESIUM 2.2 1.5 - 2.5 mg/dL [facility] Blood specimen (specimen) 06/26/2007 4:50 AM CDT 06/26/2007 4:59 AM CDT Jono Scherer MD CHEMISTRY ORDERABLES Performing Organization Address [facility] Co de Phone Number [facility] [address] [place] [address] * (ABNORMAL) BASIC METABOLIC PANEL (06/26/2007 4:50 AM CDT) BUN 15 6 - 20 mg/dL [facility] CHLORIDE 103 96 - 108 mmol/L [facility] GLUCOSE 97 65 - 99 mg/dL [facility] SODIUM 135 135 - 145 mmol/L [facility] CALCIUM 8.3(L) 8.4 - 10.2 mg/dL [facility] CO2 26 22 - 30 mmol/L [facility] CREATININE 0.78 0.67 - 1.17 mg/dL [facility] POTASSIUM 3.7 3.5 - 4.9 mmol/L [facility] GFR, >60 >=60 mL/min/1. 7 sq meter [facility] GFR >60 >=60 mL/min/1. 7 sq meter [facility] Comment: Estimated GFR rate interpretative information for both Americans and non- Americans is available on the [facility] Intranet at: [email or web address] Select: Lab Policies and Procedures Select: Reference Ranges - GFR Blood specimen (specimen) 06/26/2007 4:50 AM CDT 06/26/2007 4:59 AM CDT Jono Scherer MD CHEMISTRY ORDERABLES [facility] [address] [place] [address] * (ABNORMAL) TROPONIN (W/REFLEX CKMB/CK) (06/26/2007 4:50 AM CDT) TROPONIN T 0.06(AA) <=0.03 ng/mL [facility] Comment: Persistent abnormal result TROPONIN T INTERP See Below [facility] Comment: Elevated Troponin-T,Consistent with Myocardial Injury Blood specimen (specimen) 06/26/2007 4:50 AM CDT 06/26/2007 4:59 AM CDT Jono Scherer MD CHEMISTRY ORDERABLES Performing Organization Address City/[facility]/ZIP Co de Phone Number [facility] [address] [place] [address] * CKMB W/REFLEX CK (06/25/2007 8:18 PM CDT) CKMB 5.8 <=6.7 ng/mL [facility] CKMB INTERP Negative [facility] Blood specimen (specimen) 06/25/2007 8:18 PM CDT 06/25/2007 8:23 PM CDT Jono Scherer MD CHEMISTRY ORDERABLES Performing Organization Address [facility] Co de Phone Number [facility] [address] [place] [address] * (ABNORMAL) TROPONIN (W/REFLEX CKMB/CK) (06/25/2007 8:18 PM CDT) TROPONIN T 0.05(AA) <=0.03 ng/mL [facility] Comment: Results called to Lynne at 06/25/07 9:43 PM and read back verified. TROPONIN T INTERP See Below [facility] Comment: Elevated Troponin-T,Consistent with Myocardial Injury Blood specimen (specimen) 06/25/2007 8:18 PM CDT 06/25/2007 8:23 PM CDT Jono Scherer MD CHEMISTRY ORDERABLES Performing Organization Address City/[facility]/ZIP Co de Phone Number [facility] [address] [place] [address] * (ABNORMAL) BASIC METABOLIC PANEL (06/25/2007 1:44 PM CDT) GLUCOSE 94 65 - 99 mg/dL [facility] SODIUM 138 135 - 145 mmol/L [facility] CALCIUM 8.1(L) 8.4 - 10.2 mg/dL [facility] CO2 24 22 - 30 mmol/L [facility] CREATININE 0.76 0.67 - 1.17 mg/dL [facility] POTASSIUM 3.8 3.5 - 4.9 mmol/L [facility] BUN 11 6 - 20 mg/dL [facility] CHLORIDE 105 96 - 108 mmol/L [facility] GFR, >60 >=60 mL/min/1. 7 sq meter [facility] GFR >60 >=60 mL/min/1. 7 sq meter [facility] Comment: Estimated GFR rate interpretative information for both Americans and non- Americans is available on the [facility] Intranet at: [email or web address] Select: Lab Policies and Procedures Select: Reference Ranges - GFR Blood specimen (specimen) 06/25/2007 1:44 PM CDT 06/25/2007 1:55 PM CDT Alena Guardado MD CHEMISTRY ORDERABLES [facility] [address] [facility] [address] [place], [place] [address] * XR CHEST PA OR AP (06/25/2007 12:20 PM CDT) Anatomical Region Laterality Modality Chest Other 06/25/2007 12:2 0 PM CDT Narrative 06/25/2007 12:50 PM CDT ? [facility] ? [address] ?[place], [place] ??[address] ?Admit Date: 06/25/2007 ?MITCHELL RODRIGUEZ ?Sex: M ?Admit Prov: PAU ZAVALA ? Date: 1950 ?Primary Care Prov: ? CMRN: [id number] ?Room: 32A 3087 1 ? SSN: [id number] ? IMAGING SERVICES ?Ordering Prov: N/A ? Accession Number: [id number] ?Interpretation ? Chest single view ??06/25/2007 ? History: Chest pain ? Findings: The right costophrenic angle is cut off the film. No infiltrate, ? pneumothorax or pleural effusion is seen. The cardiac silhouette appears ? prominent. ? . ? Dictated by: ??NIYAH HULL ?06/25/2007 12:49 ? Electronically signed by: ??NIYAH HULL ?06/25/2007 12:50 Procedure Note Niyah Hull - 06/25/2007 [facility] [address] [place], [place] [address] Admit Date: 06/25/2007 MITCHELL RODRIGUEZ Sex: M Admit Prov: PAU ZAVALA J Date: 1950 Primary Care Prov: CMRN: [id number] Room: [address] [place] [address] SSN: [id number] IMAGING SERVICES Ordering Prov: N/A Interpretation Chest [...] PM CDT) TROPONIN T <0.01 <=0.03 ng/mL [facility] TROPONIN T INTERP Negative [facility] Blood specimen (specimen) 06/25/2007 12:00 PM CDT 06/25/2007 12:12 PM CDT Jono Scherer MD CHEMISTRY ORDERABLES Performing Organization Address City/[facility] Co de Phone Number [facility] [address] [place] [address] * (ABNORMAL) PTT (06/25/2007 12:00 PM CDT) PTT 79.1(H) 24.4 - 36.4 Seconds [facility] Comment: PTT Therapeutic Range: Heparin Level [...] MD HEMATOLOGY ORDERABLE S Performing Organization Address [facility] Co de Phone Number [facility] [address] [place] [address] * (ABNORMAL) PROTIME-INR (06/25/2007 12:00 PM CDT) PROTIME 22.6(H) 12.7 - 15.1 Seconds [facility] INR 2.0(H) 0.9 - 1.1 [facility] Comment: INR Therapeutic Range: Adult: ?? 2.0 - 3.0 for pulmonary embolism or prophylaxis against venous ?thrombosis or systemic embolization. 2.0 - 3.0 for patients with tissue heart valves. 2.5 - 3.5 for patients with mechanical heart valves or post [place]. Pediatric ??(12 years and under): 1.5 - [...] CDT Jono Scherer MD HEMATOLOGY ORDERABLE S [facility] [address] [facility] [place] [address] * (ABNORMAL) CBC WITH DIFFERENTIAL (06/25/2007 12:00 PM CDT) MCV 93.4 82.0 - 99.0 fL [facility] PLATELETS 156 140 - 350 K/uL [facility] HEMOGLOBIN 14.0 13.6 - 16.5 g/dL [facility] RDW 13.2 11.5 - 14.5 % [facility] WBC 6.3 4.0 - 9.8 K/uL [facility] MCH 32.0 27.2 - 32.6 pg [facility] MPV 10.0 9.3 - 12.4 fL [facility] HEMATOCRIT 40.8 40.0 - 48.0 % [facility] RDW-STDEV 44.9 37.1 - 48.7 fL [facility] RBC 4.37(L) 4.50 - 5.40 M/uL [facility] MCHC 34.3 31.5 - 35.5 % [facility] BASOPHILS 0 0 - 2 % [facility] BASOPHILS ABSOLUTE 0.01 0.00 - 0.20 K/uL [facility] MONOCYTES 10 3 - 13 % [facility] MONOCYTE ABSOLUTE 0.64 0.10 - 1.30 K/uL [facility] NEUTROPHILS 69 45 - 70 % [facility] NEUTROPHIL ABSOLUTE 4.33 1.90 - 7.00 K/uL [facility] EOSINOPHILS 2 0 - 7 % [facility] EOSINOPHIL ABSOLUTE 0.10 0.00 - 0.70 K/uL [facility] LYMPHOCYTES 19 16 - 45 % [facility] LYMPHOCYTE ABSOLUTE 1.17 0.70 - 4.50 K/uL [facility] Blood specimen (specimen) 06/25/2007 12:00 PM CDT 06/25/2007 12:12 PM CDT Jono Scherer MD HEMATOLOGY ORDERABLE S INTERFACE SYSTEM Refer to clinic/hospital department [facility] [address] [place] [address] * POC ACTIVATED CLOTTING TIME (06/25/2007 10:51 AM CDT) ACT POC 328 Seconds [facility] Comment: Note sheath pull range change effective 09/20/2005. ACT value for sheath pull at [facility] has been established to be < or = to 140. ??(See also Nursing Procedures for sheath pull in related nursing areas) Blood specimen (specimen) 06/25/2007 10:51 AM CDT 06/25/2007 10:51 AM CDT Pau Zavala MD POINT OF CARE TESTIN G Performing Organization Address City/[facility] Co de Phone Number [facility] [address] [place] [address] documented in this encounter Visit Diagnoses Diagnosis Chest pain, unspecified documented in this encounter Care Teams Whipped Topping Supervisor Relationship Specialty Start Date End Date Rosanne Santana MD [address] [facility] [place] [address] [address] PCP - General 10/24/03 documented as of this encounter
--- OUTSIDE RECORDS SUMMARY | 2024-04-12 17:02 | XMS_ITS | Encounter Summary ---
Author Organization [employer] Address [address] [place] [address] Care Team Providers Care Graphic Art Designer Name Role Phone Rosanne Santana MD Primary Care Provider Encounter Details Date Type Department Care Team (Late st Contact Info) Description 05/16/[address] [facility] [address] [place] [phone] Spencer Nicholas MD NO ADDRESS ON FILE [...] on filedocumented in this encounter Care Teams Graphic Art Designer Relationship Specialty Start Date End Date Rosanne Santana MD [address] [place] [address] PCP - General 10/24/03 documented as of this encounter
--- OUTSIDE RECORDS SUMMARY | 2024-04-12 17:02 | XMS_ITS | Encounter Summary ---
Author Organization [employer] Address [address] [place] [address] Care Team Providers Care Photograph Finisher Name Role Phone Rosanne Santana MD Primary Care Provider [phone] Encounter Details Date Type Department Care Team (Late st Contact Info) Description 02/13/2006 Outpatient Historical [facility] Support Serv. (Adt Cardiology-SJ) [address] [place] [address] Venkat Tripp MD [address] [facility] [address] [place] [address] Social History Tobacco Use Types [...] on filedocumented in this encounter Care Teams Photograph Finisher Relationship Specialty Start Date End Date Rosanne Santana MD [address] [place] [address] [place] [id number] PCP - General 10/24/03 documented as of this encounter
--- OUTSIDE RECORDS SUMMARY | 2024-04-12 17:02 | XMS_ITS | Encounter Summary ---
Author Organization [employer] Address [address] [place] [address] Care Team Providers Care Ion Implant Machine Operator Name Role Phone Rosanne Santana MD Primary Care Provider [phone] Encounter Details Date Type Department Care Team (Latest Contact Info) Description 02/13/2006 Outpatient Historical [facility] Rosanne Santana MD [address] [place] [address] Cor Athrscl-Uns Vessel (Primary Dx) Social [...] Coronary atherosclerosis of unspecified type of vessel, [place] or graft- Primary documented in this encounter Care Teams Ion Implant Machine Operator Relationship Specialty Start Date End Date Rosanne Santana MD [address] [place] [address] PCP - General 10/24/03 documented as of this encounter
--- OUTSIDE RECORDS SUMMARY | 2024-04-12 17:02 | XMS_ITS | Encounter Summary ---
Author Organization [facility] Address [address] [place] [address] Care Team Providers Care Director Of Education Name Role Phone Rosanne Santana MD Primary Care Provider [phone] Encounter Details Date Type Department Care Team (Late st Contact Info) Description 01/17/[address] [facility] [address] [place] [address] & [place] [address] Social History Tobacco Use Types [...] on filedocumented in this encounter Care Teams Director Of Education Relationship Specialty Start Date End Date Rosanne Santana MD [address] [place] [address] [place] [address] PCP - General 10/24/03 documented as of this encounter
--- OUTSIDE RECORDS SUMMARY | 2024-04-12 17:02 | XMS_ITS | Encounter Summary ---
Author Organization [employer] Address [address] [place] [address] Care Team Providers Care Certified Orthotic Fitter Name Role Phone Rosanne Santana MD Primary Care Provider [phone] Encounter Details Date Type Department Care Team [...] Primary documented in this encounter Care Teams Certified Orthotic Fitter Relationship Specialty Start Date End Date Rosanne Santana MD [address] [place] [address] [place] [phone] PCP - General 10/24/03 documented as of this encounter
--- OUTSIDE RECORDS SUMMARY | 2024-04-12 17:02 | XMS_ITS | Encounter Summary ---
Author Organization [employer] Address [address] [place] [address] Care Team Providers Care Preassembler And Inspector Name Role Phone Rosanne Santana MD Primary Care Provider [phone] Encounter Details Date Type Department Care Team (Late st Contact Info) Description 11/06/[address] [facility] ([facility]t [facility]) [address] [place] [address] Hudson Lindsay MD NO ADDRESS ON FILE [...] on filedocumented in this encounter Care Teams Preassembler And Inspector Relationship Specialty Start Date End Date Rosanne Santana MD [address] [place] [address] [place] [address] PCP - General 10/24/03 documented as of this encounter
--- OUTSIDE RECORDS SUMMARY | 2024-04-12 17:02 | XMS_ITS | Encounter Summary ---
Author Organization [facility] Address [address] [place] [address] Care Team Providers Care Computer Network Support Specialist Name Role Phone Rosanne Santana MD Primary Care Provider [phone] Encounter Details Date Type Department Care Team (Latest Contact Info) Description 12/03/2001 Outpatient Historical [facility] Rosanne Sanchez MD [address] [place] [address] CORON ATHEROSCL [place] CORON VESSEL (Primary Dx) Social History Tobacco Use Types Packs/Day Years Used Date Smoking Tobacco: Never Assessed Sex and Gender Information Value Date Recorded Sex Assigned at Not on file Gender Identity Not on file Sexual Orientation Not on file documented as of this encounter Plan of Treatment Not on file documented as of this encounter Visit Diagnoses Diagnosis Coronary atherosclerosis of [place] coronary artery- Primary documented in this encounter Care Teams Computer Network Support Specialist Relationship Specialty Start Date End Date Rosanne Santana MD [address] [place] [address] PCP - General 10/24/03 documented as of this encounter
--- OUTSIDE RECORDS SUMMARY | 2024-04-12 17:02 | XMS_ITS | Encounter Summary ---
Author Organization [employer] Address [address] [place] [address] Care Team Providers Care Raised Printer Name Role Phone Rosanne Santana MD Primary Care Provider [phone] Encounter Details Date Type Department Care Team (Latest Contact Info) Description 05/16/2006 Outpatient Historical [facility] Rosanne Santana MD [address] [place] [address] AMI Inferolateral Wall (Primary Dx) [...] Primary documented in this encounter Care Teams Raised Printer Relationship Specialty Start Date End Date Rosanne Santana MD [address] [place] [address] PCP - General 10/24/03 documented as of this encounter
--- OUTSIDE RECORDS SUMMARY | 2024-04-12 17:02 | XMS_ITS | Encounter Summary ---
Author Organization [employer] Address [address] [place] [address] Care Team Providers Care Production Cook Name Role Phone Rosanne Santana MD Primary Care Provider [phone] Encounter Details Date Type Department Care Team [...] Primary documented in this encounter Care Teams Production Cook Relationship Specialty Start Date End Date Rosanne Santana MD [address] [facility] [place] [address] PCP - General 10/24/03 documented as of this encounter
--- OUTSIDE RECORDS SUMMARY | 2024-04-12 17:02 | XMS_ITS | Encounter Summary ---
Author Organization [facility] Address [address] [place] [address] Care Team Providers Care Learn To Swim Instructor Name Role Phone Rosanne Santana MD Primary Care Provider [phone] Encounter Details Date Type Department Care Team (Late st Contact Info) Description 02/28/2014 Abstract [facility] [address] [place] [address] Rosanne Santana MD [address] [place] [address] Dr [address] [place] [address] Social History Tobacco Use Types [...] on filedocumented in this encounter Care Teams Learn To Swim Instructor Relationship Specialty Start Date End Date Rosanne Santana MD [address] [place] [address] Dr [address] [place] [address] PCP - General 10/24/03 documented as of this encounter
--- OUTSIDE RECORDS SUMMARY | 2024-04-12 17:02 | XMS_ITS | Encounter Summary ---
Author Organization [employer] Address [address] [place] [address] Care Team Providers Care Commanding Officer Garage Name Role Phone Rosanne Santana MD Primary Care Provider [phone] Encounter Details Date Type Department Care Team (Late st Contact Info) Description 03/04/2001 Outpatient Historical [facility] Venkat Uribe MD [address] [place] [address] Er, Authorized P NO ADDRESS ON FILE [...] Primary documented in this encounter Care Teams Commanding Officer Garage Relationship Specialty Start Date End Date Rosanne Santana MD [address] [facility] [address] [place] [address] PCP - General 10/24/03 documented as of this encounter
--- OUTSIDE RECORDS SUMMARY | 2024-04-12 17:02 | XMS_ITS | Encounter Summary ---
Author Organization [employer] Address [address] [place] [address] Care Team Providers Care Fish Farm Manager Name Role Phone Rosanne Santana MD Primary Care Provider [phone] Encounter Details Date Type Department Care Team (Latest Contact Info) Description 01/17/2003 Outpatient [facility] [employer] [facility] [address] [place] [address] & [place] [address] Rosanne Santana MD [address] [place] [address] PURE HYPERCHOLESTEROLEM (Primary Dx) Social [...] Primary documented in this encounter Care Teams Fish Farm Manager Relationship Specialty Start Date End Date Rosanne Santana MD [address] [place] [address] PCP - General 10/24/03 documented as of this encounter
--- OUTSIDE RECORDS SUMMARY | 2024-04-12 17:02 | XMS_ITS | Clinical Summary ---
Author Organization [facility] Address [address] [facility] [place] [address] Phone Care Team Providers Care Osha Inspector Name Role Phone Rosanne Santana MD Primary Care Provider Social History Tobacco Use Types Packs/Day Years [...] 02/01/2023 INFLUENZA VACCINE (#1) 2023 Care Teams Osha Inspector Relationship Specialty Start Date End Date Rosanne Santana MD [address] [place] [address] Dr [place] [address] PCP - General 10/24/03
--- OUTSIDE RECORDS SUMMARY | 2024-04-12 17:02 | XMS_ITS | Encounter Summary ---
Author Organization [email or web address] Address [address] [place] [address] Care Team Providers Care Loss Control Technician Name Role Phone Rosanne Santana MD Primary Care Provider [phone] Encounter Details Date Type Department Care Team (Latest Contact Info) Description 11/06/2004 Outpatient Historical [facility] Rosanne Santana MD [address] [facility] [place] [address] PALPITATIONS (Primary Dx) [...] Primary documented in this encounter Care Teams Loss Control Technician Relationship Specialty Start Date End Date Rosanne Santana MD [address] [place] [address] [place] [address] PCP - General 10/24/03 documented as of this encounter
--- OUTSIDE RECORDS SUMMARY | 2024-04-12 17:02 | XMS_ITS | Encounter Summary ---
Author Organization [employer] Address [address] [place] [address] Care Team Providers Care Cadastral Surveyor Name Role Phone Rosanne Santana MD Primary Care Provider [phone] Encounter Details Date Type Department Care Team (Latest Contact Info) Description 11/08/2003 Inpatient Historical [facility] CARD ELEMENTARY SPECIAL EDUCATION TEACHER Rosanne Santana MD [address] [facility] [place] [address] CORON ATHEROSCL [place] CORON VESSEL (Primary Dx) Social History Tobacco Use Types Packs/Day Years Used Date Smoking Tobacco: Never Assessed Sex and Gender Information Value Date Recorded Sex Assigned at Not on file Gender Identity Not on file Sexual Orientation Not on file documented as of this encounter Plan of Treatment Not on file documented as of this encounter Visit Diagnoses Diagnosis Coronary atherosclerosis of [place] coronary artery- Primary documented in this encounter Care Teams Cadastral Surveyor Relationship Specialty Start Date End Date Rosanne Santana MD [address] [place] [address] PCP - General 10/24/03 documented as of this encounter
--- OUTSIDE RECORDS SUMMARY | 2024-04-12 17:02 | XMS_ITS | Encounter Summary ---
Author Organization [facility] Address [address] [place] [address] Care Team Providers Care Electrician Master Name Role Phone Rosanne Santana MD Primary Care Provider [phone] Encounter Details Date Type Department Care Team (Latest Contact Info) Description 09/24/2007 Outpatient Historical [facility] Rosanne Santana MD [address] [place] [address] Coronary Atherosclerosis of [place] Coronary Artery Social History Tobacco Use Types [...] - 09/24/2007 6:25 PM CDT [facility] ? [address] ?[place] ??[address] ?Admit Date: 09/24/2007 ?MICHAEL, VALORIE ?Sex: M ?Admit Prov: ROSANNE SANTANA ? Date: 1950 ?Primary Care Prov: ? CMRN: [id number] ?Room: [facility] ? SSN: [id number] ? IMAGING SERVICES ?Ordering Prov: N/A ? Accession Number: [id number] ?Interpretation ? Date of Procedure: 09/24/2007 ? [...] Procedure Note Mitchell Wright MD - 09/30/2007 [facility] [address] [place], [place] [address] Admit Date: 09/24/2007 MICHAELMITCHELL J Sex: M Admit Prov: ROSANNE SANTANA Date: 1950 Primary Care Prov: CMRN: [id number] Room: [facility] SSN: [address] [place] [address] IMAGING SERVICES Ordering Prov: N/A Interpretation Date [...] MITCHELL WRIGHT 09/24/2007 18:25 Rosanne Santana MD [place] ORDERABLES INTERFACE SYSTEM Refer to clinic/hospital department documented in this encounter Visit Diagnoses Diagnosis Coronary atherosclerosis of [place] coronary artery documented in this encounter Care Teams Electrician Master Relationship Specialty Start Date End Date Rosanne Santana MD [address] [place] [address] PCP - General 10/24/03 documented as of this encounter
--- OUTSIDE RECORDS SUMMARY | 2024-04-12 17:02 | XMS_ITS | Encounter Summary ---
Author Organization [employer] Address [address] [place] [address] Care Team Providers Care Delivery Table Operator Name Role Phone Rosanne Santana MD Primary Care Provider [phone] Encounter Details Date Type Department Care Team (Latest Contact Info) Description 10/22/2004 Inpatient Historical HIS PATIENT IN A BED Jono Scherer MD [address] [place] [address] POST WALL FIRST EPISODE CARE [...] MD HEMATOLOGY ORDERABLE S Performing Organization Address [facility] Phone Number INTERFACE SYSTEM Refer to clinic/hospital department * MAGNESIUM LEVEL (10/25/2004 6:44 AM CDT) MAGNESIUM 1.9 1.5 - 2.5 mg/dL INTERFACE SYSTEM 10/25/2004 6:44 AM CDT Rosanne Santana MD CHEMISTRY ORDERABLES Performing Organization Address [facility] Phone Number INTERFACE SYSTEM Refer to [...] Santana MD CHEMISTRY ORDERABLES Performing Organization Address [facility] Phone Number INTERFACE SYSTEM Refer to clinic/hospital department * (ABNORMAL) CK TOTAL, RELATIVE INDEX (10/24/2004 7:01 AM CDT) CARDIAC RELATIVE INDEX 4.1(H) <=4.0 INTERFACE SYSTEM CK 796(H) 10 - 170 U/L INTERFACE SYSTEM 10/24/2004 7:01 AM CDT Kan Atkinson MD CHEMISTRY ORDERABLES Performing Organization Address [facility] Phone Number INTERFACE SYSTEM Refer to clinic/hospital department * (ABNORMAL) CKMB W/REFLEX CK (10/24/2004 7:01 AM CDT) CKMB 33.0(AA) <=6.7 ng/mL INTERFACE SYSTEM Comment:Persistent abnormal result CKMB INTERP See Below INTERFAC E SYSTEM Comment:Elevated CKMB,Consis tent with Myocardial Injury 10/24/2004 7:01 AM CDT Kan Atkinson MD CHEMISTRY ORDERABLES Performing Organization Address [facility] Phone Number INTERFACE SYSTEM Refer to [...] Huff HEMATOLOGY ORDERABLE S Performing Organization Address [facility] de Phone Number INTERFACE SYSTEM Refer to [...] Huff HEMATOLOGY ORDERABLE S Performing Organization Address City/[facility] Co de Phone Number INTERFACE SYSTEM Refer to clinic/hospital department * MAGNESIUM LEVEL (10/24/2004 4:42 AM CDT) MAGNESIUM 1.9 1.5 - 2.5 mg/dL INTERFACE SYSTEM 10/24/2004 4:42 AM CDT Alba Huff CHEMISTRY ORDERABLES Performing Organization Address [facility] Co de Phone Number INTERFACE SYSTEM [...] Alba Huff CHEMISTRY ORDERABLES Performing Organization Address [facility] Phone Number INTERFACE SYSTEM Refer to clinic/hospital department * (ABNORMAL) CK TOTAL, RELATIVE INDEX (10/23/2004 1:45 PM CDT) CARDIAC RELATIVE INDEX 8.0(H) <=4.0 INTERFACE SYSTEM CK 1,462(H) 10 - 170 U/L INTERFACE SYSTEM 10/23/2004 1:45 PM CDT [employer] CHEMISTRY ORDERABLES Performing Organization Address [facility] Phone Number INTERFACE SYSTEM Refer to clinic/hospital department * (ABNORMAL) CKMB W/REFLEX CK (10/23/2004 1:45 PM CDT) CKMB 117.0(AA) <=6.7 ng/mL INTERFACE SYSTEM Comment:Persistent abnormal result CKMB INTERP See Below INTERFAC E SYSTEM Comment:Elevated CKMB,Consis tent with Myocardial Injury 10/23/2004 1:45 PM CDT [employer] CHEMISTRY ORDERABLES Performing Organization Address [facility] Phone Number INTERFACE SYSTEM Refer to [...] Huff HEMATOLOGY ORDERABLE S Performing Organization Address City/[facility] Co de Phone Number INTERFACE SYSTEM [...] Huff HEMATOLOGY ORDERABLE S Performing Organization Address [facility] Phone Number INTERFACE SYSTEM Refer to [...] Alba Huff CHEMISTRY ORDERABLES Performing Organization Address [facility] Phone Number INTERFACE SYSTEM Refer to clinic/hospital department * MAGNESIUM LEVEL (10/23/2004 1:45 PM CDT) Pathologist [facility] MAGNESIUM 2.2 1.5 - 2.5 mg/dL INTERFACE SYSTEM 10/23/2004 1:45 PM CDT Alba Huff CHEMISTRY ORDERABLES Performing Organization Address [facility] Phone Number INTERFACE SYSTEM Refer to clinic/hospital department * (ABNORMAL) TROPONIN (W/REFLEX CKMB/CK) (10/23/2004 1:45 PM CDT) [facility] TROPONIN T 5.78(AA) <=0.03 ng/mL INTERFACE SYSTEM Comment:Persistent abnormal result TROPONIN T INTERP See Below INTERFACE SYSTEM Comment:Elevated Troponin-T, Consistent with Myocardial Injury 10/23/2004 1:45 PM CDT Alba Huff CHEMISTRY ORDERABLES Performing Organization Address [facility] Phone Number INTERFACE SYSTEM Refer to clinic/hospital department * (ABNORMAL) CBC WITH DIFFERENTIAL (10/23/2004 11:27 AM CDT) [facility] NEUTROPHILS 77(H) 45 - 70 % INTERFAC [...] MD HEMATOLOGY ORDERABLE S Performing Organization Address [facility]/ZIP Co de Phone Number INTERFACE SYSTEM Refer [...] MD HEMATOLOGY ORDERABLE S Performing Organization Address City/[facility] Co de Phone Number INTERFACE SYSTEM [...] Scherer MD CHEMISTRY ORDERABLES Performing Organization Address City/State/[facility] Phone Number INTERFACE SYSTEM Refer to clinic/hospital department * (ABNORMAL) CK TOTAL, RELATIVE INDEX (10/23/2004 11:27 AM CDT) CARDIAC RELATIVE INDEX 8.5(H) <=4.0 INTERFACE SYSTEM CK 1,062(H) 10 - 170 U/L INTERFACE SYSTEM 10/23/2004 11:2 7 AM CDT Jono Scherer MD CHEMISTRY ORDERABLES Performing Organization Address [facility] Phone Number INTERFACE SYSTEM Refer to clinic/hospital department * (ABNORMAL) CKMB W/REFLEX CK (10/23/2004 11:27 AM CDT) CKMB 90.5(AA) <=6.7 ng/mL INTERFACE SYSTEM Comment:Persistent abnormal result CKMB INTERP See Below INTERFAC E SYSTEM Comment:Elevated CKMB,Consis tent with Myocardial Injury 10/23/2004 11:2 7 AM CDT Jono Scherer MD CHEMISTRY ORDERABLES Performing Organization Address [facility] Phone Number INTERFACE SYSTEM Refer to clinic/hospital department * (ABNORMAL) TROPONIN (W/REFLEX CKMB/CK) (10/23/2004 11:27 AM CDT) TROPONIN T 3.92(AA) <=0.03 ng/mL INTERFACE SYSTEM Comment:Persistent abnormal result TROPONIN T INTERP See Below INTERFACE SYSTEM Comment:Elevated Troponin-T, Consistent with Myocardial Injury 10/23/2004 11:2 7 AM CDT Jono Scherer MD CHEMISTRY ORDERABLES Performing Organization Address [facility] Phone Number INTERFACE SYSTEM Refer to clinic/hospital department * MAGNESIUM LEVEL (10/23/2004 2:44 AM CDT) MAGNESIUM 1.8 1.5 - 2.5 mg/dL INTERFACE SYSTEM 10/23/2004 2:44 AM CDT Jono Scherer MD CHEMISTRY ORDERABLES Performing Organization Address City/[facility] de Phone Number INTERFACE SYSTEM Refer to clinic/hospital department * (ABNORMAL) CK TOTAL, RELATIVE INDEX (10/23/2004 2:44 AM CDT) Pathologist [facility] CARDIAC RELATIVE INDEX 9.4(H) <=4.0 INTERFACE SYSTEM CK 1,648(H) 10 - 170 U/L INTERFACE SYSTEM 10/23/2004 2:44 AM CDT Jono Scherer MD CHEMISTRY ORDERABLES Performing Organization Address [facility] de Phone Number INTERFACE SYSTEM Refer to clinic/hospital department * (ABNORMAL) CKMB W/REFLEX CK (10/23/2004 2:44 AM CDT) Pathologist [facility] CKMB 155.5(AA) <=6.7 ng/mL INTERFACE SYSTEM Comment:Results called to elina israel at _10/23/2004 3:37 AM and read back verified. CKMB INTERP See Below INTERFAC E SYSTEM Comment:Elevated CKMB,Consis tent with Myocardial Injury. 10/23/2004 2:44 AM CDT Jono Scherer MD CHEMISTRY ORDERABLES Performing Organization Address [facility] de Phone Number INTERFACE SYSTEM Refer to clinic/hospital department * (ABNORMAL) CBC WITH DIFFERENTIAL (10/23/2004 2:44 AM CDT) Pathologist [facility] NEUTROPHILS 87(H) 45 - 70 % INTERFAC [...] MD HEMATOLOGY ORDERABLE S Performing Organization Address [facility] Phone Number INTERFACE SYSTEM Refer to [...] MD HEMATOLOGY ORDERABLE S Performing Organization Address [facility] Phone Number INTERFACE SYSTEM Refer to clinic/hospital department * (ABNORMAL) TROPONIN (W/REFLEX CKMB/CK) (10/23/2004 2:44 AM CDT) TROPONIN T 3.78(AA) <=0.03 ng/mL INTERFACE SYSTEM Comment:[facility] at 10/23/2004 3:12 AM and read back verified. TROPONIN T INTERP See Below INTERFACE SYSTEM Comment:Elevated Troponin-T, Consistent with Myocardial Injury 10/23/2004 2:44 AM CDT Jono Scherer MD CHEMISTRY ORDERABLES Performing Organization Address [facility] Phone Number INTERFACE SYSTEM Refer to [...] Primary documented in this encounter Care Teams Delivery Table Operator Relationship Specialty Start Date End Date Rosanne Santana MD [address] [facility] [place] [address] PCP - General 10/24/03 documented as of this encounter
--- OUTSIDE RECORDS SUMMARY | 2024-04-12 17:02 | XMS_ITS | Encounter Summary ---
Author Organization [employer] Address [address] [place] [address] Care Team Providers Care Linseed Oil Boiler Name Role Phone Rosanne Santana MD Primary Care Provider [phone] Encounter Details Date Type Department Care Team (Late st Contact Info) Description 11/08/[address] [facility] [facility] [address] [place] [id number] Adelso Weathers MD NO ADDRESS ON FILE [...] on filedocumented in this encounter Care Teams Linseed Oil Boiler Relationship Specialty Start Date End Date Rosanne Santana MD [address] [place] [address] [place] [address] PCP - General 10/24/03 documented as of this encounter
--- OUTSIDE RECORDS SUMMARY | 2024-04-12 17:02 | XMS_ITS | Encounter Summary ---
Author Organization [employer] Address [address] [place] [address] Care Team Providers Care Engineering Analyst Name Role Phone Rosanne Santana MD Primary Care Provider Encounter Details Date Type Department Care Team (Latest Contact Info) Description 01/17/2004 Outpatient [facility] [place] [facility] [address] [place] [address] & [place] [address] Rosanne Santana MD [address] [place] [address] PURE HYPERCHOLESTEROLEM (Primary Dx) Social [...] Primary documented in this encounter Care Teams Engineering Analyst Relationship Specialty Start Date End Date Rosanne Santana MD [address] [place] [address] PCP - General 10/24/03 documented as of this encounter
--- OUTSIDE RECORDS SUMMARY | 2024-04-12 17:02 | XMS_ITS | Encounter Summary ---
Author Organization [employer] Address [address] [place] [address] Care Team Providers Care Engraver Lettering Name Role Phone Rosanne Santana MD Primary Care Provider [phone] Encounter Details Date Type Department Care Team (Late st Contact Info) Description 12/02/2001 [facility] [address] [place] [phone] Rosanne Santana MD [address] [place] [address] [place] [address] Social History Tobacco Use Types [...] on filedocumented in this encounter Care Teams Engraver Lettering Relationship Specialty Start Date End Date Rosanne Santana MD [address] [place] [address] [place] [address] PCP - General 10/24/03 documented as of this encounter
--- OUTSIDE RECORDS SUMMARY | 2024-04-12 17:03 | XMS_ITS | Encounter Summary ---
Author Organization [facility] Healthcare Address [address] [place] [address] Care Team Providers Care Sales Project Manager Name Role Phone Nikky Reyes MD Primary Care Provider Venkat Vivar DO Unavailable [phone] Kwaku Martin MD Unavailable [phone] Richard Hargrove MD Unavailable [phone] Adelso Quiñones MD Unavailable [phone] Encounter Details Date Type Department Care Team (Late st Contact Info) Description 03/01/2024 Completion of Therapy [facility] Medical Office Building 2 Radiation Oncology [address] [place], [place] [address] Richard Hargrove MD [address] [place] [address] Social History Tobacco Use Types Packs/Day Years [...] on file 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 Gender Identity Not on file Sexual [...] Richard Hargrove MD at 03/03/2024 10:09 AM AIRPORT CONTROL OPERATOR ORT CONTROL OPERATOR ORT CONTROL OPERATOR documented in this encounter Plan of Treatment Not on file documented as of this encounter Visit Diagnoses Not on filedocumented in this encounter Care Teams Sales Project Manager Relationship Specialty Start Date End Date Nikky Reyes MD [facility]7 [facility] [place] 2 [place] [address] PCP - General Family Practice 12/15/23 Venkat Vivar DO 1418 [facility] MEDICAL ONCOLOGY, [facility] 180 [place] [address] Medical Oncologist/Hard Tile Setter Hematology and Oncology 12/15/23 Kwaku Martin MD 1 [place] [address] Consulting Physician Urology 12/15/23 Richard Hargrove MD 1418 [facility] 160 [place] [address] Radiation Oncologist Radiation Oncology 01/08/24 Adelso Quiñ[place] [address] [address] [place] [address] Surgeon Urology 01/22/24 documented as of this encounter
--- OUTSIDE RECORDS SUMMARY | 2024-04-12 17:03 | XMS_ITS ---
Author Organization [facility] [address] Address [address] [place] [address] Care Team Providers Care Pack Master Name Role Phone Nikky Reyes MD Primary Care Provider Venkat Vivar DO Unavailable [phone] Kwaku Martin MD Unavailable [phone] Richard Hargrove MD Unavailable [phone] Adelso Quiñones MD Unavailable [phone] Active Problems Problem Noted Date Diagnosed [...] DO Linked Problems Encounter for person [facility] neoplasm of urinary bladder, unspecified site (HCC) [...]
--- OUTSIDE RECORDS SUMMARY | 2024-04-12 17:03 | XMS_ITS | Encounter Summary ---
Author Organization [facility] Healthcare Address [address] [place] [address] Care Team Providers Care Internal Sales Engineer Name Role Phone Nikky Reyes MD Primary Care Provider Venkat Vivar DO Unavailable [phone] Kwaku Martin MD Unavailable [phone] Richard Hargrove MD Unavailable [phone] Adelso Quiñones MD Unavailable [phone] Reason for Visit * Reason Comments OTV Encounter Details Date Type Department Care Team ([facility] Contact Info) Description 03/01/[address] [facility] Medical Office Building 2 Radiation Oncology [address] [place], [place] [id number] Richard Hargrove MD [address] [place], [place] [address] Social History Tobacco Use Types Packs/Day Years [...] on file Legal Sex Male 2:03 AM VIDEO EDITING INTERNSHIP Gender Identity Not on file Sexual Orientation Not on file Occupation Industry Job Start Date Job End Date Retired Not on file Not on file Not on file documented as of this encounter Last Filed Vital Signs Vital Sign Reading Time Taken Comments Blood Pressure 116/75 03/01/2024 10:37 AM VIDEO EDITING INTERNSHIP Pulse 88 03/01/2024 10:37 AM VIDEO EDITING INTERNSHIP Temperature - - Respiratory Rate - - Oxygen Saturation 98% 03/01/2024 10:37 AM VIDEO EDITING INTERNSHIP Inhaled Oxygen Concentration - - Weight 88.5 kg (195 lb) 03/01/2024 10:37 AM VIDEO EDITING INTERNSHIP Height - - Body Mass Index 25.73 02/25/2024 12:13 AM VIDEO EDITING INTERNSHIP documented in this encounter Progress Notes * [...] pain that requires changes in pain management. O EDITING INTERNSHIP O EDITING INTERNSHIP documented in this encounter Plan of Treatment Not on file documented as of this encounter Visit Diagnoses Not on filedocumented in this encounter Care Teams Internal Sales Engineer Relationship Specialty Start Date End Date Nikky Reyes MD 3417 [facility] 2 [place], [place] [address] PCP - General Family Practice 12/15/23 Venkat Vivar DO 1418 [facility] MEDICAL ONCOLOGY, [facility] 180 [place] [address] Medical Oncologist/Neurological Surgery Teacher Hematology and Oncology 12/15/23 Kwaku Martin MD 1 [place] [address] Consulting Physician Urology 12/15/23 Richard Hargrove MD 1418 [facility] 160 [place], [place] [address] Radiation Oncologist Radiation Oncology 01/08/24 Adelso Quiñones [place] [address] [place] [address] Surgeon Urology 01/22/24 documented as of this encounter
--- OUTSIDE RECORDS SUMMARY | 2024-04-12 17:03 | XMS_ITS | Encounter Summary ---
Author Organization [facility] Healthcare Address [address] [place] [address] Care Team Providers Care Mold Dumper Name Role Phone Nikky Reyes MD Primary Care Provider Venkat Vivar DO Unavailable [phone] Kwaku Martin MD Unavailable [phone] Richard Hargrove MD Unavailable [phone] Adelso Quiñones MD Unavailable [phone] Encounter Details Date Type Department Care [...] on file Legal Sex Male 2:03 AM STATIONARY ENGINEER Gender Identity Not on file Sexual Orientation Not on file Occupation Industry Job Start Date Job End Date Retired Not on file Not on file Not on file documented as of this encounter Plan of Treatment Not on file documented as of this encounter Procedures Procedure Name Priority Date/Time Associated Diagnosis Comments RAD ONC ARIA SESSION SUMMARY 03/01/2024 9:55 AM STATIONARY ENGINEER documented in this encounter Results * RAD ONC ARIA SESSION SUMMARY (03/01/2024 9:55 AM STATIONARY ENGINEER) Course Name [email or web address]_ 2023 ARIA Course Plan Date 01/22/2024 3:44 PM ARIA Elapsed Days 28 ARIA Treatment Start Date 2024 ARIA Treatment Site BLADDER ARIA Dose Given To Date (cGy) 5,500 ARIA Session Dosage Given (cGy) 275 ARIA Plan ID BLADDER ARIA Fractions Treated 20 ARIA Prescribed Dose Per Fraction (cGy) 275 ARIA Prescribed Total Dose (cGy) 5,500 ARIA 03/01/2024 9:55 AM STATIONARY ENGINEER us Not In File Miscellaneous RADIATION ONCOLOGY ORD ERABLES Final Result ARIA documented in this encounter Visit Diagnoses Not on filedocumented in this encounter Care Teams Mold Dumper Relationship Specialty Start Date End Date Nikky Reyes MD [address] [place] [address] 2 [place] [address] PCP - General Family Practice 12/15/23 [place] [address] [place] [address] MEDICAL ONCOLOGY, [facility] 180 [place], [place] [id number] Medical Oncologist/Weatherseal Technician Hematology and Oncology 12/15/23 Kwaku Martin MD 1 [place] [address] Consulting Physician Urology 12/15/23 Richard Hargrove MD [address] [address] Radiation Oncologist Radiation Oncology 01/08/24 Adelso Quiñones [place] [address] [place] [address] Surgeon Urology 01/22/24 documented as of this encounter
--- OUTSIDE RECORDS SUMMARY | 2024-04-12 17:03 | XMS_ITS | Encounter Summary ---
Author Organization [facility] Address [address] [place] [address] Phone Care Team Providers Care Mental Health Program Specialist Name Role Phone Nikky Reyes MD Primary Care Provider Venkat Vivar DO Unavailable [phone] Kwaku Martin MD Unavailable [phone] Richard Hargrove MD Unavailable [phone] Adelso Quiñones MD Unavailable [phone] Encounter Details Date Type Department Care Team (Late st Contact Info) Description 03/08/2024 Telephone [facility] Oncology [facility] [address] [place] [address] Laura Arias, RN Social History [...] on file Legal 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 Patient vu. AL ADVERTISER documented in this encounter Plan of Treatment Not on file documented as of this encounter Visit Diagnoses Not on filedocumented in this encounter Care Teams Mental Health Program Specialist Relationship Specialty Start Date End Date Nikky Reyes MD [facility]7 [facility] [address] [place] [address] PCP - General Family Practice 12/15/23 [place] [address] [place] [address] MEDICAL ONCOLOGY, [address] [address] Medical Oncologist/Color Adviser Hematology and Oncology 12/15/23 Kwaku Martin MD 1 [place] [address] Consulting Physician Urology 12/15/23 Richard Hargrove MD [facility] [address] Radiation Oncologist Radiation Oncology 01/08/24 Adelso Qu[place]ñones [place] [address] [address] Surgeon Urology 01/22/24 documented as of this encounter
--- OUTSIDE RECORDS SUMMARY | 2024-04-12 17:03 | XMS_ITS | Encounter Summary ---
Author Organization [facility] Healthcare Address [address] [place] [address] Care Team Providers Care Fisher Eel Name Role Phone Nikky Reyes MD Primary Care Provider Venkat Vivar DO Unavailable [phone] Kwaku Martin MD Unavailable [phone] Richard Hargrove MD Unavailable [phone] Adelso Quiñones MD Unavailable [phone] Encounter Details Date Type Department Care Team (Late st Contact Info) Description 03/01/2024 10:00 AM COMPOUND FINISHER Lab [facility] at [address] [address] Malignant neoplasm of urinary bladder, [...] on file Legal Sex Male 2:03 AM COMPOUND FINISHER Gender Identity Not on file Sexual Orientation Not on file Occupation Industry Job Start Date Job End Date Retired Not on file Not on file Not on file documented as of this encounter Plan of Treatment Not on file documented as of this encounter Procedures Procedure Name Priority Date/Time Associated Diagnosis Comments EGFR Routine 03/01/2024 10:46 AM COMPOUND FINISHER Malignant neoplasm of urinary bladder, unspecified site (HCC) DIFFERENTIAL AUTO Routine 03/01/2024 10: 46 AM COMPOUND FINISHER Malignant neoplasm of urinary bladder, unspecified site (HCC) CBC WITH AUTO DIFFERENTIAL Routine 03/01/2024 10:46 AM COMPOUND FINISHER Malignant neoplasm of urinary bladder, unspecified site (HCC) COMPREHENSIVE METABOLIC PANEL Routine 03/01/2024 10:46 AM COMPOUND FINISHER Malignant neoplasm of urinary bladder, unspecified site (HCC) documented in this encounter Results * eGFR (03/01/2024 10:46 AM COMPOUND FINISHER) eGFR >90 >=60 mL/min/1. 73 m2 Comment: [...] was last reviewed 2021. Testing performed by: [address] [address] Blood 03/01/2024 10:4 6 AM COMPOUND FINISHER 03/01/2024 10:50 AM COMPOUND FINISHER Venkat Vivar DO LAB BLOOD ORDERABLES Final R esult [facility] 0680 [facility] Department of Laboratories [place], [place] [id number] * (ABNORMAL) Differential, auto (03/01/2024 10:46 AM COMPOUND FINISHER) Neutrophil abs 5.6 1.5 - 6.5 K/cumm Comment:Testing performed by : [address] [address] Imm gran abs 0.1 0.0 - 0.1 K/cumm JAIME Comment:Testing performed by : [address] [address] Lymphocyte abs 0.6(L) 0.8 - 3.3 K/cumm JAIME Comment:Testing performed by : [address] [address] Monocyte abs 1.2(H) 0.2 - 0.8 K/cumm JAIME Comment:Testing performed by : [address] [address] Eosinophil abs 0.1 0.0 - 0.5 K/cumm JAIME Comment:Testing performed by : [address] [address] Basophil abs 0.0 0.0 - 0.1 K/cumm JAIME Comment:Testing performed by : [address] [address] Neutrophil pct 73.8 % JAIME Comment: Interpretive Data Percent cell count reference ranges are not reported, since discordance with absolute values may lead to misinterpretation of CBC data. Current Interpretive Data was last revised on 2017. Testing performed by: [address] [address] Imm gran pct 1.1 % [facility] Comment: Interpretive Data Percent cell count reference ranges are not reported, since discordance with absolute values may lead to misinterpretation of CBC data. Current Interpretive Data was last revised on 2017. Testing performed by: [address] [address] Lymphocyte pct 7.5 % [facility] Comment: Interpretive Data Percent cell count reference ranges are not reported, since discordance with absolute values may lead to misinterpretation of CBC data. Current Interpretive Data was last revised on 2017. Testing performed by: [address] [address] Monocyte pct 16.1 % [facility] Comment: Interpretive Data Percent cell count reference ranges are not reported, since discordance with absolute values may lead to misinterpretation of CBC data. Current Interpretive Data was last revised on 2017. Testing performed by: [address] [address] Eosinophil pct 1.2 % [facility] Comment: Interpretive Data Percent cell count reference ranges are not reported, since discordance with absolute values may lead to misinterpretation of CBC data. Current Interpretive Data was last revised on 2017. Testing performed by: [address] [address] Basophil pct 0.3 % [facility] Comment: Interpretive Data Percent cell count reference ranges are not reported, since discordance with absolute values may lead to misinterpretation of CBC data. Current Interpretive Data was last revised on 2017. Testing performed by: [address] [address] Blood 03/01/2024 10:4 6 AM COMPOUND FINISHER 03/01/2024 10:50 AM COMPOUND FINISHER us Venkat Vivar DO LAB BLOOD ORDERABLES Final R esult JAIME [address] [facility] [place] [address] * (ABNORMAL) CBC with auto differential (03/01/2024 10:46 AM COMPOUND FINISHER) [facility] WBC 7.6 3.8 - 9.9 K/cumm Comment:Testing performed by : [address] [address] Hgb 10.8(L) 13.0 - 17.5 g/dL JAIME Comment:Testing performed by : [address] [address] Hct 31.6(L) 38.9 - 50.3 % JAIME Comment:Testing performed by : [address] [address] Plt 267 150 - 400 K/cumm JAIME Comment:Testing performed by : [address] [address] MPV 8.6(L) 9.1 - 12.3 fL JAIME Comment:Testing performed by : [address] [address] RBC 3.23(L) 4.30 - 5.80 M/cumm JAIME Comment:Testing performed by : [address] [address] MCV 97.8(H) 81.3 - 96.4 fL JAIME Comment:Testing performed by : [address] [address] MCH 33.4(H) 27.1 - 33.3 pg JAIME Comment:Testing performed by : [address] [address] MCHC 34.2 32.3 - 35.7 g/dL JAIME Comment:Testing performed by : [address] [address] RDW CV 16.7(H) 11.1 - 14.9 % JAIME Comment:Testing performed by : [address], [address] RDW SD 54.2(H) 35.7 - 48.1 fL JAIME Comment:Testing performed by : [address] [address] NRBC abs 0.00 0.00 - 0.01 K/cumm JAIME PINEDA Comment:Testing performed by : [address] [address] Blood 03/01/2024 10:4 6 AM COMPOUND FINISHER 03/01/2024 10:50 AM COMPOUND FINISHER Venkat Vivar DO LAB BLOOD ORDERABLES Final R esult [facility] 4500 [facility] Department [place] [address] * Comprehensive metabolic panel (03/01/2024 10:46 AM COMPOUND FINISHER) Sodium 138 135 - 145 mmol/L Comment:Testing performed by : [address] [address] Potassium, pl 3.8 3.3 - 4.9 mmol/L JAIME Comment:Testing performed by : [address] [address] Chloride 102 97 - 110 mmol/L JAIME Comment:Testing performed by : [address] [address] CO2 26 22 - 32 mmol/L JAIME Comment:Testing performed by : [address] [address] Anion gap 10 2 - 15 mmol/L JAIME Comment:Testing performed by : [address] [address] BUN 17 6 - 25 mg/dL JAIME Comment:Testing performed by : [address] [address] Creatinine 0.80 0.80 - 1.30 mg/dL JAIME Comment:Testing performed by : [address] [address] Glucose 119 70 - 199 mg/dL JAIME [...] was last revised 2022. Testing performed by: [address] [address] Calcium 9.1 8.5 - 10.3 mg/dL JAIME Comment:Testing performed by : [address] [address] Bilirubin, total 0.7 0.1 - 1.2 mg/dL JAIME Comment:Testing performed by : [address] [address] Protein, pl 7.3 6.5 - 8.5 g/dL JAIME Comment:Testing performed by : [address] [address] Albumin 3.9 3.5 - 5.0 g/dL JAIME Comment:Testing performed by : [address] [address] Alk phos 76 40 - 130 Units/L JAIME Comment:Testing performed by : [address] [address] ALT 24 7 - 55 Units/L JAIME Comment:Testing performed by : [address] [address] AST 17 10 - 50 Units/L JAIME Comment:Testing performed by : [address] [address] Blood 03/01/2024 10:4 6 AM COMPOUND FINISHER 03/01/2024 10:50 AM COMPOUND FINISHER us Venkat Vivar DO LAB BLOOD ORDERABLES Final R esult [facility] 9216 [facility] Department [place] [address] documented in this encounter Visit Diagnoses Diagnosis Malignant neoplasm of urinary bladder, unspecified site (HCC) documented in this encounter Orders Appointment Requests Count Last Ordered Date Fi rst Ordered Date ONCBCN LAB APPOINTMENT 1 03/01/2024 documented in this encounter Care Teams Fisher Eel Relationship Specialty Start Date End Date Nikky Reyes MD 3417 [facility] [address] 2 [place], [place] [address] PCP - General Family Practice 12/15/23 Venkat Vivar DO 1418 [facility] MEDICAL ONCOLOGY, [facility] 180 [place] [address] Medical Oncologist/Joint Setter Hematology and Oncology 12/15/23 Kwaku Martin MD 1 [place] [address] Consulting Physician Urology 12/15/23 Richard Hargrove MD [address] [place] [address] 160 [place], [place] [address] Radiation Oncologist Radiation Oncology 01/08/24 Adelso Qu[place] [address] [address] [place] [address] Surgeon Urology 01/22/24 documented as of this encounter
--- OUTSIDE RECORDS SUMMARY | 2024-04-12 17:03 | XMS_ITS | Encounter Summary ---
Author Organization [facility] Healthcare Address [address] [place] [address] Care Team Providers Care Mail Technician Name Role Phone Nikky Reyes MD Primary Care Provider Venkat Vivar DO Unavailable [phone] Kwaku Martin MD Unavailable [phone] Richard Hargrove MD Unavailable [phone] Adelso Quiñones MD Unavailable [phone] Encounter Details Date Type Department Care Team (Late st Contact Info) Description 03/01/2024 9:30 AM OFFICE ASSISTANCE Treatment [facility] Medical Office Building 2 Radiation Oncology [address] [place], [place] [id number] Richard Hargrove MD [address] [place] [address] Social History Tobacco Use Types Packs/Day Years [...] on file Legal Sex Male 2:03 AM OFFICE ASSISTANCE Gender Identity Not on file Sexual Orientation Not on file Occupation Industry Job Start Date Job End Date Retired Not on file Not on file Not on file documented as of this encounter Plan of Treatment Not on file documented as of this encounter Visit Diagnoses Not on filedocumented in this encounter Care Teams Mail Technician Relationship Specialty Start Date End Date Nikky Reyes MD [address] [facility] [address] [place] [address] PCP - General Family Practice 12/15/23 Venkat Vivar DO 1418 [facility] MEDICAL ONCOLOGY, [facility] 180 [place] [address] Medical Oncologist/Electrician Apprentice Powerhouse Hematology and Oncology 12/15/23 Kwaku Martin MD 1 [place] [address] Consulting Physician Urology 12/15/23 [place] [address] [place] [address] 160 [place] [address] Radiation Oncologist Radiation Oncology 01/08/24 Adelso Quiñones [place] [address] [address] [place] [address] Surgeon Urology 01/22/24 documented as of this encounter
--- OUTSIDE RECORDS SUMMARY | 2024-04-12 17:03 | XMS_ITS | Encounter Summary ---
Author Organization [facility] Healthcare Address [address] [place] [address] Care Team Providers Care Snack [employer] Cashier Name Role Phone Nikky Reyes MD Primary Care Provider Venkat Vivar DO Unavailable [phone] Kwaku Martin MD Unavailable [phone] Richard Hargrove MD Unavailable [phone] Adelso Quiñones MD Unavailable [phone] Encounter Details Date Type Department Care [...] on file Legal Sex Male 2:03 AM ELECT[employer]ICAL [employer]EMAN Gender Identity Not on file Sexual Orientation Not on file Occupation Industry Job Start Date Job End Date Retired Not on file Not on file Not on file documented as of this encounter Plan of Treatment Not on file documented as of this encounter Procedures Procedure Name Priority Date/Time Associated Diagnosis Comments RAD ONC ARIA SESSION SUMMARY 02/25/2024 9:45 AM ELECTRICAL LINEMAN documented in this encounter Results * RAD ONC ARIA SESSION SUMMARY (02/25/2024 9:45 AM ELECTRICAL LINEMAN) Course Name [email or web address]_ 2023 ARIA Course Plan Date 01/22/2024 3:44 PM ARIA Elapsed Days 23 ARIA Treatment Start Date 2024 ARIA Treatment Site BLADDER ARIA Dose Given To Date (cGy) 5,225 ARIA Session Dosage Given (cGy) 275 ARIA Plan ID BLADDER ARIA Fractions Treated 19 ARIA Prescribed Dose Per Fraction (cGy) 275 ARIA Prescribed Total Dose (cGy) 5,500 ARIA 02/25/2024 9:45 AM ELECTRICAL LINEMAN us Not In File Miscellaneous RADIATION ONCOLOGY ORD ERABLES Final Result ARIA documented in this encounter Visit Diagnoses Not on filedocumented in this encounter Care Teams Snack [employer] Cashier Relationship Specialty Start Date End Date Nikky Reyes MD [address] [place] [address] [address] [place] [address] PCP - General Family Practice 12/15/23 [place] [address] [place] [address] MEDICAL ONCOLOGY, [facility] [address] [place], [place] [id number] Medical Oncologist/Restaurant Service Manager Hematology and Oncology 12/15/23 Kwaku Martin MD [address] [place] [address] Consulting Physician Urology 12/15/23 Richard Hargrove MD [address] [address] Radiation Oncologist Radiation Oncology 01/08/24 Adelso Quiñones [place] [address] [place] [id number] Surgeon Urology 01/22/24 documented as of this encounter
--- OUTSIDE RECORDS SUMMARY | 2024-04-12 17:03 | XMS_ITS | Clinical Summary ---
Author Organization [facility] [address] Address [address] [place] [address] Care Team Providers Care Engineer Rf Deployment Name Role Phone Nikky Reyes MD Primary Care Provider Venkat Vivar DO Unavailable [phone] Kwaku Martin MD Unavailable [phone] Richard Hargrove MD Unavailable [phone] Adelso Quiñones MD Unavailable [phone] Allergies No known active allergies Medications [...] Type Department Care Team Description 03/08/2024 Telephone [facility] Physicians [facility] Oncology [address] [place] [phone] Laura Arias RN 03/01/2024 10:45 AM CAKE KNOCKER Office Visit 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); Malignant neoplasm of urinary bladder, unspecified site (HCC); Anemia due to chemotherapy 03/01/2024 10:00 AM CAKE KNOCKER Lab [facility] at [address] [phone] Malignant neoplasm of urinary bladder, unspecified site (HCC) 03/01/2024 9:30 AM CAKE KNOCKER Treatment [facility] Medical Office Building 2 Radiation Oncology [address] [place] [phone] Richard Hargrove MD 03/01/2024 Completion of Therapy [facility] Medical Office Building 2 Radiation Oncology [address] [place] [address] Richard Hargrove MD 03/01/2024 Orders Only RAD ONC TREATMENTS Miscellaneous, Not In File 03/01/2024 OTV [facility] Medical Office Building 2 Radiation Oncology [address] [place] [address] Richard Hargrove MD 03/01/2024 Orders Only RAD ONC TREATMENTS Miscellaneous, Not In File 02/25/2024 9:30 AM CAKE KNOCKER Treatment [facility] Office Building 2 Radiation Oncology [address] [place] [address] 02/25/2024 12:39 AM CAKE KNOCKER - 02/25/2024 4:06 AM CAKE KNOCKER Emergency [facility] Emergency Department [facility] [place] [address] Kwaku Roland Jr., MD Abdominal pain (Primary Dx); Constipation, unspecified constipation type; Colitis Discharge Disposition: Discharge to home or self care 02/25/2024 Orders Only RAD ONC TREATMENTS Miscellaneous, Not In File 02/24/2024 9:30 AM CAKE KNOCKER Treatment [facility] Medical Office Building 2 Radiation Oncology [address] [place] [address] 02/24/2024 Telephone [facility] Medical Office [facility] 2 Radiation Oncology [address] [place] [address] Ibeth Jo, ODILON 02/24/2024 Orders Only RAD ONC TREATMENTS Miscellaneous, Not In File 02/23/2024 11:00 AM CAKE KNOCKER Infusion [facility] at [address] [phone] Malignant neoplasm of urinary bladder, unspecified site (HCC) (Primary Dx); Encounter for person encountering health services 02/23/2024 10:15 AM CAKE KNOCKER Lab [facility] at [address] [address] Encounter for person encountering health services; Malignant neoplasm of urinary bladder, unspecified site (HCC) 02/23/2024 9:30 AM CAKE KNOCKER Treatment [facility] Medical Office Building 2 Radiation Oncology [address] [place] [address] 02/23/2024 OTV [facility] Medical Office Building 2 Radiation Oncology [address] [place] [address] Richard Hargrove MD 02/23/2024 Orders Only RAD ONC TREATMENTS Miscellaneous, Not In File 02/22/2024 9:30 AM CAKE KNOCKER Treatment [facility] Office Building 2 Radiation Oncology [address] [place] [address] 02/22/2024 Orders Only [facility] [address] [place] [phone] Venkat Vivar DO 02/22/2024 Orders Only RAD ONC TREATMENTS Miscellaneous, Not In File 02/20/2024 9:30 AM CAKE [facility]NOCKER Treatment [facility] Medical Office Building 2 Radiation Oncology [address] [place] [address] 02/20/2024 Documentation [facility] Office [facility] 2 Radiation Oncology [address] [place] [address] Ibeth Jo RN 02/20/2024 Orders Only RAD ONC TREATMENTS Miscellaneous, Not In File 02/19/2024 11:45 AM CAKE KNOCKER Infusion [facility] at [address] [phone] Malignant neoplasm of urinary bladder, unspecified site (HCC) (Primary Dx); Encounter for person encountering health services 02/19/2024 11:00 AM CAKE KNOCKER [facility] Center at [address] [address] Encounter for person encountering health services; Malignant neoplasm of urinary bladder, unspecified site (HCC) 02/19/2024 9:45 AM CAKE KNOCKER Clinical Support [facility] Medical Office Building 2 Radiation Oncology [address] [place] [address] Malignant neoplasm of urinary bladder, unspecified site (HCC) (Primary Dx) 02/19/2024 9:30 AM CAKE KNOCKER Treatment [facility] Medical Office Building 2 Radiation Oncology [address] [place] [address] 02/19/2024 Orders Only RAD ONC TREATMENTS Miscellaneous, Not In File 02/18/2024 9:30 AM CAKE KNOCKER Treatment [facility] Medical Office Building 2 Radiation Oncology [address] [place] [address] 02/18/2024 Orders Only [facility] Physicians [facility] Oncology [address] [place] [phone] Venkat Vivar DO 02/18/2024 Orders Only RAD ONC TREATMENTS Miscellaneous, Not In File 02/17/2024 9:30 AM CAKE KNOCKER Treatment [facility] Medical Office Building 2 Radiation Oncology [address] [place] [address] 02/17/2024 Orders Only RAD ONC TREATMENTS Miscellaneous, Not In File 02/16/2024 11:30 AM CAKE KNOCKER Treatment [facility] Office [facility] 2 Radiation Oncology [address] [place] [address] 02/16/2024 8:30 AM CAKE KNOCKER [address] [phone] Malignant neoplasm of urinary bladder, unspecified site (HCC) (Primary Dx); Encounter for person encountering health services 02/16/2024 8:00 AM CAKE KNOCKER Office Visit [facility] [address] [place] [phone] Venkat Vivar DO Malignant neoplasm of urinary bladder, unspecified site (HCC) (Primary Dx); Encounter for person encountering health services 02/16/2024 7:30 AM CAKE KNOCKER [address] [address] Encounter for person encountering health services; Malignant neoplasm of urinary bladder, unspecified site (HCC) 02/16/2024 Orders Only RAD ONC TREATMENTS Miscellaneous, Not In File 02/15/2024 Orders Only [facility] Physicians [facility] Oncology [address] [place] [phone] Venkat Vivar, DO 02/13/2024 8:30 AM CAKE KNOCKER Treatment [facility] Medical Office Building 2 Radiation Oncology [address] [place] [address] 02/13/2024 OTV [facility] Office Building 2 Radiation Oncology [address] [place] [address] Richard Hargrove MD 02/13/2024 Orders Only RAD ONC TREATMENTS Miscellaneous, Not In File 02/12/2024 2:15 PM CAKE KNOCKER Infusion [facility] at [address] [phone] Malignant neoplasm of urinary bladder, unspecified site (HCC) (Primary Dx); Encounter for person encountering health services 02/12/2024 1:15 PM CAKE KNOCKER Lab [facility] at [address] [address] Encounter for person encountering health services; Malignant neoplasm of urinary bladder, unspecified site (HCC) 02/12/2024 12:45 PM CAKE KNOCKER Treatment [facility] Office [facility] 2 Radiation Oncology [address] [place] [address] 02/12/2024 Orders Only RAD ONC TREATMENTS Miscellaneous, Not In File 02/12/2024 Orders Only [facility] Physicians [facility] Oncology [address] [place] [phone] Venkat Vivar, DO 02/11/2024 8:30 AM CAKE KNOCKER Treatment [facility] Medical Office Building 2 Radiation Oncology [address] [place] [address] 02/11/2024 Orders Only RAD ONC TREATMENTS Miscellaneous, Not In File 02/10/2024 8:30 AM CAKE KNOCKER Treatment [facility] Medical Office Building 2 Radiation Oncology [address] [place] [address] 02/10/2024 Orders Only RAD ONC TREATMENTS Miscellaneous, Not In File 02/09/2024 2:30 PM CAKE KNOCKER Infusion [facility] at [address] [place] [phone] Malignant neoplasm of urinary bladder, unspecified site (HCC) (Primary Dx); Encounter for person encountering health services 02/09/2024 1:15 PM CAKE KNOCKER Lab [facility] at [address] [address] Encounter for person encountering health services; Malignant neoplasm of urinary bladder, unspecified site (HCC) 02/09/2024 1:00 PM CAKE KNOCKER Treatment [facility] Medical Office Building 2 Radiation Oncology [address] [place] [address] 02/09/2024 Orders Only RAD ONC TREATMENTS Miscellaneous, Not In File 02/08/2024 Orders Only [facility] [address] [place] [address] [place] [phone] Venkat Vivar DO 02/06/2024 9:30 AM CAKE KNOCKER Treatment [facility] Medical Office Building 2 Radiation Oncology [address] [place] [address] 02/06/2024 OTV [facility] Medical Office Building 2 Radiation Oncology [address] [place] [address] Richard Hargrove MD 02/06/2024 Orders Only RAD ONC TREATMENTS Miscellaneous, Not In File 02/05/2024 2:00 PM CAKE KNOCKER Infusion [facility] at [address] [phone] Malignant neoplasm of urinary bladder, unspecified site (HCC) (Primary Dx); Encounter for person encountering health services 02/05/2024 1:15 PM CAKE KNOCKER Lab [facility] at [address] [address] Encounter for person encountering health services; Malignant neoplasm of urinary bladder, unspecified site (HCC) 02/05/2024 12:45 PM CAKE KNOCKER Treatment [facility] Medical Office Building 2 Radiation Oncology [address] [place] [address] 02/05/2024 Orders Only RAD ONC TREATMENTS Miscellaneous, Not In File 02/04/2024 1:45 PM CAKE KNOCKER Treatment [facility] Medical Office Building 2 Radiation Oncology [address] [place] [address] 02/04/2024 Orders Only [facility] [address] [place] [phone] Venkat Vivar DO Encounter for person encountering health services (Primary Dx); Malignant neoplasm of urinary bladder, unspecified site (HCC) 02/04/2024 Orders Only RAD ONC TREATMENTS Miscellaneous, Not In File 02/03/2024 8:15 AM CAKE KNOCKER Treatment [facility] Office [facility] 2 Radiation Oncology [address] [place] [address] 02/03/2024 Orders Only RAD ONC TREATMENTS Miscellaneous, Not In File 2024 1:00 PM CAKE KNOCKER [facility] at [address] [phone] Malignant neoplasm of urinary bladder, unspecified site (HCC) (Primary Dx); Encounter for person encountering health services 2024 12:15 PM CAKE KNOCKER [facility] at [address] [address] Encounter for person encountering health services; Malignant neoplasm of urinary bladder, unspecified site (HCC) 2024 11:20 AM CAKE KNOCKER [facility] Office [facility] 2 Radiation Oncology [address] [place] [address] Richard Hargrove MD 2024 11:15 AM CAKE KNOCKER [facility] Office [facility] 2 Radiation Oncology [address] [place] [address] Richard Hargrove MD 2024 Orders Only RAD ONC TREATMENTS Miscellaneous, Not In File 2024 Orders Only [facility] Physicians [facility] Oncology [address] [place] [address] [address] [place] [phone] Venkat Vivar DO 01/30/2024 7:55 PM CDT Treatment [facility] Medical Office Building 2 Radiation Oncology [address] [place] [address] 01/23/2024 Orders Only [facility] Physicians [facility] Oncology [address] [place] [phone] Venkat Vivar DO Encounter for person encountering health services (Primary Dx); Malignant neoplasm of urinary bladder, unspecified site (HCC) 01/22/2024 1:30 PM CDT Treatment [facility] Medical Office Building 2 Radiation Oncology [address] [place] [address] Richard Hargrove MD 01/22/2024 1:00 PM CDT Consult [facility] Medical Office Building 2 Radiation Oncology [address] [place] [address] Richard Hargrove MD Malignant neoplasm of urinary [...] on file Legal Sex Male 2:03 AM CAKE KNOCKER Gender Identity Not on file Sexual Orientation Not on file Occupation Industry Job Start Date Job End Date Retired Not on file Not on file Not on file Obstetrics History Last Filed Vital Signs Vital Sign Reading Time Taken Comments Blood Pressure 118/75 03/01/2024 11:02 AM CAKE KNOCKER Pulse 60 03/01/2024 11:02 AM CAKE KNOCKER Temperature 36.8 ??C (98.2 ??F) 03/01/2024 11:[address] Respiratory Rate 18 03/01/2024 11:02 AM CAKE KNOCKER Oxygen Saturation 97% 03/01/2024 11:02 AM CAKE KNOCKER Inhaled Oxygen Concentration - - Weight 87.3 kg (192 lb 6.4 oz) 03/01/2024 11:02 AM CAKE KNOCKER no shoes Height 185.4 cm (6' 1 ) 02/25/2024 12:13 AM CAKE KNOCKER Body Mass Index 25.38 02/25/2024 12:13 AM CAKE KNOCKER Plan of Treatment Health Maintenance Due Date [...] ONC ARIA COURSE SUMMARY 03/01/2024 4:28 PM CAKE KNOCKER EGFR Routine 03/01/2024 10:46 AM CAKE KNOCKER Malignant neoplasm of urinary bladder, unspecified site (HCC) DIFFERENTIAL AUTO Routine 03/01/2024 10: 46 AM CAKE KNOCKER Malignant neoplasm of urinary bladder, unspecified site (HCC) CBC WITH AUTO DIFFERENTIAL Routine 03/01/2024 10:46 AM CAKE KNOCKER Malignant neoplasm of urinary bladder, unspecified site (HCC) COMPREHENSIVE METABOLIC PANEL Routine 03/01/2024 10:46 AM CAKE KNOCKER Malignant neoplasm of urinary bladder, unspecified site (HCC) RAD ONC ARIA SESSION SUMMARY 03/01/2024 9:55 AM CAKE KNOCKER RAD ONC ARIA SESSION SUMMARY 02/25/2024 9:[address] ABDOMEN PELVIS W CONTRAST ED 02/25/2024 1:24 AM CAKE KNOCKER EGFR STAT 02/25/2024 12:21 AM CAKE K[facility]OCKER DIFFERENTIAL AUTO STAT 02/25/2024 12: 21 AM CAKE [facility]ER LIPASE STAT 02/25/2024 12:21 AM CAKE KNOCKER COMPREHENSIVE METABOLIC PANEL STAT 02/25/2024 12:21 AM CAKE KNOCKER CBC WITH AUTO DIFFERENTIAL STAT 02/25/2024 12:21 AM CAKE KNOCKER RAD ONC ARIA SESSION SUMMARY 02/24/2024 9:44 AM CAKE KNOCKER EGFR Routine 02/23/2024 11:02 AM CAKE KNOCKER Encounter for person encountering health services Malignant neoplasm of urinary bladder, unspecified site (HCC) DIFFERENTIAL AUTO Routine 02/23/2024 11: 02 AM CAKE KNOCKER Encounter for person encountering health services Malignant neoplasm of urinary bladder, unspecified site (HCC) COMPREHENSIVE METABOLIC PANEL Routine 02/23/2024 11:02 AM CAKE KNOCKER Encounter for person encountering health services Malignant neoplasm of urinary bladder, unspecified site (HCC) CBC WITH AUTO DIFFERENTIAL Routine 02/23/2024 11:02 AM CAKE KNOCKER Encounter for person encountering health services Malignant neoplasm of urinary bladder, unspecified site (HCC) RAD ONC ARIA SESSION SUMMARY 02/23/2024 9:45 AM CAKE KNOCKER RAD ONC ARIA SESSION SUMMARY 02/22/2024 9:35 AM CAKE KNOCKER RAD ONC ARIA SESSION SUMMARY 02/20/2024 9:41 AM CAKE KNOCKER EGFR Routine 02/19/2024 11:23 AM CAKE KNOCKER Encounter for person encountering health services Malignant neoplasm of urinary bladder, unspecified site (HCC) DIFFERENTIAL AUTO Routine 02/19/2024 11: 23 AM CAKE KNOCKER Encounter for person encountering health services Malignant neoplasm of urinary bladder, unspecified site (HCC) COMPREHENSIVE METABOLIC PANEL Routine 02/19/2024 11:23 AM CAKE KNOCKER Encounter for person encountering health services Malignant neoplasm of urinary bladder, unspecified site (HCC) CBC WITH AUTO DIFFERENTIAL Routine 02/19/2024 11:23 AM CAKE [facility]NOCKER Encounter for person encountering health services Malignant neoplasm of urinary bladder, unspecified site (HCC) RAD ONC ARIA SESSION SUMMARY 02/19/2024 9:52 AM CAKE KNOCKER RAD ONC ARIA SESSION SUMMARY 02/18/2024 9:43 AM CAKE KNOCKER RAD ONC ARIA SESSION SUMMARY 02/17/2024 9:40 AM CAKE KNOCKER RAD ONC ARIA SESSION SUMMARY 02/16/2024 11:16 AM CAKE K[facility]OCKER EGFR Routine 02/16/2024 7:36 AM CAKE KNOCKER Encounter for person encountering health services Malignant neoplasm of urinary bladder, unspecified site (HCC) DIFFERENTIAL AUTO Routine 02/16/2024 7:3 6 AM CAKE KNOCKER Encounter for person encountering health services Malignant neoplasm of urinary bladder, unspecified site (HCC) COMPREHENSIVE METABOLIC PANEL Routine 02/16/2024 7:36 AM CAKE KNOCKER Encounter for person encountering health services Malignant neoplasm of urinary bladder, unspecified site (HCC) CBC WITH AUTO DIFFERENTIAL Routine 02/16/2024 7:36 AM CAKE [facility]NOCKER Encounter for person encountering health services Malignant neoplasm of urinary bladder, unspecified site (HCC) RAD ONC ARIA SESSION SUMMARY 02/13/2024 8:43 AM CAKE KNOCKER EGFR Routine 02/12/2024 1:17 PM CAKE KNOCKER Encounter for person encountering health services Malignant neoplasm of urinary bladder, unspecified site (HCC) DIFFERENTIAL AUTO Routine 02/12/2024 1:1 7 PM CAKE KNOCKER Encounter for person encountering health services Malignant neoplasm of urinary bladder, unspecified site (HCC) COMPREHENSIVE METABOLIC PANEL Routine 02/12/2024 1:17 PM CAKE KNOCKER Encounter for person encountering health services Malignant neoplasm of urinary bladder, unspecified site (HCC) CBC WITH AUTO DIFFERENTIAL Routine 02/12/2024 1:17 PM CAKE KNOCKER Encounter for person encountering health services Malignant neoplasm of urinary bladder, unspecified site (HCC) RAD ONC ARIA SESSION SUMMARY 02/12/2024 1:05 PM CAKE KNOCKER RAD ONC ARIA SESSION SUMMARY 02/11/2024 8:47 AM CAKE KNOCKER RAD ONC ARIA SESSION SUMMARY 02/10/2024 8:44 AM CAKE KNOCKER EGFR Routine 02/09/2024 1:26 PM CAKE KNOCKER Encounter for person encountering health services Malignant neoplasm of urinary bladder, unspecified site (HCC) DIFFERENTIAL AUTO Routine 02/09/2024 1:2 6 PM CAKE KNOCKER Encounter for person encountering health services Malignant neoplasm of urinary bladder, unspecified site (HCC) COMPREHENSIVE METABOLIC PANEL Routine 02/09/2024 1:26 PM CAKE KNOCKER Encounter for person encountering health services Malignant neoplasm of urinary bladder, unspecified site (HCC) CBC WITH AUTO DIFFERENTIAL Routine 02/09/2024 1:26 PM CAKE KNOCKER Encounter for person encountering health services Malignant neoplasm of urinary bladder, unspecified site (HCC) RAD ONC ARIA SESSION SUMMARY 02/09/2024 1:16 PM CAKE KNOCKER RAD ONC ARIA SESSION SUMMARY 02/06/2024 9:41 AM CAKE KNOCKER EGFR Routine 02/05/2024 1:18 PM CAKE KNOCKER Encounter for person encountering health services Malignant neoplasm of urinary bladder, unspecified site (HCC) DIFFERENTIAL AUTO Routine 02/05/2024 1:1 8 PM CAKE KNOCKER Encounter for person encountering health services Malignant neoplasm of urinary bladder, unspecified site (HCC) COMPREHENSIVE METABOLIC PANEL Routine 02/05/2024 1:18 PM CAKE KNOCKER Encounter for person encountering health services Malignant neoplasm of urinary bladder, unspecified site (HCC) CBC WITH AUTO DIFFERENTIAL Routine 02/05/2024 1:18 PM CAKE KNOCKER Encounter for person encountering health services Malignant neoplasm of urinary bladder, unspecified site (HCC) RAD ONC ARIA SESSION SUMMARY 02/05/2024 12:55 PM CAKE KNOCKER RAD ONC ARIA SESSION SUMMARY 02/04/2024 1:54 PM CAKE KNOCKER RAD ONC ARIA SESSION SUMMARY 02/03/2024 8:21 AM CAKE KNOCKER EGFR Routine 2024 12:47 PM CAKE KNOCKER Encounter for person encountering health services Malignant neoplasm of urinary bladder, unspecified site (HCC) DIFFERENTIAL AUTO Routine 2024 12: 47 PM CAKE KNOCKER Encounter for person encountering health services Malignant neoplasm of urinary bladder, unspecified site (HCC) COMPREHENSIVE METABOLIC PANEL Routine 2024 12:47 PM CAKE KNOCKER Encounter for person encountering health services Malignant neoplasm of urinary bladder, unspecified site (HCC) CBC WITH AUTO DIFFERENTIAL Routine 2024 12:47 PM CAKE KNOCKER Encounter for person encountering health services Malignant neoplasm of urinary bladder, unspecified site (HCC) RAD ONC ARIA SESSION SUMMARY 2024 11:28 AM CAKE KNOCKER from Last 3 Months Results * RAD ONC ARIA COURSE SUMMARY (03/01/2024 4:28 PM CAKE KNOCKER) Course Name [email or web address]_ 2023 ARIA Course Plan Date 01/22/2024 3:44 PM ARIA Elapsed Days 28 ARIA Treatment Start Date 2024 ARIA Treatment Site BLADDER ARIA Dose Given To Date (cGy) 5,500 ARIA Session Dosage Given (cGy) 0 ARIA Plan ID BLADDER ARIA Fractions Treated 20 ARIA Prescribed Dose Per Fraction (cGy) 275 ARIA Prescribed Total Dose (cGy) 5,500 ARIA 03/01/2024 4:28 PM CAKE KNOCKER us Not In File Miscellaneous RADIATION ONCOLOGY ORD ERABLES Final Result ARIA * eGFR (03/01/2024 10:46 AM CAKE KNOCKER) eGFR >90 >=60 mL/min/1. 73 m2 Comment: [...] was last reviewed 2021. Testing performed by: [address] [address] Blood 03/01/2024 10:4 6 AM CAKE KNOCKER 03/01/2024 10:50 AM CAKE KNOCKER us Venkat Vivar DO LAB BLOOD ORDERABLES Final R esult JAIME [address] [facility] Department [place] [address] * (ABNORMAL) Differential, auto (03/01/2024 10:46 AM CAKE KNOCKER) Neutrophil abs 5.6 1.5 - 6.5 K/cumm Comment:Testing performed by : [address] [address] Imm gran abs 0.1 0.0 - 0.1 K/cumm JAIME PINEDA Comment:Testing performed by : [address] [address] Lymphocyte abs 0.6(L) 0.8 - 3.3 K/cumm JAIME PINEDA Comment:Testing performed by : [address] [address] Monocyte abs 1.2(H) 0.2 - 0.8 K/cumm JAIME Comment:Testing performed by : [address] [address] Eosinophil abs 0.1 0.0 - 0.5 K/cumm JAIME Comment:Testing performed by : [address] [address] Basophil abs 0.0 0.0 - 0.1 K/cumm [facility] Comment:Testing performed by : [address] [address] Neutrophil pct 73.8 % [facility] Comment: Interpretive Data Percent cell count reference ranges are not reported, since discordance with absolute values may lead to misinterpretation of CBC data. Current Interpretive Data was last revised on 2017. Testing performed by: [address] [address] Imm gran pct 1.1 % [facility] Comment: Interpretive Data Percent cell count reference ranges are not reported, since discordance with absolute values may lead to misinterpretation of CBC data. Current Interpretive Data was last revised on 2017. Testing performed by: [address] [address] Lymphocyte pct 7.5 % [facility] Comment: Interpretive Data Percent cell count reference ranges are not reported, since discordance with absolute values may lead to misinterpretation of CBC data. Current Interpretive Data was last revised on 2017. Testing performed by: [address] [address] Monocyte pct 16.1 % [facility] Comment: Interpretive Data Percent cell count reference ranges are not reported, since discordance with absolute values may lead to misinterpretation of CBC data. Current Interpretive Data was last revised on 2017. Testing performed by: [address] [address] Eosinophil pct 1.2 % [facility] Comment: Interpretive Data Percent cell count reference ranges are not reported, since discordance with absolute values may lead to misinterpretation of CBC data. Current Interpretive Data was last revised on 2017. Testing performed by: [address] [address] Basophil pct 0.3 % CERNER Comment: Interpretive Data Percent cell count reference ranges are not reported, since discordance with absolute values may lead to misinterpretation of CBC data. Current Interpretive Data was last revised on 2017. Testing performed by: [address] [address] Blood 03/01/2024 10:4 6 AM CAKE KNOCKER 03/01/2024 10:50 AM CAKE KNOCKER Venkat Vivar DO LAB BLOOD ORDERABLES Final R esult [facility] [address] [facility] Department [place] [address] * (ABNORMAL) CBC with auto differential (03/01/2024 10:46 AM CAKE KNOCKER) WBC 7.6 3.8 - 9.9 K/cumm Comment:Testing performed by : [address] [address] Hgb 10.8(L) 13.0 - 17.5 g/dL JAIME Comment:Testing performed by : [address] [address] Hct 31.6(L) 38.9 - 50.3 % JAIME Comment:Testing performed by : [address] [address] Plt 267 150 - 400 K/cumm JAIME Comment:Testing performed by : [address] [address] MPV 8.6(L) 9.1 - 12.3 fL JAIME Comment:Testing performed by : [address] [address] RBC 3.23(L) 4.30 - 5.80 M/cumm JAIME Comment:Testing performed by : [address] [address] MCV 97.8(H) 81.3 - 96.4 fL JAIME Comment:Testing performed by : [address] [address] MCH 33.4(H) 27.1 - 33.3 pg JAIME PINEDA Comment:Testing performed by : [address] [address] MCHC 34.2 32.3 - 35.7 g/dL JAIME PINEDA Comment:Testing performed by : [address] [address] RDW CV 16.7(H) 11.1 - 14.9 % JAIME PINEDA Comment:Testing performed by : [address] [address] RDW SD 54.2(H) 35.7 - 48.1 fL JAIME PINEDA Comment:Testing performed by : [address] [address] NRBC abs 0.00 0.00 - 0.01 K/cumm JAIME PINEDA Comment:Testing performed by : [address] [address] Blood 03/01/2024 10:4 6 AM CAKE KNOCKER 03/01/2024 10:50 AM CAKE KNOCKER us Venkat Vivar DO LAB BLOOD ORDERABLES Final R esult JAIME [address] [facility] Department of Laboratories [place], [place] [id number] * Comprehensive metabolic panel (03/01/2024 10:46 AM CAKE KNOCKER) Sodium 138 135 - 145 mmol/L Comment:Testing performed by : [address] [address] Potassium, pl 3.8 3.3 - 4.9 mmol/L JAIME PINEDA Comment:Testing performed by : [address] [address] Chloride 102 97 - 110 mmol/L JAIME PINEDA Comment:Testing performed by : [address] [address] CO2 26 22 - 32 mmol/L JAIME PINEDA Comment:Testing performed by : [address] [address] Anion gap 10 2 - 15 mmol/L JAIME Comment:Testing performed by : [address] [address] BUN 17 6 - 25 mg/dL JAIME Comment:Testing performed by : [address] [address] Creatinine 0.80 0.80 - 1.30 mg/dL JAIME Comment:Testing performed by : [address] [address] Glucose 119 70 - 199 mg/dL [facility] Comment: Interpretive Data Fasting glucose >/= [...] was last revised 2022. Testing performed by: [address] [address] Calcium 9.1 8.5 - 10.3 mg/dL [facility] Comment:Testing performed by : [address] [address] Bilirubin, total 0.7 0.1 - 1.2 mg/dL [facility] Comment:Testing performed by : [address] [address] Protein, pl 7.3 6.5 - 8.5 g/dL [facility] Comment:Testing performed by : [address] [address] Albumin 3.9 3.5 - 5.0 g/dL JAIME Comment:Testing performed by : [address] [address] Alk phos 76 40 - 130 Units/L JAIME Comment:Testing performed by : [address] [address] ALT 24 7 - 55 Units/L JAIME Comment:Testing performed by : [facility], [address] [place] [address]., [address] AST 17 10 - 50 Units/L JAIME Comment:Testing performed by : [facility], [address] [place] [address]., [address] Blood 03/01/2024 10:4 6 AM CAKE KNOCKER 03/01/2024 10:50 AM CAKE KNOCKER us Venkat Vivar DO LAB BLOOD ORDERABLES Final R esult JAIME [address] [facility] Department [place] [address] * RAD ONC ARIA SESSION SUMMARY (03/01/2024 9:55 AM CAKE KNOCKER) Course Name C1_BLADDER_ 2023 ARIA Course Plan Date 01/22/2024 3:44 PM ARIA Elapsed Days 28 ARIA Treatment Start Date 2024 ARIA Treatment Site BLADDER ARIA Dose Given To Date (cGy) 5,500 ARIA Session Dosage Given (cGy) 275 ARIA Plan ID BLADDER ARIA Fractions Treated 20 ARIA Prescribed Dose Per Fraction (cGy) 275 ARIA Prescribed Total Dose (cGy) 5,500 ARIA 03/01/2024 9:55 AM CAKE KNOCKER us Not In File Miscellaneous RADIATION ONCOLOGY ORD ERABLES Final Result ARIGeetha * RAD ONC ARIA SESSION SUMMARY (02/25/2024 9:45 AM CAKE KNOCKER) Course Name C1_BLADDER_ 2023 ARIA Course Plan Date 01/22/2024 3:44 PM ARIA Elapsed Days 23 ARIA Treatment Start Date 2024 ARIA Treatment Site BLADDER ARIA Dose Given To Date (cGy) 5,225 ARIA Session Dosage Given (cGy) 275 ARIA Plan ID BLADDER ARIA Fractions Treated 19 ARIA Prescribed Dose Per Fraction (cGy) 275 ARIA Prescribed Total Dose (cGy) 5,500 ARIA 02/25/2024 9:45 AM CAKE KNOCKER us Not In File Miscellaneous RADIATION ONCOLOGY ORD ERABLES Final Result ARIA * CT Abdomen Pelvis W Contrast (02/25/2024 1:24 AM CAKE KNOCKER) Anatomical Region Laterality Modality Body N/A Computed Tomogra phy 02/25/2024 1:32 AM CAKE KNOCKER Narrative 02/25/2024 1:44 AM CAKE KNOCKER EXAM DESCRIPTION: ?? CT ABDOMEN PELVIS W [...] AM T: ??02/25/2024 1:44 AM Report ID: [id number] Reading Location: ??[id number] Procedure Note Camilla Aguirre MD - 02/25/2024 [...] by Camilla Aguirre M.D. SN: Report ID: [id number] Reading Location: [place] [address] Kwaku Roland Jr., MD IMG CT PROCEDURES Final Result * eGFR (02/25/2024 12:21 AM CAKE KNOCKER) eGFR >90 >=60 mL/min/1. 73 m2 Comment: [...] was last reviewed 2021. Testing performed by: [address] [address] Blood 02/25/2024 12:2 1 AM CAKE KNOCKER 02/25/2024 12:31 AM CAKE KNOCKER us Kwaku Roland Jr., MD LAB BLOOD ORDERABLES Fi nal Result [facility] [address] [facility] Department of Laboratories [place], [place] [id number] * (ABNORMAL) Differential, auto (02/25/2024 12:21 AM CAKE KNOCKER) Neutrophil abs 4.5 1.5 - 6.5 K/cumm Comment:Testing performed by : [address] [address] Imm gran abs 0.0 0.0 - 0.1 K/cumm JAIME Comment:Testing performed by : [address] [address] Lymphocyte abs 0.5(L) 0.8 - 3.3 K/cumm JAIME Comment:Testing performed by : [address] [address] Monocyte abs 0.5 0.2 - 0.8 K/cumm JAIME Comment:Testing performed by : [address] [address] Eosinophil abs 0.1 0.0 - 0.5 K/cumm JAIME Comment:Testing performed by : [address] [address] Basophil abs 0.0 0.0 - 0.1 K/cumm JAIME Comment:Testing performed by : [address] [address] Neutrophil pct 80.8 % JAIME Comment: Interpretive Data Percent cell count reference ranges are not reported, since discordance with absolute values may lead to misinterpretation of CBC data. Current Interpretive Data was last revised on 2017. Testing performed by: [address] [address] Imm gran pct 0.7 % [facility] Comment: Interpretive Data Percent cell count reference ranges are not reported, since discordance with absolute values may lead to misinterpretation of CBC data. Current Interpretive Data was last revised on 2017. Testing performed by: [address] [address] Lymphocyte pct 8.5 % [facility] Comment: Interpretive Data Percent cell count reference ranges are not reported, since discordance with absolute values may lead to misinterpretation of CBC data. Current Interpretive Data was last revised on 2017. Testing performed by: [address] [address] Monocyte pct 8.3 % [facility] Comment: Interpretive Data Percent cell count reference ranges are not reported, since discordance with absolute values may lead to misinterpretation of CBC data. Current Interpretive Data was last revised on 2017. Testing performed by: [address] [address] Eosinophil pct 1.3 % [facility] Comment: Interpretive Data Percent cell count reference ranges are not reported, since discordance with absolute values may lead to misinterpretation of CBC data. Current Interpretive Data was last revised on 2017. Testing performed by: [address] [address] Basophil pct 0.4 % [facility] Comment: Interpretive Data Percent cell count reference ranges are not reported, since discordance with absolute values may lead to misinterpretation of CBC data. Current Interpretive Data was last revised on 2017. Testing performed by: [address] [address] Blood 02/25/2024 12:2 1 AM CAKE KNOCKER 02/25/2024 12:31 AM CAKE KNOCKER us Kwaku Roland Jr., MD LAB BLOOD ORDERABLES Fi nal Result JAIME [address] [facility] Department [place] [address] * (ABNORMAL) CBC with auto differential (02/25/2024 12:21 AM CAKE KNOCKER) [facility] WBC 5.5 3.8 - 9.9 K/cumm Comment:Testing performed by : [address] [address] Hgb 10.8(L) 13.0 - 17.5 g/dL JAIME Comment:Testing performed by : [address], [address] Hct 30.5(L) 38.9 - 50.3 % JAIME Comment:Testing performed by : [address] [address] Plt 164 150 - 400 K/cumm JAIME Comment:Testing performed by : [address] [address] MPV 8.8(L) 9.1 - 12.3 fL JAIME Comment:Testing performed by : [address], [address] RBC 3.15(L) 4.30 - 5.80 M/cumm JAIME Comment:Testing performed by : [address] [address] MCV 96.8(H) 81.3 - 96.4 fL CERYUSUF Comment:Testing performed by : [address] [address] MCH 34.3(H) 27.1 - 33.3 pg CERYUSUF Comment:Testing performed by : [address], [address] MCHC 35.4 32.3 - 35.7 g/dL [facility]F Comment:Testing performed by : [address], [address] RDW CV 15.7(H) 11.1 - 14.9 % JAIME Comment:Testing performed by : [address], [address] RDW SD 50.6(H) 35.7 - 48.1 fL CERYUSUF PINEDA Comment:Testing performed by : [address] [address] NRBC abs 0.00 0.00 - 0.01 K/cumm JAIME PINEDA Comment:Testing performed by : [address] [address] Blood (Blood, Venous) 02/25/2024 12:21 AM CAKE KNOCKER 02/25/2024 12:31 AM CAKE KNOCKER Kwaku Roland Jr., MD LAB BLOOD ORDERABLES Fi nal Result Performing Organization Address [facility] Co de Phone Number [address] [address] * Lipase (02/25/2024 12:21 AM CAKE KNOCKER) [facility] Lipase 27 10 - 99 Units/L Comment:Testing performed by : [address] [address] Blood (Blood, Venous) 02/25/2024 12:21 AM CAKE KNOCKER 02/25/2024 12:31 AM CAKE KNOCKER Kwaku Roland Jr., MD LAB BLOOD ORDERABLES Fi nal Result Performing Organization Address [facility] de Phone Number [address] [address] * (ABNORMAL) Comprehensive metabolic panel (02/25/2024 12:21 AM CAKE KNOCKER) [facility] Sodium 138 135 - 145 mmol/L Comment:Testing performed by : [address] [address] Potassium, pl 3.6 3.3 - 4.9 mmol/L JAIME PINEDA Comment:Testing performed by : [address] [address] Chloride 103 97 - 110 mmol/L JAMIE PINEDA Comment:Testing performed by : [address] [address] CO2 23 22 - 32 mmol/L JAIME PINEDA Comment:Testing performed by : [address] [address] Anion gap 12 2 - 15 mmol/L JAIME Comment:Testing performed by : [address] [address] BUN 12 6 - 25 mg/dL JAIME Comment:Testing performed by : [address], [place]., [address] Creatinine 0.70(L) 0.80 - 1.30 mg/dL JAIME Comment:Testing performed by : [address] [address] Glucose 130 70 - 199 mg/dL JAIME [...] was last revised 2022. Testing performed by: [address] [address] Calcium 9.2 8.5 - 10.3 mg/dL JAIME Comment:Testing performed by : [address] [address] Bilirubin, total 0.6 0.1 - 1.2 mg/dL JAIME Comment:Testing performed by : [address] [address] Protein, pl 7.3 6.5 - 8.5 g/dL JAIME Comment:Testing performed by : [address] [address] Albumin 3.8 3.5 - 5.0 g/dL JAIME Comment:Testing performed by : [address] [address] Alk phos 77 40 - 130 Units/L JAIME Comment:Testing performed by : [address] [address] ALT 21 7 - 55 Units/L JAIME Comment:Testing performed by : [facility], [address] [place] [address], [address] AST 17 10 - 50 Units/L JAIME Comment:Testing performed by : [facility], [address] [place] [address]., [address] Blood 02/25/2024 12:2 1 AM CAKE KNOCKER 02/25/2024 12:31 AM CAKE KNOCKER Kwaku Roland Jr., MD LAB BLOOD ORDERABLES Fi nal Result [facility] [address] [facility] Department [place] [address] * RAD ONC ARIA SESSION SUMMARY (02/24/2024 9:44 AM CAKE KNOCKER) Course Name C1_BLADDER_ 2023 ARIA Course Plan Date 01/22/2024 3:44 PM ARIA Elapsed Days 22 ARIA Treatment Start Date 2024 ARIA Treatment Site BLADDER ARIA Dose Given To Date (cGy) 4,950 ARIA Session Dosage Given (cGy) 275 ARIA Plan ID BLADDER ARIA Fractions Treated 18 ARIA Prescribed Dose Per Fraction (cGy) 275 ARIA Prescribed Total Dose (cGy) 5,500 ARIA 02/24/2024 9:44 AM CAKE KNOCKER Not In File Miscellaneous RADIATION ONCOLOGY ORD ERABLES Final Result ARIA * eGFR (02/23/2024 11:02 AM CAKE KNOCKER) eGFR 89 >=60 mL/min/1. 73 m2 Comment: [...] was last reviewed 2021. Testing performed by: [address] [address] Blood 02/23/2024 11:0 2 AM CAKE KNOCKER 02/23/2024 11:04 AM CAKE KNOCKER us Venkat Vivar DO LAB BLOOD ORDERABLES Final R esult JAIME [address] [facility] Department [place] [address] * (ABNORMAL) Differential, auto (02/23/2024 11:02 AM CAKE KNOCKER) Neutrophil abs 3.9 1.5 - 6.5 K/cumm Comment:Testing performed by : [address] [address] Imm gran abs 0.0 0.0 - 0.1 K/cumm JAIME PINEDA Comment:Testing performed by : [address] [address] Lymphocyte abs 0.5(L) 0.8 - 3.3 K/cumm JAIME PINEDA Comment:Testing performed by : [address] [address] Monocyte abs 0.4 0.2 - 0.8 K/cumm JAIME Comment:Testing performed by : [address] [address] Eosinophil abs 0.1 0.0 - 0.5 K/cumm JAIME Comment:Testing performed by : [address] [address] Basophil abs 0.0 0.0 - 0.1 K/cumm JAIME Comment:Testing performed by : [address] [address] Neutrophil pct 78.5 % [facility] Comment: Interpretive Data Percent cell count reference ranges are not reported, since discordance with absolute values may lead to misinterpretation of CBC data. Current Interpretive Data was last revised on 2017. Testing performed by: [address] [address] Imm gran pct 0.6 % [facility] Comment: Interpretive Data Percent cell count reference ranges are not reported, since discordance with absolute values may lead to misinterpretation of CBC data. Current Interpretive Data was last revised on 2017. Testing performed by: [address] [address] Lymphocyte pct 10.4 % [facility] Comment: Interpretive Data Percent cell count reference ranges are not reported, since discordance with absolute values may lead to misinterpretation of CBC data. Current Interpretive Data was last revised on 2017. Testing performed by: [address] [address] Monocyte pct 7.5 % [facility] Comment: Interpretive Data Percent cell count reference ranges are not reported, since discordance with absolute values may lead to misinterpretation of CBC data. Current Interpretive Data was last revised on 2017. Testing performed by: [address] [address] Eosinophil pct 2.6 % [facility] Comment: Interpretive Data Percent cell count reference ranges are not reported, since discordance with absolute values may lead to misinterpretation of CBC data. Current Interpretive Data was last revised on 2017. Testing performed by: [address] [address] Basophil pct 0.4 % CERNER Comment: Interpretive Data Percent cell count reference ranges are not reported, since discordance with absolute values may lead to misinterpretation of CBC data. Current Interpretive Data was last revised on 2017. Testing performed by: [address] [address] Blood 02/23/2024 11:0 2 AM CAKE KNOCKER 02/23/2024 11:04 AM CAKE KNOCKER Venkat Vivar DO LAB BLOOD ORDERABLES Final R esult [facility] [address] [facility] Department [place] [address] * (ABNORMAL) CBC with auto differential (02/23/2024 11:02 AM CAKE KNOCKER) WBC 4.9 3.8 - 9.9 K/cumm Comment:Testing performed by : [address] [address] Hgb 10.6(L) 13.0 - 17.5 g/dL JAIME Comment:Testing performed by : [address] [address] Hct 30.6(L) 38.9 - 50.3 % JAIME Comment:Testing performed by : [address] [address] Plt 146(L) 150 - 400 K/cumm JAIME Comment:Testing performed by : [address] [address] MPV 8.6(L) 9.1 - 12.3 fL JAIME Comment:Testing performed by : [address] [address] RBC 3.18(L) 4.30 - 5.80 M/cumm JAIME Comment:Testing performed by : [address] [address] MCV 96.2 81.3 - 96.4 fL JAIME Comment:Testing performed by : [address] [address] MCH 33.3 27.1 - 33.3 pg JAIME PINEDA Comment:Testing performed by : [address] [address] MCHC 34.6 32.3 - 35.7 g/dL JAIME PINEDA Comment:Testing performed by : [address] [address] RDW CV 15.0(H) 11.1 - 14.9 % JAIME PINEDA Comment:Testing performed by : [address] [address] RDW SD 49.3(H) 35.7 - 48.1 fL JAIME PINEDA Comment:Testing performed by : [address] [address] NRBC abs 0.00 0.00 - 0.01 K/cumm JAIME PINEDA Comment:Testing performed by : [address] [address] Blood 02/23/2024 11:0 2 AM CAKE KNOCKER 02/23/2024 11:04 AM CAKE KNOCKER us Venkat Vivar DO LAB BLOOD ORDERABLES Final R esult JAIME PINEDA [facility] Department of Laboratories [place], [place] [id number] * Comprehensive metabolic panel (02/23/2024 11:02 AM CAKE KNOCKER) Sodium 141 135 - 145 mmol/L Comment:Testing performed by : [address] [address] Potassium, pl 4.1 3.3 - 4.9 mmol/L JAIME PINEDA Comment:Testing performed by : [address] [address] Chloride 104 97 - 110 mmol/L JAIME PINEDA Comment:Testing performed by : [address] [address] CO2 27 22 - 32 mmol/L JAIME PINEDA Comment:Testing performed by : [address] [address] Anion gap 10 2 - 15 mmol/L JAIME Comment:Testing performed by : [address] [address] BUN 17 6 - 25 mg/dL JAIME Comment:Testing performed by : [address] [address] Creatinine 0.90 0.80 - 1.30 mg/dL JAIME Comment:Testing performed by : [address] [address] Glucose 115 70 - 199 mg/dL [facility] Comment: Interpretive Data Fasting glucose >/= [...] was last revised 2022. Testing performed by: [address] [address] Calcium 9.0 8.5 - 10.3 mg/dL [facility] Comment:Testing performed by : [address] [address] Bilirubin, total 0.5 0.1 - 1.2 mg/dL [facility] Comment:Testing performed by : [address] [address] Protein, pl 7.1 6.5 - 8.5 g/dL [facility] Comment:Testing performed by : [address] [address] Albumin 3.8 3.5 - 5.0 g/dL [facility] Comment:Testing performed by : [address] [address] Alk phos 75 40 - 130 Units/L JAIME Comment:Testing performed by : [address] [address] ALT 19 7 - 55 Units/L JAIME Comment:Testing performed by : [facility], [address] [place] [address]., [address] AST 17 10 - 50 Units/L JAIME Comment:Testing performed by : [facility], [address] [place] [address]., [address] Blood 02/23/2024 11:0 2 AM CAKE KNOCKER 02/23/2024 11:04 AM CAKE KNOCKER us Venkat Vivar DO LAB BLOOD ORDERABLES Final R esult JAIME [address] [facility] Department [place] [address] * RAD ONC ARIA SESSION SUMMARY (02/23/2024 9:45 AM CAKE KNOCKER) Course Name C1_BLADDER_ 2023 ARIA Course Plan Date 01/22/2024 3:44 PM ARIA Elapsed Days 21 ARIA Treatment Start Date 2024 ARIA Treatment Site BLADDER ARIA Dose Given To Date (cGy) 4,675 ARIA Session Dosage Given (cGy) 275 ARIA Plan ID BLADDER ARIA Fractions Treated 17 ARIA Prescribed Dose Per Fraction (cGy) 275 ARIA Prescribed Total Dose (cGy) 5,500 ARIA 02/23/2024 9:45 AM CAKE KNOCKER Not In File Miscellaneous RADIATION ONCOLOGY ORD ERABLES Final Result ARIA * RAD ONC ARIA SESSION SUMMARY (02/22/2024 9:35 AM CAKE KNOCKER) Course Name C1_BLADDER_ 2023 ARIA Course Plan Date 01/22/2024 3:44 PM ARIA Elapsed Days 20 ARIA Treatment Start Date 2024 ARIA Treatment Site BLADDER ARIA Dose Given To Date (cGy) 4,400 ARIA Session Dosage Given (cGy) 275 ARIA Plan ID BLADDER ARIA Fractions Treated 16 ARIA Prescribed Dose Per Fraction (cGy) 275 ARIA Prescribed Total Dose (cGy) 5,500 ARIA 02/22/2024 9:35 AM CAKE KNOCKER us Not In File Miscellaneous RADIATION ONCOLOGY ORD ERABLES Final Result Performing Organization Address [facility] de Phone Number LADONNA * RAD ONC ARIA SESSION SUMMARY (02/20/2024 9:41 AM CAKE KNOCKER) Course Name C1_BLADDER_ 2023 ARIA Course Plan Date 01/22/2024 3:44 PM ARIA Elapsed Days 18 ARIA Treatment Start Date 2024 ARIA Treatment Site BLADDER ARIA Dose Given To Date (cGy) 4,125 ARIA Session Dosage Given (cGy) 275 ARIA Plan ID BLADDER ARIA Fractions Treated 15 ARIA Prescribed Dose Per Fraction (cGy) 275 ARIA Prescribed Total Dose (cGy) 5,500 ARIA 02/20/2024 9:41 AM CAKE KNOCKER us Not In File Miscellaneous RADIATION ONCOLOGY ORD ERABLES Final Result Performing Organization Address [facility] de Phone Number ARIGeetha * eGFR (02/19/2024 11:23 AM CAKE KNOCKER) eGFR 89 >=60 mL/min/1. 73 m2 Comment: [...] was last reviewed 2021. Testing performed by: [address] [address] Blood 02/19/2024 11:2 3 AM CAKE KNOCKER 02/19/2024 11:26 AM CAKE KNOCKER us Venkat Vivar DO LAB BLOOD ORDERABLES Final R esult JAIME PINEDA [facility] Department [place] [address] * (ABNORMAL) Differential, auto (02/19/2024 11:23 AM CAKE KNOCKER) Neutrophil abs 3.9 1.5 - 6.5 K/cumm Comment:Testing performed by : [address] [address] Imm gran abs 0.0 0.0 - 0.1 K/cumm JAIME Comment:Testing performed by : [address] [address] Lymphocyte abs 0.6(L) 0.8 - 3.3 K/cumm JAIME Comment:Testing performed by : [address] [address] Monocyte abs 0.3 0.2 - 0.8 K/cumm JAIME Comment:Testing performed by : [address] [address] Eosinophil abs 0.2 0.0 - 0.5 K/cumm JAIME Comment:Testing performed by : [address] [address] Basophil abs 0.0 0.0 - 0.1 K/cumm JAIME Comment:Testing performed by : [address] [address] Neutrophil pct 78.4 % [facility] Comment: Interpretive Data Percent cell count reference ranges are not reported, since discordance with absolute values may lead to misinterpretation of CBC data. Current Interpretive Data was last revised on 2017. Testing performed by: [address] [address] Imm gran pct 0.4 % [facility] Comment: Interpretive Data Percent cell count reference ranges are not reported, since discordance with absolute values may lead to misinterpretation of CBC data. Current Interpretive Data was last revised on 2017. Testing performed by: [address] [address] Lymphocyte pct 11.4 % [facility] Comment: Interpretive Data Percent cell count reference ranges are not reported, since discordance with absolute values may lead to misinterpretation of CBC data. Current Interpretive Data was last revised on 2017. Testing performed by: [address] [address] Monocyte pct 6.2 % [facility] Comment: Interpretive Data Percent cell count reference ranges are not reported, since discordance with absolute values may lead to misinterpretation of CBC data. Current Interpretive Data was last revised on 2017. Testing performed by: [address] [address] Eosinophil pct 3.2 % [facility] Comment: Interpretive Data Percent cell count reference ranges are not reported, since discordance with absolute values may lead to misinterpretation of CBC data. Current Interpretive Data was last revised on 2017. Testing performed by: [address] [address] Basophil pct 0.4 % [facility] Comment: Interpretive Data Percent cell count reference ranges are not reported, since discordance with absolute values may lead to misinterpretation of CBC data. Current Interpretive Data was last revised on 2017. Testing performed by: [address] [address] Blood 02/19/2024 11:2 3 AM CAKE KNOCKER 02/19/2024 11:26 AM CAKE KNOCKER Venkat Vivar DO LAB BLOOD ORDERABLES Final R esult [facility] [address] [facility] Department [place] [address] * (ABNORMAL) CBC with auto differential (02/19/2024 11:23 AM CAKE KNOCKER) [facility] WBC 5.0 3.8 - 9.9 K/cumm Comment:Testing performed by : [address] [address] Hgb 10.8(L) 13.0 - 17.5 g/dL JAIME Comment:Testing performed by : [address] [address] Hct 31.2(L) 38.9 - 50.3 % JAIME Comment:Testing performed by : [address] [address] Plt 88(L) 150 - 400 K/cumm JAIME Comment:Testing performed by : [address] [address] MPV 9.0(L) 9.1 - 12.3 fL JAIME Comment:Testing performed by : [address] [address] RBC 3.25(L) 4.30 - 5.80 M/cumm JAIME Comment:Testing performed by : [address] [address] MCV 96.0 81.3 - 96.4 fL JAIME Comment:Testing performed by : [address] [address] MCH 33.2 27.1 - 33.3 pg JAIME Comment:Testing performed by : [address] [address] MCHC 34.6 32.3 - 35.7 g/dL JAIME Comment:Testing performed by : [address] [address] RDW CV 14.6 11.1 - 14.9 % JAIME Comment:Testing performed by : [address] [address] RDW SD 49.1(H) 35.7 - 48.1 fL JAIME Comment:Testing performed by : [address] [address] NRBC abs 0.00 0.00 - 0.01 K/cumm JAIME PINEDA Comment:Testing performed by : [address] [address] Blood 02/19/2024 11:2 3 AM CAKE KNOCKER 02/19/2024 11:26 AM CAKE KNOCKER us Venkat Vivar DO LAB BLOOD ORDERABLES Final R esult [facility] [address] [facility] Department [place] [address] * Comprehensive metabolic panel (02/19/2024 11:23 AM CAKE KNOCKER) Sodium 141 135 - 145 mmol/L Comment:Testing performed by : [address] [address] Potassium, pl 3.9 3.3 - 4.9 mmol/L JAIME Comment:Testing performed by : [address] [address] Chloride 103 97 - 110 mmol/L JAIME Comment:Testing performed by : [address] [address] CO2 28 22 - 32 mmol/L JAIME Comment:Testing performed by : [address] [address] Anion gap 10 2 - 15 mmol/L JAIME Comment:Testing performed by : [address] [address] BUN 12 6 - 25 mg/dL JAIME Comment:Testing performed by : [address] [address] Creatinine 0.90 0.80 - 1.30 mg/dL JAIME Comment:Testing performed by : [address] [address] Glucose 148 70 - 199 mg/dL JAIME [...] was last revised 2022. Testing performed by: [address] [address] Calcium 8.8 8.5 - 10.3 mg/dL JAIME Comment:Testing performed by : [address] [address] Bilirubin, total 0.6 0.1 - 1.2 mg/dL JAIME Comment:Testing performed by : [address] [address] Protein, pl 6.9 6.5 - 8.5 g/dL JAIME Comment:Testing performed by : [address] [address] Albumin 3.9 3.5 - 5.0 g/dL JAIME Comment:Testing performed by : [address] [address] Alk phos 74 40 - 130 Units/L JAIME Comment:Testing performed by : [address] [address] ALT 15 7 - 55 Units/L JAIME Comment:Testing performed by : [address] [address] AST 15 10 - 50 Units/L JAIME Comment:Testing performed by : [address] [address] Blood 02/19/2024 11:2 3 AM CAKE KNOCKER 02/19/2024 11:26 AM CAKE KNOCKER Venkat Vivar DO LAB BLOOD ORDERABLES Final R esult [facility] [address] [facility] Department [place] [address] * RAD ONC ARIA SESSION SUMMARY (02/19/2024 9:52 AM CAKE KNOCKER) Course Name C1_BLADDER_ 2023 ARIA Course Plan Date 01/22/2024 3:44 PM ARIA Elapsed Days 17 ARIA Treatment Start Date 2024 ARIA Treatment Site BLADDER ARIA Dose Given To Date (cGy) 3,850 ARIA Session Dosage Given (cGy) 275 ARIA Plan ID BLADDER ARIA Fractions Treated 14 ARIA Prescribed Dose Per Fraction (cGy) 275 ARIA Prescribed Total Dose (cGy) 5,500 ARIA 02/19/2024 9:52 AM CAKE KNOCKER us Not In File Miscellaneous RADIATION ONCOLOGY ORD ERABLES Final Result Performing Organization Address [facility] Co de Phone Number ARIGeetha * RAD ONC ARIA SESSION SUMMARY (02/18/2024 9:43 AM CAKE KNOCKER) Course Name C1_BLADDER_ 2023 ARIA Course Plan Date 01/22/2024 3:44 PM ARIA Elapsed Days 16 ARIA Treatment Start Date 2024 ARIA Treatment Site BLADDER ARIA Dose Given To Date (cGy) 3,575 ARIA Session Dosage Given (cGy) 275 ARIA Plan ID BLADDER ARIA Fractions Treated 13 ARIA Prescribed Dose Per Fraction (cGy) 275 ARIA Prescribed Total Dose (cGy) 5,500 ARIA 02/18/2024 9:43 AM CAKE KNOCKER us Not In File Miscellaneous RADIATION ONCOLOGY ORD ERABLES Final Result ARIA * RAD ONC ARIA SESSION SUMMARY (02/17/2024 9:40 AM CAKE KNOCKER) Course Name C1_BLADDER_ 2023 ARIA Course Plan Date 01/22/2024 3:44 PM ARIA Elapsed Days 15 ARIA Treatment Start Date 2024 ARIA Treatment Site BLADDER ARIA Dose Given To Date (cGy) 3,300 ARIA Session Dosage Given (cGy) 275 ARIA Plan ID BLADDER ARIA Fractions Treated 12 ARIA Prescribed Dose Per Fraction (cGy) 275 ARIA Prescribed Total Dose (cGy) 5,500 ARIA 02/17/2024 9:40 AM CAKE KNOCKER us Not In File Miscellaneous RADIATION ONCOLOGY ORD ERABLES Final Result Performing Organization Address [facility] de Phone Number LADONNA * RAD ONC ARIA SESSION SUMMARY (02/16/2024 11:16 AM CAKE KNOCKER) Course Name C1_BLADDER_ 2023 ARIA Course Plan Date 01/22/2024 3:44 PM ARIA Elapsed Days 14 ARIA Treatment Start Date 2024 ARIA Treatment Site BLADDER ARIA Dose Given To Date (cGy) 3,025 ARIA Session Dosage Given (cGy) 275 ARIA Plan ID BLADDER ARIA Fractions Treated 11 ARIA Prescribed Dose Per Fraction (cGy) 275 ARIA Prescribed Total Dose (cGy) 5,500 ARIA 02/16/2024 11:1 6 AM CAKE KNOCKER us Not In File Miscellaneous RADIATION ONCOLOGY ORD ERABLES Final Result Performing Organization Address [facility] de Phone Number ARIGeetha * eGFR (02/16/2024 7:36 AM CAKE KNOCKER) eGFR 78 >=60 mL/min/1. 73 m2 Comment: [...] was last reviewed 2021. Testing performed by: [address] [address] Blood 02/16/2024 7:36 AM CAKE KNOCKER 02/16/2024 7:42 AM CAKE KNOCKER Venkat Vivar DO LAB BLOOD ORDERABLES Final R esult [facility] [address] [facility] Department [place] [address] * Differential, auto (02/16/2024 7:36 AM CAKE KNOCKER) Neutrophil abs 4.2 1.5 - 6.5 K/cumm Comment:Testing performed by : [address] [address] Imm gran abs 0.0 0.0 - 0.1 K/cumm JAIME Comment:Testing performed by : [address] [address] Lymphocyte abs 0.9 0.8 - 3.3 K/cumm JAIME Comment:Testing performed by : [address] [address] Monocyte abs 0.3 0.2 - 0.8 K/cumm JAIME Comment:Testing performed by : [address] [address] Eosinophil abs 0.2 0.0 - 0.5 K/cumm JAIME Comment:Testing performed by : [address] [address] Basophil abs 0.0 0.0 - 0.1 K/cumm JAIME Comment:Testing performed by : [address] [address] Neutrophil pct 75.3 % [facility] Comment: Interpretive Data Percent cell count reference ranges are not reported, since discordance with absolute values may lead to misinterpretation of CBC data. Current Interpretive Data was last revised on 2017. Testing performed by: [address] [address] Imm gran pct 0.4 % [facility] Comment: Interpretive Data Percent cell count reference ranges are not reported, since discordance with absolute values may lead to misinterpretation of CBC data. Current Interpretive Data was last revised on 2017. Testing performed by: [address] [address] Lymphocyte pct 16.0 % [facility] Comment: Interpretive Data Percent cell count reference ranges are not reported, since discordance with absolute values may lead to misinterpretation of CBC data. Current Interpretive Data was last revised on 2017. Testing performed by: [address] [address] Monocyte pct 5.2 % [facility] Comment: Interpretive Data Percent cell count reference ranges are not reported, since discordance with absolute values may lead to misinterpretation of CBC data. Current Interpretive Data was last revised on 2017. Testing performed by: [address] [address] Eosinophil pct 2.7 % [facility] Comment: Interpretive Data Percent cell count reference ranges are not reported, since discordance with absolute values may lead to misinterpretation of CBC data. Current Interpretive Data was last revised on 2017. Testing performed by: [address] [address] Basophil pct 0.4 % [facility] Comment: Interpretive Data Percent cell count reference ranges are not reported, since discordance with absolute values may lead to misinterpretation of CBC data. Current Interpretive Data was last revised on 2017. Testing performed by: [address] [address] Blood 02/16/2024 7:36 AM CAKE KNOCKER 02/16/2024 7:42 AM CAKE KNOCKER Venkat Vivar DO LAB BLOOD ORDERABLES Final R esult [facility] [address] [facility] Department [place] [address] * (ABNORMAL) CBC with auto differential (02/16/2024 7:36 AM CAKE KNOCKER) WBC 5.6 3.8 - 9.9 K/cumm Comment:Testing performed by : [address] [address] Hgb 11.5(L) 13.0 - 17.5 g/dL JAIME Comment:Testing performed by : [address] [address] Hct 33.3(L) 38.9 - 50.3 % JAIME Comment:Testing performed by : [address] [address] Plt 97(L) 150 - 400 K/cumm JAIME Comment:Testing performed by : [address] [address] MPV 9.1 9.1 - 12.3 fL JAIME Comment:Testing performed by : [address] [address] RBC 3.48(L) 4.30 - 5.80 M/cumm JAIME Comment:Testing performed by : [address] [address] MCV 95.7 81.3 - 96.4 fL JAIME Comment:Testing performed by : [address] [address] MCH 33.0 27.1 - 33.3 pg JAIME Comment:Testing performed by : [address] [address] MCHC 34.5 32.3 - 35.7 g/dL JAIME Comment:Testing performed by : [address] [address] RDW CV 14.3 11.1 - 14.9 % JAIME PINEDA Comment:Testing performed by : [address] [address] RDW SD 47.7 35.7 - 48.1 fL JAIME PINEDA Comment:Testing performed by : [address] [address] NRBC abs 0.00 0.00 - 0.01 K/cumm JAIME PINEDA Comment:Testing performed by : [address] [address] Blood 02/16/2024 7:36 AM CAKE KNOCKER 02/16/2024 7:42 AM CAKE KNOCKER us Venkat Vivar DO LAB BLOOD ORDERABLES Final R esult Performing Organization Address City/State/[facility] Co de Phone Number JAIME [facility] Department [place] [address] * Comprehensive metabolic panel (02/16/2024 7:36 AM CAKE KNOCKER) Sodium 142 135 - 145 mmol/L Comment:Testing performed by : [address] [address] Potassium, pl 4.2 3.3 - 4.9 mmol/L JAIME PINEDA Comment:Testing performed by : [address] [address] Chloride 105 97 - 110 mmol/L JAIME Comment:Testing performed by : [address] [address] CO2 28 22 - 32 mmol/L JAIME Comment:Testing performed by : [address] [address] Anion gap 9 2 - 15 mmol/L JAIME Comment:Testing performed by : [address] [address] BUN 15 6 - 25 mg/dL JAIME PINEDA Comment:Testing performed by : [address] [address] Creatinine 1.00 0.80 - 1.30 mg/dL JAIME Comment:Testing performed by : [address] [address] Glucose 111 70 - 199 mg/dL JAIME [...] was last revised 2022. Testing performed by: [address] [address] Calcium 8.9 8.5 - 10.3 mg/dL JAIME Comment:Testing performed by : [address] [address] Bilirubin, total 0.7 0.1 - 1.2 mg/dL [facility] Comment:Testing performed by : [address] [address] Protein, pl 7.2 6.5 - 8.5 g/dL [facility] Comment:Testing performed by : [address] [address] Albumin 3.9 3.5 - 5.0 g/dL [facility] Comment:Testing performed by : [address] [address] Alk phos 73 40 - 130 Units/L JAIME Comment:Testing performed by : [address] [address] ALT 16 7 - 55 Units/L JAIME Comment:Testing performed by : [address] [address] AST 16 10 - 50 Units/L JAIME Comment:Testing performed by : [address] [address] Blood 02/16/2024 7:36 AM CAKE KNOCKER 02/16/2024 7:42 AM CAKE KNOCKER us Venkat Vivar DO LAB BLOOD ORDERABLES Final R esult [facility] [address] [facility] Department [place] [address] * RAD ONC ARIA SESSION SUMMARY (02/13/2024 8:43 AM CAKE KNOCKER) Pathologist [facility] Course Name C1_BLADDER_ 2023 ARIA Course Plan Date 01/22/2024 3:44 PM ARIA Elapsed Days 11 ARIA Treatment Start Date 2024 ARIA Treatment Site BLADDER ARIA Dose Given To Date (cGy) 2,750 ARIA Session Dosage Given (cGy) 275 ARIA Plan ID BLADDER ARIA Fractions Treated 10 ARIA Prescribed Dose Per Fraction (cGy) 275 ARIA Prescribed Total Dose (cGy) 5,500 ARIA 02/13/2024 8:43 AM CAKE KNOCKER us Not In File Miscellaneous RADIATION ONCOLOGY ORD ERABLES Final Result Performing Organization Address [facility] de Phone Number ARIA * eGFR (02/12/2024 1:17 PM CAKE KNOCKER) Pathologist [facility] eGFR >90 >=60 mL/min/1. 73 m2 Comment: [...] was last reviewed 2021. Testing performed by: [address] [address] Blood 02/12/2024 1:17 PM CAKE KNOCKER 02/12/2024 1:24 PM CAKE KNOCKER Venkat Vivar DO LAB BLOOD ORDERABLES Final R esult [place] [id number] [facility] Department [place] [address] * Differential, auto (02/12/2024 1:17 PM CAKE KNOCKER) Neutrophil abs 3.9 1.5 - 6.5 K/cumm Comment:Testing performed by : [address] [address] Imm gran abs 0.0 0.0 - 0.1 K/cumm JAIME Comment:Testing performed by : [address] [address] Lymphocyte abs 1.1 0.8 - 3.3 K/cumm JAIME Comment:Testing performed by : [address] [address] Monocyte abs 0.3 0.2 - 0.8 K/cumm JAIME Comment:Testing performed by : [address] [address] Eosinophil abs 0.2 0.0 - 0.5 K/cumm JAIME Comment:Testing performed by : [address] [address] Basophil abs 0.0 0.0 - 0.1 K/cumm JAIME Comment:Testing performed by : [address] [address] Neutrophil pct 69.9 % [facility] Comment: Interpretive Data Percent cell count reference ranges are not reported, since discordance with absolute values may lead to misinterpretation of CBC data. Current Interpretive Data was last revised on 2017. Testing performed by: [address] [address] Imm gran pct 0.7 % [facility] Comment: Interpretive Data Percent cell count reference ranges are not reported, since discordance with absolute values may lead to misinterpretation of CBC data. Current Interpretive Data was last revised on 2017. Testing performed by: [address] [address] Lymphocyte pct 20.5 % [facility] Comment: Interpretive Data Percent cell count reference ranges are not reported, since discordance with absolute values may lead to misinterpretation of CBC data. Current Interpretive Data was last revised on 2017. Testing performed by: [address] [address] Monocyte pct 5.8 % [facility] Comment: Interpretive Data Percent cell count reference ranges are not reported, since discordance with absolute values may lead to misinterpretation of CBC data. Current Interpretive Data was last revised on 2017. Testing performed by: [address] [address] Eosinophil pct 2.7 % [facility] Comment: Interpretive Data Percent cell count reference ranges are not reported, since discordance with absolute values may lead to misinterpretation of CBC data. Current Interpretive Data was last revised on 2017. Testing performed by: [address] [address] Basophil pct 0.4 % [facility] Comment: Interpretive Data Percent cell count reference ranges are not reported, since discordance with absolute values may lead to misinterpretation of CBC data. Current Interpretive Data was last revised on 2017. Testing performed by: [address] [address] Blood 02/12/2024 1:17 PM CAKE KNOCKER 02/12/2024 1:24 PM CAKE KNOCKER Venkat Vivar DO LAB BLOOD ORDERABLES Final R esult [facility] [address] [facility] Department [place] [address] * (ABNORMAL) CBC with auto differential (02/12/2024 1:17 PM CAKE KNOCKER) WBC 5.6 3.8 - 9.9 K/cumm Comment:Testing performed by : [address] [address] Hgb 11.8(L) 13.0 - 17.5 g/dL JAIME Comment:Testing performed by : [address] [address] Hct 34.3(L) 38.9 - 50.3 % JAIME Comment:Testing performed by : [address] [address] Plt 122(L) 150 - 400 K/cumm JAIME Comment:Testing performed by : [address] [address] MPV 8.9(L) 9.1 - 12.3 fL JAIME Comment:Testing performed by : [address] [address] RBC 3.60(L) 4.30 - 5.80 M/cumm JAIME Comment:Testing performed by : [address] [address] MCV 95.3 81.3 - 96.4 fL JAIME Comment:Testing performed by : [address] [address] MCH 32.8 27.1 - 33.3 pg JAIEM PINEDA Comment:Testing performed by : [address] [address] MCHC 34.4 32.3 - 35.7 g/dL JAIME Comment:Testing performed by : [address] [address] RDW CV 14.1 11.1 - 14.9 % JAIME PINEDA Comment:Testing performed by : [address] [address] RDW SD 48.1 35.7 - 48.1 fL JAIME PINEDA Comment:Testing performed by : [address] [address] NRBC abs 0.00 0.00 - 0.01 K/cumm JAIME PINEDA Comment:Testing performed by : [address] [address] Blood 02/12/2024 1:17 PM CAKE KNOCKER 02/12/2024 1:24 PM CAKE KNOCKER Venkat Vivar DO LAB BLOOD ORDERABLES Final R esult [facility] PINEDA [address] [facility] Department [place] [address] * Comprehensive metabolic panel (02/12/2024 1:17 PM CAKE KNOCKER) Sodium 138 135 - 145 mmol/L Comment:Testing performed by : [address] [address] Potassium, pl 4.6 3.3 - 4.9 mmol/L JAIME PINEDA Comment:Testing performed by : [address] [address] Chloride 103 97 - 110 mmol/L JAIME PINEDA Comment:Testing performed by : [address] [address] CO2 28 22 - 32 mmol/L JAIME PINEDA Comment:Testing performed by : [address] [address] Anion gap 7 2 - 15 mmol/L JAIME PINEDA Comment:Testing performed by : [address] [address] BUN 17 6 - 25 mg/dL JAIME PINEDA Comment:Testing performed by : [address] [address] Creatinine 0.80 0.80 - 1.30 mg/dL JAIME PINEDA Comment:Testing performed by : [address] [address] Glucose 98 70 - 199 mg/dL JAIME [...] was last revised 2022. Testing performed by: [address] [address] Calcium 8.9 8.5 - 10.3 mg/dL JAIME Comment:Testing performed by : [address] [address] Bilirubin, total 0.5 0.1 - 1.2 mg/dL [facility] Comment:Testing performed by : [address] [address] Protein, pl 7.0 6.5 - 8.5 g/dL [facility] Comment:Testing performed by : [address] [address] Albumin 3.9 3.5 - 5.0 g/dL [facility] Comment:Testing performed by : [address] [address] Alk phos 69 40 - 130 Units/L [facility] Comment:Testing performed by : [address] [address] ALT 14 7 - 55 Units/L [facility] Comment:Testing performed by : [address] [address] AST 14 10 - 50 Units/L JAIME Comment:Testing performed by : [address] [address] Blood 02/12/2024 1:17 PM CAKE KNOCKER 02/12/2024 1:24 PM CAKE KNOCKER us Venkat L. Cb DO LAB BLOOD ORDERABLES Final R esult [facility] [address] [facility] Department [place] [address] * RAD ONC ARIA SESSION SUMMARY (02/12/2024 1:05 PM CAKE KNOCKER) Course Name C1_BLADDER_ 2023 ARIA Course Plan Date 01/22/2024 3:44 PM ARIA Elapsed Days 10 ARIA Treatment Start Date 2024 ARIA Treatment Site BLADDER ARIA Dose Given To Date (cGy) 2,475 ARIA Session Dosage Given (cGy) 275 ARIA Plan ID BLADDER ARIA Fractions Treated 9 ARIA Prescribed Dose Per Fraction (cGy) 275 ARIA Prescribed Total Dose (cGy) 5,500 ARIA 02/12/2024 1:05 PM CAKE KNOCKER us Not In File Miscellaneous RADIATION ONCOLOGY ORD ERABLES Final Result Performing Organization Address City/[facility]/ZIP Co de Phone Number ARIA * RAD ONC ARIA SESSION SUMMARY (02/11/2024 8:47 AM CAKE KNOCKER) Course Name [id number] ARIA Course Plan Date 01/22/2024 3:44 PM ARIA Elapsed Days 9 ARIA Treatment Start Date 2024 ARIA Treatment Site BLADDER ARIA Dose Given To Date (cGy) 2,200 ARIA Session Dosage Given (cGy) 275 ARIA Plan ID BLADDER ARIA Fractions Treated 8 ARIA Prescribed Dose Per Fraction (cGy) 275 ARIA Prescribed Total Dose (cGy) 5,500 ARIA 02/11/2024 8:47 AM CAKE KNOCKER us Not In File Miscellaneous RADIATION ONCOLOGY ORD ERABLES Final Result ARIA * RAD ONC ARIA SESSION SUMMARY (02/10/2024 8:44 AM CAKE KNOCKER) Course Name [id number] ARIA Course Plan Date 01/22/2024 3:44 PM ARIA Elapsed Days 8 ARIA Treatment Start Date 2024 ARIA Treatment Site BLADDER ARIA Dose Given To Date (cGy) 1,925 ARIA Session Dosage Given (cGy) 275 ARIA Plan ID BLADDER ARIA Fractions Treated 7 ARIA Prescribed Dose Per Fraction (cGy) 275 ARIA Prescribed Total Dose (cGy) 5,500 ARIA 02/10/2024 8:44 AM CAKE KNOCKER us Not In File Miscellaneous RADIATION ONCOLOGY ORD ERABLES Final Result ARIA * eGFR (02/09/2024 1:26 PM CAKE KNOCKER) eGFR >90 >=60 mL/min/1. 73 m2 Comment: [...] reviewed 2021. Testing performed by: [facility], [address] [place] [address], [place]., [address] Blood 02/09/2024 1:26 PM CAKE KNOCKER 02/09/2024 1:33 PM CAKE KNOCKER us Venkat Vivar DO LAB BLOOD ORDERABLES Final R esult JAIME PINEDA [address] [facility] Department [place] [address] * Differential, auto (02/09/2024 1:26 PM CAKE KNOCKER) Neutrophil abs 3.2 1.5 - 6.5 K/cumm Comment:Testing performed by : [address] [address] Imm gran abs 0.0 0.0 - 0.1 K/cumm JAIME Comment:Testing performed by : [address] [address] Lymphocyte abs 1.1 0.8 - 3.3 K/cumm JAIME Comment:Testing performed by : [address] [address] Monocyte abs 0.3 0.2 - 0.8 K/cumm JAIME Comment:Testing performed by : [address] [address] Eosinophil abs 0.1 0.0 - 0.5 K/cumm JAIME Comment:Testing performed by : [address] [address] Basophil abs 0.0 0.0 - 0.1 K/cumm JAIME Comment:Testing performed by : [address] [address] Neutrophil pct 65.9 % [facility] Comment: Interpretive Data Percent cell count reference ranges are not reported, since discordance with absolute values may lead to misinterpretation of CBC data. Current Interpretive Data was last revised on 2017. Testing performed by: [address] [address] Imm gran pct 0.6 % [facility] Comment: Interpretive Data Percent cell count reference ranges are not reported, since discordance with absolute values may lead to misinterpretation of CBC data. Current Interpretive Data was last revised on 2017. Testing performed by: [address] [address] Lymphocyte pct 23.4 % [facility] Comment: Interpretive Data Percent cell count reference ranges are not reported, since discordance with absolute values may lead to misinterpretation of CBC data. Current Interpretive Data was last revised on 2017. Testing performed by: [address] [address] Monocyte pct 7.0 % [facility] Comment: Interpretive Data Percent cell count reference ranges are not reported, since discordance with absolute values may lead to misinterpretation of CBC data. Current Interpretive Data was last revised on 2017. Testing performed by: [address] [address] Eosinophil pct 2.7 % [facility] Comment: Interpretive Data Percent cell count reference ranges are not reported, since discordance with absolute values may lead to misinterpretation of CBC data. Current Interpretive Data was last revised on 2017. Testing performed by: [address] [address] Basophil pct 0.4 % [facility] Comment: Interpretive Data Percent cell count reference ranges are not reported, since discordance with absolute values may lead to misinterpretation of CBC data. Current Interpretive Data was last revised on 2017. Testing performed by: [address] [address] Blood 02/09/2024 1:2 6 PM CAKE KNOCKER 02/09/2024 1:33 PM CAKE KNOCKER us Venkat Vivar DO LAB BLOOD ORDERABLES Final R esult [facility] [address] [facility] Department [place] [address] * (ABNORMAL) CBC with auto differential (02/09/2024 1:26 PM CAKE KNOCKER) WBC 4.9 3.8 - 9.9 K/cumm Comment:Testing performed by : [address] [address] Hgb 12.0(L) 13.0 - 17.5 g/dL JAIME Comment:Testing performed by : [address] [address] Hct 34.5(L) 38.9 - 50.3 % JAIME Comment:Testing performed by : [address] [address] Plt 166 150 - 400 K/cumm JAIME Comment:Testing performed by : [address] [address] MPV 8.9(L) 9.1 - 12.3 fL JAIME Comment:Testing performed by : [address] [address] RBC 3.67(L) 4.30 - 5.80 M/cumm JAIME Comment:Testing performed by : [address] [address] MCV 94.0 81.3 - 96.4 fL JAIME Comment:Testing performed by : [address] [address] MCH 32.7 27.1 - 33.3 pg JAIME Comment:Testing performed by : [address] [address] MCHC 34.8 32.3 - 35.7 g/dL JAIME Comment:Testing performed by : [address] [address] RDW CV 13.9 11.1 - 14.9 % JAIME Comment:Testing performed by : [address] [address] RDW SD 47.8 35.7 - 48.1 fL [facility] Comment:Testing performed by : [address] [address] NRBC abs 0.00 0.00 - 0.01 K/cumm JAIME Comment:Testing performed by : [address] [address] Blood 02/09/2024 1:26 PM CAKE KNOCKER 02/09/2024 1:33 PM CAKE KNOCKER us Venkat Vivar DO LAB BLOOD ORDERABLES Final R esult JAIME 2295 [facility] Department [place] [address] * Comprehensive metabolic panel (02/09/2024 1:26 PM CAKE KNOCKER) Sodium 139 135 - 145 mmol/L Comment:Testing performed by : [address] [address] Potassium, pl 3.8 3.3 - 4.9 mmol/L JAIME Comment:Testing performed by : [address] [address] Chloride 103 97 - 110 mmol/L JAIME Comment:Testing performed by : [address] [address] CO2 28 22 - 32 mmol/L JAIME Comment:Testing performed by : [address] [address] Anion gap 8 2 - 15 mmol/L JAIME Comment:Testing performed by : [address] [address] BUN 14 6 - 25 mg/dL JAIME Comment:Testing performed by : [address] [address] Creatinine 0.80 0.80 - 1.30 mg/dL JAIME Comment:Testing performed by : [address] [address] Glucose 102 70 - 199 mg/dL JAIME [...] was last revised 2022. Testing performed by: [address] [address] Calcium 8.9 8.5 - 10.3 mg/dL JAIME Comment:Testing performed by : [address] [address] Bilirubin, total 0.5 0.1 - 1.2 mg/dL JAIME Comment:Testing performed by : [address] [address] Protein, pl 7.2 6.5 - 8.5 g/dL JAIME Comment:Testing performed by : [address] [address] Albumin 4.1 3.5 - 5.0 g/dL JAIME Comment:Testing performed by : [address] [address] Alk phos 70 40 - 130 Units/L JAIME Comment:Testing performed by : [address] [address] ALT 15 7 - 55 Units/L JAIME Comment:Testing performed by : [address] [address] AST 16 10 - 50 Units/L JAIME Comment:Testing performed by : [address] [address] Blood 02/09/2024 1:26 PM CAKE KNOCKER 02/09/2024 1:33 PM CAKE KNOCKER Venkat Vivar DO LAB BLOOD ORDERABLES Final R esult JAIME 2274 [facility] Department of Laboratories [place], [place] [id number] * RAD ONC ARIA SESSION SUMMARY (02/09/2024 1:16 PM CAKE KNOCKER) Course Name C1_BLADDER_ 2023 ARIA Course Plan Date 01/22/2024 3:44 PM ARIA Elapsed Days 7 ARIA Treatment Start Date 2024 ARIA Treatment Site BLADDER ARIA Dose Given To Date (cGy) 1,650 ARIA Session Dosage Given (cGy) 275 ARIA Plan ID BLADDER ARIA Fractions Treated 6 ARIA Prescribed Dose Per Fraction (cGy) 275 ARIA Prescribed Total Dose (cGy) 5,500 ARIA 02/09/2024 1:16 PM CAKE KNOCKER us Not In File Miscellaneous RADIATION ONCOLOGY ORD ERABLES Final Result Performing Organization Address [facility] de Phone Number LADONNA * RAD ONC ARIA SESSION SUMMARY (02/06/2024 9:41 AM CAKE KNOCKER) Course Name C1_BLADDER_ 2023 ARIA Course Plan Date 01/22/2024 3:44 PM ARIA Elapsed Days 4 ARIA Treatment Start Date 2024 ARIA Treatment Site BLADDER ARIA Dose Given To Date (cGy) 1,375 ARIA Session Dosage Given (cGy) 275 ARIA Plan ID BLADDER ARIA Fractions Treated 5 ARIA Prescribed Dose Per Fraction (cGy) 275 ARIA Prescribed Total Dose (cGy) 5,500 ARIA 02/06/2024 9:41 AM CAKE KNOCKER us Not In File Miscellaneous RADIATION ONCOLOGY ORD ERABLES Final Result Performing Organization Address [facility] de Phone Number LADONNA * eGFR (02/05/2024 1:18 PM CAKE KNOCKER) eGFR >90 >=60 mL/min/1. 73 m2 Comment: [...] was last reviewed 2021. Testing performed by: [address] [address] Blood 02/05/2024 1:18 PM CAKE KNOCKER 02/05/2024 1:19 PM CAKE KNOCKER us Venkat Vivar DO LAB BLOOD ORDERABLES Final R esult JAIME 4924 [facility] Department of Laboratories [place], [place] [id number] * Differential, auto (02/05/2024 1:18 PM CAKE KNOCKER) Neutrophil abs 4.0 1.5 - 6.5 K/cumm Comment:Testing performed by : [address] [address] Imm gran abs 0.0 0.0 - 0.1 K/cumm JAIME Comment:Testing performed by : [address] [address] Lymphocyte abs 1.3 0.8 - 3.3 K/cumm JAIME Comment:Testing performed by : [address] [address] Monocyte abs 0.4 0.2 - 0.8 K/cumm JAIME Comment:Testing performed by : [address] [address] Eosinophil abs 0.2 0.0 - 0.5 K/cumm JAIME Comment:Testing performed by : [address] [address] Basophil abs 0.0 0.0 - 0.1 K/cumm JAIME Comment:Testing performed by : [address] [address] Neutrophil pct 67.1 % JAIME Comment: Interpretive Data Percent cell count reference ranges are not reported, since discordance with absolute values may lead to misinterpretation of CBC data. Current Interpretive Data was last revised on 2017. Testing performed by: [address] [address] Imm gran pct 0.3 % JAIME Comment: Interpretive Data Percent cell count reference ranges are not reported, since discordance with absolute values may lead to misinterpretation of CBC data. Current Interpretive Data was last revised on 2017. Testing performed by: [address] [address] Lymphocyte pct 21.0 % [facility] Comment: Interpretive Data Percent cell count reference ranges are not reported, since discordance with absolute values may lead to misinterpretation of CBC data. Current Interpretive Data was last revised on 2017. Testing performed by: [address] [address] Monocyte pct 6.9 % [facility] Comment: Interpretive Data Percent cell count reference ranges are not reported, since discordance with absolute values may lead to misinterpretation of CBC data. Current Interpretive Data was last revised on 2017. Testing performed by: [address] [address] Eosinophil pct 4.0 % [facility] Comment: Interpretive Data Percent cell count reference ranges are not reported, since discordance with absolute values may lead to misinterpretation of CBC data. Current Interpretive Data was last revised on 2017. Testing performed by: [address] [address] Basophil pct 0.7 % [facility] Comment: Interpretive Data Percent cell count reference ranges are not reported, since discordance with absolute values may lead to misinterpretation of CBC data. Current Interpretive Data was last revised on 2017. Testing performed by: [address] [address] Blood 02/05/2024 1:18 PM CAKE KNOCKER 02/05/2024 1:19 PM CAKE KNOCKER us Venkat Vivar DO LAB BLOOD ORDERABLES Final R esult JAIME 8538 [facility] Department [place] [address] * (ABNORMAL) CBC with auto differential (02/05/2024 1:18 PM CAKE KNOCKER) [facility] WBC 6.0 3.8 - 9.9 K/cumm Comment:Testing performed by : [address] [address] Hgb 11.5(L) 13.0 - 17.5 g/dL JAIME Comment:Testing performed by : [address] [address] Hct 33.3(L) 38.9 - 50.3 % JAIME Comment:Testing performed by : [address] [address] Plt 173 150 - 400 K/cumm JAIME Comment:Testing performed by : [address] [address] MPV 8.9(L) 9.1 - 12.3 fL JAIME Comment:Testing performed by : [address] [address] RBC 3.52(L) 4.30 - 5.80 M/cumm JAIME Comment:Testing performed by : [address] [address] MCV 94.6 81.3 - 96.4 fL JAIME Comment:Testing performed by : [address] [address] MCH 32.7 27.1 - 33.3 pg JAIME PINEDA Comment:Testing performed by : [address] [address] MCHC 34.5 32.3 - 35.7 g/dL JAIME Comment:Testing performed by : [address] [address] RDW CV 14.2 11.1 - 14.9 % JAIME Comment:Testing performed by : [address] [address] RDW SD 48.6(H) 35.7 - 48.1 fL JAIME PINEDA Comment:Testing performed by : [address] [address] NRBC abs 0.00 0.00 - 0.01 K/cumm JAIME Comment:Testing performed by : [address] [address] Blood 02/05/2024 1:18 PM CAKE KNOCKER 02/05/2024 1:19 PM CAKE KNOCKER Venkat Vivar DO LAB BLOOD ORDERABLES Final R esult JAIME [facility] Department [place] [address] * Comprehensive metabolic panel (02/05/2024 1:18 PM CAKE KNOCKER) Sodium 140 135 - 145 mmol/L Comment:Testing performed by : [address] [address] Potassium, pl 4.2 3.3 - 4.9 mmol/L JAIME Comment:Testing performed by : [address] [address] Chloride 105 97 - 110 mmol/L JAIME Comment:Testing performed by : [address] [address] CO2 27 22 - 32 mmol/L JAIME Comment:Testing performed by : [address] [address] Anion gap 8 2 - 15 mmol/L JAIME Comment:Testing performed by : [address] [address] BUN 15 6 - 25 mg/dL JAIME PINEDA Comment:Testing performed by : [address] [address] Creatinine 0.80 0.80 - 1.30 mg/dL JAIME Comment:Testing performed by : [address] [address] Glucose 100 70 - 199 mg/dL JAIME [...] was last revised 2022. Testing performed by: [address] [address] Calcium 8.8 8.5 - 10.3 mg/dL JAIME Comment:Testing performed by : [address] [address] Bilirubin, total 0.4 0.1 - 1.2 mg/dL JAIME Comment:Testing performed by : [address] [address] Protein, pl 6.8 6.5 - 8.5 g/dL JAIME Comment:Testing performed by : [address] [address] Albumin 3.9 3.5 - 5.0 g/dL JAIME Comment:Testing performed by : [address] [address] Alk phos 68 40 - 130 Units/L JAIME Comment:Testing performed by : [address] [address] ALT 15 7 - 55 Units/L JAIME Comment:Testing performed by : [address] [address] AST 15 10 - 50 Units/L JAIME Comment:Testing performed by : [address] [address] Blood 02/05/2024 1:18 PM CAKE KNOCKER 02/05/2024 1:19 PM CAKE KNOCKER us Venkat Vivar DO LAB BLOOD ORDERABLES Final R esult JAIME 5199 [facility] Department [place] [address] * RAD ONC ARIA SESSION SUMMARY (02/05/2024 12:55 PM CAKE KNOCKER) Course Name C1_BLADDER_ 2023 ARIA Course Plan Date 01/22/2024 3:44 PM ARIA Elapsed Days 3 ARIA Treatment Start Date 2024 ARIA Treatment Site BLADDER ARIA Dose Given To Date (cGy) 1,100 ARIA Session Dosage Given (cGy) 275 ARIA Plan ID BLADDER ARIA Fractions Treated 4 ARIA Prescribed Dose Per Fraction (cGy) 275 ARIA Prescribed Total Dose (cGy) 5,500 ARIA 02/05/2024 12:5 5 PM CAKE KNOCKER us Not In File Miscellaneous RADIATION ONCOLOGY ORD ERABLES Final Result ARIA * RAD ONC ARIA SESSION SUMMARY (02/04/2024 1:54 PM CAKE KNOCKER) Course Name [id number] ARIA Course Plan Date 01/22/2024 3:44 PM ARIA Elapsed Days 2 ARIA Treatment Start Date 2024 ARIA Treatment Site BLADDER ARIA Dose Given To Date (cGy) 825 ARIA Session Dosage Given (cGy) 275 ARIA Plan ID BLADDER ARIA Fractions Treated 3 ARIA Prescribed Dose Per Fraction (cGy) 275 ARIA Prescribed Total Dose (cGy) 5,500 ARIA 02/04/2024 1:54 PM CAKE KNOCKER us Not In File Miscellaneous RADIATION ONCOLOGY ORD ERABLES Final Result ARIA * RAD ONC ARIA SESSION SUMMARY (02/03/2024 8:21 AM CAKE KNOCKER) Course Name [id number] ARIA Course Plan Date 01/22/2024 3:44 PM ARIA Elapsed Days 1 ARIA Treatment Start Date 2024 ARIA Treatment Site BLADDER ARIA Dose Given To Date (cGy) 550 ARIA Session Dosage Given (cGy) 275 ARIA Plan ID BLADDER ARIA Fractions Treated 2 ARIA Prescribed Dose Per Fraction (cGy) 275 ARIA Prescribed Total Dose (cGy) 5,500 ARIA 02/03/2024 8:21 AM CAKE KNOCKER us Not In File Miscellaneous RADIATION ONCOLOGY ORD ERABLES Final Result ARIGeetha * eGFR (2024 12:47 PM CAKE KNOCKER) eGFR >90 >=60 mL/min/1. 73 m2 Comment: [...] reviewed 2021. Testing performed by: [facility], [address] [place] [address], [place]., [address] Blood 2024 12:4 7 PM CAKE KNOCKER 2024 12:49 PM CAKE KNOCKER Venkat Vivar DO LAB BLOOD ORDERABLES Final R esult JAIME 8880 [facility] Department [place] [address] * Differential, auto (2024 12:47 PM CAKE KNOCKER) Neutrophil abs 4.2 1.5 - 6.5 K/cumm Comment:Testing performed by : [address] [address] Imm gran abs 0.0 0.0 - 0.1 K/cumm JAIME Comment:Testing performed by : [address] [address] Lymphocyte abs 1.5 0.8 - 3.3 K/cumm JAIME Comment:Testing performed by : [address] [address] Monocyte abs 0.8 0.2 - 0.8 K/cumm JAIME Comment:Testing performed by : [address] [address] Eosinophil abs 0.2 0.0 - 0.5 K/cumm JAIME Comment:Testing performed by : [address] [address] Basophil abs 0.0 0.0 - 0.1 K/cumm JAIME Comment:Testing performed by : [address] [address] Neutrophil pct 61.5 % [facility] Comment: Interpretive Data Percent cell count reference ranges are not reported, since discordance with absolute values may lead to misinterpretation of CBC data. Current Interpretive Data was last revised on 2017. Testing performed by: [address] [address] Imm gran pct 0.4 % JAIME Comment: Interpretive Data Percent cell count reference ranges are not reported, since discordance with absolute values may lead to misinterpretation of CBC data. Current Interpretive Data was last revised on 2017. Testing performed by: [address] [address] Lymphocyte pct 22.4 % [facility] Comment: Interpretive Data Percent cell count reference ranges are not reported, since discordance with absolute values may lead to misinterpretation of CBC data. Current Interpretive Data was last revised on 2017. Testing performed by: [address] [address] Monocyte pct 11.9 % [facility] Comment: Interpretive Data Percent cell count reference ranges are not reported, since discordance with absolute values may lead to misinterpretation of CBC data. Current Interpretive Data was last revised on 2017. Testing performed by: [address] [address] Eosinophil pct 3.2 % [facility] Comment: Interpretive Data Percent cell count reference ranges are not reported, since discordance with absolute values may lead to misinterpretation of CBC data. Current Interpretive Data was last revised on 2017. Testing performed by: [address] [address] Basophil pct 0.6 % [facility] Comment: Interpretive Data Percent cell count reference ranges are not reported, since discordance with absolute values may lead to misinterpretation of CBC data. Current Interpretive Data was last revised on 2017. Testing performed by: [address] [address] Blood 2024 12:4 7 PM CAKE KNOCKER 2024 12:49 PM CAKE KNOCKER us Venkat Vivar DO LAB BLOOD ORDERABLES Final R esult JAIME PINEDA 0033 [facility] Department [place] [address] * (ABNORMAL) CBC with auto differential (2024 12:47 PM CAKE KNOCKER) WBC 6.8 3.8 - 9.9 K/cumm Comment:Testing performed by : [address] [address] Hgb 12.6(L) 13.0 - 17.5 g/dL JAIME Comment:Testing performed by : [address] [address] Hct 37.0(L) 38.9 - 50.3 % JAIME Comment:Testing performed by : [address] [address] Plt 185 150 - 400 K/cumm JAIME Comment:Testing performed by : [address] [address] MPV 8.9(L) 9.1 - 12.3 fL JAIME Comment:Testing performed by : [address], [address] RBC 3.89(L) 4.30 - 5.80 M/cumm JAIME Comment:Testing performed by : [address], [address] MCV 95.1 81.3 - 96.4 fL JAIME Comment:Testing performed by : [address] [address] MCH 32.4 27.1 - 33.3 pg JAIME Comment:Testing performed by : [address] [address] MCHC 34.1 32.3 - 35.7 g/dL JAIME Comment:Testing performed by : [address], [address] RDW CV 14.3 11.1 - 14.9 % JAIME Comment:Testing performed by : [address], [address] RDW SD 50.1(H) 35.7 - 48.1 fL JAIME Comment:Testing performed by : [address] [address] NRBC abs 0.00 0.00 - 0.01 K/cumm JAIME Comment:Testing performed by : [address], [address] Blood 2024 12:4 7 PM CAKE KNOCKER 2024 12:49 PM CAKE KNOCKER Venkat Vivar DO LAB BLOOD ORDERABLES Final R esult JAIME PINEDA 67[address] [facility] Department [place] [address] * Comprehensive metabolic panel (2024 12:47 PM CAKE KNOCKER) Pathologist [facility] Sodium 142 135 - 145 mmol/L Comment:Testing performed by : [address] [address] Potassium, pl 4.4 3.3 - 4.9 mmol/L JAIME Comment:Testing performed by : [address] [address] Chloride 107 97 - 110 mmol/L JAIME Comment:Testing performed by : [address] [address] CO2 27 22 - 32 mmol/L JAIME Comment:Testing performed by : [address] [address] Anion gap 8 2 - 15 mmol/L JAIME Comment:Testing performed by : [address] [address] BUN 15 6 - 25 mg/dL JAIME Comment:Testing performed by : [address] [address] Creatinine 0.80 0.80 - 1.30 mg/dL JAIME Comment:Testing performed by : [address] [address] Glucose 108 70 - 199 mg/dL JAIME [...] was last revised 2022. Testing performed by: [address] [address] Calcium 9.0 8.5 - 10.3 mg/dL JAIME Comment:Testing performed by : [address] [address] Bilirubin, total 0.4 0.1 - 1.2 mg/dL JAIME Comment:Testing performed by : [address] [address] Protein, pl 7.2 6.5 - 8.5 g/dL JAIME Comment:Testing performed by : [address] [address] Albumin 4.1 3.5 - 5.0 g/dL JAIME Comment:Testing performed by : [address] [address] Alk phos 71 40 - 130 Units/L JAIME Comment:Testing performed by : [address] [address] ALT 15 7 - 55 Units/L JAIME Comment:Testing performed by : [address] [address] AST 16 10 - 50 Units/L JAIME Comment:Testing performed by : [address] [address] Blood 2024 12:4 7 PM CAKE KNOCKER 2024 12:49 PM CAKE KNOCKER Venkat Vivar DO LAB BLOOD ORDERABLES Final R esult JAIME 9970 [facility] Department [place] [address] * RAD ONC ARIA SESSION SUMMARY (2024 11:28 AM CAKE KNOCKER) Course Name C1_BLADDER_ 2023 ARIA Course Plan Date 01/22/2024 3:44 PM ARIA Elapsed Days 0 ARIA Treatment Start Date 2024 ARIA Treatment Site BLADDER ARIA Dose Given To Date (cGy) 275 ARIA Session Dosage Given (cGy) 275 ARIA Plan ID BLADDER ARIA Fractions Treated 1 ARIA Prescribed Dose Per Fraction (cGy) 275 ARIA Prescribed Total Dose (cGy) 5,500 ARIA 2024 11:2 8 AM CAKE KNOCKER us Not In File Miscellaneous RADIATION ONCOLOGY ORD ERABLES Final Result ARIA from Last 3 Months Insurance MEDICARE AET[employer] SENIOR [facility] MEDICARE [facility] MEDICARE SUPPLEMENT MEDICARE [facility] MEDICARE SUPPLEMENT Care Teams Engineer Rf Deployment Relationship Specialty Start Date End Date Nikky Reyes MD [facility] [address] [place] [address] PCP - General Family Practice 12/15/23 Venkat Vivar DO 14[address] [facility] MEDICAL [facility], [facility] [address] [place] [address] Medical Oncologist/Senior Architect/Design Manager Hematology and Oncology 12/15/23 Kwaku Martin MD [address] [place] [address] Consulting Physician Urology 12/15/23 Richard Hargrove MD [address] [address] Radiation Oncologist Radiation Oncology 01/08/24 Adelso Qu[place] [address] [address] Surgeon Urology 01/22/24
--- OUTSIDE RECORDS SUMMARY | 2024-04-12 17:03 | XMS_ITS | Referral Summary ---
Author Organization [facility] [address] Address [address] [place] [address] Care Team Providers Care Physician Representative Name Role Phone Nikky Reyes MD Primary Care Provider Venkat Vivar DO Unavailable Kwaku Martin MD Unavailable Richard Hargrove MD Unavailable [phone] Adelso Quiñones MD Unavailable [phone] Encounters Date Type Department Care Team Description 03/08/2024 Telephone [facility] Oncology [address] [place] [address] [address] [place] [phone] Laura Arias, ODILON 03/01/2024 Completion of Therapy [facility] Medical Office Building 2 Radiation Oncology [address] [place] [address] Richard Hargrove MD 03/01/2024 Orders Only RAD ONC TREATMENTS Miscellaneous, Not In File 03/01/2024 OTV [facility] Medical Office Building 2 Radiation Oncology [address] [place] [address] Richard Hargrove MD 03/01/2024 Orders Only RAD ONC TREATMENTS Miscellaneous, Not In File 03/01/2024 10:00 AM SURGICAL ASST Lab [facility] at [address] [phone] Malignant neoplasm of urinary bladder, unspecified site (HCC) 03/01/2024 10:45 AM SURGICAL ASST Office Visit [facility] Physicians [facility] [address] [place] [phone] Venkat Vivar DO 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); Malignant neoplasm of urinary bladder, unspecified site (HCC); Anemia due to chemotherapy 03/01/2024 9:30 AM SURGICAL ASST Treatment [facility] Medical Office Building 2 Radiation Oncology [address] [place] [address] Richard Hargrove MD 02/25/2024 Orders Only RAD ONC TREATMENTS Miscellaneous, Not In File 02/25/2024 12:39 AM SURGICAL ASST - 02/25/2024 4:06 AM [facility] Emergency [facility] Emergency Department [facility] [place] [address] Kwaku Roland Jr., MD Abdominal pain (Primary Dx); Constipation, unspecified constipation type; Colitis Discharge Disposition: Discharge to home or self care 02/25/2024 9:30 AM SURGICAL ASST [facility] Medical Office Building 2 Radiation Oncology [address] [place] [address] 02/24/2024 Telephone [facility] Medical Office Building 2 Radiation Oncology [address] [place] [phone] Ibeth Jo RN 02/24/2024 Orders Only RAD ONC TREATMENTS Miscellaneous, Not In File 02/24/2024 9:30 AM SURGICAL ASST [facility] Medical Office Building 2 Radiation Oncology [address] [place] [address] 02/23/2024 OTV [facility] Medical Office Building 2 Radiation Oncology [address] [place] [address] Richard Hargrove MD 02/23/2024 Orders Only RAD ONC TREATMENTS Miscellaneous, Not In File 02/23/2024 11:00 AM SURGICAL ASST [facility] at [address] [place] [phone] Malignant neoplasm of urinary bladder, unspecified site (HCC) (Primary Dx); Encounter for person encountering health services 02/23/2024 10:15 AM SURGICAL ASST Lab [facility] at [address] [address] Encounter for person encountering health services; Malignant neoplasm of urinary bladder, unspecified site (HCC) 02/23/2024 9:30 AM SURGICAL ASST Treatment [facility] Medical Office Building 2 Radiation Oncology [address] [place] [address] 02/22/2024 Orders Only [facility] Physicians [facility] [address] [place] [phone] Venkat Vivar DO 02/22/2024 Orders Only RAD ONC TREATMENTS Miscellaneous, Not In File 02/22/2024 9:30 AM SURGICAL ASST Treatment [facility] Medical Office Building 2 Radiation Oncology [address] [place] [address] 02/20/2024 Documentation [facility][1] Office Building 2 Radiation Oncology [address] [place] [address] Ibeth Jo, ODILON 02/20/2024 Orders Only RAD ONC TREATMENTS Miscellaneous, Not In File 02/20/2024 9:30 AM SURGICAL ASST Treatment [facility][1] Office Building 2 Radiation Oncology [address] [place] [address] 02/19/2024 Orders Only RAD ONC TREATMENTS Miscellaneous, Not In File 02/19/2024 11:45 AM SURGICAL ASST Infusion [facility] [place] at [address] [phone] Malignant neoplasm of urinary bladder, unspecified site (HCC) (Primary Dx); Encounter for person encountering health services 02/19/2024 11:00 AM SURGICAL ASST Lab [facility] at [address] [address] Encounter for person encountering health services; Malignant neoplasm of urinary bladder, unspecified site (HCC) 02/19/2024 9:45 AM SURGICAL ASST Clinical Support [facility] Medical Office Building 2 Radiation Oncology [address] [place] [address] Malignant neoplasm of urinary bladder, unspecified site (HCC) (Primary Dx) 02/19/2024 9:30 AM SURGICAL ASST Treatment [facility] Medical Office Building 2 Radiation Oncology [address] [place] [address] 02/18/2024 Orders Only [facility]icians [facility] [address] [place] [phone] Venkat Vivar DO 02/18/2024 Orders Only RAD ONC TREATMENTS Miscellaneous, Not In File 02/18/2024 9:30 AM SURGICAL ASST Treatment [facility] Medical Office Building 2 Radiation Oncology [address] [place] [address] 02/17/2024 Orders Only RAD ONC TREATMENTS Miscellaneous, Not In File 02/17/2024 9:30 AM SURGICAL ASST Treatment [facility] Medical Office Building 2 Radiation Oncology [address] [place] [address] 02/16/2024 Orders Only RAD ONC TREATMENTS Miscellaneous, Not In File 02/16/2024 7:30 AM SURGICAL ASST Lab [facility] at [address] [address] Encounter for person encountering health services; Malignant neoplasm of urinary bladder, unspecified site (HCC) 02/16/2024 8:30 AM SURGICAL ASST Infusion [facility] at [address] [phone] Malignant neoplasm of urinary bladder, unspecified site (HCC) (Primary Dx); Encounter for person encountering health services 02/16/2024 8:00 AM SURGICAL ASST Office Visit [facility] Oncology [address] [place] [phone] Venkat Vivar DO Malignant neoplasm of urinary bladder, unspecified site (HCC) (Primary Dx); Encounter for person encountering health services 02/16/2024 11:30 AM SURGICAL ASST Treatment [facility] Medical Office Building 2 Radiation Oncology [address] [place] [address] 02/15/2024 Orders Only [facility] Physicians [facility] [address] [place] [address] [address] [place] [phone] Venkat Vivar, DO 02/13/2024 OTV [facility][1] Office Building 2 Radiation Oncology [address] [place] [address] Richard Hargrove MD 02/13/2024 Orders Only RAD ONC TREATMENTS Miscellaneous, Not In File 02/13/2024 8:30 AM SURGICAL ASST [facility] Office [facility] 2 Radiation Oncology [address] [place] [address] 02/12/2024 Orders Only RAD ONC TREATMENTS Miscellaneous, Not In File 02/12/2024 Orders Only [facility] Physicians [facility] [address] [place] [phone] Venkat Vivar, DO 02/12/2024 2:15 PM SURGICAL ASST [facility] at [address] [phone] Malignant neoplasm of urinary bladder, unspecified site (HCC) (Primary Dx); Encounter for person encountering health services 02/12/2024 1:15 PM SURGICAL ASST [facility] at [address] [address] Encounter for person encountering health services; Malignant neoplasm of urinary bladder, unspecified site (HCC) 02/12/2024 12:45 PM SURGICAL ASST [facility] Office [facility] 2 Radiation Oncology [address] [place] [address] 02/11/2024 Orders Only RAD ONC TREATMENTS Miscellaneous, Not In File 02/11/2024 8:30 AM SURGICAL ASST Treatment [facility][1] Office [facility] 2 Radiation Oncology [address] [place] [address] 02/10/2024 Orders Only RAD ONC TREATMENTS Miscellaneous, Not In File 02/10/2024 8:30 AM SURGICAL ASST Treatment [facility] Medical Office Building 2 Radiation Oncology [address] [place] [address] 02/09/2024 Orders Only RAD ONC TREATMENTS Miscellaneous, Not In File 02/09/2024 1:00 PM SURGICAL ASST Treatment [facility] Medical Office Building 2 Radiation Oncology [address] [place] [address] 02/09/2024 2:30 PM SURGICAL ASST Infusion [facility] at [address] [phone] Malignant neoplasm of urinary bladder, unspecified site (HCC) (Primary Dx); Encounter for person encountering health services 02/09/2024 1:15 PM SURGICAL ASST Lab [facility] at [address] [address] Encounter for person encountering health services; Malignant neoplasm of urinary bladder, unspecified site (HCC) 02/08/2024 Orders Only [facility] Oncology [address] [place] [address] [place] [phone] Venkat Vivar DO 02/06/2024 OTV [facility] Medical Office Building 2 Radiation Oncology [address] [place] [address] Richard Hargrove MD 02/06/2024 Orders Only RAD ONC TREATMENTS Miscellaneous, Not In File 02/06/2024 9:30 AM SURGICAL ASST Treatment [facility] Medical Office Building 2 Radiation Oncology [address] [place] [address] 02/05/2024 Orders Only RAD ONC TREATMENTS Miscellaneous, Not In File 02/05/2024 12:45 PM SURGICAL ASST Treatment [facility] Medical Office Building 2 Radiation Oncology [address] [place] [address] 02/05/2024 2:00 PM SURGICAL ASST Infusion [facility] at [address] [place] [address] Malignant neoplasm of urinary bladder, unspecified site (HCC) (Primary Dx); Encounter for person encountering health services 02/05/2024 1:15 PM SURGICAL ASST [facility] at [address] [address] Encounter for person encountering health services; Malignant neoplasm of urinary bladder, unspecified site (HCC) 02/04/2024 Orders Only [facility] Physicians [facility] [address] [place] [phone] Venkat Vivar DO Encounter for person encountering health services (Primary Dx); Malignant neoplasm of urinary bladder, unspecified site (HCC) 02/04/2024 Orders Only RAD ONC TREATMENTS Miscellaneous, Not In File 02/04/2024 1:45 PM SURGICAL ASST Treatment [facility] Medical Office Building 2 Radiation Oncology [address] [place] [address] 02/03/2024 Orders Only RAD ONC TREATMENTS Miscellaneous, Not In File 02/03/2024 8:15 AM SURGICAL ASST Treatment [facility] Medical Office Building 2 Radiation Oncology [address] [place] [address] 2024 Orders Only RAD ONC TREATMENTS Miscellaneous, Not In File 2024 Orders Only [facility] Oncology [address] [place] [phone] Venkat Vivar DO 2024 11:15 AM SURGICAL ASST Treatment [facility] Medical Office Building 2 Radiation Oncology [address] [place] [address] Richard Hargrove MD 2024 11:20 AM SURGICAL ASST Treatment [facility] Medical Office Building 2 Radiation Oncology [address] [place] [address] 90[address] Richard Hargrove MD 2024 1:00 PM SURGICAL ASST Infusion [facility] at [address] [phone] Malignant neoplasm of urinary bladder, unspecified site (HCC) (Primary Dx); Encounter for person encountering health services 2024 12:15 PM SURGICAL ASST Lab [facility] at [address] [address] Encounter for person encountering health services; Malignant neoplasm of urinary bladder, unspecified site (HCC) 01/30/2024 7:55 PM CDT Treatment [facility] Medical Office Building 2 Radiation Oncology [address] [place] [address] 01/23/2024 Orders Only [facility] Physicians [facility] [address] [place] [address] [address] [place] [phone] Venkat Vivar DO Encounter for person encountering health services (Primary Dx); Malignant neoplasm of urinary bladder, unspecified site (HCC) 01/22/2024 1:30 PM CDT Treatment [facility] Medical Office Building 2 Radiation Oncology [address] [place] [address] Richard Hargrove MD 01/22/2024 1:00 PM CDT Consult [facility] Medical Office Building 2 Radiation Oncology [address] [place] [address] Richard Hargrove MD Malignant neoplasm of urinary [...] on file Legal Sex Male 2:03 AM SURGICAL ASST Gender Identity Not on file Sexual Orientation Not on file Occupation Industry Job Start Date Job End Date Retired Not on file Not on file Not on file Last Filed Vital Signs Vital Sign Reading Time Taken Comments Blood Pressure 118/75 03/01/2024 11:02 AM SURGICAL ASST Pulse 60 03/01/2024 11:02 AM SURGICAL ASST Temperature 36.8 ??C (98.2 ??F) 03/01/2024 11:[address] Respiratory Rate 18 03/01/2024 11:02 AM SURGICAL ASST Oxygen Saturation 97% 03/01/2024 11:02 AM SURGICAL ASST Inhaled Oxygen Concentration - - Weight 87.3 kg (192 lb 6.4 oz) 03/01/2024 11:02 AM SURGICAL ASST no shoes Height 185.4 cm (6' 1 ) 02/25/2024 12:13 AM SURGICAL ASST Body Mass Index 25.38 02/25/2024 12:13 AM SURGICAL ASST Plan of Treatment Not on file Procedures Procedure Name Priority Date/Time Associated Diagnosis Comments RAD ONC ARIA COURSE SUMMARY 03/01/2024 4:28 PM SURGICAL ASST EGFR Routine 03/01/2024 10:46 AM SURGICAL ASST Malignant neoplasm of urinary bladder, unspecified site (HCC) DIFFERENTIAL AUTO Routine 03/01/2024 10: 46 AM SURGICAL ASST Malignant neoplasm of urinary bladder, unspecified site (HCC) CBC WITH AUTO DIFFERENTIAL Routine 03/01/2024 10:46 AM SURGICAL ASST Malignant neoplasm of urinary bladder, unspecified site (HCC) COMPREHENSIVE METABOLIC PANEL Routine 03/01/2024 10:46 AM SURGICAL ASST Malignant neoplasm of urinary bladder, unspecified site (HCC) RAD ONC ARIA SESSION SUMMARY 03/01/2024 9:55 AM SURGICAL ASST RAD ONC ARIA SESSION SUMMARY 02/25/2024 9:[address] ABDOMEN PELVIS W CONTRAST ED 02/25/2024 1:24 AM SURGICAL ASST EGFR STAT 02/25/2024 12:21 AM SURGICAL ASST DIFFERENTIAL AUTO STAT 02/25/2024 12: 21 AM SURGICAL ASST LIPASE STAT 02/25/2024 12:21 AM SURGICAL ASST COMPREHENSIVE METABOLIC PANEL STAT 02/25/2024 12:21 AM SURGICAL ASST CBC WITH AUTO DIFFERENTIAL STAT 02/25/2024 12:21 AM SURGICAL ASST RAD ONC ARIA SESSION SUMMARY 02/24/2024 9:44 AM SURGICAL ASST EGFR Routine 02/23/2024 11:02 AM SURGICAL ASST Encounter for person encountering health services Malignant neoplasm of urinary bladder, unspecified site (HCC) DIFFERENTIAL AUTO Routine 02/23/2024 11: 02 AM SURGICAL ASST Encounter for person encountering health services Malignant neoplasm of urinary bladder, unspecified site (HCC) COMPREHENSIVE METABOLIC PANEL Routine 02/23/2024 11:02 AM SURGICAL ASST Encounter for person encountering health services Malignant neoplasm of urinary bladder, unspecified site (HCC) CBC WITH AUTO DIFFERENTIAL Routine 02/23/2024 11:02 AM SURGICAL ASST Encounter for person encountering health services Malignant neoplasm of urinary bladder, unspecified site (HCC) RAD ONC ARIA SESSION SUMMARY 02/23/2024 9:45 AM SURGICAL ASST RAD ONC ARIA SESSION SUMMARY 02/22/2024 9:35 AM SURGICAL ASST RAD ONC ARIA SESSION SUMMARY 02/20/2024 9:41 AM SURGICAL ASST EGFR Routine 02/19/2024 11:23 AM SURGICAL ASST Encounter for person encountering health services Malignant neoplasm of urinary bladder, unspecified site (HCC) DIFFERENTIAL AUTO Routine 02/19/2024 11: 23 AM SURGICAL ASST Encounter for person encountering health services Malignant neoplasm of urinary bladder, unspecified site (HCC) COMPREHENSIVE METABOLIC PANEL Routine 02/19/2024 11:23 AM SURGICAL ASST Encounter for person encountering health services Malignant neoplasm of urinary bladder, unspecified site (HCC) CBC WITH AUTO DIFFERENTIAL Routine 02/19/2024 11:23 AM SURGICAL ASST Encounter for person encountering health services Malignant neoplasm of urinary bladder, unspecified site (HCC) RAD ONC ARIA SESSION SUMMARY 02/19/2024 9:52 AM SURGICAL ASST RAD ONC ARIA SESSION SUMMARY 02/18/2024 9:43 AM SURGICAL ASST RAD ONC ARIA SESSION SUMMARY 02/17/2024 9:40 AM SURGICAL ASST RAD ONC ARIA SESSION SUMMARY 02/16/2024 11:16 AM SURGICAL ASST EGFR Routine 02/16/2024 7:36 AM SURGICAL ASST Encounter for person encountering health services Malignant neoplasm of urinary bladder, unspecified site (HCC) DIFFERENTIAL AUTO Routine 02/16/2024 7:3 6 AM SURGICAL ASST Encounter for person encountering health services Malignant neoplasm of urinary bladder, unspecified site (HCC) COMPREHENSIVE METABOLIC PANEL Routine 02/16/2024 7:36 AM SURGICAL ASST Encounter for person encountering health services Malignant neoplasm of urinary bladder, unspecified site (HCC) CBC WITH AUTO DIFFERENTIAL Routine 02/16/2024 7:36 AM SURGICAL ASST Encounter for person encountering health services Malignant neoplasm of urinary bladder, unspecified site (HCC) RAD ONC ARIA SESSION SUMMARY 02/13/2024 8:43 AM SURGICAL ASST EGFR Routine 02/12/2024 1:17 PM SURGICAL ASST Encounter for person encountering health services Malignant neoplasm of urinary bladder, unspecified site (HCC) DIFFERENTIAL AUTO Routine 02/12/2024 1:1 7 PM SURGICAL ASST Encounter for person encountering health services Malignant neoplasm of urinary bladder, unspecified site (HCC) COMPREHENSIVE METABOLIC PANEL Routine 02/12/2024 1:17 PM SURGICAL ASST Encounter for person encountering health services Malignant neoplasm of urinary bladder, unspecified site (HCC) CBC WITH AUTO DIFFERENTIAL Routine 02/12/2024 1:17 PM SURGICAL ASST Encounter for person encountering health services Malignant neoplasm of urinary bladder, unspecified site (HCC) RAD ONC ARIA SESSION SUMMARY 02/12/2024 1:05 PM SURGICAL ASST RAD ONC ARIA SESSION SUMMARY 02/11/2024 8:47 AM SURGICAL ASST RAD ONC ARIA SESSION SUMMARY 02/10/2024 8:44 AM SURGICAL ASST EGFR Routine 02/09/2024 1:26 PM SURGICAL ASST Encounter for person encountering health services Malignant neoplasm of urinary bladder, unspecified site (HCC) DIFFERENTIAL AUTO Routine 02/09/2024 1:2 6 PM SURGICAL ASST Encounter for person encountering health services Malignant neoplasm of urinary bladder, unspecified site (HCC) COMPREHENSIVE METABOLIC PANEL Routine 02/09/2024 1:26 PM SURGICAL ASST Encounter for person encountering health services Malignant neoplasm of urinary bladder, unspecified site (HCC) CBC WITH AUTO DIFFERENTIAL Routine 02/09/2024 1:26 PM SURGICAL ASST Encounter for person encountering health services Malignant neoplasm of urinary bladder, unspecified site (HCC) RAD ONC ARIA SESSION SUMMARY 02/09/2024 1:16 PM SURGICAL ASST RAD ONC ARIA SESSION SUMMARY 02/06/2024 9:41 AM SURGICAL ASST EGFR Routine 02/05/2024 1:18 PM SURGICAL ASST Encounter for person encountering health services Malignant neoplasm of urinary bladder, unspecified site (HCC) DIFFERENTIAL AUTO Routine 02/05/2024 1:1 8 PM SURGICAL ASST Encounter for person encountering health services Malignant neoplasm of urinary bladder, unspecified site (HCC) COMPREHENSIVE METABOLIC PANEL Routine 02/05/2024 1:18 PM SURGICAL ASST Encounter for person encountering health services Malignant neoplasm of urinary bladder, unspecified site (HCC) CBC WITH AUTO DIFFERENTIAL Routine 02/05/2024 1:18 PM SURGICAL ASST Encounter for person encountering health services Malignant neoplasm of urinary bladder, unspecified site (HCC) RAD ONC ARIA SESSION SUMMARY 02/05/2024 12:55 PM SURGICAL ASST RAD ONC ARIA SESSION SUMMARY 02/04/2024 1:54 PM SURGICAL ASST RAD ONC ARIA SESSION SUMMARY 02/03/2024 8:21 AM SURGICAL ASST EGFR Routine 2024 12:47 PM SURGICAL ASST Encounter for person encountering health services Malignant neoplasm of urinary bladder, unspecified site (HCC) DIFFERENTIAL AUTO Routine 2024 12: 47 PM SURGICAL ASST Encounter for person encountering health services Malignant neoplasm of urinary bladder, unspecified site (HCC) COMPREHENSIVE METABOLIC PANEL Routine 2024 12:47 PM SURGICAL ASST Encounter for person encountering health services Malignant neoplasm of urinary bladder, unspecified site (HCC) CBC WITH AUTO DIFFERENTIAL Routine 2024 12:47 PM SURGICAL ASST Encounter for person encountering health services Malignant neoplasm of urinary bladder, unspecified site (HCC) RAD ONC ARIA SESSION SUMMARY 2024 11:28 AM SURGICAL ASST from Last 3 Months Results * RAD ONC ARIA COURSE SUMMARY (03/01/2024 4:28 PM SURGICAL ASST) Course Name [email or web address]_ 2023 ARIA Course Plan Date 01/22/2024 3:44 PM ARIA Elapsed Days 28 ARIA Treatment Start Date 2024 ARIA Treatment Site BLADDER ARIA Dose Given To Date (cGy) 5,500 ARIA Session Dosage Given (cGy) 0 ARIA Plan ID BLADDER ARIA Fractions Treated 20 ARIA Prescribed Dose Per Fraction (cGy) 275 ARIA Prescribed Total Dose (cGy) 5,500 ARIA 03/01/2024 4:28 PM SURGICAL ASST us Not In File Miscellaneous RADIATION ONCOLOGY ORD ERABLES Final Result ARIGeetha * eGFR (03/01/2024 10:46 AM SURGICAL ASST) eGFR >90 >=60 mL/min/1. 73 m2 Comment: [...] was last reviewed 2021. Testing performed by: [facility], [address] [place] [address], [place]., [address] Blood 03/01/2024 10:4 6 AM SURGICAL ASST 03/01/2024 10:50 AM SURGICAL ASST us Venkat Vivar DO LAB BLOOD ORDERABLES Final R esult JAIME [address] [facility] Department of Laboratories [place], [place] [id number] * (ABNORMAL) Differential, auto (03/01/2024 10:46 AM SURGICAL ASST) Neutrophil abs 5.6 1.5 - 6.5 K/cumm Comment:Testing performed by : [address] [address] Imm gran abs 0.1 0.0 - 0.1 K/cumm JAIME Comment:Testing performed by : [address] [address] Lymphocyte abs 0.6(L) 0.8 - 3.3 K/cumm JAIME Comment:Testing performed by : [address] [address] Monocyte abs 1.2(H) 0.2 - 0.8 K/cumm JAIME Comment:Testing performed by : [address] [address] Eosinophil abs 0.1 0.0 - 0.5 K/cumm JAIME Comment:Testing performed by : [address] [address] Basophil abs 0.0 0.0 - 0.1 K/cumm JAIME Comment:Testing performed by : [address] [address] Neutrophil pct 73.8 % JAIME Comment: Interpretive Data Percent cell count reference ranges are not reported, since discordance with absolute values may lead to misinterpretation of CBC data. Current Interpretive Data was last revised on 2017. Testing performed by: [address] [address] Imm gran pct 1.1 % JAIME Comment: Interpretive Data Percent cell count reference ranges are not reported, since discordance with absolute values may lead to misinterpretation of CBC data. Current Interpretive Data was last revised on 2017. Testing performed by: [address] [address] Lymphocyte pct 7.5 % JAIME Comment: Interpretive Data Percent cell count reference ranges are not reported, since discordance with absolute values may lead to misinterpretation of CBC data. Current Interpretive Data was last revised on 2017. Testing performed by: [address] [address] Monocyte pct 16.1 % JAIME Comment: Interpretive Data Percent cell count reference ranges are not reported, since discordance with absolute values may lead to misinterpretation of CBC data. Current Interpretive Data was last revised on 2017. Testing performed by: [address] [address] Eosinophil pct 1.2 % JAIME Comment: Interpretive Data Percent cell count reference ranges are not reported, since discordance with absolute values may lead to misinterpretation of CBC data. Current Interpretive Data was last revised on 2017. Testing performed by: [address] [address] Basophil pct 0.3 % JAIME Comment: Interpretive Data Percent cell count reference ranges are not reported, since discordance with absolute values may lead to misinterpretation of CBC data. Current Interpretive Data was last revised on 2017. Testing performed by: [address] [address] Blood 03/01/2024 10:4 6 AM SURGICAL ASST 03/01/2024 10:50 AM SURGICAL ASST Venkat Vivar DO LAB BLOOD ORDERABLES Final R esult JAIME [address] [facility] [place] [address] * (ABNORMAL) CBC with auto differential (03/01/2024 10:46 AM SURGICAL ASST) Pathologist [facility] WBC 7.6 3.8 - 9.9 K/cumm Comment:Testing performed by : [address] [address] Hgb 10.8(L) 13.0 - 17.5 g/dL JAIME Comment:Testing performed by : [address] [address] Hct 31.6(L) 38.9 - 50.3 % JAIME Comment:Testing performed by : [address] [address] Plt 267 150 - 400 K/cumm JAIME Comment:Testing performed by : [address] [address] MPV 8.6(L) 9.1 - 12.3 fL JAIME Comment:Testing performed by : [address], [address] RBC 3.23(L) 4.30 - 5.80 M/cumm JAIME Comment:Testing performed by : [address] [address] MCV 97.8(H) 81.3 - 96.4 fL JAIME Comment:Testing performed by : [address] [address] MCH 33.4(H) 27.1 - 33.3 pg JAIME Comment:Testing performed by : [address] [address] MCHC 34.2 32.3 - 35.7 g/dL JAIME Comment:Testing performed by : [address] [address] RDW CV 16.7(H) 11.1 - 14.9 % JAIME Comment:Testing performed by : [address], [address] RDW SD 54.2(H) 35.7 - 48.1 fL JAIME Comment:Testing performed by : [address], [address] NRBC abs 0.00 0.00 - 0.01 K/cumm JAIME Comment:Testing performed by : [address] [address] Blood 03/01/2024 10:4 6 AM SURGICAL ASST 03/01/2024 10:50 AM SURGICAL ASST us Venkat Vivar DO LAB BLOOD ORDERABLES Final R esult JAIME [address] [facility] [place] [address] * Comprehensive metabolic panel (03/01/2024 10:46 AM SURGICAL ASST) Sodium 138 135 - 145 mmol/L Comment:Testing performed by : [address] [address] Potassium, pl 3.8 3.3 - 4.9 mmol/L JAIME Comment:Testing performed by : [address] [address] Chloride 102 97 - 110 mmol/L JAIME Comment:Testing performed by : [address] [address] CO2 26 22 - 32 mmol/L JAIME Comment:Testing performed by : [address] [address] Anion gap 10 2 - 15 mmol/L JAIME Comment:Testing performed by : [address] [address] BUN 17 6 - 25 mg/dL JAIME Comment:Testing performed by : [address] [address] Creatinine 0.80 0.80 - 1.30 mg/dL JAIME Comment:Testing performed by : [address] [address] Glucose 119 70 - 199 mg/dL JAIME [...] last revised 2022. Testing performed by: [address] [place] [address] Calcium 9.1 8.5 - 10.3 mg/dL JAIME Comment:Testing performed by : [address] [address] Bilirubin, total 0.7 0.1 - 1.2 mg/dL JAIME Comment:Testing performed by : [address] [address] Protein, pl 7.3 6.5 - 8.5 g/dL JAIME Comment:Testing performed by : [address] [address] Albumin 3.9 3.5 - 5.0 g/dL JAIME Comment:Testing performed by : [address] [address] Alk phos 76 40 - 130 Units/L JAIME Comment:Testing performed by : [address], [address] ALT 24 7 - 55 Units/L JAIME Comment:Testing performed by : [address] [address] AST 17 10 - 50 Units/L JAIME Comment:Testing performed by : [address] [address] Blood 03/01/2024 10:4 6 AM SURGICAL ASST 03/01/2024 10:50 AM SURGICAL ASST Venkat Vivar DO LAB BLOOD ORDERABLES Final R esult JAIME [address] [facility] [place] [address] * RAD ONC ARIA SESSION SUMMARY (03/01/2024 9:55 AM SURGICAL ASST) Course Name C1_BLADDER_ 2023 ARIA Course Plan Date 01/22/2024 3:44 PM ARIA Elapsed Days 28 ARIA Treatment Start Date 2024 ARIA Treatment Site BLADDER ARIA Dose Given To Date (cGy) 5,500 ARIA Session Dosage Given (cGy) 275 ARIA Plan ID BLADDER ARIA Fractions Treated 20 ARIA Prescribed Dose Per Fraction (cGy) 275 ARIA Prescribed Total Dose (cGy) 5,500 ARIA 03/01/2024 9:55 AM SURGICAL ASST us Not In File Miscellaneous RADIATION ONCOLOGY ORD ERABLES Final Result Performing Organization Address [facility] Co de Phone Number LADONNA * RAD ONC ARIA SESSION SUMMARY (02/25/2024 9:45 AM SURGICAL ASST) Course Name C1_BLADDER_ 2023 ARIA Course Plan Date 01/22/2024 3:44 PM ARIA Elapsed Days 23 ARIA Treatment Start Date 2024 ARIA Treatment Site BLADDER ARIA Dose Given To Date (cGy) 5,225 ARIA Session Dosage Given (cGy) 275 ARIA Plan ID BLADDER ARIA Fractions Treated 19 ARIA Prescribed Dose Per Fraction (cGy) 275 ARIA Prescribed Total Dose (cGy) 5,500 ARIA 02/25/2024 9:45 AM SURGICAL ASST us Not In File Miscellaneous RADIATION ONCOLOGY ORD ERABLES Final Result Performing Organization Address [facility] de Phone Number LADONNA * CT Abdomen Pelvis W Contrast (02/25/2024 1:24 AM SURGICAL ASST) Anatomical Region Laterality Modality Body N/A Computed Tomogra phy 02/25/2024 1:32 AM SURGICAL ASST Narrative 02/25/2024 1:44 AM SURGICAL ASST EXAM DESCRIPTION: ?? CT ABDOMEN PELVIS W [...] AM T: ??02/25/2024 1:44 AM Report ID: [id number] Reading Location: ??[id number] Procedure Note Camilla Aguirre MD - 02/25/2024 [...] by Camilla Aguirre M.D. SN: Report ID: [id number] Reading Location: [place] [address] us Kwaku Roland Jr., MD IM CT PROCEDURES Final Result * eGFR (02/25/2024 12:21 AM SURGICAL ASST) eGFR >90 >=60 mL/min/1. 73 m2 Comment: [...] was last reviewed 2021. Testing performed by: [address] [address] Blood 02/25/2024 12:2 1 AM SURGICAL ASST 02/25/2024 12:31 AM SURGICAL ASST us Kwaku Roland Jr., MD LAB BLOOD ORDERABLES nal Result Performing Organization Address City/State/[facility] Co de Phone Number [facility] [address] [facility] [place] [address] * (ABNORMAL) Differential, auto (02/25/2024 12:21 AM SURGICAL ASST) Neutrophil abs 4.5 1.5 - 6.5 K/cumm Comment:Testing performed by : [address] [address] Imm gran abs 0.0 0.0 - 0.1 K/cumm JAIME PINEDA Comment:Testing performed by : [address] [address] Lymphocyte abs 0.5(L) 0.8 - 3.3 K/cumm CERYUSUF Comment:Testing performed by : [address] [address] Monocyte abs 0.5 0.2 - 0.8 K/cumm CERYUSUF Comment:Testing performed by : [address] [address] Eosinophil abs 0.1 0.0 - 0.5 K/cumm [facility] Comment:Testing performed by : [address], [place]., [address] Basophil abs 0.0 0.0 - 0.1 K/cumm JAIME Comment:Testing performed by : [address] [address] Neutrophil pct 80.8 % [facility] Comment: Interpretive Data Percent cell count reference ranges are not reported, since discordance with absolute values may lead to misinterpretation of CBC data. Current Interpretive Data was last revised on 2017. Testing performed by: [address] [address] Imm gran pct 0.7 % [facility] Comment: Interpretive Data Percent cell count reference ranges are not reported, since discordance with absolute values may lead to misinterpretation of CBC data. Current Interpretive Data was last revised on 2017. Testing performed by: [address] [address] Lymphocyte pct 8.5 % [facility] Comment: Interpretive Data Percent cell count reference ranges are not reported, since discordance with absolute values may lead to misinterpretation of CBC data. Current Interpretive Data was last revised on 2017. Testing performed by: [address] [address] Monocyte pct 8.3 % CERNER Comment: Interpretive Data Percent cell count reference ranges are not reported, since discordance with absolute values may lead to misinterpretation of CBC data. Current Interpretive Data was last revised on 2017. Testing performed by: [address] [address] Eosinophil pct 1.3 % CERYUSUF Comment: Interpretive Data Percent cell count reference ranges are not reported, since discordance with absolute values may lead to misinterpretation of CBC data. Current Interpretive Data was last revised on 2017. Testing performed by: [address] [address] Basophil pct 0.4 % JAIME PINEDA Comment: Interpretive Data Percent cell count reference ranges are not reported, since discordance with absolute values may lead to misinterpretation of CBC data. Current Interpretive Data was last revised on 2017. Testing performed by: [address] [address] Blood 02/25/2024 12:2 1 AM SURGICAL ASST 02/25/2024 12:31 AM SURGICAL ASST us Kwaku Roland Jr., MD LAB BLOOD ORDERABLES Fi nal Result JAIME [facility] [place] [address] * (ABNORMAL) CBC with auto differential (02/25/2024 12:21 AM SURGICAL ASST) WBC 5.5 3.8 - 9.9 K/cumm Comment:Testing performed by : [address] [address] Hgb 10.8(L) 13.0 - 17.5 g/dL JAIME PINEDA Comment:Testing performed by : [address] [address] Hct 30.5(L) 38.9 - 50.3 % JAIME PINEDA Comment:Testing performed by : [address] [address] Plt 164 150 - 400 K/cumm JAIME PINEDA Comment:Testing performed by : [address] [address] MPV 8.8(L) 9.1 - 12.3 fL JAIME PINEAD Comment:Testing performed by : [address] [address] RBC 3.15(L) 4.30 - 5.80 M/cumm JAIME PINEDA Comment:Testing performed by : [facility], [address] [place] [address]., [address] MCV 96.8(H) 81.3 - 96.4 fL JAIME PINEDA Comment:Testing performed by : [address] [address] MCH 34.3(H) 27.1 - 33.3 pg JAIME PINEDA Comment:Testing performed by : [address] [address] MCHC 35.4 32.3 - 35.7 g/dL JAIME Comment:Testing performed by : [address] [address] RDW CV 15.7(H) 11.1 - 14.9 % JAIME Comment:Testing performed by : [address] [address] RDW SD 50.6(H) 35.7 - 48.1 fL JAIME Comment:Testing performed by : [address] [address] NRBC abs 0.00 0.00 - 0.01 K/cumm JAIME Comment:Testing performed by : [address] [address] Blood (Blood, Venous) 02/25/2024 12:21 AM SURGICAL ASST 02/25/2024 12:31 AM SURGICAL ASST Kwaku Roland Jr., MD LAB BLOOD ORDERABLES Fi nal Result JAIME [address] [facility] Department of Laboratories [place], [place] [id number] * Lipase (02/25/2024 12:21 AM SURGICAL ASST) Lipase 27 10 - 99 Units/L Comment:Testing performed by : [address] [address] Blood (Blood, Venous) 02/25/2024 12:21 AM SURGICAL ASST 02/25/2024 12:31 AM SURGICAL ASST us Kwaku Roland Jr., MD LAB BLOOD ORDERABLES Fi nal Result JAIME [address] [facility] [place] [address] * (ABNORMAL) Comprehensive metabolic panel (02/25/2024 12:21 AM SURGICAL ASST) Sodium 138 135 - 145 mmol/L Comment:Testing performed by : [address] [address] Potassium, pl 3.6 3.3 - 4.9 mmol/L JAIME Comment:Testing performed by : [address] [address] Chloride 103 97 - 110 mmol/L JAIME Comment:Testing performed by : [address] [address] CO2 23 22 - 32 mmol/L JAIME Comment:Testing performed by : [address] [address] Anion gap 12 2 - 15 mmol/L JAIME Comment:Testing performed by : [address] [address] BUN 12 6 - 25 mg/dL JAIME Comment:Testing performed by : [address] [address] Creatinine 0.70(L) 0.80 - 1.30 mg/dL JAIME Comment:Testing performed by : [address] [address] Glucose 130 70 - 199 mg/dL JAIME [...] was last revised 2022. Testing performed by: [facility], [address] [place] [address], [address] Calcium 9.2 8.5 - 10.3 mg/dL JAIME Comment:Testing performed by : [address] [address] Bilirubin, total 0.6 0.1 - 1.2 mg/dL JAIME Comment:Testing performed by : [address], [address] Protein, pl 7.3 6.5 - 8.5 g/dL JAIME Comment:Testing performed by : [address] [address] Albumin 3.8 3.5 - 5.0 g/dL JAIME Comment:Testing performed by : [address], [address] Alk phos 77 40 - 130 Units/L JAIME Comment:Testing performed by : [address], [address] ALT 21 7 - 55 Units/L JAIME Comment:Testing performed by : [address] [address] AST 17 10 - 50 Units/L JAIME Comment:Testing performed by : [address] [address] Blood 02/25/2024 12:2 1 AM SURGICAL ASST 02/25/2024 12:31 AM SURGICAL ASST us Kwaku Roland Jr., MD LAB BLOOD ORDERABLES nal Result JAIME [address] [facility] [place] [address] * RAD ONC ARIA SESSION SUMMARY (02/24/2024 9:44 AM SURGICAL ASST) Course Name C1_BLADDER_ 2023 ARIA Course Plan Date 01/22/2024 3:44 PM ARIA Elapsed Days 22 ARIA Treatment Start Date 2024 ARIA Treatment Site BLADDER ARIA Dose Given To Date (cGy) 4,950 ARIA Session Dosage Given (cGy) 275 ARIA Plan ID BLADDER ARIA Fractions Treated 18 ARIA Prescribed Dose Per Fraction (cGy) 275 ARIA Prescribed Total Dose (cGy) 5,500 ARIA 02/24/2024 9:44 AM SURGICAL ASST us Not In File Miscellaneous RADIATION ONCOLOGY ORD ERABLES Final Result ARIGeetha * eGFR (02/23/2024 11:02 AM SURGICAL ASST) eGFR 89 >=60 mL/min/1. 73 m2 Comment: [...] was last reviewed 2021. Testing performed by: [facility], [address] [place] [address], [place]., [address] Blood 02/23/2024 11:0 2 AM SURGICAL ASST 02/23/2024 11:04 AM SURGICAL ASST us Venkat Vivar DO LAB BLOOD ORDERABLES Final R esult JAIME [address] [facility] Department of Laboratories [place], [place] [id number] * (ABNORMAL) Differential, auto (02/23/2024 11:02 AM SURGICAL ASST) Neutrophil abs 3.9 1.5 - 6.5 K/cumm Comment:Testing performed by : [address] [address] Imm gran abs 0.0 0.0 - 0.1 K/cumm JAIME Comment:Testing performed by : [address] [address] Lymphocyte abs 0.5(L) 0.8 - 3.3 K/cumm JAIME Comment:Testing performed by : [address] [address] Monocyte abs 0.4 0.2 - 0.8 K/cumm JAIME Comment:Testing performed by : [address] [address] Eosinophil abs 0.1 0.0 - 0.5 K/cumm JAIME Comment:Testing performed by : [address] [address] Basophil abs 0.0 0.0 - 0.1 K/cumm JAIME Comment:Testing performed by : [address] [address] Neutrophil pct 78.5 % JAIME Comment: Interpretive Data Percent cell count reference ranges are not reported, since discordance with absolute values may lead to misinterpretation of CBC data. Current Interpretive Data was last revised on 2017. Testing performed by: [address] [address] Imm gran pct 0.6 % JAIME Comment: Interpretive Data Percent cell count reference ranges are not reported, since discordance with absolute values may lead to misinterpretation of CBC data. Current Interpretive Data was last revised on 2017. Testing performed by: [address] [address] Lymphocyte pct 10.4 % JAIME Comment: Interpretive Data Percent cell count reference ranges are not reported, since discordance with absolute values may lead to misinterpretation of CBC data. Current Interpretive Data was last revised on 2017. Testing performed by: [address] [address] Monocyte pct 7.5 % JAIME Comment: Interpretive Data Percent cell count reference ranges are not reported, since discordance with absolute values may lead to misinterpretation of CBC data. Current Interpretive Data was last revised on 2017. Testing performed by: [address] [address] Eosinophil pct 2.6 % JAIME Comment: Interpretive Data Percent cell count reference ranges are not reported, since discordance with absolute values may lead to misinterpretation of CBC data. Current Interpretive Data was last revised on 2017. Testing performed by: [address] [address] Basophil pct 0.4 % JAIME Comment: Interpretive Data Percent cell count reference ranges are not reported, since discordance with absolute values may lead to misinterpretation of CBC data. Current Interpretive Data was last revised on 2017. Testing performed by: [address] [address] Blood 02/23/2024 11:0 2 AM SURGICAL ASST 02/23/2024 11:04 AM SURGICAL ASST Venkat Vivar DO LAB BLOOD ORDERABLES Final R esult JAIME [address] [facility] [place] [address] * (ABNORMAL) CBC with auto differential (02/23/2024 11:02 AM SURGICAL ASST) WBC 4.9 3.8 - 9.9 K/cumm Comment:Testing performed by : [address] [address] Hgb 10.6(L) 13.0 - 17.5 g/dL JAIME Comment:Testing performed by : [address] [address] Hct 30.6(L) 38.9 - 50.3 % JAIME Comment:Testing performed by : [address] [address] Plt 146(L) 150 - 400 K/cumm JAIME Comment:Testing performed by : [address] [address] MPV 8.6(L) 9.1 - 12.3 fL JAIME Comment:Testing performed by : [address], [address] RBC 3.18(L) 4.30 - 5.80 M/cumm JAIME Comment:Testing performed by : [address], [address] MCV 96.2 81.3 - 96.4 fL JAIME Comment:Testing performed by : [address] [address] MCH 33.3 27.1 - 33.3 pg JAIME Comment:Testing performed by : [address] [address] MCHC 34.6 32.3 - 35.7 g/dL JAIME Comment:Testing performed by : [address] [address] RDW CV 15.0(H) 11.1 - 14.9 % JAIME Comment:Testing performed by : [address], [address] RDW SD 49.3(H) 35.7 - 48.1 fL JAIME Comment:Testing performed by : [address] [address] NRBC abs 0.00 0.00 - 0.01 K/cumm JAIME Comment:Testing performed by : [address] [address] Blood 02/23/2024 11:0 2 AM SURGICAL ASST 02/23/2024 11:04 AM SURGICAL ASST Venkat Vivar DO LAB BLOOD ORDERABLES Final R esult JAIME [address] [facility] [place] [address] * Comprehensive metabolic panel (02/23/2024 11:02 AM SURGICAL ASST) Sodium 141 135 - 145 mmol/L Comment:Testing performed by : [address] [address] Potassium, pl 4.1 3.3 - 4.9 mmol/L JAIME Comment:Testing performed by : [address] [address] Chloride 104 97 - 110 mmol/L JAIME Comment:Testing performed by : [address] [address] CO2 27 22 - 32 mmol/L JAIME Comment:Testing performed by : [address] [address] Anion gap 10 2 - 15 mmol/L JAIME Comment:Testing performed by : [address] [address] BUN 17 6 - 25 mg/dL JAIME Comment:Testing performed by : [address] [address] Creatinine 0.90 0.80 - 1.30 mg/dL JAIME Comment:Testing performed by : [address] [address] Glucose 115 70 - 199 mg/dL JAIME [...] was last revised 2022. Testing performed by: [address] [address] Calcium 9.0 8.5 - 10.3 mg/dL JAIME Comment:Testing performed by : [address] [address] Bilirubin, total 0.5 0.1 - 1.2 mg/dL JAIME Comment:Testing performed by : [address] [address] Protein, pl 7.1 6.5 - 8.5 g/dL JAIME Comment:Testing performed by : [address], [place]., [address] Albumin 3.8 3.5 - 5.0 g/dL JAIME Comment:Testing performed by : [address] [address] Alk phos 75 40 - 130 Units/L JAIME Comment:Testing performed by : [address] [address] ALT 19 7 - 55 Units/L JAIME Comment:Testing performed by : [address] [address] AST 17 10 - 50 Units/L JAIME Comment:Testing performed by : [address] [address] Blood 02/23/2024 11:0 2 AM SURGICAL ASST 02/23/2024 11:04 AM SURGICAL ASST Venkat Vivar DO LAB BLOOD ORDERABLES Final R esult JAIME [address] [facility] [place] [address] * RAD ONC ARIA SESSION SUMMARY (02/23/2024 9:45 AM SURGICAL ASST) Course Name C1_BLADDER_ 2023 ARIA Course Plan Date 01/22/2024 3:44 PM ARIA Elapsed Days 21 ARIA Treatment Start Date 2024 ARIA Treatment Site BLADDER ARIA Dose Given To Date (cGy) 4,675 ARIA Session Dosage Given (cGy) 275 ARIA Plan ID BLADDER ARIA Fractions Treated 17 ARIA Prescribed Dose Per Fraction (cGy) 275 ARIA Prescribed Total Dose (cGy) 5,500 ARIA 02/23/2024 9:45 AM SURGICAL ASST us Not In File Miscellaneous RADIATION ONCOLOGY ORD ERABLES Final Result ARIA * RAD ONC ARIA SESSION SUMMARY (02/22/2024 9:35 AM SURGICAL ASST) Course Name C1_BLADDER_ 2023 ARIA Course Plan Date 01/22/2024 3:44 PM ARIA Elapsed Days 20 ARIA Treatment Start Date 2024 ARIA Treatment Site BLADDER ARIA Dose Given To Date (cGy) 4,400 ARIA Session Dosage Given (cGy) 275 ARIA Plan ID BLADDER ARIA Fractions Treated 16 ARIA Prescribed Dose Per Fraction (cGy) 275 ARIA Prescribed Total Dose (cGy) 5,500 ARIA 02/22/2024 9:35 AM SURGICAL ASST us Not In File Miscellaneous RADIATION ONCOLOGY ORD ERABLES Final Result Performing Organization Address [facility] Co de Phone Number ARIA * RAD ONC ARIA SESSION SUMMARY (02/20/2024 9:41 AM SURGICAL ASST) Course Name C1_BLADDER_ 2023 ARIA Course Plan Date 01/22/2024 3:44 PM ARIA Elapsed Days 18 ARIA Treatment Start Date 2024 ARIA Treatment Site BLADDER ARIA Dose Given To Date (cGy) 4,125 ARIA Session Dosage Given (cGy) 275 ARIA Plan ID BLADDER ARIA Fractions Treated 15 ARIA Prescribed Dose Per Fraction (cGy) 275 ARIA Prescribed Total Dose (cGy) 5,500 ARIA 02/20/2024 9:41 AM SURGICAL ASST us Not In File Miscellaneous RADIATION ONCOLOGY ORD ERABLES Final Result ARIA * eGFR (02/19/2024 11:23 AM SURGICAL ASST) eGFR 89 >=60 mL/min/1. 73 m2 Comment: [...] was last reviewed 2021. Testing performed by: [facility], [address] [place] [address]., [address] Blood 02/19/2024 11:2 3 AM SURGICAL ASST 02/19/2024 11:26 AM SURGICAL ASST us Venkat Vivar DO LAB BLOOD ORDERABLES Final R esult JAIME [address] [facility] [place] [address] * (ABNORMAL) Differential, auto (02/19/2024 11:23 AM SURGICAL ASST) Neutrophil abs 3.9 1.5 - 6.5 K/cumm Comment:Testing performed by : [address] [address] Imm gran abs 0.0 0.0 - 0.1 K/cumm [facility] Comment:Testing performed by : [address] [address] Lymphocyte abs 0.6(L) 0.8 - 3.3 K/cumm [facility] Comment:Testing performed by : [address] [address] Monocyte abs 0.3 0.2 - 0.8 K/cumm [facility] Comment:Testing performed by : [address], [place]., [address] Eosinophil abs 0.2 0.0 - 0.5 K/cumm [facility] Comment:Testing performed by : [address] [address] Basophil abs 0.0 0.0 - 0.1 K/cumm [facility] Comment:Testing performed by : [address] [address] Neutrophil pct 78.4 % [facility] Comment: Interpretive Data Percent cell count reference ranges are not reported, since discordance with absolute values may lead to misinterpretation of CBC data. Current Interpretive Data was last revised on 2017. Testing performed by: [address] [address] Imm gran pct 0.4 % [facility] Comment: Interpretive Data Percent cell count reference ranges are not reported, since discordance with absolute values may lead to misinterpretation of CBC data. Current Interpretive Data was last revised on 2017. Testing performed by: [address] [address] Lymphocyte pct 11.4 % CERNER Comment: Interpretive Data Percent cell count reference ranges are not reported, since discordance with absolute values may lead to misinterpretation of CBC data. Current Interpretive Data was last revised on 2017. Testing performed by: [address] [address] Monocyte pct 6.2 % CERNER Comment: Interpretive Data Percent cell count reference ranges are not reported, since discordance with absolute values may lead to misinterpretation of CBC data. Current Interpretive Data was last revised on 2017. Testing performed by: [address] [address] Eosinophil pct 3.2 % JAIME Comment: Interpretive Data Percent cell count reference ranges are not reported, since discordance with absolute values may lead to misinterpretation of CBC data. Current Interpretive Data was last revised on 2017. Testing performed by: [address] [address] Basophil pct 0.4 % JAIME Comment: Interpretive Data Percent cell count reference ranges are not reported, since discordance with absolute values may lead to misinterpretation of CBC data. Current Interpretive Data was last revised on 2017. Testing performed by: [address] [address] Blood 02/19/2024 11:2 3 AM SURGICAL ASST 02/19/2024 11:26 AM SURGICAL ASST Venkat Vivar DO LAB BLOOD ORDERABLES Final R esult JAIME [facility] Department of Laboratories [place], [place] [id number] * (ABNORMAL) CBC with auto differential (02/19/2024 11:23 AM SURGICAL ASST) Pathologist [facility] WBC 5.0 3.8 - 9.9 K/cumm Comment:Testing performed by : [address] [address] Hgb 10.8(L) 13.0 - 17.5 g/dL JAIME PINEDA Comment:Testing performed by : [address] [address] Hct 31.2(L) 38.9 - 50.3 % JAIME PINEDA Comment:Testing performed by : [address] [address] Plt 88(L) 150 - 400 K/cumm JAIME PINEDA Comment:Testing performed by : [address] [address] MPV 9.0(L) 9.1 - 12.3 fL JAIME PINEDA Comment:Testing performed by : [address] [address] RBC 3.25(L) 4.30 - 5.80 M/cumm JAIME PINEDA Comment:Testing performed by : [address] [address] MCV 96.0 81.3 - 96.4 fL JAIME Comment:Testing performed by : [address] [address] MCH 33.2 27.1 - 33.3 pg JAIME Comment:Testing performed by : [address] [address] MCHC 34.6 32.3 - 35.7 g/dL JAIME Comment:Testing performed by : [address] [address] RDW CV 14.6 11.1 - 14.9 % JAIME Comment:Testing performed by : [address], [address] RDW SD 49.1(H) 35.7 - 48.1 fL JAIME Comment:Testing performed by : [address] [address] NRBC abs 0.00 0.00 - 0.01 K/cumm JAIME Comment:Testing performed by : [address] [address] Blood 02/19/2024 11:2 3 AM SURGICAL ASST 02/19/2024 11:26 AM SURGICAL ASST us Venkat Vivar DO LAB BLOOD ORDERABLES Final R esult JAIME [address] [facility] [place] [address] * Comprehensive metabolic panel (02/19/2024 11:23 AM SURGICAL ASST) Pathologist [facility] Sodium 141 135 - 145 mmol/L Comment:Testing performed by : [address] [address] Potassium, pl 3.9 3.3 - 4.9 mmol/L JAIME Comment:Testing performed by : [address], [place]., [address] Chloride 103 97 - 110 mmol/L JAIME Comment:Testing performed by : [address], [place]., [address] CO2 28 22 - 32 mmol/L JAIME Comment:Testing performed by : [address], [place]., [address] Anion gap 10 2 - 15 mmol/L JAIME Comment:Testing performed by : [address], [place]., [address] BUN 12 6 - 25 mg/dL JAIME Comment:Testing performed by : [address], [place]., [address] Creatinine 0.90 0.80 - 1.30 mg/dL JAIME Comment:Testing performed by : [address], [place]., [address] Glucose 148 70 - 199 mg/dL JAIME [...] was last revised 2022. Testing performed by: [address] [address] Calcium 8.8 8.5 - 10.3 mg/dL JAIME Comment:Testing performed by : [address] [address] Bilirubin, total 0.6 0.1 - 1.2 mg/dL JAIME Comment:Testing performed by : [address], [place]., [address] Protein, pl 6.9 6.5 - 8.5 g/dL JAIME Comment:Testing performed by : [address], [facility] [place] [address] Albumin 3.9 3.5 - 5.0 g/dL JAIME Comment:Testing performed by : [address] [address] Alk phos 74 40 - 130 Units/L JAIME Comment:Testing performed by : [address] [address] ALT 15 7 - 55 Units/L JAIME Comment:Testing performed by : [address] [address] AST 15 10 - 50 Units/L JAIME Comment:Testing performed by : [address], [address] Blood 02/19/2024 11:2 3 AM SURGICAL ASST 02/19/2024 11:26 AM SURGICAL ASST us Venkat iVvar DO LAB BLOOD ORDERABLES Final R esult JAIME [facility] Department of Laboratories [place], [place] [id number] * RAD ONC ARIA SESSION SUMMARY (02/19/2024 9:52 AM SURGICAL ASST) Course Name [email or web address] ARIA Course Plan Date 01/22/2024 3:44 PM ARIA Elapsed Days 17 ARIA Treatment Start Date 2024 ARIA Treatment Site BLADDER ARIA Dose Given To Date (cGy) 3,850 ARIA Session Dosage Given (cGy) 275 ARIA Plan ID BLADDER ARIA Fractions Treated 14 ARIA Prescribed Dose Per Fraction (cGy) 275 ARIA Prescribed Total Dose (cGy) 5,500 ARIA 02/19/2024 9:52 AM SURGICAL ASST us Not In File Miscellaneous RADIATION ONCOLOGY ORD ERABLES Final Result ARIA * RAD ONC ARIA SESSION SUMMARY (02/18/2024 9:43 AM SURGICAL ASST) Course Name C1_BLADDER_ 2023 ARIA Course Plan Date 01/22/2024 3:44 PM ARIA Elapsed Days 16 ARIA Treatment Start Date 2024 ARIA Treatment Site BLADDER ARIA Dose Given To Date (cGy) 3,575 ARIA Session Dosage Given (cGy) 275 ARIA Plan ID BLADDER ARIA Fractions Treated 13 ARIA Prescribed Dose Per Fraction (cGy) 275 ARIA Prescribed Total Dose (cGy) 5,500 ARIA 02/18/2024 9:43 AM SURGICAL ASST us Not In File Miscellaneous RADIATION ONCOLOGY ORD ERABLES Final Result ARIA * RAD ONC ARIA SESSION SUMMARY (02/17/2024 9:40 AM SURGICAL ASST) Course Name C1_BLADDER_ 2023 ARIA Course Plan Date 01/22/2024 3:44 PM ARIA Elapsed Days 15 ARIA Treatment Start Date 2024 ARIA Treatment Site BLADDER ARIA Dose Given To Date (cGy) 3,300 ARIA Session Dosage Given (cGy) 275 ARIA Plan ID BLADDER ARIA Fractions Treated 12 ARIA Prescribed Dose Per Fraction (cGy) 275 ARIA Prescribed Total Dose (cGy) 5,500 ARIA 02/17/2024 9:40 AM SURGICAL ASST us Not In File Miscellaneous RADIATION ONCOLOGY ORD ERABLES Final Result ARIA * RAD ONC ARIA SESSION SUMMARY (02/16/2024 11:16 AM SURGICAL ASST) Course Name C1_BLADDER_ 2023 ARIA Course Plan Date 01/22/2024 3:44 PM ARIA Elapsed Days 14 ARIA Treatment Start Date 2024 ARIA Treatment Site BLADDER ARIA Dose Given To Date (cGy) 3,025 ARIA Session Dosage Given (cGy) 275 ARIA Plan ID BLADDER ARIA Fractions Treated 11 ARIA Prescribed Dose Per Fraction (cGy) 275 ARIA Prescribed Total Dose (cGy) 5,500 ARIA 02/16/2024 11:1 6 AM SURGICAL ASST us Not In File Miscellaneous RADIATION ONCOLOGY ORD ERABLES Final Result [place] * eGFR (02/16/2024 7:36 AM SURGICAL ASST) eGFR 78 >=60 mL/min/1. 73 m2 Comment: [...] was last reviewed 2021. Testing performed by: [facility], [address] [place] [address], [place]., [address] Blood 02/16/2024 7:36 AM SURGICAL ASST 02/16/2024 7:42 AM SURGICAL ASST us Venkat Vivar DO LAB BLOOD ORDERABLES Final R esult JAIME [address] [facility] [place] [address] * Differential, auto (02/16/2024 7:36 AM SURGICAL ASST) Neutrophil abs 4.2 1.5 - 6.5 K/cumm Comment:Testing performed by : [address] [address] Imm gran abs 0.0 0.0 - 0.1 K/cumm [facility] Comment:Testing performed by : [address] [address] Lymphocyte abs 0.9 0.8 - 3.3 K/cumm [facility] Comment:Testing performed by : [address] [address] Monocyte abs 0.3 0.2 - 0.8 K/cumm [facility] Comment:Testing performed by : [address] [address] Eosinophil abs 0.2 0.0 - 0.5 K/cumm [facility] Comment:Testing performed by : [address] [address] Basophil abs 0.0 0.0 - 0.1 K/cumm [facility] Comment:Testing performed by : [address] [address] Neutrophil pct 75.3 % [facility] Comment: Interpretive Data Percent cell count reference ranges are not reported, since discordance with absolute values may lead to misinterpretation of CBC data. Current Interpretive Data was last revised on 2017. Testing performed by: [address] [address] Imm gran pct 0.4 % [facility] Comment: Interpretive Data Percent cell count reference ranges are not reported, since discordance with absolute values may lead to misinterpretation of CBC data. Current Interpretive Data was last revised on 2017. Testing performed by: [address] [address] Lymphocyte pct 16.0 % CERNER Comment: Interpretive Data Percent cell count reference ranges are not reported, since discordance with absolute values may lead to misinterpretation of CBC data. Current Interpretive Data was last revised on 2017. Testing performed by: [address] [address] Monocyte pct 5.2 % JAIME PINEDA Comment: Interpretive Data Percent cell count reference ranges are not reported, since discordance with absolute values may lead to misinterpretation of CBC data. Current Interpretive Data was last revised on 2017. Testing performed by: [address] [address] Eosinophil pct 2.7 % JAIME PINEDA Comment: Interpretive Data Percent cell count reference ranges are not reported, since discordance with absolute values may lead to misinterpretation of CBC data. Current Interpretive Data was last revised on 2017. Testing performed by: [address] [address] Basophil pct 0.4 % JAIME PINEDA Comment: Interpretive Data Percent cell count reference ranges are not reported, since discordance with absolute values may lead to misinterpretation of CBC data. Current Interpretive Data was last revised on 2017. Testing performed by: [address] [address] Blood 02/16/2024 7:36 AM SURGICAL ASST 02/16/2024 7:42 AM SURGICAL ASST Venkat Vivar DO LAB BLOOD ORDERABLES Final R esult JAIME [facility] [place] [address] * (ABNORMAL) CBC with auto differential (02/16/2024 7:36 AM SURGICAL ASST) WBC 5.6 3.8 - 9.9 K/cumm Comment:Testing performed by : [address] [address] Hgb 11.5(L) 13.0 - 17.5 g/dL JAIME PINEDA Comment:Testing performed by : [address] [address] Hct 33.3(L) 38.9 - 50.3 % JAIME PINEDA Comment:Testing performed by : [address] [address] Plt 97(L) 150 - 400 K/cumm JAIME Comment:Testing performed by : [address] [address] MPV 9.1 9.1 - 12.3 fL JAIME Comment:Testing performed by : [address] [address] RBC 3.48(L) 4.30 - 5.80 M/cumm JAIME Comment:Testing performed by : [address] [address] MCV 95.7 81.3 - 96.4 fL JAIME Comment:Testing performed by : [address] [address] MCH 33.0 27.1 - 33.3 pg JAIME Comment:Testing performed by : [address] [address] MCHC 34.5 32.3 - 35.7 g/dL JAIME Comment:Testing performed by : [address], [address] RDW CV 14.3 11.1 - 14.9 % JAIME Comment:Testing performed by : [address], [address] RDW SD 47.7 35.7 - 48.1 fL JAIME Comment:Testing performed by : [address] [address] NRBC abs 0.00 0.00 - 0.01 K/cumm JAIME Comment:Testing performed by : [address] [address] Blood 02/16/2024 7:36 AM SURGICAL ASST 02/16/2024 7:42 AM SURGICAL ASST Venkat Vivar DO LAB BLOOD ORDERABLES Final R esult GAGANYUSUF [address] [facility] Department of Laboratories [place], [place] [id number] * Comprehensive metabolic panel (02/16/2024 7:36 AM SURGICAL ASST) Sodium 142 135 - 145 mmol/L Comment:Testing performed by : [facility], [address] [place] [address], [place]., [address] Potassium, pl 4.2 3.3 - 4.9 mmol/L JAIME Comment:Testing performed by : [address], [place]., [address] Chloride 105 97 - 110 mmol/L JAIME Comment:Testing performed by : [address], [place]., [address] CO2 28 22 - 32 mmol/L JAIME Comment:Testing performed by : [address], [place]., [address] Anion gap 9 2 - 15 mmol/L JAIME Comment:Testing performed by : [address], [place]., [address] BUN 15 6 - 25 mg/dL JAIME Comment:Testing performed by : [address], [place]., [address] Creatinine 1.00 0.80 - 1.30 mg/dL JAIME Comment:Testing performed by : [address], [place]., [address] Glucose 111 70 - 199 mg/dL JAIME [...] was last revised 2022. Testing performed by: [address], [place]., [address] Calcium 8.9 8.5 - 10.3 mg/dL JAIME Comment:Testing performed by : [address], [place]., [address] Bilirubin, total 0.7 0.1 - 1.2 mg/dL AJIME Comment:Testing performed by : [address] [address] Protein, pl 7.2 6.5 - 8.5 g/dL JAIME Comment:Testing performed by : [address] [address] Albumin 3.9 3.5 - 5.0 g/dL JAIME Comment:Testing performed by : [address] [address] Alk phos 73 40 - 130 Units/L JAIME Comment:Testing performed by : [address] [address] ALT 16 7 - 55 Units/L JAIME Comment:Testing performed by : [address] [address] AST 16 10 - 50 Units/L JAIME Comment:Testing performed by : [address] [address] Blood 02/16/2024 7:36 AM SURGICAL ASST 02/16/2024 7:42 AM SURGICAL ASST us Venkat Vivar DO LAB BLOOD ORDERABLES Final R esult Performing Organization Address City/State/[facility] Co de Phone Number JAIME [address] [facility] [place] [address] * RAD ONC ARIA SESSION SUMMARY (02/13/2024 8:43 AM SURGICAL ASST) Course Name C1_BLADDER_ 2023 ARIA Course Plan Date 01/22/2024 3:44 PM ARIA Elapsed Days 11 ARIA Treatment Start Date 2024 ARIA Treatment Site BLADDER ARIA Dose Given To Date (cGy) 2,750 ARIA Session Dosage Given (cGy) 275 ARIA Plan ID BLADDER ARIA Fractions Treated 10 ARIA Prescribed Dose Per Fraction (cGy) 275 ARIA Prescribed Total Dose (cGy) 5,500 ARIA 02/13/2024 8:43 AM SURGICAL ASST us Not In File Miscellaneous RADIATION ONCOLOGY ORD ERABLES Final Result ARIA * eGFR (02/12/2024 1:17 PM SURGICAL ASST) Pathologist [facility] eGFR >90 >=60 mL/min/1. 73 m2 Comment: [...] was last reviewed 2021. Testing performed by: [facility], [address] [place] [address]., [address] Blood 02/12/2024 1:17 PM SURGICAL ASST 02/12/2024 1:24 PM SURGICAL ASST us Venkat Vivar DO LAB BLOOD ORDERABLES Final R esult JAIME [address] [facility] [place] [address] * Differential, auto (02/12/2024 1:17 PM SURGICAL ASST) Pathologist [facility] Neutrophil abs 3.9 1.5 - 6.5 K/cumm Comment:Testing performed by : [facility], [address] [place] [address], [place]., [address] Imm gran abs 0.0 0.0 - 0.1 K/cumm [facility] Comment:Testing performed by : [facility], [address] [place] [address], [place]., [address] Lymphocyte abs 1.1 0.8 - 3.3 K/cumm CERNER Comment:Testing performed by : [address], [place]., [address] Monocyte abs 0.3 0.2 - 0.8 K/cumm [facility] Comment:Testing performed by : [address], [place]., [address] Eosinophil abs 0.2 0.0 - 0.5 K/cumm [facility] Comment:Testing performed by : [address] [address] Basophil abs 0.0 0.0 - 0.1 K/cumm [facility] Comment:Testing performed by : [address] [address] Neutrophil pct 69.9 % [facility] Comment: Interpretive Data Percent cell count reference ranges are not reported, since discordance with absolute values may lead to misinterpretation of CBC data. Current Interpretive Data was last revised on 2017. Testing performed by: [address] [address] Imm gran pct 0.7 % [facility] Comment: Interpretive Data Percent cell count reference ranges are not reported, since discordance with absolute values may lead to misinterpretation of CBC data. Current Interpretive Data was last revised on 2017. Testing performed by: [address] [address] Lymphocyte pct 20.5 % CERNER Comment: Interpretive Data Percent cell count reference ranges are not reported, since discordance with absolute values may lead to misinterpretation of CBC data. Current Interpretive Data was last revised on 2017. Testing performed by: [address] [address] Monocyte pct 5.8 % CERNER Comment: Interpretive Data Percent cell count reference ranges are not reported, since discordance with absolute values may lead to misinterpretation of CBC data. Current Interpretive Data was last revised on 2017. Testing performed by: [address] [address] Eosinophil pct 2.7 % JAIME Comment: Interpretive Data Percent cell count reference ranges are not reported, since discordance with absolute values may lead to misinterpretation of CBC data. Current Interpretive Data was last revised on 2017. Testing performed by: [address] [address] Basophil pct 0.4 % JAIME Comment: Interpretive Data Percent cell count reference ranges are not reported, since discordance with absolute values may lead to misinterpretation of CBC data. Current Interpretive Data was last revised on 2017. Testing performed by: [address] [address] Blood 02/12/2024 1:17 PM SURGICAL ASST 02/12/2024 1:24 PM SURGICAL ASST us Venkat Vivar DO LAB BLOOD ORDERABLES Final R esult [facility] [address] [facility] [place] [address] * (ABNORMAL) CBC with auto differential (02/12/2024 1:17 PM SURGICAL ASST) WBC 5.6 3.8 - 9.9 K/cumm Comment:Testing performed by : [address] [address] Hgb 11.8(L) 13.0 - 17.5 g/dL JAIME Comment:Testing performed by : [address] [address] Hct 34.3(L) 38.9 - 50.3 % JAIME Comment:Testing performed by : [address] [address] Plt 122(L) 150 - 400 K/cumm JAIME Comment:Testing performed by : [address] [address] MPV 8.9(L) 9.1 - 12.3 fL JAIME Comment:Testing performed by : [address] [address] RBC 3.60(L) 4.30 - 5.80 M/cumm JAIME PINEDA Comment:Testing performed by : [address] [address] MCV 95.3 81.3 - 96.4 fL JAIEM Comment:Testing performed by : [address] [address] MCH 32.8 27.1 - 33.3 pg JAIME Comment:Testing performed by : [address] [address] MCHC 34.4 32.3 - 35.7 g/dL JAIME Comment:Testing performed by : [address] [address] RDW CV 14.1 11.1 - 14.9 % JAIME Comment:Testing performed by : [address] [address] RDW SD 48.1 35.7 - 48.1 fL JAIME Comment:Testing performed by : [address] [address] NRBC abs 0.00 0.00 - 0.01 K/cumm JAIME Comment:Testing performed by : [address] [address] Blood 02/12/2024 1:17 PM SURGICAL ASST 02/12/2024 1:24 PM SURGICAL ASST us Venkat Vivar DO LAB BLOOD ORDERABLES Final R esult JAIME [address] [facility] [place] [address] * Comprehensive metabolic panel (02/12/2024 1:17 PM SURGICAL ASST) [facility] Signature Sodium 138 135 - 145 mmol/L Comment:Testing performed by : [address] [address] Potassium, pl 4.6 3.3 - 4.9 mmol/L [facility] Comment:Testing performed by : [address], [place]., [address] Chloride 103 97 - 110 mmol/L JAIME Comment:Testing performed by : [address], [place]., [address] CO2 28 22 - 32 mmol/L JAIME Comment:Testing performed by : [address], [place]., [address] Anion gap 7 2 - 15 mmol/L [facility] Comment:Testing performed by : [address], [place]., [address] BUN 17 6 - 25 mg/dL [facility] Comment:Testing performed by : [address], [place]., [address] Creatinine 0.80 0.80 - 1.30 mg/dL [facility] Comment:Testing performed by : [address] [address] Glucose 98 70 - 199 mg/dL [facility] Comment: Interpretive Data Fasting glucose >/= 126 [...] was last revised 2022. Testing performed by: [address] [address] Calcium 8.9 8.5 - 10.3 mg/dL JAIME Comment:Testing performed by : [address] [address] Bilirubin, total 0.5 0.1 - 1.2 mg/dL JAIME Comment:Testing performed by : [address], [place]., [address] Protein, pl 7.0 6.5 - 8.5 g/dL JAIME Comment:Testing performed by : [facility], [address] [place] [address]., [address] Albumin 3.9 3.5 - 5.0 g/dL JAIME Comment:Testing performed by : [address], [address] Alk phos 69 40 - 130 Units/L JAIME Comment:Testing performed by : [address] [address] ALT 14 7 - 55 Units/L JAIME Comment:Testing performed by : [address] [address] AST 14 10 - 50 Units/L JAIME Comment:Testing performed by : [address], [address] Blood 02/12/2024 1:17 PM SURGICAL ASST 02/12/2024 1:24 PM SURGICAL ASST us Venkat Vivar DO LAB BLOOD ORDERABLES Final R esult [facility] [address] [facility] [place] [address] * RAD ONC ARIA SESSION SUMMARY (02/12/2024 1:05 PM SURGICAL ASST) Course Name C1_BLADDER_ 2023 ARIA Course Plan Date 01/22/2024 3:44 PM ARIA Elapsed Days 10 ARIA Treatment Start Date 2024 ARIA Treatment Site BLADDER ARIA Dose Given To Date (cGy) 2,475 ARIA Session Dosage Given (cGy) 275 ARIA Plan ID BLADDER ARIA Fractions Treated 9 ARIA Prescribed Dose Per Fraction (cGy) 275 ARIA Prescribed Total Dose (cGy) 5,500 ARIA 02/12/2024 1:05 PM SURGICAL ASST us Not In File Miscellaneous RADIATION ONCOLOGY ORD ERABLES Final Result ARIA * RAD ONC ARIA SESSION SUMMARY (02/11/2024 8:47 AM SURGICAL ASST) Course Name C1_BLADDER_ 2023 ARIA Course Plan Date 01/22/2024 3:44 PM ARIA Elapsed Days 9 ARIA Treatment Start Date 2024 ARIA Treatment Site BLADDER ARIA Dose Given To Date (cGy) 2,200 ARIA Session Dosage Given (cGy) 275 ARIA Plan ID BLADDER ARIA Fractions Treated 8 ARIA Prescribed Dose Per Fraction (cGy) 275 ARIA Prescribed Total Dose (cGy) 5,500 ARIA 02/11/2024 8:47 AM SURGICAL ASST us Not In File Miscellaneous RADIATION ONCOLOGY ORD ERABLES Final Result Performing Organization Address [facility] de Phone Number LADONNA * RAD ONC ARIA SESSION SUMMARY (02/10/2024 8:44 AM SURGICAL ASST) Course Name C1_BLADDER_ 2023 ARIA Course Plan Date 01/22/2024 3:44 PM ARIA Elapsed Days 8 ARIA Treatment Start Date 2024 ARIA Treatment Site BLADDER ARIA Dose Given To Date (cGy) 1,925 ARIA Session Dosage Given (cGy) 275 ARIA Plan ID BLADDER ARIA Fractions Treated 7 ARIA Prescribed Dose Per Fraction (cGy) 275 ARIA Prescribed Total Dose (cGy) 5,500 ARIA 02/10/2024 8:44 AM SURGICAL ASST us Not In File Miscellaneous RADIATION ONCOLOGY ORD ERABLES Final Result Performing Organization Address [facility] de Phone Number ARIA * eGFR (02/09/2024 1:26 PM SURGICAL ASST) eGFR >90 >=60 mL/min/1. 73 m2 Comment: [...] was last reviewed 2021. Testing performed by: [address] [address] Blood 02/09/2024 1:26 PM SURGICAL ASST 02/09/2024 1:33 PM SURGICAL ASST us Venkat Vivar DO LAB BLOOD ORDERABLES Final R esult JAIME PINEDA [address] [facility] [place] [address] * Differential, auto (02/09/2024 1:26 PM SURGICAL ASST) Neutrophil abs 3.2 1.5 - 6.5 K/cumm Comment:Testing performed by : [address] [address] Imm gran abs 0.0 0.0 - 0.1 K/cumm JAIME Comment:Testing performed by : [address] [address] Lymphocyte abs 1.1 0.8 - 3.3 K/cumm JAIME Comment:Testing performed by : [address] [address] Monocyte abs 0.3 0.2 - 0.8 K/cumm JAIME Comment:Testing performed by : [address] [address] Eosinophil abs 0.1 0.0 - 0.5 K/cumm JAIME Comment:Testing performed by : [address] [address] Basophil abs 0.0 0.0 - 0.1 K/cumm JAIME Comment:Testing performed by : [address] [address] Neutrophil pct 65.9 % [facility] Comment: Interpretive Data Percent cell count reference ranges are not reported, since discordance with absolute values may lead to misinterpretation of CBC data. Current Interpretive Data was last revised on 2017. Testing performed by: [address] [address] Imm gran pct 0.6 % [facility] Comment: Interpretive Data Percent cell count reference ranges are not reported, since discordance with absolute values may lead to misinterpretation of CBC data. Current Interpretive Data was last revised on 2017. Testing performed by: [address] [address] Lymphocyte pct 23.4 % [facility] Comment: Interpretive Data Percent cell count reference ranges are not reported, since discordance with absolute values may lead to misinterpretation of CBC data. Current Interpretive Data was last revised on 2017. Testing performed by: [address] [address] Monocyte pct 7.0 % [facility] Comment: Interpretive Data Percent cell count reference ranges are not reported, since discordance with absolute values may lead to misinterpretation of CBC data. Current Interpretive Data was last revised on 2017. Testing performed by: [address] [address] Eosinophil pct 2.7 % JAIME Comment: Interpretive Data Percent cell count reference ranges are not reported, since discordance with absolute values may lead to misinterpretation of CBC data. Current Interpretive Data was last revised on 2017. Testing performed by: [address] [address] Basophil pct 0.4 % JAIME Comment: Interpretive Data Percent cell count reference ranges are not reported, since discordance with absolute values may lead to misinterpretation of CBC data. Current Interpretive Data was last revised on 2017. Testing performed by: [address] [address] Blood 02/09/2024 1:26 PM SURGICAL ASST 02/09/2024 1:33 PM SURGICAL ASST Venkat Vivar DO LAB BLOOD ORDERABLES Final R esult [facility] [facility] [address] [facility] [place] [address] * (ABNORMAL) CBC with auto differential (02/09/2024 1:26 PM SURGICAL ASST) WBC 4.9 3.8 - 9.9 K/cumm Comment:Testing performed by : [address] [address] Hgb 12.0(L) 13.0 - 17.5 g/dL JAIME Comment:Testing performed by : [address] [address] Hct 34.5(L) 38.9 - 50.3 % JAIME Comment:Testing performed by : [address] [address] Plt 166 150 - 400 K/cumm JAIME Comment:Testing performed by : [address] [address] MPV 8.9(L) 9.1 - 12.3 fL JAIME Comment:Testing performed by : [address] [address] RBC 3.67(L) 4.30 - 5.80 M/cumm JAIME Comment:Testing performed by : [address] [address] MCV 94.0 81.3 - 96.4 fL JAMIE Comment:Testing performed by : [address] [address] MCH 32.7 27.1 - 33.3 pg JAIME PINEDA Comment:Testing performed by : [facility] [address] [place] [address]., [address] MCHC 34.8 32.3 - 35.7 g/dL JAIME PINEDA Comment:Testing performed by : [address] [address] RDW CV 13.9 11.1 - 14.9 % JAIME PINEDA Comment:Testing performed by : [address] [address] RDW SD 47.8 35.7 - 48.1 fL JAIEM PINEDA Comment:Testing performed by : [address], [place]., [address] NRBC abs 0.00 0.00 - 0.01 K/cumm JAIME PINEDA Comment:Testing performed by : [address] [address] Blood 02/09/2024 1:26 PM SURGICAL ASST 02/09/2024 1:33 PM SURGICAL ASST Venkat Vivar DO LAB BLOOD ORDERABLES Final R esult JAIME PINEDA [facility] [place] [address] * Comprehensive metabolic panel (02/09/2024 1:26 PM SURGICAL ASST) Sodium 139 135 - 145 mmol/L Comment:Testing performed by : [address] [address] Potassium, pl 3.8 3.3 - 4.9 mmol/L JAIME PINEDA Comment:Testing performed by : [address] [address] Chloride 103 97 - 110 mmol/L JAIME PINEDA Comment:Testing performed by : [address] [address] CO2 28 22 - 32 mmol/L JAIME PINEDA Comment:Testing performed by : [address] [address] Anion gap 8 2 - 15 mmol/L JAIME PINEDA Comment:Testing performed by : [address] [address] BUN 14 6 - 25 mg/dL JAIME Comment:Testing performed by : [address] [address] Creatinine 0.80 0.80 - 1.30 mg/dL JAIME Comment:Testing performed by : [address] [address] Glucose 102 70 - 199 mg/dL JAIME [...] was last revised 2022. Testing performed by: [address] [address] Calcium 8.9 8.5 - 10.3 mg/dL JAIME Comment:Testing performed by : [address] [address] Bilirubin, total 0.5 0.1 - 1.2 mg/dL JAIME Comment:Testing performed by : [address] [address] Protein, pl 7.2 6.5 - 8.5 g/dL JAIME Comment:Testing performed by : [address] [address] Albumin 4.1 3.5 - 5.0 g/dL [facility] Comment:Testing performed by : [address] [address] Alk phos 70 40 - 130 Units/L JAIME Comment:Testing performed by : [address] [address] ALT 15 7 - 55 Units/L JAIME Comment:Testing performed by : [address] [address] AST 16 10 - 50 Units/L JAIME PINEDA Comment:Testing performed by : [facility], [address] [place] [address], [place]., [address] Blood 02/09/2024 1:26 PM SURGICAL ASST 02/09/2024 1:33 PM SURGICAL ASST us Venkat Vivar DO LAB BLOOD ORDERABLES Final R esult JAIME [address] [facility] [place] [address] * RAD ONC ARIA SESSION SUMMARY (02/09/2024 1:16 PM SURGICAL ASST) Course Name C1_BLADDER_ 2023 ARIA Course Plan Date 01/22/2024 3:44 PM ARIA Elapsed Days 7 ARIA Treatment Start Date 2024 ARIA Treatment Site BLADDER ARIA Dose Given To Date (cGy) 1,650 ARIA Session Dosage Given (cGy) 275 ARIA Plan ID BLADDER ARIA Fractions Treated 6 ARIA Prescribed Dose Per Fraction (cGy) 275 ARIA Prescribed Total Dose (cGy) 5,500 ARIA 02/09/2024 1:16 PM SURGICAL ASST us Not In File Miscellaneous RADIATION ONCOLOGY ORD ERABLES Final Result Performing Organization Address City/[facility]/ZIP Co de Phone Number ARIA * RAD ONC ARIA SESSION SUMMARY (02/06/2024 9:41 AM SURGICAL ASST) Course Name C1_BLADDER_ 2023 ARIA Course Plan Date 01/22/2024 3:44 PM ARIA Elapsed Days 4 ARIA Treatment Start Date 2024 ARIA Treatment Site BLADDER ARIA Dose Given To Date (cGy) 1,375 ARIA Session Dosage Given (cGy) 275 ARIA Plan ID BLADDER ARIA Fractions Treated 5 ARIA Prescribed Dose Per Fraction (cGy) 275 ARIA Prescribed Total Dose (cGy) 5,500 ARIA 02/06/2024 9:41 AM SURGICAL ASST us Not In File Miscellaneous RADIATION ONCOLOGY ORD ERABLES Final Result ARIA * eGFR (02/05/2024 1:18 PM SURGICAL ASST) [facility] eGFR >90 >=60 mL/min/1. 73 m2 Comment: [...] was last reviewed 2021. Testing performed by: [facility], [address] [place] [address]., [address] Blood 02/05/2024 1:18 PM SURGICAL ASST 02/05/2024 1:19 PM SURGICAL ASST us Venkat Vivar DO LAB BLOOD ORDERABLES Final R esult JAIME [address] [facility] [place] [address] * Differential, auto (02/05/2024 1:18 PM SURGICAL ASST) [facility] Neutrophil abs 4.0 1.5 - 6.5 K/cumm Comment:Testing performed by : [address], [place]., [address] Imm gran abs 0.0 0.0 - 0.1 K/cumm [facility] Comment:Testing performed by : [address], [place]., [address] Lymphocyte abs 1.3 0.8 - 3.3 K/cumm [facility] Comment:Testing performed by : [address], [place]., [address] Monocyte abs 0.4 0.2 - 0.8 K/cumm [facility] Comment:Testing performed by : [address] [address] Eosinophil abs 0.2 0.0 - 0.5 K/cumm [facility] Comment:Testing performed by : [address] [address] Basophil abs 0.0 0.0 - 0.1 K/cumm [facility] Comment:Testing performed by : [address] [address] Neutrophil pct 67.1 % [facility] Comment: Interpretive Data Percent cell count reference ranges are not reported, since discordance with absolute values may lead to misinterpretation of CBC data. Current Interpretive Data was last revised on 2017. Testing performed by: [address] [address] Imm gran pct 0.3 % [facility] Comment: Interpretive Data Percent cell count reference ranges are not reported, since discordance with absolute values may lead to misinterpretation of CBC data. Current Interpretive Data was last revised on 2017. Testing performed by: [address] [address] Lymphocyte pct 21.0 % [facility] Comment: Interpretive Data Percent cell count reference ranges are not reported, since discordance with absolute values may lead to misinterpretation of CBC data. Current Interpretive Data was last revised on 2017. Testing performed by: [address] [address] Monocyte pct 6.9 % [facility] Comment: Interpretive Data Percent cell count reference ranges are not reported, since discordance with absolute values may lead to misinterpretation of CBC data. Current Interpretive Data was last revised on 2017. Testing performed by: [address] [address] Eosinophil pct 4.0 % JAIME PINEDA Comment: Interpretive Data Percent cell count reference ranges are not reported, since discordance with absolute values may lead to misinterpretation of CBC data. Current Interpretive Data was last revised on 2017. Testing performed by: [address] [address] Basophil pct 0.7 % JAIME PINEDA Comment: Interpretive Data Percent cell count reference ranges are not reported, since discordance with absolute values may lead to misinterpretation of CBC data. Current Interpretive Data was last revised on 2017. Testing performed by: [address] [address] Blood 02/05/2024 1:18 PM SURGICAL ASST 02/05/2024 1:19 PM SURGICAL ASST us Venkat Vivar DO LAB BLOOD ORDERABLES Final R esult JAIME [address] [facility] [place] [address] * (ABNORMAL) CBC with auto differential (02/05/2024 1:18 PM SURGICAL ASST) WBC 6.0 3.8 - 9.9 K/cumm Comment:Testing performed by : [address] [address] Hgb 11.5(L) 13.0 - 17.5 g/dL JAIME PINEDA Comment:Testing performed by : [address] [address] Hct 33.3(L) 38.9 - 50.3 % JAIME PINEDA Comment:Testing performed by : [address] [address] Plt 173 150 - 400 K/cumm JAIME PINEDA Comment:Testing performed by : [address] [address] MPV 8.9(L) 9.1 - 12.3 fL JAIME Comment:Testing performed by : [address] [address] RBC 3.52(L) 4.30 - 5.80 M/cumm JAIME PINEDA Comment:Testing performed by : [address] [address] MCV 94.6 81.3 - 96.4 fL JAIME Comment:Testing performed by : [address] [address] MCH 32.7 27.1 - 33.3 pg JAIME Comment:Testing performed by : [address] [address] MCHC 34.5 32.3 - 35.7 g/dL JAIME Comment:Testing performed by : [address], [address] RDW CV 14.2 11.1 - 14.9 % JAIME Comment:Testing performed by : [address] [address] RDW SD 48.6(H) 35.7 - 48.1 fL JAIME Comment:Testing performed by : [address] [address] NRBC abs 0.00 0.00 - 0.01 K/cumm JAIME Comment:Testing performed by : [address] [address] Blood 02/05/2024 1:18 PM SURGICAL ASST 02/05/2024 1:19 PM SURGICAL ASST us Venkat Vivar DO LAB BLOOD ORDERABLES Final R esult JAIME [address] [facility] [place] [address] * Comprehensive metabolic panel (02/05/2024 1:18 PM SURGICAL ASST) [facility] Signature Sodium 140 135 - 145 mmol/L Comment:Testing performed by : [address], [place]., [address] Potassium, pl 4.2 3.3 - 4.9 mmol/L [facility] Comment:Testing performed by : [address], [place]., [address] Chloride 105 97 - 110 mmol/L [facility] Comment:Testing performed by : [address], [place]., [address] CO2 27 22 - 32 mmol/L [facility] Comment:Testing performed by : [address], [place]., [address] Anion gap 8 2 - 15 mmol/L [facility] Comment:Testing performed by : [address], [place]., [address] BUN 15 6 - 25 mg/dL [facility] Comment:Testing performed by : [address], [place]., [address] Creatinine 0.80 0.80 - 1.30 mg/dL [facility] Comment:Testing performed by : [address], [place]., [address] Glucose 100 70 - 199 mg/dL [facility] Comment: Interpretive Data Fasting glucose >/= 126 [...] was last revised 2022. Testing performed by: [address] [address] Calcium 8.8 8.5 - 10.3 mg/dL JAIME Comment:Testing performed by : [address], [place]., [address] Bilirubin, total 0.4 0.1 - 1.2 mg/dL [facility] Comment:Testing performed by : [address], [place]., [address] Protein, pl 6.8 6.5 - 8.5 g/dL JAIME Comment:Testing performed by : [address] [address] Albumin 3.9 3.5 - 5.0 g/dL JAIME Comment:Testing performed by : [address], [address] Alk phos 68 40 - 130 Units/L JAIME Comment:Testing performed by : [address] [address] ALT 15 7 - 55 Units/L JAIME Comment:Testing performed by : [address], [address] AST 15 10 - 50 Units/L JAIME Comment:Testing performed by : [address] [address] Blood 02/05/2024 1:18 PM SURGICAL ASST 02/05/2024 1:19 PM SURGICAL ASST us Venkat Vivar DO LAB BLOOD ORDERABLES Final R esult [place] [address] [facility] [place] [address] * RAD ONC ARIA SESSION SUMMARY (02/05/2024 12:55 PM SURGICAL ASST) Course Name C1_BLADDER_ 2023 ARIA Course Plan Date 01/22/2024 3:44 PM ARIA Elapsed Days 3 ARIA Treatment Start Date 2024 ARIA Treatment Site BLADDER ARIA Dose Given To Date (cGy) 1,100 ARIA Session Dosage Given (cGy) 275 ARIA Plan ID BLADDER ARIA Fractions Treated 4 ARIA Prescribed Dose Per Fraction (cGy) 275 ARIA Prescribed Total Dose (cGy) 5,500 ARIA 02/05/2024 12:5 5 PM SURGICAL ASST us Not In File Miscellaneous RADIATION ONCOLOGY ORD ERABLES Final Result LADONNA * RAD ONC ARIA SESSION SUMMARY (02/04/2024 1:54 PM SURGICAL ASST) Course Name C1_BLADDER_ 2023 ARIA Course Plan Date 01/22/2024 3:44 PM ARIA Elapsed Days 2 ARIA Treatment Start Date 2024 ARIA Treatment Site BLADDER ARIA Dose Given To Date (cGy) 825 ARIA Session Dosage Given (cGy) 275 ARIA Plan ID BLADDER ARIA Fractions Treated 3 ARIA Prescribed Dose Per Fraction (cGy) 275 ARIA Prescribed Total Dose (cGy) 5,500 ARIA 02/04/2024 1:54 PM SURGICAL ASST us Not In File Miscellaneous RADIATION ONCOLOGY ORD ERABLES Final Result Performing Organization Address [facility] de Phone Number ARIA * RAD ONC ARIA SESSION SUMMARY (02/03/2024 8:21 AM SURGICAL ASST) Course Name C1_BLADDER_ 2023 ARIA Course Plan Date 01/22/2024 3:44 PM ARIA Elapsed Days 1 ARIA Treatment Start Date 2024 ARIA Treatment Site BLADDER ARIA Dose Given To Date (cGy) 550 ARIA Session Dosage Given (cGy) 275 ARIA Plan ID BLADDER ARIA Fractions Treated 2 ARIA Prescribed Dose Per Fraction (cGy) 275 ARIA Prescribed Total Dose (cGy) 5,500 ARIA 02/03/2024 8:21 AM SURGICAL ASST us Not In File Miscellaneous RADIATION ONCOLOGY ORD ERABLES Final Result Performing Organization Address [facility] Co de Phone Number ARIA * eGFR (2024 12:47 PM SURGICAL ASST) eGFR >90 >=60 mL/min/1. 73 m2 Comment: [...] was last reviewed 2021. Testing performed by: [address] [address] Blood 2024 12:4 7 PM SURGICAL ASST 2024 12:49 PM SURGICAL ASST us Venkat Vivar DO LAB BLOOD ORDERABLES Final R esult JAIME [address] [facility] [place] [address] * Differential, auto (2024 12:47 PM SURGICAL ASST) Neutrophil abs 4.2 1.5 - 6.5 K/cumm Comment:Testing performed by : [address] [address] Imm gran abs 0.0 0.0 - 0.1 K/cumm JAIME Comment:Testing performed by : [address] [address] Lymphocyte abs 1.5 0.8 - 3.3 K/cumm JAIME Comment:Testing performed by : [address] [address] Monocyte abs 0.8 0.2 - 0.8 K/cumm JAIME Comment:Testing performed by : [address] [address] Eosinophil abs 0.2 0.0 - 0.5 K/cumm JAIME Comment:Testing performed by : [address] [address] Basophil abs 0.0 0.0 - 0.1 K/cumm [facility] Comment:Testing performed by : [address] [address] Neutrophil pct 61.5 % [facility] Comment: Interpretive Data Percent cell count reference ranges are not reported, since discordance with absolute values may lead to misinterpretation of CBC data. Current Interpretive Data was last revised on 2017. Testing performed by: [address] [address] Imm gran pct 0.4 % [facility] Comment: Interpretive Data Percent cell count reference ranges are not reported, since discordance with absolute values may lead to misinterpretation of CBC data. Current Interpretive Data was last revised on 2017. Testing performed by: [address] [address] Lymphocyte pct 22.4 % [facility] Comment: Interpretive Data Percent cell count reference ranges are not reported, since discordance with absolute values may lead to misinterpretation of CBC data. Current Interpretive Data was last revised on 2017. Testing performed by: [address] [address] Monocyte pct 11.9 % [facility] Comment: Interpretive Data Percent cell count reference ranges are not reported, since discordance with absolute values may lead to misinterpretation of CBC data. Current Interpretive Data was last revised on 2017. Testing performed by: [address] [address] Eosinophil pct 3.2 % [facility] Comment: Interpretive Data Percent cell count reference ranges are not reported, since discordance with absolute values may lead to misinterpretation of CBC data. Current Interpretive Data was last revised on 2017. Testing performed by: [address] [address] Basophil pct 0.6 % JAIME Comment: Interpretive Data Percent cell count reference ranges are not reported, since discordance with absolute values may lead to misinterpretation of CBC data. Current Interpretive Data was last revised on 2017. Testing performed by: [address] [address] Blood 2024 12:4 7 PM SURGICAL ASST 2024 12:49 PM SURGICAL ASST Venkat Vivar DO LAB BLOOD ORDERABLES Final R esult JAIME [address] [facility] [place] [address] * (ABNORMAL) CBC with auto differential (2024 12:47 PM SURGICAL ASST) WBC 6.8 3.8 - 9.9 K/cumm Comment:Testing performed by : [address] [address] Hgb 12.6(L) 13.0 - 17.5 g/dL JAIME Comment:Testing performed by : [address] [address] Hct 37.0(L) 38.9 - 50.3 % JAIME Comment:Testing performed by : [address] [address] Plt 185 150 - 400 K/cumm JAIME Comment:Testing performed by : [address] [address] MPV 8.9(L) 9.1 - 12.3 fL JAIME Comment:Testing performed by : [address] [address] RBC 3.89(L) 4.30 - 5.80 M/cumm JAIME Comment:Testing performed by : [address] [address] MCV 95.1 81.3 - 96.4 fL JAIME Comment:Testing performed by : [address] [address] MCH 32.4 27.1 - 33.3 pg JAIME PINEDA Comment:Testing performed by : [address] [address] MCHC 34.1 32.3 - 35.7 g/dL JAIME PINEDA Comment:Testing performed by : [address] [address] RDW CV 14.3 11.1 - 14.9 % JAIME PINEDA Comment:Testing performed by : [address] [address] RDW SD 50.1(H) 35.7 - 48.1 fL JAIME PINEDA Comment:Testing performed by : [address] [address] NRBC abs 0.00 0.00 - 0.01 K/cumm JAIME PINEDA Comment:Testing performed by : [address] [address] Blood 2024 12:4 7 PM SURGICAL ASST 2024 12:49 PM SURGICAL ASST us Venkat Vivar DO LAB BLOOD ORDERABLES Final R esult JAIME PINEDA [address] [facility] Department of Laboratories [place], [place] [address] * Comprehensive metabolic panel (2024 12:47 PM SURGICAL ASST) Sodium 142 135 - 145 mmol/L Comment:Testing performed by : [address] [address] Potassium, pl 4.4 3.3 - 4.9 mmol/L JAIME PINEDA Comment:Testing performed by : [address] [address] Chloride 107 97 - 110 mmol/L JAIME PINEDA Comment:Testing performed by : [address] [address] CO2 27 22 - 32 mmol/L JAIME PINEDA Comment:Testing performed by : [address] [address] Anion gap 8 2 - 15 mmol/L JAIME Comment:Testing performed by : [address] [address] BUN 15 6 - 25 mg/dL JAIME Comment:Testing performed by : [address] [address] Creatinine 0.80 0.80 - 1.30 mg/dL JAIME Comment:Testing performed by : [address] [address] Glucose 108 70 - 199 mg/dL JAIME [...] was last revised 2022. Testing performed by: [address] [address] Calcium 9.0 8.5 - 10.3 mg/dL JAIME Comment:Testing performed by : [address] [address] Bilirubin, total 0.4 0.1 - 1.2 mg/dL JAIME Comment:Testing performed by : [address] [address] Protein, pl 7.2 6.5 - 8.5 g/dL JAIME Comment:Testing performed by : [address] [address] Albumin 4.1 3.5 - 5.0 g/dL JAIME Comment:Testing performed by : [address] [address] Alk phos 71 40 - 130 Units/L JAIME Comment:Testing performed by : [address] [address] ALT 15 7 - 55 Units/L JAIME Comment:Testing performed by : [facility], [address] [place] [address]., [address] AST 16 10 - 50 Units/L JAIME Comment:Testing performed by : [facility], [address] [place] [address]., [address] Blood 2024 12:4 7 PM SURGICAL ASST 2024 12:49 PM SURGICAL ASST Venkat Vivar DO LAB BLOOD ORDERABLES Final R esult JAIME [address] [facility] [place] [address] * RAD ONC ARIA SESSION SUMMARY (2024 11:28 AM SURGICAL ASST) Course Name C1_BLADDER_ 2023 ARIA Course Plan Date 01/22/2024 3:44 PM ARIA Elapsed Days 0 ARIA Treatment Start Date 2024 ARIA Treatment Site BLADDER ARIA Dose Given To Date (cGy) 275 ARIA Session Dosage Given (cGy) 275 ARIA Plan ID BLADDER ARIA Fractions Treated 1 ARIA Prescribed Dose Per Fraction (cGy) 275 ARIA Prescribed Total Dose (cGy) 5,500 ARIA 2024 11:2 8 AM SURGICAL ASST us Not In File Miscellaneous RADIATION ONCOLOGY ORD ERABLES Final Result Performing Organization Address City/[facility]/ZIP Co de Phone Number ARIGeetha from Last 3 Months Insurance MEDICARE [employer] SENIOR SUPPLEMENT MEDICARE [facility] MEDICARE SUPPLEMENT MEDICARE [facility] MEDICARE SUPPLEMENT Member Subscriber Plan / Payer (Ef fective 2020-Present) Name:Venkat Aranda Relation to Subscriber:Self Name:Venkat Aranda Payer ID:[id number] Group ID:[id number] Type:COMMERCIAL Address: [address] [place] [id number] Care Teams Physician Representative Relationship Specialty Start Date End Date Nikky Reyes MD [address] [facility] [address] [place] [address] PCP - General Family Practice 12/15/23 Venkat Vivar DO [address] [place] [address] MEDICAL ONCOLOGY, [facility] [address] [place] [address] Medical Oncologist/Reclamation Kettle Tender Hematology and Oncology 12/15/23 Kwaku Martin MD [address] [place] [address] Consulting Physician Urology 12/15/23 Richard Hargrove MD [address] [place] [address] [address] [place] [address] Radiation Oncologist Radiation Oncology 01/08/24 Adelso Qu[place] [address] [address] [facility] [address] [place] [address] Surgeon Urology 01/22/24
--- OUTSIDE RECORDS SUMMARY | 2024-04-12 17:03 | XMS_ITS | Encounter Summary ---
Author Organization [facility] Healthcare Address [address] [place] [address] Care Team Providers Care Industrial Electrical Technician Name Role Phone Nikky Reyes MD Primary Care Provider Venkat Vivar DO Unavailable [phone] Kwaku Martin MD Unavailable [phone] Richard Hargrove MD Unavailable [phone] Adelso Quiñones MD Unavailable [phone] Encounter Details Date Type Department Care [...] on file Legal Sex Male 2:03 AM STUDENT AMBASSADOR Gender Identity Not on file Sexual Orientation Not on file Occupation Industry Job Start Date Job End Date Retired Not on file Not on file Not on file documented as of this encounter Plan of Treatment Not on file documented as of this encounter Procedures Procedure Name Priority Date/Time Associated Diagnosis Comments RAD ONC ARIA COURSE SUMMARY 03/01/2024 4:28 PM STUDENT AMBASSADOR documented in this encounter Results * RAD ONC ARIA COURSE SUMMARY (03/01/2024 4:28 PM STUDENT AMBASSADOR) Course Name C1_BLADDER_ 2023 ARIA Course Plan Date 01/22/2024 3:44 PM ARIA Elapsed Days 28 ARIA Treatment Start Date 2024 ARIA Treatment Site BLADDER ARIA Dose Given To Date (cGy) 5,500 ARIA Session Dosage Given (cGy) 0 ARIA Plan ID BLADDER ARIA Fractions Treated 20 ARIA Prescribed Dose Per Fraction (cGy) 275 ARIA Prescribed Total Dose (cGy) 5,500 ARIA 03/01/2024 4:28 PM STUDENT AMBASSADOR us Not In File Miscellaneous RADIATION ONCOLOGY ORD ERABLES Final Result ARIA documented in this encounter Visit Diagnoses Not on filedocumented in this encounter Care Teams Industrial Electrical Technician Relationship Specialty Start Date End Date Nikky Reyes MD [address] [place] [address] [address] [place] [address] PCP - General Family Practice 12/15/23 [place] [address] [place] [address] MEDICAL ONCOLOGY, [facility] [address] [place], [place] [id number] Medical Oncologist/Hyperion Administrator Hematology and Oncology 12/15/23 Kwaku Martin MD [address] [place] [address] Consulting Physician Urology 12/15/23 Richard Hargrove MD [address] [address] Radiation Oncologist Radiation Oncology 01/08/24 Adelso Quiñones [place] [address] [place] [address] Surgeon Urology 01/22/24 documented as of this encounter
--- OUTSIDE RECORDS SUMMARY | 2024-04-12 17:03 | XMS_ITS | Encounter Summary ---
Author Organization [facility] Address [address] [place] [address] Phone Care Team Providers Care Communications Tower Climber Name Role Phone Nikky Reyes MD Primary Care Provider Mitchell Martinez DO Unavailable Kwaku Martin MD Unavailable [phone] Richard Hargrove MD Unavailable [phone] Adelso Quiñones MD Unavailable [phone] Reason for Visit * Reason Comments Follow-up Encounter Details Date Type Department Care Team ([facility] st Contact Info) Description 03/01/2024 10:45 AM FLIGHT ATTENDANT RAMP Office Visit [facility] Oncology [address] [place] [address] [phone] Mitchell Martinez DO [address] [place] [address] Malignant neoplasm of ureteric orifice (HCC) (Primary [...] on file Legal Sex Male 2:03 AM FLIGHT ATTENDANT RAMP Gender Identity Not on file Sexual Orientation Not on file Occupation Industry Job Start Date Job End Date Retired Not on file Not on file Not on file documented as of this encounter Last Filed Vital Signs Vital Sign Reading Time Taken Comments Blood Pressure 118/75 03/01/2024 11:02 AM FLIGHT ATTENDANT RAMP Pulse 60 03/01/2024 11:02 AM FLIGHT ATTENDANT RAMP Temperature 36.8 ??C (98.2 ??F) 03/01/2024 11:[address] Respiratory Rate 18 03/01/2024 11:02 AM FLIGHT ATTENDANT RAMP Oxygen Saturation 97% 03/01/2024 11:02 AM FLIGHT ATTENDANT RAMP Inhaled Oxygen Concentration - - Weight 87.3 kg (192 lb 6.4 oz) 03/01/2024 11:02 AM FLIGHT ATTENDANT RAMP no shoes Height - - Body Mass Index 25.38 02/25/2024 12:13 AM FLIGHT ATTENDANT RAMP documented in this encounter Ordered Prescriptions Prescription [...] Follow up; MITCHELL MARTINEZ; Clinic Appointment Location: [facility] [place] [address]; Future Malignant neoplasm of urinary bladder, unspecified site (HCC) - Clinic Appointment Request Follow up; MITCHELL MARTINEZ MD; Clinic Appointment Location: [facility] [place] [address] Anemia due to chemotherapy - Clinic Appointment Request Follow up; MITCHELL MARTINEZ; Clinic Appointment Location: [facility]; Future - Lab Draw Appt Request Arm Draw or Central Line Draw? Arm; Ordering location: IM Onc/Hem/BMT; Treatment location: [facility]; Future - CBC with auto differential; Future [...] improved with oral based therapy by his contour band saw operator vertical up to 50% based on patient's information. [...] 03/01/2024 ALT 24 03/01/2024 AST 17 03/01/2024 HT ATTENDANT RAMP documented in this encounter Plan of Treatment [...] 03/01/2024 documented in this encounter Care Teams Communications Tower Climber Relationship Specialty Start Date End Date Nikky Reyes MD [address] [facility] [address] [place] [address] PCP - General Family Practice 12/15/23 Mitchell Martinez DO 1418 [facility] MEDICAL ONCOLOGY, [facility] 180 [place] [address] Medical Oncologist/Can Tender Hematology and Oncology 12/15/23 Kwaku Martin MD [address] [place] [address] Consulting Physician Urology 12/15/23 Richard Hargrove MD 1418 [facility] 160 [place] [address] Radiation Oncologist Radiation Oncology 01/08/24 Adelso Quiñ[place] [address] [place] [address] Surgeon Urology 01/22/24 documented as of this encounter
--- OUTSIDE RECORDS SUMMARY | 2024-04-12 17:04 | XMS_ITS | Encounter Summary ---
Author Organization [facility] Healthcare Address [address] [place] [address] Care Team Providers Care Cold Rolling Coordinator Name Role Phone Nikky Reyes MD Primary Care Provider Venkat Vivar DO Unavailable [phone] Kwaku Martin MD Unavailable [phone] Richard Hargrove MD Unavailable [phone] Adelso Quiñones MD Unavailable [phone] Encounter Details Date Type Department Care [...] on file Legal Sex Male 2:03 AM DESK SERGEANT Gender Identity Not on file Sexual Orientation Not on file Occupation Industry Job Start Date Job End Date Retired Not on file Not on file Not on file documented as of this encounter Plan of Treatment Not on file documented as of this encounter Procedures Procedure Name Priority Date/Time Associated Diagnosis Comments RAD ONC ARIA SESSION SUMMARY 02/20/2024 9:41 AM DESK SERGEANT documented in this encounter Results * RAD ONC ARIA SESSION SUMMARY (02/20/2024 9:41 AM DESK SERGEANT) Course Name [email or web address]_ 2023 ARIA Course Plan Date 01/22/2024 3:44 PM ARIA Elapsed Days 18 ARIA Treatment Start Date 2024 ARIA Treatment Site BLADDER ARIA Dose Given To Date (cGy) 4,125 ARIA Session Dosage Given (cGy) 275 ARIA Plan ID BLADDER ARIA Fractions Treated 15 ARIA Prescribed Dose Per Fraction (cGy) 275 ARIA Prescribed Total Dose (cGy) 5,500 ARIA 02/20/2024 9:41 AM DESK SERGEANT us Not In File Miscellaneous RADIATION ONCOLOGY ORD ERABLES Final Result ARIA documented in this encounter Visit Diagnoses Not on filedocumented in this encounter Care Teams Cold Rolling Coordinator Relationship Specialty Start Date End Date Nikky Reyes MD [facility]7 [facility] 2 [place] [address] PCP - General Family Practice 12/15/23 [place] [address] [place] [address] MEDICAL ONCOLOGY, [facility] 180 [place], [place] [phone] Medical Oncologist/Resident Care Spec Hematology and Oncology 12/15/23 Kwaku Martin MD [address] [place] [address] Consulting Physician Urology 12/15/23 Richard Hargrove MD 1418 [facility] 160 [place], [place] [phone] Radiation Oncologist Radiation Oncology 01/08/24 Adelso Quiñones [place] [address] [place] [address] Surgeon Urology 01/22/24 documented as of this encounter
--- OUTSIDE RECORDS SUMMARY | 2024-04-12 17:04 | XMS_ITS | Encounter Summary ---
Author Organization [facility] Healthcare Address [address] [place] [address] Care Team Providers Care Education Department Chair Name Role Phone Nikky Reyes MD Primary Care Provider Venkat Vivar DO Unavailable [phone] Kwaku Martin MD Unavailable [phone] Richard Hargrove MD Unavailable [phone] Adelso Quiñones MD Unavailable [phone] Encounter Details Date Type Department Care [...] on file Legal Sex Male 2:03 AM JOINERY PATTERNMAKER Gender Identity Not on file Sexual Orientation Not on file Occupation Industry Job Start Date Job End Date Retired Not on file Not on file Not on file documented as of this encounter Plan of Treatment Not on file documented as of this encounter Procedures Procedure Name Priority Date/Time Associated Diagnosis Comments RAD ONC ARIA SESSION SUMMARY 02/22/2024 9:35 AM JOINERY PATTERNMAKER documented in this encounter Results * RAD ONC ARIA SESSION SUMMARY (02/22/2024 9:35 AM JOINERY PATTERNMAKER) Course Name [email or web address]_ 2023 ARIA Course Plan Date 01/22/2024 3:44 PM ARIA Elapsed Days 20 ARIA Treatment Start Date 2024 ARIA Treatment Site BLADDER ARIA Dose Given To Date (cGy) 4,400 ARIA Session Dosage Given (cGy) 275 ARIA Plan ID BLADDER ARIA Fractions Treated 16 ARIA Prescribed Dose Per Fraction (cGy) 275 ARIA Prescribed Total Dose (cGy) 5,500 ARIA 02/22/2024 9:35 AM JOINERY PATTERNMAKER us Not In File Miscellaneous RADIATION ONCOLOGY ORD ERABLES Final Result ARIA documented in this encounter Visit Diagnoses Not on filedocumented in this encounter Care Teams Education Department Chair Relationship Specialty Start Date End Date Nikky Reyes MD [facility]7 [facility] 2 [place] [address] PCP - General Family Practice 12/15/23 Venkat Vivar DO 1418 [facility] MEDICAL ONCOLOGY, [facility] 180 [place], [place] [phone] Medical Oncologist/Cooler Worker Hematology and Oncology 12/15/23 Kwaku Martin MD [address] [place] [address] Consulting Physician Urology 12/15/23 Richard Hargrove MD 1418 [facility] 160 [place], [place] [phone] Radiation Oncologist Radiation Oncology 01/08/24 Adelso Quiñones [place] [address] [place] [address] Surgeon Urology 01/22/24 documented as of this encounter
--- OUTSIDE RECORDS SUMMARY | 2024-04-12 17:04 | XMS_ITS | Encounter Summary ---
Author Organization [facility] Address [address] [place] [address] Care Team Providers Care Printer Small Print Shop Name Role Phone Nikky Reyes MD Primary Care Provider Venkat Vivar DO Unavailable [phone] Kwaku Martin MD Unavailable [phone] Richard Hargrove MD Unavailable [phone] Adelso Quiñones MD Unavailable Encounter Details Date Type Department [...] on file Legal Sex Male 2:03 AM PYRIDINE OPERATOR Gender Identity Not on file Sexual Orientation Not on file Occupation Industry Job Start Date Job End Date Retired Not on file Not on file Not on file documented as of this encounter Plan of Treatment Not on file documented as of this encounter Procedures Procedure Name Priority Date/Time Associated Diagnosis Comments RAD ONC ARIA SESSION SUMMARY 02/19/2024 9:52 AM PYRIDINE OPERATOR documented in this encounter Results * RAD ONC ARIA SESSION SUMMARY (02/19/2024 9:52 AM PYRIDINE OPERATOR) Course Name C1_BLADDER_ 2023 ARIA Course Plan Date 01/22/2024 3:44 PM ARIA Elapsed Days 17 ARIA Treatment Start Date 2024 ARIA Treatment Site BLADDER ARIA Dose Given To Date (cGy) 3,850 ARIA Session Dosage Given (cGy) 275 ARIA Plan ID BLADDER ARIA Fractions Treated 14 ARIA Prescribed Dose Per Fraction (cGy) 275 ARIA Prescribed Total Dose (cGy) 5,500 ARIA 02/19/2024 9:52 AM PYRIDINE OPERATOR us Not In File Miscellaneous RADIATION ONCOLOGY ORD ERABLES Final Result ARIA documented in this encounter Visit Diagnoses Not on filedocumented in this encounter Care Teams Printer Small Print Shop Relationship Specialty Start Date End Date Nikky Reyes MD [facility] 2 [place] [address] PCP - General Family Practice 12/15/23 Venkat Vivar DO 1418 [facility] MEDICAL ONCOLOGY, [facility] 180 [place], [place] [phone] Medical Oncologist/Mechanical Ordnance Assembler Hematology and Oncology 12/15/23 Kwaku Martin MD [address] [place] [address] Consulting Physician Urology 12/15/23 Richard Hargrove MD 1418 [facility] 160 [place], [place] [phone] Radiation Oncologist Radiation Oncology 01/08/24 Adelso Quiñones [place] [address] [place] [address] Surgeon Urology 01/22/24 documented as of this encounter
--- OUTSIDE RECORDS SUMMARY | 2024-04-12 17:04 | XMS_ITS | Encounter Summary ---
Author Organization [facility] Healthcare Address [address] [place] [address] Care Team Providers Care Hogshead Hand Name Role Phone Nikky Reyes MD Primary Care Provider Venkat Vivar DO Unavailable [phone] Kwaku Martin MD Unavailable [phone] Richard Hargrove MD Unavailable [phone] Adelso Quiñones MD Unavailable [phone] Encounter Details Date Type Department Care [...] on file Legal Sex Male 2:03 AM RADIAL SAW OPERATOR Gender Identity Not on file Sexual Orientation Not on file Occupation Industry Job Start Date Job End Date Retired Not on file Not on file Not on file documented as of this encounter Plan of Treatment Not on file documented as of this encounter Procedures Procedure Name Priority Date/Time Associated Diagnosis Comments RAD ONC ARIA SESSION SUMMARY 02/24/2024 9:44 AM RADIAL SAW OPERATOR documented in this encounter Results * RAD ONC ARIA SESSION SUMMARY (02/24/2024 9:44 AM RADIAL SAW OPERATOR) Course Name C1_BLADDER_ 2023 ARIA Course Plan Date 01/22/2024 3:44 PM ARIA Elapsed Days 22 ARIA Treatment Start Date 2024 ARIA Treatment Site BLADDER ARIA Dose Given To Date (cGy) 4,950 ARIA Session Dosage Given (cGy) 275 ARIA Plan ID BLADDER ARIA Fractions Treated 18 ARIA Prescribed Dose Per Fraction (cGy) 275 ARIA Prescribed Total Dose (cGy) 5,500 ARIA 02/24/2024 9:44 AM RADIAL SAW OPERATOR us Not In File Miscellaneous RADIATION ONCOLOGY ORD ERABLES Final Result ARIA documented in this encounter Visit Diagnoses Not on filedocumented in this encounter Care Teams Hogshead Hand Relationship Specialty Start Date End Date Nikky Reyes MD [address] [place] [address] 2 [place] [address] PCP - General Family Practice 12/15/23 [place] [address] [place] [address] MEDICAL ONCOLOGY, [facility] 180 [place], [place] [phone] Medical Oncologist/Patternmaker Hand Hematology and Oncology 12/15/23 Kwaku Martin MD 1 [place] [address] Consulting Physician Urology 12/15/23 Richard Hargrove MD [address] [address] Radiation Oncologist Radiation Oncology 01/08/24 Adelso Quiñones [place] [address] [place] [address] Surgeon Urology 01/22/24 documented as of this encounter
--- OUTSIDE RECORDS SUMMARY | 2024-04-12 17:04 | XMS_ITS | Encounter Summary ---
Author Organization [facility] Healthcare Address [address] [place] [address] Care Team Providers Care V Belt Skiver Name Role Phone Nikky Reyes MD Primary Care Provider Venkat Vivar DO Unavailable [phone] Kwaku Martin MD Unavailable [phone] Richard Hargrove MD Unavailable [phone] Adelso Quiñones MD Unavailable [phone] Encounter Details Date Type Department Care Team (Late st Contact Info) Description 02/17/2024 9:30 AM ELECTRICAL TECHNICIAN Treatment [facility] Medical Office Building 2 Radiation Oncology [address] [place] [address] Social History Tobacco Use Types Packs/Day Years [...] file Legal Sex Male 2:03 AM ELECTRICAL TECHNICIAN Gender Identity Not on file Sexual Orientation Not on file Occupation Industry Job Start Date Job End Date Retired Not on file Not on file Not on file documented as of this encounter Plan of Treatment Not on file documented as of this encounter Visit Diagnoses Not on filedocumented in this encounter Care Teams V Belt Skiver Relationship Specialty Start Date End Date Nikky eRyes MD 3417 [facility] [address] [place] [address] PCP - General Family Practice 12/15/23 [place] [address] [place] [address] MEDICAL ONCOLOGY, [facility] 180 [place] [address] Medical Oncologist/Production Assistant Hematology and Oncology 12/15/23 Kwaku Martin MD [address] [place] [address] Consulting Physician Urology 12/15/23 [place] [address] [place] [address] 160 [place] [address] Radiation Oncologist Radiation Oncology 01/08/24 Adelso Quiñones [place] [address] [place] [address] Surgeon Urology 01/22/24 documented as of this encounter
--- OUTSIDE RECORDS SUMMARY | 2024-04-12 17:04 | XMS_ITS | Encounter Summary ---
Author Organization [facility] Healthcare Address [address] [place] [address] Care Team Providers Care Bottling Line Operator Name Role Phone Nikky Reyes MD Primary Care Provider Venkat Vivar DO Unavailable [phone] Kwaku Martin MD Unavailable [phone] Richard Hargrove MD Unavailable [phone] Adelso Quiñones MD Unavailable [phone] Reason for Visit * Reason Comments Nutrition Counseling Encounter Details Date Type Department Care Team (Latest Contact Info) Description 02/19/2024 9:45 AM BORING MILL SET UP OPERATOR Clinical Support [facility] Medical Office Building 2 Radiation Oncology [address] [place] [address] Malignant neoplasm of urinary bladder, unspecified site [...] on file Legal Sex Male 2:03 AM BORING MILL SET UP OPERATOR Gender Identity Not on file Sexual [...] lb 3.2 oz) Current BMI: 26.63 kg/m?? [place] body weight: 78.6 kg (173 lb 5 [...] per month for three months from the [employer] Supplement Assistance Program was written and logged and entered into WEALTH at workheet today and the patient and family were told where to pick this up. The patient was encouraged to contact me during the course of treatment with any nutritional questions or concerns. Adenike Wang, MS, RDN, DIGITAL COORDINATOR, LD Oncology Nc Manager and Registered Dietitian [facility] [place], [place] [phone] [email or web address] [email or web address] SET UP OPERATOR documented in this encounter Plan of Treatment Not on file documented as of this encounter Visit Diagnoses Diagnosis Malignant neoplasm of urinary bladder, unspecified site (HCC)- Primary documented in this encounter Care Teams Bottling Line Operator Relationship Specialty Start Date End Date Nikky Reyes MD 3417 [facility] 2 [place], [place] [id number] PCP - General Family Practice 12/15/23 Venkat Vivar DO 1418 [facility] MEDICAL ONCOLOGY, [facility] 180 [place] [address] Medical Oncologist/Automotive Welder Hematology and Oncology 12/15/23 Kwaku Maritn MD 1 [place] [address] Consulting Physician Urology 12/15/23 Richard Hargrove MD 1418 [facility] 160 [place] [address] Radiation Oncologist Radiation Oncology 01/08/24 Adelso Quiñones [place] [address] [facility] 375 [place] [address] Surgeon Urology 01/22/24 documented as of this encounter
--- OUTSIDE RECORDS SUMMARY | 2024-04-12 17:04 | XMS_ITS | Encounter Summary ---
Author Organization [facility] Healthcare Address [address] [place] [address] Care Team Providers Care Veterinary Medicine Doctor Name Role Phone Nikky Reyes MD Primary Care Provider Venkat Vivar DO Unavailable [phone] Kwaku Martin MD Unavailable [phone] Richard Hargrove MD Unavailable [phone] Adelso Quiñones MD Unavailable [phone] Encounter Details Date Type Department Care Team (Late st Contact Info) Description 02/22/2024 9:30 AM MINING SUPPORT WORKER Treatment [facility] Medical Office Building 2 Radiation Oncology [address] [place] [address] Social History Tobacco Use Types Packs/Day Years [...] on file Legal Sex Male 2:03 AM MINING SUPPORT WORKER Gender Identity Not on file Sexual Orientation Not on file Occupation Industry Job Start Date Job End Date Retired Not on file Not on file Not on file documented as of this encounter Plan of Treatment Not on file documented as of this encounter Visit Diagnoses Not on filedocumented in this encounter Care Teams Veterinary Medicine Doctor Relationship Specialty Start Date End Date Nikky Reyes MD [address] [facility] 2 [place], [place] [phone] PCP - General Family Practice 12/15/23 Venkat Vivar DO 1418 [facility] MEDICAL ONCOLOGY, [facility] 180 [place] [address] Medical Oncologist/Rfp Writer Hematology and Oncology 12/15/23 Kwaku Martin MD 1 [place] [address] Consulting Physician Urology 12/15/23 Richard Hargrove MD 1418 [facility] 160 [place], [place] [phone] Radiation Oncologist Radiation Oncology 01/08/24 Adelso Quiñones [place] [address] [place] [address] Surgeon Urology 01/22/24 documented as of this encounter
--- OUTSIDE RECORDS SUMMARY | 2024-04-12 17:04 | XMS_ITS | Encounter Summary ---
Author Organization [facility] Healthcare Address [address] [place] [address] Care Team Providers Care Retirement Sales Consultant Name Role Phone Nikky Reyes MD Primary Care Provider Venkat Vivar DO Unavailable [phone] Kwaku Martin MD Unavailable [phone] Richard Hargrove MD Unavailable [phone] Adelso Quiñones MD Unavailable [phone] Reason for Visit * Reason Comments Constipation Vomiting Encounter Details Date Type Department Care Team ([facility] Contact Info) Description 02/25/2024 12:39 AM [facility] - 02/25/2024 4:06 AM [facility] Emergency Department [address] [place] [address] Kwaku Roland Jr., MD [address] [place] [address] Abdominal pain (Primary Dx); Constipation, unspecified constipation [...] on file Legal Sex Male 2:03 AM WOOD SKI MAKER Gender Identity Not on file Sexual Orientation Not on file Occupation Industry Job Start Date Job End Date Retired Not on file Not on file Not on file documented as of this encounter Last Filed Vital Signs Vital Sign Reading Time Taken Comments Blood Pressure 103/61 02/25/2024 3:40 AM WOOD SKI MAKER Pulse 80 02/25/2024 3:40 AM WOOD SKI MAKER Temperature 36.9 ??C (98.4 ??F) 02/25/2024 3:40 AM CS T Respiratory Rate 16 02/25/2024 3:40 AM WOOD SKI MAKER Oxygen Saturation 96% 02/25/2024 3:40 AM WOOD SKI MAKER Inhaled Oxygen Concentration - - Weight 90.7 kg (199 lb 15.3 oz) 024 12:13 AM WOOD SKI MAKER Height 185.4 cm (6' 1 ) 02/25/2024 12:1 3 AM WOOD SKI MAKER Body Mass Index 26.38 02/25/2024 12:13 AM WOOD SKI MAKER documented in this encounter Discharge Instructions * Discharge Instructions* Kwaku Roland Jr., MD - 02/25/2024 3:56 AM WOOD SKI MAKER Metamucil to heaping tbsp in a glass of water twice a day MiraLax twice daily Magnesium citrate 4-8 oz every 4 hours as needed if constipation develops Return to the emergency department if worsens, develops fever, bleeding, vomiting, or other concerns SKI MAKER * Attachments The following attachments cannot be sent through Care Everywhere. * External Beam Radiation Therapy (General Information) ([place]) * Constipation (General Information) ([place]) * Bladder Cancer (General Information) ([place]) * Colitis (AfterCare(R) Instructions(ER/ED)) ([place]) documented in this encounter Medications at Time [...] reasons above. 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 Pt reports that his doctor prescribed laxatives and stool softeners without relief. Chemo and radiation for bladder cancer. SKI MAKER documented in this encounter Plan of Treatment Not on file documented as of this encounter Procedures Procedure Name Priority Date/Time Associated Diagnosis Comments CT ABDOMEN PELVIS W CONTRAST ED 02/25/2024 1:24 AM WOOD SKI MAKER EGFR STAT 02/25/2024 12:21 AM WOOD SKI MAKER DIFFERENTIAL AUTO STAT 02/25/2024 12: 21 AM WOOD SKI MAKER CBC WITH AUTO DIFFERENTIAL STAT 02/25/2024 12:21 AM WOOD SKI MAKER LIPASE STAT 02/25/2024 12:21 AM WOOD SKI MAKER COMPREHENSIVE METABOLIC PANEL STAT 02/25/2024 12:21 AM WOOD SKI MAKER documented in this encounter Results * CT Abdomen Pelvis W Contrast (02/25/2024 1:24 AM WOOD SKI MAKER) Anatomical Region Laterality Modality Body N/A Computed Tomogra phy 02/25/2024 1:32 AM WOOD SKI MAKER Narrative 02/25/2024 1:44 AM WOOD SKI MAKER EXAM DESCRIPTION: ?? CT ABDOMEN PELVIS W [...] AM T: ??02/25/2024 1:44 AM Report ID: [id number] Reading Location: ??[id number] Procedure Note Camilla Aguirre MD - 02/25/2024 [...] by Camilla Aguirre M.D. SN: Report ID: [id number] Reading Location: [place] [address] Kwaku Roland Jr., MD IMG CT PROCEDURES Final Result * eGFR (02/25/2024 12:21 AM WOOD SKI MAKER) eGFR >90 >=60 mL/min/1. 73 m2 Comment: [...] was last reviewed 2021. Testing performed by: [facility], [address] [place] [address]., [id number] Blood 02/25/2024 12:2 1 AM WOOD SKI MAKER 02/25/2024 12:31 AM WOOD SKI MAKER us Kwaku Roland Jr., MD LAB BLOOD ORDERABLES Fi nal Result JAIME [address] [place] [address] * (ABNORMAL) Differential, auto (02/25/2024 12:21 AM WOOD SKI MAKER) Neutrophil abs 4.5 1.5 - 6.5 K/cumm Comment:Testing performed by : [address] [address] Imm gran abs 0.0 0.0 - 0.1 K/cumm JAIME Comment:Testing performed by : [address] [address] Lymphocyte abs 0.5(L) 0.8 - 3.3 K/cumm JAIME Comment:Testing performed by : [address] [address] Monocyte abs 0.5 0.2 - 0.8 K/cumm JAIME Comment:Testing performed by : [address] [address] Eosinophil abs 0.1 0.0 - 0.5 K/cumm JAIME Comment:Testing performed by : [address] [address] Basophil abs 0.0 0.0 - 0.1 K/cumm JAIME Comment:Testing performed by : [address] [address] Neutrophil pct 80.8 % JAIME Comment: Interpretive Data Percent cell count reference ranges are not reported, since discordance with absolute values may lead to misinterpretation of CBC data. Current Interpretive Data was last revised on 2017. Testing performed by: [address] [address] Imm gran pct 0.7 % [facility] Comment: Interpretive Data Percent cell count reference ranges are not reported, since discordance with absolute values may lead to misinterpretation of CBC data. Current Interpretive Data was last revised on 2017. Testing performed by: [address] [address] Lymphocyte pct 8.5 % [facility] Comment: Interpretive Data Percent cell count reference ranges are not reported, since discordance with absolute values may lead to misinterpretation of CBC data. Current Interpretive Data was last revised on 2017. Testing performed by: [address] [address] Monocyte pct 8.3 % [facility] Comment: Interpretive Data Percent cell count reference ranges are not reported, since discordance with absolute values may lead to misinterpretation of CBC data. Current Interpretive Data was last revised on 2017. Testing performed by: [address] [address] Eosinophil pct 1.3 % [facility] Comment: Interpretive Data Percent cell count reference ranges are not reported, since discordance with absolute values may lead to misinterpretation of CBC data. Current Interpretive Data was last revised on 2017. Testing performed by: [address] [address] Basophil pct 0.4 % [facility] Comment: Interpretive Data Percent cell count reference ranges are not reported, since discordance with absolute values may lead to misinterpretation of CBC data. Current Interpretive Data was last revised on 2017. Testing performed by: [address] [address] Blood 02/25/2024 12:2 1 AM WOOD SKI MAKER 02/25/2024 12:31 AM WOOD SKI MAKER us Kwaku Roland Jr., MD LAB BLOOD ORDERABLES Fi nal Result Performing Organization Address City/[facility] Co de Phone Number [address] [address] * Lipase (02/25/2024 12:21 AM WOOD SKI MAKER) [facility] Lipase 27 10 - 99 Units/L Comment:Testing performed by : [address] [address] Blood (Blood, Venous) 02/25/2024 12:21 AM WOOD SKI MAKER 02/25/2024 12:31 AM WOOD SKI MAKER Kwaku Roland Jr., MD LAB BLOOD ORDERABLES Fi nal Result Performing Organization Address [facility] Co de Phone Number [address] [address] * (ABNORMAL) Comprehensive metabolic panel (02/25/2024 12:21 AM WOOD SKI MAKER) [facility] Sodium 138 135 - 145 mmol/L Comment:Testing performed by : [address] [address] Potassium, pl 3.6 3.3 - 4.9 mmol/L JAIME Comment:Testing performed by : [address] [address] Chloride 103 97 - 110 mmol/L JAIME Comment:Testing performed by : [address] [address] CO2 23 22 - 32 mmol/L JAIME Comment:Testing performed by : [address] [address] Anion gap 12 2 - 15 mmol/L JAIME Comment:Testing performed by : [address] [address] BUN 12 6 - 25 mg/dL JAIME Comment:Testing performed by : [address] [address] Creatinine 0.70(L) 0.80 - 1.30 mg/dL JAIME Comment:Testing performed by : [address] [address] Glucose 130 70 - 199 mg/dL JAIME [...] was last revised 2022. Testing performed by: [address] [address] Calcium 9.2 8.5 - 10.3 mg/dL JAIME Comment:Testing performed by : [address] [address] Bilirubin, total 0.6 0.1 - 1.2 mg/dL JAIME Comment:Testing performed by : [address] [address] Protein, pl 7.3 6.5 - 8.5 g/dL JAIME Comment:Testing performed by : [address] [address] Albumin 3.8 3.5 - 5.0 g/dL JAIME Comment:Testing performed by : [address] [address] Alk phos 77 40 - 130 Units/L JAIME Comment:Testing performed by : [address] [address] ALT 21 7 - 55 Units/L JAIME Comment:Testing performed by : [address] [address] AST 17 10 - 50 Units/L JAIME Comment:Testing performed by : [address] [address] Blood 02/25/2024 12:2 1 AM WOOD SKI MAKER 02/25/2024 12:31 AM WOOD SKI MAKER Kwaku Roland Jr., MD LAB BLOOD ORDERABLES Fi nal Result [facility] [address] [facility] Department [place] [address] * (ABNORMAL) CBC with auto differential (02/25/2024 12:21 AM WOOD SKI MAKER) WBC 5.5 3.8 - 9.9 K/cumm Comment:Testing performed by : [address] [address] Hgb 10.8(L) 13.0 - 17.5 g/dL JAIME Comment:Testing performed by : [address] [address] Hct 30.5(L) 38.9 - 50.3 % JAIME Comment:Testing performed by : [address] [address] Plt 164 150 - 400 K/cumm JAIME Comment:Testing performed by : [address] [address] MPV 8.8(L) 9.1 - 12.3 fL JAIME Comment:Testing performed by : [address] [address] RBC 3.15(L) 4.30 - 5.80 M/cumm JAIME Comment:Testing performed by : [address] [address] MCV 96.8(H) 81.3 - 96.4 fL JAIME Comment:Testing performed by : [address] [address] MCH 34.3(H) 27.1 - 33.3 pg JAIME Comment:Testing performed by : [address] [address] MCHC 35.4 32.3 - 35.7 g/dL JAIME Comment:Testing performed by : [address] [address] RDW CV 15.7(H) 11.1 - 14.9 % JAIME Comment:Testing performed by : [address] [address] RDW SD 50.6(H) 35.7 - 48.1 fL JAIME PINEDA Comment:Testing performed by : [address] [address] NRBC abs 0.00 0.00 - 0.01 K/cumm JAIME PINEDA Comment:Testing performed by : [address] [address] Blood (Blood, Venous) 02/25/2024 12:21 AM WOOD SKI MAKER 02/25/2024 12:31 AM WOOD SKI MAKER us Kwaku Roland Jr., MD LAB BLOOD ORDERABLES Fi nal Result JAIME P[facility]AD [address] [facility] Department [place] [address] documented in this encounter Visit Diagnoses Diagnosis [...] InfectionIndications:A bdominal/Pelvic Infection Given 02/25/2024 2:47 AM WOOD SKI MAKER 2,000 mg 240 mL/hr ioversoL (OPTIRAY 350) syringe 100 mL 100 mL, intravenous, Once in imaging, contrast, Starting on Fri02/25/24 at 0121, For 1 dose Contrast Given 02/25/2024 1:21 AM WOOD SKI MAKER 100 mL Left Forearm metroNIDAZOLE (FLAGYL) 500 mg/100 mL in sodium chloride (premix) 500 mg 500 mg, intravenous, at 200 mL/hr, Administer over 30 Minutes, Once, On Fri02/25/24 at 0238, For 1 dose, Room temperature only, Indications: Abdominal/Pelvic InfectionIndications:A bdominal/Pelvic Infection New Bag 02/25/2024 2:53 AM WOOD SKI MAKER 500 mg 200 mL/hr documented in this encounter Active and Recently Administered Medications Times are shown in WOOD SKI MAKER. Scheduled Medication Order 02/23/2024 02/24/2024 02/25/2024 [id number] [...] 02/25/2024 documented in this encounter Care Teams Retirement Sales Consultant Relationship Specialty Start Date End Date Nikky Reyes MD [address] [facility] [address] [place] [address] PCP - General Family Practice 12/15/23 Venkat Vivar DO [address] [facility] MEDICAL ONCOLOGY, [facility] [place] [address] [place] [address] Medical Oncologist/Repossession Agent Hematology and Oncology 12/15/23 Kwaku Martin MD [address] [place] [address] Consulting Physician Urology 12/15/23 Richard Hargrove MD [address] [address] Radiation Oncologist Radiation Oncology 01/08/24 Adelso Qu[place]ñones [place] [address] [address] Surgeon Urology 01/22/24 documented as of this encounter
--- OUTSIDE RECORDS SUMMARY | 2024-04-12 17:04 | XMS_ITS | Encounter Summary ---
Author Organization [facility] Healthcare Address [address] [place] [address] Care Team Providers Care Clinical Support Specialist Name Role Phone Nikky Reyes MD Primary Care Provider Venkat Vivar DO Unavailable [phone] Kwaku Martin MD Unavailable [phone] Richard Hargrove MD Unavailable [phone] Adelso Quiñones MD Unavailable [phone] Reason for Visit * Reason Comments OTV Encounter Details Date Type Department Care Team ([facility] Contact Info) Description 02/23/2024 OTV [facility] Medical Office Building 2 Radiation Oncology [address] [place] [id number] Richard Hargrove MD [address] [place], [place] [id number] Social History Tobacco Use Types Packs/Day Years [...] on file Legal Sex Male 2:03 AM AIR TECHNICIAN Gender Identity Not on file Sexual Orientation Not on file Occupation Industry Job Start Date Job End Date Retired Not on file Not on file Not on file documented as of this encounter Last Filed Vital Signs Vital Sign Reading Time Taken Comments Blood Pressure 119/73 02/23/2024 9:51 AM AIR TECHNICIAN Pulse 90 02/23/2024 9:51 AM AIR TECHNICIAN Temperature - - Respiratory Rate - - Oxygen Saturation 100% 02/23/2024 9:51 AM AIR TECHNICIAN Inhaled Oxygen Concentration - - Weight 88.9 kg (196 lb) 02/23/2024 9:51 AM AIR TECHNICIAN Height - - Body Mass Index 26.26 2024 12:58 PM AIR TECHNICIAN documented in this encounter Progress Notes * [...] pain that requires changes in pain management. TECHNICIAN documented in this encounter Plan of Treatment Not on file documented as of this encounter Visit Diagnoses Not on filedocumented in this encounter Care Teams Clinical Support Specialist Relationship Specialty Start Date End Date iNkky Reyes MD [address] [facility] [address] [place] [address] PCP - General Family Practice 12/15/23 [place] [address] [place] [address] [facility] [address] [place] [address] Medical Oncologist/Acetylene Torch Operator Hematology and Oncology 12/15/23 Kwaku Martin MD [address] [place] [address] Consulting Physician Urology 12/15/23 Richard Hargrove MD [address] [place] [address] [address] [place] [address] Radiation Oncologist Radiation Oncology 01/08/24 Adelso Quiñones [place] [address] [address] [facility] [address] [place] [address] Surgeon Urology 01/22/24 documented as of this encounter
--- OUTSIDE RECORDS SUMMARY | 2024-04-12 17:04 | XMS_ITS | Encounter Summary ---
Author Organization [facility] Healthcare Address [address] [place] [address] Care Team Providers Care Pickling Grader Name Role Phone Nikky Reyes MD Primary Care Provider Venkat Vivar DO Unavailable [phone] Kwaku Martin MD Unavailable [phone] Richard Hargrove MD Unavailable [phone] Adelso Quiñones MD Unavailable [phone] Encounter Details Date Type Department Care Team (Late st Contact Info) Description 02/20/2024 9:30 AM PRECISION OPTICAL GOODS WORKER Treatment [facility] Medical Office Building 2 Radiation Oncology [address] [place] [address] Social History Tobacco Use Types Packs/Day Years [...] on file Legal Sex Male 2:03 AM PRECISION OPTICAL GOODS WORKER Gender Identity Not on file Sexual Orientation Not on file Occupation Industry Job Start Date Job End Date Retired Not on file Not on file Not on file documented as of this encounter Plan of Treatment Not on file documented as of this encounter Visit Diagnoses Not on filedocumented in this encounter Care Teams Pickling Grader Relationship Specialty Start Date End Date Nikky Reyes MD [address] [facility] [address] [place] [address] PCP - General Family Practice 12/15/23 [place] [address] [place] [address] MEDICAL ONCOLOGY, [facility] [address] [place] [address] Medical Oncologist/Combination Building Inspector Hematology and Oncology 12/15/23 Kwaku Martin MD [address] [place] [address] Consulting Physician Urology 12/15/23 [place] [address] [place] [address] [address] [place] [address] Radiation Oncologist Radiation Oncology 01/08/24 Adelso Quiñones [place] [address] [place] [address] Surgeon Urology 01/22/24 documented as of this encounter
--- OUTSIDE RECORDS SUMMARY | 2024-04-12 17:04 | XMS_ITS | Encounter Summary ---
Author Organization [facility] Healthcare Address [address] [place] [address] Care Team Providers Care Licensed Nurse Practitioner Name Role Phone Nikky Reyes MD Primary Care Provider Venkat Vivar DO Unavailable [phone] Kwaku Martin MD Unavailable [phone] Richard Hargrove MD Unavailable [phone] Adelso Quiñones MD Unavailable [phone] Reason for Visit * Episode Based Medications (Routine) - Closed Specialty Diagnoses / Procedures Referred By Leatha t Referred To Contact Diagnoses Encounter for person encountering health services Malignant neoplasm of urinary bladder, unspecified site (HCC) Venkat Vivar, [address] [place] [address] Phone: tel: fax: [address] [address] Phone: tel: fax: Referral ID Status Reason Start Date Expiration Date Visits Re quested Visits Authorized [id number] Closed 01/05/2024 03/09/2024 1 70 Encounter Details Date Type Department Care Team ([facility] st Contact Info) Description 02/19/2024 11:00 AM FOREIGN CAR MECHANIC Lab [facility] at [address] [address] Encounter for person encountering health services; Malignant [...] on file Legal Sex Male 2:03 AM FOREIGN CAR MECHANIC Gender Identity Not on file Sexual Orientation Not on file Occupation Industry Job Start Date Job End Date Retired Not on file Not on file Not on file documented as of this encounter Plan of Treatment Not on file documented as of this encounter Procedures Procedure Name Priority Date/Time Associated Diagnosis Comments EGFR Routine 02/19/2024 11:23 AM FOREIGN CAR MECHANIC Encounter for person encountering health services Malignant neoplasm of urinary bladder, unspecified site (HCC) DIFFERENTIAL AUTO Routine 02/19/2024 11: 23 AM FOREIGN CAR MECHANIC Encounter for person encountering health services Malignant neoplasm of urinary bladder, unspecified site (HCC) CBC WITH AUTO DIFFERENTIAL Routine 02/19/2024 11:23 AM FOREIGN CAR MECHANIC Encounter for person encountering health services Malignant neoplasm of urinary bladder, unspecified site (HCC) COMPREHENSIVE METABOLIC PANEL Routine 02/19/2024 11:23 AM FOREIGN CAR MECHANIC Encounter for person encountering health services Malignant neoplasm of urinary bladder, unspecified site (HCC) documented in this encounter Results * eGFR (02/19/2024 11:23 AM FOREIGN CAR MECHANIC) eGFR 89 >=60 mL/min/1. 73 m2 Comment: [...] was last reviewed 2021. Testing performed by: [address] [address] Blood 02/19/2024 11:2 3 AM FOREIGN CAR MECHANIC 02/19/2024 11:26 AM FOREIGN CAR MECHANIC Venkat Vivar DO LAB BLOOD ORDERABLES Final R esult JAIME [facility] [facility] Department [place] [address] * (ABNORMAL) Differential, auto (02/19/2024 11:23 AM FOREIGN CAR MECHANIC) Neutrophil abs 3.9 1.5 - 6.5 K/cumm Comment:Testing performed by : [address] [address] Imm gran abs 0.0 0.0 - 0.1 K/cumm JAIME PINEDA Comment:Testing performed by : [address] [address] Lymphocyte abs 0.6(L) 0.8 - 3.3 K/cumm JAIME PINEDA Comment:Testing performed by : [address] [place] [address] Monocyte abs 0.3 0.2 - 0.8 K/cumm [facility] Comment:Testing performed by : [address] [address] Eosinophil abs 0.2 0.0 - 0.5 K/cumm [facility] Comment:Testing performed by : [address] [address] Basophil abs 0.0 0.0 - 0.1 K/cumm [facility] Comment:Testing performed by : [address] [address] Neutrophil pct 78.4 % [facility] Comment: Interpretive Data Percent cell count reference ranges are not reported, since discordance with absolute values may lead to misinterpretation of CBC data. Current Interpretive Data was last revised on 2017. Testing performed by: [address] [address] Imm gran pct 0.4 % [facility] Comment: Interpretive Data Percent cell count reference ranges are not reported, since discordance with absolute values may lead to misinterpretation of CBC data. Current Interpretive Data was last revised on 2017. Testing performed by: [address] [address] Lymphocyte pct 11.4 % [facility] Comment: Interpretive Data Percent cell count reference ranges are not reported, since discordance with absolute values may lead to misinterpretation of CBC data. Current Interpretive Data was last revised on 2017. Testing performed by: [address] [address] Monocyte pct 6.2 % [facility] Comment: Interpretive Data Percent cell count reference ranges are not reported, since discordance with absolute values may lead to misinterpretation of CBC data. Current Interpretive Data was last revised on 2017. Testing performed by: [address] [address] Eosinophil pct 3.2 % [facility] Comment: Interpretive Data Percent cell count reference ranges are not reported, since discordance with absolute values may lead to misinterpretation of CBC data. Current Interpretive Data was last revised on 2017. Testing performed by: [address] [address] Basophil pct 0.4 % JAIME Comment: Interpretive Data Percent cell count reference ranges are not reported, since discordance with absolute values may lead to misinterpretation of CBC data. Current Interpretive Data was last revised on 2017. Testing performed by: [address] [address] Blood 02/19/2024 11:2 3 AM FOREIGN CAR MECHANIC 02/19/2024 11:26 AM FOREIGN CAR MECHANIC us Venkat Vivar DO LAB BLOOD ORDERABLES Final R esult JAIME [facility] Department [place] [address] * Comprehensive metabolic panel (02/19/2024 11:23 AM FOREIGN CAR MECHANIC) Sodium 141 135 - 145 mmol/L Comment:Testing performed by : [address] [address] Potassium, pl 3.9 3.3 - 4.9 mmol/L JAIME Comment:Testing performed by : [address] [address] Chloride 103 97 - 110 mmol/L JAIME Comment:Testing performed by : [address] [address] CO2 28 22 - 32 mmol/L JAIME Comment:Testing performed by : [address] [address] Anion gap 10 2 - 15 mmol/L JAIME Comment:Testing performed by : [address] [address] BUN 12 6 - 25 mg/dL JAIME Comment:Testing performed by : [address] [address] Creatinine 0.90 0.80 - 1.30 mg/dL JAIME Comment:Testing performed by : [address] [address] Glucose 148 70 - 199 mg/dL JAIME [...] was last revised 2022. Testing performed by: [address] [address] Calcium 8.8 8.5 - 10.3 mg/dL JAIME Comment:Testing performed by : [address] [address] Bilirubin, total 0.6 0.1 - 1.2 mg/dL JAIME Comment:Testing performed by : [address] [address] Protein, pl 6.9 6.5 - 8.5 g/dL JAIME Comment:Testing performed by : [address] [address] Albumin 3.9 3.5 - 5.0 g/dL JAIME Comment:Testing performed by : [address] [address] Alk phos 74 40 - 130 Units/L JAIME Comment:Testing performed by : [address] [address] ALT 15 7 - 55 Units/L JAIME Comment:Testing performed by : [address] [address] AST 15 10 - 50 Units/L JAIME Comment:Testing performed by : [address] [address] Blood 02/19/2024 11:2 3 AM FOREIGN CAR MECHANIC 02/19/2024 11:26 AM FOREIGN CAR MECHANIC Venkat Vivar DO LAB BLOOD ORDERABLES Final R esult [facility] [address] [facility] Department [place] [address] * (ABNORMAL) CBC with auto differential (02/19/2024 11:23 AM FOREIGN CAR MECHANIC) [facility] Signature WBC 5.0 3.8 - 9.9 K/cumm Comment:Testing performed by : [address] [address] Hgb 10.8(L) 13.0 - 17.5 g/dL JAIME Comment:Testing performed by : [address] [address] Hct 31.2(L) 38.9 - 50.3 % JAIME Comment:Testing performed by : [address] [address] Plt 88(L) 150 - 400 K/cumm JAIME Comment:Testing performed by : [address] [address] MPV 9.0(L) 9.1 - 12.3 fL JAIME Comment:Testing performed by : [address] [address] RBC 3.25(L) 4.30 - 5.80 M/cumm JAIME Comment:Testing performed by : [address] [address] MCV 96.0 81.3 - 96.4 fL JAIME Comment:Testing performed by : [address] [address] MCH 33.2 27.1 - 33.3 pg JAIME Comment:Testing performed by : [address] [address] MCHC 34.6 32.3 - 35.7 g/dL JAIME Comment:Testing performed by : [address] [address] RDW CV 14.6 11.1 - 14.9 % JAIME Comment:Testing performed by : [address], [address] RDW SD 49.1(H) 35.7 - 48.1 fL JAIME PINEDA Comment:Testing performed by : [facility], [address] [place] [address]., [address] NRBC abs 0.00 0.00 - 0.01 K/cumm JAIME PINEDA Comment:Testing performed by : [facility], [address] [place] [address]., [address] Blood 02/19/2024 11:2 3 AM FOREIGN CAR MECHANIC 02/19/2024 11:26 AM FOREIGN CAR MECHANIC us Venkat Vivar DO LAB BLOOD ORDERABLES Final R esult JAIME PINEDA [address] [facility] Department [place] [address] documented in this encounter Visit Diagnoses Diagnosis Encounter for person encountering health services Malignant neoplasm of urinary bladder, unspecified site (HCC) documented in this encounter Orders Appointment Requests Count Last Ordered Date Fi rst Ordered Date ONCBCN LAB APPOINTMENT 1 02/19/2024 documented in this encounter Care Teams Licensed Nurse Practitioner Relationship Specialty Start Date End Date Nikky Reyes MD [facility]7 [facility] [place] 2 [place], [place] [id number] PCP - General Family Practice 12/15/23 Venkat Vivar DO [address] [place] [address] MEDICAL ONCOLOGY, [facility] [address], [place] [address] Medical Oncologist/Cook Morning Hematology and Oncology 12/15/23 Kwaku Martin MD [address] [place] [address] Consulting Physician Urology 12/15/23 Richard Hargrove MD [address] [place] [address], [place] [id number] Radiation Oncologist Radiation Oncology 01/08/24 Adelso Quiñones [place] [address] [place] [address] Surgeon Urology 01/22/24 documented as of this encounter
--- OUTSIDE RECORDS SUMMARY | 2024-04-12 17:04 | XMS_ITS | Encounter Summary ---
Author Organization [facility] Address [address] [place] [address] Phone Care Team Providers Care It Security Consulting Director Name Role Phone Nikky Reyes MD Primary Care Provider Venkat Vivar DO Unavailable Kwaku Martin MD Unavailable [phone] Richard Hargrove MD Unavailable [phone] Adelso Quiñones MD Unavailable [phone] Encounter Details Date Type Department Care Team (Late st Contact Info) Description 02/18/2024 Orders Only [facility] Oncology [address] [facility] [address] [place] [address] Venkat Vivar DO 1418 [facility] [address] [place] [address] Social History Tobacco Use Types [...] on file Legal Sex Male 2:[address]OR Gender Identity Not on file Sexual Orientation Not on file Occupation Industry Job Start Date Job End Date Retired Not on file Not on file Not on file documented as of this encounter Plan of Treatment Not on file documented as of this encounter Visit Diagnoses Not on filedocumented in this encounter Care Teams It Security Consulting Director Relationship Specialty Start Date End Date Nikky Reyes MD [address] [facility] [address] [place] [address] [place] [address] PCP - General Family Practice 12/15/23 Venkat Vivar DO [address] [place] [address] [facility] 180 [place] [address] Medical Oncologist/Crop Or Grain Farmer Hematology and Oncology 12/15/23 Kwaku Martin MD [address] [place] [address] Consulting Physician Urology 12/15/23 Richard Hargrove MD [address] [place] [address] 160 [place] [address] Radiation Oncologist Radiation Oncology 01/08/24 Adelso Qu[place]ñones [place] [address] [place] [address] Surgeon Urology 01/22/24 documented as of this encounter
--- OUTSIDE RECORDS SUMMARY | 2024-04-12 17:04 | XMS_ITS | Encounter Summary ---
Author Organization [facility] Healthcare Address [address] [place] [address] Care Team Providers Care Commercial Teller Name Role Phone Nikky Reyes MD Primary Care Provider Venkat Vivar DO Unavailable [phone] Kwaku Martin MD Unavailable [phone] Richard Hargrove MD Unavailable [phone] Adelso Quiñones MD Unavailable [phone] Encounter Details Date Type Department Care Team (Late st Contact Info) Description 02/25/2024 9:30 AM ICE CREAM FREEZER Treatment [facility] Medical Office Building 2 Radiation Oncology [address] [place] [address] Social History Tobacco Use Types Packs/Day Years [...] on file Legal Sex Male 2:03 AM ICE CREAM FREEZER Gender Identity Not on file Sexual Orientation Not on file Occupation Industry Job Start Date Job End Date Retired Not on file Not on file Not on file documented as of this encounter Plan of Treatment Not on file documented as of this encounter Visit Diagnoses Not on filedocumented in this encounter Care Teams Commercial Teller Relationship Specialty Start Date End Date Nikky Reyes MD 3417 [facility] 2 [place], [place] [id number] PCP - General Family Practice 12/15/23 Venkat Vivar DO 1418 [facility] MEDICAL ONCOLOGY, [facility] 180 [place] [address] Medical Oncologist/Clerical Secretary Hematology and Oncology 12/15/23 Kwaku Martin MD 1 [place] [address] Consulting Physician Urology 12/15/23 Richard Hargrove MD 1418 [facility] [address] [place], [place] [address] Radiation Oncologist Radiation Oncology 01/08/24 Adelso Quiñones [place] [address] [place] [address] Surgeon Urology 01/22/24 documented as of this encounter
--- OUTSIDE RECORDS SUMMARY | 2024-04-12 17:04 | XMS_ITS | Encounter Summary ---
Author Organization [facility] Healthcare Address [address] [place] [address] Care Team Providers Care Export Freight Clerk Name Role Phone Nikky Reyes MD Primary Care Provider Venkat Vivar DO Unavailable [phone] Kwaku Martin MD Unavailable [phone] Richard Hargrove MD Unavailable [phone] Adelso Quiñones MD Unavailable Encounter Details [...] on file Legal Sex Male 2:03 AM QUALITY ASSURANCE LAB TECHNICIAN Gender Identity Not on file Sexual Orientation Not on file Occupation Industry Job Start Date Job End Date Retired Not on file Not on file Not on file documented as of this encounter Plan of Treatment Not on file documented as of this encounter Procedures Procedure Name Priority Date/Time Associated Diagnosis Comments RAD ONC ARIA SESSION SUMMARY 02/16/2024 11:16 AM QUALITY ASSURANCE LAB TECHNICIAN documented in this encounter Results * RAD ONC ARIA SESSION SUMMARY (02/16/2024 11:16 AM QUALITY ASSURANCE LAB TECHNICIAN) Course Name [id number]_ 2023 ARIA Course [...] (cGy) 5,500 ARIA 02/16/2024 11:1 6 AM QUALITY ASSURANCE LAB TECHNICIAN us Not In File Miscellaneous RADIATION ONCOLOGY ORD ERABLES Final Result ARIA documented in this encounter Visit Diagnoses Not on filedocumented in this encounter Care Teams Export Freight Clerk Relationship Specialty Start Date End Date Nikky Reyes MD 34[address] [facility] 2 [place] [address] PCP - General Family Practice 12/15/23 Venkat Vivar DO 1418 [facility] MEDICAL ONCOLOGY, [facility] 180 [place], [place] [address] Medical Oncologist/Butter Wrapper Hematology and Oncology 12/15/23 Kwaku Martin MD [address] [place] [address] Consulting Physician Urology 12/15/23 Richard Hargrove MD 1418 [facility] 160 [place], [place] [phone] Radiation Oncologist Radiation Oncology 01/08/24 Adelso Quiñones [place] [address] [place] [address] Surgeon Urology 01/22/24 documented as of this encounter
--- OUTSIDE RECORDS SUMMARY | 2024-04-12 17:04 | XMS_ITS | Encounter Summary ---
Author Organization [facility] Healthcare Address [address] [place] [address] Care Team Providers Care Extrusion Press Supervisor Name Role Phone Nikky Reyes MD Primary Care Provider Venkat Vivar DO Unavailable [phone] Kwaku Martin MD Unavailable [phone] Richard Hargrove MD Unavailable [phone] Adelso Quiñones MD Unavailable [phone] Encounter Details Date Type Department Care Team (Late st Contact Info) Description 02/24/2024 [facility] Medical Office Building 2 Radiation Oncology [address] [place] [address] Ibeth Jo RN Social History Tobacco [...] on file Legal Sex Male 2:03 AM GREEN CHAIN OPERATOR Gender Identity Not on file Sexual Orientation Not on file Occupation Industry Job Start Date Job End Date Retired Not on file Not on file Not on file documented as of this encounter Miscellaneous Notes * Telephone Encounter - Ibeth Jo RN - 02/24/2024 10:58 AM GREEN CHAIN OPERATOR Patient complains of constipation x 1 week [...] that I spoke with patient's as well. N CHAIN OPERATOR documented in this encounter Plan of Treatment Not on file documented as of this encounter Visit Diagnoses Not on filedocumented in this encounter Care Teams Extrusion Press Supervisor Relationship Specialty Start Date End Date Nikky Reyes MD [facility] [facility] [place] 2 [place] [address] PCP - General Family Practice 12/15/23 Venkat Vivar DO [address] [place] [address] MEDICAL ONCOLOGY, [address] [address] Medical Oncologist/Milking System Installer Hematology and Oncology 12/15/23 Kwaku Martin MD 1 [place] [address] Consulting Physician Urology 12/15/23 Richard Hargrove MD [address] [address] Radiation Oncologist Radiation Oncology 01/08/24 Adelso Quiñones [place] [address] [place] [address] Surgeon Urology 01/22/24 documented as of this encounter
--- OUTSIDE RECORDS SUMMARY | 2024-04-12 17:04 | XMS_ITS | Encounter Summary ---
Author Organization [facility] Healthcare Address [address] [place] [address] Care Team Providers Care Regional Director Of Finance Name Role Phone Nikky Reyes MD Primary Care Provider Venkat Vivar DO Unavailable [phone] Kwaku Martin MD Unavailable [phone] Richard Hargrove MD Unavailable [phone] Adelso Quiñones MD Unavailable [phone] Encounter Details Date Type Department Care Team (Late st Contact Info) Description 02/24/2024 9:30 AM OPERATING TABLE ASSEMBLER Treatment [facility] Medical Office Building 2 Radiation Oncology [address] [place] [address] Social History Tobacco Use Types Packs/Day Years [...] on file Legal Sex Male 2:03 AM OPERATING TABLE ASSEMBLER Gender Identity Not on file Sexual Orientation Not on file Occupation Industry Job Start Date Job End Date Retired Not on file Not on file Not on file documented as of this encounter Plan of Treatment Not on file documented as of this encounter Visit Diagnoses Not on filedocumented in this encounter Care Teams Regional Director Of Finance Relationship Specialty Start Date End Date Nikky Reyes MD [address] [facility] [place] 2 [place], [place] [phone] PCP - General Family Practice 12/15/23 Venkat Vivar DO 1418 [facility] MEDICAL ONCOLOGY, [facility] 180 [place] [address] Medical Oncologist/Fine Craft Artist Hematology and Oncology 12/15/23 Kwaku Martin MD 1 [place] [address] Consulting Physician Urology 12/15/23 Richard Hargrove MD 1418 [facility] 160 [place], [place] [address] Radiation Oncologist Radiation Oncology 01/08/24 Adelso Quiñones [place] [address] [place] [address] Surgeon Urology 01/22/24 documented as of this encounter
--- OUTSIDE RECORDS SUMMARY | 2024-04-12 17:04 | XMS_ITS | Encounter Summary ---
Author Organization [facility] Healthcare Address [address] [place] [address] Care Team Providers Care Gravel Hauler Name Role Phone Nikky Reyes MD Primary Care Provider Venkat Vivar DO Unavailable [phone] Kwaku Martin MD Unavailable [phone] Richard Hargrove MD Unavailable [phone] Adelso Quiñones MD Unavailable [phone] Reason for Visit * Reason Comments Chemotherapy * Episode Based Medications (Routine) - Closed Specialty Diagnoses / Procedures Referred By Leatha mejia Referred To Contact Diagnoses Encounter for person encountering health services Malignant neoplasm of urinary bladder, unspecified site (HCC) Venkat Vivar DO [facility] [address] Phone: tel: fax: [address] [address] Phone: tel: fax: Referral ID Status Reason Start Date Expiration Date Visits Re quested Visits Authorized [id number] Closed 01/05/2024 03/09/2024 1 70 Encounter Details Date Type Department Care Team ([facility] st Contact Info) Description 02/19/2024 11:45 AM VENDOR MANAGEMENT ASSOCIATE Infusion [facility] at [address] [place] [address] Malignant neoplasm of urinary [...] on file Legal Sex Male 2:03 AM VENDOR MANAGEMENT ASSOCIATE Gender Identity Not on file Sexual Orientation Not on file Occupation Industry Job Start Date Job End Date Retired Not on file Not on file Not on file documented as of this encounter Last Filed Vital Signs Vital Sign Reading Time Taken Comments Blood Pressure 113/68 02/19/2024 11:27 AM VENDOR MANAGEMENT ASSOCIATE Pulse 42 02/19/2024 11:27 AM VENDOR MANAGEMENT ASSOCIATE Temperature 36.6 ??C (97.9 ??F) 02/19/2024 1 1:27 AM VENDOR MANAGEMENT ASSOCIATE Respiratory Rate 16 02/19/2024 11:2 5 AM VENDOR MANAGEMENT ASSOCIATE Oxygen Saturation 98% 02/19/2024 11: 27 AM VENDOR MANAGEMENT ASSOCIATE Inhaled Oxygen Concentration - - Weight 90.2 kg (198 lb 12.8 oz) 024 11:27 AM VENDOR MANAGEMENT ASSOCIATE with shoes Height - - Body Mass Index 26.63 2024 12:58 PM VENDOR MANAGEMENT ASSOCIATE documented in this encounter Nursing Notes * Beulah Chavez, RN - 02/19/2024 11:45 AM CST Oncology Nursing Note [facility] Venkat Aranda is a 74 y.o. [...] Ambulatory Accompanied by: Self Discharged To: Home OR MANAGEMENT ASSOCIATE documented in this encounter Plan of Treatment [...] site (HCC) New Bag 02/19/2024 12:56 PM VENDOR MANAGEMENT ASSOCIATE 57 mg 119 mL/hr granisetron (KYTRIL) injection 1 mg 1 mg, intravenous, Once, On Suzanne 02/19/24 at 1230, For 1 dose, IV administration over 30 secondsIndications:Encounter for person encountering health services,Malignant neoplasm of urinary bladder, unspecified site (HCC) Given 02/19/2024 12:03 PM VENDOR MANAGEMENT ASSOCIATE 1 mg documented in this encounter Orders Nursing Count Last Ordered Date First Orde red Date ONCBCN TREATMENT PARAMETERS 1 1 02/19/2024 Appointment Requests Count Last Ordered Date Fi rst Ordered Date ONCBCN RETURN CHEMO 1.5HRS 1 02/19/2024 documented in this encounter Care Teams Gravel Hauler Relationship Specialty Start Date End Date Nikky Reyes MD [address] [place] [address] 2 [place] [address] PCP - General Family Practice 12/15/23 Venkat Vviar DO [address] [place] [address] [facility] 180 [place] [address] Medical Oncologist/Title Insurance Sales Representative Hematology and Oncology 12/15/23 Kwaku Martin MD [address] [place] [address] Consulting Physician Urology 12/15/23 Richard Hargrove MD [address] [place] [address] 160 [place], [place] [id number] Radiation Oncologist Radiation Oncology 01/08/24 Adelso Qu[place]ñones [place] [address] [address] Surgeon Urology 01/22/24 documented as of this encounter
--- OUTSIDE RECORDS SUMMARY | 2024-04-12 17:04 | XMS_ITS | Encounter Summary ---
Author Organization [facility] Healthcare Address [address] [place] [address] Care Team Providers Care Kettle Coordinator Name Role Phone Nikky Reyes MD Primary Care Provider Venkat Vivar DO Unavailable [phone] Kwaku Martin MD Unavailable [phone] Richard Hargrove MD Unavailable [phone] Adelso Quiñones MD Unavailable [phone] Encounter Details Date Type Department Care [...] on file Legal Sex Male 2:03 AM PAPER GRADER Gender Identity Not on file Sexual Orientation Not on file Occupation Industry Job Start Date Job End Date Retired Not on file Not on file Not on file documented as of this encounter Plan of Treatment Not on file documented as of this encounter Procedures Procedure Name Priority Date/Time Associated Diagnosis Comments RAD ONC ARIA SESSION SUMMARY 02/17/2024 9:40 AM PAPER GRADER documented in this encounter Results * RAD ONC ARIA SESSION SUMMARY (02/17/2024 9:40 AM PAPER GRADER) Course Name [email or web address]_ 2023 ARIA Course Plan Date 01/22/2024 3:44 PM ARIA Elapsed Days 15 ARIA Treatment Start Date 2024 ARIA Treatment Site BLADDER ARIA Dose Given To Date (cGy) 3,300 ARIA Session Dosage Given (cGy) 275 ARIA Plan ID BLADDER ARIA Fractions Treated 12 ARIA Prescribed Dose Per Fraction (cGy) 275 ARIA Prescribed Total Dose (cGy) 5,500 ARIA 02/17/2024 9:40 AM PAPER GRADER us Not In File Miscellaneous RADIATION ONCOLOGY ORD ERABLES Final Result ARIA documented in this encounter Visit Diagnoses Not on filedocumented in this encounter Care Teams Kettle Coordinator Relationship Specialty Start Date End Date Nikky Reyes MD [facility] [facility] 2 [place] [address] PCP - General Family Practice 12/15/23 Venkat Vivar DO 1418 [facility] MEDICAL ONCOLOGY, [facility] [address] [place], [place] [id number] Medical Oncologist/Gear Tester Hematology and Oncology 12/15/23 Kwaku Martin MD [address] [place] [address] Consulting Physician Urology 12/15/23 Richard Hargrove MD 1418 [facility] [address] [place], [place] [id number] Radiation Oncologist Radiation Oncology 01/08/24 Adelso Quiñones [place] [address] [place] [address] Surgeon Urology 01/22/24 documented as of this encounter
--- OUTSIDE RECORDS SUMMARY | 2024-04-12 17:04 | XMS_ITS | Encounter Summary ---
Author Organization [facility] Healthcare Address [address] [place] [address] Care Team Providers Care Mechanic Foreman Name Role Phone Nikky Reyes MD Primary Care Provider Venkat Vivar DO Unavailable [phone] Kwaku Martin MD Unavailable [phone] Richard Hargrove MD Unavailable [phone] Adelso Quiñones MD Unavailable [phone] Encounter Details Date Type Department Care Team (Late st Contact Info) Description 02/23/2024 9:30 AM SOFT SUGAR SUPERVISOR Treatment [facility] Medical Office Building 2 Radiation Oncology [address] [place] [address] Social History Tobacco Use Types Packs/Day Years [...] on file Legal Sex Male 2:03 AM SOFT SUGAR SUPERVISOR Gender Identity Not on file Sexual Orientation Not on file Occupation Industry Job Start Date Job End Date Retired Not on file Not on file Not on file documented as of this encounter Progress Notes * Azalia Valentine - 02/23/2024 9:30 AM CST This tool salvage worker provided spiritually supportive care to pt during treatment this day. Pt expressed appreciation. SUGAR SUPERVISOR documented in this encounter Plan of Treatment Not on file documented as of this encounter Visit Diagnoses Not on filedocumented in this encounter Care Teams Mechanic Foreman Relationship Specialty Start Date End Date Nikky Reyes MD [address] [facility] 2 [place] [address] PCP - General Family Practice 12/15/23 [place] [address] [place] [address] MEDICAL ONCOLOGY, [facility] [address] [place] [address] Medical Oncologist/Industrial Manufacturing Technician Hematology and Oncology 12/15/23 Kwaku Martin MD 1 [place] [address] Consulting Physician Urology 12/15/23 Richard Hargrove MD [address] [place] [address] [address] [place] [address] Radiation Oncologist Radiation Oncology 01/08/24 Adelso Quiñones [place] [address] [address] Surgeon Urology 01/22/24 documented as of this encounter
--- OUTSIDE RECORDS SUMMARY | 2024-04-12 17:04 | XMS_ITS | Encounter Summary ---
Author Organization [facility] Healthcare Address [address] [place] [address] Care Team Providers Care Machinist General Name Role Phone Nikky Reyes MD Primary Care Provider Venkat Vivar DO Unavailable [phone] Kwaku Martin MD Unavailable [phone] Richard Hargrove MD Unavailable [phone] Adelso Quiñones MD Unavailable [phone] Reason for Visit * Episode Based Medications (Routine) - Closed Specialty Diagnoses / Procedures Referred By Leatha t Referred To Contact Diagnoses Encounter for person encountering health services Malignant neoplasm of urinary bladder, unspecified site (HCC) Venkat Vivar, [address] [place] [address] Phone: tel: fax: [address] [address] Phone: tel: fax: Referral ID Status Reason Start Date Expiration Date Visits Re quested Visits Authorized [id number] Closed 01/05/2024 03/09/2024 1 70 Encounter Details Date Type Department Care Team ([facility] st Contact Info) Description 02/23/2024 11:00 AM ACTIVE DIRECTORY ADMINISTRATOR Infusion [facility] at [address] [address] Malignant neoplasm of urinary bladder, [...] on file Legal Sex Male 2:03 AM ACTIVE DIRECTORY ADMINISTRATOR Gender Identity Not on file Sexual Orientation Not on file Occupation Industry Job Start Date Job End Date Retired Not on file Not on file Not on file documented as of this encounter Last Filed Vital Signs Vital Sign Reading Time Taken Comments Blood Pressure 120/64 02/23/2024 11:11 AM ACTIVE DIRECTORY ADMINISTRATOR Pulse 78 02/23/2024 11:11 AM ACTIVE DIRECTORY ADMINISTRATOR Temperature 36.3 ??C (97.3 ??F) 02/23/2024 1 1:11 AM ACTIVE DIRECTORY ADMINISTRATOR Respiratory Rate 16 02/23/2024 11:1 1 AM ACTIVE DIRECTORY ADMINISTRATOR Oxygen Saturation 97% 02/23/2024 11: 11 AM ACTIVE DIRECTORY ADMINISTRATOR Inhaled Oxygen Concentration - - Weight 87.9 kg (193 lb 12.8 oz) 024 11:11 AM ACTIVE DIRECTORY ADMINISTRATOR Height - - Body Mass Index 25.96 2024 12:58 PM ACTIVE DIRECTORY ADMINISTRATOR documented in this encounter Nursing Notes * Haley Gayle RN - 02/23/2024 11:00 AM CST Oncology Nursing Note [facility] Venkat Aranda is a 74 y.o. [...] met treatment parameters Pre blood return: Charlene Aranad tolerated treatment well. Patient was frequently observed [...] Ambulatory Accompanied by: Self Discharged To: Home VE DIRECTORY ADMINISTRATOR documented in this encounter Plan of [...] site (HCC) New Bag 02/23/2024 11:36 AM ACTIVE DIRECTORY ADMINISTRATOR 57 mg 119 mL/hr granisetron (KYTRIL) injection 1 mg 1 mg, intravenous, Once, On 02/23/24 at 1200, For 1 dose, IV administration over 30 secondsIndications:Encounter for person encountering health services,Malignant neoplasm of urinary bladder, unspecified site (HCC) Given 02/23/2024 11:25 AM ACTIVE DIRECTORY ADMINISTRATOR 1 mg documented in this encounter Orders Nursing Count Last Ordered Date First Orde red Date ONCBCN TREATMENT PARAMETERS 1 1 02/23/2024 Appointment Requests Count Last Ordered Date Fi rst Ordered Date ONCBCN RETURN CHEMO 1.5HRS 1 02/23/2024 documented in this encounter Care Teams Machinist General Relationship Specialty Start Date End Date Nikky Reyes MD [facility] [address] [place], [place] [phone] PCP - General Family Practice 12/15/23 Venkat Vivar DO 1418 [facility] MEDICAL ONCOLOGY, [facility] [address] [place] [address] Medical Oncologist/Guide Escort Hematology and Oncology 12/15/23 Kwaku Martin MD 1 [place] [address] Consulting Physician Urology 12/15/23 Richard Hargrove MD 1418 [facility] [address] [place], [place] [address] Radiation Oncologist Radiation Oncology 01/08/24 Adelso Quiñones [place] [address] [place] [address] Surgeon Urology 01/22/24 documented as of this encounter
--- OUTSIDE RECORDS SUMMARY | 2024-04-12 17:04 | XMS_ITS | Encounter Summary ---
Author Organization [facility] Healthcare Address [address] [place] [address] Care Team Providers Care Water Treatment Plant Operator Name Role Phone Nikky Reyes MD Primary Care Provider Venkat Vivar DO Unavailable [phone] Kwaku Martin MD Unavailable [phone] Richard Hargrove MD Unavailable [phone] Adelso Quiñones MD Unavailable [phone] Reason for Visit * Episode Based Medications (Routine) - Closed Specialty Diagnoses / Procedures Referred By Leatha t Referred To Contact Diagnoses Encounter for person encountering health services Malignant neoplasm of urinary bladder, unspecified site (HCC) Venkat Vivar, [address] [place] [address] Phone: tel: fax: [address] [address] Phone: tel: fax: Referral ID Status Reason Start Date Expiration Date Visits Re quested Visits Authorized [id number] Closed 01/05/2024 03/09/2024 1 70 Encounter Details Date Type Department Care Team ([facility] st Contact Info) Description 02/23/2024 10:15 AM PRODUCTION PAINTER Lab [facility] at [address] [address] Encounter for person encountering health services; Malignant [...] on file Legal Sex Male 2:03 AM PRODUCTION PAINTER Gender Identity Not on file Sexual Orientation Not on file Occupation Industry Job Start Date Job End Date Retired Not on file Not on file Not on file documented as of this encounter Plan of Treatment Not on file documented as of this encounter Procedures Procedure Name Priority Date/Time Associated Diagnosis Comments EGFR Routine 02/23/2024 11:02 AM PRODUCTION PAINTER Encounter for person encountering health services Malignant neoplasm of urinary bladder, unspecified site (HCC) DIFFERENTIAL AUTO Routine 02/23/2024 11: 02 AM PRODUCTION PAINTER Encounter for person encountering health services Malignant neoplasm of urinary bladder, unspecified site (HCC) CBC WITH AUTO DIFFERENTIAL Routine 02/23/2024 11:02 AM PRODUCTION PAINTER Encounter for person encountering health services Malignant neoplasm of urinary bladder, unspecified site (HCC) COMPREHENSIVE METABOLIC PANEL Routine 02/23/2024 11:02 AM PRODUCTION PAINTER Encounter for person encountering health services Malignant neoplasm of urinary bladder, unspecified site (HCC) documented in this encounter Results * eGFR (02/23/2024 11:02 AM PRODUCTION PAINTER) eGFR 89 >=60 mL/min/1. 73 m2 Comment: [...] was last reviewed 2021. Testing performed by: [address] [address] Blood 02/23/2024 11:0 2 AM PRODUCTION PAINTER 02/23/2024 11:04 AM PRODUCTION PAINTER us Venkat Vivar DO LAB BLOOD ORDERABLES Final R esult JAIME [address] [facility] Department [place] [address] * (ABNORMAL) Differential, auto (02/23/2024 11:02 AM PRODUCTION PAINTER) Neutrophil abs 3.9 1.5 - 6.5 K/cumm Comment:Testing performed by : [address] [address] Imm gran abs 0.0 0.0 - 0.1 K/cumm JAIME PINEDA Comment:Testing performed by : [address] [address] Lymphocyte abs 0.5(L) 0.8 - 3.3 K/cumm CERNER Comment:Testing performed by : [address] [address] Monocyte abs 0.4 0.2 - 0.8 K/cumm CERNER Comment:Testing performed by : [address] [address] Eosinophil abs 0.1 0.0 - 0.5 K/cumm [facility] Comment:Testing performed by : [address], [place]., [address] Basophil abs 0.0 0.0 - 0.1 K/cumm [facility] Comment:Testing performed by : [address] [address] Neutrophil pct 78.5 % [facility] Comment: Interpretive Data Percent cell count reference ranges are not reported, since discordance with absolute values may lead to misinterpretation of CBC data. Current Interpretive Data was last revised on 2017. Testing performed by: [address] [address] Imm gran pct 0.6 % [facility] Comment: Interpretive Data Percent cell count reference ranges are not reported, since discordance with absolute values may lead to misinterpretation of CBC data. Current Interpretive Data was last revised on 2017. Testing performed by: [address] [address] Lymphocyte pct 10.4 % CERNER Comment: Interpretive Data Percent cell count reference ranges are not reported, since discordance with absolute values may lead to misinterpretation of CBC data. Current Interpretive Data was last revised on 2017. Testing performed by: [address] [address] Monocyte pct 7.5 % CERNER Comment: Interpretive Data Percent cell count reference ranges are not reported, since discordance with absolute values may lead to misinterpretation of CBC data. Current Interpretive Data was last revised on 2017. Testing performed by: [address] [address] Eosinophil pct 2.6 % CERNER Comment: Interpretive Data Percent cell count reference ranges are not reported, since discordance with absolute values may lead to misinterpretation of CBC data. Current Interpretive Data was last revised on 2017. Testing performed by: [address] [address] Basophil pct 0.4 % JAIME Comment: Interpretive Data Percent cell count reference ranges are not reported, since discordance with absolute values may lead to misinterpretation of CBC data. Current Interpretive Data was last revised on 2017. Testing performed by: [address] [address] Blood 02/23/2024 11:0 2 AM PRODUCTION PAINTER 02/23/2024 11:04 AM PRODUCTION PAINTER Venkat Vivar DO LAB BLOOD ORDERABLES Final R esult JAIME [facility] Department [place] [address] * Comprehensive metabolic panel (02/23/2024 11:02 AM PRODUCTION PAINTER) Sodium 141 135 - 145 mmol/L Comment:Testing performed by : [address] [address] Potassium, pl 4.1 3.3 - 4.9 mmol/L JAIME Comment:Testing performed by : [address] [address] Chloride 104 97 - 110 mmol/L JAIME Comment:Testing performed by : [address] [address] CO2 27 22 - 32 mmol/L JAIME Comment:Testing performed by : [address] [address] Anion gap 10 2 - 15 mmol/L JAIME Comment:Testing performed by : [address] [address] BUN 17 6 - 25 mg/dL JAIME Comment:Testing performed by : [address] [address] Creatinine 0.90 0.80 - 1.30 mg/dL JAIME Comment:Testing performed by : [address] [address] Glucose 115 70 - 199 mg/dL JAIME [...] was last revised 2022. Testing performed by: [address] [address] Calcium 9.0 8.5 - 10.3 mg/dL JAIME Comment:Testing performed by : [address] [address] Bilirubin, total 0.5 0.1 - 1.2 mg/dL JAIME Comment:Testing performed by : [address] [address] Protein, pl 7.1 6.5 - 8.5 g/dL JAIME Comment:Testing performed by : [address] [address] Albumin 3.8 3.5 - 5.0 g/dL JAIME Comment:Testing performed by : [address] [address] Alk phos 75 40 - 130 Units/L JAIME Comment:Testing performed by : [address] [address] ALT 19 7 - 55 Units/L JAIME Comment:Testing performed by : [address] [address] AST 17 10 - 50 Units/L JAIME Comment:Testing performed by : [address] [address] Blood 02/23/2024 11:0 2 AM PRODUCTION PAINTER 02/23/2024 11:04 AM PRODUCTION PAINTER us Venkat Vivar DO LAB BLOOD ORDERABLES Final R esult JAIME [address] [facility] Department [place] [address] * (ABNORMAL) CBC with auto differential (02/23/2024 11:02 AM PRODUCTION PAINTER) WBC 4.9 3.8 - 9.9 K/cumm Comment:Testing performed by : [address] [address] Hgb 10.6(L) 13.0 - 17.5 g/dL JAIME Comment:Testing performed by : [address] [address] Hct 30.6(L) 38.9 - 50.3 % JAIME Comment:Testing performed by : [address] [address] Plt 146(L) 150 - 400 K/cumm JAIME Comment:Testing performed by : [address] [address] MPV 8.6(L) 9.1 - 12.3 fL JAIME Comment:Testing performed by : [address] [address] RBC 3.18(L) 4.30 - 5.80 M/cumm JAIME Comment:Testing performed by : [address] [address] MCV 96.2 81.3 - 96.4 fL JAIME Comment:Testing performed by : [address] [address] MCH 33.3 27.1 - 33.3 pg JAIME PINEDA Comment:Testing performed by : [address] [address] MCHC 34.6 32.3 - 35.7 g/dL JAIME Comment:Testing performed by : [address] [address] RDW CV 15.0(H) 11.1 - 14.9 % JAIME PINEDA Comment:Testing performed by : [facility], [address] [place] [address]., [address] RDW SD 49.3(H) 35.7 - 48.1 fL JAIME PINEDA Comment:Testing performed by : [facility], [address] [place] [address]., [address] NRBC abs 0.00 0.00 - 0.01 K/cumm JAIME PINEDA Comment:Testing performed by : [facility], [address] [place] [address]., [address] Blood 02/23/2024 11:0 2 AM PRODUCTION PAINTER 02/23/2024 11:04 AM PRODUCTION PAINTER Venkat Vivar DO LAB BLOOD ORDERABLES Final R esult JAIME [address] [facility] Department [place] [address] documented in this encounter Visit Diagnoses Diagnosis Encounter for person encountering health services Malignant neoplasm of urinary bladder, unspecified site (HCC) documented in this encounter Orders Appointment Requests Count Last Ordered Date Fi rst Ordered Date ONCBCN LAB APPOINTMENT 1 02/23/2024 documented in this encounter Care Teams Water Treatment Plant Operator Relationship Specialty Start Date End Date Nikky Reyes MD [facility] [place] [address] [place] [address] PCP - General Family Practice 12/15/23 Venkat Vivar DO [address] [place] [address] MEDICAL ONCOLOGY, [facility] [address] [place] [address] Medical Oncologist/Auto Bench Mechanic Hematology and Oncology 12/15/23 Kwaku Martin MD [address] [place] [address] Consulting Physician Urology 12/15/23 Richard Hargrove MD [address] [address] Radiation Oncologist Radiation Oncology 01/08/24 Adelso Qu[place] [address] [place] [address] Surgeon Urology 01/22/24 documented as of this encounter
--- OUTSIDE RECORDS SUMMARY | 2024-04-12 17:04 | XMS_ITS | Encounter Summary ---
Author Organization [facility] Healthcare Address [address] [place] [address] Care Team Providers Care Appeals Analyst Name Role Phone Nikky Reyes MD Primary Care Provider Venkat Vivar DO Unavailable [phone] Kwaku Martin MD Unavailable [phone] Richard Hargrove MD Unavailable [phone] Adelso Quiñones MD Unavailable [phone] Reason for Visit * Episode Based Medications (Routine) - Closed Specialty Diagnoses / Procedures Referred By Leatha t Referred To Contact Diagnoses Encounter for person encountering health services Malignant neoplasm of urinary bladder, unspecified site (HCC) Venkat Vivar, [address] [place] [address] Phone: tel: fax: [address] [address] Phone: tel: fax: Referral ID Status Reason Start Date Expiration Date Visits Re quested Visits Authorized [id number] Closed 01/05/2024 03/09/2024 1 70 Encounter Details Date Type Department Care Team ([facility] st Contact Info) Description 02/16/2024 7:30 AM EYEGLASS FITTER Lab [facility] at [address] [address] Encounter for person encountering health services; Malignant [...] on file Legal Sex Male 2:03 AM EYEGLASS FITTER Gender Identity Not on file Sexual Orientation Not on file Occupation Industry Job Start Date Job End Date Retired Not on file Not on file Not on file documented as of this encounter Plan of Treatment Not on file documented as of this encounter Procedures Procedure Name Priority Date/Time Associated Diagnosis Comments EGFR Routine 02/16/2024 7:36 AM EYEGLASS FITTER Encounter for person encountering health services Malignant neoplasm of urinary bladder, unspecified site (HCC) DIFFERENTIAL AUTO Routine 02/16/2024 7:3 6 AM EYEGLASS FITTER Encounter for person encountering health services Malignant neoplasm of urinary bladder, unspecified site (HCC) CBC WITH AUTO DIFFERENTIAL Routine 02/16/2024 7:36 AM EYEGLASS FITTER Encounter for person encountering health services Malignant neoplasm of urinary bladder, unspecified site (HCC) COMPREHENSIVE METABOLIC PANEL Routine 02/16/2024 7:36 AM EYEGLASS FITTER Encounter for person encountering health services Malignant neoplasm of urinary bladder, unspecified site (HCC) documented in this encounter Results * eGFR (02/16/2024 7:36 AM EYEGLASS FITTER) eGFR 78 >=60 mL/min/1. 73 m2 Comment: [...] was last reviewed 2021. Testing performed by: [address] [address] Blood 02/16/2024 7:36 AM EYEGLASS FITTER 02/16/2024 7:42 AM EYEGLASS FITTER us Venkat Vivar DO LAB BLOOD ORDERABLES Final R esult [facility] [address] [facility] Department [place] [address] * Differential, auto (02/16/2024 7:36 AM EYEGLASS FITTER) Neutrophil abs 4.2 1.5 - 6.5 K/cumm Comment:Testing performed by : [address] [address] Imm gran abs 0.0 0.0 - 0.1 K/cumm JAIME PINEDA Comment:Testing performed by : [address] [address] Lymphocyte abs 0.9 0.8 - 3.3 K/cumm JAIME Comment:Testing performed by : [address] [address] Monocyte abs 0.3 0.2 - 0.8 K/cumm [facility] Comment:Testing performed by : [address] [address] Eosinophil abs 0.2 0.0 - 0.5 K/cumm [facility] Comment:Testing performed by : [address] [address] Basophil abs 0.0 0.0 - 0.1 K/cumm [facility] Comment:Testing performed by : [address] [address] Neutrophil pct 75.3 % [facility] Comment: Interpretive Data Percent cell count reference ranges are not reported, since discordance with absolute values may lead to misinterpretation of CBC data. Current Interpretive Data was last revised on 2017. Testing performed by: [address] [address] Imm gran pct 0.4 % [facility] Comment: Interpretive Data Percent cell count reference ranges are not reported, since discordance with absolute values may lead to misinterpretation of CBC data. Current Interpretive Data was last revised on 2017. Testing performed by: [address] [address] Lymphocyte pct 16.0 % [facility] Comment: Interpretive Data Percent cell count reference ranges are not reported, since discordance with absolute values may lead to misinterpretation of CBC data. Current Interpretive Data was last revised on 2017. Testing performed by: [address] [address] Monocyte pct 5.2 % [facility] Comment: Interpretive Data Percent cell count reference ranges are not reported, since discordance with absolute values may lead to misinterpretation of CBC data. Current Interpretive Data was last revised on 2017. Testing performed by: [address] [address] Eosinophil pct 2.7 % [facility] Comment: Interpretive Data Percent cell count reference ranges are not reported, since discordance with absolute values may lead to misinterpretation of CBC data. Current Interpretive Data was last revised on 2017. Testing performed by: [address] [address] Basophil pct 0.4 % JAIME Comment: Interpretive Data Percent cell count reference ranges are not reported, since discordance with absolute values may lead to misinterpretation of CBC data. Current Interpretive Data was last revised on 2017. Testing performed by: [address] [address] Blood 02/16/2024 7:36 AM EYEGLASS FITTER 02/16/2024 7:42 AM EYEGLASS FITTER us Venkat Vivar DO LAB BLOOD ORDERABLES Final R esult JAIME [address] [facility] Department [place] [address] * Comprehensive metabolic panel (02/16/2024 7:36 AM EYEGLASS FITTER) Sodium 142 135 - 145 mmol/L Comment:Testing performed by : [address] [address] Potassium, pl 4.2 3.3 - 4.9 mmol/L JAIME Comment:Testing performed by : [address] [address] Chloride 105 97 - 110 mmol/L JAIME Comment:Testing performed by : [address] [address] CO2 28 22 - 32 mmol/L JAIME Comment:Testing performed by : [address] [address] Anion gap 9 2 - 15 mmol/L JAIME Comment:Testing performed by : [address] [address] BUN 15 6 - 25 mg/dL JAIME Comment:Testing performed by : [address] [address] Creatinine 1.00 0.80 - 1.30 mg/dL JAIME Comment:Testing performed by : [address] [address] Glucose 111 70 - 199 mg/dL JAIME [...] was last revised 2022. Testing performed by: [address] [address] Calcium 8.9 8.5 - 10.3 mg/dL JAIME Comment:Testing performed by : [address] [address] Bilirubin, total 0.7 0.1 - 1.2 mg/dL JAIME Comment:Testing performed by : [address] [address] Protein, pl 7.2 6.5 - 8.5 g/dL JAIME Comment:Testing performed by : [address] [address] Albumin 3.9 3.5 - 5.0 g/dL JAIME Comment:Testing performed by : [address] [address] Alk phos 73 40 - 130 Units/L JAIME Comment:Testing performed by : [address] [address] ALT 16 7 - 55 Units/L JAIME Comment:Testing performed by : [address] [address] AST 16 10 - 50 Units/L JAIME Comment:Testing performed by : [address] [address] Blood 02/16/2024 7:36 AM EYEGLASS FITTER 02/16/2024 7:42 AM EYEGLASS FITTER us Venkat Vivar DO LAB BLOOD ORDERABLES Final R esult JAIME [address] [facility] Department [place] [address] * (ABNORMAL) CBC with auto differential (02/16/2024 7:36 AM EYEGLASS FITTER) [facility] Signature WBC 5.6 3.8 - 9.9 K/cumm Comment:Testing performed by : [address] [address] Hgb 11.5(L) 13.0 - 17.5 g/dL JAIME Comment:Testing performed by : [address] [address] Hct 33.3(L) 38.9 - 50.3 % JAIME Comment:Testing performed by : [address] [address] Plt 97(L) 150 - 400 K/cumm JAIME Comment:Testing performed by : [address] [address] MPV 9.1 9.1 - 12.3 fL JAIME Comment:Testing performed by : [address] [address] RBC 3.48(L) 4.30 - 5.80 M/cumm JAIME Comment:Testing performed by : [address] [address] MCV 95.7 81.3 - 96.4 fL JAIME Comment:Testing performed by : [address] [address] MCH 33.0 27.1 - 33.3 pg JAIME Comment:Testing performed by : [address] [address] MCHC 34.5 32.3 - 35.7 g/dL JAIME Comment:Testing performed by : [address], [address] RDW CV 14.3 11.1 - 14.9 % JAIME Comment:Testing performed by : [address] [address] RDW SD 47.7 35.7 - 48.1 fL JAIME Comment:Testing performed by : [facility], [address] [place] [address]., [address] NRBC abs 0.00 0.00 - 0.01 K/cumm JAIME Comment:Testing performed by : [facility], [address] [place] [address]., [address] Blood 02/16/2024 7:36 AM EYEGLASS FITTER 02/16/2024 7:42 AM EYEGLASS FITTER Venkat Vivar DO LAB BLOOD ORDERABLES Final R esult JAIME [address] [facility] Department [place] [address] documented in this encounter Visit Diagnoses Diagnosis Encounter for person encountering health services Malignant neoplasm of urinary bladder, unspecified site (HCC) documented in this encounter Orders Appointment Requests Count Last Ordered Date Fi rst Ordered Date ONCBCN LAB APPOINTMENT 1 02/16/2024 documented in this encounter Care Teams Appeals Analyst Relationship Specialty Start Date End Date Nikky Reyes MD [address] [facility] 2 [place] [address] PCP - General Family Practice 12/15/23 Venkat Vivar DO [address] [place] [address] MEDICAL ONCOLOGY, [facility] [address] [place], [place] [address] Medical Oncologist/Hand Finisher Hematology and Oncology 12/15/23 Kwaku Martin MD [address] [place] [address] Consulting Physician Urology 12/15/23 Richard Hargrove MD [address] [place] [address] 160 [place], [place] [address] Radiation Oncologist Radiation Oncology 01/08/24 Adelso Quiñones [place] [address] [place] [address] Surgeon Urology 01/22/24 documented as of this encounter
--- OUTSIDE RECORDS SUMMARY | 2024-04-12 17:04 | XMS_ITS | Encounter Summary ---
Author Organization [facility] Healthcare Address [address] [place] [address] Care Team Providers Care Track Man Name Role Phone Nikky Reyes MD Primary Care Provider Venkat Vivar DO Unavailable [phone] Kwaku Martin MD Unavailable [phone] Richard Hargrove MD Unavailable [phone] Adelso Quiñones MD Unavailable [phone] Encounter Details Date Type Department Care [...] on file Legal Sex Male 2:03 AM FIRE PROTECTION FABRICATOR Gender Identity Not on file Sexual Orientation Not on file Occupation Industry Job Start Date Job End Date Retired Not on file Not on file Not on file documented as of this encounter Plan of Treatment Not on file documented as of this encounter Procedures Procedure Name Priority Date/Time Associated Diagnosis Comments RAD ONC ARIA SESSION SUMMARY 02/18/2024 9:43 AM FIRE PROTECTION FABRICATOR documented in this encounter Results * RAD ONC ARIA SESSION SUMMARY (02/18/2024 9:43 AM FIRE PROTECTION FABRICATOR) Course Name [email or web address]_ 2023 ARIA Course Plan Date 01/22/2024 3:44 PM ARIA Elapsed Days 16 ARIA Treatment Start Date 2024 ARIA Treatment Site BLADDER ARIA Dose Given To Date (cGy) 3,575 ARIA Session Dosage Given (cGy) 275 ARIA Plan ID BLADDER ARIA Fractions Treated 13 ARIA Prescribed Dose Per Fraction (cGy) 275 ARIA Prescribed Total Dose (cGy) 5,500 ARIA 02/18/2024 9:43 AM FIRE PROTECTION FABRICATOR us Not In File Miscellaneous RADIATION ONCOLOGY ORD ERABLES Final Result ARIA documented in this encounter Visit Diagnoses Not on filedocumented in this encounter Care Teams Track Man Relationship Specialty Start Date End Date Nikky Reyes MD 34[address] [facility] 2 [place] [address] PCP - General Family Practice 12/15/23 Venkat Vivar DO 1418 [facility], [facility] 180 [place], [place] [id number] Medical Oncologist/Quartz Cutter Hematology and Oncology 12/15/23 Kwaku Martin MD [address] [place] [address] Consulting Physician Urology 12/15/23 Richard Hargrove MD 1418 [facility] 160 [place], [place] [address] Radiation Oncologist Radiation Oncology 01/08/24 Adelso Quiñones [place] [address] [place] [address] Surgeon Urology 01/22/24 documented as of this encounter
--- OUTSIDE RECORDS SUMMARY | 2024-04-12 17:04 | XMS_ITS | Encounter Summary ---
Author Organization [facility] Healthcare Address [address] [place] [address] Care Team Providers Care Maintenance Team Leader Name Role Phone Nikky Reyes MD Primary Care Provider Venkat Vivar DO Unavailable [phone] Kwaku Martin MD Unavailable [phone] Richard Hargrove MD Unavailable [phone] Adelso Quiñones MD Unavailable [phone] Reason for Visit * Reason Comments Chemotherapy * Episode Based Medications (Routine) - Closed Specialty Diagnoses / Procedures Referred By Leatha mejia Referred To Contact Diagnoses Encounter for person encountering health services Malignant neoplasm of urinary bladder, unspecified site (HCC) Venkat Vivar DO [address] [place] [address] Phone: tel: fax: [address] [address] Phone: tel: fax: Referral ID Status Reason Start Date Expiration Date Visits Re quested Visits Authorized [id number] Closed 01/05/2024 03/09/2024 1 70 Encounter Details Date Type Department Care Team ([facility] st Contact Info) Description 02/16/2024 8:30 AM TEXTILE SLITTING 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 Infusion [facility] at [address] [place] [address] Malignant neoplasm of urinary [...] on file Legal Sex Male 2:03 AM TEXTILE SLITTING 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 Gender Identity Not on file Sexual Orientation Not on file Occupation Industry Job Start Date Job End Date Retired Not on file Not on file Not on file documented as of this encounter Nursing Notes * Antoinette Ramos RN - 02/16/2024 8:30 AM CST Oncology Nursing Note [facility] Venkat Aranda is a 74 y.o. [...] Ambulatory Accompanied by: Self Discharged To: Home ILE SLITTING 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 documented in this encounter Plan [...] site (HCC) New Bag 02/16/2024 9:56 AM TEXTILE SLITTING 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 57 mg 119 mL/hr granisetron (KYTRIL) injection 1 mg 1 mg, intravenous, Once, On Fri02/16/24 at 0945, For 1 dose, IV administration over 30 secondsIndications:Encounter for person encountering health services,Malignant neoplasm of urinary bladder, unspecified site (HCC) Given 02/16/2024 9:12 AM TEXTILE SLITTING 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 1 mg documented in this encounter Orders Nursing Count Last Ordered Date First Orde red Date ONCBCN TREATMENT PARAMETERS 1 1 02/16/2024 Appointment Requests Count Last Ordered Date Fi rst Ordered Date ONCBCN RETURN CHEMO 1.5HRS 1 02/16/2024 documented in this encounter Care Teams Maintenance Team Leader Relationship Specialty Start Date End Date Nikky Reyes MD [facility] [address] [place], [place] [phone] PCP - General Family Practice 12/15/23 Venkat Vivar DO 1418 [facility] MEDICAL ONCOLOGY, [facility] 180 [place] [address] Medical Oncologist/Pin Drafter Hematology and Oncology 12/15/23 Kwaku Martin MD 1 [place] [address] Consulting Physician Urology 12/15/23 Richard Hargrove MD [facility] 160 [place] [address] Radiation Oncologist Radiation Oncology 01/08/24 Adelso Quiñones [place] [address] [place] [address] Surgeon Urology 01/22/24 documented as of this encounter
--- OUTSIDE RECORDS SUMMARY | 2024-04-12 17:04 | XMS_ITS | Encounter Summary ---
Author Organization [facility] Healthcare Address [address] [place] [address] Care Team Providers Care Surgical Asst Name Role Phone Nikky Reyes MD Primary Care Provider Venkat Vivar DO Unavailable [phone] Kwaku Martin MD Unavailable [phone] Richard Hargrove MD Unavailable [phone] Adelso Quiñones MD Unavailable [phone] Encounter Details Date Type Department Care Team (Late st Contact Info) Description 02/18/2024 9:30 AM FIRMWARE DEVELOPER Treatment [facility] Medical Office Building 2 Radiation Oncology [address] [place] [address] Social History Tobacco Use Types Packs/Day Years [...] on file Legal Sex Male 2:03 AM FIRMWARE DEVELOPER Gender Identity Not on file Sexual Orientation Not on file Occupation Industry Job Start Date Job End Date Retired Not on file Not on file Not on file documented as of this encounter Plan of Treatment Not on file documented as of this encounter Visit Diagnoses Not on filedocumented in this encounter Care Teams Surgical Asst Relationship Specialty Start Date End Date Nikky Reyes MD [address] [facility] [address] [place] [address] PCP - General Family Practice 12/15/23 [place] [address] [place] [address] MEDICAL ONCOLOGY, [facility] 180 [place] [address] Medical Oncologist/Facility Security Officer Hematology and Oncology 12/15/23 Kwaku Martin MD [address] [place] [address] Consulting Physician Urology 12/15/23 [place] [address] [place] [address] 160 [place] [address] Radiation Oncologist Radiation Oncology 01/08/24 Adelso Quiñones [place] [address] [place] [address] Surgeon Urology 01/22/24 documented as of this encounter
--- OUTSIDE RECORDS SUMMARY | 2024-04-12 17:04 | XMS_ITS | Encounter Summary ---
Author Organization [facility] Healthcare Address [address] [place] [address] Care Team Providers Care Aviation Electronics Technician Name Role Phone Nikky Reyes MD Primary Care Provider Venkat Vivar DO Unavailable [phone] Kwaku Martin MD Unavailable [phone] Richard Hargrove MD Unavailable [phone] Adelso Quiñones MD Unavailable [phone] Encounter Details Date Type Department Care [...] on file Legal Sex Male 2:03 AM FLUID JET CUTTER OPERATOR Gender Identity Not on file Sexual Orientation Not on file Occupation Industry Job Start Date Job End Date Retired Not on file Not on file Not on file documented as of this encounter Plan of Treatment Not on file documented as of this encounter Procedures Procedure Name Priority Date/Time Associated Diagnosis Comments RAD ONC ARIA SESSION SUMMARY 02/23/2024 9:45 AM FLUID JET CUTTER OPERATOR documented in this encounter Results * RAD ONC ARIA SESSION SUMMARY (02/23/2024 9:45 AM FLUID JET CUTTER OPERATOR) Course Name C1_BLADDER_ 2023 ARIA Course Plan Date 01/22/2024 3:44 PM ARIA Elapsed Days 21 ARIA Treatment Start Date 2024 ARIA Treatment Site BLADDER ARIA Dose Given To Date (cGy) 4,675 ARIA Session Dosage Given (cGy) 275 ARIA Plan ID BLADDER ARIA Fractions Treated 17 ARIA Prescribed Dose Per Fraction (cGy) 275 ARIA Prescribed Total Dose (cGy) 5,500 ARIA 02/23/2024 9:45 AM FLUID JET CUTTER OPERATOR us Not In File Miscellaneous RADIATION ONCOLOGY ORD ERABLES Final Result ARIA documented in this encounter Visit Diagnoses Not on filedocumented in this encounter Care Teams Aviation Electronics Technician Relationship Specialty Start Date End Date Nikky Reyes MD 3417 [facility] 2 [place] [address] PCP - General Family Practice 12/15/23 Venkat Vivar DO 1418 [facility] MEDICAL ONCOLOGY, [facility] 180 [place], [place] [address] Medical Oncologist/Compressor Service Technician Hematology and Oncology 12/15/23 Kwaku Martin MD [address] [place] [address] Consulting Physician Urology 12/15/23 Richard Hargrove MD 1418 [facility] 160 [place], [place] [address] Radiation Oncologist Radiation Oncology 01/08/24 Adelso Quiñones [place] [address] [place] [address] Surgeon Urology 01/22/24 documented as of this encounter
--- OUTSIDE RECORDS SUMMARY | 2024-04-12 17:04 | XMS_ITS | Encounter Summary ---
Author Organization [facility] Address [address] [place] [address] Phone Care Team Providers Care Glaze Carrier Name Role Phone Nikky Reyes MD Primary Care Provider Venkat Vivar DO Unavailable [phone] Kwaku Martin MD Unavailable [phone] Richard Hargrove MD Unavailable [phone] Adelso Quiñones MD Unavailable [phone] Encounter Details Date Type Department Care Team (Late st Contact Info) Description 02/22/2024 Orders Only [facility] Oncology 1418 [facility] [address] [place] [address] Venkat Vivar DO 1418 [facility] [address] [place] [address] Social History Tobacco Use Types [...] on file Legal Sex Male 2:03 AM CLINICAL BIOSTATISTICS DIRECTOR Gender Identity Not on file Sexual Orientation Not on file Occupation Industry Job Start Date Job End Date Retired Not on file Not on file Not on file documented as of this encounter Plan of Treatment Not on file documented as of this encounter Visit Diagnoses Not on filedocumented in this encounter Care Teams Glaze Carrier Relationship Specialty Start Date End Date Nikky Reyes MD 3417 [facility] 2 [place], [place] [phone] PCP - General Family Practice 12/15/23 Venkat Vivar DO 1418 [facility] MEDICAL ONCOLOGY, [facility] 180 [place] [address] Medical Oncologist/Fire Equipment Operator Hematology and Oncology 12/15/23 Kwaku Martin MD 1 [place] [address] Consulting Physician Urology 12/15/23 Richard Hargrove MD 1418 [facility] 160 [place] [address] Radiation Oncologist Radiation Oncology 01/08/24 Adelso Quiñones [place] [address] [facility] [address] [place] [address] Surgeon Urology 01/22/24 documented as of this encounter
--- OUTSIDE RECORDS SUMMARY | 2024-04-12 17:04 | XMS_ITS | Encounter Summary ---
Author Organization [facility] Healthcare Address [address] [place] [address] Care Team Providers Care Cardroom Plastic Card Grader Name Role Phone Nikky Reyes MD Primary Care Provider Venkat Vivar DO Unavailable [phone] Kwaku Martin MD Unavailable [phone] Richard Hargrove MD Unavailable [phone] Adelso Quiñones MD Unavailable [phone] Encounter Details Date Type Department Care Team (Late st Contact Info) Description 02/20/2024 Documentation [facility] Medical Office Building 2 Radiation Oncology [address] [place] [address] Ibeth Jo RN Social History Tobacco Use [...] on file Legal Sex Male 2:03 AM TRIM SETTER HELPER Gender Identity Not on file Sexual [...] able to be seen. Dr. Hargrove aware. SETTER HELPER documented in this encounter Plan of Treatment Not on file documented as of this encounter Visit Diagnoses Not on filedocumented in this encounter Care Teams Cardroom Plastic Card Grader Relationship Specialty Start Date End Date Nikky Reyes MD [facility] [facility] [address] [place] [address] PCP - General Family Practice 12/15/23 Venkat Vivar DO 1418 [facility] MEDICAL ONCOLOGY, [facility] 180 [place] [address] Medical Oncologist/Mixer Operator Hematology and Oncology 12/15/23 Kwaku Martin MD 1 [place] [address] Consulting Physician Urology 12/15/23 Richard Hargrove MD [address] [place] [address] 160 [place], [place] [address] Radiation Oncologist Radiation Oncology 01/08/24 Adelso Qu[place]ñones [place] [address] [address] [place] [address] Surgeon Urology 01/22/24 documented as of this encounter
--- OUTSIDE RECORDS SUMMARY | 2024-04-12 17:04 | XMS_ITS | Encounter Summary ---
Author Organization [facility] Healthcare Address [address] [place] [address] Care Team Providers Care Tattoo Technician Name Role Phone Nikky Reyes MD Primary Care Provider Venkat Vivar DO Unavailable [phone] Kwaku Martin MD Unavailable [phone] Richard Hargrove MD Unavailable [phone] Adelso Quiñones MD Unavailable [phone] Encounter Details Date Type Department Care Team (Late st Contact Info) Description 02/19/2024 9:30 AM PHARMACY SALES REPRESENTATIVE Treatment [facility] Medical Office Building 2 Radiation Oncology [address] [place] [address] Social History Tobacco Use Types Packs/Day Years [...] file Legal Sex Male 2:03 AM PHARMACY SALES REPRESENTATIVE Gender Identity Not on file Sexual Orientation Not on file Occupation Industry Job Start Date Job End Date Retired Not on file Not on file Not on file documented as of this encounter Plan of Treatment Not on file documented as of this encounter Visit Diagnoses Not on filedocumented in this encounter Care Teams Tattoo Technician Relationship Specialty Start Date End Date Nikky Reyes MD [address] [place] [address] PCP - General Family Practice 12/15/23 [place] [address] [place] [address] MEDICAL ONCOLOGY, [facility] [address] [place] [address] Medical Oncologist/Chief Media Officer Hematology and Oncology 12/15/23 Kwaku Martin MD [address] [place] [address] Consulting Physician Urology 12/15/23 [place] [address] [place] [address] [address] [place] [address] Radiation Oncologist Radiation Oncology 01/08/24 Adelso Quiñones [place] [address] [place] [address] Surgeon Urology 01/22/24 documented as of this encounter
--- OUTSIDE RECORDS SUMMARY | 2024-04-12 17:05 | XMS_ITS | Encounter Summary ---
Author Organization [facility] Healthcare Address [address] [place] [address] Care Team Providers Care Printed Circuit Boards Laminator Name Role Phone Nikky Reyes MD Primary Care Provider Venkat Vivar DO Unavailable [phone] Kwaku Martin MD Unavailable [phone] Richard Hargrove MD Unavailable [phone] Adelso Quiñones MD Unavailable [phone] Reason for Visit * Episode Based Medications (Routine) - Closed Specialty Diagnoses / Procedures Referred By Leatha t Referred To Contact Diagnoses Encounter for person encountering health services Malignant neoplasm of urinary bladder, unspecified site (HCC) Venkat Vivar, [address] [place] [address] Phone: tel: fax: [address] [address] Phone: tel: fax: Referral ID Status Reason Start Date Expiration Date Visits Re quested Visits Authorized [id number] Closed 01/05/2024 03/09/2024 1 70 Encounter Details Date Type Department Care Team ([facility] st Contact Info) Description 02/09/2024 2:30 PM BOARD RUNNER Infusion [facility] at [address] [address] Malignant neoplasm of urinary bladder, [...] on file Legal Sex Male 2:03 AM BOARD RUNNER Gender Identity Not on file Sexual Orientation Not on file Occupation Industry Job Start Date Job End Date Retired Not on file Not on file Not on file documented as of this encounter Last Filed Vital Signs Vital Sign Reading Time Taken Comments Blood Pressure 104/65 02/09/2024 1:45 PM BOARD RUNNER Pulse 72 02/09/2024 1:45 PM BOARD RUNNER Temperature 36.6 ??C (97.8 ??F) 02/09/2024 1 :45 PM BOARD RUNNER Respiratory Rate 16 02/09/2024 1:45 PM BOARD RUNNER Oxygen Saturation 97% 02/09/2024 1:4 5 PM BOARD RUNNER Inhaled Oxygen Concentration - - Weight 89.6 kg (197 lb 9.6 oz) 02/09/20 24 1:45 PM BOARD RUNNER with shoes Height - - Body Mass Index 26.47 2024 12:58 PM BOARD RUNNER documented in this encounter Nursing Notes * Lee Ann Julio, ODILON - 02/09/2024 2:30 PM CST Oncology Nursing Note [facility] Venkat Aranda is a 74 y.o. [...] Ambulatory Accompanied by: Self Discharged To: Home D RUNNER documented in this encounter Plan of Treatment [...] site (HCC) New Bag 02/09/2024 2:27 PM BOARD RUNNER 58 mg 117 mL/hr granisetron (KYTRIL) injection 1 mg 1 mg, intravenous, Once, On 02/09/24 at 1430, For 1 dose, IV administration over 30 secondsIndications:Encounter for person encountering health services,Malignant neoplasm of urinary bladder, unspecified site (HCC) Given 02/09/2024 2:03 PM BOARD RUNNER 1 mg documented in this encounter Orders Nursing Count Last Ordered Date First Orde red Date ONCBCN TREATMENT PARAMETERS 1 1 02/09/2024 Appointment Requests Count Last Ordered Date Fi rst Ordered Date ONCBCN RETURN CHEMO 1.5HRS 1 02/09/2024 documented in this encounter Care Teams Printed Circuit Boards Laminator Relationship Specialty Start Date End Date Nikky Reyes MD [address] [facility] 2 [place] [address] PCP - General Family Practice 12/15/23 [place] [address] [place] [address] MEDICAL ONCOLOGY, [facility] 180 [place] [address] Medical Oncologist/Transmission Calibration Engineer Hematology and Oncology 12/15/23 Kwaku Martin MD 1 [place] [address] Consulting Physician Urology 12/15/23 Richard Hargrove MD [address] [place] [address] 160 [place] [address] Radiation Oncologist Radiation Oncology 01/08/24 Adelso Qu[place] [address] [address] [facility] 375 [place] [address] Surgeon Urology 01/22/24 documented as of this encounter
--- OUTSIDE RECORDS SUMMARY | 2024-04-12 17:05 | XMS_ITS | Encounter Summary ---
Author Organization [facility] Healthcare Address [address] [place] [address] Care Team Providers Care Natural Resource Economist Name Role Phone Nikky Reyes MD Primary Care Provider Venkat Vivar DO Unavailable [phone] Kwaku Martin MD Unavailable [phone] Richard Hargrove MD Unavailable [phone] Adelso Quiñones MD Unavailable [phone] Reason for Visit * Reason Comments OTV Encounter Details Date Type Department Care Team ([facility] Contact Info) Description 02/13/2024 OTV [facility] Medical Office Building 2 Radiation Oncology [address] [place] [address] Richard Hargrove MD [address] [place], [place] [id number] Social History Tobacco Use Types Packs/Day Years [...] on file Legal Sex Male 2:03 AM BUSINESS TECHNOLOGY TEACHER Gender Identity Not on file Sexual Orientation Not on file Occupation Industry Job Start Date Job End Date Retired Not on file Not on file Not on file documented as of this encounter Last Filed Vital Signs Vital Sign Reading Time Taken Comments Blood Pressure 114/77 02/13/2024 8:54 AM BUSINESS TECHNOLOGY TEACHER Pulse 70 02/13/2024 8:54 AM BUSINESS TECHNOLOGY TEACHER Temperature - - Respiratory Rate - - Oxygen Saturation 99% 02/13/2024 8:54 AM BUSINESS TECHNOLOGY TEACHER Inhaled Oxygen Concentration - - Weight 89.8 kg (198 lb) 02/13/2024 8:54 AM BUSINESS TECHNOLOGY TEACHER Height - - Body Mass Index 26.53 2024 12:58 PM BUSINESS TECHNOLOGY TEACHER documented in this encounter Progress Notes * [...] pain that requires changes in pain management. NESS TECHNOLOGY TEACHER documented in this encounter Plan of Treatment Not on file documented as of this encounter Visit Diagnoses Not on filedocumented in this encounter Care Teams Natural Resource Economist Relationship Specialty Start Date End Date Nikky Reyes MD [address] [facility] [place] 2 [place] [address] PCP - General Family Practice 12/15/23 [place] [address] [place] [address] MEDICAL ONCOLOGY, [facility] 180 [place] [address] Medical Oncologist/Sales Systems Engineer Hematology and Oncology 12/15/23 Kwaku Martin MD [address] [place] [address] Consulting Physician Urology 12/15/23 Richard Hargrove MD [address] [place] [address] 160 [place], [place] [id number] Radiation Oncologist Radiation Oncology 01/08/24 Adelso Quiñones [place] [address] [address] Surgeon Urology 01/22/24 documented as of this encounter
--- OUTSIDE RECORDS SUMMARY | 2024-04-12 17:05 | XMS_ITS | Encounter Summary ---
Author Organization [facility] Healthcare Address [address] [place] [address] Care Team Providers Care Electrical Appliance Repairer Name Role Phone Nikky Reyes MD Primary Care Provider Venkat Vivar DO Unavailable [phone] Kwaku Martin MD Unavailable [phone] Richard Hargrove MD Unavailable [phone] Adelso Quiñones MD Unavailable [phone] Encounter Details Date Type Department Care Team (Late st Contact Info) Description 02/10/2024 8:30 AM ORDER TO DELIVERY SUPERVISOR [facility] 2 Radiation Oncology [address] [place] [address] Social History Tobacco Use Types Packs/Day Years [...] on file Legal Sex Male 2:03 AM ORDER TO DELIVERY SUPERVISOR Gender Identity Not on file Sexual Orientation Not on file Occupation Industry Job Start Date Job End Date Retired Not on file Not on file Not on file documented as of this encounter Plan of Treatment Not on file documented as of this encounter Visit Diagnoses Not on filedocumented in this encounter Care Teams Electrical Appliance Repairer Relationship Specialty Start Date End Date Nikky Reyes MD [address] [facility] [address] [place] [address] PCP - General Family Practice 12/15/23 [place] [address] [place] [address] MEDICAL ONCOLOGY, [facility] 180 [place] [address] Medical Oncologist/Assistance Specialist Hematology and Oncology 12/15/23 Kwaku Martin MD [address] [place] [address] Consulting Physician Urology 12/15/23 [place] [address] [place] [address] 160 [place] [address] Radiation Oncologist Radiation Oncology 01/08/24 Adelso Quiñones [place] [address] [place] [address] Surgeon Urology 01/22/24 documented as of this encounter
--- OUTSIDE RECORDS SUMMARY | 2024-04-12 17:05 | XMS_ITS | Encounter Summary ---
Author Organization [facility] Address [address] [place] [address] Phone Care Team Providers Care Conveyor Installer Name Role Phone Nikky Reyes MD Primary Care Provider Venkat Vivar DO Unavailable Kwaku Martin MD Unavailable [phone] Richard Hargrove MD Unavailable [phone] Adelso Quiñones MD Unavailable [phone] Reason for Visit * Reason Comments Follow-up Encounter Details Date Type Department Care Team ([facility] st Contact Info) Description 02/16/2024 8:00 AM SIGNS AND DISPLAYS SALES REPRESENTATIVE Office Visit [facility] Oncology [address] [place] [phone] Venkat Vivar DO [address] [place] [address] [place] [address] Malignant neoplasm of urinary bladder, unspecified site [...] on file Legal Sex Male 2:03 AM SIGNS AND DISPLAYS SALES REPRESENTATIVE Gender Identity Not on file Sexual Orientation Not on file Occupation Industry Job Start Date Job End Date Retired Not on file Not on file Not on file documented as of this encounter Last Filed Vital Signs Vital Sign Reading Time Taken Comments Blood Pressure 93/56 02/16/2024 8:00 AM SIGNS AND DISPLAYS SALES REPRESENTATIVE RN notified was dizzy this morning Pulse 77 02/16/2024 8:00 AM SIGNS AND DISPLAYS SALES REPRESENTATIVE Temperature 36.6 ??C (97.9 ??F) 02/16/2024 8 :00 AM SIGNS AND DISPLAYS SALES REPRESENTATIVE Respiratory Rate 18 02/16/2024 8:00 AM SIGNS AND DISPLAYS SALES REPRESENTATIVE Oxygen Saturation 97% 02/16/2024 8:0 0 AM SIGNS AND DISPLAYS SALES REPRESENTATIVE Inhaled Oxygen Concentration - - Weight 88.9 kg (196 lb) 02/16/2024 8:00 AM SIGNS AND DISPLAYS SALES REPRESENTATIVE no shoes Height - - Body Mass Index 26.26 2024 12:58 PM SIGNS AND DISPLAYS SALES REPRESENTATIVE documented in this encounter Plan of Treatment Not on file documented as of this encounter Results * Comprehensive metabolic panel (03/01/2024 10:46 AM SIGNS AND DISPLAYS SALES REPRESENTATIVE) Sodium 138 135 - 145 mmol/L Comment:Testing performed by : [address] [address] Potassium, pl 3.8 3.3 - 4.9 mmol/L JAIME Comment:Testing performed by : [address] [address] Chloride 102 97 - 110 mmol/L JAIME Comment:Testing performed by : [address] [address] CO2 26 22 - 32 mmol/L JAIME Comment:Testing performed by : [address] [address] Anion gap 10 2 - 15 mmol/L JAIME Comment:Testing performed by : [address] [address] BUN 17 6 - 25 mg/dL JAIME Comment:Testing performed by : [address] [place]., [address] Creatinine 0.80 0.80 - 1.30 mg/dL JAIME Comment:Testing performed by : [address] [address] Glucose 119 70 - 199 mg/dL [facility] Comment: Interpretive Data Fasting glucose >/= 126 [...] was last revised 2022. Testing performed by: [address] [address] Calcium 9.1 8.5 - 10.3 mg/dL [facility] Comment:Testing performed by : [address] [address] Bilirubin, total 0.7 0.1 - 1.2 mg/dL [facility] Comment:Testing performed by : [address] [address] Protein, pl 7.3 6.5 - 8.5 g/dL [facility] Comment:Testing performed by : [address] [address] Albumin 3.9 3.5 - 5.0 g/dL [facility] Comment:Testing performed by : [address] [address] Alk phos 76 40 - 130 Units/L [facility] Comment:Testing performed by : [address] [address] ALT 24 7 - 55 Units/L [facility]IME Comment:Testing performed by : [address] [address] AST 17 10 - 50 Units/L [facility] Comment:Testing performed by : [address] [address] Blood 03/01/2024 10:4 6 AM SIGNS AND DISPLAYS SALES REPRESENTATIVE 03/01/2024 10:50 AM SIGNS AND DISPLAYS SALES REPRESENTATIVE Venkat Vivar DO LAB BLOOD ORDERABLES Final R esult JAIME [address] [facility] Department [place] [address] * (ABNORMAL) CBC with auto differential (03/01/2024 10:46 AM SIGNS AND DISPLAYS SALES REPRESENTATIVE) WBC 7.6 3.8 - 9.9 K/cumm Comment:Testing performed by : [address] [address] Hgb 10.8(L) 13.0 - 17.5 g/dL JAIME Comment:Testing performed by : [address] [address] Hct 31.6(L) 38.9 - 50.3 % JAIME Comment:Testing performed by : [address] [address] Plt 267 150 - 400 K/cumm JAIME Comment:Testing performed by : [address] [address] MPV 8.6(L) 9.1 - 12.3 fL [facility] Comment:Testing performed by : [address] [address] RBC 3.23(L) 4.30 - 5.80 M/cumm JAIME Comment:Testing performed by : [address] [address] MCV 97.8(H) 81.3 - 96.4 fL JAIME Comment:Testing performed by : [address] [address] MCH 33.4(H) 27.1 - 33.3 pg JAIME Comment:Testing performed by : [address] [address] MCHC 34.2 32.3 - 35.7 g/dL JA[facility] Comment:Testing performed by : [address] [address] RDW CV 16.7(H) 11.1 - 14.9 % [facility] Comment:Testing performed by : [address] [address] RDW SD 54.2(H) 35.7 - 48.1 fL [facility] Comment:Testing performed by : [address] [address] NRBC abs 0.00 0.00 - 0.01 K/cumm [facility] Comment:Testing performed by : [address] [address] Blood 03/01/2024 10:4 6 AM SIGNS AND DISPLAYS SALES REPRESENTATIVE 03/01/2024 10:50 AM SIGNS AND DISPLAYS SALES REPRESENTATIVE Venkat Vivar DO LAB BLOOD ORDERABLES Final R esult Performing Organization Address City/State/[facility] Co de Phone Number JAIME [address] [facility] Department of Laboratories [place], [place] [id number] * (ABNORMAL) CBC with auto differential (02/23/2024 11:02 AM SIGNS AND DISPLAYS SALES REPRESENTATIVE) Pathologist [facility] WBC 4.9 3.8 - 9.9 K/cumm Comment:Testing performed by : [address] [address] Hgb 10.6(L) 13.0 - 17.5 g/dL [facility] Comment:Testing performed by : [address] [address] Hct 30.6(L) 38.9 - 50.3 % [facility] Comment:Testing performed by : [address] [address] Plt 146(L) 150 - 400 K/cumm JAIME [facility] Comment:Testing performed by : [address] [address] MPV 8.6(L) 9.1 - 12.3 fL [facility] Comment:Testing performed by : [address] [address] RBC 3.18(L) 4.30 - 5.80 M/cumm JAIME Comment:Testing performed by : [address] [address] MCV 96.2 81.3 - 96.4 fL [facility] Comment:Testing performed by : [address] [address] MCH 33.3 27.1 - 33.3 pg JA[facility] Comment:Testing performed by : [address] [address] MCHC 34.6 32.3 - 35.7 g/dL JAIME Comment:Testing performed by : [address] [address] RDW CV 15.0(H) 11.1 - 14.9 % JAIME Comment:Testing performed by : [address] [address] RDW SD 49.3(H) 35.7 - 48.1 fL JAIME Comment:Testing performed by : [address] [address] NRBC abs 0.00 0.00 - 0.01 K/cumm JAIME Comment:Testing performed by : [address] [address] Blood 02/23/2024 11:0 2 AM SIGNS AND DISPLAYS SALES REPRESENTATIVE 02/23/2024 11:04 AM SIGNS AND DISPLAYS SALES REPRESENTATIVE Venkat Vivar DO LAB BLOOD ORDERABLES Final R esult JAIME [address] [facility] Department of Laboratories [place], [place] [id number] * Comprehensive metabolic panel (02/23/2024 11:02 AM SIGNS AND DISPLAYS SALES REPRESENTATIVE) Sodium 141 135 - 145 mmol/L Comment:Testing performed by : [address] [address] Potassium, pl 4.1 3.3 - 4.9 mmol/L JAIME Comment:Testing performed by : [address] [address] Chloride 104 97 - 110 mmol/L JAIME Comment:Testing performed by : [address] [address] CO2 27 22 - 32 mmol/L JAIME Comment:Testing performed by : [address] [address] Anion gap 10 2 - 15 mmol/L JAIME Comment:Testing performed by : [address], [place]., [address] BUN 17 6 - 25 mg/dL JAIME Comment:Testing performed by : [address], [place]., [address] Creatinine 0.90 0.80 - 1.30 mg/dL [facility] Comment:Testing performed by : [address] [address] Glucose 115 70 - 199 mg/dL JAIME [...] was last revised 2022. Testing performed by: [address] [address] Calcium 9.0 8.5 - 10.3 mg/dL [facility] Comment:Testing performed by : [address] [address] Bilirubin, total 0.5 0.1 - 1.2 mg/dL JAIME Comment:Testing performed by : [address] [address] Protein, pl 7.1 6.5 - 8.5 g/dL [facility] Comment:Testing performed by : [address] [address] Albumin 3.8 3.5 - 5.0 g/dL [facility] Comment:Testing performed by : [address] [address] Alk phos 75 40 - 130 Units/L [facility] Comment:Testing performed by : [address] [address] ALT 19 7 - 55 Units/L [facility] Comment:Testing performed by : [address] [address] AST 17 10 - 50 Units/L [facility] Comment:Testing performed by : [address] [address] Blood 02/23/2024 11:0 2 AM SIGNS AND DISPLAYS SALES REPRESENTATIVE 02/23/2024 11:04 AM SIGNS AND DISPLAYS SALES REPRESENTATIVE us Venkat Vivar DO LAB BLOOD ORDERABLES Final R esult JAIME [facility] Department [place] [address] * (ABNORMAL) CBC with auto differential (02/19/2024 11:23 AM SIGNS AND DISPLAYS SALES REPRESENTATIVE) WBC 5.0 3.8 - 9.9 K/cumm Comment:Testing performed by : [address] [address] Hgb 10.8(L) 13.0 - 17.5 g/dL JAIME [facility] Comment:Testing performed by : [address] [address] Hct 31.2(L) 38.9 - 50.3 % JAIME [facility] Comment:Testing performed by : [address] [address] Plt 88(L) 150 - 400 K/cumm JAIME [facility] Comment:Testing performed by : [address] [address] MPV 9.0(L) 9.1 - 12.3 fL JAIME [facility] Comment:Testing performed by : [address] [address] RBC 3.25(L) 4.30 - 5.80 M/cumm JAIME [facility] Comment:Testing performed by : [facility], [address] [place] [address]., [address] MCV 96.0 81.3 - 96.4 fL JAIME [facility] Comment:Testing performed by : [address] [address] MCH 33.2 27.1 - 33.3 pg JAIME [facility] Comment:Testing performed by : [address] [address] MCHC 34.6 32.3 - 35.7 g/dL JAIME Comment:Testing performed by : [address] [address] RDW CV 14.6 11.1 - 14.9 % JAIME Comment:Testing performed by : [address] [address] RDW SD 49.1(H) 35.7 - 48.1 fL JAIME Comment:Testing performed by : [address] [address] NRBC abs 0.00 0.00 - 0.01 K/cumm JAIME Comment:Testing performed by : [address] [address] Blood 02/19/2024 11:2 3 AM SIGNS AND DISPLAYS SALES REPRESENTATIVE 02/19/2024 11:26 AM SIGNS AND DISPLAYS SALES REPRESENTATIVE Venkat Vivar DO LAB BLOOD ORDERABLES Final R esult JAIME [address] [facility] Department of Laboratories [place], [place] [id number] * Comprehensive metabolic panel (02/19/2024 11:23 AM SIGNS AND DISPLAYS SALES REPRESENTATIVE) Sodium 141 135 - 145 mmol/L Comment:Testing performed by : [address] [address] Potassium, pl 3.9 3.3 - 4.9 mmol/L JAIME Comment:Testing performed by : [address], [address] Chloride 103 97 - 110 mmol/L JAIME Comment:Testing performed by : [address] [address] CO2 28 22 - 32 mmol/L JAIME Comment:Testing performed by : [address] [address] Anion gap 10 2 - 15 mmol/L JAIME Comment:Testing performed by : [address] [address] BUN 12 6 - 25 mg/dL JAIME Comment:Testing performed by : [address], [place]., [address] Creatinine 0.90 0.80 - 1.30 mg/dL JAIME Comment:Testing performed by : [address] [address] Glucose 148 70 - 199 mg/dL JAIME [...] was last revised 2022. Testing performed by: [address] [address] Calcium 8.8 8.5 - 10.3 mg/dL JAIME Comment:Testing performed by : [address] [address] Bilirubin, total 0.6 0.1 - 1.2 mg/dL JAIME Comment:Testing performed by : [address] [address] Protein, pl 6.9 6.5 - 8.5 g/dL JAIME Comment:Testing performed by : [address] [address] Albumin 3.9 3.5 - 5.0 g/dL JAIME Comment:Testing performed by : [address] [address] Alk phos 74 40 - 130 Units/L JAIME Comment:Testing performed by : [address] [address] ALT 15 7 - 55 Units/L JAIME Comment:Testing performed by : [address] [address] AST 15 10 - 50 Units/L JAIME Comment:Testing performed by : [address] [address] Blood 02/19/2024 11:2 3 AM SIGNS AND DISPLAYS SALES REPRESENTATIVE 02/19/2024 11:26 AM SIGNS AND DISPLAYS SALES REPRESENTATIVE Venkat Vivar DO LAB BLOOD ORDERABLES Final R esult JAIME [address] [facility] Department of Laboratories [place], [place] [id number] documented in this encounter Visit Diagnoses Diagnosis [...] 04/20/2023 documented in this encounter Care Teams Conveyor Installer Relationship Specialty Start Date End Date Nikky Reyes MD 3417 [facility] [place] 2 [place], [place] [id number] PCP - General Family Practice 12/15/23 Venkat Vivar DO 1418 [facility] MEDICAL ONCOLOGY, [facility] [address] [place] [address] Medical Oncologist/Coring Machine Operator Hematology and Oncology 12/15/23 Kwaku Martin MD 1 [place] [address] Consulting Physician Urology 12/15/23 Richard Hargrove MD [address] [place] [address] [address] [place] [address] Radiation Oncologist Radiation Oncology 01/08/24 Adelso Quiñones [place] [address] [facility] [address] [place] [address] Surgeon Urology 01/22/24 documented as of this encounter
--- OUTSIDE RECORDS SUMMARY | 2024-04-12 17:05 | XMS_ITS | Encounter Summary ---
Author Organization [facility] Healthcare Address [address] [place] [address] Care Team Providers Care Monogram Maker Name Role Phone Nikky Reyes MD Primary Care Provider Venkat Vivar DO Unavailable [phone] Kwaku Martin MD Unavailable [phone] Richard Hargrove MD Unavailable [phone] Adelso Quiñones MD Unavailable [phone] Encounter Details Date Type Department Care [...] on file Legal Sex Male 2:03 AM TANK CARPENTER Gender Identity Not on file Sexual Orientation Not on file Occupation Industry Job Start Date Job End Date Retired Not on file Not on file Not on file documented as of this encounter Plan of Treatment Not on file documented as of this encounter Procedures Procedure Name Priority Date/Time Associated Diagnosis Comments RAD ONC ARIA SESSION SUMMARY 02/05/2024 12:55 PM TANK CARPENTER documented in this encounter Results * RAD ONC ARIA SESSION SUMMARY (02/05/2024 12:55 PM TANK CARPENTER) Course Name [email or web address]_ 2023 ARIA Course Plan Date 01/22/2024 3:44 PM ARIA Elapsed Days 3 ARIA Treatment Start Date 2024 ARIA Treatment Site BLADDER ARIA Dose Given To Date (cGy) 1,100 ARIA Session Dosage Given (cGy) 275 ARIA Plan ID BLADDER ARIA Fractions Treated 4 ARIA Prescribed Dose Per Fraction (cGy) 275 ARIA Prescribed Total Dose (cGy) 5,500 ARIA 02/05/2024 12:5 5 PM TANK CARPENTER us Not In File Miscellaneous RADIATION ONCOLOGY ORD ERABLES Final Result ARIA documented in this encounter Visit Diagnoses Not on filedocumented in this encounter Care Teams Monogram Maker Relationship Specialty Start Date End Date Nikky Reyes MD [address] [facility] 2 [place] [address] PCP - General Family Practice 12/15/23 [place] [address] [place] [address] MEDICAL ONCOLOGY, [facility] 180 [place], [place] [id number] Medical Oncologist/Housekeeping Lead Hematology and Oncology 12/15/23 Kwaku Martin MD [address] [place] [address] Consulting Physician Urology 12/15/23 Richard Hargrove MD 1418 [facility] 160 [place], [place] [id number] Radiation Oncologist Radiation Oncology 01/08/24 Adelso Quiñ[place] [address] [place] [address] Surgeon Urology 01/22/24 documented as of this encounter
--- OUTSIDE RECORDS SUMMARY | 2024-04-12 17:05 | XMS_ITS | Encounter Summary ---
Author Organization [facility] Healthcare Address [address] [place] [address] Care Team Providers Care Mineral Wool Insulation Supervisor Name Role Phone Nikky Reyes MD Primary Care Provider Venkat Vivar DO Unavailable [phone] Kwaku Martin MD Unavailable [phone] Richard Hargrove MD Unavailable [phone] Adelso Quiñones MD Unavailable [phone] Encounter Details Date Type Department Care [...] file Legal Sex Male 2:03 AM MACHINE STITCHER Gender Identity Not on file Sexual Orientation Not on file Occupation Industry Job Start Date Job End Date Retired Not on file Not on file Not on file documented as of this encounter Plan of Treatment Not on file documented as of this encounter Procedures Procedure Name Priority Date/Time Associated Diagnosis Comments RAD ONC ARIA SESSION SUMMARY 02/06/2024 9:41 AM MACHINE STITCHER documented in this encounter Results * RAD ONC ARIA SESSION SUMMARY (02/06/2024 9:41 AM MACHINE STITCHER) Course Name [email or web address]_ 2023 ARIA Course Plan Date 01/22/2024 3:44 PM ARIA Elapsed Days 4 ARIA Treatment Start Date 2024 ARIA Treatment Site BLADDER ARIA Dose Given To Date (cGy) 1,375 ARIA Session Dosage Given (cGy) 275 ARIA Plan ID BLADDER ARIA Fractions Treated 5 ARIA Prescribed Dose Per Fraction (cGy) 275 ARIA Prescribed Total Dose (cGy) 5,500 ARIA 02/06/2024 9:41 AM MACHINE STITCHER us Not In File Miscellaneous RADIATION ONCOLOGY ORD ERABLES Final Result ARIA documented in this encounter Visit Diagnoses Not on filedocumented in this encounter Care Teams Mineral Wool Insulation Supervisor Relationship Specialty Start Date End Date Nikky Reyes MD [facility] 2 [place] [address] PCP - General Family Practice 12/15/23 [place] [address] [place] [address] MEDICAL ONCOLOGY, [facility] 180 [place], [place] [id number] Medical Oncologist/Director Of Development And Marketing Hematology and Oncology 12/15/23 Kwaku Martin MD [address] [place] [address] Consulting Physician Urology 12/15/23 Richard Hargrove MD 1418 [facility] 160 [place], [place] [phone] Radiation Oncologist Radiation Oncology 01/08/24 Adelso Quiñones [place] [address] [place] [address] Surgeon Urology 01/22/24 documented as of this encounter
--- OUTSIDE RECORDS SUMMARY | 2024-04-12 17:05 | XMS_ITS | Encounter Summary ---
Author Organization [facility] Healthcare Address [address] [place] [address] Care Team Providers Care Drafter Automotive Design Name Role Phone Nikky Reyes MD Primary Care Provider Venkat Vivar DO Unavailable [phone] Kwaku Martin MD Unavailable [phone] Richard Hargrove MD Unavailable [phone] Adelso Quiñones MD Unavailable [phone] Encounter Details Date Type Department Care Team (Late st Contact Info) Description 02/11/2024 8:30 AM ASSEMBLER METAL FURNITURE Treatment [facility] Medical Office Building 2 Radiation Oncology [address] [place] [address] Social History Tobacco Use Types Packs/Day Years [...] on file Legal Sex Male 2:03 AM ASSEMBLER METAL FURNITURE Gender Identity Not on file Sexual Orientation Not on file Occupation Industry Job Start Date Job End Date Retired Not on file Not on file Not on file documented as of this encounter Plan of Treatment Not on file documented as of this encounter Visit Diagnoses Not on filedocumented in this encounter Care Teams Drafter Automotive Design Relationship Specialty Start Date End Date Nikky Reyes MD [address] [facility] [address] [place] [address] PCP - General Family Practice 12/15/23 [place] [address] [place] [address] MEDICAL ONCOLOGY, [facility] 180 [place] [address] Medical Oncologist/Credit Director Hematology and Oncology 12/15/23 Kwaku Martin MD [address] [place] [address] Consulting Physician Urology 12/15/23 [place] [address] [place] [address] 160 [place] [address] Radiation Oncologist Radiation Oncology 01/08/24 Adelso Quiñones [place] [address] [place] [address] Surgeon Urology 01/22/24 documented as of this encounter
--- OUTSIDE RECORDS SUMMARY | 2024-04-12 17:05 | XMS_ITS | Encounter Summary ---
Author Organization [facility] Healthcare Address [address] [place] [address] Care Team Providers Care Locomotive Supervisor Name Role Phone Nikky Reyes MD Primary Care Provider Venkat Vivar DO Unavailable [phone] Kwaku Martin MD Unavailable [phone] Richard Hargrove MD Unavailable [phone] Adelso Quiñones MD Unavailable [phone] Encounter Details Date Type Department Care [...] on file Legal Sex Male 2:03 AM MOTOR VEHICLES INSPECTOR Gender Identity Not on file Sexual Orientation Not on file Occupation Industry Job Start Date Job End Date Retired Not on file Not on file Not on file documented as of this encounter Plan of Treatment Not on file documented as of this encounter Procedures Procedure Name Priority Date/Time Associated Diagnosis Comments RAD ONC ARIA SESSION SUMMARY 02/10/2024 8:44 AM MOTOR VEHICLES INSPECTOR documented in this encounter Results * RAD ONC ARIA SESSION SUMMARY (02/10/2024 8:44 AM MOTOR VEHICLES INSPECTOR) Course Name C1_BLADDER_ 2023 ARIA Course Plan Date 01/22/2024 3:44 PM ARIA Elapsed Days 8 ARIA Treatment Start Date 2024 ARIA Treatment Site BLADDER ARIA Dose Given To Date (cGy) 1,925 ARIA Session Dosage Given (cGy) 275 ARIA Plan ID BLADDER ARIA Fractions Treated 7 ARIA Prescribed Dose Per Fraction (cGy) 275 ARIA Prescribed Total Dose (cGy) 5,500 ARIA 02/10/2024 8:44 AM MOTOR VEHICLES INSPECTOR us Not In File Miscellaneous RADIATION ONCOLOGY ORD ERABLES Final Result ARIA documented in this encounter Visit Diagnoses Not on filedocumented in this encounter Care Teams Locomotive Supervisor Relationship Specialty Start Date End Date Nikky Reyes MD 3417 [facility] 2 [place] [address] PCP - General Family Practice 12/15/23 [place] [address] [place] [address] MEDICAL ONCOLOGY, [facility] 180 [place], [place] [phone] Medical Oncologist/Sales Representative Publications Hematology and Oncology 12/15/23 Kwaku Martin MD [address] [place] [address] Consulting Physician Urology 12/15/23 [place] [address] [place] [address] [address] [place], [place] [phone] Radiation Oncologist Radiation Oncology 01/08/24 Adelso Quiñones [place] [address] [place] [address] Surgeon Urology 01/22/24 documented as of this encounter
--- OUTSIDE RECORDS SUMMARY | 2024-04-12 17:05 | XMS_ITS | Encounter Summary ---
Author Organization [facility] Healthcare Address [address] [place] [address] Care Team Providers Care Forest Nursery Supervisor Name Role Phone Nikky Reyes MD Primary Care Provider Venkat Vivar DO Unavailable [phone] Kwaku Martin MD Unavailable [phone] Richard Hargrove MD Unavailable [phone] Adelso Quiñones MD Unavailable [phone] Encounter Details Date Type Department Care Team (Late st Contact Info) Description 02/16/2024 11:30 AM APPLIANCE SALES ASSOCIATE Treatment [facility] Medical Office Building 2 Radiation Oncology [address] [place] [address] Social History Tobacco Use Types Packs/Day Years [...] on file Legal Sex Male 2:03 AM APPLIANCE SALES ASSOCIATE Gender Identity Not on file Sexual Orientation Not on file Occupation Industry Job Start Date Job End Date Retired Not on file Not on file Not on file documented as of this encounter Plan of Treatment Not on file documented as of this encounter Visit Diagnoses Not on filedocumented in this encounter Care Teams Forest Nursery Supervisor Relationship Specialty Start Date End Date Nikky Reyes MD [address] [facility] [address] [place] [address] PCP - General Family Practice 12/15/23 [place] [address] [place] [address] MEDICAL ONCOLOGY, [facility] 180 [place] [address] Medical Oncologist/Process Improvement Consultant Hematology and Oncology 12/15/23 Kwaku Martin MD [address] [place] [address] Consulting Physician Urology 12/15/23 [place] [address] [place] [address] 160 [place] [address] Radiation Oncologist Radiation Oncology 01/08/24 Adelso Quiñones [place] [address] [place] [address] Surgeon Urology 01/22/24 documented as of this encounter
--- OUTSIDE RECORDS SUMMARY | 2024-04-12 17:05 | XMS_ITS | Encounter Summary ---
Author Organization [facility] Healthcare Address [address] [place] [address] Care Team Providers Care Pump And Blower Operator Name Role Phone Nikky Reyes MD Primary Care Provider Venkat Vivar DO Unavailable [phone] Kwaku Martin MD Unavailable [phone] Richard Hargrove MD Unavailable [phone] Adelso Quiñones MD Unavailable [phone] Encounter Details Date Type Department Care Team (Late st Contact Info) Description 02/13/2024 8:30 AM GAMES MANAGER Treatment [facility] Medical Office Building 2 Radiation Oncology [address] [place] [address] Social History Tobacco Use Types Packs/Day Years [...] on file Legal Sex Male 2:03 AM GAMES MANAGER Gender Identity Not on file Sexual Orientation Not on file Occupation Industry Job Start Date Job End Date Retired Not on file Not on file Not on file documented as of this encounter Plan of Treatment Not on file documented as of this encounter Visit Diagnoses Not on filedocumented in this encounter Care Teams Pump And Blower Operator Relationship Specialty Start Date End Date Nikky Reyes MD [address] [facility] [address] [place] [address] PCP - General Family Practice 12/15/23 [place] [address] [place] [address] MEDICAL ONCOLOGY, [facility] 180 [place] [address] Medical Oncologist/Global Sales Executive Hematology and Oncology 12/15/23 Kwaku Martin MD [address] [place] [address] Consulting Physician Urology 12/15/23 [place] [address] [place] [address] 160 [place] [address] Radiation Oncologist Radiation Oncology 01/08/24 Adelso Quiñones [place] [address] [place] [address] Surgeon Urology 01/22/24 documented as of this encounter
--- OUTSIDE RECORDS SUMMARY | 2024-04-12 17:05 | XMS_ITS | Encounter Summary ---
Author Organization [facility] Healthcare Address [address] [place] [address] Care Team Providers Care Electric Sign Assembler Name Role Phone Nikky Reyes MD Primary Care Provider Venkat Vivar DO Unavailable [phone] Kwaku Martin MD Unavailable [phone] Richard Hargrove MD Unavailable [phone] Adelso Quiñones MD Unavailable [phone] Encounter Details Date Type Department Care [...] on file Legal Sex Male 2:03 AM PLASTIC JOINT MAKER Gender Identity Not on file Sexual Orientation Not on file Occupation Industry Job Start Date Job End Date Retired Not on file Not on file Not on file documented as of this encounter Plan of Treatment Not on file documented as of this encounter Procedures Procedure Name Priority Date/Time Associated Diagnosis Comments RAD ONC ARIA SESSION SUMMARY 02/13/2024 8:43 AM PLASTIC JOINT MAKER documented in this encounter Results * RAD ONC ARIA SESSION SUMMARY (02/13/2024 8:43 AM PLASTIC JOINT MAKER) Course Name C1_BLADDER_ 2023 ARIA Course Plan Date 01/22/2024 3:44 PM ARIA Elapsed Days 11 ARIA Treatment Start Date 2024 ARIA Treatment Site BLADDER ARIA Dose Given To Date (cGy) 2,750 ARIA Session Dosage Given (cGy) 275 ARIA Plan ID BLADDER ARIA Fractions Treated 10 ARIA Prescribed Dose Per Fraction (cGy) 275 ARIA Prescribed Total Dose (cGy) 5,500 ARIA 02/13/2024 8:43 AM PLASTIC JOINT MAKER us Not In File Miscellaneous RADIATION ONCOLOGY ORD ERABLES Final Result ARIA documented in this encounter Visit Diagnoses Not on filedocumented in this encounter Care Teams Electric Sign Assembler Relationship Specialty Start Date End Date Nikky Reyes MD [facility]7 [facility] 2 [place] [address] PCP - General Family Practice 12/15/23 [place] [address] [place] [address] MEDICAL ONCOLOGY, [facility] 180 [place], [place] [id number] Medical Oncologist/Purse Seiner Hematology and Oncology 12/15/23 Kwaku Martin MD [address] [place] [address] Consulting Physician Urology 12/15/23 Richard Hargrove MD 1418 [facility] 160 [place], [place] [phone] Radiation Oncologist Radiation Oncology 01/08/24 Adelso Quiñones [place] [address] [place] [address] Surgeon Urology 01/22/24 documented as of this encounter
--- OUTSIDE RECORDS SUMMARY | 2024-04-12 17:05 | XMS_ITS | Encounter Summary ---
Author Organization [facility] Healthcare Address [address] [place] [address] Care Team Providers Care Commercial Lines Account Assistant Name Role Phone Nikky Reyes MD Primary Care Provider Venkat Vivar DO Unavailable [phone] Kwaku Martin MD Unavailable [phone] Richard Hargrove MD Unavailable [phone] Adelso Quiñones MD Unavailable [phone] Reason for Visit * Episode Based Medications (Routine) - Closed Specialty Diagnoses / Procedures Referred By Leatha t Referred To Contact Diagnoses Encounter for person encountering health services Malignant neoplasm of urinary bladder, unspecified site (HCC) Venkat Vivar, [address] [place] [address] Phone: tel: fax: [address] [address] Phone: tel: fax: Referral ID Status Reason Start Date Expiration Date Visits Re quested Visits Authorized [id number] Closed 01/05/2024 03/09/2024 1 70 Encounter Details Date Type Department Care Team ([facility] st Contact Info) Description 02/12/2024 1:15 PM PIANO TEACHER Lab [facility] at [address] [address] Encounter for person encountering health services; Malignant [...] on file Legal Sex Male 2:03 AM PIANO TEACHER Gender Identity Not on file Sexual Orientation Not on file Occupation Industry Job Start Date Job End Date Retired Not on file Not on file Not on file documented as of this encounter Plan of Treatment Not on file documented as of this encounter Procedures Procedure Name Priority Date/Time Associated Diagnosis Comments EGFR Routine 02/12/2024 1:17 PM PIANO TEACHER Encounter for person encountering health services Malignant neoplasm of urinary bladder, unspecified site (HCC) DIFFERENTIAL AUTO Routine 02/12/2024 1:1 7 PM PIANO TEACHER Encounter for person encountering health services Malignant neoplasm of urinary bladder, unspecified site (HCC) CBC WITH AUTO DIFFERENTIAL Routine 02/12/2024 1:17 PM PIANO TEACHER Encounter for person encountering health services Malignant neoplasm of urinary bladder, unspecified site (HCC) COMPREHENSIVE METABOLIC PANEL Routine 02/12/2024 1:17 PM PIANO TEACHER Encounter for person encountering health services Malignant neoplasm of urinary bladder, unspecified site (HCC) documented in this encounter Results * eGFR (02/12/2024 1:17 PM PIANO TEACHER) eGFR >90 >=60 mL/min/1. 73 m2 Comment: [...] was last reviewed 2021. Testing performed by: [address] [address] Blood 02/12/2024 1:17 PM PIANO TEACHER 02/12/2024 1:24 PM PIANO TEACHER us Venkat Vivar DO LAB BLOOD ORDERABLES Final R esult [facility] [address] [facility] Department [place] [address] * Differential, auto (02/12/2024 1:17 PM PIANO TEACHER) Neutrophil abs 3.9 1.5 - 6.5 K/cumm Comment:Testing performed by : [address] [address] Imm gran abs 0.0 0.0 - 0.1 K/cumm [facility] Comment:Testing performed by : [address] [address] Lymphocyte abs 1.1 0.8 - 3.3 K/cumm JAIME Comment:Testing performed by : [address] [address] Monocyte abs 0.3 0.2 - 0.8 K/cumm [facility] Comment:Testing performed by : [address] [address] Eosinophil abs 0.2 0.0 - 0.5 K/cumm [facility] Comment:Testing performed by : [address] [address] Basophil abs 0.0 0.0 - 0.1 K/cumm [facility] Comment:Testing performed by : [address] [address] Neutrophil pct 69.9 % [facility] Comment: Interpretive Data Percent cell count reference ranges are not reported, since discordance with absolute values may lead to misinterpretation of CBC data. Current Interpretive Data was last revised on 2017. Testing performed by: [address] [address] Imm gran pct 0.7 % [facility] Comment: Interpretive Data Percent cell count reference ranges are not reported, since discordance with absolute values may lead to misinterpretation of CBC data. Current Interpretive Data was last revised on 2017. Testing performed by: [address] [address] Lymphocyte pct 20.5 % [facility] Comment: Interpretive Data Percent cell count reference ranges are not reported, since discordance with absolute values may lead to misinterpretation of CBC data. Current Interpretive Data was last revised on 2017. Testing performed by: [address] [address] Monocyte pct 5.8 % [facility] Comment: Interpretive Data Percent cell count reference ranges are not reported, since discordance with absolute values may lead to misinterpretation of CBC data. Current Interpretive Data was last revised on 2017. Testing performed by: [address] [address] Eosinophil pct 2.7 % [facility] Comment: Interpretive Data Percent cell count reference ranges are not reported, since discordance with absolute values may lead to misinterpretation of CBC data. Current Interpretive Data was last revised on 2017. Testing performed by: [address] [address] Basophil pct 0.4 % JAIME Comment: Interpretive Data Percent cell count reference ranges are not reported, since discordance with absolute values may lead to misinterpretation of CBC data. Current Interpretive Data was last revised on 2017. Testing performed by: [address] [address] Blood 02/12/2024 1:17 PM PIANO TEACHER 02/12/2024 1:24 PM PIANO TEACHER us Venkat Vivar DO LAB BLOOD ORDERABLES Final R esult JAIME [address] [facility] Department [place] [address] * Comprehensive metabolic panel (02/12/2024 1:17 PM PIANO TEACHER) Sodium 138 135 - 145 mmol/L Comment:Testing performed by : [address] [address] Potassium, pl 4.6 3.3 - 4.9 mmol/L JAIME Comment:Testing performed by : [address] [address] Chloride 103 97 - 110 mmol/L JAIME Comment:Testing performed by : [address] [address] CO2 28 22 - 32 mmol/L JAIME Comment:Testing performed by : [address] [address] Anion gap 7 2 - 15 mmol/L JAIME Comment:Testing performed by : [address] [address] BUN 17 6 - 25 mg/dL JAIME Comment:Testing performed by : [address] [address] Creatinine 0.80 0.80 - 1.30 mg/dL JAIME Comment:Testing performed by : [address] [address] Glucose 98 70 - 199 mg/dL JAIME [...] was last revised 2022. Testing performed by: [address] [address] Calcium 8.9 8.5 - 10.3 mg/dL JAIME Comment:Testing performed by : [address] [address] Bilirubin, total 0.5 0.1 - 1.2 mg/dL JAIME Comment:Testing performed by : [address] [address] Protein, pl 7.0 6.5 - 8.5 g/dL JAIME Comment:Testing performed by : [address] [address] Albumin 3.9 3.5 - 5.0 g/dL JAIME Comment:Testing performed by : [address] [address] Alk phos 69 40 - 130 Units/L JAIME Comment:Testing performed by : [address] [address] ALT 14 7 - 55 Units/L JAIME Comment:Testing performed by : [address] [address] AST 14 10 - 50 Units/L JAIME Comment:Testing performed by : [address] [address] Blood 02/12/2024 1:17 PM PIANO TEACHER 02/12/2024 1:24 PM PIANO TEACHER us Venkat Vivar DO LAB BLOOD ORDERABLES Final R esult [facility]IME [address] [facility] Department [place] [address] * (ABNORMAL) CBC with auto differential (02/12/2024 1:17 PM PIANO TEACHER) WBC 5.6 3.8 - 9.9 K/cumm Comment:Testing performed by : [address] [address] Hgb 11.8(L) 13.0 - 17.5 g/dL JAIME Comment:Testing performed by : [address] [address] Hct 34.3(L) 38.9 - 50.3 % JAIME Comment:Testing performed by : [address] [address] Plt 122(L) 150 - 400 K/cumm JAIME Comment:Testing performed by : [address] [address] MPV 8.9(L) 9.1 - 12.3 fL JAIME Comment:Testing performed by : [address] [address] RBC 3.60(L) 4.30 - 5.80 M/cumm JAIME Comment:Testing performed by : [address] [address] MCV 95.3 81.3 - 96.4 fL JAIME Comment:Testing performed by : [address] [address] MCH 32.8 27.1 - 33.3 pg JAIME Comment:Testing performed by : [address] [address] MCHC 34.4 32.3 - 35.7 g/dL JAIME Comment:Testing performed by : [address] [address] RDW CV 14.1 11.1 - 14.9 % JAIME Comment:Testing performed by : [address] [address] RDW SD 48.1 35.7 - 48.1 fL JAIME Comment:Testing performed by : [facility], [address] [place] [address]., [address] NRBC abs 0.00 0.00 - 0.01 K/cumm JAIME Comment:Testing performed by : [facility], [address] [place] [address]., [address] Blood 02/12/2024 1:17 PM PIANO TEACHER 02/12/2024 1:24 PM PIANO TEACHER Venkat Vivar DO LAB BLOOD ORDERABLES Final R esult [facility] [address] [facility] Department [place] [address] documented in this encounter Visit Diagnoses Diagnosis Encounter for person encountering health services Malignant neoplasm of urinary bladder, unspecified site (HCC) documented in this encounter Orders Appointment Requests Count Last Ordered Date Fi rst Ordered Date ONCBCN LAB APPOINTMENT 1 02/12/2024 documented in this encounter Care Teams Commercial Lines Account Assistant Relationship Specialty Start Date End Date Nikky Reyes MD [address] [facility] 2 [place] [address] PCP - General Family Practice 12/15/23 Venkat Vivar DO [address] [place] [address] MEDICAL ONCOLOGY, [facility] 180 [place], [place] [id number] Medical Oncologist/Laboratory Chemist Hematology and Oncology 12/15/23 Kwaku aMrtin MD [address] [place] [address] Consulting Physician Urology 12/15/23 Richard Hargrove MD [address] [place] [address] [address] [place], [place] [address] Radiation Oncologist Radiation Oncology 01/08/24 Adelso Quiñones [place] [address] [place] [address] Surgeon Urology 01/22/24 documented as of this encounter
--- OUTSIDE RECORDS SUMMARY | 2024-04-12 17:05 | XMS_ITS | Encounter Summary ---
Author Organization [facility] Healthcare Address [address] [place] [address] Care Team Providers Care Mineral Mixer Name Role Phone Nikky Reyes MD Primary Care Provider Venkat Vivar DO Unavailable [phone] Kwaku Martin MD Unavailable [phone] Richard Hargrove MD Unavailable [phone] Adelso Quiñones MD Unavailable [phone] Encounter Details Date Type Department Care Team (Late st Contact Info) Description 02/12/2024 12:45 PM HYDROLOGICAL TECHNICAL OFFICER Treatment [facility] Medical Office Building 2 Radiation Oncology [address] [place] [address] Social History Tobacco Use Types Packs/Day Years [...] on file Legal Sex Male 2:03 AM HYDROLOGICAL TECHNICAL OFFICER Gender Identity Not on file Sexual Orientation Not on file Occupation Industry Job Start Date Job End Date Retired Not on file Not on file Not on file documented as of this encounter Plan of Treatment Not on file documented as of this encounter Visit Diagnoses Not on filedocumented in this encounter Care Teams Mineral Mixer Relationship Specialty Start Date End Date Nikky Reyes MD [address] [facility] [address] [place] [address] PCP - General Family Practice 12/15/23 [place] [address] [place] [address] MEDICAL ONCOLOGY, [facility] 180 [place] [address] Medical Oncologist/Offset Plate Preparation Supervisor Hematology and Oncology 12/15/23 Kwaku Martin MD [address] [place] [address] Consulting Physician Urology 12/15/23 [place] [address] [place] [address] 160 [place] [address] Radiation Oncologist Radiation Oncology 01/08/24 Adelso Quiñones [place] [address] [place] [address] Surgeon Urology 01/22/24 documented as of this encounter
--- OUTSIDE RECORDS SUMMARY | 2024-04-12 17:05 | XMS_ITS | Encounter Summary ---
Author Organization [facility] Healthcare Address [address] [place] [address] Care Team Providers Care Longwall Shearer Operator Name Role Phone Nikky Reyes MD Primary Care Provider Venkat Vivar DO Unavailable [phone] Kwaku Martin MD Unavailable [phone] Richard Hargrove MD Unavailable [phone] Adelso Quiñones MD Unavailable [phone] Encounter Details Date Type Department Care [...] on file Legal Sex Male 2:03 AM COOK SPECIALTY FOREIGN FOOD Gender Identity Not on file Sexual Orientation Not on file Occupation Industry Job Start Date Job End Date Retired Not on file Not on file Not on file documented as of this encounter Plan of Treatment Not on file documented as of this encounter Procedures Procedure Name Priority Date/Time Associated Diagnosis Comments RAD ONC ARIA SESSION SUMMARY 02/09/2024 1:16 PM COOK SPECIALTY FOREIGN FOOD documented in this encounter Results * RAD ONC ARIA SESSION SUMMARY (02/09/2024 1:16 PM COOK SPECIALTY FOREIGN FOOD) Course Name [email or web address]_ 2023 ARIA Course Plan Date 01/22/2024 3:44 PM ARIA Elapsed Days 7 ARIA Treatment Start Date 2024 ARIA Treatment Site BLADDER ARIA Dose Given To Date (cGy) 1,650 ARIA Session Dosage Given (cGy) 275 ARIA Plan ID BLADDER ARIA Fractions Treated 6 ARIA Prescribed Dose Per Fraction (cGy) 275 ARIA Prescribed Total Dose (cGy) 5,500 ARIA 02/09/2024 1:16 PM COOK SPECIALTY FOREIGN FOOD us Not In File Miscellaneous RADIATION ONCOLOGY ORD ERABLES Final Result ARIA documented in this encounter Visit Diagnoses Not on filedocumented in this encounter Care Teams Longwall Shearer Operator Relationship Specialty Start Date End Date Nikky Reyes MD [facility] 2 [place] [address] PCP - General Family Practice 12/15/23 [place] [address] [place] [address] MEDICAL ONCOLOGY, [facility] 180 [place], [place] [address] Medical Oncologist/Repair Welder Hematology and Oncology 12/15/23 Kwaku Matrin MD [address] [place] [address] Consulting Physician Urology 12/15/23 Richard Hargrove MD 1418 [facility] 160 [place], [place] [phone] Radiation Oncologist Radiation Oncology 01/08/24 Adelso Quiñones [place] [address] [place] [address] Surgeon Urology 01/22/24 documented as of this encounter
--- OUTSIDE RECORDS SUMMARY | 2024-04-12 17:05 | XMS_ITS | Encounter Summary ---
Author Organization [facility] Healthcare Address [address] [place] [address] Care Team Providers Care Cleater Name Role Phone Nikky Reyes MD Primary Care Provider Venkat Vivar DO Unavailable [phone] Kwaku Martin MD Unavailable [phone] Richard Hargrove MD Unavailable [phone] Adelso Quiñones MD Unavailable [phone] Reason for Visit * Reason Comments OTV Encounter Details Date Type Department Care Team ([facility] st Contact Info) Description 02/06/2024 OTV [facility] Medical Office Building 2 Radiation Oncology [address] [place] [address] Richard Hargrove MD [address] [place], [place] [address] Social History Tobacco Use Types Packs/Day Years [...] on file Legal Sex Male 2:03 AM SUPERVISORY HISTORIAN Gender Identity Not on file Sexual Orientation Not on file Occupation Industry Job Start Date Job End Date Retired Not on file Not on file Not on file documented as of this encounter Last Filed Vital Signs Vital Sign Reading Time Taken Comments Blood Pressure 101/67 02/06/2024 9:51 AM SUPERVISORY HISTORIAN Pulse 66 02/06/2024 9:51 AM SUPERVISORY HISTORIAN Temperature - - Respiratory Rate - - Oxygen Saturation 98% 02/06/2024 9:51 AM SUPERVISORY HISTORIAN Inhaled Oxygen Concentration - - Weight 90.7 kg (200 lb) 02/06/2024 9:51 AM SUPERVISORY HISTORIAN Height - - Body Mass Index 26.8 2024 12:58 PM SUPERVISORY HISTORIAN documented in this encounter Progress Notes * [...] pain that requires changes in pain management. RVISORY HISTORIAN documented in this encounter Plan of Treatment Not on file documented as of this encounter Visit Diagnoses Not on filedocumented in this encounter Care Teams Cleater Relationship Specialty Start Date End Date Nikky Reyes MD [address] [facility] [place] 2 [place] [address] PCP - General Family Practice 12/15/23 Venkat Vivar DO 1418 [facility] MEDICAL ONCOLOGY, [facility] 180 [place] [address] Medical Oncologist/Plant Guard Hematology and Oncology 12/15/23 Kwaku Martin MD 1 [place] [address] Consulting Physician Urology 12/15/23 Richard Hargrove MD [address] [place] [address] 160 [place], [place] [address] Radiation Oncologist Radiation Oncology 01/08/24 Adelso Quiñones [place] [address] [address] Surgeon Urology 01/22/24 documented as of this encounter
--- OUTSIDE RECORDS SUMMARY | 2024-04-12 17:05 | XMS_ITS | Encounter Summary ---
Author Organization [facility] Healthcare Address [address] [place] [address] Care Team Providers Care Sr. Pricing Analyst Name Role Phone Nikky Reyes MD Primary Care Provider Venkat Vivar DO Unavailable [phone] Kwaku Martin MD Unavailable [phone] Richard Hargrove MD Unavailable [phone] Adelso Quiñones MD Unavailable [phone] Reason for Visit * Episode Based Medications (Routine) - Closed Specialty Diagnoses / Procedures Referred By Leatha t Referred To Contact Diagnoses Encounter for person encountering health services Malignant neoplasm of urinary bladder, unspecified site (HCC) Venkat Vivar, [address] [place] [address] Phone: tel: fax: [address] [address] Phone: tel: fax: Referral ID Status Reason Start Date Expiration Date Visits Re quested Visits Authorized [id number] Closed 01/05/2024 03/09/2024 1 70 Encounter Details Date Type Department Care Team ([facility] st Contact Info) Description 02/12/2024 2:15 PM CIRCULAR SHEAR OPERATOR Infusion [facility] at [address] [address] Malignant neoplasm of urinary bladder, [...] on file Legal Sex Male 2:03 AM CIRCULAR SHEAR OPERATOR Gender Identity Not on file Sexual Orientation Not on file Occupation Industry Job Start Date Job End Date Retired Not on file Not on file Not on file documented as of this encounter Last Filed Vital Signs Vital Sign Reading Time Taken Comments Blood Pressure 115/73 02/12/2024 1:52 PM CIRCULAR SHEAR OPERATOR Pulse 66 02/12/2024 1:52 PM CIRCULAR SHEAR OPERATOR Temperature 36.6 ??C (97.9 ??F) 02/12/2024 1:52 PM CS T Respiratory Rate 16 02/12/2024 1:52 PM CIRCULAR SHEAR OPERATOR Oxygen Saturation 97% 02/12/2024 1:52 PM CIRCULAR SHEAR OPERATOR Inhaled Oxygen Concentration - - Weight 90.3 kg (199 lb) 02/12/2024 1:52 PM CIRCULAR SHEAR OPERATOR w ith shoes Height - - Body Mass Index 26.66 2024 12:58 PM CIRCULAR SHEAR OPERATOR documented in this encounter Nursing Notes * Lee Ann Julio, ODILON - 02/12/2024 2:15 PM CST Oncology Nursing Note [facility] Venkat Aranda is a 74 [...] Ambulatory Accompanied by: Self Discharged To: Home ULAR SHEAR OPERATOR documented in this encounter Plan of [...] site (HCC) New Bag 02/12/2024 2:31 PM CIRCULAR SHEAR OPERATOR 57 mg 119 mL/hr granisetron (KYTRIL) injection 1 mg 1 mg, intravenous, Once, On Suzanne 02/12/24 at 1445, For 1 dose, IV administration over 30 secondsIndications:Encounter for person encountering health services,Malignant neoplasm of urinary bladder, unspecified site (HCC) Given 02/12/2024 2:21 PM CIRCULAR SHEAR OPERATOR 1 mg documented in this encounter Orders Nursing Count Last Ordered Date First Orde red Date ONCBCN TREATMENT PARAMETERS 1 1 02/12/2024 Appointment Requests Count Last Ordered Date Fi rst Ordered Date ONCBCN RETURN CHEMO 1.5HRS 1 02/12/2024 documented in this encounter Care Teams Sr. Pricing Analyst Relationship Specialty Start Date End Date Nikky Reyes MD 34[address] [facility] [place] 2 [place] [address] PCP - General Family Practice 12/15/23 Venkat Vivar DO 1418 [facility] MEDICAL ONCOLOGY, [facility] 180 [place] [address] Medical Oncologist/Nail Maker Hematology and Oncology 12/15/23 Kwaku Martin MD 1 [place] [address] Consulting Physician Urology 12/15/23 Richard Hargrove MD [address] [place] [address] 160 [place] [address] Radiation Oncologist Radiation Oncology 01/08/24 Adelso Quiñones [place] [address] [facility] 375 [place] [address] Surgeon Urology 01/22/24 documented as of this encounter
--- OUTSIDE RECORDS SUMMARY | 2024-04-12 17:05 | XMS_ITS | Encounter Summary ---
Author Organization [facility] Healthcare Address [address] [place] [address] Care Team Providers Care Drafting Engineer Name Role Phone Nikky Reyes MD Primary Care Provider Venkat Vivar DO Unavailable [phone] Kwaku Martin MD Unavailable [phone] Richard Hargrove MD Unavailable [phone] Adelso Quiñones MD Unavailable [phone] Encounter Details Date Type Department Care Team (Late st Contact Info) Description 02/09/2024 1:00 PM EXHIBIT CLEANER Treatment [facility] [place] Medical Office Building 2 Radiation Oncology [address] [place] [address] Social History Tobacco Use Types Packs/Day Years [...] on file Legal Sex Male 2:03 AM EXHIBIT CLEANER Gender Identity Not on file Sexual Orientation Not on file Occupation Industry Job Start Date Job End Date Retired Not on file Not on file Not on file documented as of this encounter Plan of Treatment Not on file documented as of this encounter Visit Diagnoses Not on filedocumented in this encounter Care Teams Drafting Engineer Relationship Specialty Start Date End Date Nikky Reyes MD [address] [facility] [address] [place] [address] PCP - General Family Practice 12/15/23 [place] [address] [place] [address] MEDICAL ONCOLOGY, [facility] 180 [place] [address] Medical Oncologist/Track Inspector Hematology and Oncology 12/15/23 Kwaku Martin MD [address] [place] [address] Consulting Physician Urology 12/15/23 [place] [address] [place] [address] 160 [place] [address] Radiation Oncologist Radiation Oncology 01/08/24 Adelso Quiñones [place] [address] [place] [address] Surgeon Urology 01/22/24 documented as of this encounter
--- OUTSIDE RECORDS SUMMARY | 2024-04-12 17:05 | XMS_ITS | Encounter Summary ---
Author Organization [facility] Address [address] [place] [address] Phone Care Team Providers Care Entry Level Electrician Name Role Phone Nikky Reyes MD Primary Care Provider Venkat Vivar DO Unavailable [phone] Kwaku Martin MD Unavailable [phone] Richard Hargrove MD Unavailable [phone] Adelso Quiñones MD Unavailable [phone] Encounter Details Date Type Department Care Team (Late st Contact Info) Description 02/15/2024 Orders Only [facility] Oncology 1418 [facility] [address] [place] [phone] Venkat Vivar DO 1418 [facility] [address] [place] [address] Social History Tobacco Use Types [...] file Legal Sex Male 2:03 AM ELECTRICAL LOGGER Gender Identity Not on file Sexual Orientation Not on file Occupation Industry Job Start Date Job End Date Retired Not on file Not on file Not on file documented as of this encounter Plan of Treatment Not on file documented as of this encounter Visit Diagnoses Not on filedocumented in this encounter Care Teams Entry Level Electrician Relationship Specialty Start Date End Date Nikky Reyes MD [address] [facility] [address] [place] [address] PCP - General Family Practice 12/15/23 Venkat Vivar DO [address] [place] [address] [facility] 180 [place] [address] Medical Oncologist/Autocad Designer Hematology and Oncology 12/15/23 Kwaku Martin MD [address] [place] [address] Consulting Physician Urology 12/15/23 Richard Hargrove MD [address] [place] [address] 160 [place] [address] Radiation Oncologist Radiation Oncology 01/08/24 Adelso Qu[place] [address] [place] [address] Surgeon Urology 01/22/24 documented as of this encounter
--- OUTSIDE RECORDS SUMMARY | 2024-04-12 17:05 | XMS_ITS | Encounter Summary ---
Author Organization [facility] Healthcare Address [address] [place] [address] Care Team Providers Care Pricing Analyst Name Role Phone Nikky Reyes MD Primary Care Provider Venkat Vivar DO Unavailable [phone] Kwaku Martin MD Unavailable [phone] Richard Hargrove MD Unavailable [phone] Adelso Quiñones MD Unavailable [phone] Encounter Details Date Type Department Care Team (Late st Contact Info) Description 02/05/2024 12:45 PM CHIEF OF HARBOR PATROL Treatment [facility] Medical Office Building 2 Radiation Oncology [address] [place] [address] Social History Tobacco Use Types Packs/Day Years [...] on file Legal Sex Male 2:03 AM CHIEF OF HARBOR PATROL Gender Identity Not on file Sexual Orientation Not on file Occupation Industry Job Start Date Job End Date Retired Not on file Not on file Not on file documented as of this encounter Plan of Treatment Not on file documented as of this encounter Visit Diagnoses Not on filedocumented in this encounter Care Teams Pricing Analyst Relationship Specialty Start Date End Date Nikky Reyes MD [address] [facility] [address] [place] [address] PCP - General Family Practice 12/15/23 [place] [address] [place] [address] MEDICAL ONCOLOGY, [facility] [address] [place] [address] Medical Oncologist/Station Installation Supervisor Hematology and Oncology 12/15/23 Kwaku Martin MD [address] [place] [address] Consulting Physician Urology 12/15/23 [place] [address] [place] [address] 160 [place] [address] Radiation Oncologist Radiation Oncology 01/08/24 Adelso Quiñones [place] [address] [place] [address] Surgeon Urology 01/22/24 documented as of this encounter
--- OUTSIDE RECORDS SUMMARY | 2024-04-12 17:05 | XMS_ITS | Encounter Summary ---
Author Organization [facility] Address [address] [place] [address] Phone Care Team Providers Care Boiler House Mechanic Name Role Phone Nikky Reyes MD Primary Care Provider Venkat Vivar DO Unavailable [phone] Kwaku Martin MD Unavailable [phone] Richard Hargrove MD Unavailable [phone] Adelso Quiñones MD Unavailable [phone] Encounter Details Date Type Department Care Team (Late st Contact Info) Description 02/12/2024 Orders Only [facility] Oncology 1418 [facility] [address] [place] [phone] Venkat Vivar DO 1418 [facility] [address] [place] [address] Social History Tobacco Use Types [...] file Legal Sex Male 2:03 AM AUTO SERVICE STATION ATTENDANT Gender Identity Not on file Sexual Orientation Not on file Occupation Industry Job Start Date Job End Date Retired Not on file Not on file Not on file documented as of this encounter Plan of Treatment Not on file documented as of this encounter Visit Diagnoses Not on filedocumented in this encounter Care Teams Boiler House Mechanic Relationship Specialty Start Date End Date Nikky Reyes MD [address] [facility] [address] [place] [address] PCP - General Family Practice 12/15/23 Venkat Vivar DO [address] [place] [address] [facility] 180 [place] [address] Medical Oncologist/Director Of Plant Operations Hematology and Oncology 12/15/23 Kwaku Martin MD [address] [place] [address] Consulting Physician Urology 12/15/23 Richard Hargrove MD [address] [place] [address] 160 [place] [address] Radiation Oncologist Radiation Oncology 01/08/24 Adelso Quiñones [place] [address] [place] [address] Surgeon Urology 01/22/24 documented as of this encounter
--- OUTSIDE RECORDS SUMMARY | 2024-04-12 17:05 | XMS_ITS | Encounter Summary ---
Author Organization [facility] Healthcare Address [address] [place] [address] Care Team Providers Care Doughnut Fryer Name Role Phone Nikky Reyes MD Primary Care Provider Venkat Vivar DO Unavailable [phone] Kwaku Martin MD Unavailable [phone] Richard Hargrove MD Unavailable [phone] Adelso Quiñones MD Unavailable Encounter Details [...] on file Legal Sex Male 2:03 AM CHIP BIN OPERATOR Gender Identity Not on file Sexual Orientation Not on file Occupation Industry Job Start Date Job End Date Retired Not on file Not on file Not on file documented as of this encounter Plan of Treatment Not on file documented as of this encounter Procedures Procedure Name Priority Date/Time Associated Diagnosis Comments RAD ONC ARIA SESSION SUMMARY 02/12/2024 1:05 PM CHIP BIN OPERATOR documented in this encounter Results * RAD ONC ARIA SESSION SUMMARY (02/12/2024 1:05 PM CHIP BIN OPERATOR) Course Name [email or web address]_ 2023 ARIA Course Plan Date 01/22/2024 3:44 PM ARIA Elapsed Days 10 ARIA Treatment Start Date 2024 ARIA Treatment Site BLADDER ARIA Dose Given To Date (cGy) 2,475 ARIA Session Dosage Given (cGy) 275 ARIA Plan ID BLADDER ARIA Fractions Treated 9 ARIA Prescribed Dose Per Fraction (cGy) 275 ARIA Prescribed Total Dose (cGy) 5,500 ARIA 02/12/2024 1:05 PM CHIP BIN OPERATOR us Not In File Miscellaneous RADIATION ONCOLOGY ORD ERABLES Final Result ARIA documented in this encounter Visit Diagnoses Not on filedocumented in this encounter Care Teams Doughnut Fryer Relationship Specialty Start Date End Date Nikky Reyes MD [facility] 2 [place] [address] PCP - General Family Practice 12/15/23 [place] [address] [place] [address] MEDICAL ONCOLOGY, [facility] 180 [place], [place] [address] Medical Oncologist/Generator Switchboard Operator Hematology and Oncology 12/15/23 Kwaku Martin MD [address] [place] [address] Consulting Physician Urology 12/15/23 Richard Hargrove MD 1418 [facility] 160 [place], [place] [address] Radiation Oncologist Radiation Oncology 01/08/24 Adelso Quiñones [place] [address] [place] [address] Surgeon Urology 01/22/24 documented as of this encounter
--- OUTSIDE RECORDS SUMMARY | 2024-04-12 17:05 | XMS_ITS | Encounter Summary ---
Author Organization [facility] Healthcare Address [address] [place] [address] Care Team Providers Care Learning Facilitator Name Role Phone Nikky Reyes MD Primary Care Provider Venkat Vivar DO Unavailable [phone] Kwaku Martin MD Unavailable [phone] Richard Hargrove MD Unavailable [phone] Adelso Quiñones MD Unavailable [phone] Encounter Details Date Type Department Care Team (Late st Contact Info) Description 02/06/2024 9:30 AM SAW EDGE FUSER CIRCULAR Treatment [facility] Medical Office Building 2 Radiation Oncology [address] [place] [address] Social History Tobacco Use Types Packs/Day Years [...] on file Legal Sex Male 2:03 AM SAW EDGE FUSER CIRCULAR Gender Identity Not on file Sexual Orientation Not on file Occupation Industry Job Start Date Job End Date Retired Not on file Not on file Not on file documented as of this encounter Plan of Treatment Not on file documented as of this encounter Visit Diagnoses Not on filedocumented in this encounter Care Teams Learning Facilitator Relationship Specialty Start Date End Date Nikky Reyes MD [address] [facility] [address] [place] [address] PCP - General Family Practice 12/15/23 [place] [address] [place] [address] MEDICAL ONCOLOGY, [facility] [address] [place] [address] Medical Oncologist/Procurement Professional Logistics Hematology and Oncology 12/15/23 Kwaku Martin MD [address] [place] [address] Consulting Physician Urology 12/15/23 [place] [address] [place] [address] 160 [place] [address] Radiation Oncologist Radiation Oncology 01/08/24 Adelso Quiñones [place] [address] [place] [address] Surgeon Urology 01/22/24 documented as of this encounter
--- OUTSIDE RECORDS SUMMARY | 2024-04-12 17:05 | XMS_ITS | Encounter Summary ---
Author Organization [facility] Address [address] [place] [address] Phone Care Team Providers Care Supervisor Volunteer Services Name Role Phone Nikky Reyes MD Primary Care Provider Venkat Vivar DO Unavailable [phone] Kwaku Martin MD Unavailable [phone] Richard Hargrove MD Unavailable [phone] Adelso Quiñones MD Unavailable [phone] Encounter Details Date Type Department Care Team (Late st Contact Info) Description 02/08/2024 Orders Only [facility] Physicians [facility] Oncology [facility]2 [facility] [address] [place] [address] Venkat Vivar DO [address] [address] Social History Tobacco Use Types [...] on file Legal Sex Male 2:03 AM CANCER RESEARCHER Gender Identity Not on file Sexual Orientation Not on file Occupation Industry Job Start Date Job End Date Retired Not on file Not on file Not on file documented as of this encounter Plan of Treatment Not on file documented as of this encounter Visit Diagnoses Not on filedocumented in this encounter Care Teams Supervisor Volunteer Services Relationship Specialty Start Date End Date Nkiky Reyes MD 3417 [facility] [address] [place] [address] PCP - General Family Practice 12/15/23 [place] [address] [place] [address] [facility] 180 [place] [address] Medical Oncologist/Hydramatic Mechanic Hematology and Oncology 12/15/23 Kwaku Martin MD [address] [place] [address] Consulting Physician Urology 12/15/23 Richard Hargrove MD [address] [place] [address] 160 [place] [address] Radiation Oncologist Radiation Oncology 01/08/24 Adelso Quiñones [place] [address] [place] [address] Surgeon Urology 01/22/24 documented as of this encounter
--- OUTSIDE RECORDS SUMMARY | 2024-04-12 17:05 | XMS_ITS | Encounter Summary ---
Author Organization [facility] Healthcare Address [address] [place] [address] Care Team Providers Care Home Decorator Name Role Phone Nikky Reyes MD Primary Care Provider Venkat Vivar DO Unavailable [phone] Kwaku Martin MD Unavailable [phone] Richard Hargrove MD Unavailable [phone] Adelso Quiñones MD Unavailable [phone] Encounter Details Date Type Department Care [...] on file Legal Sex Male 2:03 AM EDUCATIONAL TECHNOLOGY COORDINATOR Gender Identity Not on file Sexual Orientation Not on file Occupation Industry Job Start Date Job End Date Retired Not on file Not on file Not on file documented as of this encounter Plan of Treatment Not on file documented as of this encounter Procedures Procedure Name Priority Date/Time Associated Diagnosis Comments RAD ONC ARIA SESSION SUMMARY 02/11/2024 8:47 AM EDUCATIONAL TECHNOLOGY COORDINATOR documented in this encounter Results * RAD ONC ARIA SESSION SUMMARY (02/11/2024 8:47 AM EDUCATIONAL TECHNOLOGY COORDINATOR) Course Name [email or web address]_ 2023 ARIA Course Plan Date 01/22/2024 3:44 PM ARIA Elapsed Days 9 ARIA Treatment Start Date 2024 ARIA Treatment Site BLADDER ARIA Dose Given To Date (cGy) 2,200 ARIA Session Dosage Given (cGy) 275 ARIA Plan ID BLADDER ARIA Fractions Treated 8 ARIA Prescribed Dose Per Fraction (cGy) 275 ARIA Prescribed Total Dose (cGy) 5,500 ARIA 02/11/2024 8:47 AM EDUCATIONAL TECHNOLOGY COORDINATOR us Not In File Miscellaneous RADIATION ONCOLOGY ORD ERABLES Final Result ARIA documented in this encounter Visit Diagnoses Not on filedocumented in this encounter Care Teams Home Decorator Relationship Specialty Start Date End Date Nikky Reyes MD [facility]7 [facility] 2 [place] [address] PCP - General Family Practice 12/15/23 [place] [address] [place] [address] MEDICAL ONCOLOGY, [facility] [address] [place], [place] [id number] Medical Oncologist/Yarrow Gatherer Hematology and Oncology 12/15/23 Kwaku Martin MD [address] [place] [address] Consulting Physician Urology 12/15/23 Richard Hargrove MD 1418 [facility] [address] [place], [place] [address] Radiation Oncologist Radiation Oncology 01/08/24 Adelso Quiñones [place] [address] [place] [address] Surgeon Urology 01/22/24 documented as of this encounter
--- OUTSIDE RECORDS SUMMARY | 2024-04-12 17:05 | XMS_ITS | Encounter Summary ---
Author Organization [facility] Healthcare Address [address] [place] [address] Care Team Providers Care Yard Engineer Name Role Phone Nikky Reyes MD Primary Care Provider Venkat Vivar DO Unavailable [phone] Kwaku Martin MD Unavailable [phone] Richard Hargrove MD Unavailable [phone] Adelso Quiñones MD Unavailable [phone] Reason for Visit * Episode Based Medications (Routine) - Closed Specialty Diagnoses / Procedures Referred By Leatha t Referred To Contact Diagnoses Encounter for person encountering health services Malignant neoplasm of urinary bladder, unspecified site (HCC) Venkat Vivar, [address] [place] [address] Phone: tel: fax: [address] [address] Phone: tel: fax: Referral ID Status Reason Start Date Expiration Date Visits Re quested Visits Authorized [id number] Closed 01/05/2024 03/09/2024 1 70 Encounter Details Date Type Department Care Team ([facility] st Contact Info) Description 02/09/2024 1:15 PM BOX 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 Lab [facility] at [address] [address] Encounter for person encountering health services; Malignant [...] on file Legal Sex Male 2:03 AM BOX 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 Gender Identity Not on file Sexual Orientation Not on file Occupation Industry Job Start Date Job End Date Retired Not on file Not on file Not on file documented as of this encounter Plan of Treatment Not on file documented as of this encounter Procedures Procedure Name Priority Date/Time Associated Diagnosis Comments EGFR Routine 02/09/2024 1:26 PM BOX 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 Encounter for person encountering health services Malignant neoplasm of urinary bladder, unspecified site (HCC) DIFFERENTIAL AUTO Routine 02/09/2024 1:2 6 PM BOX 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 Encounter for person encountering health services Malignant neoplasm of urinary bladder, unspecified site (HCC) CBC WITH AUTO DIFFERENTIAL Routine 02/09/2024 1:26 PM BOX 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 Encounter for person encountering health services Malignant neoplasm of urinary bladder, unspecified site (HCC) COMPREHENSIVE METABOLIC PANEL Routine 02/09/2024 1:26 PM BOX 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 Encounter for person encountering health services Malignant neoplasm of urinary bladder, unspecified site (HCC) documented in this encounter Results * eGFR (02/09/2024 1:26 PM BOX 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) eGFR >90 >=60 mL/min/1. 73 m2 Comment: [...] was last reviewed 2021. Testing performed by: [address] [address] Blood 02/09/2024 1:26 PM BOX 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 02/09/2024 1:33 PM BOX 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 us Venkat Vivar DO LAB BLOOD ORDERABLES Final R esult [facility] [address] [facility] [place] [address] * Differential, auto (02/09/2024 1:26 PM BOX 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) Neutrophil abs 3.2 1.5 - 6.5 K/cumm Comment:Testing performed by : [address] [address] Imm gran abs 0.0 0.0 - 0.1 K/cumm JAIME PINEDA Comment:Testing performed by : [address] [address] Lymphocyte abs 1.1 0.8 - 3.3 K/cumm JAIME Comment:Testing performed by : [address] [address] Monocyte abs 0.3 0.2 - 0.8 K/cumm [facility] Comment:Testing performed by : [address] [address] Eosinophil abs 0.1 0.0 - 0.5 K/cumm [facility] Comment:Testing performed by : [address] [address] Basophil abs 0.0 0.0 - 0.1 K/cumm [facility] Comment:Testing performed by : [address] [address] Neutrophil pct 65.9 % [facility] Comment: Interpretive Data Percent cell count reference ranges are not reported, since discordance with absolute values may lead to misinterpretation of CBC data. Current Interpretive Data was last revised on 2017. Testing performed by: [address] [address] Imm gran pct 0.6 % [facility] Comment: Interpretive Data Percent cell count reference ranges are not reported, since discordance with absolute values may lead to misinterpretation of CBC data. Current Interpretive Data was last revised on 2017. Testing performed by: [address] [address] Lymphocyte pct 23.4 % [facility] Comment: Interpretive Data Percent cell count reference ranges are not reported, since discordance with absolute values may lead to misinterpretation of CBC data. Current Interpretive Data was last revised on 2017. Testing performed by: [address] [address] Monocyte pct 7.0 % [facility] Comment: Interpretive Data Percent cell count reference ranges are not reported, since discordance with absolute values may lead to misinterpretation of CBC data. Current Interpretive Data was last revised on 2017. Testing performed by: [address] [address] Eosinophil pct 2.7 % [facility] Comment: Interpretive Data Percent cell count reference ranges are not reported, since discordance with absolute values may lead to misinterpretation of CBC data. Current Interpretive Data was last revised on 2017. Testing performed by: [address] [address] Basophil pct 0.4 % JAIME Comment: Interpretive Data Percent cell count reference ranges are not reported, since discordance with absolute values may lead to misinterpretation of CBC data. Current Interpretive Data was last revised on 2017. Testing performed by: [address] [address] Blood 02/09/2024 1:26 PM BOX 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 02/09/2024 1:33 PM BOX 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 us Venkat Vivar DO LAB BLOOD ORDERABLES Final R esult JAIME [address] [facility] Department [place] [address] * Comprehensive metabolic panel (02/09/2024 1:26 PM BOX 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) Sodium 139 135 - 145 mmol/L Comment:Testing performed by : [address] [address] Potassium, pl 3.8 3.3 - 4.9 mmol/L JAIME Comment:Testing performed by : [address] [address] Chloride 103 97 - 110 mmol/L JAIME Comment:Testing performed by : [address] [address] CO2 28 22 - 32 mmol/L JAIME Comment:Testing performed by : [address] [address] Anion gap 8 2 - 15 mmol/L JAIME Comment:Testing performed by : [address] [address] BUN 14 6 - 25 mg/dL JAIME Comment:Testing performed by : [address] [address] Creatinine 0.80 0.80 - 1.30 mg/dL JAIME Comment:Testing performed by : [address] [address] Glucose 102 70 - 199 mg/dL JAIME [...] was last revised 2022. Testing performed by: [address] [address] Calcium 8.9 8.5 - 10.3 mg/dL JAIME Comment:Testing performed by : [address] [address] Bilirubin, total 0.5 0.1 - 1.2 mg/dL JAIME Comment:Testing performed by : [address] [address] Protein, pl 7.2 6.5 - 8.5 g/dL JAIME Comment:Testing performed by : [address] [address] Albumin 4.1 3.5 - 5.0 g/dL JAIME Comment:Testing performed by : [address] [address] Alk phos 70 40 - 130 Units/L JAIME Comment:Testing performed by : [address] [address] ALT 15 7 - 55 Units/L JAIME Comment:Testing performed by : [address] [address] AST 16 10 - 50 Units/L JAIME Comment:Testing performed by : [address] [address] Blood 02/09/2024 1:26 PM BOX 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 02/09/2024 1:33 PM BOX 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 us Venkat Vivar DO LAB BLOOD ORDERABLES Final R esult JAIME [address] [facility] Department [place] [address] * (ABNORMAL) CBC with auto differential (02/09/2024 1:26 PM BOX 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) WBC 4.9 3.8 - 9.9 K/cumm Comment:Testing performed by : [address] [address] Hgb 12.0(L) 13.0 - 17.5 g/dL JAIME Comment:Testing performed by : [address] [address] Hct 34.5(L) 38.9 - 50.3 % JAIME Comment:Testing performed by : [address] [address] Plt 166 150 - 400 K/cumm JAIME Comment:Testing performed by : [address] [address] MPV 8.9(L) 9.1 - 12.3 fL AJIME Comment:Testing performed by : [address] [address] RBC 3.67(L) 4.30 - 5.80 M/cumm JAIME Comment:Testing performed by : [address] [address] MCV 94.0 81.3 - 96.4 fL JAIME Comment:Testing performed by : [address] [address] MCH 32.7 27.1 - 33.3 pg JAIME Comment:Testing performed by : [address] [address] MCHC 34.8 32.3 - 35.7 g/dL JAIME Comment:Testing performed by : [address] [address] RDW CV 13.9 11.1 - 14.9 % JAIME Comment:Testing performed by : [address] [address] RDW SD 47.8 35.7 - 48.1 fL JAIME Comment:Testing performed by : [facility], [address] [place] [address]., [address] NRBC abs 0.00 0.00 - 0.01 K/cumm JAIME Comment:Testing performed by : [facility], [address] [place] [address]., [address] Blood 02/09/2024 1:26 PM BOX 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 02/09/2024 1:33 PM BOX 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 Venkat Vivar DO LAB BLOOD ORDERABLES Final R esult JAIME [address] [facility] [place] [address] documented in this encounter Visit Diagnoses Diagnosis Encounter for person encountering health services Malignant neoplasm of urinary bladder, unspecified site (HCC) documented in this encounter Orders Appointment Requests Count Last Ordered Date Fi rst Ordered Date ONCBCN LAB APPOINTMENT 1 02/09/2024 documented in this encounter Care Teams Yard Engineer Relationship Specialty Start Date End Date Nikky Reyes MD [address] [facility] 2 [place] [address] PCP - General Family Practice 12/15/23 Venkat Vivar DO [address] [place] [address] MEDICAL ONCOLOGY, [facility] [address] [place], [place] [address] Medical Oncologist/Social Human Services Assistants Hematology and Oncology 12/15/23 Kwaku Martin MD [address] [place] [address] Consulting Physician Urology 12/15/23 Richard Hargrove MD [address] [place] [address] [address] [place], [place] [address] Radiation Oncologist Radiation Oncology 01/08/24 Adelso Quiñones [place] [address] [place] [address] Surgeon Urology 01/22/24 documented as of this encounter
--- OUTSIDE RECORDS SUMMARY | 2024-04-12 17:06 | XMS_ITS | Encounter Summary ---
Author Organization [facility] Healthcare Address [address] [place] [address] Care Team Providers Care Command Post Craftsman Name Role Phone Nikky Reyes MD Primary Care Provider Venkat Vivar DO Unavailable [phone] Kwaku Martin MD Unavailable [phone] Richard Hargrove MD Unavailable [phone] Adelso Quiñones MD Unavailable [phone] Encounter Details Date Type Department Care [...] on file Legal Sex Male 2:03 AM RESEARCH LABORATORY SPECIALIST Gender Identity Not on file Sexual Orientation Not on file Occupation Industry Job Start Date Job End Date Retired Not on file Not on file Not on file documented as of this encounter Plan of Treatment Not on file documented as of this encounter Procedures Procedure Name Priority Date/Time Associated Diagnosis Comments RAD ONC ARIA SESSION SUMMARY 02/04/2024 1:54 PM RESEARCH LABORATORY SPECIALIST documented in this encounter Results * RAD ONC ARIA SESSION SUMMARY (02/04/2024 1:54 PM RESEARCH LABORATORY SPECIALIST) Course Name [email or web address]_ 2023 ARIA Course Plan Date 01/22/2024 3:44 PM ARIA Elapsed Days 2 ARIA Treatment Start Date 2024 ARIA Treatment Site BLADDER ARIA Dose Given To Date (cGy) 825 ARIA Session Dosage Given (cGy) 275 ARIA Plan ID BLADDER ARIA Fractions Treated 3 ARIA Prescribed Dose Per Fraction (cGy) 275 ARIA Prescribed Total Dose (cGy) 5,500 ARIA 02/04/2024 1:54 PM RESEARCH LABORATORY SPECIALIST us Not In File Miscellaneous RADIATION ONCOLOGY ORD ERABLES Final Result ARIA documented in this encounter Visit Diagnoses Not on filedocumented in this encounter Care Teams Command Post Craftsman Relationship Specialty Start Date End Date Nikky Reyes MD [facility] 2 [place] [address] PCP - General Family Practice 12/15/23 Venkat Vivar DO [address] [place] [address] MEDICAL ONCOLOGY, [facility] [address] [place], [place] [id number] Medical Oncologist/Boning Room Worker Hematology and Oncology 12/15/23 Kwaku Martin MD [address] [place] [address] Consulting Physician Urology 12/15/23 Richard Hargrove MD 14[address] [facility] [address] [place], [place] [address] Radiation Oncologist Radiation Oncology 01/08/24 Adelso Quiñones [place] [address] [place] [address] Surgeon Urology 01/22/24 documented as of this encounter
--- OUTSIDE RECORDS SUMMARY | 2024-04-12 17:06 | XMS_ITS | Encounter Summary ---
Author Organization [facility] Address [address] [place] [address] Phone Care Team Providers Care Hot Saw Operator Name Role Phone Nikky Reyes MD Primary Care Provider Venkat Vivar DO Unavailable [phone] Kwaku Martin MD Unavailable [phone] Richard Hargrove MD Unavailable [phone] Adelso Quiñones MD Unavailable [phone] Encounter Details Date Type Department Care Team (Late st Contact Info) Description 2024 Orders Only [facility] Oncology [address] [facility] [address] [place] [phone] Venkat Vivar DO 1418 [facility] [address] [place] [address] Social History Tobacco Use Types [...] on file Legal Sex Male 2:03 AM BUNDLING 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 Gender Identity Not on file Sexual Orientation Not on file Occupation Industry Job Start Date Job End Date Retired Not on file Not on file Not on file documented as of this encounter Plan of Treatment Not on file documented as of this encounter Visit Diagnoses Not on filedocumented in this encounter Care Teams Hot Saw Operator Relationship Specialty Start Date End Date Nikky Reyes MD [address] [facility] [address] [place] [address] PCP - General Family Practice 12/15/23 Venkat Vivar DO [address] [place] [address] [facility] 180 [place] [address] Medical Oncologist/Medical Territory Manager Hematology and Oncology 12/15/23 Kwaku Martin MD [address] [place] [address] Consulting Physician Urology 12/15/23 Richard Hargrove MD [address] [place] [address] 160 [place] [address] Radiation Oncologist Radiation Oncology 01/08/24 Adelso Qu[place] [address] [place] [address] Surgeon Urology 01/22/24 documented as of this encounter
--- OUTSIDE RECORDS SUMMARY | 2024-04-12 17:06 | XMS_ITS | Encounter Summary ---
Author Organization [facility] Healthcare Address [address] [place] [address] Care Team Providers Care Loan Examiner Name Role Phone Nikky Reyes MD Primary Care Provider Venkat Vivar DO Unavailable [phone] Kwaku Martin MD Unavailable [phone] Richard Hargrove MD Unavailable [phone] Adelso Quiñones MD Unavailable [phone] Encounter Details Date Type Department Care [...] on file Legal Sex Male 2:03 AM TRANSPORTER RADIOLOGY Gender Identity Not on file Sexual Orientation Not on file Occupation Industry Job Start Date Job End Date Retired Not on file Not on file Not on file documented as of this encounter Plan of Treatment Not on file documented as of this encounter Procedures Procedure Name Priority Date/Time Associated Diagnosis Comments RAD ONC ARIA SESSION SUMMARY 02/03/2024 8:21 AM TRANSPORTER RADIOLOGY documented in this encounter Results * RAD ONC ARIA SESSION SUMMARY (02/03/2024 8:21 AM TRANSPORTER RADIOLOGY) Course Name C1_BLADDER_ 2023 ARIA Course Plan Date 01/22/2024 3:44 PM ARIA Elapsed Days 1 ARIA Treatment Start Date 2024 ARIA Treatment Site BLADDER ARIA Dose Given To Date (cGy) 550 ARIA Session Dosage Given (cGy) 275 ARIA Plan ID BLADDER ARIA Fractions Treated 2 ARIA Prescribed Dose Per Fraction (cGy) 275 ARIA Prescribed Total Dose (cGy) 5,500 ARIA 02/03/2024 8:21 AM TRANSPORTER RADIOLOGY us Not In File Miscellaneous RADIATION ONCOLOGY ORD ERABLES Final Result ARIA documented in this encounter Visit Diagnoses Not on filedocumented in this encounter Care Teams Loan Examiner Relationship Specialty Start Date End Date Nikky Reyes MD [facility] 2 [place] [address] PCP - General Family Practice 12/15/23 [place] [address] [place] [address] MEDICAL ONCOLOGY, [facility] 180 [place], [place] [id number] Medical Oncologist/Custom Applicator Hematology and Oncology 12/15/23 Kwaku Martin MD [address] [place] [address] Consulting Physician Urology 12/15/23 Richard Hargrove MD 1418 [facility] 160 [place], [place] [address] Radiation Oncologist Radiation Oncology 01/08/24 Adelso Quiñones [place] [address] [place] [address] Surgeon Urology 01/22/24 documented as of this encounter
--- OUTSIDE RECORDS SUMMARY | 2024-04-12 17:06 | XMS_ITS | Encounter Summary ---
Author Organization [facility] Healthcare Address [address] [place] [address] Care Team Providers Care Classified Advertising Supervisor Name Role Phone Nikky Reyes MD Primary Care Provider Venkat Vivar DO Unavailable [phone] Kwaku Martin MD Unavailable [phone] Richard Hargrove MD Unavailable [phone] Adelso Quiñones MD Unavailable [phone] Encounter Details Date Type Department Care Team (Late st Contact Info) Description 01/30/2024 7:55 PM CDT Treatment [facility] Medical Office Building 2 Radiation Oncology [address] [place] [address] Social History Tobacco Use Types Packs/Day Years [...] on file Legal Sex Male 2:03 AM [employer]BER [employer] Gender Identity Not on file Sexual Orientation Not on file Occupation Industry Job Start Date Job End Date Retired Not on file Not on file Not on file documented as of this encounter Plan of Treatment Not on file documented as of this encounter Visit Diagnoses Not on filedocumented in this encounter Care Teams Classified Advertising Supervisor Relationship Specialty Start Date End Date Nikky Reyes MD 3417 [facility] [address] [place] [address] PCP - General Family Practice 12/15/23 [place] [address] [place] [address] MEDICAL ONCOLOGY, [facility] [address] [place] [address] Medical Oncologist/Pigment Presser Hematology and Oncology 12/15/23 Kwaku Martin MD [address] [place] [address] Consulting Physician Urology 12/15/23 Richard Hargrove MD [address] [place] [address] [address] [place] [address] Radiation Oncologist Radiation Oncology 01/08/24 Adelso Quiñones [place] [address] [place] [address] Surgeon Urology 01/22/24 documented as of this encounter
--- OUTSIDE RECORDS SUMMARY | 2024-04-12 17:06 | XMS_ITS | Encounter Summary ---
Author Organization [facility] Healthcare Address [address] [place] [address] Care Team Providers Care Tree Care Foreman Name Role Phone Nikky Reyes MD Primary Care Provider Venkat Vivar DO Unavailable [phone] Kwaku Martin MD Unavailable [phone] Richard Hargrove MD Unavailable [phone] Adelso Quiñones MD Unavailable [phone] Reason for Visit * Radiation Therapy (Routine) - Closed Specialty Diagnoses / Procedures Referred By Conthiral t Referred To Contact Radiation Oncology Diagnoses Malignant neoplasm of urinary bladder, unspecified site (HCC) Richard Hargrove MD [address] [place] [address] Phone: tel: fax: [facility] Medical Office Building 2 Radiation Oncology [address] [place] [address] Phone: tel: fax: Referral ID Status Reason Start Date Expiration Date Visits Re quested Visits Authorized [id number] Closed 01/22/2024 04/23/2024 99 99 Encounter Details Date Type Department Care Team ([facility] st Contact Info) Description 01/22/2024 1:30 PM CDT Treatment [facility] Medical Office Building 2 Radiation Oncology [address] [place] [address] Richard Hargrove MD [facility] 160 [place], [place] [id number] Social History Tobacco Use Types Packs/Day Years [...] on file Legal Sex Male 2:03 AM CHEMISTRY 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 Gender Identity Not on file Sexual Orientation Not on file Occupation Industry Job Start Date Job End Date Retired Not on file Not on file Not on file documented as of this encounter Plan of Treatment Not on file documented as of this encounter Visit Diagnoses Not on filedocumented in this encounter Care Teams Tree Care Foreman Relationship Specialty Start Date End Date Nikky Reyes MD 3417 [facility] 2 [place] [address] PCP - General Family Practice 12/15/23 Venkat Vivar DO [address] [place] [address] MEDICAL ONCOLOGY, [facility] 180 [place], [place] [address] Medical Oncologist/Role Player Hematology and Oncology 12/15/23 Kwaku Martin MD [address] [place] [address] Consulting Physician Urology 12/15/23 Richard Hargrove MD [address] [place] [address] 160 [place] [address] Radiation Oncologist Radiation Oncology 01/08/24 Adelso Quiñones [place] [address] [place] [address] Surgeon Urology 01/22/24 documented as of this encounter
--- OUTSIDE RECORDS SUMMARY | 2024-04-12 17:06 | XMS_ITS | Encounter Summary ---
Author Organization [facility] Healthcare Address [address] [place] [address] Care Team Providers Care Administrative Support Clerk Name Role Phone Nikky Reyes MD Primary Care Provider Venkat Vivar DO Unavailable [phone] Kwaku Martin MD Unavailable [phone] Richard Hargrove MD Unavailable [phone] Adelso Quiñones MD Unavailable [phone] Encounter Details Date Type Department Care Team (Late st Contact Info) Description 2024 11:20 AM RESIDENTIAL GREEN BUILDING DESIGNER Treatment [facility] Building 2 Radiation Oncology [address] [place], [place] [phone] Richard Hargrove MD [address] [place] [address] Social History Tobacco Use Types Packs/Day Years [...] on file Legal Sex Male 2:03 AM RESIDENTIAL GREEN BUILDING DESIGNER Gender Identity Not on file Sexual Orientation Not on file Occupation Industry Job Start Date Job End Date Retired Not on file Not on file Not on file documented as of this encounter Plan of Treatment Not on file documented as of this encounter Visit Diagnoses Not on filedocumented in this encounter Care Teams Administrative Support Clerk Relationship Specialty Start Date End Date Nikky Reyes MD [facility] [address] [place], [place] [phone] PCP - General Family Practice 12/15/23 Venkat Vivar DO 1418 [facility] MEDICAL ONCOLOGY, [facility] 180 [place] [address] Medical Oncologist/Makeup Artist Hematology and Oncology 12/15/23 Kwaku Martin MD [address] [place] [address] Consulting Physician Urology 12/15/23 Richard Hargrove MD 1418 [facility] 160 [place], [place] [address] Radiation Oncologist Radiation Oncology 01/08/24 Adelso Quiñones [place] [address] [place] [address] Surgeon Urology 01/22/24 documented as of this encounter
--- OUTSIDE RECORDS SUMMARY | 2024-04-12 17:06 | XMS_ITS | Encounter Summary ---
Author Organization [facility] Healthcare Address [address] [place] [address] Care Team Providers Care Clean Up Helper Banquet Name Role Phone Nikky Reyes MD Primary Care Provider Venkat Vivar DO Unavailable [phone] Kwaku Martin MD Unavailable [phone] Richard Hargrove MD Unavailable [phone] Adelso Quiñones MD Unavailable [phone] Reason for Visit * Episode Based Medications (Routine) - Closed Specialty Diagnoses / Procedures Referred By Leatha t Referred To Contact Diagnoses Encounter for person encountering health services Malignant neoplasm of urinary bladder, unspecified site (HCC) Venkat Vivar, [address] [place] [address] Phone: tel: fax: [address] [address] Phone: tel: fax: Referral ID Status Reason Start Date Expiration Date Visits Re quested Visits Authorized [id number] Closed 01/05/2024 03/09/2024 1 70 Encounter Details Date Type Department Care Team ([facility] st Contact Info) Description 2024 12:15 PM AIRCRAFT MAGNETO MECHANIC Lab [facility] at [address] [address] Encounter for person encountering health services; Malignant [...] file Legal Sex Male 2:03 AM AIRCRAFT MAGNETO MECHANIC Gender Identity Not on file Sexual Orientation Not on file Occupation Industry Job Start Date Job End Date Retired Not on file Not on file Not on file documented as of this encounter Plan of Treatment Not on file documented as of this encounter Procedures Procedure Name Priority Date/Time Associated Diagnosis Comments EGFR Routine 2024 12:47 PM AIRCRAFT MAGNETO MECHANIC Encounter for person encountering health services Malignant neoplasm of urinary bladder, unspecified site (HCC) DIFFERENTIAL AUTO Routine 2024 12: 47 PM AIRCRAFT MAGNETO MECHANIC Encounter for person encountering health services Malignant neoplasm of urinary bladder, unspecified site (HCC) CBC WITH AUTO DIFFERENTIAL Routine 2024 12:47 PM AIRCRAFT MAGNETO MECHANIC Encounter for person encountering health services Malignant neoplasm of urinary bladder, unspecified site (HCC) COMPREHENSIVE METABOLIC PANEL Routine 2024 12:47 PM AIRCRAFT MAGNETO MECHANIC Encounter for person encountering health services Malignant neoplasm of urinary bladder, unspecified site (HCC) documented in this encounter Results * eGFR (2024 12:47 PM AIRCRAFT MAGNETO MECHANIC) eGFR >90 >=60 mL/min/1. 73 m2 Comment: [...] was last reviewed 2021. Testing performed by: [address] [address] Blood 2024 12:4 7 PM AIRCRAFT MAGNETO MECHANIC 2024 12:49 PM AIRCRAFT MAGNETO MECHANIC us Venkat iVvar DO LAB BLOOD ORDERABLES Final R esult [facility] 8733 [facility] Department [place] [address] * Differential, auto (2024 12:47 PM AIRCRAFT MAGNETO MECHANIC) Neutrophil abs 4.2 1.5 - 6.5 K/cumm Comment:Testing performed by : [address] [address] Imm gran abs 0.0 0.0 - 0.1 K/cumm JAIME PINEDA Comment:Testing performed by : [address] [address] Lymphocyte abs 1.5 0.8 - 3.3 K/cumm JAIME Comment:Testing performed by : [address] [address] Monocyte abs 0.8 0.2 - 0.8 K/cumm [facility] Comment:Testing performed by : [address] [address] Eosinophil abs 0.2 0.0 - 0.5 K/cumm [facility] Comment:Testing performed by : [address] [address] Basophil abs 0.0 0.0 - 0.1 K/cumm [facility] Comment:Testing performed by : [address] [address] Neutrophil pct 61.5 % [facility] Comment: Interpretive Data Percent cell count reference ranges are not reported, since discordance with absolute values may lead to misinterpretation of CBC data. Current Interpretive Data was last revised on 2017. Testing performed by: [address] [address] Imm gran pct 0.4 % [facility] Comment: Interpretive Data Percent cell count reference ranges are not reported, since discordance with absolute values may lead to misinterpretation of CBC data. Current Interpretive Data was last revised on 2017. Testing performed by: [address] [address] Lymphocyte pct 22.4 % [facility] Comment: Interpretive Data Percent cell count reference ranges are not reported, since discordance with absolute values may lead to misinterpretation of CBC data. Current Interpretive Data was last revised on 2017. Testing performed by: [address] [address] Monocyte pct 11.9 % [facility] Comment: Interpretive Data Percent cell count reference ranges are not reported, since discordance with absolute values may lead to misinterpretation of CBC data. Current Interpretive Data was last revised on 2017. Testing performed by: [address] [address] Eosinophil pct 3.2 % [facility] Comment: Interpretive Data Percent cell count reference ranges are not reported, since discordance with absolute values may lead to misinterpretation of CBC data. Current Interpretive Data was last revised on 2017. Testing performed by: [address] [address] Basophil pct 0.6 % JAIME Comment: Interpretive Data Percent cell count reference ranges are not reported, since discordance with absolute values may lead to misinterpretation of CBC data. Current Interpretive Data was last revised on 2017. Testing performed by: [address] [address] Blood 2024 12:4 7 PM AIRCRAFT MAGNETO MECHANIC 2024 12:49 PM AIRCRAFT MAGNETO MECHANIC us Venkat Vivar DO LAB BLOOD ORDERABLES Final R esult JAIME 8275 [facility] Department [place] [address] * Comprehensive metabolic panel (2024 12:47 PM AIRCRAFT MAGNETO MECHANIC) Sodium 142 135 - 145 mmol/L Comment:Testing performed by : [address] [address] Potassium, pl 4.4 3.3 - 4.9 mmol/L JAIME Comment:Testing performed by : [address] [address] Chloride 107 97 - 110 mmol/L JAIME Comment:Testing performed by : [address] [address] CO2 27 22 - 32 mmol/L JAIME Comment:Testing performed by : [address] [address] Anion gap 8 2 - 15 mmol/L JAIME Comment:Testing performed by : [address] [address] BUN 15 6 - 25 mg/dL JAIME Comment:Testing performed by : [address] [address] Creatinine 0.80 0.80 - 1.30 mg/dL JAIME Comment:Testing performed by : [address] [address] Glucose 108 70 - 199 mg/dL JAIME [...] was last revised 2022. Testing performed by: [address] [address] Calcium 9.0 8.5 - 10.3 mg/dL JAIME Comment:Testing performed by : [address] [address] Bilirubin, total 0.4 0.1 - 1.2 mg/dL [facility] Comment:Testing performed by : [address] [address] Protein, pl 7.2 6.5 - 8.5 g/dL [facility] Comment:Testing performed by : [address] [address] Albumin 4.1 3.5 - 5.0 g/dL [facility] Comment:Testing performed by : [address] [address] Alk phos 71 40 - 130 Units/L [facility] Comment:Testing performed by : [address] [address] ALT 15 7 - 55 Units/L [facility] Comment:Testing performed by : [address] [address] AST 16 10 - 50 Units/L [facility] Comment:Testing performed by : [address] [address] Blood 2024 12:4 7 PM AIRCRAFT MAGNETO MECHANIC 2024 12:49 PM AIRCRAFT MAGNETO MECHANIC us Venkat Vivar DO LAB BLOOD ORDERABLES Final R esult JAIME 4500 [facility] Department [place] [address] * (ABNORMAL) CBC with auto differential (2024 12:47 PM AIRCRAFT MAGNETO MECHANIC) WBC 6.8 3.8 - 9.9 K/cumm Comment:Testing performed by : [address] [address] Hgb 12.6(L) 13.0 - 17.5 g/dL JAIME Comment:Testing performed by : [address] [address] Hct 37.0(L) 38.9 - 50.3 % JAIME Comment:Testing performed by : [address] [address] Plt 185 150 - 400 K/cumm JAIME Comment:Testing performed by : [address] [address] MPV 8.9(L) 9.1 - 12.3 fL JAIME Comment:Testing performed by : [address] [address] RBC 3.89(L) 4.30 - 5.80 M/cumm JAIME Comment:Testing performed by : [address] [address] MCV 95.1 81.3 - 96.4 fL JAIME Comment:Testing performed by : [address] [address] MCH 32.4 27.1 - 33.3 pg JAIME Comment:Testing performed by : [address] [address] MCHC 34.1 32.3 - 35.7 g/dL JAIME Comment:Testing performed by : [address] [address] RDW CV 14.3 11.1 - 14.9 % JAIEM Comment:Testing performed by : [address] [address] RDW SD 50.1(H) 35.7 - 48.1 fL JAIME Comment:Testing performed by : [facility], [address] [place] [address]., [address] NRBC abs 0.00 0.00 - 0.01 K/cumm JAIME Comment:Testing performed by : [facility], [address] [place] [address]., [address] Blood 2024 12:4 7 PM AIRCRAFT MAGNETO MECHANIC 2024 12:49 PM AIRCRAFT MAGNETO MECHANIC Venkat Vivar DO LAB BLOOD ORDERABLES Final R esult JAIME 2090 [facility] Department [place] [address] documented in this encounter Visit Diagnoses Diagnosis Encounter for person encountering health services Malignant neoplasm of urinary bladder, unspecified site (HCC) documented in this encounter Orders Appointment Requests Count Last Ordered Date Fi rst Ordered Date ONCBCN LAB APPOINTMENT 1 2024 documented in this encounter Care Teams Clean Up Helper Banquet Relationship Specialty Start Date End Date Nikky Reyes MD [facility]7 [facility] [place] [address] [place] [address] PCP - General Family Practice 12/15/23 Venkat Vivar DO [address] [place] [address] MEDICAL ONCOLOGY, [facility] [address] [place], [place] [id number] Medical Oncologist/Theology Professor Hematology and Oncology 12/15/23 Kwaku Martin MD [address] [place] [address] Consulting Physician Urology 12/15/23 Richard Hargrove MD [address] [place] [address] [address] [place], [place] [address] Radiation Oncologist Radiation Oncology 01/08/24 Adelso Quiñones [place] [address] [place] [address] Surgeon Urology 01/22/24 documented as of this encounter
--- OUTSIDE RECORDS SUMMARY | 2024-04-12 17:06 | XMS_ITS | Encounter Summary ---
Author Organization [facility] Healthcare Address [address] [place] [address] Care Team Providers Care Banking Consultant Name Role Phone Nikky Reyes MD Primary Care Provider Venkat Vivar DO Unavailable [phone] Kwaku Martin MD Unavailable [phone] Richard Hargrove MD Unavailable [phone] Adelso Quiñones MD Unavailable [phone] Encounter Details Date Type Department Care [...] on file Legal Sex Male 2:03 AM EQUIPMENT TECHNICIAN Gender Identity Not on file Sexual Orientation Not on file Occupation Industry Job Start Date Job End Date Retired Not on file Not on file Not on file documented as of this encounter Plan of Treatment Not on file documented as of this encounter Procedures Procedure Name Priority Date/Time Associated Diagnosis Comments RAD ONC ARIA SESSION SUMMARY 2024 11:28 AM EQUIPMENT TECHNICIAN documented in this encounter Results * RAD ONC ARIA SESSION SUMMARY (2024 11:28 AM EQUIPMENT TECHNICIAN) Course Name [id number]_[id number]_ 2023 ARIA Course [...] (cGy) 5,500 ARIA 2024 11:2 8 AM EQUIPMENT TECHNICIAN us Not In File Miscellaneous RADIATION ONCOLOGY ORD ERABLES Final Result ARIA documented in this encounter Visit Diagnoses Not on filedocumented in this encounter Care Teams Banking Consultant Relationship Specialty Start Date End Date Nikky Reyes MD [facility]7 [facility] 2 [place] [address] PCP - General Family Practice 12/15/23 [place] [address] [place] [address] MEDICAL ONCOLOGY, [facility] [address] [place], [place] [id number] Medical Oncologist/Fabrication Specialist Hematology and Oncology 12/15/23 Kwaku Martin MD [address] [place] [address] Consulting Physician Urology 12/15/23 Richard Hargrove MD [address] [facility] [address] [place], [place] [id number] Radiation Oncologist Radiation Oncology 01/08/24 Adelso Quiñones [place] [address] [place] [address] Surgeon Urology 01/22/24 documented as of this encounter
--- OUTSIDE RECORDS SUMMARY | 2024-04-12 17:06 | XMS_ITS | Encounter Summary ---
Author Organization [facility] Healthcare Address [address] [place] [address] Care Team Providers Care Vortex Operator Name Role Phone Nikky Reyes MD Primary Care Provider Venkat Vivar DO Unavailable [phone] Kwaku Martin MD Unavailable [phone] Richard Hargrove MD Unavailable [phone] Adelso Quiñones MD Unavailable [phone] Reason for Visit * Episode Based Medications (Routine) - Closed Specialty Diagnoses / Procedures Referred By Leatha t Referred To Contact Diagnoses Encounter for person encountering health services Malignant neoplasm of urinary bladder, unspecified site (HCC) Venkat Vivar, [address] [place] [address] Phone: tel: fax: [address] [address] Phone: tel: fax: Referral ID Status Reason Start Date Expiration Date Visits Re quested Visits Authorized [id number] Closed 01/05/2024 03/09/2024 1 70 Encounter Details Date Type Department Care Team ([facility] st Contact Info) Description 02/05/2024 1:15 PM URBAN AND REGIONAL PLANNER Lab [facility] at [address] [address] Encounter for person encountering health services; Malignant [...] on file Legal Sex Male 2:03 AM URBAN AND REGIONAL PLANNER Gender Identity Not on file Sexual Orientation Not on file Occupation Industry Job Start Date Job End Date Retired Not on file Not on file Not on file documented as of this encounter Plan of Treatment Not on file documented as of this encounter Procedures Procedure Name Priority Date/Time Associated Diagnosis Comments EGFR Routine 02/05/2024 1:18 PM URBAN AND REGIONAL PLANNER Encounter for person encountering health services Malignant neoplasm of urinary bladder, unspecified site (HCC) DIFFERENTIAL AUTO Routine 02/05/2024 1:1 8 PM URBAN AND REGIONAL PLANNER Encounter for person encountering health services Malignant neoplasm of urinary bladder, unspecified site (HCC) CBC WITH AUTO DIFFERENTIAL Routine 02/05/2024 1:18 PM URBAN AND REGIONAL PLANNER Encounter for person encountering health services Malignant neoplasm of urinary bladder, unspecified site (HCC) COMPREHENSIVE METABOLIC PANEL Routine 02/05/2024 1:18 PM URBAN AND REGIONAL PLANNER Encounter for person encountering health services Malignant neoplasm of urinary bladder, unspecified site (HCC) documented in this encounter Results * eGFR (02/05/2024 1:18 PM URBAN AND REGIONAL PLANNER) eGFR >90 >=60 mL/min/1. 73 m2 Comment: [...] was last reviewed 2021. Testing performed by: [address] [address] Blood 02/05/2024 1:18 PM URBAN AND REGIONAL PLANNER 02/05/2024 1:19 PM URBAN AND REGIONAL PLANNER us Venkat Vivar DO LAB BLOOD ORDERABLES Final R esult [facility] 8[address] [facility] [place] [address] * Differential, auto (02/05/2024 1:18 PM URBAN AND REGIONAL PLANNER) Neutrophil abs 4.0 1.5 - 6.5 K/cumm Comment:Testing performed by : [address] [address] Imm gran abs 0.0 0.0 - 0.1 K/cumm JAIME PINEDA Comment:Testing performed by : [address] [address] Lymphocyte abs 1.3 0.8 - 3.3 K/cumm JAIME Comment:Testing performed by : [address] [address] Monocyte abs 0.4 0.2 - 0.8 K/cumm [facility] Comment:Testing performed by : [address] [address] Eosinophil abs 0.2 0.0 - 0.5 K/cumm [facility] Comment:Testing performed by : [address] [address] Basophil abs 0.0 0.0 - 0.1 K/cumm [facility] Comment:Testing performed by : [address] [address] Neutrophil pct 67.1 % [facility] Comment: Interpretive Data Percent cell count reference ranges are not reported, since discordance with absolute values may lead to misinterpretation of CBC data. Current Interpretive Data was last revised on 2017. Testing performed by: [address] [address] Imm gran pct 0.3 % [facility] Comment: Interpretive Data Percent cell count reference ranges are not reported, since discordance with absolute values may lead to misinterpretation of CBC data. Current Interpretive Data was last revised on 2017. Testing performed by: [address] [address] Lymphocyte pct 21.0 % [facility] Comment: Interpretive Data Percent cell count reference ranges are not reported, since discordance with absolute values may lead to misinterpretation of CBC data. Current Interpretive Data was last revised on 2017. Testing performed by: [address] [address] Monocyte pct 6.9 % [facility] Comment: Interpretive Data Percent cell count reference ranges are not reported, since discordance with absolute values may lead to misinterpretation of CBC data. Current Interpretive Data was last revised on 2017. Testing performed by: [address] [address] Eosinophil pct 4.0 % [facility] Comment: Interpretive Data Percent cell count reference ranges are not reported, since discordance with absolute values may lead to misinterpretation of CBC data. Current Interpretive Data was last revised on 2017. Testing performed by: [address] [address] Basophil pct 0.7 % JAIME Comment: Interpretive Data Percent cell count reference ranges are not reported, since discordance with absolute values may lead to misinterpretation of CBC data. Current Interpretive Data was last revised on 2017. Testing performed by: [address] [address] Blood 02/05/2024 1:18 PM URBAN AND REGIONAL PLANNER 02/05/2024 1:19 PM URBAN AND REGIONAL PLANNER us Venkat Vivar DO LAB BLOOD ORDERABLES Final R esult JAIME [address] [facility] Department [place] [address] * Comprehensive metabolic panel (02/05/2024 1:18 PM URBAN AND REGIONAL PLANNER) Sodium 140 135 - 145 mmol/L Comment:Testing performed by : [address] [address] Potassium, pl 4.2 3.3 - 4.9 mmol/L JAIME Comment:Testing performed by : [address] [address] Chloride 105 97 - 110 mmol/L JAIME Comment:Testing performed by : [address] [address] CO2 27 22 - 32 mmol/L JAIME Comment:Testing performed by : [address] [address] Anion gap 8 2 - 15 mmol/L JAIME Comment:Testing performed by : [address] [address] BUN 15 6 - 25 mg/dL JAIME Comment:Testing performed by : [address] [address] Creatinine 0.80 0.80 - 1.30 mg/dL JAIME Comment:Testing performed by : [address] [address] Glucose 100 70 - 199 mg/dL JAIME [...] last revised 2022. Testing performed by: [address] [address] Calcium 8.8 8.5 - 10.3 mg/dL JAIME Comment:Testing performed by : [address] [address] Bilirubin, total 0.4 0.1 - 1.2 mg/dL JAIME Comment:Testing performed by : [address] [address] Protein, pl 6.8 6.5 - 8.5 g/dL JAIME Comment:Testing performed by : [address] [address] Albumin 3.9 3.5 - 5.0 g/dL JAIME Comment:Testing performed by : [address] [address] Alk phos 68 40 - 130 Units/L JAIME Comment:Testing performed by : [address] [address] ALT 15 7 - 55 Units/L JAIME Comment:Testing performed by : [address] [address] AST 15 10 - 50 Units/L JAIME Comment:Testing performed by : [address] [address] Blood 02/05/2024 1:18 PM URB[employer] AND REGIONAL PLANNER 02/05/2024 1:19 PM URBAN AND REGIONAL PLANNER us Venkat Vivar DO LAB BLOOD ORDERABLES Final R esult JAIME 45[address] [facility] Department [place] [address] * (ABNORMAL) CBC with auto differential (02/05/2024 1:18 PM URBAN AND REGIONAL PLANNER) WBC 6.0 3.8 - 9.9 K/cumm Comment:Testing performed by : [address] [address] Hgb 11.5(L) 13.0 - 17.5 g/dL JAIME Comment:Testing performed by : [address] [address] Hct 33.3(L) 38.9 - 50.3 % JAIME Comment:Testing performed by : [address] [address] Plt 173 150 - 400 K/cumm JAIME Comment:Testing performed by : [address] [address] MPV 8.9(L) 9.1 - 12.3 fL JAIME Comment:Testing performed by : [address] [address] RBC 3.52(L) 4.30 - 5.80 M/cumm JAIME Comment:Testing performed by : [address] [address] MCV 94.6 81.3 - 96.4 fL JAIME Comment:Testing performed by : [address] [address] MCH 32.7 27.1 - 33.3 pg JAIME Comment:Testing performed by : [address] [address] MCHC 34.5 32.3 - 35.7 g/dL JAIME Comment:Testing performed by : [address] [address] RDW CV 14.2 11.1 - 14.9 % JAIME Comment:Testing performed by : [address] [address] RDW SD 48.6(H) 35.7 - 48.1 fL JAIME Comment:Testing performed by : [facility], [address] [place] [address]., [address] NRBC abs 0.00 0.00 - 0.01 K/cumm JAIME Comment:Testing performed by : [facility], [address] [place] [address]., [address] Blood 02/05/2024 1:18 PM URBAN AND REGIONAL PLANNER 02/05/2024 1:19 PM URBAN AND REGIONAL PLANNER Venkat Vivar DO LAB BLOOD ORDERABLES Final R esult [facility] [address] [facility] Department [place] [address] documented in this encounter Visit Diagnoses Diagnosis Encounter for person encountering health services Malignant neoplasm of urinary bladder, unspecified site (HCC) documented in this encounter Orders Appointment Requests Count Last Ordered Date Fi rst Ordered Date ONCBCN LAB APPOINTMENT 1 02/05/2024 documented in this encounter Care Teams Vortex Operator Relationship Specialty Start Date End Date Nikky Reyes MD 34[address] [facility] 2 [place] [address] PCP - General Family Practice 12/15/23 Venkat Vivar DO [address] [place] [address] MEDICAL ONCOLOGY, [facility] [address] [place], [place] [id number] Medical Oncologist/Iap Displays Analyst Hematology and Oncology 12/15/23 Kwaku Martin MD [address] [place] [address] Consulting Physician Urology 12/15/23 Richard Hargrove MD [address] [place] [address] [address] [place], [place] [address] Radiation Oncologist Radiation Oncology 01/08/24 Adelso Quiñones [place] [address] [place] [address] Surgeon Urology 01/22/24 documented as of this encounter
--- OUTSIDE RECORDS SUMMARY | 2024-04-12 17:06 | XMS_ITS | Encounter Summary ---
Author Organization [facility] Healthcare Address [address] [place] [address] Care Team Providers Care Stand Up Comedian Name Role Phone Nikky Reyes MD Primary Care Provider Venkat Vivar DO Unavailable [phone] Kwaku Martin MD Unavailable [phone] Richard Hargrove MD Unavailable [phone] Adelso Quiñones MD Unavailable [phone] Reason for Visit * Episode Based Medications (Routine) - Closed Specialty Diagnoses / Procedures Referred By Leatha t Referred To Contact Diagnoses Encounter for person encountering health services Malignant neoplasm of urinary bladder, unspecified site (HCC) Venkat Vivar, [address] [place] [address] Phone: tel: fax: [address] [address] Phone: tel: fax: Referral ID Status Reason Start Date Expiration Date Visits Re quested Visits Authorized [id number] Closed 01/05/2024 03/09/2024 1 70 Encounter Details Date Type Department Care Team ([facility] st Contact Info) Description 2024 1:00 PM HYDRAULIC STRAINER OPERATOR Infusion [facility] at [address] [address] Malignant neoplasm of urinary bladder, [...] on file Legal Sex Male 2:03 AM HYDRAULIC STRAINER OPERATOR Gender Identity Not on file Sexual Orientation Not on file Occupation Industry Job Start Date Job End Date Retired Not on file Not on file Not on file documented as of this encounter Last Filed Vital Signs Vital Sign Reading Time Taken Comments Blood Pressure 103/68 2024 12:58 PM HYDRAULIC STRAINER OPERATOR Pulse 62 2024 12:58 PM HYDRAULIC STRAINER OPERATOR Temperature 36.6 ??C (97.9 ??F) 2024 12:[address] Respiratory Rate - - Oxygen Saturation 96% 2024 12:58 PM HYDRAULIC STRAINER OPERATOR Inhaled Oxygen Concentration - - Weight 88.9 kg (196 lb) 2024 12:58 PM HYDRAULIC STRAINER OPERATOR Height 184 cm (6' 0.44 ) 2024 12:58 PM HYDRAULIC STRAINER OPERATOR Body Mass Index 26.26 2024 12:58 PM HYDRAULIC STRAINER OPERATOR documented in this encounter Nursing Notes * Beulah Chavez, RN - 2024 1:00 PM CST Oncology Nursing Note [facility] Venkat Aranda is a 74 [...] Ambulatory Accompanied by: Self Discharged To: Home AULIC STRAINER OPERATOR * Beulah Chavez RN - 2024 [...] Learning: Verbalized understanding Handouts given to patient. AULIC STRAINER OPERATOR documented in this encounter Plan of [...] site (HCC) New Bag 2024 1:55 PM HYDRAULIC STRAINER OPERATOR 58 mg 117 mL/hr granisetron (KYTRIL) injection 1 mg 1 mg, intravenous, Once, On Fri02/02/24 at 1415, For 1 dose, IV administration over 30 secondsIndications:Encounter for person encountering health services,Malignant neoplasm of urinary bladder, unspecified site (HCC) Given 2024 1:40 PM HYDRAULIC STRAINER OPERATOR 1 mg documented in this encounter Orders Nursing Count Last Ordered Date First Orde red Date ONCBCN TREATMENT PARAMETERS 1 1 2024 Appointment Requests Count Last Ordered Date Fi rst Ordered Date ONCBCN RETURN CHEMO 1.5HRS 1 2024 documented in this encounter Care Teams Stand Up Comedian Relationship Specialty Start Date End Date Nikky Reyes MD [address] [facility] [address] [place] [address] PCP - General Family Practice 12/15/23 Venkat Vivar DO [address] [place] [address] MEDICAL ONCOLOGY, [address] [address] Medical Oncologist/Plastics Engineering Teacher Hematology and Oncology 12/15/23 Kwaku Martin MD 1 [place] [address] Consulting Physician Urology 12/15/23 Richard Hargrove MD [address] [address] Radiation Oncologist Radiation Oncology 01/08/24 Adelso Qu[place] [address] [address] [place] [address] Surgeon Urology 01/22/24 documented as of this encounter
--- OUTSIDE RECORDS SUMMARY | 2024-04-12 17:06 | XMS_ITS | Encounter Summary ---
Author Organization [facility] Address [address] [place] [address] Phone Care Team Providers Care Bus And Trolley Dispatcher Name Role Phone Nikky Reyes MD Primary Care Provider Venkat Vivar DO Unavailable Kwaku Martin MD Unavailable [phone] Richard Hargrove MD Unavailable [phone] Adelso Quiñones MD Unavailable [phone] Encounter Details Date Type Department Care Team (Late st Contact Info) Description 02/04/2024 Orders Only [facility] 1418 [facility] [address] [place] [address] Venkat Vivar DO 1418 [facility] [address] [place], [place] [id number] Encounter for person encountering health services (Primary [...] on file Legal Sex Male 2:03 AM 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 MANAGER Gender Identity Not on file Sexual [...] (HCC) documented in this encounter Care Teams Bus And Trolley Dispatcher Relationship Specialty Start Date End Date Nikky Reyes MD 3417 [facility] [place] 2 [place], [place] [id number] PCP - General Family Practice 12/15/23 Venkat Vivar DO 1418 [facility] MEDICAL ONCOLOGY, [facility] 180 [place] [address] Medical Oncologist/Suction Operator Hematology and Oncology 12/15/23 Kwaku Martin MD 1 [place] [address] Consulting Physician Urology 12/15/23 Richard Hargrove MD 1418 [facility] 160 [place] [address] Radiation Oncologist Radiation Oncology 01/08/24 Adelso Qu[place] [address] [address] [facility] 375 [place] [address] Surgeon Urology 01/22/24 documented as of this encounter
--- OUTSIDE RECORDS SUMMARY | 2024-04-12 17:06 | XMS_ITS | Encounter Summary ---
Author Organization [facility] Healthcare Address [address] [place] [address] Care Team Providers Care Crayon Grader Name Role Phone Nikky Reyes MD Primary Care Provider Venkat Vivar DO Unavailable [phone] Kwaku Martin MD Unavailable [phone] Richard Hargrove MD Unavailable [phone] Adelso Quiñnoes MD Unavailable [phone] Reason for Visit * Reason Comments Chemotherapy * Episode Based Medications (Routine) - Closed Specialty Diagnoses / Procedures Referred By Leatha mejia Referred To Contact Diagnoses Encounter for person encountering health services Malignant neoplasm of urinary bladder, unspecified site (HCC) Venkat Vivar DO [facility] [address] Phone: tel: fax: [address] [address] Phone: tel: fax: Referral ID Status Reason Start Date Expiration Date Visits Re quested Visits Authorized [id number] Closed 01/05/2024 03/09/2024 1 70 Encounter Details Date Type Department Care Team ([facility] st Contact Info) Description 02/05/2024 2:00 PM CAREER RESOURCE TECHNICIAN Infusion [facility] at [address] [place] [address] Malignant neoplasm of urinary [...] on file Legal Sex Male 2:03 AM CAREER RESOURCE TECHNICIAN Gender Identity Not on file Sexual Orientation Not on file Occupation Industry Job Start Date Job End Date Retired Not on file Not on file Not on file documented as of this encounter Last Filed Vital Signs Vital Sign Reading Time Taken Comments Blood Pressure 108/67 02/05/2024 1:30 PM CAREER RESOURCE TECHNICIAN Pulse 67 02/05/2024 1:30 PM CAREER RESOURCE TECHNICIAN Temperature 36.4 ??C (97.5 ??F) 02/05/2024 1:30 PM CS T Respiratory Rate 16 02/05/2024 1:30 PM CAREER RESOURCE TECHNICIAN Oxygen Saturation 96% 02/05/2024 1:30 PM CAREER RESOURCE TECHNICIAN Inhaled Oxygen Concentration - - Weight 90 kg (198 lb 6.4 oz) 02/05/2024 1:30 PM CAREER RESOURCE TECHNICIAN with shoes Height - - Body Mass Index 26.58 2024 12:58 PM CAREER RESOURCE TECHNICIAN documented in this encounter Nursing Notes * Haley Gayle, ODILON - 02/05/2024 2:00 PM CST Oncology Nursing Note [facility] Venkat Aranda is a 74 y.o. male [...] Accompanied by: Self Discharged To: Home ER RESOURCE TECHNICIAN documented in this encounter Plan of [...] site (HCC) New Bag 02/05/2024 2:04 PM CAREER RESOURCE TECHNICIAN 58 mg 117 mL/hr granisetron (KYTRIL) injection 1 mg 1 mg, intravenous, Once, On Suzanne 02/05/24 at 1415, For 1 dose, IV administration over 30 secondsIndications:Encounter for person encountering health services,Malignant neoplasm of urinary bladder, unspecified site (HCC) Given 02/05/2024 1:44 PM CAREER RESOURCE TECHNICIAN 1 mg documented in this encounter Orders Nursing Count Last Ordered Date First Orde red Date ONCBCN TREATMENT PARAMETERS 1 1 02/05/2024 Appointment Requests Count Last Ordered Date Fi rst Ordered Date ONCBCN RETURN CHEMO 1.5HRS 1 02/05/2024 documented in this encounter Care Teams Crayon Grader Relationship Specialty Start Date End Date Nikky Reyes MD [facility] [facility] [address] [place] [address] PCP - General Family Practice 12/15/23 Venkat Vivar DO 1418 [facility] MEDICAL ONCOLOGY, [facility] 180 [place] [address] Medical Oncologist/Associate Professor Of Library Media Hematology and Oncology 12/15/23 Kwaku Martin MD 1 [place] [address] Consulting Physician Urology 12/15/23 Richard Hargrove MD [facility]8 [facility] 160 [place] [address] Radiation Oncologist Radiation Oncology 01/08/24 Adelso Qu[place] [address] [address] [facility] 375 [place] [address] Surgeon Urology 01/22/24 documented as of this encounter
--- OUTSIDE RECORDS SUMMARY | 2024-04-12 17:06 | XMS_ITS | Encounter Summary ---
Author Organization [facility] Healthcare Address [address] [place] [address] Care Team Providers Care Bank Reconciliator Name Role Phone Nikky Reyes MD Primary Care Provider Venkat Vivar DO Unavailable [phone] Kwaku Martin MD Unavailable [phone] Richard Hargrove MD Unavailable [phone] Adelso Quiñones MD Unavailable [phone] Encounter Details Date Type Department Care Team (Late st Contact Info) Description 02/04/2024 1:45 PM FEATHER WASHER Treatment [facility] Medical Office Building 2 Radiation Oncology [address] [place] [address] Social History Tobacco Use Types Packs/Day Years [...] on file Legal Sex Male 2:03 AM FEATHER WASHER Gender Identity Not on file Sexual Orientation Not on file Occupation Industry Job Start Date Job End Date Retired Not on file Not on file Not on file documented as of this encounter Plan of Treatment Not on file documented as of this encounter Visit Diagnoses Not on filedocumented in this encounter Care Teams Bank Reconciliator Relationship Specialty Start Date End Date Nikky Reyes MD 3417 [facility] [address] [place] [address] PCP - General Family Practice 12/15/23 [place] [address] [place] [address] MEDICAL ONCOLOGY, [facility] 180 [place] [address] Medical Oncologist/Dispensing Audiologist Hematology and Oncology 12/15/23 Kwaku Martin MD [address] [place] [address] Consulting Physician Urology 12/15/23 [place] [address] [place] [address] 160 [place] [address] Radiation Oncologist Radiation Oncology 01/08/24 Adelso Quiñones [place] [address] [place] [address] Surgeon Urology 01/22/24 documented as of this encounter
--- OUTSIDE RECORDS SUMMARY | 2024-04-12 17:06 | XMS_ITS | Encounter Summary ---
Author Organization [facility] Healthcare Address [address] [place] [address] Care Team Providers Care Animal Behaviourist Name Role Phone Nikky Reyes MD Primary Care Provider Venkat Vivar DO Unavailable [phone] Kwaku Martin MD Unavailable [phone] Richard Hargrove MD Unavailable [phone] Adelso Quiñones MD Unavailable [phone] Encounter Details Date Type Department Care Team (Late st Contact Info) Description 2024 11:15 AM OPTICAL LATHE OPERATOR Treatment [facility] Medical Office Building 2 Radiation Oncology [address] [place], [place] [phone] Richard Hargrove MD [address] [place] [id number] Social History Tobacco Use Types Packs/Day Years [...] on file Legal Sex Male 2:03 AM OPTICAL LATHE OPERATOR Gender Identity Not on file Sexual Orientation Not on file Occupation Industry Job Start Date Job End Date Retired Not on file Not on file Not on file documented as of this encounter Plan of Treatment Not on file documented as of this encounter Visit Diagnoses Not on filedocumented in this encounter Care Teams Animal Behaviourist Relationship Specialty Start Date End Date Nikky Reyes MD [facility] [facility] [address] [place], [place] [address] PCP - General Family Practice 12/15/23 Venkat Vivar DO [address] [facility] MEDICAL ONCOLOGY, [facility] 180 [place] [address] Medical Oncologist/Edi Consultant Hematology and Oncology 12/15/23 Kwaku Martin MD 1 [place] [address] Consulting Physician Urology 12/15/23 Richard Hargrove MD [address]18 [facility] 160 [place], [place] [address] Radiation Oncologist Radiation Oncology 01/08/24 Adelso Quiñones [place] [address] [place] [address] Surgeon Urology 01/22/24 documented as of this encounter
--- OUTSIDE RECORDS SUMMARY | 2024-04-12 17:06 | XMS_ITS | Encounter Summary ---
Author Organization [facility] Healthcare Address [address] [place] [address] Care Team Providers Care Football Coach Name Role Phone Nikky Reyes MD Primary Care Provider Venkat Vivar DO Unavailable [phone] Kwaku Martin MD Unavailable [phone] Richard Hargrove MD Unavailable [phone] Adelso Quiñones MD Unavailable [phone] Encounter Details Date Type Department Care Team (Late st Contact Info) Description 02/03/2024 8:15 AM PICTURE ENGRAVER Treatment [facility] Medical Office Building 2 Radiation Oncology [address] [place] [address] Social History Tobacco Use Types Packs/Day Years [...] on file Legal Sex Male 2:03 AM PICTURE ENGRAVER Gender Identity Not on file Sexual Orientation Not on file Occupation Industry Job Start Date Job End Date Retired Not on file Not on file Not on file documented as of this encounter Plan of Treatment Not on file documented as of this encounter Visit Diagnoses Not on filedocumented in this encounter Care Teams Football Coach Relationship Specialty Start Date End Date Nikky Reyes MD [address] [facility] [address] [place] [address] PCP - General Family Practice 12/15/23 [place] [address] [place] [address] MEDICAL ONCOLOGY, [facility] 180 [place] [address] Medical Oncologist/City Constable Hematology and Oncology 12/15/23 Kwaku Martin MD [address] [place] [address] Consulting Physician Urology 12/15/23 [place] [address] [place] [address] 160 [place] [address] Radiation Oncologist Radiation Oncology 01/08/24 Adelso Quiñones [place] [address] [place] [address] Surgeon Urology 01/22/24 documented as of this encounter
--- OUTSIDE RECORDS SUMMARY | 2024-04-12 17:06 | XMS_ITS | Encounter Summary ---
Author Organization [facility] Address [address] [place] [address] Phone Care Team Providers Care Material Carrier Name Role Phone Nikky Reyes MD Primary Care Provider Venkat Vivar DO Unavailable Kwaku Martin MD Unavailable [phone] Richard Hargrove MD Unavailable [phone] Adelso Quiñones MD Unavailable [phone] Encounter Details Date Type Department Care Team (Late st Contact Info) Description 01/23/2024 Orders Only [facility] Oncology 1418 [facility] [address] [place] [address] Venkat Vivar DO 1418 [facility] [address] [place], [place] [phone] Encounter for person encountering health services (Primary [...] on file Legal Sex Male 2:03 AM CERTIFIED FORKLIFT OPERATOR Gender Identity Not on file Sexual Orientation Not on file Occupation Industry Job Start Date Job End Date Retired Not on file Not on file Not on file documented as of this encounter Plan of Treatment Not on file documented as of this encounter Results * (ABNORMAL) CBC with auto differential (2024 12:47 PM CERTIFIED FORKLIFT OPERATOR) WBC 6.8 3.8 - 9.9 K/cumm Comment:Testing performed by : [address] [address] Hgb 12.6(L) 13.0 - 17.5 g/dL JAIME Comment:Testing performed by : [address] [address] Hct 37.0(L) 38.9 - 50.3 % JAIME Comment:Testing performed by : [address] [address] Plt 185 150 - 400 K/cumm JAIME Comment:Testing performed by : [address] [address] MPV 8.9(L) 9.1 - 12.3 fL JAIME Comment:Testing performed by : [address] [address] RBC 3.89(L) 4.30 - 5.80 M/cumm JAIME Comment:Testing performed by : [address] [address] MCV 95.1 81.3 - 96.4 fL JAIME Comment:Testing performed by : [address] [address] MCH 32.4 27.1 - 33.3 pg JAIME Comment:Testing performed by : [address] [address] MCHC 34.1 32.3 - 35.7 g/dL JAIME Comment:Testing performed by : [address] [address] RDW CV 14.3 11.1 - 14.9 % JAIME Comment:Testing performed by : [address] [address] RDW SD 50.1(H) 35.7 - 48.1 fL JAIME PINEDA Comment:Testing performed by : [address] [address] NRBC abs 0.00 0.00 - 0.01 K/cumm JAIME Comment:Testing performed by : [address] [address] Blood 2024 12:4 7 PM CERTIFIED FORKLIFT OPERATOR 2024 12:49 PM CERTIFIED FORKLIFT OPERATOR Venkat Vivar DO LAB BLOOD ORDERABLES Final R esult Performing Organization Address City/State/[facility] Co de Phone Number JAIME [facility] Department [place] [address] * Comprehensive metabolic panel (2024 12:47 PM CERTIFIED FORKLIFT OPERATOR) Sodium 142 135 - 145 mmol/L Comment:Testing performed by : [address] [address] Potassium, pl 4.4 3.3 - 4.9 mmol/L JAIME Comment:Testing performed by : [address] [address] Chloride 107 97 - 110 mmol/L JAIME Comment:Testing performed by : [address] [address] CO2 27 22 - 32 mmol/L JAIME Comment:Testing performed by : [address] [address] Anion gap 8 2 - 15 mmol/L JAIEM Comment:Testing performed by : [address] [address] BUN 15 6 - 25 mg/dL JAIME Comment:Testing performed by : [address] [address] Creatinine 0.80 0.80 - 1.30 mg/dL JAIME PINEDA Comment:Testing performed by : [address] [address] Glucose 108 70 - 199 mg/dL JAIME [...] last revised 2022. Testing performed by: [address] [address] Calcium 9.0 8.5 - 10.3 mg/dL JAIME Comment:Testing performed by : [address] [address] Bilirubin, total 0.4 0.1 - 1.2 mg/dL JAIME Comment:Testing performed by : [address] [address] Protein, pl 7.2 6.5 - 8.5 g/dL JAIME Comment:Testing performed by : [address] [address] Albumin 4.1 3.5 - 5.0 g/dL JAIME Comment:Testing performed by : [address] [address] Alk phos 71 40 - 130 Units/L JAIME Comment:Testing performed by : [address] [address] ALT 15 7 - 55 Units/L JAIME Comment:Testing performed by : [address] [address] AST 16 10 - 50 Units/L JAIME Comment:Testing performed by : [address] [address] Blood 2024 12:4 7 PM CERTIFIED FORKLIFT OPERATOR 2024 12:49 PM CERTIFIED FORKLIFT OPERATOR Venkat Vivar DO LAB BLOOD ORDERABLES Final R esult JAIME 7[address] [facility] Department [place] [address] documented in this encounter Visit Diagnoses Diagnosis Encounter for person encountering health services- Primary Malignant neoplasm of urinary bladder, unspecified site (HCC) documented in this encounter Orders Appointment Requests Count Last Ordered Date Fi rst Ordered Date ONCBCN LAB APPOINTMENT 1 2024 ONCBCN RETURN CHEMO 1.5HRS 1 2024 documented in this encounter Care Teams Material Carrier Relationship Specialty Start Date End Date Nikky Reyes MD 3417 [facility] [place] 2 [place] [address] PCP - General Family Practice 12/15/23 [place] [address] [place] [address] MEDICAL ONCOLOGY, [facility] 180 [place] [address] Medical Oncologist/Burglar Alarm Assembler Hematology and Oncology 12/15/23 Kwaku Martin MD 1 [place] [address] Consulting Physician Urology 12/15/23 Richard Hargrove MD [address] [place] [address] 160 [place] [address] Radiation Oncologist Radiation Oncology 01/08/24 Adelso Quiñones [place] [address] [facility] 375 [place] [address] Surgeon Urology 01/22/24 documented as of this encounter
--- OUTSIDE RECORDS SUMMARY | 2024-04-12 17:07 | XMS_ITS | Encounter Summary ---
Author Organization [facility] Healthcare Address [address] [place] [address] Care Team Providers Care Circus Trainer Name Role Phone Nikky Reyes MD Primary Care Provider Venkat Vivar DO Unavailable [phone] Kwaku Martin MD Unavailable [phone] Richard Hargrove MD Unavailable [phone] Encounter Details Date Type Department Care Team (Late st Contact Info) Description 01/09/2024 Telephone [facility] Medical Office Building 2 Radiation Oncology [address] [place] [address] Tana Denny Social History Tobacco Use [...] file Legal Sex Male 2:03 AM AUTO PARTS COUNTER PERSON Gender Identity Not on file Sexual Orientation [...] on filedocumented in this encounter Care Teams Circus Trainer Relationship Specialty Start Date End Date Nikky Reyes MD 3417 [facility] 2 [place] [address] PCP - General Family Practice 12/15/23 Venkat Vivar DO 1418 [facility] MEDICAL ONCOLOGY, [facility] 180 [place] [address] Medical Oncologist/Overage Shortage And Damage Clerk Hematology and Oncology 12/15/23 Kwaku Martin MD [address] [place] [address] Consulting Physician Urology 12/15/23 Richard Hargrove MD [address] [place] [address] 160 [place] [address] Radiation Oncologist Radiation Oncology 01/08/24 documented as of this encounter
--- OUTSIDE RECORDS SUMMARY | 2024-04-12 17:07 | XMS_ITS | Encounter Summary ---
Author Organization [facility] Address [address] [place] [address] Phone Care Team Providers Care Airplane Captain Name Role Phone Nikky Reyes MD Primary Care Provider Venkat Vivar DO Unavailable [phone] Kwaku Martin MD Unavailable [phone] Richard Hargrove MD Unavailable Encounter Details Date Type Department Care Team (Late st Contact Info) Description 01/08/2024 Telephone [facility] Oncology [address] [place] [address] [place] [phone] Dora Wheat, ELBERT Social History Tobacco [...] on file Legal Sex Male 2:03 AM REFERRAL MANAGEMENT LIAISON Gender Identity Not on file Sexual Orientation Not on file Occupation Industry Job Start Date Job End Date Retired Not on file Not on file Not on file documented as of this encounter Miscellaneous Notes * Telephone Encounter - Mary Alice, Dora, [employer] - 01/08/2024 4:23 PM CDT Returned call [...] and more frequent. Pt requesting callback at [phone]. documented in this encounter Plan of Treatment Not on file documented as of this encounter Visit Diagnoses Not on filedocumented in this encounter Care Teams Airplane Captain Relationship Specialty Start Date End Date Nikky Reyes MD [address] [place] [address] [place] [address] [place] [address] PCP - General Family Practice 12/15/23 Venkat Vivar DO 1418 [facility] MEDICAL ONCOLOGY, [address] [address] Medical Oncologist/Casing Material Weigher Hematology and Oncology 12/15/23 Kwaku Martin MD [address] [place] [address] Consulting Physician Urology 12/15/23 Richard Hargrove MD [address] [place] [address] [place] [address] Radiation Oncologist Radiation Oncology 01/08/24 documented as of this encounter
--- OUTSIDE RECORDS SUMMARY | 2024-04-12 17:07 | XMS_ITS | Encounter Summary ---
Author Organization [facility] Address [address] [place] [address] Phone Care Team Providers Care Clinic Lead Name Role Phone Nikky Reyes MD Primary Care Provider Mitchell Vivar DO Unavailable Kwaku Martin MD Unavailable [phone] Richard Hargrove MD Unavailable [phone] Encounter Details Date Type Department Care Team (Late st Contact Info) Description 01/09/2024 Orders Only [facility] [address] [place] [address] Mitchell Vivar, DO [address] [facility] [address] [place] [address] Malignant neoplasm of urinary bladder, [...] on file Legal Sex Male 2:03 AM FISHER TERRAPIN Gender Identity Not on file Sexual Orientation [...] AM CDT 01/09/2024 10:04 AM CDT Narrative [facility] - 01/23/2024 2:15 PM CDT EPIC results best viewed via link to PDF [facility] Pathology Consult Service [address], [place] [address] Note to Patients: This report [...] REPORT * Consult Report * [facility] is providing an additional review of previously collected tissue. FINAL Patient Name: ??MITCHELL RODRIGUEZ Address: ??[address] [place] [address], [place], [place] ??[address] Gender: ??M : ??1950 (Age: 73) Hospital #: ??[id number] Patient Type: ??[facility] Location: ??UNKNOWN Taken: ??01/09/2024 Received: ??01/09/2024 Accessioned: ??01/09/2024 Reported: ??01/23/2024 Physician(s): Dr. Mitchell Vivar, D.O. [facility] Department of Pathology [address] [place] [id number] P: [phone] F: [phone] Diagnosis: Consult material received from [place], [place] ([id number]; 12/05/2023) A. ??Bladder, superficial tumor, resection ? [...] Mitchell Vivar was provided a report via [employer] on 01/23/24 at 2 pm. Microscopic Description and Comment: Unless gross-only is specified, the final diagnosis for each specimen is based on a microscopic examination of each tissue sample. Richard Mendez M.D. History: The patient is a 73-year-old man with bladder tumors. Materials Received: Received for review are ten slides labeled [id number], accompanied by a corresponding pathology report. The material originates from [place], [place]. Additionally received ten unstained slides labeled [id number] (A3) for additional materials on 01/21/2024. The material originates from [place], [place]. Selected slide(s) may be digitally scanned for our files, and all materials are returned to the referring institution, along with a copy of our final report. Any testing required for diagnostic purposes was performed in the Department of Pathology and Immunology at [facility], [address] [place] [id number] CLIA # [id number] The performance characteristics of the testing cited in this report (if any) were determined by the ??[facility] Department of Pathology and Immunology [facility], as part of an ongoing quality controller program and in compliance with federally mandated [...] by the [facility], [facility] Department of Pathology and Immunology. ??It has not been cleared or approved by the U.S. Food and Drug Administration. ??Any test designated as LDT was developed and its performance characteristics determined by [facility]. It has not been cleared or approved by the FDA. This test is used for clinical purposes and should not be regarded as investigational or for research. Report images and/or scanned reports, if included, only viewable in PDF version of report. Mitchell Vivar DO LAB PATHOLOGY ORDERABLES Fin al Result [facility] [address] [place] [address] documented in this encounter Visit Diagnoses Diagnosis Malignant neoplasm of urinary bladder, unspecified site (HCC) documented in this encounter Care Teams Clinic Lead Relationship Specialty Start Date End Date Nikky Reyes MD [address] [facility] OR [address] [place], [place] [id number] PCP - General Family Practice 12/15/23 Mitchell Vivar DO 1418 [facility] MEDICAL ONCOLOGY, [facility] 180 [place], [place] [id number] Medical Oncologist/Mechanic Assistant Hematology and Oncology 12/15/23 Kwaku Martin MD 1 [place] [address] Consulting Physician Urology 12/15/23 Richard Hargrove MD 14[address] [facility] [address] [place] [address] Radiation Oncologist Radiation Oncology 01/08/24 documented as of this encounter
--- OUTSIDE RECORDS SUMMARY | 2024-04-12 17:07 | XMS_ITS | Encounter Summary ---
Author Organization [facility] Address [address] [place] [address] Phone Care Team Providers Care Plastic Molder Name Role Phone Nikky Reyes MD Primary Care Provider Mitchell Vivar DO Unavailable Kwaku Martin MD Unavailable [phone] Encounter Details Date Type Department Care Team (Late st Contact Info) Description 01/05/2024 Orders Only [facility] Physicians [facility] Oncology [address] [facility] [address] [place] [address] Mitchell Vivar DO [address] [facility] [address] [place] [address] Malignant neoplasm of urinary bladder, [...] on file 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 Gender Identity Not on file Sexual Orientation Not on file documented as of this encounter Plan of Treatment Not on file documented as of this encounter Results * Surgical pathology (01/09/2024 10:04 AM CDT) Tissue (Miscellaneous) 01/09/2024 10:04 AM CDT 01/09/2024 10:04 AM CDT Narrative [facility] - 01/23/2024 2:15 PM CDT EPIC results best viewed via link to PDF [facility] Pathology Consult Service [address], [place] [address] Note to Patients: This report [...] SURGICAL PATHOLOGY REPORT * Consult Report * [facility] is providing an additional review of previously collected tissue. FINAL Patient Name: ??MITCHELL RODRIGUEZ Address: ??[address] [facility], ?[place], [place] ??[address] Gender: ??M : ??1950 (Age: 73) Hospital #: ??[id number] Patient Type: ??[facility] Location: ??UNKNOWN Taken: ??01/09/2024 Received: ??01/09/2024 Accessioned: ??01/09/2024 Reported: ??01/23/2024 Physician(s): [facility] Department of Pathology [address] [place] [address] P: [phone] F: [phone] Diagnosis: Consult material received from [place], [place] ([id number]; 12/05/2023) A. ??Bladder, superficial tumor, resection ? [...] Mitchell Vivar was provided a report via [employer] on 01/23/24 at 2 pm. Microscopic Description and Comment: Unless gross-only is specified, the final diagnosis for each specimen is based on a microscopic examination of each tissue sample. Richard Mendez M.D. History: The patient is a 73-year-old man with bladder tumors. Materials Received: Received for review are ten slides labeled [id number], accompanied by a corresponding pathology report. The material originates from [facility] ? [place], [place]. Additionally received ten unstained slides labeled [id number] (A3) for additional materials on 01/21/2024. The material originates from [place], [place]. Selected slide(s) may be digitally scanned for our files, and all materials are returned to the referring institution, along with a copy of our final report. Any testing required for diagnostic purposes was performed in the Department of Pathology and Immunology at [facility], [address] [place] [address] CLIA # [id number] The performance characteristics of the testing cited in this report (if any) were determined by the ??[facility] Department of Pathology and Immunology [facility], as part of an ongoing coding quality analyst program and in compliance with federally mandated [...] characteristics determined by the [facility], [facility] Department of Pathology and Immunology. ??It has not been cleared or approved by the U.S. Food and Drug Administration. ??Any test designated as LDT was developed and its performance characteristics determined by [facility]. It has not been cleared or approved by the FDA. This test is used for clinical purposes and should not be regarded as investigational or for research. Report images and/or scanned reports, if included, only viewable in PDF version of report. Mitchell Vivar DO LAB PATHOLOGY ORDERABLES Fin al Result [facility] [address] [place] [address] documented in this encounter Visit Diagnoses Diagnosis Malignant neoplasm of urinary bladder, unspecified site (HCC)- Primary Malignant neoplasm of urinary bladder, unspecified site (HCC) documented in this encounter Care Teams Plastic Molder Relationship Specialty Start Date End Date Nikky Reyes MD [address] [facility] [address] [place] [address] PCP - General Family Practice 12/15/23 Mitchell Vivar DO 1418 [facility] MEDICAL ONCOLOGY, [address] [address] Medical Oncologist/Paperhanger Contractor Hematology and Oncology 12/15/23 Kwaku Martin MD 1 [place] [address] Consulting Physician Urology 12/15/23 documented as of this encounter
--- OUTSIDE RECORDS SUMMARY | 2024-04-12 17:07 | XMS_ITS | Encounter Summary ---
Author Organization [facility] Address [address] [place] [address] Phone Care Team Providers Care Designated Broker Name Role Phone Nikky Reyes MD Primary Care Provider Mitchell Martinez DO Unavailable [phone] Kwaku Martin MD Unavailable [phone] Reason for Referral * Consultation (Routine) - Closed Specialty Diagnoses / Procedures Referred By Conthiral t Referred To Contact Radiation Oncology Diagnoses Malignant neoplasm of urinary bladder, unspecified site (HCC) Mitchell Martinez DO [facility] [place] [address] Phone: tel: fax: Richard Hargrove MD [address] [place] [address] Phone: tel: fax: Referral ID Status Reason Start Date Expiration Date V isits Requested Visits Authorized [id number] Closed Specialty Services Required 01/05/2024 02/05/2024 1 1 Question Answer Is this referral for Breast Health Multi-Disciplinary Clinic? No Does the patient have a diagnosis of a Head and Neck cancer? No Please select the performing region: [facility] [[id number]] Please select the performing department: [facility] 2 RAD ONC [[id number]] To provider: RICHARD HARGROVE [[id number]] # of visits: 1 Comments Refer for chemo/rads for Bladder cancer Reason for Visit * Reason Comments Consult * Consultation (Routine) - Closed Specialty Diagnoses / Procedures Referred By Contac t Referred To Contact Oncology Diagnoses Malignant neoplasm of urinary bladder, unspecified site (HCC) Referral, Self [facility] Oncology [address] [facility] [address] 7th [place] [address] [place] [address] Phone: tel: fax: Referral ID Status Reason Start Date Expiration Date V isits Requested Visits Authorized [id number] Closed Specialty Services Required 12/15/2023 01/13/2025 1 1 Encounter Details Date Type Department Care Team (Late st Contact Info) Description 01/05/2024 3:30 PM CDT Office Visit [facility] Oncology [facility] [address] [phone] Mitchell Martinez DO [address] [facility] [address] [place] [address] Malignant neoplasm of urinary bladder, unspecified site [...] on file 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 male. Primary Care Provider: Nikky eRyes MD Assessment/Plan Newly diagnosed muscle invasive bladder [...] Arm; Ordering location: IM Onc/Hem/BMT; Treatment location: [facility]; Future - Return Chemo Appt Request - 90 Min First treatment? Yes; Ordering location: IM Onc/Hem/BMT; Treatment location: [facility]; Future - Comprehensive metabolic panel; Future - CBC with auto differential; Future - Lab Draw Appt Request Arm Draw or Central Line Draw? Arm; Ordering location: IM Onc/Hem/BMT; Treatment location: [facility]; Future - Return Chemo Appt Request - 90 Min First treatment? No; Ordering location: IM Onc/Hem/BMT; Treatment location: [facility]; Future - Comprehensive metabolic panel; Future - CBC with auto differential; Future - Lab Draw Appt Request Arm Draw or Central Line Draw? Arm; Ordering location: [facility] IM Onc/Hem/BMT; Treatment location: [facility]; Future - Return Chemo Appt Request - 90 Min First treatment? No; Ordering location: IM Onc/Hem/BMT; Treatment location: [facility]; Future - Comprehensive metabolic panel; Future - CBC with auto differential; Future - Lab Draw Appt Request Arm Draw or Central Line Draw? Arm; Ordering location: IM Onc/Hem/BMT; Treatment location: [facility]; Future - Return Chemo Appt Request - 90 Min First treatment? No; Ordering location: IM Onc/Hem/BMT; Treatment location: [facility]; Future - Comprehensive metabolic panel; Future - CBC with auto differential; Future - Lab Draw Appt Request Arm Draw or Central Line Draw? Arm; Ordering location: IM Onc/Hem/BMT; Treatment location: [facility]; Future - Clinic Appointment Request Chemo follow up; MITCHELL MARTINEZ MD; Clinic Appointment Location: [facility] IM ONC [facility] 180; Future - Return Chemo Appt Request - 90 Min First treatment? No; Ordering location: IM Onc/Hem/BMT; Treatment location: [facility]; Future - Comprehensive metabolic panel; Future - CBC with auto differential; Future - Ambulatory referral to Radiation Oncology; Future Encounter for person encountering health services - Lab Draw Appt Request Arm Draw or Central Line Draw? Arm; Ordering location: IM Onc/Hem/BMT; Treatment location: [facility]; Future - Return Chemo Appt Request - 90 Min First treatment? Yes; Ordering location: IM Onc/Hem/BMT; Treatment location: [facility]; Future - Comprehensive metabolic panel; Future - CBC with auto differential; Future - Lab Draw Appt Request Arm Draw or Central Line Draw? Arm; Ordering location: IM Onc/Hem/BMT; Treatment location: [facility]; Future - Return Chemo Appt Request - 90 Min First treatment? No; Ordering location: [facility] IM Onc/Hem/BMT; Treatment location: [facility]; Future - Comprehensive metabolic panel; Future - CBC with auto differential; Future - Lab Draw Appt Request Arm Draw or Central Line Draw? Arm; Ordering location: IM Onc/Hem/BMT; Treatment location: [facility]; Future - Return Chemo Appt Request - 90 Min First treatment? No; Ordering location: IM Onc/Hem/BMT; Treatment location: [facility]; Future - Comprehensive metabolic panel; Future - CBC with auto differential; Future - Lab Draw Appt Request Arm Draw or Central Line Draw? Arm; Ordering location: IM Onc/Hem/BMT; Treatment location: [facility]; Future - Return Chemo Appt Request - 90 Min First treatment? No; Ordering location: IM Onc/Hem/BMT; Treatment location: [facility]; Future - Comprehensive metabolic panel; Future - CBC with auto differential; Future - Lab Draw Appt Request Arm Draw or Central Line Draw? Arm; Ordering location: IM Onc/Hem/BMT; Treatment location: [facility]; Future - Clinic Appointment Request Chemo follow up; MITCHELL MARTINEZ MD; Clinic Appointment Location: [facility] IM ONC [facility] 180; Future - Return Chemo Appt Request - 90 Min First treatment? 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 [...] RN - 01/05/2024 3:30 PM CDT [facility] Educated: Who educated?: [...] - 01/05/2024 3:30 PM CDT [facility]JIT ONC- [facility] Referral Patient: Mitchell Aranda : 1950 Patient aware of referral? Yes Contact: patient Phone number for contact: Cell Referral Type: Nutrition education for start of chemotherapy Patient needs referral to manager agency: No Case of ensure provided: No documented in this encounter Plan of Treatment Scheduled Referrals Name Type Priority Associated Diagnoses Orde r Schedule Ambulatory referral to Radiation Oncology Outpatient Referral Routine Malignant neoplasm of urinary bladder, unspecified site (HCC) Expected: 01/12/2024 (Approximate), Expires: 01/04/2025 documented as of this encounter Results * (ABNORMAL) CBC with auto differential (02/16/2024 7:36 AM ADULT PROTECTIVE CASEWORKER) WBC 5.6 3.8 - 9.9 K/cumm Comment:Testing performed by : [address] [address] Hgb 11.5(L) 13.0 - 17.5 g/dL JAIME Comment:Testing performed by : [address], [address] Hct 33.3(L) 38.9 - 50.3 % JAIME Comment:Testing performed by : [address] [address] Plt 97(L) 150 - 400 K/cumm JAIME Comment:Testing performed by : [address] [address] MPV 9.1 9.1 - 12.3 fL JAIME Comment:Testing performed by : [address] [address] RBC 3.48(L) 4.30 - 5.80 M/cumm JAIME Comment:Testing performed by : [address] [address] MCV 95.7 81.3 - 96.4 fL JAIME Comment:Testing performed by : [address] [address] MCH 33.0 27.1 - 33.3 pg JAIME Comment:Testing performed by : [address] [address] MCHC 34.5 32.3 - 35.7 g/dL JAIME Comment:Testing performed by : [address] [address] RDW CV 14.3 11.1 - 14.9 % JAIME Comment:Testing performed by : [address] [address] RDW SD 47.7 35.7 - 48.1 fL JAIME PINEDA Comment:Testing performed by : [address] [address] NRBC abs 0.00 0.00 - 0.01 K/cumm JAIME PINEDA Comment:Testing performed by : [address] [address] Blood 02/16/2024 7:36 AM ADULT PROTECTIVE CASEWORKER 02/16/2024 7:42 AM ADULT PROTECTIVE CASEWORKER us Mitchell Martinez DO LAB BLOOD ORDERABLES Final R esult JAIME PINEDA [facility] Department [place] [address] * Comprehensive metabolic panel (02/16/2024 7:36 AM ADULT PROTECTIVE CASEWORKER) Sodium 142 135 - 145 mmol/L Comment:Testing performed by : [address] [address] Potassium, pl 4.2 3.3 - 4.9 mmol/L JAIME PINEDA Comment:Testing performed by : [address] [address] Chloride 105 97 - 110 mmol/L JAIME Comment:Testing performed by : [address] [address] CO2 28 22 - 32 mmol/L JAIME Comment:Testing performed by : [address] [address] Anion gap 9 2 - 15 mmol/L JAIME Comment:Testing performed by : [address] [address] BUN 15 6 - 25 mg/dL JAIME Comment:Testing performed by : [address] [address] Creatinine 1.00 0.80 - 1.30 mg/dL JAIME PINEDA Comment:Testing performed by : [address], [address] Glucose 111 70 - 199 mg/dL JAIME PINEDA Comment: Interpretive Data Fasting glucose >/= 126 [...] was last revised 2022. Testing performed by: [address] [address] Calcium 8.9 8.5 - 10.3 mg/dL JAIME Comment:Testing performed by : [address] [address] Bilirubin, total 0.7 0.1 - 1.2 mg/dL JAIME Comment:Testing performed by : [address] [address] Protein, pl 7.2 6.5 - 8.5 g/dL JAIME Comment:Testing performed by : [address] [address] Albumin 3.9 3.5 - 5.0 g/dL JAIME Comment:Testing performed by : [address] [address] Alk phos 73 40 - 130 Units/L JAIME Comment:Testing performed by : [address] [address] ALT 16 7 - 55 Units/L JAIME Comment:Testing performed by : [address] [address] AST 16 10 - 50 Units/L [facility] Comment:Testing performed by : [address] [address] Blood 02/16/2024 7:36 AM ADULT PROTECTIVE CASEWORKER 02/16/2024 7:42 AM ADULT PROTECTIVE CASEWORKER Mitchell Martinez DO LAB BLOOD ORDERABLES Final R esult JAIME [address] [facility] Department [place] [address] * (ABNORMAL) CBC with auto differential (02/12/2024 1:17 PM ADULT PROTECTIVE CASEWORKER) [facility] Signature WBC 5.6 3.8 - 9.9 K/cumm Comment:Testing performed by : [address] [address] Hgb 11.8(L) 13.0 - 17.5 g/dL JAIME Comment:Testing performed by : [address] [address] Hct 34.3(L) 38.9 - 50.3 % JAIME Comment:Testing performed by : [address] [address] Plt 122(L) 150 - 400 K/cumm JAIME Comment:Testing performed by : [address] [address] MPV 8.9(L) 9.1 - 12.3 fL JAIME Comment:Testing performed by : [address] [address] RBC 3.60(L) 4.30 - 5.80 M/cumm JAIME Comment:Testing performed by : [address] [address] MCV 95.3 81.3 - 96.4 fL JAIME Comment:Testing performed by : [address] [address] MCH 32.8 27.1 - 33.3 pg JAIME Comment:Testing performed by : [address] [address] MCHC 34.4 32.3 - 35.7 g/dL JAIME Comment:Testing performed by : [address] [address] RDW CV 14.1 11.1 - 14.9 % JAIME Comment:Testing performed by : [address] [address] RDW SD 48.1 35.7 - 48.1 fL JAIME PINEDA Comment:Testing performed by : [address] [address] NRBC abs 0.00 0.00 - 0.01 K/cumm JAIME PINEDA Comment:Testing performed by : [address] [address] Blood 02/12/2024 1:17 PM ADULT PROTECTIVE CASEWORKER 02/12/2024 1:24 PM ADULT PROTECTIVE CASEWORKER us Mitchell Martinez DO LAB BLOOD ORDERABLES Final R esult JAIME [address] [facility] Department of Laboratories [place], [place] [id number] * Comprehensive metabolic panel (02/12/2024 1:17 PM ADULT PROTECTIVE CASEWORKER) Sodium 138 135 - 145 mmol/L Comment:Testing performed by : [address] [address] Potassium, pl 4.6 3.3 - 4.9 mmol/L JAIME Comment:Testing performed by : [address] [address] Chloride 103 97 - 110 mmol/L AJIME Comment:Testing performed by : [address] [address] CO2 28 22 - 32 mmol/L JAIME Comment:Testing performed by : [address] [address] Anion gap 7 2 - 15 mmol/L JAIME Comment:Testing performed by : [address] [address] BUN 17 6 - 25 mg/dL JAIME Comment:Testing performed by : [address] [address] Creatinine 0.80 0.80 - 1.30 mg/dL JAIME Comment:Testing performed by : [address] [address] Glucose 98 70 - 199 mg/dL JAIME [...] was last revised 2022. Testing performed by: [address] [address] Calcium 8.9 8.5 - 10.3 mg/dL JAIME Comment:Testing performed by : [address] [address] Bilirubin, total 0.5 0.1 - 1.2 mg/dL JAIME Comment:Testing performed by : [address] [address] Protein, pl 7.0 6.5 - 8.5 g/dL JAIME Comment:Testing performed by : [address] [address] Albumin 3.9 3.5 - 5.0 g/dL JAIME Comment:Testing performed by : [address] [address] Alk phos 69 40 - 130 Units/L JAIME Comment:Testing performed by : [address] [address] ALT 14 7 - 55 Units/L JAIME Comment:Testing performed by : [address] [address] AST 14 10 - 50 Units/L JAIME Comment:Testing performed by : [address] [address] Blood 02/12/2024 1:17 PM ADULT PROTECTIVE CASEWORKER 02/12/2024 1:24 PM ADULT PROTECTIVE CASEWORKER us Mitchell Martinez DO LAB BLOOD ORDERABLES Final R esult JAIME [address] Department [place] [address] * (ABNORMAL) CBC with auto differential (02/09/2024 1:26 PM ADULT PROTECTIVE CASEWORKER) [facility] WBC 4.9 3.8 - 9.9 K/cumm Comment:Testing performed by : [address] [address] Hgb 12.0(L) 13.0 - 17.5 g/dL JAIME Comment:Testing performed by : [address] [address] Hct 34.5(L) 38.9 - 50.3 % JAIME Comment:Testing performed by : [address] [address] Plt 166 150 - 400 K/cumm JAIME Comment:Testing performed by : [address] [address] MPV 8.9(L) 9.1 - 12.3 fL JAIME Comment:Testing performed by : [address] [address] RBC 3.67(L) 4.30 - 5.80 M/cumm JAIME Comment:Testing performed by : [address] [address] MCV 94.0 81.3 - 96.4 fL JAIME Comment:Testing performed by : [address] [address] MCH 32.7 27.1 - 33.3 pg JAIME Comment:Testing performed by : [address] [address] MCHC 34.8 32.3 - 35.7 g/dL JAIME Comment:Testing performed by : [address] [address] RDW CV 13.9 11.1 - 14.9 % JAIME Comment:Testing performed by : [address] [address] RDW SD 47.8 35.7 - 48.1 fL JAIME Comment:Testing performed by : [address] [place]., [address] NRBC abs 0.00 0.00 - 0.01 K/cumm JAIME Comment:Testing performed by : [address] [address] Blood 02/09/2024 1:26 PM ADULT PROTECTIVE CASEWORKER 02/09/2024 1:33 PM ADULT PROTECTIVE CASEWORKER Mitchell Martinez DO LAB BLOOD ORDERABLES Final R esult JAIME [address] [facility] Department [place] [address] * Comprehensive metabolic panel (02/09/2024 1:26 PM ADULT PROTECTIVE CASEWORKER) Sodium 139 135 - 145 mmol/L Comment:Testing performed by : [address] [address] Potassium, pl 3.8 3.3 - 4.9 mmol/L JAIME Comment:Testing performed by : [address] [address] Chloride 103 97 - 110 mmol/L JAIME Comment:Testing performed by : [address] [address] CO2 28 22 - 32 mmol/L JAIME Comment:Testing performed by : [address] [address] Anion gap 8 2 - 15 mmol/L JAIME Comment:Testing performed by : [address] [address] BUN 14 6 - 25 mg/dL JAIME Comment:Testing performed by : [address] [address] Creatinine 0.80 0.80 - 1.30 mg/dL JAIME Comment:Testing performed by : [address] [address] Glucose 102 70 - 199 mg/dL JAIME [...] was last revised 2022. Testing performed by: [address] [address] Calcium 8.9 8.5 - 10.3 mg/dL JAIME Comment:Testing performed by : [address] [address] Bilirubin, total 0.5 0.1 - 1.2 mg/dL JAIME Comment:Testing performed by : [address] [address] Protein, pl 7.2 6.5 - 8.5 g/dL JAIME Comment:Testing performed by : [address] [address] Albumin 4.1 3.5 - 5.0 g/dL JAIME Comment:Testing performed by : [address] [address] Alk phos 70 40 - 130 Units/L JAIME Comment:Testing performed by : [address] [address] ALT 15 7 - 55 Units/L JAIME Comment:Testing performed by : [address] [address] AST 16 10 - 50 Units/L JAIME Comment:Testing performed by : [address] [address] Blood 02/09/2024 1:26 PM ADULT PROTECTIVE CASEWORKER 02/09/2024 1:33 PM ADULT PROTECTIVE CASEWORKER us Mitchell Martinez DO LAB BLOOD ORDERABLES Final R esult JAMIE [address] [facility] Department of Laboratories [place], [place] [id number] * (ABNORMAL) CBC with auto differential (02/05/2024 1:18 PM ADULT PROTECTIVE CASEWORKER) [facility] WBC 6.0 3.8 - 9.9 K/cumm Comment:Testing performed by : [address] [address] Hgb 11.5(L) 13.0 - 17.5 g/dL JAIME Comment:Testing performed by : [address], [address] Hct 33.3(L) 38.9 - 50.3 % JAIME Comment:Testing performed by : [address], [address] Plt 173 150 - 400 K/cumm JAIME Comment:Testing performed by : [address], [address] MPV 8.9(L) 9.1 - 12.3 fL JAIME Comment:Testing performed by : [address], [address] RBC 3.52(L) 4.30 - 5.80 M/cumm JAIME Comment:Testing performed by : [address], [address] MCV 94.6 81.3 - 96.4 fL JAIME Comment:Testing performed by : [address], [address] MCH 32.7 27.1 - 33.3 pg JAIME Comment:Testing performed by : [address], [address] MCHC 34.5 32.3 - 35.7 g/dL JAIME Comment:Testing performed by : [address], [address] RDW CV 14.2 11.1 - 14.9 % JAIME Comment:Testing performed by : [address], [address] RDW SD 48.6(H) 35.7 - 48.1 fL JAIME Comment:Testing performed by : [address], [address] NRBC abs 0.00 0.00 - 0.01 K/cumm JAIME Comment:Testing performed by : [address] [address] Blood 02/05/2024 1:18 PM ADULT PROTECTIVE CASEWORKER 02/05/2024 1:19 PM ADULT PROTECTIVE CASEWORKER Mitchell Martinez DO LAB BLOOD ORDERABLES Final R esult JAIME [address] [facility] Department [place] [address] * Comprehensive metabolic panel (02/05/2024 1:18 PM ADULT PROTECTIVE CASEWORKER) Sodium 140 135 - 145 mmol/L Comment:Testing performed by : [address] [address] Potassium, pl 4.2 3.3 - 4.9 mmol/L JAIME Comment:Testing performed by : [address] [address] Chloride 105 97 - 110 mmol/L JAIME Comment:Testing performed by : [address] [address] CO2 27 22 - 32 mmol/L JAIME Comment:Testing performed by : [address] [address] Anion gap 8 2 - 15 mmol/L JAIME Comment:Testing performed by : [address] [address] BUN 15 6 - 25 mg/dL JAIME Comment:Testing performed by : [address] [address] Creatinine 0.80 0.80 - 1.30 mg/dL JAIME Comment:Testing performed by : [address] [address] Glucose 100 70 - 199 mg/dL JAIME [...] revised 2022. Testing performed by: [facility], [address] [place] [address]., [address] Calcium 8.8 8.5 - 10.3 mg/dL JAIME Comment:Testing performed by : [address] [address] Bilirubin, total 0.4 0.1 - 1.2 mg/dL JAIME Comment:Testing performed by : [address] [address] Protein, pl 6.8 6.5 - 8.5 g/dL JAIME Comment:Testing performed by : [address] [address] Albumin 3.9 3.5 - 5.0 g/dL JAIME Comment:Testing performed by : [address] [address] Alk phos 68 40 - 130 Units/L JAIME Comment:Testing performed by : [address] [address] ALT 15 7 - 55 Units/L JAIME Comment:Testing performed by : [address] [address] AST 15 10 - 50 Units/L JAIME Comment:Testing performed by : [address] [address] Blood 02/05/2024 1:18 PM ADULT PROTECTIVE CASEWORKER 02/05/2024 1:19 PM ADULT PROTECTIVE CASEWORKER Mitchell Martinez DO LAB BLOOD ORDERABLES Final R esult JAIME PINEDA [address] [facility] Department [place] [address] documented in this encounter Visit Diagnoses Diagnosis [...] 04/06/2023 documented in this encounter Care Teams Designated Broker Relationship Specialty Start Date End Date Nikky Reyes MD [address] [facility] [address] [address] [place] [address] PCP - General Family Practice 12/15/23 Mitchell Martinez DO [address] [place] [address] MEDICAL ONCOLOGY, [facility] [address] [place] [address] Medical Oncologist/Poultry Dressing Worker Hematology and Oncology 12/15/23 Kwaku Martin MD [address] [place] [address] Consulting Physician Urology 12/15/23 documented as of this encounter
--- OUTSIDE RECORDS SUMMARY | 2024-04-12 17:07 | XMS_ITS | Encounter Summary ---
Author Organization [facility] Healthcare Address [address] [place] [address] Care Team Providers Care Welder/Fitter Name Role Phone Nikky Reyes MD Primary Care Provider Venkat Vivar DO Unavailable [phone] Kwaku Martin MD Unavailable [phone] Richard Hargrove MD Unavailable [phone] Adelso Quiñones MD Unavailable [phone] Reason for Visit * Reason Comments Consult * Consultation (Routine) - Closed Specialty Diagnoses / Procedures Referred By Leatha t Referred To Contact Radiation Oncology Diagnoses Malignant neoplasm of urinary bladder, unspecified site (HCC) Venkat Vivar DO [facility] [address] Phone: tel: fax: Richard Hargrove MD [facility] [address] [address] Phone: tel: fax: Referral ID Status Reason Start Date Expiration Date V isits Requested Visits Authorized [id number] Closed Specialty Services Required 01/05/2024 02/05/2024 1 1 Encounter Details Date Type Department Care Team (Late st Contact Info) Description 01/22/2024 1:00 PM CDT Consult [facility] Medical Office Building 2 Radiation Oncology [address] [place] [address] Richard Hargrove MD [address] [id number] Malignant neoplasm of urinary bladder, unspecified site [...] on file Legal 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 Gender Identity Not on file Sexual Orientation [...] User Date and Time SALENA JO RN [[id number]] 01/22/2024 1:13 PM REVIEW OF SYSTEM Except [...] values below: 12/05/23 pathology report Imaging per [facility] ASSESSMENT/PLAN: 73 y.o.male with MIBC is [...] 2023 documented in this encounter Care Teams Welder/Fitter Relationship Specialty Start Date End Date Nikky Reyes MD [address] [facility] [address] [place] [address] PCP - General Family Practice 12/15/23 Venkat Vivar DO [address] [facility] MEDICAL ONCOLOGY, [facility] [address] [place] [address] Medical Oncologist/Compliance Technician Hematology and Oncology 12/15/23 Kwaku Martin MD [address] [place] [address] Consulting Physician Urology 12/15/23 Richard Hargrove MD [facility] [facility] [address] [place] [address] Radiation Oncologist Radiation Oncology 01/08/24 Adelso Quiñ[place] [address] [place] [address] Surgeon Urology 01/22/24 documented as of this encounter
--- OUTSIDE RECORDS SUMMARY | 2024-04-12 17:07 | XMS_ITS | Encounter Summary ---
Author Organization [facility] Address [address] [place] [address] Phone Care Team Providers Care Pc Tech Name Role Phone Nikky Reyes MD Primary Care Provider Venkat Vivar DO Unavailable [phone] Kwaku Martin MD Unavailable [phone] Richard Hargrove MD Unavailable [phone] Encounter Details Date Type Department Care Team (Late st Contact Info) Description 01/07/2024 Telephone [facility] Oncology [address] [place] [address] [place] [phone] Barbi Dial [facility] Social History Tobacco Use Types Packs/Day [...] on file 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 MEDICAL ONCOLOGY, [facility] [address] [place] [address] Medical Oncologist/Fusing Machine Operator Hematology and Oncology 12/15/23 Kwaku Martin MD [address] [place] [address] Consulting Physician Urology 12/15/23 Richard Hargrove MD [address] [address] Radiation Oncologist Radiation Oncology 01/08/24 documented as of this encounter
--- OUTSIDE RECORDS SUMMARY | 2024-04-12 17:07 | XMS_ITS | Encounter Summary ---
Author Organization [facility] Address [address] [facility] [address] [place] [address] Care Team Providers Care Bridge Carpenter Name Role Phone No, Physician Primary Care Provider Encounter Details Date Type Department Care Team (Late st Contact Info) Description 05/17/2020 Orders Only [facility] Cardiology [address] [place] [address] Marcelo Sen MD [address] [place] [id number] Social History Tobacco Use Types Packs/Day Years Used Date Smoking Tobacco: Never Assessed Sex and Gender Information Value Date Recorded Sex Assigned at Not on file 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
--- OUTSIDE RECORDS SUMMARY | 2024-04-12 17:07 | XMS_ITS | Encounter Summary ---
Author Organization [facility] Address [address] [place] [address] Phone Care Team Providers Care Special Forces Communications Sergeant Name Role Phone Nikky Reyes MD Primary Care Provider Venkat Vivar DO Unavailable Kwaku Martin MD Unavailable [phone] Encounter Details Date Type Department Care Team (Late st Contact Info) Description 01/05/2024 Orders Only [facility] Oncology [address] [facility] Advanced Medicine 7th [place] [address] [place] [address] Venkat Vivar, DO [address] [address] Social History Tobacco Use Types [...] on file 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 Gender Identity Not on file Sexual Orientation Not on file documented as of this encounter Plan of Treatment Not on file documented as of this encounter Visit Diagnoses Not on filedocumented in this encounter Care Teams Special Forces Communications Sergeant Relationship Specialty Start Date End Date Nikky Reyes MD [address] [facility] 2 [place] [address] PCP - General Family Practice 12/15/23 Venkat Vivar DO [address] [place] [address] MEDICAL ONCOLOGY, [facility] 180 [place] [address] Medical Oncologist/Manager File Hematology and Oncology 12/15/23 Kwaku Martin MD 1 [place] [address] Consulting Physician Urology 12/15/23 documented as of this encounter
--- OUTSIDE RECORDS SUMMARY | 2024-04-12 17:07 | XMS_ITS | Encounter Summary ---
Author Organization [facility] Address [address] [facility] [address] [place] [address] Care Team Providers Care Spring Tier Name Role Phone No, Physician Primary Care Provider [phone] Encounter Details Date Type Department Care Team (Late st Contact Info) Description 05/17/2020 Orders Only [facility] Cardiology [address] [place] [address] Marcelo Sen MD [address] [place] [id number] Social History Tobacco Use Types Packs/Day Years Used Date Smoking Tobacco: Never Assessed Sex and Gender Information Value Date Recorded Sex Assigned at Not on file 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
--- OUTSIDE RECORDS SUMMARY | 2024-04-12 17:07 | XMS_ITS | Encounter Summary ---
Author Organization [facility] Address [address] [facility] [address] [place] [address] Care Team Providers Care Home Help Aide Name Role Phone No, Physician Primary Care Provider Encounter Details Date Type Department Care Team (Late st Contact Info) Description 05/17/2020 Orders Only [facility] Cardiology [address] [place] [address] Marcelo Sen MD [address] [place] [id number] Social History Tobacco Use Types Packs/Day Years Used Date Smoking Tobacco: Never Assessed Sex and Gender Information Value Date Recorded Sex Assigned at Not on file 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
--- OUTSIDE RECORDS SUMMARY | 2024-04-12 17:07 | XMS_ITS | Encounter Summary ---
Author Organization [facility] Address [address] [place] [address] Phone Care Team Providers Care Senior Product Consultant Name Role Phone Nikky Reyes MD Primary Care Provider Venkat Vivar DO Unavailable [phone] Kwaku Martin MD Unavailable [phone] Richard Hargrove MD Unavailable [phone] Reason for Referral * MRI/CAT/PET Scan (Routine) - Closed Specialty Diagnoses / Procedures Referred By Leatha t Referred To Contact Radiology Procedures CT Abdomen Pelvis W Contrast Leeann Fleming MD [address] [place], [place] [id number] Phone: tel: Referral ID Status Reason Start Date Expiration Date Visits Re quested Visits Authorized [id number] Closed 01/06/2024 02/04/2025 1 1 * Diagnostic Imaging (Routine) - Closed Specialty Diagnoses / Procedures Referred By Leatha t Referred To Contact Radiology Procedures CHEST COMPUTED TOMOGRAPHY (CT) WITH CONTRAST Leeann Fleming MD [address] [place], [place] [id number] Phone: tel: Referral ID Status Reason Start Date Expiration Date Visits Re quested Visits Authorized [id number] Closed 01/06/2024 02/04/2025 1 1 Encounter Details Date Type Department Care Team (Late st Contact Info) Description 01/06/2024 Orders Only [facility] Oncology [address] [facility] [address] [place] [address] ProviderLeeann MD [address] [place], [place] [address] Social History Tobacco Use Types Packs/Day Years [...] on file Legal 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 Gender Identity Not on file Sexual [...] filedocumented in this encounter Care Teams Senior Product Consultant Relationship Specialty Start Date End Date Nikky Reyes MD [address] [facility] [address] [place] [address] PCP - General Family Practice 12/15/23 Venkat Vivar DO [address] [place] [address] MEDICAL ONCOLOGY, [facility] 180 [place] [address] Medical Oncologist/Pipe Fitter Maintenance Hematology and Oncology 12/15/23 Kwaku Martin MD [address] [place] [address] Consulting Physician Urology 12/15/23 Richard Hargrove MD [address] [address] Radiation Oncologist Radiation Oncology 01/08/24 documented as of this encounter
--- OUTSIDE RECORDS SUMMARY | 2024-04-12 17:07 | XMS_ITS | Encounter Summary ---
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
== END 2024-04-06 09:30 | disposition home or self-care (01) ==
PROVIDERS: Emergency Medicine; Emergency Provider Student in an Organized Health Care Education/Training Program; PCP Family Medicine
DX: R06.02 Shortness of breath (principal); Z79.02 Long term (current) use of antithrombotics/antiplatelets; I25.2 Old myocardial infarction; Z85.51 Personal history of malignant neoplasm of bladder; E03.9 Hypothyroidism, unspecified; I50.30 Unspecified diastolic (congestive) heart failure; I11.0 Hypertensive heart disease with heart failure; Z87.891 Personal history of nicotine dependence; Z20.822 Contact with and (suspected) exposure to COVID-19
CPT/HCPCS: 36415; 71045; 80053; 83690; 83880; 84484; 85025; 85610; 85730; 87637; 93005; 99284

== ENCOUNTER 2024-04-12 12:58 | Emergency (ER) | payer MEDICARE, SELFPAY ==
[2024-04-12] VITALS (9 sets, daily range): BP systolic 81–110; BP diastolic 59–73; PULSE 70–82; RESP 12–198; TEMP 36.4–36.6; O2SAT 95–100
--- NOTE | ~2024-04-12 | XR_ITS ---
XR chest 2V Ordering provider: Willis Boone History: 74 years Male with . dyspnea FLU A . Comparison: April 06, 2024 FINDINGS: MEDIASTINUM: The cardiac silhouette is not enlarged. LUNGS: No infiltrates, effusions or pneumothorax. OTHER: No free air under the diaphragm. IMPRESSION: No acute cardiopulmonary pathology. Reviewed, dictated and finalized at location A. D MIXER TENDER
--- NOTE | ~2024-04-12 | CT_ITS ---
EXAMINATION: CTA chest PE protocol DATE: 04/12/2024 20:54 CABINET INSTALLER INDICATION: Left-sided chest pain with a history of pneumonia TECHNIQUE: Computed tomographic angiography (CTA) of the chest was performed with 100 mL Omnipaque-35 0 intravenous contrast. The dose-length product was 354.36 mGy-cm. Maximum intensity projection 3D-re constructions of the aorta and other arteries were constructed by the technologist on a separate work station. COMPARISON: 07/11/2021. FINDINGS: No filling defects within the main or proximal pulmonary arteries. The pulmonary artery is not enlarged. The thoracic aorta is nonaneurysmal and otherwise unremarkable. No dissection is present. Biapical scarring. Trace dependent atelectasis. The remainder of the lungs are clear. Within the upper abdomen: The gallbladder is surgically absent. Redemonstration of a focus of decreased attenuation in segment 6 of the liver, unchanged from 2021. IMPRESSION: No pulmonary embolus. No aortic dissection. Biapical scarring. The remainder of the lungs are clear. Reviewed, dictated and finalized at location A. NET INSTALLER
--- NOTE | 2024-04-12 13:21 | ECG_ITS ---
Test Date: 2024-04-12 13:26:28 Measurements Intervals [place] Rate: 83 P: 69 [place]: 153 QRS: -71 QRSD: 154 T: 70 QT: 413 QTc: 488 Interpretive Statements SINUS RHYTHM WITH FREQUENT VENTRICULAR PREMATURE COMPLEXES RIGHT BUNDLE BRANCH BLOCK [120+ ms QRS DURATION, UPRIGHT V1, 40+ ms S IN I/aVL/V4/V5/V6] LEFT ANTERIOR FASCICULAR BLOCK [QRS AXIS <= -45, QR IN I, RS IN II] Compared to ECG 04/06/2024 08:22:34 Ventricular premature complex(es) now present Left anterior fascicular block now present Sinus bradycardia no longer present Electronically Signed On 04-12-2024 21:49:26 LINING PRINTER by Ruthie Medina M.D.
[2024-04-12 14:25] LABS: Hematocrit 37.6 % (42.0-52.0); Hemoglobin 12.6 g/dL (14.0-18.0); Mean Corpuscular HGB Conc 33.5 g/dl (32-36); Mean Corpuscular Hemoglobin 33.2 pg (26-34); Mean Corpuscular Volume 99.2 fl (80-100); Mean Platelet Volume 9.5 fl (7.4-10.4); Platelet Count Result 139 k/mm3 (150-375); Red Blood Count 3.79 M/mm3 (4.6-6.20); Red Cell Distribution Width 14.9 % (11.5-14.5); White Blood Count 3.6 K/mm3 (4.5-10.0)
[2024-04-12 14:35] LABS: Alanine Aminotransferase 25 U/L (6-50); Albumin Level 3.9 g/dL (3.5-5.1); Alkaline Phosphatase 71 U/L (38-126); Anion Gap 7 mmol/L (4-12); Aspartate Amino Transferase 29 U/L (17-59); Bilirubin,Total 0.5 mg/dL (0.2-1.3); Blood Urea Nitrogen 21 mg/dL (9-20); Calcium 8.9 mg/dL (8.4-10.2); Carbon Dioxide 25 mmol/L (22-30); Chloride 102 mmol/L (98-107); Estimated CRCL calculation 58 ml/min; Estimated Glomerular Filt Rate > 60; Glucose 101 mg/dL (65-110); Potassium 3.9 mmol/L (3.4-5.0); Sodium 134 mmol/L (137-145)
[2024-04-12 14:43] LABS: Prothrombin Time 13.6 Seconds (11.1-14.7)
[2024-04-12 14:44] LABS: NT Pro B Type Natriuretic Pept 286 pg/mL (19.9-100); Partial Thromboplastin Time 30.9 Seconds (22.3-36.8); Troponin I < 0.012 ng/mL (0.000-0.034)
[2024-04-12 14:59] LABS: Band Neutrophils Percent 5 % (0-6); Eosinophils Absolute Manual 0.14 K/mm3 (0.02-0.50); Eosinophils Percent Manual 4 % (0-4); Lymphocytes Absolute Manual 0.72 K/mm3 (1.1-4.5); Monocytes Absolute Manual 0.39 K/mm3 (0.1-0.90); Monocytes Percent Manual 11 % (3-9); Neutrophils Absolute Manual 2.34 K/mm3 (1.3-6.7); Neutrophils Percent Manual 60 % (46-73); Platelet Estimate Slightly Decreased (Adequate); Schistocytes None Seen; Total Cells Counted 100
--- NOTE | 2024-04-12 17:16 | ED_ITS ---
HPI - URI/Sore Throat General Chief Complaint: Upper Respiratory Infection Stated Complaint: flu + on friday, lungs are hurting Time Seen by Provider: 04/12/24 17:01 History of Present Illness HPI Narrative: 74-year-old male with history of CAD with reported 15 stents (last stent placed 1.5 years ago per patient), ischemic cardiomyopathy, hypothyroidism presents to the emergency department for concerns for pneumonia. He is reporting shortness of breath, intermittent left-sided chest pain. Patient states 3 days ago he began having generalized malaise, cough and congestion. The following day he went to [facility] emergency department and was diagnosed with influenza A. States he was discharged home but later began developing pain in the left side of his chest. These symptoms have been present for several days. Patient states the pain in his chest feels like pleurisy which he has had in the past, but wants to make sure it is not pneumonia, which prompted his presentation today. States that occurs with movement of his upper body and when he lays on his left side. He denies exertional symptoms, lower extremity edema, fever. Denies hemoptysis, productive cough, history of VTE. His crystal evaluator is with [facility]. He also admits to history of bladder cancer which is being managed by urologist, Dr. Quiñones. States he recently finished chemotherapy and radiation. Last chemo was 1 month ago. Patient also found to have soft blood pressure. States his blood pressure is normally low at around 105/65 at baseline. Denies lightheadedness, syncope, melena, hematochezia. Related Data Home Medications ?Medication ?Instructions ?Recorded ?Confirmed ?Last Taken ?Type clopidogrel 75 mg tablet (Plavix) 75 mg PO DAILY 02/19/19 02/27/24 05/16/20 History furosemide 40 mg tablet 40 mg PO QAM 10/17/20 02/27/24 Unknown History rosuvastatin 20 mg tablet (Crestor) 20 mg PO QHS 11/27/20 02/27/24 Unknown History metoprolol succinate 25 mg 25 mg PO DAILY 02/13/23 02/27/24 Unknown History tablet,extended release 24 hr sacubitril 49 mg-valsartan 51 mg 0.5 tablet PO BID 02/13/23 02/27/24 Unknown History tablet (Entresto) nitroglycerin 0.4 mg sublingual 0.4 mg sublingual Q5M PRN 02/27/24 02/27/24 Unknown History tablet tamsulosin 0.4 mg capsule 0.4 mg PO DAILY 02/27/24 02/27/24 Unknown History Allergies Allergy/AdvReac Type Severity Reaction Status Date / Time No Known Allergies Allergy Verified 04/06/24 04:47 Review of Systems 2 Review of Systems: All systems reviewed & are unremarkable except as noted in HPI and below PMFSH Past Medical History Medical History 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) History of colon polyps History of myocardial infarction x3 per patient Bruises easily History of stress test Hypertension Fatty liver Environmental allergies Essential (primary) hypertension History of COVID-19 02/2020, 05/2021 Positive colorectal cancer screening using DNA-based stool test (~06/2019) Nonrheumatic mitral (valve) insufficiency (~2009) Nonrheumatic tricuspid (valve) insufficiency (~2009) Unspecified diastolic (congestive) heart failure (~2009) Ischemic dilated cardiomyopathy (~2009) Hypothyroidism Surgical History Surgical History H/O transurethral resection of bladder tumor (TURBT) (~11/2023) History of PTCA (~02/2010) 12/29/1997 @ 47 y/o LAD stent x1 11/08/2003 @ 53 y/o LAD stent x2 06/25/2007 @ 57 y/o PCI diagonal 05/21/2006 @ 56 years: PCI to LAD 10/23/2004 @ 54 years PTCA to OM 02/2010 :last stent 09/2016: PCI to LAD Dr. Santana 2018 Patient states he has a total of 15 stents (?) History of cholecystectomy (~03/2011) Family History Family History Father Heart disease Mother Heart disease Sibling Heart disease Other Family history of coronary artery disease Social History Social History Smoking packs per day: 3 Smoking cigarettes per day: 60.0 Years smoked: 30 Smoking pack-years: 90.00 Smoking status: Former smoker Tobacco type: cigarettes Smoking end date: 03/31/77 Alcohol intake: never Substance use: never Lack of Transportation: No Lack of Food: Never True Current Housing: Decline to Answer Concerned About Future Housing: No Difficulty Paying Gas/Electric Bills: No Difficulty Paying for Meds: No Currently Unemployed: No Education: High School Diploma/GED Difficulty w/ Childcare or Family Care: No Living arrangements: with family Additional living arrangements comments: 2nd marriage: fathered 2 sons from first marriage Occupation/Education: 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 HEAD: Normocephalic, atraumatic. EYES: EOMI. ENT: Nares clear, no rhinorrhea or epistaxis. Mucous membranes moist. NECK: Supple. CHEST: Clear to auscultation. No respiratory distress. HEART: Regular rate and rhythm. No murmur heard. Normal peripheral pulses. ABDOMEN: Soft, nontender, nondistended, normal active bowel sounds. EXTREMITIES: Normal range of motion. No edema. Negative Homans bilaterally SKIN: Warm, dry, no rash. NEURO: No focal deficits. Alert and oriented x3 Course Vital Signs Vital signs: Vital Signs Temperature 97.6 F 04/12/24 13:15 Pulse Rate 82 04/12/24 13:15 Respiratory Rate 16 04/12/24 13:15 Blood Pressure 81/59 L 04/12/24 13:15 Pulse Oximetry 100 04/12/24 13:15 Oxygen Delivery Room Air 04/12/24 13:15 Temperature 97.9 F 04/12/24 18:29 Pulse Rate 78 04/12/24 18:29 Respiratory Rate 16 04/12/24 18:29 Blood Pressure 102/68 04/12/24 18:29 Pulse Oximetry 98 04/12/24 18:29 Oxygen Delivery Room Air 04/12/24 13:45 MDM - URI/Sore Throat MDM Narrative Medical decision making narrative: 74-year-old male with history of CAD, ischemic cardiomyopathy, hypothyroidism presents to the emergency department for concerns for pneumonia after recent influenza A diagnosis at [facility]. Reporting left-sided chest pain that occurs with movement of his upper body, nonproductive cough, shortness of breath. Triage vitals with hypotension of 81/59. Patient does report a history of soft blood pressures, normally 105/65. He denies lightheadedness or syncope. Fluids provided. He is afebrile and nontoxic appearing. He is satting 100% on room air in no respiratory distress and is otherwise well appearing. Blood work in triage shows leukopenia of 3.6, hemoglobin of 12.6 which is consistent with prior. No neutropenia. Chemistries are largely unremarkable. BNP within normal limits at 286, he does not appear to be volume overloaded. Chest x-ray shows no acute cardiopulmonary findings. EKG shows sinus rhythm with frequent PVCs, RBBB, normal NJ interval, normal QRS duration, mildly prolonged QTC of 488, no ischemic changes. Troponin undetectable x2. BNP within normal limits when age adjusted, he does not appear volume overloaded, but infact appears dry. TSH elevated at 6.270, free T4 normal. UA with trace leuko esterase, no WBC, no sx of UTI. CTA chest PE shows no PE, no aortic dissection, biapical scarring, remainder of lungs are clear. Patient updated on workup. He received IV fluids for dehydration with improvement of blood pressure to 106/66 which is his reported baseline. He is resting comfortably in exam bed. Presentation consistent with MSK etiology. Advised Tylenol for pain and follow-up with his PCP. Return precautions discussed. He is agreeable with the plan verbalized understanding. Discharged stable condition. Lab Data 04/12/24 13:57 04/12/24 13:57 Labs: Lab Results 04/12/24 04/12/24 Range/Units 13:57 17:27 WBC 3.6 L (4.5-10.0) K/mm3 RBC 3.79 L (4.6-6.20) M/mm3 Hgb 12.6 L (14.0-18.0) g/dL Hct 37.6 L (42.0-52.0) % MCV 99.2 (80-100) fl MCH 33.2 (26-34) pg MCHC 33.5 (32-36) g/dl RDW 14.9 H (11.5-14.5) % Plt Count 139 L (150-375) k/mm3 MPV 9.5 (7.4-10.4) fl Immature Gran % (Auto) Not Reportable Neut % (Auto) Not Reportable Lymph % (Auto) Not Reportable [place] % (Auto) Not Reportable Eos % (Auto) Not Reportable Baso % (Auto) Not Reportable Lymph # (Auto) Not Reportable [place] # (Auto) Not Reportable Eos # (Auto) Not Reportable Baso # (Auto) Not Reportable Abs Immat Gran (auto) Not Reportable Absolute Neuts (auto) Not Reportable Absolute Nucleated RBC Not Reportable Total Counted 100 Neutrophils % (Manual) 60 (46-73) % Band Neutrophils % 5 (0-6) % Lymphocytes % (Manual) 20.0 (18-44) % Monocytes % (Manual) 11 H (3-9) % Eosinophils % (Manual) 4 (0-4) % Nucleated RBC % Not Reportable Abs Neuts (Manual) 2.34 (1.3-6.7) K/mm3 Abs Lymphs (Manual) 0.72 L (1.1-4.5) K/mm3 Abs Monocytes (Manual) 0.39 (0.1-0.90) K/mm3 Absolute Eos (Manual) 0.14 (0.02-0.50) K/mm3 Platelet Estimate Slightly decreased (Adequate) % Immature Plt Fraction 2.0 (0.9-11.2) % Schistocytes None seen PT 13.6 (11.1-14.7) Seconds INR 1.0 APTT 30.9 (22.3-36.8) Seconds Sodium 134 L (137-145) mmol/L Potassium 3.9 (3.4-5.0) mmol/L Chloride 102 (98-107) mmol/L Carbon Dioxide 25 (22-30) mmol/L Anion Gap 7 (4-12) mmol/L BUN 21 H (9-20) mg/dL Creatinine 1.09 (0.7-1.3) mg/dL Estim Creat Clear Calc 58 ml/min Estimated GFR > 60 (59 - ) Glucose 101 (65-110) mg/dL Calcium 8.9 (8.4-10.2) mg/dL Total Bilirubin 0.5 (0.2-1.3) mg/dL AST 29 (17-59) U/L ALT 25 (6-50) U/L Alkaline Phosphatase 71 (38-126) U/L Troponin I < 0.012 < 0.012 (0.000-0.034) ng/mL NT-Pro-B Natriuret Pep 286 H (19.9-100) pg/mL Total Protein 7.0 (6.3-8.2) g/dL Albumin 3.9 (3.5-5.1) g/dL TSH (Reflex) 6.270 H (0.465-4.68) uIU/mL Free T4 1.12 (0.78-2.19) ng/dL Total T3 1.24 (0.97-1.69) NG/ML Urine Color Yellow (Yellow) Urine Appearance Clear (Clear) Urine pH 5.0 (5.0-9.0) Ur Specific [place] 1.017 (1.001-1.035) Urine Protein Negative (Negative) mg/dL Urine Glucose (UA) Negative (Negative) mg/dL Urine Ketones Negative (Negative) mg/dL Ur Blood (Man) Negative (Negative) Urine Nitrate Negative (Negative) Urine Bilirubin Negative (Negative) Urine Urobilinogen 0.2 (<2.0) mg/dL Leukocyte Esterase Rfl Trace H (Negative) MELINDA/UL Urine RBC 0-2 (0-2) /hpf Urine WBC 0-5 (0-3) /hpf Ur Squamous Epith Cells None seen (Few) /hpf Urine Bacteria None seen /hpf Urine Casts 0-2 Influenza A (RT-PCR) Positive A (Negative) Influenza B (RT-PCR) Negative (Negative) RSV (RT-PCR) Negative (Negative) SARS-CoV-2 RNA (RT-PCR) Negative (Negative) Discharge Plan Discharge Clinical Impression: Atypical chest pain Patient Disposition: Home, Self-Care Condition: Stable Instructions: Antibiotic Form, Chest Pain (ED) Additional Instructions: Take Tylenol as needed for pain. Follow up with her primary care provider. Return to the emergency department if you develop new or worsening symptoms, shortness of breath, lightheadedness, loss of consciousness or other concerning symptoms. Patient Language: Norwegian Prescriptions: No Action clopidogrel [Plavix] 75 mg tablet 75 mg PO DAILY rosuvastatin [Crestor] 20 mg tablet 20 mg PO QHS metoprolol succinate 25 mg tablet extended release 24 hr 25 mg PO DAILY Entresto 49-51 mg tablet 0.5 tablet PO BID tamsulosin 0.4 mg capsule 0.4 mg PO DAILY nitroglycerin 0.4 mg tablet, sublingual 0.4 mg sublingual Q5M PRN furosemide 40 mg tablet 40 mg PO QAM levothyroxine 50 mcg tablet 50 mcg PO DAILY Qty: 90 0RF Follow-up/Referrals: Maria Reyes MD [Primary Care Provider] -
[2024-04-12 17:52] LABS: Add Urine Microscopic? YES; Appearance Urine Clear (Clear); Bacteria Urine None Seen /hpf; Bilirubin Urine Negative (Negative); Blood Urine Negative (Negative); Color Urine Yellow (Yellow); Glucose Urine UA Negative (Negative); Ketones Urine Negative (Negative); Leukocyte Esterase Ur Trace LEU/UL (Negative); Nitrate Urine Negative (Negative); Non Pathogenic Casts 0-2; Protein Urine Negative (Negative); RBC Urine 0-2 /hpf (0-2); Specific Grav Ur 1.017 (1.001-1.035); Squamous Epithelial Cell Urine None Seen /hpf (Few); Urobilinogen Urine 0.2 mg/dL (<2.0); WBC Urine 0-5 /hpf (0-3)
[2024-04-12 18:01] LABS: Troponin I < 0.012 ng/mL (0.000-0.034)
[2024-04-12 18:16] LABS: Influenza A QL RT-PCR Positive (Negative); Influenza B QL RT-PCR Negative (Negative); RSV RNA, RT-PCR Negative (Negative); SARS-CoV-2 RNA PCR Negative (Negative)
[2024-04-12] MEDS: SODIUM CHLORIDE 0.9% IV 1,000 ML 999 ML IV CONT (18:39)
--- NOTE | 2024-04-12 19:13 | PC.NURSE ---
Assumed care of pt from ODILON Becker at this time. Pt resting with call light within reac, awaiting CT.
[2024-04-12 20:37] LABS: Free T4 Free Thyroxine Reflex 1.12 ng/dL (0.78-2.19)
[2024-04-12 21:25] LABS: Total Triiodothyronine (T3) 1.24 NG/ML (0.97-1.69)
== END 2024-04-12 22:46 | disposition home or self-care (01) ==
PROVIDERS: Emergency Medicine; Emergency Provider Physician Assistant; PCP Family Medicine
DX: R07.89 Other chest pain (principal); Z20.822 Contact with and (suspected) exposure to COVID-19; I25.10 Atherosclerotic heart disease of native coronary artery without angina pectoris; E03.9 Hypothyroidism, unspecified; Z85.51 Personal history of malignant neoplasm of bladder; I50.30 Unspecified diastolic (congestive) heart failure; I11.0 Hypertensive heart disease with heart failure; Z87.891 Personal history of nicotine dependence
CPT/HCPCS: 36415; 71046; 71275; 80053; 81001; 83880; 84439; 84443; 84480; 84484; 85025; 85055; 85610; 85730; 87637; 93005; 96360; 99284; J7030; Q9967

== ENCOUNTER 2024-06-02 00:21 | Day surgery (SDC) | payer MEDICARE, SELFPAY ==
[2024-05-24 11:42] VITALS: BMI 25.6
--- NOTE | 2024-05-27 10:28 | PC.NURSE ---
Spoke with patient regarding medication Plavix. Patient verbalizes understanding that the last dose is to be taken on 05/28/24 and the Endoscopist will instruct them when to restart after the procedure.
--- OUTSIDE RECORDS SUMMARY | 2024-06-02 00:24 | XMS_ITS | Encounter Summary ---
Author Organization [employer] Address 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
--- OUTSIDE RECORDS SUMMARY | 2024-06-02 00:24 | XMS_ITS | Encounter Summary ---
Author Organization [facility] Address [address] [place] [address] Care Team Providers Care Branner Machine Tender Name Role Phone Nikky Reyes MD Primary Care Provider Encounter Details Date Type Department Care Team (Late st Contact Info) Description 04/01/2024 Prep for Procedure [facility] [place], [place] [id number] Adelso Quiñones MD [address] [facility] [address] [place], [place] [id number] Social History Tobacco Use Types Packs/Day Years Used Date Smoking Tobacco: Former Cigarettes 2 15 S tarted: 1967 Smokeless Tobacco: Never Alcohol Use Standard Drinks/Week Comments Not Currently 0 (1 standard drink = 0.6 oz pur e alcohol) sober 45 years Sex and Gender Information Value Date Recorded Sex Assigned at Not on file Legal Sex Male 1:18 PM [employer]CHO[employer] Gender Identity Not on file Sexual Orientation Not on file documented as of this encounter Plan of Treatment Not on file documented as of this encounter Results * (ABNORMAL) URINE BACTERIA CULTURE (04/02/2024 2:46 PM [employer]CHO[employer] DEAN) SPEC DESCRIPTION URINE CLEAN CATCH 04/02/2024 2:47 PM [employer] [facility] SPECIAL REQUESTS NO SPECIAL REQUEST 04/02/2024 2:47 PM [employer] [facility] CULTURE RESULT >100,000 COL/ML STAPH. SPECIES NOT STAPH. AUREUS (A) 04/04/2024 8:02 AM BUSINESS SCHOOL DEAN [facility] URINE SPECIMEN OBTAINED BY CLEAN CATCH PROCEDURE / Unknown 04/02/2024 2:46 PM [employer] SCHOOL DEAN 04/02/2024 3:46 PM [employer] Narrative Organism Antibiotic Method Susceptibility Staph. species not staph. aureus NITROFURANTOIN NIRMALA (V ITEK) <=16: Sensitive Staph. species not staph. aureus LEVOFLOXACIN NIRMALA (VIT EK) 4: Resistant Staph. species not staph. aureus OXACILLIN NIRMALA (VIT EK) >=4: Resistant Staph. species not staph. aureus TRIMETH-SULFAMETH. MN C (VITEK) 20: Sensitive Staph. species not staph. aureus TETRACYCLINE NIRMALA (VIT EK) >=16: Resistant Staph. species not staph. aureus VANCOMYCIN NIRMALA (VIT EK) 2: Sensitive Adelso Quiñones MD MICROBIOLOGY - GENERAL ORDERABL ES Final Result [facility] [address] [place] [address], documented in this encounter Visit Diagnoses Diagnosis Bladder cancer (CMS/HCC HHS/HCC)- Primary Malignant neoplasm of bladder, part unspecified Hydronephrosis with ureteral stricture documented in this encounter Additional Health Concerns Infection Onset Date Last Indicated Resolved Time COVID-19 Rule Out 04/10/2024 04/10/2024 04/10/2024 1:35 PM [employer] Influenza - Seasonal 04/10/2024 04/10/2024 025 12:32 AM [employer] documented as of this encounter Care Teams Branner Machine Tender Relationship Specialty Start Date End Date Nikky Reyes MD [address] [place] [address] PCP - General FAMILY PRACTICE 05/04/21 documented as of this encounter
--- OUTSIDE RECORDS SUMMARY | 2024-06-02 00:24 | XMS_ITS | Encounter Summary ---
Author Organization [employer] Address 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
--- OUTSIDE RECORDS SUMMARY | 2024-06-02 00:24 | XMS_ITS | Referral Summary ---
Author Organization [facility] [address] Address [address] [place] [address] Care Team Providers Care Dials Inspector Name Role Phone Nikky Reyes MD Primary Care Provider Venkat Vivar DO Unavailable [phone] Kwaku Martin MD Unavailable [phone] Richard Hargrove MD Unavailable [phone] Adelso Quiñones MD Unavailable [phone] Encounters Date Type Department Care Team Description 04/19/2024 10:30 AM SYSTEM ARCHITECT Lab [facility] at [address] [id number] Anemia due to chemotherapy 04/19/2024 11:30 AM SYSTEM ARCHITECT Office Visit [facility] Medical Office Building 2 Radiation Oncology [address] [place] [address] Jade Fall PA Malignant neoplasm of urinary bladder, unspecified site (HCC) (Primary Dx); Personal history of radiation therapy 04/19/2024 11:00 AM SYSTEM ARCHITECT Office Visit [facility] Oncology [address] [place] [address] [address] [place] [id number] Venkat Vivar DO Malignant neoplasm of urinary bladder, unspecified site (HCC) (Primary Dx); Malignant neoplasm of ureteric orifice (HCC); Anemia due to chemotherapy 03/08/2024 Telephone [facility] Oncology [address] [facility] [address] [place] [address] Laura Arias RN from Last 3 Months Allergies No known active allergies Medications tamsulosin (FLOMAX) 0.4 mg extended release capsule Take 1 capsule (0.4 mg total) by mouth daily 12/05/2023 Active sacubitriL-vals kumar (ENTRESTO) 49-51 mg tablet Take by mouth 11/19/2023 Active rosuvastatin (CRESTOR) 20 mg tablet Take 1 tablet (20 mg total) by mouth daily Active levothyroxine (Synthroid) 50 mcg tablet Take 1 tablet (50 mcg total) by mouth 11/19/2023 Active furosemide (LASIX) 40 mg tablet Take 1 tablet (40 mg total) by mouth 11/19/2023 Active aspirin 81 mg enteric coated tablet Take 1 tablet (81 mg total) by mouth 11/19/2023 Active ascorbic acid (VITAMIN C) 1,000 mg tablet Take 1 tablet (1,000 mg total) by mouth daily Active clopidogreL (PLAVIX) 75 mg tablet Take 1 tablet (75 mg total) by mouth daily Active nitroglycerin (NITROSTAT) 0.4 mg SL tablet 1 tablet (0.4 mg total) as needed for chest pain 01/14/2024 Active metoprolol XL (TOPROL-XL) 25 mg extended release tablet TAKE 1/2 OF A TABLET BY MOUTH EVERY DAY 01/14/2024 Active metoclopramide (REGLAN) 10 mg tablet TAKE 1 TABLET BY MOUTH THREE TIMES A DAY 90 tablet 04/05/2024 Active Active Problems Problem Noted Date Diagnosed [...] on file Legal Sex Male 2:03 AM SYSTEM ARCHITECT Gender Identity Not on file Sexual Orientation Not on file Occupation Industry Job Start Date Job End Date Retired Not on file Not on file Not on file Last Filed Vital Signs Vital Sign Reading Time Taken Comments Blood Pressure 99/69 04/19/2024 11:35 AM SYSTEM ARCHITECT Pulse 68 04/19/2024 11:35 AM SYSTEM ARCHITECT Temperature 36.6 C (97.9 F) 04/19/2024 10:59 AM SYSTEM ARCHITECT Respiratory Rate 18 04/19/2024 10:59 AM SYSTEM ARCHITECT Oxygen Saturation 96% 04/19/2024 11:35 AM SYSTEM ARCHITECT Inhaled Oxygen Concentration - - Weight 86.2 kg (190 lb) 04/19/2024 11:35 AM SYSTEM ARCHITECT Height 185.4 cm (6' 1 ) 02/25/2024 12:13 AM SYSTEM ARCHITECT Body Mass Index 25.07 02/25/2024 12:13 AM SYSTEM ARCHITECT Plan of Treatment Not on file Procedures Procedure Name Priority Date/Time Associated Diagnosis Comments EGFR Routine 04/19/2024 10:37 AM SYSTEM ARCHITECT Anemia due to chemotherapy DIFFERENTIAL AUTO Routine 04/19/2024 10: 37 AM SYSTEM ARCHITECT Anemia due to chemotherapy CBC WITH AUTO DIFFERENTIAL Routine 04/19/2024 10:37 AM SYSTEM ARCHITECT Anemia due to chemotherapy COMPREHENSIVE METABOLIC PANEL Routine 04/19/2024 10:37 AM SYSTEM ARCHITECT Anemia due to chemotherapy from Last 3 Months Results * eGFR (04/19/2024 10:37 AM SYSTEM ARCHITECT) eGFR 89 >=60 mL/min/1. 73 m2 Comment: Interpretive Data Reference Interval Normal >/= 90 mL/min/1.73m2 Mildly decreased* 60 - 89 mL/min/1.73m2 Mildly to moderately decreased 45 - 59 mL/min/1.73m2 Moderately to severely decreased 30 - 44 mL/min/1.73m2 Severely decreased 15 - 29 mL/min/1.73m2 Kidney Failure < 15 mL/min/1.73m2 *Relative to young adult level Estimated glomerular [...] was last reviewed 2021. Testing performed by: [address] [address] Blood 04/19/2024 10:3 7 AM SYSTEM ARCHITECT 04/19/2024 10:40 AM SYSTEM ARCHITECT us Venkat Vivar DO LAB BLOOD ORDERABLES Final R esult JAIME [address] [facility] Department [place] [address] * Differential, auto (04/19/2024 10:37 AM SYSTEM ARCHITECT) Pathologist [facility] Neutrophil abs 4.2 1.5 - 6.5 K/cumm Comment:Testing performed by : [address] [address] Imm gran abs 0.1 0.0 - 0.1 K/cumm JAIME PINEDA Comment:Testing performed by : [address] [address] Lymphocyte abs 1.0 0.8 - 3.3 K/cumm JAIME PINEDA Comment:Testing performed by : [address] [address] Monocyte abs 0.7 0.2 - 0.8 K/cumm [facility] Comment:Testing performed by : [address] [address] Eosinophil abs 0.2 0.0 - 0.5 K/cumm [facility] Comment:Testing performed by : [address] [address] Basophil abs 0.0 0.0 - 0.1 K/cumm [facility] Comment:Testing performed by : [address] [address] Neutrophil pct 68.1 % [facility] Comment: Interpretive Data Percent cell count reference ranges are not reported, since discordance with absolute values may lead to misinterpretation of CBC data. Current Interpretive Data was last revised on 2017. Testing performed by: [address] [address] Imm gran pct 1.0 % [facility] Comment: Interpretive Data Percent cell count reference ranges are not reported, since discordance with absolute values may lead to misinterpretation of CBC data. Current Interpretive Data was last revised on 2017. Testing performed by: [address] [address] Lymphocyte pct 16.1 % [facility] Comment: Interpretive Data Percent cell count reference ranges are not reported, since discordance with absolute values may lead to misinterpretation of CBC data. Current Interpretive Data was last revised on 2017. Testing performed by: [address] [address] Monocyte pct 11.5 % [facility] Comment: Interpretive Data Percent cell count reference ranges are not reported, since discordance with absolute values may lead to misinterpretation of CBC data. Current Interpretive Data was last revised on 2017. Testing performed by: [address] [address] Eosinophil pct 2.6 % [facility] Comment: Interpretive Data Percent cell count reference ranges are not reported, since discordance with absolute values may lead to misinterpretation of CBC data. Current Interpretive Data was last revised on 2017. Testing performed by: [address] [address] Basophil pct 0.7 % JAIME Comment: Interpretive Data Percent cell count reference ranges are not reported, since discordance with absolute values may lead to misinterpretation of CBC data. Current Interpretive Data was last revised on 2017. Testing performed by: [address] [address] Blood 04/19/2024 10:3 7 AM SYSTEM ARCHITECT 04/19/2024 10:40 AM SYSTEM ARCHITECT us Venkat Vivar DO LAB BLOOD ORDERABLES Final R esult JAIME [address] [facility] Department [place] [address] * (ABNORMAL) CBC with auto differential (04/19/2024 10:37 AM SYSTEM ARCHITECT) WBC 6.1 3.8 - 9.9 K/cumm Comment:Testing performed by : [address] [address] Hgb 13.0 13.0 - 17.5 g/dL JAIME Comment:Testing performed by : [address] [address] Hct 37.9(L) 38.9 - 50.3 % JAIME Comment:Testing performed by : [address] [address] Plt 194 150 - 400 K/cumm JAIME Comment:Testing performed by : [address] [address] MPV 9.2 9.1 - 12.3 fL JAIME Comment:Testing performed by : [address] [address] RBC 3.95(L) 4.30 - 5.80 M/cumm JAIME Comment:Testing performed by : [address] [address] MCV 95.9 81.3 - 96.4 fL JAIME Comment:Testing performed by : [address] [address] MCH 32.9 27.1 - 33.3 pg JAIME PINEDA Comment:Testing performed by : [address] [address] MCHC 34.3 32.3 - 35.7 g/dL JAIME PINEDA Comment:Testing performed by : [address] [address] RDW CV 13.8 11.1 - 14.9 % JAIME PINEDA Comment:Testing performed by : [address] [address] RDW SD 49.3(H) 35.7 - 48.1 fL JAIME PINEDA Comment:Testing performed by : [address] [address] NRBC abs 0.00 0.00 - 0.01 K/cumm JAIME PINEDA Comment:Testing performed by : [address] [address] Blood 04/19/2024 10:3 7 AM SYSTEM ARCHITECT 04/19/2024 10:40 AM SYSTEM ARCHITECT us Venkat Vivar DO LAB BLOOD ORDERABLES Final R esult JAIME PINEDA [facility] Department of Laboratories [place], [place] [id number] * Comprehensive metabolic panel (04/19/2024 10:37 AM SYSTEM ARCHITECT) Sodium 138 135 - 145 mmol/L Comment:Testing performed by : [address] [address] Potassium, pl 4.6 3.3 - 4.9 mmol/L JAIME PINEDA Comment:Testing performed by : [address] [address] Chloride 105 97 - 110 mmol/L JAIME PINDEA Comment:Testing performed by : [address] [address] CO2 25 22 - 32 mmol/L JAIME PINEDA Comment:Testing performed by : [address] [address] Anion gap 8 2 - 15 mmol/L JAIME Comment:Testing performed by : [address] [address] BUN 15 6 - 25 mg/dL [facility] Comment:Testing performed by : [address] [address] Creatinine 0.90 0.80 - 1.30 mg/dL JAIME Comment:Testing performed by : [address] [address] Glucose 111 70 - 199 mg/dL [facility] Comment: Interpretive Data Fasting glucose >/= 126 mg/dl is diagnostic for diabetes. Fasting is defined as no caloric intake [...] was last revised 2022. Testing performed by: [address] [address] Calcium 9.0 8.5 - 10.3 mg/dL [facility] Comment:Testing performed by : [address] [address] Bilirubin, total 0.5 0.1 - 1.2 mg/dL [facility] Comment:Testing performed by : [address] [address] Protein, pl 7.4 6.5 - 8.5 g/dL [facility] Comment:Testing performed by : [address] [address] Albumin 3.9 3.5 - 5.0 g/dL [facility] Comment:Testing performed by : [address] [address] Alk phos 78 40 - 130 Units/L JAIME Comment:Testing performed by : [address] [address] ALT 27 7 - 55 Units/L JAIME PINEDA Comment:Testing performed by : [facility], [address] [place] [address]., [address] AST 17 10 - 50 Units/L JAIME PINEDA Comment:Testing performed by : [facility], [address] [place] [address]., [address] Blood 04/19/2024 10:3 7 AM SYSTEM ARCHITECT 04/19/2024 10:40 AM SYSTEM ARCHITECT us Venkat Vivar DO LAB BLOOD ORDERABLES Final R esult JAIME [address] [facility] Department [place] [address] from Last 3 Months Insurance MEDICARE [employer] [facility] MEDICARE [facility] MEDICARE SUPPLEMENT MEDICARE [facility] MEDICARE SUPPLEMENT Care Teams Dials Inspector Relationship Specialty Start Date End Date Nikky Reyes MD [address] [facility] [address] [place] [address] PCP - General Family Practice 12/15/23 Venkat Vivar DO [address] [place] [address] [address] Medical Oncologist/General Road Foreman Hematology and Oncology 12/15/23 Kwaku Martin MD [address] [place] [address] MEDICAL ONCOLOGY, [address] [address] Consulting Physician Urology 12/15/23 Richard Hargrove MD [address] [place] [id number] Radiation Oncologist Radiation Oncology 01/08/24 Adelso Qu[place] [address] [address] Surgeon Urology 01/22/24
--- OUTSIDE RECORDS SUMMARY | 2024-06-02 00:24 | XMS_ITS | Encounter Summary ---
Author Organization [employer] Address [address] [place] [address] Care Team Providers Care Fulfillment Specialist Name Role Phone Rosanne Santana MD Primary Care Provider [phone] Encounter Details Date Type Department Care Team (Late st Contact Info) Description 05/16/[address] [facility] [facility] [address] 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
--- OUTSIDE RECORDS SUMMARY | 2024-06-02 00:24 | XMS_ITS | Encounter Summary ---
Author Organization [employer] Address [address] [place] [address] Care Team Providers Care Mineral Ore Processing Labourer Name Role Phone Rosanne Santana MD Primary Care Provider [phone] Encounter Details Date Type Department Care Team (Late st Contact Info) Description 05/03/1998 Outpatient Historical HIS EMERGENCY ROOM [facility] Eliezer Goddard, [address] [facility] [address] [place] [address] Er, Authorized P NO ADDRESS ON FILE Other specified sites of sprains and strains (Primary Dx) Social History Tobacco Use Types Packs/Day Years Used Date Smoking Tobacco: Never Assessed Sex and Gender Information Value Date Recorded Sex Assigned at Not on file Legal Sex Male 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
--- OUTSIDE RECORDS SUMMARY | 2024-06-02 00:24 | XMS_ITS | Encounter Summary ---
Author Organization [employer] Address [address] [place] [address] Care Team Providers Care Gas Plant Repairer Name Role Phone Rosanne Santana MD Primary Care Provider [phone] Encounter Details Date Type Department Care Team (Latest Contact Info) Description 05/16/2006 Outpatient Historical [facility] Rosanne Santana MD [address] [facility] [place] [address] AMI Inferolateral Wall (CMS/HCC) (Primary Dx) Social History Tobacco Use Types Packs/Day Years Used Date Smoking Tobacco: Never Assessed Sex and Gender Information Value Date Recorded Sex Assigned at Not on file Legal Sex Male 4:23 AM MANAGEMENT PROFESSOR Gender Identity Not on file Sexual Orientation Not on file documented as of this encounter Plan of Treatment Not on file documented as of this encounter Visit Diagnoses Diagnosis Acute myocardial infarction of inferolateral wall, episode of care unspecified (CMS/HCC)- Primary Acute myocardial infarction of inferolateral wall, episode of care unspecified documented in this encounter Care Teams Gas Plant Repairer Relationship Specialty Start Date End Date Rosanne Santana MD [address] [place] [address] [place] [address] PCP - General 10/24/03 documented as of this encounter
--- OUTSIDE RECORDS SUMMARY | 2024-06-02 00:24 | XMS_ITS | Continuity of Care Document ---
Author Name [facility] Organization [facility] Care Team Providers Care Sheriff Sergeant Name Role Phone [facility] Unavailable Unavailable Problems Combined list of problems from [facility] and [facility] facilities. It does not include entries that were removed or entered in error. Problem Status Onset Date Problem Type Date of Resolution Comments Source Benign essential hypertension Active Condition [facility] Congestive heart failure Active Condition [facility] Coronary atherosclerosis (SNOMED CT 974070142) Active Condition Apr 06, 2004 Entered By: DONNY HARRISON Comment: myocardial infarction [facility] Hyperlipidemia (SNOMED CT 62963814) Active Condition [facility] Hypothyroidism Active Condition [facility] Prediabetes Active Condition [facility] Diagnosis: ICD-10-CM Z13.5 Encounter for screening for eye and ear disorders Active Diagnosis [facility] Diagnosis: ICD-10-CM I25.10 [place] heart disease [place] coronary artery w/o ang pctrs Active Diagnosis [facility] Medications Combined list of outpatient medications from [facility] and [facility] facilities.Medications provided include 1) outpatient medications from the last 15 months, and 2) patient-reported medications. Medication Details Route Status Patient Instructions Prescription Expires Prescription Number Last Dispense Date Ordering Provider Order Date Order Qty Source ASPIRIN 81MG TAB,EC TAKE ONE TABLET BY MOUTH ONCE A DAY FOR CARDIOVA SCULAR DISEASE TAKE WITH FOOD ORAL ACTIVE 11/19/2024 [id number] 4 MARGUERITE PAEZ E 2023 120 [facility] ASPIRIN 81MG TAB,EC TAKE ONE TABLET BY MOUTH ONCE A DAY FOR CARDIOVA SCULAR DISEASE TAKE WITH FOOD ORAL DISCONT INUED 02/28/2024 [id number] 4 JOEL GRIER LISSY T 2022 120 [facility] CLOPIDOGREL BISULFATE 75MG TAB TAKE ONE TABLET BY MOUTH ONCE A DAY FOR ACUTE CORONARY SYNDROME ORAL ACTIVE 11/19/2024 [id number] 5 MARGUERITE PAEZ 2023 90 [facility] CLOPIDOGREL BISULFATE 75MG TAB TAKE ONE TABLET BY MOUTH ONCE A DAY FOR ACUTE CORONARY SYNDROME ORAL DISCONT INUED 02/28/2024 [id number] 4 JOEL GRIER LISSY T 2022 90 [facility] FUROSEMIDE 40MG TAB TAKE ONE TABLET BY MOUTH EVERY MORNING FOR FLUID RETENTIO N (EDEMA) ORAL ACTIVE 11/19/2024 [id number] 5 MARGUERITE PAEZ 2023 90 [facility] FUROSEMIDE 40MG TAB TAKE ONE TABLET BY MOUTH EVERY MORNING FOR FLUID RETENTIO N ([place]) ORAL DISCONT INUED 02/28/2024 [id number] 4 MARVEL,JOEL YUAN T 2022 90 [facility] LEVOTHYROXI NE NA 50MCG TAB (SYNTHROID) TAKE ONE TABLET BY MOUTH EVERY MORNING BEFORE A MEAL FOR HYPOTHYR OIDISM TAKE 30 MINUTES BEFORE FOOD. TAKE SEPARATE LY FROM ALL OTHER MEDICATI ONS. ORAL ACTIVE 11/19/2024 [id number] 4 MARGUERITE PAEZ Julisa 2023 90 [facility] LEVOTHYROXI NE NA 50MCG TAB (SYNTHROID) TAKE ONE TABLET BY MOUTH EVERY MORNING BEFORE A MEAL FOR HYPOTHYR OIDISM TAKE 30 MINUTES BEFORE FOOD. TAKE SEPARATE LY FROM ALL OTHER MEDICATI ONS. ORAL DISCONT INUED 02/28/2024 [id number] 4 JOEL GRIER LISSY T 2022 90 [facility] METOPROLOL SUCCINATE 50MG TAB,SA TAKE ONE-HALF TABLET BY MOUTH ONCE A DAY FOR HIGH BLOOD PRESSURE SWALLO W WHOLE, DO NOT CRUSH OR CHEW (TABLETS MAY BE CUT IN HALF). ORAL ACTIVE 11/19/2024 [id number] 5 MARGUERITE PAEZ 2023 45 [facility] METOPROLOL SUCCINATE 50MG TAB,SA TAKE ONE-HALF TABLET BY MOUTH ONCE A DAY FOR HIGH BLOOD PRESSURE SWALLO W WHOLE, DO NOT CRUSH OR CHEW (TABLETS MAY BE CUT IN HALF). ORAL DISCONT INUED 02/28/2024 [id number] 4 JOEL GRIER T 2022 45 [facility] ROSUVASTATI N CA 40MG TAB TAKE ONE TABLET BY MOUTH EVERY EVENING FOR HIGH CHOLESTE ROL ORAL ACTIVE 11/19/2024 [id number] 5 MARGUERITE PAEZ 2023 90 [facility] ROSUVASTATI N CA 40MG TAB TAKE ONE TABLET BY MOUTH EVERY EVENING FOR HIGH CHOLESTE ROL ORAL DISCONT INUED 02/28/2024 [id number] 4 MARVELJOEL CEBALLOS T 2022 90 [facility] SACUBITRIL 49MG/VALSAR ABBOTT 51MG TAB TAKE ONE-HALF TABLET BY MOUTH TWICE A DAY FOR HEART FAILURE ORAL ACTIVE 11/19/2024 [id number] 5 MARGUERITE PAEZ 2023 90 [facility] SACUBITRIL 49MG/VALSAR ABBOTT 51MG TAB TAKE ONE-HALF TABLET BY MOUTH TWICE A DAY FOR HEART FAILURE ORAL DISCONT INUED 02/28/2024 [id number] 4 JOEL GRIER T 2022 90 [facility] Immunizations Combined list of available immunizations from the Department of Defense and Veterans Affairs facilities. Immunization Series Date Given Administered By Site Reaction Lot Number CVX Code Drug Open Soaper Tender Status Comments Source OUTSIDE FLU SHOT (HISTORICAL) 2004 88 [facility] ed [facility] INFLUENZA (HISTORICAL) 2004 88 [facility] ed [facility] Results Combined list of recent chemistry, [...] Oct 04, 2023 05:25 PM Reporting Lab: [facility] [address] [place], [place] [phone] Performing Lab: [address] [address] [facility] LIPID PANEL (STL) TRIGLYCERID E [MASS/VOLUM E] IN SERUM OR PLASMA 92 mg/dL 0 - 150 11/20 Specimen Type: PLASMA Comment: No hemolysis noted. Ordering Provider: WISAM GRIER Report Released Date/Time: Oct 04, 2023 05:25 PM Reporting Lab: [address] [address] Performing Lab: [address] [address] [facility] LIPID PANEL (STL) CHOLESTEROL IN LDL [MASS/VOLUM E] IN SERUM OR PLASMA BY CALCULATION 26 mg/dL 11/20 Specimen Type: PLASMA Comment: No hemolysis noted. Ordering Provider: WISAM GRIER Report Released Date/Time: Oct 04, 2023 05:25 PM Reporting Lab: [facility] [address] [place] [phone] Performing Lab: [address] [address] [facility] LIPID PANEL (STL) CHOLESTEROL IN HDL [MASS/VOLUM E] IN SERUM OR PLASMA 25 mg/dL 40 11/20 L Specimen Type: PLASMA Comment: No hemolysis noted. Ordering Provider: WISAM GRIER Report Released Date/Time: Oct 04, 2023 05:25 PM Reporting Lab: [facility] [address] [place] [phone] Performing Lab: [facility] [address] [facility] [phone] [facility] COMPREHEN SIVE METABOLIC PANEL CREATININE [MASS/VOLUM E] IN SERUM OR PLASMA 0.98 mg/dL 0.7 - 1.3 11/20 Specimen Type: PLASMA Comment: No hemolysis noted. Ordering Provider: WISAM GRIER Report Released Date/Time: Oct 04, 2023 05:25 PM Reporting Lab: [facility] [address] [facility] [phone] Performing Lab: [facility] [address] [place] [phone] [facility] COMPREHEN SIVE METABOLIC PANEL UREA NITROGEN [MASS/VOLUM E] IN SERUM OR PLASMA 13.6 mg/dL 9.0 - 25.0 11/20 Specimen Type: PLASMA Comment: No hemolysis noted. Ordering Provider: WISAM GRIER Report Released Date/Time: Oct 04, 2023 05:25 PM Reporting Lab: [facility] [address] [facility] [phone] Performing Lab: [facility] [address] [place] [phone] [facility] COMPREHEN SIVE METABOLIC PANEL GLUCOSE [MASS/VOLUM E] IN SERUM OR PLASMA 109 mg/dL 72 - 99 11/20 H Specimen Type: PLASMA Comment: No hemolysis noted. Ordering Provider: WISAM GRIER Report Released Date/Time: Oct 04, 2023 05:25 PM Reporting Lab: [facility] [address] [facility] [phone] Performing Lab: [facility] [address] [place] [phone] [facility] COMPREHEN SIVE METABOLIC PANEL SODIUM [MOLES/VOLU ME] IN SERUM OR PLASMA 140 meq/L 136 - 145 11/20 Specimen Type: PLASMA Comment: No hemolysis noted. Ordering Provider: WISAM GRIER Report Released Date/Time: Oct 04, 2023 05:25 PM Reporting Lab: [facility] [facility] [phone] Performing Lab: [facility] [address] [facility] [address] [facility] COMPREHEN SIVE METABOLIC PANEL POTASSIUM [MOLES/VOLU ME] IN SERUM OR PLASMA 4.0 meq/L 3.5 - 5 11/20 Specimen Type: PLASMA Comment: No hemolysis noted. Ordering Provider: WISAM GRIER Report Released Date/Time: Oct 04, 2023 05:25 PM Reporting Lab: [facility] [address] [place] [phone] Performing Lab: [facility] [address] [place] [phone] [place] [address] COMPREHEN SIVE METABOLIC PANEL CHLORIDE [MOLES/VOLU ME] IN SERUM OR PLASMA 107 meq/L 98 - 107 11/20 Specimen Type: PLASMA Comment: No hemolysis noted. Ordering Provider: WISAM GRIER Report Released Date/Time: Oct 04, 2023 05:25 PM Reporting Lab: [facility] [address] [place] [phone] Performing Lab: [facility] [address] [place] [phone] [facility] COMPREHEN SIVE METABOLIC PANEL CARBON DIOXIDE, TOTAL [MOLES/VOLU ME] IN SERUM OR PLASMA 24 meq/L 22 - 31 11/20 Specimen Type: PLASMA Comment: No hemolysis noted. Ordering Provider: WISAM GRIER Report Released Date/Time: Oct 04, 2023 05:25 PM Reporting Lab: [facility] [address] [facility] [phone] Performing Lab: [facility] [address] [place] [phone] [facility] COMPREHEN SIVE METABOLIC PANEL CALCIUM [MASS/VOLUM E] IN SERUM OR PLASMA 9.2 mg/dL 8.4 - 10.4 11/20 Specimen Type: PLASMA Comment: No hemolysis noted. Ordering Provider: WISAM GRIER Report Released Date/Time: Oct 04, 2023 05:25 PM Reporting Lab: [facility] [address] [place] [phone] Performing Lab: [facility] [address] [place] [phone] [place] [address] COMPREHEN SIVE METABOLIC PANEL PROTEIN [MASS/VOLUM E] IN SERUM OR PLASMA 7.2 g/dL 6 - 8.6 11/20 Specimen Type: PLASMA Comment: No hemolysis noted. Ordering Provider: WISAM GRIER Report Released Date/Time: Oct 04, 2023 05:25 PM Reporting Lab: [facility] [address] [place], [place] [phone] Performing Lab: [facility] [address] [place], [place] [phone] [place] [address] COMPREHEN SIVE METABOLIC PANEL ALBUMIN [MASS/VOLUM E] IN SERUM OR PLASMA 3.8 g/dL 3.4 - 5 11/20 Specimen Type: PLASMA Comment: No hemolysis noted. Ordering Provider: WISAM GRIER Report Released Date/Time: Oct 04, 2023 05:25 PM Reporting Lab: [facility] [address] [place] [phone] Performing Lab: [facility] [address] [place] [phone] [place] [address] COMPREHEN SIVE METABOLIC PANEL BILIRUBIN.T OTAL [MASS/VOLUM E] IN SERUM OR PLASMA 0.9 mg/dL 0.2 - 1.2 11/20 Specimen Type: PLASMA Comment: No hemolysis noted. Ordering Provider: WISAM GRIER Report Released Date/Time: Oct 04, 2023 05:25 PM Reporting Lab: [facility] [address] [place] [phone] Performing Lab: [facility] [address] [place] [phone] [facility] COMPREHEN SIVE METABOLIC PANEL ALKALINE PHOSPHATASE [ENZYMATIC ACTIVITY/VO LUME] IN SERUM OR PLASMA 71 U/L 40 - 150 11/20 Specimen Type: PLASMA Comment: No hemolysis noted. Ordering Provider: WISAM GRIER Report Released Date/Time: Oct 04, 2023 05:25 PM Reporting Lab: [facility] [address] [facility] [phone] Performing Lab: [facility] [address] [facility] [phone] [facility] COMPREHEN SIVE METABOLIC PANEL ASPARTATE AMINOTRANSF ERASE [ENZYMATIC ACTIVITY/VO LUME] IN SERUM OR PLASMA 16 U/L 5 - 34 11/20 Specimen Type: PLASMA Comment: No hemolysis noted. Ordering Provider: WISAM GRIER Report Released Date/Time: Oct 04, 2023 05:25 PM Reporting Lab: [facility] [address] [place] [phone] Performing Lab: [address] [phone] [facility] COMPREHEN SIVE METABOLIC PANEL ALANINE AMINOTRANSF ERASE [ENZYMATIC ACTIVITY/VO LUME] IN SERUM OR PLASMA 12 U/L 8 - 40 11/20 Specimen Type: PLASMA Comment: No hemolysis noted. Ordering Provider: WISAM GRIER Report Released Date/Time: Oct 04, 2023 05:25 PM Reporting Lab: [facility] [address] [place] [phone] Performing Lab: [facility] [address] [place] [phone] [facility] COMPREHEN SIVE METABOLIC PANEL GLOMERULAR FILTRATION RATE/1.73 SQ M.PREDICTED [VOLUME RATE/AREA] IN SERUM, PLASMA OR BLOOD BY CREATININE- BASED FORMULA (CKD-EPI 2020) 80.4 60 11/20 Specimen Type: PLASMA Comment: No hemolysis noted. Ordering Provider: WISAM GRIER Report Released Date/Time: Oct 04, 2023 05:25 PM Reporting Lab: [facility] [address] [facility] [phone] Performing Lab: [facility] [address] HGA1C HEMOGLOBIN A1C/HEMOGLO BIN.TOTAL IN BLOOD 5.6 4.0 - 6.0 11/20 Specimen Type: BLOOD No comment entered. Ordering Provider: WISAM GRIER Report Released Date/Time: Oct 04, 2023 05:25 PM Reporting Lab: [facility] [address] [place] [address] Performing Lab: [address] VITAMIN D, 25-HYDROX Y 25-HYDROXYV ITAMIN [...] Oct 04, 2023 05:25 PM Reporting Lab: [facility] [address] [place] [address] Performing Lab: [address] CBC LEUKOCYTES [#/VOLUME] IN BLOOD BY AUTOMATED COUNT 7.9 10*3/u L 3.6 - 11.2 11/20 Specimen Type: BLOOD No comment entered. Ordering Provider: WISAM GRIER Report Released Date/Time: Oct 04, 2023 05:25 PM Reporting Lab: [facility] [address] [place] [address] Performing Lab: [facility] [address] [place] [address] CBC ERYTHROCYTE S [#/VOLUME] IN BLOOD BY AUTOMATED COUNT 3.64 10*6/u L 4.10 - 5.70 11/20 L Specimen Type: BLOOD No comment entered. Ordering Provider: WISAM GRIER Report Released Date/Time: Oct 04, 2023 05:25 PM Reporting Lab: [facility] [address] [place] [phone] Performing Lab: [facility] [address] [place] [phone] [facility] CBC HEMOGLOBIN [MASS/VOLUM E] IN BLOOD 11.9 g/dL 13.1 - 16.8 11/20 L Specimen Type: BLOOD No comment entered. Ordering Provider: WISAM GRIER Report Released Date/Time: Oct 04, 2023 05:25 PM Reporting Lab: [address] [address] Performing Lab: [address] [phone] [place] [address] CBC HEMATOCRIT [VOLUME FRACTION] OF BLOOD 35.0 38.2 - 48.4 11/20 L Specimen Type: BLOOD No comment entered. Ordering Provider: WISAM GRIER Report Released Date/Time: Oct 04, 2023 05:25 PM Reporting Lab: [address] [address] Performing Lab: [address] [phone] [place] [address] CBC MCV [ENTITIC VOLUME] BY AUTOMATED COUNT 96.2 fL 80.0 - 100.0 11/20 Specimen Type: BLOOD No comment entered. Ordering Provider: WISAM GRIER Report Released Date/Time: Oct 04, 2023 05:25 PM Reporting Lab: [facility] [address] [place] [phone] Performing Lab: [address] [phone] [place] [address] CBC MCH [ENTITIC MASS] BY AUTOMATED COUNT 32.7 pg 27.0 - 34.0 11/20 Specimen Type: BLOOD No comment entered. Ordering Provider: WISAM GRIER Report Released Date/Time: Oct 04, 2023 05:25 PM Reporting Lab: [facility] [address] [place] [phone] Performing Lab: [facility] [address] [place] [phone] [facility] CBC MCHC [MASS/VOLUM E] BY AUTOMATED COUNT 34.0 g/dL 33.0 - 36.0 11/20 Specimen Type: BLOOD No comment entered. Ordering Provider: WISAM GRIER Report Released Date/Time: Oct 04, 2023 05:25 PM Reporting Lab: [facility] [address] [place] [phone] Performing Lab: [address] [phone] [facility] CBC PLATELETS [#/VOLUME] IN BLOOD BY AUTOMATED COUNT 189 10*3/u L 150 - 400 11/20 Specimen Type: BLOOD No comment entered. Ordering Provider: WISAM GRIER Report Released Date/Time: Oct 04, 2023 05:25 PM Reporting Lab: [facility] [address] [place] [phone] Performing Lab: [address] [phone] [facility] CBC PLATELET MEAN VOLUME [ENTITIC VOLUME] IN BLOOD BY AUTOMATED COUNT 9.6 fL 7.5 - 11.2 11/20 Specimen Type: BLOOD No comment entered. Ordering Provider: WISAM GRIER Report Released Date/Time: Oct 04, 2023 05:25 PM Reporting Lab: [facility] [address] [place] [phone] Performing Lab: [facility] [address] [place] [phone] [facility] CBC ERYTHROCYTE DISTRIBUTIO N WIDTH [RATIO] BY AUTOMATED COUNT 14.6 11.8 - 15.1 11/20 Specimen Type: BLOOD No comment entered. Ordering Provider: WISAM GRIER Report Released Date/Time: Oct 04, 2023 05:25 PM Reporting Lab: [facility] [address] [place] [phone] Performing Lab: [facility] [address] [facility] [phone] [facility] CBC LYMPHOCYTES /100 LEUKOCYTES IN BLOOD BY AUTOMATED COUNT 17 11/20 Specimen Type: BLOOD No comment entered. Ordering Provider: WISAM GRIER Report Released Date/Time: Oct 04, 2023 05:25 PM Reporting Lab: [facility] [address] [facility] [phone] Performing Lab: [facility] [address] [place] [phone] [facility] CBC MONOCYTES/1 00 LEUKOCYTES IN BLOOD BY AUTOMATED COUNT 11 11/20 Specimen Type: BLOOD No comment entered. Ordering Provider: WISAM GRIER Report Released Date/Time: Oct 04, 2023 05:25 PM Reporting Lab: [facility] [address] [place] [phone] Performing Lab: [facility] [address] [place] [phone] [facility] CBC NEUTROPHILS /100 LEUKOCYTES IN BLOOD BY AUTOMATED COUNT 69 11/20 Specimen Type: BLOOD No comment entered. Ordering Provider: WISAM GRIER Report Released Date/Time: Oct 04, 2023 05:25 PM Reporting Lab: [facility] [address] [place] [phone] Performing Lab: [facility] [address] [place] [phone] [facility] CBC EOSINOPHILS /100 LEUKOCYTES IN BLOOD BY AUTOMATED COUNT 2 11/20 Specimen Type: BLOOD No comment entered. Ordering Provider: WISAM GRIER Report Released Date/Time: Oct 04, 2023 05:25 PM Reporting Lab: [facility] [address] [facility] [phone] Performing Lab: [facility] [address] [place] [phone] [facility] CBC BASOPHILS/1 00 LEUKOCYTES IN BLOOD BY AUTOMATED COUNT 0 11/20 Specimen Type: BLOOD No comment entered. Ordering Provider: WISAM GRIER Report Released Date/Time: Oct 04, 2023 05:25 PM Reporting Lab: [facility] [address] [place] [phone] Performing Lab: [facility] [address] [place] [phone] [facility] CBC LYMPHOCYTES [#/VOLUME] IN BLOOD BY AUTOMATED COUNT 1.33 10*3/u L 0.77 - 4.50 11/20 Specimen Type: BLOOD No comment entered. Ordering Provider: WISAM GRIER Report Released Date/Time: Oct 04, 2023 05:25 PM Reporting Lab: [facility] [address] [place] [phone] Performing Lab: [address] [phone] CBC MONOCYTES [#/VOLUME] IN BLOOD BY AUTOMATED COUNT 0.90 10*3/u L 0.19 - 0.80 11/20 H Specimen Type: BLOOD No comment entered. Ordering Provider: WISAM GRIER Report Released Date/Time: Oct 04, 2023 05:25 PM Reporting Lab: [facility] [address] [place] [phone] Performing Lab: [address] [phone] [facility] CBC NEUTROPHILS [#/VOLUME] IN BLOOD BY AUTOMATED COUNT 5.47 10*3/u L 2.10 - 8.00 11/20 Specimen Type: BLOOD No comment entered. Ordering Provider: WISAM GRIER Report Released Date/Time: Oct 04, 2023 05:25 PM Reporting Lab: [facility] [address] [place] [phone] Performing Lab: [facility] [address] [place] [phone] [facility] CBC EOSINOPHILS [#/VOLUME] IN BLOOD BY AUTOMATED COUNT 0.12 10*3/u L 0.00 - 0.60 11/20 Specimen Type: BLOOD No comment entered. Ordering Provider: WISAM GRIER Report Released Date/Time: Oct 04, 2023 05:25 PM Reporting Lab: [facility] [address] [place] [phone] Performing Lab: [place] [id number] [place] [address] CBC BASOPHILS [#/VOLUME] IN BLOOD BY AUTOMATED COUNT 0.03 10*3/u L 0.00 - 0.20 11/20 Specimen Type: BLOOD No comment entered. Ordering Provider: WISAM GRIER Report Released Date/Time: Oct 04, 2023 05:25 PM Reporting Lab: [address] [phone] Performing Lab: [address] TSH W/ REFLEX FT4 (STL) THYROTROPIN [UNITS/VOLU ME] IN SERUM OR PLASMA 4.294 u[IU]/ mL 0.47 - 5 11/20 Specimen Type: PLASMA No comment entered. Ordering Provider: WISAM GRIER Report Released Date/Time: Oct 04, 2023 05:25 PM Reporting Lab: [address] [address] Performing Lab: [phone] [place] [address] FREE T4 (STL) THYROXINE (T4) FREE [MASS/VOLUM E] IN SERUM OR PLASMA 0.90 ng/mL 0.7 - 1.48 11/20 Specimen Type: PLASMA No comment entered. Ordering Provider: WISAM GRIER Report Released Date/Time: Oct 04, 2023 05:25 PM Reporting Lab: [address] [phone] Performing Lab: [id number] [place], [place] [id number] [facility] PROST. SPECIFIC AG.(PB-ST L) PROSTATE SPECIFIC AG [...] Oct 04, 2023 05:25 PM Reporting Lab: [facility] [address] [place] [phone] Performing Lab: [address] FREE T4 THYROXINE (T4) FREE [MASS/VOLUM E] IN SERUM OR PLASMA 1.34 ng/mL 0.7 - 1.48 11/28 Specimen Type: SERUM No comment entered. Ordering Provider: WISAM GRIER Report Released Date/Time: Nov 19, 2022 04:37 PM Reporting Lab: [facility] [address] [place] [phone] Performing Lab: [place] [phone] [facility] TSH (MA-PB-ST L) THYROTROPIN [UNITS/VOLU ME] IN SERUM OR PLASMA 3.433 u[IU]/ mL 0.47 - 5 11/28 Specimen Type: SERUM No comment entered. Ordering Provider: WISAM GRIER Report Released Date/Time: Nov 19, 2022 04:37 PM Reporting Lab: [facility] [address] [place] [phone] Performing Lab: [facility] [address] [place], [place] [phone] [facility] Vital Signs Combined list of inpatient and outpatient Vital Signs from Department of Defense and Veterans Affairs, ranging from 12 months to all on record, depending upon the facility. Vital Sign Value Date Comments Source SYSTOLIC BLOOD PRESSURE 128 11/19/2023 14:57:21 [facility] DIASTOLIC BLOOD PRESSURE 81 11/19/2023 14:57:21 [facility] PULSE OXIMETRY 96 11/19/2023 14:57:21 [facility] WEIGHT 197 11/19/2023 14:57:21 [facility] BMI 26 kg/m2 11/19/2023 14:57:21 [facility] PAIN 0 11/19/2023 14:57:21 [facility] TEMPERATURE 98.1 11/19/2023 14:57:21 [facility] PULSE 64 11/19/2023 14:57:21 [facility] RESPIRATION 18 11/19/2023 14:57:21 [facility] Encounters Combined list of: 1) Encounters from Department of [facility] facilities going backup to the last 18 months, not all [place] inpatient encounters are included; 2) Encounters from the Department of [facility] facilities going backup to 280 months. Location Location Details Encounter Type Encounter Number Reason For Visit Attending Provider ADM Date DC Date Status Disposition Source [facility] Outpatient Encounter [id number] 01/23 [facility] Outpatient Encounter [id number] 02/27 [facility] Outpatient Encounter [id number] 09/30 [facility] Outpatient Encounter [id number] 11/18 [facility] FEE [id number] Diagnos is: ICD-10- CM I25.10 [place] heart disease of [place]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 Outpatient Encounter [id number] Diagnos is: ICD-10- CM Z13.5 Encount er for screeni ng for eye and ear disorde rs CHEYENNE DOUGLASS 11/20 [facility] Outpatient Encounter [id number] BASIM GRIER MMAD T 11/30 [facility] Social History Combined list of available smoking, tobacco, and other social history from Department of Defense and Veterans Affairs facilities. Social History Type Response Date Comment [facility] Tobacco smoking status [facility]-TOBACCO NEVER USED 11/19/2023 [facility] History of tobacco use [place]-TOBACCO FORMER USER 08/02/2022 [facility] History of tobacco use QUIT TOBACCO >7 YEARS AGO 06/20/2006 [facility] History of tobacco use CURRENT NON-TOBACCO USER-HX OF USE 08/16/2005 [facility] History of tobacco use CURRENT NON-TOBACCO USER-HX OF USE 04/06/2004 [facility] Plan of Care List of future care activities from Department of Veterans Affairs facilities. Additional future care activities may be listed in the Assessment and Plan section. Date/Time Care Activity Care Activity Detail Facili ty 09/28/2024 AMBULATORY - MEDICINE AMBULATORY - MEDICI [facility]
--- OUTSIDE RECORDS SUMMARY | 2024-06-02 00:24 | XMS_ITS | Encounter Summary ---
Author Organization [facility] Address 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 Gender Identity Not on file Sexual [...] INTERFACE SYSTEM - 09/24/2007 6:25 PM CDT [facility] [address] [place], [place] [address] Admit Date: 09/24/2007 MITCHELL RODRIGUEZ Sex: M Admit Prov: ROSANNE SANTANA Date: 1950 Primary Care Prov: CMRN: [id number] [id number] Ordering Prov: N/A Accession Number: [id number] Interpretation Date of Procedure: 09/24/2007 Procedure Type: 1 Day Exercise Stress Myocardial Perfusion Study Clinical Indication: 57-year-old male with coronary artery disease, status post PCI of the LAD in 2003 and obtuse marginal in 2004. He now reports dyspnea exertion. Medications: Plavix simvastatin metoprolol aspirin Exercise Stress Procedure: The patient exercised for 12 minutes and 5 seconds on a Shadi protocol, achieving an estimated workload of 13 METS. The resting heart rate was 64 bpm, and increased to 142 bpm at peak exercise, which was 88 % of the predicted maximum heart rate. The resting blood pressure was 109 / 88 and 131 / 71 at peak exercise, demonstrating a normal response to exercise. Exercise was terminated due to shortness of breath. ECG: NSR. Normal tracing. No ischemic ST segment changes developed during treadmill exercise. There were no arrhythmias. Nuclear Imaging Protocol: Myocardial perfusion imaging was performed at rest approximately 60 minutes following the intravenous injection of 10 mCi TC99m tetrofosmin. At peak exercise, the patient was injected intravenously with 41 mCi TC99m tetrofosmin and exercise was continued for 2 minutes. Gated post-stress tomographic imaging was performed approximately 30 minutes later in same manner. SPECT reconstruction was performed in the short, vertical long and horizontal long axis views in both rest and stress image sets. Findings: There is a moderate size, moderate intensity perfusion defect in the lateral segments on stress imaging. This defect is unchanged on rest imaging. Gated SPECT examination reveals a dilated left ventricle. There is lateral hypokinesis. LVEF 49 %. Impression: 1. Abnormal myocardial perfusion study. Moderate size, moderate intensity, fixed perfusion defect in the lateral segments suggesting a region of myocardial infarction. There is no ischemia. 2. Abnormal gated SPECT examination. Dilated left ventricle. Lateral hypokinesis. LVEF 49 %. 3. No ischemic ST segment changes developed during treadmill exercise. 4. Good exercise capacity. 5. The technical quality of the study is good. 6. Prior study in 2006 reported a partially reversible inferolateral defect, LVEF 48 %. Recommendations: Clinical correlation . Dictated by: MITCHELL WRIGHT 09/24/2007 18:16 Electronically signed by: MITCHELL WRIGHT 09/24/2007 18:25 Procedure Note Mitchell Wright MD - 09/30/2007 [facility] [address] [place], [place] [address] Admit Date: 09/24/2007 MITCHELL RODRIGUEZ Sex: M Admit Prov: ROSANNE SANTANA Date: 1950 Primary Care Prov: CMRN: [id number] Room: [facility] SSN: [id number] IMAGING SERVICES Ordering Prov: N/A Interpretation Date [...] Electronically signed by: MITCHELL WRIGHT 09/24/2007 18:25 us Rosanne Santana MD NM ORDERABLES Final Result INTERFACE SYSTEM Refer to clinic/hospital department documented in this encounter Visit Diagnoses Diagnosis Coronary atherosclerosis of [place] coronary artery documented in this encounter Care Teams Power Truck Driver Relationship Specialty Start Date End Date Rosanne Santana MD [address] [place] [address] PCP - General 10/24/03 documented as of this encounter
--- OUTSIDE RECORDS SUMMARY | 2024-06-02 00:24 | XMS_ITS | Encounter Summary ---
Author Organization [facility] [employer] Address 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
--- OUTSIDE RECORDS SUMMARY | 2024-06-02 00:24 | XMS_ITS | Clinical Summary ---
Author Organization [facility] Address [address] 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 Gender Identity Not on file Sexual Orientation Not on file Plan of Treatment Health Maintenance Due Date Last Done Comments DTAP/TDAP/TD VACCINES (1 - Tdap) 02/01/1967 PNEUMOCOCCAL VACCINE 50+ YEARS (1 of 1 - PCV) 02/01/19 98 ZOSTER VACCINE (1 of 2) 02/01/1998 RSV VACCINE (60+ or ) (1 - 1-dose 75+ series) 02/01/2023 INFLUENZA VACCINE (#1) 2023 Insurance [facility] BLUE ACCESS/TRUE BLUE PPO Care Teams Window Assembler Relationship Specialty Start Date End Date Rosanne Santana MD [address] [place] [address] [place] [address] PCP - General 10/24/03
--- OUTSIDE RECORDS SUMMARY | 2024-06-02 00:24 | XMS_ITS | Encounter Summary ---
Author Organization [facility] Address [address] [place] [address] Care Team Providers Care Clothing Trades Workers Name Role Phone Nikky Reyes MD Primary Care Provider Encounter Details Date Type Department Care Team (Late st Contact Info) Description 11/27/2023 Prep for Procedure [facility] Diagnostic [facility] [address] [place], [place] [id number] Kwaku Martin MD [address] [place], [place] [id number] Social History Tobacco Use Types Packs/Day Years Used Date Smoking Tobacco: Former Cigarettes 2 15 S tarted: 1965 Smokeless Tobacco: Never Alcohol Use Standard Drinks/Week Comments Not Currently 0 (1 standard drink = 0.6 oz pur e alcohol) sober 45 years Sex and Gender Information Value Date Recorded Sex Assigned at Not on file 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 There is no acute cardiopulmonary process. Referred By: Interpreted By: Richard Chaparro MD, 11/28/2023 9:57 AM Narrative 11/28/2023 9:58 AM CDT [place] [id number] PROCEDURE: XR CHEST PA+LAT. 11/28/2023 8:53 AM. TECHNIQUE: 2 views (PA and Lateral) of the chest were performed. HISTORY: Preop evaluation. COMPARISON: None. FINDINGS: Support Devices: None. Cardiac Silhouette/Mediastinum/Shirley: The cardiac, mediastinal, and hilar contours are within normal limits for age. A coronary artery stent is present Lungs/Pleural Spaces: The lungs and pleural spaces are clear. Chest Wall/Diaphragm/Upper Abdomen: Multilevel degenerative changes of the thoracic spine The remaining thoracic musculoskeletal structures and the upper abdomen are within normal limits for age. Procedure Note Richard Chaparro MD - 11/28/[address] [address] PROCEDURE: XR CHEST PA+LAT. 11/28/2023 8:53 AM. [...] By: Richard Chaparro MD, 11/28/2023 9:57 AM Kwaku Martin MD GENERAL IMAGING Final R [...] Rule Out 04/10/2024 04/10/2024 04/10/2024 1:35 PM PLUMBING FOREMAN Influenza - Seasonal 04/10/2024 04/10/2024 025 12:32 AM PLUMBING FOREMAN documented as of this encounter Care Teams Clothing Trades Workers Relationship Specialty Start Date End Date Nikky Reyes MD [address] [place] [address] PCP - General FAMILY PRACTICE 05/04/21 documented as of this encounter
--- OUTSIDE RECORDS SUMMARY | 2024-06-02 00:24 | XMS_ITS | Encounter Summary ---
Author Organization [facility] Address [address] [place] [address] Care Team Providers Care Catering Coordinator Name Role Phone Rosanne Santana MD Primary Care Provider [phone] Encounter Details Date Type Department Care Team (Latest Contact Info) Description 05/21/2006 Outpatient Historical HIS [facility] Rosanne Sanchez MD 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 Gender Identity Not on file Sexual Orientation Not on file documented as of this encounter Plan of Treatment Not on file documented as of this encounter Procedures Procedure Name Priority Date/Time Associated Diagnosis Comments CBC WITH DIFFERENTIAL Routine 05/21/2006 7:05 AM SEGMENT PRODUCER CBC WITH DIFFERENTIAL Routine 05/21/2006 7:05 AM SEGMENT PRODUCER PTT Routine 05/21/2006 7:05 AM SEGMENT PRODUCER PROTIME-INR Routine 05/21/2006 7:05 AM SEGMENT PRODUCER BASIC METABOLIC PANEL Routine 05/21/2006 7:05 AM SEGMENT PRODUCER documented in this encounter Results * CBC WITH DIFFERENTIAL (05/21/2006 7:05 AM SEGMENT PRODUCER) NEUTROPHILS 61 45 - 70 % INTERFAC [...] 0.20 K/uL INTERFACE SYSTEM 05/21/2006 7:05 AM SEGMENT PRODUCER Rosanne Santana MD HEMATOLOGY ORDERABLES Edited Performing Organization Address City/[facility] Co de Phone Number INTERFACE SYSTEM Refer to clinic/hospital department * CBC WITH DIFFERENTIAL (05/21/2006 7:05 AM SEGMENT PRODUCER) WBC 5.9 4.0 - 9.8 K/uL INTERFACE [...] 12.4 fL INTERFACE SYSTEM 05/21/2006 7:05 AM SEGMENT PRODUCER us Rosanne Santana MD HEMATOLOGY ORDERABLES Edited Performing Organization Address City/State/[facility] Co de Phone Number INTERFACE SYSTEM Refer to clinic/hospital department * PTT (05/21/2006 7:05 AM SEGMENT PRODUCER) PTT 28.0 24.4 - 36.4 Seconds INTERFACE SYSTEM Comment: PTT Therapeutic Range: Heparin Level PTT (seconds) <0.10 units/mL <53 0.10 - 0.30 units/mL 53 - 67 0.30 - 0.70 units/mL* 67 - 95* 0.70 - 1.00 units/mL 95 - 116 *corresponds to therapeutic range for unfractionated heparin 05/21/2006 7:05 AM SEGMENT PRODUCER Rosanne Santana MD HEMATOLOGY ORDERABLES Edited Performing Organization Address [facility] Phone Number INTERFACE SYSTEM Refer to clinic/hospital department * PROTIME-INR (05/21/2006 7:05 AM SEGMENT PRODUCER) PROTIME 14.1 12.7 - 15.1 Seconds INTERFACE SYSTEM INR 1.1 0.9 - 1.1 INTERFACE SYSTEM Comment: INR Therapeutic Range: Adult: 2.0 - 3.0 for pulmonary embolism or prophylaxis against venous thrombosis or systemic embolization. 2.0 - 3.0 for patients with tissue heart valves. 2.5 - 3.5 for patients with mechanical heart valves or post PA. Pediatric (12 years and under): 1.5 - 3.0 Although the target range in children is not well established , INR values of 1.5 - 3.0 are recommended for most patients. Higher values have been used in children with prosthetic cardiac valves and hereditary clotting disorders. (<3 days) therapeutic ranges have not been established. 05/21/2006 7:05 AM SEGMENT PRODUCER Rosanne Santana MD HEMATOLOGY ORDERABLES Edited Performing Organization Address [facility] de Phone Number INTERFACE SYSTEM Refer to clinic/hospital department * (ABNORMAL) BASIC METABOLIC PANEL (05/21/2006 7:05 AM SEGMENT PRODUCER) GLUCOSE 104(H) 65 - 99 mg/dL INTERFACE [...] and non- Americans is available on the [facility] Intranet at: [email or web address] Select: Lab Policies and Procedures Select: Reference Ranges - GFR 05/21/2006 7:05 AM SEGMENT PRODUCER us Rosanne Santana MD CHEMISTRY ORDERABLES Edited INTERFACE SYSTEM Refer to clinic/hospital department documented in this encounter Visit Diagnoses Diagnosis Coronary atherosclerosis of [place] coronary artery- Primary documented in this encounter Care Teams Catering Coordinator Relationship Specialty Start Date End Date Rosanne Santana MD [address] [place] [address] PCP - General 10/24/03 documented as of this encounter
--- OUTSIDE RECORDS SUMMARY | 2024-06-02 00:24 | XMS_ITS | Encounter Summary ---
Author Organization [employer] Address 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
--- OUTSIDE RECORDS SUMMARY | 2024-06-02 00:24 | XMS_ITS | Encounter Summary ---
Author Organization [employer] Address [address] [place] [address] Care Team Providers Care Security Chief Museum Name Role Phone Rosanne Santana MD Primary Care Provider [phone] Encounter Details Date Type Department Care Team (Late st Contact Info) Description 06/25/2007 Inpatient Historical HIS [place] [address] [facility] [address] [place] [address] Jono Scherer MD [address] [facility] [address] [place] [address] Unspecified Chest Pain Social History Tobacco Use Types Packs/Day Years Used Date Smoking Tobacco: Never Assessed Sex and Gender Information Value Date Recorded Sex Assigned at Not on file 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 #: [id number] POC: Attending MD: Romel Performing MD: Romel Indications and History: INDICATIONS: Unstable angina. Procedure(s) Performed: DIAGNOSTIC PROCEDURES: Left heart catheterization. Left ventriculography. Selective coronary angiography. SUPPORT INTERVENTIONS: Angioplasty. Stent. Stent. Stent Placement. Stent Placement. Study Conclusions: SUMMARY - Global left ventricular function was borderline normal. EF estimated by contrast ventriculography was 50 %. - Mid [...] 09:06:43 Procedure Note Provider, Historical - 07/01/2007 [address] [place] [address] [email or web address] Cardiac Catheterization Comprehensive Report Patient: Mitchell Rodriguez Study ID: [id number] Gender: M : 1950 Age: 57 years Race: 1 Room: Bed: Height: 73 in ( 185.4 cm ) Study Date: June 25, 2007 Patient status: Inpatient Weight: 183.9 lb ( 83.6 kg ) Access. #: [id number] POC: Attending MD: Romel Lozada MD: Romel [...] Scherer MD Confirmed July 01, 2007 09:06:43 us Jono Scherer MD FLUOROSCOPY ORDERABLES Final Result Performing Organization Address City/[facility]/ZIP Co de Phone Number INTERFACE SYSTEM Refer to clinic/hospital department * CKMB W/REFLEX CK (06/26/2007 4:50 AM CDT) CKMB 3.0 <=6.7 ng/mL [facility] CKMB INTERP Negative [facility] Blood specimen (specimen) 06/26/2007 4:50 AM CDT 06/26/2007 4:59 AM CDT Jono Scherer MD CHEMISTRY ORDERABLES Edited Performing Organization Address [facility]/ZIP Co de Phone Number [facility] [address] [place] [address] * (ABNORMAL) CBC WITH DIFFERENTIAL (06/26/2007 4:50 AM CDT) WBC 6.5 4.0 - 9.8 K/uL [facility] MCH 31.8 27.2 - 32.6 pg [facility] MPV 9.9 9.3 - 12.4 fL [facility] HEMATOCRIT 40.2 40.0 - 48.0 % [facility] RDW-STDEV 44.4 37.1 - 48.7 fL [facility] RBC 4.31(L) 4.50 - 5.40 M/uL [facility] MCHC 34.1 31.5 - 35.5 % [facility] MCV 93.3 82.0 - 99.0 fL [facility] PLATELETS 146 140 - 350 K/uL [facility] HEMOGLOBIN 13.7 13.6 - 16.5 g/dL [facility] RDW 13.1 11.5 - 14.5 % [facility] BASOPHILS 0 0 - 2 % [facility] BASOPHILS ABSOLUTE 0.02 0.00 - 0.20 K/uL [facility] MONOCYTES 13 3 - 13 % [facility] MONOCYTE ABSOLUTE 0.83 0.10 - 1.30 K/uL [facility] NEUTROPHILS 66 45 - 70 % [facility] NEUTROPHIL ABSOLUTE 4.29 1.90 - 7.00 K/uL [facility] EOSINOPHILS 3 0 - 7 % [facility] EOSINOPHIL ABSOLUTE 0.16 0.00 - 0.70 K/uL [facility] LYMPHOCYTES 18 16 - 45 % [facility] LYMPHOCYTE ABSOLUTE 1.19 0.70 - 4.50 K/uL [facility] Blood specimen (specimen) 06/26/2007 4:50 AM CDT 06/26/2007 4:59 AM CDT Jono Scherer MD HEMATOLOGY ORDERABLES Edited Performing Organization Address [facility] Phone Number INTERFACE SYSTEM Refer to clinic/hospital department [facility] [address] [place] [address] * (ABNORMAL) PHOSPHORUS (06/26/2007 4:50 AM CDT) PHOSPHORUS 2.2(L) 2.5 - 4.5 mg/dL [facility] Blood specimen (specimen) 06/26/2007 4:50 AM CDT 06/26/2007 4:59 AM CDT Jono Scherer MD CHEMISTRY ORDERABLES Final Re sult Performing Organization Address [facility] de Phone Number [facility] [address] [place] [address] * MAGNESIUM LEVEL (06/26/2007 4:50 AM CDT) MAGNESIUM 2.2 1.5 - 2.5 mg/dL [facility] Blood specimen (specimen) 06/26/2007 4:50 AM CDT 06/26/2007 4:59 AM CDT Jono Scherer MD CHEMISTRY ORDERABLES Final Re sult Performing Organization Address [facility] de Phone Number [facility] [address] [place] [address] * (ABNORMAL) BASIC METABOLIC PANEL (06/26/2007 4:50 AM CDT) BUN 15 6 - 20 mg/dL [facility] CHLORIDE 103 96 - 108 mmol/L [facility] GLUCOSE 97 65 - 99 mg/dL [facility] SODIUM 135 135 - 145 mmol/L [facility] CALCIUM 8.3(L) 8.4 - 10.2 mg/dL [facility] CO2 26 22 - 30 mmol/L [facility] CREATININE 0.78 0.67 - 1.17 mg/dL [facility] POTASSIUM 3.7 3.5 - 4.9 mmol/L [facility] GFR, >60 >=60 mL/min/1. 7 sq meter [facility] GFR >60 >=60 mL/min/1. 7 sq meter [facility] Comment: Estimated GFR rate interpretative information for both Americans and non- Americans is available on the [facility] Intranet at: [email or web address] Select: Lab Policies and Procedures Select: Reference Ranges - GFR Blood specimen (specimen) 06/26/2007 4:50 AM CDT 06/26/2007 4:59 AM CDT Jono Scherer MD CHEMISTRY ORDERABLES Edited [facility] [address] [place] [address] * (ABNORMAL) TROPONIN (W/REFLEX CKMB/CK) (06/26/2007 4:50 AM CDT) TROPONIN T 0.06(AA) <=0.03 ng/mL [facility] Comment: Persistent abnormal result TROPONIN T INTERP See Below [facility] Comment: Elevated Troponin-T,Consistent with Myocardial Injury Blood specimen (specimen) 06/26/2007 4:50 AM CDT 06/26/2007 4:59 AM CDT Jono Scherer MD CHEMISTRY ORDERABLES Edited [facility] [address] [place] [address] * CKMB W/REFLEX CK (06/25/2007 8:18 PM CDT) CKMB 5.8 <=6.7 ng/mL [facility] CKMB INTERP Negative [facility] Blood specimen (specimen) 06/25/2007 8:18 PM CDT 06/25/2007 8:23 PM CDT Jono Scherer MD CHEMISTRY ORDERABLES Edited Performing Organization Address [facility] Co de Phone Number [facility] [address] [place] [address] * (ABNORMAL) TROPONIN (W/REFLEX CKMB/CK) (06/25/2007 8:18 PM CDT) [facility] TROPONIN T 0.05(AA) <=0.03 ng/mL [facility] Comment: Results called to Lynne at 06/25/07 9:43 PM and read back verified. TROPONIN T INTERP See Below [facility] Comment: Elevated Troponin-T,Consistent with Myocardial Injury Blood specimen (specimen) 06/25/2007 8:18 PM CDT 06/25/2007 8:23 PM CDT Jono Scherer MD CHEMISTRY ORDERABLES Edited Performing Organization Address City/[facility]/ZIP Co de Phone Number [facility] [address] [place] [place] [address] * (ABNORMAL) BASIC METABOLIC PANEL (06/25/2007 1:44 PM CDT) Pathologist [facility] GLUCOSE 94 65 - 99 mg/dL [facility] SODIUM 138 135 - 145 mmol/L [facility] CALCIUM 8.1(L) 8.4 - 10.2 mg/dL [facility] CO2 24 22 - 30 mmol/L [facility] CREATININE 0.76 0.67 - 1.17 mg/dL [facility] POTASSIUM 3.8 3.5 - 4.9 mmol/L [facility] BUN 11 6 - 20 mg/dL [facility] CHLORIDE 105 96 - 108 mmol/L [facility] GFR, >60 >=60 mL/min/1. 7 sq meter [facility] GFR >60 >=60 mL/min/1. 7 sq meter [facility] Comment: Estimated GFR rate interpretative information for both Americans and non- Americans is available on the [facility] Intranet at: [email or web address] Select: Lab Policies and Procedures Select: Reference Ranges - GFR Blood specimen (specimen) 06/25/2007 1:44 PM CDT 06/25/2007 1:55 PM CDT us Alena Guardado MD CHEMISTRY ORDERABLES Edited [facility] [address] [place] [place] [address] * XR CHEST PA OR AP (06/25/2007 12:20 PM CDT) Anatomical Region Laterality Modality Chest Other 06/25/2007 12:2 0 PM CDT Narrative 06/25/2007 12:50 PM CDT [facility] [address] [place], [place] [address] Admit Date: 06/25/2007 MITCHELL RODRIGUEZ Sex: M Admit Prov: PAU DE LA CRUZ J Date: 1950 Primary Care Prov: CMRN: [id number] Room: [address] [place] [address] SSN: [id number] IMAGING SERVICES Ordering Prov: N/A Accession Number: [id number] Interpretation Chest single view 06/25/2007 History: Chest pain Findings: The right costophrenic angle is cut off the film. No infiltrate, pneumothorax or pleural effusion is seen. The cardiac silhouette appears prominent. . Dictated by: NIYAH HULL 06/25/2007 12:49 Electronically signed by: NIYAH HULL 06/25/2007 12:50 Procedure Note Niyah Hull - 06/25/2007 [facility] [address] [place], [place] [address] Admit Date: 06/25/2007 MICHAELMITCHELL VEE Sex: M Admit Prov: PAU DE LA CRUZ Date: 1950 Primary Care Prov: CMRN: [id number] Room: [address] [place] [address] SSN: [id number] IMAGING SERVICES Ordering Prov: N/A Interpretation Chest single view 06/25/2007 History: Chest pain Findings: The right costophrenic angle is cut off the film. Noinfiltrate, pneumothorax or pleural effusion is seen. The cardiac silhouetteappears prominent. . Dictated by: NIYAH HULL 06/25/2007 12:49 Electronically signed by: NIYAH HULL 06/25/2007 12:50 Jono Scherer MD DIAGNOSTIC IMAGING ORDERABLES Final Result * TROPONIN (W/REFLEX CKMB/CK) (06/25/2007 12:00 PM CDT) TROPONIN T <0.01 <=0.03 ng/mL [facility] TROPONIN T INTERP Negative [facility] Blood specimen (specimen) 06/25/2007 12:00 PM CDT 06/25/2007 12:12 PM CDT Jono Scherer MD CHEMISTRY ORDERABLES Edited [facility] [address] [place] [address] * (ABNORMAL) PTT (06/25/2007 12:00 PM CDT) PTT 79.1(H) 24.4 - 36.4 Seconds [facility] Comment: PTT Therapeutic Range: Heparin Level PTT (seconds) <0.10 units/mL <53 0.10 - 0.30 units/mL 53 - 67 0.30 - 0.70 units/mL* 67 - 95* 0.70 - 1.00 units/mL 95 - 116 *corresponds to therapeutic range for unfractionated heparin Blood specimen (specimen) 06/25/2007 12:00 PM CDT 06/25/2007 12:12 PM CDT Jono Scherer MD HEMATOLOGY ORDERABLES Final R esult Performing Organization Address City/[facility] Co de Phone Number [facility] [address] [place] [address] * (ABNORMAL) PROTIME-INR (06/25/2007 12:00 PM CDT) PROTIME 22.6(H) 12.7 - 15.1 Seconds [facility] INR 2.0(H) 0.9 - 1.1 [facility] Comment: INR Therapeutic Range: Adult: 2.0 - 3.0 for pulmonary embolism or prophylaxis against venous thrombosis or systemic embolization. 2.0 - 3.0 for patients with tissue heart valves. 2.5 - 3.5 for patients with mechanical heart valves or post PA. Pediatric (12 years and under): 1.5 - 3.0 Although the target range in children is not well established, INR values of 1.5 - 3.0 are recommended for most patients. Higher values have been used in children with prosthetic cardiac valves and hereditary clotting disorders. (<3 days) therapeutic ranges have not been established. Blood specimen (specimen) 06/25/2007 12:00 PM CDT 06/25/2007 12:12 PM CDT Jono Scherer MD HEMATOLOGY ORDERABLES Final R esult [facility] [address] [place], [address] [address] * (ABNORMAL) CBC WITH DIFFERENTIAL (06/25/2007 12:00 PM CDT) MCV 93.4 82.0 - 99.0 fL [facility] PLATELETS 156 140 - 350 K/uL [facility] HEMOGLOBIN 14.0 13.6 - 16.5 g/dL [facility] RDW 13.2 11.5 - 14.5 % [facility] WBC 6.3 4.0 - 9.8 K/uL [facility] MCH 32.0 27.2 - 32.6 pg [facility] MPV 10.0 9.3 - 12.4 fL [facility] HEMATOCRIT 40.8 40.0 - 48.0 % [facility] RDW-STDEV 44.9 37.1 - 48.7 fL [facility] RBC 4.37(L) 4.50 - 5.40 M/uL [facility] MCHC 34.3 31.5 - 35.5 % [facility] BASOPHILS 0 0 - 2 % [facility] BASOPHILS ABSOLUTE 0.01 0.00 - 0.20 K/uL [facility] MONOCYTES 10 3 - 13 % [facility] MONOCYTE ABSOLUTE 0.64 0.10 - 1.30 K/uL [facility] NEUTROPHILS 69 45 - 70 % [facility] NEUTROPHIL ABSOLUTE 4.33 1.90 - 7.00 K/uL [facility] EOSINOPHILS 2 0 - 7 % [facility] EOSINOPHIL ABSOLUTE 0.10 0.00 - 0.70 K/uL [facility] LYMPHOCYTES 19 16 - 45 % [facility] LYMPHOCYTE ABSOLUTE 1.17 0.70 - 4.50 K/uL [facility] Blood specimen (specimen) 06/25/2007 12:00 PM CDT 06/25/2007 12:12 PM CDT us Jono Scherer MD HEMATOLOGY ORDERABLES Edited Performing Organization Address City/[facility]/ZIP Co de Phone Number INTERFACE SYSTEM Refer to clinic/hospital department [facility] [address] [place] [address] * POC ACTIVATED CLOTTING TIME (06/25/2007 10:51 AM CDT) ACT POC 328 Seconds [facility] Comment: Note sheath pull range change effective 09/20/2005. ACT value for sheath pull at [facility] has been established to be < or = to 140. (See also Nursing Procedures for sheath pull in related nursing areas) Blood specimen (specimen) 06/25/2007 10:51 AM CDT 06/25/2007 10:51 AM CDT us Pau De La Cruz MD POINT OF CARE TESTING Final Re sult Performing Organization Address [facility] de Phone Number [facility] [address] [place] [address] documented in this encounter Visit Diagnoses Diagnosis Chest pain, unspecified documented in this encounter Care Teams Security Chief Museum Relationship Specialty Start Date End Date Rosanne Santana MD [address] [place] [address] [place] [address] PCP - General 10/24/03 documented as of this encounter
--- OUTSIDE RECORDS SUMMARY | 2024-06-02 00:24 | XMS_ITS | Encounter Summary ---
Author Organization [facility] Address [address] [place] [address] Care Team Providers Care Industrial Ecologist Name Role Phone Nikky Reyes MD Primary Care Provider Encounter Details Date Type Department Care Team (Late st Contact Info) Description 11/27/2023 Prep for Procedure [facility] [place], [place] [id number] Kwaku Martin MD [address] [facility] [address] [place], [place] [id number] Social History Tobacco Use Types Packs/Day Years Used Date Smoking Tobacco: Former Cigarettes 2 15 S tarted: 1965 Smokeless Tobacco: Never Alcohol Use Standard Drinks/Week Comments Not Currently 0 (1 standard drink = 0.6 oz pur e alcohol) sober 45 years Sex and Gender Information Value Date Recorded Sex Assigned at Not on file 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 SPECIES NOT STAPH. AUREUS (A) 11/30/2023 9:35 AM CDT [facility] URINE SPECIMEN OBTAINED BY [...] MD MICROBIOLOGY - GENERAL ORDERABLES Final Result [facility] [address] [id number], * (ABNORMAL) URINALYSIS (11/28/2023 8:45 AM CDT) SPECIMEN TYPE URINE CLEAN CATCH 11/28/2023 8:53 AM CDT [facility] COLOR (U) YELLOW 11/28/2023 9:11 AM CDT [facility] TRANSPARENCY TURBID 11/28/2023 9:11 AM CDT [facility] SPECIFIC GRAVITY (U) 1.014 1.001 - 1.030 11/28/2023 9:11 AM CDT [facility] U PH 5.5 5.0 - 9.0 11/28/2023 9:11 AM CDT [facility] LEUKOCYTES (U) 500(A) NEGATIVE 11/28/2023 9:11 AM CDT [facility] NITRITES 1+(A) NEGATIVE 11/28/2023 9:11 AM T [facility] PROTEIN RANDOM (U) 70(H) <30 MG/DL 11/28/2023 9:11 AM CDT [facility] GLUCOSE (U) NORMAL NORMAL MG/DL 11/28/2023 9:11 AM CDT [facility] KETONES MG/DL (U) NEGATIVE NEGATIVE MG/DL 11/28/2023 9:11 AM CDT [facility] UROBILINOGEN NORMAL NORMAL MG/DL 11/28/2023 9:11 AM T [facility] BILIRUBIN (U) NEGATIVE NEGATIVE MG/DL 11/28/2023 9:11 AM CDT [facility] BLOOD (U) 3+(A) NEGATIVE 11/28/2023 9:11 AM T [facility] MUCUS RARE /LPF 11/28/2023 9:11 AM T [facility] WBC/HPF >100(H) <6 /HPF 11/28/2023 9:11 AM T [facility] WBC CLUMPS PRESENT 11/28/2023 9:11 AM T [facility] RBC/HPF 21(H) <6 /HPF 11/28/2023 9:11 AM T [facility] BACTERIA (U) MODERATE(A) NONE /HPF 11/28/2023 9:11 AM T [facility] URINE SPECIMEN OBTAINED BY CLEAN CATCH PROCEDURE / Unknown 11/28/2023 8:45 AM CDT us Kwaku Martin MD URINE ORDERABLES Final Result [facility] [address] [place] [address], [place] [phone] * (ABNORMAL) BASIC METABOLIC PANEL (11/28/2023 8:43 AM CDT) [facility] GLUCOSE 110(H) 70 - 99 MG/DL 11/28/2023 10:22 AM CDT [facility] BUN 12 7 - 18 MG/DL 11/28/2023 10:22 AM CDT [facility] CREATININE S/P/B 1.19 0.7 - 1.3 MG/DL 11/28/2023 10:22 AM CDT [facility] SODIUM S/P/B 138 136 - 145 MMOL/L 11/28/2023 10:22 AM CDT [facility] POTASSIUM S/P/B 3.5 3.5 - 5.1 MMOL/L 11/28/2023 10:22 AM T [facility] CHLORIDE S/P/B 106 97 - 115 MMOL/L 11/28/2023 10:22 AM T [facility] CO2 27.4 21 - 32 MMOL/L 11/28/2023 10:22 AM T [facility] CALCIUM S/P/B 9.2 8.5 - 10.1 MG/DL 11/28/2023 10:22 AM T [facility] ANION GAP 4.6 2 - 10 MMOL/L 11/28/2023 10:22 AM T [facility] BUN CREATININE RATIO 10.1 6 - 26 11/28/2023 10:22 AM T [facility] GFR ESTIMATE 64(L) >90 ML/MIN/1.7 3 M2 11/28/2023 10:22 AM T [facility] Comment: NOTE: eGFR is [...] Kwaku Martin MD LABORATORY Final R esult [facility] [address] [place] [address], * (ABNORMAL) CBC W/DIFF AUTOMATED (11/28/2023 8:43 AM CDT) WBC 7.86 4.5 - 11.0 x10'3/uL 11/28/2023 9:12 AM CDT [facility] RBC 4.08(L) 4.70 - 6.10 x10'6/uL 11/28/2023 9:12 AM CDT [facility] HGB 13.1(L) 14.0 - 18.0 G/DL 11/28/2023 9:12 AM CDT [facility] HCT 39.3(L) 43.0 - 54.0 % 11/28/2023 9:12 AM CDT [facility] MCV 96.3(H) 80.0 - 94.0 FL 11/28/2023 9:12 AM CDT [facility] MCH 32.1(H) 27.0 - 31.0 PG 11/28/2023 9:12 AM CDT [facility] MCHC 33.3 32.0 - 36.0 G/DL 11/28/2023 9:12 AM CDT [facility] RDW 14.4 11.5 - 14.5 % 11/28/2023 9:12 AM CDT [facility] PLT 236 130 - 400 x10'3/uL 11/28/2023 9:12 AM CDT [facility] MPV 9.3 9.3 - 12.2 FL 11/28/2023 9:12 AM CDT [facility] DIFFERENTIAL TYPE AUTOMATED DIFFERENTIAL 11/28/2023 9:12 AM CDT [facility] NEUTROPHILS % 67.3 % 11/28/2023 9:12 AM CDT [facility] LYMPHOCYTES % 17.9 % 11/28/2023 9:12 AM CDT [facility] MONOCYTES % 11.6 % 11/28/2023 9:12 AM CDT [facility] EOSINOPHILS 2.2 % 11/28/2023 9:12 AM CDT [facility] BASOPHILS 0.6 % 11/28/2023 9:12 AM CDT [facility] IMMATURE GRANS % 0.4 % 11/28/19 9:12 AM CDT [facility] ABS. NEUTROPHILS 5.29 1.80 - 7.70 x10'3/uL 11/28/2023 9:12 AM CDT [facility] ABS. LYMPHOCYTES 1.41 1.00 - 4.80 x10'3/uL 11/28/2023 9:12 AM CDT [facility] ABS. MONOCYTES 0.91(H) 0.30 - 0.82 x10'3/uL 11/28/2023 9:12 AM CDT [facility] ABS. EOSINOPHILS 0.17 0.04 - 0.54 x10'3/uL 11/28/2023 9:12 AM CDT [facility] ABS. BASOPHILS 0.05 0.01 - 0.08 x10'3/uL 11/28/2023 9:12 AM CDT [facility] ABS. 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
--- OUTSIDE RECORDS SUMMARY | 2024-06-02 00:24 | XMS_ITS | Encounter Summary ---
Author Organization [employer] Address [address] [place] [address] Care Team Providers Care Windows Application Developer Name Role Phone Rosanne Santana MD Primary Care Provider [phone] Encounter Details Date Type Department Care Team (Late st Contact Info) Description 10/23/[address] [facility] ([facility]) [address] [place] [phone] Hudson Lindsay MD NO ADDRESS ON FILE Social History Tobacco Use Types Packs/Day Years Used Date Smoking Tobacco: Never Assessed Sex and Gender Information Value Date Recorded Sex Assigned at Not on file Legal Sex Male 4:23 AM [employer]IVATE [employer] REPAIR[employer] Gender Identity Not on file Sexual Orientation Not on file documented as of this encounter Plan of Treatment Not on file documented as of this encounter Visit Diagnoses Not on filedocumented in this encounter Care Teams Windows Application Developer Relationship Specialty Start Date End Date Rosanne Santana MD [address] [place] [address] PCP - General 10/24/03 documented as of this encounter
--- OUTSIDE RECORDS SUMMARY | 2024-06-02 00:24 | XMS_ITS | Encounter Summary ---
Author Organization [employer] Address [address] [place] [address] Care Team Providers Care Traveling Clerk Name Role Phone Rosanne Santana MD Primary Care Provider [phone] Encounter Details Date Type Department Care Team (Late st Contact Info) Description 11/06/[address] [facility] [facility] Support Serv. (Adt Cardiology-[facility]) [address] 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
--- OUTSIDE RECORDS SUMMARY | 2024-06-02 00:24 | XMS_ITS | Encounter Summary ---
Author Organization [employer] Address 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 Jono Richards MD [address] [place] [address] Coronary Atherosclerosis of [place] Coronary Artery (Primary Dx) Social History Tobacco Use Types Packs/Day Years Used Date Smoking Tobacco: Never Assessed Sex and Gender Information Value Date Recorded Sex Assigned at Not on file 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
--- OUTSIDE RECORDS SUMMARY | 2024-06-02 00:24 | XMS_ITS | Encounter Summary ---
Author Organization [employer] Address [address] [place] [address] Care Team Providers Care Assembler Body Name Role Phone Rosanne Santana MD Primary Care Provider [phone] Encounter Details Date Type Department Care Team (Late st Contact Info) Description 02/13/2006 Outpatient Historical [facility] [place] [place] Support Serv. 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
--- OUTSIDE RECORDS SUMMARY | 2024-06-02 00:24 | XMS_ITS | Clinical Summary ---
Author Organization [facility] Address Formerly [facility] [place] [address] Care Team Providers Care Marine Underwriter Name Role Phone Nikky Reyes MD Primary [...] Hyperlipidemia 02/11/2023 Hypothyroidism 02/11/2023 Ischemic dilated cardiomyopathy ([facility] ) 02/11/2023 Nausea 02/11/2023 Nonrheumatic mitral (valve) insufficiency 2022 Nonrheumatic tricuspid (valve) insufficiency Unspecified diastolic (conge stive) heart failure ([facility]) 02/11/2023 Encounters Date Type Department Care Team Description 04/10/2024 1:02 PM CREATIVE ART DIRECTOR - 04/10/2024 2:36 PM CREATIVE ART DIRECTOR Emergency [facility] [place] [address] Yoko Arzola NP Fever Discharge Disposition: Home or Self Care (Routine Discharge) 04/10/2024 Travel 04/08/2024 11:17 AM CREATIVE ART DIRECTOR Anesthesia Event [place] [address] Vickie Clarke MD Jackson, Samantha Rae, FNP 04/08/2024 11:16 AM CREATIVE ART DIRECTOR - 04/08/2024 12:44 PM CREATIVE ART DIRECTOR Surgery [place] [address] Adelso Mansfield MD CYSTOSCOPY 04/08/2024 8:59 AM CREATIVE ART DIRECTOR - 04/08/2024 1:50 PM CREATIVE ART DIRECTOR Hospital Encounter [facility] [place] [address] Adelso Mansfield MD Discharge Disposition: Home or Self Care (Routine Discharge) 04/08/2024 Travel 04/02/2024 2:45 PM CREATIVE ART DIRECTOR - 04/02/2024 11:59 PM CREATIVE ART DIRECTOR [facility] [place] [place] [address] Adelso Mansfield MD Discharge Disposition: Home or Self Care (Routine Discharge) 04/02/2024 Travel 04/01/2024 [place] [address] Adelso Masnfield MD from Last 3 Months Immunizations Name [...] on file Legal Sex Male 1:18 PM CREATIVE ART DIRECTOR Gender Identity Not on file Sexual Orientation Not on file Last Filed Vital Signs Vital Sign Reading Time Taken Comments Blood Pressure 103/70 04/10/2024 12:28 PM CREATIVE ART DIRECTOR Pulse 90 04/10/2024 12:28 PM CREATIVE ART DIRECTOR Temperature 37.5 C (99.5 F) 04/10/2024 12:28 PM CREATIVE ART DIRECTOR Respiratory Rate 16 04/10/2024 12:28 PM CREATIVE ART DIRECTOR Oxygen Saturation 100% 04/10/2024 12:28 PM CREATIVE ART DIRECTOR Inhaled Oxygen Concentration - - Weight 87.1 kg (192 lb) 04/10/2024 12:28 PM CREATIVE ART DIRECTOR Height 185.4 cm (6' 1 ) 04/10/2024 12:28 PM CREATIVE ART DIRECTOR Body Mass Index 25.33 04/10/2024 12:28 PM CREATIVE ART DIRECTOR Plan of Treatment Health Maintenance Due [...] - Td or Tdap) 11/22/2025 11/23/2015 Meningococcal B Vaccine Aged Out No l onger eligible based on patient's age to complete this topic Meningococcal Vaccine Aged Out No galileo yudi eligible based on patient's age to complete this topic RSV Immunizations Under 20 Months Aged Out No longer eligible based on patient's age to complete this topic Medical Devices Explanted Type Area Inventory Analyst Device Identifier Shelf Expiration Date Model / Serial / Lot Stent Ureteral [place] Sci Contour Vl 6fr X 22-30cm - [id number] Implanted:Qty: 1 on 12/05/2023 by Kwaku Martin MD at [facility] Explanted:Qty: 1 on 04/08/2024 by Adelso Mansfield MD at [facility] Stent Right: Ureter [employer] 07/17/2026 [id number] / / [id number] Procedures Procedure Name Priority Date/Time Associated Diagnosis Comments ECG 12-LEAD STAT 04/10/2024 1:17 PM CREATIVE ART DIRECTOR INFLUENZA A & B STAT 04/10/2024 1:13 PM CREATIVE ART DIRECTOR CORONAVIRUS (COVID 19) STAT 04/10/2024 1:13 PM CREATIVE ART DIRECTOR PROCALCITONIN (PCT) STAT 04/10/2024 1 :09 PM CREATIVE ART DIRECTOR TROPONIN, QUANT STAT 04/10/2024 1:09 PM CREATIVE ART DIRECTOR COMPREHENSIVE METABOLIC PANEL STAT 04/10/2024 1:09 PM CREATIVE ART DIRECTOR CBC W/DIFF AUTOMATED STAT 04/10/2024 1:09 PM CREATIVE ART DIRECTOR XR CHEST PA+LAT STAT 04/10/2024 12:57 PM CREATIVE ART DIRECTOR SURG XR RETROGRD UROGRAPHY Routine 04/08/2024 12:02 PM CREATIVE ART DIRECTOR CYSTOSCOPY STENT INSERTION/REMOVAL/CH LENORA 04/08/2024 11:16 AM CREATIVE ART DIRECTOR BLADDER CANCER, HYDRONEPHROSIS WITH URETERAL STRICTURE N99.89, C67.9, N13.1 Case Notes SCHED BY FAX 03/19/2024 [facility]CS PHONE ASSESS CYSTOURETHROSCOPY,BI OPSY 04/08/2024 11:16 AM CREATIVE ART DIRECTOR BLADDER CANCER, HYDRONEPHROSIS WITH URETERAL STRICTURE N99.89, C67.9, N13.1 Case Notes SCHED BY FAX 03/19/2024 LCS PHONE ASSESS URINE BACTERIA CULTURE Routine 04/02/2024 2:46 PM CREATIVE ART DIRECTOR Bladder cancer ([facility]/HCC HHS/HCC) Hydronephrosis with ureteral stricture from Last 3 Months Results * ECG 12 lead (04/10/2024 1:17 PM CREATIVE ART DIRECTOR) 04/10/2024 1:17 PM CREATIVE ART DIRECTOR Narrative [facility] - 04/10/2024 5:58 PM CREATIVE ART DIRECTOR [place] [address] Test Date: 2024-04-10 Pat Name: MITCHELL RODRIGUEZ Department: 41 Room: [facility] Gender: Male Gate Attendant: : 1950 Requested By: ATTILA DODSON Order Number: [id number] Shonda MD: Alysa Logan Measurements Intervals [place] Rate: 82 P: 51 NM: 145 QRS: -70 QRSD: 149 T: 28 QT: 400 QTc: 469 Interpretive Statements SINUS RHYTHM WITH OCCASIONAL ECTOPIC PREMATURE COMPLEXES RIGHT BUNDLE BRANCH BLOCK [120+ ms QRS DURATION, UPRIGHT V1, 40+ ms S IN I/aVL/V4/V5/V6] LEFT ANTERIOR FASCICULAR BLOCK [QRS AXIS <= -45, QR IN I, RS IN II] Compared to ECG 12/06/2023 01:00:38 No significant change TIVE ART DIRECTOR Procedure Note Alysa Logan MD - 04/10/[address] Test Date: 2024-04-10 Pat Name: MITCHELL RODRIGUEZ Department: 41 Room: [facility] Gender: Male Gate Attendant: : 1950 Requested By: ATTILA DODSON Order Number: [id number] Reading MD: Alysa Logan Measurements Intervals [place] Rate: 82 P: 51 NM: 145 QRS: -70 QRSD: 149 T: 28 QT: 400 QTc: 469 Interpretive Statements SINUS RHYTHM WITH OCCASIONAL ECTOPIC PREMATURE COMPLEXES RIGHT BUNDLE BRANCH BLOCK [120+ ms QRS DURATION, UPRIGHT V1, 40+ ms SIN I/aVL/V4/V5/V6] LEFT ANTERIOR FASCICULAR BLOCK [QRS AXIS <= -45, QR IN I, RS IN II] Compared to ECG 12/06/2023 01:00:38 No significant change TIVE ART DIRECTOR us Attila NEWBY ECG ORDERABLES Final Resu lt [facility] RAD * CORONAVIRUS (COVID 19) (04/10/2024 1:13 PM CREATIVE ART DIRECTOR) CORONAVIRUS SARS COV 2 RNA NEGATIVE NEGATIVE 04/10/2024 1:35 PM CREATIVE ART DIRECTOR [facility] Comment: NEGATIVE RESULTS DO NOT [...] SARS-COV-2. SPECIMEN TYPE NASAL 04/10/2024 1:14 PM CREATIVE ART DIRECTOR [facility] NASAL STRUCTURE / Unknown 04/10/2024 1:13 PM CREATIVE ART DIRECTOR Attila NEWBY MICROBIOLOGY - GENERAL ORD ERABLES Final Result Performing Organization Address [facility]/ZIP Co de Phone Number [facility] [address] [place] [address], * (ABNORMAL) INFLUENZA A & B, RAPID (04/10/2024 1:13 PM CREATIVE ART DIRECTOR) SPECIMEN TYPE NASAL 04/10/2024 1:15 PM CREATIVE ART DIRECTOR [facility] INFLUENZA A POSITIVE(A) NEGATIVE 04/10/2024 1:35 PM CREATIVE ART DIRECTOR [facility] INFLUENZA B NEGATIVE NEGATIVE 04/10/2024 1:35 PM CREATIVE ART DIRECTOR [facility] Comment: Interpretation: Positive for Influenza Type A. This test can not distinguish influenza A virus subtypes. For example, this test cannot distinguish influenza infections caused by novel influenza A viruses versus seasonal influenza A viruses. NASAL STRUCTURE / Unknown 04/10/2024 1:13 PM CREATIVE ART DIRECTOR Attila NEWBY MICROBIOLOGY - GENERAL ORD ERABLES Final Result Performing Organization Address City/[facility]/ZIP Co de Phone Number [facility] [address] [place] [address], [place] [phone] * PROCALCITONIN (PCT) (04/10/2024 1:09 PM CREATIVE ART DIRECTOR) Procalcitonin 0.07 0.00 - 0.49 NG/ML 04/10/2024 2:10 PM [facility] 04/10/2024 1:09 PM CREATIVE ART DIRECTOR us Attila NEWBY LABORATORY Final Resu lt [facility] [address] [place] [address], [place] [phone] * (ABNORMAL) COMPREHENSIVE METABOLIC PANEL (04/10/2024 1:09 PM CREATIVE ART DIRECTOR) Pathologist [facility] GLUCOSE 103(H) 70 - 99 MG/DL 04/10/2024 1:43 PM [facility] BUN 15 7 - 18 MG/DL 04/10/2024 1:43 PM [facility] CREATININE S/P/B 1.31(H) 0.7 - 1.3 MG/DL 04/10/2024 1:43 PM [facility] SODIUM S/P/B 134(L) 136 - 145 MMOL/L 04/10/2024 1:43 PM [facility] POTASSIUM S/P/B 3.8 3.5 - 5.1 MMOL/L 04/10/2024 1:43 PM [facility] CHLORIDE S/P/B 103 97 - 115 MMOL/L 04/10/2024 1:43 PM [facility] CO2 24.7 21 - 32 MMOL/L 04/10/2024 1:43 PM [facility] CALCIUM S/P/B 8.5 8.5 - 10.1 MG/DL 04/10/2024 1:43 PM [facility] BILIRUBIN TOTAL S/P/B 0.5 0.2 - 1.2 MG/DL 04/10/2024 1:43 PM [facility] Comment: THIS ASSAY IS NOT RECOMMENDED FOR PATIENTS UNDERGOING TREATMENT WITH ELTROMBOPAG DUE TO THE POTENTIAL FOR FALSELY ELEVATED RESULTS. TOTAL PROTEIN S/P/B 7.3 6.4 - 8.2 G/DL 04/10/2024 1:43 PM [facility] ALBUMIN S/P/B 3.5 3.4 - 5.0 G/DL 04/10/2024 1:43 PM [facility] AST 18 15 - 37 U/L 04/10/2024 1:43 PM [facility] ALT 23 16 - 60 U/L 04/10/2024 1:43 PM [facility] ALKALINE PHOSPHATASE S/P/B 75 50 - 136 U/L 04/10/2024 1:43 PM [facility] ANION GAP 6.3 2 - 10 MMOL/L 04/10/2024 1:43 PM [facility] BUN CREATININE RATIO 11.5 6 - 26 04/10/2024 1:43 PM [facility] A/G RATIO 0.9(L) 1.0 - 2.0 RATIO 04/10/2024 1:43 PM [facility] GFR ESTIMATE 56(L) >90 ML/MIN/1.7 3 M2 04/10/2024 1:43 PM [facility] Comment: NOTE: eGFR is not calculated for patients <18 years of age or gender unknown. This is an estimated GFR calculation using the new CKD EPI creatinine equation without race and so does not require a correction factor for race. This estimated GFR should not be used for calculating drug doses. 04/10/2024 1:09 PM CREATIVE ART DIRECTOR us Attila NEWBY LABORATORY Final Resu lt [facility] [address] [place] [address], * (ABNORMAL) CBC W/DIFF AUTOMATED (04/10/2024 1:09 PM CREATIVE ART DIRECTOR) WBC 6.10 4.5 - 11.0 x10'3/uL 04/10/2024 1:23 PM [facility] RBC 3.68(L) 4.70 - 6.10 x10'6/uL 04/10/2024 1:23 PM [facility] HGB 12.1(L) 14.0 - 18.0 G/DL 04/10/2024 1:23 PM [facility] HCT 36.4(L) 43.0 - 54.0 % 04/10/2024 1:23 PM [facility] MCV 98.9(H) 80.0 - 94.0 FL 04/10/2024 1:23 PM [facility] MCH 32.9(H) 27.0 - 31.0 PG 04/10/2024 1:23 PM [facility] MCHC 33.2 32.0 - 36.0 G/DL 04/10/2024 1:23 PM [facility] RDW 15.3(H) 11.5 - 14.5 % 04/10/2024 1:23 PM [facility] PLT 145 130 - 400 x10'3/uL 04/10/2024 1:23 PM [facility] MPV 8.8(L) 9.3 - 12.2 FL 04/10/2024 1:23 PM [facility] DIFFERENTIAL TYPE MANUAL DIFFERENTIAL 04/10/2024 2:12 PM [facility] SEG NEUTROPHILS 74 % 2:12 PM CREATIVE ART DIRECTOR [facility] LYMPHOCYTES 9 % 04/10/2024 2:12 PM CREATIVE ART DIRECTOR [facility] MONOCYTES 15 % 04/10/2024 2:12 PM CREATIVE ART DIRECTOR [facility] BASOPHILS 2 % 04/10/2024 2:12 PM CREATIVE ART DIRECTOR [facility] ABS. NEUTROPHILS 4.51 1.80 - 7.70 x10'3/uL 04/10/2024 2:12 PM CREATIVE ART DIRECTOR [facility] ABS. LYMPHOCYTES 0.55(L) 1.00 - 4.80 x10'3/uL 04/10/2024 2:12 PM CREATIVE ART DIRECTOR [facility] ABS. MONOCYTES 0.92(H) 0.30 - 0.82 x10'3/uL 04/10/2024 2:12 PM CREATIVE ART DIRECTOR [facility] ABS. BASOPHILS 0.12(H) 0.01 - 0.08 x10'3/uL 04/10/2024 2:12 PM CREATIVE ART DIRECTOR [facility] RBC MORPHOLOGY RBC MORPHOLOGY APPEARS NORMAL. SLIDE REVIEWED. 04/10/2024 2:12 PM CREATIVE ART DIRECTOR [facility] PLT EST. ADEQUATE 04/10/2024 2:12 PM [facility] 04/10/2024 1:09 PM CREATIVE ART DIRECTOR us Attila NEWBY LABORATORY Final Resu lt [facility] [address] [place] [address], * TROPONIN, QUANT (04/10/2024 1:09 PM CREATIVE ART DIRECTOR) TROPONIN I HIGH SENSITIVITY 17 <79 ng/L 04/10/2024 1:43 PM CREATIVE ART DIRECTOR [facility] Comment: HIGH DOSES OF BIOTIN, TROPONIN-SPECIFIC AUTOANTIBODIES, AND ANTIBODY THERAPY CONTAINING HAMA MAY INTERFERE WITH THIS TEST RESULT. CORRELATION TO CLINICAL HISTORY AND PRESENTATION RECOMMENDED. 04/10/2024 1:09 PM CREATIVE ART DIRECTOR us Attila NEWBY LABORATORY Final Resu lt [facility] [address] [place] [address], [place] [phone] * XR CHEST PA+LAT (04/10/2024 12:57 PM CREATIVE ART DIRECTOR) Anatomical Region Laterality Modality Chest Radiographic Clarissa ging 04/10/2024 12:5 8 PM CREATIVE ART DIRECTOR Impressions 04/10/2024 12:59 PM CREATIVE ART DIRECTOR IMPRESSION: No acute pulmonary findings. Referred By: Interpreted By: Nader Farmer MD, 04/10/2024 12:58 PM Narrative 04/10/2024 12:59 PM CREATIVE ART DIRECTOR [address] [address] Examination: XR CHEST PA+LAT Exam time: 04/10/2024 12:49 PM Indication: Cough and weakness Comparison: Chest 11/28/2023 Findings: Upright PA and lateral views of the chest were obtained. The heart size is upper limits of normal/mildly enlarged. No vascular congestion. No airspace consolidation, pleural effusion, or pneumothorax. Procedure Note Nader Farmer MD - 04/10/2024 [facility] [address] [place], [place] [address] Examination: XR CHEST PA+LAT Exam time: 04/10/2024 [...] SURG XR RETROGRD UROGRAPHY (04/08/2024 12:02 PM CREATIVE ART DIRECTOR) Anatomical Region Laterality Modality Abdomen Radiographic Clarissa ging 04/08/2024 2:41 PM CREATIVE ART DIRECTOR Impressions 04/08/2024 2:41 PM CREATIVE ART DIRECTOR Impression: No radiologic interpretation will be issued. The report and documentation of this exam will reside in the patient's permanent medical record and in the attending physician's procedure note. Ordered By: ADELSO MANSFIELD Interpreted By: Marco A Baez MD, 04/08/2024 2:41 PM Narrative 04/08/2024 2:41 PM CREATIVE ART DIRECTOR [place] [address] FLUOROSCOPY CONTROL ONLY Procedure Note Marco A Baez MD - 04/08/2024 [place] [address] FLUOROSCOPY CONTROL ONLY Impression: No radiologic interpretation will be issued. The report and documentationof this exam will reside in the patient's permanent medical record and inthe attending physician's procedure note. Ordered By: ADELSO MANSFIELD Interpreted By: Marco A Baez MD, 04/08/2024 2:41 PM Adelso Mansfield MD IMAGES ONLY Final Result * (ABNORMAL) URINE BACTERIA CULTURE (04/02/2024 2:46 PM CREATIVE ART DIRECTOR) SPEC DESCRIPTION URINE CLEAN CATCH 04/02/2024 2:47 PM CREATIVE ART DIRECTOR [facility] SPECIAL REQUESTS NO SPECIAL REQUEST 04/02/2024 2:47 PM CREATIVE ART DIRECTOR [facility] CULTURE RESULT >100,000 COL/ML STAPH. SPECIES NOT STAPH. AUREUS (A) 04/04/2024 8:02 AM CREATIVE ART DIRECTOR [facility] URINE SPECIMEN OBTAINED BY CLEAN CATCH PROCEDURE / Unknown 04/02/2024 2:46 PM CREATIVE ART DIRECTOR 04/02/2024 3:46 PM CREATIVE ART DIRECTOR Narrative Organism Antibiotic Method Susceptibility Staph. species not staph. aureus NITROFURANTOIN NIRMALA (V ITEK) <=16: Sensitive Staph. species not staph. aureus LEVOFLOXACIN NIRMALA (VIT EK) 4: Resistant Staph. species not staph. aureus OXACILLIN NIRMALA (VIT EK) >=4: Resistant Staph. species not staph. aureus TRIMETH-SULFAMETH. WI C (VITEK) 20: Sensitive Staph. species not staph. aureus TETRACYCLINE NIRMALA (VIT EK) >=16: Resistant Staph. species not staph. aureus VANCOMYCIN NIRMALA (VIT EK) 2: Sensitive Adelso Mansfield MD MICROBIOLOGY - GENERAL ORDERABL ES Final Result [facility] [address] [place] [address], [place] [phone] from Last 3 Months Insurance MEDICARE [facility] Care Teams Marine Underwriter Relationship Specialty Start Date End Date Nikky Reyes MD [address] [place] [address] PCP - General FAMILY PRACTICE 05/04/21
--- OUTSIDE RECORDS SUMMARY | 2024-06-02 00:24 | XMS_ITS ---
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 Past Treatment and Therapy Plans Oncology Chemotherapy Treatment Plan Name Start Date Discontinue Date Treatment Medications Discontinue Reason Plan Provider Cycles Low-Dose Gemcitabine with Concurrent Radiation - Bladder 01/23/2004/19/2024 gemcitabine (GEMZAR)gemcit abine (GEMZAR) IVPB in 50 mL (using 38 mg/ml gemCITabine) (J9201)gemcita bine IVPB in 50 mL (using 100 mg/ml gemcitabine) (J9196) Therapy Complete Venkat Vivar, 1 of 1 cycle completed Radiation Treatments * Course [id number]/02/2024 - 03/01/2024 Treatment Period Energy Fraction Dose Fractions Total Dose Plans Planned BLADDER 2024 - 03/01/2024 275 20 / 5,500 Reference Points Delivered BLADDER 2024 - 03/01/2024 5,500
--- OUTSIDE RECORDS SUMMARY | 2024-06-02 00:24 | XMS_ITS | Clinical Summary ---
Author Organization [facility] [place] [place] [address] Address [address] [place] [address] Care Team Providers Care Marking Machine Operator Name Role Phone Nikky Reyes MD Primary Care Provider Venkat Vivar DO Unavailable [phone] Kwaku Martin MD Unavailable [phone] Richard Hargrove MD Unavailable [phone] Adelso Quiñones MD Unavailable [phone] Allergies No known active allergies Medications [...] Date Type Department Care Team Description 04/19/2024 11:30 AM HOOK PULLER Office Visit [facility] Medical Office Building 2 Radiation Oncology [address] [place] [address] Jade Fall, [place] Malignant neoplasm of urinary bladder, unspecified site (HCC) (Primary Dx); Personal history of radiation therapy 04/19/2024 11:00 AM HOOK PULLER Office Visit [facility] Oncology [address] [place] [phone] Venkat Vivar DO Malignant neoplasm of urinary bladder, unspecified site (HCC) (Primary Dx); Malignant neoplasm of ureteric orifice (HCC); Anemia due to chemotherapy 04/19/2024 10:30 AM HOOK PULLER Lab [facility] at [address] [address] Anemia due to chemotherapy 03/08/2024 Telephone [facility] Oncology [address] [place] [phone] Laura Arias RN from Last 3 Months Surgical History Surgery [...] on file Legal Sex Male 2:03 AM HOOK PULLER Gender Identity Not on file Sexual Orientation Not on file Occupation Industry Job Start Date Job End Date Retired Not on file Not on file Not on file Obstetrics History Last Filed Vital Signs Vital Sign Reading Time Taken Comments Blood Pressure 99/69 04/19/2024 11:35 AM HOOK PULLER Pulse 68 04/19/2024 11:35 AM HOOK PULLER Temperature 36.6 C (97.9 F) 04/19/2024 10:59 AM HOOK PULLER Respiratory Rate 18 04/19/2024 10:59 AM HOOK PULLER Oxygen Saturation 96% 04/19/2024 11:35 AM HOOK PULLER Inhaled Oxygen Concentration - - Weight 86.2 kg (190 lb) 04/19/2024 11:35 AM HOOK PULLER Height 185.4 cm (6' 1 ) 02/25/2024 12:13 AM HOOK PULLER Body Mass Index 25.07 02/25/2024 12:13 AM HOOK PULLER Plan of Treatment Health Maintenance Due Date [...] Diagnosis Comments EGFR Routine 04/19/2024 10:37 AM HOOK PULLER Anemia due to chemotherapy DIFFERENTIAL AUTO Routine 04/19/2024 10: 37 AM HOOK PULLER Anemia due to chemotherapy CBC WITH AUTO DIFFERENTIAL Routine 04/19/2024 10:37 AM HOOK PULLER Anemia due to chemotherapy COMPREHENSIVE METABOLIC PANEL Routine 04/19/2024 10:37 AM HOOK PULLER Anemia due to chemotherapy from Last 3 Months Results * eGFR (04/19/2024 10:37 AM HOOK PULLER) eGFR 89 >=60 mL/min/1. 73 m2 Comment: [...] was last reviewed 2021. Testing performed by: [facility] [address] [address] Blood 04/19/2024 10:3 7 AM HOOK PULLER 04/19/2024 10:40 AM HOOK PULLER Venkat Vivar DO LAB BLOOD ORDERABLES Final R esult [facility] [address] [facility] Department [place] [address] * Differential, auto (04/19/2024 10:37 AM HOOK PULLER) Neutrophil abs 4.2 1.5 - 6.5 K/cumm Comment:Testing performed by : [address] [address] Imm gran abs 0.1 0.0 - 0.1 K/cumm JAIME Comment:Testing performed by : [address] [address] Lymphocyte abs 1.0 0.8 - 3.3 K/cumm JAIME Comment:Testing performed by : [address] [address] Monocyte abs 0.7 0.2 - 0.8 K/cumm JAIME Comment:Testing performed by : [address] [address] Eosinophil abs 0.2 0.0 - 0.5 K/cumm JAIME Comment:Testing performed by : [address] [address] Basophil abs 0.0 0.0 - 0.1 K/cumm BANNERYUSUF Comment:Testing performed by : [address] [address] Neutrophil pct 68.1 % JAIME Comment: Interpretive Data Percent cell count reference ranges are not reported, since discordance with absolute values may lead to misinterpretation of CBC data. Current Interpretive Data was last revised on 2017. Testing performed by: [address] [address] Imm gran pct 1.0 % JAIME Comment: Interpretive Data Percent cell count reference ranges are not reported, since discordance with absolute values may lead to misinterpretation of CBC data. Current Interpretive Data was last revised on 2017. Testing performed by: [address] [address] Lymphocyte pct 16.1 % [facility] Comment: Interpretive Data Percent cell count reference ranges are not reported, since discordance with absolute values may lead to misinterpretation of CBC data. Current Interpretive Data was last revised on 2017. Testing performed by: [address] [address] Monocyte pct 11.5 % [facility] Comment: Interpretive Data Percent cell count reference ranges are not reported, since discordance with absolute values may lead to misinterpretation of CBC data. Current Interpretive Data was last revised on 2017. Testing performed by: [address] [address] Eosinophil pct 2.6 % [facility] Comment: Interpretive Data Percent cell count reference ranges are not reported, since discordance with absolute values may lead to misinterpretation of CBC data. Current Interpretive Data was last revised on 2017. Testing performed by: [address] [address] Basophil pct 0.7 % [facility] Comment: Interpretive Data Percent cell count reference ranges are not reported, since discordance with absolute values may lead to misinterpretation of CBC data. Current Interpretive Data was last revised on 2017. Testing performed by: [address] [address] Blood 04/19/2024 10:3 7 AM HOOK PULLER 04/19/2024 10:40 AM HOOK PULLER us Venkat Vivar DO LAB BLOOD ORDERABLES Final R esult JAIME [facility] [address] [facility] Department [place] [address] * (ABNORMAL) CBC with auto differential (04/19/2024 10:37 AM HOOK PULLER) WBC 6.1 3.8 - 9.9 K/cumm Comment:Testing performed by : [address], [address] Hgb 13.0 13.0 - 17.5 g/dL JAIME Comment:Testing performed by : [address], [address] Hct 37.9(L) 38.9 - 50.3 % JAIME Comment:Testing performed by : [address], [address] Plt 194 150 - 400 K/cumm JAIME Comment:Testing performed by : [address], [address] MPV 9.2 9.1 - 12.3 fL JAIME Comment:Testing performed by : [address], [address] RBC 3.95(L) 4.30 - 5.80 M/cumm JAIME Comment:Testing performed by : [address], [address] MCV 95.9 81.3 - 96.4 fL JAIME Comment:Testing performed by : [address], [address] MCH 32.9 27.1 - 33.3 pg JAIME Comment:Testing performed by : [address], [address] MCHC 34.3 32.3 - 35.7 g/dL JAIME Comment:Testing performed by : [address], [address] RDW CV 13.8 11.1 - 14.9 % JAIME Comment:Testing performed by : [address], [address] RDW SD 49.3(H) 35.7 - 48.1 fL JAIME Comment:Testing performed by : [address], [address] NRBC abs 0.00 0.00 - 0.01 K/cumm JAIME Comment:Testing performed by : [address], [address] Blood 04/19/2024 10:3 7 AM HOOK PULLER 04/19/2024 10:40 AM HOOK PULLER Venkat Vivar DO LAB BLOOD ORDERABLES Final R esult [facility] [address] [facility] Department [place] [address] * Comprehensive metabolic panel (04/19/2024 10:37 AM HOOK PULLER) Sodium 138 135 - 145 mmol/L Comment:Testing performed by : [address] [address] Potassium, pl 4.6 3.3 - 4.9 mmol/L JAIME Comment:Testing performed by : [address] [address] Chloride 105 97 - 110 mmol/L JAIME Comment:Testing performed by : [address] [address] CO2 25 22 - 32 mmol/L JAIME Comment:Testing performed by : [address] [address] Anion gap 8 2 - 15 mmol/L JAIME Comment:Testing performed by : [address] [address] BUN 15 6 - 25 mg/dL JAIME Comment:Testing performed by : [address] [address] Creatinine 0.90 0.80 - 1.30 mg/dL JAIME Comment:Testing performed by : [address] [address] Glucose 111 70 - 199 mg/dL JAIME [...] last revised 2022. Testing performed by: [address] [address] Calcium 9.0 8.5 - 10.3 mg/dL JAIME Comment:Testing performed by : [address] [address] Bilirubin, total 0.5 0.1 - 1.2 mg/dL JAIME Comment:Testing performed by : [address] [address] Protein, pl 7.4 6.5 - 8.5 g/dL JAIME Comment:Testing performed by : [address] [address] Albumin 3.9 3.5 - 5.0 g/dL JAIME Comment:Testing performed by : [address] [address] Alk phos 78 40 - 130 Units/L JAIME Comment:Testing performed by : [address] [address] ALT 27 7 - 55 Units/L JAIME Comment:Testing performed by : [address] [address] AST 17 10 - 50 Units/L BANNERYUSUF Comment:Testing performed by : [address] [address] Blood 04/19/2024 10:3 7 AM HOOK PULLER 04/19/2024 10:40 AM HOOK PULLER us Venkat Vivar DO LAB BLOOD ORDERABLES Final R esult [facility] [address] [facility] Department [place] [address] from Last 3 Months Insurance MEDICARE [facility] SUPPLEMENT MEDICARE [facility] MEDICARE SUPPLEMENT MEDICARE [facility] MEDICARE SUPPLEMENT Member Subscriber Plan / Payer (Ef fective 2020-Present) Name:Venkat Aranda Relation to Subscriber:Self Name:Venkat Aranda Payer ID:[id number] Group ID:[id number] Type:COMMERCIAL Address: [address] [place] [id number] Care Teams Marking Machine Operator Relationship Specialty Start Date End Date Nikky Reyes MD [facility] [address] [place], [place] [phone] PCP - General Family Practice 12/15/23 Venkat Vivar DO [address] [place] [address] MEDICAL ONCOLOGY, [facility] [address] [place], [place] [address] Medical Oncologist/Paper Cap Machine Operator Hematology and Oncology 12/15/23 Kwaku Martin MD [address] [place] [address] MEDICAL ONCOLOGY, [facility] [address] [place], [place] [id number] Consulting Physician Urology 12/15/23 Richard Hargrove MD [address] [place] [address] [address] [place], [place] [address] Radiation Oncologist Radiation Oncology 01/08/24 Adelso Quiñ[place] [address] [place] [address] Surgeon Urology 01/22/24
--- OUTSIDE RECORDS SUMMARY | 2024-06-02 00:24 | XMS_ITS | Encounter Summary ---
Author Organization [employer] Address [address] [facility] [place] [place] [address] Care Team Providers Care Onion Topper Name Role Phone Rosanne Santana MD Primary Care Provider [phone] Encounter Details Date Type Department Care Team (Late st Contact Info) Description 10/23/[address] [facility]) [address] [place] [phone] Kingsley Reyna MD [address] [address] [address] [place] [phone] Social History Tobacco Use Types Packs/Day Years Used Date Smoking Tobacco: Never Assessed Sex and Gender Information Value Date Recorded Sex Assigned at Not on file Legal Sex Male 4:23 AM DIRECTOR SAFETY Gender Identity Not on file Sexual Orientation Not on file documented as of this encounter Plan of Treatment Not on file documented as of this encounter Visit Diagnoses Not on filedocumented in this encounter Care Teams Onion Topper Relationship Specialty Start Date End Date Rosanne Santana MD [address] [place] [address] [place] [address] PCP - General 10/24/03 documented as of this encounter
--- OUTSIDE RECORDS SUMMARY | 2024-06-02 00:25 | XMS_ITS | Encounter Summary ---
Author Organization [facility] Address [address] [place] [address] Care Team Providers Care Tape Recorder Repairer Name Role Phone Rosanne Santana MD Primary Care Provider [phone] Encounter Details Date Type Department Care Team (Late st Contact Info) Description 01/17/2003 Outpatient [facility] [address] [place] [address] & [place] [phone] Social History Tobacco Use Types Packs/Day Years Used Date Smoking Tobacco: Never Assessed Sex and Gender Information Value Date Recorded Sex Assigned at Not on file Legal Sex Male 4:23 AM COUNSELING PROGRAM LEADER Gender Identity Not on file Sexual Orientation Not on file documented as of this encounter Plan of Treatment Not on file documented as of this encounter Visit Diagnoses Not on filedocumented in this encounter Care Teams Tape Recorder Repairer Relationship Specialty Start Date End Date Rosanne Santana MD [address] [place] [address] [place] [address] PCP - General 10/24/03 documented as of this encounter
--- OUTSIDE RECORDS SUMMARY | 2024-06-02 00:25 | XMS_ITS | Encounter Summary ---
Author Organization [employer] Address [address] [place] [address] Care Team Providers Care Evp Strategy Name Role Phone Rosanne Santana MD Primary Care Provider [phone] Encounter Details Date Type Department Care Team (Late st Contact Info) Description 12/02/2001 [facility] [address] [place] [address] Rosanne Santana MD [address] [place] [address] [place] [address] Social History Tobacco Use Types Packs/Day Years Used Date Smoking Tobacco: Never Assessed Sex and Gender Information Value Date Recorded Sex Assigned at Not on file Legal Sex Male 4:23 AM TANK FURNACE OPERATOR Gender Identity Not on file Sexual Orientation Not on file documented as of this encounter Plan of Treatment Not on file documented as of this encounter Visit Diagnoses Not on filedocumented in this encounter Care Teams Evp Strategy Relationship Specialty Start Date End Date Rosanne Santana MD [address] [place] [address] [place] [address] PCP - General 10/24/03 documented as of this encounter
--- OUTSIDE RECORDS SUMMARY | 2024-06-02 00:25 | XMS_ITS | Encounter Summary ---
Author Organization [employer] Address [address] [place] [address] Care Team Providers Care Warehouse Analyst Name Role Phone Rosanne Santana MD Primary Care Provider [phone] Encounter Details Date Type Department Care Team (Late st Contact Info) Description 12/02/2001 [facility]) [address] [place] [address] Rosanne Santana MD [address] [place] [address] [place] [address] Social History Tobacco Use Types Packs/Day Years Used Date Smoking Tobacco: Never Assessed Sex and Gender Information Value Date Recorded Sex Assigned at Not on file Legal Sex Male 4:23 AM HAND CELL TUBER Gender Identity Not on file Sexual Orientation Not on file documented as of this encounter Plan of Treatment Not on file documented as of this encounter Visit Diagnoses Not on filedocumented in this encounter Care Teams Warehouse Analyst Relationship Specialty Start Date End Date Rosanne Santana MD [address] [place] [address] [place] [address] PCP - General 10/24/03 documented as of this encounter
--- OUTSIDE RECORDS SUMMARY | 2024-06-02 00:25 | XMS_ITS | Encounter Summary ---
Author Organization [facility] Address [address] [place] [address] Care Team Providers Care Centerless Grinder Name Role Phone Rosanne Santana MD Primary Care Provider [phone] Encounter Details Date Type Department Care Team (Latest Contact Info) Description 12/03/2001 Outpatient Historical [facility] Rosanne Sanchez MD [address] [place] [address] CORON ATHEROSCL [place] CORON VESSEL (Primary Dx) Social History Tobacco Use Types Packs/Day Years Used Date Smoking Tobacco: Never Assessed Sex and Gender Information Value Date Recorded Sex Assigned at Not on file Legal Sex Male 4:23 AM SMALL BUSINESS DIRECTOR Gender Identity Not on file Sexual Orientation Not on file documented as of this encounter Plan of Treatment Not on file documented as of this encounter Visit Diagnoses Diagnosis Coronary atherosclerosis of [place] coronary artery- Primary documented in this encounter Care Teams Centerless Grinder Relationship Specialty Start Date End Date Rosanne Santana MD [address] [place] [address] PCP - General 10/24/03 documented as of this encounter
--- OUTSIDE RECORDS SUMMARY | 2024-06-02 00:25 | XMS_ITS | Encounter Summary ---
Author Organization [employer] Address [address] [place] [address] Care Team Providers Care Kier Operator Name Role Phone Rosanne Santana MD Primary Care Provider [phone] Encounter Details Date Type Department Care Team (Late st Contact Info) Description 11/08/[address] [facility] Support Serv. (Adt Cardiology-[facility]) [address] [place] [phone] Adelso Weathers MD NO ADDRESS ON FILE Social History Tobacco Use Types Packs/Day Years Used Date Smoking Tobacco: Never Assessed Sex and Gender Information Value Date Recorded Sex Assigned at Not on file Legal Sex Male 4:23 AM MINING DETAIL DRAFTSPERSON Gender Identity Not on file Sexual Orientation Not on file documented as of this encounter Plan of Treatment Not on file documented as of this encounter Visit Diagnoses Not on filedocumented in this encounter Care Teams Kier Operator Relationship Specialty Start Date End Date Rosanne Santana MD [address] [place] [address] PCP - General 10/24/03 documented as of this encounter
--- OUTSIDE RECORDS SUMMARY | 2024-06-02 00:25 | XMS_ITS | Encounter Summary ---
Author Organization [employer] Address [address] [place] [address] Care Team Providers Care Plaster Mixer Name Role Phone Rosanne Santana MD Primary Care Provider [phone] Encounter Details Date Type Department Care Team (Latest Contact Info) Description 01/17/2003 Outpatient [facility] [address] [place] [address] & [place] [address] Rosanne Santana MD [address] [facility] [facility] [address] [place] [address] PURE HYPERCHOLESTEROLEM (Primary Dx) Social History Tobacco Use Types Packs/Day Years Used Date Smoking Tobacco: Never Assessed Sex and Gender Information Value Date Recorded Sex Assigned at Not on file Legal Sex Male 4:23 AM GLOVE CLEANER Gender Identity Not on file Sexual Orientation Not on file documented as of this encounter Plan of Treatment Not on file documented as of this encounter Visit Diagnoses Diagnosis Pure hypercholesterolemia- Primary documented in this encounter Care Teams Plaster Mixer Relationship Specialty Start Date End Date Rosanne Santana MD [address] [facility] [place] [address] PCP - General 10/24/03 documented as of this encounter
--- OUTSIDE RECORDS SUMMARY | 2024-06-02 00:25 | XMS_ITS | Encounter Summary ---
Author Organization [employer] Address [address] [place] [address] Care Team Providers Care Wind Science And Planning Name Role Phone Rosanne Santana MD Primary Care Provider Encounter Details Date Type Department Care Team (Latest Contact Info) Description 01/17/2004 Outpatient [facility] [address] [place] [address] & [place] [address] Rosanne Santana MD [address] [place] [address] PURE HYPERCHOLESTEROLEM (Primary Dx) Social History Tobacco Use Types Packs/Day Years Used Date Smoking Tobacco: Never Assessed Sex and Gender Information Value Date Recorded Sex Assigned at Not on file Legal Sex Male 4:23 AM GAME ROOM ATTENDANT Gender Identity Not on file Sexual Orientation Not on file documented as of this encounter Plan of Treatment Not on file documented as of this encounter Visit Diagnoses Diagnosis Pure hypercholesterolemia- Primary documented in this encounter Care Teams Wind Science And Planning Relationship Specialty Start Date End Date Rosanne Santana MD [address] [place] [address] PCP - General 10/24/03 documented as of this encounter
--- OUTSIDE RECORDS SUMMARY | 2024-06-02 00:25 | XMS_ITS | Encounter Summary ---
Author Organization [employer] Address [address] [place] [address] Care Team Providers Care Prop Attendant Name Role Phone Rosanne Santana MD Primary Care Provider [phone] Encounter Details Date Type Department Care Team (Latest Contact Info) Description 10/22/2004 Inpatient Historical HIS PATIENT IN A BED Jono Scherer MD [address] [place] [address] POST WALL FIRST EPISODE CARE ([facility]) (Primary Dx) Social History Tobacco Use Types Packs/Day Years Used Date Smoking Tobacco: Never Assessed Sex and Gender Information Value Date Recorded Sex Assigned at Not on file 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 Gender Identity Not on file Sexual [...] K/uL INTERFACE SYSTEM 10/25/2004 6:44 AM CDT us Rosanne Santana MD HEMATOLOGY ORDERABLES Final Re sult INTERFACE SYSTEM Refer to clinic/hospital department * [...] fL INTERFACE SYSTEM 10/25/2004 6:44 AM CDT us Rosanne Santana MD HEMATOLOGY ORDERABLES Final Re sult Performing Organization Address [facility] Co de Phone Number INTERFACE SYSTEM Refer to clinic/hospital department * MAGNESIUM LEVEL (10/25/2004 6:44 AM CDT) MAGNESIUM 1.9 1.5 - 2.5 mg/dL INTERFACE SYSTEM 10/25/2004 6:44 AM CDT us Rosanne Santana MD CHEMISTRY ORDERABLES Final Res ult Performing Organization Address [facility] Co de Phone Number INTERFACE [...] mmol/L INTERFACE SYSTEM 10/25/2004 6:44 AM CDT us Rosanne Santana MD CHEMISTRY ORDERABLES Final Res ult Performing Organization Address [facility] Phone Number INTERFACE SYSTEM Refer to clinic/hospital department * (ABNORMAL) CK TOTAL, RELATIVE INDEX (10/24/2004 7:01 AM CDT) CARDIAC RELATIVE INDEX 4.1(H) <=4.0 INTERFACE SYSTEM CK 796(H) 10 - 170 U/L INTERFACE SYSTEM 10/24/2004 7:01 AM CDT Kan Atkinson MD CHEMISTRY ORDERABLES Final Res ult Performing Organization Address [facility] Phone Number INTERFACE SYSTEM Refer to clinic/hospital department * (ABNORMAL) CKMB W/REFLEX CK (10/24/2004 7:01 AM CDT) Pathologist [facility] CKMB 33.0(AA) <=6.7 ng/mL INTERFACE SYSTEM Comment:Persistent abnormal result CKMB INTERP See Below INTERFAC E SYSTEM Comment:Elevated CKMB,Consis tent with Myocardial Injury 10/24/2004 7:01 AM CDT Kan Atkinson MD CHEMISTRY ORDERABLES Final Res ult Performing Organization Address [facility] Phone Number INTERFACE SYSTEM Refer to clinic/hospital department * (ABNORMAL) CBC WITH DIFFERENTIAL (10/24/2004 4:42 AM CDT) Pathologist [facility] NEUTROPHILS 71(H) 45 - 70 % INTERFAC [...] 10/24/2004 4:42 AM CDT Alba Huff HEMATOLOGY ORDERABLES Final Resu lt Performing Organization Address [facility] Phone Number INTERFACE SYSTEM Refer to [...] 10/24/2004 4:42 AM CDT Alba Huff HEMATOLOGY ORDERABLES Final Resu lt Performing Organization Address [facility] Number INTERFACE SYSTEM Refer to clinic/hospital department * MAGNESIUM LEVEL (10/24/2004 4:42 AM CDT) MAGNESIUM 1.9 1.5 - 2.5 mg/dL INTERFACE SYSTEM 10/24/2004 4:42 AM CDT Alba Huff CHEMISTRY ORDERABLES Final Resul t Performing Organization Address [facility] Phone Number INTERFACE SYSTEM Refer to [...] mmol/L INTERFACE SYSTEM 10/24/2004 4:42 AM CDT [employer] CHEMISTRY ORDERABLES Final Resul t Performing Organization Address City/[facility] de Phone Number INTERFACE SYSTEM Refer to clinic/hospital department * (ABNORMAL) CK TOTAL, RELATIVE INDEX (10/23/2004 1:45 PM CDT) CARDIAC RELATIVE INDEX 8.0(H) <=4.0 INTERFACE SYSTEM CK 1,462(H) 10 - 170 U/L INTERFACE SYSTEM 10/23/2004 1:45 PM CDT [employer] CHEMISTRY ORDERABLES Final Resul t Performing Organization Address [facility] Phone Number INTERFACE SYSTEM Refer to clinic/hospital department * (ABNORMAL) CKMB W/REFLEX CK (10/23/2004 1:45 PM CDT) CKMB 117.0(AA) <=6.7 ng/mL INTERFACE SYSTEM Comment:Persistent abnormal result CKMB INTERP See Below INTERFAC E SYSTEM Comment:Elevated CKMB,Consis tent with Myocardial Injury 10/23/2004 1:45 PM CDT [employer] CHEMISTRY ORDERABLES Final Resul t Performing Organization Address [facility] de Phone Number INTERFACE SYSTEM [...] K/uL INTERFACE SYSTEM 10/23/2004 1:45 PM CDT [employer] HEMATOLOGY ORDERABLES Final Resu lt Performing Organization Address [facility] Phone Number INTERFACE SYSTEM Refer to [...] fL INTERFACE SYSTEM 10/23/2004 1:45 PM CDT [employer] HEMATOLOGY ORDERABLES Final Resu lt Performing Organization Address [facility] de Phone Number INTERFACE SYSTEM [...] mmol/L INTERFACE SYSTEM 10/23/2004 1:45 PM CDT [employer] CHEMISTRY ORDERABLES Final Resul t Performing Organization Address [facility] Phone Number INTERFACE SYSTEM Refer to clinic/hospital department * MAGNESIUM LEVEL (10/23/2004 1:45 PM CDT) Pathologist [facility] MAGNESIUM 2.2 1.5 - 2.5 mg/dL INTERFACE SYSTEM 10/23/2004 1:45 PM CDT [employer] CHEMISTRY ORDERABLES Final Resul t Performing Organization Address [facility] Phone Number INTERFACE SYSTEM Refer to clinic/hospital department * (ABNORMAL) TROPONIN (W/REFLEX CKMB/CK) (10/23/2004 1:45 PM CDT) Pathologist [facility] TROPONIN T 5.78(AA) <=0.03 ng/mL INTERFACE SYSTEM Comment:Persistent abnormal result TROPONIN T INTERP See Below INTERFACE SYSTEM Comment:Elevated Troponin-T, Consistent with Myocardial Injury 10/23/2004 1:45 PM CDT [employer] ORDERABLES Final Resul t Performing Organization Address [facility] Phone Number INTERFACE SYSTEM Refer to clinic/hospital department * (ABNORMAL) CBC WITH DIFFERENTIAL (10/23/2004 11:27 AM CDT) Pathologist [facility] NEUTROPHILS 77(H) 45 - 70 % INTERFAC [...] 7 AM CDT Jono Scherer MD HEMATOLOGY ORDERABLES Final R esult Performing Organization Address City/[facility] de Phone Number INTERFACE SYSTEM [...] 7 AM CDT Jono Scherer MD HEMATOLOGY ORDERABLES Final R esult Performing Organization Address [facility] Co de Phone Number INTERFACE [...] ORDERABLES Final Re sult Performing Organization Address [facility] Phone Number INTERFACE SYSTEM Refer to clinic/hospital department * (ABNORMAL) CK TOTAL, RELATIVE INDEX (10/23/2004 11:27 AM CDT) CARDIAC RELATIVE INDEX 8.5(H) <=4.0 INTERFACE SYSTEM CK 1,062(H) 10 - 170 U/L INTERFACE SYSTEM 10/23/2004 11:2 7 AM CDT Jono Scherer MD CHEMISTRY ORDERABLES Final Re sult Performing Organization Address [facility] Phone Number INTERFACE SYSTEM Refer to clinic/hospital department * (ABNORMAL) CKMB W/REFLEX CK (10/23/2004 11:27 AM CDT) CKMB 90.5(AA) <=6.7 ng/mL INTERFACE SYSTEM Comment:Persistent abnormal result CKMB INTERP See Below INTERFAC E SYSTEM Comment:Elevated CKMB,Consis tent with Myocardial Injury 10/23/2004 11:2 7 AM CDT us Jono Scherer MD CHEMISTRY ORDERABLES Final Re sult Performing Organization Address [facility] Phone Number INTERFACE SYSTEM Refer to clinic/hospital department * (ABNORMAL) TROPONIN (W/REFLEX CKMB/CK) (10/23/2004 11:27 AM CDT) TROPONIN T 3.92(AA) <=0.03 ng/mL INTERFACE SYSTEM Comment:Persistent abnormal result TROPONIN T INTERP See Below INTERFACE SYSTEM Comment:Elevated Troponin-T, Consistent with Myocardial Injury 10/23/2004 11:2 7 AM CDT Jono Scherer MD CHEMISTRY ORDERABLES Final Re sult Performing Organization Address [facility] Phone Number INTERFACE SYSTEM Refer to clinic/hospital department * MAGNESIUM LEVEL (10/23/2004 2:44 AM CDT) MAGNESIUM 1.8 1.5 - 2.5 mg/dL INTERFACE SYSTEM 10/23/2004 2:44 AM CDT Jono Scherer MD CHEMISTRY ORDERABLES Final Re sult Performing Organization Address [facility] Phone Number INTERFACE SYSTEM Refer to clinic/hospital department * (ABNORMAL) CK TOTAL, RELATIVE INDEX (10/23/2004 2:44 AM CDT) CARDIAC RELATIVE INDEX 9.4(H) <=4.0 INTERFACE SYSTEM CK 1,648(H) 10 - 170 U/L INTERFACE SYSTEM 10/23/2004 2:44 AM CDT Jono Scherer MD CHEMISTRY ORDERABLES Final Re sult Performing Organization Address [facility] Phone Number INTERFACE SYSTEM Refer to clinic/hospital department * (ABNORMAL) CKMB W/REFLEX CK (10/23/2004 2:44 AM CDT) CKMB 155.5(AA) <=6.7 ng/mL INTERFACE SYSTEM Comment:Results called to elina israel at _10/23/2004 3:37 AM and read back verified. CKMB INTERP See Below INTERFAC E SYSTEM Comment:Elevated CKMB,Consis tent with Myocardial Injury. 10/23/2004 2:44 AM CDT us Jono Scherer MD CHEMISTRY ORDERABLES Final Re sult Performing Organization Address [facility] Phone Number INTERFACE SYSTEM Refer to clinic/hospital department * (ABNORMAL) CBC WITH DIFFERENTIAL (10/23/2004 2:44 AM CDT) NEUTROPHILS 87(H) 45 - 70 % INTERFAC [...] 2:44 AM CDT Jono Scherer MD HEMATOLOGY ORDERABLES Final R esult Performing Organization Address [facility] Phone Number INTERFACE SYSTEM Refer to [...] 2:44 AM CDT Jono Scherer MD HEMATOLOGY ORDERABLES Final R esult INTERFACE SYSTEM Refer to clinic/hospital department * (ABNORMAL) TROPONIN (W/REFLEX CKMB/CK) (10/23/2004 2:44 AM CDT) TROPONIN T 3.78(AA) <=0.03 ng/mL INTERFACE SYSTEM Comment:[facility] 10[facility]23/2004 3:12 AM and read back verified. TROPONIN T INTERP See Below INTERFACE SYSTEM Comment:Elevated Troponin-T, Consistent with Myocardial Injury 10/23/2004 2:44 AM CDT Jono Scherer MD CHEMISTRY ORDERABLES Final Re sult Performing Organization Address City/[facility]/ZIP Co de Phone Number INTERFACE SYSTEM Refer [...] Comment: Adult ATP III Classifications: Cholesterol (mg/dL) Triglyceride (mg/dL) Desirable <200 Normal <150 Borderline 200 - 239 Borderline High 150 - 199 High >=240 High 200 - 499 Very High >=500 HDL Cholesterol (mg/dL) LDL (mg/dL) Low (increased risk) <40 Optimal <100 High (reduced risk) >=60 Near or above optimal 100 - 129 Borderline 130 - 159 High 160 - 189 Very High >=190 LDL calculation is not accurate if Triglycerides are greater than 400 mg /dL Pediatric NCEP Classifications: Cholesterol(<20 years),(mg/dL) Triglyceride Desirable <170 Pediatric classification Borderline 170 - 199 not defined. High >=200 HDL (<5 years) LDL (mg/dL) No Reference Range Established Desirable <110 Borderline 110 - 129 High >=130 10/23/2004 2:44 AM CDT Jono Scherer MD CHEMISTRY ORDERABLES Final Re sult Performing Organization Address [facility] Phone Number INTERFACE SYSTEM Refer to [...] 8.6 - 10.2 mg/dL INTERFACE SYSTEM 10/23/2004 2:44 AM CDT Jono Scherer MD CHEMISTRY ORDERABLES Final Re sult Performing Organization Address [facility] de Phone Number INTERFACE SYSTEM Refer to clinic/hospital department documented in this encounter Visit Diagnoses Diagnosis Acute myocardial infarction, true posterior wall infarction, initial episode of care ([facility])- Primary Acute myocardial infarction, true posterior wall infarction, initial episode of care documented in this encounter Care Teams Prop Attendant Relationship Specialty Start Date End Date Rosanne Santana MD [address] [place] [address] [place] [address] PCP - General 10/24/03 documented as of this encounter
--- OUTSIDE RECORDS SUMMARY | 2024-06-02 00:25 | XMS_ITS | Encounter Summary ---
Author Organization [employer] Address [address] [place] [address] Care Team Providers Care Golf Cart Attendant Name Role Phone Rosanne Santana MD Primary Care Provider [phone] Encounter Details Date Type Department Care Team (Latest Contact Info) Description 10/24/2003 Outpatient [facility] [address] [place] [address] & [place] [address] Rosanne Santana MD [address] [place] [address] PURE HYPERCHOLESTEROLEM (Primary Dx) Social History Tobacco Use Types Packs/Day Years Used Date Smoking Tobacco: Never Assessed Sex and Gender Information Value Date Recorded Sex Assigned at Not on file 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
--- OUTSIDE RECORDS SUMMARY | 2024-06-02 00:25 | XMS_ITS | Encounter Summary ---
Author Organization [employer] Address [address] [place] [address] Care Team Providers Care Blackener Name Role Phone Rosanne Santana MD Primary Care Provider [phone] Encounter Details Date Type Department Care Team (Late st Contact Info) Description 12/02/2001 Outpatient Historical [facility] [address] 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
--- OUTSIDE RECORDS SUMMARY | 2024-06-02 00:25 | XMS_ITS | Encounter Summary ---
Author Organization [employer] Address 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 Rosanne Santana MD [address] [facility] [place] [address] CORON ATHEROSCL [place] CORON VESSEL (Primary Dx) Social History Tobacco Use Types Packs/Day Years Used Date Smoking Tobacco: Never Assessed Sex and Gender Information Value Date Recorded Sex Assigned at Not on file 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
--- OUTSIDE RECORDS SUMMARY | 2024-06-02 00:25 | XMS_ITS | Encounter Summary ---
Author Organization [employer] Address [address] [place] [address] Care Team Providers Care Legal Process Specialist Name Role Phone Rosanne Santana MD Primary Care Provider [phone] Encounter Details Date Type Department Care Team (Latest Contact Info) Description 12/02/2001 Outpatient Historical HIS CARDIOPULMONARY Rosanne Santana MD [address] [facility] [place] [address] OTHER MALAISE AND FATIGUE (Primary Dx) Social History Tobacco Use Types Packs/Day Years Used Date Smoking Tobacco: Never Assessed Sex and Gender Information Value Date Recorded Sex Assigned at Not on file 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
[2024-06-02 08:05] VITALS: BP 128/73; PULSE 74; RESP 18; TEMP 35.8; O2SAT 97; BMI 26.0
[2024-06-02] MEDS: LACTATED RINGERS 1,000 ML 150 ML IV CONT (08:29)
--- NOTE | 2024-06-02 08:45 | P.PNAN_ITS ---
Anes - Initial Pre Proc Eval Procedure: Operation Date: 06/02/24 09:30 Proposed Procedures p Colonoscopy - Valente Christian MD Date/Time: 06/02/24 08:45 Surgeon: Valente Christian MD Pre Op Diagnosis: hx of colon polyps Patient Data Age: 74 Gender: M Height: 1.85 m Weight: 89.6 kg Last Vital Signs Temp 35.8 C L 06/02/24 08:05 Pulse 74 06/02/24 08:05 Resp 18 06/02/24 08:05 BP 128/73 06/02/24 08:05 Pulse Ox 97 06/02/24 08:05 O2 Del Method Room Air 06/02/24 08:05 Allergies Allergy/AdvReac Type Severity Reaction Status Date / Time No Known Allergies Allergy Verified 06/02/24 08:12 Home Medications ?Medication ?Instructions ?Recorded ?Confirmed ?Type clopidogrel 75 mg tablet (Plavix) 75 mg PO DAILY 02/19/19 06/02/24 History furosemide 40 mg tablet 40 mg PO QAM 10/17/20 06/02/24 History rosuvastatin 20 mg tablet (Crestor) 20 mg PO QHS 11/27/20 06/02/24 History metoprolol succinate 25 mg 25 mg PO DAILY 02/13/23 06/02/24 History tablet,extended release 24 hr sacubitril 49 mg-valsartan 51 mg 0.5 tablet PO BID 02/13/23 06/02/24 History tablet (Entresto) levothyroxine 50 mcg tablet 50 mcg PO DAILY #90 tabs 05/12/23 06/02/24 Rx nitroglycerin 0.4 mg sublingual 0.4 mg sublingual Q5M PRN chest 02/27/24 05/24/24 History tablet pain tamsulosin 0.4 mg capsule 0.4 mg PO DAILY 02/27/24 06/02/24 History Patient hx anesthesia problems: none Family hx anesthesia problems: none Results Review: All pre-operative results and documents have been reviewed as part of the pre- operative evaluation. 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) History of colon polyps History of myocardial infarction x3 per patient Bruises easily History of stress test Hypertension Fatty liver Environmental allergies Essential (primary) hypertension History of COVID-19 02/2020, 05/2021 Positive colorectal cancer screening using DNA-based stool test (~06/2019) Nonrheumatic mitral (valve) insufficiency (~2009) Nonrheumatic tricuspid (valve) insufficiency (~2009) Unspecified diastolic (congestive) heart failure (~2009) Ischemic dilated cardiomyopathy (~2009) Hypothyroidism Surgical History Surgical History H/O transurethral resection of bladder tumor (TURBT) (~11/2023) History of PTCA (~02/2010) 12/29/1997 @ 47 y/o LAD stent x1 11/08/2003 @ 53 y/o LAD stent x2 06/25/2007 @ 57 y/o PCI diagonal 05/21/2006 @ 56 years: PCI to LAD 10/23/2004 @ 54 years PTCA to OM 02/2010 :last stent 09/2016: PCI to LAD Dr. Santana 2019 Patient states he has a total of 15 stents (?) History of cholecystectomy (~03/2011) Family History Family History Father Heart disease Mother Heart disease Sibling Heart disease Other Family history of coronary artery disease Social History Social History Smoking packs per day: 3 Smoking cigarettes per day: 60.0 Years smoked: 15 Smoking pack-years: 45.00 Smoking status: Former smoker Tobacco type: cigarettes Smoking end date: 03/31/77 Alcohol intake: never Substance use: never Substance use type: does not use Lack of Transportation: No Lack of Food: Never True Current Housing: Decline to Answer Concerned About Future Housing: No Difficulty Paying Gas/Electric Bills: No Difficulty Paying for Meds: No Currently Unemployed: No Education: High School Diploma/GED Difficulty w/ Childcare or Family Care: No Living arrangements: with family Additional living arrangements comments: 2nd marriage: fathered 2 sons from first marriage Occupation/Education: retired 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 Gender identity (if verbalized by the patient): Male Spiritual care concerns: No Agree to blood products: Yes Anes - Eval Final PreProcedure Day of Procedure 06/02/24 08:45 Patient weight: overweight Heart: regular rate and rhythm Lungs: clear to auscultation Airway: Mallampati scale class II Neurological: alert and oriented Last oral intake: >/= 8 hours ASA classification: III Emergent: no Anesthetic plan: proceed Anesthesia type and monitoring: general GIVS and standard monitoring Results Review: All pre-operative results and documents have been reviewed as part of the pre- operative evaluation. Informed Consent: The patient's anesthetic plan and its attendant risks and benefits were discussed with the patient/family/POA. Questions were solicited and answers provided to the satisfaction of the patient/family/POA.
--- NOTE | 2024-06-02 09:08 | P.HP_ITS ---
History of Present Illness History of Present Illness Consent: Risks, benefits, and alternatives have been discussed and questions answered. Patient agrees to proceed with procedure. 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) History of colon polyps History of myocardial infarction x3 per patient Bruises easily History of stress test Hypertension Fatty liver Environmental allergies Essential (primary) hypertension History of COVID-19 02/2020, 05/2021 Positive colorectal cancer screening using DNA-based stool test (~06/2019) Nonrheumatic mitral (valve) insufficiency (~2009) Nonrheumatic tricuspid (valve) insufficiency (~2009) Unspecified diastolic (congestive) heart failure (~2009) Ischemic dilated cardiomyopathy (~2009) Hypothyroidism Surgical History Surgical History H/O transurethral resection of bladder tumor (TURBT) (~11/2023) History of PTCA (~02/2010) 12/29/1997 @ 47 y/o LAD stent x1 11/08/2003 @ 53 y/o LAD stent x2 06/25/2007 @ 57 y/o PCI diagonal 05/21/2006 @ 56 years: PCI to LAD 10/23/2004 @ 54 years PTCA to OM 02/2010 :last stent 09/2016: PCI to LAD Dr. Santana 2018 Patient states he has a total of 15 stents (?) History of cholecystectomy (~03/2011) Family History Family History Father Heart disease Mother Heart disease Sibling Heart disease Other Family history of coronary artery disease Social History Social History Smoking packs per day: 3 Smoking cigarettes per day: 60.0 Years smoked: 15 Smoking pack-years: 45.00 Smoking status: Former smoker Tobacco type: cigarettes Smoking end date: 03/31/77 Alcohol intake: never Substance use: never Substance use type: does not use Lack of Transportation: No Lack of Food: Never True Current Housing: Decline to Answer Concerned About Future Housing: No Difficulty Paying Gas/Electric Bills: No Difficulty Paying for Meds: No Currently Unemployed: No Education: High School Diploma/GED Difficulty w/ Childcare or Family Care: No Living arrangements: with family Additional living arrangements comments: 2nd marriage: fathered 2 sons from first marriage Occupation/Education: retired 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 Gender identity (if verbalized by the patient): Male Spiritual care concerns: No Agree to blood products: Yes Meds Home Medications and Allergies Home Medications ?Medication ?Instructions ?Recorded ?Confirmed ?Type clopidogrel 75 mg tablet (Plavix) 75 mg PO DAILY 02/19/19 06/02/24 History furosemide 40 mg tablet 40 mg PO QAM 10/17/20 06/02/24 History rosuvastatin 20 mg tablet (Crestor) 20 mg PO QHS 11/27/20 06/02/24 History metoprolol succinate 25 mg 25 mg PO DAILY 02/13/23 06/02/24 History tablet,extended release 24 hr sacubitril 49 mg-valsartan 51 mg 0.5 tablet PO BID 02/13/23 06/02/24 History tablet (Entresto) levothyroxine 50 mcg tablet 50 mcg PO DAILY #90 tabs 05/12/23 06/02/24 Rx nitroglycerin 0.4 mg sublingual 0.4 mg sublingual Q5M PRN chest 02/27/24 05/24/24 History tablet pain tamsulosin 0.4 mg capsule 0.4 mg PO DAILY 02/27/24 06/02/24 History Allergies Allergy/AdvReac Type Severity Reaction Status Date / Time No Known Allergies Allergy Verified 06/02/24 08:12 Vital Signs Vital Signs - 24 hr 06/02/24 08:05 Temperature 96.4 F L Pulse Rate 74 Respiratory Rate 18 Blood Pressure 128/73 Pulse Oximetry 97 Oxygen Delivery Room Air Exam Const: General: comfortable and no acute distress HENMT: Face/Nose/Sinus: Normal nares present Eyes: General: appearance normal, both eyes and all related structures Neck: Neck: no JVD Resp: Auscultation: clear to auscultation bilaterally Cardio: Rate: regular rate Rhythm: regular rhythm GI: Inspection: non-distended GI Palp: Yes Soft to palpation Skin: General skin exam: normal color Neuro: Speech: normal speech Extrem: General: normal to inspection Psych: Mental Status: mental status grossly normal Assessment and Plan Assessment and plan (1) Adenomatous colon polyp: Code(s): D12.6 - Benign neoplasm of colon, unspecified Status: Acute Assessment and Plan: colonoscopy
[2024-06-02 09:29] VITALS: BP 77/36; PULSE 68; RESP 21; O2SAT 96
[2024-06-02 09:32] VITALS: BP 99/55; PULSE 65; RESP 20
[2024-06-02 09:39] VITALS: BP 127/75; PULSE 67; RESP 19; O2SAT 97
[2024-06-02 09:49] VITALS: BP 138/83; PULSE 61; RESP 19; O2SAT 99
== END 2024-06-02 09:59 | disposition home or self-care (01) ==
PROVIDERS: PCP Family Medicine; Referring Provider Family Medicine; Visit Provider Internal Medicine Gastroenterology
PROC: 0DJD8ZZ Inspection of Lower Intestinal Tract, Via Natural or Artificial Opening Endoscopic (ICD-10-PCS; CPT 45378; principal; 2024-06-02 09:30)
DX: Z12.11 Encounter for screening for malignant neoplasm of colon (principal); K57.30 Diverticulosis of large intestine without perforation or abscess without bleeding; K64.8 Other hemorrhoids; Z86.0100 Personal history of colon polyps, unspecified; Z87.891 Personal history of nicotine dependence
CPT/HCPCS: G0105; J2003; J2704; J7120

== ENCOUNTER 2024-08-13 07:35 | Outpatient (CLI) | payer MEDICARE, SELFPAY ==
--- OUTSIDE RECORDS SUMMARY | 2024-08-13 07:38 | XMS_ITS | Encounter Summary ---
Author Organization [facility] Address [address] [place] [address] Care Team Providers Care Music Department Chair Name Role Phone Rosanne Santana MD Primary Care Provider [phone] Encounter Details Date Type Department Care Team (Late st Contact Info) Description 05/03/1998 Outpatient Historical [facility] Eliezer Goddard, [address] [facility] [address] [place] [address] Er, Authorized P NO ADDRESS ON FILE Other specified sites of sprains and strains (Primary Dx) Social History Tobacco Use Types Packs/Day Years Used Date Smoking Tobacco: Never Assessed Sex and Gender Information Value Date Recorded Sex Assigned at Not on file 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
--- OUTSIDE RECORDS SUMMARY | 2024-08-13 07:38 | XMS_ITS | Encounter Summary ---
Author Organization [facility] Address [address] [place] [address] Care Team Providers Care Still Cleaner Tube Name Role Phone Rosanne Santana MD Primary Care Provider [phone] Encounter Details Date Type Department Care Team (Late st Contact Info) Description 03/04/2001 Outpatient Historical [facility] Venkat Uribe MD [address] 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
--- OUTSIDE RECORDS SUMMARY | 2024-08-13 07:38 | XMS_ITS | Continuity of Care Document ---
Author Name [facility] Organization [facility] Care Team Providers Care Facilities Maintenance Engineer Name Role Phone [facility] Unavailable Unavailable Problems Combined list of problems from [facility] and [facility] facilities. It does not include entries that were removed or entered in error. Problem Status Onset Date Problem Type Date of Resolution Comments Source Benign essential hypertension Active Condition [facility] Congestive heart failure Active Condition [facility] Coronary atherosclerosis (SNOMED CT 613873005) Active Condition Apr 06, 2004 Entered By: DONNY HARRISON Comment: myocardial infarction [facility] Hyperlipidemia (SNOMED CT 10935758) Active Condition [facility] Hypothyroidism Active Condition [facility] Prediabetes Active Condition [facility] Diagnosis: ICD-10-CM Z13.5 Encounter for screening for eye and ear disorders Active Diagnosis [facility] Diagnosis: ICD-10-CM I25.10 Athscl heart disease of [place] coronary artery w/o ang pctrs Active Diagnosis [facility] Medications Combined list of outpatient medications from [facility] and [facility] facilities.Medications provided include 1) outpatient medications from the last 15 months, and 2) patient-reported medications. Medication Details Route Status Patient Instructions Prescription Expires Prescription Number Last Dispense Date Ordering Provider Order Date Order Qty Source ASPIRIN 81MG TAB,EC TAKE ONE TABLET BY MOUTH ONCE A DAY FOR CARDIOVA SCULAR DISEASE TAKE WITH FOOD ORAL ACTIVE 11/19/2024 [id number] 4 MARGUERITE PAEZ E 2023 120 [facility] ASPIRIN 81MG TAB,EC TAKE ONE TABLET BY MOUTH ONCE A DAY FOR CARDIOVA SCULAR DISEASE TAKE WITH FOOD ORAL DISCONT INUED 02/28/2024 [id number] 4 JOEL GRIER LISSY T 2022 120 [facility] CLOPIDOGREL BISULFATE 75MG TAB TAKE ONE TABLET BY MOUTH ONCE A DAY FOR ACUTE CORONARY SYNDROME ORAL ACTIVE 11/19/2024 [id number] 5 MARGUERITE PAEZ 2023 90 [facility] CLOPIDOGREL BISULFATE 75MG TAB TAKE ONE TABLET BY MOUTH ONCE A DAY FOR ACUTE CORONARY SYNDROME ORAL DISCONT INUED 02/28/2024 [id number] 4 JOEL GRIER LISSY T 2022 90 [facility] FUROSEMIDE 40MG TAB TAKE ONE TABLET BY MOUTH EVERY MORNING FOR FLUID RETENTIO N (EDEMA) ORAL ACTIVE 11/19/2024 [id number] 5 MARGUERITE PAEZ 2023 90 [facility] FUROSEMIDE 40MG TAB TAKE ONE TABLET BY MOUTH EVERY MORNING FOR FLUID RETENTIO N (EDEMA) ORAL DISCONT INUED 02/28/2024 [id number] 4 MARVEL,JOEL YUAN T 2022 90 [facility] LEVOTHYROXI NE NA 50MCG TAB (SYNTHROID) TAKE ONE TABLET BY MOUTH EVERY MORNING BEFORE A MEAL FOR HYPOTHYR OIDISM TAKE 30 MINUTES BEFORE FOOD. TAKE SEPARATE LY FROM ALL OTHER MEDICATI ONS. ORAL ACTIVE 11/19/2024 [id number] 4 MARGUERITE PAEZ Julisa 2023 90 [facility] LEVOTHYROXI NE NA 50MCG TAB (SYNTHROID) TAKE ONE TABLET BY MOUTH EVERY MORNING BEFORE A MEAL FOR HYPOTHYR OIDISM TAKE 30 MINUTES BEFORE FOOD. TAKE SEPARATE LY FROM ALL OTHER MEDICATI ONS. ORAL DISCONT INUED 02/28/2024 [id number] 4 JOEL GRIER LISSY T 2022 90 [facility] METOPROLOL SUCCINATE 50MG TAB,SA TAKE ONE-HALF TABLET BY MOUTH ONCE A DAY FOR HIGH BLOOD PRESSURE SWALLO W WHOLE, DO NOT CRUSH OR CHEW (TABLETS MAY BE CUT IN HALF). ORAL ACTIVE 11/19/2024 [id number] 5 MARGUERITE PAEZ 2023 45 [facility] METOPROLOL SUCCINATE 50MG TAB,SA TAKE ONE-HALF TABLET BY MOUTH ONCE A DAY FOR HIGH BLOOD PRESSURE SWALLO W WHOLE, DO NOT CRUSH OR CHEW (TABLETS MAY BE CUT IN HALF). ORAL DISCONT INUED 02/28/2024 [id number] 4 JOEL GRIER T 2022 45 [facility] ROSUVASTATI N CA 40MG TAB TAKE ONE TABLET BY MOUTH EVERY EVENING FOR HIGH CHOLESTE ROL ORAL ACTIVE 11/19/2024 [id number] 5 MARGUERITE PAEZ 2023 90 [facility] ROSUVASTATI N CA 40MG TAB TAKE ONE TABLET BY MOUTH EVERY EVENING FOR HIGH CHOLESTE ROL ORAL DISCONT INUED 02/28/2024 [id number] 4 MARVELJOEL T 2022 90 [facility] SACUBITRIL 49MG/VALSAR ABBOTT 51MG TAB TAKE ONE-HALF TABLET BY MOUTH TWICE A DAY FOR HEART FAILURE ORAL ACTIVE 11/19/2024 [id number] 5 MARGUERITE PAEZ 2023 90 [facility] SACUBITRIL 49MG/VALSAR ABBOTT 51MG TAB TAKE ONE-HALF TABLET BY MOUTH TWICE A DAY FOR HEART FAILURE ORAL DISCONT INUED 02/28/2024 [id number] 4 JOEL GRIER T 2022 90 [facility] Immunizations Combined list of available immunizations from the Department of Defense and Veterans Affairs facilities. 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 Comments Source OUTSIDE FLU SHOT (HISTORICAL) 2004 88 complet ed [facility] INFLUENZA, UNSPECIFIED FORMULATION 2004 DONNY HARRISON 88 complet ed [facility] Results Combined list of recent chemistry, [...] Oct 04, 2023 05:25 PM Reporting Lab: [facility] [address] [place] [phone] Performing Lab: [address] [phone] [facility] CBC ERYTHROCYTE S [#/VOLUME] IN BLOOD BY AUTOMATED COUNT 3.64 10*6/u L 4.10 - 5.70 11/20 L Specimen Type: BLOOD No comment entered. Ordering Provider: WISAM GRIER Report Released Date/Time: Oct 04, 2023 05:25 PM Reporting Lab: [facility] [address] [facility] [address] Performing Lab: [address] [phone] [facility] CBC HEMOGLOBIN [MASS/VOLUM E] IN BLOOD 11.9 g/dL 13.1 - 16.8 11/20 L Specimen Type: BLOOD No comment entered. Ordering Provider: WISAM GRIER Report Released Date/Time: Oct 04, 2023 05:25 PM Reporting Lab: [facility] [address] [facility] [address] Performing Lab: [facility] [address] [place] [phone] [facility] CBC HEMATOCRIT [VOLUME FRACTION] OF BLOOD 35.0 38.2 - 48.4 11/20 L Specimen Type: BLOOD No comment entered. Ordering Provider: WISAM GRIER Report Released Date/Time: Oct 04, 2023 05:25 PM Reporting Lab: [facility] [address] [facility] [address] Performing Lab: [facility] [address] [place] [phone] [facility] CBC MCV [ENTITIC VOLUME] BY AUTOMATED COUNT 96.2 fL 80.0 - 100.0 11/20 Specimen Type: BLOOD No comment entered. Ordering Provider: WISAM GRIER Report Released Date/Time: Oct 04, 2023 05:25 PM Reporting Lab: [facility] [address] [place] [phone] Performing Lab: [facility] [address] [place] [phone] [facility] CBC MCH [ENTITIC MASS] BY AUTOMATED COUNT 32.7 pg 27.0 - 34.0 11/20 Specimen Type: BLOOD No comment entered. Ordering Provider: WISAM GRIER Report Released Date/Time: Oct 04, 2023 05:25 PM Reporting Lab: [facility] [address] [place] [phone] Performing Lab: [address] [phone] [place] [address] CBC MCHC [MASS/VOLUM E] BY AUTOMATED COUNT 34.0 g/dL 33.0 - 36.0 11/20 Specimen Type: BLOOD No comment entered. Ordering Provider: WISAM GRIER Report Released Date/Time: Oct 04, 2023 05:25 PM Reporting Lab: [facility] [address] [place] [phone] Performing Lab: [facility] [address] [place] [phone] [facility] CBC PLATELETS [#/VOLUME] IN BLOOD BY AUTOMATED COUNT 189 10*3/u L 150 - 400 11/20 Specimen Type: BLOOD No comment entered. Ordering Provider: WISAM GRIER Report Released Date/Time: Oct 04, 2023 05:25 PM Reporting Lab: [address] [phone] Performing Lab: [place] [id number] [facility] [address] [facility] CBC PLATELET MEAN VOLUME [ENTITIC VOLUME] IN BLOOD BY AUTOMATED COUNT 9.6 fL 7.5 - 11.2 11/20 Specimen Type: BLOOD No comment entered. Ordering Provider: WISAM GRIER Report Released Date/Time: Oct 04, 2023 05:25 PM Reporting Lab: [facility] [address] [place] [phone] Performing Lab: [facility] [address] [place] [phone] [facility] CBC ERYTHROCYTE DISTRIBUTIO N WIDTH [RATIO] BY AUTOMATED COUNT 14.6 11.8 - 15.1 11/20 Specimen Type: BLOOD No comment entered. Ordering Provider: WISAM GRIER Report Released Date/Time: Oct 04, 2023 05:25 PM Reporting Lab: [facility] [address] [place] [phone] Performing Lab: [facility] [address] [place] [phone] [facility] CBC LYMPHOCYTES /100 LEUKOCYTES IN BLOOD BY AUTOMATED COUNT 17 11/20 Specimen Type: BLOOD No comment entered. Ordering Provider: WISAM GRIER Report Released Date/Time: Oct 04, 2023 05:25 PM Reporting Lab: [facility] [address] [place] [phone] Performing Lab: [facility] [address] [place] [phone] [facility] CBC MONOCYTES/1 00 LEUKOCYTES IN BLOOD BY AUTOMATED COUNT 11 11/20 Specimen Type: BLOOD No comment entered. Ordering Provider: WISAM GRIER Report Released Date/Time: Oct 04, 2023 05:25 PM Reporting Lab: [facility] [address] [place] [phone] Performing Lab: [facility] [address] [place] [phone] [facility] CBC NEUTROPHILS /100 LEUKOCYTES IN BLOOD BY AUTOMATED COUNT 69 11/20 Specimen Type: BLOOD No comment entered. Ordering Provider: WISAM GRIER Report Released Date/Time: Oct 04, 2023 05:25 PM Reporting Lab: [facility] [address] [facility] [address] Performing Lab: [facility] [address] [place] [phone] [facility] CBC EOSINOPHILS /100 LEUKOCYTES IN BLOOD BY AUTOMATED COUNT 2 11/20 Specimen Type: BLOOD No comment entered. Ordering Provider: WISAM GRIER Report Released Date/Time: Oct 04, 2023 05:25 PM Reporting Lab: [facility] [address] [place] [phone] Performing Lab: [facility] [address] [place] [phone] CBC BASOPHILS/1 00 LEUKOCYTES IN BLOOD BY AUTOMATED COUNT 0 11/20 Specimen Type: BLOOD No comment entered. Ordering Provider: WISAM GRIER Report Released Date/Time: Oct 04, 2023 05:25 PM Reporting Lab: [facility] [address] [place] [phone] Performing Lab: [facility] [address] [place] [phone] [facility] CBC LYMPHOCYTES [#/VOLUME] IN BLOOD BY AUTOMATED COUNT 1.33 10*3/u L 0.77 - 4.50 11/20 Specimen Type: BLOOD No comment entered. Ordering Provider: WISAM GRIER Report Released Date/Time: Oct 04, 2023 05:25 PM Reporting Lab: [facility] [address] [place] [phone] Performing Lab: [facility] [address] [place] [phone] [facility] CBC MONOCYTES [#/VOLUME] IN BLOOD BY AUTOMATED COUNT 0.90 10*3/u L 0.19 - 0.80 11/20 H Specimen Type: BLOOD No comment entered. Ordering Provider: WISAM GRIER Report Released Date/Time: Oct 04, 2023 05:25 PM Reporting Lab: [facility] [address] [place] [address] Performing Lab: [facility] [address] [place], [place] [phone] [address] CBC NEUTROPHILS [#/VOLUME] IN BLOOD BY AUTOMATED COUNT 5.47 10*3/u L 2.10 - 8.00 11/20 Specimen Type: BLOOD No comment entered. Ordering Provider: WISAM GRIER Report Released Date/Time: Oct 04, 2023 05:25 PM Reporting Lab: [facility] [address] [place] [address] Performing Lab: [address] CBC EOSINOPHILS [#/VOLUME] IN BLOOD BY AUTOMATED COUNT 0.12 10*3/u L 0.00 - 0.60 11/20 Specimen Type: BLOOD No comment entered. Ordering Provider: WISAM GRIER Report Released Date/Time: Oct 04, 2023 05:25 PM Reporting Lab: [facility] [address] [place], [place] [phone] Performing Lab: [address] [phone] [address] CBC BASOPHILS [#/VOLUME] IN BLOOD BY AUTOMATED COUNT 0.03 10*3/u L 0.00 - 0.20 11/20 Specimen Type: BLOOD No comment entered. Ordering Provider: WISAM GRIER Report Released Date/Time: Oct 04, 2023 05:25 PM Reporting Lab: [facility] [address] [place] [address] Performing Lab: [place] [phone] COMPREHEN SIVE METABOLIC PANEL CREATININE [MASS/VOLUM E] IN SERUM OR PLASMA 0.98 mg/dL 0.7 - 1.3 11/20 Specimen Type: PLASMA Comment: No hemolysis noted. Ordering Provider: WISAM GRIER Report Released Date/Time: Oct 04, 2023 05:25 PM Reporting Lab: [facility] [address] [facility] [address] Performing Lab: [facility] [address] [facility] [address] [facility] COMPREHEN SIVE METABOLIC PANEL UREA NITROGEN [MASS/VOLUM E] IN SERUM OR PLASMA 13.6 mg/dL 9.0 - 25.0 11/20 Specimen Type: PLASMA Comment: No hemolysis noted. Ordering Provider: WISAM GRIER Report Released Date/Time: Oct 04, 2023 05:25 PM Reporting Lab: [facility] [address] [place] [phone] Performing Lab: [facility] [address] [place] [phone] [place] [address] COMPREHEN SIVE METABOLIC PANEL GLUCOSE [MASS/VOLUM E] IN SERUM OR PLASMA 109 mg/dL 72 - 99 11/20 H Specimen Type: PLASMA Comment: No hemolysis noted. Ordering Provider: WISAM GRIER Report Released Date/Time: Oct 04, 2023 05:25 PM Reporting Lab: [facility] [address] [place] [phone] Performing Lab: [facility] [address] [place] [phone] [facility] COMPREHEN SIVE METABOLIC PANEL SODIUM [MOLES/VOLU ME] IN SERUM OR PLASMA 140 meq/L 136 - 145 11/20 Specimen Type: PLASMA Comment: No hemolysis noted. Ordering Provider: WISAM GRIER Report Released Date/Time: Oct 04, 2023 05:25 PM Reporting Lab: [facility] [address] [facility] [address] Performing Lab: [facility] [address] [place] [phone] [facility] COMPREHEN SIVE METABOLIC PANEL POTASSIUM [MOLES/VOLU ME] IN SERUM OR PLASMA 4.0 meq/L 3.5 - 5 11/20 Specimen Type: PLASMA Comment: No hemolysis noted. Ordering Provider: WISAM GRIER Report Released Date/Time: Oct 04, 2023 05:25 PM Reporting Lab: [facility] [address] [facility] [phone] Performing Lab: [facility] [address] [place] [phone] [facility] COMPREHEN SIVE METABOLIC PANEL CHLORIDE [MOLES/VOLU ME] IN SERUM OR PLASMA 107 meq/L 98 - 107 11/20 Specimen Type: PLASMA Comment: No hemolysis noted. Ordering Provider: WISAM GRIER Report Released Date/Time: Oct 04, 2023 05:25 PM Reporting Lab: [address] [phone] Performing Lab: [facility] [address] [place] [phone] [facility] COMPREHEN SIVE METABOLIC PANEL CARBON DIOXIDE, TOTAL [MOLES/VOLU ME] IN SERUM OR PLASMA 24 meq/L 22 - 31 11/20 Specimen Type: PLASMA Comment: No hemolysis noted. Ordering Provider: WISAM GRIER Report Released Date/Time: Oct 04, 2023 05:25 PM Reporting Lab: [address] [phone] Performing Lab: [facility] [address] [place] [phone] [facility] COMPREHEN SIVE METABOLIC PANEL CALCIUM [MASS/VOLUM E] IN SERUM OR PLASMA 9.2 mg/dL 8.4 - 10.4 11/20 Specimen Type: PLASMA Comment: No hemolysis noted. Ordering Provider: WISAM GRIER Report Released Date/Time: Oct 04, 2023 05:25 PM Reporting Lab: [facility] [address] [place] [phone] Performing Lab: [facility] [address] [place] [phone] [facility] COMPREHEN SIVE METABOLIC PANEL PROTEIN [MASS/VOLUM E] IN SERUM OR PLASMA 7.2 g/dL 6 - 8.6 11/20 Specimen Type: PLASMA Comment: No hemolysis noted. Ordering Provider: WISAM GRIER Report Released Date/Time: Oct 04, 2023 05:25 PM Reporting Lab: [facility] [address] [place] [phone] Performing Lab: [facility] [address] [facility] [phone] [place] [address] COMPREHEN SIVE METABOLIC PANEL ALBUMIN [MASS/VOLUM E] IN SERUM OR PLASMA 3.8 g/dL 3.4 - 5 11/20 Specimen Type: PLASMA Comment: No hemolysis noted. Ordering Provider: WISAM GRIER Report Released Date/Time: Oct 04, 2023 05:25 PM Reporting Lab: [facility] [address] [place], [place] [phone] Performing Lab: [facility] [address] [facility] [phone] [place] [address] COMPREHEN SIVE METABOLIC PANEL BILIRUBIN.T OTAL [MASS/VOLUM E] IN SERUM OR PLASMA 0.9 mg/dL 0.2 - 1.2 11/20 Specimen Type: PLASMA Comment: No hemolysis noted. Ordering Provider: WISAM GRIER Report Released Date/Time: Oct 04, 2023 05:25 PM Reporting Lab: [facility] [address] [facility] [address] Performing Lab: [facility] [address] [facility] [phone] [facility] COMPREHEN SIVE METABOLIC PANEL ALKALINE PHOSPHATASE [ENZYMATIC ACTIVITY/VO LUME] IN SERUM OR PLASMA 71 U/L 40 - 150 11/20 Specimen Type: PLASMA Comment: No hemolysis noted. Ordering Provider: WISAM GRIER Report Released Date/Time: Oct 04, 2023 05:25 PM Reporting Lab: [facility] [address] [place] [phone] Performing Lab: [facility] [address] [facility] [address] [facility] COMPREHEN SIVE METABOLIC PANEL ASPARTATE AMINOTRANSF ERASE [ENZYMATIC ACTIVITY/VO LUME] IN SERUM OR PLASMA 16 U/L 5 - 34 11/20 Specimen Type: PLASMA Comment: No hemolysis noted. Ordering Provider: WISAM GRIER Report Released Date/Time: Oct 04, 2023 05:25 PM Reporting Lab: [facility] [address] [facility] [address] Performing Lab: [facility] [address] [place] [address] [phone] [place] [address] COMPREHEN SIVE METABOLIC PANEL ALANINE AMINOTRANSF ERASE [ENZYMATIC ACTIVITY/VO LUME] IN SERUM OR PLASMA 12 U/L 8 - 40 11/20 Specimen Type: PLASMA Comment: No hemolysis noted. Ordering Provider: WISAM GRIER Report Released Date/Time: Oct 04, 2023 05:25 PM Reporting Lab: [facility] [address] [facility] [address] Performing Lab: [facility] [address] [facility] [address] [facility] COMPREHEN SIVE METABOLIC PANEL GLOMERULAR FILTRATION RATE/1.73 SQ M.PREDICTED [VOLUME RATE/AREA] IN SERUM, PLASMA OR BLOOD BY CREATININE- BASED FORMULA (CKD-EPI 2020) 80.4 60 11/20 Specimen Type: PLASMA Comment: No hemolysis noted. Ordering Provider: WISAM GRIER Report Released Date/Time: Oct 04, 2023 05:25 PM Reporting Lab: [facility] [address] [facility] [address] Performing Lab: [facility] [address] [facility] [address] [facility] FREE T4 (STL) THYROXINE (T4) FREE [MASS/VOLUM E] IN SERUM OR PLASMA 0.90 ng/mL 0.7 - 1.48 11/20 Specimen Type: PLASMA No comment entered. Ordering Provider: WISAM GRIER Report Released Date/Time: Oct 04, 2023 05:25 PM Reporting Lab: [facility] [address] [place] [phone] Performing Lab: [facility] [address] [place] [phone] [facility] HGA1C HEMOGLOBIN A1C/HEMOGLO BIN.TOTAL IN BLOOD 5.6 4.0 - 6.0 11/20 Specimen Type: BLOOD No comment entered. Ordering Provider: WISAM GRIER Report Released Date/Time: Oct 04, 2023 05:25 PM Reporting Lab: [facility] [address] [place] [phone] Performing Lab: [address] [phone] [place] [address] LIPID PANEL (STL) CHOLESTEROL [MASS/VOLUM E] IN SERUM OR PLASMA 69 mg/dL 0 - 200 11/20 Specimen Type: PLASMA Comment: No hemolysis noted. Ordering Provider: WISAM GRIER Report Released Date/Time: Oct 04, 2023 05:25 PM Reporting Lab: [facility] [address] [place] [phone] Performing Lab: [facility] [address] [place] [phone] [facility] LIPID PANEL (STL) TRIGLYCERID E [MASS/VOLUM E] IN SERUM OR PLASMA 92 mg/dL 0 - 150 11/20 Specimen Type: PLASMA Comment: No hemolysis noted. Ordering Provider: WISAM GRIER Report Released Date/Time: Oct 04, 2023 05:25 PM Reporting Lab: [facility] [address] [place] [phone] Performing Lab: [facility] [address] [place] [phone] [facility] LIPID PANEL (STL) CHOLESTEROL IN LDL [MASS/VOLUM E] IN SERUM OR PLASMA BY CALCULATION 26 mg/dL 11/20 Specimen Type: PLASMA Comment: No hemolysis noted. Ordering Provider: WISAM GRIER Report Released Date/Time: Oct 04, 2023 05:25 PM Reporting Lab: [facility] [address] [place], [place] [phone] Performing Lab: [address] [phone] LIPID PANEL (STL) CHOLESTEROL IN HDL [MASS/VOLUM E] IN SERUM OR PLASMA 25 mg/dL 40 11/20 L Specimen Type: PLASMA Comment: No hemolysis noted. Ordering Provider: WISAM GRIER Report Released Date/Time: Oct 04, 2023 05:25 PM Reporting Lab: [address] [phone] Performing Lab: [address] PROST. SPECIFIC AG.(PB-ST L) PROSTATE SPECIFIC [...] Oct 04, 2023 05:25 PM Reporting Lab: [place] [phone] Performing Lab: [address] TSH W/ REFLEX FT4 (STL) THYROTROPIN [UNITS/VOLU ME] IN SERUM OR PLASMA 4.294 u[IU]/ mL 0.47 - 5 11/20 Specimen Type: PLASMA No comment entered. Ordering Provider: WISAM GRIER Report Released Date/Time: Oct 04, 2023 05:25 PM Reporting Lab: [place] [address] Performing Lab: [address] [place] [place] [address] [facility] VITAMIN D, 25-HYDROX Y 25-HYDROXYV ITAMIN D3 [...] Oct 04, 2023 05:25 PM Reporting Lab: [address] [phone] Performing Lab: [place] [id number] [place] [address] FREE T4 THYROXINE (T4) FREE [MASS/VOLUM E] IN SERUM OR PLASMA 1.34 ng/mL 0.7 - 1.48 11/28 Specimen Type: SERUM No comment entered. Ordering Provider: WISAM GRIER Report Released Date/Time: Nov 19, 2022 04:37 PM Reporting Lab: [address] [phone] Performing Lab: [address] [phone] [facility] TSH (MA-PB-ST L) THYROTROPIN [UNITS/VOLU ME] IN SERUM OR PLASMA 3.433 u[IU]/ mL 0.47 - 5 11/28 Specimen Type: SERUM No comment entered. Ordering Provider: WISAM GRIER Report Released Date/Time: Nov 19, 2022 04:37 PM Reporting Lab: [facility] [address] [place] [id number] Performing Lab: [address] [address] [facility] Vital Signs Combined list of inpatient and outpatient Vital Signs from Department of Defense and Veterans Affairs, ranging from 12 months to all on record, depending upon the facility. Vital Sign Value Date Comments Source SYSTOLIC BLOOD PRESSURE 128 11/19/2023 14:57:21 [facility] DIASTOLIC BLOOD PRESSURE 81 11/19/2023 14:57:21 [facility] PULSE OXIMETRY 96 11/19/2023 14:57:21 S [facility] WEIGHT 197 11/19/2023 14:57:21 [facility] BMI 26 kg/m2 11/19/2023 14:57:21 [facility] PAIN 0 11/19/2023 14:57:21 [facility] TEMPERATURE 98.1 11/19/2023 14:57:21 [facility] PULSE 64 11/19/2023 14:57:21 [facility] RESPIRATION 18 11/19/2023 14:57:21 [facility] Encounters Combined list of: 1) Encounters from Department of [facility] Affairs facilities going backup to the last 18 months, not all [place] inpatient encounters are included; 2) Encounters from the Department of [facility] facilities going backup to 280 months. Location Location Details Encounter Type Encounter Number Reason For Visit Attending Provider ADM Date DC Date Status Disposition Source [facility] Outpatient Encounter [id number] 01/23 [facility] Outpatient Encounter [id number] 02/27 [facility] Outpatient Encounter [id number] 09/30 [facility] Outpatient Encounter [id number] 11/18 [facility] FEE [id number] Diagnos is: ICD-10- CM I25.10 Athscl heart disease of [place] coronar y artery w/o ang pctrs ICE,MARGUERITE E 11/18 [facility] Outpatient Encounter [id number] 11/18 [facility] OFFICE O/P EST LOW 20 MIN [id number] Diagnos is: ICD-10- CM I25.10 Athscl heart disease of [place] coronar y artery w/o ang pctrs MARGUERITE PAEZ E 11/18 [facility] IMG RTA DETCJ/MNTR DS STAFF [id number] Diagnos is: ICD-10- CM Z13.5 Encount er for screeni ng for eye and ear disorde rs TAHIR JOSHUA 11/18 [facility] Outpatient Encounter [id number] Diagnos is: ICD-10- CM Z13.5 Encount er for screeni ng for eye and ear disorde rs CHEYENNE DOUGLASS 11/20 [facility] Outpatient Encounter [id number] BASIM GRIER MMAD T 11/30 [facility] Social History Combined list of available smoking, tobacco, and other social history from Department of Defense and Veterans Affairs facilities. Social History Type Response Date Comment [facility] e Tobacco smoking status VTIS VA-TOBACCO NEVER USED 11/19/2023 [facility] History of tobacco use [place]-TOBACCO FORMER USER 08/02/2022 [facility] History of tobacco use QUIT TOBACCO >7 YEARS AGO 06/20/2006 [facility] History of tobacco use CURRENT NON-TOBACCO USER-HX OF USE 08/16/2005 [facility] History of tobacco use CURRENT NON-TOBACCO USER-HX OF USE 04/06/2004 [facility] Plan of Care List of future care activities from Department of Veterans Affairs facilities. Additional future care activities may be listed in the Assessment and Plan section. Date/Time Care Activity Care Activity Detail Steph rosenberg 09/28/2024 AMBULATORY - MEDICINE AMBULATORY - [facility]
--- OUTSIDE RECORDS SUMMARY | 2024-08-13 07:38 | XMS_ITS | Clinical Summary ---
Author Organization [facility] Address [facility] [place] [address] Care Team Providers Care Switchboard Operator Name Role Phone Nikky Reyes MD [...] Hyperlipidemia 02/11/2023 Hypothyroidism 02/11/2023 Ischemic dilated cardiomyopathy ([facility] ) 02/11/2023 Nausea 02/11/2023 Nonrheumatic mitral (valve) insufficiency 2022 Nonrheumatic tricuspid (valve) insufficiency Unspecified diastolic (conge stive) heart failure ([facility]) 02/11/2023 Immunizations Immunization Administration Dates Next Due Influenza (Generic) 01/15/2013,02/03/2012 [...] on file Legal Sex Male 1:18 PM COMMUNICATIONS TOWER CLIMBER Gender Identity Not on file Sexual Orientation Not on file Last Filed Vital Signs Vital Sign Reading Time Taken Comments Blood Pressure 103/70 04/10/2024 12:28 PM COMMUNICATIONS TOWER CLIMBER Pulse 90 04/10/2024 12:28 PM COMMUNICATIONS TOWER CLIMBER Temperature 37.5 C (99.5 F) 04/10/2024 12:28 PM COMMUNICATIONS TOWER CLIMBER Respiratory Rate 16 04/10/2024 12:28 PM COMMUNICATIONS TOWER CLIMBER Oxygen Saturation 100% 04/10/2024 12:28 PM COMMUNICATIONS TOWER CLIMBER Inhaled Oxygen Concentration - - Weight 87.1 kg (192 lb) 04/10/2024 12:28 PM COMMUNICATIONS TOWER CLIMBER Height 185.4 cm (6' 1 ) 04/10/2024 12:28 PM COMMUNICATIONS TOWER CLIMBER Body Mass Index 25.33 04/10/2024 12:28 PM COMMUNICATIONS TOWER CLIMBER Plan of Treatment Health Maintenance Due Date Last Done Comments ASCVD LDL 1950 Hepatitis C 02/01/1966 Pneumococcal Vaccine: 50+ Ye ars (1 of 2 - PCV) 02/01/1967 Zoster Vaccines (1 of 2) 02/01/1998 Annual Medicare Wellness Visit 02/01/2013 RSV Immunization or 60+ Years (1 - 1-dose 75+ series) 02/01/2023 COVID-19 Vaccine (1 - 2023-2 5 season) 2023 DTaP, Tdap and Td Vaccines ( 2 - Td or Tdap) 11/22/2025 11/23/2015 Meningococcal B Vaccine Aged Out No l onger eligible based on patient's age to complete this topic Meningococcal Vaccine Aged Out No galileo yudi eligible based on patient's age to complete this topic RSV Immunizations Under 20 Months Aged Out No longer eligible based on patient's age to complete this topic Medical Devices Explanted Type Area Printer Technician Device Identifier Shelf Expiration Date Model / Serial / Lot Stent Ureteral [place] Sci Contour Vl 6fr X 22-30cm - [id number] Implanted:Qty: 1 on 12/05/2023 by Kwaku Martin MD at [facility] Explanted:Qty: 1 on 04/08/2024 by Adelso Quiñones MD at [facility] Stent Right: Ureter [employer] (Formerly [employer]) RAJ 07/17/2026 [id number] / / [id number] Insurance MEDICARE [facility] Care Teams Switchboard Operator Relationship Specialty Start Date End Date Nikky Reyes MD [address] [place] [address] PCP - General FAMILY PRACTICE 05/04/21
--- OUTSIDE RECORDS SUMMARY | 2024-08-13 07:38 | XMS_ITS | Encounter Summary ---
Author Organization [facility] Address [address] [place] [address] Care Team Providers Care Sound Art Instructor Name Role Phone Nikky Reyes MD Primary Care Provider Encounter Details Date Type Department Care Team (Late st Contact Info) Description 11/27/2023 Prep for Procedure [facility] [place], [place] [id number] Kwaku Martin MD [address] [facility] [address] [place], [place] [id number] Social History Tobacco Use Types Packs/Day Years Used Date Smoking Tobacco: Former Cigarettes 2 15 S tarted: 1967 Smokeless Tobacco: Never Alcohol Use Standard Drinks/Week Comments Not Currently 0 (1 standard drink = 0.6 oz pur e alcohol) sober 43 years Sex and Gender Information Value Date Recorded Sex Assigned at Not on file Legal Sex Male 1:18 PM HEALTHCARE NETWORK PRICING CONSULTANT Gender Identity Not on file Sexual [...] 9:57 AM Narrative 11/28/2023 9:58 AM CDT [place] [id number] PROCEDURE: XR CHEST PA+LAT. 11/28/2023 8:53 AM. [...] Procedure Note Richard Chaparro MD - 11/28/[address] [address] PROCEDURE: XR CHEST PA+LAT. 11/28/2023 8:53 AM. [...] Rule Out 04/10/2024 04/10/2024 04/10/2024 1:35 PM HEALTHCARE NETWORK PRICING CONSULTANT Influenza - Seasonal 04/10/2024 04/10/2024 025 12:32 AM HEALTHCARE NETWORK PRICING CONSULTANT documented as of this encounter Care Teams Sound Art Instructor Relationship Specialty Start Date End Date Nikky Reyes MD [address] [place] [address] PCP - General FAMILY PRACTICE 05/04/21 documented as of this encounter
--- OUTSIDE RECORDS SUMMARY | 2024-08-13 07:38 | XMS_ITS | Encounter Summary ---
Author Organization [facility] Address [address] [place] [address] Care Team Providers Care Materials Assistant Name Role Phone Nikky Reyes MD Primary Care Provider Encounter Details Date Type Department Care Team (Late st Contact Info) Description 04/01/2024 Prep for Procedure [facility] [place], [place] [id number] Adelso Quiñones MD 3 [facility] [address] [place], [place] [id number] Social History Tobacco Use Types Packs/Day Years Used Date Smoking Tobacco: Former Cigarettes 2 15 S tarted: 1967 Smokeless Tobacco: Never Alcohol Use Standard Drinks/Week Comments Not Currently 0 (1 standard drink = 0.6 oz pur e alcohol) sober 43 years Sex and Gender Information Value Date Recorded Sex Assigned at Not on file Legal Sex Male 1:18 PM RUBBER OFF Gender Identity Not on file Sexual Orientation Not on file documented as of this encounter Plan of Treatment Not on file documented as of this encounter Results * (ABNORMAL) URINE BACTERIA CULTURE (04/02/2024 2:46 PM RUBBER OFF) SPEC DESCRIPTION URINE CLEAN CATCH 04/02/2024 2:47 PM RUBBER OFF [facility] SPECIAL REQUESTS NO SPECIAL REQUEST 04/02/2024 2:47 PM RUBBER OFF [facility] CULTURE RESULT >100,000 COL/ML STAPH. SPECIES NOT STAPH. AUREUS (A) 04/04/2024 8:02 AM RUBBER OFF [facility] URINE SPECIMEN OBTAINED BY CLEAN CATCH PROCEDURE / Unknown 04/02/2024 2:46 PM RUBBER OFF 04/02/2024 3:46 PM RUBBER OFF Narrative Organism Antibiotic Method Susceptibility Staph. species [...] MICROBIOLOGY - GENERAL ORDERABL ES Final Result [facility] [address] [place] [address], documented in this encounter Visit Diagnoses Diagnosis Bladder cancer (CMS/HCC HHS/HCC)- Primary Malignant neoplasm of bladder, part unspecified Hydronephrosis with ureteral stricture documented in this encounter Additional Health Concerns Infection Onset Date Last Indicated Resolved Time COVID-19 Rule Out 04/10/2024 04/10/2024 04/10/2024 1:35 PM RUBBER OFF Influenza - Seasonal 04/10/2024 04/10/2024 025 12:32 AM RUBBER OFF documented as of this encounter Care Teams Materials Assistant Relationship Specialty Start Date End Date Nikky Reyes MD [address] [place] [address] PCP - General FAMILY PRACTICE 05/04/21 documented as of this encounter
--- OUTSIDE RECORDS SUMMARY | 2024-08-13 07:38 | XMS_ITS | Encounter Summary ---
Author Organization [facility] Address [address] [place] [address] Care Team Providers Care Maintenance Custodian Name Role Phone Nikky Reyes MD Primary Care Provider Encounter Details Date Type Department Care Team (Late st Contact Info) Description 11/27/2023 Prep for Procedure [facility] [address] [place], [place] [phone] Kwaku Martin MD 3 [facility] [address] [place], [place] [phone] Social History Tobacco Use Types Packs/Day Years Used Date Smoking Tobacco: Former Cigarettes 2 15 S tarted: 1967 Smokeless Tobacco: Never Alcohol Use Standard Drinks/Week Comments Not Currently 0 (1 standard drink = 0.6 oz pur e alcohol) sober 43 years Sex and Gender Information Value Date Recorded Sex Assigned at Not on file Legal Sex Male 1:18 PM HOT FRAME TENDER Gender Identity Not on file Sexual Orientation Not on file documented as of this encounter Plan of Treatment Not on file documented as of this encounter Results * (ABNORMAL) URINE BACTERIA CULTURE (11/28/2023 8:45 AM CDT) SPEC DESCRIPTION URINE CLEAN CATCH 11/28/2023 8:53 AM CDT [facility] SPECIAL REQUESTS NO SPECIAL REQUEST 11/28/2023 8:53 AM CDT [facility] CULTURE RESULT >100,000 COL/ML STAPH. SPECIES NOT STAPH. AUREUS (A) 11/30/2023 9:35 AM CDT [facility] URINE SPECIMEN OBTAINED BY CLEAN CATCH PROCEDURE / Unknown 11/28/2023 8:45 AM CDT 11/28/2023 8:56 AM CDT Narrative Organism Antibiotic Method Susceptibility Staph. species not staph. aureus NITROFURANTOIN NIRMALA (V ITEK) <=16: Sensitive Staph. species not staph. aureus LEVOFLOXACIN NIRMALA (VIT EK) 4: Resistant Staph. species not staph. aureus OXACILLIN NIRMALA (VIT EK) >=4: Resistant Staph. species not staph. aureus TRIMETH-SULFAMETH. IN C (VITEK) 20: Sensitive Staph. species not staph. aureus TETRACYCLINE NIRMALA (VIT EK) >=16: Resistant Staph. species not staph. aureus VANCOMYCIN NIRMALA (VIT EK) 2: Sensitive Kwaku Martin MD MICROBIOLOGY - GENERAL ORDERABLES Final Result [facility] [address] [place] [id number], * (ABNORMAL) URINALYSIS (11/28/2023 8:45 AM CDT) SPECIMEN TYPE URINE CLEAN CATCH 11/28/2023 8:53 AM CDT [facility] COLOR (U) YELLOW 11/28/2023 9:11 AM CDT [facility] TRANSPARENCY TURBID 11/28/2023 9:11 AM CDT [facility] SPECIFIC GRAVITY (U) 1.014 1.001 - 1.030 11/28/2023 9:11 AM CDT [facility] U PH 5.5 5.0 - 9.0 11/28/2023 9:11 AM CDT [facility] LEUKOCYTES (U) 500(A) NEGATIVE 11/28/2023 9:11 AM CDT [facility] NITRITES 1+(A) NEGATIVE 11/28/2023 9:11 AM T [facility] PROTEIN RANDOM (U) 70(H) <30 MG/DL 11/28/2023 9:11 AM CDT [facility] GLUCOSE (U) NORMAL NORMAL MG/DL 11/28/2023 9:11 AM CDT [facility] KETONES MG/DL (U) NEGATIVE NEGATIVE MG/DL 11/28/2023 9:11 AM CDT [facility] UROBILINOGEN NORMAL NORMAL MG/DL 11/28/2023 9:11 AM T [facility] BILIRUBIN (U) NEGATIVE NEGATIVE MG/DL 11/28/2023 9:11 AM CDT [facility] BLOOD (U) 3+(A) NEGATIVE 11/28/2023 9:11 AM T [facility] MUCUS RARE /LPF 11/28/2023 9:11 AM T [facility] WBC/HPF >100(H) <6 /HPF 11/28/2023 9:11 AM T [facility] WBC CLUMPS PRESENT 11/28/2023 9:11 AM T [facility] RBC/HPF 21(H) <6 /HPF 11/28/2023 9:11 AM T [facility] BACTERIA (U) MODERATE(A) NONE /HPF 11/28/2023 9:11 AM T [facility] URINE SPECIMEN OBTAINED BY CLEAN CATCH PROCEDURE / Unknown 11/28/2023 8:45 AM CDT us Kwaku Martin MD URINE ORDERABLES Final Result [facility] [address] [place] [address], [place] [phone] * (ABNORMAL) BASIC METABOLIC PANEL (11/28/2023 8:43 AM CDT) [facility] GLUCOSE 110(H) 70 - 99 MG/DL 11/28/2023 10:22 AM CDT [facility] BUN 12 7 - 18 MG/DL 11/28/2023 10:22 AM CDT [facility] CREATININE S/P/B 1.19 0.7 - 1.3 MG/DL 11/28/2023 10:22 AM CDT [facility] SODIUM S/P/B 138 136 - 145 MMOL/L 11/28/2023 10:22 AM CDT [facility] POTASSIUM S/P/B 3.5 3.5 - 5.1 MMOL/L 11/28/2023 10:22 AM T [facility] CHLORIDE S/P/B 106 97 - 115 MMOL/L 11/28/2023 10:22 AM T [facility] CO2 27.4 21 - 32 MMOL/L 11/28/2023 10:22 AM T [facility] CALCIUM S/P/B 9.2 8.5 - 10.1 MG/DL 11/28/2023 10:22 AM T [facility] ANION GAP 4.6 2 - 10 MMOL/L 11/28/2023 10:22 AM T [facility] BUN CREATININE RATIO 10.1 6 - 26 11/28/2023 10:22 AM T [facility] GFR ESTIMATE 64(L) >90 ML/MIN/1.7 3 M2 11/28/2023 10:22 AM T [facility] Comment: NOTE: eGFR is not [...] Kwaku Martin MD LABORATORY Final R esult [facility] [address] [place] [address], * (ABNORMAL) CBC W/DIFF AUTOMATED (11/28/2023 8:43 AM CDT) WBC 7.86 4.5 - 11.0 x10'3/uL 11/28/2023 9:12 AM CDT [facility] RBC 4.08(L) 4.70 - 6.10 x10'6/uL 11/28/2023 9:12 AM CDT [facility] HGB 13.1(L) 14.0 - 18.0 G/DL 11/28/2023 9:12 AM CDT [facility] HCT 39.3(L) 43.0 - 54.0 % 11/28/2023 9:12 AM CDT [facility] MCV 96.3(H) 80.0 - 94.0 FL 11/28/2023 9:12 AM CDT [facility] MCH 32.1(H) 27.0 - 31.0 PG 11/28/2023 9:12 AM CDT [facility] MCHC 33.3 32.0 - 36.0 G/DL 11/28/2023 9:12 AM CDT [facility] RDW 14.4 11.5 - 14.5 % 11/28/2023 9:12 AM CDT [facility] PLT 236 130 - 400 x10'3/uL 11/28/2023 9:12 AM CDT [facility] MPV 9.3 9.3 - 12.2 FL 11/28/2023 9:12 AM CDT [facility] DIFFERENTIAL TYPE AUTOMATED DIFFERENTIAL 11/28/2023 9:12 AM CDT [facility] NEUTROPHILS % 67.3 % 11/28/2023 9:12 AM CDT [facility] LYMPHOCYTES % 17.9 % 11/28/2023 9:12 AM CDT [facility] MONOCYTES % 11.6 % 11/28/2023 9:12 AM CDT [facility] EOSINOPHILS 2.2 % 11/28/2023 9:12 AM CDT [facility] BASOPHILS 0.6 % 11/28/2023 9:12 AM CDT [facility] IMMATURE GRANS % 0.4 % 11/28/19 9:12 AM CDT [facility] ABS. NEUTROPHILS 5.29 1.80 - 7.70 x10'3/uL 11/28/2023 9:12 AM CDT [facility] ABS. LYMPHOCYTES 1.41 1.00 - 4.80 x10'3/uL 11/28/2023 9:12 AM CDT [facility] ABS. MONOCYTES 0.91(H) 0.30 - 0.82 x10'3/uL 11/28/2023 9:12 AM CDT [facility] ABS. EOSINOPHILS 0.17 0.04 - 0.54 x10'3/uL 11/28/2023 9:12 AM CDT [facility] ABS. BASOPHILS 0.05 0.01 - 0.08 x10'3/uL 11/28/2023 9:12 AM CDT [facility] ABS. IMMATURE GRANULOCYTES 0.03 0.00 - 0.49 x10'3/uL 11/28/2023 9:12 AM CDT [facility] 11/28/2023 8:43 AM CDT Kwaku Martin MD LABORATORY Final R esult [facility] [address] [place] [address], documented in this encounter Visit Diagnoses Diagnosis Gross hematuria- Primary Bladder tumor Neoplasm of unspecified nature of bladder documented in this encounter Additional Health Concerns Infection Onset Date Last Indicated Resolved Time COVID-19 Rule Out 04/10/2024 04/10/2024 04/10/2024 1:35 PM HOT FRAME TENDER Influenza - Seasonal 04/10/2024 04/10/2024 025 12:32 AM HOT FRAME TENDER documented as of this encounter Care Teams Maintenance Custodian Relationship Specialty Start Date End Date Nikky Reyes MD [address] [place] [address] PCP - General FAMILY PRACTICE 05/04/21 documented as of this encounter
--- OUTSIDE RECORDS SUMMARY | 2024-08-13 07:39 | XMS_ITS | Encounter Summary ---
Author Organization [employer] Address [address] [facility] [address] Care Team Providers Care Driller'S Assistant Name Role Phone Rosanne Santana MD Primary Care Provider [phone] Encounter Details Date Type Department Care Team (Latest Contact Info) Description 02/13/2006 Outpatient Historical [facility] Rosanne Santana MD [address] [facility] [address] [place] [address] Cor Athrscl-Uns Vessel (Primary Dx) Social History Tobacco Use Types Packs/Day Years Used Date Smoking Tobacco: Never Assessed Sex and Gender Information Value Date Recorded Sex Assigned at Not on file Legal Sex Male 4:23 AM VINER OPERATOR Gender Identity Not on file Sexual Orientation Not on file documented as of this encounter Plan of Treatment Not on file documented as of this encounter Visit Diagnoses Diagnosis Coronary atherosclerosis of unspecified type of vessel, [place] or graft- Primary documented in this encounter Care Teams Driller'S Assistant Relationship Specialty Start Date End Date Rosanne Santana MD [address] [place] [address] PCP - General 10/24/03 documented as of this encounter
--- OUTSIDE RECORDS SUMMARY | 2024-08-13 07:39 | XMS_ITS | Encounter Summary ---
Author Organization [employer] Address [address] [place] [address] Care Team Providers Care Home Health Billing Specialist Name Role Phone Rosanne Santana MD Primary Care Provider [phone] Encounter Details Date Type Department Care Team (Latest Contact Info) Description 11/06/2004 Outpatient Historical [facility] Rosanne Santana MD [address] [place] [address] PALPITATIONS (Primary Dx) Social History Tobacco Use Types Packs/Day Years Used Date Smoking Tobacco: Never Assessed Sex and Gender Information Value Date Recorded Sex Assigned at Not on file Legal Sex Male 4:23 AM TECHNOLOGY TEACHER Gender Identity Not on file Sexual Orientation Not on file documented as of this encounter Plan of Treatment Not on file documented as of this encounter Visit Diagnoses Diagnosis Palpitations- Primary documented in this encounter Care Teams Home Health Billing Specialist Relationship Specialty Start Date End Date Rosanne Santana MD [address] [place] [address] PCP - General 10/24/03 documented as of this encounter
--- OUTSIDE RECORDS SUMMARY | 2024-08-13 07:39 | XMS_ITS | Clinical Summary ---
Author Organization [facility] Address [address] [place] [address] Phone Care Team Providers Care Cutter Grinder Name Role Phone Rosanne Santana MD Primary Care Provider [phone] Social History Tobacco Use Types Packs/Day Years Used Date Smoking Tobacco: Never Assessed Sex and Gender Information Value Date Recorded Sex Assigned at Not on file Legal Sex Male 4:23 AM POLICE DETECTIVE Gender Identity Not on file Sexual Orientation Not on file Plan of Treatment Health Maintenance Due Date Last Done Comments DTAP/TDAP/TD VACCINES (1 - Tdap) 02/01/1967 PNEUMOCOCCAL VACCINE 50+ YEARS (1 of 1 - PCV) 02/01/19 98 ZOSTER VACCINE (1 of 2) 02/01/1998 RSV VACCINE (60+ or ) (1 - 1-dose 75+ series) 02/01/2023 INFLUENZA VACCINE (#1) 2023 Insurance [facility] BLUE ACCESS/TRUE BLUE PPO Care Teams Cutter Grinder Relationship Specialty Start Date End Date Rosanne Santana MD [address] [address] [place] [address] PCP - General 10/24/03
--- OUTSIDE RECORDS SUMMARY | 2024-08-13 07:39 | XMS_ITS | Encounter Summary ---
Author Organization [facility] Address [address] [place] [address] Care Team Providers Care Transmission Technician Name Role Phone Rosanne Santana MD Primary Care Provider [phone] Encounter Details Date Type Department Care Team (Latest Contact Info) Description 09/24/2007 Outpatient Historical [facility] Rosanne Santana MD [address] [place] [address] Coronary Atherosclerosis of [place] Coronary Artery Social History Tobacco Use Types Packs/Day Years Used Date Smoking Tobacco: Never Assessed Sex and Gender Information Value Date Recorded Sex Assigned at Not on file Legal Sex Male 4:23 AM AGRICULTURAL COMMODITIES GRADER Gender Identity Not on file Sexual [...] INTERFACE SYSTEM - 09/24/2007 6:25 PM CDT [facility] [address] [place], [place] [address] Admit Date: 09/24/2007 MITCHELL RODRIGUEZ Sex: M Admit Prov: ROSANNE SANTANA Date: 1950 Primary Care Prov: CMRN: [id number] [id number] [facility] Ordering Prov: N/A Accession Number: [id number] Interpretation Date of Procedure: 09/24/2007 Procedure Type: [...] Procedure Note Mitchell Wright MD - 09/30/2007 [facility] [address] [place], [place] [address] Admit Date: 09/24/2007 MITCHELL RODRIGUEZ Sex: M Admit Prov: ROSANNE SANTANA Date: 1950 Primary Care Prov: CMRN: [id number] Room: [facility] SSN: [id number] IMAGING SERVICES Ordering Prov: N/A Interpretation Date [...] encounter Visit Diagnoses Diagnosis Coronary atherosclerosis of [place] coronary artery documented in this encounter Care Teams Transmission Technician Relationship Specialty Start Date End Date Rosanne Santana MD [address] [place] [address] PCP - General 10/24/03 documented as of this encounter
--- OUTSIDE RECORDS SUMMARY | 2024-08-13 07:39 | XMS_ITS | Encounter Summary ---
Author Organization [facility] Address [address] [place] [address] Care Team Providers Care Sales Floor Team Leader Name Role Phone Rosanne Santana MD Primary Care Provider [phone] Encounter Details Date Type Department Care Team (Late st Contact Info) Description 11/08/[address] [facility] [address] [place] [id number] Adelso Weathers MD NO ADDRESS ON FILE Social History Tobacco Use Types Packs/Day Years Used Date Smoking Tobacco: Never Assessed Sex and Gender Information Value Date Recorded Sex Assigned at Not on file Legal Sex Male 4:23 AM CENTRAL SUPPLY CLERK Gender Identity Not on file Sexual Orientation Not on file documented as of this encounter Plan of Treatment Not on file documented as of this encounter Visit Diagnoses Not on filedocumented in this encounter Care Teams Sales Floor Team Leader Relationship Specialty Start Date End Date Rosanne Santana MD [address] [place] [address] PCP - General 10/24/03 documented as of this encounter
--- OUTSIDE RECORDS SUMMARY | 2024-08-13 07:39 | XMS_ITS | Encounter Summary ---
Author Organization [facility] Address [address] [place] [id number] Care Team Providers Care E Business Specialist Name Role Phone Rosanne Santana MD Primary Care Provider [phone] Encounter Details Date Type Department Care Team (Latest Contact Info) Description 12/03/2001 Outpatient Historical [facility] Rosanne Sanchez MD [address] [place] [id number] CORON ATHEROSCL [place] CORON VESSEL (Primary Dx) Social History Tobacco Use Types Packs/Day Years Used Date Smoking Tobacco: Never Assessed Sex and Gender Information Value Date Recorded Sex Assigned at Not on file Legal Sex Male 4:23 AM SALES ADMINISTRATOR Gender Identity Not on file Sexual Orientation Not on file documented as of this encounter Plan of Treatment Not on file documented as of this encounter Visit Diagnoses Diagnosis Coronary atherosclerosis of [place] coronary artery- Primary documented in this encounter Care Teams E Business Specialist Relationship Specialty Start Date End Date Rosanne Santana MD [address] [place] [id number] PCP - General 10/24/03 documented as of this encounter
--- OUTSIDE RECORDS SUMMARY | 2024-08-13 07:39 | XMS_ITS | Clinical Summary ---
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 Phone Nikky Reyes MD Primary Care Provider Venkat Vivar DO Unavailable [phone] Kwaku Martin MD Unavailable [phone] Richard Hargrove MD Unavailable [phone] Adelso Quiñones MD Unavailable [phone] Allergies No known active allergies Medications [...] therapy 04/08/2024 Chronic diastolic congestive heart failure 01/05 Aneurysm of right common iliac artery 01/06/2024 Malignant neoplasm of urinary bladder 01/05/2024 Cancer Staging:Clinical stage from 12/05/2023:Stage II(cT2, cN0, cM0) - Signed by Chayo Card MD on 01/22/2024 Encounter for person encountering health service s 01/05/2024 Encounters Date Type Department Care Team Description 06/14/2024 10:45 AM CDT Office Visit [facility] [address] [place] [address] [phone] Venkat Vivar DO Malignant neoplasm of urinary bladder, unspecified site (HCC) (Primary Dx) 06/14/2024 10:15 AM CDT Lab [facility] at [address] [address] Malignant neoplasm of urinary bladder, unspecified site (HCC) 06/09/2024 Results Follow-Up [facility] [address] [place] [address] [phone] Laura Arias RN 06/07/2024 8:37 AM CDT - 06/07/2024 11:59 PM CDT Hospital Encounter [facility] [address] [address] Malignant neoplasm of urinary bladder, unspecified site (HCC) Discharge Disposition: Discharge to home or self care from Last 3 Months Surgical History Surgery Date Site/Laterality Comments CHOLECYSTECTOMY CARDIAC SURGERY CYSTOSCOPY W/ URETERAL STENT PLACEMENT Medical History Medical History Date Comments Cardiomyopathy (HCC) Coronary artery disease Hyperlipidemia Hypothyroidism BPH (benign prostatic hyperplasia) Bladder cancer (HCC) Hypertension Family History Medical History Relation Name Comments [...] on file Legal 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 Gender Identity Not on file Sexual Orientation Not on file Occupation Industry Job Start Date Job End Date Retired Not on file Not on file Not on file Obstetrics History Last Filed Vital Signs Vital Sign Reading Time Taken Comments Blood Pressure 101/60 06/14/2024 10:06 AM CDT Pulse 71 06/14/2024 10:06 AM CDT Temperature 36.6 C (97.8 F) 06/14/2024 10:06 AM CDT Respiratory Rate 16 06/14/2024 10:0 6 AM CDT Oxygen Saturation 98% 06/14/2024 10: 06 AM CDT Inhaled Oxygen Concentration - - Weight 91.1 kg (200 lb 12.8 oz) 025 10:06 AM CDT Height 185.4 cm (6' 1 ) 02/25/2024 12:1 3 AM MINES INSPECTOR Body Mass Index 26.49 02/25/2024 12:13 AM MINES INSPECTOR Plan of Treatment Health Maintenance Due Date Last Done Comments Depression Screening 1950 Hepatitis C Screening 1950 Hepatitis B Screening 02/01/1966 Zoster Vaccine (1 of 2) 02/01/1967 Well Visit 65+ 02/01/2013 Influenza Vaccine (Season Ended) 2024 01/31/2020, 03/09/2019, 02/03/2018, Additional history exists Fall Risk Assessment 01/21/2025 01/22/2024 DTaP/Tdap/Td Vaccine (2 - Td or Tdap) 11/22/2025 11/23/2015 Pneumococcal vaccine 65+ Completed 02/13/2023 Procedures Procedure Name Priority Date/Time Associated Diagnosis Comments EGFR Routine 06/14/2024 9:54 AM CDT Malignant neoplasm of urinary bladder, unspecified site (HCC) DIFFERENTIAL AUTO Routine 06/14/2024 9:5 4 AM CDT Malignant neoplasm of urinary bladder, unspecified site (HCC) CBC WITH AUTO DIFFERENTIAL Routine 06/14/2024 9:54 AM CDT Malignant neoplasm of urinary bladder, unspecified site (HCC) COMPREHENSIVE METABOLIC PANEL Routine 06/14/2024 9:54 AM CDT Malignant neoplasm of urinary bladder, unspecified site (HCC) CT CHEST ABDOMEN PELVIS W CONTRAST Schedule Routine, Read Routine (OP Routine) 06/07/2024 9:05 AM CDT Malignant neoplasm of urinary bladder, unspecified site (HCC) POCT CREATININE FOR CONTRAST EVALUATION Routine 06/07/2024 9:01 AM CDT from Last 3 Months Results * eGFR (06/14/2024 9:54 AM CDT) eGFR >90 >=60 mL/min/1. 73 m2 Comment: [...] last reviewed 2021. Testing performed by: [address] [address] Blood 06/14/2024 9:54 AM CDT 06/14/2024 9:56 AM CDT Venkat Vivar DO LAB BLOOD ORDERABLES Final R esult [facility] Department [place] [address] * Differential, auto (06/14/2024 9:54 AM CDT) Neutrophil abs 3.0 1.5 - 6.5 K/cumm Comment:Testing performed by : [address] [address] Imm gran abs 0.0 0.0 - 0.1 K/cumm JAIME Comment:Testing performed by : [address] [address] Lymphocyte abs 1.0 0.8 - 3.3 K/cumm JAIME Comment:Testing performed by : [address] [address] Monocyte abs 0.6 0.2 - 0.8 K/cumm JAIME Comment:Testing performed by : [address] [address] Eosinophil abs 0.1 0.0 - 0.5 K/cumm JAIME Comment:Testing performed by : [address] [address] Basophil abs 0.0 0.0 - 0.1 K/cumm JAIME Comment:Testing performed by : [address] [address] Neutrophil pct 62.3 % JAIME Comment: Interpretive Data Percent cell count reference ranges are not reported, since discordance with absolute values may lead to misinterpretation of CBC data. Current Interpretive Data was last revised on 2017. Testing performed by: [address] [address] Imm gran pct 0.2 % JAIME Comment: Interpretive Data Percent cell count reference ranges are not reported, since discordance with absolute values may lead to misinterpretation of CBC data. Current Interpretive Data was last revised on 2017. Testing performed by: [address] [address] Lymphocyte pct 21.2 % JAIME Comment: Interpretive Data Percent cell count reference ranges are not reported, since discordance with absolute values may lead to misinterpretation of CBC data. Current Interpretive Data was last revised on 2017. Testing performed by: [address] [address] Monocyte pct 13.2 % JAIME Comment: Interpretive Data Percent cell count reference ranges are not reported, since discordance with absolute values may lead to misinterpretation of CBC data. Current Interpretive Data was last revised on 2017. Testing performed by: [address] [address] Eosinophil pct 2.5 % JAIME Comment: Interpretive Data Percent cell count reference ranges are not reported, since discordance with absolute values may lead to misinterpretation of CBC data. Current Interpretive Data was last revised on 2017. Testing performed by: [address] [address] Basophil pct 0.6 % [facility] Comment: Interpretive Data Percent cell count reference ranges are not reported, since discordance with absolute values may lead to misinterpretation of CBC data. Current Interpretive Data was last revised on 2017. Testing performed by: [address] [address] Blood 06/14/2024 9:54 AM CDT 06/14/2024 9:56 AM CDT us Venkat Vivar DO LAB BLOOD ORDERABLES Final R esult JAIME [address] [facility] Department [place] [address] * (ABNORMAL) CBC with auto differential (06/14/2024 9:54 AM CDT) [facility] WBC 4.9 3.8 - 9.9 K/cumm Comment:Testing performed by : [address] [address] Hgb 12.9(L) 13.0 - 17.5 g/dL JAIME Comment:Testing performed by : [address] [address] Hct 37.9(L) 38.9 - 50.3 % JAIME Comment:Testing performed by : [address] [address] Plt 168 150 - 400 K/cumm JAIME Comment:Testing performed by : [address] [address] MPV 9.1 9.1 - 12.3 fL JAIME Comment:Testing performed by : [address] [address] RBC 4.06(L) 4.30 - 5.80 M/cumm JAIME Comment:Testing performed by : [address] [address] MCV 93.3 81.3 - 96.4 fL JAIME Comment:Testing performed by : [address] [address] MCH 31.8 27.1 - 33.3 pg JAIME PINEDA Comment:Testing performed by : [address] [address] MCHC 34.0 32.3 - 35.7 g/dL JAIME Comment:Testing performed by : [address] [address] RDW CV 14.0 11.1 - 14.9 % JAIME [facility]A Comment:Testing performed by : [address] [address] RDW SD 47.6 35.7 - 48.1 fL JAIME [facility]A Comment:Testing performed by : [address] [address] NRBC abs 0.00 0.00 - 0.01 K/cumm JAIME PIN[place]A Comment:Testing performed by : [address] [address] Blood 06/14/2024 9:54 AM CDT 06/14/2024 9:56 AM CDT Venkat Vivar DO LAB BLOOD ORDERABLES Final R esult JAIME [address] [facility] Department of Laboratories [place], [place] [id number] * Comprehensive metabolic panel (06/14/2024 9:54 AM CDT) Sodium 138 135 - 145 mmol/L Comment:Testing performed by : [address] [address] Potassium, pl 4.5 3.3 - 4.9 mmol/L JAIME PINEDA Comment:Testing performed by : [address] [address] Chloride 105 97 - 110 mmol/L JAIME Comment:Testing performed by : [address] [address] CO2 27 22 - 32 mmol/L JAIME Comment:Testing performed by : [address] [address] Anion gap 6 2 - 15 mmol/L JAIME PINEDA Comment:Testing performed by : [address] [address] BUN 13 6 - 25 mg/dL JAIME Comment:Testing performed by : [address] [address] Creatinine 0.80 0.80 - 1.30 mg/dL JAIME PINEDA Comment:Testing performed by : [address] [address] Glucose 117 70 - 199 mg/dL JAIME Comment: Interpretive [...] last revised 2022. Testing performed by: [address] [address] Calcium 9.2 8.5 - 10.3 mg/dL JAIME Comment:Testing performed by : [address] [address] Bilirubin, total 0.4 0.1 - 1.2 mg/dL JAIME Comment:Testing performed by : [address] [address] Protein, pl 7.2 6.5 - 8.5 g/dL JAIME Comment:Testing performed by : [address] [address] Albumin 4.1 3.5 - 5.0 g/dL JAIME Comment:Testing performed by : [address] [address] Alk phos 73 40 - 130 Units/L JAIME Comment:Testing performed by : [address] [address] ALT 18 7 - 55 Units/L JAIME Comment:Testing performed by : [address] [address] AST 16 10 - 50 Units/L JAIME Comment:Testing performed by : [address] [address] Blood 06/14/2024 9:54 AM CDT 06/14/2024 9:56 AM CDT us Venkat AmishMaury Vivar DO LAB BLOOD ORDERABLES Final R esult JAIME [address] [facility] Department [place] [address] * CT Chest Abdomen Pelvis W Contrast (06/07/2024 9:05 AM CDT) Anatomical Region Laterality Modality Body N/A Computed Tomogra phy 06/08/2024 4:00 PM CDT Narrative 06/08/2024 4:12 PM CDT EXAM DESCRIPTION: CT CHEST ABDOMEN PELVIS W CONTRAST REASON FOR STUDY: restaging of bladder cancer Dx with bladder cancer in December. No complaints. Hx of kisha, bladder surgery. TECHNIQUE: CT scan of the chest, abdomen, and pelvis performed with intravenous and without oral contrast using helical scanning technique with dynamic intravenous contrast injection. Reconstructed coronal and sagittal MPR images reviewed. All images stored on PACS. Automated exposure control was used as a dose optimization technique for this examination. CONTRAST TYPE/DOSE: 100mL of IOVERSOL 350 MG IODINE/ML INTRAVENOUS SYRINGE injected via intravenous COMPARISON: 02/25/2024 FINDINGS: CHEST LUNGS: There is mild biapical pleural thickening and scarring. There is no definite evidence of a pneumothorax. The central airways are grossly patent. There is scattered mild subsegmental atelectasis and scarring, which is most significant in the lung bases. There is no definite evidence of a focal consolidation or pleural effusion. There are stable calcifications in the left lung base abutting the left hemidiaphragm with mild associated nodular scarring and atelectasis. There are scattered small pulmonary nodules noted, which are overall similar to prior CT dated 04/07/2010, and therefore likely benign, and no follow-up imaging is recommended. For example, there is a stable subpleural 0.4 cm pulmonary nodule in the anterior right upper lobe (axial image 15). There is a stable subpleural 0.4 cm pulmonary nodule in the posterior right upper lobe (axial image 17). There is a stable 0.4 cm right lower lobe pulmonary nodule abutting the right major fissure (axial image 66). MEDIASTINUM/RUBEN: The heart size is stable. There is no definite evidence of pericardial effusion. There are atherosclerotic changes of the aorta and coronary vessels. There is no definite evidence of mediastinal, hilar, or axillary lymphadenopathy. There are scattered subcentimeter mediastinal lymph nodes noted with the largest measuring 0.7 cm in the precarinal region (axial image 46). There are scattered prominent subcentimeter hilar lymph nodes noted bilaterally with the largest measuring 0.7 cm on the right (axial image 51) and 0.7 cm on the left (axial image 56). CHEST WALL: No masses. No subcutaneous air. HARDWARE/LINES/TUBES: None. ABDOMEN/PELVIS LIVER: The liver is grossly stable in size and contour. There are a couple of cysts noted in the liver with largest measuring 1.7 cm in the lateral right hepatic lobe, which do not require follow-up imaging. There are few additional too small to characterize hypoattenuating lesions in the liver, which do not require follow-up imaging. The portal veins are grossly patent. GALLBLADDER: Surgically absent. BILE DUCTS: No intrahepatic or extrahepatic ductal dilatation. SPLEEN: There is mild splenomegaly measuring 13.5 cm in the craniocaudal dimension. PANCREAS: The pancreas appears grossly stable without definite evidence of pancreatic ductal dilatation, peripancreatic inflammatory changes, or peripancreatic fluid collection. ADRENALS: The bilateral adrenal glands are grossly stable and unremarkable. KIDNEYS/URINARY TRACT: The bilateral kidneys enhance symmetrically. There is no definite evidence of a focal renal lesion. There is no definite evidence of hydronephrosis or hydroureter. There is diffuse circumferential mucosal thickening of the urinary bladder with adjacent fat stranding. The prostate gland measures 4.6 cm and contains coarse calcifications. GI: There is no definite evidence of a bowel obstruction. There are a few duodenal diverticula noted. There is an air-filled appendix identified without definite evidence of pericecal or periappendiceal inflammatory changes to suggest appendicitis. There is colonic diverticulosis with mild mucosal thickening of the rectosigmoid colon with subtle pericolonic fat stranding. There is a small fat containing periumbilical hernia. There is no definite evidence of free air or fluid in the abdomen and pelvis. There is no definite evidence of lymphadenopathy in the abdomen and pelvis. MUSCULOSKELETAL: There is mild osteopenia. There is mild dextroscoliotic curvature of the spine with degenerative changes. OTHER: No significant abnormality. IMPRESSION: No definite evidence of metastatic disease in the chest, abdomen, and pelvis. Diffuse circumferential mucosal thickening of the urinary bladder with adjacent fat stranding, which may be related to posttreatment/postradiation changes, however superimposed cystitis can not be entirely excluded. Clinical correlation with urinary analysis is recommended as clinically indicated. Scattered mild subsegmental atelectasis and scarring, which is most significant in the lung bases. No definite evidence of focal consolidation. No definite evidence of bowel obstruction. Colonic diverticulosis with mild mucosal thickening of the rectosigmoid colon with subtle pericolonic fat stranding, which may be related to posttreatment/postradiation changes or chronic diverticulosis, however mild acute uncomplicated diverticulitis and/or mild proctocolitis of infectious or inflammatory etiology can not be entirely excluded. Mild splenomegaly measuring 13.5 cm in the craniocaudal dimension. Normal appendix. THIS IS AN ELECTRONICALLY VERIFIED FINAL REPORT 06/08/2024 4:12 PM - Electronically signed by Bj Galvan D.O. PS: PS Report ID: [id number] Reading Location: [id number] Procedure Note Bj Galvan, DO - 06/08/2024 EXAM DESCRIPTION: CT CHEST ABDOMEN PELVIS W CONTRAST REASON FOR STUDY: restaging of bladder cancer Dx with bladder cancer in December. No complaints. Hx of kisha, bladder surgery. TECHNIQUE: CT scan of the chest, abdomen, and pelvis performed with intravenous and without oral contrast using helical scanning techniquewith dynamic intravenous contrast injection. Reconstructed coronal and sagittalMPR images reviewed. All images stored on PACS. Automated exposure control was used as a dose optimization technique for this examination. CONTRAST TYPE/DOSE: 100mL of IOVERSOL 350 MG IODINE/ML INTRAVENOUS SYRINGE injected via intravenous COMPARISON: 02/25/2024 FINDINGS: CHEST LUNGS: There is mild biapical pleural thickening and scarring. There isno definite evidence of a pneumothorax. The central airways are grosslypatent. There is scattered mild subsegmental atelectasis and scarring, which ismost significant in the lung bases. There is no definite evidence of a focal consolidation or pleural effusion. There are stable calcifications in the left lung base abutting the left hemidiaphragm with mild associatednodular scarring and atelectasis. There are scattered small pulmonary nodules noted, which are overallsimilar to prior CT dated 04/07/2010, and therefore likely benign, and nofollow-up imaging is recommended. For example, there is a stable subpleural 0.4 cm pulmonary nodule in the anterior right upper lobe (axial image 15). Thereis a stable subpleural 0.4 cm pulmonary nodule in the posterior right upperlobe (axial image 17). There is a stable 0.4 cm right lower lobe pulmonarynodule abutting the right major fissure (axial image 66). MEDIASTINUM/RUBEN: The heart size is stable. There is no definiteevidence of pericardial effusion. There are atherosclerotic changes of the aortaand coronary vessels. There is no definite evidence of mediastinal, hilar, or axillary lymphadenopathy. There are scattered subcentimeter mediastinal lymphnodes noted with the largest measuring 0.7 cm in the precarinal region (axialimage 46). There are scattered prominent subcentimeter hilar lymph nodes noted bilaterally with the largest measuring 0.7 cm on the right (axial image51) and 0.7 cm on the left (axial image 56). CHEST WALL: No masses. No subcutaneous air. HARDWARE/LINES/TUBES: None. ABDOMEN/PELVIS LIVER: The liver is grossly stable in size and contour. There are acouple of cysts noted in the liver with largest measuring 1.7 cm in the lateralright hepatic lobe, which do not require follow-up imaging. There are few additional too small to characterize hypoattenuating lesions in the liver, which do not require follow-up imaging. The portal veins are grosslypatent. GALLBLADDER: Surgically absent. BILE DUCTS: No intrahepatic or extrahepatic ductal dilatation. SPLEEN: There is mild splenomegaly measuring 13.5 cm in the craniocaudal dimension. PANCREAS: The pancreas appears grossly stable without definite evidenceof pancreatic ductal dilatation, peripancreatic inflammatory changes, or peripancreatic fluid collection. ADRENALS: The bilateral adrenal glands are grossly stable andunremarkable. KIDNEYS/URINARY TRACT: The bilateral kidneys enhance symmetrically.There is no definite evidence of a focal renal lesion. There is no definite evidence of hydronephrosis or hydroureter. There is diffusecircumferential mucosal thickening of the urinary bladder with adjacent fat stranding.The prostate gland measures 4.6 cm and contains coarse calcifications. GI: There is no definite evidence of a bowel obstruction. There are afew duodenal diverticula noted. There is an air-filled appendix identified without definite evidence of pericecal or periappendiceal inflammatorychanges to suggest appendicitis. There is colonic diverticulosis with mildmucosal thickening of the rectosigmoid colon with subtle pericolonic fatstranding. There is a small fat containing periumbilical hernia. There is nodefinite evidence of free air or fluid in the abdomen and pelvis. There is nodefinite evidence of lymphadenopathy in the abdomen and pelvis. MUSCULOSKELETAL: There is mild osteopenia. There is milddextroscoliotic curvature of the spine with degenerative changes. OTHER: No significant abnormality. IMPRESSION: No definite evidence of metastatic disease in the chest, abdomen, andpelvis. Diffuse circumferential mucosal thickening of the urinary bladder with adjacent fat stranding, which may be related toposttreatment/postradiation changes, however superimposed cystitis can not be entirely excluded.Clinical correlation with urinary analysis is recommended as clinicallyindicated. Scattered mild subsegmental atelectasis and scarring, which is most significant in the lung bases. No definite evidence of focalconsolidation. No definite evidence of bowel obstruction. Colonic diverticulosis with mild mucosal thickening of the rectosigmoidcolon with subtle pericolonic fat stranding, which may be related to posttreatment/postradiation changes or chronic diverticulosis, howevermild acute uncomplicated diverticulitis and/or mild proctocolitis of infectiousor inflammatory etiology can not be entirely excluded. Mild splenomegaly measuring 13.5 cm in the craniocaudal dimension. Normal appendix. THIS IS AN ELECTRONICALLY VERIFIED FINAL REPORT 06/08/2024 4:12 PM - Electronically signed by Bj Galvan D.O. PS: PS Report ID: [id number] Reading Location: [place] [address] us Venkat Vivar DO IMG CT PROCEDURES Final Resu lt * POCT creatinine for contrast evaluation (06/07/2024 9:01 AM CDT) Creatinine POC 1.00 0.80 - 1.30 mg/dL Comment:Testing performed by : [facility], [address] [place] [address]., [id number] Blood 06/07/2024 9:01 AM CDT 06/07/2024 9:01 AM CDT us Venkat Vivar DO POINT OF CARE TEST ORDERABLE S Final Result JAIME [address] [facility] Department [place] [address] from Last 3 Months Insurance MEDICARE AET SENIOR SUPPLEMENT MEDICARE [facility] MEDICARE SUPPLEMENT MEDICARE [facility] MEDICARE SUPPLEMENT Care Teams Meat Cutter Apprentice Relationship Specialty Start Date End Date Nikky Reyes MD [address] [place] [address] PCP - General Family Practice 12/15/23 Venkat Vivar DO [address] [place] [address] MEDICAL ONCOLOGY, [address] [address] Medical Oncologist/Rn Case Manager Hospice Hematology and Oncology 12/15/23 Kwaku Martin MD [address] [place] [address] MEDICAL ONCOLOGY, [address] [id number] Consulting Physician Urology 12/15/23 Richard Hargrove MD [address] [place] [id number] Radiation Oncologist Radiation Oncology 01/08/24 Adelso Qu[place] [address] [place] [id number] Surgeon Urology 01/22/24
--- OUTSIDE RECORDS SUMMARY | 2024-08-13 07:39 | XMS_ITS | Encounter Summary ---
Author Organization [facility] Address [address] [place] [address] Care Team Providers Care Risk Prevention Engineer Name Role Phone Rosanne Santana MD Primary Care Provider [phone] Encounter Details Date Type Department Care Team (Latest Contact Info) Description 05/21/2006 Outpatient Historical HIS [facility] Rosanne Sanchez MD [address] [place] [address] Coronary Atherosclerosis of [place] Coronary Artery (Primary Dx) Social History Tobacco Use Types Packs/Day Years Used Date Smoking Tobacco: Never Assessed Sex and Gender Information Value Date Recorded Sex Assigned at Not on file Legal Sex Male 4:23 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 Gender Identity Not on file Sexual Orientation Not on file documented as of this encounter Plan of Treatment Not on file documented as of this encounter Procedures Procedure Name Priority Date/Time Associated Diagnosis Comments CBC WITH DIFFERENTIAL Routine 05/21/2006 7:05 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 CBC WITH DIFFERENTIAL Routine 05/21/2006 7:05 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 PTT Routine 05/21/2006 7:05 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 PROTIME-INR Routine 05/21/2006 7:05 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 BASIC METABOLIC PANEL Routine 05/21/2006 7:05 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 documented in this encounter Results * CBC WITH DIFFERENTIAL (05/21/2006 7:05 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) NEUTROPHILS 61 45 - 70 % INTERFAC [...] 0.20 K/uL INTERFACE SYSTEM 05/21/2006 7:05 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 Rosanne Santana MD HEMATOLOGY ORDERABLES Edited Performing Organization Address City/[facility] Co de Phone Number INTERFACE SYSTEM Refer to clinic/hospital department * CBC WITH DIFFERENTIAL (05/21/2006 7:05 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) WBC 5.9 4.0 - 9.8 K/uL INTERFACE [...] 12.4 fL INTERFACE SYSTEM 05/21/2006 7:05 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 us Rosanne Santana MD HEMATOLOGY ORDERABLES Edited Performing Organization Address City/State/[facility] Co de Phone Number INTERFACE SYSTEM Refer to clinic/hospital department * PTT (05/21/2006 7:05 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) PTT 28.0 24.4 - 36.4 Seconds INTERFACE SYSTEM Comment: PTT Therapeutic Range: Heparin Level PTT (seconds) <0.10 units/mL <53 0.10 - 0.30 units/mL 53 - 67 0.30 - 0.70 units/mL* 67 - 95* 0.70 - 1.00 units/mL 95 - 116 *corresponds to therapeutic range for unfractionated heparin 05/21/2006 7:05 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 Rosanne Santana MD HEMATOLOGY ORDERABLES Edited Performing Organization Address [facility] Phone Number INTERFACE SYSTEM Refer to clinic/hospital department * PROTIME-INR (05/21/2006 7:05 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) PROTIME 14.1 12.7 - 15.1 Seconds INTERFACE SYSTEM INR 1.1 0.9 - 1.1 INTERFACE SYSTEM Comment: INR Therapeutic Range: Adult: 2.0 - 3.0 for pulmonary embolism or prophylaxis against venous thrombosis or systemic embolization. 2.0 - 3.0 for patients with tissue heart valves. 2.5 - 3.5 for patients with mechanical heart valves or post MT. Pediatric (12 years and under): 1.5 - 3.0 Although the target range in children is not well established , INR values of 1.5 - 3.0 are recommended for most patients. Higher values have been used in children with prosthetic cardiac valves and hereditary clotting disorders. (<3 days) therapeutic ranges have not been established. 05/21/2006 7:05 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 Rosanne Santana MD HEMATOLOGY ORDERABLES Edited Performing Organization Address [facility] de Phone Number INTERFACE SYSTEM Refer to clinic/hospital department * (ABNORMAL) BASIC METABOLIC PANEL (05/21/2006 7:05 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) GLUCOSE 104(H) 65 - 99 mg/dL INTERFACE [...] and non- Americans is available on the [facility] Intranet at: [email or web address] Select: Lab Policies and Procedures Select: Reference Ranges - GFR 05/21/2006 7:05 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 us Rosanne Santana MD CHEMISTRY ORDERABLES Edited INTERFACE SYSTEM Refer to clinic/hospital department documented in this encounter Visit Diagnoses Diagnosis Coronary atherosclerosis of [place] coronary artery- Primary documented in this encounter Care Teams Risk Prevention Engineer Relationship Specialty Start Date End Date Rosanne Santana MD [address] [place] [address] PCP - General 10/24/03 documented as of this encounter
--- OUTSIDE RECORDS SUMMARY | 2024-08-13 07:39 | XMS_ITS | Referral Summary ---
Author Organization [facility] [address] Address [address] [place] [address] Care Team Providers Care Ship Surveyor Name Role Phone Nikky Reyes MD Primary Care Provider Venkat Vivar DO Unavailable [phone] Kwaku Martin MD Unavailable [phone] Richard Hargrove MD Unavailable [phone] Adelso Quiñones MD Unavailable [phone] Encounters Date Type Department Care Team Description 06/14/2024 10:15 AM CDT Lab [facility] at [address] [address] Malignant neoplasm of urinary bladder, unspecified site (HCC) 06/14/2024 10:45 AM CDT Office Visit [facility] [address] [place] [address] [phone] Venkat Vivar DO Malignant neoplasm of urinary bladder, unspecified site (HCC) (Primary Dx) 06/09/2024 Results Follow-Up [facility] [address] [place] [address] [phone] Laura Arias RN 06/07/2024 8:37 AM CDT - 06/07/2024 11:59 PM CDT Hospital Encounter [facility] Building [address] [place] [address] [place] [address] Malignant neoplasm of urinary bladder, unspecified site (HCC) Discharge Disposition: Discharge to home or self care from Last 3 Months Allergies No known [...] on file Legal Sex Male 2:03 AM WHITESMITH Gender Identity Not on file Sexual Orientation [...] (6' 1 ) 02/25/2024 12:1 3 AM WHITESMITH Body Mass Index 26.49 02/25/2024 12:13 AM WHITESMITH Plan of Treatment Not on file Procedures [...] Results * eGFR (06/14/2024 9:54 AM CDT) Pathologist [facility] eGFR >90 >=60 mL/min/1. 73 m2 Comment: [...] reviewed 2021. Testing performed by: [facility], [address] [place] [address]., [address] Blood 06/14/2024 9:54 AM CDT 06/14/2024 9:56 AM CDT us Venkat Vivar DO LAB BLOOD ORDERABLES Final R esult JAIME [address] [facility] Department [place] [address] * Differential, auto (06/14/2024 9:54 AM CDT) Neutrophil abs 3.0 1.5 - 6.5 K/cumm Comment:Testing performed by : [address], [place]., [address] Imm gran abs 0.0 0.0 - 0.1 K/cumm [facility] Comment:Testing performed by : [address], [place]., [address] Lymphocyte abs 1.0 0.8 - 3.3 K/cumm [facility] Comment:Testing performed by : [address], [place]., [address] Monocyte abs 0.6 0.2 - 0.8 K/cumm [facility] Comment:Testing performed by : [address] [address] Eosinophil abs 0.1 0.0 - 0.5 K/cumm [facility] Comment:Testing performed by : [address], [place]., [address] Basophil abs 0.0 0.0 - 0.1 K/cumm [facility] Comment:Testing performed by : [address] [address] Neutrophil pct 62.3 % [facility] Comment: Interpretive Data Percent cell count reference ranges are not reported, since discordance with absolute values may lead to misinterpretation of CBC data. Current Interpretive Data was last revised on 2017. Testing performed by: [address] [address] Imm gran pct 0.2 % [facility] Comment: Interpretive Data Percent cell count reference ranges are not reported, since discordance with absolute values may lead to misinterpretation of CBC data. Current Interpretive Data was last revised on 2017. Testing performed by: [address] [address] Lymphocyte pct 21.2 % [facility] Comment: Interpretive Data Percent cell count reference ranges are not reported, since discordance with absolute values may lead to misinterpretation of CBC data. Current Interpretive Data was last revised on 2017. Testing performed by: [address] [address] Monocyte pct 13.2 % [facility] Comment: Interpretive Data Percent cell count reference ranges are not reported, since discordance with absolute values may lead to misinterpretation of CBC data. Current Interpretive Data was last revised on 2017. Testing performed by: [address] [address] Eosinophil pct 2.5 % JAIME [facility] Comment: Interpretive Data Percent cell count reference ranges are not reported, since discordance with absolute values may lead to misinterpretation of CBC data. Current Interpretive Data was last revised on 2017. Testing performed by: [address] [address] Basophil pct 0.6 % JAIME Comment: Interpretive Data Percent cell count reference ranges are not reported, since discordance with absolute values may lead to misinterpretation of CBC data. Current Interpretive Data was last revised on 2017. Testing performed by: [address] [address] Blood 06/14/2024 9:54 AM CDT 06/14/2024 9:56 AM CDT us Venkat Vivar DO LAB BLOOD ORDERABLES Final R esult JAIME [address] [facility] Department [place] [address] * (ABNORMAL) CBC with auto differential (06/14/2024 9:54 AM CDT) Pathologist [facility] WBC 4.9 3.8 - 9.9 K/cumm Comment:Testing performed by : [address] [address] Hgb 12.9(L) 13.0 - 17.5 g/dL JA[facility] Comment:Testing performed by : [address] [address] Hct 37.9(L) 38.9 - 50.3 % JAIME [facility]EDA Comment:Testing performed by : [address] [address] Plt 168 150 - 400 K/cumm JAIME PINEDA Comment:Testing performed by : [address] [place] [address] MPV 9.1 9.1 - 12.3 fL JAIME [facility]A Comment:Testing performed by : [address] [address] RBC 4.06(L) 4.30 - 5.80 M/cumm JAIME PINEDA Comment:Testing performed by : [address] [address] MCV 93.3 81.3 - 96.4 fL JAIME PINEDA Comment:Testing performed by : [address] [address] MCH 31.8 27.1 - 33.3 pg JAIME PINEDA Comment:Testing performed by : [address] [address] MCHC 34.0 32.3 - 35.7 g/dL JAIME PINEDA Comment:Testing performed by : [address], [address] RDW CV 14.0 11.1 - 14.9 % JAIME Comment:Testing performed by : [address], [address] RDW SD 47.6 35.7 - 48.1 fL JAIME Comment:Testing performed by : [address] [address] NRBC abs 0.00 0.00 - 0.01 K/cumm JAIME PINEDA Comment:Testing performed by : [address] [address] Blood 06/14/2024 9:54 AM CDT 06/14/2024 9:56 AM CDT us Venkat Vivar DO LAB BLOOD ORDERABLES Final R esult JAIME PINEDA [address] [facility] Department [place] [address] * Comprehensive metabolic panel (06/14/2024 9:54 AM CDT) [facility] Signature Sodium 138 135 - 145 mmol/L Comment:Testing performed by : [address] [address] Potassium, pl 4.5 3.3 - 4.9 mmol/L JAIME Comment:Testing performed by : [address] [address] Chloride 105 97 - 110 mmol/L JAIME Comment:Testing performed by : [address], [place]., [address] CO2 27 22 - 32 mmol/L JAIME Comment:Testing performed by : [address], [place]., [address] Anion gap 6 2 - 15 mmol/L JAIME Comment:Testing performed by : [address] [address] BUN 13 6 - 25 mg/dL JAIME Comment:Testing performed by : [address], [place]., [address] Creatinine 0.80 0.80 - 1.30 mg/dL JAIME Comment:Testing performed by : [address] [address] Glucose 117 70 - 199 mg/dL [facility] Comment: Interpretive Data Fasting glucose >/= 126 [...] was last revised 2022. Testing performed by: [address] [address] Calcium 9.2 8.5 - 10.3 mg/dL JAIME Comment:Testing performed by : [address] [address] Bilirubin, total 0.4 0.1 - 1.2 mg/dL JAIME Comment:Testing performed by : [address] [address] Protein, pl 7.2 6.5 - 8.5 g/dL JAIME PINEDA Comment:Testing performed by : [address] [address] Albumin 4.1 3.5 - 5.0 g/dL JAIME Comment:Testing performed by : [address] [address] Alk phos 73 40 - 130 Units/L JAIME Comment:Testing performed by : [address] [address] ALT 18 7 - 55 Units/L JAIME Comment:Testing performed by : [address] [address] AST 16 10 - 50 Units/L JAIME Comment:Testing performed by : [address] [address] Blood 06/14/2024 9:54 AM CDT 06/14/2024 9:56 AM CDT Venkat Vivar DO LAB BLOOD ORDERABLES Final R esult JAIME [address] [facility] Department of Laboratories [place], [place] [id number] * CT Chest Abdomen Pelvis W Contrast [...] Bj Galvan D.O. PS: PS Report ID: [id number] Reading Location: [id number] Procedure Note Bj Galvan DO - 06/08/2024 EXAM DESCRIPTION: CT CHEST [...] Bj Galvan D.O. PS: PS Report ID: [id number] Reading Location: [id number] us Venkat Vivar DO IMG CT PROCEDURES Final Resu lt * POCT creatinine for contrast evaluation (06/07/2024 9:01 AM CDT) Creatinine POC 1.00 0.80 - 1.30 mg/dL Comment:Testing performed by : [facility], [address] [place] [address]., [address] Blood 06/07/2024 9:01 AM CDT 06/07/2024 9:01 AM CDT us Venkat Vivar DO POINT OF CARE TEST ORDERABLE S Final Result [facility] [address] [facility] Department [place] [address] from Last 3 Months Insurance MEDICARE [employer] SENIOR SUPPLEMENT MEDICARE [facility] MEDICARE SUPPLEMENT MEDICARE [facility] MEDICARE SUPPLEMENT Care Teams Ship Surveyor Relationship Specialty Start Date End Date Nikky Reyes MD [address] [facility] [address] [place] [address] PCP - General Family Practice 12/15/23 Venkat Vivar DO [address] [place] [address] MEDICAL ONCOLOGY, [address] [id number] Medical Oncologist/[facility] 12/15/23 Kwaku Martin MD [address] [place] [address] MEDICAL ONCOLOGY, [address] [phone] Consulting Physician Urology 12/15/23 Richard Hargrove MD [address] [place] [phone] Radiation Oncologist Radiation Oncology 01/08/24 Adelso Quiñ[place] [address] [place] [address] Surgeon Urology 01/22/24
--- OUTSIDE RECORDS SUMMARY | 2024-08-13 07:39 | XMS_ITS | Encounter Summary ---
Author Organization [employer] [facility] Address [address] [place] [address] Care Team Providers Care Management Professional Name Role Phone Rosanne Santana MD Primary Care Provider [phone] Encounter Details Date Type Department Care Team (Latest Contact Info) Description 10/22/2004 Inpatient Historical HIS PATIENT IN A BED Jono Scherer MD [address] [place] [address] [facility] ([facility]) (Primary Dx) Social History Tobacco Use Types Packs/Day Years Used Date Smoking Tobacco: Never Assessed Sex and Gender Information Value Date Recorded Sex Assigned at Not on file Legal Sex Male 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 GRAIN RECEIVER Gender Identity Not on file Sexual Orientation [...] ORDERABLES Final Re sult Performing Organization Address City/[facility] Co de Phone Number INTERFACE SYSTEM Refer to clinic/hospital department * MAGNESIUM LEVEL (10/25/2004 6:44 AM CDT) MAGNESIUM 1.9 1.5 - 2.5 mg/dL INTERFACE SYSTEM 10/25/2004 6:44 AM CDT us Rosanne Santana MD CHEMISTRY ORDERABLES Final Res ult Performing Organization Address City/[facility] Co de Phone Number INTERFACE SYSTEM Refer [...] ORDERABLES Final Res ult Performing Organization Address [facility] de Phone Number INTERFACE SYSTEM Refer to clinic/hospital department * (ABNORMAL) CK TOTAL, RELATIVE INDEX (10/24/2004 7:01 AM CDT) CARDIAC RELATIVE INDEX 4.1(H) <=4.0 INTERFACE SYSTEM CK 796(H) 10 - 170 U/L INTERFACE SYSTEM 10/24/2004 7:01 AM CDT Kan Atkinson MD CHEMISTRY ORDERABLES Final Res ult Performing Organization Address [facility] de Phone Number INTERFACE SYSTEM Refer to clinic/hospital department * (ABNORMAL) CKMB W/REFLEX CK (10/24/2004 7:01 AM CDT) Pathologist [facility] CKMB 33.0(AA) <=6.7 ng/mL INTERFACE SYSTEM Comment:Persistent abnormal result CKMB INTERP See Below INTERFAC E SYSTEM Comment:Elevated CKMB,Consis tent with Myocardial Injury 10/24/2004 7:01 AM CDT Kan Atkinson MD CHEMISTRY ORDERABLES Final Res ult Performing Organization Address [facility] Phone Number INTERFACE SYSTEM Refer [...] ORDERABLES Final Resu lt Performing Organization Address [facility] Phone Number INTERFACE SYSTEM Refer [...] ORDERABLES Final Resu lt Performing Organization Address [facility] Phone Number INTERFACE SYSTEM Refer to clinic/hospital department * MAGNESIUM LEVEL (10/24/2004 4:42 AM CDT) MAGNESIUM 1.9 1.5 - 2.5 mg/dL INTERFACE SYSTEM 10/24/2004 4:42 AM CDT Alba Huff CHEMISTRY ORDERABLES Final Resul t Performing Organization Address [facility] Phone Number INTERFACE SYSTEM Refer [...] mmol/L INTERFACE SYSTEM 10/24/2004 4:42 AM CDT [email or web address] CHEMISTRY ORDERABLES Final Resul t Performing Organization Address City/[facility] de Phone Number INTERFACE SYSTEM Refer to clinic/hospital department * (ABNORMAL) CK TOTAL, RELATIVE INDEX (10/23/2004 1:45 PM CDT) CARDIAC RELATIVE INDEX 8.0(H) <=4.0 INTERFACE SYSTEM CK 1,462(H) 10 - 170 U/L INTERFACE SYSTEM 10/23/2004 1:45 PM CDT [employer] CHEMISTRY ORDERABLES Final Resul t Performing Organization Address [facility] Phone Number INTERFACE SYSTEM Refer to clinic/hospital department * (ABNORMAL) CKMB W/REFLEX CK (10/23/2004 1:45 PM CDT) CKMB 117.0(AA) <=6.7 ng/mL INTERFACE SYSTEM Comment:Persistent abnormal result CKMB INTERP See Below INTERFAC E SYSTEM Comment:Elevated CKMB,Consis tent with Myocardial Injury 10/23/2004 1:45 PM CDT [employer] CHEMISTRY ORDERABLES Final Resul t Performing Organization Address [facility] de Phone Number INTERFACE SYSTEM Refer to [...] 10/23/2004 1:45 PM CDT Alba Huff HEMATOLOGY ORDERABLES Final Resu lt Performing Organization Address [facility] de Phone Number INTERFACE SYSTEM Refer to [...] fL INTERFACE SYSTEM 10/23/2004 1:45 PM CDT [employer] HEMATOLOGY ORDERABLES Final Resu lt Performing Organization Address [facility] de Phone Number INTERFACE SYSTEM Refer to [...] mmol/L INTERFACE SYSTEM 10/23/2004 1:45 PM CDT [employer] CHEMISTRY ORDERABLES Final Resul t Performing Organization Address [facility] Phone Number INTERFACE SYSTEM Refer to clinic/hospital department * MAGNESIUM LEVEL (10/23/2004 1:45 PM CDT) Pathologist [facility] MAGNESIUM 2.2 1.5 - 2.5 mg/dL INTERFACE SYSTEM 10/23/2004 1:45 PM CDT [employer] CHEMISTRY ORDERABLES Final Resul t Performing Organization Address [facility] Phone Number INTERFACE SYSTEM Refer to clinic/hospital department * (ABNORMAL) TROPONIN (W/REFLEX CKMB/CK) (10/23/2004 1:45 PM CDT) Pathologist [facility] TROPONIN T 5.78(AA) <=0.03 ng/mL INTERFACE SYSTEM Comment:Persistent abnormal result TROPONIN T INTERP See Below INTERFACE SYSTEM Comment:Elevated Troponin-T, Consistent with Myocardial Injury 10/23/2004 1:45 PM CDT [employer] ORDERABLES Final Resul t Performing Organization Address [facility] Phone Number INTERFACE SYSTEM Refer to clinic/hospital department * (ABNORMAL) CBC WITH DIFFERENTIAL (10/23/2004 11:27 AM CDT) Pathologist [facility] NEUTROPHILS 77(H) 45 - 70 % [...] ORDERABLES Final R esult Performing Organization Address City/[facility] de Phone Number INTERFACE SYSTEM Refer to [...] ORDERABLES Final R esult Performing Organization Address City/[facility] Co de Phone Number INTERFACE SYSTEM Refer [...] ORDERABLES Final Re sult Performing Organization Address City/[facility] Co de Phone Number INTERFACE SYSTEM Refer to clinic/hospital department * (ABNORMAL) CK TOTAL, RELATIVE INDEX (10/23/2004 11:27 AM CDT) CARDIAC RELATIVE INDEX 8.5(H) <=4.0 INTERFACE SYSTEM CK 1,062(H) 10 - 170 U/L INTERFACE SYSTEM 10/23/2004 11:2 7 AM CDT Jono Scherer MD CHEMISTRY ORDERABLES Final Re sult Performing Organization Address [facility] Co de Phone Number INTERFACE SYSTEM Refer to clinic/hospital department * (ABNORMAL) CKMB W/REFLEX CK (10/23/2004 11:27 AM CDT) CKMB 90.5(AA) <=6.7 ng/mL INTERFACE SYSTEM Comment:Persistent abnormal result CKMB INTERP See Below INTERFAC E SYSTEM Comment:Elevated CKMB,Consis tent with Myocardial Injury 10/23/2004 11:2 7 AM CDT Jono Scherer MD CHEMISTRY ORDER [id number]|2024-08-13 07:38:00|2024-08-13 07:38:00|XMS_ITS|RAMIREZ BELLE|External Medical Summaries|[id number]|" Encounter Summary Created on: August 13, 2024 Venkat Aranda : 1950 Sex: Male Author Organization [employer] Address [address] [place] [address] Care Team Providers Care Management Professional Name Role Phone Rosanne Santana MD Primary Care Provider [phone] Encounter Details Date Type Department Care Team [...] on file Legal Sex Male 4:23 AM GRAIN RECEIVER Gender Identity Not on file Sexual Orientation Not on file documented as of this encounter Plan of Treatment Not on file documented as of this encounter Visit Diagnoses Diagnosis Backache, unspecified- Primary documented in this encounter Care Teams Management Professional Relationship Specialty Start Date End Date Rosanne Santana MD [address] [place] [address] [place] [phone] PCP - General 10/24/03 documented as of this encounter "
--- OUTSIDE RECORDS SUMMARY | 2024-08-13 07:39 | XMS_ITS | Encounter Summary ---
Author Organization [employer] Address [address] [place] [address] Care Team Providers Care Professor Of Physics Name Role Phone Rosanne Santana MD Primary Care Provider [phone] Encounter Details Date Type Department Care Team (Late st Contact Info) Description 10/23/[address] [facility] Support [facility] ([facility]) [address] 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 [place] [address] PCP - General 10/24/03 documented as of this encounter
--- OUTSIDE RECORDS SUMMARY | 2024-08-13 07:39 | XMS_ITS | Encounter Summary ---
Author Organization [employer] Address [address] [place] [address] Care Team Providers Care Weatherization Installer Name Role Phone Rosanne Santana MD Primary Care Provider [phone] Encounter Details Date Type Department Care Team (Latest Contact Info) Description 01/17/2003 Outpatient [facility] [address] [place] [address] & [place] [address] Rosanne Santana MD 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 [place] [address] PCP - General 10/24/03 documented as of this encounter
--- OUTSIDE RECORDS SUMMARY | 2024-08-13 07:39 | XMS_ITS | Encounter Summary ---
Author Organization [employer] Address [address] [place] [address] Care Team Providers Care Mgmt Specialist Name Role Phone Rosanne Santana MD Primary Care Provider [phone] Encounter Details Date Type Department Care Team (Late st Contact Info) Description 12/02/2001 [facility]patient [facility] [address] 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
--- OUTSIDE RECORDS SUMMARY | 2024-08-13 07:39 | XMS_ITS | Encounter Summary ---
Author Organization [employer] Address [address] [place] [address] Care Team Providers Care Pantry Worker Name Role Phone Rosanne Santana MD Primary Care Provider [phone] Encounter Details Date Type Department Care Team (Latest Contact Info) Description 01/17/2004 Outpatient [facility] [address] [place] [address] & [place] [address] Rosanne Santana MD 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 [place] [address] PCP - General 10/24/03 documented as of this encounter
--- OUTSIDE RECORDS SUMMARY | 2024-08-13 07:39 | XMS_ITS | Encounter Summary ---
Author Organization [facility] Address [address] [place] [address] Care Team Providers Care Software Publisher Name Role Phone Rosanne Santana MD Primary Care Provider [phone] Encounter Details Date Type Department Care Team (Late st Contact Info) Description 06/25/2007 Inpatient Historical [place] [address] [address] [place] [address] Jono Scherer MD [address] [place] [address] Unspecified Chest Pain Social History Tobacco Use Types Packs/Day Years Used Date Smoking Tobacco: Never Assessed Sex and Gender Information Value Date Recorded Sex Assigned at Not on file 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 #: [id number] POC: Attending MD: Romel Performing MD: Romel [...] 09:06:43 Procedure Note Provider, Historical - 07/01/2007 [place] [address] [place] [address] [email or web address] Cardiac Catheterization Comprehensive Report Patient: Mitchell Rodriguez Study ID: [id number] Gender: M : 1950 Age: 57 years Race: 1 Room: Bed: Height: 73 in ( 185.4 cm ) Study Date: June 25, 2007 Patient status: Inpatient Weight: 183.9 lb ( 83.6 kg ) Access. #: [id number] POC: Attending MD: Romel Performing MD: Romel [...] FLUOROSCOPY ORDERABLES Final Result Performing Organization Address [facility]/ZIP Co de Phone Number INTERFACE SYSTEM Refer to clinic/hospital department * CKMB W/REFLEX CK (06/26/2007 4:50 AM CDT) CKMB 3.0 <=6.7 ng/mL [facility] CKMB INTERP Negative [facility] Blood specimen (specimen) 06/26/2007 4:50 AM CDT 06/26/2007 4:59 AM CDT us Jono Scherer MD CHEMISTRY ORDERABLES Edited Performing Organization Address [facility]/ZIP Co de Phone Number [facility] [address] [place] [address] * (ABNORMAL) CBC WITH DIFFERENTIAL (06/26/2007 4:50 AM CDT) WBC 6.5 4.0 - 9.8 K/uL [facility] MCH 31.8 27.2 - 32.6 pg [facility] MPV 9.9 9.3 - 12.4 fL [facility] HEMATOCRIT 40.2 40.0 - 48.0 % [facility] RDW-STDEV 44.4 37.1 - 48.7 fL [facility] RBC 4.31(L) 4.50 - 5.40 M/uL [facility] MCHC 34.1 31.5 - 35.5 % [facility] MCV 93.3 82.0 - 99.0 fL [facility] PLATELETS 146 140 - 350 K/uL [facility] HEMOGLOBIN 13.7 13.6 - 16.5 g/dL [facility] RDW 13.1 11.5 - 14.5 % [facility] BASOPHILS 0 0 - 2 % [facility] BASOPHILS ABSOLUTE 0.02 0.00 - 0.20 K/uL [facility] MONOCYTES 13 3 - 13 % [facility] MONOCYTE ABSOLUTE 0.83 0.10 - 1.30 K/uL [facility] NEUTROPHILS 66 45 - 70 % [facility] NEUTROPHIL ABSOLUTE 4.29 1.90 - 7.00 K/uL [facility] EOSINOPHILS 3 0 - 7 % [facility] EOSINOPHIL ABSOLUTE 0.16 0.00 - 0.70 K/uL [facility] LYMPHOCYTES 18 16 - 45 % [facility] LYMPHOCYTE ABSOLUTE 1.19 0.70 - 4.50 K/uL [facility] Blood specimen (specimen) 06/26/2007 4:50 AM CDT 06/26/2007 4:59 AM CDT Jono Scherer MD HEMATOLOGY ORDERABLES Edited Performing Organization Address [facility] Phone Number INTERFACE SYSTEM Refer to clinic/hospital department [facility] [address] [place] [address] * (ABNORMAL) PHOSPHORUS (06/26/2007 4:50 AM CDT) PHOSPHORUS 2.2(L) 2.5 - 4.5 mg/dL [facility] Blood specimen (specimen) 06/26/2007 4:50 AM CDT 06/26/2007 4:59 AM CDT Jono Scherer MD CHEMISTRY ORDERABLES Final Re sult Performing Organization Address [facility] de Phone Number [facility] [address] [place] [address] * MAGNESIUM LEVEL (06/26/2007 4:50 AM CDT) MAGNESIUM 2.2 1.5 - 2.5 mg/dL [facility] Blood specimen (specimen) 06/26/2007 4:50 AM CDT 06/26/2007 4:59 AM CDT Jono Scherer MD CHEMISTRY ORDERABLES Final Re sult Performing Organization Address [facility] de Phone Number [facility] [address] [place] [address] * (ABNORMAL) BASIC METABOLIC PANEL (06/26/2007 4:50 AM CDT) BUN 15 6 - 20 mg/dL [facility] CHLORIDE 103 96 - 108 mmol/L [facility] GLUCOSE 97 65 - 99 mg/dL [facility] SODIUM 135 135 - 145 mmol/L [facility] CALCIUM 8.3(L) 8.4 - 10.2 mg/dL [facility] CO2 26 22 - 30 mmol/L [facility] CREATININE 0.78 0.67 - 1.17 mg/dL [facility] POTASSIUM 3.7 3.5 - 4.9 mmol/L [facility] GFR, >60 >=60 mL/min/1. 7 sq meter [facility] GFR >60 >=60 mL/min/1. 7 sq meter [facility] Comment: Estimated GFR rate interpretative information for both Americans and non- Americans is available on the [facility] Intranet at: [email or web address] Select: Lab Policies and Procedures Select: Reference Ranges - GFR Blood specimen (specimen) 06/26/2007 4:50 AM CDT 06/26/2007 4:59 AM CDT Jono Scherer MD CHEMISTRY ORDERABLES Edited [facility] [address] [place] [address] * (ABNORMAL) TROPONIN (W/REFLEX CKMB/CK) (06/26/2007 4:50 AM CDT) TROPONIN T 0.06(AA) <=0.03 ng/mL [facility] Comment: Persistent abnormal result TROPONIN T INTERP See Below [facility] Comment: Elevated Troponin-T,Consistent with Myocardial Injury Blood specimen (specimen) 06/26/2007 4:50 AM CDT 06/26/2007 4:59 AM CDT Jono Scherer MD CHEMISTRY ORDERABLES Edited [facility] [address] [place] [address] * CKMB W/REFLEX CK (06/25/2007 8:18 PM CDT) CKMB 5.8 <=6.7 ng/mL [facility] CKMB INTERP Negative [facility] Blood specimen (specimen) 06/25/2007 8:18 PM CDT 06/25/2007 8:23 PM CDT Jono Scherer MD CHEMISTRY ORDERABLES Edited Performing Organization Address [facility] Co de Phone Number [facility] [address] [place] [address] * (ABNORMAL) TROPONIN (W/REFLEX CKMB/CK) (06/25/2007 8:18 PM CDT) [facility] TROPONIN T 0.05(AA) <=0.03 ng/mL [facility] Comment: Results called to Lynne at 06/25/07 9:43 PM and read back verified. TROPONIN T INTERP See Below [facility] Comment: Elevated Troponin-T,Consistent with Myocardial Injury Blood specimen (specimen) 06/25/2007 8:18 PM CDT 06/25/2007 8:23 PM CDT Jono Scherer MD CHEMISTRY ORDERABLES Edited Performing Organization Address City/[facility]/ZIP Co de Phone Number [facility] [address] [place] [address] * (ABNORMAL) BASIC METABOLIC PANEL (06/25/2007 1:44 PM CDT) Pathologist [facility] GLUCOSE 94 65 - 99 mg/dL [facility] SODIUM 138 135 - 145 mmol/L [facility] CALCIUM 8.1(L) 8.4 - 10.2 mg/dL [facility] CO2 24 22 - 30 mmol/L [facility] CREATININE 0.76 0.67 - 1.17 mg/dL [facility] POTASSIUM 3.8 3.5 - 4.9 mmol/L [facility] BUN 11 6 - 20 mg/dL [facility] CHLORIDE 105 96 - 108 mmol/L [facility] GFR, >60 >=60 mL/min/1. 7 sq meter [facility] GFR >60 >=60 mL/min/1. 7 sq meter [facility] Comment: Estimated GFR rate interpretative information for both Americans and non- Americans is available on the [facility] Intranet at: [email or web address] [email or web address] [email or web address] Select: Lab Policies and Procedures Select: Reference Ranges - GFR Blood specimen (specimen) 06/25/2007 1:44 PM CDT 06/25/2007 1:55 PM CDT us Alena Guardado MD CHEMISTRY ORDERABLES Edited [facility] [address] [place] [place] [address] * XR CHEST PA OR AP (06/25/2007 12:20 PM CDT) Anatomical Region Laterality Modality Chest Other 06/25/2007 12:2 0 PM CDT Narrative 06/25/2007 12:50 PM CDT [facility] [address] [place], [place] [address] Admit Date: 06/25/2007 MITCHELL RODRIGUEZ Sex: M Admit Prov: PAU DE LA CRUZ J Date: 1950 Primary Care Prov: CMRN: [id number] Room: [address] [place] [address] SSN: [id number] IMAGING SERVICES Ordering Prov: N/A Accession Number: [id number] Interpretation Chest single view 06/25/2007 History: Chest pain Findings: The right costophrenic angle is cut off the film. No infiltrate, pneumothorax or pleural effusion is seen. The cardiac silhouette appears prominent. . Dictated by: NIYAH HULL 06/25/2007 12:49 Electronically signed by: NIYAH HULL 06/25/2007 12:50 Procedure Note Niyah Hull - 06/25/2007 [facility] [address] [place], [place] [address] Admit Date: 06/25/2007 MICHAEL MITCHELL Flowers Sex: M Admit Prov: PAU DE LA CRUZ Date: 1950 Primary Care Prov: CMRN: [id number] Room: [address] [place] [address] SSN: [id number] IMAGING SERVICES Ordering Prov: N/A Interpretation Chest [...] PM CDT) TROPONIN T <0.01 <=0.03 ng/mL [facility] TROPONIN T INTERP Negative [facility] Blood specimen (specimen) 06/25/2007 12:00 PM CDT 06/25/2007 12:12 PM CDT Jono Scherer MD CHEMISTRY ORDERABLES Edited [facility] [address] [place] [address] * (ABNORMAL) PTT (06/25/2007 12:00 PM CDT) PTT 79.1(H) 24.4 - 36.4 Seconds [facility] Comment: PTT Therapeutic Range: Heparin Level [...] [facility] Co de Phone Number [facility] [address] [place] [address] * (ABNORMAL) PROTIME-INR (06/25/2007 12:00 PM CDT) PROTIME 22.6(H) 12.7 - 15.1 Seconds [facility] INR 2.0(H) 0.9 - 1.1 [facility] Comment: INR Therapeutic Range: Adult: 2.0 - 3.0 for pulmonary embolism or prophylaxis against venous thrombosis or systemic embolization. 2.0 - 3.0 for patients with tissue heart valves. 2.5 - 3.5 for patients with mechanical heart valves or post NC. Pediatric (12 years and under): 1.5 - [...] Scherer MD HEMATOLOGY ORDERABLES Final R esult [facility] [address] [place], [address] [address] * (ABNORMAL) CBC WITH DIFFERENTIAL (06/25/2007 12:00 PM CDT) MCV 93.4 82.0 - 99.0 fL [facility] PLATELETS 156 140 - 350 K/uL [facility] HEMOGLOBIN 14.0 13.6 - 16.5 g/dL [facility] RDW 13.2 11.5 - 14.5 % [facility] WBC 6.3 4.0 - 9.8 K/uL [facility] MCH 32.0 27.2 - 32.6 pg [facility] MPV 10.0 9.3 - 12.4 fL [facility] HEMATOCRIT 40.8 40.0 - 48.0 % [facility] RDW-STDEV 44.9 37.1 - 48.7 fL [facility] RBC 4.37(L) 4.50 - 5.40 M/uL [facility] MCHC 34.3 31.5 - 35.5 % [facility] BASOPHILS 0 0 - 2 % [facility] BASOPHILS ABSOLUTE 0.01 0.00 - 0.20 K/uL [facility] MONOCYTES 10 3 - 13 % [facility] MONOCYTE ABSOLUTE 0.64 0.10 - 1.30 K/uL [facility] NEUTROPHILS 69 45 - 70 % [facility] NEUTROPHIL ABSOLUTE 4.33 1.90 - 7.00 K/uL [facility] EOSINOPHILS 2 0 - 7 % [facility] EOSINOPHIL ABSOLUTE 0.10 0.00 - 0.70 K/uL [facility] LYMPHOCYTES 19 16 - 45 % [facility] LYMPHOCYTE ABSOLUTE 1.17 0.70 - 4.50 K/uL [facility] Blood specimen (specimen) 06/25/2007 12:00 PM CDT 06/25/2007 12:12 PM CDT us Jono Scherer MD HEMATOLOGY ORDERABLES Edited INTERFACE SYSTEM Refer to clinic/hospital department [facility] [place] [address] * POC ACTIVATED CLOTTING TIME (06/25/2007 10:51 AM CDT) ACT POC 328 Seconds [facility] Comment: Note sheath pull range change effective 09/20/2005. ACT value for sheath pull at [facility] has been established to be < or = to 140. (See also Nursing Procedures for sheath pull in related nursing areas) Blood specimen (specimen) 06/25/2007 10:51 AM CDT 06/25/2007 10:51 AM CDT [id number]|2024-08-13 07:39:00|2024-08-13 07:38:00|XMS_ITS|BK[facility] DAEMON|External Medical Summaries|[id number]|" Encounter Summary Created on: August 13, 2024 Mitchell Rodriguez : 1950 Sex: Male Author Organization [facility] Address 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 Jono Richards MD [address] [place] [address] Coronary Atherosclerosis of [place] Coronary Artery (Primary Dx) Social History Tobacco Use Types Packs/Day Years Used Date Smoking Tobacco: Never Assessed Sex and Gender Information Value Date Recorded Sex Assigned at Not on file 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
--- OUTSIDE RECORDS SUMMARY | 2024-08-13 07:39 | XMS_ITS | Encounter Summary ---
Author Organization [employer] Address [address] [place] [address] Care Team Providers Care Life Sciences Director Name Role Phone Rosanne Santana MD Primary Care Provider [phone] Encounter Details Date Type Department Care Team (Latest Contact Info) Description 10/24/2003 Outpatient [facility] [employer] [facility] [address] [place] [address] & [place] [address] Rosanne Santana MD [address] [place] [address] PURE HYPERCHOLESTEROLEM (Primary Dx) Social History Tobacco Use Types Packs/Day Years Used Date Smoking Tobacco: Never Assessed Sex and Gender Information Value Date Recorded Sex Assigned at Not on file 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
--- OUTSIDE RECORDS SUMMARY | 2024-08-13 07:39 | XMS_ITS | Encounter Summary ---
Author Organization [employer] Address 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
--- OUTSIDE RECORDS SUMMARY | 2024-08-13 07:39 | XMS_ITS | Encounter Summary ---
Author Organization [employer] Address [address] [place] [address] Care Team Providers Care Operations Management Professionals Name Role Phone Rosanne Santana MD Primary Care Provider [phone] Encounter Details Date Type Department Care Team (Late st Contact Info) Description 05/16/[address] [facility] [address] 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
--- OUTSIDE RECORDS SUMMARY | 2024-08-13 07:39 | XMS_ITS | Encounter Summary ---
Author Organization [employer] Address 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
--- OUTSIDE RECORDS SUMMARY | 2024-08-13 07:39 | XMS_ITS | Encounter Summary ---
Author Organization [employer] Address [address] [facility] [address] Care Team Providers Care Package Drier Name Role Phone Rosanne Santana MD Primary Care Provider [phone] Encounter Details Date Type Department Care Team (Late st Contact Info) Description 10/23/[address] [facility] [address] 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
--- OUTSIDE RECORDS SUMMARY | 2024-08-13 07:39 | XMS_ITS | Encounter Summary ---
Author Organization [employer] Address [address] [place] [address] Care Team Providers Care Culinary Art Teacher Name Role Phone Rosanne Santana MD Primary Care Provider [phone] Encounter Details Date Type Department Care Team (Late st Contact Info) Description 02/13/2006 Outpatient Historical [facility] Support Serv. 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
--- OUTSIDE RECORDS SUMMARY | 2024-08-13 07:39 | XMS_ITS | Encounter Summary ---
Author Organization [employer] Address [address] [place] [address] Care Team Providers Care Senior Media Buyer Name Role Phone Rosanne Santana MD Primary Care Provider [phone] Encounter Details Date Type Department Care Team (Late st Contact Info) Description 11/06/[address] [facility] Support Serv. (Adt Cardiology-[facility]) [address] 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
--- OUTSIDE RECORDS SUMMARY | 2024-08-13 07:39 | XMS_ITS ---
Author Organization [facility] [address] Address [address] [place] [address] Care Team Providers Care Photograph Inspector Name Role Phone Nikky Reyes MD Primary Care Provider Venkat Vivar DO Unavailable [phone] Kwaku Martin MD Unavailable [phone] Richard Hargrove MD Unavailable [phone] Adelso Quiñones MD Unavailable [phone] Active Problems Problem Noted Date Diagnosed [...] Low-Dose Gemcitabine with Concurrent Radiation - Bladder 01/23/20 24 04/19/2024 gemcitabine (GEMZAR)gemcit abine (GEMZAR) IVPB in 50 [...]
--- OUTSIDE RECORDS SUMMARY | 2024-08-13 07:39 | XMS_ITS | Encounter Summary ---
Author Organization [facility] Address 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
--- OUTSIDE RECORDS SUMMARY | 2024-08-13 07:40 | XMS_ITS | Encounter Summary ---
Author Organization [employer] Address [address] [place] [address] Care Team Providers Care Radio Television Announcer Name Role Phone Rosanne Santana MD Primary Care Provider [phone] Encounter Details Date Type Department Care Team (Latest Contact Info) Description 12/02/2001 Outpatient Historical [facility] CARDIOPULMONARY Rosanne Santana MD [address] [facility] [place] [address] OTHER MALAISE AND FATIGUE (Primary Dx) Social History Tobacco Use Types Packs/Day Years Used Date Smoking Tobacco: Never Assessed Sex and Gender Information Value Date Recorded Sex Assigned at Not on file Legal Sex Male 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
--- OUTSIDE RECORDS SUMMARY | 2024-08-13 07:40 | XMS_ITS | Encounter Summary ---
Author Organization [employer] Address [address] [place] [address] Care Team Providers Care Catalogue Illustrator Name Role Phone Rosanne Santana MD Primary Care Provider [phone] Encounter Details Date Type Department Care Team (Late st Contact Info) Description 12/02/2001 Outpatient [facility] ([facility]t Card[facility]) [address] 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
--- OUTSIDE RECORDS SUMMARY | 2024-08-13 07:40 | XMS_ITS | Encounter Summary ---
Author Organization [employer] Address [address] [place] [address] Care Team Providers Care Hide Selector Name Role Phone Rosanne Santana MD Primary Care Provider [phone] Encounter Details Date Type Department Care Team (Late st Contact Info) Description 12/02/2001 [facility]) [address] 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
[2024-08-13 08:26] LABS: Alanine Aminotransferase 25 U/L (6-50); Albumin Level 4.4 g/dL (3.5-5.1); Alkaline Phosphatase 71 U/L (38-126); Anion Gap 8 mmol/L (4-12); Aspartate Amino Transferase 34 U/L (17-59); Bilirubin,Total 0.8 mg/dL (0.2-1.3); Blood Urea Nitrogen 17 mg/dL (9-20); Carbon Dioxide 29 mmol/L (22-30); Chloride 106 mmol/L (98-107); Cholesterol 113 mg/dL (0-200); Estimated Glomerular Filt Rate > 60; Glucose 108 mg/dL (65-110); HDL Direct 31 mg/dL; Potassium 4.3 mmol/L (3.4-5.0); Sodium 143 mmol/L (137-145); Triglycerides 132 mg/dL (<150)
[2024-08-13 08:37] LABS: LDL Cholesterol Direct 47 mg/dL
[2024-08-13 08:38] LABS: Iron 98 ug/dL (49-181)
[2024-08-13 08:48] LABS: Percent Iron Saturation 35 % (20-50)
[2024-08-13 08:57] LABS: Prostate Specific Antigen 0.3 ng/mL (< OR = 4.0)
[2024-08-13 09:00] LABS: Hemoglobin A1C 5.5 % (<5.7)
[2024-08-13 09:01] LABS: Vitamin D 25 Hydroxy 68.2 ng/mL
[2024-08-13 10:53] LABS: Total Triiodothyronine (T3) 1.53 NG/ML (0.97-1.69)
== END 2024-08-13 07:36 | disposition home or self-care (01) ==
LOC: ANHLAB 07:36
PROVIDERS: PCP Family Medicine; Visit Provider Family Medicine
DX: D64.9 Anemia, unspecified (principal); E55.9 Vitamin D deficiency, unspecified; E78.5 Hyperlipidemia, unspecified; R73.9 Hyperglycemia, unspecified; Z12.5 Encounter for screening for malignant neoplasm of prostate
CPT/HCPCS: 36415; 80053; 80061; 82306; 82728; 83036; 83540; 83550; 84153; 84439; 84443; 84480; G0103

== ENCOUNTER 2024-09-08 01:11 | Emergency (ER) | payer MEDICARE, SELFPAY ==
[2024-09-08] VITALS (7 sets, daily range): BP systolic 128–136; BP diastolic 74–88; PULSE 66–81; RESP 11–19; TEMP 36.6; O2SAT 95–99
--- NOTE | ~2024-09-08 | XR_ITS ---
Portable chest x-ray Comparison: 04/12/2024 Clinical History: Shortness of breath Findings: There is minimal bibasilar haziness. No pleural effusion or pneumothorax. Cardiomediastin al silhouette is stable. Bones and soft tissues are unremarkable. Impression: Possible minimal bibasilar pulmonary edema. Reviewed, dictated and finalized at [facility]. Impression: Possible minimal bibasilar pulmonary edema.
--- OUTSIDE RECORDS SUMMARY | 2024-09-08 01:13 | XMS_ITS | Encounter Summary ---
Author Organization [employer] Address 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
--- OUTSIDE RECORDS SUMMARY | 2024-09-08 01:13 | XMS_ITS | Encounter Summary ---
Author Organization [employer] Address 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
--- OUTSIDE RECORDS SUMMARY | 2024-09-08 01:14 | XMS_ITS | Encounter Summary ---
Author Organization [employer] Address [address] [place] [address] Care Team Providers Care Food Production Machine Operator Name Role Phone Rosanne Santana MD Primary Care Provider [phone] Encounter Details Date Type Department Care Team (Latest Contact Info) Description 11/08/2003 Inpatient Historical [facility] CARD DIE FORGER Rosanne Santana MD [address] [facility] [place] [address] CORON ATHEROSCL [place] CORON VESSEL (Primary Dx) Social History Tobacco Use Types Packs/Day Years Used Date Smoking Tobacco: Never Assessed Sex and Gender Information Value Date Recorded Sex Assigned at Not on file Legal Sex Male 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
--- OUTSIDE RECORDS SUMMARY | 2024-09-08 01:14 | XMS_ITS | Encounter Summary ---
Author Organization [employer] Address [address] [place] [address] Care Team Providers Care Component Prep Operator Name Role Phone Rosanne Santana MD Primary Care Provider [phone] Encounter Details Date Type Department Care Team (Late st Contact Info) Description 11/06/[address] [facility] Support Serv[facility] (Adt Cardiology-[facility]) [address] 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 [place] [address] PCP - General 10/24/03 documented as of this encounter
--- OUTSIDE RECORDS SUMMARY | 2024-09-08 01:14 | XMS_ITS | Continuity of Care Document ---
Author Name [facility] Organization [facility] Care Team Providers Care Gin Clerk Name Role Phone [facility] Unavailable Unavailable Problems Combined list of problems from [facility] and [facility] facilities. It does not include entries that were removed or entered in error. Problem Status Onset Date Problem Type Date of Resolution Comments Source Benign essential hypertension Active Condition [facility] Congestive heart failure Active Condition [facility] Coronary atherosclerosis (SNOMED CT 493477144) Active Condition Apr 06, 2004 Entered By: DONNY HARRISON Comment: myocardial infarction [facility] Hyperlipidemia (SNOMED CT 65334967) Active Condition [facility] Hypothyroidism Active Condition [facility] Prediabetes Active Condition [facility] Diagnosis: ICD-10-CM Z13.5 Encounter for screening for eye and ear disorders Active Diagnosis [facility] Diagnosis: ICD-10-CM I25.10 Athscl heart disease of [place] coronary artery w/o ang pctrs Active Diagnosis [facility] Medications Combined list of outpatient medications from [facility] and [facility] facilities.Medications provided include 1) outpatient medications from the last 15 months, and 2) patient-reported medications. Medication Details Route Status Patient Instructions Prescription Expires Prescription Number Last Dispense Date Ordering Provider Order Date Order Qty Source ASPIRIN 81MG TAB,EC TAKE ONE TABLET BY MOUTH ONCE A DAY FOR CARDIOVA SCULAR DISEASE TAKE WITH FOOD ORAL ACTIVE 11/19/2024 [id number] 4 MARGUERITE PAEZ 2023 120 [facility] CLOPIDOGREL BISULFATE 75MG TAB TAKE ONE TABLET BY MOUTH ONCE A DAY FOR ACUTE CORONARY SYNDROME ORAL ACTIVE 11/19/2024 [id number] 5 MARGUERITE PAEZ E 2023 90 [facility] CLOPIDOGREL BISULFATE 75MG TAB TAKE ONE TABLET BY MOUTH ONCE A DAY FOR ACUTE CORONARY SYNDROME ORAL DISCONT INUED 02/28/2024 [id number] 4 MARVELJOEL YUAN T [address] [place] [address] FUROSEMIDE 40MG TAB TAKE ONE TABLET BY MOUTH EVERY MORNING FOR FLUID RETENTIO N (EDEMA) ORAL ACTIVE 11/19/2024 [id number] 5 JEANNINEMARGUERITE Julisa 2023 90 [facility] FUROSEMIDE 40MG TAB TAKE ONE TABLET BY MOUTH EVERY MORNING FOR FLUID RETENTIO N (EDEMA) ORAL DISCONT INUED 02/28/2024 [id number] 4 MARVELJOEL YUAN T [address] [place] [address] LEVOTHYROXI NE NA 50MCG TAB (SYNTHROID) TAKE ONE TABLET BY MOUTH EVERY MORNING BEFORE A MEAL FOR HYPOTHYR OIDISM TAKE 30 MINUTES BEFORE FOOD. TAKE SEPARATE LY FROM ALL OTHER MEDICATI ONS. ORAL ACTIVE 11/19/2024 [id number] 4 JEANNINEMARGUERITE E 2023 90 [facility] LEVOTHYROXI NE NA 50MCG TAB (SYNTHROID) TAKE ONE TABLET BY MOUTH EVERY MORNING BEFORE A MEAL FOR HYPOTHYR OIDISM TAKE 30 MINUTES BEFORE FOOD. TAKE SEPARATE LY FROM ALL OTHER MEDICATI ONS. ORAL DISCONT INUED 02/28/2024 [id number] 4 MARVELJOEL [address] [place] [address] METOPROLOL SUCCINATE 50MG TAB,SA TAKE ONE-HALF TABLET BY MOUTH ONCE A DAY FOR HIGH BLOOD PRESSURE SWALLO W WHOLE, DO NOT CRUSH OR CHEW (TABLETS MAY BE CUT IN HALF). ORAL ACTIVE 11/19/2024 [id number] 5 JEANNINEMARGUERITE Julisa 2023 45 [facility] ROSUVASTATI N CA 40MG TAB TAKE ONE TABLET BY MOUTH EVERY EVENING FOR HIGH CHOLESTE ROL ORAL ACTIVE 11/19/2024 [id number] 5 MARGUERITE PAEZ E 2023 90 [facility] ROSUVASTATI N CA 40MG TAB TAKE ONE TABLET BY MOUTH EVERY EVENING FOR HIGH CHOLESTE ROL ORAL DISCONT INUED 02/28/2024 [id number] 4 JOEL GRIER T 2022 90 [facility] SACUBITRIL 49MG/VALSAR ABBOTT 51MG TAB TAKE ONE-HALF TABLET BY MOUTH TWICE A DAY FOR HEART FAILURE ORAL ACTIVE 11/19/2024 [id number] 5 MARGUERITE PAEZ E 2023 90 [facility] SACUBITRIL 49MG/VALSAR ABBOTT 51MG TAB TAKE ONE-HALF TABLET BY MOUTH TWICE A DAY FOR HEART FAILURE ORAL DISCONT INUED 02/28/2024 [id number] 4 JOEL GRIER T 2022 90 [facility] Immunizations Combined list of available immunizations from the Department of Defense and Veterans Affairs facilities. Immunization Series Date Given Administered By Site Reaction Lot Number CVX Code Drug Director Of Grants Status Comments Source OUTSIDE FLU SHOT (HISTORICAL) 2004 88 complet ed [facility] INFLUENZA (HISTORICAL) 2004 88 complet ed [facility] Results Combined list of recent chemistry, hematology [...] Oct 04, 2023 05:25 PM Reporting Lab: [facility] [address] [place] [phone] Performing Lab: [facility] [address] [place] [phone] [facility] CBC ERYTHROCYTE S [#/VOLUME] IN BLOOD BY AUTOMATED COUNT 3.64 10*6/u L 4.10 - 5.70 11/20 L Specimen Type: BLOOD No comment entered. Ordering Provider: WISAM GRIER Report Released Date/Time: Oct 04, 2023 05:25 PM Reporting Lab: [address] [address] Performing Lab: [place] [phone] [place] [address] CBC HEMOGLOBIN [MASS/VOLUM E] IN BLOOD 11.9 g/dL 13.1 - 16.8 11/20 L Specimen Type: BLOOD No comment entered. Ordering Provider: WISAM GRIER Report Released Date/Time: Oct 04, 2023 05:25 PM Reporting Lab: [address] [phone] Performing Lab: [place] [phone] [place] [address] CBC HEMATOCRIT [VOLUME FRACTION] OF BLOOD 35.0 38.2 - 48.4 11/20 L Specimen Type: BLOOD No comment entered. Ordering Provider: WISAM GRIER Report Released Date/Time: Oct 04, 2023 05:25 PM Reporting Lab: [address] [address] Performing Lab: [address] [phone] [place] [address] CBC MCV [ENTITIC VOLUME] BY AUTOMATED COUNT 96.2 fL 80.0 - 100.0 11/20 Specimen Type: BLOOD No comment entered. Ordering Provider: WISAM GRIER Report Released Date/Time: Oct 04, 2023 05:25 PM Reporting Lab: [address] [address] Performing Lab: [address] [phone] [place] [address] CBC MCH [ENTITIC MASS] BY AUTOMATED COUNT 32.7 pg 27.0 - 34.0 11/20 Specimen Type: BLOOD No comment entered. Ordering Provider: WISAM GRIER Report Released Date/Time: Oct 04, 2023 05:25 PM Reporting Lab: [facility] [address] [place] [phone] Performing Lab: [address] [phone] [facility] CBC MCHC [MASS/VOLUM E] BY AUTOMATED COUNT 34.0 g/dL 33.0 - 36.0 11/20 Specimen Type: BLOOD No comment entered. Ordering Provider: WISAM GRIER Report Released Date/Time: Oct 04, 2023 05:25 PM Reporting Lab: [address] [address] Performing Lab: [address] [phone] [place] [address] CBC PLATELETS [#/VOLUME] IN BLOOD BY AUTOMATED COUNT 189 10*3/u L 150 - 400 11/20 Specimen Type: BLOOD No comment entered. Ordering Provider: WISAM GRIER Report Released Date/Time: Oct 04, 2023 05:25 PM Reporting Lab: [facility] [address] [place] [phone] Performing Lab: [address] [address] [facility] CBC PLATELET MEAN VOLUME [ENTITIC VOLUME] IN BLOOD BY AUTOMATED COUNT 9.6 fL 7.5 - 11.2 11/20 Specimen Type: BLOOD No comment entered. Ordering Provider: WISAM GRIER Report Released Date/Time: Oct 04, 2023 05:25 PM Reporting Lab: [facility] [address] [place] [phone] Performing Lab: [address] [address] [facility] CBC ERYTHROCYTE DISTRIBUTIO N WIDTH [RATIO] BY AUTOMATED COUNT 14.6 11.8 - 15.1 11/20 Specimen Type: BLOOD No comment entered. Ordering Provider: WISAM GRIER Report Released Date/Time: Oct 04, 2023 05:25 PM Reporting Lab: [facility] [address] [facility] [address] Performing Lab: [facility] [address] [facility] [address] [facility] CBC LYMPHOCYTES /100 LEUKOCYTES IN BLOOD BY AUTOMATED COUNT 17 11/20 Specimen Type: BLOOD No comment entered. Ordering Provider: WISAM GRIER Report Released Date/Time: Oct 04, 2023 05:25 PM Reporting Lab: [facility] [address] [facility] [address] Performing Lab: [facility] [address] [place] [phone] [facility] CBC MONOCYTES/1 00 LEUKOCYTES IN BLOOD BY AUTOMATED COUNT 11 11/20 Specimen Type: BLOOD No comment entered. Ordering Provider: WISAM GRIER Report Released Date/Time: Oct 04, 2023 05:25 PM Reporting Lab: [facility] [address] [facility] [address] Performing Lab: [facility] [address] [place] [phone] [facility] CBC NEUTROPHILS /100 LEUKOCYTES IN BLOOD BY AUTOMATED COUNT 69 11/20 Specimen Type: BLOOD No comment entered. Ordering Provider: WISAM GRIER Report Released Date/Time: Oct 04, 2023 05:25 PM Reporting Lab: [facility] [address] [facility] [address] Performing Lab: [facility] [address] [place] [phone] [facility] CBC EOSINOPHILS /100 LEUKOCYTES IN BLOOD BY AUTOMATED COUNT 2 11/20 Specimen Type: BLOOD No comment entered. Ordering Provider: WISAM GRIER Report Released Date/Time: Oct 04, 2023 05:25 PM Reporting Lab: [facility] [address] [place] [phone] Performing Lab: [address] [address] [facility] CBC BASOPHILS/1 00 LEUKOCYTES IN BLOOD BY AUTOMATED COUNT 0 11/20 Specimen Type: BLOOD No comment entered. Ordering Provider: WISAM GRIER Report Released Date/Time: Oct 04, 2023 05:25 PM Reporting Lab: [address] [address] Performing Lab: [place] [phone] CBC LYMPHOCYTES [#/VOLUME] IN BLOOD BY AUTOMATED COUNT 1.33 10*3/u L 0.77 - 4.50 11/20 Specimen Type: BLOOD No comment entered. Ordering Provider: WISAM GRIER Report Released Date/Time: Oct 04, 2023 05:25 PM Reporting Lab: [address] [address] Performing Lab: [address] [phone] [place] [address] CBC MONOCYTES [#/VOLUME] IN BLOOD BY AUTOMATED COUNT 0.90 10*3/u L 0.19 - 0.80 11/20 H Specimen Type: BLOOD No comment entered. Ordering Provider: WISAM GRIER Report Released Date/Time: Oct 04, 2023 05:25 PM Reporting Lab: [facility] [address] [place] [phone] Performing Lab: [address] [phone] CBC NEUTROPHILS [#/VOLUME] IN BLOOD BY AUTOMATED COUNT 5.47 10*3/u L 2.10 - 8.00 11/20 Specimen Type: BLOOD No comment entered. Ordering Provider: WISAM GRIER Report Released Date/Time: Oct 04, 2023 05:25 PM Reporting Lab: [facility] [address] [place] [phone] Performing Lab: [facility] [address] [place] [phone] [facility] CBC EOSINOPHILS [#/VOLUME] IN BLOOD BY AUTOMATED COUNT 0.12 10*3/u L 0.00 - 0.60 11/20 Specimen Type: BLOOD No comment entered. Ordering Provider: WISAM GRIER Report Released Date/Time: Oct 04, 2023 05:25 PM Reporting Lab: [facility] [address] [place] [phone] Performing Lab: [place] [phone] CBC BASOPHILS [#/VOLUME] IN BLOOD BY AUTOMATED COUNT 0.03 10*3/u L 0.00 - 0.20 11/20 Specimen Type: BLOOD No comment entered. Ordering Provider: WISAM GRIER Report Released Date/Time: Oct 04, 2023 05:25 PM Reporting Lab: [facility] [address] [place] [phone] Performing Lab: [place] [phone] COMPREHEN SIVE METABOLIC PANEL CREATININE [MASS/VOLUM E] IN SERUM OR PLASMA 0.98 mg/dL 0.7 - 1.3 11/20 Specimen Type: PLASMA Comment: No hemolysis noted. Ordering Provider: WISAM GRIER Report Released Date/Time: Oct 04, 2023 05:25 PM Reporting Lab: [facility] [address] [place] [phone] Performing Lab: [place] [phone] COMPREHEN SIVE METABOLIC PANEL UREA NITROGEN [MASS/VOLUM E] IN SERUM OR PLASMA 13.6 mg/dL 9.0 - 25.0 11/20 Specimen Type: PLASMA Comment: No hemolysis noted. Ordering Provider: WISAM GRIER Report Released Date/Time: Oct 04, 2023 05:25 PM Reporting Lab: [facility] [address] [facility] [address] Performing Lab: [facility] [address] [facility] [address] [facility] COMPREHEN SIVE METABOLIC PANEL GLUCOSE [MASS/VOLUM E] IN SERUM OR PLASMA 109 mg/dL 72 - 99 11/20 H Specimen Type: PLASMA Comment: No hemolysis noted. Ordering Provider: WISAM GRIER Report Released Date/Time: Oct 04, 2023 05:25 PM Reporting Lab: [facility] [address] [place] [phone] Performing Lab: [facility] [address] [place] [phone] [place] [address] COMPREHEN SIVE METABOLIC PANEL SODIUM [MOLES/VOLU ME] IN SERUM OR PLASMA 140 meq/L 136 - 145 11/20 Specimen Type: PLASMA Comment: No hemolysis noted. Ordering Provider: WISAM GRIER Report Released Date/Time: Oct 04, 2023 05:25 PM Reporting Lab: [facility] [address] [place] [phone] Performing Lab: [facility] [address] [facility] [address] [facility] COMPREHEN SIVE METABOLIC PANEL POTASSIUM [MOLES/VOLU ME] IN SERUM OR PLASMA 4.0 meq/L 3.5 - 5 11/20 Specimen Type: PLASMA Comment: No hemolysis noted. Ordering Provider: WISAM GRIER Report Released Date/Time: Oct 04, 2023 05:25 PM Reporting Lab: [facility] [address] [place] [phone] Performing Lab: [facility] [address] [facility] [address] [facility] COMPREHEN SIVE METABOLIC PANEL CHLORIDE [MOLES/VOLU ME] IN SERUM OR PLASMA 107 meq/L 98 - 107 11/20 Specimen Type: PLASMA Comment: No hemolysis noted. Ordering Provider: WISAM GRIER Report Released Date/Time: Oct 04, 2023 05:25 PM Reporting Lab: [facility] [address] [facility] [address] Performing Lab: [facility] [address] [facility] [phone] [place] [address] COMPREHEN SIVE METABOLIC PANEL CARBON DIOXIDE, TOTAL [MOLES/VOLU ME] IN SERUM OR PLASMA 24 meq/L 22 - 31 11/20 Specimen Type: PLASMA Comment: No hemolysis noted. Ordering Provider: WISAM GRIER Report Released Date/Time: Oct 04, 2023 05:25 PM Reporting Lab: [facility] [address] [place] [phone] Performing Lab: [facility] [address] [place] [phone] [place] [address] COMPREHEN SIVE METABOLIC PANEL CALCIUM [MASS/VOLUM E] IN SERUM OR PLASMA 9.2 mg/dL 8.4 - 10.4 11/20 Specimen Type: PLASMA Comment: No hemolysis noted. Ordering Provider: WISAM GRIER Report Released Date/Time: Oct 04, 2023 05:25 PM Reporting Lab: [facility] [address] [place] [phone] Performing Lab: [facility] [address] [place] [phone] [facility] COMPREHEN SIVE METABOLIC PANEL PROTEIN [MASS/VOLUM E] IN SERUM OR PLASMA 7.2 g/dL 6 - 8.6 11/20 Specimen Type: PLASMA Comment: No hemolysis noted. Ordering Provider: WISAM GRIER Report Released Date/Time: Oct 04, 2023 05:25 PM Reporting Lab: [facility] [address] [facility] [address] Performing Lab: [facility] [address] [place] [phone] [facility] COMPREHEN SIVE METABOLIC PANEL ALBUMIN [MASS/VOLUM E] IN SERUM OR PLASMA 3.8 g/dL 3.4 - 5 11/20 Specimen Type: PLASMA Comment: No hemolysis noted. Ordering Provider: WISAM GRIER Report Released Date/Time: Oct 04, 2023 05:25 PM Reporting Lab: [facility] [address] [place] [phone] Performing Lab: [facility] [address] [place] [phone] [facility] COMPREHEN SIVE METABOLIC PANEL BILIRUBIN.T OTAL [MASS/VOLUM E] IN SERUM OR PLASMA 0.9 mg/dL 0.2 - 1.2 11/20 Specimen Type: PLASMA Comment: No hemolysis noted. Ordering Provider: WISAM GRIER Report Released Date/Time: Oct 04, 2023 05:25 PM Reporting Lab: [facility] [address] [place] [phone] Performing Lab: [address] [phone] [facility] COMPREHEN SIVE METABOLIC PANEL ALKALINE PHOSPHATASE [ENZYMATIC ACTIVITY/VO LUME] IN SERUM OR PLASMA 71 U/L 40 - 150 11/20 Specimen Type: PLASMA Comment: No hemolysis noted. Ordering Provider: WISAM GRIER Report Released Date/Time: Oct 04, 2023 05:25 PM Reporting Lab: [facility] [address] [place] [phone] Performing Lab: [address] [phone] [facility] COMPREHEN SIVE METABOLIC PANEL ASPARTATE AMINOTRANSF ERASE [ENZYMATIC ACTIVITY/VO LUME] IN SERUM OR PLASMA 16 U/L 5 - 34 11/20 Specimen Type: PLASMA Comment: No hemolysis noted. Ordering Provider: WISAM GRIER Report Released Date/Time: Oct 04, 2023 05:25 PM Reporting Lab: [facility] [address] [place] [phone] Performing Lab: [address] [phone] [facility] COMPREHEN SIVE METABOLIC PANEL ALANINE AMINOTRANSF ERASE [ENZYMATIC ACTIVITY/VO LUME] IN SERUM OR PLASMA 12 U/L 8 - 40 11/20 Specimen Type: PLASMA Comment: No hemolysis noted. Ordering Provider: WISAM GRIER Report Released Date/Time: Oct 04, 2023 05:25 PM Reporting Lab: [facility] [address] [place] [phone] Performing Lab: [address] [phone] [place] [address] COMPREHEN SIVE METABOLIC PANEL GLOMERULAR FILTRATION RATE/1.73 SQ M.PREDICTED [VOLUME RATE/AREA] IN SERUM, PLASMA OR BLOOD BY CREATININE- BASED FORMULA (CKD-EPI 2020) 80.4 60 11/20 Specimen Type: PLASMA Comment: No hemolysis noted. Ordering Provider: WISAM GRIER Report Released Date/Time: Oct 04, 2023 05:25 PM Reporting Lab: [facility] [address] [facility] [address] Performing Lab: [facility] [address] [place] [phone] [facility] FREE T4 (STL) THYROXINE (T4) FREE [MASS/VOLUM E] IN SERUM OR PLASMA 0.90 ng/mL 0.7 - 1.48 11/20 Specimen Type: PLASMA No comment entered. Ordering Provider: WISAM GRIER Report Released Date/Time: Oct 04, 2023 05:25 PM Reporting Lab: [facility] [address] [facility] [address] Performing Lab: [facility] [address] [facility] [address] [facility] HGA1C HEMOGLOBIN A1C/HEMOGLO BIN.TOTAL IN BLOOD 5.6 4.0 - 6.0 11/20 Specimen Type: BLOOD No comment entered. Ordering Provider: WISAM GRIER Report Released Date/Time: Oct 04, 2023 05:25 PM Reporting Lab: [facility] [address] [facility] [address] Performing Lab: [facility] [address] [facility] [address] [facility] LIPID PANEL (STL) CHOLESTEROL [MASS/VOLUM E] IN SERUM OR PLASMA 69 mg/dL 0 - 200 11/20 Specimen Type: PLASMA Comment: No hemolysis noted. Ordering Provider: WISAM GRIER Report Released Date/Time: Oct 04, 2023 05:25 PM Reporting Lab: [facility] [address] [place] [phone] Performing Lab: [address] [address] [facility] LIPID PANEL (STL) TRIGLYCERID E [MASS/VOLUM E] IN SERUM OR PLASMA 92 mg/dL 0 - 150 11/20 Specimen Type: PLASMA Comment: No hemolysis noted. Ordering Provider: WISAM GRIER Report Released Date/Time: Oct 04, 2023 05:25 PM Reporting Lab: [facility] [address] [place] [phone] Performing Lab: [address] [phone] [facility] LIPID PANEL (STL) CHOLESTEROL IN LDL [MASS/VOLUM E] IN SERUM OR PLASMA BY CALCULATION 26 mg/dL 11/20 Specimen Type: PLASMA Comment: No hemolysis noted. Ordering Provider: WISAM GRIER Report Released Date/Time: Oct 04, 2023 05:25 PM Reporting Lab: [facility] [address] [place] [phone] Performing Lab: [facility] [address] [place] [phone] [facility] LIPID PANEL (STL) CHOLESTEROL IN HDL [MASS/VOLUM E] IN SERUM OR PLASMA 25 mg/dL 40 11/20 L Specimen Type: PLASMA Comment: No hemolysis noted. Ordering Provider: WISAM GRIER Report Released Date/Time: Oct 04, 2023 05:25 PM Reporting Lab: [facility] [place] [phone] Performing Lab: [address] PROST. SPECIFIC AG.(PB-ST L) PROSTATE SPECIFIC [...] Oct 04, 2023 05:25 PM Reporting Lab: [place] [address] Performing Lab: [address] TSH W/ REFLEX FT4 (STL) THYROTROPIN [UNITS/VOLU ME] IN SERUM OR PLASMA 4.294 u[IU]/ mL 0.47 - 5 11/20 Specimen Type: PLASMA No comment entered. Ordering Provider: WISAM GRIER Report Released Date/Time: Oct 04, 2023 05:25 PM Reporting Lab: [address] [phone] Performing Lab: [address] [phone] [place] [address] VITAMIN D, 25-HYDROX Y 25-HYDROXYV ITAMIN D3 [...] Oct 04, 2023 05:25 PM Reporting Lab: [place] [phone] Performing Lab: [address] [place] [address] [facility] FREE T4 THYROXINE (T4) FREE [MASS/VOLUM E] IN SERUM OR PLASMA 1.34 ng/mL 0.7 - 1.48 11/28 Specimen Type: SERUM No comment entered. Ordering Provider: WISAM GRIER Report Released Date/Time: Nov 19, 2022 04:37 PM Reporting Lab: [address] [phone] Performing Lab: [address] [address] [facility] HGA1C HEMOGLOBIN A1C/HEMOGLO BIN.TOTAL IN BLOOD 5.6 4.0 - 6.0 11/28 Specimen Type: BLOOD No comment entered. Ordering Provider: WISAM GRIER Report Released Date/Time: Nov 19, 2022 04:37 PM Reporting Lab: [address] [phone] Performing Lab: [address] [address] [facility] Vital Signs Combined list of inpatient and outpatient Vital Signs from Department of Defense and Veterans Affairs, ranging from 12 months to all on record, depending upon the facility. Vital Sign Value Date Comments Source SYSTOLIC BLOOD PRESSURE 128 11/19/2023 14:57:21 [facility] DIASTOLIC BLOOD PRESSURE 81 11/19/2023 14:57:21 [facility] PULSE OXIMETRY 96 11/19/2023 14:57:21 [facility] WEIGHT 197 11/19/2023 14:57:21 [facility] BMI 26 kg/m2 11/19/2023 14:57:21 [facility] PAIN 0 11/19/2023 14:57:21 [facility] TEMPERATURE 98.1 11/19/2023 14:57:21 [facility] PULSE 64 11/19/2023 14:57:[address] [facility] RES[facility]ATION 18 11/19/2023 14:57:21 [facility] Encounters Combined list of: 1) Encounters from [facility] facilities going backup to the last 18 months, not all [place] inpatient encounters are included; 2) Encounters from the [facility] Defense facilities going backup to 280 months. Location Location Details Encounter Type Encounter Number Reason For Visit Attending Provider ADM Date DC Date Status Disposition Source [facility] Outpatient Encounter [id number] 09/30 [facility] Outpatient Encounter [id number] 11/18 [facility] FEE [id number] Diagnos is: ICD-10- CM I25.10 Athscl heart disease of [place] coronar y artery w/o ang pctrs MARGUERITE PAEZ E 11/18 [facility] Outpatient Encounter [id number] 11/18 [facility] OFFICE O/P EST LOW 20 MIN [id number] Diagnos is: ICD-10- CM I25.10 Athscl heart disease of [place] coronar y artery w/o ang pctrs MARGUERITE PAEZ E 11/18 [facility] IMG RTA DETCJ/MNTR DS STAFF [id number] Diagnos is: ICD-10- CM Z13.5 Encount er for screeni ng for eye and ear disorde TAHIR Acuna 11/18 [facility] Outpatient Encounter [id number] Diagnos is: ICD-10- CM Z13.5 Encount er for screeni ng for eye and ear disorde rs [place] DOUGLASS R 11/20 [facility] Outpatient Encounter [id number] BASIM GRIER SHINE T 11/30 [facility] Social History Combined list of available smoking, tobacco, and other social history from Department of Defense and [facility] facilities. Social History Type Response Date Comment [facility] e Tobacco smoking status NHIS HI-TOBACCO NEVER USED 11/19/2023 [facility] History of tobacco use HI-TOBACCO FORMER USER 08/02/2022 [facility] History of tobacco use QUIT TOBACCO >7 YEARS AGO 06/20/2006 [facility] History of tobacco use CURRENT NON-TOBACCO USER-HX OF USE 08/16/2005 [facility] History of tobacco use CURRENT NON-TOBACCO USER-HX OF USE 04/06/2004 [facility] Plan of Care List of future care activities from Department of [facility] facilities. Additional future care activities may be listed in the Assessment and Plan section. Date/Time Care Activity Care Activity Detail Facili ty 09/28/2024 [facility]BULATORY - MEDICINE [facility]
--- OUTSIDE RECORDS SUMMARY | 2024-09-08 01:14 | XMS_ITS | Encounter Summary ---
Author Organization [facility] Address [address] [place] [address] Care Team Providers Care International Marketing Intern Name Role Phone Rosanne Santana MD Primary Care Provider [phone] Encounter Details Date Type Department Care Team (Late st Contact Info) Description 10/23/[address] [facility] Support Serv. (Adt Cardiology[facility]) [address] 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
--- OUTSIDE RECORDS SUMMARY | 2024-09-08 01:14 | XMS_ITS | Clinical Summary ---
Author Organization [facility] Address [address] 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 Gender Identity Not on file Sexual Orientation Not on file Plan of Treatment Health Maintenance Due Date Last Done Comments DTAP/TDAP/TD VACCINES (1 - Tdap) 02/01/1967 PNEUMOCOCCAL VACCINE 50+ YEARS (1 of 1 - PCV) 02/01/19 98 ZOSTER VACCINE (1 of 2) 02/01/1998 RSV VACCINE (60+ or ) (1 - 1-dose 75+ series) 02/01/2023 INFLUENZA VACCINE (#1) 2023 Insurance [facility] BLUE ACCESS/TRUE BLUE PPO Care Teams Career Technical Education Instructor Relationship Specialty Start Date End Date Rosanne Santana MD [address] [place] [place] [address] PCP - General 10/24/03
--- OUTSIDE RECORDS SUMMARY | 2024-09-08 01:14 | XMS_ITS | Encounter Summary ---
Author Organization [facility] Address [address] [place] [address] Care Team Providers Care Prick Stitcher Name Role Phone Rosanne Santana MD Primary Care Provider [phone] Encounter Details Date Type Department Care Team (Latest Contact Info) Description 09/24/2007 [facility]patient [facility] Rosanne Santana MD [address] 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 [place], [place] [address] Admit Date: 09/24/2007 MITCHELL RODRIGUEZ Sex: M Admit Prov: ROSANNE SANTANA Date: 1950 Primary Care Prov: CMRN: [id number] Room: [facility] SSN: [id number] IMAGING SERVICES Ordering Prov: N/A Interpretation Date [...] encounter Visit Diagnoses Diagnosis Coronary atherosclerosis of [place] coronary artery documented in this encounter Care Teams Prick Stitcher Relationship Specialty Start Date End Date Rosanne Santana MD [address] [place] [place] [address] PCP - General 10/24/03 documented as of this encounter
--- OUTSIDE RECORDS SUMMARY | 2024-09-08 01:14 | XMS_ITS | Encounter Summary ---
Author Organization [facility] Address [address] [place] [address] Care Team Providers Care Shell Shop Supervisor Name Role Phone Rosanne Santana MD Primary Care Provider [phone] Encounter Details Date Type Department Care Team (Latest Contact Info) Description 01/17/2003 Outpatient [facility] [address] [place] [address] & [place] [address] Rosanne Santana MD [address] [place] [address] PURE HYPERCHOLESTEROLEM (Primary Dx) Social History Tobacco Use Types Packs/Day Years Used Date Smoking Tobacco: Never Assessed Sex and Gender Information Value Date Recorded Sex Assigned at Not on file 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
--- OUTSIDE RECORDS SUMMARY | 2024-09-08 01:14 | XMS_ITS | Encounter Summary ---
Author Organization [facility] Address [address] [place] [address] Care Team Providers Care Scallop Cutter Name Role Phone Rosanne Santana MD Primary Care Provider [phone] Encounter Details Date Type Department Care Team (Latest Contact Info) Description 12/03/2001 Outpatient Historical [facility] Rosanne Sanchez MD 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
--- OUTSIDE RECORDS SUMMARY | 2024-09-08 01:14 | XMS_ITS | Encounter Summary ---
Author Organization [facility] Address [address] [place] [address] Care Team Providers Care Perianesthesia Nurse Name Role Phone Rosanne Santana MD Primary Care Provider [phone] Encounter Details Date Type Department Care Team (Late st Contact Info) Description 05/16/[address] [facility] [address] 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 [place] [address] PCP - General 10/24/03 documented as of this encounter
--- OUTSIDE RECORDS SUMMARY | 2024-09-08 01:14 | XMS_ITS | Encounter Summary ---
Author Organization [facility] Address [address] [place] [address] Care Team Providers Care Construction Driller Name Role Phone Rosanne Santana MD Primary Care Provider [phone] Encounter Details Date Type Department Care Team (Late st Contact Info) Description 12/02/2001 [facility] [address] 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
--- OUTSIDE RECORDS SUMMARY | 2024-09-08 01:14 | XMS_ITS | Encounter Summary ---
Author Organization [facility] Address [address] [place] [address] Care Team Providers Care Mobile Lounge Driver Or Operator Name Role Phone Rosanne Santana MD Primary Care Provider [phone] Encounter Details Date Type Department Care Team (Latest Contact Info) Description 05/16/2006 Outpatient [facility] Rosanne Santana MD [address] [place] [address] AMI Inferolateral Wall (CMS/HCC) (Primary Dx) Social History Tobacco Use Types Packs/Day Years Used Date Smoking Tobacco: Never Assessed Sex and Gender Information Value Date Recorded Sex Assigned at Not on file Legal 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 Male 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 Gender Identity Not on file Sexual Orientation Not on file documented as of this encounter Plan of Treatment Not on file documented as of this encounter Visit Diagnoses Diagnosis Acute myocardial infarction of inferolateral wall, episode of care unspecified (CMS/HCC)- Primary Acute myocardial infarction of inferolateral wall, episode of care unspecified documented in this encounter Care Teams Mobile Lounge Driver Or Operator Relationship Specialty Start Date End Date Rosanne Santana MD [address] [place] [address] [place] [address] PCP - General 10/24/03 documented as of this encounter
--- OUTSIDE RECORDS SUMMARY | 2024-09-08 01:14 | XMS_ITS | Encounter Summary ---
Author Organization [facility] Address [address] [place] [address] Care Team Providers Care Real Estate Marketing Coordinator Name Role Phone Rosanne Santana MD Primary Care Provider [phone] Encounter Details Date Type Department Care Team (Late st Contact Info) Description 02/13/2006 Outpatient Historical [facility] Support Serv. 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
--- OUTSIDE RECORDS SUMMARY | 2024-09-08 01:14 | XMS_ITS | Encounter Summary ---
Author Organization [facility] Address [address] [place] [address] Care Team Providers Care Order Planner Name Role Phone Rosanne Santana MD Primary Care Provider [phone] Encounter Details Date Type Department Care Team (Late st Contact Info) Description 12/02/2001 [facility]patient [facility] ([facility]) [address] 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
--- OUTSIDE RECORDS SUMMARY | 2024-09-08 01:14 | XMS_ITS | Encounter Summary ---
Author Organization [facility] Address [address] [place] [address] Care Team Providers Care Tail Sawyer Name Role Phone Rosanne Santana MD Primary Care Provider [phone] Encounter Details Date Type Department Care Team (Late st Contact Info) Description 12/02/2001 Outpatient [facility] ([facility]) [address] [place] [address] Rosanne Santana MD [address] [place] [address] [place] [address] Social History Tobacco Use Types Packs/Day Years Used Date Smoking Tobacco: Never Assessed Sex and Gender Information Value Date Recorded Sex Assigned at Not on file Legal Sex Male 4:23 AM BRONC BREAKER Gender Identity Not on file Sexual Orientation Not on file documented as of this encounter Plan of Treatment Not on file documented as of this encounter Visit Diagnoses Not on filedocumented in this encounter Care Teams Tail Sawyer Relationship Specialty Start Date End Date Rosanne Santana MD [address] [place] [address] [place] [address] PCP - General 10/24/03 documented as of this encounter
--- OUTSIDE RECORDS SUMMARY | 2024-09-08 01:14 | XMS_ITS | Referral Summary ---
Author Organization [facility] [address] Address [address] [place] [address] Care Team Providers Care Assembler Wire Group Name Role Phone Nikky Reyes MD Primary Care Provider Venkat Vivar DO Unavailable Kwaku Martin MD Unavailable [phone] Richard Hargrove MD Unavailable [phone] Adelso Quiñones MD Unavailable [phone] Encounters Date Type Department Care Team Description 09/07/2024 9:30 AM CDT - 09/07/2024 11:59 PM CDT Hospital Encounter [facility] Medical Office Building [address] [place] [phone] Malignant neoplasm of urinary bladder, unspecified site (HCC) Discharge Disposition: Discharge to home or self care 06/14/2024 10:15 AM CDT Lab [facility] at [address] [address] Malignant neoplasm of urinary bladder, unspecified site (HCC) 06/14/2024 10:45 AM CDT Office Visit [facility] Oncology [address] [place] [address] [address] [place] [phone] Venkat Vivar DO Malignant neoplasm of urinary bladder, unspecified site (HCC) (Primary Dx) 06/09/2024 Results Follow-Up [facility] On[facility] [address] [facility] [address] [place] [address] Laura Arias, RN CT Chest Abdomen Pelvis W Contrast from Last 3 Months Allergies No known [...] file Legal Sex Male 2:03 AM AUTOMATIC CLIPPER AND STRIPPER Gender Identity Not on file Sexual Orientation [...] 10:06 AM CDT Height 185.4 cm (6' 1) 02/25/2024 12:1 3 AM AUTOMATIC CLIPPER [employer] STRIPPER Body Mass Index 26.49 02/25/2024 12:13 AM AUTOMATIC CLIPPER AND STRIPPER Plan of Treatment Not on file Procedures Procedure Name Priority Date/Time Associated Diagnosis Comments POCT CREATININE FOR CONTRAST EVALUATION Routine 09/07/2024 10:07 AM CDT EGFR Routine 06/14/2024 9:54 AM CDT Malignant [...] unspecified site (HCC) from Last 3 Months Results * POCT creatinine for contrast evaluation (09/07/2024 10:07 AM CDT) Creatinine POC 1.00 0.80 - 1.30 mg/dL Comment:Testing performed by : [facility], [address] [place] [address]., [address] Blood 09/07/2024 10:0 7 AM CDT 09/07/2024 10:07 AM CDT Venkat Vivar DO POINT OF CARE TEST ORDERABLE S Final Result [facility] [address] [facility] Department [place] [address] * eGFR (06/14/2024 9:54 AM CDT) eGFR [...] last reviewed 2021. Testing performed by: [address] [address] Blood 06/14/2024 9:54 AM CDT 06/14/2024 9:56 AM CDT Venkat Vivar DO LAB BLOOD ORDERABLES Final R esult JAIME [address] [facility] Department [place] [address] * Differential, auto (06/14/2024 9:54 AM CDT) Neutrophil abs 3.0 1.5 - 6.5 K/cumm Comment:Testing performed by : [address] [address] Imm gran abs 0.0 0.0 - 0.1 K/cumm JAIME Comment:Testing performed by : [address] [address] Lymphocyte abs 1.0 0.8 - 3.3 K/cumm JAIME Comment:Testing performed by : [address] [address] Monocyte abs 0.6 0.2 - 0.8 K/cumm JAIME Comment:Testing performed by : [address] [address] Eosinophil abs 0.1 0.0 - 0.5 K/cumm JAIME Comment:Testing performed by : [address] [address] Basophil abs 0.0 0.0 - 0.1 K/cumm JAIME Comment:Testing performed by : [address] [address] Neutrophil pct 62.3 % JAIME Comment: Interpretive Data Percent cell count reference ranges are not reported, since discordance with absolute values may lead to misinterpretation of CBC data. Current Interpretive Data was last revised on 2017. Testing performed by: [address] [address] Imm gran pct 0.2 % JAIME Comment: Interpretive Data Percent cell count reference ranges are not reported, since discordance with absolute values may lead to misinterpretation of CBC data. Current Interpretive Data was last revised on 2017. Testing performed by: [address] [address] Lymphocyte pct 21.2 % [facility] Comment: Interpretive Data Percent cell count reference ranges are not reported, since discordance with absolute values may lead to misinterpretation of CBC data. Current Interpretive Data was last revised on 2017. Testing performed by: [address] [address] Monocyte pct 13.2 % [facility] Comment: Interpretive Data Percent cell count reference ranges are not reported, since discordance with absolute values may lead to misinterpretation of CBC data. Current Interpretive Data was last revised on 2017. Testing performed by: [address] [address] Eosinophil pct 2.5 % [facility] Comment: Interpretive Data Percent cell count reference ranges are not reported, since discordance with absolute values may lead to misinterpretation of CBC data. Current Interpretive Data was last revised on 2017. Testing performed by: [address] [address] Basophil pct 0.6 % [facility] Comment: Interpretive Data Percent cell count reference ranges are not reported, since discordance with absolute values may lead to misinterpretation of CBC data. Current Interpretive Data was last revised on 2017. Testing performed by: [address] [address] Blood 06/14/2024 9:54 AM CDT 06/14/2024 9:56 AM CDT us Venkat Vivar DO LAB BLOOD ORDERABLES Final R esult JAIME [address] [facility] Department [place] [address] * (ABNORMAL) CBC with auto differential (06/14/2024 9:54 AM CDT) WBC 4.9 3.8 - 9.9 K/cumm Comment:Testing performed by : [address] [address] Hgb 12.9(L) 13.0 - 17.5 g/dL JAIME Comment:Testing performed by : [address] [address] Hct 37.9(L) 38.9 - 50.3 % JAIME Comment:Testing performed by : [address] [address] Plt 168 150 - 400 K/cumm JAIME Comment:Testing performed by : [address] [address] MPV 9.1 9.1 - 12.3 fL JAIME Comment:Testing performed by : [address], [address] RBC 4.06(L) 4.30 - 5.80 M/cumm JAIME Comment:Testing performed by : [address], [address] MCV 93.3 81.3 - 96.4 fL JAIME Comment:Testing performed by : [address] [address] MCH 31.8 27.1 - 33.3 pg JAIME Comment:Testing performed by : [address] [address] MCHC 34.0 32.3 - 35.7 g/dL JAIME Comment:Testing performed by : [address], [address] RDW CV 14.0 11.1 - 14.9 % JAIME Comment:Testing performed by : [address] [address] RDW SD 47.6 35.7 - 48.1 fL JAIME Comment:Testing performed by : [address], [address] NRBC abs 0.00 0.00 - 0.01 K/cumm JAIME Comment:Testing performed by : [address], [address] Blood 06/14/2024 9:54 AM CDT 06/14/2024 9:56 AM CDT us Venkat Vivar DO LAB BLOOD ORDERABLES Final R esult JAIME PINEDA [address] [facility] Department [place] [address] * Comprehensive metabolic panel (06/14/2024 9:54 AM CDT) Sodium 138 135 - 145 mmol/L Comment:Testing performed by : [address] [address] Potassium, pl 4.5 3.3 - 4.9 mmol/L JAIME Comment:Testing performed by : [address] [address] Chloride 105 97 - 110 mmol/L JAIME Comment:Testing performed by : [address] [address] CO2 27 22 - 32 mmol/L JAIME Comment:Testing performed by : [address] [address] Anion gap 6 2 - 15 mmol/L JAIME Comment:Testing performed by : [address] [address] BUN 13 6 - 25 mg/dL JAIME Comment:Testing performed by : [address] [address] Creatinine 0.80 0.80 - 1.30 mg/dL JAIME Comment:Testing performed by : [address] [address] Glucose 117 70 - 199 mg/dL JAIME [...] was last revised 2022. Testing performed by: [facility], [address] [place] [address]., [address] Calcium 9.2 8.5 - 10.3 mg/dL JAIME Comment:Testing performed by : [address] [address] Bilirubin, total 0.4 0.1 - 1.2 mg/dL JAIME Comment:Testing performed by : [address] [address] Protein, pl 7.2 6.5 - 8.5 g/dL JAIME Comment:Testing performed by : [address] [address] Albumin 4.1 3.5 - 5.0 g/dL JAIME Comment:Testing performed by : [address] [address] Alk phos 73 40 - 130 Units/L JAIME Comment:Testing performed by : [address] [address] ALT 18 7 - 55 Units/L JAIME Comment:Testing performed by : [address] [address] AST 16 10 - 50 Units/L JAIME Comment:Testing performed by : [address] [address] Blood 06/14/2024 9:54 AM CDT 06/14/2024 9:56 AM CDT Venkat Vivar DO LAB BLOOD ORDERABLES Final R esult [facility] [address] [facility] Department [place] [address] from Last 3 Months Insurance MEDICARE [employer] S[employer]IOR SUPPLEMENT MEDICARE [facility] MED[employer]ARE SUPPLEMENT MED[employer]ARE [employer] MEDICARE SUPPLEMENT Care Teams Assembler Wire Group Relationship Specialty Start Date End Date Nikky Reyes MD [facility] [place] [address] PCP - General Family Practice 12/15/23 Venkat Vivar DO [address] [place] [address] MEDICAL ONCOLOGY, [address] [address] Medical Oncologist/[employer] Vat Worker Hematology and Oncology 12/15/23 Kwaku Martin MD [address] [place] [address] MEDICAL ONCOLOGY, [address] [id number] Consulting Physician Urology 12/15/23 Richard Hargrove MD [address] [place] [id number] Radiation Oncologist Radiation Oncology 01/08/24 Adelso Qu[place] [address] [place] [address] Surgeon Urology 01/22/24
--- OUTSIDE RECORDS SUMMARY | 2024-09-08 01:14 | XMS_ITS | Encounter Summary ---
Author Organization [facility] Healthcare Address [address] [place] [address] Care Team Providers Care Grind Operator Name Role Phone Nikky Reyes MD Primary Care Provider Venkat Vivar DO Unavailable [phone] Kwaku Martin MD Unavailable [phone] Richard Hargrove MD Unavailable [phone] Adelso Quiñones MD Unavailable [phone] Reason for Referral * MRI/CAT/PET Scan (Routine) - Closed Specialty Diagnoses / Procedures Referred By Leatha mejia Referred To Contact Radiology Diagnoses Malignant neoplasm of urinary bladder, unspecified site (HCC) Procedures CT Chest Abdomen Pelvis W Contrast Venkat Vivar DO [facility] [address] Phone: tel: fax: [address] [phone] Referral ID Status Reason Start Date Expiration Date Visits Re quested Visits Authorized [id number] Closed 06/14/2024 07/14/2025 1 1 Reason for Visit * MRI/CAT/PET Scan (Routine) - Closed Specialty Diagnoses / Procedures Referred By Leatha mejia Referred To Contact Radiology Diagnoses Malignant neoplasm of urinary bladder, unspecified site (HCC) Procedures CT Chest Abdomen Pelvis W Contrast Venkat Vivar DO [address] [address] Phone: tel: fax: [address] [phone] Referral ID Status Reason Start Date Expiration Date Visits Re quested Visits Authorized [id number] Closed 06/14/2024 07/14/2025 1 1 Encounter Details Date Type Department Care Team (Latest Contact Info) Description 09/07/2024 9:30 AM CDT - 09/07/2024 11:59 PM CDT Hospital Encounter [facility] [place] [address] [place] [address] [place] [address] Malignant neoplasm of urinary bladder, unspecified [...] on file 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 Gender Identity Not on file Sexual [...] tablet (50 mcg total) by mouth 11/19/2023 metoclopramide (REGLAN) 10 mg tablet TAKE 1 TABLET BY MOUTH THREE TIMES A DAY 90 tablet 04/05/2024 metoprolol XL (TOPROL-XL) 25 mg extended release [...] Discharge Disposition Disposition Code Departure Means Destination Discharge to home or self care documented in this encounter Plan of Treatment Pending Results Name Type Priority Associated Diagnoses Date /Time CT Chest Abdomen Pelvis W Contrast Imaging Schedule Routine, Read Routine (OP Routine) Malignant neoplasm of urinary bladder, unspecified site (HCC) 09/07/2024 10:19 AM CDT Scheduled Orders Name Type Priority Associated Diagnoses Orde r Schedule CT Chest Abdomen Pelvis W Contrast Imaging Schedule Routine, Read Routine (OP Routine) Malignant neoplasm of urinary bladder, unspecified site (HCC) Once for 1 Occurrences starting 09/07/2024 until 09/07/2024 documented as of this encounter Procedures Procedure Name Priority Date/Time Associated Diagnosis Comments POCT CREATININE FOR CONTRAST EVALUATION Routine 09/07/2024 10:07 AM CDT documented in this encounter Results * POCT creatinine for contrast evaluation (09/07/2024 10:07 AM CDT) Creatinine POC 1.00 0.80 - 1.30 mg/dL Comment:Testing performed by : [facility], [address] [place] [address], [place]., [address] Blood 09/07/2024 10:0 7 AM CDT 09/07/2024 10:07 AM CDT Venkat Vivar DO POINT OF CARE TEST ORDERABLE S Final Result JAIME [address] [facility] [place] [address] documented in this encounter Visit Diagnoses Diagnosis Malignant neoplasm of urinary bladder, unspecified site (HCC) documented in this encounter Administered Medications Inactive Administered Medications - up to 3 most recent administrations Medication Order MAR Action Action Date Dose Rate Site ioversoL (OPTIRAY 350) syringe 100 mL 100 mL, intravenous, Once in imaging, contrast, Starting on Tu09/07/24 at 1031, For 1 dose Contrast Given 09/07/2024 10:32 AM CDT 100 mL documented in this encounter Orders Medications Ordered That Lalit ht Not Have Been Administered Count Last Ordered Date First Ordered Date ioversoL (OPTIRAY 350) syringe 100 mL 1 12/2024 documented in this encounter Care Teams Grind Operator Relationship Specialty [place] [address] [place] [address] 2 [place] [address] PCP - General Family Practice 12/15/23 Venkat Vivar DO [address] [place] [address] MEDICAL ONCOLOGY, [address] [id number] Medical Oncologist/Costumed Character Entertainer Hematology and Oncology 12/15/23 Kwaku Martin MD [address] [place] [address] MEDICAL ONCOLOGY, [facility] [address] [place], [place] [phone] Consulting Physician Urology 12/15/23 Richard Hargrove MD [address] [place] [phone] Radiation Oncologist Radiation Oncology 01/08/24 Adelso Quiñones [place] [address] [place] [address] Surgeon Urology 01/22/24 documented as of this encounter
--- OUTSIDE RECORDS SUMMARY | 2024-09-08 01:14 | XMS_ITS | Encounter Summary ---
Author Organization [facility] Address [address] [place] [address] Care Team Providers Care Instrument Repair Supervisor Name Role Phone Rosanne Santana MD Primary Care Provider [phone] Encounter Details Date Type Department Care Team (Latest Contact Info) Description 05/21/2006 Outpatient Historical HIS [facility] Rosanne Sanchez MD [address] [place] [address] Coronary Atherosclerosis of [place] Coronary Artery (Primary Dx) Social History Tobacco Use Types Packs/Day Years Used Date Smoking Tobacco: Never Assessed Sex and Gender Information Value Date Recorded Sex Assigned at Not on file Legal Sex Male 4:23 AM SWEET PICKLE MAKER Gender Identity Not on file Sexual Orientation Not on file documented as of this encounter Plan of Treatment Not on file documented as of this encounter Procedures Procedure Name Priority Date/Time Associated Diagnosis Comments CBC WITH DIFFERENTIAL Routine 05/21/2006 7:05 AM SWEET PICKLE MAKER CBC WITH DIFFERENTIAL Routine 05/21/2006 7:05 AM SWEET PICKLE MAKER PTT Routine 05/21/2006 7:05 AM SWEET PICKLE MAKER PROTIME-INR Routine 05/21/2006 7:05 AM SWEET PICKLE MAKER BASIC METABOLIC PANEL Routine 05/21/2006 7:05 AM SWEET PICKLE MAKER documented in this encounter Results * CBC WITH DIFFERENTIAL (05/21/2006 7:05 AM SWEET PICKLE MAKER) NEUTROPHILS 61 45 - 70 % INTERFAC [...] 0.20 K/uL INTERFACE SYSTEM 05/21/2006 7:05 AM SWEET PICKLE MAKER Rosanne Santana MD HEMATOLOGY ORDERABLES Edited Performing Organization Address City/[facility] Co de Phone Number INTERFACE SYSTEM Refer to clinic/hospital department * CBC WITH DIFFERENTIAL (05/21/2006 7:05 AM SWEET PICKLE MAKER) WBC 5.9 4.0 - 9.8 K/uL INTERFACE [...] 12.4 fL INTERFACE SYSTEM 05/21/2006 7:05 AM SWEET PICKLE MAKER us Rosanne Santana MD HEMATOLOGY ORDERABLES Edited Performing Organization Address City/State/[facility] Co de Phone Number INTERFACE SYSTEM Refer to clinic/hospital department * PTT (05/21/2006 7:05 AM SWEET PICKLE MAKER) PTT 28.0 24.4 - 36.4 Seconds INTERFACE SYSTEM Comment: PTT Therapeutic Range: Heparin Level PTT (seconds) <0.10 units/mL <53 0.10 - 0.30 units/mL 53 - 67 0.30 - 0.70 units/mL* 67 - 95* 0.70 - 1.00 units/mL 95 - 116 *corresponds to therapeutic range for unfractionated heparin 05/21/2006 7:05 AM SWEET PICKLE MAKER Rosanne Santana MD HEMATOLOGY ORDERABLES Edited Performing Organization Address [facility] Phone Number INTERFACE SYSTEM Refer to clinic/hospital department * PROTIME-INR (05/21/2006 7:05 AM SWEET PICKLE MAKER) PROTIME 14.1 12.7 - 15.1 Seconds INTERFACE SYSTEM INR 1.1 0.9 - 1.1 INTERFACE SYSTEM Comment: INR Therapeutic Range: Adult: 2.0 - 3.0 for pulmonary embolism or prophylaxis against venous thrombosis or systemic embolization. 2.0 - 3.0 for patients with tissue heart valves. 2.5 - 3.5 for patients with mechanical heart valves or post OK. Pediatric (12 years and under): 1.5 - 3.0 Although the target range in children is not well established , INR values of 1.5 - 3.0 are recommended for most patients. Higher values have been used in children with prosthetic cardiac valves and hereditary clotting disorders. (<3 days) therapeutic ranges have not been established. 05/21/2006 7:05 AM SWEET PICKLE MAKER Rosanne Santana MD HEMATOLOGY ORDERABLES Edited Performing Organization Address [facility] de Phone Number INTERFACE SYSTEM Refer to clinic/hospital department * (ABNORMAL) BASIC METABOLIC PANEL (05/21/2006 7:05 AM SWEET PICKLE MAKER) GLUCOSE 104(H) 65 - 99 mg/dL INTERFACE [...] and non- Americans is available on the [facility] Intranet at: [email or web address] Select: Lab Policies and Procedures Select: Reference Ranges - GFR 05/21/2006 7:05 AM SWEET PICKLE MAKER us Rosanne Santana MD CHEMISTRY ORDERABLES Edited INTERFACE SYSTEM Refer to clinic/hospital department documented in this encounter Visit Diagnoses Diagnosis Coronary atherosclerosis of [place] coronary artery- Primary documented in this encounter Care Teams Instrument Repair Supervisor Relationship Specialty Start Date End Date Rosanne Santana MD [address] [place] [address] PCP - General 10/24/03 documented as of this encounter
--- OUTSIDE RECORDS SUMMARY | 2024-09-08 01:14 | XMS_ITS | Encounter Summary ---
Author Organization [employer] Address [address] [place] [address] Care Team Providers Care Supervisor Cook Room Name Role Phone Rosanne Santana MD Primary Care Provider [phone] Encounter Details Date Type Department Care Team (Latest Contact Info) Description 10/22/2004 Inpatient Historical HIS PATIENT IN A BED Jono Scherer MD [address] [place] [address] POST WALL FIRST EPISODE CARE ([facility]) (Primary Dx) Social History Tobacco Use Types Packs/Day Years Used Date Smoking Tobacco: Never Assessed Sex and Gender Information Value Date Recorded Sex Assigned at Not on file Legal Sex 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 Co de Phone Number INTERFACE SYSTEM Refer to clinic/hospital department * MAGNESIUM LEVEL (10/25/2004 6:44 AM CDT) MAGNESIUM 1.9 1.5 - 2.5 mg/dL INTERFACE SYSTEM 10/25/2004 6:44 AM CDT us Rosanne Santana MD CHEMISTRY ORDERABLES Final Res ult Performing Organization Address City/[facility] Co de Phone Number INTERFACE SYSTEM [...] ORDERABLES Final Res ult Performing Organization Address [facility] Phone Number INTERFACE SYSTEM Refer to clinic/hospital department * (ABNORMAL) CK TOTAL, RELATIVE INDEX (10/24/2004 7:01 AM CDT) CARDIAC RELATIVE INDEX 4.1(H) <=4.0 INTERFACE SYSTEM CK 796(H) 10 - 170 U/L INTERFACE SYSTEM 10/24/2004 7:01 AM CDT Kan Atkinson MD CHEMISTRY ORDERABLES Final Res ult Performing Organization Address [facility] Phone Number INTERFACE SYSTEM Refer to clinic/hospital department * (ABNORMAL) CKMB W/REFLEX CK (10/24/2004 7:01 AM CDT) Pathologist [facility] CKMB 33.0(AA) <=6.7 ng/mL INTERFACE SYSTEM Comment:Persistent abnormal result CKMB INTERP See Below INTERFAC E SYSTEM Comment:Elevated CKMB,Consis tent with Myocardial Injury 10/24/2004 7:01 AM CDT Kan Atkinson MD CHEMISTRY ORDERABLES Final Res ult Performing Organization Address [facility] Phone Number INTERFACE SYSTEM Refer to clinic/hospital department * (ABNORMAL) CBC WITH DIFFERENTIAL (10/24/2004 4:42 AM CDT) Pathologist [facility] NEUTROPHILS 71(H) 45 - 70 % INTERFAC [...] ORDERABLES Final Resu lt Performing Organization Address [facility] Phone Number INTERFACE SYSTEM Refer [...] ORDERABLES Final Resu lt Performing Organization Address [facility] Number INTERFACE SYSTEM Refer to clinic/hospital department * MAGNESIUM LEVEL (10/24/2004 4:42 AM CDT) MAGNESIUM 1.9 1.5 - 2.5 mg/dL INTERFACE SYSTEM 10/24/2004 4:42 AM CDT Alba Huff CHEMISTRY ORDERABLES Final Resul t Performing Organization Address [facility] Phone Number INTERFACE SYSTEM Refer [...] mmol/L INTERFACE SYSTEM 10/24/2004 4:42 AM CDT [employer] CHEMISTRY ORDERABLES Final Resul t Performing Organization Address City/[facility] Phone Number INTERFACE SYSTEM Refer to clinic/hospital department * (ABNORMAL) CK TOTAL, RELATIVE INDEX (10/23/2004 1:45 PM CDT) CARDIAC RELATIVE INDEX 8.0(H) <=4.0 INTERFACE SYSTEM CK 1,462(H) 10 - 170 U/L INTERFACE SYSTEM 10/23/2004 1:45 PM CDT [employer] CHEMISTRY ORDERABLES Final Resul t Performing Organization Address [facility] Phone Number INTERFACE SYSTEM Refer to clinic/hospital department * (ABNORMAL) CKMB W/REFLEX CK (10/23/2004 1:45 PM CDT) CKMB 117.0(AA) <=6.7 ng/mL INTERFACE SYSTEM Comment:Persistent abnormal result CKMB INTERP See Below INTERFAC E SYSTEM Comment:Elevated CKMB,Consis tent with Myocardial Injury 10/23/2004 1:45 PM CDT [employer] CHEMISTRY ORDERABLES Final Resul t Performing Organization Address [facility] Phone Number INTERFACE SYSTEM Refer to [...] K/uL INTERFACE SYSTEM 10/23/2004 1:45 PM CDT [employer] HEMATOLOGY ORDERABLES Final Resu lt Performing Organization Address [facility] Phone Number INTERFACE SYSTEM Refer [...] fL INTERFACE SYSTEM 10/23/2004 1:45 PM CDT [employer] HEMATOLOGY ORDERABLES Final Resu lt Performing Organization Address [facility] Phone Number INTERFACE SYSTEM Refer to [...] mmol/L INTERFACE SYSTEM 10/23/2004 1:45 PM CDT [employer] CHEMISTRY ORDERABLES Final Resul t Performing Organization Address [facility] Phone Number INTERFACE SYSTEM Refer to clinic/hospital department * MAGNESIUM LEVEL (10/23/2004 1:45 PM CDT) Pathologist [facility] MAGNESIUM 2.2 1.5 - 2.5 mg/dL INTERFACE SYSTEM 10/23/2004 1:45 PM CDT [employer] CHEMISTRY ORDERABLES Final Resul t Performing Organization Address [facility] Phone Number INTERFACE SYSTEM Refer to clinic/hospital department * (ABNORMAL) TROPONIN (W/REFLEX CKMB/CK) (10/23/2004 1:45 PM CDT) Pathologist [facility] TROPONIN T 5.78(AA) <=0.03 ng/mL INTERFACE SYSTEM Comment:Persistent abnormal result TROPONIN T INTERP See Below INTERFACE SYSTEM Comment:Elevated Troponin-T, Consistent with Myocardial Injury 10/23/2004 1:45 PM CDT [employer] ORDERABLES Final Resul t Performing Organization Address [facility] Phone Number INTERFACE SYSTEM Refer to clinic/hospital department * (ABNORMAL) CBC WITH DIFFERENTIAL (10/23/2004 11:27 AM CDT) Pathologist [facility] NEUTROPHILS 77(H) 45 - 70 % INTERFAC [...] ORDERABLES Final R esult Performing Organization Address City/[facility] Phone Number INTERFACE SYSTEM Refer to [...] ORDERABLES Final R esult Performing Organization Address City/[facility] Co de Phone Number INTERFACE SYSTEM [...] ORDERABLES Final Re sult Performing Organization Address [facility] Phone Number INTERFACE SYSTEM Refer to clinic/hospital department * (ABNORMAL) CK TOTAL, RELATIVE INDEX (10/23/2004 11:27 AM CDT) CARDIAC RELATIVE INDEX 8.5(H) <=4.0 INTERFACE SYSTEM CK 1,062(H) 10 - 170 U/L INTERFACE SYSTEM 10/23/2004 11:2 7 AM CDT Jono Scherer MD CHEMISTRY ORDERABLES Final Re sult Performing Organization Address [facility] Phone Number INTERFACE SYSTEM Refer to clinic/hospital department * (ABNORMAL) CKMB W/REFLEX CK (10/23/2004 11:27 AM CDT) CKMB 90.5(AA) <=6.7 ng/mL INTERFACE SYSTEM Comment:Persistent abnormal result CKMB INTERP See Below INTERFAC E SYSTEM Comment:Elevated CKMB,Consis tent with Myocardial Injury 10/23/2004 11:2 7 AM CDT us Jono Scherer MD CHEMISTRY ORDERABLES Final Re sult Performing Organization Address [facility] Phone Number INTERFACE SYSTEM Refer to clinic/hospital department * (ABNORMAL) TROPONIN (W/REFLEX CKMB/CK) (10/23/2004 11:27 AM CDT) TROPONIN T 3.92(AA) <=0.03 ng/mL INTERFACE SYSTEM Comment:Persistent abnormal result TROPONIN T INTERP See Below INTERFACE SYSTEM Comment:Elevated Troponin-T, Consistent with Myocardial Injury 10/23/2004 11:2 7 AM CDT Jono Scherer MD CHEMISTRY ORDERABLES Final Re sult Performing Organization Address [facility] Phone Number INTERFACE SYSTEM Refer to clinic/hospital department * MAGNESIUM LEVEL (10/23/2004 2:44 AM CDT) MAGNESIUM 1.8 1.5 - 2.5 mg/dL INTERFACE SYSTEM 10/23/2004 2:44 AM CDT Jono Scherer MD CHEMISTRY ORDERABLES Final Re sult Performing Organization Address [facility] Phone Number INTERFACE SYSTEM Refer to clinic/hospital department * (ABNORMAL) CK TOTAL, RELATIVE INDEX (10/23/2004 2:44 AM CDT) CARDIAC RELATIVE INDEX 9.4(H) <=4.0 INTERFACE SYSTEM CK 1,648(H) 10 - 170 U/L INTERFACE SYSTEM 10/23/2004 2:44 AM CDT Jono Scherer MD CHEMISTRY ORDERABLES Final Re sult Performing Organization Address [facility] Phone Number INTERFACE SYSTEM Refer to [...] ORDERABLES Final Re sult Performing Organization Address [facility] Phone Number INTERFACE SYSTEM Refer to [...] ORDERABLES Final R esult Performing Organization Address [facility] Phone Number INTERFACE SYSTEM Refer [...] <=0.03 ng/mL INTERFACE SYSTEM Comment:Results called to [facility] at 10/23/2004 3:12 AM and read back verified. TROPONIN T INTERP See Below INTERFACE SYSTEM Comment:Elevated Troponin-T, Consistent with Myocardial Injury 10/23/2004 2:44 AM CDT Jono Scherer MD CHEMISTRY ORDERABLES Final Re sult Performing Organization Address City/[facility]/ZIP [facility] de Phone Number INTERFACE SYSTEM Refer [...] ORDERABLES Final Re sult Performing Organization Address [facility] Phone Number INTERFACE SYSTEM Refer [...] ORDERABLES Final Re sult Performing Organization Address [facility] Phone Number INTERFACE SYSTEM Refer to clinic/hospital department documented in this encounter Visit Diagnoses Diagnosis Acute myocardial infarction, true posterior wall infarction, initial episode of care ([facility])- Primary Acute myocardial infarction, true posterior wall infarction, initial episode of care documented in this encounter Care Teams Supervisor Cook Room Relationship Specialty Start Date End Date Rosanne Santana MD [address] [place] [address] [place] [address] PCP - General 10/24/03 documented as of this encounter
--- OUTSIDE RECORDS SUMMARY | 2024-09-08 01:14 | XMS_ITS | Encounter Summary ---
Author Organization [employer] Address [address] [place] [address] Care Team Providers Care Echo Technician Name Role Phone Rosanne Santana MD Primary Care Provider [phone] Encounter Details Date Type Department Care Team (Latest Contact Info) Description 02/13/2006 Outpatient Historical [facility] Rosanne Santana MD [address] [place] [address] Cor Athrscl-Uns Vessel (Primary Dx) Social History Tobacco Use Types Packs/Day Years Used Date Smoking Tobacco: Never Assessed Sex and Gender Information Value Date Recorded Sex Assigned at Not on file Legal Sex Male 4:23 AM TACTICAL DEBRIEFER OFFICER Gender Identity Not on file Sexual Orientation Not on file documented as of this encounter Plan of Treatment Not on file documented as of this encounter Visit Diagnoses Diagnosis Coronary atherosclerosis of unspecified type of vessel, [place] or graft- Primary documented in this encounter Care Teams Echo Technician Relationship Specialty Start Date End Date Rosanne Santana MD [address] [place] [address] PCP - General 10/24/03 documented as of this encounter
--- OUTSIDE RECORDS SUMMARY | 2024-09-08 01:14 | XMS_ITS | Encounter Summary ---
Author Organization [employer] Address [address] [place] [address] Care Team Providers Care Billposter Name Role Phone Rosanne Santana MD Primary Care Provider [phone] Encounter Details Date Type Department Care Team (Latest Contact Info) Description 01/17/2004 Outpatient [facility] [address] [place] [address] & [place] [address] Rosanne Santana MD [address] [place] [address] PURE HYPERCHOLESTEROLEM (Primary Dx) Social History Tobacco Use Types Packs/Day Years Used Date Smoking Tobacco: Never Assessed Sex and Gender Information Value Date Recorded Sex Assigned at Not on file Legal Sex Male 4:23 AM CURRICULUM COORDINATOR Gender Identity Not on file Sexual Orientation Not on file documented as of this encounter Plan of Treatment Not on file documented as of this encounter Visit Diagnoses Diagnosis Pure hypercholesterolemia- Primary documented in this encounter Care Teams Billposter Relationship Specialty Start Date End Date Rosanne Santana MD [address] [place] [address] PCP - General 10/24/03 documented as of this encounter
--- OUTSIDE RECORDS SUMMARY | 2024-09-08 01:14 | XMS_ITS | Encounter Summary ---
Author Organization [email or web address] Address [address] [place] [address] Care Team Providers Care Manager Travel Name Role Phone Rosanne Santana MD Primary Care Provider [phone] Encounter Details Date Type Department Care Team (Late st Contact Info) Description 05/03/1998 Outpatient Historical HIS EMERGENCY ROOM [facility] Eliezer Goddard, [address] [place] [address] Er, Authorized P NO ADDRESS ON FILE Other specified sites of sprains and strains (Primary Dx) Social History Tobacco Use Types Packs/Day Years Used Date Smoking Tobacco: Never Assessed Sex and Gender Information Value Date Recorded Sex Assigned at Not on file Legal Sex Male 4: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
--- OUTSIDE RECORDS SUMMARY | 2024-09-08 01:14 | XMS_ITS | Encounter Summary ---
Author Organization [employer] Address [address] [place] [address] Care Team Providers Care Geophysical E Logger Name Role Phone Rosanne Santana MD Primary Care Provider [phone] Encounter Details Date Type Department Care Team (Latest Contact Info) Description 10/24/2003 Outpatient [facility] [employer] [facility] [address] [place] [address] & [place] [address] Rosanne Snatana MD [address] [place] [address] PURE HYPERCHOLESTEROLEM (Primary Dx) Social History Tobacco Use Types Packs/Day Years Used Date Smoking Tobacco: Never Assessed Sex and Gender Information Value Date Recorded Sex Assigned at Not on file Legal Sex Male 4:23 AM BABY DOCTOR Gender Identity Not on file Sexual Orientation Not on file documented as of this encounter Plan of Treatment Not on file documented as of this encounter Visit Diagnoses Diagnosis Pure hypercholesterolemia- Primary documented in this encounter Care Teams Geophysical E Logger Relationship Specialty Start Date End Date Rosanne Santana MD [address] [place] [address] PCP - General 10/24/03 documented as of this encounter
--- OUTSIDE RECORDS SUMMARY | 2024-09-08 01:14 | XMS_ITS ---
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 Past Treatment and Therapy Plans Line Care Plan Name Start Date Discontinue Date Treatment Medications Discontinue Reason Plan Provider IV Maintenance Therapy Plan 01/05/2024 09/07/2024 No medications scheduled. Therapy Complete Venkat Vivar DO Oncology Chemotherapy Treatment Plan Name Start Date [...]
--- OUTSIDE RECORDS SUMMARY | 2024-09-08 01:14 | XMS_ITS | Encounter Summary ---
Author Organization [employer] Address [address] [place] [address] Care Team Providers Care Gas Leak Inspector Helper Name Role Phone Rosanne Santana MD Primary Care Provider [phone] Encounter Details Date Type Department Care Team (Latest Contact Info) Description 05/21/2006 Outpatient Historical HIS CARD ADDICTIONS COUNSELOR ASSISTANT Jono Richards MD [address] [place] [address] Coronary Atherosclerosis of [place] Coronary Artery (Primary Dx) Social History Tobacco Use Types Packs/Day Years Used Date Smoking Tobacco: Never Assessed Sex and Gender Information Value Date Recorded Sex Assigned at Not on file Legal Sex Male 4:23 AM MARKETING DIRECTOR ASSISTED LIVING Gender Identity Not on file Sexual Orientation Not on file documented as of this encounter Plan of Treatment Not on file documented as of this encounter Visit Diagnoses Diagnosis Coronary atherosclerosis of [place] coronary artery- Primary documented in this encounter Care Teams Gas Leak Inspector Helper Relationship Specialty Start Date End Date Rosanne Santana MD [address] [place] [address] [place] [address] PCP - General 10/24/03 documented as of this encounter
--- OUTSIDE RECORDS SUMMARY | 2024-09-08 01:14 | XMS_ITS | Encounter Summary ---
Author Organization [facility] Address [address] [place] [address] Care Team Providers Care Freight And Passenger Agent Name Role Phone Rosanne Santana MD Primary Care Provider [phone] Encounter Details Date Type Department Care Team (Late st Contact Info) Description 01/17/2003 Outpatient [facility] [address] [place] [address] & [place] [address] Social History Tobacco Use Types Packs/Day Years Used Date Smoking Tobacco: Never Assessed Sex and Gender Information Value Date Recorded Sex Assigned at Not on file Legal Sex Male 4:23 AM REPAIR MANAGER Gender Identity Not on file Sexual Orientation Not on file documented as of this encounter Plan of Treatment Not on file documented as of this encounter Visit Diagnoses Not on filedocumented in this encounter Care Teams Freight And Passenger Agent Relationship Specialty Start Date End Date Rosanne Santana MD [address] [place] [address] [place] [address] PCP - General 10/24/03 documented as of this encounter
--- OUTSIDE RECORDS SUMMARY | 2024-09-08 01:14 | XMS_ITS | Encounter Summary ---
Author Organization [employer] Address [address] [place] [address] Care Team Providers Care Steam Frame Operator Name Role Phone Rosanne Santana MD Primary Care Provider [phone] Encounter Details Date Type Department Care Team (Latest Contact Info) Description 12/02/2001 Outpatient Historical HIS CARDIOPULMONARY Rosanne Santana MD [address] [place] [address] OTHER MALAISE AND FATIGUE (Primary Dx) Social History Tobacco Use Types Packs/Day Years Used Date Smoking Tobacco: Never Assessed Sex and Gender Information Value Date Recorded Sex Assigned at Not on file Legal Sex Male 4:23 AM BRANCH ACCOUNT 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
--- OUTSIDE RECORDS SUMMARY | 2024-09-08 01:14 | XMS_ITS | Encounter Summary ---
Author Organization [employer] Address [address] [place] [address] Care Team Providers Care Real Estate Executive Assistant Name Role Phone Rosanne Santana MD Primary Care Provider [phone] Encounter Details Date Type Department Care Team (Latest Contact Info) Description 11/06/2004 Outpatient Historical HIS CARDIOPULMONARY Rosanne Santana MD [address] [place] [address] PALPITATIONS (Primary Dx) Social History Tobacco Use Types Packs/Day Years Used Date Smoking Tobacco: Never Assessed Sex and Gender Information Value Date Recorded Sex Assigned at Not on file Legal Sex Male 4:23 AM PROPERTY ADJUSTER Gender Identity Not on file Sexual Orientation Not on file documented as of this encounter Plan of Treatment Not on file documented as of this encounter Visit Diagnoses Diagnosis Palpitations- Primary documented in this encounter Care Teams Real Estate Executive Assistant Relationship Specialty Start Date End Date Rosanne Santana MD [address] [place] [address] PCP - General 10/24/03 documented as of this encounter
--- OUTSIDE RECORDS SUMMARY | 2024-09-08 01:14 | XMS_ITS | Encounter Summary ---
Author Organization [employer] Address [address] [place] [address] Care Team Providers Care Anesthesiologist Attending Name Role Phone Rosanne Santana MD Primary Care Provider [phone] Encounter Details Date Type Department Care Team (Late st Contact Info) Description 11/08/[address] [facility] [facility] [address] 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
--- OUTSIDE RECORDS SUMMARY | 2024-09-08 01:14 | XMS_ITS | Clinical Summary ---
Author Organization [facility] [address] Address [address] [place] [address] Care Team Providers Care Food Products Tester Name Role Phone Nikky Reyes MD Primary Care Provider Venkat Vivar DO Unavailable [phone] Kwaku Martin MD Unavailable [phone] Richard Hargrove MD Unavailable [phone] Adelso Quiñones MD Unavailable [phone] Allergies No known active allergies Medications [...] - 09/07/2024 11:59 PM CDT Hospital Encounter [facility] Medical Office Building [address] [place] [id number] Malignant neoplasm of urinary bladder, unspecified site (HCC) Discharge Disposition: Discharge to home or self care 06/14/2024 10:45 AM CDT Office Visit [facility] Physicians [facility] Oncology [address] [place] [phone] Venkat Vivar, Malignant neoplasm of urinary bladder, unspecified site (HCC) (Primary Dx) 06/14/2024 10:15 AM CDT Lab [facility] at [address] [address] Malignant neoplasm of urinary bladder, unspecified site (HCC) 06/09/2024 Results Follow-Up [facility] Oncology [address] [place] [phone] Laura Arias, ODILON CT Chest Abdomen Pelvis W Contrast from Last 3 Months Surgical History Surgery [...] on file 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 Testing performed by: [address] [address] Blood 06/14/2024 9:54 AM CDT 06/14/2024 9:56 AM CDT us Venkat Vivar DO LAB BLOOD ORDERABLES Final R esult [facility] [address] [facility] [place] [address] * Differential, auto (06/14/2024 9:54 AM CDT) Pathologist [facility] Neutrophil abs 3.0 1.5 - 6.5 K/cumm Comment:Testing performed by : [address] [address] Imm gran abs 0.0 0.0 - 0.1 K/cumm JAIME Comment:Testing performed by : [address] [address] Lymphocyte abs 1.0 0.8 - 3.3 K/cumm JAIME Comment:Testing performed by : [address] [address] Monocyte abs 0.6 0.2 - 0.8 K/cumm [facility] Comment:Testing performed by : [address], [place]., [address] Eosinophil abs 0.1 0.0 - 0.5 K/cumm [facility] Comment:Testing performed by : [address], [place]., [address] Basophil abs 0.0 0.0 - 0.1 K/cumm [facility] Comment:Testing performed by : [address] [address] Neutrophil pct 62.3 % [facility] Comment: Interpretive Data Percent cell count reference ranges are not reported, since discordance with absolute values may lead to misinterpretation of CBC data. Current Interpretive Data was last revised on 2017. Testing performed by: [address] [address] Imm gran pct 0.2 % [facility] Comment: Interpretive Data Percent cell count reference ranges are not reported, since discordance with absolute values may lead to misinterpretation of CBC data. Current Interpretive Data was last revised on 2017. Testing performed by: [address] [address] Lymphocyte pct 21.2 % [facility] Comment: Interpretive Data Percent cell count reference ranges are not reported, since discordance with absolute values may lead to misinterpretation of CBC data. Current Interpretive Data was last revised on 2017. Testing performed by: [address] [address] Monocyte pct 13.2 % [facility] Comment: Interpretive Data Percent cell count reference ranges are not reported, since discordance with absolute values may lead to misinterpretation of CBC data. Current Interpretive Data was last revised on 2017. Testing performed by: [address] [address] Eosinophil pct 2.5 % [facility] Comment: Interpretive Data Percent cell count reference ranges are not reported, since discordance with absolute values may lead to misinterpretation of CBC data. Current Interpretive Data was last revised on 2017. Testing performed by: [address] [address] Basophil pct 0.6 % [facility] Comment: Interpretive Data Percent cell count reference ranges are not reported, since discordance with absolute values may lead to misinterpretation of CBC data. Current Interpretive Data was last revised on 2017. Testing performed by: [address] [address] Blood 06/14/2024 9:54 AM CDT 06/14/2024 9:56 AM CDT Venkat Vivar DO LAB BLOOD ORDERABLES Final R esult [facility] [address] [facility] Department [place] [address] * (ABNORMAL) CBC with auto differential (06/14/2024 9:54 AM CDT) WBC 4.9 3.8 - 9.9 K/cumm Comment:Testing performed by : [address] [address] Hgb 12.9(L) 13.0 - 17.5 g/dL [facility] Comment:Testing performed by : [address] [address] Hct 37.9(L) 38.9 - 50.3 % [facility] Comment:Testing performed by : [address] [address] Plt 168 150 - 400 K/cumm [facility] Comment:Testing performed by : [address] [address] MPV 9.1 9.1 - 12.3 fL [facility] Comment:Testing performed by : [address] [address] RBC 4.06(L) 4.30 - 5.80 M/cumm [facility] Comment:Testing performed by : [address] [address] MCV 93.3 81.3 - 96.4 fL [facility] Comment:Testing performed by : [address] [address] MCH 31.8 27.1 - 33.3 pg [facility] Comment:Testing performed by : [address] [address] MCHC 34.0 32.3 - 35.7 g/dL [facility] Comment:Testing performed by : [address] [address] RDW CV 14.0 11.1 - 14.9 % [facility] Comment:Testing performed by : [address] [address] RDW SD 47.6 35.7 - 48.1 fL [facility] Comment:Testing performed by : [address] [address] NRBC abs 0.00 0.00 - 0.01 K/cumm [facility] Comment:Testing performed by : [address] [address] Blood 06/14/2024 9:54 AM CDT 06/14/2024 9:56 AM CDT Venkat Vivar DO LAB BLOOD ORDERABLES Final R esult [facility] [address] [facility] Department of Laboratories [place], [place] [id number] * Comprehensive metabolic panel (06/14/2024 9:54 AM CDT) Sodium 138 135 - 145 mmol/L Comment:Testing performed by : [address] [address] Potassium, pl 4.5 3.3 - 4.9 mmol/L [facility] Comment:Testing performed by : [address] [address] Chloride 105 97 - 110 mmol/L [facility] Comment:Testing performed by : [address] [address] CO2 27 22 - 32 mmol/L JAIME Comment:Testing performed by : [address] [address] Anion gap 6 2 - 15 mmol/L [facility] Comment:Testing performed by : [address] [address] BUN 13 6 - 25 mg/dL [facility] Comment:Testing performed by : [address] [address] Creatinine 0.80 0.80 - 1.30 mg/dL [facility]IME Comment:Testing performed by : [address] [address] Glucose 117 70 - 199 mg/dL [facility] Comment: Interpretive Data Fasting glucose >/= 126 [...] was last revised 2022. Testing performed by: [address] [address] Calcium 9.2 8.5 - 10.3 mg/dL JAIME Comment:Testing performed by : [address] [address] Bilirubin, total 0.4 0.1 - 1.2 mg/dL [facility] Comment:Testing performed by : [address] [address] Protein, pl 7.2 6.5 - 8.5 g/dL [facility] Comment:Testing performed by : [address] [address] Albumin 4.1 3.5 - 5.0 g/dL [facility] Comment:Testing performed by : [address] [address] Alk phos 73 40 - 130 Units/L JAIME Comment:Testing performed by : [address], [place]., [address] ALT 18 7 - 55 Units/L [facility] Comment:Testing performed by : [address] [address] AST 16 10 - 50 Units/L [facility] Comment:Testing performed by : [facility], [address] [place] [address]., [address] Blood 06/14/2024 9:54 AM CDT 06/14/2024 9:56 AM CDT us Venkat Vivar DO LAB BLOOD ORDERABLES Final R esult [facility] [address] [facility] [place] [address] from Last 3 Months Insurance MEDICARE [facility] Address: [address] [address] [place] [address] [employer] SENIOR SUPPLEMENT MEDICARE [facility] MEDICARE SUPPLEMENT MEDICARE [facility] MEDICARE SUPPLEMENT Care Teams Food Products Tester Relationship Specialty Start Date End Date Nikky Reyes MD [address] [facility] [address] [place], [place] [id number] PCP - General Family Practice 12/15/23 Venkat Vivar DO [address] [place] [address] MEDICAL ONCOLOGY, [facility] [address] [place], [place] [address] Medical Oncologist/Sewing Machine Operator Semiautomatic Hematology and Oncology 12/15/23 Kwaku Martin MD [address] [place] [address] MEDICAL ONCOLOGY, [address] [phone] Consulting Physician Urology 12/15/23 Richard Hargrove MD [address] [place] [phone] Radiation Oncologist Radiation Oncology 01/08/24 Adelso Quiñ[place] [address] [place] [address] Surgeon Urology 01/22/24
--- OUTSIDE RECORDS SUMMARY | 2024-09-08 01:14 | XMS_ITS | Encounter Summary ---
Author Organization [employer] Address [address] [place] [address] Care Team Providers Care Educational Diagnostician Name Role Phone Rosanne Santana MD Primary Care Provider [phone] Encounter Details Date Type Department Care Team (Late st Contact Info) Description 06/25/2007 Inpatient Historical HIS [place] [address] [facility] [address] [place] [address] Jono Scherer MD [address] [facility] [address] [place] [address] Unspecified Chest Pain Social History Tobacco Use Types Packs/Day Years Used Date Smoking Tobacco: Never Assessed Sex and Gender Information Value Date Recorded Sex Assigned at Not on file 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 #: [id number] POC: Attending MD: Romel Performing MD: Romel [...] 09:06:43 Procedure Note Provider, Historical - 07/01/2007 [address] [place] [address] [email or web address] Cardiac Catheterization Comprehensive Report Patient: Mitchell Rodriguez Study ID: [id number] Gender: M : 1950 Age: 57 years Race: 1 Room: Bed: Height: 73 in ( 185.4 cm ) Study Date: June 25, 2007 Patient status: Inpatient Weight: 183.9 lb ( 83.6 kg ) Access. #: [id number] POC: Attending MD: Romel Lozada MD: Romel [...] FLUOROSCOPY ORDERABLES Final Result Performing Organization Address City/[facility]/ZIP Co de Phone Number INTERFACE SYSTEM Refer to clinic/hospital department * CKMB W/REFLEX CK (06/26/2007 4:50 AM CDT) CKMB 3.0 <=6.7 ng/mL [facility] CKMB INTERP Negative [facility] Blood specimen (specimen) 06/26/2007 4:50 AM CDT 06/26/2007 4:59 AM CDT Jono Scherer MD CHEMISTRY ORDERABLES Edited Performing Organization Address [facility]/ZIP Co de Phone Number [facility] [address] [place] [address] * (ABNORMAL) CBC WITH DIFFERENTIAL (06/26/2007 4:50 AM CDT) WBC 6.5 4.0 - 9.8 K/uL [facility] MCH 31.8 27.2 - 32.6 pg [facility] MPV 9.9 9.3 - 12.4 fL [facility] HEMATOCRIT 40.2 40.0 - 48.0 % [facility] RDW-STDEV 44.4 37.1 - 48.7 fL [facility] RBC 4.31(L) 4.50 - 5.40 M/uL [facility] MCHC 34.1 31.5 - 35.5 % [facility] MCV 93.3 82.0 - 99.0 fL [facility] PLATELETS 146 140 - 350 K/uL [facility] HEMOGLOBIN 13.7 13.6 - 16.5 g/dL [facility] RDW 13.1 11.5 - 14.5 % [facility] BASOPHILS 0 0 - 2 % [facility] BASOPHILS ABSOLUTE 0.02 0.00 - 0.20 K/uL [facility] MONOCYTES 13 3 - 13 % [facility] MONOCYTE ABSOLUTE 0.83 0.10 - 1.30 K/uL [facility] NEUTROPHILS 66 45 - 70 % [facility] NEUTROPHIL ABSOLUTE 4.29 1.90 - 7.00 K/uL [facility] EOSINOPHILS 3 0 - 7 % [facility] EOSINOPHIL ABSOLUTE 0.16 0.00 - 0.70 K/uL [facility] LYMPHOCYTES 18 16 - 45 % [facility] LYMPHOCYTE ABSOLUTE 1.19 0.70 - 4.50 K/uL [facility] Blood specimen (specimen) 06/26/2007 4:50 AM CDT 06/26/2007 4:59 AM CDT Jono Scherer MD HEMATOLOGY ORDERABLES Edited Performing Organization Address [facility] Phone Number INTERFACE SYSTEM Refer to clinic/hospital department [facility] [address] [place] [address] * (ABNORMAL) PHOSPHORUS (06/26/2007 4:50 AM CDT) PHOSPHORUS 2.2(L) 2.5 - 4.5 mg/dL [facility] Blood specimen (specimen) 06/26/2007 4:50 AM CDT 06/26/2007 4:59 AM CDT Jono Scherer MD CHEMISTRY ORDERABLES Final Re sult Performing Organization Address [facility] de Phone Number [facility] [address] [place] [address] * MAGNESIUM LEVEL (06/26/2007 4:50 AM CDT) MAGNESIUM 2.2 1.5 - 2.5 mg/dL [facility] Blood specimen (specimen) 06/26/2007 4:50 AM CDT 06/26/2007 4:59 AM CDT Jono Scherer MD CHEMISTRY ORDERABLES Final Re sult Performing Organization Address [facility] de Phone Number [facility] [address] [place] [address] * (ABNORMAL) BASIC METABOLIC PANEL (06/26/2007 4:50 AM CDT) BUN 15 6 - 20 mg/dL [facility] CHLORIDE 103 96 - 108 mmol/L [facility] GLUCOSE 97 65 - 99 mg/dL [facility] SODIUM 135 135 - 145 mmol/L [facility] CALCIUM 8.3(L) 8.4 - 10.2 mg/dL [facility] CO2 26 22 - 30 mmol/L [facility] CREATININE 0.78 0.67 - 1.17 mg/dL [facility] POTASSIUM 3.7 3.5 - 4.9 mmol/L [facility] GFR, >60 >=60 mL/min/1. 7 sq meter [facility] GFR >60 >=60 mL/min/1. 7 sq meter [facility] Comment: Estimated GFR rate interpretative information for both Americans and non- Americans is available on the [facility] Intranet at: [email or web address] Select: Lab Policies and Procedures Select: Reference Ranges - GFR Blood specimen (specimen) 06/26/2007 4:50 AM CDT 06/26/2007 4:59 AM CDT Jono Scherer MD CHEMISTRY ORDERABLES Edited [facility] [address] [place] [address] * (ABNORMAL) TROPONIN (W/REFLEX CKMB/CK) (06/26/2007 4:50 AM CDT) TROPONIN T 0.06(AA) <=0.03 ng/mL [facility] Comment: Persistent abnormal result TROPONIN T INTERP See Below [facility] Comment: Elevated Troponin-T,Consistent with Myocardial Injury Blood specimen (specimen) 06/26/2007 4:50 AM CDT 06/26/2007 4:59 AM CDT Jono Scherer MD CHEMISTRY ORDERABLES Edited [facility] [address] [place] [address] * CKMB W/REFLEX CK (06/25/2007 8:18 PM CDT) CKMB 5.8 <=6.7 ng/mL [facility] CKMB INTERP Negative [facility] Blood specimen (specimen) 06/25/2007 8:18 PM CDT 06/25/2007 8:23 PM CDT Jono Scherer MD CHEMISTRY ORDERABLES Edited Performing Organization Address [facility] Co de Phone Number [facility] [address] [place] [address] * (ABNORMAL) TROPONIN (W/REFLEX CKMB/CK) (06/25/2007 8:18 PM CDT) [facility] TROPONIN T 0.05(AA) <=0.03 ng/mL [facility] Comment: Results called to Lynne at 06/25/07 9:43 PM and read back verified. TROPONIN T INTERP See Below [facility] Comment: Elevated Troponin-T,Consistent with Myocardial Injury Blood specimen (specimen) 06/25/2007 8:18 PM CDT 06/25/2007 8:23 PM CDT Jono Scherer MD CHEMISTRY ORDERABLES Edited Performing Organization Address City/[facility]/ZIP Co de Phone Number [facility] [address] [place] [address] * (ABNORMAL) BASIC METABOLIC PANEL (06/25/2007 1:44 PM CDT) Pathologist [facility] GLUCOSE 94 65 - 99 mg/dL [facility] SODIUM 138 135 - 145 mmol/L [facility] CALCIUM 8.1(L) 8.4 - 10.2 mg/dL [facility] CO2 24 22 - 30 mmol/L [facility] CREATININE 0.76 0.67 - 1.17 mg/dL [facility] POTASSIUM 3.8 3.5 - 4.9 mmol/L [facility] BUN 11 6 - 20 mg/dL [facility] CHLORIDE 105 96 - 108 mmol/L [facility] GFR, >60 >=60 mL/min/1. 7 sq meter [facility] GFR >60 >=60 mL/min/1. 7 sq meter [facility] Comment: Estimated GFR rate interpretative information for both Americans and non- Americans is available on the [facility] Intranet at: [email or web address] Select: Lab Policies and Procedures Select: Reference Ranges - GFR Blood specimen (specimen) 06/25/2007 1:44 PM CDT 06/25/2007 1:55 PM CDT us Alena Guardado MD CHEMISTRY ORDERABLES Edited [facility] [address] [place] [address] * XR CHEST PA OR AP (06/25/2007 12:20 PM CDT) Anatomical Region Laterality Modality Chest Other 06/25/2007 12:2 0 PM CDT Narrative 06/25/2007 12:50 PM CDT [facility] [address] [place], [place] [address] Admit Date: 06/25/2007 MITCHELL RODRIGUEZ Sex: M Admit Prov: PAU DE LA CRUZ J Date: 1950 Primary Care Prov: CMRN: [id number] Room: [address] [place] [address] SSN: [id number] IMAGING SERVICES Ordering Prov: N/A Accession Number: [id number] Interpretation Chest single view 06/25/2007 History: Chest pain Findings: The right costophrenic angle is cut off the film. No infiltrate, pneumothorax or pleural effusion is seen. The cardiac silhouette appears prominent. . Dictated by: NIYAH HULL 06/25/2007 12:49 Electronically signed by: NIYAH HULL 06/25/2007 12:50 Procedure Note Niyah Hull - 06/25/2007 [facility] [address] [place], [place] [address] Admit Date: 06/25/2007 MICHAELMITCHELL VEE Sex: M Admit Prov: PAU DE LA CRUZ Date: 1950 Primary Care Prov: CMRN: [id number] Room: [address] [place] [address] SSN: [id number] IMAGING SERVICES Ordering Prov: N/A Interpretation Chest [...] PM CDT) TROPONIN T <0.01 <=0.03 ng/mL [facility] TROPONIN T INTERP Negative [facility] Blood specimen (specimen) 06/25/2007 12:00 PM CDT 06/25/2007 12:12 PM CDT Jono Scherer MD CHEMISTRY ORDERABLES Edited [facility] [address] [place] [address] * (ABNORMAL) PTT (06/25/2007 12:00 PM CDT) PTT 79.1(H) 24.4 - 36.4 Seconds [facility] Comment: PTT Therapeutic Range: Heparin Level PTT (seconds) <0.10 units/mL <53 0.10 - 0.30 units/mL 53 - 67 0.30 - 0.70 units/mL* 67 - 95* 0.70 - 1.00 units/mL 95 - 116 *corresponds to therapeutic range for unfractionated heparin Blood specimen (specimen) 06/25/2007 12:00 PM CDT 06/25/2007 12:12 PM CDT Jono Scherer MD HEMATOLOGY ORDERABLES Final R esult Performing Organization Address City/[facility] Co de Phone Number [facility] [address] [place] [address] * (ABNORMAL) PROTIME-INR (06/25/2007 12:00 PM CDT) PROTIME 22.6(H) 12.7 - 15.1 Seconds [facility] INR 2.0(H) 0.9 - 1.1 [facility] Comment: INR Therapeutic Range: Adult: 2.0 - 3.0 for pulmonary embolism or prophylaxis against venous thrombosis or systemic embolization. 2.0 - 3.0 for patients with tissue heart valves. 2.5 - 3.5 for patients with mechanical heart valves or post FL. Pediatric (12 years and under): 1.5 - [...] Scherer MD HEMATOLOGY ORDERABLES Final R esult [facility] [address] [place], [address] [address] * (ABNORMAL) CBC WITH DIFFERENTIAL (06/25/2007 12:00 PM CDT) MCV 93.4 82.0 - 99.0 fL [facility] PLATELETS 156 140 - 350 K/uL [facility] HEMOGLOBIN 14.0 13.6 - 16.5 g/dL [facility] RDW 13.2 11.5 - 14.5 % [facility] WBC 6.3 4.0 - 9.8 K/uL [facility] MCH 32.0 27.2 - 32.6 pg [facility] MPV 10.0 9.3 - 12.4 fL [facility] HEMATOCRIT 40.8 40.0 - 48.0 % [facility] RDW-STDEV 44.9 37.1 - 48.7 fL [facility] RBC 4.37(L) 4.50 - 5.40 M/uL [facility] MCHC 34.3 31.5 - 35.5 % [facility] BASOPHILS 0 0 - 2 % [facility] BASOPHILS ABSOLUTE 0.01 0.00 - 0.20 K/uL [facility] MONOCYTES 10 3 - 13 % [facility] MONOCYTE ABSOLUTE 0.64 0.10 - 1.30 K/uL [facility] NEUTROPHILS 69 45 - 70 % [facility] NEUTROPHIL ABSOLUTE 4.33 1.90 - 7.00 K/uL [facility] EOSINOPHILS 2 0 - 7 % [facility] EOSINOPHIL ABSOLUTE 0.10 0.00 - 0.70 K/uL [facility] LYMPHOCYTES 19 16 - 45 % [facility] LYMPHOCYTE ABSOLUTE 1.17 0.70 - 4.50 K/uL [facility] Blood specimen (specimen) 06/25/2007 12:00 PM CDT 06/25/2007 12:12 PM CDT us Jono Scherer MD HEMATOLOGY ORDERABLES Edited Performing Organization Address City/[facility]/ZIP Co de Phone Number INTERFACE SYSTEM Refer to clinic/hospital department [facility] [address] [place] [address] * POC ACTIVATED CLOTTING TIME (06/25/2007 10:51 AM CDT) ACT POC 328 Seconds [facility] Comment: Note sheath pull range change effective 09/20/2005. ACT value for sheath pull at [facility] has been established to be < or = to 140. (See also Nursing Procedures for sheath pull in related nursing areas) Blood specimen (specimen) 06/25/2007 10:51 AM CDT 06/25/2007 10:51 AM CDT us Pau De La Cruz MD POINT OF CARE TESTING Final Re sult Performing Organization Address [facility] de Phone Number [facility] [address] [place] [address] documented in this encounter Visit Diagnoses Diagnosis Chest pain, unspecified documented in this encounter Care Teams Educational Diagnostician Relationship Specialty Start Date End Date Rosanne Santana MD [address] [place] [address] [place] [address] PCP - General 10/24/03 documented as of this encounter
--- OUTSIDE RECORDS SUMMARY | 2024-09-08 01:14 | XMS_ITS | Encounter Summary ---
Author Organization [employer] Address [address] [place] [address] Care Team Providers Care Amusement Ride Operator Name Role Phone Rosanne Santana MD Primary Care Provider [phone] Encounter Details Date Type Department Care Team (Late st Contact Info) Description 10/23/[address] [facility] [address] [place] [id number] Kingsley Reyna MD [address] [address] [address] [place] [id number] Social History Tobacco Use Types Packs/Day Years Used Date Smoking Tobacco: Never Assessed Sex and Gender Information Value Date Recorded Sex Assigned at Not on file Legal Sex Male 4:23 AM [employer] Gender Identity Not on file Sexual Orientation Not on file documented as of this encounter Plan of Treatment Not on file documented as of this encounter Visit Diagnoses Not on filedocumented in this encounter Care Teams Amusement Ride Operator Relationship Specialty Start Date End Date Rosanne Santana MD [address] [place] [address] [place] [address] PCP - General 10/24/03 documented as of this encounter
--- OUTSIDE RECORDS SUMMARY | 2024-09-08 01:22 | XMS_ITS | Continuity of Care Document ---
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 It does not include entries that were removed or entered in error. Problem Status Onset Date Problem Type Date of Resolution Comments Source Benign essential hypertension Active Condition [facility] Congestive heart failure Active Condition [facility] Coronary atherosclerosis (SNOMED CT 986998595) Active Condition Apr 06, 2004 Entered By: DONNY HARRISON Comment: myocardial infarction [facility] Hyperlipidemia (SNOMED CT 69633741) Active Condition [facility] Hypothyroidism Active Condition [facility] Prediabetes Active Condition [facility] Diagnosis: ICD-10-CM Z13.5 Encounter for screening for eye and ear disorders Active Diagnosis [facility] Diagnosis: ICD-10-CM I25.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 Medication Details Route Status Patient Instructions Prescription Expires Prescription Number Last Dispense Date Ordering Provider Order Date Order Qty Source ASPIRIN 81MG TAB,EC TAKE ONE TABLET BY MOUTH ONCE A DAY FOR CARDIOVA SCULAR DISEASE TAKE WITH FOOD ORAL ACTIVE 11/19/2024 [id number] 4 MARGUERITE PAEZ 2023 120 [facility] CLOPIDOGREL BISULFATE 75MG TAB TAKE ONE TABLET BY MOUTH ONCE A DAY FOR ACUTE CORONARY SYNDROME ORAL ACTIVE 11/19/2024 [id number] 5 MARGUERITE PAEZ E 2023 90 [facility] CLOPIDOGREL BISULFATE 75MG TAB TAKE ONE TABLET BY MOUTH ONCE A DAY FOR ACUTE CORONARY SYNDROME ORAL DISCONT INUED 02/28/2024 [id number] 4 MARVELJOEL YUAN T [address] [place] [address] FUROSEMIDE 40MG TAB TAKE ONE TABLET BY MOUTH EVERY MORNING FOR FLUID RETENTIO N (EDEMA) ORAL ACTIVE 11/19/2024 [id number] 5 JEANNINEMARGUERITE Julisa 2023 90 [facility] FUROSEMIDE 40MG TAB TAKE ONE TABLET BY MOUTH EVERY MORNING FOR FLUID RETENTIO N (EDEMA) ORAL DISCONT INUED 02/28/2024 [id number] 4 MARVELJOEL YUAN T [address] [place] [address] LEVOTHYROXI NE NA 50MCG TAB (SYNTHROID) TAKE ONE TABLET BY MOUTH EVERY MORNING BEFORE A MEAL FOR HYPOTHYR OIDISM TAKE 30 MINUTES BEFORE FOOD. TAKE SEPARATE LY FROM ALL OTHER MEDICATI ONS. ORAL ACTIVE 11/19/2024 [id number] 4 JEANNINEMARGUERITE E 2023 90 [facility] LEVOTHYROXI NE NA 50MCG TAB (SYNTHROID) TAKE ONE TABLET BY MOUTH EVERY MORNING BEFORE A MEAL FOR HYPOTHYR OIDISM TAKE 30 MINUTES BEFORE FOOD. TAKE SEPARATE LY FROM ALL OTHER MEDICATI ONS. ORAL DISCONT INUED 02/28/2024 [id number] 4 MARVELJOEL [address] [place] [address] METOPROLOL SUCCINATE 50MG TAB,SA TAKE ONE-HALF TABLET BY MOUTH ONCE A DAY FOR HIGH BLOOD PRESSURE SWALLO W WHOLE, DO NOT CRUSH OR CHEW (TABLETS MAY BE CUT IN HALF). ORAL ACTIVE 11/19/2024 [id number] 5 JEANNINEMARGUERITE Julisa 2023 45 [facility] ROSUVASTATI N CA 40MG TAB TAKE ONE TABLET BY MOUTH EVERY EVENING FOR HIGH CHOLESTE ROL ORAL ACTIVE 11/19/2024 [id number] 5 MARGUERITE PAEZ E 2023 90 [facility] ROSUVASTATI N CA 40MG TAB TAKE ONE TABLET BY MOUTH EVERY EVENING FOR HIGH CHOLESTE ROL ORAL DISCONT INUED 02/28/2024 [id number] 4 JOEL GRIER T 2022 90 [facility] SACUBITRIL 49MG/VALSAR ABBOTT 51MG TAB TAKE ONE-HALF TABLET BY MOUTH TWICE A DAY FOR HEART FAILURE ORAL ACTIVE 11/19/2024 [id number] 5 MARGUERITE PAEZ E 2023 90 [facility] SACUBITRIL 49MG/VALSAR ABBOTT 51MG TAB TAKE ONE-HALF TABLET BY MOUTH TWICE A DAY FOR HEART FAILURE ORAL DISCONT INUED 02/28/2024 [id number] 4 JOEL GRIER T 2022 90 [facility] Immunizations Combined list of available immunizations from the Department of Defense and Veterans Affairs facilities. 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 Ordering Provider: WISAM GRIER Report Released Date/Time: Oct 04, 2023 05:25 PM Reporting Lab: [address] [phone] Performing Lab: [place] [phone] [place] [address] CBC HEMOGLOBIN [MASS/VOLUM E] IN BLOOD 11.9 g/dL 13.1 - 16.8 11/20 L Specimen Type: BLOOD No comment entered. Ordering Provider: WISAM GRIER Report Released Date/Time: Oct 04, 2023 05:25 PM Reporting Lab: [address] [phone] Performing Lab: [place] [phone] [place] [address] CBC HEMATOCRIT [VOLUME FRACTION] OF BLOOD 35.0 38.2 - 48.4 11/20 L Specimen Type: BLOOD No comment entered. Ordering Provider: WISAM GRIER Report Released Date/Time: Oct 04, 2023 05:25 PM Reporting Lab: [address] [phone] Performing Lab: [phone] [place] [address] CBC MCV [ENTITIC VOLUME] BY AUTOMATED COUNT 96.2 fL 80.0 - 100.0 11/20 Specimen Type: BLOOD No comment entered. Ordering Provider: WISAM GRIER Report Released Date/Time: Oct 04, 2023 05:25 PM Reporting Lab: [address] [phone] Performing Lab: [address] [phone] [place] [address] CBC MCH [ENTITIC MASS] BY AUTOMATED COUNT 32.7 pg 27.0 - 34.0 11/20 Specimen Type: BLOOD No comment entered. Ordering Provider: WISAM GRIER Report Released Date/Time: Oct 04, 2023 05:25 PM Reporting Lab: [facility] [address] [place] [phone] Performing Lab: [address] [phone] [facility] CBC MCHC [MASS/VOLUM E] BY AUTOMATED COUNT 34.0 g/dL 33.0 - 36.0 11/20 Specimen Type: BLOOD No comment entered. Ordering Provider: WISAM GRIER Report Released Date/Time: Oct 04, 2023 05:25 PM Reporting Lab: [address] [phone] Performing Lab: [address] [phone] [place] [address] CBC PLATELETS [#/VOLUME] IN BLOOD BY AUTOMATED COUNT 189 10*3/u L 150 - 400 11/20 Specimen Type: BLOOD No comment entered. Ordering Provider: WISAM GRIER Report Released Date/Time: Oct 04, 2023 05:25 PM Reporting Lab: [facility] [address] [place] [phone] Performing Lab: [address] [phone] [facility] CBC PLATELET MEAN VOLUME [ENTITIC VOLUME] IN BLOOD BY AUTOMATED COUNT 9.6 fL 7.5 - 11.2 11/20 Specimen Type: BLOOD No comment entered. Ordering Provider: WISAM GRIER Report Released Date/Time: Oct 04, 2023 05:25 PM Reporting Lab: [facility] [address] [place] [phone] Performing Lab: [address] [phone] [facility] CBC ERYTHROCYTE DISTRIBUTIO N WIDTH [RATIO] BY AUTOMATED COUNT 14.6 11.8 - 15.1 11/20 Specimen Type: BLOOD No comment entered. Ordering Provider: WISAM GRIER Report Released Date/Time: Oct 04, 2023 05:25 PM Reporting Lab: [facility] [address] [facility] [address] Performing Lab: [facility] [address] [facility] [phone] [facility] CBC LYMPHOCYTES /100 LEUKOCYTES IN BLOOD BY AUTOMATED COUNT 17 11/20 Specimen Type: BLOOD No comment entered. Ordering Provider: WISAM GRIER Report Released Date/Time: Oct 04, 2023 05:25 PM Reporting Lab: [facility] [address] [facility] [phone] Performing Lab: [facility] [address] [place] [phone] [facility] CBC MONOCYTES/1 00 LEUKOCYTES IN BLOOD BY AUTOMATED COUNT 11 11/20 Specimen Type: BLOOD No comment entered. Ordering Provider: WISAM GRIER Report Released Date/Time: Oct 04, 2023 05:25 PM Reporting Lab: [facility] [address] [facility] [address] Performing Lab: [facility] [address] [place] [phone] [facility] CBC NEUTROPHILS /100 LEUKOCYTES IN BLOOD BY AUTOMATED COUNT 69 11/20 Specimen Type: BLOOD No comment entered. Ordering Provider: WISAM GRIER Report Released Date/Time: Oct 04, 2023 05:25 PM Reporting Lab: [facility] [address] [facility] [phone] Performing Lab: [facility] [address] [place] [phone] [facility] CBC EOSINOPHILS /100 LEUKOCYTES IN BLOOD BY AUTOMATED COUNT 2 11/20 Specimen Type: BLOOD No comment entered. Ordering Provider: WISAM GRIER Report Released Date/Time: Oct 04, 2023 05:25 PM Reporting Lab: [facility] [address] [place] [phone] Performing Lab: [address] [address] [facility] CBC BASOPHILS/1 00 LEUKOCYTES IN BLOOD BY AUTOMATED COUNT 0 11/20 Specimen Type: BLOOD No comment entered. Ordering Provider: WISAM GRIER Report Released Date/Time: Oct 04, 2023 05:25 PM Reporting Lab: [address] [address] Performing Lab: [place] [phone] CBC LYMPHOCYTES [#/VOLUME] IN BLOOD BY AUTOMATED COUNT 1.33 10*3/u L 0.77 - 4.50 11/20 Specimen Type: BLOOD No comment entered. Ordering Provider: WISAM GRIER Report Released Date/Time: Oct 04, 2023 05:25 PM Reporting Lab: [address] [phone] Performing Lab: [address] [phone] [place] [address] CBC MONOCYTES [#/VOLUME] IN BLOOD BY AUTOMATED COUNT 0.90 10*3/u L 0.19 - 0.80 11/20 H Specimen Type: BLOOD No comment entered. Ordering Provider: WISAM GRIER Report Released Date/Time: Oct 04, 2023 05:25 PM Reporting Lab: [facility] [address] [place] [phone] Performing Lab: [address] [phone] CBC NEUTROPHILS [#/VOLUME] IN BLOOD BY AUTOMATED COUNT 5.47 10*3/u L 2.10 - 8.00 11/20 Specimen Type: BLOOD No comment entered. Ordering Provider: WISAM GRIER Report Released Date/Time: Oct 04, 2023 05:25 PM Reporting Lab: [facility] [address] [place] [phone] Performing Lab: [facility] [address] [place] [phone] [facility] CBC EOSINOPHILS [#/VOLUME] IN BLOOD BY AUTOMATED COUNT 0.12 10*3/u L 0.00 - 0.60 11/20 Specimen Type: BLOOD No comment entered. Ordering Provider: WISAM GRIER Report Released Date/Time: Oct 04, 2023 05:25 PM Reporting Lab: [facility] [address] [place] [phone] Performing Lab: [place] [phone] CBC BASOPHILS [#/VOLUME] IN BLOOD BY AUTOMATED COUNT 0.03 10*3/u L 0.00 - 0.20 11/20 Specimen Type: BLOOD No comment entered. Ordering Provider: WIASM GRIER Report Released Date/Time: Oct 04, 2023 05:25 PM Reporting Lab: [facility] [address] [place] [phone] Performing Lab: [place] [phone] COMPREHEN SIVE METABOLIC PANEL CREATININE [MASS/VOLUM E] IN SERUM OR PLASMA 0.98 mg/dL 0.7 - 1.3 11/20 Specimen Type: PLASMA Comment: No hemolysis noted. Ordering Provider: WISAM GRIER Report Released Date/Time: Oct 04, 2023 05:25 PM Reporting Lab: [facility] [address] [place] [phone] Performing Lab: [place] [phone] COMPREHEN SIVE METABOLIC PANEL UREA NITROGEN [MASS/VOLUM E] IN SERUM OR PLASMA 13.6 mg/dL 9.0 - 25.0 11/20 Specimen Type: PLASMA Comment: No hemolysis noted. Ordering Provider: WISAM GRIER Report Released Date/Time: Oct 04, 2023 05:25 PM Reporting Lab: [facility] [address] [facility] [phone] Performing Lab: [facility] [address] [facility] [phone] [facility] COMPREHEN SIVE METABOLIC PANEL GLUCOSE [MASS/VOLUM E] IN SERUM OR PLASMA 109 mg/dL 72 - 99 11/20 H Specimen Type: PLASMA Comment: No hemolysis noted. Ordering Provider: WISAM GRIER Report Released Date/Time: Oct 04, 2023 05:25 PM Reporting Lab: [facility] [address] [place] [phone] Performing Lab: [facility] [address] [place] [phone] [place] [address] COMPREHEN SIVE METABOLIC PANEL SODIUM [MOLES/VOLU ME] IN SERUM OR PLASMA 140 meq/L 136 - 145 11/20 Specimen Type: PLASMA Comment: No hemolysis noted. Ordering Provider: WISAM GRIER Report Released Date/Time: Oct 04, 2023 05:25 PM Reporting Lab: [facility] [address] [place] [phone] Performing Lab: [facility] [address] [facility] [phone] [facility] COMPREHEN SIVE METABOLIC PANEL POTASSIUM [MOLES/VOLU ME] IN SERUM OR PLASMA 4.0 meq/L 3.5 - 5 11/20 Specimen Type: PLASMA Comment: No hemolysis noted. Ordering Provider: WISAM GRIER Report Released Date/Time: Oct 04, 2023 05:25 PM Reporting Lab: [facility] [address] [place] [phone] Performing Lab: [facility] [address] [facility] [phone] [facility] COMPREHEN SIVE METABOLIC PANEL CHLORIDE [MOLES/VOLU ME] IN SERUM OR PLASMA 107 meq/L 98 - 107 11/20 Specimen Type: PLASMA Comment: No hemolysis noted. Ordering Provider: WISAM GRIER Report Released Date/Time: Oct 04, 2023 05:25 PM Reporting Lab: [facility] [address] [facility] [phone] Performing Lab: [facility] [address] [facility] [phone] [place] [address] COMPREHEN SIVE METABOLIC PANEL CARBON DIOXIDE, TOTAL [MOLES/VOLU ME] IN SERUM OR PLASMA 24 meq/L 22 - 31 11/20 Specimen Type: PLASMA Comment: No hemolysis noted. Ordering Provider: WISAM GRIER Report Released Date/Time: Oct 04, 2023 05:25 PM Reporting Lab: [facility] [address] [place] [phone] Performing Lab: [facility] [address] [place] [phone] [place] [address] COMPREHEN SIVE METABOLIC PANEL CALCIUM [MASS/VOLUM E] IN SERUM OR PLASMA 9.2 mg/dL 8.4 - 10.4 11/20 Specimen Type: PLASMA Comment: No hemolysis noted. Ordering Provider: WISAM GRIER Report Released Date/Time: Oct 04, 2023 05:25 PM Reporting Lab: [facility] [address] [place] [phone] Performing Lab: [facility] [address] [place] [phone] [facility] COMPREHEN SIVE METABOLIC PANEL PROTEIN [MASS/VOLUM E] IN SERUM OR PLASMA 7.2 g/dL 6 - 8.6 11/20 Specimen Type: PLASMA Comment: No hemolysis noted. Ordering Provider: WISAM GRIER Report Released Date/Time: Oct 04, 2023 05:25 PM Reporting Lab: [facility] [address] [facility] [phone] Performing Lab: [facility] [address] [place] [phone] [facility] COMPREHEN SIVE METABOLIC PANEL ALBUMIN [MASS/VOLUM E] IN SERUM OR PLASMA 3.8 g/dL 3.4 - 5 11/20 Specimen Type: PLASMA Comment: No hemolysis noted. Ordering Provider: WISAM GRIER Report Released Date/Time: Oct 04, 2023 05:25 PM Reporting Lab: [facility] [address] [place] [phone] Performing Lab: [facility] [address] [place] [phone] [facility] COMPREHEN SIVE METABOLIC PANEL BILIRUBIN.T OTAL [MASS/VOLUM E] IN SERUM OR PLASMA 0.9 mg/dL 0.2 - 1.2 11/20 Specimen Type: PLASMA Comment: No hemolysis noted. Ordering Provider: WISAM GRIER Report Released Date/Time: Oct 04, 2023 05:25 PM Reporting Lab: [facility] [address] [place] [phone] Performing Lab: [address] [phone] [facility] COMPREHEN SIVE METABOLIC PANEL ALKALINE PHOSPHATASE [ENZYMATIC ACTIVITY/VO LUME] IN SERUM OR PLASMA 71 U/L 40 - 150 11/20 Specimen Type: PLASMA Comment: No hemolysis noted. Ordering Provider: WISAM GRIER Report Released Date/Time: Oct 04, 2023 05:25 PM Reporting Lab: [facility] [address] [place] [phone] Performing Lab: [address] [phone] [facility] COMPREHEN SIVE METABOLIC PANEL ASPARTATE AMINOTRANSF ERASE [ENZYMATIC ACTIVITY/VO LUME] IN SERUM OR PLASMA 16 U/L 5 - 34 11/20 Specimen Type: PLASMA Comment: No hemolysis noted. Ordering Provider: WISAM GRIER Report Released Date/Time: Oct 04, 2023 05:25 PM Reporting Lab: [facility] [address] [place] [phone] Performing Lab: [address] [phone] [facility] COMPREHEN SIVE METABOLIC PANEL ALANINE AMINOTRANSF ERASE [ENZYMATIC ACTIVITY/VO LUME] IN SERUM OR PLASMA 12 U/L 8 - 40 11/20 Specimen Type: PLASMA Comment: No hemolysis noted. Ordering Provider: WISAM GRIER Report Released Date/Time: Oct 04, 2023 05:25 PM Reporting Lab: [facility] [address] [place] [phone] Performing Lab: [address] [phone] [place] [address] COMPREHEN SIVE METABOLIC PANEL GLOMERULAR FILTRATION RATE/1.73 SQ M.PREDICTED [VOLUME RATE/AREA] IN SERUM, PLASMA OR BLOOD BY CREATININE- BASED FORMULA (CKD-EPI 2020) 80.4 60 11/20 Specimen Type: PLASMA Comment: No hemolysis noted. Ordering Provider: WISAM GRIER Report Released Date/Time: Oct 04, 2023 05:25 PM Reporting Lab: [facility] [address] [facility] [phone] Performing Lab: [facility] [address] [place] [phone] [facility] FREE T4 (STL) THYROXINE (T4) FREE [MASS/VOLUM E] IN SERUM OR PLASMA 0.90 ng/mL 0.7 - 1.48 11/20 Specimen Type: PLASMA No comment entered. Ordering Provider: WISAM GRIER Report Released Date/Time: Oct 04, 2023 05:25 PM Reporting Lab: [facility] [address] [facility] [phone] Performing Lab: [facility] [address] [facility] [phone] [facility] HGA1C HEMOGLOBIN A1C/HEMOGLO BIN.TOTAL IN BLOOD 5.6 4.0 - 6.0 11/20 Specimen Type: BLOOD No comment entered. Ordering Provider: WISAM GRIER Report Released Date/Time: Oct 04, 2023 05:25 PM Reporting Lab: [facility] [address] [facility] [phone] Performing Lab: [facility] [address] [facility] [address] [facility] LIPID PANEL (STL) CHOLESTEROL [MASS/VOLUM E] IN SERUM OR PLASMA 69 mg/dL 0 - 200 11/20 Specimen Type: PLASMA Comment: No hemolysis noted. Ordering Provider: WISAM GRIER Report Released Date/Time: Oct 04, 2023 05:25 PM Reporting Lab: [facility] [address] [place] [phone] Performing Lab: [address] [phone] [facility] LIPID PANEL (STL) TRIGLYCERID E [MASS/VOLUM E] IN SERUM OR PLASMA 92 mg/dL 0 - 150 11/20 Specimen Type: PLASMA Comment: No hemolysis noted. Ordering Provider: WISAM GRIER Report Released Date/Time: Oct 04, 2023 05:25 PM Reporting Lab: [facility] [address] [place] [phone] Performing Lab: [address] [phone] [facility] LIPID PANEL (STL) CHOLESTEROL IN LDL [MASS/VOLUM E] IN SERUM OR PLASMA BY CALCULATION 26 mg/dL 11/20 Specimen Type: PLASMA Comment: No hemolysis noted. Ordering Provider: WISAM GRIER Report Released Date/Time: Oct 04, 2023 05:25 PM Reporting Lab: [facility] [address] [place] [phone] Performing Lab: [facility] [address] [place] [phone] [facility] LIPID PANEL (STL) CHOLESTEROL IN HDL [MASS/VOLUM E] IN SERUM OR PLASMA 25 mg/dL 40 11/20 L Specimen Type: PLASMA Comment: No hemolysis noted. Ordering Provider: WISAM GRIER Report Released Date/Time: Oct 04, 2023 05:25 PM Reporting Lab: [facility] [place] [phone] Performing Lab: [address] PROST. SPECIFIC AG.(PB-ST L) PROSTATE SPECIFIC [...] Oct 04, 2023 05:25 PM Reporting Lab: [place] [address] Performing Lab: [address] TSH W/ REFLEX FT4 (STL) THYROTROPIN [UNITS/VOLU ME] IN SERUM OR PLASMA 4.294 u[IU]/ mL 0.47 - 5 11/20 Specimen Type: PLASMA No comment entered. Ordering Provider: WISAM GRIER Report Released Date/Time: Oct 04, 2023 05:25 PM Reporting Lab: [address] [phone] Performing Lab: [address] [phone] [place] [address] VITAMIN D, 25-HYDROX Y 25-HYDROXYV ITAMIN D3 [...] Oct 04, 2023 05:25 PM Reporting Lab: [place] [phone] Performing Lab: [address] [place] [address] [facility] FREE T4 THYROXINE (T4) FREE [MASS/VOLUM E] IN SERUM OR PLASMA 1.34 ng/mL 0.7 - 1.48 11/28 Specimen Type: SERUM No comment entered. Ordering Provider: WISAM GRIER Report Released Date/Time: Nov 19, 2022 04:37 PM Reporting Lab: [address] [phone] Performing Lab: [address] [phone] [facility] HGA1C HEMOGLOBIN A1C/HEMOGLO BIN.TOTAL IN BLOOD 5.6 4.0 - 6.0 11/28 Specimen Type: BLOOD No comment entered. Ordering Provider: WISAM GRIER Report Released Date/Time: Nov 19, 2022 04:37 PM Reporting Lab: [address] [phone] Performing Lab: [address] [phone] [facility] Vital Signs Combined list of inpatient and outpatient Vital Signs from Department of Defense and Veterans Affairs, ranging from 12 months to all on record, depending upon the facility. Vital Sign Value Date Comments Source SYSTOLIC BLOOD PRESSURE 128 11/19/2023 14:57:21 [facility] DIASTOLIC BLOOD PRESSURE 81 11/19/2023 14:57:21 [facility] PULSE OXIMETRY 96 11/19/2023 14:57:21 [facility] WEIGHT 197 11/19/2023 14:57:21 [facility] BMI 26 kg/m2 11/19/2023 14:57:21 [facility] PAIN 0 11/19/2023 14:57:21 [facility] TEMPERATURE 98.1 11/19/2023 14:57:21 [facility] PULSE 64 11/19/2023 14:57[facility] 11/19/2023 14:57:21 [facility] Encounters Combined list of: 1) Encounters from Department of Veterans Affairs facilities going backup to the last 18 months, not all [address] inpatient encounters are included; 2) Encounters from the Department of Defense facilities going backup to 280 months. 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 MARGUERITE PAEZ E 11/18 [facility] Outpatient Encounter [id number] 11/18 [facility] OFFICE O/P EST LOW 20 MIN [id number] Diagnos is: ICD-10- CM 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 MARGUERITE PAEZ E 11/18 [facility] N [facility] IMG RTA DETCJ/MNTR DS STAFF [id number] Diagnos is: ICD-10- CM Z13.5 Encount er for screeni ng for eye and ear disorde TAHIR Acuna 11/18 [facility] Outpatient Encounter [id number] Diagnos is: ICD-10- CM Z13.5 Encount er for screeni ng for eye and ear disorde rs [place]NE DOUGLASS R 11/20 [facility] Outpatient Encounter [id number] BASIM GRIER SHINE T 11/30 [facility] Social History Combined list of available smoking, tobacco, and other social history from [facility] and [facility] facilities. Social History Type Response Date Comment Formerly [facility] e Tobacco smoking status NHIS CT-TOBACCO NEVER USED 11/19/2023 [facility] History of tobacco use CT-TOBACCO FORMER USER 08/02/2022 [facility] History of tobacco use QUIT TOBACCO >7 YEARS AGO 06/20/2006 [facility] [facility] History of tobacco use CURRENT NON-TOBACCO USER-HX OF USE 08/16/2005 [facility] History of tobacco use CURRENT NON-TOBACCO USER-HX OF USE 04/06/2004 [facility] Plan of Care List of future care activities from Department of [facility] facilities. Additional future care activities may be listed in the Assessment and Plan section. Date/Time Care Activity Care Activity Detail Facili ty 09/28/2024 AMBULATORY - MEDICINE AMBULATORY - MEDICI [facility]
--- NOTE | 2024-09-08 01:23 | ECG_ITS ---
Test Date: 2024-09-08 01:24:52 Measurements Intervals [place] Rate: 74 P: 61 MD: 192 QRS: -67 QRSD: 164 T: 43 QT: 415 QTc: 461 Interpretive Statements SINUS RHYTHM RIGHT BUNDLE BRANCH BLOCK LEFT ANTERIOR FASCICULAR BLOCK BASELINE ARTIFACT- I, II, AVR, AVL ABNORMAL ECG Compared to ECG 04/12/2024 13:26:28 Ventricular premature complex(es) no longer present Electronically Signed On 09-08-2024 06:04:53 CDT by Hollis Reynoso D.O.
[2024-09-08 01:56] LABS: Basophils Percent Auto 0.5 % (0.2-1.2); Eosinophils Absolute Auto 0.2 K/mm3 (0-0.3); Eosinophils Percent Auto 2.7 % (0-4.4); Hematocrit 33.3 % (42.0-52.0); Immature Granulocyte Absolute 0.02 K/mm3 (0.00-0.031); Immature Granulocyte Percent A 0.3 % (0-0.5); Lymphocytes Absolute Auto 0.82 K/mm3 (0.9-3.2); Lymphocytes Percent Auto 12.5 % (18.3-44.2); Mean Corpuscular Hemoglobin 32.1 pg (26-34); Mean Corpuscular Volume 97.1 fl (80-100); Mean Platelet Volume 8.7 fl (7.4-10.4); Monocytes Absolute Auto 0.9 K/mm3 (0.1-0.6); Monocytes Percent Auto 13.1 % (2.6-8.5); Neutrophils Absolute Auto 4.7 K/mm3 (1.3-6.7); Neutrophils Percent Auto 70.9 % (45.5-73.1); Platelet Count Result 157 k/mm3 (150-375); Red Blood Count 3.43 M/mm3 (4.6-6.20); Red Cell Distribution Width 14.9 % (11.5-14.5); White Blood Count 6.6 K/mm3 (4.5-10.0)
[2024-09-08 02:06] LABS: Alanine Aminotransferase 24 U/L (6-50); Albumin Level 4.1 g/dL (3.5-5.1); Alkaline Phosphatase 74 U/L (38-126); Anion Gap 6 mmol/L (4-12); Aspartate Amino Transferase 28 U/L (17-59); Bilirubin,Total 0.5 mg/dL (0.2-1.3); Blood Urea Nitrogen 17 mg/dL (9-20); Calcium 9.1 mg/dL (8.4-10.2); Carbon Dioxide 27 mmol/L (22-30); Chloride 105 mmol/L (98-107); Estimated CRCL calculation 65 ml/min; Estimated Glomerular Filt Rate > 60; Glucose 110 mg/dL (65-110); Potassium 3.5 mmol/L (3.4-5.0); Sodium 138 mmol/L (137-145); Total Protein 7.3 g/dL (6.3-8.2)
[2024-09-08 02:14] LABS: INR 1.1; Prothrombin Time 14.3 Seconds (11.1-14.7)
[2024-09-08 02:15] LABS: Partial Thromboplastin Time 26.6 Seconds (22.3-36.8)
[2024-09-08 02:18] LABS: Troponin I < 0.012 ng/mL (0.000-0.034)
[2024-09-08 02:32] LABS: Influenza A QL RT-PCR Negative (Negative); Influenza B QL RT-PCR Negative (Negative); RSV RNA, RT-PCR Negative (Negative); SARS-CoV-2 RNA PCR Negative (Negative)
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
--- NOTE | 2024-09-08 04:50 | ECG_ITS ---
Test Date: 2024-09-08 04:42:25 Measurements Intervals [place] Rate: 62 P: 61 [place]: 186 QRS: -49 QRSD: 165 T: 31 QT: 439 QTc: 448 Interpretive Statements SINUS RHYTHM RIGHT BUNDLE BRANCH BLOCK LEFT ANTERIOR FASCICULAR BLOCK ABNORMAL ECG Compared to ECG 09/08/2024 01:24:52 No significant changes Electronically Signed On 09-08-2024 06:05:07 CDT by Hollis Reynoso D.O.
[2024-09-08 05:30] LABS: Troponin I < 0.012 ng/mL (0.000-0.034)
== END 2024-09-08 05:37 | disposition home or self-care (01) ==
PROVIDERS: Emergency Provider Emergency Medicine; PCP Family Medicine
DX: J98.4 Other disorders of lung (principal); Z20.822 Contact with and (suspected) exposure to COVID-19; I25.10 Atherosclerotic heart disease of native coronary artery without angina pectoris; I25.2 Old myocardial infarction; I50.30 Unspecified diastolic (congestive) heart failure; I11.0 Hypertensive heart disease with heart failure; I25.5 Ischemic cardiomyopathy; I42.0 Dilated cardiomyopathy; E03.9 Hypothyroidism, unspecified; Z95.5 Presence of coronary angioplasty implant and graft; Z86.16 Personal history of COVID-19; Z85.51 Personal history of malignant neoplasm of bladder; Z86.0101 Personal history of adenomatous and serrated colon polyps; Z87.891 Personal history of nicotine dependence; Z90.49 Acquired absence of other specified parts of digestive tract; Z79.02 Long term (current) use of antithrombotics/antiplatelets; Z79.899 Other long term (current) drug therapy; I45.2 Bifascicular block
CPT/HCPCS: 36415; 71045; 80053; 83735; 84484; 85025; 85610; 85730; 87637; 93005; 99284

== ENCOUNTER 2025-01-17 22:28 | Emergency (ER) | payer MEDICARE, SELFPAY ==
[2025-01-17] VITALS (11 sets, daily range): BP systolic 104–123; BP diastolic 66–82; PULSE 80–90; RESP 17–19; TEMP 36.5; O2SAT 95–99
--- NOTE | ~2025-01-17 | CT_ITS ---
EXAMINATION: CTA chest PE protocol DATE: 01/18/2025 00:25 INDICATION: Right chest pain. Shortness of breath. TECHNIQUE: Computed tomography angiography (CTA) of the chest was performed with 100 mL Omnipaque-350 intravenous contrast timed to evaluate the pulmonary arteries. Coronal maximum intensity projection 3D-reconstructions were created by the technologist. Automated exposure control and iterative reconstruction technique were employed. The dose-length product was 363.05 mGy-cm. COMPARISON: Chest CT 04/12/2024 FINDINGS: The lungs demonstrate mild atelectasis. No pleural effusion. Cardiomegaly is noted. There are coronary artery calcifications. No pericardial effusion. There are acute pulmonary emboli in right upper lobe and right lower lobe. There is a 1.9 cm cyst in the liver. There are changes of cholecystectomy. There is severe cervical spondylosis and mild thoracic spondylosis. IMPRESSION: 1. Acute pulmonary emboli in right upper lobe and right lower lobe. No right heart strain. Reviewed, dictated and finalized at location E. IMPRESSION: 1. Acute pulmonary emboli in right upper lobe and right lower lobe. No right he art strain.
--- OUTSIDE RECORDS SUMMARY | 2025-01-17 22:30 | XMS_ITS | Encounter Summary ---
Author Organization [employer] Address [address] [place] [address] Care Team Providers Care Audiologist Name Role Phone Rosanne Santana MD Primary Care Provider [phone] Encounter Details Date Type Department Care Team (Late st Contact Info) Description 11/06/[address] [facility] Support [facility] (Adt Card[facility]) [address] [place] [id number] Hudson Lindsay MD NO ADDRESS ON FILE Social History Tobacco Use Types Packs/Day Years Used Date Smoking Tobacco: Never Assessed Sex and Gender Information Value Date Recorded Sex Assigned at Not on file Legal Sex Male 4:23 AM CHIEF COUNSEL Gender Identity Not on file Sexual Orientation Not on file documented as of this encounter Plan of Treatment Not on file documented as of this encounter Visit Diagnoses Not on filedocumented in this encounter Care Teams Audiologist Relationship Specialty Start Date End Date Rosanne Santana MD [address] [place] [address] PCP - General 10/24/03 documented as of this encounter
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
--- OUTSIDE RECORDS SUMMARY | 2025-01-17 22:30 | XMS_ITS | Encounter Summary ---
Author Organization [facility] Address [address] [place] [address] Care Team Providers Care Casino Cashier Manager Name Role Phone Nikky Reyes MD Primary Care Provider Encounter Details Date Type Department Care Team (Late st Contact Info) Description 11/27/2023 Prep for Procedure [facility] Diagnostic Imaging [address] [place], [place] [id number] Kwaku Martin MD [address] 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 11/28/2023 8:53 AM. [...] Procedure Note Richard Chaparro MD - 11/28/[address] [address] PROCEDURE: XR CHEST PA+LAT. 11/28/2023 8:53 AM. [...] Rule Out 04/10/2024 04/10/2024 04/10/2024 1:35 PM FLIGHT SECURITY SPECIALIST Influenza - Seasonal 04/10/2024 04/10/2024 025 12:32 AM FLIGHT SECURITY SPECIALIST documented as of this encounter Care Teams Casino Cashier Manager Relationship Specialty Start Date End Date Nikky Reyes MD [address] [place] [address] PCP - General FAMILY PRACTICE 05/04/21 documented as of this encounter
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
--- OUTSIDE RECORDS SUMMARY | 2025-01-17 22:30 | XMS_ITS | Encounter Summary ---
Author Organization [employer] Address 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 Jono Richards MD [address] [place] [address] Coronary Atherosclerosis of [place] Coronary Artery (Primary Dx) Social History Tobacco Use Types Packs/Day Years Used Date Smoking Tobacco: Never Assessed Sex and Gender Information Value Date Recorded Sex Assigned at Not on file Legal Sex Male 4:23 AM INFORMATION COORDINATOR Gender Identity Not on file Sexual Orientation Not on file documented as of this encounter Plan of Treatment Not on file documented as of this encounter Visit Diagnoses Diagnosis Coronary atherosclerosis of [place] coronary artery- Primary documented in this encounter Care Teams Certified Master Safecracker Relationship Specialty Start Date End Date Rosanne Santana MD [address] [place] [address] [place] [address] PCP - General 10/24/03 documented as of this encounter
--- OUTSIDE RECORDS SUMMARY | 2025-01-17 22:30 | XMS_ITS | Encounter Summary ---
Author Organization [employer] Address [address] [place] [address] Care Team Providers Care Last Repairer Name Role Phone Rosanne Santana MD Primary Care Provider [phone] Encounter Details Date Type Department Care Team (Latest Contact Info) Description 02/13/2006 Outpatient Historical [facility] Rosanne Santana MD [address] [place] [address] Cor Athrscl-Uns Vessel (Primary Dx) Social History Tobacco Use Types Packs/Day Years Used Date Smoking Tobacco: Never Assessed Sex and Gender Information Value Date Recorded Sex Assigned at Not on file Legal Sex Male 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
--- OUTSIDE RECORDS SUMMARY | 2025-01-17 22:30 | XMS_ITS | Encounter Summary ---
Author Organization [employer] Address [address] [place] [address] Care Team Providers Care Pile Header Name Role Phone Rosanne Santana MD Primary Care Provider [phone] Encounter Details Date Type Department Care Team (Late st Contact Info) Description 06/25/2007 Inpatient Historical HIS [place] [address] [facility] [address] [place] [address] Jono Scherer MD [address] [facility] [address] [place] [address] Unspecified Chest Pain Social History Tobacco Use Types Packs/Day Years Used Date Smoking Tobacco: Never Assessed Sex and Gender Information Value Date Recorded Sex Assigned at Not on file Legal 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 #: [id number] POC: Attending MD: Romel Performing MD: Romel [...] 09:06:43 Procedure Note Provider, Historical - 07/01/2007 [address] [place] [address] [email or web address] Cardiac Catheterization Comprehensive Report Patient: Mitchell Rodriguez Study ID: [id number] Gender: M : 1950 Age: 57 years Race: 1 Room: Bed: Height: 73 in ( 185.4 cm ) Study Date: June 25, 2007 Patient status: Inpatient Weight: 183.9 lb ( 83.6 kg ) Access. #: [id number] POC: Attending MD: Romel Lozada MD: Romel [...] Performing Organization Address City/[facility]/ZIP Co de Phone Number INTERFACE SYSTEM Refer to clinic/hospital department * CKMB W/REFLEX CK (06/26/2007 4:50 AM CDT) CKMB 3.0 <=6.7 ng/mL [facility] CKMB INTERP Negative [facility] Blood specimen (specimen) 06/26/2007 4:50 AM CDT 06/26/2007 4:59 AM CDT Jono Scherer MD CHEMISTRY ORDERABLES Edited Performing Organization Address [facility]/ZIP Co de Phone Number [facility] [address] [place] [address] * (ABNORMAL) CBC WITH DIFFERENTIAL (06/26/2007 4:50 AM CDT) WBC 6.5 4.0 - 9.8 K/uL [facility] MCH 31.8 27.2 - 32.6 pg [facility] MPV 9.9 9.3 - 12.4 fL [facility] HEMATOCRIT 40.2 40.0 - 48.0 % [facility] RDW-STDEV 44.4 37.1 - 48.7 fL [facility] RBC 4.31(L) 4.50 - 5.40 M/uL [facility] MCHC 34.1 31.5 - 35.5 % [facility] MCV 93.3 82.0 - 99.0 fL [facility] PLATELETS 146 140 - 350 K/uL [facility] HEMOGLOBIN 13.7 13.6 - 16.5 g/dL [facility] RDW 13.1 11.5 - 14.5 % [facility] BASOPHILS 0 0 - 2 % [facility] BASOPHILS ABSOLUTE 0.02 0.00 - 0.20 K/uL [facility] MONOCYTES 13 3 - 13 % [facility] MONOCYTE ABSOLUTE 0.83 0.10 - 1.30 K/uL [facility] NEUTROPHILS 66 45 - 70 % [facility] NEUTROPHIL ABSOLUTE 4.29 1.90 - 7.00 K/uL [facility] EOSINOPHILS 3 0 - 7 % [facility] EOSINOPHIL ABSOLUTE 0.16 0.00 - 0.70 K/uL [facility] LYMPHOCYTES 18 16 - 45 % [facility] LYMPHOCYTE ABSOLUTE 1.19 0.70 - 4.50 K/uL [facility] Blood specimen (specimen) 06/26/2007 4:50 AM CDT 06/26/2007 4:59 AM CDT Jono Scherer MD HEMATOLOGY ORDERABLES Edited Performing Organization Address [facility] Phone Number INTERFACE SYSTEM Refer to clinic/hospital department [facility] [address] [place] [address] * (ABNORMAL) PHOSPHORUS (06/26/2007 4:50 AM CDT) PHOSPHORUS 2.2(L) 2.5 - 4.5 mg/dL [facility] Blood specimen (specimen) 06/26/2007 4:50 AM CDT 06/26/2007 4:59 AM CDT Jono Scherer MD CHEMISTRY ORDERABLES Final Re sult Performing Organization Address [facility] de Phone Number [facility] [address] [place] [address] * MAGNESIUM LEVEL (06/26/2007 4:50 AM CDT) MAGNESIUM 2.2 1.5 - 2.5 mg/dL [facility] Blood specimen (specimen) 06/26/2007 4:50 AM CDT 06/26/2007 4:59 AM CDT Jono Scherer MD CHEMISTRY ORDERABLES Final Re sult Performing Organization Address [facility] de Phone Number [facility] [address] [place] [address] * (ABNORMAL) BASIC METABOLIC PANEL (06/26/2007 4:50 AM CDT) BUN 15 6 - 20 mg/dL [facility] CHLORIDE 103 96 - 108 mmol/L [facility] GLUCOSE 97 65 - 99 mg/dL [facility] SODIUM 135 135 - 145 mmol/L [facility] CALCIUM 8.3(L) 8.4 - 10.2 mg/dL [facility] CO2 26 22 - 30 mmol/L [facility] CREATININE 0.78 0.67 - 1.17 mg/dL [facility] POTASSIUM 3.7 3.5 - 4.9 mmol/L [facility] GFR, >60 >=60 mL/min/1. 7 sq meter [facility] GFR >60 >=60 mL/min/1. 7 sq meter [facility] Comment: Estimated GFR rate interpretative information for both Americans and non- Americans is available on the [facility] at: [email or web address] Select: Lab Policies and Procedures Select: Reference Ranges - GFR Blood specimen (specimen) 06/26/2007 4:50 AM CDT 06/26/2007 4:59 AM CDT Jono Scherer MD CHEMISTRY ORDERABLES Edited [facility] [address] [place] [address] * (ABNORMAL) TROPONIN (W/REFLEX CKMB/CK) (06/26/2007 4:50 AM CDT) TROPONIN T 0.06(AA) <=0.03 ng/mL [facility] Comment: Persistent abnormal result TROPONIN T INTERP See Below [facility] Comment: Elevated Troponin-T,Consistent with Myocardial Injury Blood specimen (specimen) 06/26/2007 4:50 AM CDT 06/26/2007 4:59 AM CDT Jono Scherer MD CHEMISTRY ORDERABLES Edited [facility] [address] [place] [address] * CKMB W/REFLEX CK (06/25/2007 8:18 PM CDT) CKMB 5.8 <=6.7 ng/mL [facility] CKMB INTERP Negative [facility] Blood specimen (specimen) 06/25/2007 8:18 PM CDT 06/25/2007 8:23 PM CDT Jono Scherer MD CHEMISTRY ORDERABLES Edited Performing Organization Address [facility] Co de Phone Number [facility] [address] [place] [address] * (ABNORMAL) TROPONIN (W/REFLEX CKMB/CK) (06/25/2007 8:18 PM CDT) [facility] TROPONIN T 0.05(AA) <=0.03 ng/mL [facility] Comment: Results called to Lynne at 06/25/07 9:43 PM and read back verified. TROPONIN T INTERP See Below [facility] Comment: Elevated Troponin-T,Consistent with Myocardial Injury Blood specimen (specimen) 06/25/2007 8:18 PM CDT 06/25/2007 8:23 PM CDT Jono Scherer MD CHEMISTRY ORDERABLES Edited Performing Organization Address City/[facility]/ZIP Co de Phone Number [facility] [address] [place] [address] * (ABNORMAL) BASIC METABOLIC PANEL (06/25/2007 1:44 PM CDT) Pathologist [facility] GLUCOSE 94 65 - 99 mg/dL [facility] SODIUM 138 135 - 145 mmol/L [facility] CALCIUM 8.1(L) 8.4 - 10.2 mg/dL [facility] CO2 24 22 - 30 mmol/L [facility] CREATININE 0.76 0.67 - 1.17 mg/dL [facility] POTASSIUM 3.8 3.5 - 4.9 mmol/L [facility] BUN 11 6 - 20 mg/dL [facility] CHLORIDE 105 96 - 108 mmol/L [facility] GFR, >60 >=60 mL/min/1. 7 sq meter [facility] GFR >60 >=60 mL/min/1. 7 sq meter [facility] Comment: Estimated GFR rate interpretative information for both Americans and non- Americans is available on the [facility] at: [email or web address] Select: Lab Policies and Procedures Select: Reference Ranges - GFR Blood specimen (specimen) 06/25/2007 1:44 PM CDT 06/25/2007 1:55 PM CDT us Alena Guardado MD CHEMISTRY ORDERABLES Edited [facility] [address] [place] [address] * XR CHEST PA OR AP (06/25/2007 12:20 PM CDT) Anatomical Region Laterality Modality Chest Other 06/25/2007 12:2 0 PM CDT Narrative 06/25/2007 12:50 PM CDT [facility] [address] [place], [place] [address] Admit Date: 06/25/2007 MITCHELL RODRIGUEZ Sex: M Admit Prov: PAU DE LA CRUZ J Date: 1950 Primary Care Prov: CMRN: [id number] Room: [address] [place] [address] SSN: [id number] IMAGING SERVICES Ordering Prov: N/A Accession Number: [id number] Interpretation Chest single view 06/25/2007 History: Chest pain Findings: The right costophrenic angle is cut off the film. No infiltrate, pneumothorax or pleural effusion is seen. The cardiac silhouette appears prominent. . Dictated by: NIYAH HULL 06/25/2007 12:49 Electronically signed by: NIYAH HULL 06/25/2007 12:50 Procedure Note Niyah Hull - 06/25/2007 [facility] [address] [place], [place] [address] Admit Date: 06/25/2007 MICHAELMITCHELL VEE Sex: M Admit Prov: PAU DE LA CRUZ Date: 1950 Primary Care Prov: CMRN: [id number] Room: [address] [place] [address] SSN: [id number] IMAGING SERVICES Ordering Prov: N/A Interpretation Chest [...] PM CDT) TROPONIN T <0.01 <=0.03 ng/mL [facility] TROPONIN T INTERP Negative [facility] Blood specimen (specimen) 06/25/2007 12:00 PM CDT 06/25/2007 12:12 PM CDT Jono Scherer MD CHEMISTRY ORDERABLES Edited [facility] [address] [place] [address] * (ABNORMAL) PTT (06/25/2007 12:00 PM CDT) PTT 79.1(H) 24.4 - 36.4 Seconds [facility] Comment: PTT Therapeutic Range: Heparin [...] Performing Organization Address City/[facility] Co de Phone Number [facility] [address] [place] [address] * (ABNORMAL) PROTIME-INR (06/25/2007 12:00 PM CDT) PROTIME 22.6(H) 12.7 - 15.1 Seconds [facility] INR 2.0(H) 0.9 - 1.1 [facility] Comment: INR Therapeutic Range: Adult: [...] Scherer MD HEMATOLOGY ORDERABLES Final R esult [facility] [address] [place], [address] [address] * (ABNORMAL) CBC WITH DIFFERENTIAL (06/25/2007 12:00 PM CDT) MCV 93.4 82.0 - 99.0 fL [facility] PLATELETS 156 140 - 350 K/uL [facility] HEMOGLOBIN 14.0 13.6 - 16.5 g/dL [facility] RDW 13.2 11.5 - 14.5 % [facility] WBC 6.3 4.0 - 9.8 K/uL [facility] MCH 32.0 27.2 - 32.6 pg [facility] MPV 10.0 9.3 - 12.4 fL [facility] HEMATOCRIT 40.8 40.0 - 48.0 % [facility] RDW-STDEV 44.9 37.1 - 48.7 fL [facility] RBC 4.37(L) 4.50 - 5.40 M/uL [facility] MCHC 34.3 31.5 - 35.5 % [facility] BASOPHILS 0 0 - 2 % [facility] BASOPHILS ABSOLUTE 0.01 0.00 - 0.20 K/uL [facility] MONOCYTES 10 3 - 13 % [facility] MONOCYTE ABSOLUTE 0.64 0.10 - 1.30 K/uL [facility] NEUTROPHILS 69 45 - 70 % [facility] NEUTROPHIL ABSOLUTE 4.33 1.90 - 7.00 K/uL [facility] EOSINOPHILS 2 0 - 7 % [facility] EOSINOPHIL ABSOLUTE 0.10 0.00 - 0.70 K/uL [facility] LYMPHOCYTES 19 16 - 45 % [facility] LYMPHOCYTE ABSOLUTE 1.17 0.70 - 4.50 K/uL [facility] Blood specimen (specimen) 06/25/2007 12:00 PM CDT 06/25/2007 12:12 PM CDT us Jono Scherer MD HEMATOLOGY ORDERABLES Edited Performing Organization Address City/[facility]/ZIP Co de Phone Number INTERFACE SYSTEM Refer to clinic/hospital department [facility] [address] [place] [address] * POC ACTIVATED CLOTTING TIME (06/25/2007 10:51 AM CDT) ACT POC 328 Seconds [facility] Comment: Note sheath pull range change effective 09/20/2005. ACT value for sheath pull at [facility] has been established to be < or = to 140. (See also Nursing Procedures for sheath pull in related nursing areas) Blood specimen (specimen) 06/25/2007 10:51 AM CDT 06/25/2007 10:51 AM CDT us Pau De La Cruz MD POINT OF CARE TESTING Final Re sult Performing Organization Address [facility] de Phone Number [facility] [address] [place] [address] documented in this encounter Visit Diagnoses Diagnosis Chest pain, unspecified documented in this encounter Care Teams Pile Header Relationship Specialty Start Date End Date Rosanne Santana MD [address] [place] [address] [place] [address] PCP - General 10/24/03 documented as of this encounter
--- OUTSIDE RECORDS SUMMARY | 2025-01-17 22:30 | XMS_ITS | Encounter Summary ---
Author Organization [facility] Address [address] [place] [address] Care Team Providers Care Hand Candle Molder Name Role Phone Nikky Reyes MD Primary Care Provider Encounter Details Date Type Department Care Team (Late st Contact Info) Description 11/27/2023 Prep for Procedure [facility] [place], [place] [id number] Kwaku Martin MD [address] [facility] [address] [place], [place] [id number] Social History Tobacco Use Types Packs/Day Years Used Date Smoking Tobacco: Former Cigarettes 2 15 S tarted: 1967 Smokeless Tobacco: Never Alcohol Use Standard Drinks/Week Comments Not Currently 0 (1 standard drink = 0.6 oz pur e alcohol) sober 43 years Sex and Gender Information Value Date Recorded Sex Assigned at Not on file 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 SPECIES NOT STAPH. AUREUS (A) 11/30/2023 9:35 AM CDT [facility] URINE SPECIMEN OBTAINED BY CLEAN CATCH PROCEDURE / Unknown 11/28/2023 8:45 AM CDT 11/28/2023 8:56 AM CDT Narrative Organism Antibiotic Method Susceptibility Staph. species not staph. aureus NITROFURANTOIN NIRMALA (V ITEK) <=16: Sensitive Staph. species not staph. aureus LEVOFLOXACIN NIRMALA (VIT EK) 4: Resistant Staph. species not staph. aureus OXACILLIN NIRMALA (VIT EK) >=4: Resistant Staph. species not staph. aureus TRIMETH-SULFAMETH. NV C (VITEK) 20: Sensitive Staph. species not staph. aureus TETRACYCLINE NIRMALA (VIT EK) >=16: Resistant Staph. species not staph. aureus VANCOMYCIN NIRMALA (VIT EK) 2: Sensitive Kwaku Martin MD MICROBIOLOGY - GENERAL ORDERABLES Final Result [facility] [address] [id number], * (ABNORMAL) URINALYSIS (11/28/2023 8:45 AM CDT) SPECIMEN TYPE URINE CLEAN CATCH 11/28/2023 8:53 AM CDT [facility] COLOR (U) YELLOW 11/28/2023 9:11 AM CDT [facility] TRANSPARENCY TURBID 11/28/2023 9:11 AM CDT [facility] SPECIFIC GRAVITY (U) 1.014 1.001 - 1.030 11/28/2023 9:11 AM CDT [facility] U PH 5.5 5.0 - 9.0 11/28/2023 9:11 AM CDT [facility] LEUKOCYTES (U) 500(A) NEGATIVE 11/28/2023 9:11 AM CDT [facility] NITRITES 1+(A) NEGATIVE 11/28/2023 9:11 AM T [facility] PROTEIN RANDOM (U) 70(H) <30 MG/DL 11/28/2023 9:11 AM CDT [facility] GLUCOSE (U) NORMAL NORMAL MG/DL 11/28/2023 9:11 AM CDT [facility] KETONES MG/DL (U) NEGATIVE NEGATIVE MG/DL 11/28/2023 9:11 AM CDT [facility] UROBILINOGEN NORMAL NORMAL MG/DL 11/28/2023 9:11 AM T [facility] BILIRUBIN (U) NEGATIVE NEGATIVE MG/DL 11/28/2023 9:11 AM CDT [facility] BLOOD (U) 3+(A) NEGATIVE 11/28/2023 9:11 AM T [facility] MUCUS RARE /LPF 11/28/2023 9:11 AM T [facility] WBC/HPF >100(H) <6 /HPF 11/28/2023 9:11 AM T [facility] WBC CLUMPS PRESENT 11/28/2023 9:11 AM T [facility] RBC/HPF 21(H) <6 /HPF 11/28/2023 9:11 AM T [facility] BACTERIA (U) MODERATE(A) NONE /HPF 11/28/2023 9:11 AM T [facility] URINE SPECIMEN OBTAINED BY CLEAN CATCH PROCEDURE / Unknown 11/28/2023 8:45 AM CDT us Kwaku Martin MD URINE ORDERABLES Final Result [facility] [address] [place] [address], [place] [phone] * (ABNORMAL) BASIC METABOLIC PANEL (11/28/2023 8:43 AM CDT) [facility] GLUCOSE 110(H) 70 - 99 MG/DL 11/28/2023 10:22 AM CDT [facility] BUN 12 7 - 18 MG/DL 11/28/2023 10:22 AM CDT [facility] CREATININE S/P/B 1.19 0.7 - 1.3 MG/DL 11/28/2023 10:22 AM CDT [facility] SODIUM S/P/B 138 136 - 145 MMOL/L 11/28/2023 10:22 AM CDT [facility] POTASSIUM S/P/B 3.5 3.5 - 5.1 MMOL/L 11/28/2023 10:22 AM T [facility] CHLORIDE S/P/B 106 97 - 115 MMOL/L 11/28/2023 10:22 AM T [facility] CO2 27.4 21 - 32 MMOL/L 11/28/2023 10:22 AM T [facility] CALCIUM S/P/B 9.2 8.5 - 10.1 MG/DL 11/28/2023 10:22 AM T [facility] ANION GAP 4.6 2 - 10 MMOL/L 11/28/2023 10:22 AM T [facility] BUN CREATININE RATIO 10.1 6 - 26 11/28/2023 10:22 AM T [facility] GFR ESTIMATE 64(L) >90 ML/MIN/1.7 3 M2 11/28/2023 10:22 AM T [facility] Comment: NOTE: eGFR is not [...] Kwaku Martin MD LABORATORY Final R esult [facility] [address] [place] [address], * (ABNORMAL) CBC W/DIFF AUTOMATED (11/28/2023 8:43 AM CDT) WBC 7.86 4.5 - 11.0 x10'3/uL 11/28/2023 9:12 AM CDT [facility] RBC 4.08(L) 4.70 - 6.10 x10'6/uL 11/28/2023 9:12 AM CDT [facility] HGB 13.1(L) 14.0 - 18.0 G/DL 11/28/2023 9:12 AM CDT [facility] HCT 39.3(L) 43.0 - 54.0 % 11/28/2023 9:12 AM CDT [facility] MCV 96.3(H) 80.0 - 94.0 FL 11/28/2023 9:12 AM CDT [facility] MCH 32.1(H) 27.0 - 31.0 PG 11/28/2023 9:12 AM CDT [facility] MCHC 33.3 32.0 - 36.0 G/DL 11/28/2023 9:12 AM CDT [facility] RDW 14.4 11.5 - 14.5 % 11/28/2023 9:12 AM CDT [facility] PLT 236 130 - 400 x10'3/uL 11/28/2023 9:12 AM CDT [facility] MPV 9.3 9.3 - 12.2 FL 11/28/2023 9:12 AM CDT [facility] DIFFERENTIAL TYPE AUTOMATED DIFFERENTIAL 11/28/2023 9:12 AM CDT [facility] NEUTROPHILS % 67.3 % 11/28/2023 9:12 AM CDT [facility] LYMPHOCYTES % 17.9 % 11/28/2023 9:12 AM CDT [facility] MONOCYTES % 11.6 % 11/28/2023 9:12 AM CDT [facility] EOSINOPHILS 2.2 % 11/28/2023 9:12 AM CDT [facility] BASOPHILS 0.6 % 11/28/2023 9:12 AM CDT [facility] IMMATURE GRANS % 0.4 % 11/28/19 9:12 AM CDT [facility] ABS. NEUTROPHILS 5.29 1.80 - 7.70 x10'3/uL 11/28/2023 9:12 AM CDT [facility] ABS. LYMPHOCYTES 1.41 1.00 - 4.80 x10'3/uL 11/28/2023 9:12 AM CDT [facility] ABS. MONOCYTES 0.91(H) 0.30 - 0.82 x10'3/uL 11/28/2023 9:12 AM CDT [facility] ABS. EOSINOPHILS 0.17 0.04 - 0.54 x10'3/uL 11/28/2023 9:12 AM CDT [facility] ABS. BASOPHILS 0.05 0.01 - 0.08 x10'3/uL 11/28/2023 9:12 AM CDT [facility] ABS. 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
--- OUTSIDE RECORDS SUMMARY | 2025-01-17 22:30 | XMS_ITS | Encounter Summary ---
Author Organization [employer] Address [address] [place] [address] Care Team Providers Care Donkey Doctor Name Role Phone Rosanne Santana MD Primary Care Provider [phone] Encounter Details Date Type Department Care Team (Latest Contact Info) Description 11/06/2004 Outpatient Historical [facility] CARDIOPULMONARY Rosanne Santana MD [address] 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 [place] [address] PCP - General 10/24/03 documented as of this encounter
--- OUTSIDE RECORDS SUMMARY | 2025-01-17 22:30 | XMS_ITS | Encounter Summary ---
Author Organization [employer] Address [address] [place] [address] Care Team Providers Care Manager Drilling Name Role Phone Rosanne Santana MD Primary Care Provider [phone] Encounter Details Date Type Department Care Team (Late st Contact Info) Description 05/03/1998 Emergency [facility] EMERGENCY ROOM [facility] [place], [address] [facility] [address] [place] [address] Er, Authorized P NO ADDRESS ON FILE Other specified sites of sprains and strains (Primary Dx) Social History Tobacco Use Types Packs/Day Years Used Date Smoking Tobacco: Never Assessed Sex and Gender Information Value Date Recorded Sex Assigned at Not on file Legal Sex Male 4:23 AM [employer]IOR [employer]CHIT[employer] Gender Identity Not on file Sexual Orientation Not on file documented as of this encounter Plan of Treatment Not on file documented as of this encounter Visit Diagnoses Diagnosis Other specified sites of sprains and strains- Primary documented in this encounter Care Teams Manager Drilling Relationship Specialty Start Date End Date Rosanne Santana MD [address] [place] [address] [address] [place] [address] PCP - General 10/24/03 documented as of this encounter
--- OUTSIDE RECORDS SUMMARY | 2025-01-17 22:30 | XMS_ITS | Encounter Summary ---
Author Organization [employer] Address 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
--- OUTSIDE RECORDS SUMMARY | 2025-01-17 22:30 | XMS_ITS | Encounter Summary ---
Author Organization [facility] Address [address] [place] [address] Care Team Providers Care Catalyst Plant Supervisor Name Role Phone Rosanne Santana MD Primary Care Provider [phone] Encounter Details Date Type Department Care Team (Latest Contact Info) Description 09/24/2007 Outpatient Historical [facility] Rosanne Santana MD [address] [place] [address] Coronary Atherosclerosis of [place] Coronary Artery Social History Tobacco Use Types Packs/Day Years Used Date Smoking Tobacco: Never Assessed Sex and Gender Information Value Date Recorded Sex Assigned at Not on file 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 [place], [place] [address] Admit Date: 09/24/2007 MITCHELL RODRIGUEZ Sex: M Admit Prov: ROSANNE SANTANA Date: 1950 Primary Care Prov: CMRN: [id number] Room: [facility] SSN: [id number] IMAGING SERVICES Ordering Prov: N/A Interpretation Date [...] encounter Visit Diagnoses Diagnosis Coronary atherosclerosis of [place] coronary artery documented in this encounter Care Teams Catalyst Plant Supervisor Relationship Specialty Start Date End Date Rosanne Santana MD [address] [place] [address] PCP - General 10/24/03 documented as of this encounter
--- OUTSIDE RECORDS SUMMARY | 2025-01-17 22:30 | XMS_ITS | Encounter Summary ---
Author Organization [employer] Address [address] [place] [address] Care Team Providers Care Play Back Operator Name Role Phone Rosanne Santana MD Primary Care Provider [phone] Encounter Details Date Type Department Care Team (Late st Contact Info) Description 02/13/2006 Outpatient Historical [facility] Support Serv. 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
--- OUTSIDE RECORDS SUMMARY | 2025-01-17 22:30 | XMS_ITS | Encounter Summary ---
Author Organization [employer] Address [address] [place] [address] Care Team Providers Care Supervisor Inspection And Testing Name Role Phone Rosanne Santana MD Primary Care Provider [phone] Encounter Details Date Type Department Care Team (Latest Contact Info) Description 05/16/2006 Outpatient Historical [facility] Rosanne Santana MD [address] [place] [address] AMI Inferolateral Wall (CMS/HCC) (Primary Dx) Social History Tobacco Use Types Packs/Day Years Used Date Smoking Tobacco: Never Assessed Sex and Gender Information Value Date Recorded Sex Assigned at Not on file 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
--- OUTSIDE RECORDS SUMMARY | 2025-01-17 22:30 | XMS_ITS | Encounter Summary ---
Author Organization [facility] Address [address] [place] [address] Phone Care Team Providers Care Flatwork Finisher Hand Name Role Phone Nikky Ryees MD Primary Care Provider Venkat Vivar DO Unavailable [phone] Kwaku Martin MD Unavailable [phone] Richard Hargrove MD Unavailable [phone] Adelso Quiñones MD Unavailable [phone] Brenton Cabrera MD Unavailable Encounter Details Date Type Department Care Team (Late st Contact Info) Description 12/15/2024 Results Follow-Up [facility] Medicine Physicians [facility] Oncology [facility] [address] [place] [phone] Laura Arias, RN CT Chest Abdomen Pelvis W Contrast Social History Tobacco Use Types Packs/Day Years Used Date Smoking Tobacco: Never Smokeless Tobacco: Never AUDIT-C Answer Date Recorded Q1: How often do you have a drink containing alcohol? Never 09/13/2024 Q2: How many drinks containi ng alcohol do you have on a typical day when you are drinking? Patient does not drink Q3: How often do you have si x or more drinks on one occasion? Never 09/13/2024 Personal Safety Answer Date Recorded Have you ever been in or are you currently in a harmful physical or emotional relationship or is someone making you feel afraid or unsafe? 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 Gender Identity Not on file Sexual Orientation Not on file Occupation Industry Job Start Date Job End Date Retired Not on file Not on file Not on file documented as of this encounter Plan of Treatment Not on file documented as of this encounter Visit Diagnoses Not on filedocumented in this encounter Care Teams Flatwork Finisher Hand Relationship Specialty Start Date End Date Nikky Reyes MD [address] [facility] [address] [place] [address] PCP - General Family Practice 12/15/23 Venkat Vivar DO [address] [place] [address] MEDICAL ONCOLOGY, [facility] [address] [place], [place] [address] Medical Oncologist/Hematologis t Hematology and Oncology 12/15/23 Kwaku Martin MD [address] [place] [address] MEDICAL ONCOLOGY, [facility] [address] [place] [address] Consulting Physician Urology 12/15/23 Richard Hargrove MD [address] [place] [address] Radiation Oncologist Radiation Oncology 01/08/24 Adelso Qu[place] [address] [address] [facility] [address] [place] [address] Surgeon Urology 01/22/24 Brenton Cabrera MD [address] [place] [address] [address] [place] [address] Referring Physician Neurosurgery 11/26/24 documented as of this encounter
--- OUTSIDE RECORDS SUMMARY | 2025-01-17 22:30 | XMS_ITS | Encounter Summary ---
Author Organization [facility] Address [address] [place] [address] Care Team Providers Care Blending Tank Helper Name Role Phone Rosanne Santana MD Primary Care Provider [phone] Encounter Details Date Type Department Care Team (Latest Contact Info) Description 05/21/2006 Outpatient Historical [facility] Rosanne Sanchez MD [address] [facility] [place] [address] Coronary Atherosclerosis of [place] Coronary Artery (Primary Dx) Social History Tobacco Use Types Packs/Day Years Used Date Smoking Tobacco: Never Assessed Sex and Gender Information Value Date Recorded Sex Assigned at Not on file Legal 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 Male 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 Gender Identity Not on file Sexual Orientation Not on file documented as of this encounter Plan of Treatment Not on file documented as of this encounter Procedures Procedure Name Priority Date/Time Associated Diagnosis Comments CBC WITH DIFFERENTIAL Routine 05/21/2006 7:05 AM CONTRACT DESIGNER CBC WITH DIFFERENTIAL Routine 05/21/2006 7:05 AM CONTRACT DESIGNER PTT Routine 05/21/2006 7:05 AM CONTRACT DESIGNER PROTIME-INR Routine 05/21/2006 7:05 AM CONTRACT DESIGNER BASIC METABOLIC PANEL Routine 05/21/2006 7:05 AM CONTRACT DESIGNER documented in this encounter Results * CBC WITH DIFFERENTIAL (05/21/2006 7:05 AM CONTRACT DESIGNER) NEUTROPHILS 61 45 - 70 % INTERFAC [...] 0.20 K/uL INTERFACE SYSTEM 05/21/2006 7:05 AM CONTRACT DESIGNER Rosanne Santana MD HEMATOLOGY ORDERABLES Edited Performing Organization Address City/[facility] Co de Phone Number INTERFACE SYSTEM Refer to clinic/hospital department * CBC WITH DIFFERENTIAL (05/21/2006 7:05 AM CONTRACT DESIGNER) WBC 5.9 4.0 - 9.8 K/uL INTERFACE [...] 12.4 fL INTERFACE SYSTEM 05/21/2006 7:05 AM CONTRACT DESIGNER us Rosanne Santana MD HEMATOLOGY ORDERABLES Edited Performing Organization Address City/State/[facility] Co de Phone Number INTERFACE SYSTEM Refer to clinic/hospital department * PTT (05/21/2006 7:05 AM CONTRACT DESIGNER) PTT 28.0 24.4 - 36.4 Seconds INTERFACE SYSTEM Comment: PTT Therapeutic Range: Heparin Level PTT (seconds) <0.10 units/mL <53 0.10 - 0.30 units/mL 53 - 67 0.30 - 0.70 units/mL* 67 - 95* 0.70 - 1.00 units/mL 95 - 116 *corresponds to therapeutic range for unfractionated heparin 05/21/2006 7:05 AM CONTRACT DESIGNER Rosanne Santana MD HEMATOLOGY ORDERABLES Edited Performing Organization Address [facility] Phone Number INTERFACE SYSTEM Refer to clinic/hospital department * PROTIME-INR (05/21/2006 7:05 AM CONTRACT DESIGNER) PROTIME 14.1 12.7 - 15.1 Seconds INTERFACE [...] have not been established. 05/21/2006 7:05 AM CONTRACT DESIGNER Rosanne Santana MD HEMATOLOGY ORDERABLES Edited Performing Organization Address [facility] de Phone Number INTERFACE SYSTEM Refer to clinic/hospital department * (ABNORMAL) BASIC METABOLIC PANEL (05/21/2006 7:05 AM CONTRACT DESIGNER) GLUCOSE 104(H) 65 - 99 mg/dL INTERFACE [...] and non- Americans is available on the [facility] Intranet at: [email or web address] Select: Lab Policies and Procedures Select: Reference Ranges - GFR 05/21/2006 7:05 AM CONTRACT DESIGNER us Rosanne Santana MD CHEMISTRY ORDERABLES Edited INTERFACE SYSTEM Refer to clinic/hospital department documented in this encounter Visit Diagnoses Diagnosis Coronary atherosclerosis of [place] coronary artery- Primary documented in this encounter Care Teams Blending Tank Helper Relationship Specialty Start Date End Date Rosanne Santana MD [address] [facility] [place] [address] PCP - General 10/24/03 documented as of this encounter
--- OUTSIDE RECORDS SUMMARY | 2025-01-17 22:30 | XMS_ITS | Clinical Summary ---
Author Organization [facility] Address [address] [facility] 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 Gender Identity Not on file Sexual Orientation Not on file Plan of Treatment Health Maintenance Due Date Last Done Comments DTAP/TDAP/TD VACCINES (1 - Tdap) 02/01/1967 PNEUMOCOCCAL VACCINE 50+ YEARS (1 of 1 - PCV) 02/01/19 98 ZOSTER VACCINE (1 of 2) 02/01/1998 RSV VACCINE (60+ or ) (1 - 1-dose 75+ series) 02/01/2023 INFLUENZA VACCINE (#1) 2024 Insurance [facility] BLUE ACCESS/TRUE BLUE PPO Care Teams Retail Marketing Manager Relationship Specialty Start Date End Date Rosanne Santana MD [address] [facility] [address] [place] [address] PCP - General 10/24/03
--- OUTSIDE RECORDS SUMMARY | 2025-01-17 22:30 | XMS_ITS | Encounter Summary ---
Author Organization [facility] Address [address] [place] [address] Care Team Providers Care Facilities Administrator Name Role Phone Nikky Reyes MD Primary Care Provider Encounter Details Date Type Department Care Team (Late st Contact Info) Description 04/01/2024 Prep for Procedure [facility] [place], [place] [id number] Adelso Quiñones MD [address] [facility] [address] [place], [place] [id number] Social History Tobacco Use Types Packs/Day Years Used Date Smoking Tobacco: Former Cigarettes 2 15 S tarted: 1967 Smokeless Tobacco: Never Alcohol Use Standard Drinks/Week Comments Not Currently 0 (1 standard drink = 0.6 oz pur e alcohol) sober 45 years Sex and Gender Information Value Date Recorded Sex Assigned at Not on file Legal Sex Male 1:18 PM ELECTRICAL ASSEMBLY SUPERVISOR Gender Identity Not on file Sexual Orientation Not on file documented as of this encounter Plan of Treatment Not on file documented as of this encounter Results * (ABNORMAL) URINE BACTERIA CULTURE (04/02/2024 2:46 PM ELECTRICAL ASSEMBLY SUPERVISOR) SPEC DESCRIPTION URINE CLEAN CATCH 04/02/2024 2:47 PM ELECTRICAL ASSEMBLY SUPERVISOR [facility] SPECIAL REQUESTS NO SPECIAL REQUEST 04/02/2024 2:47 PM ELECTRICAL ASSEMBLY SUPERVISOR [facility] CULTURE RESULT >100,000 COL/ML STAPH. SPECIES NOT STAPH. AUREUS (A) 04/04/2024 8:02 AM ELECTRICAL ASSEMBLY SUPERVISOR [facility] URINE SPECIMEN OBTAINED BY CLEAN CATCH PROCEDURE / Unknown 04/02/2024 2:46 PM ELECTRICAL ASSEMBLY SUPERVISOR 04/02/2024 3:46 PM ELECTRICAL ASSEMBLY SUPERVISOR Narrative Organism Antibiotic Method Susceptibility Staph. species not staph. aureus NITROFURANTOIN NIRMALA (V ITEK) <=16: Sensitive Staph. species not staph. aureus LEVOFLOXACIN NIRMALA (VIT EK) 4: Resistant Staph. species not staph. aureus OXACILLIN NIRMALA (VIT EK) >=4: Resistant Staph. species not staph. aureus TRIMETH-SULFAMETH. CT C (VITEK) 20: Sensitive Staph. species not staph. aureus TETRACYCLINE NIRMALA (VIT EK) >=16: Resistant Staph. species not staph. aureus VANCOMYCIN NIRMALA (VIT EK) 2: Sensitive Adelso Quiñones MD MICROBIOLOGY - GENERAL ORDERABL ES Final Result [facility] [address] [place] [address], documented in this encounter Visit Diagnoses Diagnosis Bladder cancer (CMS/HCC HHS/HCC)- Primary Malignant neoplasm of bladder, part unspecified Hydronephrosis with ureteral stricture documented in this encounter Additional Health Concerns Infection Onset Date Last Indicated Resolved Time COVID-19 Rule Out 04/10/2024 04/10/2024 04/10/2024 1:35 PM ELECTRICAL ASSEMBLY SUPERVISOR Influenza - Seasonal 04/10/2024 04/10/2024 025 12:32 AM ELECTRICAL ASSEMBLY SUPERVISOR documented as of this encounter Care Teams Facilities Administrator Relationship Specialty Start Date End Date Nikky Reyes MD [address] [place] [address] PCP - General FAMILY PRACTICE 05/04/21 documented as of this encounter
--- OUTSIDE RECORDS SUMMARY | 2025-01-17 22:30 | XMS_ITS | Encounter Summary ---
Author Organization [employer] Address [address] [place] [address] Care Team Providers Care Food Server Name Role Phone Rosanne Santana MD Primary Care Provider [phone] Encounter Details Date Type Department Care Team (Late st Contact Info) Description 05/16/[address] [facility] Serv[facility] (Adt Cardiology-[facility]) [address] [place] [address] Spencer Nicholas MD NO ADDRESS ON FILE Social History Tobacco Use Types Packs/Day Years Used Date Smoking Tobacco: Never Assessed Sex and Gender Information Value Date Recorded Sex Assigned at Not on file Legal Sex Male 4:23 AM COOK COLD MEAT Gender Identity Not on file Sexual Orientation Not on file documented as of this encounter Plan of Treatment Not on file documented as of this encounter Visit Diagnoses Not on filedocumented in this encounter Care Teams Food Server Relationship Specialty Start Date End Date Rosanne Santana MD [address] [place] [address] PCP - General 10/24/03 documented as of this encounter
--- OUTSIDE RECORDS SUMMARY | 2025-01-17 22:30 | XMS_ITS | Clinical Summary ---
Author Organization [facility] [address] Address [address] [place] [address] Care Team Providers Care Ice Cream Man Name Role Phone Nikky Reyes MD Primary Care Provider Venkat Vivar DO Unavailable Kwaku Martin MD Unavailable [phone] Richard Hargrove MD Unavailable [phone] Adelso Quiñones MD Unavailable [phone] Brenton Cabrera MD Unavailable [phone] Allergies No known active allergies Medications tamsulosin (FLOMAX) 0.4 mg extended release capsule Take 1 capsule (0.4 mg total) by mouth daily 12/05/2023 Active sacubitriL-valsa rtan (ENTRESTO) 49-51 mg tablet Take by mouth 11/19/2023 Active rosuvastatin (CRESTOR) 20 mg tablet Take 1 tablet (20 mg total) by mouth daily Active furosemide (LASIX) 40 mg tablet Take [...] TIMES A DAY 90 tablet 04/05/2024 Active dapagliflozin propanediol (Farxiga) 10 mg tablet 1 tablet (10 mg total) 09/23/2024 Active empagliflozin (JARDIANCE) 10 mg tablet Take by mouth 09/28/2024 Active sildenafiL (VIAGRA) 100 mg tablet Take by mouth daily 05/14/2024 Active spironolactone (ALDACTONE) 25 mg tablet 12/02/2024 Active levothyroxine (SYNTHROID) 75 mcg tablet Take 1 tablet (75 mcg total) by mouth daily 11/11/2024 Active Active Problems Problem Noted Date Diagnosed [...] requirements to drive in the states of [place] and [place] based on his visual field deficit. We [...] Encounters Date Type Department Care Team Description 01/10/2025 Orders Only [facility] [phone] Unknown, Notinfile 01/08/2025 Orders Only [facility] [phone] Unknown, Notinfile 01/06/2025 Orders Only [facility] [address] [place] [address] [address] [place] [phone] Brenton Cabrera MD 01/05/2025 [facility]phone [facility] [address] [place] [address] [address] [place] [phone] Dora Wheat CMA 12/27/2024 Orders Only [facility] [address] [place] [phone] Leeann Fleming MD 12/15/2024 Results [facility] [address] [place] [address] [phone] Laura Arias, ODILON CT Chest Abdomen Pelvis W Contrast 12/13/2024 9:15 AM CDT Office Visit [facility] [address] [place] [address] [phone] Venkat Vivar DO Malignant neoplasm of urinary bladder, unspecified site (HCC) (Primary Dx) 12/13/2024 8:45 AM CDT Lab [facility] at [address] [address] Malignant neoplasm of urinary bladder, unspecified site (HCC) 12/06/2024 12:30 PM CDT - 12/06/2024 11:59 PM CDT Hospital Encounter [facility] [address] [place] [address] Malignant neoplasm of urinary bladder, unspecified site (HCC) Discharge Disposition: Discharge to home or self care 11/26/2024 10:30 AM CDT Imaging [facility]am [facility] [address] [place] [address] [phone] 11/26/2024 9:50 AM CDT Imaging Exam [facility] [address] [place] [address] [phone] Unspecified disorder of visual pathways 11/26/2024 9:00 AM CDT Imaging Exam [facility] [address] [place] [phone] Unspecified disorder of visual pathways 11/26/2024 8:00 AM CDT Office Visit [facility] [address] [place] [address] [phone] Moises Cast MD Encounter for observation for other suspected diseases and conditions ruled out (Primary Dx); Unspecified disorder of visual pathways; Homonymous hemianopia, left 11/26/2024 Orders Only [facility] [address] [place] [phone] Moises Cast MD Unspecified disorder of visual pathways (Primary Dx); Encounter for observation for other suspected diseases and conditions ruled out 11/18/2024 Telephone [facility] [address] [place] [address] [phone] Daysi Álvarez MD 11/16/2024 Telephone [facility] [address] [place] [address] [phone] Daysi Álvarez MD from Last 3 Months Surgical History Surgery Date Site/Laterality Comments CHOLECYSTECTOMY CARDIAC SURGERY CYSTOSCOPY W/ URETERAL STENT PLACEMENT Medical History Medical History Date Comments Cardiomyopathy Coronary artery disease Hyperlipidemia Hypothyroidism BPH (benign [...] on file Legal Sex 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 Gender Identity Not on file Sexual Orientation Not on file Occupation Industry Job Start Date Job End Date Retired Not on file Not on file Not on file Obstetrics History Last Filed Vital Signs Vital Sign Reading Time Taken Comments Blood Pressure 118/72 12/13/2024 9:23 AM CDT Pulse 61 12/13/2024 9:23 AM CDT Temperature 36.2 C (97.1 F) 12/13/2024 9:23 AM CDT Respiratory Rate 18 12/13/2024 9:23 AM CDT Oxygen Saturation 96% 12/13/2024 9:23 AM CDT Inhaled Oxygen Concentration - - Weight 91 kg (200 lb 9.9 oz) 12/13/2024 9:23 AM CDT with shoes Height 185.4 cm (6' 1) 02/25/2024 12:13 AM 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 Body Mass Index 26.47 02/25/2024 12:13 AM 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 Plan of Treatment Health Maintenance Due Date Last Done Comments Depression Screening 1950 Hepatitis C Screening 1950 Hepatitis B Screening 02/01/1966 Well Visit 65+ 02/01/2013 Zoster Vaccine (2 of 2) 11/23/2024 09/28/2024 Influenza Vaccine (#1) 2024 0, 03/09/2019, 02/03/2018, Additional history exists Fall Risk Assessment 01/21/2025 01/22/2024 DTaP/Tdap/Td Vaccine (3 - Td or Tdap) 09/28/2034 09/28/2024, 11/23/2015 Pneumococcal vaccine 65+ Completed 02/13/2023 Procedures Procedure Name Priority Date/Time Associated Diagnosis Comments EGFR Routine 01/10/2025 6:55 AM CDT COMPREHENSIVE METABOLIC PANEL Routine 01/10/2025 6:55 AM CDT DIFFERENTIAL AUTO Routine 01/10/2025 6:5 5 AM CDT CBC WITH AUTO DIFFERENTIAL Routine 01/10/2025 6:55 AM CDT VITAMIN D 25 HYDROXY Routine 01/08/2025 5:30 AM CDT PREALBUMIN Routine 01/08/2025 5:30 AM CDT VITAMIN B12 Routine 01/08/2025 5:30 AM CDT EGFR Routine 01/08/2025 5:30 AM CDT BASIC METABOLIC PANEL Routine 01/08/2025 5:30 AM CDT MAGNESIUM Routine 01/08/2025 5:30 AM CDT PHOSPHORUS Routine 01/08/2025 5:30 AM CDT DIFFERENTIAL AUTO Routine 01/08/2025 5:3 0 AM CDT CBC WITH AUTO DIFFERENTIAL Routine 01/08/2025 5:30 AM CDT PATHOLOGY REPORT Routine 01/06/2025 9:[address] HEAD WO CONTRAST Schedule Routine, Read Routine (OP Routine) 01/06/2025 9:34 AM CDT MRI BRAIN W CONTRAST Schedule Routine, Read Routine (OP Routine) 12/24/2024 2:47 PM CDT EGFR Routine 12/13/2024 8:43 AM CDT Malignant neoplasm of urinary bladder, unspecified site (HCC) DIFFERENTIAL AUTO Routine 12/13/2024 8:4 3 AM CDT Malignant neoplasm of urinary bladder, unspecified site (HCC) CBC WITH AUTO DIFFERENTIAL Routine 12/13/2024 8:43 AM CDT Malignant neoplasm of urinary bladder, unspecified site (HCC) COMPREHENSIVE METABOLIC PANEL Routine 12/13/2024 8:43 AM CDT Malignant neoplasm of urinary bladder, unspecified site (HCC) CT CHEST ABDOMEN PELVIS W CONTRAST Schedule Routine, Read Routine (OP Routine) 12/06/2024 12:50 PM CDT Malignant neoplasm of urinary bladder, unspecified site (HCC) POCT CREATININE FOR CONTRAST EVALUATION Routine 12/06/2024 12:47 PM CDT 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 GOLDMANN VISUAL FIELD - OU - BOTH EYES Routine 11/26/2024 10:32 AM CDT Unspecified disorder of visual pathways Encounter for observation for other suspected diseases and conditions ruled out CHAN VISUAL FIELD - OU - BOTH EYES Routine 11/26/2024 9:48 AM CDT Unspecified disorder of visual pathways OCT, RETINA - OU - BOTH EYES Routine 11/26/2024 9:48 AM CDT Encounter for observation for other suspected diseases and conditions ruled out OCT, OPTIC NERVE - OU - BOTH EYES Routine 11/26/2024 9:48 AM CDT Unspecified disorder of visual pathways from Last 3 Months Results * eGFR (01/10/2025 6:55 AM CDT) eGFR >90 >=60 mL/min/1. 73 m2 JAIME PINEDA Comment: Interpretive Data Reference Interval Normal >/= [...] was last reviewed 2021. Testing performed by: [address] [address] Blood 01/10/2025 6:55 AM CDT 01/10/2025 9:00 AM CDT us Notinfile Unknown LAB BLOOD ORDERABLES Final Res ult JAIME PINEDA [address] [facility] [place] [address] * (ABNORMAL) Differential, auto (01/10/2025 6:55 AM CDT) Neutrophil abs 4.98 1.50 - 6.50 K/cumm JAIME PINEDA Comment:Testing performed by : [address] [address] Imm gran abs 0.16(H) 0.00 - 0.10 K/cumm JAIME PINEDA Comment:Testing performed by : [address] [address] Lymphocyte abs 0.92 0.80 - 3.30 K/cumm JAIME PINEDA Comment:Testing performed by : [address] [address] Monocyte abs 0.83(H) 0.20 - 0.80 K/cumm [facility] Comment:Testing performed by : [address], [place]., [address] Eosinophil abs 0.08 0.00 - 0.50 K/cumm [facility] Comment:Testing performed by : [address], [place]., [address] Basophil abs 0.03 0.00 - 0.10 K/cumm [facility] Comment:Testing performed by : [address] [address] Neutrophil pct 71.2 % [facility] Comment: Interpretive Data Percent cell count reference ranges are not reported, since discordance with absolute values may lead to misinterpretation of CBC data. Current Interpretive Data was last revised on 2017. Testing performed by: [address] [address] Imm gran pct 2.3 % [facility] Comment: Interpretive Data Percent cell count reference ranges are not reported, since discordance with absolute values may lead to misinterpretation of CBC data. Current Interpretive Data was last revised on 2017. Testing performed by: [address] [address] Lymphocyte pct 13.1 % [facility] Comment: Interpretive Data Percent cell count reference ranges are not reported, since discordance with absolute values may lead to misinterpretation of CBC data. Current Interpretive Data was last revised on 2017. Testing performed by: [address] [address] Monocyte pct 11.9 % [facility] Comment: Interpretive Data Percent cell count reference ranges are not reported, since discordance with absolute values may lead to misinterpretation of CBC data. Current Interpretive Data was last revised on 2017. Testing performed by: [address] [address] Eosinophil pct 1.1 % [facility] Comment: Interpretive Data Percent cell count reference ranges are not reported, since discordance with absolute values may lead to misinterpretation of CBC data. Current Interpretive Data was last revised on 2017. Testing performed by: [address] [address] Basophil pct 0.4 % JAIEM PINEDA Comment: Interpretive Data Percent cell count reference ranges are not reported, since discordance with absolute values may lead to misinterpretation of CBC data. Current Interpretive Data was last revised on 2017. Testing performed by: [address] [address] Blood 01/10/2025 6:55 AM CDT 01/10/2025 9:00 AM CDT us Notinfile Unknown LAB BLOOD ORDERABLES Final Res ult JAIME PINEDA [address] [facility] [place] [address] * (ABNORMAL) CBC with auto differential (01/10/2025 6:55 AM CDT) WBC 7.00 3.80 - 9.90 K/cumm JAIME PINEDA Comment:Testing performed by : [address] [address] Hgb 11.7(L) 13.0 - 17.5 g/dL JAIME PINEDA Comment:Testing performed by : [address] [address] Hct 35.0(L) 38.9 - 50.3 % JAIME PINEDA Comment:Testing performed by : [address] [address] Plt 208 150 - 400 K/cumm JAIME PINEDA Comment:Testing performed by : [address] [address] MPV 9.8 9.1 - 12.3 fL JAIME PINEDA Comment:Testing performed by : [address] [address] RBC 3.65(L) 4.30 - 5.80 M/cumm JAIME PINEDA Comment:Testing performed by : [address] [address] MCV 95.9 81.3 - 96.4 fL JAIME PINEDA Comment:Testing performed by : [address] [address] MCH 32.1 27.1 - 33.3 pg JAIME PINEDA Comment:Testing performed by : [address] [address] MCHC 33.4 32.3 - 35.7 g/dL JAIME PINEDA Comment:Testing performed by : [address] [address] RDW CV 16.4(H) 11.1 - 14.9 % JAIME PINEDA Comment:Testing performed by : [address] [address] RDW SD 57.2(H) 35.7 - 48.1 fL JAIME PINEDA Comment:Testing performed by : [address] [address] NRBC abs 0.00 0.00 - 0.01 K/cumm JAIME PINEDA Comment:Testing performed by : [address] [address] Blood 01/10/2025 6:55 AM CDT 01/10/2025 9:00 AM CDT us Notinfile Unknown LAB BLOOD ORDERABLES Final Res ult JAIME PINEDA [facility] [place] [address] * (ABNORMAL) Comprehensive metabolic panel (01/10/2025 6:55 AM CDT) Sodium 136 135 - 145 mmol/L JAIME PINEDA Comment:Testing performed by : [address] [address] Potassium, pl 4.5 3.3 - 4.9 mmol/L JAIME PINEDA Comment:Testing performed by : [address] [address] Chloride 103 97 - 110 mmol/L JAIME PINEDA Comment:Testing performed by : [address] [address] CO2 22 22 - 32 mmol/L JAIME PINEDA Comment:Testing performed by : [address] [address] Anion gap 11 2 - 15 mmol/L JAIME Comment:Testing performed by : [address] [address] BUN 20 6 - 25 mg/dL JAIME Comment:Testing performed by : [address] [address] Creatinine 0.70(L) 0.80 - 1.30 mg/dL JAIME Comment:Testing performed by : [address] [address] Glucose 95 70 - 199 mg/dL [facility] Comment: Interpretive Data Fasting glucose >/= 126 [...] last revised 2022. Testing performed by: [address] [address] Calcium 8.5 8.5 - 10.3 mg/dL [facility] Comment:Testing performed by : [address] [address] Bilirubin, total 0.6 0.1 - 1.2 mg/dL JAIME Comment:Testing performed by : [address] [address] Protein, pl 5.6(L) 6.5 - 8.5 g/dL [facility] Comment:Testing performed by : [address] [address] Albumin 3.2(L) 3.5 - 5.0 g/dL [facility] Comment:Testing performed by : [address] [address] Alk phos 80 40 - 130 Units/L JAIME Comment:Testing performed by : [address] [address] ALT 86(H) 7 - 55 Units/L JAIME PINEDA Comment:Testing performed by : [address] [address] AST 40 10 - 50 Units/L JAIME PINEDA Comment:Testing performed by : [facility], [address] [place] [address]., [address] Blood 01/10/2025 6:55 AM CDT 01/10/2025 9:00 AM CDT us Notinfile Unknown LAB BLOOD ORDERABLES Final Res ult JAIME PINEDA [address] [facility] [place], [place] [id number] * eGFR (01/08/2025 5:30 AM CDT) eGFR >90 >=60 mL/min/1. 73 m2 JAIME PINEDA Comment: Interpretive Data Reference Interval Normal >/= [...] was last reviewed 2021. Testing performed by: [address] [address] Blood 01/08/2025 5:30 AM CDT 01/08/2025 8:01 AM CDT us Notinfile Unknown LAB BLOOD ORDERABLES Final Res ult JAIME [address] [facility] [place] [address] * (ABNORMAL) Differential, auto (01/08/2025 5:30 AM CDT) Neutrophil abs 10.35(H) 1.50 - 6.50 K/cumm JAIME Comment:Testing performed by : [address] [address] Imm gran abs 0.35(H) 0.00 - 0.10 K/cumm JAIME Comment:Testing performed by : [address] [address] Lymphocyte abs 0.50(L) 0.80 - 3.30 K/cumm JAIME Comment:Testing performed by : [address] [address] Monocyte abs 0.41 0.20 - 0.80 K/cumm JAIME Comment:Testing performed by : [address] [address] Eosinophil abs 0.09 0.00 - 0.50 K/cumm JAIME Comment:Testing performed by : [address] [address] Basophil abs 0.10 0.00 - 0.10 K/cumm JAIME Comment:Testing performed by : [address] [address] Neutrophil pct 87.7 % JAIME Comment: Interpretive Data Percent cell count reference ranges are not reported, since discordance with absolute values may lead to misinterpretation of CBC data. Current Interpretive Data was last revised on 2017. Testing performed by: [address] [address] Imm gran pct 3.0 % JAIME Comment: Interpretive Data Percent cell count reference ranges are not reported, since discordance with absolute values may lead to misinterpretation of CBC data. Current Interpretive Data was last revised on 2017. Testing performed by: [address] [address] Lymphocyte pct 4.2 % JAIME Comment: Interpretive Data Percent cell count reference ranges are not reported, since discordance with absolute values may lead to misinterpretation of CBC data. Current Interpretive Data was last revised on 2017. Testing performed by: [address] [address] Monocyte pct 3.5 % JAIME Comment: Interpretive Data Percent cell count reference ranges are not reported, since discordance with absolute values may lead to misinterpretation of CBC data. Current Interpretive Data was last revised on 2017. Testing performed by: [address] [address] Eosinophil pct 0.8 % JAIME Comment: Interpretive Data Percent cell count reference ranges are not reported, since discordance with absolute values may lead to misinterpretation of CBC data. Current Interpretive Data was last revised on 2017. Testing performed by: [address] [address] Basophil pct 0.8 % JAIME Comment: Interpretive Data Percent cell count reference ranges are not reported, since discordance with absolute values may lead to misinterpretation of CBC data. Current Interpretive Data was last revised on 2017. Testing performed by: [address] [address] Blood 01/08/2025 5:30 AM CDT 01/08/2025 8:01 AM CDT us Notinfile Unknown LAB BLOOD ORDERABLES Final Res ult JAIME [address] [facility] [place] [address] * (ABNORMAL) CBC with auto differential (01/08/2025 5:30 AM CDT) WBC 11.80(H) 3.80 - 9.90 K/cumm JAIME PINEDA Comment:Testing performed by : [address] [address] Hgb 11.9(L) 13.0 - 17.5 g/dL JAIME PINEDA Comment:Testing performed by : [address] [address] Hct 35.1(L) 38.9 - 50.3 % JAIME Comment:Testing performed by : [address] [address] Plt 209 150 - 400 K/cumm JAIME Comment:Testing performed by : [address] [address] MPV 9.6 9.1 - 12.3 fL JAIME Comment:Testing performed by : [address], [address] RBC 3.72(L) 4.30 - 5.80 M/cumm JAIME Comment:Testing performed by : [address] [address] MCV 94.4 81.3 - 96.4 fL JAIME Comment:Testing performed by : [address] [address] MCH 32.0 27.1 - 33.3 pg JAIME Comment:Testing performed by : [address] [address] MCHC 33.9 32.3 - 35.7 g/dL JAIME Comment:Testing performed by : [address] [address] RDW CV 15.9(H) 11.1 - 14.9 % JAIME Comment:Testing performed by : [address], [address] RDW SD 53.8(H) 35.7 - 48.1 fL JAIME Comment:Testing performed by : [address] [address] NRBC abs 0.00 0.00 - 0.01 K/cumm JAIME Comment:Testing performed by : [address], [address] Blood 01/08/2025 5:30 AM CDT 01/08/2025 8:01 AM CDT us Notinfile Unknown LAB BLOOD ORDERABLES Final Res ult Performing Organization Address City/[facility]/ZIP Co de Phone Number [address] [place] [address] * (ABNORMAL) Vitamin D 25 hydroxy (01/08/2025 5:30 AM CDT) Vitamin D 25-OH 25.0(L) 30.0 - 80.0 ng/mL [facility] Blood 01/08/2025 5:30 AM CDT 01/08/2025 10:08 AM CDT us Notinfile Unknown LAB BLOOD ORDERABLES Final Res ult Performing Organization Address [facility] Co de Phone Number [address] [place] [address] * Prealbumin (01/08/2025 5:30 AM CDT) Pathologist [facility] Prealbumin 22.5 20.0 - 40.0 mg/dL [facility] Blood 01/08/2025 5:30 AM CDT 01/08/2025 10:08 AM CDT us Notinfile Unknown LAB BLOOD ORDERABLES Final Res ult Performing Organization Address [facility] Co de Phone Number [address] [place] [address] * Phosphorus (01/08/2025 5:30 AM CDT) Phosphorus, pl 3.8 2.3 - 4.5 mg/dL [facility] Comment:Testing performed by : [facility], [address] [place] [address]., [address] Blood 01/08/2025 5:30 AM CDT 01/08/2025 8:01 AM CDT us Notinfile Unknown LAB BLOOD ORDERABLES Final Res ult Performing Organization Address City/[facility]/ZIP Co de Phone Number [address] [address] * Magnesium (01/08/2025 5:30 AM CDT) [facility] Magnesium 2.3 1.4 - 2.5 mg/dL JAIME Comment:Testing performed by : [address] [address] Blood 01/08/2025 5:3 0 AM CDT 01/08/2025 8:01 AM CDT us Notinfile Unknown LAB BLOOD ORDERABLES Final Res ult [address] [address] * Vitamin B12 (01/08/2025 5:30 AM CDT) [facility] Vitamin B12 676 230 - 1,250 pg/mL JAIME Comment:Testing performed by : [address] [address] Blood 01/08/2025 5:30 AM CDT 01/08/2025 8:01 AM CDT us Notinfile Unknown LAB BLOOD ORDERABLES Final Res ult Performing Organization Address City/[facility]/ZIP Co de Phone Number [address] [address] * (ABNORMAL) Basic metabolic panel (01/08/2025 5:30 AM CDT) [facility] Sodium 135 135 - 145 mmol/L JAIME Comment:Testing performed by : [address] [address] Potassium, pl 5.0(H) 3.3 - 4.9 mmol/L JAIME Comment:Testing performed by : [address] [address] Chloride 103 97 - 110 mmol/L JAIME Comment:Testing performed by : [address] [address] CO2 24 22 - 32 mmol/L JAIME Comment:Testing performed by : [address] [address] Anion gap 8 2 - 15 mmol/L JAIME Comment:Testing performed by : [address] [address] BUN 16 6 - 25 mg/dL JAIME Comment:Testing performed by : [address] [address] Creatinine 0.64(L) 0.80 - 1.30 mg/dL JAIME Comment:Testing performed by : [address] [address] Glucose 170 70 - 199 mg/dL JAIME Comment: Interpretive [...] last revised 2022. Testing performed by: [address] [address] Calcium 9.0 8.5 - 10.3 mg/dL JAIME Comment:Testing performed by : [address] [address] Blood 01/08/2025 5:30 AM CDT 01/08/2025 8:01 AM CDT us Notinfile Unknown LAB BLOOD ORDERABLES Final Res ult JAIME [address] [facility] [place], [place] [id number] * Pathology report (01/06/2025 9:37 AM CDT) us Brenton Cabrera MD LAB BLOOD ORDERABLES Fi nal Result * CT Head WO Contrast (01/06/2025 9:34 AM CDT) Anatomical Region Laterality Modality Head and Neck N/A Computed Tomogra phy Brenton Cabrera MD IMG CT PROCEDURES Final Result * MRI Brain W Contrast (12/24/2024 2:47 PM CDT) Anatomical Region Laterality Modality Head and Neck N/A Magnetic Resonan ce Historical Provider IMG MRI PROCEDURES Final Result * eGFR (12/13/2024 8:43 AM CDT) eGFR 78 >=60 mL/min/1. 73 m2 Comment: [...] was last reviewed 2021. Testing performed by: [facility], [address] [place] [address]., [address] Blood 12/13/2024 8:43 AM CDT 12/13/2024 8:45 AM CDT Venkat Vivar DO LAB BLOOD ORDERABLES Final R esult JAIME [address] [facility] [place] [address] * (ABNORMAL) Differential, auto (12/13/2024 8:43 AM CDT) Neutrophil abs 3.15 1.50 - 6.50 K/cumm Comment:Testing performed by : [address] [address] Imm gran abs 0.02 0.00 - 0.10 K/cumm [facility] Comment:Testing performed by : [address] [address] Lymphocyte abs 0.78(L) 0.80 - 3.30 K/cumm [facility] Comment:Testing performed by : [address] [address] Monocyte abs 0.58 0.20 - 0.80 K/cumm [facility] Comment:Testing performed by : [address] [address] [address] Eosinophil abs 0.13 0.00 - 0.50 K/cumm [facility] Comment:Testing performed by : [address] [address] Basophil abs 0.02 0.00 - 0.10 K/cumm [facility] Comment:Testing performed by : [address] [address] Neutrophil pct 67.3 % [facility] Comment: Interpretive Data Percent cell count reference ranges are not reported, since discordance with absolute values may lead to misinterpretation of CBC data. Current Interpretive Data was last revised on 2017. Testing performed by: [address] [address] Imm gran pct 0.4 % [facility] Comment: Interpretive Data Percent cell count reference ranges are not reported, since discordance with absolute values may lead to misinterpretation of CBC data. Current Interpretive Data was last revised on 2017. Testing performed by: [address] [address] Lymphocyte pct 16.7 % [facility] Comment: Interpretive Data Percent cell count reference ranges are not reported, since discordance with absolute values may lead to misinterpretation of CBC data. Current Interpretive Data was last revised on 2017. Testing performed by: [address] [address] Monocyte pct 12.4 % [facility] Comment: Interpretive Data Percent cell count reference ranges are not reported, since discordance with absolute values may lead to misinterpretation of CBC data. Current Interpretive Data was last revised on 2017. Testing performed by: [address] [address] Eosinophil pct 2.8 % [facility] Comment: Interpretive Data Percent cell count reference ranges are not reported, since discordance with absolute values may lead to misinterpretation of CBC data. Current Interpretive Data was last revised on 2017. Testing performed by: [address] [address] Basophil pct 0.4 % [facility] Comment: Interpretive Data Percent cell count reference ranges are not reported, since discordance with absolute values may lead to misinterpretation of CBC data. Current Interpretive Data was last revised on 2017. Testing performed by: [address] [address] Blood 12/13/2024 8:43 AM CDT 12/13/2024 8:45 AM CDT Venkat Vivar DO LAB BLOOD ORDERABLES Final R esult [facility] [address] [facility] Department [place] [address] * (ABNORMAL) CBC with auto differential (12/13/2024 8:43 AM CDT) WBC 4.68 3.80 - 9.90 K/cumm Comment:Testing performed by : [address] [address] Hgb 12.9(L) 13.0 - 17.5 g/dL [facility] Comment:Testing performed by : [address] [address] Hct 37.9(L) 38.9 - 50.3 % [facility] Comment:Testing performed by : [address] [place]., [address] Plt 178 150 - 400 K/cumm [facility] Comment:Testing performed by : [address] [address] MPV 9.6 9.1 - 12.3 fL [facility] Comment:Testing performed by : [address] [address] RBC 4.04(L) 4.30 - 5.80 M/cumm [facility] Comment:Testing performed by : [address] [address] MCV 93.8 81.3 - 96.4 fL [facility] Comment:Testing performed by : [address] [address] MCH 31.9 27.1 - 33.3 pg [facility] Comment:Testing performed by : [address] [address] MCHC 34.0 32.3 - 35.7 g/dL [facility] Comment:Testing performed by : [address] [address] RDW CV 15.0(H) 11.1 - 14.9 % [facility] Comment:Testing performed by : [address] [address] RDW SD 51.6(H) 35.7 - 48.1 fL [facility] Comment:Testing performed by : [address] [address] NRBC abs 0.00 0.00 - 0.01 K/cumm [facility] Comment:Testing performed by : [address] [address] ANC Prelim 3.15 1.50 - 6.50 K/cumm [facility] Comment: Interpretive Data The rapid ANC is a preliminary automated count and may vary from the final ANC (Neut Abs) reported in the WBC differential that follows. Current interpretive data was last revised 2024. Testing performed by: [address], [address] Blood 12/13/2024 8:43 AM CDT 12/13/2024 8:45 AM CDT us Venkat Vivar DO LAB BLOOD ORDERABLES Final R esult [facility] [address] [facility] Department [place] [address] * Comprehensive metabolic panel (12/13/2024 8:43 AM CDT) Sodium 140 135 - 145 mmol/L Comment:Testing performed by : [address] [address] Potassium, pl 4.3 3.3 - 4.9 mmol/L [facility] Comment:Testing performed by : [address] [address] Chloride 106 97 - 110 mmol/L [facility] Comment:Testing performed by : [address] [address] CO2 25 22 - 32 mmol/L [facility] Comment:Testing performed by : [address] [address] Anion gap 9 2 - 15 mmol/L [facility] Comment:Testing performed by : [address] [address] BUN 10 6 - 25 mg/dL [facility] Comment:Testing performed by : [address] [address] Creatinine 1.00 0.80 - 1.30 mg/dL [facility] Comment:Testing performed by : [address] [address] Glucose 115 70 - 199 mg/dL [facility] [...] was last revised 2022. Testing performed by: [facility], [address] [place] [address]., [address] Calcium 9.0 8.5 - 10.3 mg/dL [facility] Comment:Testing performed by : [address] [address] Bilirubin, total 0.6 0.1 - 1.2 mg/dL [facility] Comment:Testing performed by : [address] [address] Protein, pl 7.1 6.5 - 8.5 g/dL [facility] Comment:Testing performed by : [address] [address] Albumin 4.0 3.5 - 5.0 g/dL [facility] Comment:Testing performed by : [address] [address] Alk phos 75 40 - 130 Units/L [facility] Comment:Testing performed by : [address] [address] ALT 17 7 - 55 Units/L [facility] Comment:Testing performed by : [address] [address] AST 16 10 - 50 Units/L [facility] Comment:Testing performed by : [address] [address] Blood 12/13/2024 8:43 AM CDT 12/13/2024 8:45 AM CDT Venkat Vivar DO LAB BLOOD ORDERABLES Final R esult [facility] [address] [facility] Department [place] [address] * CT Chest Abdomen Pelvis W Contrast (12/06/2024 12:50 PM CDT) Anatomical Region Laterality Modality Body N/A Computed Tomogra phy 12/13/2024 1:00 PM CDT Narrative 12/13/2024 1:52 PM CDT EXAM DESCRIPTION: CT CHEST ABDOMEN PELVIS W CONTRAST REASON FOR STUDY: Bladder cancer, invasive, assess treatment response 3 month bladder cancer f/u. No complaints. Hx of heart stents, kisha, bladder surgery. TECHNIQUE: CT scan of [...] IODINE/ML INTRAVENOUS SYRINGE injected via intravenous COMPARISON: CT dated September 07, 2024 FINDINGS: CHEST LUNGS: No nodules or masses. No pneumonia. A few tiny scattered subcentimeter pulmonary nodules are seen. No new pulmonary nodules are noted. PLEURA: No effusion. No pneumothorax. MEDIASTINUM/RUBEN: No identified masses or abnormal nodes. HEART: Heart size is normal with no pericardial effusion. Advanced coronary artery calcified atherosclerosis. VASCULATURE CHEST: No thoracic aortic aneurysm or dissection. AXILLA: No adenopathy. CHEST WALL: No masses. No subcutaneous air. HARDWARE/LINES/TUBES: None. MUSCULOSKELETAL CHEST: No significant abnormality. ABDOMEN/PELVIS LIVER: The liver is normal in size. Diffuse hypoattenuation compatible with steatosis. Stable segment 5 and 7 cysts. No new concerning hepatic lesion seen. GALLBLADDER: Surgically absent BILE DUCTS: No intrahepatic or extrahepatic ductal dilatation. SPLEEN: Normal size. No focal lesions. PANCREAS: No identified cystic or solid masses. No significant calcifications. No adjacent inflammation or peripancreatic fluid collections. Pancreatic duct not dilated. ADRENALS: Normal. KIDNEYS/URINARY TRACT: No identified significant cystic or solid masses. No visualized stones. No hydronephrosis or hydroureter. Symmetric enhancement. Mild diffuse thickening of the urinary bladder. GI: No dilated bowel loops. No obvious wall thickening. Extensive uncomplicated diverticular disease is seen. PERITONEUM: No ascites or free air. RETROPERITONEUM: No mass or adenopathy. REPRODUCTIVE: No significant abnormality. VASCULATURE ABDOMEN: No abdominal aortic aneurysm. MUSCULOSKELETAL ABDOMEN PELVIS: No acute finding. OTHER: No significant abnormality. IMPRESSION: 1. No evidence of metastatic disease to the chest, abdomen or pelvis. 2. Mild diffuse thickening of the urinary bladder. 3. Hepatic steatosis. 4. Extensive uncomplicated diverticular disease. THIS IS AN ELECTRONICALLY VERIFIED FINAL REPORT 12/13/2024 1:52 PM - Electronically signed by Ian Proctor M.D. JA: ERICA Report ID: [id number] Reading Location: [id number] Procedure Note Ian Proctor MD - 12/13/2024 EXAM DESCRIPTION: CT CHEST ABDOMEN PELVIS W CONTRAST REASON FOR STUDY: Bladder cancer, invasive, assess treatment response 3 month bladder cancer f/u. No complaints. Hx of heart stents, kisha,bladder surgery. TECHNIQUE: CT scan of the chest, abdomen, and pelvis performed with intravenous and without oral contrast using helical scanning techniquewith dynamic intravenous contrast injection. Reconstructed coronal and sagittalMPR images reviewed. All images stored on PACS. Automated exposure control was used as a dose optimization technique for this examination. CONTRAST TYPE/DOSE: 100mL of IOVERSOL 350 MG IODINE/ML INTRAVENOUS SYRINGE injected via intravenous COMPARISON: CT dated September 07, 2024 FINDINGS: CHEST LUNGS: No nodules or masses. No pneumonia. A few tiny scattered subcentimeter pulmonary nodules are seen. No new pulmonary nodules arenoted. PLEURA: No effusion. No pneumothorax. MEDIASTINUM/RUBEN: No identified masses or abnormal nodes. HEART: Heart size is normal with no pericardial effusion. Advanced coronary artery calcified atherosclerosis. VASCULATURE CHEST: No thoracic aortic aneurysm or dissection. AXILLA: No adenopathy. CHEST WALL: No masses. No subcutaneous air. HARDWARE/LINES/TUBES: None. MUSCULOSKELETAL CHEST: No significant abnormality. ABDOMEN/PELVIS LIVER: The liver is normal in size. Diffuse hypoattenuation compatiblewith steatosis. Stable segment 5 and 7 cysts. No new concerning hepaticlesion seen. GALLBLADDER: Surgically absent BILE DUCTS: No intrahepatic or extrahepatic ductal dilatation. SPLEEN: Normal size. No focal lesions. PANCREAS: No identified cystic or solid masses. No significant calcifications. No adjacent inflammation or peripancreatic fluidcollections. Pancreatic duct not dilated. ADRENALS: Normal. KIDNEYS/URINARY TRACT: No identified significant cystic or solid masses.No visualized stones. No hydronephrosis or hydroureter. Symmetricenhancement. Mild diffuse thickening of the urinary bladder. GI: No dilated bowel loops. No obvious wall thickening. Extensive uncomplicated diverticular disease is seen. PERITONEUM: No ascites or free air. RETROPERITONEUM: No mass or adenopathy. REPRODUCTIVE: No significant abnormality. VASCULATURE ABDOMEN: No abdominal aortic aneurysm. MUSCULOSKELETAL ABDOMEN PELVIS: No acute finding. OTHER: No significant abnormality. IMPRESSION: 1. No evidence of metastatic disease to the chest, abdomen or pelvis. 2. Mild diffuse thickening of the urinary bladder. 3. Hepatic steatosis. 4. Extensive uncomplicated diverticular disease. THIS IS AN ELECTRONICALLY VERIFIED FINAL REPORT 12/13/2024 1:52 PM - Electronically signed by Ian Proctor M.D. JA: ERICA Report ID: [id number] Reading Location: [id number] Venkat Vivar DO IMG CT PROCEDURES Final Resu lt * POCT creatinine for contrast evaluation (12/06/2024 12:47 PM CDT) Creatinine POC 1.20 0.80 - 1.30 mg/dL Comment:Testing performed by : [facility], [address] [place] [address]., [address] Blood 12/06/2024 12:4 7 PM CDT 12/06/2024 12:47 PM CDT Venkat Vivar DO POINT OF CARE TEST ORDERABLE S Final Result [facility] [address] [facility] Department [place] [address] * Construction Checker License [place] Visual Field - OU - Both Eyes (11/26/2024 10:32 AM CDT) Anatomical Region Laterality Modality Head Visual Field Narrative 11/26/2024 2:03 PM CDT About 110 contiguous horizontal visual field OU. 55 of temporal field OU. us Moises Cast MD OPHTH VISUAL FIELD F inal Result * Chan Visual Field - OU - Both Eyes (11/26/2024 9:48 AM CDT) Pattern Deviation OS 11.25 dB CONTINUUM Pattern Deviation OD 14.01 dB CONTINUUM Mean Deviation OS -8.27 dB CONTINUUM Mean Deviation OD -11.95 dB CONTINUUM Anatomical Region Laterality Modality Head Other Narrative 11/26/2024 2:03 PM CDT Right Eye Fixation was good. Cooperation was good. Reliability was good. Progression has no prior data. Foveal threshold was normal. Mean Deviation was -11.95 dB. Pattern Deviation was 14.01 dB. Left Eye Fixation was good. Cooperation was good. Reliability was good. Foveal threshold was normal. Mean Deviation was -8.27 dB. Pattern Deviation was 11.25 dB. Notes Left-sided homonymous hemianopia, more dense superiorly Moises Cast MD OPH VISUAL FIELD E dited Result - Final * OCT, Retina - OU - Both Eyes (11/26/2024 9:48 AM CDT) Pathologist [facility] Central Macular Thickness OS 261 mircometers CONTINUUM Central Macular Thickness OD 255 micrometers CONTINUUM Anatomical Region Laterality Modality Head Other Narrative 11/26/2024 2:04 PM CDT Right Eye Quality was good. Scan locations included subfoveal. Macular thickness was 255 micrometers. Left Eye Quality was good. Scan locations included subfoveal. Macular thickness was 261 mircometers. Notes GCL OD: 78 OS: 80 Normal macular and ganglion cell layer (GCL) thickness both eyes (OU). Moises Cast MD OPH TOMOGRAPHY Fin al Result * OCT, Optic Nerve - OU - Both Eyes (11/26/2024 9:48 AM CDT) RNFL OS 91 micrometers CONTINUUM RNFL OD 89 micrometers CONTINUUM Anatomical Region Laterality Modality Head Other Narrative 11/26/2024 2:04 PM CDT Right Eye Reliability was good. Average RNFL thickness 89 micrometers. Left Eye Reliability was good. Average RNFL thickness 91 micrometers. Notes Normal retinal nerve fiber layer thickness OU. Moises Cast MD OPHTH TOMOGRAPHY Fin al Result from Last 3 Months Insurance MEDICARE [employer] SENIOR SUPPLEMENT MEDICARE [facility] MEDICARE SUPPLEMENT MEDICARE [facility] MEDICARE SUPPLEMENT Care Teams Ice Cream Man Relationship Specialty Start Date End Date Nikky Reyes MD [address] [place] [address] [address] [place] [address] PCP - General Family Practice 12/15/23 Venkat Vivar DO [address] [place] [address] MEDICAL ONCOLOGY, [facility] [address] [place] [address] Medical Oncologist/Hematologis t Hematology and Oncology 12/15/23 Kwaku Martin MD [address] [facility] MEDICAL ONCOLOGY, [facility] [address] [place] [address] Consulting Physician Urology 12/15/23 Richard Hargrove MD [address] [facility] [address] [place] [address] Radiation Oncologist Radiation Oncology 01/08/24 Adelso Quiñ[place] [address] [address] Surgeon Urology 01/22/24 Brenton Cabrera MD [address] [place] [address] [address] [place] [address] Referring Physician Neurosurgery 11/26/24
--- OUTSIDE RECORDS SUMMARY | 2025-01-17 22:31 | XMS_ITS | Encounter Summary ---
Author Organization [facility] Address [address] [place] [address] Care Team Providers Care Assistant Grocery Store Manager Name Role Phone Rosanne Santana MD Primary Care Provider [phone] Encounter Details Date Type Department Care Team (Latest Contact Info) Description 12/03/2001 Outpatient Historical [facility] Rosanne Sanchez MD [address] [place] [address] CORON ATHEROSCL TORRES MARTINEZ CORON VESSEL (Primary Dx) Social History Tobacco Use Types Packs/Day Years Used Date Smoking Tobacco: Never Assessed Sex and Gender Information Value Date Recorded Sex Assigned at Not on file 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
--- OUTSIDE RECORDS SUMMARY | 2025-01-17 22:31 | XMS_ITS | Encounter Summary ---
Author Organization [employer] Address [address] [place] [address] Care Team Providers Care Machine Molder Squeeze Name Role Phone Rosanne Santana MD Primary Care Provider [phone] Encounter Details Date Type Department Care Team (Late st Contact Info) Description 12/02/2001 [facility] [address] 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
--- OUTSIDE RECORDS SUMMARY | 2025-01-17 22:31 | XMS_ITS | Encounter Summary ---
Author Organization [employer] Address [address] [facility] [place] [address] Care Team Providers Care Clinical Study Manager Name Role Phone Rosanne Santana MD Primary Care Provider [phone] Encounter Details Date Type Department Care Team (Late st Contact Info) Description 10/23/[address] [facility] [address] 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
--- OUTSIDE RECORDS SUMMARY | 2025-01-17 22:31 | XMS_ITS | Encounter Summary ---
Author Organization [employer] Address [address] [place] [address] Care Team Providers Care Leadite Man Name Role Phone Rosanne Santana MD Primary Care Provider Encounter Details Date Type Department Care Team (Late st Contact Info) Description 10/23/[address] [facility] Support [facility] ([facility]) [address] 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
--- OUTSIDE RECORDS SUMMARY | 2025-01-17 22:31 | XMS_ITS | Encounter Summary ---
Author Organization [employer] Address [address] [place] [address] Care Team Providers Care Weights And Measures Inspector Name Role Phone Rosanne Santana MD Primary Care Provider [phone] Encounter Details Date Type Department Care Team (Late st Contact Info) Description 12/02/2001 [facility] [address] 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
--- OUTSIDE RECORDS SUMMARY | 2025-01-17 22:31 | XMS_ITS | Encounter Summary ---
Author Organization [email or web address] Address [address] [place] [address] Care Team Providers Care Roll Threader Operator Name Role Phone Rosanne Santana MD Primary Care Provider Encounter Details Date Type Department Care Team (Latest Contact Info) Description 10/22/2004 Inpatient Historical HIS PATIENT IN A BED Jono Scherer MD [address] [place] [address] POST WALL FIRST EPISODE CARE ([facility]) (Primary Dx) Social History Tobacco Use Types Packs/Day Years Used Date Smoking Tobacco: Never Assessed Sex and Gender Information Value Date Recorded Sex Assigned at Not on file 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 Gender Identity Not on file Sexual Orientation [...] ORDERABLES Final Re sult Performing Organization Address City/[facility] Phone Number INTERFACE SYSTEM Refer to clinic/hospital department * MAGNESIUM LEVEL (10/25/2004 6:44 AM CDT) MAGNESIUM 1.9 1.5 - 2.5 mg/dL INTERFACE SYSTEM 10/25/2004 6:44 AM CDT us Rosanne Santana MD CHEMISTRY ORDERABLES Final Res ult Performing Organization Address City/[facility] Phone Number INTERFACE SYSTEM Refer [...] ORDERABLES Final Res ult Performing Organization Address [facility] Phone Number INTERFACE SYSTEM Refer to clinic/hospital department * (ABNORMAL) CK TOTAL, RELATIVE INDEX (10/24/2004 7:01 AM CDT) CARDIAC RELATIVE INDEX 4.1(H) <=4.0 INTERFACE SYSTEM CK 796(H) 10 - 170 U/L INTERFACE SYSTEM 10/24/2004 7:01 AM CDT Kan Atkinson MD CHEMISTRY ORDERABLES Final Res ult Performing Organization Address [facility] Phone Number INTERFACE SYSTEM Refer to clinic/hospital department * (ABNORMAL) CKMB W/REFLEX CK (10/24/2004 7:01 AM CDT) Pathologist [facility] CKMB 33.0(AA) <=6.7 ng/mL INTERFACE SYSTEM Comment:Persistent abnormal result CKMB INTERP See Below INTERFAC E SYSTEM Comment:Elevated CKMB,Consis tent with Myocardial Injury 10/24/2004 7:01 AM CDT Kan Atkinson MD CHEMISTRY ORDERABLES Final Res ult Performing Organization Address [facility] Phone Number INTERFACE SYSTEM Refer to clinic/hospital department * (ABNORMAL) CBC WITH DIFFERENTIAL (10/24/2004 4:42 AM CDT) Pathologist [facility] NEUTROPHILS 71(H) 45 - 70 % INTERFAC [...] ORDERABLES Final Resu lt Performing Organization Address [facility] Phone Number INTERFACE SYSTEM Refer to clinic/hospital [...] ORDERABLES Final Resu lt Performing Organization Address [facility] Number INTERFACE SYSTEM Refer to clinic/hospital department * MAGNESIUM LEVEL (10/24/2004 4:42 AM CDT) MAGNESIUM 1.9 1.5 - 2.5 mg/dL INTERFACE SYSTEM 10/24/2004 4:42 AM CDT Alba Huff CHEMISTRY ORDERABLES Final Resul t Performing Organization Address [facility] Phone Number INTERFACE SYSTEM Refer to clinic/hospital [...] mmol/L INTERFACE SYSTEM 10/24/2004 4:42 AM CDT [employer] CHEMISTRY ORDERABLES Final Resul t Performing Organization Address City/[facility] de Phone Number INTERFACE SYSTEM Refer to clinic/hospital department * (ABNORMAL) CK TOTAL, RELATIVE INDEX (10/23/2004 1:45 PM CDT) CARDIAC RELATIVE INDEX 8.0(H) <=4.0 INTERFACE SYSTEM CK 1,462(H) 10 - 170 U/L INTERFACE SYSTEM 10/23/2004 1:45 PM CDT [employer] CHEMISTRY ORDERABLES Final Resul t Performing Organization Address [facility] Phone Number INTERFACE SYSTEM Refer to clinic/hospital department * (ABNORMAL) CKMB W/REFLEX CK (10/23/2004 1:45 PM CDT) CKMB 117.0(AA) <=6.7 ng/mL INTERFACE SYSTEM Comment:Persistent abnormal result CKMB INTERP See Below INTERFAC E SYSTEM Comment:Elevated CKMB,Consis tent with Myocardial Injury 10/23/2004 1:45 PM CDT [employer] CHEMISTRY ORDERABLES Final Resul t Performing Organization Address [facility] de Phone Number INTERFACE SYSTEM Refer [...] K/uL INTERFACE SYSTEM 10/23/2004 1:45 PM CDT [employer] HEMATOLOGY ORDERABLES Final Resu lt Performing Organization Address [facility] Phone Number INTERFACE SYSTEM Refer to clinic/hospital [...] fL INTERFACE SYSTEM 10/23/2004 1:45 PM CDT [employer] HEMATOLOGY ORDERABLES Final Resu lt Performing Organization Address [facility] de Phone Number INTERFACE SYSTEM Refer [...] mmol/L INTERFACE SYSTEM 10/23/2004 1:45 PM CDT [employer] CHEMISTRY ORDERABLES Final Resul t Performing Organization Address [facility] Phone Number INTERFACE SYSTEM Refer to clinic/hospital department * MAGNESIUM LEVEL (10/23/2004 1:45 PM CDT) Pathologist [facility] MAGNESIUM 2.2 1.5 - 2.5 mg/dL INTERFACE SYSTEM 10/23/2004 1:45 PM CDT [employer] CHEMISTRY ORDERABLES Final Resul t Performing Organization Address [facility] Phone Number INTERFACE SYSTEM Refer to clinic/hospital department * (ABNORMAL) TROPONIN (W/REFLEX CKMB/CK) (10/23/2004 1:45 PM CDT) Pathologist [facility] TROPONIN T 5.78(AA) <=0.03 ng/mL INTERFACE SYSTEM Comment:Persistent abnormal result TROPONIN T INTERP See Below INTERFACE SYSTEM Comment:Elevated Troponin-T, Consistent with Myocardial Injury 10/23/2004 1:45 PM CDT [employer] ORDERABLES Final Resul t Performing Organization Address [facility] Phone Number INTERFACE SYSTEM Refer to clinic/hospital department * (ABNORMAL) CBC WITH DIFFERENTIAL (10/23/2004 11:27 AM CDT) Pathologist [facility] NEUTROPHILS 77(H) 45 - 70 % INTERFAC [...] ORDERABLES Final R esult Performing Organization Address City/[facility] de Phone Number INTERFACE SYSTEM Refer [...] ORDERABLES Final R esult Performing Organization Address City/[facility] Phone Number INTERFACE SYSTEM Refer [...] ORDERABLES Final Re sult Performing Organization Address [facility] Phone Number INTERFACE SYSTEM Refer to clinic/hospital department * (ABNORMAL) CK TOTAL, RELATIVE INDEX (10/23/2004 11:27 AM CDT) CARDIAC RELATIVE INDEX 8.5(H) <=4.0 INTERFACE SYSTEM CK 1,062(H) 10 - 170 U/L INTERFACE SYSTEM 10/23/2004 11:2 7 AM CDT Jono Scherer MD CHEMISTRY ORDERABLES Final Re sult Performing Organization Address [facility] Phone Number INTERFACE SYSTEM Refer to clinic/hospital department * (ABNORMAL) CKMB W/REFLEX CK (10/23/2004 11:27 AM CDT) CKMB 90.5(AA) <=6.7 ng/mL INTERFACE SYSTEM Comment:Persistent abnormal result CKMB INTERP See Below INTERFAC E SYSTEM Comment:Elevated CKMB,Consis tent with Myocardial Injury 10/23/2004 11:2 7 AM CDT us Jono Scherer MD CHEMISTRY ORDERABLES Final Re sult Performing Organization Address [facility] Phone Number INTERFACE SYSTEM Refer to clinic/hospital department * (ABNORMAL) TROPONIN (W/REFLEX CKMB/CK) (10/23/2004 11:27 AM CDT) TROPONIN T 3.92(AA) <=0.03 ng/mL INTERFACE SYSTEM Comment:Persistent abnormal result TROPONIN T INTERP See Below INTERFACE SYSTEM Comment:Elevated Troponin-T, Consistent with Myocardial Injury 10/23/2004 11:2 7 AM CDT Jono Scherer MD CHEMISTRY ORDERABLES Final Re sult Performing Organization Address [facility] Phone Number INTERFACE SYSTEM Refer to clinic/hospital department * MAGNESIUM LEVEL (10/23/2004 2:44 AM CDT) MAGNESIUM 1.8 1.5 - 2.5 mg/dL INTERFACE SYSTEM 10/23/2004 2:44 AM CDT Jono Scherer MD CHEMISTRY ORDERABLES Final Re sult Performing Organization Address [facility] Phone Number INTERFACE SYSTEM Refer to clinic/hospital department * (ABNORMAL) CK TOTAL, RELATIVE INDEX (10/23/2004 2:44 AM CDT) CARDIAC RELATIVE INDEX 9.4(H) <=4.0 INTERFACE SYSTEM CK 1,648(H) 10 - 170 U/L INTERFACE SYSTEM 10/23/2004 2:44 AM CDT Jono Scherer MD CHEMISTRY ORDERABLES Final Re sult Performing Organization Address [facility] Phone Number INTERFACE SYSTEM Refer [...] ORDERABLES Final Re sult Performing Organization Address [facility] Phone Number INTERFACE SYSTEM Refer to [...] ORDERABLES Final R esult Performing Organization Address [facility] Phone Number INTERFACE SYSTEM Refer to clinic/hospital [...] <=0.03 ng/mL INTERFACE SYSTEM Comment:[facility]12 [facility] and read back verified. TROPONIN T INTERP See Below INTERFACE SYSTEM Comment:Elevated Troponin-T, Consistent with Myocardial Injury 10/23/2004 2:44 AM CDT Jono Scherer MD CHEMISTRY ORDERABLES Final Re sult Performing Organization Address City/[facility]/ZIP Co de Phone Number INTERFACE [...] ORDERABLES Final Re sult Performing Organization Address City/[facility] de Phone Number INTERFACE SYSTEM Refer [...] ORDERABLES Final Re sult Performing Organization Address [facility] de Phone Number INTERFACE SYSTEM Refer to clinic/hospital department documented in this encounter Visit Diagnoses Diagnosis Acute myocardial infarction, true posterior wall infarction, initial episode of care- Primary documented in this encounter Care Teams Roll Threader Operator Relationship Specialty Start Date End Date Rosanne Santana MD [address] [place] [address] [place] [address] PCP - General 10/24/03 documented as of this encounter
--- OUTSIDE RECORDS SUMMARY | 2025-01-17 22:31 | XMS_ITS | Encounter Summary ---
Author Organization [employer] Address [address] [place] [address] Care Team Providers Care Drosser Name Role Phone Rosanne Santana MD Primary Care Provider [phone] Encounter Details Date Type Department Care Team (Latest Contact Info) Description 01/17/2003 Outpatient [facility] [facility] [address] [place] [address] & [place] [address] Rosanne Santana MD [address] [place] [address] PURE HYPERCHOLESTEROLEM (Primary Dx) Social History Tobacco Use Types Packs/Day Years Used Date Smoking Tobacco: Never Assessed Sex and Gender Information Value Date Recorded Sex Assigned at Not on file Legal 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
--- OUTSIDE RECORDS SUMMARY | 2025-01-17 22:31 | XMS_ITS | Encounter Summary ---
Author Organization [employer] Address [address] [place] [address] Care Team Providers Care Cushion Former Name Role Phone Rosanne Santana MD Primary Care Provider [phone] Encounter Details Date Type Department Care Team (Latest Contact Info) Description 10/24/2003 Outpatient [facility] [address] [place] [address] & [place] [address] Rosanne Santana MD [address] [place] [address] PURE HYPERCHOLESTEROLEM (Primary Dx) Social History Tobacco Use Types Packs/Day Years Used Date Smoking Tobacco: Never Assessed Sex and Gender Information Value Date Recorded Sex Assigned at Not on file Legal Sex Male 4:23 AM FALL INTERN Gender Identity Not on file Sexual Orientation Not on file documented as of this encounter Plan of Treatment Not on file documented as of this encounter Visit Diagnoses Diagnosis Pure hypercholesterolemia- Primary documented in this encounter Care Teams Cushion Former Relationship Specialty Start Date End Date Rosanne Santana MD [address] [place] [address] PCP - General 10/24/03 documented as of this encounter
--- OUTSIDE RECORDS SUMMARY | 2025-01-17 22:31 | XMS_ITS | Encounter Summary ---
Author Organization [employer] Address 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
--- OUTSIDE RECORDS SUMMARY | 2025-01-17 22:31 | XMS_ITS | Encounter Summary ---
Author Organization [employer] Address 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
--- OUTSIDE RECORDS SUMMARY | 2025-01-17 22:31 | XMS_ITS | Encounter Summary ---
Author Organization [employer] Address [address] [place] [address] Care Team Providers Care Binder Folder Operator Name Role Phone Rosanne Santana MD Primary Care Provider [phone] Encounter Details Date Type Department Care Team (Latest Contact Info) Description 01/17/2004 Outpatient [facility] [address] [place] [address] & [place] [address] Rosanne Santana MD [address] [place] [address] PURE HYPERCHOLESTEROLEM (Primary Dx) Social History Tobacco Use Types Packs/Day Years Used Date Smoking Tobacco: Never Assessed Sex and Gender Information Value Date Recorded Sex Assigned at Not on file 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
--- OUTSIDE RECORDS SUMMARY | 2025-01-17 22:31 | XMS_ITS | Encounter Summary ---
Author Organization [facility] Address [address] [place] [address] Care Team Providers Care Winter Sports Manager Name Role Phone Rosanne Santana MD Primary Care Provider [phone] Encounter Details Date Type Department Care Team (Late st Contact Info) Description 01/17/2003 Outpatient [facility] [address] [place] [address] & [place] [address] Social History Tobacco Use Types Packs/Day Years Used Date Smoking Tobacco: Never Assessed Sex and Gender Information Value Date Recorded Sex Assigned at Not on file Legal Sex Male 4:23 AM REGISTRAR MUSEUM Gender Identity Not on file Sexual Orientation Not on file documented as of this encounter Plan of Treatment Not on file documented as of this encounter Visit Diagnoses Not on filedocumented in this encounter Care Teams Winter Sports Manager Relationship Specialty Start Date End Date Rosanne Santana MD [address] [place] [address] [place] [address] PCP - General 10/24/03 documented as of this encounter
--- OUTSIDE RECORDS SUMMARY | 2025-01-17 22:31 | XMS_ITS | Encounter Summary ---
Author Organization [employer] Address [address] [place] [address] Care Team Providers Care Money Position Officer Name Role Phone Rosanne Santana MD Primary Care Provider [phone] Encounter Details Date Type Department Care Team (Late st Contact Info) Description 11/08/[address] [facility] Support Serv. ([facility]) [address] [place] [id number] Adelso Weathers MD NO ADDRESS ON FILE Social History Tobacco Use Types Packs/Day Years Used Date Smoking Tobacco: Never Assessed Sex and Gender Information Value Date Recorded Sex Assigned at Not on file Legal Sex Male 4:23 AM HOURLY TEAM MEMBERS Gender Identity Not on file Sexual Orientation Not on file documented as of this encounter Plan of Treatment Not on file documented as of this encounter Visit Diagnoses Not on filedocumented in this encounter Care Teams Money Position Officer Relationship Specialty Start Date End Date Rosanne Santana MD [address] [place] [address] PCP - General 10/24/03 documented as of this encounter
--- OUTSIDE RECORDS SUMMARY | 2025-01-17 22:31 | XMS_ITS | Encounter Summary ---
Author Organization [employer] Address [address] [place] [address] Care Team Providers Care Supervisor Advice Name Role Phone Rosanne Santana MD Primary Care Provider [phone] Encounter Details Date Type Department Care Team (Late st Contact Info) Description 12/02/2001 [facility]patient [facility] [address] 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
--- NOTE | 2025-01-17 22:42 | ECG_ITS ---
Test Date: 2025-01-17 22:46:07 Measurements Intervals [place] Rate: 87 P: 54 NM: 148 QRS: -71 QRSD: 148 T: 58 QT: 385 QTc: 465 Interpretive Statements SINUS RHYTHM WITH FREQUENT VENTRICULAR PREMATURE COMPLEXES RIGHT BUNDLE BRANCH BLOCK LEFT ANTERIOR FASCICULAR BLOCK BASELINE ARTIFACT- I, II, III, AVR, AVL, AVF ABNORMAL ECG Compared to ECG 09/08/2024 04:42:25 Ventricular premature complex(es) now present Electronically Signed On 01-18-2025 06:18:02 CDT by Hollis Reynoso D.O.
[2025-01-17 23:32] LABS: Hematocrit 38.7 % (42.0-52.0); Hemoglobin 12.8 g/dL (14.0-18.0); Immature Granulocyte Percent A 1.5 % (0-0.5); Lymphocytes Absolute Auto 0.96 K/mm3 (0.9-3.2); Mean Corpuscular HGB Conc 33.1 g/dl (32-36); Mean Corpuscular Hemoglobin 31.8 pg (26-34); Mean Corpuscular Volume 96.3 fl (80-100); Nucleated Red Blood Cells Absolute Auto 0.000 K/mm3 (0.0-0.012); Nucleated Red Blood Cells Perc 0.0 % (0.0-0.2); Platelet Count Result 159 k/mm3 (150-375); Red Blood Count 4.02 M/mm3 (4.6-6.20); White Blood Count 8.3 K/mm3 (4.5-10.0)
[2025-01-17 23:33] LABS: Alanine Aminotransferase 44 U/L (6-50); Albumin Level 4.0 g/dL (3.5-5.1); Alkaline Phosphatase 99 U/L (38-126); Anion Gap 8 mmol/L (4-12); Aspartate Amino Transferase 24 U/L (17-59); Bilirubin,Total 0.7 mg/dL (0.2-1.3); Blood Urea Nitrogen 20 mg/dL (9-20); Calcium 9.2 mg/dL (8.4-10.2); Carbon Dioxide 26 mmol/L (22-30); Chloride 99 mmol/L (98-107); Estimated CRCL calculation 63 ml/min; Estimated Glomerular Filt Rate > 60; Glucose 172 mg/dL (65-110); Lipase 107 U/L (23-300); Potassium 4.4 mmol/L (3.4-5.0); Sodium 133 mmol/L (137-145); Total Protein 7.5 g/dL (6.3-8.2)
--- OUTSIDE RECORDS SUMMARY | 2025-01-17 23:37 | XMS_ITS | Encounter Summary ---
Author Organization [facility] [place] [facility] Address [address] [place] [address] Phone Care Team Providers Care Ground Crew Lines Person Name Role Phone Nikky Reyes MD Primary Care Provider Venkat Vivar DO Unavailable [phone] Kwaku Martin MD Unavailable [phone] Richard Hargrove MD Unavailable [phone] Adelso Quiñones MD Unavailable [phone] Brenton Cabrera MD Unavailable [phone] Encounter Details Date Type Department Care Team (Late st Contact Info) Description 12/15/2024 Results Follow-Up [facility] Medicine Physicians [facility] Oncology [facility] [address] [place] [address] Laura Arias, RN CT Chest Abdomen [...] on file 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 Gender Identity Not on file Sexual Orientation Not on file Occupation Industry Job Start Date Job End Date Retired Not on file Not on file Not on file documented as of this encounter Plan of Treatment Not on file documented as of this encounter Visit Diagnoses Not on filedocumented in this encounter Care Teams Ground Crew Lines Person Relationship Specialty Start Date End Date Nikky Reyes MD [address] [facility] [address] [place] [address] PCP - General Family Practice 12/15/23 Venkat Vivar DO [address] [place] [address] MEDICAL ONCOLOGY, [facility] [address] [place], [place] [address] Medical Oncologist/Hematologis t Hematology and Oncology 12/15/23 Kwaku Martin MD [address] [place] [address] MEDICAL ONCOLOGY, [facility] [address] [place] [address] Consulting Physician Urology 12/15/23 Richard Hargrove MD [address] [place] [address] Radiation Oncologist Radiation Oncology 01/08/24 [place]so Qu[place] [address] [address] [facility] [address] [place] [address] Surgeon Urology 01/22/24 Brenton Cabrera MD [address] [place] [address] [address] [place] [address] Referring Physician Neurosurgery 11/26/24 documented as of this encounter
--- OUTSIDE RECORDS SUMMARY | 2025-01-17 23:37 | XMS_ITS | Encounter Summary ---
Author Organization [facility] Address [address] [place] [address] Care Team Providers Care Club Lounge Attendant Name Role Phone Nikky Reyes MD Primary Care Provider Encounter Details Date Type Department Care Team (Late st Contact Info) Description 04/01/2024 Prep for Procedure [facility] [place], [place] [id number] Adelso Quiñones MD 3 [facility] [address] [place], [place] [id number] Social History Tobacco Use Types Packs/Day Years Used Date Smoking Tobacco: Former Cigarettes 2 15 S tarted: 1967 Smokeless Tobacco: Never Alcohol Use Standard Drinks/Week Comments Not Currently 0 (1 standard drink = 0.6 oz pur e alcohol) sober 43 years Sex and Gender Information Value Date Recorded Sex Assigned at Not on file Legal Sex Male 1:18 PM REGISTERED PHLEBOTOMIST PART TIME Gender Identity Not on file Sexual Orientation Not on file documented as of this encounter Plan of Treatment Not on file documented as of this encounter Results * (ABNORMAL) URINE BACTERIA CULTURE (04/02/2024 2:46 PM REGISTERED PHLEBOTOMIST PART TIME) SPEC DESCRIPTION URINE CLEAN CATCH 04/02/2024 2:47 PM REGISTERED PHLEBOTOMIST PART TIME [facility] SPECIAL REQUESTS NO SPECIAL REQUEST 04/02/2024 2:47 PM REGISTERED PHLEBOTOMIST PART TIME [facility] CULTURE RESULT >100,000 COL/ML STAPH. SPECIES NOT STAPH. AUREUS (A) 04/04/2024 8:02 AM REGISTERED PHLEBOTOMIST PART TIME [facility] URINE SPECIMEN OBTAINED BY CLEAN CATCH PROCEDURE / Unknown 04/02/2024 2:46 PM REGISTERED PHLEBOTOMIST PART TIME 04/02/2024 3:46 PM REGISTERED PHLEBOTOMIST PART TIME Narrative Organism Antibiotic Method Susceptibility Staph. species [...] MICROBIOLOGY - GENERAL ORDERABL ES Final Result [facility] [address] [place] [address], documented in this encounter Visit Diagnoses Diagnosis Bladder cancer (CMS/HCC HHS/HCC)- Primary Malignant neoplasm of bladder, part unspecified Hydronephrosis with ureteral stricture documented in this encounter Additional Health Concerns Infection Onset Date Last Indicated Resolved Time COVID-19 Rule Out 04/10/2024 04/10/2024 04/10/2024 1:35 PM REGISTERED PHLEBOTOMIST PART TIME Influenza - Seasonal 04/10/2024 04/10/2024 025 12:32 AM REGISTERED PHLEBOTOMIST PART TIME documented as of this encounter Care Teams Club Lounge Attendant Relationship Specialty Start Date End Date Nikky Reyes MD [address] [place] [address] PCP - General FAMILY PRACTICE 05/04/21 documented as of this encounter
--- OUTSIDE RECORDS SUMMARY | 2025-01-17 23:37 | XMS_ITS | Encounter Summary ---
Author Organization [facility] Address [address] [place] [address] Care Team Providers Care Eyeglass Cutter Name Role Phone Nikky Reyes MD Primary Care Provider Encounter Details Date Type Department Care Team (Late st Contact Info) Description 11/27/2023 Prep for Procedure 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 SPECIES NOT STAPH. AUREUS (A) 11/30/2023 9:35 AM CDT [facility] URINE SPECIMEN OBTAINED BY CLEAN CATCH PROCEDURE / Unknown 11/28/2023 8:45 AM CDT 11/28/2023 8:56 AM CDT Narrative Organism Antibiotic Method Susceptibility Staph. species not staph. aureus NITROFURANTOIN NIRMALA (V ITEK) <=16: Sensitive Staph. species not staph. aureus LEVOFLOXACIN NIRMALA (VIT EK) 4: Resistant Staph. species not staph. aureus OXACILLIN NIRMALA (VIT EK) >=4: Resistant Staph. species not staph. aureus TRIMETH-SULFAMETH. GA C (VITEK) 20: Sensitive Staph. species not staph. aureus TETRACYCLINE NIRMALA (VIT EK) >=16: Resistant Staph. species not staph. aureus VANCOMYCIN NIRMALA (VIT EK) 2: Sensitive Kwaku Martin MD MICROBIOLOGY - GENERAL ORDERABLES Final Result [facility] [address] [place] [id number], * (ABNORMAL) URINALYSIS (11/28/2023 8:45 AM CDT) SPECIMEN TYPE URINE CLEAN CATCH 11/28/2023 8:53 AM CDT [facility] COLOR (U) YELLOW 11/28/2023 9:11 AM CDT [facility] TRANSPARENCY TURBID 11/28/2023 9:11 AM CDT [facility] SPECIFIC GRAVITY (U) 1.014 1.001 - 1.030 11/28/2023 9:11 AM CDT [facility] U PH 5.5 5.0 - 9.0 11/28/2023 9:11 AM CDT [facility] LEUKOCYTES (U) 500(A) NEGATIVE 11/28/2023 9:11 AM CDT [facility] NITRITES 1+(A) NEGATIVE 11/28/2023 9:11 AM T [facility] PROTEIN RANDOM (U) 70(H) <30 MG/DL 11/28/2023 9:11 AM CDT [facility] GLUCOSE (U) NORMAL NORMAL MG/DL 11/28/2023 9:11 AM CDT [facility] KETONES MG/DL (U) NEGATIVE NEGATIVE MG/DL 11/28/2023 9:11 AM CDT [facility] UROBILINOGEN NORMAL NORMAL MG/DL 11/28/2023 9:11 AM T [facility] BILIRUBIN (U) NEGATIVE NEGATIVE MG/DL 11/28/2023 9:11 AM CDT [facility] BLOOD (U) 3+(A) NEGATIVE 11/28/2023 9:11 AM T [facility] MUCUS RARE /LPF 11/28/2023 9:11 AM T [facility] WBC/HPF >100(H) <6 /HPF 11/28/2023 9:11 AM T [facility] WBC CLUMPS PRESENT 11/28/2023 9:11 AM T [facility] RBC/HPF 21(H) <6 /HPF 11/28/2023 9:11 AM T [facility] BACTERIA (U) MODERATE(A) NONE /HPF 11/28/2023 9:11 AM T [facility] URINE SPECIMEN OBTAINED BY CLEAN CATCH PROCEDURE / Unknown 11/28/2023 8:45 AM CDT us Kwaku Martin MD URINE ORDERABLES Final Result [facility] [address] [place] [address], [place] [phone] * (ABNORMAL) BASIC METABOLIC PANEL (11/28/2023 8:43 AM CDT) [facility] GLUCOSE 110(H) 70 - 99 MG/DL 11/28/2023 10:22 AM CDT [facility] BUN 12 7 - 18 MG/DL 11/28/2023 10:22 AM CDT [facility] CREATININE S/P/B 1.19 0.7 - 1.3 MG/DL 11/28/2023 10:22 AM CDT [facility] SODIUM S/P/B 138 136 - 145 MMOL/L 11/28/2023 10:22 AM CDT [facility] POTASSIUM S/P/B 3.5 3.5 - 5.1 MMOL/L 11/28/2023 10:22 AM T [facility] CHLORIDE S/P/B 106 97 - 115 MMOL/L 11/28/2023 10:22 AM T [facility] CO2 27.4 21 - 32 MMOL/L 11/28/2023 10:22 AM T [facility] CALCIUM S/P/B 9.2 8.5 - 10.1 MG/DL 11/28/2023 10:22 AM T [facility] ANION GAP 4.6 2 - 10 MMOL/L 11/28/2023 10:22 AM T [facility] BUN CREATININE RATIO 10.1 6 - 26 11/28/2023 10:22 AM T [facility] GFR ESTIMATE 64(L) >90 ML/MIN/1.7 3 M2 11/28/2023 10:22 AM T [facility] Comment: NOTE: eGFR is not [...] Kwaku Martin MD LABORATORY Final R esult [facility] [address] [place] [address], * (ABNORMAL) CBC W/DIFF AUTOMATED (11/28/2023 8:43 AM CDT) WBC 7.86 4.5 - 11.0 x10'3/uL 11/28/2023 9:12 AM CDT [facility] RBC 4.08(L) 4.70 - 6.10 x10'6/uL 11/28/2023 9:12 AM CDT [facility] HGB 13.1(L) 14.0 - 18.0 G/DL 11/28/2023 9:12 AM CDT [facility] HCT 39.3(L) 43.0 - 54.0 % 11/28/2023 9:12 AM CDT [facility] MCV 96.3(H) 80.0 - 94.0 FL 11/28/2023 9:12 AM CDT [facility] MCH 32.1(H) 27.0 - 31.0 PG 11/28/2023 9:12 AM CDT [facility] MCHC 33.3 32.0 - 36.0 G/DL 11/28/2023 9:12 AM CDT [facility] RDW 14.4 11.5 - 14.5 % 11/28/2023 9:12 AM CDT [facility] PLT 236 130 - 400 x10'3/uL 11/28/2023 9:12 AM CDT [facility] MPV 9.3 9.3 - 12.2 FL 11/28/2023 9:12 AM CDT [facility] DIFFERENTIAL TYPE AUTOMATED DIFFERENTIAL 11/28/2023 9:12 AM CDT [facility] NEUTROPHILS % 67.3 % 11/28/2023 9:12 AM CDT [facility] LYMPHOCYTES % 17.9 % 11/28/2023 9:12 AM CDT [facility] MONOCYTES % 11.6 % 11/28/2023 9:12 AM CDT [facility] EOSINOPHILS 2.2 % 11/28/2023 9:12 AM CDT [facility] BASOPHILS 0.6 % 11/28/2023 9:12 AM CDT [facility] IMMATURE GRANS % 0.4 % 11/28/19 9:12 AM CDT [facility] ABS. NEUTROPHILS 5.29 1.80 - 7.70 x10'3/uL 11/28/2023 9:12 AM CDT [facility] ABS. LYMPHOCYTES 1.41 1.00 - 4.80 x10'3/uL 11/28/2023 9:12 AM CDT [facility] ABS. MONOCYTES 0.91(H) 0.30 - 0.82 x10'3/uL 11/28/2023 9:12 AM CDT [facility] ABS. EOSINOPHILS 0.17 0.04 - 0.54 x10'3/uL 11/28/2023 9:12 AM CDT [facility] ABS. BASOPHILS 0.05 0.01 - 0.08 x10'3/uL 11/28/2023 9:12 AM CDT [facility] ABS. 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
--- OUTSIDE RECORDS SUMMARY | 2025-01-17 23:37 | XMS_ITS | Clinical Summary ---
Author Organization [facility] Address [facility] [place] [address] Care Team Providers Care Commutator Inspector Name Role Phone Nikky Reyes MD [...] on file Legal Sex Male 1:18 PM REFERENCE ASSISTANT Gender Identity Not on file Sexual Orientation Not on file Last Filed Vital Signs Vital Sign Reading Time Taken Comments Blood Pressure 103/70 04/10/2024 12:28 PM REFERENCE ASSISTANT Pulse 90 04/10/2024 12:28 PM REFERENCE ASSISTANT Temperature 37.5 C (99.5 F) 04/10/2024 12:28 PM REFERENCE ASSISTANT Respiratory Rate 16 04/10/2024 12:28 PM REFERENCE ASSISTANT Oxygen Saturation 100% 04/10/2024 12:28 PM REFERENCE ASSISTANT Inhaled Oxygen Concentration - - Weight 87.1 kg (192 lb) 04/10/2024 12:28 PM REFERENCE ASSISTANT Height 185.4 cm (6' 1) 04/10/2024 12:28 PM REFERENCE ASSISTANT Body Mass Index 25.33 04/10/2024 12:28 PM REFERENCE ASSISTANT Plan of Treatment Health Maintenance Due Date [...] this topic Medical Devices Explanted Type Area Grain Buyer Device Identifier Shelf Expiration Date Model / Serial / Lot Stent Ureteral [employer] [place] [employer] Contour Vl 6fr X 22-30cm - [id number] Implanted:Qty: 1 on 12/05/2023 by Kwaku Martin MD at [facility] Explanted:Qty: 1 on 04/08/2024 by Adelso Quiñones MD at [facility] Stent Right: Ureter [employer] 07/17/2026 [id number] / / [id number] Insurance MEDICARE [facility] Care Teams Commutator Inspector Relationship Specialty Start Date End Date Nikky Reyes MD [address] [place] [address] PCP - General FAMILY PRACTICE 05/04/21
--- OUTSIDE RECORDS SUMMARY | 2025-01-17 23:37 | XMS_ITS | Encounter Summary ---
Author Organization [employer] Address 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
--- OUTSIDE RECORDS SUMMARY | 2025-01-17 23:37 | XMS_ITS | Encounter Summary ---
Author Organization [facility] Address [address] [place] [address] Care Team Providers Care Auxiliary Equipment Tender Name Role Phone Nikky Reyes MD Primary Care Provider Encounter Details Date Type Department Care Team (Late st Contact Info) Description 11/27/[address] 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 11/28/2023 8:53 AM. [...] Procedure Note Richard Chaparro MD - 11/28/[address] [address] PROCEDURE: XR CHEST PA+LAT. 11/28/2023 8:53 AM. [...] Rule Out 04/10/2024 04/10/2024 04/10/2024 1:35 PM FARM IMPLEMENT MECHANIC Influenza - Seasonal 04/10/2024 04/10/2024 025 12:32 AM FARM IMPLEMENT MECHANIC documented as of this encounter Care Teams Auxiliary Equipment Tender Relationship Specialty Start Date End Date Nikky Reyes MD [address] [place] [address] PCP - General FAMILY PRACTICE 05/04/21 documented as of this encounter
--- OUTSIDE RECORDS SUMMARY | 2025-01-17 23:37 | XMS_ITS | Encounter Summary ---
Author Organization [employer] Address [address] [place] [address] Care Team Providers Care Sharepoint Admin Name Role Phone Rosanne Santana MD Primary Care Provider [phone] Encounter Details Date Type Department Care Team (Late st Contact Info) Description 05/03/1998 Emergency [facility] Eliezer Goddard, [address] [facility] [address] [place] [address] Er, Authorized P NO ADDRESS ON FILE Other specified sites of sprains and strains (Primary Dx) Social History Tobacco Use Types Packs/Day Years Used Date Smoking Tobacco: Never Assessed Sex and Gender Information Value Date Recorded Sex Assigned at Not on file 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
--- OUTSIDE RECORDS SUMMARY | 2025-01-17 23:38 | XMS_ITS | Encounter Summary ---
Author Organization [email or web address] Address [address] [place] [address] Care Team Providers Care Assembler Movement Name Role Phone Rosanne Santana MD Primary Care Provider [phone] Encounter Details Date Type Department Care Team (Late st Contact Info) Description 05/16/[address] [facility] [address] 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
--- OUTSIDE RECORDS SUMMARY | 2025-01-17 23:38 | XMS_ITS | Encounter Summary ---
Author Organization [employer] Address [address] [facility] [place] [address] Care Team Providers Care Firewall Engineer Name Role Phone Rosanne Santana MD Primary Care Provider [phone] Encounter Details Date Type Department Care Team (Late st Contact Info) Description 10/23/[address] [facility] ([facility]) [address] 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
--- OUTSIDE RECORDS SUMMARY | 2025-01-17 23:38 | XMS_ITS | Encounter Summary ---
Author Organization [employer] Address 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
--- OUTSIDE RECORDS SUMMARY | 2025-01-17 23:38 | XMS_ITS | Encounter Summary ---
Author Organization [employer] Address [address] [place] [address] Care Team Providers Care Sterile Processing Manager Name Role Phone Rosanne Santana MD Primary Care Provider [phone] Encounter Details Date Type Department Care Team (Latest Contact Info) Description 01/17/2004 Outpatient [facility] [address] [place] [address] & [place] [address] Rosanne Santana MD [address] [facility] [address] [place] [address] PURE HYPERCHOLESTEROLEM (Primary Dx) Social History Tobacco Use Types Packs/Day Years Used Date Smoking Tobacco: Never Assessed Sex and Gender Information Value Date Recorded Sex Assigned at Not on file Legal Sex Male 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
--- OUTSIDE RECORDS SUMMARY | 2025-01-17 23:38 | XMS_ITS | Encounter Summary ---
Author Organization [employer] Address [address] [place] [address] Care Team Providers Care Radiation Physicist Name Role Phone Rosanne Santana MD Primary Care Provider [phone] Encounter Details Date Type Department Care Team (Latest Contact Info) Description 10/24/2003 Outpatient [facility] [employer] [facility] [address] [place] [address] & [place] [address] Rosanne Santana MD [address] 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 [address] [place] [address] PCP - General 10/24/03 documented as of this encounter
--- OUTSIDE RECORDS SUMMARY | 2025-01-17 23:38 | XMS_ITS | Encounter Summary ---
Author Organization [employer] Address [address] [place] [address] Care Team Providers Care Chemistry Lecturer Name Role Phone Rosanne Santana MD Primary Care Provider [phone] Encounter Details Date Type Department Care Team (Latest Contact Info) Description 10/22/2004 Inpatient Historical HIS PATIENT IN A BED Jono Scherer MD [address] [place] [address] [facility] WALL [facility] ([facility]) (Primary Dx) Social History Tobacco Use Types Packs/Day Years Used Date Smoking Tobacco: Never Assessed Sex and Gender Information Value Date Recorded Sex Assigned at Not on file Legal Sex 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 Gender Identity Not on file Sexual Orientation [...] ORDERABLES Final Re sult Performing Organization Address [facility] Co de Phone Number INTERFACE SYSTEM Refer to clinic/hospital department * MAGNESIUM LEVEL (10/25/2004 6:44 AM CDT) MAGNESIUM 1.9 1.5 - 2.5 mg/dL INTERFACE SYSTEM 10/25/2004 6:44 AM CDT us Rosanne Santana MD CHEMISTRY ORDERABLES Final Res ult Performing Organization Address [facility] Co de Phone Number INTERFACE [...] ORDERABLES Final Res ult Performing Organization Address [facility] Phone Number INTERFACE SYSTEM Refer to clinic/hospital department * (ABNORMAL) CK TOTAL, RELATIVE INDEX (10/24/2004 7:01 AM CDT) CARDIAC RELATIVE INDEX 4.1(H) <=4.0 INTERFACE SYSTEM CK 796(H) 10 - 170 U/L INTERFACE SYSTEM 10/24/2004 7:01 AM CDT Kan Atkinson MD CHEMISTRY ORDERABLES Final Res ult Performing Organization Address [facility] Phone Number INTERFACE SYSTEM Refer to clinic/hospital department * (ABNORMAL) CKMB W/REFLEX CK (10/24/2004 7:01 AM CDT) Pathologist [facility] CKMB 33.0(AA) <=6.7 ng/mL INTERFACE SYSTEM Comment:Persistent abnormal result CKMB INTERP See Below INTERFAC E SYSTEM Comment:Elevated CKMB,Consis tent with Myocardial Injury 10/24/2004 7:01 AM CDT Kan Atkinson MD CHEMISTRY ORDERABLES Final Res ult Performing Organization Address [facility] Phone Number INTERFACE SYSTEM Refer to clinic/hospital [...] ORDERABLES Final Resu lt Performing Organization Address [facility] Phone Number INTERFACE SYSTEM Refer to clinic/hospital [...] ORDERABLES Final Resu lt Performing Organization Address [facility] Number INTERFACE SYSTEM Refer to clinic/hospital department * MAGNESIUM LEVEL (10/24/2004 4:42 AM CDT) MAGNESIUM 1.9 1.5 - 2.5 mg/dL INTERFACE SYSTEM 10/24/2004 4:42 AM CDT Alba Huff CHEMISTRY ORDERABLES Final Resul t Performing Organization Address [facility] Phone Number INTERFACE SYSTEM Refer to clinic/hospital [...] mmol/L INTERFACE SYSTEM 10/24/2004 4:42 AM CDT [employer] CHEMISTRY ORDERABLES Final Resul t Performing Organization Address [facility] de Phone Number INTERFACE SYSTEM Refer to clinic/hospital department * (ABNORMAL) CK TOTAL, RELATIVE INDEX (10/23/2004 1:45 PM CDT) CARDIAC RELATIVE INDEX 8.0(H) <=4.0 INTERFACE SYSTEM CK 1,462(H) 10 - 170 U/L INTERFACE SYSTEM 10/23/2004 1:45 PM CDT [employer] CHEMISTRY ORDERABLES Final Resul t Performing Organization Address [facility] Phone Number INTERFACE SYSTEM Refer to clinic/hospital department * (ABNORMAL) CKMB W/REFLEX CK (10/23/2004 1:45 PM CDT) CKMB 117.0(AA) <=6.7 ng/mL INTERFACE SYSTEM Comment:Persistent abnormal result CKMB INTERP See Below INTERFAC E SYSTEM Comment:Elevated CKMB,Consis tent with Myocardial Injury 10/23/2004 1:45 PM CDT [employer] CHEMISTRY ORDERABLES Final Resul t Performing Organization Address [facility] de Phone Number INTERFACE SYSTEM Refer [...] K/uL INTERFACE SYSTEM 10/23/2004 1:45 PM CDT [employer] HEMATOLOGY ORDERABLES Final Resu lt Performing Organization Address [facility] Phone Number INTERFACE SYSTEM Refer to clinic/hospital [...] fL INTERFACE SYSTEM 10/23/2004 1:45 PM CDT [email or web address] HEMATOLOGY ORDERABLES Final Resu lt Performing Organization Address [facility] de Phone Number INTERFACE SYSTEM Refer [...] mmol/L INTERFACE SYSTEM 10/23/2004 1:45 PM CDT [email or web address] CHEMISTRY ORDERABLES Final Resul t Performing Organization Address [facility] Phone Number INTERFACE SYSTEM Refer to clinic/hospital department * MAGNESIUM LEVEL (10/23/2004 1:45 PM CDT) Pathologist [facility] MAGNESIUM 2.2 1.5 - 2.5 mg/dL INTERFACE SYSTEM 10/23/2004 1:45 PM CDT [employer] CHEMISTRY ORDERABLES Final Resul t Performing Organization Address [facility] Phone Number INTERFACE SYSTEM Refer to clinic/hospital department * (ABNORMAL) TROPONIN (W/REFLEX CKMB/CK) (10/23/2004 1:45 PM CDT) Pathologist [facility] TROPONIN T 5.78(AA) <=0.03 ng/mL INTERFACE SYSTEM Comment:Persistent abnormal result TROPONIN T INTERP See Below INTERFACE SYSTEM Comment:Elevated Troponin-T, Consistent with Myocardial Injury 10/23/2004 1:45 PM CDT [email or web address] ORDERABLES Final Resul t Performing Organization Address [facility] Phone Number INTERFACE SYSTEM Refer to clinic/hospital [...] ORDERABLES Final R esult Performing Organization Address [place]/[facility] de Phone Number INTERFACE SYSTEM Refer [...] ORDERABLES Final R esult Performing Organization Address [place]/[facility] Co de Phone Number INTERFACE [...] ORDERABLES Final Re sult Performing Organization Address [facility] Phone Number INTERFACE SYSTEM Refer to clinic/hospital department * (ABNORMAL) CK TOTAL, RELATIVE INDEX (10/23/2004 11:27 AM CDT) CARDIAC RELATIVE INDEX 8.5(H) <=4.0 INTERFACE SYSTEM CK 1,062(H) 10 - 170 U/L INTERFACE SYSTEM 10/23/2004 11:2 7 AM CDT Jono Scherer MD CHEMISTRY ORDERABLES Final Re sult Performing Organization Address [facility] Phone Number INTERFACE SYSTEM Refer to clinic/hospital department * (ABNORMAL) CKMB W/REFLEX CK (10/23/2004 11:27 AM CDT) CKMB 90.5(AA) <=6.7 ng/mL INTERFACE SYSTEM Comment:Persistent abnormal result CKMB INTERP See Below INTERFAC E SYSTEM Comment:Elevated CKMB,Consis tent with Myocardial Injury 10/23/2004 11:2 7 AM CDT us Jono Scherer MD CHEMISTRY ORDERABLES Final Re sult Performing Organization Address [facility] Phone Number INTERFACE SYSTEM Refer to clinic/hospital department * (ABNORMAL) TROPONIN (W/REFLEX CKMB/CK) (10/23/2004 11:27 AM CDT) TROPONIN T 3.92(AA) <=0.03 ng/mL INTERFACE SYSTEM Comment:Persistent abnormal result TROPONIN T INTERP See Below INTERFACE SYSTEM Comment:Elevated Troponin-T, Consistent with Myocardial Injury 10/23/2004 11:2 7 AM CDT Jono Scherer MD CHEMISTRY ORDERABLES Final Re sult Performing Organization Address [facility] Phone Number INTERFACE SYSTEM Refer to clinic/hospital department * MAGNESIUM LEVEL (10/23/2004 2:44 AM CDT) MAGNESIUM 1.8 1.5 - 2.5 mg/dL INTERFACE SYSTEM 10/23/2004 2:44 AM CDT Jono Scherer MD CHEMISTRY ORDERABLES Final Re sult Performing Organization Address [facility] Phone Number INTERFACE SYSTEM Refer to clinic/hospital department * (ABNORMAL) CK TOTAL, RELATIVE INDEX (10/23/2004 2:44 AM CDT) CARDIAC RELATIVE INDEX 9.4(H) <=4.0 INTERFACE SYSTEM CK 1,648(H) 10 - 170 U/L INTERFACE SYSTEM 10/23/2004 2:44 AM CDT Jono Scherer MD CHEMISTRY ORDERABLES Final Re sult Performing Organization Address [facility] Phone Number INTERFACE SYSTEM Refer [...] ORDERABLES Final Re sult Performing Organization Address [facility] Phone Number INTERFACE SYSTEM Refer [...] ORDERABLES Final R esult Performing Organization Address [facility] Phone Number INTERFACE SYSTEM Refer to clinic/hospital [...] ORDERABLES Final Re sult Performing Organization Address City/[facility]/ZIP Co de Phone Number INTERFACE SYSTEM Refer [...] ORDERABLES Final Re sult Performing Organization Address [place]/[facility] de Phone Number INTERFACE SYSTEM Refer [...] ORDERABLES Final Re sult Performing Organization Address [facility] de Phone Number INTERFACE SYSTEM Refer to clinic/hospital department documented in this encounter Visit Diagnoses Diagnosis Acute myocardial infarction, true posterior wall infarction, initial episode of care- Primary documented in this encounter Care Teams Chemistry Lecturer Relationship Specialty Start Date End Date Rosanne Santana MD [address] [place] [address] [place] [address] PCP - General 10/24/03 documented as of this encounter
--- OUTSIDE RECORDS SUMMARY | 2025-01-17 23:38 | XMS_ITS | Encounter Summary ---
Author Organization [employer] Address [address] [place] [address] Care Team Providers Care Auto Design Checker Name Role Phone Rosanne Santana MD Primary Care Provider [phone] Encounter Details Date Type Department Care Team (Late st Contact Info) Description 10/23/[address] [facility] ([facility]) [address] 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 [place] [address] PCP - General 10/24/03 documented as of this encounter
--- OUTSIDE RECORDS SUMMARY | 2025-01-17 23:38 | XMS_ITS | Encounter Summary ---
Author Organization [facility] Address 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
--- OUTSIDE RECORDS SUMMARY | 2025-01-17 23:38 | XMS_ITS | Encounter Summary ---
Author Organization [employer] Address [address] [place] [address] Care Team Providers Care Marine Diesel Technician Name Role Phone Rosanne Santana MD Primary Care Provider [phone] Encounter Details Date Type Department Care Team (Latest Contact Info) Description 12/02/2001 Outpatient Historical HIS CARDIOPULMONARY Rosanne Santana MD 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 [address] [place] [address] PCP - General 10/24/03 documented as of this encounter
--- OUTSIDE RECORDS SUMMARY | 2025-01-17 23:38 | XMS_ITS | Clinical Summary ---
Author Organization [facility] [address] Address [address] [place] [address] Care Team Providers Care Percher Name Role Phone Nikky Reyes MD Primary Care Provider Venkat Vivar DO Unavailable [phone] Kwaku Martin MD Unavailable [phone] Richard Hargrove MD Unavailable [phone] Adelso Quiñones MD Unavailable [phone] Brenton Cabrera MD Unavailable [phone] Allergies No known active allergies Medications tamsulosin [...] requirements to drive in the states of [place] and [place] based on his visual field deficit. We [...] Description 01/10/2025 Orders Only [facility] [phone] Unknown, Notinfile 01/08/2025 Orders Only [facility] [phone] Unknown, Notinfile 01/06/2025 Orders Only [facility] [address] [place] [address] [address] [place] [phone] Brenton Cabrera MD 01/05/2025 [facility] [address] [place] [address] [address] [place] [phone] Dora Wheat CMA 12/27/2024 Orders Only [facility] [address] [place] [address] [phone] Leeann Fleming MD 12/15/2024 Results [facility] [address] [place] [address] [phone] Laura Arias, ODILON CT Chest Abdomen Pelvis W Contrast 12/13/2024 9:15 AM CDT Office Visit [facility] [address] [place] [address] [phone] Venkat Vivar DO Malignant neoplasm of urinary bladder, unspecified site (HCC) (Primary Dx) 12/13/2024 8:45 AM CDT Lab [facility] at [address] [address] Malignant neoplasm of urinary bladder, unspecified site (HCC) 12/06/2024 12:30 PM CDT - 12/06/2024 11:59 PM CDT Hospital Encounter [facility] Medical Office Building [address] [place] [address] Malignant neoplasm of urinary bladder, unspecified site (HCC) Discharge Disposition: Discharge to home or self care 11/26/2024 10:30 AM CDT Imaging [facility] [address] [place] [address] [phone] 11/26/2024 9:50 AM CDT Imaging Exam [facility]hthalmology [address] [place] [address] [phone] Unspecified disorder of visual pathways 11/26/2024 9:00 AM CDT Imaging Exam [facility] [address] [place] [phone] Unspecified disorder of visual pathways 11/26/2024 8:00 AM CDT Office Visit [facility] [address] [place] [address] [phone] Moises Cast MD Encounter for observation for other suspected diseases and conditions ruled out (Primary Dx); Unspecified disorder of visual pathways; Homonymous hemianopia, left 11/26/[address] [facility]mology [address] [place] [address] [phone] Moises Cast MD Unspecified disorder of visual pathways (Primary Dx); Encounter for observation for other suspected diseases and conditions ruled out 11/18/[address] [facility] [address] [place] [address] [phone] Daysi Álvarez MD 11/16/[address] [facility] [address] [place] [address] [phone] Daysi Álvarez MD from Last 3 Months [...] file Legal Sex Male 2:03 AM CHIEF JAILER Gender Identity Not on file Sexual Orientation [...] 185.4 cm (6' 1) 02/25/2024 12:13 AM CHIEF JAILER Body Mass Index 26.47 02/25/2024 12:13 AM CHIEF JAILER Plan of Treatment Health Maintenance Due Date [...] CONTRAST EVALUATION Routine 12/06/2024 12:47 PM CDT CAN DOFFER LICENSE [employer] VISUAL FIELD - OU - [...] was last reviewed 2021. Testing performed by: [address] [address] Blood 01/10/2025 6:55 AM CDT 01/10/2025 9:00 AM CDT us Notinfile Unknown LAB BLOOD ORDERABLES Final Res ult JAIME PINEDA 6641 [facility] Department [place] [address] * (ABNORMAL) Differential, auto (01/10/2025 6:55 AM CDT) Neutrophil abs 4.98 1.50 - 6.50 K/cumm JAIME PINEDA Comment:Testing performed by : [address] [address] Imm gran abs 0.16(H) 0.00 - 0.10 K/cumm JAIME PINEDA Comment:Testing performed by : [address] [address] Lymphocyte abs 0.92 0.80 - 3.30 K/cumm JAIME PINEDA Comment:Testing performed by : [address] [address] Monocyte abs 0.83(H) 0.20 - 0.80 K/cumm [facility] Comment:Testing performed by : [address], [place]., [address] Eosinophil abs 0.08 0.00 - 0.50 K/cumm [facility] Comment:Testing performed by : [address], [place]., [address] Basophil abs 0.03 0.00 - 0.10 K/cumm [facility] Comment:Testing performed by : [address] [address] Neutrophil pct 71.2 % [facility] Comment: Interpretive Data Percent cell count reference ranges are not reported, since discordance with absolute values may lead to misinterpretation of CBC data. Current Interpretive Data was last revised on 2017. Testing performed by: [address] [address] Imm gran pct 2.3 % [facility] Comment: Interpretive Data Percent cell count reference ranges are not reported, since discordance with absolute values may lead to misinterpretation of CBC data. Current Interpretive Data was last revised on 2017. Testing performed by: [address] [address] Lymphocyte pct 13.1 % [facility] Comment: Interpretive Data Percent cell count reference ranges are not reported, since discordance with absolute values may lead to misinterpretation of CBC data. Current Interpretive Data was last revised on 2017. Testing performed by: [address] [address] Monocyte pct 11.9 % [facility] Comment: Interpretive Data Percent cell count reference ranges are not reported, since discordance with absolute values may lead to misinterpretation of CBC data. Current Interpretive Data was last revised on 2017. Testing performed by: [address] [address] Eosinophil pct 1.1 % [facility] Comment: Interpretive Data Percent cell count reference ranges are not reported, since discordance with absolute values may lead to misinterpretation of CBC data. Current Interpretive Data was last revised on 2017. Testing performed by: [address] [address] Basophil pct 0.4 % JAIME PINEDA Comment: Interpretive Data Percent cell count reference ranges are not reported, since discordance with absolute values may lead to misinterpretation of CBC data. Current Interpretive Data was last revised on 2017. Testing performed by: [address] [address] Blood 01/10/2025 6:55 AM CDT 01/10/2025 9:00 AM CDT us Notinfile Unknown LAB BLOOD ORDERABLES Final Res ult JAIME PINEDA 4500 [facility] Department [place] [address] * (ABNORMAL) CBC with auto differential (01/10/2025 6:55 AM CDT) WBC 7.00 3.80 - 9.90 K/cumm JAIME PINEDA Comment:Testing performed by : [address] [address] Hgb 11.7(L) 13.0 - 17.5 g/dL JAIME PINEDA Comment:Testing performed by : [address] [address] Hct 35.0(L) 38.9 - 50.3 % JAIME PINEDA Comment:Testing performed by : [address] [address] Plt 208 150 - 400 K/cumm JAIME PINEDA Comment:Testing performed by : [address] [address] MPV 9.8 9.1 - 12.3 fL JAIME PINEDA Comment:Testing performed by : [address] [address] RBC 3.65(L) 4.30 - 5.80 M/cumm JAIME PINEDA Comment:Testing performed by : [address] [address] MCV 95.9 81.3 - 96.4 fL JAIME PINEDA Comment:Testing performed by : [address] [address] MCH 32.1 27.1 - 33.3 pg JAIME PINEDA Comment:Testing performed by : [address] [address] MCHC 33.4 32.3 - 35.7 g/dL JAIME PINEDA Comment:Testing performed by : [address] [address] RDW CV 16.4(H) 11.1 - 14.9 % JAIME PINEDA Comment:Testing performed by : [address] [address] RDW SD 57.2(H) 35.7 - 48.1 fL JAIME PINEDA Comment:Testing performed by : [address] [address] NRBC abs 0.00 0.00 - 0.01 K/cumm JAIME PINEDA Comment:Testing performed by : [address] [address] Blood 01/10/2025 6:5 5 AM CDT 01/10/2025 9:00 AM CDT us Notinfile Unknown LAB BLOOD ORDERABLES Final Res ult JAIME PINEDA [facility] Department [place] [address] * (ABNORMAL) Comprehensive metabolic panel (01/10/2025 6:55 AM CDT) Sodium 136 135 - 145 mmol/L JAIME PINEDA Comment:Testing performed by : [address] [address] Potassium, pl 4.5 3.3 - 4.9 mmol/L JAIME PINEDA Comment:Testing performed by : [address] [address] Chloride 103 97 - 110 mmol/L JAIME PINEDA Comment:Testing performed by : [address] [address] CO2 22 22 - 32 mmol/L JAIME PINEDA Comment:Testing performed by : [address] [address] Anion gap 11 2 - 15 mmol/L [facility] Comment:Testing performed by : [address] [address] BUN 20 6 - 25 mg/dL JAIME Comment:Testing performed by : [address] [address] Creatinine 0.70(L) 0.80 - 1.30 mg/dL JAIME Comment:Testing performed by : [address] [address] Glucose 95 70 - 199 mg/dL [facility] Comment: Interpretive Data Fasting glucose >/= 126 [...] was last revised 2022. Testing performed by: [address] [address] Calcium 8.5 8.5 - 10.3 mg/dL [facility] Comment:Testing performed by : [address] [address] Bilirubin, total 0.6 0.1 - 1.2 mg/dL JAIME Comment:Testing performed by : [address] [address] Protein, pl 5.6(L) 6.5 - 8.5 g/dL [facility] Comment:Testing performed by : [address] [address] Albumin 3.2(L) 3.5 - 5.0 g/dL [facility] Comment:Testing performed by : [address] [address] Alk phos 80 40 - 130 Units/L JAIME Comment:Testing performed by : [address] [address] ALT 86(H) 7 - 55 Units/L JAIME Comment:Testing performed by : [address] [address] AST 40 10 - 50 Units/L JAIME Comment:Testing performed by : [address] [address] Blood 01/10/2025 6:55 AM CDT 01/10/2025 9:00 AM CDT us Notinfile Unknown LAB BLOOD ORDERABLES Final Res ult JAIME PINEDA 6689 [facility] Department [place] [address] * eGFR (01/08/2025 5:30 AM CDT) eGFR [...] was last reviewed 2021. Testing performed by: [address] [address] Blood 01/08/2025 5:30 AM CDT 01/08/2025 8:01 AM CDT us Notinfile Unknown LAB BLOOD ORDERABLES Final Res ult JAIME 6410 [facility] Department [place] [address] * (ABNORMAL) Differential, auto (01/08/2025 5:30 AM CDT) Neutrophil abs 10.35(H) 1.50 - 6.50 K/cumm JAIME Comment:Testing performed by : [address] [address] Imm gran abs 0.35(H) 0.00 - 0.10 K/cumm JAIME Comment:Testing performed by : [address] [address] Lymphocyte abs 0.50(L) 0.80 - 3.30 K/cumm JAIME Comment:Testing performed by : [address] [address] Monocyte abs 0.41 0.20 - 0.80 K/cumm JAIME Comment:Testing performed by : [address] [address] Eosinophil abs 0.09 0.00 - 0.50 K/cumm JAIME Comment:Testing performed by : [address] [address] Basophil abs 0.10 0.00 - 0.10 K/cumm JAIME Comment:Testing performed by : [address] [address] Neutrophil pct 87.7 % JAIME Comment: Interpretive Data Percent cell count reference ranges are not reported, since discordance with absolute values may lead to misinterpretation of CBC data. Current Interpretive Data was last revised on 2017. Testing performed by: [address] [address] Imm gran pct 3.0 % JAIME Comment: Interpretive Data Percent cell count reference ranges are not reported, since discordance with absolute values may lead to misinterpretation of CBC data. Current Interpretive Data was last revised on 2017. Testing performed by: [address] [address] Lymphocyte pct 4.2 % JAIME Comment: Interpretive Data Percent cell count reference ranges are not reported, since discordance with absolute values may lead to misinterpretation of CBC data. Current Interpretive Data was last revised on 2017. Testing performed by: [address] [address] Monocyte pct 3.5 % JAIME Comment: Interpretive Data Percent cell count reference ranges are not reported, since discordance with absolute values may lead to misinterpretation of CBC data. Current Interpretive Data was last revised on 2017. Testing performed by: [address] [address] Eosinophil pct 0.8 % JAIME Comment: Interpretive Data Percent cell count reference ranges are not reported, since discordance with absolute values may lead to misinterpretation of CBC data. Current Interpretive Data was last revised on 2017. Testing performed by: [address] [address] Basophil pct 0.8 % JAIEM Comment: Interpretive Data Percent cell count reference ranges are not reported, since discordance with absolute values may lead to misinterpretation of CBC data. Current Interpretive Data was last revised on 2017. Testing performed by: [address] [address] Blood 01/08/2025 5:30 AM CDT 01/08/2025 8:01 AM CDT us Notinfile Unknown LAB BLOOD ORDERABLES Final Res ult JAIME 6997 [facility] Department [place] [address] * (ABNORMAL) CBC with auto differential (01/08/2025 5:30 AM CDT) WBC 11.80(H) 3.80 - 9.90 K/cumm JAIME PINEDA Comment:Testing performed by : [address] [address] Hgb 11.9(L) 13.0 - 17.5 g/dL JAIME PINEDA Comment:Testing performed by : [address], [address] Hct 35.1(L) 38.9 - 50.3 % JAIME Comment:Testing performed by : [address] [address] Plt 209 150 - 400 K/cumm JAIME Comment:Testing performed by : [address] [address] MPV 9.6 9.1 - 12.3 fL JAIME Comment:Testing performed by : [address] [address] RBC 3.72(L) 4.30 - 5.80 M/cumm JAIME Comment:Testing performed by : [address], [address] MCV 94.4 81.3 - 96.4 fL JAIME Comment:Testing performed by : [address] [address] MCH 32.0 27.1 - 33.3 pg JAIME Comment:Testing performed by : [address] [address] MCHC 33.9 32.3 - 35.7 g/dL JAIME Comment:Testing performed by : [address] [address] RDW CV 15.9(H) 11.1 - 14.9 % JAIME Comment:Testing performed by : [address], [address] RDW SD 53.8(H) 35.7 - 48.1 fL JAIME Comment:Testing performed by : [address], [address] NRBC abs 0.00 0.00 - 0.01 K/cumm JAIME Comment:Testing performed by : [address], [address] Blood 01/08/2025 5:30 AM CDT 01/08/2025 8:01 AM CDT us Notinfile Unknown LAB BLOOD ORDERABLES Final Res ult Performing Organization Address City/[facility]/ZIP Co de Phone Number [address] [address] * (ABNORMAL) Vitamin D 25 hydroxy (01/08/2025 5:30 AM CDT) Vitamin D 25-OH 25.0(L) 30.0 - 80.0 ng/mL JAIME Blood 01/08/2025 5:30 AM CDT 01/08/2025 10:08 AM CDT us Notinfile Unknown LAB BLOOD ORDERABLES Final Res ult Performing Organization Address [facility] Co de Phone Number [address] [place] [address] * Prealbumin (01/08/2025 5:30 AM CDT) Pathologist [facility] Prealbumin 22.5 20.0 - 40.0 mg/dL JAIME Blood 01/08/2025 5:30 AM CDT 01/08/2025 10:08 AM CDT us Notinfile Unknown LAB BLOOD ORDERABLES Final Res ult Performing Organization Address [facility] Co de Phone Number [address] [place] [address] * Phosphorus (01/08/2025 5:30 AM CDT) Pathologist [facility] Phosphorus, pl 3.8 2.3 - 4.5 mg/dL [facility] Comment:Testing performed by : [facility], [address] [place] [address]., [address] Blood 01/08/2025 5:30 AM CDT 01/08/2025 8:01 AM CDT Notinfile Unknown LAB BLOOD ORDERABLES Final Res ult [address] [place] [address] * Magnesium (01/08/2025 5:30 AM CDT) Pathologist [facility] Magnesium 2.3 1.4 - 2.5 mg/dL JAIME Comment:Testing performed by : [address] [address] Blood 01/08/2025 5:30 AM CDT 01/08/2025 8:01 AM CDT us Notinfile Unknown LAB BLOOD ORDERABLES Final Res ult [address] [address] * Vitamin B12 (01/08/2025 5:30 AM CDT) [facility] Vitamin B12 676 230 - 1,250 pg/mL JAIME Comment:Testing performed by : [address] [address] Blood 01/08/2025 5:30 AM CDT 01/08/2025 8:01 AM CDT us Notinfile Unknown LAB BLOOD ORDERABLES Final Res ult Performing Organization Address City/[facility]/ZIP Co de Phone Number [address] [address] * (ABNORMAL) Basic metabolic panel (01/08/2025 5:30 AM CDT) [facility] Sodium 135 135 - 145 mmol/L JAIME Comment:Testing performed by : [address] [address] Potassium, pl 5.0(H) 3.3 - 4.9 mmol/L JAIME Comment:Testing performed by : [address] [address] Chloride 103 97 - 110 mmol/L JAIME Comment:Testing performed by : [address] [address] CO2 24 22 - 32 mmol/L JAIME Comment:Testing performed by : [address] [address] Anion gap 8 2 - 15 mmol/L JAIME Comment:Testing performed by : [address] [address] BUN 16 6 - 25 mg/dL JAIME Comment:Testing performed by : [address] [address] Creatinine 0.64(L) 0.80 - 1.30 mg/dL JAIME Comment:Testing performed by : [address] [address] Glucose 170 70 - 199 mg/dL JAIME [...] was last revised 2022. Testing performed by: [address] [address] Calcium 9.0 8.5 - 10.3 mg/dL JAIME Comment:Testing performed by : [address] [address] Blood 01/08/2025 5:30 AM CDT 01/08/2025 8:01 AM CDT us Notinfile Unknown LAB BLOOD ORDERABLES Final Res ult JAIME 0744 [facility] Department of Laboratories [place], [place] [id number] * Pathology report (01/06/2025 9:37 AM CDT) [...] was last reviewed 2021. Testing performed by: [facility], [address] [place] [address]., [address] Blood 12/13/2024 8:43 AM CDT 12/13/2024 8:45 AM CDT Venkat Vivar DO LAB BLOOD ORDERABLES Final R esult JAIME 2697 [facility] Department [place] [address] * (ABNORMAL) Differential, auto (12/13/2024 8:43 AM CDT) Neutrophil abs 3.15 1.50 - 6.50 K/cumm Comment:Testing performed by : [address] [address] Imm gran abs 0.02 0.00 - 0.10 K/cumm [facility] Comment:Testing performed by : [address] [address] Lymphocyte abs 0.78(L) 0.80 - 3.30 K/cumm [facility] Comment:Testing performed by : [address] [address] Monocyte abs 0.58 0.20 - 0.80 K/cumm [facility] Comment:Testing performed by : [address] [address] Eosinophil abs 0.13 0.00 - 0.50 K/cumm [facility] Comment:Testing performed by : [address] [address] Basophil abs 0.02 0.00 - 0.10 K/cumm [facility] Comment:Testing performed by : [address] [address] Neutrophil pct 67.3 % [facility] Comment: Interpretive Data Percent cell count reference ranges are not reported, since discordance with absolute values may lead to misinterpretation of CBC data. Current Interpretive Data was last revised on 2017. Testing performed by: [address] [address] Imm gran pct 0.4 % [facility] Comment: Interpretive Data Percent cell count reference ranges are not reported, since discordance with absolute values may lead to misinterpretation of CBC data. Current Interpretive Data was last revised on 2017. Testing performed by: [address] [address] Lymphocyte pct 16.7 % [facility] Comment: Interpretive Data Percent cell count reference ranges are not reported, since discordance with absolute values may lead to misinterpretation of CBC data. Current Interpretive Data was last revised on 2017. Testing performed by: [address] [address] Monocyte pct 12.4 % JAIME Comment: Interpretive Data Percent cell count reference ranges are not reported, since discordance with absolute values may lead to misinterpretation of CBC data. Current Interpretive Data was last revised on 2017. Testing performed by: [address] [address] Eosinophil pct 2.8 % JAIME Comment: Interpretive Data Percent cell count reference ranges are not reported, since discordance with absolute values may lead to misinterpretation of CBC data. Current Interpretive Data was last revised on 2017. Testing performed by: [address] [address] Basophil pct 0.4 % JAIME Comment: Interpretive Data Percent cell count reference ranges are not reported, since discordance with absolute values may lead to misinterpretation of CBC data. Current Interpretive Data was last revised on 2017. Testing performed by: [address] [address] Blood 12/13/2024 8:43 AM CDT 12/13/2024 8:45 AM CDT Venkat Vivar DO LAB BLOOD ORDERABLES Final R esult [facility] 2651 [facility] Department [place] [address] * (ABNORMAL) CBC with auto differential (12/13/2024 8:43 AM CDT) WBC 4.68 3.80 - 9.90 K/cumm Comment:Testing performed by : [address] [address] Hgb 12.9(L) 13.0 - 17.5 g/dL JAIME Comment:Testing performed by : [address] [address] Hct 37.9(L) 38.9 - 50.3 % JAIME Comment:Testing performed by : [address] [place] [address] Plt 178 150 - 400 K/cumm JAIME Comment:Testing performed by : [address] [address] MPV 9.6 9.1 - 12.3 fL JAIME Comment:Testing performed by : [address] [address] RBC 4.04(L) 4.30 - 5.80 M/cumm JAIME Comment:Testing performed by : [address] [address] MCV 93.8 81.3 - 96.4 fL JAIME Comment:Testing performed by : [address] [address] MCH 31.9 27.1 - 33.3 pg JAIME Comment:Testing performed by : [address] [address] MCHC 34.0 32.3 - 35.7 g/dL JAIME Comment:Testing performed by : [address] [address] RDW CV 15.0(H) 11.1 - 14.9 % JAIME Comment:Testing performed by : [address] [address] RDW SD 51.6(H) 35.7 - 48.1 fL JAIME Comment:Testing performed by : [address] [address] NRBC abs 0.00 0.00 - 0.01 K/cumm JAIME Comment:Testing performed by : [address] [address] ANC Prelim 3.15 1.50 - 6.50 K/cumm JAIME Comment: Interpretive Data The rapid ANC is a preliminary automated count and may vary from the final ANC (Neut Abs) reported in the WBC differential that follows. Current interpretive data was last revised 2024. Testing performed by: [address], [address] Blood 12/13/2024 8:43 AM CDT 12/13/2024 8:45 AM CDT us Venkat Vivar DO LAB BLOOD ORDERABLES Final R esult JAIME PINEDA 5120 [facility] Department [place] [address] * Comprehensive metabolic panel (12/13/2024 8:43 AM CDT) Sodium 140 135 - 145 mmol/L Comment:Testing performed by : [address] [address] Potassium, pl 4.3 3.3 - 4.9 mmol/L JAIME Comment:Testing performed by : [address] [address] Chloride 106 97 - 110 mmol/L JAIME Comment:Testing performed by : [address] [address] CO2 25 22 - 32 mmol/L JAIME Comment:Testing performed by : [address] [address] Anion gap 9 2 - 15 mmol/L JAIME Comment:Testing performed by : [address] [address] BUN 10 6 - 25 mg/dL JAIME Comment:Testing performed by : [address] [address] Creatinine 1.00 0.80 - 1.30 mg/dL JAIME Comment:Testing performed by : [address] [address] Glucose 115 70 - 199 mg/dL JAIME [...] was last revised 2022. Testing performed by: [facility], [address] [place] [address]., [address] Calcium 9.0 8.5 - 10.3 mg/dL JAIME Comment:Testing performed by : [address] [address] Bilirubin, total 0.6 0.1 - 1.2 mg/dL JAIME Comment:Testing performed by : [address] [address] Protein, pl 7.1 6.5 - 8.5 g/dL JAIME Comment:Testing performed by : [address] [address] Albumin 4.0 3.5 - 5.0 g/dL JAIME Comment:Testing performed by : [address] [address] Alk phos 75 40 - 130 Units/L JAIME Comment:Testing performed by : [address] [address] ALT 17 7 - 55 Units/L JAIME Comment:Testing performed by : [address] [address] [address] AST 16 10 - 50 Units/L JAIME Comment:Testing performed by : [address] [address] Blood 12/13/2024 8:43 AM CDT 12/13/2024 8:45 AM CDT Venkat Vivar DO LAB BLOOD ORDERABLES Final R esult [facility] Department [place] [address] * CT Chest Abdomen Pelvis W Contrast (12/06/2024 12:50 PM CDT) Anatomical Region Laterality Modality Body N/A Computed Tomogra phy 12/13/2024 1:00 PM CDT Narrative 12/13/2024 1:52 PM CDT EXAM DESCRIPTION: CT CHEST ABDOMEN PELVIS W CONTRAST REASON FOR STUDY: Bladder cancer, invasive, assess treatment response 3 month bladder cancer f/u. No complaints. Hx of heart stents, kihsa, bladder surgery. TECHNIQUE: CT scan of the [...] Ian Proctor M.D. JA: ERICA Report ID: [id number] Reading Location: [id number] Procedure Note Ian Proctor MD - 12/13/2024 [...] Ian Proctor M.D. JA: ERICA Report ID: [id number] Reading Location: [id number] Venkat Vivar DO IMG CT PROCEDURES Final Resu lt * POCT creatinine for contrast evaluation (12/06/2024 12:47 PM CDT) Creatinine POC 1.20 0.80 - 1.30 mg/dL Comment:Testing performed by : [facility], [address] [place] [address]., [address] Blood 12/06/2024 12:4 7 PM CDT 12/06/2024 12:47 PM CDT Venkat Vivar DO POINT OF CARE TEST ORDERABLE S Final Result [facility] Department [place] [address] * Residential Sales Representative License [place]mann Visual Field - OU - Both Eyes (11/26/2024 10:32 AM CDT) Anatomical Region Laterality Modality Head Visual Field Narrative 11/26/2024 2:03 PM CDT About 110 contiguous horizontal visual field OU. 55 of temporal field OU. us Moises Cast MD OPHTH VISUAL FIELD F inal Result * Chna Visual Field - OU - Both Eyes [...] Both Eyes (11/26/2024 9:48 AM CDT) Pathologist [facility] Macular Thickness OS 261 mircometers CONTINUUM [...] Months Insurance MEDICARE [employer] SENIOR SUPPLEMENT MEDICARE [facility] MEDICARE SUPPLEMENT MEDICARE [facility] MEDICARE SUPPLEMENT Care Teams Percher Relationship Specialty Start Date End Date Nikky Reyes MD [address] [place] [address] 2 [place] [address] PCP - General Family Practice 12/15/23 Venkat Vivar DO [address] [place] [address] MEDICAL ONCOLOGY, [facility] [address] [place] [address] Medical Oncologist/Hematologis t Hematology and Oncology 12/15/23 Kwaku Martin MD 1418 [facility]ICAL ONCOL[facility], [facility] [address] [place] [address] Consulting Physician Urology 12/15/23 Richard Hargrove MD [address] [facility] [address] [place] [address] Radiation Oncologist Radiation Oncology 01/08/24 Adelso Quiñ[place] [address] [address] Surgeon Urology 01/22/24 Brenton Cabrera MD [address] [place] [address] [address] [place] [address] Referring Physician Neurosurgery 11/26/24
--- OUTSIDE RECORDS SUMMARY | 2025-01-17 23:38 | XMS_ITS | Encounter Summary ---
Author Organization [employer] Address [address] [place] [address] Care Team Providers Care Pipe Stripper Name Role Phone Rosanne Santana MD Primary Care Provider [phone] Encounter Details Date Type Department Care Team (Late st Contact Info) Description 06/25/2007 Inpatient Historical HIS [place] [address] [facility] [address] [place] [address] Jono Scherer MD [address] [facility] [address] [place] [address] Unspecified Chest Pain Social History Tobacco Use Types Packs/Day Years Used Date Smoking Tobacco: Never Assessed Sex and Gender Information Value Date Recorded Sex Assigned at Not on file 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 #: [id number] POC: Attending MD: Romel Performing MD: Romel [...] 09:06:43 Procedure Note Provider, Historical - 07/01/2007 [place] [address] [place] [address] [email or web address] Cardiac Catheterization Comprehensive Report Patient: Mitchell Rodriguez Study ID: [id number] Gender: M : 1950 Age: 57 years Race: 1 Room: Bed: Height: 73 in ( 185.4 cm ) Study Date: June 25, 2007 Patient status: Inpatient Weight: 183.9 lb ( 83.6 kg ) Access. #: [id number] POC: Attending MD: Romel Lozada MD: Romel [...] FLUOROSCOPY ORDERABLES Final Result Performing Organization Address City/[facility]/ZIP Co de Phone Number INTERFACE SYSTEM Refer to clinic/hospital department * CKMB W/REFLEX CK (06/26/2007 4:50 AM CDT) CKMB 3.0 <=6.7 ng/mL [facility] CKMB INTERP Negative [facility] Blood specimen (specimen) 06/26/2007 4:50 AM CDT 06/26/2007 4:59 AM CDT Jono Scherer MD CHEMISTRY ORDERABLES Edited Performing Organization Address [facility]/ZIP Co de Phone Number [facility] [address] [place] [address] * (ABNORMAL) CBC WITH DIFFERENTIAL (06/26/2007 4:50 AM CDT) WBC 6.5 4.0 - 9.8 K/uL [facility] MCH 31.8 27.2 - 32.[address] [facility] MPV 9.9 9.3 - 12.[address] [facility] HEMATOCRIT 40.2 40.0 - 48.0 % [facility] RDW-STDEV 44.4 37.1 - 48.[address] [facility] RBC 4.31(L) 4.50 - 5.40 M/uL [facility] MCHC 34.1 31.5 - 35.5 % [facility] MCV 93.3 82.0 - 99.[address] [facility] PLATELETS 146 140 - 350 K/uL [facility] HEMOGLOBIN 13.7 13.6 - 16.5 g/dL [facility] RDW 13.1 11.5 - 14.5 % [facility] BASOPHILS 0 0 - 2 % [facility] BASOPHILS ABSOLUTE 0.02 0.00 - 0.20 K/uL [facility] MONOCYTES 13 3 - 13 % [facility] MONOCYTE ABSOLUTE 0.83 0.10 - 1.30 K/uL [facility] NEUTROPHILS 66 45 - 70 % [facility] NEUTROPHIL ABSOLUTE 4.29 1.90 - 7.00 K/uL [facility] EOSINOPHILS 3 0 - 7 % [facility] EOSINOPHIL ABSOLUTE 0.16 0.00 - 0.70 K/uL [facility] LYMPHOCYTES 18 16 - 45 % [facility] LYMPHOCYTE ABSOLUTE 1.19 0.70 - 4.50 K/uL [facility] Blood specimen (specimen) 06/26/2007 4:50 AM CDT 06/26/2007 4:59 AM CDT Jono Scherer MD HEMATOLOGY ORDERABLES Edited Performing Organization Address [facility] Phone Number INTERFACE SYSTEM Refer to clinic/hospital department [facility] [address] [place] [address] * (ABNORMAL) PHOSPHORUS (06/26/2007 4:50 AM CDT) PHOSPHORUS 2.2(L) 2.5 - 4.5 mg/dL [facility] Blood specimen (specimen) 06/26/2007 4:50 AM CDT 06/26/2007 4:59 AM CDT Jono Scherer MD CHEMISTRY ORDERABLES Final Re sult Performing Organization Address [facility] de Phone Number [facility] [address] [place] [address] * MAGNESIUM LEVEL (06/26/2007 4:50 AM CDT) MAGNESIUM 2.2 1.5 - 2.5 mg/dL [facility] Blood specimen (specimen) 06/26/2007 4:50 AM CDT 06/26/2007 4:59 AM CDT Jono Scherer MD CHEMISTRY ORDERABLES Final Re sult Performing Organization Address [facility] de Phone Number [facility] [address] [place] [address] * (ABNORMAL) BASIC METABOLIC PANEL (06/26/2007 4:50 AM CDT) BUN 15 6 - 20 mg/dL [facility] CHLORIDE 103 96 - 108 mmol/L [facility] GLUCOSE 97 65 - 99 mg/dL [facility] SODIUM 135 135 - 145 mmol/L [facility] CALCIUM 8.3(L) 8.4 - 10.2 mg/dL [facility] CO2 26 22 - 30 mmol/L [facility] CREATININE 0.78 0.67 - 1.17 mg/dL [facility] POTASSIUM 3.7 3.5 - 4.9 mmol/L [facility] GFR, >60 >=60 mL/min/1. [address] [facility] GFR >60 >=60 mL/min/1. [address] [facility] Comment: Estimated GFR rate interpretative information for both Americans and non- Americans is available on the [facility] Intranet at: [email or web address] Select: Lab Policies and Procedures Select: Reference Ranges - GFR Blood specimen (specimen) 06/26/2007 4:50 AM CDT 06/26/2007 4:59 AM CDT Jono Scherer MD CHEMISTRY ORDERABLES Edited [facility] [address] [place] [address] * (ABNORMAL) TROPONIN (W/REFLEX CKMB/CK) (06/26/2007 4:50 AM CDT) TROPONIN T 0.06(AA) <=0.03 ng/mL [facility] Comment: Persistent abnormal result TROPONIN T INTERP See Below [facility] Comment: Elevated Troponin-T,Consistent with Myocardial Injury Blood specimen (specimen) 06/26/2007 4:50 AM CDT 06/26/2007 4:59 AM CDT Jono Scherer MD CHEMISTRY ORDERABLES Edited [facility] [address] [place] [address] * CKMB W/REFLEX CK (06/25/2007 8:18 PM CDT) CKMB 5.8 <=6.7 ng/mL [facility] CKMB INTERP Negative [facility] Blood specimen (specimen) 06/25/2007 8:18 PM CDT 06/25/2007 8:23 PM CDT Jono Scherer MD CHEMISTRY ORDERABLES Edited Performing Organization Address [facility] Co de Phone Number [facility] [address] [place] [address] * (ABNORMAL) TROPONIN (W/REFLEX CKMB/CK) (06/25/2007 8:18 PM CDT) [facility] TROPONIN T 0.05(AA) <=0.03 ng/mL [facility] Comment: Results called to Lynne at 06/25/07 9:43 PM and read back verified. TROPONIN T INTERP See Below [facility] Comment: Elevated Troponin-T,Consistent with Myocardial Injury Blood specimen (specimen) 06/25/2007 8:18 PM CDT 06/25/2007 8:23 PM CDT Jono Scherer MD CHEMISTRY ORDERABLES Edited Performing Organization Address City/[facility]/ZIP Co de Phone Number [facility] [address] [place] [address] * (ABNORMAL) BASIC METABOLIC PANEL (06/25/2007 1:44 PM CDT) Pathologist [facility] GLUCOSE 94 65 - 99 mg/dL [facility] SODIUM 138 135 - 145 mmol/L [facility] CALCIUM 8.1(L) 8.4 - 10.2 mg/dL [facility] CO2 24 22 - 30 mmol/L [facility] CREATININE 0.76 0.67 - 1.17 mg/dL [facility] POTASSIUM 3.8 3.5 - 4.9 mmol/L [facility] BUN 11 6 - 20 mg/dL [facility] CHLORIDE 105 96 - 108 mmol/L [facility] GFR, >60 >=60 mL/min/1. [address] [facility] GFR >60 >=60 mL/min/1. [address] [facility] Comment: Estimated GFR rate interpretative information for both Americans and non- Americans is available on the [facility] Intranet at: [email or web address] Select: Lab Policies and Procedures Select: Reference Ranges - GFR Blood specimen (specimen) 06/25/2007 1:44 PM CDT 06/25/2007 1:55 PM CDT us Alena Guardado MD CHEMISTRY ORDERABLES Edited [facility] [address] [place] [address] * XR CHEST PA OR AP (06/25/2007 12:20 PM CDT) Anatomical Region Laterality Modality Chest Other 06/25/2007 12:2 0 PM CDT Narrative 06/25/2007 12:50 PM CDT [facility] [address] [place], [place] [address] Admit Date: 06/25/2007 MITCHELL RODRIGUEZ Sex: M Admit Prov: PAU DE LA CRUZ J Date: 1950 Primary Care Prov: CMRN: [id number] Room: [address] [place] [address] SSN: [id number] IMAGING SERVICES Ordering Prov: N/A Accession Number: [id number] Interpretation Chest single view 06/25/2007 History: Chest pain Findings: The right costophrenic angle is cut off the film. No infiltrate, pneumothorax or pleural effusion is seen. The cardiac silhouette appears prominent. . Dictated by: NIYAH HULL 06/25/2007 12:49 Electronically signed by: NIYAH HULL 06/25/2007 12:50 Procedure Note Niyah Hull - 06/25/2007 [facility] [address] [place], [place] [address] Admit Date: 06/25/2007 MICHAELMITCHELL VEE Sex: M Admit Prov: PAU DE LA CRUZ Date: 1950 Primary Care Prov: CMRN: [id number] Room: [address] [place] [address] SSN: [id number] IMAGING SERVICES Ordering Prov: N/A Interpretation Chest [...] PM CDT) TROPONIN T <0.01 <=0.03 ng/mL [facility] TROPONIN T INTERP Negative [facility] Blood specimen (specimen) 06/25/2007 12:00 PM CDT 06/25/2007 12:12 PM CDT Jono Scherer MD CHEMISTRY ORDERABLES Edited [facility] [address] [place] [address] * (ABNORMAL) PTT (06/25/2007 12:00 PM CDT) PTT 79.1(H) 24.4 - 36.[address] [facility] Comment: PTT Therapeutic Range: Heparin Level PTT (seconds) <0.10 units/mL <53 0.10 - 0.30 units/mL 53 - 67 0.30 - 0.70 units/mL* 67 - 95* 0.70 - 1.00 units/mL 95 - 116 *corresponds to therapeutic range for unfractionated heparin Blood specimen (specimen) 06/25/2007 12:00 PM CDT 06/25/2007 12:12 PM CDT Jono Scherer MD HEMATOLOGY ORDERABLES Final R esult Performing Organization Address City/[facility] Co de Phone Number [facility] [address] [place] [address] * (ABNORMAL) PROTIME-INR (06/25/2007 12:00 PM CDT) PROTIME 22.6(H) 12.7 - 15.[address] [facility] INR 2.0(H) 0.9 - 1.1 [facility] Comment: INR Therapeutic Range: Adult: 2.0 - 3.0 for pulmonary embolism or prophylaxis against venous thrombosis or systemic embolization. 2.0 - 3.0 for patients with tissue heart valves. 2.5 - 3.5 for patients with mechanical heart valves or post [place]. Pediatric (12 years and under): 1.5 - [...] Scherer MD HEMATOLOGY ORDERABLES Final R esult [facility] [address] [place], [place] [address] * (ABNORMAL) CBC WITH DIFFERENTIAL (06/25/2007 12:00 PM CDT) MCV 93.4 82.0 - 99.[address] [facility] PLATELETS 156 140 - 350 K/uL [facility] HEMOGLOBIN 14.0 13.6 - 16.5 g/dL [facility] RDW 13.2 11.5 - 14.5 % [facility] WBC 6.3 4.0 - 9.8 K/uL [facility] MCH 32.0 27.2 - 32.[address] [facility] MPV 10.0 9.3 - 12.[address] [facility] HEMATOCRIT 40.8 40.0 - 48.0 % [facility] RDW-STDEV 44.9 37.1 - 48.[address] [facility] RBC 4.37(L) 4.50 - 5.40 M/uL [facility] MCHC 34.3 31.5 - 35.5 % [facility] BASOPHILS 0 0 - 2 % [facility] BASOPHILS ABSOLUTE 0.01 0.00 - 0.20 K/uL [facility] MONOCYTES 10 3 - 13 % [facility] MONOCYTE ABSOLUTE 0.64 0.10 - 1.30 K/uL [facility] NEUTROPHILS 69 45 - 70 % [facility] NEUTROPHIL ABSOLUTE 4.33 1.90 - 7.00 K/uL [facility] EOSINOPHILS 2 0 - 7 % [facility] EOSINOPHIL ABSOLUTE 0.10 0.00 - 0.70 K/uL [facility] LYMPHOCYTES 19 16 - 45 % [facility] LYMPHOCYTE ABSOLUTE 1.17 0.70 - 4.50 K/uL [facility] Blood specimen (specimen) 06/25/2007 12:00 PM CDT 06/25/2007 12:12 PM CDT us Jono Scherer MD HEMATOLOGY ORDERABLES Edited Performing Organization Address City/[facility]/ZIP Co de Phone Number INTERFACE SYSTEM Refer to clinic/hospital department [facility] [address] [place] [address] * POC ACTIVATED CLOTTING TIME (06/25/2007 10:51 AM CDT) ACT POC [address] [facility] Comment: Note sheath pull range change effective 09/20/2005. ACT value for sheath pull at [facility] has been established to be < or = to 140. (See also Nursing Procedures for sheath pull in related nursing areas) Blood specimen (specimen) 06/25/2007 10:51 AM CDT 06/25/2007 10:51 AM CDT us Pau De La Cruz MD POINT OF CARE TESTING Final Re sult Performing Organization Address [facility] de Phone Number [facility] [address] [place] [address] documented in this encounter Visit Diagnoses Diagnosis Chest pain, unspecified documented in this encounter Care Teams Pipe Stripper Relationship Specialty Start Date End Date Rosanne Snatana MD [address] [place] [address] [place] [address] PCP - General 10/24/03 documented as of this encounter
--- OUTSIDE RECORDS SUMMARY | 2025-01-17 23:38 | XMS_ITS | Encounter Summary ---
Author Organization [employer] Address [address] [place] [address] Care Team Providers Care Mathematics Department Chair Name Role Phone Rosanne Santana MD Primary Care Provider [phone] Encounter Details Date Type Department Care Team (Latest Contact Info) Description 02/13/2006 Outpatient Historical HIS NUCLEAR MEDICINE HEART HOSP Rosanne Santana MD [address] [place] [address] Cor Athrscl-Uns Vessel (Primary Dx) Social History Tobacco Use Types Packs/Day Years Used Date Smoking Tobacco: Never Assessed Sex and Gender Information Value Date Recorded Sex Assigned at Not on file 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
--- OUTSIDE RECORDS SUMMARY | 2025-01-17 23:38 | XMS_ITS | Encounter Summary ---
Author Organization [facility] Address [address] [place] [address] Care Team Providers Care Front End Alignment Specialist Name Role Phone Rosanne Santana MD Primary Care Provider [phone] Encounter Details Date Type Department Care Team (Latest Contact Info) Description 09/24/2007 Outpatient Historical HIS NUCLEAR MEDICINE HEART HOSP Rosanne Santana MD [address] [place] [address] Coronary Atherosclerosis of [place] Coronary Artery Social History Tobacco Use Types Packs/Day Years Used Date Smoking Tobacco: Never Assessed Sex and Gender Information Value Date Recorded Sex Assigned at Not on file 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 [place], [place] [address] Admit Date: 09/24/2007 MITCHELL RODRIGUEZ Sex: M Admit Prov: ROSANNE SANTANA Date: 1950 Primary Care Prov: CMRN: [id number] Room: [facility] SSN: [id number] IMAGING SERVICES Ordering Prov: N/A Interpretation Date [...] encounter Visit Diagnoses Diagnosis Coronary atherosclerosis of [place] coronary artery documented in this encounter Care Teams Front End Alignment Specialist Relationship Specialty Start Date End Date Rosanne Santana MD [address] [place] [address] PCP - General 10/24/03 documented as of this encounter
--- OUTSIDE RECORDS SUMMARY | 2025-01-17 23:38 | XMS_ITS | Encounter Summary ---
Author Organization [employer] Address 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 Rosanne Santana MD [address] [facility] [address] [place] [address] CORON ATHEROSCL [place] CORON VESSEL (Primary Dx) Social History Tobacco Use Types Packs/Day Years Used Date Smoking Tobacco: Never Assessed Sex and Gender Information Value Date Recorded Sex Assigned at Not on file 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
--- OUTSIDE RECORDS SUMMARY | 2025-01-17 23:38 | XMS_ITS | Encounter Summary ---
Author Organization [facility] Address [address] [place] [address] Care Team Providers Care Photography Coordinator Name Role Phone Rosanne Santana MD Primary Care Provider [phone] Encounter Details Date Type Department Care Team (Latest Contact Info) Description 05/21/2006 Outpatient Historical HIS [facility] Rosanne Sanchez MD [address] [place] [address] Coronary Atherosclerosis of Circle Coronary Artery (Primary Dx) Social History Tobacco Use Types Packs/Day Years Used Date Smoking Tobacco: Never Assessed Sex and Gender Information Value Date Recorded Sex Assigned at Not on file Legal 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 Male 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 Gender Identity Not on file Sexual Orientation Not on file documented as of this encounter Plan of Treatment Not on file documented as of this encounter Procedures Procedure Name Priority Date/Time Associated Diagnosis Comments CBC WITH DIFFERENTIAL Routine 05/21/2006 7:05 AM 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 CBC WITH DIFFERENTIAL Routine 05/21/2006 7:05 AM 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 PTT Routine 05/21/2006 7:05 AM 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 PROTIME-INR Routine 05/21/2006 7:05 AM 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 BASIC METABOLIC PANEL Routine 05/21/2006 7:05 AM 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 documented in this encounter Results * CBC WITH DIFFERENTIAL (05/21/2006 7:05 AM 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) NEUTROPHILS 61 45 - 70 % INTERFAC [...] 0.20 K/uL INTERFACE SYSTEM 05/21/2006 7:05 AM 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 Rosanne Santana MD HEMATOLOGY ORDERABLES Edited Performing Organization Address City/[facility] Co de Phone Number INTERFACE SYSTEM Refer to clinic/hospital department * CBC WITH DIFFERENTIAL (05/21/2006 7:05 AM 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) WBC 5.9 4.0 - 9.8 K/uL INTERFACE [...] 12.4 fL INTERFACE SYSTEM 05/21/2006 7:05 AM 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 us Rosanne Santana MD HEMATOLOGY ORDERABLES Edited Performing Organization Address City/State/[facility] Co de Phone Number INTERFACE SYSTEM Refer to clinic/hospital department * PTT (05/21/2006 7:05 AM 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) PTT 28.0 24.4 - 36.4 Seconds INTERFACE SYSTEM Comment: PTT Therapeutic Range: Heparin Level PTT (seconds) <0.10 units/mL <53 0.10 - 0.30 units/mL 53 - 67 0.30 - 0.70 units/mL* 67 - 95* 0.70 - 1.00 units/mL 95 - 116 *corresponds to therapeutic range for unfractionated heparin 05/21/2006 7:05 AM 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 Rosanne Santana MD HEMATOLOGY ORDERABLES Edited Performing Organization Address [facility] Phone Number INTERFACE SYSTEM Refer to clinic/hospital department * PROTIME-INR (05/21/2006 7:05 AM 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) PROTIME 14.1 12.7 - 15.1 Seconds INTERFACE SYSTEM INR 1.1 0.9 - 1.1 INTERFACE SYSTEM Comment: INR Therapeutic Range: Adult: 2.0 - 3.0 for pulmonary embolism or prophylaxis against venous thrombosis or systemic embolization. 2.0 - 3.0 for patients with tissue heart valves. 2.5 - 3.5 for patients with mechanical heart valves or post MN. Pediatric (12 years and under): 1.5 - 3.0 Although the target range in children is not well established , INR values of 1.5 - 3.0 are recommended for most patients. Higher values have been used in children with prosthetic cardiac valves and hereditary clotting disorders. (<3 days) therapeutic ranges have not been established. 05/21/2006 7:05 AM 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 Rosanne Santana MD HEMATOLOGY ORDERABLES Edited Performing Organization Address [facility] de Phone Number INTERFACE SYSTEM Refer to clinic/hospital department * (ABNORMAL) BASIC METABOLIC PANEL (05/21/2006 7:05 AM 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) GLUCOSE 104(H) 65 - 99 mg/dL INTERFACE [...] and non- Americans is available on the [facility] Intranet at: [email or web address] Select: Lab Policies and Procedures Select: Reference Ranges - GFR 05/21/2006 7:05 AM 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 us Rosanne Santana MD CHEMISTRY ORDERABLES Edited INTERFACE SYSTEM Refer to clinic/hospital department documented in this encounter Visit Diagnoses Diagnosis Coronary atherosclerosis of [place] coronary artery- Primary documented in this encounter Care Teams Photography Coordinator Relationship Specialty Start Date End Date Rosanne Santana MD [address] [place] [address] PCP - General 10/24/03 documented as of this encounter
--- OUTSIDE RECORDS SUMMARY | 2025-01-17 23:38 | XMS_ITS | Encounter Summary ---
Author Organization [employer] Address [address] [place] [address] Care Team Providers Care Mail Handler Sorter Name Role Phone Rosanne Santana MD Primary Care Provider [phone] Encounter Details Date Type Department Care Team (Late st Contact Info) Description 12/02/2001 [facility] [address] 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
--- OUTSIDE RECORDS SUMMARY | 2025-01-17 23:38 | XMS_ITS | Encounter Summary ---
Author Organization [employer] Address 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 Jono Richards MD [address] [place] [address] Coronary Atherosclerosis of [place] Coronary Artery (Primary Dx) Social History Tobacco Use Types Packs/Day Years Used Date Smoking Tobacco: Never Assessed Sex and Gender Information Value Date Recorded Sex Assigned at Not on file 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
--- OUTSIDE RECORDS SUMMARY | 2025-01-17 23:38 | XMS_ITS | Encounter Summary ---
Author Organization [employer] Address [address] [place] [address] Care Team Providers Care Cutter Aluminum Sheet Name Role Phone Rosanne Santana MD Primary Care Provider [phone] Encounter Details Date Type Department Care Team (Late st Contact Info) Description 12/02/2001 [facility] [address] 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
--- OUTSIDE RECORDS SUMMARY | 2025-01-17 23:38 | XMS_ITS | Encounter Summary ---
Author Organization [employer] Address [address] [place] [address] Care Team Providers Care Budget Assistant Name Role Phone Rosanne Santana MD Primary Care Provider [phone] Encounter Details Date Type Department Care Team (Late st Contact Info) Description 11/08/[address] [facility] [facility] Support Serv. (Adt Cardiology-[facility]) [address] 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
--- OUTSIDE RECORDS SUMMARY | 2025-01-17 23:38 | XMS_ITS | Encounter Summary ---
Author Organization [employer] Address [address] [place] [address] Care Team Providers Care Ware Tester Name Role Phone Rosanne Santana MD Primary Care Provider [phone] Encounter Details Date Type Department Care Team (Late st Contact Info) Description 11/06/[address] [facility] Support Serv. (Adt Cardiology-[facility]) [address] 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
--- OUTSIDE RECORDS SUMMARY | 2025-01-17 23:38 | XMS_ITS | Encounter Summary ---
Author Organization [employer] Address [address] [place] [address] Care Team Providers Care Packer Fuser Name Role Phone Rosanne Santana MD Primary Care Provider [phone] Encounter Details Date Type Department Care Team (Late st Contact Info) Description 02/13/2006 Outpatient Historical [facility] Support Serv. 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
--- OUTSIDE RECORDS SUMMARY | 2025-01-17 23:38 | XMS_ITS | Encounter Summary ---
Author Organization [employer] Address [address] [place] [address] Care Team Providers Care General Dentist Name Role Phone Rosanne Santana MD Primary Care Provider [phone] Encounter Details Date Type Department Care Team (Latest Contact Info) Description 01/17/2003 Outpatient [facility] [address] [place] [address] & [place] [address] Rosanne Santana MD [address] [place] [address] PURE HYPERCHOLESTEROLEM (Primary Dx) Social History Tobacco Use Types Packs/Day Years Used Date Smoking Tobacco: Never Assessed Sex and Gender Information Value Date Recorded Sex Assigned at Not on file Legal Sex Male 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
--- OUTSIDE RECORDS SUMMARY | 2025-01-17 23:38 | XMS_ITS ---
Author Organization [facility] [address] Address [address] [place] [address] Care Team Providers Care College Teacher Name Role Phone Nikky Reyes MD Primary Care Provider Venkat Vivar DO Unavailable [phone] Kwaku Martin MD Unavailable [phone] Richard Hargrove MD Unavailable [phone] Adelso Quiñones MD Unavailable [phone] Brenton Cabrera MD Unavailable [phone] Active Problems Problem Noted Date Diagnosed Date [...] drive in the states of [place] and [place] based on his visual field deficit. We [...]
--- OUTSIDE RECORDS SUMMARY | 2025-01-17 23:38 | XMS_ITS | Clinical Summary ---
Author Organization [facility] Address [address] 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 Gender Identity Not on file Sexual Orientation Not on file Plan of Treatment Health Maintenance Due Date Last Done Comments DTAP/TDAP/TD VACCINES (1 - Tdap) 02/01/1967 PNEUMOCOCCAL VACCINE 50+ YEARS (1 of 1 - PCV) 02/01/19 98 ZOSTER VACCINE (1 of 2) 02/01/1998 RSV VACCINE (60+ or ) (1 - 1-dose 75+ series) 02/01/2023 INFLUENZA VACCINE (#1) 2024 Insurance [facility] BL[facility]/TRUE BLUE PPO Care Teams Field Care Coordinator Relationship Specialty Start Date End Date Rosanne Santana MD [address] [place] [address] PCP - General 10/24/03
--- OUTSIDE RECORDS SUMMARY | 2025-01-17 23:38 | XMS_ITS | Encounter Summary ---
Author Organization [facility] Address 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
--- OUTSIDE RECORDS SUMMARY | 2025-01-17 23:38 | XMS_ITS | Encounter Summary ---
Author Organization [employer] Address [address] [place] [address] Care Team Providers Care Steamship Agent Name Role Phone Rosanne Santana MD Primary Care Provider [phone] Encounter Details Date Type Department Care Team (Late st Contact Info) Description 12/02/2001 [facility] [address] 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
--- OUTSIDE RECORDS SUMMARY | 2025-01-17 23:38 | XMS_ITS | Encounter Summary ---
Author Organization [employer] Address [address] [place] [address] Care Team Providers Care Certified Drug Counselor Name Role Phone Rosanne Santana MD Primary Care Provider [phone] Encounter Details Date Type Department Care Team (Latest Contact Info) Description 05/16/2006 Outpatient Historical [facility] Rosanne Santana MD [address] [place] [address] AMI Inferolateral Wall (CMS/HCC) (Primary Dx) Social History Tobacco Use Types Packs/Day Years Used Date Smoking Tobacco: Never Assessed Sex and Gender Information Value Date Recorded Sex Assigned at Not on file 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
[2025-01-18] VITALS (40 sets, daily range): BP systolic 91–135; BP diastolic 56–82; PULSE 72–90; RESP 12–21; O2SAT 93–100
--- NOTE | 2025-01-18 00:02 | ED_ITS ---
HPI - General Adult General Chief complaint: Abdominal Pain Stated complaint: abd pain Time Seen by Provider: 01/17/25 23:23 History of Present Illness HPI narrative: 74-year-old male with a past medical history including coronary disease, cardiomyopathy, hypertension. Patient presents to the emergency department with pain in his right-sided rib cage. He describes this just underneath his right nipple area. Takes a deep breath and has worsening pain with movement. Describes this pleurisy per patient. Has a history of pneumonias previously and does not feel similar. No traumatic injuries. No overlying skin rash irritation. Recently did have several surgeries including brain surgery and bladder surgery at outside hospital. Recovered from these and completed his course at rehab. On aspirin daily but his surgeons are holding his Plavix indefinitely. No history of DVT or PE. No leg swelling or calf cramping/charley horse sensation. Was otherwise in his normal state of health. Called his primary care provider and has an appointment tomorrow morning to discuss this but he came to the ER tonight as he was having pain with deep breathing and movement. Related Data Home Medications ?Medication ?Instructions ?Recorded ?Confirmed ?Last Taken ?Type clopidogrel 75 mg tablet (Plavix) 75 mg PO DAILY 02/1908/12/24 05/29/24 History furosemide 40 mg tablet 40 mg PO QAM 10/17/2006/01/24 History rosuvastatin 20 mg tablet (Crestor) 20 mg PO QHS 11/2708/12/24 06/01/24 History metoprolol succinate 25 mg 25 mg PO DAILY 02/13/2306/01/24 History tablet,extended release 24 hr sacubitril 49 mg-valsartan 51 mg 0.5 tablet PO BID 08/12/24 06/01/24 History tablet (Entresto) nitroglycerin 0.4 mg sublingual 0.4 mg sublingual Q5M PRN chest 02/27/24 08/12/24 Unknown History tablet pain tamsulosin 0.4 mg capsule 0.4 mg PO DAILY 02/27/2406/01/24 History sildenafil 100 mg tablet 100 mg PO DAILY 08/12/24 Unknown History Allergies Allergy/AdvReac Type Severity Reaction Status Date / Time No Known Allergies Allergy Verified 09/08/24 05:35 Review of Systems 2 Review of Systems: As reviewed above in HPI [facility] Past Medical History Medical History History of intracerebral hemorrhage without residual deficit Adenomatous colon polyp 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) History of colon polyps History of myocardial infarction x3 per patient Bruises easily History of stress test Hypertension Fatty liver Environmental allergies Essential (primary) hypertension History of COVID-19 02/2020, 05/2021 Positive colorectal cancer screening using DNA-based stool test (~06/2019) Nonrheumatic mitral (valve) insufficiency (~2009) Nonrheumatic tricuspid (valve) insufficiency (~2009) Unspecified diastolic (congestive) heart failure (~2009) Ischemic dilated cardiomyopathy (~2009) Hypothyroidism Surgical History Surgical History H/O transurethral resection of bladder tumor (TURBT) (~11/2023) History of PTCA (~02/2010) 12/29/1997 @ 47 y/o LAD stent x1 11/08/2003 @ 53 y/o LAD stent x2 06/25/2007 @ 57 y/o PCI diagonal 05/21/2006 @ 56 years: PCI to LAD 10/23/2004 @ 54 years PTCA to OM 02/2010 :last stent 09/2016: PCI to LAD Dr. Santana 2019 Patient states he has a total of 15 stents (?) History of cholecystectomy (~03/2011) Family History Family History Father Heart disease Mother Heart disease Sibling Heart disease Other Family history of coronary artery disease Social History Social History Smoking packs per day: 3 Smoking cigarettes per day: 60.0 Years smoked: 15 Smoking pack-years: 45.00 Smoking status: Former smoker Tobacco type: cigarettes Smoking end date: 03/31/77 Alcohol intake: never Substance use: never Substance use type: does not use Lack of Transportation: No Lack of Food: Never True Current Housing: Decline to Answer Concerned About Future Housing: No Difficulty Paying Gas/Electric Bills: No Difficulty Paying for Meds: No Currently Unemployed: No Education: High School Diploma/GED Difficulty w/ Childcare or Family Care: No Living arrangements: with family Additional living arrangements comments: 2nd marriage: fathered 2 sons from first marriage Occupation/Education: retired 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 Mucous membranes moist. NECK: Supple. CHEST: Clear to auscultation. No respiratory distress or tachypnea. No chest wall tenderness or overlying rash or lesions. HEART: [Regular rate and rhythm]. No murmur heard. [Normal peripheral pulses.] ABDOMEN: [Soft, nondistended], [nontender], [No rigidity or guarding] EXTREMITIES: Normal range of motion. Strong symmetric pulses, no edema. No signs of calf asymmetry DVT. SKIN: Warm, dry, no rash. NEURO: [No focal deficits]. Alert and oriented [x3.] PSYCH: [Normal mood and affect.] Course Vital Signs Vital signs: Vital Signs Temperature 36.5 C 01/17/25 22:32 Pulse Rate 90 01/17/25 22:32 Respiratory Rate 18 01/17/25 22:32 Blood Pressure 115/66 01/17/25 22:32 Pulse Oximetry 98 01/17/25 22:32 Oxygen Delivery Room Air 01/17/25 22:32 Temperature 36.5 C 01/17/25 22:32 Pulse Rate 90 01/17/25 22:32 Respiratory Rate 18 01/17/25 22:32 Blood Pressure 115/66 01/17/25 22:32 Pulse Oximetry 98 01/17/25 22:32 Oxygen Delivery Room Air 01/17/25 22:32 Medical Decision Making MDM Narrative Medical decision making narrative: 74-year-old male with a past medical history including coronary disease, cardiomyopathy, hypertension. Patient presents to the emergency department with pain in his right-sided rib cage. He describes this just underneath his right nipple area. Takes a deep breath and has worsening pain with movement. Describes this pleurisy per patient. Has a history of pneumonias previously and does not feel similar. No traumatic injuries. No overlying skin rash irritation. Recently did have several surgeries including brain surgery and bladder surgery at outside hospital. Recovered from these and completed his course at rehab. On aspirin daily but his surgeons are holding his Plavix indefinitely. No history of DVT or PE. No leg swelling or calf cramping/charley horse sensation. Was otherwise in his normal state of health. Called his primary care provider and has an appointment tomorrow morning to discuss this but he came to the ER tonight as he was having pain with deep breathing and movement. Patient's exam appears benign. Clear to auscultation. No respiratory distress or tachypnea. No chest wall tenderness or overlying rash or lesions. No signs of it calf asymmetry or DVT on exam. Hemodynamically stable with normal vital signs. No tachycardia, fever, hypoxemia, blood pressure concerns. Patient has had some risk factors including recent surgeries and hospitalizations so we will evaluate for potential pneumonia, infectious process, less likely thromboembolic process such as PE but he is only on aspirin and no longer on Plavix. CT PE protocol ordered, laboratory studies ordered, chest x-ray and EKG obtained. Patient placed on cardiac monitoring and given Tylenol. Patient CT scan was independently reviewed by myself and I appreciate a large clot burden with right-sided pulmonary embolism likely source of patient's complaints and symptoms. Patient felt better after Tylenol but still having pain so he was given morphine with significant improvement. Remains hemodynamically stable without any oxygen needs. No tachycardia. Given patient's large clot burden and recent surgeries with neurosurgical interventions will have to discuss with his team at [facility] for anticoagulation given that he was told not to take Plavix anymore. Spoke to the [facility] transfer center who connected to the neurosurgeon Dr. Cabrera who knows the patient and his care. According to the surgeon he is postop over a month and given the PE is amenable to full-dose anticoagulation at this juncture. Patient was given heparin bolus and heparin infusion started. Recommendations to transfer to the [facility] for admission to the hospitalist service either step-down or telemetry. Waiting to discuss with the hospitalist service at this time. Patient and family updated on plan of care and comfortable with transfer upon completion of workup. Additional troponin and BNP added on and were negative. Spoke to the radiologist to confirm and PE burden but no signs of heart strain or other acute complications. Patient is accepted under Dr. Doe at [facility] in [place]. Patient remains hemodynamically stable. [facility] ambulance services arranged for transport this morning. Patient updated on plan of care and questions answered. Medical Records Medical records reviewed: Yes I reviewed the external patient's medical records. Vital Signs Vital Signs: Vital Signs Temperature 36.5 C 01/17/25 22:32 Pulse Rate 90 01/17/25 22:32 Respiratory Rate 18 01/17/25 22:32 Blood Pressure 115/66 01/17/25 22:32 Pulse Oximetry 98 01/17/25 22:32 Oxygen Delivery Room Air 01/17/25 22:32 Temperature 36.5 C 01/17/25 22:32 Pulse Rate 90 01/17/25 22:32 Respiratory Rate 18 01/17/25 22:32 Blood Pressure 115/66 01/17/25 22:32 Pulse Oximetry 98 01/17/25 22:32 Oxygen Delivery Room Air 01/17/25 22:32 Lab Data Lab results reviewed: Yes I reviewed the patient's lab results. 01/17/25 23:01 01/17/25 23:01 Labs: Lab Results 01/17/25 01/17/25 01/18/25 Range/Units 01:23 23:01 00:49 WBC 8.3 (4.5-10.0) K/mm3 RBC 4.02 L (4.6-6.20) M/mm3 Hgb 12.8 L (14.0-18.0) g/dL Hct 38.7 L (42.0-52.0) % MCV 96.3 (80-100) fl MCH 31.8 (26-34) pg MCHC 33.1 (32-36) g/dl RDW 16.7 H (11.5-14.5) % Plt Count 159 (150-375) k/mm3 MPV 9.1 (7.4-10.4) fl Immature Gran % (Auto) 1.5 H (0-0.5) % Neut % (Auto) 73.5 H (45.5-73.1) % Lymph % (Auto) 11.6 L (18.3-44.2) % Banner % (Auto) 11.5 H (2.6-8.5) % Eos % (Auto) 1.3 (0-4.4) % Baso % (Auto) 0.6 (0.2-1.2) % Lymph # (Auto) 0.96 (0.9-3.2) K/mm3 Banner # (Auto) 1.0 H (0.1-0.6) K/mm3 Eos # (Auto) 0.1 (0-0.3) K/mm3 Baso # (Auto) 0.1 (0.0-0.1) K/mm3 Abs Immat Gran (auto) 0.12 H (0.00-0.031) K/mm3 Absolute Neuts (auto) 6.1 (1.3-6.7) K/mm3 Absolute Nucleated RBC 0.000 (0.0-0.012) K/mm3 Nucleated RBC % 0.0 (0.0-0.2) % PT 13.6 (11.1-14.7) Seconds INR 1.0 APTT 29.0 (22.3-36.8) Seconds Sodium 133 L (137-145) mmol/L Potassium 4.4 (3.4-5.0) mmol/L Chloride 99 (98-107) mmol/L Carbon Dioxide 26 (22-30) mmol/L Anion Gap 8 (4-12) mmol/L BUN 20 (9-20) mg/dL Creatinine 0.99 (0.7-1.3) mg/dL Estim Creat Clear Calc 63 ml/min Estimated GFR > 60 (59 - ) Glucose 172 H (65-110) mg/dL Calcium 9.2 (8.4-10.2) mg/dL Total Bilirubin 0.7 (0.2-1.3) mg/dL AST 24 (17-59) U/L ALT 44 (6-50) U/L Alkaline Phosphatase 99 (38-126) U/L Troponin I < 0.012 (0.000-0.034) ng/mL NT-Pro-B Natriuret Pep 122 H (19.9-100) pg/mL Total Protein 7.5 (6.3-8.2) g/dL Albumin 4.0 (3.5-5.1) g/dL Lipase 107 (23-300) U/L Urine Color Yellow (Yellow) Urine Appearance Clear (Clear) Urine pH 5.5 (5.0-9.0) Ur Specific [place] 1.041 H (1.001-1.035) Urine Protein Negative (Negative) mg/dL Urine Glucose (UA) 3+ H (Negative) mg/dL Urine Ketones Negative (Negative) mg/dL Ur Blood (Man) Negative (Negative) Urine Nitrate Negative (Negative) Urine Bilirubin Negative (Negative) Urine Urobilinogen 0.2 (<2.0) mg/dL Leukocyte Esterase Rfl Negative (Negative) MELINDA/UL Imaging Data Attestation: I personally reviewed and interpreted this imaging study as follows: My impression: Right PE Critical Care Time Critical Care Time Critical Care Time: Yes Total Critical Care Time: 35 Discharge Plan Discharge Clinical Impression: Acute pulmonary embolism, History of nontraumatic intraparenchymal cerebral hemorrhage Patient Disposition: Acute Care Hospital Condition: Stable Instructions: Antibiotic Form Patient Language: Congolese Prescriptions: No Action clopidogrel [Plavix] 75 mg tablet 75 mg PO DAILY rosuvastatin [Crestor] 20 mg tablet 20 mg PO QHS metoprolol succinate 25 mg tablet extended release 24 hr 25 mg PO DAILY Entresto 49-51 mg tablet 0.5 tablet PO BID tamsulosin 0.4 mg capsule 0.4 mg PO DAILY nitroglycerin 0.4 mg tablet, sublingual 0.4 mg sublingual Q5M PRN (Reason: chest pain) sildenafil 100 mg tablet 100 mg PO DAILY furosemide 40 mg tablet 40 mg PO QAM levothyroxine [Synthroid] 75 mcg tablet 75 mcg PO DAILY Qty: 90 1RF Follow-up/Referrals: Maria Reyes MD [Primary Care Provider, [facility]] Time of Disposition: 04:54
[2025-01-18] MEDS: ACETAMINOPHEN 500 MG TABLET 1000 MG PO (00:38)
[2025-01-18] MEDS: MORPHINE SULFATE (*CRX) 4 MG/ML INJ IV PUSH (00:39)
[2025-01-18 01:16] LABS: Add Urine Microscopic? NO; Appearance Urine Clear (Clear); Glucose Urine UA 3+ mg/dL (Negative); Leukocyte Esterase Ur Negative LEU/UL (Negative); Nitrate Urine Negative (Negative); Specific Grav Ur 1.041 (1.001-1.035)
[2025-01-18 01:18] LABS: NT Pro B Type Natriuretic Pept 122 pg/mL (19.9-100)
[2025-01-18] MEDS: HEPARIN SOD/D5W 100 UNITS/ML 25,000 UNITS/250 ML BAG 15 UNITS IV CONT (01:41)
[2025-01-18 01:45] LABS: Troponin I < 0.012 ng/mL (0.000-0.034)
[2025-01-18 01:45] LABS: INR 1.0; Partial Thromboplastin Time 29.0 Seconds (22.3-36.8); Prothrombin Time 13.6 Seconds (11.1-14.7)
== END 2025-01-18 05:00 | disposition short-term general hospital (02) ==
PROVIDERS: Emergency Provider Student in an Organized Health Care Education/Training Program; PCP Family Medicine
DX: I26.99 Other pulmonary embolism without acute cor pulmonale (principal); K76.89 Other specified diseases of liver; M47.813 Spondylosis without myelopathy or radiculopathy, cervicothoracic region; R94.31 Abnormal electrocardiogram [ECG] [EKG]; I11.9 Hypertensive heart disease without heart failure; I25.2 Old myocardial infarction; E03.9 Hypothyroidism, unspecified; Z79.82 Long term (current) use of aspirin; I25.10 Atherosclerotic heart disease of native coronary artery without angina pectoris; Z87.891 Personal history of nicotine dependence
CPT/HCPCS: 36415; 71275; 80053; 81003; 83690; 83880; 84484; 85025; 85610; 85730; 93005; 96374; 99291; A9270; J1644; J2270; Q9967